=== PATIENT | male | born 1945 | race Caucasian/White ===

== ENCOUNTER 2023-07-16 10:47 | Outpatient (OUT) | payer MEDICARE, SELFPAY ==
[2023-07-16 11:51] LABS: Basophils Percent Auto 0.3 % (0.2-2.0); Eosinophils Absolute Auto 0.1 10^3/uL (0.0-0.7); Hematocrit 29.4 % (42.0-54.0); Immature Granulocytes Abs Auto 0.02 10^3/uL (0.00-0.03); Immature Granulocytes Pct Auto 0.6 % (0.0-0.5); Lymphocytes Absolute Auto 0.4 10^3/uL (1.2-3.8); Lymphocytes Percent Auto 11.5 % (20.5-60.0); Mean Corpuscular Hemoglobin 33.9 pg (25.9-34.0); Mean Corpuscular Volume 99.7 fL (80.0-94.0); Mean Platelet Volume 9.8 fL (9.5-13.5); Monocytes Absolute Auto 0.2 10^3/uL (0.3-0.8); Monocytes Percent Auto 6.4 % (1.7-12.0); Neutrophils Absolute Auto 2.8 10^3/uL (1.4-6.5); Neutrophils Percent Auto 79.2 % (43.0-75.0); Platelet Count 72 10^3/uL (150-450); Red Blood Count 2.95 10^6/uL (4.70-6.10); Red Cell Distribution Width 14.8 % (11.0-15.0); White Blood Count 3.6 10^3/uL (4.0-11.0)
[2023-07-16 12:03] LABS: Estimated Average Glucose 91 mg/dL; Glycohemoglobin A1C 4.8 % (4.5-6.2)
[2023-07-16 12:06] LABS: Alanine Aminotransferase 38 U/L (16-63); Anion Gap 11.7; BUN Creatinine Ratio 28.7; Calcium 9.3 mg/dL (8.5-10.1); Carbon Dioxide 28.3 mmol/L (21.0-32.0); Chloride 107 mmol/L (98-107); Cholesterol 128 mg/dL (<=200); Estimated GFR (African America >60 (>=60); Estimated GFR (Non-African Ame >60 (>=60); Glucose 193 mg/dL (74-106); HDL Cholesterol 63 mg/dL (40-60); Sodium 143 mmol/L (136-145); Triglycerides 104 mg/dL (<=150); VLDL CHOLESTEROL 20.8 mg/dL
[2023-07-16 13:49] LABS: Prostate Specific Antigen Scrn <0.13 ng/mL (<=4.00)
== END 2023-07-16 10:48 | disposition home or self-care (01) ==
PROVIDERS: PCP Internal Medicine; Visit Provider Internal Medicine
DX: E78.00 Pure hypercholesterolemia, unspecified (principal); D61.818 Other pancytopenia; Z12.5 Encounter for screening for malignant neoplasm of prostate; I10 Essential (primary) hypertension; E11.65 Type 2 diabetes mellitus with hyperglycemia
CPT/HCPCS: 36415; 80048; 80061; 83036; 84460; 85025; G0103

== ENCOUNTER 2024-02-14 17:34 | Observation (INO) | payer MEDICARE, SELFPAY ==
[2024-02-14] VITALS (22 sets, daily range): BP systolic 176–205; BP diastolic 60–86; PULSE 72–88; TEMP 37.1–38; O2SAT 96–99; BMI 28.7
--- NOTE | 2024-02-14 17:43 | XR_ITS ---
The [address] [address] Patient Name: NA GOULD MRN: [id number] date: 1945 Sex: M Assigned Patient Location: ER Current Patient Location: ED.MAIN Accession/Order Number: [id number] Exam Date: 02/14/2024 18:02 Report Date: 02/14/2024 18:55 At the request of: JUAN JOSÉ PA Procedure: XR chest 1V EXAM: XR chest 1V HISTORY: weak COMPARISON: 10/04/2022 TECHNIQUE: Chest X-ray AP, 1 view FINDINGS: Support devices: None. Lungs/pleura: No consolidation, effusion, or pneumothorax. Heart and mediastinum: Normal contours. Bones: No acute abnormality identified. XR/XR chest 1V Impression: No radiographic evidence of acute cardiopulmonary process. Electronically authenticated by: MELA MENDOZA Date: 02/14/2024 18:55
--- NOTE | 2024-02-14 17:43 | ECG_ITS ---
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
[2024-02-14 18:07] LABS: Hematocrit 28.2 % (42.0-54.0); Hemoglobin 9.6 g/dL (14.0-18.0); Mean Corpuscular Hemoglobin 34.2 pg (25.9-34.0); Mean Corpuscular Volume 100.4 fL (80.0-94.0); Mean Platelet Volume 10.4 fL (9.5-13.5); Platelet Count 65 10^3/uL (150-450); Red Blood Count 2.81 10^6/uL (4.70-6.10); White Blood Count 4.5 10^3/uL (4.0-11.0)
[2024-02-14 18:16] LABS: Anion Gap 10.1; BUN Creatinine Ratio 25.9; Calcium 8.7 mg/dL (8.5-10.1); Chloride 106 mmol/L (98-107); Estimated GFR (African America >60 (>=60); Estimated GFR (Non-African Ame >60 (>=60); Glucose 251 mg/dL (74-106); Potassium 4.1 mmol/L (3.5-5.1); Sodium 142 mmol/L (136-145)
[2024-02-14 18:23] LABS: Band Neutrophils Absolute 0.1 10^3/uL (0.0-0.3); Basophils Abs Manual 0.04 10^3/uL (0.00-0.10); Lymphocytes Absolute Manual 0.04 10^3/uL (1.20-3.80); Monocytes Absolute Manual 0.18 10^3/uL (0.30-0.80); Segmented Neut Absolute Manual 4.14 10^3/uL (1.4-6.5)
--- NOTE | 2024-02-14 18:52 | ED.WEAKNESS1 ---
HPI - Weakness General Chief complaint: Weakness Stated complaint: WEAKNESS Time Seen by Provider: 02/14/24 17:41 Source: patient Mode of arrival: ambulance History of Present Illness HPI Narrative: 78-year-old male presents to the emergency department for weakness. He was apparently sitting on the toilet for about an hour trying to have a bowel movement. His family thought he was weak and short of breath. He does not seem to have any current complaints. He is a poor historian. He cannot give specifics as to the timeline. Related Data Home Medications ?Medication ?Instructions ?Recorded ?Confirmed allopurinol 300 mg tablet 300 mg PO QDAY 02/14/24 02/14/24 amlodipine 5 mg tablet 5 mg PO QDAY 02/14/24 02/14/24 citalopram 20 mg tablet 20 mg PO QDAY 02/14/24 02/14/24 donepezil 10 mg tablet 10 mg PO .qhs 02/14/24 02/14/24 insulin aspar prot-insulin aspart See Rx Instructions subcut .COMPLEX 02/14/24 02/14/24 100 unit/mL (70-30) subcutaneous pen (Novolog Mix 70-30FlexPen U-100) isosorbide mononitrate 30 mg 30 mg PO QDAY 02/14/24 02/14/24 tablet,extended release 24 hr losartan 50 mg tablet 50 mg PO BID 02/14/24 02/14/24 memantine 28 mg capsule 28 mg PO Q24H 02/14/24 02/14/24 sprinkle,extended release 24hr multivitamin (Daily Multi-Vitamin 1 tab PO DAILY 02/14/24 02/14/24 tablet) oxcarbazepine 300 mg tablet 900 mg PO BID 02/14/24 02/14/24 simvastatin 20 mg tablet 20 mg PO QDAY 02/14/24 02/14/24 Allergies Allergy/AdvReac Type Severity Reaction Status Date / Time Unable to Assess Allergy Verified 02/14/24 17:39 Review of Systems ROS Narrative Unobtainable, age Exam Narrative Exam Narrative: Nurses note and vital signs reviewed and patient is not hypoxic. General: The patient appears well and in no apparent distress. Patient is resting comfortably on cart. Skin: Warm, dry, no pallor noted. There is no rash noted. Head: Normocephalic, atraumatic Eye: Normal conjunctiva, no drainage Ears, Nose, Mouth, and Throat: oral mucosa is moist. Nares patent. Cardiovascular: Regular Rate and Rhythm Respiratory: Patient is in no distress, no accessory muscle use, lungs are clear to auscultation, no wheezing, rales or rhonchi Back: non-tender GI: Soft and nontender Musculoskeletal: The patient has no evidence of calf tenderness, no pitting edema, symmetrical pulses noted bilaterally Neurological: Awake and alert. He can tell me his name he knows he is at the hospital. Psychiatric: Cooperative Constitutional Vital Signs, click to edit/add: Last Vital Signs Temp 98.8 F 02/14/24 17:36 Pulse 74 02/14/24 18:02 Resp 17 02/14/24 18:02 BP 182/81 H 02/14/24 17:41 Pulse Ox 97 02/14/24 18:02 O2 Del Method Room Air 02/14/24 17:36 Course Vital Signs Vital signs: Vital Signs Temperature 98.8 F 02/14/24 17:36 Pulse Rate 74 02/14/24 17:36 Respiratory Rate 24 H 02/14/24 17:36 Blood Pressure 197/60 H 02/14/24 17:36 Pulse Oximetry 98 02/14/24 17:36 Oxygen Delivery Method Room Air 02/14/24 17:36 Temperature 98.8 F 02/14/24 17:36 Pulse Rate 74 02/14/24 18:02 Respiratory Rate 17 02/14/24 18:02 Blood Pressure 182/81 H 02/14/24 17:41 Pulse Oximetry 97 02/14/24 18:02 Oxygen Delivery Method Room Air 02/14/24 17:36 MDM - Weakness MDM Narrative Medical decision making narrative: Tests are ordered and the patient is signed out to Dr. Agustin at change of shift Differential Diagnosis Differential diagnosis: Likely anemia, hypoglycemia and dehydration Lab Data Attestation: I reviewed the patient's lab results. Labs: Lab Results 02/14/24 Range/Units 18:00 WBC 4.5 (4.0-11.0) 10^3/uL RBC 2.81 L (4.70-6.10) 10^6/uL Hgb 9.6 L (14.0-18.0) g/dL Hct 28.2 L (42.0-54.0) % MCV 100.4 H (80.0-94.0) fL MCH 34.2 H (25.9-34.0) pg MCHC 34.0 (29.9-35.2) g/dL RDW 15.0 (11.0-15.0) % Plt Count 65 L (150-450) 10^3/uL MPV 10.4 (9.5-13.5) fL Seg Neuts % (Manual) 92.0 Band Neutrophils % 2.0 (0-5) % Lymphocytes % (Manual) 1.0 L (20.5-60.0) % Monocytes % (Manual) 4.0 (1.7-12.0) % Eosinophils % (Manual) 0.0 L (0.9-7.0) % Basophils % (Manual) 1.0 (0.2-2.0) % Neutrophils # (Manual) 4.14 (1.4-6.5) 10^3/uL Band Neutrophils # 0.1 (0.0-0.3) 10^3/uL Lymphocytes # (Manual) 0.04 L (1.20-3.80) 10^3/uL Monocytes # (Manual) 0.18 L (0.30-0.80) 10^3/uL Eosinophils # (Manual) 0.00 (0.00-0.70) 10^3/uL Basophils # (Manual) 0.04 (0.00-0.10) 10^3/uL Sodium 142 (136-145) mmol/L Potassium 4.1 (3.5-5.1) mmol/L Chloride 106 (98-107) mmol/L Carbon Dioxide 30.0 (21.0-32.0) mmol/L Anion Gap 10.1 BUN 29.0 H (7.0-18.0) mg/dL Creatinine 1.12 (0.70-1.30) mg/dL Est GFR ( Amer) >60 (>=60) Est GFR (Non-Af Amer) >60 (>=60) BUN/Creatinine Ratio 25.9 Glucose 251 H (74-106) mg/dL Calcium 8.7 (8.5-10.1) mg/dL ECG Data Attestation: I personally reviewed and interpreted this ECG as follows: (EKG on my interpretation shows sinus rhythm with first-degree block and no acute change) Discharge Plan Discharge Patient Disposition: Still a Patient
[2024-02-14 20:42] LABS: Bilirubin Urine NEGATIVE (NEGATIVE); Blood Urine LARGE (NEGATIVE); Clarity Urine CLEAR (CLEAR); Color Urine YELLOW (YELLOW); Glucose Urine UA 250 mg/dL (NEGATIVE); Ketones Urine NEGATIVE (NEGATIVE); Leukocyte Esterase Urine NEGATIVE (NEGATIVE); Nitrite Urine POSITIVE (NEGATIVE); Protein Urine >=300 mg/dL (NEG/TRACE); Specific Gravity Urine 1.025 (1.005-1.025); Urobilinogen Urine 0.2 EU/dL (0.2-1.0); pH Urine 5.5 (5.0-9.0)
[2024-02-14 20:50] LABS: Amorphous Sediment Urine FEW; Bacteria Urine LARGE #/HPF (NONE SEEN); Cast Seen? NONE SEEN #/LPF (NONE SEEN); Crystals Seen? Seen #/HPF (None Seen); Mucus Urine NONE SEEN (NONE SEEN); RBC Urine 0-2 #/HPF (0-2); Squamous Epithelial Cell Urine RARE #/LPF (NONE/RARE); Urine Culture Indicated YES
--- NOTE | 2024-02-14 21:03 | CT_ITS ---
The [address] [address] Patient Name: NA GOULD MRN: [id number] date: 1945 Sex: M Assigned Patient Location: ER Current Patient Location: ER Accession/Order Number: [id number] Exam Date: 02/14/2024 21:15 Report Date: 02/14/2024 21:51 At the request of: ANSELMO LOONEY Procedure: CT head/brain wo con EXAM: CT head/brain wo con CLINICAL INDICATION: altered mental state TECHNIQUE: Unenhanced computerized tomography of the head was performed. Automated dose reduction technique was employed. COMPARISON: None. FINDINGS: The ventricles are normal in size, configuration, and position for age. There is no intra- or extra-axial mass, hemorrhage, or fluid collection. No areas of abnormal mass effect or attenuation are noted. There is mild subcortical, deep, and periventricular white matter low-attenuation, compatible with changes of chronic small vessel ischemic disease. Visualized paranasal sinuses are free of mucosal disease. No depressed calvarial fracture. CT/CT head/brain wo con IMPRESSION: No acute intracranial abnormality noted. Electronically authenticated by: CORTEZ MCCARTHY Date: 02/14/2024 21:51
[2024-02-14] MEDS: CEFTRIAXONE 1,000 MG in 0.9 % SODIUM CHLORIDE 50 ML 100 MG IV (21:52)
[2024-02-15 00:23] VITALS: BMI 24.6
[2024-02-15 01:16] VITALS: BP 187/74
[2024-02-15] MEDS: HYDRALAZINE HCL 20 MG/ML VIAL 10 MG IVP ×2 (01:16→06:07)
[2024-02-15] MEDS: DONEPEZIL HCL 10 MG TABLET PO (01:16)
[2024-02-15] MEDS: 0.9 % SODIUM CHLORIDE 1,000 ML 100 ML IV ×2 (01:17→11:17)
[2024-02-15 04:59] VITALS: PULSE 75; TEMP 36.6; O2SAT 98
[2024-02-15 05:39] LABS: Basophils Percent Auto 0.2 % (0.2-2.0); Hematocrit 29.3 % (42.0-54.0); Hemoglobin 9.7 g/dL (14.0-18.0); Immature Granulocytes Abs Auto 0.03 10^3/uL (0.00-0.03); Immature Granulocytes Pct Auto 0.6 % (0.0-0.5); Lymphocytes Absolute Auto 0.2 10^3/uL (1.2-3.8); Lymphocytes Percent Auto 5.1 % (20.5-60.0); Mean Corpuscular HGB Conc 33.1 g/dL (29.9-35.2); Mean Corpuscular Hemoglobin 33.3 pg (25.9-34.0); Mean Corpuscular Volume 100.7 fL (80.0-94.0); Mean Platelet Volume 10.6 fL (9.5-13.5); Monocytes Absolute Auto 0.3 10^3/uL (0.3-0.8); Monocytes Percent Auto 7.2 % (1.7-12.0); Neutrophils Absolute Auto 4.1 10^3/uL (1.4-6.5); Neutrophils Percent Auto 86.9 % (43.0-75.0); Platelet Count 60 10^3/uL (150-450); Red Blood Count 2.91 10^6/uL (4.70-6.10); Red Cell Distribution Width 15.2 % (11.0-15.0); White Blood Count 4.7 10^3/uL (4.0-11.0)
[2024-02-15 06:02] LABS: Alanine Aminotransferase 31 U/L (16-63); Albumin Globulin Ratio 1.1; Albumin Level 3.4 g/dL (3.4-5.0); Alkaline Phosphatase 90 U/L (46-116); Anion Gap 12.4; Aspartate Amino Transferase 28 U/L (15-37); BUN Creatinine Ratio 24.5; Bilirubin Total 0.5 mg/dL (0.2-1.0); Calcium 9.1 mg/dL (8.5-10.1); Carbon Dioxide 28.2 mmol/L (21.0-32.0); Chloride 107 mmol/L (98-107); Estimated GFR (African America >60 (>=60); Estimated GFR (Non-African Ame >60 (>=60); Globulin 3.1 g/dL; Glucose 184 mg/dL (74-106); Potassium 3.6 mmol/L (3.5-5.1); Sodium 144 mmol/L (136-145); Total Protein 6.5 g/dL (6.4-8.2)
[2024-02-15 06:06] VITALS: BP 170/55
[2024-02-15 08:10] VITALS: BP 158/62; PULSE 83; TEMP 36.4; O2SAT 98
[2024-02-15] MEDS: AMLODIPINE BESYLATE 5 MG TABLET PO (08:23)
[2024-02-15] MEDS: MULTIVITAMIN TABLET 1 TAB PO (08:23)
[2024-02-15] MEDS: ALLOPURINOL 300 MG TABLET PO (08:23)
[2024-02-15] MEDS: ATORVASTATIN CALCIUM 10 MG TABLET PO (08:23)
[2024-02-15] MEDS: MEMANTINE HCL 28 MG CAP XR PO (08:23)
[2024-02-15] MEDS: OXcarbazepine 300 MG TABLET 900 MG PO (08:23)
[2024-02-15] MEDS: LOSARTAN POTASSIUM 50 MG TABLET PO (08:23)
[2024-02-15] MEDS: CITALOPRAM HYDROBROMIDE 20 MG TABLET PO (08:23)
[2024-02-15] MEDS: ISOSORBIDE MONONITRATE 30 MG TAB.ER.24H PO (08:23)
[2024-02-15] MEDS: INSULIN ASPART PROT/INSULN ASP 70/30 300 UNIT/3 ML INSULN.PEN 26 UNIT SUBQ (08:24)
[2024-02-15 08:45] LABS: Glucometer 197 mg/dL (74-106)
--- NOTE | 2024-02-15 10:13 | CM.NOTE ---
Rounds made with Dr. Carroll, pt will discharge to home today on oral antibiotics. PT to evaluate prior to discharge for recommendations. Pt will f/u with laboratory tech.
[2024-02-15 11:22] VITALS: BP 157/63; PULSE 65; O2SAT 97
--- NOTE | 2024-02-15 12:05 | SWNOTE1 ---
SW received call from therapy and they are recommending skilled facility for rehab. Case management spoke with pt and as pt is in observation and does not have a medical diagnosis for inpatient. Pt/family would have to pay out of pocket for rehab. They are not able to do this, would like [facility] as he has had them in the past. Referral sent to [facility]. Referral included face sheet, ED note, H&P, provider notes, case management report, PT/OT notes.
[2024-02-15 12:13] LABS: Glucometer 160 mg/dL (74-106)
--- NOTE | 2024-02-15 12:13 | CM.NOTE ---
Discussed with pt and recommendations from PT for skilled therapy. verbalizes understanding and asks if insurance will cover. Explained to about Medicare and 3 day inpatient hospital stay required for pt to meet for inpatient skilled. Explained that pt could go to skilled at discharge but it would be an out of pocket expense. states [facility] and liked the services they offered. tearful regarding stress on her related to pt's dementia. Comfort and support provided to and . Pt and in agreement to discharge home with HH services instead of inpatient skilled therapy.
--- NOTE | 2024-02-15 12:41 | PM.HP ---
HPI H&P: HPI History of Present Illness Chief complaint: WEAKNESS ALTERED MENTAL STATUS Narrative: History of presenting illness and hospital course: 78-year-old male with history of dementia, who lives with his at home was brought in by his for generalized weakness/lightheadedness/dizziness and inability to get up from his bed because of overall weakness. Workup in ED was consistent with possible UTI and patient was started on IV fluids, IV antibiotics and admitted for overnight observation for monitoring. He was seen earlier today and was more or less close to his baseline according to the who was at his bedside. Patient is stable for discharge medically on oral antibiotic. He will benefit from outpatient physical therapy/Occupational Therapy. Opioid HPI Opioid Management Most Recent Opioid Data: Last Pain Assessment 02/15/24 11:19 Last ORT Total Score 0 02/15/24 00:23 Last ORT Risk Category Low Risk 02/15/24 00:23 Review of Systems ROS Status of ROS 10 or more systems reviewed and unremarkable except as noted in history and below [facility] Medical History (Updated 02/15/24 @ 12:48 by Shaikh Glen MD) PE (pulmonary thromboembolism) ?I26.99 - Other pulmonary embolism without acute cor pulmonale (ICD-10) Syncope ?R55 - Syncope and collapse (ICD-10) Dementia ?F03.90 - Unspecified dementia, unspecified severity, without behavioral disturbance, psychotic disturbance, mood disturbance, and anxiety (ICD-10) History of stent insertion of renal artery ?Z98.890 - Other specified postprocedural states (ICD-10) Kidney stone ?N20.0 - Calculus of kidney (ICD-10) Anemia ?D64.9 - Anemia, unspecified (ICD-10) Acute hemorrhoid ?K64.9 - Unspecified hemorrhoids (ICD-10) Colon cancer ?C18.9 - Malignant neoplasm of colon, unspecified (ICD-10) Hypertension ?I10 - Essential (primary) hypertension (ICD-10) Diabetes ?E11.9 - Type 2 diabetes mellitus without complications (ICD-10) Surgical History (Updated 02/15/24 @ 01:52 by Elda Traylor RN) S/P CABG x 4 ?Z95.1 - Presence of aortocoronary bypass graft (ICD-10) History of colon surgery ?Z98.890 - Other specified postprocedural states (ICD-10) Family History (Updated 02/15/24 @ 00:22 by Elda Traylor RN) Uncle Family history of CHF (congestive heart failure) Family history of myocardial infarction Other Family history of COPD (chronic obstructive pulmonary disease) Family history of cancer Social History (Updated 02/15/24 @ 00:23 by Elda Traylor RN) Within the past year, how often did you have a drink containing alcohol: never Within the past year, how many standard drinks containing alcohol did you have on a typical day: 1 or 2 Within the past year, how often did you have six or more drinks on one occasion: never Total score: 0 Score interpretation: A score less than 4 is consistent with normal alcohol consumption. Smoking status: Former smoker Non-prescribed substance use: denies use Highest level of school completed/degree received: high school graduate Are you now , , , , never or living with a partner: In a typical week, how many times do you talk on the telephone with family, friends, or neighbors: twice per week How often do you get together with friends or relatives: twice per week Do you think of yourself as: straight/heterosexual Gender Identity: male Meds Home Medications and Allergies Home Medications ?Medication ?Instructions ?Recorded ?Confirmed ?Type allopurinol 300 mg tablet 300 mg PO QDAY 02/14/24 02/14/24 History amlodipine 5 mg tablet 5 mg PO QDAY 02/14/24 02/14/24 History citalopram 20 mg tablet 20 mg PO QDAY 02/14/24 02/14/24 History donepezil 10 mg tablet 10 mg PO BEDTIME 02/14/24 02/15/24 History insulin aspar prot-insulin aspart See Rx Instructions subcut .COMPLEX 02/14/24 02/14/24 History 100 unit/mL (70-30) subcutaneous pen (Novolog Mix 70-30FlexPen U-100) isosorbide mononitrate 30 mg 30 mg PO QDAY 02/14/24 02/14/24 History tablet,extended release 24 hr losartan 50 mg tablet 50 mg PO BID 02/14/24 02/14/24 History memantine 28 mg capsule 28 mg PO Q24H 02/14/24 02/14/24 History sprinkle,extended release 24hr multivitamin (Daily Multi-Vitamin 1 tab PO DAILY 02/14/24 02/14/24 History tablet) oxcarbazepine 300 mg tablet 900 mg PO BID 02/14/24 02/14/24 History simvastatin 20 mg tablet 20 mg PO QDAY 02/14/24 02/14/24 History cefdinir 300 mg capsule 300 mg PO BID 5 days #10 caps 02/15/24 Rx Allergies Allergy/AdvReac Type Severity Reaction Status Date / Time Unable to Assess Allergy Verified 02/14/24 17:39 Exam Constitutional Vital Signs, click to edit/add: Last Vital Signs Temp 97.5 F L 02/15/24 08:10 Pulse 65 02/15/24 11:22 Resp 16 02/15/24 11:22 BP 157/63 H 02/15/24 11:22 Pulse Ox 97 02/15/24 11:22 O2 Del Method Room Air 02/15/24 11:22 Documenting provider has reviewed patient's vital signs: yes Common normals: no apparent distress and oriented x3 General appearance: cooperative HENMT Common normals: normocephalic and head/scalp atraumatic Head and scalp: normocephalic and atraumatic Eye Common normals: conjunctivae normal and no scleral icterus Conjunctiva: conjunctiva(e) normal Respiratory Common normals: normal respiratory effort and clear to auscultation bilaterally Effort & inspection: able to speak in complete sentences Auscultation: clear to auscultation bilaterally Cardio Common normals: regular rate, S1 normal heart sound and S2 normal heart sound Rate: regular rate Heart sounds: S1 normal and S2 normal GI Common normals: Normal to inspection, nondistended, normoactive bowel sounds present, soft to palpation, non-tender and no hepatosplenomegaly Palpation: soft and no hepatosplenomegaly Extremity Common normals: no clubbing, cyanosis or edema Neuro Common normals: oriented x3, moves all extremities and no focal motor deficits Psych Common normals: mental status grossly normal, denies hallucinations, denies homicidal ideation and denies suicidal ideation Results Labs Labs: Short CBC 02/14/24 02/15/24 Range/Units 18:00 05:10 WBC 4.5 4.7 (4.0-11.0) 10^3/uL Hgb 9.6 L 9.7 L (14.0-18.0) g/dL Hct 28.2 L 29.3 L (42.0-54.0) % Plt Count 65 L 60 L (150-450) 10^3/uL BMP 02/14/24 02/15/24 18:00 05:10 Sodium 142 144 Potassium 4.1 3.6 Chloride 106 107 Carbon Dioxide 30.0 28.2 BUN 29.0 H 24.0 H Creatinine 1.12 0.98 Glucose 251 H 184 H Calcium 8.7 9.1 Liver Function 02/15/24 Range/Units 05:10 Total Bilirubin 0.5 (0.2-1.0) mg/dL AST 28 (15-37) U/L ALT 31 (16-63) U/L Alkaline Phosphatase 90 (46-116) U/L Albumin 3.4 (3.4-5.0) g/dL Urine 02/14/24 Range/Units 20:30 Urine Color Yellow (YELLOW) Urine Clarity Clear (CLEAR) Urine pH 5.5 (5.0-9.0) Ur Specific [place] 1.025 (1.005-1.025) Urine Protein >=300 A (NEG/TRACE) mg/dL Urine Glucose (UA) 250 A (NEGATIVE) mg/dL Assessment and Plan Assessment and Plan (1) Altered mental state: Assessment and Plan: Likely secondary to UTI and dehydration. He was treated with IV fluids and IV Rocephin. Stable for discharge on oral antibiotics. Qualifiers: Altered mental status type: disorientation Qualified Code(s): R41.0 - Disorientation, unspecified (2) Generalized weakness: Assessment and Plan: Dehydration and UTI. I suspect some of it is because of progressive decline in his functional status because of dementia and frailty/old age. He is better than admission. He will benefit from outpatient physical therapy and Occupational Therapy. He is stable for discharge medically on oral antibiotics (3) UTI (urinary tract infection): Assessment and Plan: Initially treated with IV Rocephin. Will discharge on oral cefdinir. Follow-up urine cultures Qualifiers: Urinary tract infection type: acute cystitis Hematuria presence: without hematuria Qualified Code(s): N30.00 - Acute cystitis without hematuria (4) Dementia: Assessment and Plan: Severe dementia with confusion at baseline. On appropriate medications for it. Follow-up with neurology as outpatient Qualifiers: Dementia type: Alzheimer's Alzheimer's disease onset: late onset Dementia severity: severe Dementia behavioral or psychological symptom: without behavioral, psychotic, or mood disturbance or anxiety Qualified Code(s): G30.1 - Alzheimer's disease with late onset; F02.C0 - Dementia in other diseases classified elsewhere, severe, without behavioral disturbance, psychotic disturbance, mood disturbance, and anxiety (5) Anemia: Assessment and Plan: Chronic/stable. Monitor as outpatient. Qualifiers: Anemia type: unspecified type Qualified Code(s): D64.9 - Anemia, unspecified (6) Malnutrition: Assessment and Plan: Poor nutritional status with evidence of muscle wasting/low muscle mass and bitemporal wasting. This is likely because of his age /frailty and dementia. Will benefit from outpatient nutritional evaluation by dietitian. Loss over the past 6 months to 12 months Qualifiers: Malnutrition type: protein-calorie malnutrition Protein-calorie malnutrition severity: moderate Qualified Code(s): E44.0 - Moderate protein-calorie malnutrition (7) Hypertension: Assessment and Plan: Continue with home medications. Monitor as outpatient. Qualifiers: Hypertension type: primary hypertension Qualified Code(s): I10 - Essential (primary) hypertension (8) Diabetes: Assessment and Plan: Continue with home medications. 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
--- NOTE | 2024-02-15 14:39 | CM.NOTE ---
Medicare Outpatient Observation Notice discussed with , verbalizes understanding and signs paper. Original given to pt and copy placed on pt's chart.
--- NOTE | 2024-02-19 13:45 | CM.DCFOLLOWU ---
Person spoke with: patient's How are you feeling? alright How is your pain? no pain Did you understand your discharge instructions? yes Do you have any questions about your discharge instructions? no Were you given any prescriptions at discharge? yes Were you able to get your prescriptions filled? yes Do you understand how to take your medications as ordered? yes Do you have any questions about your follow up appointment and do you plan to keep your follow up appointment? no questions, had to switch follow up to 02/26/24. Has not receive call from [facility], [facility] pt's we will call and check on that Is there anything else that you would like to discuss? no Questions/Comments/Concerns/Other: N/A
== END 2024-02-15 15:14 | disposition home health service (06) ==
LOC: ER 21:01 → MS 23:59
PROVIDERS: Emergency Medicine; Nurse Practitioner Acute Care; Admitting Provider Internal Medicine; Emergency Provider Internal Medicine; PCP Internal Medicine; Visit Provider Internal Medicine
DX: N30.00 Acute cystitis without hematuria (principal); R41.82 Altered mental status, unspecified; R06.02 Shortness of breath; R53.1 Weakness; Z79.4 Long term (current) use of insulin; Z79.899 Other long term (current) drug therapy; Z86.711 Personal history of pulmonary embolism; F03.90 Unspecified dementia, unspecified severity, without behavioral disturbance, psychotic disturbance, mood disturbance, and anxiety; Z87.442 Personal history of urinary calculi; I10 Essential (primary) hypertension; E11.9 Type 2 diabetes mellitus without complications; Z85.038 Personal history of other malignant neoplasm of large intestine; Z95.1 Presence of aortocoronary bypass graft; Z87.891 Personal history of nicotine dependence; E86.0 Dehydration; D64.9 Anemia, unspecified; E44.0 Moderate protein-calorie malnutrition; Z68.24 Body mass index [BMI] 24.0-24.9, adult; B96.20 Unspecified Escherichia coli [E. coli] as the cause of diseases classified elsewhere
CPT/HCPCS: 36415; 51702; 51798; 70450; 71045; 80048; 80053; 81001; 82948; 85007; 85025; 85027; 87086; 87150; 87186; 93005; 96361; 96365; 96375; 96376; 97161; 97165; 97530; 99285; G0378

== ENCOUNTER 2024-02-28 09:45 | Outpatient (REF) | payer MEDICARE, SELFPAY ==
--- OUTSIDE RECORDS SUMMARY | 2024-02-28 10:08 | XMS_ITS | CCD ---
Author Organization [facility] CliniSyoh Care Team Providers Care Director Process Improvement Name Role Phone PHYSICIAN, DEFAULT Unavailable Unavailable PHYSICIAN, DEFAULT Unavailable Unavailable KENNY, JUAN A Unavailable Unavailable PHYSICIAN, DEFAULT Unavailable Unavailable PHYSICIAN, DEFAULT Unavailable Unavailable KENNY, JUAN A Unavailable Unavailable Juan A Cox DO Primary Care Provider REY CRESPO Referring Unavailable JUAN A COX Primary Care Unavailable REY CRESPO Attending Unavailable JUAN A COX Referring Unavailable JUAN A COX Primary Care Unavailable Juan A Cox Unavailable JUAN A COX Primary Care Physician [phone] ELLIS HO Admitting Unavailable ELLIS HO Attending Unavailable KENNY, DR DORADO Primary Care Unavailable BELLA, DR SHAKA Richter Consulting Unavailable GEORGIA, ELLIS Consulting Unavailable GEORGIA, ELLIS Consulting Unavailable BALL, DR DORADO Primary Care Unavailable GEORGIA, ELLIS Attending Unavailable GEORGIA, ELLIS Admitting Unavailable YEFRI, DR DOMINIC Handley Consulting Unavailable KENNY, DR DORADO Primary Care Unavailable YEFRI, DR DOMINIC Handley Attending Unavailable RICE, DR DOMINIC Handley Admitting Unavailable BELLA, DR SHAKA Richter Consulting Unavailable KENNY, DR DORADO Primary Care Unavailable MARCELLO ., ONELIA Admitting Unavailable MARCELLO Curry, ONELIA Attending Unavailable Micheal Olson Consulting Unavailable MARKELL THORNE Consulting Unavailable MARCELLO Curry, ONELIA Consulting Unavailable KENNY, DR DORADO Primary Care Unavailable MICHELE, DR BARRON Ernst Consulting Unavailable FAWWAD, BLACKMON H Admitting Unavailable FAWWAD, BLACKMON H Attending Unavailable KIA JENNINGS Consulting Unavailable FAWWAD, BLACKMON H Consulting Unavailable SISTER, RENE Consulting Unavailable KENNY, DR DORADO Primary Care Unavailable FAWWAD, BLACKMON H Admitting Unavailable FAWWAD, BLACKMON H Attending Unavailable STEFANIE, DR HUTTON Consulting Unavailable FAWWAD, BLACKMON H Consulting Unavailable SYLVESTER BARBOUR Consulting Unavailable SISTER, RENE Consulting Unavailable KENNY, DR DORADO Admitting Unavailable BALL, DR DORADO Attending Unavailable BALL, DR DORADO Primary Care Unavailable KENNY, DR DORADO Consulting Unavailable KENNY, DR DORADO Admitting Unavailable KENNY, DR DORADO Attending Unavailable KENNY, DR DORADO Primary Care Unavailable KENYN, DR DORADO Consulting Unavailable Micheal Olson Consulting Unavailable KENNY, DR DORADO Admitting Unavailable BALL, DR DORADO Attending Unavailable BALL, DR DORADO Primary Care Unavailable BALL, DR DORADO Consulting Unavailable YEFRI, Dominic Handley Attending Unavailable KAROL, CHA Desai Attending Unavailable Allergies Allergy Classification Reported Allergen(s) Allergy Type Date of Onset Reaction(s) Facility (4 sources) neomycin; 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: [NEOMYCIN] Drug Allergy 08-18-2009 [facility] Repository (6 sources) Neomycin; 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: [neomycin] Drug Allergy 08-18-2009 [facility] (3 sources) Simvastatin Drug Allergy Unknown [employer] Other Medications Current Medications Medication Drug Class(es) Dates Sig (Normalized) Sig (Original) allopurinol 300 mg oral tablet (15 sources) Xanthine Oxidase Inhibitor Start: 06-25-2017 take 1 tablet by mouth once daily allopurinol 300 mg Tab 300 mg = 1 tab(s), Oral, Daily, # 90 tab(s), Refills(s) 3, Pharmacy: [facility] ([facility]), 174, cm, 12/05/21 11:35:00 EST, Height/Length Dosing, 70, kg, 12/05/21 11:35:00 EST, Weight Dosing Start Date: 11/20/22 Status: Ordered Comment on above: Take 300 mg by mouth once daily. Amlodipine (13 sources) Dihydropyridine Calcium Channel Emma Start: 12-11-2022 amlodipine Oral, Daily Start Date: 12/11/22 Status: Ordered amLODIPine Besyl ate 5 MG TAKE 1 TABLET ONE TIME DAILY Active aspirin 81 mg oral tablet (3 sources) Platelet Aggregation Inhibitor, Nonsteroidal Anti-inflammatory Drug Start: 01-08-2019 take 1 tablet by mouth once daily aspirin 81 mg oral tablet 81 mg = 1 tab(s), Oral, Daily, Blood Thinner Start Date: 01/08/19 Status: Ordered take 1 tablet by mouth once goldie y aspirin, enteric coated 81 mg EC tablet Take 81 mg by mouth once daily. 0 Active Comment on above: Take 81 mg by mouth once daily. citalopram 20 mg oral tablet (15 sources) Serotonin Reuptake Inhibitor Start: 8 take 1 tablet by mouth once daily citalopram 20 mg Tab 20 mg = 1 tab(s), Oral, Daily Start Date: 03/03/21 Status: Ordered Comment on above: Take 20 mg by mouth once daily. donepezil hydrochloride 10 mg oral tablet (15 sources) Start: 6 take 10 mg by mouth once daily donepezil 10 mg, Oral, Daily, Other (see comment) Start Date: 01/08/19 Status: Ordered Comment on above: Take 10 mg by mouth daily at bedtime. Eye Health Formula (1 source) Start: 9 take 1 capsule by mouth once daily Eye Health Formula 1 cap(s), Oral, Daily, Prophylaxis Start Date: 01/08/19 Status: Ordered 3 ml insulin aspart protamine, human 70 unt/ml / insulin aspart, human 30 unt/ml pen injector (14 sources) Insulin Analog NovoLOG Mix 70/3 0 FlexPen (70-30) 100 UNIT/ML INJECT 28 UNITS UNDER THE SKIN BEFORE BREAKFAST AND 12 UNITS BEFORE EVENING MEAL Active inject 45 [IU] by soares bcutaneous injection twice daily before mealtime, then inject 30 [IU] by subcutaneous injection in the morning insulin 70-30 aspart protamine-aspart (NOVOLOG MIX 70/30) 100 units/mL injection Inject subcutaneously twice daily before meals. Takes 45 units in the morning and 30 unit at supper time. 0 Active Comment on above: Inject subcutaneousl y twice daily before meals. Takes 45 units in the morning and 30 unit at supper time. insulin aspart, human (1 source) Insulin Analog Start: 01-09-20 19 NovoLog Mix 70/30 20 unit(s), SubCutaneous, qAM, Blood glucose Start Date: 01/08/19 Status: Ordered 24 hr isosorbide mononitrate 30 mg extended release oral tablet (15 sources) Nitrate Vasodilator Start: 12-28-19 18 take 1 tablet by mouth once daily in the morning isosorbide mononitrate 30 mg ER Tab 30 mg = 1 tab(s), Oral, qAM Start Date: 03/03/21 Status: Ordered Comment on above: Take 30 mg by mouth once daily. Losartan (15 sources) Angiotensin 2 Receptor Emma Start: 12-12-19 23 losartan Oral, Daily Start Date: 12/11/22 Status: Ordered Start: 08-22-2022 take 1 tablet by alexandre th once daily losartan (COZAAR) 50 mg tablet Take 50 mg by mouth once daily. 0 08/22/2022 Active Losartan Lucas um 50 MG TAKE 1 TABLET TWICE DAILY Active Comment on above: Take 50 mg by mouth once daily. 24 hr memantine hydrochloride 28 mg extended release oral capsule (15 sources) K-fjosfq-H-aspartat e Receptor Antagonist Start: 01-19-20 16 take 28 mg by mouth once daily memantine 28 mg, Oral, Daily, Other (see comment) Start Date: 01/08/19 Status: Ordered Comment on above: 28 mg once daily. Multivitamin, Therapeutic w/ Minerals (1 source) Start: 01-09-20 19 take 1 tablet by mouth once daily Multivitamin, Therapeutic w/ Minerals 1 tab(s), Oral, Daily, Prophylaxis Start Date: 01/08/19 Status: Ordered NovoLog Mix 70/30 FlexPen (1 source) Start: 01-09-20 19 NovoLog Mix 70/30 FlexPen 8 unit(s), SubCutaneous, Supper, Blood glucose Start Date: 01/08/19 Status: Ordered OXcarbazepine 300 mg oral tablet (15 sources) Anti-epileptic Agent Start: 03-10-20 14 take 2 tablets by mouth twice daily oxcarbazepine 300 mg Tab 600 mg = 2 tab(s), Oral, BID Start Date: 03/03/21 Status: Ordered take 1 tablet by alexandre th every twelve hours OXcarbazepine 300 MG 1 tablet Orally Twi ce a day Active Comment on above: Take 300 mg by mouth . Take 2 1/2 tablets in the morning and 2 1/2 tablet at night time. simvastatin 20 mg oral tablet (15 sources) HMG-CoA Reductase Inhibitor Start: 9 take 20 mg by mouth once daily at bedtime simvastatin 20 mg, Oral, Once a day (at bedtime), High cholesterol Start Date: 01/08/19 Status: Ordered Comment on above: Take 20 mg by mouth daily at bedtime. Vitamin E (3 sources) Start: 9 vitamin E 1,000 International_Unit, Oral, Daily, Prophylaxis Start Date: 01/08/19 Status: Ordered VITAMIN E, DL,TO COPHERYL ACET, (VITAMIN E, DL, ACETATE,) 1,000 unit cap Take by mouth. 0 Active Comment on above: Take by mouth. Completed/Discontinued Medications Medication Drug Class(es) Dates Sig (Normalized) Sig (Original) acetaminophen 325 mg / HYDROcodone bitartrate 5 mg oral tablet (2 sources) Opioid Agonist Start: 04-06-2021 HYDROcodone-acetamino phen (NORCO) 5-325 mg per tablet iv contrast (will be provided with radiology test) (2 sources) Start: 07-26-2020 End: 08-30-2022 iv contrast (will be provided with radiology test) CT ABD/PEL -Inject, intravenously, once for 1 dose.No IV access, insert saline lock prior to the beginning of sedation, infusion, injection of imaging exam. Discontinue saline lock post exam. If Pt. has a central line or IVAD, may access for administration according to line specific nursing protocol. Once exam is complete flush line and de-access according to line specific nursing protocol in the CT contrast administration guidelines link. 1 Each 0 07/26/2020 08/30/2022 Discontinued (Discontinued by Patient) Start: 07-26-2020 End: 08-30-2022 iv contrast (will be provide d with radiology test) CT Chest W -Inject, intravenously, once for 1 dose.No IV access, insert saline lock prior to the beginning of sedation, infusion, injection of imaging exam. Discontinue saline lock post exam. If Pt. has a central line or IVAD, may access for administration according to line specific nursing protocol. Once exam is complete flush line and de-access according to line specific nursing protocol in the CT contrast administration guidelines link. 1 Each 0 07/26/2020 08/30/2022 Discontinued (Discontinued by Patient) Comment on above: CT ABD/PEL -Inject, intravenously, once for 1 dose.No IV access, insert saline lock prior to the beginning of sedation, infusion, injection of imaging exam. Discontinue saline lock post exam. If Pt. has a central line or IVAD, may access for administration according to line specific nursing protocol. Once exam is complete flush line and de-access according to line specific nursing protocol in the CT contrast administration guidelines link. CT Chest W -Inject, intravenously, once for 1 dose.No IV access, insert saline lock prior to the beginning of sedation, infusion, injection of imaging exam. Discontinue saline lock post exam. If Pt. has a central line or IVAD, may access for administration according to line specific nursing protocol. Once exam is complete flush line and de-access according to line specific nursing protocol in the CT contrast administration guidelines link. metoprolol tartrate 25 mg oral tablet (13 sources) beta-Adrenergic Emma Start: 4 End: 2 take 1 tablet by mouth twice daily METOPROLOL TARTRATE, SHORT ACTING, 25 mg tablet Take 25 mg by mouth twice daily. 0 05/18/2014 08/30/2022 Discontinued (Discontinued by Patient) Comment on above: Take 25 mg by mouth twice daily. Problems Active Problems Problem Classification Problem Date Documented Da te Episodic/Chronic Anxiety disorders (14 sources) Generalized anxiety disorder; 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: [Generalized anxiety disorder] Chronic Bacterial infection; unspecified site (1 source) Personal history of Methicillin resistant Staphylococcus aureus infection; 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: [PERS HX METHICILLIN RSIST STAPH INF] Onset: 3 Episodic Calculus of urinary tract (6 sources) Kidney stone; 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: [Calculus of kidney] Onset: 3 Episodic Cancer of colon (1 source) Malignant tumor of colon 01-08-2019 Chronic Cancer of colon (10 sources) Personal history of other malignant neoplasm of large intestine; 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: [History of malignant neoplasm of colon] Onset: 3 Episodic Cancer of rectum and anus (3 sources) Malignant tumor of rectum; 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: [Malignant neoplasm of rectum] Onset: 3 10-30-2012 Chronic Coagulation and hemorrhagic disorders (3 sources) Thrombocytopenic disorder; 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: [Thrombocytopenia, unspecified] Onset: 3 11-11-2012 Chronic Conduction disorders (1 source) Atrioventricular block, first degree; 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: [ATRIOVENTRICULAR BLOCK FIRST DEGREE] Onset: 3 Chronic Coronary atherosclerosis and other heart disease (20 sources) Coronary arteriosclerosis; 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: [Atherosclerotic heart disease of [place] coronary artery without angina pectoris] Onset: 4 05-20-2014 Chronic Deficiency and other anemia (7 sources) Other pancytopenia; 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: [Other pancytopenia (HCC)] Onset: 2 Chronic Deficiency and other anemia (12 sources) Pancytopenia; 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: [Other pancytopenia] Chronic Delirium, dementia, and amnestic and other cognitive disorders (20 sources) Dementia associated with another disease; 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: [Dementia in other diseases classified elsewhere without behavioral disturbance] Onset: 2 Chronic Diabetes mellitus with complications (18 sources) Type 2 diabetes mellitus; 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: [Type 2 diabetes mellitus with hyperglycemia] Chronic Diabetes mellitus without complication (1 source) Type 2 diabetes mellitus without complications; 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: [TYPE 2 DM WITHOUT COMPLICATIONS] Onset: 3 Chronic Disorders of lipid metabolism (20 sources) Hypercholesterolemia; 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: [Pure hypercholesterolemia, unspecified] Onset: 3 Chronic Epilepsy; convulsions (8 sources) Epilepsy; 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: [Epilepsy, unspecified, not intractable, without status epilepticus] Onset: 2 12-21-2011 Chronic Epilepsy; convulsions (1 source) Seizure disorder 01-08-2019 Episodic Esophageal disorders (1 source) Gastro-esophageal reflux disease without esophagitis; 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: [GERD WITHOUT ESOPHAGITIS] Onset: 2 Chronic Essential hypertension (20 sources) Essential hypertension; 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: [Essential (primary) hypertension] Onset: 3 Chronic Fluid and electrolyte disorders (1 source) Dehydration; 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: [DEHYDRATION] Onset: 3 Episodic Genitourinary symptoms and ill-defined conditions (3 sources) Urine color abnormal; 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: [Other symptoms and signs involving the genitourinary system] Onset: 4 05-21-2014 Episodic Headache; including migraine (1 source) Headache; including migraine; 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: [HEADACHE UNSPECIFIED] Onset: 3 Heart valve disorders (1 source) Nonrheumatic mitral (valve) insufficiency; 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: [NONRHEUMATIC MITRAL INSUFFICIENCY] Onset: 2 Chronic Hyperplasia of prostate (19 sources) Nocturia due to benign prostatic hypertrophy; 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: [Benign prostatic hyperplasia with lower urinary tract symptoms] Onset: 3 Chronic Other aftercare (12 sources) Long-term current use of insulin; 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: [senior care (current) use of insulin] Episodic Other aftercare (6 sources) senior care (current) use of insulin; 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: [SKILLED NURSING CURRENT USE OF INSULIN] Onset: 3 Episodic Other aftercare (1 source) Other penitentiary (current) drug therapy; 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: [OTH SKILLED NURSING CURRENT DRUG THERAPY] Onset: 3 Episodic Other circulatory disease (1 source) Orthostatic hypotension Episodic Other diseases of kidney and ureters (1 source) Urinary tract obstruction; 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: [Other obstructive and reflux uropathy] Onset: 3 Episodic Other diseases of kidney and ureters (1 source) Hydronephrosis due to ureteral obstruction 01-08-2019 Episodic Other gastrointestinal disorders (1 source) Splenomegaly; 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: [Splenomegaly, not elsewhere classified] Episodic Other nervous system disorders (1 source) Metabolic encephalopathy; 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: [METABOLIC ENCEPHALOPATHY] Onset: 2 Chronic Other screening for suspected conditions (not mental disorders or infectious disease) (2 sources) Blood chemistry abnormal; 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: [Abnormal finding of blood chemistry, unspecified] Episodic Phlebitis; thrombophlebitis and thromboembolism (1 source) Personal history of other venous thrombosis and embolism; 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: [PERS HX OTH VENOUS THROMBOSIS AND EMBO] Onset: 3 Episodic Pulmonary heart disease (3 sources) Pulmonary embolism; 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: [Other pulmonary embolism without acute cor pulmonale] Onset: 4 05-20-2014 Episodic Residual codes; unclassified (12 sources) Obstructive sleep apnea syndrome; 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: [Obstructive sleep apnea (adult) (pediatric)] Chronic Residual codes; unclassified (3 sources) Obstructive sleep apnea (adult) (pediatric) Chronic Residual codes; unclassified (1 source) Sleep apnea 01-08-2019 Chronic Residual codes; unclassified (1 source) Memory impairment 01-08-2019 Episodic Residual codes; unclassified (1 source) Acquired absence of other specified parts of digestive tract; 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: [ACQ ABSENCE OT PART DIGESTV TRACT] Onset: 3 Episodic Screening and history of mental health and substance abuse codes (1 source) Personal history of nicotine dependence; 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: [PERSONAL HISTORY OF NICOTINE DEPEND] Onset: 3 Episodic Syncope (4 sources) Syncope and collapse; 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: [SYNCOPE AND COLLAPSE] Onset: 2 Episodic Unclassified (1 source) CONTACT W/AND (SUSP) EXPOS COVID-19; 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: [CONTACT W/AND (SUSP) EXPOS COVID-19] Onset: 3 Viral infection (5 sources) COVID-19; 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: [COVID-19] Onset: 2 Past or Other Problems Problem Classification Problem Date Documented Da te Episodic/Chronic Coronary atherosclerosis and other heart disease (1 source) Presence of aortocoronary bypass graft; 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: [PRESENCE AORTOCORONARY BYPASS GRAFT] Onset: 05-09-2022 Episodic Immunizations and screening for infectious disease (1 source) Encounter for immunization; 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: [ENCOUNTER FOR IMMUNIZATION] Onset: 05-09-2022 Episodic Nonspecific chest pain (5 sources) Precordial pain; 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: [Chest pain, unspecified] Onset: 03-27-2022 Episodic Other aftercare (1 source) oil heaterman (current) use of aspirin; 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: [SKILLED NURSING CURRENT USE OF ASPIRIN] Onset: 05-09-2022 Episodic Other lower respiratory disease (1 source) Dyspnea, unspecified; 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: [DYSPNEA UNSPECIFIED] Onset: 03-30-2022 Episodic Other lower respiratory disease (1 source) Shortness of breath; 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: [SHORTNESS OF BREATH] Onset: 02-20-2022 Episodic Other nervous system disorders (5 sources) Tremor, unspecified; 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: [TREMOR UNSPECIFIED] Onset: 02-15-2022 Episodic Residual codes; unclassified (3 sources) Disorientation, unspecified; 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: [DISORIENTATION UNSPECIFIED] Onset: 05-03-2022 Episodic Unclassified (1 source) Home continuous positive airway pressure unit (physical object) 01-08-2019 Unclassified (1 source) Long-term current use of insulin 01-08-2019 Urinary tract infections (1 source) Urinary tract infection, site not specified; 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: [UTI SITE NOT SPECIFIED] Onset: 05-09-2022 Episodic Results Test Name Value Interpretation Reference Range Facility Screenson 12-12-2022 Screens [id number]# 1.00CD:127 Normal [facility] Ambulatory Visit Summaryon 0 12-11-2022 Ambulatory Visit Summary BRIAN GOULD :1945 Visit Date:12/11/2022 Ambulatory Visit Instructions Your Diagnosis BPH with obstruction/lower urinary tract symptoms Kidney stones Other obstructive and reflux uropathy Your Care Team Attending Physician - Dominic CASTELLANOS MD Primary Care Physician - JUAN A COX DO This Is Your Medications List allopurinol (allopurinol 300 mg Tab) Contact prescribing physician if questions or concerns amlodipine aspirin (aspirin 81 mg oral tablet) citalopram (citalopram 20 mg Tab) donepezil insulin aspart-insulin aspart protamine (NovoLog Mix 70/30 FlexPen) insulin aspart-insulin aspart protamine (NovoLog Mix 70/30) isosorbide mononitrate (isosorbide mononitrate 30 mg ER Tab) losartan memantine multivitamin with minerals (Eye Health Formula) multivitamin with minerals (Multivitamin, Therapeutic w/ Minerals) oxcarbazepine (oxcarbazepine 300 mg Tab) simvastatin vitamin E Procedures Performed ESWL of kidney (04/06/2021), Cystoscopy, Rightt retrograde, J stent, ESWL (01/31/2019), CABG x 4 - Coronary artery bypass grafts x 4, Cataract extraction, Colonoscopy, Repair of inguinal hernia. Discharge Vitals Height 174 cm Height 69 in Weight 70.0 kg Weight 154 lb BMI 23.12 What to do next You Need to Schedule the Following Appointments Follow Up with YEFRI HUIZAR, Dominic Handley, ROSALINDA When: Only if needed Comments: PRN Where: [address] [place] [address]- Medications What How Much When Instructions Unchanged allopurinol (allopurinol 300 mg Tab) 1 Tablets By Mouth Every day Unchanged amlodipine By Mouth Every day Contact prescribing physician if questions or concerns Unchanged aspirin (aspirin 81 mg oral tablet) 1 Tablets By Mouth Every day Contact prescribing physician if questions or concerns Unchanged citalopram (citalopram 20 mg Tab) 1 Tablets By Mouth Every day Contact prescribing physician if questions or concerns Unchanged donepezil 10 Milligram By Mouth Every day Contact prescribing physician if questions or concerns Unchanged insulin aspart-insulin aspart protamine (NovoLog Mix 70/ 30 FlexPen) 8 Units Subcutaneous Once daily with supper Contact prescribing physician if questions or concerns Unchanged insulin aspart-insulin aspart protamine (NovoLog Mix 70/ 30) 20 Units Subcutaneous Once a day (in the morning) Contact prescribing physician if questions or concerns Unchanged isosorbide mononitrate (isosorbide mononitrate 30 mg ER Tab) 1 Tablets By Mouth Once a day (in the morning) Contact prescribing physician if questions or concerns Unchanged losartan By Mouth Every day Contact prescribing physician if questions or concerns Unchanged memantine 28 Milligram By Mouth Every day Contact prescribing physician if questions or concerns Unchanged multivitamin with minerals (Eye Health Formula) 1 Capsules By Mouth Every day Contact prescribing physician if questions or concerns Unchanged multivitamin with minerals (Multivitamin, Therapeutic w/ Minerals) 1 Tablets By Mouth Every day Contact prescribing physician if questions or concerns Unchanged oxcarbazepine (oxcarbazepine 300 mg Tab) 2 Tablets By Mouth 2 times a day Contact prescribing physician if questions or concerns Unchanged simvastatin 20 Milligram By Mouth Once a day (at bedtime) Contact prescribing physician if questions or concerns Unchanged vitamin E 1,000 International unit By Mouth Every day Contact prescribing physician if questions or concerns Allergies neomycin (rash) Problems Ongoing - Any problem that you are currently receiving treatment for. BPH with obstruction/lower urinary tract symptoms CAD - Coronary artery disease HTN - Hypertension Hyperlipidemia Kidney stones Historical - Any problem that you are no longer receiving treatment for. CA - Cancer of colon Diabetes mellitus type II Epilepsy Home CPAP unit Long-term current use of insulin Seizure disorder Sleep apnea Education Materials Dietary Guidelines to Help Prevent Kidney Stones Kidney stones are deposits of minerals and salts that form inside your kidneys. Your risk of developing kidney stones may be greater depending on your diet, your lifestyle, the medicines you take, and whether you have certain medical conditions. Most people can reduce their chances of developing kidney stones by following the instructions below. Depending on your overall health and the type of kidney stones you tend to develop, your dietitian may give you more specific instructions. What are tips for following this plan? Reading food labels ? Choose foods with no salt added or low-salt labels. Limit your sodium intake to less than 1500 mg per day. ? Choose foods with calcium for each meal and snack. Try to eat about 300 mg of calcium at each meal. Foods that contain 200?500 mg of calcium per serving include: ? 8 oz (237 ml) of milk, fortified nondairy milk, and fortified (more content not included)... Normal [facility] Lab Reportson 12-11-2022 Lab Reports [id number] #1.00CD:127 Normal [facility] Patient Educationon 12-12-19 Patient Education Urology Dietary Guidelines to Help Prevent Kidney Stones Kidney stones are deposits of minerals and salts that form inside your kidneys. Your risk of developing kidney stones may be greater depending on your diet, your lifestyle, the medicines you take, and whether you have certain medical conditions. Most people can reduce their chances of developing kidney stones by following the instructions below. Depending on your overall health and the type of kidney stones you tend to develop, your dietitian may give you more specific instructions. What are tips for following this plan? Reading food labels ? Choose foods with no salt added or low-salt labels. Limit your sodium intake to less than 1500 mg per day. ? Choose foods with calcium for each meal and snack. Try to eat about 300 mg of calcium at each meal. Foods that contain 200?500 mg of calcium per serving include: ? 8 oz (237 ml) of milk, fortified nondairy milk, and fortified fruit juice. ? 8 oz (237 ml) of kefir, yogurt, and soy yogurt. ? 4 oz (118 ml) of tofu. ? 1 oz of cheese. ? 1 cup (300 g) of dried figs. ? 1 cup (91 g) of cooked broccoli. ? 1?3 oz can of sardines or mackerel. ? Most people need 1000 to 1500 mg of calcium each day. Talk to your dietitian about how much calcium is recommended for you. Shopping ? Buy plenty of fresh fruits and vegetables. Most people do not need to avoid fruits and vegetables, even if they contain nutrients that may contribute to kidney stones. ? When shopping for convenience foods, choose: ? Whole pieces of fruit. ? Premade salads with dressing on the side. ? Low-fat fruit and yogurt smoothies. ? Avoid buying frozen meals or prepared deli foods. ? Look for foods with live cultures, such as yogurt and kefir. Cooking ? Do not add salt to food when cooking. Place a salt shaker on the table and allow each person to add his or her own salt to taste. ? Use vegetable protein, such as beans, textured vegetable protein (TVP), or tofu instead of meat in pasta, casseroles, and soups. Meal planning ? Eat less salt, if told by your dietitian. To do this: ? Avoid eating processed or premade food. ? Avoid eating fast food. ? Eat less animal protein, including cheese, meat, poultry, or fish, if told by your dietitian. To do this: ? Limit the number of times you have meat, poultry, fish, or cheese each week. Eat a diet free of meat at least 2 days a week. ? Eat only one serving each day of meat, poultry, fish, or seafood. ? When you prepare animal protein, cut pieces into small portion sizes. For most meat and fish, one serving is about the size of one deck of cards. ? Eat at least 5 servings of fresh fruits and vegetables each day. To do this: ? Keep fruits and vegetables on hand for snacks. ? Eat 1 piece of fruit or a handful of berries with breakfast. ? Have a salad and fruit at lunch. ? Have two kinds of vegetables at dinner. ? Limit foods that are high in a substance called oxalate. These include: ? Spinach. ? Rhubarb. ? Beets. ? Potato chips and argentine fries. ? Nuts. ? If you regularly take a diuretic medicine, make sure to eat at least 1?2 fruits or vegetables high in potassium each day. These include: ? Avocado. ? Banana. ? Wink, prune, carrot, or tomato juice. ? Baked potato. ? Cabbage. ? Beans and split peas. General instructions ? Drink enough fluid to keep your urine clear or pale yellow. This is the most important thing you can do. ? Talk to your health care provider and dietitian about taking daily supplements. Depending on your health and the cause of your kidney stones, you may be advised: ? Not to take supplements with vitamin C. ? To take a calcium supplement. ? To take a daily probiotic supplement. ? To take other supplements such as magnesium, fish oil, or vitamin B6. ? Take all medicines and supplements as told by your health care provider. ? Limit alcohol intake to no more than 1 drink a day for non women and 2 drinks a day for men. One drink equals 12 oz of beer, 5 oz of wine, or 1? oz of hard liquor. ? Lose weight if told by your health care provider. Work with your dietitian to find strategies and an eating plan that works best for you. What foods are not recommended? Limit your intake of the following foods, or as told by your dietitian. Talk to your dietitian about specific foods you should avoid based on the type of kidney stones and your overall health. Grains Breads. Bagels. Rolls. Baked goods. Salted crackers. Cereal. Pasta. Vegetables Spinach. Rhubarb. Beets. Canned vegetables. Pickles. Olives. Meats and other protein foods Nuts. Nut butters. Large portions of meat, poultry, or fish. Salted or cured meats. Deli meats. Hot dogs. Sausages. Dairy Cheese. Beverages Regular soft drinks. Regular vegetable juice. Seasonings and other foods Seasoning blends with salt. Salad dr (more content not included)... Normal [facility] RAD - MISCon 12-11-2022 [facility] [id number] Normal [facility] Urology Office/Clinic Noteon 12-11-2022 Urology Office/Clinic Note Chief Complaint pt here today for a 1 yr f/u to a PSA HPI Staff Pt is a 77 yr old Male here today for a 1yr f/u to a PSA. Pts previous PSA 0.05 done 02/10/21. Current PSA 0.05 done 12/08/22. KUB done 12/08/22 Pts previous DX: BPH with obstruction/lower urinary tract symptoms, kidney stones. S/P ESWL 04/06/21. Dysuria: denies Incomplete bladder emptying: denies Hematuria: denies Frequency: denies Urgency: denies Nocturia: 1 time per night Stream: moderate stream, no stop start Leaking: denies Post void dripping: denies Wearing pads/ Depends: denies Urge incontinence: denies Stress incontinence: denies Incontinence without Sensory Awareness: denies Abdominal pain: denies Flank pain: denies Sexual complaints: denies History of Present Illness I have reviewed and verified the staff HPI to be accurate for this encounter. I have reviewed the previous health record information and history for this patient from Dr. Castellanos There have been no associated fever, chills, flank pain, or blood in the urine. Denies any urinary infections since last encounter. Review of Systems PHQ Score Initial Depression Screen Score: 0 ROS - Provider Constitutional: denies weight loss, denies hot flashes. Eyes: denies eye problems. Gastrointestinal: denies nausea, denies vomiting. Cardiovascular: denies chest pain or angina. Integumentary: no dryness Musculoskeletal: denies musculoskeletal symptoms. ENMT: denies otolaryngeal symptoms. Respiratory: no shortness of breath. Heme/Lymph: denies easy bleeding tendency, denies easy bruising tendency. Psychiatric: no confusion, no anxiety. Genitourinary: denies dysuria, denies hematuria, denies discharge, denies urinary frequency, denies urinary hesitancy, denies nocturia, denies incontinence, denies genital sores, denies decreased libido, and denies erectile dysfunction. Physical Exam Vitals & Measurements HT: 69 in HT: 174 cm WT: 70.0 kg WT: 154 lb BMI: 23.12 General Appearance: alert, no distress, well nourished, well developed male. Genitourinary: normal scrotum, normal testes, normal urethra, normal epididymis, normal vas deferens/spermatic cord. Flank Pain: none. Bladder: nonpalpable. Assessment/Plan 1. BPH with obstruction/lower urinary tract symptoms (N40.1: Benign prostatic hyperplasia with lower urinary tract symptoms) IPSS(8) Pt was unable to leave a urine sample today He is currently not on any BPH medications at this time. He stated he is urinating fine and have no bothersome urinary complaints at this time. PSA 12/08/22- 0.05 02/10/21- 0.05 PSA has remained stable within normal range. Discussed with pt that he can have his PCP check his PSA from here on out annually, and if his PSA increases to a concerning level, he can contact our office. Pt agrees with this plan. All questions and concerns were discussed. Pt acknowledge and understands. Pt will call our office with any changes in urinary symptoms. 2. Kidney stones (N20.0: Calculus of kidney) S/P ESWL 04/06/21. KUB done 12/08/22- showed bilateral nephrolithiasis PT denies any stone complications since last office encounter. Will continue Allopurinol 300mg QD therapy. He is aware that he does have stones in both kidneys that he can past at any given time, that may or may not cause any pain. Encouraged pt to increase his fluid intake by drinking plenty of water to help prevent forming any new kidney stones. PT will f/u with our office PRN. He is aware that if he develops any stone complications he can contact our office. Pt agrees with this plan. Other obstructive and reflux uropathy (N13.8: Other obstructive and reflux uropathy) Interesting patient has been on long-term intermittent allopurinol and his KUB shows stasis that the stones they are stable there is no change in his had no issues no pains no problems no colic. His PSA remains unremarkable 0.05 his IPSS score is 8 so he is voiding well without difficulty. He has no particular issues I think he should stay on his allopurinol and he could follow-up with his family doctor in the future. They were most concerned with his PSA and I said it is 0.05 chance of having prostate cancer is virtually 0C as needed Follow-up With When Contact Information YEFRI HUIZAR, Dominic Handley, URL Only if needed [address] [place] [address]- Additional Instructions: PRN Patient Education Dietary Guidelines to Help Prevent Kidney Stones I, Annemarie Braun, personally scribed for Dr. Castellanos on 12/11/2022 13:48:15. . Documentation recorded by the scribe, Amberly Bermudez, accurately reflects the services(s) I performed and decisions made by me. Authenticated by Dr. Castellanos on 12/11/2022 13:59:21. Problem List/Past Medical History Ongoing BPH with obstruction/lower urinary tract symptoms CAD - Coronary artery disease HTN - Hypertension Hyperlipidemia Kidney stones Historical CA - Cancer o (more content not included)... Normal [facility] Comment on above: Result Comment: Elec tronically Signed By: Dominic CASTELLANOS MD\.br\Date and Time Signed: 12/11/22 13:59 EST\.br\Electronically Co-Signed By: Annemarie Braun\.br\Date and Time Co-Signed: 12/11/22 13:48 EST XR KUB 1 VIEWon 12-09-2022 XR KUB 1 VIEW EXAMINATION: XR KUB 1 VIEW HISTORY: Kidney stone COMPARISON: No relevant comparison available. FINDINGS: KIDNEY/URETER - RIGHT: Multiple nephroliths KIDNEY/URETER - LEFT: Multiple nephroliths PELVIS: No visible ureteral calcifications. Any visible calcifications favor phleboliths. BOWEL: No abnormal dilation or deviation. BONES: Moderate degenerative changes. Bilateral hip osteoarthropathy OTHER: Splenic calcifications. Vascular calcifications IMPRESSION: Bilateral nephrolithiasis Electronically authenticated by: SHAKA BLANCO Date: 2022-12-09 12:10 Normal [facility] OXCARBAZEPINE / TRILEPTALon 11-10-2022 Oxcarbazepine 40 ug/mL Critically high 10-35 [facility] Comment on above: Result Comment: This test was developed and its performance characteristics determined by [facility]. It has not been cleared or approved by the Food and Drug Administration. Detection Limit = 1 Performed By: #### B MP #### [facility] [address] [place] [address] Dr. Kelly Mukherjee CBC AUTO DIFFon 10-05-2022 BASO # 0.0 103/ul Normal 0.0-0.1 [facility] Comment on above: Performed By: #### B MP #### [facility] [address] [place] [address] Dr. Kelly Mukherjee Basophils/100 WBC (Bld) 0.3 % Normal 0.2-2.0 [facility] Comment on above: Performed By: #### B MP #### [facility] [address] [place] [address] Dr. Kelly Mukherjee EO # 0.1 103/ul Normal 0.0-0.7 [facility] Comment on above: Performed By: #### B MP #### [facility] [address] [place] [address] Dr. Kelly Mukherjee Eosinophils/100 WBC (Bld) 2.2 % Normal 0.9-7.0 [facility] Comment on above: Performed By: #### B MP #### [facility] [address] [place] [address] Dr. Kelly Mukherjee Erythrocyte distribution width (RBC) [Ratio] 14.8 % Normal 11.0-15.0 [facility] Comment on above: Performed By: #### B MP #### [facility] [address] [address] [address] Kelly Mukherjee Hematocrit (Bld) [Volume fraction] 29.5 % Critically low 42.0-54.0 [facility] Comment on above: Performed By: #### B MP #### [facility] [address] [place] [address] Dr. Kelly Mukherjee Hemoglobin (Bld) [Mass/Vol] 10.3 g/dL Critically low 14.0-18.0 [facility] Comment on above: Performed By: #### B MP #### [facility] [address] [address] [address] Kelly Mukherjee IG # 0.01 10e3/ul Normal 0.00-0.03 [facility] Comment on above: Performed By: #### B MP #### [facility] [address] [place] [address] Dr. Kelly Mukherjee IG % 0.3 % Normal 0.0-0.5 [facility] Comment on above: Performed By: #### B MP #### [facility] [address] [place] [address] Dr. Kelly Mukherjee LYMPH # 0.5 103/ul Critically low 1.2-3.8 [facility] Comment on above: Performed By: #### B MP #### [facility] [address] [place] [address] Dr. Kelly Mukherjee Lymphocytes/100 WBC (Bld) 16.0 % Critically low 20.5-60.0 [facility] Comment on above: Performed By: #### B MP #### [facility] [address] [place] [address] Dr. Kelly Mukherjee MANUAL DIFF REQ NO Normal [facility] Comment on above: Performed By: #### B MP #### [facility] [address] [place] [address] Dr. Kelly Mukherjee MCH (RBC) [Entitic mass] 34.1 pg Critically high 25.9-34.0 [facility] Comment on above: Performed By: #### B MP #### [facility] [address] [place] [address] Dr. Kelly Mukherjee MCHC (RBC) [Mass/Vol] 34.9 g/dL Normal 29.9-35.2 [facility] Comment on above: Performed By: #### B MP #### [facility] [address] [address] [address] Kelly Mukherjee MCV (RBC) [Entitic vol] 97.7 fL Critically high 80.0-94.0 [facility] Comment on above: Performed By: #### B MP #### [facility] [address] [place] [address] Dr. Kelly Mukherjee MONO # 0.2 103/ul Critically low 0.3-0.8 [facility] Comment on above: Performed By: #### B MP #### [facility] [address] [place] [address] Dr. Kelly Mukherjee Monocytes/100 WBC (Bld) 5.8 % Normal 1.7-12.0 [facility] Comment on above: Performed By: #### B MP #### [facility] [address] [place] [address] Dr. Kelly Mukherjee NEUT # 2.4 103/ul Normal 1.4-6.5 [facility] Comment on above: Performed By: #### B MP #### [facility] [address] [place] [address] Dr. Kelly Mukherjee Neutrophils/100 WBC (Bld) 75.4 % Critically high 43.0-75.0 [facility] Comment on above: Performed By: #### B MP #### [facility] [address] [place] [address] Dr. Kelly Mukherjee Platelet mean volume (Bld) [Entitic vol] 10.1 fL Normal 9.5-13.5 [facility] Comment on above: Performed By: #### B MP #### [facility] [address] [place] [address] Dr. Kelly Mukherjee PLT 63 103/ul Critically low 150-450 [facility] Comment on above: Performed By: #### B MP #### [facility] [address] [place] [address] Dr. Kelly Mukherjee RBC 3.02 106/ul Critically low 4.70-6.10 [facility] Comment on above: Performed By: #### B MP #### [facility] [address] [place] [address] Dr. Kelly Mukherjee WBC 3.1 103/ul Critically low 4.0-11.0 [facility] Comment on above: Performed By: #### B MP #### [facility] [address] [place] [address] Dr. Kelly Mukherjee ER URINE PROFILEon 2 Bilirubin Ql (U) Negative Normal NEGATIVE [facility] Comment on above: Performed By: #### B MP #### [facility] [address] [place] [address] Dr. Kelly Mukherjee Clarity (U) CLEAR Normal CLEAR [facility] Comment on above: Performed By: #### B MP #### [facility] [address] [place] [address] Dr. Kelly Mukherjee Color (U) LT. YELLOW Normal YELLOW [facility] Comment on above: Performed By: #### B MP #### [facility] [address] [place] [address] Dr. Kelly CARTER A micrscopic examination will be performed if indicated. Normal [facility] Comment on above: Performed By: #### B MP #### [facility] [address] [place] [address] Dr. Kelly Mukherjee Glucose Ql (U) 250 mg/dl Abnormal NEGATIVE [facility] Comment on above: Performed By: #### B MP #### [facility] [address] [place] [address] Dr. Kelly Mukherjee Hemoglobin Ql (U) Negative Normal NEGATIVE [facility] Comment on above: Performed By: #### B MP #### [facility] [address] [place] [address] Dr. Kelly Mukherjee Ketones Ql (U) Negative Normal NEGATIVE [facility] Comment on above: Performed By: #### B MP #### [facility] [address] [place] [address] Dr. Kelly Mukherjee LEUKOCYTES Negative Normal NEGATIVE [facility] Comment on above: Performed By: #### B MP #### [facility] [address] [address] [address] Kelly Mukherjee Nitrite Ql (U) Negative Normal NEGATIVE [facility] Comment on above: Performed By: #### B MP #### [facility] [address] [address] [address] Kelly Mukherjee pH (U) 7.0 [pH] Normal 5-9 [facility] Comment on above: Performed By: #### B MP #### [facility] [address] [address] [address] Kelly Mukherjee Protein (U) [Mass/Vol] 100 mg/dL Abnormal NEGAT NADER/ TRACE [facility] Comment on above: Performed By: #### B MP #### [facility] [address] [place] [address] Dr. Kelly Mukherjee SPEC GRAVITY 1.020 Normal 1.005-<=1.025 [facility] Comment on above: Performed By: #### B MP #### [facility] [address] [address] [address] Kelly Mukherjee UR MICRO IND NOT INDICATED Normal [facility] Comment on above: Performed By: #### B MP #### [facility] [address] [place] [address] Dr. Kelly Mukherjee Urobilinogen Qn (U) 0.2 {Jun'U}/dL Normal 0.2 - 1. 0 [facility] Comment on above: Performed By: #### B MP #### [facility] [address] [place] [address] Dr. Kelly Mukherjee POINT OF CARE GLUCOSEon 09-08 Glucose [Mass/Vol] 253 mg/dL Critically high 74-106 T [facility] Comment on above: Performed By: #### P OCGLUC #### [facility] [address] [place] [address] Dr. Kelly Mukherjee PROF CHEM 8 (BAS METB)on Anion gap [Moles/Vol] 8.5 mmol/L Normal [facility] Comment on above: Performed By: #### B MP #### [facility] [address] [address] [address] Kelly Mukherjee Calcium [Mass/Vol] 8.7 mg/dL Normal 8.5-10.1 [facility] Comment on above: Performed By: #### B MP #### [facility] [address] [address] [address] Kelly Mukherjee Chloride [Moles/Vol] 106 mmol/L Normal 98-107 [facility] Comment on above: Performed By: #### B MP #### [facility] [address] [address] [address] Kelly Mukherjee CO2 [Moles/Vol] 29.0 mmol/L Normal 21.0-32.0 [facility] Comment on above: Performed By: #### B MP #### [facility] [address] [place] [address] Dr. Kelly Mukherjee Creatinine [Mass/Vol] 0.84 mg/dL Normal 0.70-1.30 [facility] Comment on above: Performed By: #### B MP #### [facility] [address] [place] [address] Dr. Kelly Mukherjee EGFR-AF [place]ER >60 Normal >=60 [facility] Comment on above: Performed By: #### B MP #### [facility] [address] [place] [address] Dr. Kelly Mukherjee EGFR-NON AF [place]ER >60 Normal >=60 [facility] Comment on above: Performed By: #### B MP #### [facility] [address] [address] [address] Kelly Mukherjee Glucose [Mass/Vol] 119 mg/dL Critically high 74-106 [facility] Comment on above: Performed By: #### B MP #### [facility] [address] [place] [address] Dr. Kelly Mukherjee Potassium [Moles/Vol] 3.5 mmol/L Normal 3.5-5.1 [facility] Comment on above: Performed By: #### B MP #### [facility] [address] [address] [address] Kelly Mukherjee Sodium [Moles/Vol] 140 mmol/L Normal 136-145 [facility] Comment on above: Performed By: #### B MP #### [facility] [address] [place] [address] Dr. Kelly Mukherjee Urea nitrogen [Mass/Vol] 21.0 mg/dL Critically high 7.0-18.0 [facility] Comment on above: Performed By: #### B MP #### [facility] [address] [place] [address] Dr. Kelly Mukherjee Urea nitrogen/Creatinine [Mass ratio] 25.0 mg/mg Normal [facility] Comment on above: Performed By: #### B MP #### [facility] [address] [place] [address] Dr. Kelly Mukherjee CBC AUTO DIFFon 10-04-2022 BASO # 0.0 103/ul Normal 0.0-0.1 [facility] Comment on above: Performed By: #### P OCGLUC #### [facility] [address] [place] [address] Dr. Kelly Mukherjee Basophils/100 WBC (Bld) 0.2 % Normal 0.2-2.0 [facility] Comment on above: Performed By: #### P OCGLUC #### [facility] [address] [place] [address] Dr. Kelly Mukherjee EO # 0.0 103/ul Normal 0.0-0.7 [facility] Comment on above: Performed By: #### P OCGLUC #### [facility] [address] [place] [address] Dr. Kelly Mukherjee Eosinophils/100 WBC (Bld) 1.0 % Normal 0.9-7.0 [facility] Comment on above: Performed By: #### P OCGLUC #### [facility] [address] [place] [address] Dr. Kelly Mukherjee Erythrocyte distribution width (RBC) [Ratio] 15.1 % Critically high 11.0-15.0 [facility] Comment on above: Performed By: #### P OCGLUC #### [facility] [address] [address] [address] Kelly Mukherjee Hematocrit (Bld) [Volume fraction] 30.3 % Critically low 42.0-54.0 [facility] Comment on above: Performed By: #### P OCGLUC #### [facility] [address] [address] [address] Kelly Mukherjee Hemoglobin (Bld) [Mass/Vol] 10.7 g/dL Critically low 14.0-18.0 [facility] Comment on above: Performed By: #### P OCGLUC #### [facility] [address] [address] [address] Kelly Mukherjee IG # 0.01 10e3/ul Normal 0.00-0.03 [facility] Comment on above: Performed By: #### P OCGLUC #### [facility] [address] [address] [address] Kelly Mukherjee IG % 0.2 % Normal 0.0-0.5 [facility] Comment on above: Performed By: #### P OCGLUC #### [facility] [address] [address] [address] Kelly Mukherjee LYMPH # 0.4 103/ul Critically low 1.2-3.8 [facility] Comment on above: Performed By: #### P OCGLUC #### [facility] [address] [address] [address] Kelly Mukherjee Lymphocytes/100 WBC (Bld) 8.9 % Critically low 20.5-60.0 [facility] Comment on above: Performed By: #### P OCGLUC #### [facility] [address] [address] [address] Kelly Mukherjee MANUAL DIFF REQ NO Normal [facility] Comment on above: Performed By: #### P OCGLUC #### [facility] [address] [address] [address] Kelly Mukherjee MCH (RBC) [Entitic mass] 34.1 pg Critically high 25.9-34.0 [facility] Comment on above: Performed By: #### P OCGLUC #### [facility] [address] [address] [address] Kelly Mukherjee MCHC (RBC) [Mass/Vol] 35.3 g/dL Critically high 29.9-35.2 [facility] Comment on above: Performed By: #### P OCGLUC #### [facility] [address] [address] [address] Kelly Mukherjee MCV (RBC) [Entitic vol] 96.5 fL Critically high 80.0-94.0 [facility] Comment on above: Performed By: #### P OCGLUC #### [facility] [address] [place] [address] Dr. Kelly Mukherjee MONO # 0.2 103/ul Critically low 0.3-0.8 [facility] Comment on above: Performed By: #### P OCGLUC #### [facility] [address] [address] [address] Kelly Mukherjee Monocytes/100 WBC (Bld) 6.0 % Normal 1.7-12.0 [facility] Comment on above: Performed By: #### P OCGLUC #### [facility] [address] [address] [address] Kelly Mukherjee NEUT # 3.4 103/ul Normal 1.4-6.5 [facility] Comment on above: Performed By: #### P OCGLUC #### [facility] [address] [address] [address] Kelly Mukherjee Neutrophils/100 WBC (Bld) 83.7 % Critically high 43.0-75.0 [facility] Comment on above: Performed By: #### P OCGLUC #### [facility] [address] [address] [address] Kelly Mukherjee Platelet mean volume (Bld) [Entitic vol] 10.2 fL Normal 9.5-13.5 [facility] Comment on above: Performed By: #### P OCGLUC #### [facility] [address] [address] [address] Kelly Mukherjee PLT 76 103/ul Critically low 150-450 [facility] Comment on above: Performed By: #### P OCGLUC #### [facility] [address], [place] [address] Dr. Kelly Mukherjee RBC 3.14 106/ul Critically low 4.70-6.10 [facility] Comment on above: Performed By: #### P OCGLUC #### [facility] [address], [place] [address] Dr. Kelly Mukherjee WBC 4.0 103/ul Normal 4.0-11.0 [facility] Comment on above: Performed By: #### P OCGLUC #### [facility] [address], [place] [address] HEAD WO CONon 10-04-2022 CT HEAD WO CON EXAMINATION: CT HEAD WO CON HISTORY: HEADACHE after syncopal episode. COMPARISON: 05/02/2022 TECHNIQUE: CT examination of the head without IV contrast. Sagittal and coronal reconstructions were obtained. Dose reduction techniques were achieved by using automated exposure control and/or adjustment of mA and/or kV according to patient size and/or use of iterative reconstruction technique. FINDINGS: The ventricles are significantly enlarged, the lateral ventricles are symmetric and the third ventricles in the midline. Sylvian fissures and cortical sulci are prominent in size. There is no evidence of an intracranial hemorrhage, mass lesion or apparent acute infarct. Patchy diminished attenuation is seen in the deep white matter. The cerebellum and visualized brainstem are intact. The visualized paranasal sinuses are clear. Vascular calcifications are seen in the distal internal carotid arteries. The middle ears are aerated. The mastoid sinuses are clear. There is no apparent acute skull fracture. IMPRESSION: There is no evidence of an intracranial hemorrhage, mass lesion or apparent acute infarct. Diffuse atrophy is present. Diffusely diminished attenuation in the deep white matter indicates chronic small vessel ischemic changes. The paranasal sinuses are clear. There is no apparent skull fracture. The overall appearance has not changed significantly since 05/02/2022. Electronically authenticated by: SYLVESTER BARBOUR Date: 2022-10-04 15:34 Normal [facility] Covid-19 PCR (CVDTB)on 09-08 SARS-CoV-2 (COVID-19) RNA ABIMBOLA+probe Ql (Unsp spec) Not detected Normal NOT DETECTED [facility] Comment on above: Result Comment: When diagnostic testing is negative, the possibility of a false negative should be considered in the context of a patient's recent exposures and the presence of clinical signs and symptoms consistent with SARS-CoV-2. This test is not yet approved or cleared by the [place] FDA. When there are no FDA-approved or cleared tests available, and other criteria are met, FDA can make tests available under an emergency access mechanism called an Emergency Use Authorization (EUA). The EUA for this test is supported by the [place] Director of Health and Human Service's declaration that circumstances exist to justify the emergency use of in vitro diagnostics for the detection and/or diagnosis of the virus that causes COVID-19. This EUA will remain in effect for the duration of the COVID-19 declaration justifying emergency of IVDs, unless it is terminated or revoked by the FDA (after which the test may no longer be used). Performed By: #### C VDTBH #### [facility] [address] [place] [address] Dr. Klely Mukherjee POINT OF CARE GLUCOSEon 09-08 Glucose [Mass/Vol] 134 mg/dL Critically high 74-106 [facility] Comment on above: Performed By: #### P OCGLUC #### [facility] [address] [place] [address] Dr. Kelly Mukherjee PROF CHEM 8 (BAS METB)on Anion gap [Moles/Vol] 12.9 mmol/L Normal [facility] Comment on above: Performed By: #### B MP #### [facility] [address] [place] [address] Dr. Kelly Mukherjee Calcium [Mass/Vol] 9.0 mg/dL Normal 8.5-10.1 [facility] Comment on above: Performed By: #### B MP #### [facility] [address] [place] [address] Dr. Kelly Mukherjee Chloride [Moles/Vol] 106 mmol/L Normal 98-107 [facility] Comment on above: Performed By: #### B MP #### [facility] [address] [place] [address] Dr. Kelly Mukherjee CO2 [Moles/Vol] 27.2 mmol/L Normal 21.0-32.0 [facility] Comment on above: Performed By: #### B MP #### [facility] [address] [place] [address] Dr. Kelly Mukherjee Creatinine [Mass/Vol] 0.98 mg/dL Normal 0.70-1.30 [facility] Comment on above: Performed By: #### B MP #### [facility] [address] [address] [address] Kelly Mukherjee EGFR-AF [place] >60 Normal >=60 [facility] Comment on above: Performed By: #### B MP #### [facility] [address] [place] [address] Dr. Kelly Mukherjee EGFR-NON AF [place] >60 Normal >=60 [facility] Comment on above: Performed By: #### B MP #### [facility] [address] [place] [address] Dr. Kelly Mukherjee Glucose [Mass/Vol] 146 mg/dL Critically high 74-106 [facility] Comment on above: Performed By: #### B MP #### [facility] [address] [place] [address] Dr. Kelly Mukherjee Potassium [Moles/Vol] 4.1 mmol/L Normal 3.5-5.1 [facility] Comment on above: Performed By: #### B MP #### [facility] [address] [place] [address] Dr. Kelly Mukherjee Sodium [Moles/Vol] 142 mmol/L Normal 136-145 [facility] Comment on above: Performed By: #### B MP #### [facility] [address] [address] [address] Kelly Mukherjee Urea nitrogen [Mass/Vol] 24.0 mg/dL Critically high 7.0-18.0 [facility] Comment on above: Performed By: #### B MP #### [facility] [address] [place] [address] Dr. Kelly Mukherjee Urea nitrogen/Creatinine [Mass ratio] 24.5 mg/mg Normal [facility] Comment on above: Performed By: #### B MP #### [facility] [address] [place] [address] Dr. Kelly Mukherjee PROTIMEon 10-04-2022 INR Coag (PPP) [Relative time] 1.06 {INR} Normal [facility] Comment on above: Performed By: #### C VDTBH #### [facility] [address] [place] [address] Dr. Kelly Mukherjee INR GUIDELINES SEE BELOW Normal [facility] Comment on above: Result Comment: JULIANA RED INR: 2.0 - 3.0 CONDITIONS NOT LISTED BELOW 2.5 - 3.5 FOR PROSTHETIC HEART VALVE REPLACEMENT 2.5 - 3.5 RECURRENT THROMBOSIS Performed By: #### C VDTBH #### [facility] [address] [place] [address] Dr. Kelly Mukherjee PT Coag (PPP) [Time] 11.4 s Normal 9.0-11.6 [facility] Comment on above: Performed By: #### C VDTBH #### [facility] [address] [place] [address] Dr. Kelly Mukherjee PTTon 10-04-2022 aPTT Coag (Bld) [Time] 24.5 s Normal 22.3-36.2 [facility] Comment on above: Performed By: #### C VDTBH #### [facility] [address] [place] [address] Dr. Kelly Mukherjee TROPONIN, HIGH SENSITIVITYon 10-04-2022 HSTROP 7.1 pg/mL Normal 4.0-76.1 [facility] Comment on above: Result Comment: CUT- OFF POINTS HAVE BEEN ESTABLISHED BASED ON THE FOURTH UNIVERSAL DEFINITIONS OF MYOCARDIAL INFARCTION. THE UPPER REFERENCE LIMIT (URL) OF TROPONIN, DEFINED THE 99TH PERCENTILE OF cTnI DISTRIBUTION IN A REFERENCE POPULATION, HAS BEEN CONFIRMED THE DECISION THRESHOLD FOR AR DIAGNOSIS. Performed By: #### C VDTBH #### [facility] [address] [place] [address] Dr. Kelly Mukherjee XR CHEST 1 Von 10-04-2022 XR CHEST 1 V EXAM: XR CHEST 1 V at 1450 hours HISTORY: SHORTNESS OF BREATH COMPARISON: 05/02/2022 TECHNIQUE: AP upright portable chest x-ray FINDINGS: The heart is not enlarged and the vasculature is not distended. Multiple sternal wire sutures and mediastinal clips are present. No acute infiltrate, effusion or pneumothorax is identified. A calcified granuloma seen at the right lung base laterally. The osseous structures are grossly intact. IMPRESSION: No acute infiltrate or evidence of cardiac decompensation. The overall appearance of the chest is unchanged. Electronically authenticated by: SYLVESTER BARBOUR Date: 2022-10-04 15:31 Normal [facility] 09[facility]01[facility]2022 [facility] BRIAN GOULD ([id number]) 1945 M Date Time Provider Department 09/01/22 ROLANDO BOWEN During your visit today, we recorded the following information about you: Rolando Bowen RN 09/01/2022 1:18 PM Signed ----- Message from Rey Crespo MD sent at 08/30/2022 4:41 PM EST ----- Please call with stable labs and make sure that he is adequaly hydrated every day Rolando Bowen RN 09/01/2022 1:20 PM Signed Pt's spouse notified and verbalizes understanding. Reports the pt is drinking at least 48 oz per day. Advised they try for at least 64 oz if possible. Spouse verbalizes understanding. Rolando Bowen RN Allergies As of Date: 09/01/2022 Noted Allergy Reaction NEOMYCIN 08/18/2009 2 - Rash Comments: Other reaction(s): AOF Other reaction(s): AOF Date Reviewed: 08/30/2022 Reviewed by: Rey Crespo MD - Fully Assessed Reason for Visit: Care Coordination [7292] Cmt: Lab Results Prescriptions as of 09/01/2022 - losartan (COZAAR) 50 mg tablet Take 50 mg by mouth once daily. - HYDROcodone-acetamin ophen (NORCO) 5-325 mg per tablet - citalopram (CELEXA) 20 mg tablet Take 20 mg by mouth once daily. - isosorbide mononitrate ER (IMDUR) 30 mg 24 hr tablet Take 30 mg by mouth once daily. - allopurinol (ZYLOPRIM) 300 mg tablet Take 300 mg by mouth once daily. - VITAMIN E, DL,TOCOPHERYL ACET, (VITAMIN E, DL, ACETATE,) 1,000 unit cap Take by mouth. - NAMENDA XR 28 mg CSpX 28 mg once daily. - donepezil (ARICEPT) 10 mg tablet Take 10 mg by mouth daily at bedtime. - simvastatin (ZOCOR) 20 mg tablet Take 20 mg by mouth daily at bedtime. - OXCARBAZEPINE 300 mg tablet Take 300 mg by mouth. Take 2 1/2 tablets in the morning and 2 1/2 tablet at night time. - aspirin, enteric coated 81 mg EC tablet Take 81 mg by mouth once daily. - insulin 70-30 aspart protamine-aspart (NOVOLOG MIX 70/30) 100 units/mL injection Inject subcutaneously twice daily before meals. Takes 45 units in the morning and 30 unit at supper time. 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] 05/20/2014 Pulmonary embolism (HCC) [I26.99] 05/20/2014 Abnormal urine color [R39.89] 05/21/2014 Encounter Status:Closed by ROLANDO BOWEN on 09/01/22 Normal [facility] CBC W Auto Differential pane l (Bld)on 08-30-2022 Basophils (Bld) [#/Vol] 10*3/uL Normal <0.11 [facility] Comment on above: Order Comment: Speci men Type: BLOOD SPECIMEN Ordering Facility: [facility] Address: [address] [place] [id number] Performed By: #### 5 7021-8 #### [facility] CLIA [id number] [address] [place] [address] Basophils/100 WBC (Bld) 0.5 % Normal [facility] Comment on above: Order Comment: Speci men Type: BLOOD SPECIMEN Ordering Facility: [facility] Address: [address] [address] Performed By: #### 5 7021-8 #### [facility] CLIA [id number] [address] [place] [address] Differential cell count method Nom (Bld) Auto Normal [facility] Comment on above: Order Comment: Speci men Type: BLOOD SPECIMEN Ordering Facility: [facility] Address: [address] [place] [address] Performed By: #### 5 7021-8 #### [facility] CLIA [id number] [address] [place] [address] Eosinophils (Bld) [#/Vol] 0.08 10*3/uL Normal <0.46 [facility] Comment on above: Order Comment: Speci men Type: BLOOD SPECIMEN Ordering Facility: [facility] Address: [address] [place] [address] Performed By: #### 5 7021-8 #### [facility] CLIA [id number] [address] [place] [address] Eosinophils/100 WBC (Bld) 2.1 % Normal [facility] Comment on above: Order Comment: Speci men Type: BLOOD SPECIMEN Ordering Facility: [facility] Address: [address] [address] Performed By: #### 5 7021-8 #### [facility] CLIA [id number] [address] [place] [address] Erythrocyte distribution width (RBC) [Ratio] 15.9 % High 11.5-15.0 [facility] Comment on above: Order Comment: Speci men Type: BLOOD SPECIMEN Ordering Facility: [facility] Address: [address] [place] [address] Performed By: #### 5 7021-8 #### [facility] CLIA [id number] [address] [place] [address] Hematocrit (Bld) [Volume fraction] 33.5 % Low 39.0-51.0 [facility] Comment on above: Order Comment: Speci men Type: BLOOD SPECIMEN Ordering Facility: [facility] Address: [address] [address] Performed By: #### 5 7021-8 #### [facility] CLIA [id number] [address] [place] [address] Hemoglobin (Bld) [Mass/Vol] 11.4 g/dL Low 13.0-17.0 [facility] Comment on above: Order Comment: Speci men Type: BLOOD SPECIMEN Ordering Facility: [facility] Address: [address] [place] [address] Performed By: #### 5 7021-8 #### [facility] CLIA [id number] [address] [place] [address] Immature granulocytes (Bld) [#/Vol] 10*3/uL Normal <0.10 [facility] Comment on above: Order Comment: Speci men Type: BLOOD SPECIMEN Ordering Facility: [facility] Address: [address] [place] [address] Performed By: #### 5 7021-8 #### [facility] CLIA [id number] [address] [place] [address] Immature granulocytes/100 WBC (Bld) 0.3 % Normal [facility] Comment on above: Order Comment: Speci men Type: BLOOD SPECIMEN Ordering Facility: [facility] Address: [address] [place] [address] Performed By: #### 5 7021-8 #### [facility] CLIA [id number] [address] [place] [address] Lymphocytes (Bld) [#/Vol] 0.60 10*3/uL Low 1.00-4.00 [facility] Comment on above: Order Comment: Speci men Type: BLOOD SPECIMEN Ordering Facility: [facility] Address: [address] [address] Performed By: #### 5 7021-8 #### [facility] CLIA [id number] [address] [place] [address] Lymphocytes/100 WBC (Bld) 16.1 % Normal [facility] Comment on above: Order Comment: Speci men Type: BLOOD SPECIMEN Ordering Facility: [facility] Address: [address] [address] Performed By: #### 5 7021-8 #### [facility] CLIA [id number] [address] [place] [address] MCH (RBC) [Entitic mass] 33.3 pg Normal 26.0-34.0 [facility] Comment on above: Order Comment: Speci men Type: BLOOD SPECIMEN Ordering Facility: [facility] Address: [address] [address] Performed By: #### 5 7021-8 #### [facility] CLIA [id number] [address] [place] [address] MCHC (RBC) [Mass/Vol] 34.0 g/dL Normal 30.5-36.0 [facility] Comment on above: Order Comment: Speci men Type: BLOOD SPECIMEN Ordering Facility: [facility] Address: [address] [address] Performed By: #### 5 7021-8 #### [facility] CLIA [id number] [address] [place] [address] MCV (RBC) [Entitic vol] 98.0 fL Normal 80.0-100.0 [facility] Comment on above: Order Comment: Speci men Type: BLOOD SPECIMEN Ordering Facility: [facility] Address: [address] [address] Performed By: #### 5 7021-8 #### [facility] CLIA [id number] [address] [place] [address] Monocytes (Bld) [#/Vol] 0.26 10*3/uL Normal <0.87 [facility] Comment on above: Order Comment: Speci men Type: BLOOD SPECIMEN Ordering Facility: [facility] Address: [address] [place] [address] Performed By: #### 5 7021-8 #### [facility] CLIA [id number] [address] [place] [address] Monocytes/100 WBC (Bld) 7.0 % Normal [facility] Comment on above: Order Comment: Speci men Type: BLOOD SPECIMEN Ordering Facility: [facility] Address: [address] [place] [address] Performed By: #### 5 7021-8 #### [facility] CLIA [id number] [address] [place] [address] Neutrophils (Bld) [#/Vol] 2.76 10*3/uL Normal 1.45-7.50 [facility] Comment on above: Order Comment: Speci men Type: BLOOD SPECIMEN Ordering Facility: [facility] Address: [address] [place] [address] Performed By: #### 5 7021-8 #### [facility] CLIA [id number] [address] [place] [address]261 Neutrophils/100 WBC (Bld) 74.0 % Normal [facility] Comment on above: Order Comment: Speci men Type: BLOOD SPECIMEN Ordering Facility: [facility] Address: [address] [place] [address] Performed By: #### 5 7021-8 #### [facility] CLIA [id number] [address] [place] [address]677 Nucleated RBC (Bld) [#/Vol] 10*3/uL Normal <0.01 [facility] Comment on above: Order Comment: Speci men Type: BLOOD SPECIMEN Ordering Facility: [facility] Address: [address] [address] Performed By: #### 5 7021-8 #### [facility] CLIA [id number] [address] [place] [address] Nucleated RBC/100 WBC (Bld) [Ratio] 0.0 /100 WBC Normal [facility] Comment on above: Order Comment: Speci men Type: BLOOD SPECIMEN Ordering Facility: [facility] Address: [address] [place] [address] Performed By: #### 5 7021-8 #### [facility] CLIA [id number] [address] [place] [address] Platelet mean volume (Bld) [Entitic vol] 9.7 fL Normal 9.0-12.7 [facility] Comment on above: Order Comment: Speci men Type: BLOOD SPECIMEN Ordering Facility: [facility] Address: [address] [place] [address] Performed By: #### 5 7021-8 #### [facility] CLIA [id number] [address] [place] [address]68 Platelets (Bld) [#/Vol] 81 10*3/uL Low 150-400 [facility] Comment on above: Order Comment: Speci men Type: BLOOD SPECIMEN Ordering Facility: [facility] Address: [address] [place] [address] Result Comment: Samp le checked for clot Performed By: #### 5 7021-8 #### [facility] CLIA [id number] [address] [place] [address]62 RBC (Bld) [#/Vol] 3.42 10*6/uL Low 4.20-6.00 [facility] Comment on above: Order Comment: Speci men Type: BLOOD SPECIMEN Ordering Facility: [facility] Address: [address] [place] [address] Performed By: #### 5 7021-8 #### [facility] CLIA [id number] [address] [place] [address] WBC (Bld) [#/Vol] 3.73 10*3/uL Normal 3.70-11.00 [facility] Comment on above: Order Comment: Speci men Type: BLOOD SPECIMEN Ordering Facility: [facility] Address: [address] [place], [place] [address] [address] Performed By: #### 5 7021-8 #### [facility] CLIA [id number] [address] [place] [address] Basophils (Bld) [#/Vol] <0.11 k/uL [facility] Basophils/100 WBC (Bld) 0.5 % [facility] Differential cell count method Nom (Bld) Auto [facility] Eosinophils (Bld) [#/Vol] 0.08 10*3/uL <0.46 k/uL [facility] Eosinophils/100 WBC (Bld) 2.1 % [facility] Erythrocyte distribution width (RBC) [Ratio] 15.9 % High 11.5 - 15.0 % [facility] Hematocrit (Bld) [Volume fraction] 33.5 % Low 39.0 - 51.0 % [facility] Hemoglobin (Bld) [Mass/Vol] 11.4 g/dL Low 13.0 - 17.0 g/dL [facility] Immature granulocytes (Bld) [#/Vol] <0.10 k/uL [facility] Immature granulocytes/100 WBC (Bld) 0.3 % [facility] Lymphocytes (Bld) [#/Vol] 0.60 10*3/uL Low 1.00 - 4.00 k/uL [facility] Lymphocytes/100 WBC (Bld) 16.1 % [facility] MCH (RBC) [Entitic mass] 33.3 pg 26.0 - 34.0 pg [facility] MCHC (RBC) [Mass/Vol] 34.0 g/dL 30.5 - 36.0 g/dL [facility] MCV (RBC) [Entitic vol] 98.0 fL 80.0 - 100.0 fL [facility] Monocytes (Bld) [#/Vol] 0.26 10*3/uL <0.87 k/uL [facility] Monocytes/100 WBC (Bld) 7.0 % [facility] Neutrophils (Bld) [#/Vol] 2.76 10*3/uL 1.45 - 7.50 k/uL [facility] Neutrophils/100 WBC (Bld) 74.0 % [facility] Nucleated RBC (Bld) [#/Vol] <0.01 k/uL [facility] Nucleated RBC/100 WBC (Bld) [Ratio] 0.0 /100 WBC [facility] Platelet mean volume (Bld) [Entitic vol] 9.7 fL 9.0 - 12.7 fL [facility] Platelets (Bld) [#/Vol] 81 10*3/uL Low 150 - 400 k/uL [facility] RBC (Bld) [#/Vol] 3.42 10*6/uL Low 4.20 - 6.0 0 m/uL [facility] WBC (Bld) [#/Vol] 3.73 10*3/uL 3.70 - 11. 00 k/uL [facility] CNOVSPon 08-30-2022 CNOVSP Visit (SP) Office ([place]) BRIAN GOULD ([id number]) 1945 M Date Time Provider Department 08/30/22 3:00 PM REY CRESPO During your visit today, we recorded the following information about you: Temperature Pulse Respiration Blood pressure 97.7 degrees 59/minute 18/minute 158/59 Weight Height 73.6 kg 1.703 m Rey Crespo MD 08/30/2022 3:09 PM Signed Patient: Brian Gould Location: [facility] : 1945 Attending Physician: Dr. Vazquez Quinonez Date:August 30, 2022 Progress Note Chief Complaint: History of rectal cancer. Thrombocytopenia, leukopenia Splenomegaly HPI: This is a 77 year old man with a history of rectal cancer, history as noted below 06/2007 : Stage I (T2 N0) rectal cancer treated with surgery and no adjuvant therapy 08/2008 : Local recurrence treated with resection, this was T3 N0 disease : adjuvant chemoradiation was given followed by 4 months of chemotherapy completed April 200903/2013 : Undergoes bone marrow evaluation due to prolonged and persistent neutropenia and thrombocytopenia, bone marrow was unremarkable : imaging as noted since then and probably prior to that stable splenomegaly with the spleen measuring about 20 cm 03/2014 : Underwent coronary bypass postoperatively was identified to have pulmonary embolism Patient returns in follow-up today. Overall doing well. Hospitalized in April for dehydration and UTI His work-up included iron studies which were normal, beta-2 microglobulin which is normal, LDH, vitamin B12, folic acid which were normal. No evidence of monoclonal gammopathy. He also had a CT scan of the chest on pelvis August 05, 2020 which demonstrated ongoing and stable splenomegaly and no evidence of lymphadenopathy. Past Medical History: Colon cancer, diabetes mellitus, hypertension, hernia repair (February 2011), and hyperlipidemia. CAD Current Outpatient Medications Medication Sig Dispense Refill losartan (COZAAR) 50 mg tablet Take 50 mg by mouth once daily. HYDROcodone-acetamin ophen (NORCO) 5-325 mg per tablet citalopram (CELEXA) 20 mg tablet Take 20 mg by mouth once daily. isosorbide mononitrate ER (IMDUR) 30 mg 24 hr tablet Take 30 mg by mouth once daily. allopurinol (ZYLOPRIM) 300 mg tablet Take 300 mg by mouth once daily. VITAMIN E, DL,TOCOPHERYL ACET, (VITAMIN E, DL, ACETATE,) 1,000 unit cap Take by mouth. NAMENDA XR 28 mg CSpX 28 mg once daily. donepezil (ARICEPT) 10 mg tablet Take 10 mg by mouth daily at bedtime. simvastatin (ZOCOR) 20 mg tablet Take 20 mg by mouth daily at bedtime. OXCARBAZEPINE 300 mg tablet Take 300 mg by mouth. Take 2 1/2 tablets in the morning and 2 1/2 tablet at night time. aspirin, enteric coated 81 mg EC tablet Take 81 mg by mouth once daily. insulin 70-30 aspart protamine-aspart (NOVOLOG MIX 70/30) 100 units/mL injection Inject subcutaneously twice daily before meals. Takes 45 units in the morning and 30 unit at supper time. iv contrast (will be provided with radiology test) CT ABD/PEL -Inject, intravenously, once for 1 dose.No IV access, insert saline lock prior to the beginning of sedation, infusion, injection of imaging exam. Discontinue saline lock post exam. If Pt. has a central line or IVAD, may access for administration according to line specific nursing protocol. Once exam is complete flush line and de-access according to line specific nursing protocol in the CT contrast administration guidelines link. (Patient not taking: Reported on 08/30/2022) 1 Each 0 iv contrast (will be provided with radiology test) CT Chest W -Inject, intravenously, once for 1 dose.No IV access, insert saline lock prior to the beginning of sedation, infusion, injection of imaging exam. Discontinue saline lock post exam. If Pt. has a central line or IVAD, may access for administration according to line specific nursing protocol. Once exam is complete flush line and de-access according to line specific nursing protocol in the CT contrast administration guidelines link. (Patient not taking: Reported on 08/30/2022) 1 Each 0 METOPROLOL TARTRATE, SHORT ACTING, 25 mg tablet Take 25 mg by mouth twice daily. (Patient not taking: Reported on 08/30/2022) No current facility-administere d medications for this visit. Allergies: NEOMYCIN REVIEW OF SYSTEMS: CONSTITUTIONAL: No recent fevers chills or sweats. Low energy but no worse recently HEENT: No epistaxis or sinus issues, no mouth sores CARDIOVASCULAR: no chest pain, no leg swelling PULM: Denies current cough, hemoptysis or dyspnea GI:Bowel habits are unchanged from previous, Denies early satiety, denies bloating : No new urinary complaints, including dysuria, gross hematuria or pyuria. MUSC-SKEL: No new bone pain or back pain INTEGUMENTARY: No bruising or rash PHYSICAL EXAMINATION General: Alert and oriented, no distress, pl (more content not included)... Normal [facility] Comprehensive metabolic 2000 panelon 08-30-2022 Albumin [Mass/Vol] 4.5 g/dL Normal 3.9-4.9 [facility] Comment on above: Order Comment: Speci men Type: BLOOD SPECIMEN Ordering Facility: [facility] Address: [address] [place] [phone] Performed By: #### 2 532-0, 27200-7 #### [facility] CLIA [id number] [address] [place] [address] ALP [Catalytic activity/Vol] 86 U/L Normal 38-113 [facility] Comment on above: Order Comment: Speci men Type: BLOOD SPECIMEN Ordering Facility: [facility] Address: [address] [address] Performed By: #### 2 532-0, 77644-6 #### [facility] CLIA [id number] [address] [place] [address] ALT [Catalytic activity/Vol] 15 U/L Normal 10-54 [facility] Comment on above: Order Comment: Speci men Type: BLOOD SPECIMEN Ordering Facility: [facility] Address: [address] [place] [address] Performed By: #### 2 532-0, 51857-8 #### [facility] CLIA [id number] [address] [place] [address] Anion gap [Moles/Vol] 8 mmol/L Low 9-18 [facility] Comment on above: Order Comment: Speci men Type: BLOOD SPECIMEN Ordering Facility: [facility] Address: [address] [address] Performed By: #### 2 532-0, 31358-0 #### [facility] CLIA [id number] [address] [place] [address] AST [Catalytic activity/Vol] 16 U/L Normal 14-40 [facility] Comment on above: Order Comment: Speci men Type: BLOOD SPECIMEN Ordering Facility: [facility] Address: [address] [address] Performed By: #### 2 532-0, 11597-0 #### [facility] CLIA [id number] [address] [place] [address] Bilirubin [Mass/Vol] 0.5 mg/dL Normal 0.2-1.3 [facility] Comment on above: Order Comment: Speci men Type: BLOOD SPECIMEN Ordering Facility: [facility] Address: [address] [address] Performed By: #### 2 532-0, #### [facility] CLIA [id number] [address] [place] [address] Calcium [Mass/Vol] 9.5 mg/dL Normal 8.5-10.2 [facility] Comment on above: Order Comment: Speci men Type: BLOOD SPECIMEN Ordering Facility: [facility] Address: [address] [place] [address] Performed By: #### 2 532-0, #### [facility] CLIA [id number] [address] [place] [address] Chloride [Moles/Vol] 110 mmol/L High 97-105 [facility] Comment on above: Order Comment: Speci men Type: BLOOD SPECIMEN Ordering Facility: [facility] Address: [address] [place] [address] Performed By: #### 2 532-0, #### [facility] CLIA [id number] [address] [place] [address] CO2 [Moles/Vol] 30 mmol/L Normal 22-30 [facility] Comment on above: Order Comment: Speci men Type: BLOOD SPECIMEN Ordering Facility: [facility] Address: [address] [place] [address] Performed By: #### 2 532-0, #### [facility] CLIA [id number] [address] [place] [address] Creatinine [Mass/Vol] 0.93 mg/dL Normal 0.73-1.22 [facility] Comment on above: Order Comment: Speci men Type: BLOOD SPECIMEN Ordering Facility: [facility] Address: [address] [place] [address] Performed By: #### 2 532-0, #### [facility] CLIA [id number] [address] [place] [address] ESTIMATED GLOMERULAR FILTRATION RATE 85 mL/min/1.73m??? Normal >=60 [facility] Comment on above: Order Comment: Helio helton Type: BLOOD SPECIMEN Ordering Facility: [facility] Address: [address] [phone] Result Comment: Arelis mated Glomerular Filtration Rate (eGFR) is calculated using the 2020 CKD-EPI creatinine equation. This equation utilizes serum creatinine, sex, and age as parameters. The creatinine assay has traceable calibration to isotope dilution-mass spectrometry. Refer to KDIGO guidelines for clinical interpretation. In patients with unstable renal function, e.g. those with acute kidney injury, the eGFR may not accurately reflect actual GFR. Performed By: #### 2 532-0, 71484-2 #### [facility] CLIA [id number] [address] [place] [address] Glucose [Mass/Vol] 86 mg/dL Normal 74-99 [facility] Comment on above: Order Comment: Helio helton Type: BLOOD SPECIMEN Ordering Facility: [facility] Address: [address] [phone] Result Comment: The [place] Diabetes Association (ADA) provides guidance for cutoff values for fasting glucose and random glucose. The ADA defines fasting as no caloric intake for at least 8 hours. Fasting plasma glucose results between 100 to 125 mg/dL indicate increased risk for diabetes (prediabetes). Fasting plasma glucose results greater than or equal to 126 mg/dL meet the criteria for diagnosis of diabetes. In the absence of unequivocal hyperglycemia, results should be confirmed by repeat testing. In a patient with classic symptoms of hyperglycemia or hyperglycemic crisis, random plasma glucose results greater than or equal to 200 mg/dL meet the criteria for diagnosis of diabetes. Reference: Standards of Medical Care in Diabetes 2016, [place] Diabetes Association. Diabetes Care. 2016.39(Suppl 1). Performed By: #### 2 532-0, 71619-2 #### [facility] CLIA [id number] [address] [place] [address] Potassium [Moles/Vol] 4.3 mmol/L Normal 3.7-5.1 [facility] Comment on above: Order Comment: Helio helton Type: BLOOD SPECIMEN Ordering Facility: [facility] Address: [address] [address] Performed By: #### 2 532-0, #### [facility] CLIA [id number] [address] [place] [address] Protein [Mass/Vol] 6.4 g/dL Normal 6.3-8.0 [facility] Comment on above: Order Comment: Speci men Type: BLOOD SPECIMEN Ordering Facility: [facility] Address: [address] [address] Performed By: #### 2 532-0, #### [facility] CLIA [id number] [address] [place] [address] Sodium [Moles/Vol] 148 mmol/L High 136-144 [facility] Comment on above: Order Comment: Speci men Type: BLOOD SPECIMEN Ordering Facility: [facility] Address: [address] [address] Performed By: #### 2 532-0, 86095-6 #### [facility] CLIA [id number] [address] [place] [address]951 Urea nitrogen [Mass/Vol] 24 mg/dL Normal 9-24 [facility] Comment on above: Order Comment: Speci men Type: BLOOD SPECIMEN Ordering Facility: [facility] Address: [address] [address] Performed By: #### 2 532-0, #### [facility] CLIA [id number] [address] [place] [address] Albumin [Mass/Vol] 4.5 g/dL 3.9 - 4.9 g/dL [facility] ALP [Catalytic activity/Vol] 86 U/L 38 - 113 U/L [facility] ALT [Catalytic activity/Vol] 15 U/L 10 - 54 U/L [facility] Anion gap [Moles/Vol] 8 mmol/L Low 9 - 18 mmol/L [facility] AST [Catalytic activity/Vol] 16 U/L 14 - 40 U/L [facility] Bilirubin [Mass/Vol] 0.5 mg/dL 0.2 - 1 .3 mg/dL [facility] Calcium [Mass/Vol] 9.5 mg/dL 8.5 - 10. 2 mg/dL [facility] Chloride [Moles/Vol] 110 mmol/L High 97 - 10 5 mmol/L [facility] CO2 [Moles/Vol] 30 mmol/L 22 - 30 mmol/L [facility] Creatinine [Mass/Vol] 0.93 mg/dL 0.73 - 1.22 mg/dL [facility] Estimated Glomerular Filtration Rate 85 mL/min/1.73m >=60 mL/min/1.73m [facility] Glucose [Mass/Vol] 86 mg/dL 74 - 99 mg/dL [facility] Potassium [Moles/Vol] 4.3 mmol/L 3.7 - 5.1 mmol/L [facility] Protein [Mass/Vol] 6.4 g/dL 6.3 - 8.0 g/dL [facility] Sodium [Moles/Vol] 148 mmol/L High 136 - 144 mmol/L [facility] Urea nitrogen [Mass/Vol] 24 mg/dL 9 - 24 mg/dL [facility] Ferritin SerPl-mCncon 2021 Ferritin [Mass/Vol] 121.0 ng/mL Normal 30.3-565.7 [facility] Comment on above: Order Comment: Speci men Type: BLOOD SPECIMEN Ordering Facility: [facility] Address: [address] [place] [address] Performed By: #### 5 0190-8, 2132-06, 2276-01 #### [facility] CLIA [id number] [address] [place] [address] [place] Iron and Iron binding capaci ty panelon 08-30-2022 Iron [Mass/Vol] 100 ug/dL Normal 41-186 [facility] Comment on above: Order Comment: Speci men Type: BLOOD SPECIMEN Ordering Facility: [facility] Address: [address] [place] [address] Performed By: #### 5 0190-8, 2132-06, 2276-01 #### [facility] CLIA [id number] [address] [place] [address] [place] Iron binding capacity [Mass/Vol] 287 ug/dL Normal 232-386 [facility] Comment on above: Order Comment: Speci men Type: BLOOD SPECIMEN Ordering Facility: [facility] Address: [address] [place] [address] Performed By: #### 5 0190-8, 2132-06, 2276-01 #### [facility] CLIA [id number] [address] [place] [address] [place] Iron/TIBC [Molar ratio] 34.8 % Normal 15.0-57.0 [facility] Comment on above: Order Comment: Speci men Type: BLOOD SPECIMEN Ordering Facility: [facility] Address: [address] [place] [address] Performed By: #### 5 0190-8, 2132-06, 2276-01 #### [facility] CLIA [id number] [address] [place] [address] [place] LD LACTATE DEHYDROon LDH [Catalytic activity/Vol] 180 U/L 135 - 225 U/L [facility] LDH SerPl-cCncon 08-30-2022 LDH [Catalytic activity/Vol] 180 U/L Normal 135-225 [facility] Comment on above: Order Comment: Speci men Type: BLOOD SPECIMEN Ordering Facility: [facility] Address: [address] [place], [place] [address] Performed By: #### 2 532-0, 87669-9 #### [facility] CLIA [id number] [address] [place] [address]68 Vit B12 SerPl-mCncon 022 Cobalamin (Vitamin B12) [Mass/Vol] 468 pg/mL Normal 232-1245 [facility] Comment on above: Order Comment: Speci men Type: BLOOD SPECIMEN Ordering Facility: [facility] Address: [address] [place], [place] [address] Performed By: #### 5 0190-8, 2132-06, 4 #### [facility] CLIA [id number] [address] [place], [place] [address] STATES OF [facility] CULTURE BLOODon 05-08-2022 Microscopic examination of blood, culture Culture Observations: NO GROWTH IN ANAEROBIC BOTTLE AT 5 DAYS. Culture Observations: AEROBIC BOTTLE POSITIVE, BCID=STAPH SPP. Culture Observations: CALLED BCID TO DR. ARMENDARIZ ON 05/04 @ 1054 Isolate 1 Staphylococcus capitis Growth of ORGANISM 1 Staphylococcus capitis ANTIBIOTIC M.I.C RX STATUS Beta-Lactamase Neg NEG F Benzylpenicillin <=0.03 S F Gentamicin <=0.5 S F Ciprofloxacin <=0.5 S F Levofloxacin 0.25 S F Moxifloxacin <=0.25 S F Inducible Clindamycin Resistance Neg NEG F Erythromycin <=0.25 S F Clindamycin <=0.25 S F Quinupristin/Dalfopr istin <=0.25 S F Linezolid 2 S F Vancomycin <=0.5 S F Tetracycline <=1 S F Rifampicin <=0.5 S F Trimethoprim/Sulfame thoxazole <=10 S F Oxacillin <=0.25 S F Normal [facility] Comment on above: Performed By: #### P OCGLUC #### [facility] [address] [place] [address] Dr. Kelly Mukherjee BLOOD CULTURE ID PANELon A. baumannii Not detected Normal NOT DETECTED [facility] Comment on above: Performed By: #### B CID2 #### [facility] [address] [place] [address] Dr. Kelly Mukherjee Bacteriodes fragilis Not detected Normal NOT DETECTED [facility] Comment on above: Performed By: #### B CID2 #### [facility] [address] [place] [address] Dr. Kelly Mukherjee BCID CONTROLS PASSED Normal [facility] Comment on above: Performed By: #### B CID2 #### [facility] [address] [place] [address] Dr. Kelly Mukherjee BCIDBTHD BLOOD CULTURE BOTTLE INFORMATION Normal [facility] Comment on above: Performed By: #### B CID2 #### [facility] [address] [place] [address] Dr. Kelly Mukherjee BCIDHD1 ANTIMICROBIAL RESISTANCE GENES Normal [facility] Comment on above: Performed By: #### B CID2 #### [facility] [address] [place] [address] Dr. Kelly Mukherjee BCIDHD2 SEE BELOW [facility] Comment on above: Result Comment: Note : Antimicrobial resitance can occur via multiple mechanisms. A Not Detected result for the [employer] antomicrobial resistance gene assays does not indicate antimicrobial susceptibility. Subculturing is required for species identification and susceptibility testing of isolates. Performed By: #### B CID2 #### [facility] [address] [place] [address] Dr. Kelly Mukherjee BCIDHD3 Positive [facility] Comment on above: Performed By: #### B CID2 #### [facility] [address] [place] [address] Dr. Kelly Mukherjee BCIDHD4 Negative Normal [facility] Comment on above: Performed By: #### B CID2 #### [facility] [address] [place] [address] Dr. Kelly Mukherjee BCIDHD5 YEAST Normal [facility] Comment on above: Performed By: #### B CID2 #### [facility] [address] [place] [address] Dr. Kelly Espinoza Set: Set 2 Normal [facility] Comment on above: Performed By: #### B CID2 #### [facility] [address] [place] [address] Dr. Kelly Mukherjee Bottle: Aerobic Normal [facility] Comment on above: Performed By: #### B CID2 #### [facility] [address] [place] [address] Dr. Kelly Mukherjee C. neoformans/gattii Not detected Normal NOT DETECTED [facility] Comment on above: Performed By: #### B CID2 #### [facility] [address] [place] [address] Dr. Kelly Mukherjee Morenita albicans Not detected Normal NOT DETECTED [facility] Comment on above: Performed By: #### B CID2 #### [facility] [address] [place] [address] Dr. Kelly Mukherjee Morenita auris Not detected Normal NOT DETECTED [facility] Comment on above: Performed By: #### B CID2 #### [facility] [address] [place] [address] Dr. Kelly Mukherjee Morenita glabrata Not detected Normal NOT DETECTED [facility] Comment on above: Performed By: #### B CID2 #### [facility] [address] [place] [address] Dr. Kelly Mukherjee Morenita Krusei Not detected Normal NOT DETECTED [facility] Comment on above: Performed By: #### B CID2 #### [facility] [address] [place] [address] Dr. Kelly Mukherjee Morenita Parapsilosis Not detected Normal NOT DETECTED [facility] Comment on above: Performed By: #### B CID2 #### [facility] [address] [place] [address] Dr. Kelly Mukherjee Morenita Tropicalis Not detected Normal NOT DETECTED [facility] Comment on above: Performed By: #### B CID2 #### [facility] [address] [place] [address] Dr. Kelly Mukherjee CTX-M Resistant Gene Not Applicable Normal NOT DETECTE D [facility] Comment on above: Performed By: #### B CID2 #### [facility] [address] [place] [address] Dr. Kelly Mukherjee E. Cloacae complex Not detected Normal NOT DETECTED [facility] Comment on above: Performed By: #### B CID2 #### [facility] [address] [place] [address] Dr. Kelly Mukherjee E. faecalis Not detected Normal NOT DETECTED [facility] Comment on above: Performed By: #### B CID2 #### [facility] [address] [place] [address] Dr. Kelly Mukherjee E. faecium Not detected Normal NOT DETECTED [facility] Comment on above: Performed By: #### B CID2 #### [facility] [address] [place] [address] Dr. Kelly Mukherjee Enterobacteriaceae Not detected Normal NOT DETECTED [facility] Comment on above: Performed By: #### B CID2 #### [facility] [address] [place] [address] Dr. Kelly Mukherjee Escherichia coli Not detected Normal NOT DETECTED [facility] Comment on above: Performed By: #### B CID2 #### [facility] [address] [place] [address] Dr. Kelly Mukherjee H. influenzae Not detected Normal NOT DETECTED [facility] Comment on above: Performed By: #### B CID2 #### [facility] [address] [place] [address] Dr. Kelly Mukherjee IMP Resistant Gene Not Applicable Normal NOT DETECTED [facility] Comment on above: Performed By: #### B CID2 #### [facility] [address] [place] [address] Dr. Kelly Mukherjee K. oxytoca Not detected Normal NOT DETECTED [facility] Comment on above: Performed By: #### B CID2 #### [facility] [address] [place] [address] Dr. Kelly Mukherjee K. pneumoniae Not detected Normal NOT DETECTED [facility] Comment on above: Performed By: #### B CID2 #### [facility] [address] [place] [address] Dr. Kelly Mukherjee Klebsiella aerogenes Not detected Normal NOT DETECTED [facility] Comment on above: Performed By: #### B CID2 #### [facility] [address] [place] [address] Dr. Kelly Mukherjee KPC Resistant Gene Not Applicable Normal NOT DETECTED [facility] Comment on above: Performed By: #### B CID2 #### [facility] [address] [place] [address] Dr. Kelly Mukherjee List. monocytogenes Not detected Normal NOT DETECTED [facility] Comment on above: Performed By: #### B CID2 #### [facility] [address] [place] [address] Dr. Kelly Mukherjee Mcr-1 Resistant Gene Not Applicable Normal NOT DETECTE D [facility] Comment on above: Performed By: #### B CID2 #### [facility] [address] [place] [address] Dr. Kelly Mukherjee mecA/C Not Applicable Normal NOT DETECTED [facility] Comment on above: Performed By: #### B CID2 #### [facility] [address] [place] [address] Dr. Kelly Mukherjee mecA/C MREJ Not Applicable Normal NOT DETECTED [facility] Comment on above: Performed By: #### B CID2 #### [facility] [address] [place] [address] Dr. Kelly Mukherjee N. meningitidis Not detected Normal NOT DETECTED [facility] Comment on above: Performed By: #### B CID2 #### [facility] [address] [place] [address] Dr. Kelly Mukherjee NDM Resistant Gene Not Applicable Normal NOT DETECTED [facility] Comment on above: Performed By: #### B CID2 #### [facility] [address] [place] [address] Dr. Kelly Mukherjee Oxa-48-like Not Applicable Normal NOT DETECTED [facility] Comment on above: Performed By: #### B CID2 #### [facility] [address] [place] [address] Dr. Kelly Mukherjee Proteus Not detected Normal NOT DETECTED [facility] Comment on above: Performed By: #### B CID2 #### [facility] [address] [place] [address] Dr. Kelly Mukherjee Pseud. aeruginosa Not detected Normal NOT DETECTED [facility] Comment on above: Performed By: #### B CID2 #### [facility] [address] [place] [address] Dr. Kelly Mukherjee S. maltophilia Not detected Normal NOT DETECTED [facility] Comment on above: Performed By: #### B CID2 #### [facility] [address] [place] [address] Dr. Kelly Mukherjee Salmonella Not detected Normal NOT DETECTED [facility] Comment on above: Performed By: #### B CID2 #### [facility] [address] [place] [address] Dr. Kelly Mukherjee Seratia marcescens Not detected Normal NOT DETECTED [facility] Comment on above: Performed By: #### B CID2 #### [facility] [address] [place] [address] Dr. Kelly Mukherjee Site: Lt Hand Normal [facility] Comment on above: Performed By: #### B CID2 #### [facility] [address] [place] [address] Dr. Kelly Mukherjee Staph. aureus Not detected Normal NOT DETECTED [facility] Comment on above: Performed By: #### B CID2 #### [facility] [address] [place] [address] Dr. Kelly Mukherjee Staph. epidermidis Not detected Normal NOT DETECTED [facility] Comment on above: Performed By: #### B CID2 #### [facility] [address] [place] [address] Dr. Kelly Mukherjee Staph. lugdunensis Not detected Normal NOT DETECTED [facility] Comment on above: Performed By: #### B CID2 #### [facility] [address] [place] [address] Dr. Kelly Mukherjee Staphylococcus Detected Abnormal NOT DETECTED [facility] Comment on above: Performed By: #### B CID2 #### [facility] [address] [place] [address] Dr. Kelly Mukherjee Strep. agalactiae Not detected Normal NOT DETECTED [facility] Comment on above: Performed By: #### B CID2 #### [facility] [address] [place] [address] Dr. Kelly Mukherjee Strep. pneumoniae Not detected Normal NOT DETECTED [facility] Comment on above: Performed By: #### B CID2 #### [facility] [address] [place] [address] Dr. Kelly Mukherjee Strep. pyogenes Not detected Normal NOT DETECTED [facility] Comment on above: Performed By: #### B CID2 #### [facility] [address] [place] [address] Dr. Kelly Mukherjee Streptococcus Not detected Normal NOT DETECTED [facility] Comment on above: Performed By: #### B CID2 #### [facility] [address] [place] [address] Dr. Kelly lukeA/Suraj Resist. Gene Not Applicable Normal NOT DETECTED [facility] Comment on above: Performed By: #### B CID2 #### [facility] [address] [place] [address] Dr. Kelly Mukherjee VIM Resistant Gene Not Applicable Normal NOT DETECTED [facility] Comment on above: Performed By: #### B CID2 #### [facility] [address] [place] [address] Dr. Kelly Mukherjee CBC AUTO DIFFon 05-03-2022 BASO # 0.0 103/ul Normal 0.0-0.1 [facility] Comment on above: Performed By: #### C BC #### [facility] [address] [place] [address] Dr. Kelly Mukherjee Basophils/100 WBC (Bld) 0.0 % Critically low 0.2-2.0 [facility] Comment on above: Performed By: #### C BC #### [facility] [address] [place] [address] Dr. Kelly Mukherjee EO # 0.0 103/ul Normal 0.0-0.7 [facility] Comment on above: Performed By: #### C BC #### [facility] [address] [place] [address] Dr. Kelly Mukherjee Eosinophils/100 WBC (Bld) 0.0 % Critically low 0.9-7.0 [facility] Comment on above: Performed By: #### C BC #### [facility] [address] [place] [address] Dr. Kelly Mukherjee Erythrocyte distribution width (RBC) [Ratio] 15.5 % Critically high 11.0-15.0 [facility] Comment on above: Performed By: #### C BC #### [facility] [address] [place] [address] Dr. Kelly Mukherjee Hematocrit (Bld) [Volume fraction] 25.3 % Critically low 42.0-54.0 [facility] Comment on above: Performed By: #### C BC #### [facility] [address] [address] [address] Kelly Mukherjee Hemoglobin (Bld) [Mass/Vol] 8.8 g/dL Critically low 14.0-18.0 [facility] Comment on above: Performed By: #### C BC #### [facility] [address] [address] [address] Kelly Mukherjee IG # 0.00 10e3/ul Normal 0.00-0.03 [facility] Comment on above: Performed By: #### C BC #### [facility] [address] [address] [address] Kelly Mukherjee IG % 0.0 % Normal 0.0-0.5 [facility] Comment on above: Performed By: #### C BC #### [facility] [address] [address] [address] Kelly Mukherjee LYMPH # 0.2 103/ul Critically low 1.2-3.8 [facility] Comment on above: Performed By: #### C BC #### [facility] [address] [address] [address] Kelly Mukherjee Lymphocytes/100 WBC (Bld) 11.5 % Critically low 20.5-60.0 [facility] Comment on above: Performed By: #### C BC #### [facility] [address] [address] [address] Kelly Mukherjee MANUAL DIFF REQ NO Normal [facility] Comment on above: Performed By: #### C BC #### [facility] [address] [address] [address] Kelly Mukherjee MCH (RBC) [Entitic mass] 34.1 pg Critically high 25.9-34.0 [facility] Comment on above: Performed By: #### C BC #### [facility] [address] [address] [address] Kelly Mukherjee MCHC (RBC) [Mass/Vol] 34.8 g/dL Normal 29.9-35.2 [facility] Comment on above: Performed By: #### C BC #### [facility] [address] [address] [address] Kelly Mukherjee MCV (RBC) [Entitic vol] 98.1 fL Critically high 80.0-94.0 [facility] Comment on above: Performed By: #### C BC #### [facility] [address] [address] [address] Kelly Mukherjee MONO # 0.2 103/ul Critically low 0.3-0.8 [facility] Comment on above: Performed By: #### C BC #### [facility] [address] [address] [address] Kelly Mukherjee Monocytes/100 WBC (Bld) 14.5 % Critically high 1.7-12.0 [facility] Comment on above: Performed By: #### C BC #### [facility] [address] [place] [address] Dr. Kelly Mukherjee NEUT # 1.2 103/ul Critically low 1.4-6.5 [facility] Comment on above: Performed By: #### C BC #### [facility] [address] [place] [address] Dr. Kelly Mukherjee Neutrophils/100 WBC (Bld) 74.0 % Normal 43.0-75.0 [facility] Comment on above: Performed By: #### C BC #### [facility] [address] [place] [address] Dr. Kelly Mukherjee Platelet mean volume (Bld) [Entitic vol] 10.3 fL Normal 9.5-13.5 [facility] Comment on above: Performed By: #### C BC #### [facility] [address] [place] [address] Dr. Kelly Mukherjee PLT 59 103/ul Critically low 150-450 [facility] Comment on above: Performed By: #### C BC #### [facility] [address] [place] [address] Dr. Kelly Mukherjee RBC 2.58 106/ul Critically low 4.70-6.10 [facility] Comment on above: Performed By: #### C BC #### [facility] [address] [place] [address] Dr. Kelly Mukherjee WBC 1.7 103/ul Critically low 4.0-11.0 [facility] Comment on above: Performed By: #### C BC #### [facility] [address] [place] [address] Dr. Kelly Mukherjee CBC W MANUAL DIFFon 05-03-20 22 ATYPICAL LYMPH # Normal [facility] Comment on above: Performed By: #### C VDTBH #### [facility] [address] [place] [address] Dr. Kelly Mukherjee ATYPICAL LYMPH % Normal [facility] Comment on above: Performed By: #### C VDTBH #### [facility] [address] [place] [address] Dr. Kelly Mukherjee BAND # 0.0 103/ul Normal 0.0-0.3 [facility] Comment on above: Performed By: #### C VDTBH #### [facility] [address] [place] [address] Dr. Kelly Mukherjee BAND % 1 % Normal 0-5 [facility] Comment on above: Performed By: #### C VDTBH #### [facility] [address] [place] [address] Dr. Kelly Mukherjee BASOM # 0.00 103/ul Normal 0.00-0.10 [facility] Comment on above: Performed By: #### C VDTBH #### [facility] [address] [place] [address] Dr. Kelly Mukherjee BASOM % 0.0 % Critically low 0.2-2.0 [facility] Comment on above: Performed By: #### C VDTBH #### [facility] [address] [place] [address] Dr. Kelly Mukherjee BLAST # Normal [facility] Comment on above: Performed By: #### C VDTBH #### [facility] [address] [place] [address] Dr. Kelly Mukherjee BLAST % Normal [facility] Comment on above: Performed By: #### C VDTBH #### [facility] [address] [address] [address] Kelly Mukherjee CORRECTED WBC Normal 4.0-11.0 [facility] Comment on above: Performed By: #### C VDTBH #### [facility] [address] [address] [address] Kelly Mukherjee EOS # 0.00 103/ul Normal 0.00-0.70 [facility] Comment on above: Performed By: #### C VDTBH #### [facility] [address] [address] [address] Kelly Mukherjee EOS% 0.0 % Critically low 0.9-7.0 [facility] Comment on above: Performed By: #### C VDTBH #### [facility] [address] [place] [address] Dr. Kelly Mukherjee HCT 26.7 % Critically low 42.0-54.0 [facility] Comment on above: Performed By: #### C VDTBH #### [facility] [address] [place] [address] Dr. Kelly Mukherjee HGB 9.3 g/dl Critically low 14.0-18.0 [facility] Comment on above: Performed By: #### C VDTBH #### [facility] [address] [place] [address] Dr. Kelly Mukherjee LYMPHM # 0.21 103/ul Critically low 1.20-3.80 [facility] Comment on above: Performed By: #### C VDTBH #### [facility] [address] [place] [address] Dr. Kelly Mukherjee LYMPHM% 13.0 % Critically low 20.5-60.0 [facility] Comment on above: Performed By: #### C VDTBH #### [facility] [address] [place] [address] Dr. Kelly Mukherjee MCH 33.9 pg Normal 25.9-34.0 [facility] Comment on above: Performed By: #### C VDTBH #### [facility] [address] [place] [address] Dr. Kelly Mukherjee MCHC 34.8 g/dl Normal 29.9-35.2 [facility] Comment on above: Performed By: #### C VDTBH #### [facility] [address] [place] [address] Dr. Kelly Mukherjee MCV 97.4 fL Critically high 80.0-94.0 [facility] Comment on above: Performed By: #### C VDTBH #### [facility] [address] [place] [address] Dr. Kelly Mukherjee METAMYELOCYTE # Normal [facility] Comment on above: Performed By: #### C VDTBH #### [facility] [address] [place] [address] Dr. Kelly Mukherjee METAMYELOCYTE % Normal [facility] Comment on above: Performed By: #### C VDTBH #### [facility] [address] [place] [address] Dr. Kelly Mukherjee MONOM# 0.16 103/ul Critically low 0.30-0.80 [facility] Comment on above: Performed By: #### C VDTBH #### [facility] [address] [place] [address] Dr. Kelly Mukherjee MONOM% 10.0 % Normal 1.7-12.0 [facility] Comment on above: Performed By: #### C VDTBH #### [facility] [address] [place] [address] Dr. Kelly Mukherjee MPV 9.9 fL Normal 9.5-13.5 [facility] Comment on above: Performed By: #### C VDTBH #### [facility] [address] [place] [address] Dr. Kelly Mukherjee MYELOCYTE # Normal [facility] Comment on above: Performed By: #### C VDTBH #### [facility] [address] [place] [address] Dr. Kelly Mukherjee MYELOCYTE % Normal [facility] Comment on above: Performed By: #### C VDTBH #### [facility] [address] [address] [address] Kelly Mukherjee NRBC Normal [facility] Comment on above: Performed By: #### C VDTBH #### [facility] [address] [place] [address] Dr. Kelly Mukherjee PLT 61 103/ul Critically low 150-450 [facility] Comment on above: Performed By: #### C VDTBH #### [facility] [address] [place], [place] [id number] Dr. Kelly Mukherjee RBC 2.74 106/ul Critically low 4.70-6.10 [facility] Comment on above: Performed By: #### C VDTBH #### [facility] [address] [place] [address] Dr. Kelly Mukherjee RDW 15.6 % Critically high 11.0-15.0 [facility] Comment on above: Performed By: #### C VDTBH #### [facility] [address] [place] [address] Dr. Kelly Mukherjee SEG # 1.22 103/ul Critically low 1.40-6.50 [facility] Comment on above: Performed By: #### C VDTBH #### [facility] [address] [place] [address] Dr. Kelly Mukherjee SEG % 76.0 % Critically high 43.0-75.0 [facility] Comment on above: Performed By: #### C VDTBH #### [facility] [address] [place] [address] Dr. Kelly Mukherjee WBC 1.6 103/ul Critically low 4.0-11.0 [facility] Comment on above: Performed By: #### C VDTBH #### [facility] [address] [place] [address] HEAD WO CONon 05-03-2022 CT HEAD WO CON EXAMINATION: CT HEAD WO CON HISTORY: DISORIENTATION, UNSPECIFIED COMPARISON: None. TECHNIQUE: CT examination of the head without IV contrast. Dose reduction techniques were achieved by using automated exposure control and/or adjustment of mA and/or kV according to patient size and/or use of iterative reconstruction technique. FINDINGS: There is diffuse ventricular and sulcal prominence consistent with involutional change. Diffuse hypodensity in the white matter suggests chronic microvascular ischemic changes. No evident acute/subacute focus of ischemia. Henry/white matter differentiation is otherwise preserved throughout. No hemorrhage or skull fracture. No midline shift or mass. Normal orbits. Pneumatized portions of the skull are clear. IMPRESSION: Chronic microvascular ischemic changes without acute intracranial abnormality. Electronically authenticated by: KIA JENNINGS Date: 2022-05-03 00:00 Normal [facility] CULTURE BLOODon 05-03-2022 Microscopic examination of blood, culture Culture Observations: NO GROWTH AT 5 DAYS. Normal [facility] Comment on above: Performed By: #### P OCGLUC #### [facility] [address] [address] [address] Kelly Mukherjee CULTURE URINEon 05-03-2022 CULTURE URINE Culture Observations: HEAVY GROWTH OF MIXED SKIN TERE. NO POTENTIAL PATHOGENS SEEN. Normal [facility] Comment on above: Performed By: #### P OCGLUC #### [facility] [address] [place] [address] Dr. Kelly Mukherjee Covid-19 PCR (CVDTB)on 04-08 SARS-CoV-2 (COVID-19) RNA ABIMBOLA+probe Ql (Unsp spec) Detected Critically abnormal NOT DETECTED [facility] Comment on above: Result Comment: This test is not yet approved or cleared by the [place] FDA. When there are no FDA-approved or cleared tests available, and other criteria are met, FDA can make tests available under an emergency access mechanism called an Emergency Use Authorization (EUA). The EUA for this test is supported by the [place] of Health and Human Service's declaration that circumstances exist to justify the emergency use of in vitro diagnostics for the detection and/or diagnosis of the virus that causes COVID-19. This EUA will remain in effect for the duration of the COVID-19 declaration justifying emergency of IVDs, unless it is terminated or revoked by the FDA (after which the test may no longer be used). Performed By: #### C VDTBH #### [facility] [address] [place] [address] Dr. Kelly ALLEN URINE PROFILEon 2 Bilirubin Ql (U) Negative Normal NEGATIVE [facility] Comment on above: Performed By: #### Javy VAZQUEZ UMICRO #### [facility] [address] [place] [address] Dr. Kelly Mukherjee Clarity (U) CLEAR Normal CLEAR [facility] Comment on above: Performed By: #### E RUR UMICRO #### [facility] [address] [place] [address] Dr. Kelly Mukherjee Color (U) YELLOW Normal YELLOW [facility] Comment on above: Performed By: #### E TAYLOR UMICRO #### [facility] [address] [place] [address] Dr. Kelly CARTER A micrscopic examination will be performed if indicated. Normal [facility] Comment on above: Performed By: #### E RUSujata UMICRO #### [facility] [address] [place] [address] Dr. Kelly Mukherjee Glucose Ql (U) 100 mg/dl Abnormal NEGATIVE [facility] Comment on above: Performed By: #### E RUSujata UMICRO #### [facility] [address] [place] [address] Dr. Kelly Mukherjee Hemoglobin Ql (U) TRACE-INTACT Abnormal NEGATIVE [facility] Comment on above: Performed By: #### Javy RUSujata UMICRO #### [facility] [address] [place] [address] Dr. Kelly Mukherjee Ketones Ql (U) Negative Normal NEGATIVE [facility] Comment on above: Performed By: #### E RUR UMICRO #### [facility] [address] [place] [address] Dr. Kelly Mukherjee LEUKOCYTES Negative Normal NEGATIVE [facility] Comment on above: Performed By: #### E RUR, UMICRO #### [facility] [address] [place] [address] Dr. Kelly Mukherjee Nitrite Ql (U) Positive Abnormal NEGATIVE [facility] Comment on above: Performed By: #### E RUR, UMICRO #### [facility] [address] [place] [address] Dr. Kelly Mukherjee pH (U) 5.5 [pH] Normal 5-9 [facility] Comment on above: Performed By: #### Javy VAZQUEZ, UMICRO #### [facility] [address] [place] [address] Dr. Kelly Mukherjee Protein (U) [Mass/Vol] 100 mg/dL Abnormal NEGAT NADER/ TRACE [facility] Comment on above: Performed By: #### Javy VAZQUEZ, UMICRO #### [facility] [address] [place] [address] Dr. Kelly Mukherjee SPEC GRAVITY 1.025 Normal 1.005-<=1.025 [facility] Comment on above: Performed By: #### Javy VAZQUEZ ICRO #### [facility] [address] [place] [address] Dr. Kelly Mukherjee UR MICRO IND INDICATED Normal [facility] Comment on above: Performed By: #### Javy VAZQUEZ, ICRO #### [facility] [address] [place] [address] Dr. Kelly Mukherjee Urobilinogen Qn (U) 0.2 {Jun'U}/dL Normal 0.2 - 1. 0 [facility] Comment on above: Performed By: #### Javy VAZQUEZ ICRO #### [facility] [address] [place] [address] Dr. Kelly Mukherjee LACTATE/LACTIC ACIDon 2021 Lactate [Moles/Vol] 1.0 mmol/L Normal 0.4-1.9 [facility] Comment on above: Performed By: #### B MP #### [facility] [address] [place] [address] Dr. Kelly Mukherjee PROF 14(COMP METB)on 022 Albumin [Mass/Vol] 3.6 g/dL Normal 3.4-5.0 [facility] Comment on above: Performed By: #### B MP #### [facility] [address] [place] [address] Dr. Kelly Mukherjee Albumin/Globulin [Mass ratio] 1.3 {ratio} Normal [facility] Comment on above: Performed By: #### B MP #### [facility] [address] [place] [address] Dr. Kelly Mukherjee ALP [Catalytic activity/Vol] 95 U/L Normal 46-116 [facility] Comment on above: Performed By: #### B MP #### [facility] [address] [place] [address] Dr. Kelly Mukherjee ALT [Catalytic activity/Vol] 53 U/L Normal 16-63 [facility] Comment on above: Performed By: #### B MP #### [facility] [address] [place] [address] Dr. Kelly Mukherjee Anion gap [Moles/Vol] 8.7 mmol/L Normal [facility] Comment on above: Performed By: #### B MP #### [facility] [address] [place] [address] Dr. Kelly Mukherjee AST [Catalytic activity/Vol] 31 U/L Normal 15-37 [facility] Comment on above: Performed By: #### B MP #### [facility] [address] [place] [address] Dr. Kelly Mukherjee Bilirubin [Mass/Vol] 0.4 mg/dL Normal 0.2-1.0 [facility] Comment on above: Performed By: #### B MP #### [facility] [address] [place] [address] Dr. Kelly Mukherjee Calcium [Mass/Vol] 8.5 mg/dL Normal 8.5-10.1 [facility] Comment on above: Performed By: #### B MP #### [facility] [address] [place] [address] Dr. Kelly Mukherjee Chloride [Moles/Vol] 106 mmol/L Normal 98-107 [facility] Comment on above: Performed By: #### B MP #### [facility] [address] [place] [address] Dr. Kelly Mukherjee CO2 [Moles/Vol] 29.1 mmol/L Normal 21.0-32.0 [facility] Comment on above: Performed By: #### B MP #### [facility] [address] [address] [address] Kelly Mukherjee Creatinine [Mass/Vol] 1.07 mg/dL Normal 0.70-1.30 [facility] Comment on above: Performed By: #### B MP #### [facility] [address] [address] [address] Kelly Mukherjee EGFR-AF [place]ER >60 Normal >=60 [facility] Comment on above: Performed By: #### B MP #### [facility] [address] [address] [address] Kelly Mukherjee EGFR-NON AF [place]ER >60 Normal >=60 [facility] Comment on above: Performed By: #### B MP #### [facility] [address] [address] [address] Kelly Mukherjee Globulin (S) [Mass/Vol] 2.8 g/dL Normal [facility] Comment on above: Performed By: #### B MP #### [facility] [address] [address] [address] Kelly Mukherjee Glucose [Mass/Vol] 208 mg/dL Critically high 74-106 [facility] Comment on above: Performed By: #### B MP #### [facility] [address] [place] [address] Dr. Kelly Mukherjee Potassium [Moles/Vol] 3.8 mmol/L Normal 3.5-5.1 [facility] Comment on above: Performed By: #### B MP #### [facility] [address] [address] [address] Kelly Mukherjee Protein [Mass/Vol] 6.4 g/dL Normal 6.4-8.2 [facility] Comment on above: Performed By: #### B MP #### [facility] [address] [address] [address] Kelly Mukherjee Sodium [Moles/Vol] 140 mmol/L Normal 136-145 [facility] Comment on above: Performed By: #### B MP #### [facility] [address] [address] [address] Kelly Mukherjee Urea nitrogen [Mass/Vol] 23.0 mg/dL Critically high 7.0-18.0 [facility] Comment on above: Performed By: #### B MP #### [facility] [address] [place] [address] Dr. Kelly Mukherjee Urea nitrogen/Creatinine [Mass ratio] 21.5 mg/mg Normal [facility] Comment on above: Performed By: #### B MP #### [facility] [address] [place] [address] Dr. Kelly Mukherjee PROF CHEM 8 (BAS METB)on Anion gap [Moles/Vol] 10.1 mmol/L Normal [facility] Comment on above: Performed By: #### B MP #### [facility] [address] [place] [address] Dr. Kelly Mukherjee Calcium [Mass/Vol] 8.2 mg/dL Critically low 8.5-10.1 [facility] Comment on above: Performed By: #### B MP #### [facility] [address] [place] [address] Dr. Kelly Mukherjee Chloride [Moles/Vol] 107 mmol/L Normal 98-107 [facility] Comment on above: Performed By: #### B MP #### [facility] [address] [place] [address] Dr. Kelly Mukherjee CO2 [Moles/Vol] 27.6 mmol/L Normal 21.0-32.0 [facility] Comment on above: Performed By: #### B MP #### [facility] [address] [place] [address] Dr. Kelly Mukherjee Creatinine [Mass/Vol] 0.93 mg/dL Normal 0.70-1.30 [facility] Comment on above: Performed By: #### B MP #### [facility] [address] [place] [address] Dr. Kelly Mukherjee EGFR-AF [place] ISLANDER >60 Normal >=60 [facility] Comment on above: Performed By: #### B MP #### [facility] [address] [place] [address] Dr. Kelly Mukherjee EGFR-NON AF [place] ISLANDER >60 Normal >=60 [facility] Comment on above: Performed By: #### B MP #### [facility] [address] [address] [address] Kelly Mukherjee Glucose [Mass/Vol] 153 mg/dL Critically high 74-106 [facility] Comment on above: Performed By: #### B MP #### [facility] [address] [place] [address] Dr. Kelly Mukherjee Potassium [Moles/Vol] 3.7 mmol/L Normal 3.5-5.1 [facility] Comment on above: Performed By: #### B MP #### [facility] [address] [place] [address] Dr. Kelly Mukherjee Sodium [Moles/Vol] 141 mmol/L Normal 136-145 [facility] Comment on above: Performed By: #### B MP #### [facility] [address] [place] [address] Dr. Kelly Mukherjee Urea nitrogen [Mass/Vol] 17.0 mg/dL Normal 7.0-18.0 [facility] Comment on above: Performed By: #### B MP #### [facility] [address] [place] [address] Dr. Kelly Mukherjee Urea nitrogen/Creatinine [Mass ratio] 18.3 mg/mg Normal [facility] Comment on above: Performed By: #### B MP #### [facility] [address] [place] [address] Dr. Kelly Mukhereje URINE MICROSCOPIC ONLYon BACTERIA MODERATE Abnormal NONE SEEN [facility] Comment on above: Performed By: #### MARIKA CABRAL #### [facility] [address] [place] [address] Dr. Kelly Mukherjee Bacteria identified Cx Nom (U) INDICATED Normal [facility] Comment on above: Performed By: #### CAITY CABRALRO #### [facility] [address] [place] [address] Dr. Kelly Mukherjee CAST NONE SEEN Normal NONE SEEN [facility] Comment on above: Performed By: #### E RUR, UMICRO #### [facility] [address] [address] [address] Kelly Mukherjee Crystals LM Nom (Urine sed) NONE SEEN Normal NONE SEEN [facility] Comment on above: Performed By: #### E RUR, UMICRO #### [facility] [address] [address] [address] Kelly Mukherjee Epithelial cells LM Ql (Urine sed) NONE SEEN Normal NONE SEEN /RARE [facility] Comment on above: Performed By: #### E RUR, UMICRO #### [facility] [address] [place] [address] Dr. Kelly Mukherjee MUCOUS NONE SEEN Normal NONE SEEN [facility] Comment on above: Performed By: #### E RUR, UMICRO #### [facility] [address] [place] [address] Dr. Kelly Mukherjee RBC NONE SEEN Abnormal 0-2 [facility] Comment on above: Performed By: #### E RUR, UMICRO #### [facility] [address] [place] [address] Dr. Kelly Mukherjee WBC 2-5 Abnormal NONE SEEN [facility] Comment on above: Performed By: #### E RUR, UMICRO #### [facility] [address] [place] [address] Dr. Kelly Mukherjee XR CHEST 1 Von 05-03-2022 XR CHEST 1 V XR CHEST 1 V 05/02/2022 10:30 PM EDT Indication: DISORIENTATION, UNSPECIFIED Technique: Portable AP radiograph of the chest was obtained. Comparison: February 15, 2022 Findings: The lungs are adequately inflated. Small calcified granuloma in the right lung base. No acute rib fractures, pneumothorax or mediastinal shift. No consolidation, edema, or effusion. Heart is normal in size and contour. Sternotomy wires intact. Impression: No acute findings. Electronically authenticated by: KIA JENNINGS Date: 2022-05-03 00:05 Normal [facility] MRI BRAIN WO CONon 2 MRI BRAIN WO CON EXAMINATION: MRI BRAIN WO CON, 04/19/2022 12:28 PM EDT HISTORY: Dementia COMPARISON: None. TECHNIQUE: MRI of the brain was performed without IV contrast. FINDINGS: CEREBRUM: 6.5 x 3.1 mm area of signal abnormality in the left inferior frontal white matter best seen on axial image 15. Peripheral decreased T1 and T2 signal with central hyperintense T2 and elevated T2 *.Scattered white matter signal abnormality likely representing chronic small vessel ischemic changes. Moderate diffuse supratentorial atrophy. CEREBELLUM: No edema, hemorrhage, mass, acute infarction, or inappropriate atrophy. BRAINSTEM: No edema, hemorrhage, mass, acute infarction, or inappropriate atrophy. CSF SPACES: Ventricles, cisterns, and sulci are appropriate for age. No hydrocephalus, subarachnoid hemorrhage, or mass. SKULL: No mass or other significant visible lesion. SINUSES: Fluid level in the sphenoid sinus ORBITS: Limited views are unremarkable. OTHER: Negative. IMPRESSION: Area of signal abnormality in the inferior posterior left frontal white matter. Consider hemorrhage greater than 14 days old. Atrophy and white matter disease. Chronic changes favored Electronically authenticated by: SHAKA BLANCO Date: 2022-04-19 20:[address] [facility] ECHOCARDIO M/2D COMPLETEon 0 03-27-2022 ECHOCARDIO M/2D COMPLETE Patient: BRIAN GOULD Exam Date: 03/27/2022 : 1945 Gender:M Ordering : DR JUAN A COX D.O. Admission #: [id number] Family : Order #: [id number] CLICK HERE TO VIEW EXAM ECHOCARDIOGRAM REPORT PROCEDURE: CARDIO PULMONARY ECHOCARDIO M/2D COMP INDICATIONS: Chest pain and dyspnea on exertion COMPARISON: None. DESCRIPTION: COMPLETE ECHOCARDIOGRAM Real-time transthoracic echocardiography with 2D, M-mode, spectral and color flow Doppler performed. QUALITY: Technical quality was good. LEFT VENTRICLE: Normal chamber size. Borderline left ventricular hypertrophy. Global left ventricular systolic function is normal. LV EF: Calculated left ventricular ejection fraction is 68% DIASTOLIC: Normal diastolic function. ATRIAL SEPTUM: LEFT ATRIUM: Mild dilatation. RIGHT ATRIUM: Normal chamber size. RIGHT VENTRICLE: Normal chamber size. Normal right ventricular systolic function. TRICUSPID VALVE: Normal mobility and thickness. No stenosis with trivial regurgitation. No evidence of pulmonary hypertension. RVSP 15mmHg MITRAL VALVE: Normal mobility and thickness. No mitral valve prolapse. No evidence of mitral valve stenosis. There is no mitral annular calcification. Mild mitral regurgitation. AORTIC VALVE: Normal trileaflet appearance. Mildly calcified aortic valve. Normal leaflet mobility. No evidence of aortic valve stenosis. No aortic regurgitation. AORTIC ROOT: Normal diameter and appearance. Mild dilatation of the ascending aorta measuring 3.7cm. PULMONIC VALVE: Normal thickness and mobility. No stenosis. Trivial regurgitation. PERICARDIUM: No evidence of pericardial effusion. IVC: Collapses with inspirations. Normal size. PLEURA: CONCLUSION: 1. Normal ventricular systolic function. LVEF is 65 to 70%. 2. Normal diastolic function. 3. Mild mitral regurgitation. 4. No pericardial effusion. 5. Mildly dilated ascending aorta measuring 3.7 cm. Adult Echocardiography Procedure Report Left Ventricle LVEDD (3.7 - 5.6 cm): 4.30 cm LVESD (2.2 - 4.0 cm): 2.62 cm LVIVS thickness (0.6 - 1.2 cm): 1.15 cm LVPW thickness (0.5 - 1.0 cm): 9.03 mm e': 8.33 cm/s E - e': 10.10 LVOT Area (cm2): 3.46 cm2 LVOT Diameter 2.10 cm Left Ventricular Ejection Fraction: 65-70 % Left Atrium LA Volume Index (2D A2C): 42.90 ml/m2 Left Atrium Systolic Dimension: 4.00 cm Left Atrium Systolic Area(A2C): 24.00 cm2 Left Atrium Systolic Area(A4C): 20.80 cm2 Left Atrium Systolic Volume(A2C): 95590 mm3 Left Atrium Systolic Volume(A4C): 89859 mm3 Mitral Valve MV E to A Ratio: 1.30 Deceleration Weakley: 3680 mm/s2 Mitral Valve A-Wave Peak Velocity: 65.60 cm/s Mitral Valve E-Wave Peak Velocity: 84.40 cm/s Right Ventricle RV Internal Diastolic Dimension: 3.10 cm Aorta AO Root Diam: 3.30 cm Aortic Valve AoV Area (Peak Alban): 2.40 cm2 Deceleration Weakley: 541 mm/s2 Pressure Half-Time: 1.59 s Peak Velocity: 294.00 cm/s Peak Gradient: 35 mm[Hg] Aortic Valve Cusp Separation: 1.60 cm Peak Velocity(Antegrade Flow): 147.00 cm/s Peak Gradient(Antegrade Flow): 9 mm[Hg] Tricuspid Valve Peak Velocity (Regurgitant Flow): 175.00 cm/s Pulmonic Valve Peak Velocity: 113.00 cm/s Peak Gradient: 5 mm[Hg] Right Atrium Dictated by: Mt Walden M.D. on 03/29/2022 at 19:04 Approved by: Mt Walden M.D. on 03/29/2022 at 19:[address] [facility] NM STRESS/REST MULTIon 03-09 NM STRESS/REST MULTI Patient: BRIAN GOULD Exam Date: 03/09/2022 : 1945 Gender:M Ordering : DR JUAN A COX D.O. Admission #: [id number] Family : Order #: [id number] CLICK HERE TO VIEW EXAM RADIOLOGY REPORT PROCEDURE: RADIONUCLIDE IMAGING STRESS/REST MULTI COMPARISON: None. INDICATIONS: Chest pain TECHNIQUE: Exam Description: Stress/Rest one day protocol gated SPECT Rest Imagin.5 mCi Tc-99m Cardiolite IV on 03/09/2022 Stress Imaging 30.7 mCi Tc-99m Cardiolite IV on 03/09/2022 Exercise Protocol: 0.4 mg Lexiscan given IV Heart Rate (bpm): Rest: 59 Max: 80 PMHR: 55 Blood Pressure: Rest: 174/88 Max: 188/98 Symptoms: Rest and peak stress ECG findings were normal and the exercise portion of the study was normal per attending physician Dr. Dennis Cox . For more details please see separate cardiac stress test report. FINDINGS: QUALITY OF STUDY: Excellent. PERFUSION DEFECT: None. LOCATION: N/A SIZE: N/A. SEVERITY: N/A. TYPE: N/A. WALL MOTION: Normal. LV SIZE: Normal. 77 mL. TID / TCD: None; 0.8 LVEF: Normal. Calculated EF 64%. SUMMARY: Myocardial perfusion imaging study is NORMAL. CONCLUSION: 1. Normal nuclear medicine myocardial perfusion scan. Dictated by: Micheal Olson M.D. on 03/10/2022 at 09:34 Approved by: Micheal Olson M.D. on 03/10/2022 at 09:[address] [facility] BNPon 02-15-2022 Natriuretic peptide B (Bld) [Mass/Vol] 400.0 pg/mL Normal <=1,800.0 [facility] Comment on above: Performed By: #### B MP #### [facility] [address] [address] [address] Kelly Mukherjee CARDIAC BARRON ADMITon 022 CK [Catalytic activity/Vol] 22 U/L Critically low 39-308 [facility] Comment on above: Performed By: #### B MP #### [facility] [address] [address] [address] Kelly Mukherjee CK.MB [Mass/Vol] ng/mL Normal <=3.60 [facility] Comment on above: Performed By: #### B MP #### [facility] [address] [place] [address] Dr. Kelly Mukherjee HSTROP 6.8 pg/mL Normal 4.0-76.1 [facility] Comment on above: Result Comment: CUT- OFF POINTS HAVE BEEN ESTABLISHED BASED ON THE FOURTH UNIVERSAL DEFINITIONS OF MYOCARDIAL INFARCTION. THE UPPER REFERENCE LIMIT (URL) OF TROPONIN, DEFINED THE 99TH PERCENTILE OF cTnI DISTRIBUTION IN A REFERENCE POPULATION, HAS BEEN CONFIRMED THE DECISION THRESHOLD FOR AR DIAGNOSIS. Performed By: #### B MP #### [facility] [address] [address] [address] Kelly Mukherjee DEBBIE 39 ng/mL Normal 16-96 [facility] Comment on above: Performed By: #### B MP #### [facility] [address] [place] [address] Dr. Kelly Mukherjee CBC AUTO DIFFon 02-15-2022 BASO # 0.0 103/ul Normal 0.0-0.1 [facility] Comment on above: Performed By: #### B MP #### [facility] [address] [place] [address] Dr. Kelly Mukherjee Basophils/100 WBC (Bld) 0.3 % Normal 0.2-2.0 [facility] Comment on above: Performed By: #### B MP #### [facility] [address] [place] [address] Dr. Kelly Mukherjee EO # 0.1 103/ul Normal 0.0-0.7 [facility] Comment on above: Performed By: #### B MP #### [facility] [address] [place] [address] Dr. Kelly Mukherjee Eosinophils/100 WBC (Bld) 2.0 % Normal 0.9-7.0 [facility] Comment on above: Performed By: #### B MP #### [facility] [address] [place] [address] Dr. Kelly Mukherjee Erythrocyte distribution width (RBC) [Ratio] 15.4 % Critically high 11.0-15.0 [facility] Comment on above: Performed By: #### B MP #### [facility] [address] [place] [address] Dr. Kelly Mukherjee Hematocrit (Bld) [Volume fraction] 31.9 % Critically low 42.0-54.0 [facility] Comment on above: Performed By: #### B MP #### [facility] [address] [place] [address] Dr. Kelly Mukherjee Hemoglobin (Bld) [Mass/Vol] 10.7 g/dL Critically low 14.0-18.0 [facility] Comment on above: Performed By: #### B MP #### [facility] [address] [place] [address] Dr. Kelly Mukherjee IG # 0.01 10e3/ul Normal 0.00-0.03 [facility] Comment on above: Performed By: #### B MP #### [facility] [address] [place] [address] Dr. Kelly Mukherjee IG % 0.3 % Normal 0.0-0.5 [facility] Comment on above: Performed By: #### B MP #### [facility] [address] [place] [address] Dr. Kelly Mukherjee LYMPH # 0.6 103/ul Critically low 1.2-3.8 [facility] Comment on above: Performed By: #### B MP #### [facility] [address] [place] [address] Dr. Kelly Mukherjee Lymphocytes/100 WBC (Bld) 15.9 % Critically low 20.5-60.0 [facility] Comment on above: Performed By: #### B MP #### [facility] [address] [place] [address] Dr. Kelly Mukherjee MANUAL DIFF REQ NO Normal [facility] Comment on above: Performed By: #### B MP #### [facility] [address] [place] [address] Dr. Kelly Mukherjee MCH (RBC) [Entitic mass] 33.8 pg Normal 25.9-34.0 [facility] Comment on above: Performed By: #### B MP #### [facility] [address] [place] [address] Dr. Kelly Mukherjee MCHC (RBC) [Mass/Vol] 33.5 g/dL Normal 29.9-35.2 [facility] Comment on above: Performed By: #### B MP #### [facility] [address] [place] [address] Dr. Kelly Mukherjee MCV (RBC) [Entitic vol] 100.6 fL Critically high 80.0-94.0 [facility] Comment on above: Performed By: #### B MP #### [facility] [address] [place] [address] Dr. Kelly Mukherjee MONO # 0.2 103/ul Critically low 0.3-0.8 [facility] Comment on above: Performed By: #### B MP #### [facility] [address] [place] [address] Dr. Kelly Mukherjee Monocytes/100 WBC (Bld) 4.9 % Normal 1.7-12.0 [facility] Comment on above: Performed By: #### B MP #### [facility] [address] [place] [address] Dr. Kelly Mukherjee NEUT # 2.7 103/ul Normal 1.4-6.5 [facility] Comment on above: Performed By: #### B MP #### [facility] [address] [place] [address] Dr. Kelly Mukherjee Neutrophils/100 WBC (Bld) 76.6 % Critically high 43.0-75.0 [facility] Comment on above: Performed By: #### B MP #### [facility] [address] [address] [address] Kelly Mukherjee Platelet mean volume (Bld) [Entitic vol] 10.4 fL Normal 9.5-13.5 [facility] Comment on above: Performed By: #### B MP #### [facility] [address] [address] [address] Kelly Mukherjee PLT 72 103/ul Critically low 150-450 [facility] Comment on above: Performed By: #### B MP #### [facility] [address] [address] [address] Kelly Mukherjee RBC 3.17 106/ul Critically low 4.70-6.10 [facility] Comment on above: Performed By: #### B MP #### [facility] [address] [address] [address] Kelly Mukherjee WBC 3.5 103/ul Critically low 4.0-11.0 [facility] Comment on above: Performed By: #### B MP #### [facility] [address] [address] [address] HEAD WO CONon 02-15-2022 CT HEAD WO CON EXAMINATION: CT HEAD WO CON HISTORY: SHORTNESS OF BREATH acute headache, tremor COMPARISON: None. TECHNIQUE: CT examination of the head without IV contrast. Dose reduction techniques were achieved by using automated exposure control and/or adjustment of mA and/or kV according to patient size and/or use of iterative reconstruction technique. FINDINGS: Diffuse ventricular and sulcal prominence consistent with age-related involutional change. No herniation. The henry matter/white matter differentiation is maintained throughout. No CT evidence of contemporary infarction. No acute intracranial hemorrhage or parenchymal mass. The calvarium and skull base are intact. Atherosclerotic vascular calcifications. Leftward nasal septal spur contours the left inferior turbinate. The pneumatized portions of the skull are clear. Postsurgical changes of the lenses. IMPRESSION: 1. No acute intracranial abnormality. Electronically authenticated by: CELINE COLVIN Date: 2022-02-15 15:45 Normal [facility] PROF 14(COMP METB)on 022 Albumin [Mass/Vol] 3.7 g/dL Normal 3.4-5.0 [facility] Comment on above: Performed By: #### B MP #### [facility] [address] [address] [address] Kelly Mukherjee Albumin/Globulin [Mass ratio] 1.3 {ratio} Normal [facility] Comment on above: Performed By: #### B MP #### [facility] [address] [address] [address] Kelly Mukherjee ALP [Catalytic activity/Vol] 84 U/L Normal 46-116 [facility] Comment on above: Performed By: #### B MP #### [facility] [address] [place] [address] Dr. Kelly Mukherjee ALT [Catalytic activity/Vol] 29 U/L Normal 16-63 [facility] Comment on above: Performed By: #### B MP #### [facility] [address] [place] [address] Dr. Kelly Mukherjee Anion gap [Moles/Vol] 14.3 mmol/L Normal [facility] Comment on above: Performed By: #### B MP #### [facility] [address] [place] [address] Dr. Kelly Mukherjee AST [Catalytic activity/Vol] 15 U/L Normal 15-37 [facility] Comment on above: Performed By: #### B MP #### [facility] [address] [place] [address] Dr. Kelly Mukherjee Bilirubin [Mass/Vol] 0.5 mg/dL Normal 0.2-1.0 [facility] Comment on above: Performed By: #### B MP #### [facility] [address] [place] [address] Dr. Kelly Mukherjee Calcium [Mass/Vol] 9.0 mg/dL Normal 8.5-10.1 [facility] Comment on above: Performed By: #### B MP #### [facility] [address] [place] [address] Dr. Kelly Mukherjee Chloride [Moles/Vol] 105 mmol/L Normal 98-107 [facility] Comment on above: Performed By: #### B MP #### [facility] [address] [address] [address] Kelly Mukherjee CO2 [Moles/Vol] 27.0 mmol/L Normal 21.0-32.0 [facility] Comment on above: Performed By: #### B MP #### [facility] [address] [address] [address] Kelly Mukherjee Creatinine [Mass/Vol] 0.90 mg/dL Normal 0.70-1.30 [facility] Comment on above: Performed By: #### B MP #### [facility] [address] [address] [address] Kelly Mukherjee EGFR-AF [place] ISLANDER >60 Normal >=60 [facility] Comment on above: Performed By: #### B MP #### [facility] [address] [place] [address] Dr. Kelly Mukherjee EGFR-NON AF [place] ISLANDER >60 Normal >=60 [facility] Comment on above: Performed By: #### B MP #### [facility] [address] [address] [address] Kelly Mukherjee Globulin (S) [Mass/Vol] 2.9 g/dL Normal [facility] Comment on above: Performed By: #### B MP #### [facility] [address] [place] [address] Dr. Kelly Mukherjee Glucose [Mass/Vol] 234 mg/dL Critically high 74-106 T [facility] Comment on above: Performed By: #### B MP #### [facility] [address] [address] [address] Kelly Mukherjee Potassium [Moles/Vol] 4.3 mmol/L Normal 3.5-5.1 [facility] Comment on above: Performed By: #### B MP #### [facility] [address] [address] [address] Kelly Mukherjee Protein [Mass/Vol] 6.6 g/dL Normal 6.4-8.2 [facility] Comment on above: Performed By: #### B MP #### [facility] [address] [address] [address] Kelly Mukherjee Sodium [Moles/Vol] 142 mmol/L Normal 136-145 [facility] Comment on above: Performed By: #### B MP #### [facility] [address] [place] [address] Dr. Kelly Mukherjee Urea nitrogen [Mass/Vol] 27.0 mg/dL Critically high 7.0-18.0 [facility] Comment on above: Performed By: #### B MP #### [facility] [address] [place] [address] Dr. Kelly Mukherjee Urea nitrogen/Creatinine [Mass ratio] 30.0 mg/mg Normal [facility] Comment on above: Performed By: #### B MP #### [facility] [address] [place] [address] Dr. Kelly Mukherjee PROTIMEon 02-15-2022 INR Coag (PPP) [Relative time] 1.03 {INR} Normal [facility] Comment on above: Performed By: #### C VDTBH #### [facility] [address] [place] [address] Dr. Kelly Mukherjee INR GUIDELINES SEE BELOW Normal [facility] Comment on above: Result Comment: JULIANA RED INR: 2.0 - 3.0 CONDITIONS NOT LISTED BELOW 2.5 - 3.5 FOR PROSTHETIC HEART VALVE REPLACEMENT 2.5 - 3.5 RECURRENT THROMBOSIS Performed By: #### C VDTBH #### [facility] [address] [place] [address] Dr. Kelly Mukherjee PT Coag (PPP) [Time] 11.1 s Normal 9.0-11.6 [facility] Comment on above: Performed By: #### C VDTBH #### [facility] [address] [place] [address] Dr. Kelly Mukherjee PTTon 02-15-2022 aPTT Coag (Bld) [Time] 26.9 s Normal 22.3-36.2 [facility] Comment on above: Performed By: #### C VDTBH #### [facility] [address] [place] [address] Dr. Kelly Mukherjee XR CHEST 1 Von 02-15-2022 XR CHEST 1 V EXAMINATION: XR CHEST 1 V HISTORY: SHORTNESS OF BREATH , headache, tremors COMPARISON: XR chest 03/17/2021 FINDINGS: LUNGS: Stable small granulomas within right lung base. No acute infiltrates. VASCULATURE: No increased pulmonary vasculature. PLEURA: No pneumothorax, effusion, or pleural thickening. CARDIAC: No cardiomegaly or cardiac silhouette abnormality. MEDIASTINUM: No visible mass or adenopathy. BONES: No fracture or visible bone lesion. OTHER: Prior sternotomy. IMPRESSION: 1. No acute cardiac pulmonary process. Stable chest. Electronically authenticated by: MICHEAL OLSON Date: 2022-02-15 15:[address] [facility] Vital Signs Date Time Vital Sign Value Performing Clinician Facility 11-06-2023 13:30-0500 Body height 172.72 cm [facility] Other [facility] Other 11-06-2023 13:30-0500 Body mass index (BMI) [Ratio] 24.45 kg/m2 [facility] Other [facility] Other 11-06-2023 13:30-0500 Body weight 72.94 kg Juan A Xook[facility] Other [facility] Other 11-06-2023 13:30-0500 Diastolic blood pressure 88 mm[Hg] Juan A [facility] Other [facility] Other 11-06-2023 13:30-0500 Respiratory rate 12 /min Juan A [facility] Other [facility] Other 11-06-2023 13:30-0500 Systolic blood pressure 138 mm[Hg] Juan A [facility] Other [facility] Other 07-05-2023 11:30-0400 Body height 172.72 cm Juan A [facility] Other [facility] Other 07-05-2023 11:30-0400 Body mass index (BMI) [Ratio] 24.87 kg/m2 Juan A Ball Other [facility] Other 07-05-2023 11:30-0400 Body weight 74.21 kg Juan A Ball Other [facility] Other 07-05-2023 11:30-0400 Diastolic blood pressure 64 mm[Hg] Juan A Ball Other [facility] Other 07-05-2023 11:30-0400 Respiratory rate 16 /min Juan A Ball Other [facility] Other 07-05-2023 11:30-0400 Systolic blood pressure 136 mm[Hg] Juan A Ball Other [facility] Other 04-04-2023 15:00-0400 Body height 172.72 cm Juan A Ball Other [facility] Other 04-04-2023 15:00-0400 Body mass index (BMI) [Ratio] 25.12 kg/m2 Juan A Ball Other [facility] Other 04-04-2023 15:00-0400 Body weight 74.93 kg Juan A Ball Other [facility] Other 04-04-2023 15:00-0400 Diastolic blood pressure 63 mm[Hg] Juan A Ball Other [facility] Other 04-04-2023 15:00-0400 Respiratory rate 12 /min Juan A Ball Other [employer] Other 04-04-2023 15:00-0400 Systolic blood pressure 173 mm[Hg] Juan A Ball Other [employer] Other 01-01-2023 14:30-0400 Body height 172.72 cm Juan A Ball Other [employer] Other 01-01-2023 14:30-0400 Body mass index (BMI) [Ratio] 24.93 kg/m2 Juan A Ball Other [employer] Other 01-01-2023 14:30-0400 Body weight 74.39 kg Juan A Ball Other [employer] Other 01-01-2023 14:30-0400 Diastolic blood pressure 62 mm[Hg] Juan A Ball Other [employer] Other 01-01-2023 14:30-0400 Respiratory rate 12 /min Juan A Ball Other [employer] Other 01-01-2023 14:30-0400 Systolic blood pressure 143 mm[Hg] Juan A Ball Other [employer] Other 10-13-2022 16:30-0500 Body height 172.72 cm Juan A Ball Other [employer] Other 10-13-2022 16:30-0500 Body mass index (BMI) [Ratio] 24.63 kg/m2 Juan A Ball Other [employer] Other 10-13-2022 16:30-0500 Body weight 73.48 kg Juan A Ball Other [employer] Other 10-13-2022 16:30-0500 Diastolic blood pressure 62 mm[Hg] Juan A Ball Other [employer] Other 10-13-2022 16:30-0500 Respiratory rate 12 /min Juan A Ball Other [employer] Other 10-13-2022 16:30-0500 Systolic blood pressure 122 mm[Hg] Juan A Cox Other [employer] Other 08-30-2022 14:43-0500 Body height 170.3 cm Rey Crespo MD Work Phone: [facility] 08-30-2022 14:43-0500 Body temperature 97.7 [degF] Rey Crespo MD Work Phone: [facility] 08-30-2022 14:43-0500 Body weight 73.57 kg Rey Crespo MD Work Phone: [facility] 08-30-2022 14:43-0500 Diastolic blood pressure 59 mm[Hg] Rey Crespo MD Work Phone: [facility] 08-30-2022 14:43-0500 Heart rate 59 /min Rey Crespo MD Work Phone: [facility] 08-30-2022 14:43-0500 Respiratory rate 18 /min Rey Crespo MD Work Phone: [facility] 08-30-2022 14:43-0500 SaO2% (BldA) [Mass fraction] 96 % Rey Crespo MD Work Phone: [facility] 08-30-2022 14:43-0500 Systolic blood pressure 158 mm[Hg] Rey Crespo MD Work Phone: [facility] Encounters Encounter Date Encounter Type Care Provider Facility Start: 02-07-2024 End: 02-07-2024 ambulatory CHA ROBERSON Not Available Start: 11-06-2023 End: 11-06-2023 ambulatory Juan A Cox Other [employer] Other Start: 11-06-2023 Office outpatient vi sit 25 minutes Juan A Cox [facility] Start: 07-17-2023 End: 07-17-2023 ambulatory Juan A Cox Other [employer] Other Start: 07-17-2023 Telephone encounter Juan A Cox [facility] Start: 07-05-2023 End: 07-05-2023 ambulatory Juan A Cxo Other [employer] Other Start: 07-05-2023 Patient encounter procedure Juan A Cox [facility] Start: 04-04-2023 End: 04-04-2023 ambulatory Juan A Cox Other [employer] Other Start: 04-04-2023 Office outpatient vi sit 25 minutes Juan A Ball [facility] Start: 01-01-2023 End: 01-01-2023 ambulatory Juan A Cox Other [employer] Other Start: 01-01-2023 Office outpatient vi sit 25 minutes Juan A Ball [facility] Start: 12-14-2022 End: 12-14-2022 ambulatory Juan A Cox Other [employer] Other Start: 12-14-2022 Telephone encounter Juan A Cox [facility] Start: 12-11-2022 End: 12-12-2022 ambulatory Dominic CASTELLANOS Facility:[facility] Start: 12-11-2022 End: 12-11-2022 Patient encounter procedure Dominic CASTELLANOS [facility] Start: 12-08-2022 End: 12-09-[address] DOMINIC CASTELLANOS Facility: Start: 11-27-2022 End: 11-27-2022 ambulatory Juan A Cox Other [employer] Other Start: 11-27-2022 Telephone encounter Juan A Cox [facility] Start: 11-07-2022 End: 11-08-2022 ambulatory ELLIS HO Facility:[facility] Start: 10-29-2022 End: 10-29-2022 ambulatory Juan A Cox Other [employer] Other Start: 10-29-2022 Telephone encounter Juan A Cox [facility] Start: 10-20-2022 End: 10-20-2022 ambulatory Juan A Cox Other [employer] Other Start: 10-20-2022 Telephone encounter Juan A Cox [facility] Start: 10-13-2022 End: 10-13-2022 ambulatory Juan A Cox Other [employer] Other Start: 10-13-2022 Office outpatient vi sit 25 minutes Juan A Kenny [facility] Start: 10-04-2022 End: 10-05-[address] JUAN A COX Facility:[facility] Start: 09-01-2022 Telephone encounter Rolando santos RN Work Phone: Hematology/Oncology Comment on above: Care Coordination (L ab Results) Start: 08-30-2022 End: 08-30-2022 ambulatory Rey Crespo MD Work Phone: Hematology/Oncology Comment on above: Splenomegaly (Primar y Dx); Abnormal finding of blood chemistry, unspecified Start: 08-30-2022 End: 08-30-2022 Patient encounter procedure eRy Crespo MD Work Phone: [facility] Start: 05-08-2022 End: 05-08-[address] JUAN A COX Facility:[facility] Start: 05-03-2022 End: 05-03-[address] JUAN A COX Facility:[facility] Start: 04-19-2022 End: 04-20-2022 ambulatory ELLIS HO Facility:[facility] Start: 03-27-2022 End: 03-28-[address] JUAN A COX Facility:[facility] Start: 03-09-2022 End: 03-10-[address] JUAN A COX Facility:[facility] Start: 02-15-2022 End: 02-15-[address] JUAN A COX Facility:[facility] Start: 07-17-2018 End: 07-18-2018 Patient encounter DEFAULT PHYSICIAN Facility:[facility] Start: 09-18-2017 End: 09-19-2017 Patient encounter DEFAULT PHYSICIAN Facility:[facility] Procedures Date Procedure Procedure Detail Performing Clinician Start: 12-08-2022 PSA screening ELLIS GARCIA Comment on above: Performed By: #### C [facility] #### [facility] [address] [place] [address] Dr. Kelly Mukherjee Start: 04-06-2021 Extracorporeal shock wave lithotripsy of calculus of kidney Dominic CASTELLANOS Start: 01-31-2019 Cystoscopy, Rightt retrograde, J stent, ESWL Dominic CASTELLANOS Start: 05-20-2014 History of coronary artery bypass grafting S/P CABG x 4 Rey Crespo MD Work Phone: Colonoscopy Dominic CASTELLANOS Coronary artery bypa ss grafts x 4 Dominic CASTELLANOS Extraction of cataract Oni reddy CASTELLANOS Comment on above: Bilateral Repair of inguinal hernia Ro hayley CASTELLANOS Plan of Treatment Date Care Activity Detail Author Start: 08-30-2025 DIABETES SCREEN DIABETES SCREEN [facility] Start: 02-27-2023 End: 04-29-2023 CBC W Auto Differential panel - Blood CBC + DIFF Lab Routine Splenomegaly Expected: 02/27/2023 (Approximate), Expires: 04/29/2023 [facility] Work Phone: Comment on above: Expected: 02/27/2023 (Approximate), Expires: 04/29/2023 Start: 02-27-2023 End: 04-29-2023 Comprehensive metabolic 2000 panel - Serum or Plasma COMP METABOLIC PANEL Lab Routine Splenomegaly Expected: 02/27/2023 (Approximate), Expires: 04/29/2023 [facility] Work Phone: Comment on above: Expected: 02/27/2023 (Approximate), Expires: 04/29/2023 Start: 08-30-2022 End: 10-30-2022 Cobalamin (Vitamin B12) [Mass/volume] in Serum or Plasma [facility] Work Phone: Comment on above: Expected: 08/30/2022 , Expires: 10/30/2022 Start: 08-30-2022 End: 08-30-2023 Ferritin [Mass/volume] in Serum or Plasma [facility] Work Phone: Comment on above: Expected: 08/30/2022 , Expires: 08/30/2023 Start: 08-30-2022 End: 08-30-2023 Iron and Iron binding capacity panel - Serum or Plasma [facility] Work Phone: Comment on above: Expected: 08/30/2022 , Expires: 08/30/2023 Start: 10-08-2021 ADVANCE DIRECTIVE DISCUSSION ADVANCE DIRECTIVE DISCUSSION [facility] Start: 10-08-2021 DEPRESSION ASSESSMENT DEPRESSION ASS ESSMENT [facility] Start: 02-01-2021 COVID-19 VACCINE (3 - Booster for Moderna series) COVID-19 VACCINE (3 - Booster for Moderna series) [facility] Start: 2011 PNEUMOCOCCAL: 65+ (1 - PCV) PNEUMOCOCCAL: 65+ (1 - PCV) [facility] Start: 1996 SHINGRIX VACCINE (1 of 2) SHINGRIX VACCINE (1 of 2) [facility] Start: 1965 Urine microalbumin profile DTAP,TDAP,TD (1 - Tdap) [facility] Start: 1964 ANNUAL 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 purified surface antigen) Juan A Cox Other [employer] Other 07-11-2022 influenza virus vaccine, unspecified formulation Dominic RICE [facility] 07-11-2022 influenza, high dose seasonal, preservative-free Juan A Cox Other [employer] Other 07-19-2021 influenza virus vaccine, split virus (incl. purified surface antigen) Juan A Cox Other [employer] Other 07-08-2021 influenza virus vaccine, unspecified formulation Dominic [employer] [facility] 12-07-2020 COVID-19 original vaccine, full dose, monovalent (MODERNA) Rey Crespo MD Work Phone: [facility] 12-06-2020 SARS-CoV-2 (COVID-19 ) mRNA-1273 vaccine [employer] [facility] 11-09-2020 COVID-19 original vaccine, full dose, monovalent (MODERNA) Rey Crespo MD Work Phone: [facility] 11-08-2020 SARS-CoV-2 (COVID-19 ) mRNA-1273 vaccine [employer] [facility] 07-30-2020 influenza virus vaccine, split virus (incl. purified surface antigen) Juan A Cox Other [employer] Other 07-30-2020 influenza virus vaccine, unspecified formulation Dominic RICE [facility] 07-30-2020 influenza, injectabl e, quadrivalent, preservative free Rey Crespo MD Work Phone: [facility] 07-21-2019 influenza virus vaccine, split virus (incl. purified surface antigen) Juan A Cox Other [employer] Other 07-18-2018 influenza virus vaccine, split virus (incl. purified surface antigen) Juan A Cox Other [employer] Other 07-18-2018 influenza virus vaccine, unspecified formulation Dominic RICE [facility] 07-18-2018 Seasonal trivalent influenza vaccine, adjuvanted, preservative free Rey Crespo MD Work Phone: [facility] 08-22-2017 influenza virus vaccine, split virus (incl. purified surface antigen) Juan A Cox Other [employer] Other 08-20-2017 influenza virus vaccine, unspecified formulation Dominic [employer] [facility] 08-20-2017 Seasonal trivalent influenza vaccine, adjuvanted, preservative free Rey Crespo MD Work Phone: [facility] 06-20-2016 influenza virus vaccine, split virus (incl. purified surface antigen) Juan A Cox Other [employer] Other 09-03-2015 influenza virus vaccine, unspecified formulation Dominic [employer] [facility] 09-03-2015 influenza, injectabl e, quadrivalent, preservative free Rey Crespo MD Work Phone: [facility] 09-03-2015 pneumococcal conjuga te vaccine, 13 valent Juan A Cox Other [employer] Other 08-19-2014 influenza virus vaccine, unspecified formulation Dominic RICE [facility] 08-19-2014 influenza, injectabl e, quadrivalent, contains preservative Rey Crespo MD Work Phone: [facility] 08-20-2013 influenza virus vaccine, unspecified formulation Dominic CASTELLANOS [facility] 08-20-2013 influenza, seasonal, injectable Rey Crespo MD Work Phone: [facility] 08-20-2013 pneumococcal polysaccharide vaccine, 23 valent Juan A Cox Other [employer] Other 06-12-2013 tetanus and diphther ia toxoids, adsorbed, preservative free, for adult use (5 Lf of tetanus toxoid and 2 Lf of diphtheria toxoid) Juan A Cox Other [employer] Other 06-19-2012 tetanus and diphther ia toxoids, adsorbed, preservative free, for adult use (5 Lf of tetanus toxoid and 2 Lf of diphtheria toxoid) Juan A Cox Other [employer] Other 04-09-2002 diphtheria, tetanus toxoids and acellular pertussis vaccine, unspecified formulation Juan A Cox Other [employer] Other Payers Date Payer Category Payer Private Health Insurance [facility] AAR SUPPLEMENT [id number] 2015-Present [phone] [address] [place] [address] Indemnity [id number] 2011 Medicare MEDICARE MEDICAR E A AND B [id number] 2011-Present [phone] [address] [address] [place] [address] Medicare [id number] 1959 Medicare [id number] 1959 Unknown [id number] 1946 Unknown [id number] .647 1946 Unknown [id number] .647 1946 Unknown [id number] .593 1946 Unknown [id number] [id number] .593 1946 Unknown [id number] [id number] .593 1946 Unknown [id number] [id number] .593 1946 Unknown [id number] [id number] .593 1946 Unknown [id number] [id number] .593 1946 Unknown [id number] [id number] .593 1946 Unknown [id number] [id number] .593 1946 Unknown [id number] [id number] .593 1946 Unknown [id number] [id number] .727 1946 Unknown [id number] .1259 Unknown Social History Date Type Detail Facility Start: 08-30-2022 End: 12-11-2022 Tobacco smoking status NHIS Ex-smoker [facility] History of tobacco use Current smoker [facility] History of tobacco use Passive smoker [facility] Start: 08-30-2022 Tobacco use and exposure Smokeless tobacco non-user [facility] Start: 08-30-2022 Alcohol intake 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) [facility] Start: 1945 Sex Assigned At Not on file [facility] Start: 08-20-2022 End: 08-30-2022 Exposure to SARS-CoV-2 (event) Not sure [facility] Sex Assigned At [facility] Medical Equipment Procedure Code Equipment Code Equipment Original Text Equi pment Identifier Dates Functional Status Date Assessment Result Facility 12-11-2022 Functional Status N/A [facility] Vivi Clinical Notes 08-30-2022 to 11-06-2023 Note Date & Type Note Facility 11-06-2023 Evaluation note Encounter Date Diagnosis Assessment Notes Oct, ASHD (arteriosclerotic heart disease) (ICD-10 - I25.10) This patient is stable without activity related CP, dyspnea or lightheadedness. They are instructed to continue exercise and AHA diet plan. Continue secondary prevention measures. Oct, Type 2 diabetes mellitus with hyperglycemia (ICD-10 - E11.65) This patient is following a comprehensive diabetic treatment plan. They are checking their feet daily for calluses and nonhealing ulcers. They are being seen for yearly dilated eye examinations. Goals: SBP less than 130, LDL less than 100, FBS less than 140, A1C less than 7%. They are checking their BS daily, will which are reviewed at the office visit. Continue regular routine monitoring of A1C, Microalbumin, Dilated eye exam and Foot exam Oct, Primary hypertension (ICD-10 - I10) This patient is instructed to consume a healthy, low-fat, low-salt diet. They are also encouraged to continue exercise to achieve/maintain a normal BMI. Oct, Elevated cholesterol (ICD-10 - E78.00) Instructed on diet and exercise with continued statin therapy.Discussed the beneficial effects of lowering cholesterol in reducing the risk for cerebrovascular and cardiovascular disease. Oct, Pancytopenia (ICD-10 - D61.818) Chronic condition No significant change f/u Hematology as scheduled Oct, Alzheimer's disease, unspecified (ICD-10 - G30.9) Requires 24 hours care. Family assisting in ADL and IADL He sleeps most of the day and has no interests Oct, Dementia in other diseases classified elsewhere, unspecified severity, without behavioral disturbance, psychotic disturbance, mood disturbance, and anxiety (ICD-10 - F02.80) 30 Lemuel, 2024 Hx of malignant neoplasm of colon (ICD-10 - Z85.038) UTD w/ CRC surceillance Oct, senior care (current) use of insulin (ICD-10 - Z79.4) Oct, Nephrolithiasis (ICD-10 - N20.0) Push fluids and continue Allopurinol [employer] Other 09-28-2023 Evaluation note* Encounter Date Diagnosis Assessment Notes Treatment Notes Treatment Clinical Notes Jun, Medicare annual wellness visit, subsequent (ICD-10 - Z00.00) Personalized health advice was given to the beneficiary including a written plan for screenings discussed and provided. Advanced care planning reviewed and/or information given as requested. Additional counseling was provided here today in regards to, [ ]. The above visit was performed by [ ], under direct supervision of [ ]. Document reviewed and amended by provider signed below. Jun, ASHD (arteriosclerotic heart disease) (ICD-10 - I25.10) This patient is stable without activity related CP, dyspnea or lightheadedness. They are instructed to continue exercise and AHA diet plan. Continue secondary prevention measures. Jun, Type 2 diabetes mellitus with hyperglycemia (ICD-10 - E11.65) This patient is following a comprehensive diabetic treatment plan. They are checking their feet daily for calluses and nonhealing ulcers. They are being seen for yearly dilated eye examinations. Goals: SBP less than 130, LDL less than 100, FBS less than 140, A1C less than 7%. They are checking their BS daily, will which are reviewed at the office visit. Continue regular routine monitoring of A1C,] Microalbumin, Dilated eye exam and Foot exam Jun, Primary hypertension (ICD-10 - I10) This patient is instructed to consume a healthy, low-fat, low-salt diet. They are also encouraged to continue exercise to achieve/maintain a normal BMI. Jun, Elevated cholesterol (ICD-10 - E78.00) Instructed on diet and exercise with continued statin therapy.Discussed the beneficial effects of lowering cholesterol in reducing the risk for cerebrovascular and cardiovascular disease. Jun, Pancytopenia (ICD-10 - D61.818) No s/s bleeding. No s/s intercurrent infection Denies night sweats Continue f/u w/ Hematology Jun, Alzheimer's disease, unspecified (ICD-10 - G30.9) Continue healthy diet and keep active assisting w/ ADL. Jun, Dementia in other diseases classified elsewhere, unspecified severity, without behavioral disturbance, psychotic disturbance, mood disturbance, and anxiety (ICD-10 - F02.80) Jun, Hx of malignant neoplasm of colon (ICD-10 - Z85.038) Last scope in 2019 w/ no f/u scopes scheduled. Denies change in bowel habits, continues w/ fecal incontinence. Denies melena or hematochezia Jun, senior care (current) use of insulin (ICD-10 - Z79.4) Jun, Screening PSA (prostate specific antigen) (ICD-10 - Z12.5) Yearly PSA [employer] Other 06-28-2023 Evaluation note* Encounter Date Diagnosis Assessment Notes Treatment Notes Treatment Clinical Notes Mar, ASHD (arteriosclerotic heart disease) (ICD-10 - I25.10) This patient is stable without activity related CP, dyspnea or lightheadedness. They are instructed to continue exercise and AHA diet plan. Mar, Type 2 diabetes mellitus with hyperglycemia (ICD-10 - E11.65) This patient is following a comprehensive diabetic treatment plan. They are checking their feet daily for calluses and nonhealing ulcers. They are being seen for yearly dilated eye examinations. Goals: SBP less than 130, LDL less than 100, FBS less than 140, AC and A1C less than 7%. They are checking their BS daily, will which are reviewed at the office visit. Continue regular routine monitoring of A1C,] Microalbumin, Dilated eye exam and Foot exam Mar, Primary hypertension (ICD-10 - I10) This patient is instructed to consume a healthy, low-fat, low-salt diet. They are also encouraged to continue exercise to achieve/maintain a normal BMI. Mar, Elevated cholesterol (ICD-10 - E78.00) Instructed on diet and exercise with continued statin therapy.Discussed the beneficial effects of lowering cholesterol in reducing the risk for cerebrovascular and cardiovascular disease. Mar, Pancytopenia (ICD-10 - D61.818) Mar, Alzheimer's disease, unspecified (ICD-10 - G30.9) Mild-moderate cognitive impairment. Encouraged to perform brain exercises daily Continue Aricept and Namenda assisting w/ ADL Mar, Dementia in other diseases classified elsewhere, unspecified severity, without behavioral disturbance, psychotic disturbance, mood disturbance, and anxiety (ICD-10 - F02.80) Mar, PINA (obstructive sleep apnea) (ICD-10 - G47.33) This patient is aware of the benefits associated with PINA: With continued use, the patient reduces the risk for AR, CVA, HTN, cardiac dysrhythmias and sudden cardiac deaths.The patient is also aware of the association between PINA and morning headaches, daytime somnolence, fatigue and obesiity Noncompliant Mar, Hx of malignant neoplasm of colon (ICD-10 - Z85.038) No s/s recurrence. UTD w/ surveillance scopes Mar, senior care (current) use of insulin (ICD-10 - Z79.4) [employer] Other 03-27-2023 Evaluation note* Encounter Date Diagnosis Assessment Notes Treatment Notes Treatment Clinical Notes Dec, ASHD (arteriosclerotic heart disease) (ICD-10 - I25.10) This patient is stable without activity related CP, dyspnea or lightheadedness. They are instructed to continue exercise and AHA diet plan. Dec, Type 2 diabetes mellitus with hyperglycemia (ICD-10 - E11.65) This patient is following a comprehensive diabetic treatment plan. They are checking their feet daily for calluses and nonhealing ulcers. They are being seen for yearly dilated eye examinations. Goals: SBP less than 130, LDL less than 100, FBS less than 140, AC and A1C less than 7%. They are checking their BS daily, will which are reviewed at the office visit. Dec, Primary hypertension (ICD-10 - I10) This patient is instructed to consume a healthy, low-fat, low-salt diet. They are also encouraged to continue exercise to achieve/maintain a normal BMI. Dec, Elevated cholesterol (ICD-10 - E78.00) Diet and exercise with continued statin therapy. Dec, Pancytopenia (ICD-10 - D61.818) Stable, f/u hematology - splenomegaly Dec, PINA (obstructive sleep apnea) (ICD-10 - G47.33) This patient is aware of the benefits associated with PINA: With continued use, the patient reduces the risk for AR, CVA, HTN, cardiac dysrhythmias and sudden cardiac deaths.The patient is also aware of the association between PINA and morning headaches, daytime somnolence, fatigue and obesity Dec, Alzheimer's disease, unspecified (ICD-10 - G30.9) Chronic condition, assisting w/ all activities of daily living. 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 Your risk of developing kidney stones may be greater depending on your diet, your lifestyle, the medicines you take, and whether you have certain medical conditions. Most people can reduce their chances of developing kidney stones by following the instructions below. Depending on your overall health and the type of kidney stones you tend to develop, your dietitian may give you more specific instructions. What are tips for following this plan? Reading food labels Choose foods with no salt added or low-salt labels. Limit your sodium intake to less than 1500 mg per day. Choose foods with calcium for each meal and snack. Try to eat about 300 mg of calcium at each meal.Foods that contain 200 500 mg of calcium per serving include: ?8 oz (237 ml) of milk, fortified nondairy milk, and fortified fruit juice. ?8 oz (237 ml) of kefir, yogurt, and soy yogurt. ?4 oz (118 ml) of tofu. ?1 oz of cheese. ?1 cup (300 g) of dried figs. ?1 cup (91 g) of cooked broccoli. ?1 3 oz can of sardines or mackerel. Most people need 1000 to 1500 mg of calcium each day. Talk to your dietitian about how much calciumis recommended for you. Shopping Buy plenty of fresh fruits and vegetables. Most people do not need to avoid fruits and vegetables, even if they contain nutrients that may contribute to kidney stones. When shopping for convenience foods, choose: ?Whole pieces of fruit. ?Premade salads with dressing on the side. ?Low-fat fruit and yogurt smoothies. Avoid buying frozen meals or prepared deli foods. Look for foods with live cultures, such as yogurt and kefir. Cooking Do not add salt to food when cooking. Place a salt shaker on the table and allow each person to addhis or her own salt to taste. Use vegetable protein, such as beans, textured vegetable protein (TVP), or tofu instead of meat in pasta, casseroles, and soups. Meal planning Eat less salt, if told by your dietitian. To do this: ?Avoid eating processed or premade food. ?Avoid eating fast food. Eat less animal protein, including cheese, meat, poultry, or fish, if told by your dietitian. To dothis: ?Limit the number of times you have meat, poultry, fish, or cheese each week. Eat a diet free of meat at least 2 days a week. ?Eat only one serving each day of meat, poultry, fish, or seafood. ?When you prepare animal protein, cut pieces into small portion sizes. For most meat and fish, one serving is about the size of one deck of cards. Eat at least 5 servings of fresh fruits and vegetables each day. To do this: ?Keep fruits and vegetables on hand for snacks. ?Eat 1 piece of fruit or a handful of berries with breakfast. ?Have a salad and fruit at lunch. ?Have two kinds of vegetables at dinner. Limit foods that are high in a substance called oxalate. These include: ?Spinach. ?Rhubarb. ?Beets. ?Potato chips and argent[place] fries. ?Nuts. If you regularly take a diuretic medicine, make sure to eat at least 1 2 fruits or vegetables high in potassium each day. These include: ?Avocado. ?Banana. ?Wink, prune, carrot, or tomato juice. ?Baked potato. ?Cabbage. ?Beans and split peas. General instructions Drink enough fluid to keep your urine clear or pale yellow. This is the most important thing you can do. Talk to your health care provider and dietitian about taking daily supplements. Depending on your health and the cause of your kidney stones, you may be advised: ?Not to take supplements with vitamin C. ?To take a calcium supplement. ?To take a daily probiotic supplement. ?To take other supplements such as magnesium, fish oil, or vitamin B6. Take all medicines and supplements as told by your health care provider. Limit alcohol intake to no more than 1 drink a day for non women and 2 drinks a day for men. One drink equals 12 oz of beer, 5 oz of wine, or 1 oz of hard liquor. Lose weight if told by your health care provider. Work with your dietitian to find strategies and an eating plan that works best for you. What foods are not recommended? Limit your intake of the following foods, or as told by your dietitian. Talk to your dietitian about specific foods you should avoid based on the type of kidney stones and your overall health. Grains Breads. Bagels. Rolls. Baked goods. Salted crackers. Cereal. Pasta. Vegetables Spinach. Rhubarb. Beets. Canned vegetables. Pickles. Olives. Meats and other protein foods Nuts. Nut butters. Large portions of meat, poultry, or fish. Salted or cured meats. Deli meats. Hotdogs. Sausages. Dairy Cheese. Beverages Regular soft drinks. Regular vegetable juice. Seasonings and other foods Seasoning blends with salt. Salad dressings. Canned soups. Soy sauce. Ketchup. Barbecue sauce. Canned pasta sauce. Casseroles. Pizza. Lasagna. Frozen meals. Potato chips. Yemeni fries. Summary You can reduce your risk of kidney stones by making changes to your diet. The most important thing you can do is drink enough fluid. You should drink enough fluid to keep your urine clear or pale yellow. Ask your health care provider or dietitian how much protein from animal sources you should eat eachday, and also how much salt and calcium you should have each day. This information is not intended to replace advice given to you by your health care provider. Make sure you discuss any questions you have with your health care provider. Document Released: 01/19/2012 Document Revised: 01/14/2020 Document Reviewed: 09/04/2017 [employer] Patient Education 2020 [place]. Follow Up Care 12/05/2021 11:51:44 With:YEFRI HUIZAR, Dominic Handley, JOSEL Address: [address] [place] [address]- When: only if needed Comments:PRN [facility] 02-20-2023 Evaluation note* Encounter Date Diagnosis Assessment Notes Treatment Notes Treatment Clinical Notes Nov, Primary hypertension (ICD-10 - I10) [employer] Other 01-13-2023 Evaluation note* Encounter Date Diagnosis Assessment Notes Treatment Notes Treatment Clinical Notes Oct, EKTA (generalized anxiety disorder) (ICD-10 - F41.1) Oct, Elevated cholesterol (ICD-10 - E78.00) Oct, ASHD (arteriosclerotic heart disease) (ICD-10 - I25.10) [employer] Other 01-06-2023 Evaluation note* Encounter Date Diagnosis Assessment Notes Treatment Notes Treatment Clinical Notes Oct, ASHD (arteriosclerotic heart disease) (ICD-10 - I25.10) This patient is stable without activity related CP, dyspnea or lightheadedness. They are instructed to continue exercise and AHA diet plan. Oct, Orthostatic hypotension (ICD-10 - I95.1) Hydrate and avoid long hot showers. Monitor BP twice daily and report results to office Oct, Primary hypertension (ICD-10 - I10) This patient is instructed to consume a healthy, low-fat, low-salt diet. They are also encouraged to continue exercise to achieve/maintain a normal BMI. Oct, EKTA (generalized anxiety disorder) (ICD-10 - F41.1) Healthy diet and keep active. Oct, Elevated cholesterol (ICD-10 - E78.00) Diet and exercise with continued statin therapy. Oct, Alzheimer's disease, unspecified (ICD-10 - G30.9) Continue present medications. Aricept may cause bradycardia, monitor for now. Oct, Dementia in other diseases classified elsewhere, unspecified severity, without behavioral disturbance, psychotic disturbance, mood disturbance, and anxiety (ICD-10 - F02.80) Oct, Benign prostatic hyperplasia with lower urinary tract symptoms (ICD-10 - N40.1) Banegas placed during hospital stay w/ some hesitancy upon d/c, has corrected itself. Oct, Nocturia (ICD-10 - R35.1) Oct, PINA (obstructive sleep apnea) (ICD-10 - G47.33) This patient is aware of the benefits associated with PINA: With continued use, the patient reduces the risk for AR, CVA, HTN, cardiac dysrhythmias and sudden cardiac deaths. The patient is also aware of the association between PINA and morning headaches, daytime somnolence, fatigue and obesity, which also has been improved with continued use. The patient is compliant with treatment, wearing the equipment every night for greater than 4 hours. The patient is instructed to continue use of the CPAP for PINA treatment. Noncompliant Oct, Pancytopenia (ICD-10 - D61.818) Monitor CBC, f/u with Hematology Oct, Precordial pain (ICD-10 - R07.2) Not associated w/ activity, more often occurring at rest, in evening after eating. Oct, Type 2 diabetes mellitus with hyperglycemia (ICD-10 - E11.65) This patient is following a comprehensive diabetic treatment plan. They are checking their feet daily for calluses and nonhealing ulcers. They are being seen for yearly dilated eye examinations. Goals: SBP less than 130, LDL less than 100, FBS less than 140, AC and A1C less than 7%. They are checking their BS daily, will which are reviewed at the office visit. 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 Reports the pt is drinking at least 48 oz per day. Advised they try for at least 64 oz if possible. Spouse verbalizes understanding. Rolando Bowen RN * Telephone Encounter - Rolando Bowen RN - 09/01/2022 1:18 PM EST ----- Message from Rey Crespo MD sent at 08/30/2022 4:41 PM EST ----- Please call with stable labs and make sure that he is adequaly hydrated every day documented [facility] NoteHNO ID: [id number] Author: Rey Crespo MD Service: ? Author Type: Physician Type: Progress Notes Filed: 08/30/2022 3:09 PM Note Text: Patient: Brian Gould Location: [facility] : 1945 Attending Physician: Dr. Vazquez Quinonez Date:August 30, 2022 Progress Note Chief Complaint: History of rectal cancer. Thrombocytopenia, leukopenia Splenomegaly HPI: This is a 77 year old man with a history of rectal cancer, history as noted below 06/2007 : Stage I (T2 N0) rectal cancer treated with surgery and no adjuvant therapy 08/2008 : Local recurrence treated with resection, this was T3 N0 disease : adjuvant chemoradiation was given followed by 4 months of chemotherapy completed April 200903/2013 : Undergoes bone marrow evaluation due to prolonged and persistent neutropenia and thrombocytopenia, bone marrow was unremarkable : imaging as noted since then and probably prior to that stable splenomegaly with the spleen measuring about 20 cm 03/2014 : Underwent coronary bypass postoperatively was identified to have pulmonary embolism Patient returns in follow-up today. Overall doing well. Hospitalized in April for dehydration and UTI His work-up included iron studies which were normal, beta-2 microglobulin which is normal, LDH, vitamin B12, folic acid which were normal. No evidence of monoclonal gammopathy. He also had a CT scan of the chest on pelvis August 05, 2020 which demonstrated ongoing and stable splenomegaly and no evidence of lymphadenopathy. Past Medical History: Colon cancer, diabetes mellitus, hypertension, hernia repair (February 2011), and hyperlipidemia. CAD Current Outpatient Medications Medication Sig Dispense Refill losartan (COZAAR) 50 mg tablet Take 50 mg by mouth once daily. HYDROcodone-acetaminophen (NORCO) 5-325 mg per tablet citalopram (CELEXA) 20 mg tablet Take 20 mg by mouth once daily. isosorbide mononitrate ER (IMDUR) 30 mg 24 hr tablet Take 30 mg by mouth once daily. allopurinol (ZYLOPRIM) 300 mg tablet Take 300 mg by mouth once daily. VITAMIN E, DL,TOCOPHERYL ACET, (VITAMIN E, DL, ACETATE,) 1,000 unit cap Take by mouth. NAMENDA XR 28 mg CSpX 28 mg once daily. donepezil (ARICEPT) 10 mg tablet Take 10 mg by mouth daily at bedtime. simvastatin (ZOCOR) 20 mg tablet Take 20 mg by mouth daily at bedtime. OXCARBAZEPINE 300 mg tablet Take 300 mg by mouth. Take 2 1/2 tablets in the morning and 2 1/2 tablet at night time. aspirin, enteric coated 81 mg EC tablet Take 81 mg by mouth once daily. insulin 70-30 aspart protamine-aspart (NOVOLOG MIX 70/30) 100 units/mL injection Inject subcutaneously twice daily before meals. Takes 45 units in the morning and 30 unit at supper time. iv contrast (will be provided with radiology test) CT ABD/PEL -Inject, intravenously, once for 1 dose.No IV access, insert saline lock prior to the beginning of sedation, infusion, injection of imaging exam. Discontinue saline lock post exam. If Pt. has a central line or IVAD, may access for administration according to line specific nursing protocol. Once exam is complete flush line and de-access according to line specific nursing protocol in the CT contrast administration guidelines link. (Patient not taking: Reported on 08/30/2022) 1 Each 0 iv contrast (will be provided with radiology test) CT Chest W -Inject, intravenously, once for 1 dose.No IV access, insert saline lock prior to the beginning of sedation, infusion, injection of imaging exam. Discontinue saline lock post exam. If Pt. has a central line or IVAD, may access for administration according to line specific nursing protocol. Once exam is complete flush line and de-access according to line specific nursing protocol in the CT contrast administration guidelines link. (Patient not taking: Reported on 08/30/2022) 1 Each 0 METOPROLOL TARTRATE, SHORT ACTING, 25 mg tablet Take 25 mg by mouth twice daily. (Patient not taking: Reported on 08/30/2022) No current facility-administered medications for this visit. Allergies: NEOMYCIN REVIEW OF SYSTEMS: CONSTITUTIONAL: No recent fevers chills or sweats. Low energy but no worse recently HEENT: No epistaxis or sinus issues, no mouth sores CARDIOVASCULAR: no chest pain, no leg swelling PULM: Denies current cough, hemoptysis or dyspnea GI:Bowel habits are unchanged from previous, Denies early satiety, denies bloating : No new urinary complaints, including dysuria, gross hematuria or pyuria. MUSC-SKEL: No new bone pain or back pain INTEGUMENTARY: No bruising or rash PHYSICAL EXAMINATION General: Alert and oriented, no distress, pleasant and cooperative. Cardiovascular: Regular rate rhythm normal S1-S2 Pulmonary: Clear to auscultation bilaterally, no crackles or wheezes Abdomen nontender nondistended, spleen 5 cm below left costal margin Neuro: Cranial 2 through 12 grossly intact Extremities: No edema or erythema BP 147/53[second a (more content not included)...[facility] 08-30-2022 History of Present illness Narrative* Rey Crespo MD - 08/30/2022 2:59 PM EST Patient: Brian Gould Location: [facility] : 1945 Attending Physician: Dr. Vazquez Quinonez Date:August 30, 2022 Progress Note Chief Complaint: History of rectal cancer. Thrombocytopenia, leukopenia Splenomegaly HPI: This is a 77 year old man with a history of rectal cancer, history as noted below 06/2007 : Stage I (T2 N0) rectal cancer treated with surgery and no adjuvant therapy 08/2008 : Local recurrence treated with resection, this was T3 N0 disease : adjuvant chemoradiation was given followed by 4 months of chemotherapy completed April 200903/2013 : Undergoes bone marrow evaluation due to prolonged and persistent neutropenia and thrombocytopenia, bone marrow was unremarkable : imaging as noted since then and probably prior to that stable splenomegaly with the spleen measuring about 20 cm 03/2014 : Underwent coronary bypass postoperatively was identified to have pulmonary embolism Patient returns in follow-up today. Overall doing well. Hospitalized in April for dehydration and UTI His work-up included iron studies which were normal, beta-2 microglobulin which is normal, LDH, vitamin B12, folic acid which were normal. No evidence of monoclonal gammopathy. He also had a CT scan of the chest on pelvis August 05, 2020 which demonstrated ongoing and stablesplenomegaly and no evidence of lymphadenopathy. Past Medical History: Colon cancer, diabetes mellitus, hypertension, hernia repair (February 2011), and hyperlipidemia. CAD Current Outpatient Medications Medication Sig Dispense Refill losartan (COZAAR) 50 mg tablet Take 50 mg by mouth once daily. HYDROcodone-acetaminophen (NORCO) 5-325 mg per tablet citalopram (CELEXA) 20 mg tablet Take 20 mg by mouth once daily. isosorbide mononitrate ER (IMDUR) 30 mg 24 hr tablet Take 30 mg by mouth once daily. allopurinol (ZYLOPRIM) 300 mg tablet Take 300 mg by mouth once daily. VITAMIN E, DL,TOCOPHERYL ACET, (VITAMIN E, DL, ACETATE,) 1,000 unit cap Take by mouth. NAMENDA XR 28 mg CSpX 28 mg once daily. donepezil (ARICEPT) 10 mg tablet Take 10 mg by mouth daily at bedtime. simvastatin (ZOCOR) 20 mg tablet Take 20 mg by mouth daily at bedtime. OXCARBAZEPINE 300 mg tablet Take 300 mg by mouth. Take 2 1/2 tablets in the morning and 2 1/2 tablet at night time. aspirin, enteric coated 81 mg EC tablet Take 81 mg by mouth once daily. insulin 70-30 aspart protamine-aspart (NOVOLOG MIX 70/30) 100 units/mL injection Inject subcutaneously twice daily before meals. Takes 45 units in the morning and 30 unit at supper time. iv contrast (will be provided with radiology test) CT ABD/PEL -Inject, intravenously, once for 1 dose.No IV access, insert saline lock prior to the beginning of sedation, infusion, injection of imaging exam. Discontinue saline lock post exam. If Pt. has a central line or IVAD, may access for administration according to line specific nursing protocol. Once exam is complete flush line and de-accessaccording to line specific nursing protocol in the CT contrast administration guidelines link. (Patient not taking: Reported on 08/30/2022) 1 Each 0 iv contrast (will be provided with radiology test) CT Chest W -Inject, intravenously, once for 1 dose.No IV access, insert saline lock prior to the beginning of sedation, infusion, injection of imaging exam. Discontinue saline lock post exam. If Pt. has a central line or IVAD, may access for administration according to line specific nursing protocol. Once exam is complete flush line and de-accessaccording to line specific nursing protocol in the CT contrast administration guidelines link. (Patient not taking: Reported on 08/30/2022) 1 Each 0 METOPROLOL TARTRATE, SHORT ACTING, 25 mg tablet Take 25 mg by mouth twice daily. (Patient not taking: Reported on 08/30/2022) No current facility-administered medications for this visit. Allergies: NEOMYCIN REVIEW OF SYSTEMS: CONSTITUTIONAL: No recent fevers chills or sweats. Low energy but no worse recently HEENT: No epistaxis or sinus issues, no mouth sores CARDIOVASCULAR: no chest pain, no leg swelling PULM: Denies current cough, hemoptysis or dyspnea GI:Bowel habits are unchanged from previous, Denies early satiety, denies bloating : No new urinary complaints, including dysuria, gross hematuria or pyuria. MUSC-SKEL: No new bone pain or back pain INTEGUMENTARY: No bruising or rash PHYSICAL EXAMINATION General: Alert and oriented, no distress, pleasant and cooperative. Cardiovascular: Regular rate rhythm normal S1-S2 Pulmonary: Clear to auscultation bilaterally, no crackles or wheezes Abdomen nontender nondistended, spleen 5 cm below left costal margin Neuro: Cranial 2 through 12 grossly intact Extremities: No edema or erythema BP 147/53[second attempt[ Pulse 52 Temp (Src) 97.7 (Oral) Resp 18 Ht 5' 7.047 (1.70m) Wt184 lb 6.4 oz (83.6kg) SpO2 100% BMI 28.84 kg/(m^2). IMAGING 07/18/2017 9:18 AM - Interface, Results In Impression IMPRESSION: 1. Post surgical changes in keeping with history of rectal cancer. No definite findings to suggest metastatic disease in the abdomen or pelvis. 2. Bilateral nephrolithiasis, right worse than left. Mild peripelvic and periureteral fat stranding which may be on the basis of irritation from passing stones. However, malignancy cannot be completely excluded. Urologic consultation is recommended. 3. Splenomegaly. Findings of prior granulomatous disease. PATHOLOGY 03/20 BONE MARROW BIOPSY FINAL DIAGNOSIS BONE MARROW, BIOPSY CORE, ASPIRATE CLOT, TOUCH IMPRINT, ASPIRATE AND PERIPHERAL BLOOD SMEARS: - CELLULAR (20-0%) BONE MARROW WITH TRILINEAGE HEMATOPOIESIS. - ADEQUATE STAINABLE IRON. - THROMBOCYTOPENIA AND LYMPHOPENIA. - SEE COMMENT. LABS: WBC (k/uL) Date Value 01/13/2019 4.18 RBC (m/uL) Date Value 01/13/2019 3.30 (L) Hemoglobin (g/dL) Date Value 01/13/2019 11.4 (L) Hematocrit (%) Date Value 01/13/2019 31.9 (L) MCV (fL) Date Value 01/13/2019 96.7 MCH (pG) Date Value 01/13/2019 34.5 (H) MCHC (g/dL) Date Value 01/13/2019 35.7 RDW-CV (%) Date Value 01/13/2019 16.3 (H) Platelet Count (k/uL) Date Value 01/13/2019 83 (L) MPV (fL) Date Value 01/13/2019 10.0 Glucose (mg/dL) Date Value 07/31/2018 178 (H) BUN (mg/dL) Date Value 07/31/2018 21 Creatinine (mg/dL) Date Value 07/31/2018 0.89 Sodium (mmol/L) Date Value 07/31/2018 140 Potassium (mmol/L) Date Value 07/31/2018 4.5 Chloride (mmol/L) Date Value 07/31/2018 105 CO2 (mmol/L) Date Value 07/31/2018 28 Protein, Total (g/dL) Date Value 07/31/2018 6.3 Albumin (g/dL) Date Value 07/31/2018 4.3 Calcium (mg/dL) Date Value 07/31/2018 9.5 Alkaline Phosphatase (U/L) Date Value 07/31/2018 87 Bilirubin, Total (mg/dL) Date Value 07/31/2018 0.8 AST (U/L) Date Value 07/31/2018 14 ALT (U/L) Date Value 07/31/2018 13 Hep C Antibody IA (no units) Date Value 10/23/2013 Negative URINALYSIS Specific [place], Ur Date Value Ref Range Status 06/26/2017 1.024 1.005 - 1.030 Final Glucose, Urine Date Value Ref Range Status 06/26/2017 50 (A) Negative mg/dL Final Bilirubin, Urine Date Value Ref Range Status 06/26/2017 Negative Negative Final Ketones, Urine Date Value Ref Range Status 06/26/2017 Negative Negative Final Hemoglobin/Blood,Ur Date Value Ref Range Status 06/26/2017 3+ (A) Negative Final Protein, Urine Date Value Ref Range Status 06/26/2017 100 (A) Negative mg/dL Final Urobilinogen, Urine Date Value Ref Range Status 05/20/2014 0.2 E.U./dL Normal (<1.1) EU Final WBC, Urine Date Value Ref Range Status 06/26/2017 11-25 (A) 0 - 5 /HPF Final Imaging: CT scan of the chest on pelvis August 05, 2020: 1. Postoperative changes, compatible with the patient's history of rectal carcinoma. Mild wall thickening involving the rectum, mild soft tissue prominence within the presacral region of the pelvis appears stable. 2. Bilateral nephrolithiasis, right greater than left is again noted. On the right, numerous calculi reside within the renal pelvis, without substantial obstruction, progressed in number. The previously identified dilatation of the right renal pelvis has improved. 3. Splenomegaly, stable. Stable appearance to the chest. No suspicious enlarging nodule or intrathoracic adenopathy. Evidence for prior granulomatous disease. Impression: This is a 77-year-old man with a history of colorectal cancer, currently under observation. Also being followed for mild pancytopenia. Previous evaluation with bone marrow negative for underlying hematopathologic condition. Does have enlarged spleen and we have been observing his counts thus far. His work-up at this time is negative and he continues to have stable spleen. Plan: 1. Colorectal cancer - patient completed therapy in April 2009. No further surveillance recommended at this time in regards to this. Follow standard protocols. He does have stenosis at the anastomosis and has declined further work up, Last colonoscopy 2018 2. Leukopenia, thrombocytopenia-likely related to splenomegaly. Check labs and if stable see back in 6 months Rey Crespo MD CC: Juan A Cox MD documented in this encounterA[facility] CenterEvaluation + Plan note No data available for this section [facility] [place] Evaluation note* Diagnosis Splenomegaly- Primary Abnormal finding of blood chemistry, unspecified documented in this encounter [facility]No [facility]No[facility] [employer] Other History general Narrative - Reported* Type Description Date Medical History hypertension Medical History drug induced bradycardia Medical History dyspnea on exertion Medical History obstructive sleep apnea Medical History hyperlipidemia type 2 Medical History benign prostatic hyperplasia Medical History generalized anxiety disorder Medical History pancytopenia 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 arteriosclerotic heart disease Medical History type 2 diabetes 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 Medical History generalized seizure disorder Medical History incontinence of fece s with fecal urgency Medical History thrombocytopenia Medical History mild cognitive impairment Surgical History lithotripsy ESWL wit h stent insertion Surgical History cholecystectomy 2009 Surgical History colon resection 2006 Surgical History hemorrhoidectomy 05/2019 Surgical History LHC 1995 Surgical History umbilical hernia repair 2009 Surgical History left inguinal hernia repair 200 8 low anterior resection Surgical History cystoscopy, urethral dilation, right stent 04/2017 Surgical History cystoscopy with righ t stent removal 07/2017 Hospitalization History see surgical history [employer] Other Progress note No data available for this section [facility] [place] [facility] Summary Purpose Family History No Family History Records FoundNo Family History Records FoundNo Family History Records FoundNo Family History Records FoundNo Family History Records Found Advance Directives No Advanced Directives Records FoundNo Advanced Directives Records FoundNo Advanced Directives Records FoundNo Advanced Directives Records FoundNo Advanced Directives Records Found Additional Source Comments (unrecognized sect ion and content) No Status Records FoundNo Status Records FoundNo Status Records FoundNo Status Records FoundNo Status Records Found INFORMATION SOURCE (unrecogn ized section and content) DATE CREATED AUTHOR 08/14/2018 [facility] DATE CREATED AUTHOR AUTHOR'S ORGANIZ ATION 09/01/2022 [facility] DATE CREATED AUTHOR AUTHOR'S ORGANIZ ATION 12/12/2022 [facility] DATE CREATED AUTHOR AUTHOR'S ORGANIZ ATION 12/13/[address] [facility] DATE CREATED AUTHOR AUTHOR'S ORGANIZ ATION 02/09/2024 [facility] EPIC Source Comments (unrecognize d section and content) In the event this informatio n is protected by the Federal Confidentiality of Alcohol and Drug Abuse Patient Records regulations: The Federal rules restrict any use of the information to criminally investigate or prosecute any alcohol or drug abuse patient.[facility] the event this information is protected by the Federal Confidentiality of Alcohol and Drug Abuse Patient Records regulations: The Federal rules restrict any use of the information to criminally investigate or prosecute any alcohol or drug abuse patient.[facility] Reason for Visit (unrecogniz ed section and content) Reason Comments Pancytopenia Follow up Reason Comments Care Coordination Lab Results Care Teams (unrecognized sec tion and content) Director Process Improvement Relationship Specialty Start Date End Date Juan A Cox DO PCP - General Internal Medicine 11/14/11 Director Process Improvement Relationship Specialty Start Date End Date Juan A Cox DO PCP - General Internal Medicine 11/14/11 FOR RECORDS PERTAINING TO PATIENTS WHO ARE OR HAVE BEEN ENROLLED IN A CHEMICAL DEPENDENCY/SUBSTANCEABUSE PROGRAM, SOME INFORMATION MAY BE OMITTED. This clinical summary was aggregated from multiple sources. Caution should be exercised in using it in the provision of clinical care. This summary normalizes information from multiple sources, and as a consequence, information in this document may materially change the coding, format and clinical context of patient data. In addition, data may be omitted in some cases. CLINICAL DECISIONS SHOULD BE BASED ON THE PRIMARY CLINICAL RECORDS. [facility] provides no warranty or guarantee of the accuracy or completeness of information in this document.
[2024-02-28 10:36] LABS: Bilirubin Urine NEGATIVE (NEGATIVE); Blood Urine SMALL (NEGATIVE); Clarity Urine CLEAR (CLEAR); Color Urine LT. YELLOW (YELLOW); Glucose Urine UA NEGATIVE (NEGATIVE); Ketones Urine NEGATIVE (NEGATIVE); Leukocyte Esterase Urine SMALL (NEGATIVE); Nitrite Urine POSITIVE (NEGATIVE); Protein Urine 100 mg/dL (NEG/TRACE); Specific Gravity Urine >=1.030 (1.005-1.025); Urobilinogen Urine 0.2 EU/dL (0.2-1.0); pH Urine 5.5 (5.0-9.0)
[2024-02-28 10:43] LABS: Bacteria Urine MODERATE #/HPF (NONE SEEN); Cast Seen? NONE SEEN #/LPF (NONE SEEN); Crystals Seen? None Seen #/HPF (None Seen); Mucus Urine NONE SEEN (NONE SEEN); Squamous Epithelial Cell Urine RARE #/LPF (NONE/RARE)
== END 2024-02-28 09:46 | disposition home or self-care (01) ==
LOC: LAB 09:45
PROVIDERS: PCP Internal Medicine; Visit Provider Internal Medicine
DX: N41.0 Acute prostatitis (principal)
CPT/HCPCS: 81001; 87086; 87150; 87186

== ENCOUNTER 2024-06-27 16:32 | Outpatient (OUT) | payer MEDICARE, SELFPAY ==
--- OUTSIDE RECORDS SUMMARY | 2024-06-27 16:50 | XMS_ITS | CCD ---
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 [address] Dr. Kelly Mukherjee CBC AUTO DIFFon 10-05-2022 BASO # 0.0 103/ul Normal 0.0-0.1 [facility] Comment on above: Performed By: #### B MP #### [facility] [address] [place] [address] Dr. Kelly Mukherjee Basophils/100 WBC (Bld) 0.3 % Normal 0.2-2.0 [facility] Comment on above: Performed By: #### B MP #### [facility] [address] [place] [address] Dr. Kelly Mukherjee EO # 0.1 103/ul Normal 0.0-0.7 [facility] Comment on above: Performed By: #### B MP #### [facility] [address] [place] [address] Dr. Kelly Mukherjee Eosinophils/100 WBC (Bld) 2.2 % Normal 0.9-7.0 [facility] Comment on above: Performed By: #### B MP #### [facility] [address] [place] [address] Dr. Kelly Mukherjee Erythrocyte distribution width (RBC) [Ratio] 14.8 % Normal 11.0-15.0 [facility] Comment on above: Performed By: #### B MP #### [facility] [address] [place] [address] Dr. Kelly Mukherjee Hematocrit (Bld) [Volume fraction] 29.5 % Critically low 42.0-54.0 [facility] Comment on above: Performed By: #### B MP #### [facility] [address] [place] [address] Dr. Kelly Mukherjee Hemoglobin (Bld) [Mass/Vol] 10.3 g/dL Critically low 14.0-18.0 [facility] Comment on above: Performed By: #### B MP #### [facility] [address] [place] [address] Dr. Kelly Mukherjee IG # 0.01 10e3/ul Normal 0.00-0.03 [facility] Comment on above: Performed By: #### B MP #### [facility] [address] [place] [address] Dr. Kelly Mukherjee IG % 0.3 % Normal 0.0-0.5 [facility] Comment on above: Performed By: #### B MP #### [facility] [address] [place] [address] Dr. Kelly Mukherjee LYMPH # 0.5 103/ul Critically low 1.2-3.8 [facility] Comment on above: Performed By: #### B MP #### [facility] [address] [place] [address] Dr. Kelly Mukherjee Lymphocytes/100 WBC (Bld) 16.0 % Critically low 20.5-6 0.0 [facility] Comment on above: Performed By: #### B MP #### [facility] [address] [place] [address] Dr. Kelly Mukherjee MANUAL DIFF REQ NO Normal [facility] Comment on above: Performed By: #### B MP #### [facility] [address] [place] [address] Dr. Kelly Mukherjee MCH (RBC) [Entitic mass] 34.1 pg Critically high 25.9-3 4.0 [facility] Comment on above: Performed By: #### B MP #### [facility] [address] [place] [address] Dr. Kelly Mukherjee MCHC (RBC) [Mass/Vol] 34.9 g/dL Normal 29.9-35.2 [facility] Comment on above: Performed By: #### B MP #### [facility] [address] [place] [address] Dr. Kelly Mukherjee MCV (RBC) [Entitic vol] 97.7 fL Critically high 80.0-94 .0 [facility] Comment on above: Performed By: #### B MP #### [facility] [address] [place] [address] Dr. Kelly Mukherjee MONO # 0.2 103/ul Critically low 0.3-0.8 [facility] Comment on above: Performed By: #### B MP #### [facility] [address] [place] [address] Dr. Kelly Mukherjee Monocytes/100 WBC (Bld) 5.8 % Normal 1.7-12.0 [facility] Comment on above: Performed By: #### B MP #### [facility] [address] [place] [address] Dr. Kelly Mukherjee NEUT # 2.4 103/ul Normal 1.4-6.5 [facility] Comment on above: Performed By: #### B MP #### [facility] [address] [place] [address] Dr. Kelly Mukherjee Neutrophils/100 WBC (Bld) 75.4 % Critically high 43.0- 75.0 [facility] Comment on above: Performed By: #### B MP #### [facility] [address] [place] [address] Dr. Kelly Mukherjee Platelet mean volume (Bld) [Entitic vol] 10.1 fL Normal 9.5-13.5 [facility] Comment on above: Performed By: #### B MP #### [facility] [address] [place] [address] Dr. Kelly Mukherjee PLT 63 103/ul Critically low 150-450 [facility] Comment on above: Performed By: #### B MP #### [facility] [address] [place] [address] Dr. Kelly Mukherjee RBC 3.02 106/ul Critically low 4.70-6.10 [facility] Comment on above: Performed By: #### B MP #### [facility] [address] [place] [address] Dr. Kelly Mukherjee WBC 3.1 103/ul Critically low 4.0-11.0 [facility] Comment on above: Performed By: #### B MP #### [facility] [address] [place] [address] Dr. Kelly Mukherjee ER URINE PROFILEon 2 Bilirubin Ql (U) Negative Normal NEGATIVE [facility] Comment on above: Performed By: #### B MP #### [facility] [address] [place] [address] Dr. Kelly Mukherjee Clarity (U) CLEAR Normal CLEAR [facility] Comment on above: Performed By: #### B MP #### [facility] [address] [place] [address] Dr. Kelly Mukherjee Color (U) LT. YELLOW Normal YELLOW [facility] Comment on above: Performed By: #### B MP #### [facility] [address] [place] [address] Dr. Kelly MCELROYVirginia A micrscopic examination will be performed if indicated. Normal [facility] Comment on above: Performed By: #### B MP #### [facility] [address] [place] [address] Dr. Kelly Mukherjee Glucose Ql (U) 250 mg/dl Abnormal NEGATIVE [facility] Comment on above: Performed By: #### B MP #### [facility] [address] [place] [address] Dr. Kelly Mukherjee Hemoglobin Ql (U) Negative Normal NEGATIVE [facility] Comment on above: Performed By: #### B MP #### [facility] [address] [place] [address] Dr. Kelly Mukherjee Ketones Ql (U) Negative Normal NEGATIVE [facility] Comment on above: Performed By: #### B MP #### [facility] [address] [place] [address] Dr. Kelly Mukherjee LEUKOCYTES Negative Normal NEGATIVE [facility] Comment on above: Performed By: #### B MP #### [facility] [address] [address] [address] Kelly Mukherjee Nitrite Ql (U) Negative Normal NEGATIVE [facility] Comment on above: Performed By: #### B MP #### [facility] [address] [address] [address] Kelly Mukherjee pH (U) 7.0 [pH] Normal 5-9 [facility] Comment on above: Performed By: #### B MP #### [facility] [address] [address] [address] Kelly Mukherjee Protein (U) [Mass/Vol] 100 mg/dL Abnormal NEGAT NADER/ TRACE [facility] Comment on above: Performed By: #### B MP #### [facility] [address] [place] [address] Dr. Kelly Mukherjee SPEC GRAVITY 1.020 Normal 1.005-<=1.02 5 [facility] Comment on above: Performed By: #### B MP #### [facility] [address] [address] [address] Kelly Mukherjee UR MICRO IND NOT INDICATED Normal [facility] Comment on above: Performed By: #### B MP #### [facility] [address] [address] [address] Kelly Mukherjee Urobilinogen Qn (U) 0.2 {Jun'U}/dL Normal 0.2 - 1. 0 [facility] Comment on above: Performed By: #### B MP #### [facility] [address] [place] [address] Dr. Kelly Mukherjee POINT OF CARE GLUCOSEon 09-08 Glucose [Mass/Vol] 253 mg/dL Critically high 74-106 [facility] Comment on above: Performed By: #### P OCGLUC #### [facility] [address] [place] [address] Dr. Kelly Mukherjee PROF CHEM 8 (BAS METB)on Anion gap [Moles/Vol] 8.5 mmol/L Normal [facility] Comment on above: Performed By: #### B MP #### [facility] [address] [address] [address] Kelly Mukherjee Calcium [Mass/Vol] 8.7 mg/dL Normal 8.5-10.1 [facility] Comment on above: Performed By: #### B MP #### [facility] [address] [address] [address] Kelly Mukherjee Chloride [Moles/Vol] 106 mmol/L Normal 98-107 [facility] Comment on above: Performed By: #### B MP #### [facility] [address] [address] [address] Kelly Mukherjee CO2 [Moles/Vol] 29.0 mmol/L Normal 21.0-32.0 [facility] Comment on above: Performed By: #### B MP #### [facility] [address] [address] [address] Kelly Mukherjee Creatinine [Mass/Vol] 0.84 mg/dL Normal 0.70-1.30 [facility] Comment on above: Performed By: #### B MP #### [facility] [address] [address] [address] Kelly Mukherjee EGFR-AF BURUNDIAN >60 Normal >=60 [facility] Comment on above: Performed By: #### B MP #### [facility] [address] [address] [address] Kelly Mukherjee EGFR-NON AF BURUNDIAN >60 Normal >=60 [facility] Comment on above: Performed By: #### B MP #### [facility] [address] [address] [address] Kelly Mukherjee Glucose [Mass/Vol] 119 mg/dL Critically high 74-106 [facility] Comment on above: Performed By: #### B MP #### [facility] [address] [address] [address] Kelly Mukherjee Potassium [Moles/Vol] 3.5 mmol/L Normal 3.5-5.1 [facility] Comment on above: Performed By: #### B MP #### [facility] [address] [address] [address] Kelly Mukherjee Sodium [Moles/Vol] 140 mmol/L Normal 136-145 [facility] Comment on above: Performed By: #### B MP #### [facility] [address] [place] [address] Dr. Kelly Mukherjee Urea nitrogen [Mass/Vol] 21.0 mg/dL Critically high 7.0-18 .0 [facility] Comment on above: Performed By: #### B MP #### [facility] [address] [place] [address] Dr. Kelly Mukherjee Urea nitrogen/Creatinine [Mass ratio] 25.0 mg/mg Normal [facility] Comment on above: Performed By: #### B MP #### [facility] [address] [place] [address] Dr. Kelly Mukherjee CBC AUTO DIFFon 10-04-2022 BASO # 0.0 103/ul Normal 0.0-0.1 [facility] Comment on above: Performed By: #### P OCGLUC #### [facility] [address] [place] [address] Dr. Kelly Mukherjee Basophils/100 WBC (Bld) 0.2 % Normal 0.2-2.0 [facility] Comment on above: Performed By: #### P OCGLUC #### [facility] [address] [place] [address] Dr. Kelly Mukherjee EO # 0.0 103/ul Normal 0.0-0.7 [facility] Comment on above: Performed By: #### P OCGLUC #### [facility] [address] [place] [address] Dr. Kelly Mukherjee Eosinophils/100 WBC (Bld) 1.0 % Normal 0.9-7.0 [facility] Comment on above: Performed By: #### P OCGLUC #### [facility] [address] [place] [address] Dr. Kelly Mukherjee Erythrocyte distribution width (RBC) [Ratio] 15.1 % Critically high 11.0-15.0 [facility] Comment on above: Performed By: #### P OCGLUC #### [facility] [address] [address] [address] Kelly Mukherjee Hematocrit (Bld) [Volume fraction] 30.3 % Critically low 42.0-54.0 [facility] Comment on above: Performed By: #### P OCGLUC #### [facility] [address] [address] [address] Kelly Mukherjee Hemoglobin (Bld) [Mass/Vol] 10.7 g/dL Critically low 14.0-18.0 [facility] Comment on above: Performed By: #### P OCGLUC #### [facility] [address] [address] [address] Kelly Mukherjee IG # 0.01 10e3/ul Normal 0.00-0.03 [facility] Comment on above: Performed By: #### P OCGLUC #### [facility] [address] [address] [address] Kelly Mukherjee IG % 0.2 % Normal 0.0-0.5 [facility] Comment on above: Performed By: #### P OCGLUC #### [facility] [address] [address] [address] Kelly Mukherjee LYMPH # 0.4 103/ul Critically low 1.2-3.8 [facility] Comment on above: Performed By: #### P OCGLUC #### [facility] [address] [address] [address] Kelly Mukherjee Lymphocytes/100 WBC (Bld) 8.9 % Critically low 20.5-6 0.0 [facility] Comment on above: Performed By: #### P OCGLUC #### [facility] [address] [address] [address] Kelly Mukherjee MANUAL DIFF REQ NO Normal [facility] Comment on above: Performed By: #### P OCGLUC #### [facility] [address] [address] [address] Kelly Mukherjee MCH (RBC) [Entitic mass] 34.1 pg Critically high 25.9-3 4.0 [facility] Comment on above: Performed By: #### P OCGLUC #### [facility] [address] [address] [address] Kelly Mukherjee MCHC (RBC) [Mass/Vol] 35.3 g/dL Critically high 29.9-35.2 [facility] Comment on above: Performed By: #### P OCGLUC #### [facility] [address] [address] [address] Kelly Mukherjee MCV (RBC) [Entitic vol] 96.5 fL Critically high 80.0-94 .0 [facility] Comment on above: Performed By: #### P OCGLUC #### [facility] [address] [address] [address] Kelly Mukherjee MONO # 0.2 103/ul Critically low 0.3-0.8 [facility] Comment on above: Performed By: #### P OCGLUC #### [facility] [address] [address] [address] Kelly Mukherjee Monocytes/100 WBC (Bld) 6.0 % Normal 1.7-12.0 [facility] Comment on above: Performed By: #### P OCGLUC #### [facility] [address] [address] [address] Kelly Mukherjee NEUT # 3.4 103/ul Normal 1.4-6.5 [facility] Comment on above: Performed By: #### P OCGLUC #### [facility] [address] [address] [address] Kelly Mukherjee Neutrophils/100 WBC (Bld) 83.7 % Critically high 43.0- 75.0 [facility] Comment on above: Performed By: #### P OCGLUC #### [facility] [address] [address] [address] Kelly Mukherjee Platelet mean volume (Bld) [Entitic vol] 10.2 fL Normal 9.5-13.5 [facility] Comment on above: Performed By: #### P OCGLUC #### [facility] [address] [address] [address] Kelly Mukherjee PLT 76 103/ul Critically low 150-450 [facility] Comment on above: Performed By: #### P OCGLUC #### [facility] [address] [place], [place] [address] Dr. Kelly Mukherjee RBC 3.14 106/ul Critically low 4.70-6.10 [facility] Comment on above: Performed By: #### P OCGLUC #### [facility] [address] [place], [place] [address] Dr. Kelly Mukherjee WBC 4.0 103/ul Normal 4.0-11.0 [facility] Comment on above: Performed By: #### P OCGLUC #### [facility] [address] [place], [place] [address] HEAD WO CONon [...] SYLVESTER BARBOUR Date: 2022-10-04 15:34 Normal [facility]08 SARS-CoV-2 (COVID-19) RNA ABIMBOLA+probe Ql (Unsp spec) Not detected Normal NOT DETECTED [facility] Comment on above: Result Comment: When diagnostic [...] for this test is supported by the [place] of [employer] and Human Service's declaration that [...] used). Performed By: #### C VDTBH #### [facility] [address] [place] [address] Dr. Kelly Mukherjee POINT OF CARE GLUCOSEon 09-08 Glucose [Mass/Vol] 134 mg/dL Critically high 74-106 [facility] Comment on above: Performed By: #### P OCGLUC #### [facility] [address] [place] [address] Dr. Kelly Mukherjee PROF CHEM 8 (BAS METB)on Anion gap [Moles/Vol] 12.9 mmol/L Normal [facility] Comment on above: Performed By: #### B MP #### [facility] [address] [place] [address] Dr. Kelly Mukherjee Calcium [Mass/Vol] 9.0 mg/dL Normal 8.5-10.1 [facility] Comment on above: Performed By: #### B MP #### [facility] [address] [place] [address] Dr. Kelly Mukherjee Chloride [Moles/Vol] 106 mmol/L Normal 98-107 [facility] Comment on above: Performed By: #### B MP #### [facility] [address] [place] [address] Dr. Kelly Mukherjee CO2 [Moles/Vol] 27.2 mmol/L Normal 21.0-32.0 [facility] Comment on above: Performed By: #### B MP #### [facility] [address] [address] [address] Kelly Mukherjee Creatinine [Mass/Vol] 0.98 mg/dL Normal 0.70-1.30 [facility] Comment on above: Performed By: #### B MP #### [facility] [address] [address] [address] Kelly Mukherjee EGFR-AF BURUNDIAN >60 Normal >=60 [facility] Comment on above: Performed By: #### B MP #### [facility] [address] [place] [address] Dr. Kelly Mukherjee EGFR-NON AF BURUNDIAN >60 Normal >=60 [facility] Comment on above: Performed By: #### B MP #### [facility] [address] [place] [address] Dr. Kelly Mukherjee Glucose [Mass/Vol] 146 mg/dL Critically high 74-106 [facility] Comment on above: Performed By: #### B MP #### [facility] [address] [place] [address] Dr. Kelly Mukherjee Potassium [Moles/Vol] 4.1 mmol/L Normal 3.5-5.1 [facility] Comment on above: Performed By: #### B MP #### [facility] [address] [place] [address] Dr. Kelly Mukherjee Sodium [Moles/Vol] 142 mmol/L Normal 136-145 [facility] Comment on above: Performed By: #### B MP #### [facility] [address] [address] [address] Kelly Mukherjee Urea nitrogen [Mass/Vol] 24.0 mg/dL Critically high 7.0-18 .0 [facility] Comment on above: Performed By: #### B MP #### [facility] [address] [place] [address] Dr. Kelly Mukherjee Urea nitrogen/Creatinine [Mass ratio] 24.5 mg/mg Normal [facility] Comment on above: Performed By: #### B MP #### [facility] [address] [place] [address] Dr. Kelly Mukherjee PROTIMEon 10-04-2022 INR Coag (PPP) [Relative time] 1.06 {INR} Normal [facility] Comment on above: Performed By: #### C VDTBH #### [facility] [address] [place] [address] Dr. Kelly Mukherjee INR GUIDELINES SEE BELOW Normal [facility] Comment on above: Result Comment: JULIANA RED INR: 2.0 - 3.0 CONDITIONS NOT LISTED BELOW 2.5 - 3.5 FOR PROSTHETIC HEART VALVE REPLACEMENT 2.5 - 3.5 RECURRENT THROMBOSIS Performed By: #### C VDTBH #### [facility] [address] [place] [address] Dr. Kelly Mukherjee PT Coag (PPP) [Time] 11.4 s Normal 9.0-11.6 [facility] Comment on above: Performed By: #### C VDTBH #### [facility] [address] [place] [address] Dr. Kelly Mukherjee PTTon 10-04-2022 aPTT Coag (Bld) [Time] 24.5 s Normal 22.3-36.2 Th [facility] Comment on above: Performed By: #### C VDTBH #### [facility] [address] [place] [address] Dr. Kelly Mukherjee TROPONIN, HIGH SENSITIVITYon 10-04-2022 HSTROP 7.1 pg/mL Normal 4.0-76.1 [facility] Comment on above: Result Comment: CUT- OFF POINTS HAVE BEEN ESTABLISHED BASED ON THE FOURTH UNIVERSAL DEFINITIONS OF MYOCARDIAL INFARCTION. THE UPPER REFERENCE LIMIT (URL) OF TROPONIN, DEFINED THE 99TH PERCENTILE OF cTnI DISTRIBUTION IN A REFERENCE POPULATION, HAS BEEN CONFIRMED THE DECISION THRESHOLD FOR MO DIAGNOSIS. Performed By: #### C VDTBH #### [facility] [address] [place] [address] Dr. Kelly Mukherjee XR CHEST 1 Von [...] by: SYLVESTER BARBOUR Date: 2022-10-04 15:31 Normal [facility] BRIAN GOULD ([id number]) 1945 M Date Time Provider Department 09/01/22 ROLANDO BOWEN During your visit today, we recorded the following information about you: Rolando Bowen RN 09/01/2022 1:18 PM Signed ----- Message from Tricia Crespo MD sent at 08/30/2022 4:41 PM [...] reaction(s): AOF Date Reviewed: 08/30/2022 Reviewed by: Tricia Crespo MD - Fully Assessed Reason for Visit: Care Coordination [6567] Cmt: Lab Results Prescriptions as of 09/01/2022 - losartan (COZAAR) 50 mg tablet Take 50 mg by mouth once daily. - HYDROcodone-acetami nophen (NORCO) 5-325 mg per tablet - citalopram [...] Status:Closed by ROLANDO BOWEN on 09/01/22 Normal [facility] CBC W Auto Differential pane l (Bld)on 08-30-2022 Basophils (Bld) [#/Vol] 10*3/uL Normal <0.11 C [facility] Comment on above: Order Comment: Speci men Type: BLOOD SPECIMEN Ordering Facility: [facility] Address: [address] [place] [phone] Performed By: #### 5 7021-8 #### [facility] CLIA [id number] [address] [place] [address]96 Basophils/100 WBC (Bld) 0.5 % Normal C [facility] Comment on above: Order Comment: Speci men Type: BLOOD SPECIMEN Ordering Facility: [facility] Address: [address] [place] [address] Performed By: #### 5 7021-8 #### [facility] CLIA [id number] [address] [place] [address] 13935 Differential cell count method Nom (Bld) Auto Normal [facility] Comment on above: Order Comment: Speci men Type: BLOOD SPECIMEN Ordering Facility: [facility] Address: [address] [place] [address] Performed By: #### 5 7021-8 #### [facility] CLIA [id number] [address] [place] [address]75[address] Eosinophils (Bld) [#/Vol] 0.08 10*3/uL Normal <0.46 [facility] Comment on above: Order Comment: Speci men Type: BLOOD SPECIMEN Ordering Facility: [facility] Address: [address] [place] [address] Performed By: #### 5 7021-8 #### [facility] CLIA [id number] [address] [place] [address] 83595 Eosinophils/100 WBC (Bld) 2.1 % Normal [facility] Comment on above: Order Comment: Speci men Type: BLOOD SPECIMEN Ordering Facility: [facility] Address: [address] [place] [address] Performed By: #### 5 7021-8 #### [facility] CLIA [id number] [address] [place] [address] Erythrocyte distribution width (RBC) [Ratio] 15.9 % High 11.5-15.0 [facility] Comment on above: Order Comment: Speci men Type: BLOOD SPECIMEN Ordering Facility: [facility] Address: [address] [address] Performed By: #### 5 7021-8 #### [facility] CLIA [id number] [address] [place] [address] Hematocrit (Bld) [Volume fraction] 33.5 % Low 39.0-51.0 [facility] Comment on above: Order Comment: Speci men Type: BLOOD SPECIMEN Ordering Facility: [facility] Address: [address] [address] Performed By: #### 5 7021-8 #### [facility] CLIA [id number] [address] [place] [address] 46974 Hemoglobin (Bld) [Mass/Vol] 11.4 g/dL Low 13.0-17.0 [facility] Comment on above: Order Comment: Speci men Type: BLOOD SPECIMEN Ordering Facility: [facility] Address: [address] [place] [address] Performed By: #### 5 7021-8 #### [facility] CLIA [id number] [address] [place] [address] 12456 Immature granulocytes (Bld) [#/Vol] 10*3/uL Normal <0.10 [facility] Comment on above: Order Comment: Speci men Type: BLOOD SPECIMEN Ordering Facility: [facility] Address: [address] [address] Performed By: #### 5 7021-8 #### [facility] CLIA [id number] [address] [place] [address]2690 Immature granulocytes/100 WBC (Bld) 0.3 % Normal [facility] Comment on above: Order Comment: Speci men Type: BLOOD SPECIMEN Ordering Facility: [facility] Address: [address] [address] Performed By: #### 5 7021-8 #### [facility] CLIA [id number] [address] [place] [address] 16652 Lymphocytes (Bld) [#/Vol] 0.60 10*3/uL Low 1.00-4.0 0 [facility] Comment on above: Order Comment: Speci men Type: BLOOD SPECIMEN Ordering Facility: [facility] Address: [address] [address] Performed By: #### 5 7021-8 #### [facility] CLIA [id number] [address] [place] [address] 16241 Lymphocytes/100 WBC (Bld) 16.1 % Normal [facility] Comment on above: Order Comment: Speci men Type: BLOOD SPECIMEN Ordering Facility: [facility] Address: [address] [address] Performed By: #### 5 7021-8 #### [facility] CLIA [id number] [address] [place] [address] 59128 MCH (RBC) [Entitic mass] 33.3 pg Normal 26.0-34.0 [facility] Comment on above: Order Comment: Speci men Type: BLOOD SPECIMEN Ordering Facility: [facility] Address: [address] [address] Performed By: #### 5 7021-8 #### [facility] CLIA [id number] [address] [place] [address] 34390 MCHC (RBC) [Mass/Vol] 34.0 g/dL Normal 30.5-36.[address] [facility] Comment on above: Order Comment: Speci men Type: BLOOD SPECIMEN Ordering Facility: [facility] Address: [address] [address] Performed By: #### 5 7021-8 #### [facility] CLIA [id number] [address] [place] [address] 52811 MCV (RBC) [Entitic vol] 98.0 fL Normal 80.0-100.0 C [facility] Comment on above: Order Comment: Speci men Type: BLOOD SPECIMEN Ordering Facility: [facility] Address: [address] [address] Performed By: #### 5 7021-8 #### [facility] CLIA [id number] [address] [place] [address] 18181 Monocytes (Bld) [#/Vol] 0.26 10*3/uL Normal <0.87 [facility] Comment on above: Order Comment: Speci men Type: BLOOD SPECIMEN Ordering Facility: [facility] Address: [address] [place] [address] Performed By: #### 5 7021-8 #### [facility] CLIA [id number] [address] [place] [address] 02727 Monocytes/100 WBC (Bld) 7.0 % Normal [facility] Comment on above: Order Comment: Speci men Type: BLOOD SPECIMEN Ordering Facility: [facility] Address: [address] [place] [address] Performed By: #### 5 7021-8 #### [facility] CLIA [id number] [address] [place] [address] 40029 Neutrophils (Bld) [#/Vol] 2.76 10*3/uL Normal 1.45-7.5 0 [facility] Comment on above: Order Comment: Speci men Type: BLOOD SPECIMEN Ordering Facility: [facility] Address: [address] [place] [address] Performed By: #### 5 7021-8 #### [facility] CLIA [id number] [address] [place] [address] 44191 Neutrophils/100 WBC (Bld) 74.0 % Normal [facility] Comment on above: Order Comment: Speci men Type: BLOOD SPECIMEN Ordering Facility: [facility] Address: [address] [place] [address] Performed By: #### 5 7021-8 #### [facility] CLIA [id number] [address] [place] [address] 95131 Nucleated RBC (Bld) [#/Vol] 10*3/uL Normal <0.01 [facility] Comment on above: Order Comment: Speci men Type: BLOOD SPECIMEN Ordering Facility: [facility] Address: [address] [address] Performed By: #### 5 7021-8 #### [facility] CLIA [id number] [address] [place] [address] 14819 Nucleated RBC/100 WBC (Bld) [Ratio] 0.0 /100 WBC Normal [facility] Comment on above: Order Comment: Speci men Type: BLOOD SPECIMEN Ordering Facility: [facility] Address: [address] [place] [address] Performed By: #### 5 7021-8 #### [facility] CLIA [id number] [address] [place] [address] 27018 Platelet mean volume (Bld) [Entitic vol] 9.7 fL Normal 9.0-12.7 [facility] Comment on above: Order Comment: Speci men Type: BLOOD SPECIMEN Ordering Facility: [facility] Address: [address] [place] [address] Performed By: #### 5 7021-8 #### [facility] CLIA [id number] [address] [place] [address] 43630 Platelets (Bld) [#/Vol] 81 10*3/uL Low 150-400 C [facility] Comment on above: Order Comment: Speci men Type: BLOOD SPECIMEN Ordering Facility: [facility] Address: [address] [place] [address] [facility] Performed By: #### 5 7021-8 #### [facility] CLIA [id number] [address] [place] [address] 42992 RBC (Bld) [#/Vol] 3.42 10*6/uL Low 4.20-6.00 [facility] Comment on above: Order Comment: Speci men Type: BLOOD SPECIMEN Ordering Facility: [facility] Address: [address] [place] [address] Performed By: #### 5 7021-8 #### [facility] CLIA [id number] [address] [place] [address] WBC (Bld) [#/Vol] 3.73 10*3/uL Normal 3.70-11.00 [facility] Comment on above: Order Comment: Speci men Type: BLOOD SPECIMEN Ordering Facility: [facility] Address: [address] [place] [phone] Performed By: #### 5 7021-8 #### [facility] CLIA [id number] [address] [place] [address] Basophils (Bld) [#/Vol] <0.11 k/uL [facility] Basophils/100 WBC (Bld) 0.5 % C [facility] Differential cell count method Nom (Bld) Auto [facility] Eosinophils (Bld) [#/Vol] 0.08 10*3/uL <0.46 k/ uL [facility] Eosinophils/100 WBC (Bld) 2.1 % [facility] Erythrocyte distribution width (RBC) [Ratio] 15.9 % High 11.5 - 15.0 % [facility] Hematocrit (Bld) [Volume fraction] 33.5 % Low 39.0 - 51.0 % [facility] Hemoglobin (Bld) [Mass/Vol] 11.4 g/dL Low 13.0 - 17.0 g/dL [facility] Immature granulocytes (Bld) [#/Vol] <0.10 k/uL [facility] Immature granulocytes/100 WBC (Bld) 0.3 % [facility] Lymphocytes (Bld) [#/Vol] 0.60 10*3/uL Low 1. 00 - 4.00 k/uL [facility] Lymphocytes/100 WBC (Bld) 16.1 % [facility] MCH (RBC) [Entitic mass] 33.3 pg 26. 0 - 34.0 pg [facility] MCHC (RBC) [Mass/Vol] 34.0 g/dL 30.5 - 36.0 g/dL [facility] MCV (RBC) [Entitic vol] 98.0 fL 80.0 - 100.0 fL [facility] Monocytes (Bld) [#/Vol] 0.26 10*3/uL <0.87 k/uL [facility] Monocytes/100 WBC (Bld) 7.0 % [facility] Neutrophils (Bld) [#/Vol] 2.76 10*3/uL 1. 45 - 7.50 k/uL [facility] Neutrophils/100 WBC (Bld) 74.0 % [facility] Nucleated RBC (Bld) [#/Vol] <0.01 k/uL [facility] Nucleated RBC/100 WBC (Bld) [Ratio] 0.0 /100 WBC [facility] Platelet mean volume (Bld) [Entitic vol] 9.7 fL 9.0 - 12.7 fL [facility] Platelets (Bld) [#/Vol] 81 10*3/uL Low 150 - 400 k/uL [facility] RBC (Bld) [#/Vol] 3.42 10*6/uL Low 4.20 - 6.0 0 m/uL [facility] WBC (Bld) [#/Vol] 3.73 10*3/uL 3.70 - 11. 00 k/uL [facility] CNOVSPon 08-30-2022 CNOVSP Visit (SP) Office ([place]) ---- BRIAN GOULD ([id number]) 1945 M Date Time Provider Department 08/30/22 3:00 PM TRICIA CREPSO During your visit today, we recorded the following information about you: Temperature Pulse Respiration Blood pressure 97.7 degrees 59/minute 18/minute 158/59 Weight Height 73.6 kg 1.703 m Tricia Crespo MD 08/30/2022 3:09 PM Signed Patient: Brian Gould [facility]: [facility] : 1945 Attending Physician: Dr. Vazquez Quinonez [...] Take 50 mg by mouth once daily. HYDROcodone-acetami nophen (NORCO) 5-325 mg per tablet citalopram (CELEXA) [...] not taking: Reported on 08/30/2022) No current facility-administer ed medications for this visit. Allergies: NEOMYCIN REVIEW [...] distress, pl (more content not included)... Normal [facility] Comprehensive metabolic 2000 panelon 08-30-2022 Albumin [Mass/Vol] 4.5 g/dL Normal 3.9-4.9 [facility] Comment on above: Order Comment: Speci men Type: BLOOD SPECIMEN Ordering Facility: [facility] Address: [address] [place] [phone] Performed By: #### 2 532-0, 75004-2 #### [facility] CLIA [id number] [address] [place] [address] 77450 ALP [Catalytic activity/Vol] 86 U/L Normal 38-113 [facility] Comment on above: Order Comment: Speci men Type: BLOOD SPECIMEN Ordering Facility: [facility] Address: [address] [address] Performed By: #### 2 532-0, 71253-2 #### [facility] CLIA [id number] [address] [place] [address] 37771 ALT [Catalytic activity/Vol] 15 U/L Normal 10-54 [facility] Comment on above: Order Comment: Speci men Type: BLOOD SPECIMEN Ordering Facility: [facility] Address: [address] [place] [address] Performed By: #### 2 532-0, #### [facility] CLIA [id number] [address] [place] [address] 37961 Anion gap [Moles/Vol] 8 mmol/L Low 9-[address] [facility] Comment on above: Order Comment: Speci men Type: BLOOD SPECIMEN Ordering Facility: [facility] Address: [address] [place] [address] Performed By: #### 2 532-0, 05444-2 #### [facility] CLIA [id number] [address] [place] [address] 75401 AST [Catalytic activity/Vol] 16 U/L Normal 14-40 [facility] Comment on above: Order Comment: Speci men Type: BLOOD SPECIMEN Ordering Facility: [facility] Address: [address] [address] Performed By: #### 2 532-0, 56925-8 #### [facility] CLIA [id number] [address] [place] [address] 17324 Bilirubin [Mass/Vol] 0.5 mg/dL Normal 0.2-1.3 [facility] Comment on above: Order Comment: Speci men Type: BLOOD SPECIMEN Ordering Facility: [facility] Address: [address] [place] [address], [place] [address] Performed By: #### 2 532-0, #### [facility] CLIA [id number] [address] [place] [address] 00061 Calcium [Mass/Vol] 9.5 mg/dL Normal 8.5-10.2 [facility] Comment on above: Order Comment: Speci men Type: BLOOD SPECIMEN Ordering Facility: [facility] Address: [address] [address] Performed By: #### 2 532-0, #### [facility] CLIA [id number] [address] [place] [address] 31936 Chloride [Moles/Vol] 110 mmol/L High 97-105 [facility] Comment on above: Order Comment: Speci men Type: BLOOD SPECIMEN Ordering Facility: [facility] Address: [address] [address] Performed By: #### 2 532-0, #### [facility] CLIA [id number] [address] [place] [address] 62044 CO2 [Moles/Vol] 30 mmol/L Normal 22-30 [facility] Comment on above: Order Comment: Speci men Type: BLOOD SPECIMEN Ordering Facility: [facility] Address: [address] [address] Performed By: #### 2 532-0, #### [facility] CLIA [id number] [address] [place] [address] 79804 Creatinine [Mass/Vol] 0.93 mg/dL Normal 0.73-1.[address] [facility] Comment on above: Order Comment: Speci men Type: BLOOD SPECIMEN Ordering Facility: [facility] Address: [address] [address] Performed By: #### 2 532-0, #### [facility] CLIA [id number] [address] [place] [address] 98501 ESTIMATED GLOMERULAR FILTRATION RATE 85 mL/min/1.73m??? Normal >=60 [facility] Comment on above: Order Comment: Helio helton Type: BLOOD SPECIMEN Ordering Facility: [facility] Address: [place] [address] Result Comment: Arelis mated Glomerular Filtration Rate [...] actual GFR. Performed By: #### 2 532-0, 29088-2 #### [facility] CLIA [id number] [address] [place] [address] 32096 Glucose [Mass/Vol] 86 mg/dL Normal 74-99 [facility] Comment on above: Order Comment: Helio helton Type: BLOOD SPECIMEN Ordering Facility: [facility] Address: [place] [address] Result Comment: The [place] [employer] (ADA) provides guidance for cutoff [...] Standards of Medical Care in Diabetes 2016, [place] [employer]. Diabetes Care. 2016.39(Suppl 1). Performed By: #### 2 532-0, 57269-0 #### [facility] CLIA [id number] [address] [place] [address] 05276 Potassium [Moles/Vol] 4.3 mmol/L Normal 3.7-5.[address] [facility] Comment on above: Order Comment: Helio helton Type: BLOOD SPECIMEN Ordering Facility: [facility] Address: [address] [address] Performed By: #### 2 532-0, 35790-7 #### [facility] CLIA [id number] [address] [place] [address] 12648 Protein [Mass/Vol] 6.4 g/dL Normal 6.3-8.0 [facility] Comment on above: Order Comment: Speci men Type: BLOOD SPECIMEN Ordering Facility: [facility] Address: [address] [address] Performed By: #### 2 532-0, #### [facility] CLIA [id number] [address] [place] [address] 28724 Sodium [Moles/Vol] 148 mmol/L High 136-144 [facility] Comment on above: Order Comment: Speci men Type: BLOOD SPECIMEN Ordering Facility: [facility] Address: [address] [address] Performed By: #### 2 532-0, #### [facility] CLIA [id number] [address] [place] [address] 43714 Urea nitrogen [Mass/Vol] 24 mg/dL Normal 9-24 [facility] Comment on above: Order Comment: Speci men Type: BLOOD SPECIMEN Ordering Facility: [facility] Address: [address] [address] Performed By: #### 2 532-0, #### [facility] CLIA [id number] [address] [place] [address] 70578 Albumin [Mass/Vol] 4.5 g/dL 3.9 - 4.9 g/dL [facility] ALP [Catalytic activity/Vol] 86 U/L 38 - 113 U/L [facility] ALT [Catalytic activity/Vol] 15 U/L 10 - 54 U/L [facility] Anion gap [Moles/Vol] 8 mmol/L Low 9 - 18 mmol/L [facility] AST [Catalytic activity/Vol] 16 U/L 14 - 40 U/L [facility] Bilirubin [Mass/Vol] 0.5 mg/dL 0.2 - 1 .3 mg/dL [facility] Calcium [Mass/Vol] 9.5 mg/dL 8.5 - 10. 2 mg/dL [facility] Chloride [Moles/Vol] 110 mmol/L High 97 - 10 5 mmol/L [facility] CO2 [Moles/Vol] 30 mmol/L 22 - 30 mmol/L [facility] Creatinine [Mass/Vol] 0.93 mg/dL 0.73 - 1.22 mg/dL [facility] Estimated Glomerular Filtration Rate 85 mL/min/1.73m >=60 mL/min/1.73m [facility] Glucose [Mass/Vol] 86 mg/dL 74 - 99 mg/dL [facility] Potassium [Moles/Vol] 4.3 mmol/L 3.7 - 5.1 mmol/L [facility] Protein [Mass/Vol] 6.4 g/dL 6.3 - 8.0 g/dL [facility] Sodium [Moles/Vol] 148 mmol/L High 136 - 144 mmol/L [facility] Urea nitrogen [Mass/Vol] 24 mg/dL 9 - 24 mg/d L [facility] Ferritin SerPl-mCncon 2021 Ferritin [Mass/Vol] 121.0 ng/mL Normal 30.3-565.7 [facility] Comment on above: Order Comment: Speci men Type: BLOOD SPECIMEN Ordering Facility: [facility] Address: [address] [place] [address] Performed By: #### 5 0190-8, 2132-06, 2276-01 #### [facility] CLIA [id number] [address] [place] [address] STATES OF [facility] Iron and Iron binding capaci ty panelon 08-30-2022 Iron [Mass/Vol] 100 ug/dL Normal 41-186 [facility] Comment on above: Order Comment: Speci men Type: BLOOD SPECIMEN Ordering Facility: [facility] Address: [address] [place] [address] Performed By: #### 5 0190-8, 2132-06, 2276-01 #### [facility] CLIA [id number] [address] [place] [address] [place] Iron binding capacity [Mass/Vol] 287 ug/dL Normal 232-386 [facility] Comment on above: Order Comment: Speci men Type: BLOOD SPECIMEN Ordering Facility: [facility] Address: [address] [place] [address] Performed By: #### 5 0190-8, 2132-06, 2276-01 #### [facility] CLIA [id number] [address] [place] [address] [place] Iron/TIBC [Molar ratio] 34.8 % Normal 15.0-57.0 [facility] Comment on above: Order Comment: Speci men Type: BLOOD SPECIMEN Ordering Facility: [facility] Address: [address] [place] [address] Performed By: #### 5 0190-8, 2132-06, 2276-01 #### [facility] CLIA [id number] [address] [place] [address] [place] LD LACTATE DEHYDROon 022 LDH [Catalytic activity/Vol] 180 U/L 135 - 225 U/L [facility] LDH SerPl-cCncon 08-30-2022 LDH [Catalytic activity/Vol] 180 U/L Normal 135-225 [facility] Comment on above: Order Comment: Speci men Type: BLOOD SPECIMEN Ordering Facility: [facility] Address: [address] [place], [place] [address] Performed By: #### 2 532-0, 65395-1 #### [facility] CLIA [id number] [address] [place] [address] Vit B12 SerPl-mCncon 022 Cobalamin (Vitamin B12) [Mass/Vol] 468 pg/mL Normal 232-1245 [facility] Comment on above: Order Comment: Speci men Type: BLOOD SPECIMEN Ordering Facility: [facility] Address: [address] [place], [place] [address] Performed By: #### 5 0190-8, 2132-9, 2276-4 #### [facility] CLIA [id number] [address] [place] [address] [place] CULTURE BLOODon 05-08-2022 Microscopic examination of blood, [...] <=0.25 S F Clindamycin <=0.25 S F Quinupristin/Dalfop ristin <=0.25 S F Linezolid 2 S F Vancomycin <=0.5 S F Tetracycline <=1 S F Rifampicin <=0.5 S F Trimethoprim/Sulfam ethoxazole <=10 S F Oxacillin <=0.25 S F Normal [facility] Comment on above: Performed By: #### P OCGLUC #### [facility] [address] [place] [address] Dr. Kelly Mukherjee BLOOD CULTURE ID PANELon A. baumannii Not detected Normal NOT DETECTED [facility] Comment on above: Performed By: #### B CID2 #### [facility] [address] [place] [address] Dr. Kelly Mukherjee Bacteriodes fragilis Not detected Normal NOT DETECTED [facility] Comment on above: Performed By: #### B CID2 #### [facility] [address] [place] [address] Dr. Kelly Mukherjee BCID CONTROLS PASSED Normal [facility] Comment on above: Performed By: #### B CID2 #### [facility] [address] [place] [address] Dr. Kelly Mukherjee BCIDBTHD BLOOD CULTURE BOTTLE INFORMATION Normal [facility] Comment on above: Performed By: #### B CID2 #### [facility] [address] [place] [address] Dr. Kelly Mukherjee BCIDHD1 ANTIMICROBIAL RESISTANCE GENES Normal [facility] Comment on above: Performed By: #### B CID2 #### [facility] [address] [place] [address] Dr. Kelly Mukherjee BCIDHD2 SEE BELOW Normal [facility] Comment on above: Result Comment: Note : Antimicrobial resitance can occur via multiple mechanisms. A Not Detected result for the [employer] antomicrobial resistance gene assays does not indicate antimicrobial susceptibility. Subculturing is required for species identification and susceptibility testing of isolates. Performed By: #### B CID2 #### [facility] [address] [place] [address] Dr. Kelly Mukherjee BCIDHD3 Positive [facility] Comment on above: Performed By: #### B CID2 #### [facility] [address] [place] [address] Dr. Kelly Mukherjee BCIDHD4 Negative Normal [facility] Comment on above: Performed By: #### B CID2 #### [facility] [address] [place] [address] Dr. Kelly Mukherjee BCIDHD5 YEAST Normal [facility] Comment on above: Performed By: #### B CID2 #### [facility] [address] [place] [address] Dr. Kelly Mukherjee Bottle Set: Set 2 [facility] Comment on above: Performed By: #### B CID2 #### [facility] [address] [place] [address] Dr. Kelly Mukherjee Bottle: Aerobic Normal [facility] Comment on above: Performed By: #### B CID2 #### [facility] Laboratory [address] [place] [address] Dr. Kelly Mukherjee C. neoformans/gattii Not detected Normal NOT DETECTED [facility] Comment on above: Performed By: #### B CID2 #### [facility] Laboratory [address] [place] [address] Dr. Kelly Mukherjee Morenita albicans Not detected Normal NOT DETECTED [facility] Comment on above: Performed By: #### B CID2 #### [facility] Laboratory [address] [address] [address] Kelly Mukherjee Morenita auris Not detected Normal NOT DETECTED [facility] Comment on above: Performed By: #### B CID2 #### [facility] [address] [address] [address] Kelly Mukherjee Morenita glabrata Not detected Normal NOT DETECTED The [facility] Comment on above: Performed By: #### B CID2 #### [facility] Laboratory [address] [place] [address] Dr. Kelly Mukherjee Morenita Krusei Not detected Normal NOT DETECTED The [facility] Comment on above: Performed By: #### B CID2 #### [facility] [address] [place] [address] Dr. Kelly Mukherjee Morenita Parapsilosis Not detected Normal NOT DETECTED The [facility] Comment on above: Performed By: #### B CID2 #### [facility] [address] [place] [address] Dr. Kelly Mukherjee Morenita Tropicalis Not detected Normal NOT DETECTED [facility] Comment on above: Performed By: #### B CID2 #### [facility] [address] [place] [address] Dr. Kelly Mukherjee CTX-M Resistant Gene Not Applicable Normal NOT DETECTE D [facility] Comment on above: Performed By: #### B CID2 #### [facility] [address] [place] [address] Dr. Kelly Mukherjee E. Cloacae complex Not detected Normal NOT DETECTED [facility] Comment on above: Performed By: #### B CID2 #### [facility] [address] [place] [address] Dr. Kelly Mukherjee E. faecalis Not detected Normal NOT DETECTED The [facility] Comment on above: Performed By: #### B CID2 #### [facility] [address] [place] [address] Dr. Kelly Mukherjee E. faecium Not detected Normal NOT DETECTED The [facility] Comment on above: Performed By: #### B CID2 #### [facility] [address] [place] [address] Dr. Kelly Mukherjee Enterobacteriaceae Not detected Normal NOT DETECTED [facility] Comment on above: Performed By: #### B CID2 #### [facility] [address] [place] [address] Dr. Kelly Mukherjee Escherichia coli Not detected Normal NOT DETECTED The [facility] Comment on above: Performed By: #### B CID2 #### [facility] [address] [place] [address] Dr. Kelly Mukherjee H. influenzae Not detected Normal NOT DETECTED [facility] Comment on above: Performed By: #### B CID2 #### [facility] [address] [place] [address] Dr. Kelly Mukherjee IMP Resistant Gene Not Applicable Normal NOT DETECTED [facility] Comment on above: Performed By: #### B CID2 #### [facility] [address] [place] [address] Dr. Kelly Mukherjee K. oxytoca Not detected Normal NOT DETECTED [facility] Comment on above: Performed By: #### B CID2 #### [facility] [address] [place] [address] Dr. Kelly Mukherjee K. pneumoniae Not detected Normal NOT DETECTED [facility] Comment on above: Performed By: #### B CID2 #### [facility] [address] [place] [address] Dr. Kelly Mukherjee Klebsiella aerogenes Not detected Normal NOT DETECTED [facility] Comment on above: Performed By: #### B CID2 #### [facility] [address] [place] [address] Dr. Kelly Mukherjee KPC Resistant Gene Not Applicable Normal NOT DETECTED The [facility] Comment on above: Performed By: #### B CID2 #### [facility] [address] [place] [address] Dr. Kelly Mukherjee List. monocytogenes Not detected Normal NOT DETECTED [facility] Comment on above: Performed By: #### B CID2 #### [facility] [address] [place] [address] Dr. Kelly Mukherjee Mcr-1 Resistant Gene Not Applicable Normal NOT DETECTE D [facility] Comment on above: Performed By: #### B CID2 #### [facility] [address] [place] [address] Dr. Kelly Mukherjee mecA/C Not Applicable Normal NOT DETECTED The [facility] Comment on above: Performed By: #### B CID2 #### [facility] [address] [place] [address] Dr. Kelly Mukherjee mecA/C MREJ Not Applicable Normal NOT DETECTED [facility] Comment on above: Performed By: #### B CID2 #### [facility] [address] [place] [address] Dr. Kelly uMkherjee N. meningitidis Not detected Normal NOT DETECTED The [facility] Comment on above: Performed By: #### B CID2 #### [facility] [address] [place] [address] Dr. Kelly Mukherjee NDM Resistant Gene Not Applicable Normal NOT DETECTED The [facility] Comment on above: Performed By: #### B CID2 #### [facility] [address] [place] [address] Dr. Kelly Mukherjee Oxa-48-like Not Applicable Normal NOT DETECTED [facility] Comment on above: Performed By: #### B CID2 #### [facility] [address] [place] [address] Dr. Kelly Mukherjee Proteus Not detected Normal NOT DETECTED [facility] Comment on above: Performed By: #### B CID2 #### [facility] [address] [place] [address] Dr. Kelly Mukherjee Pseud. aeruginosa Not detected Normal NOT DETECTED The [facility] Comment on above: Performed By: #### B CID2 #### [facility] [address] [place] [address] Dr. Kelly Mukherjee S. maltophilia Not detected Normal NOT DETECTED [facility] Comment on above: Performed By: #### B CID2 #### [facility] [address] [place] [address] Dr. Kelly Mukherjee Salmonella Not detected Normal NOT DETECTED [facility] Comment on above: Performed By: #### B CID2 #### [facility] [address] [place] [address] Dr. Kelly Mukherjee Seratia marcescens Not detected Normal NOT DETECTED [facility] Comment on above: Performed By: #### B CID2 #### [facility] [address] [place] [address] Dr. Kelly Mukherjee Site: Lt Hand Normal The [facility] Comment on above: Performed By: #### B CID2 #### [facility] [address] [address] [address] Kelly Mukherjee Staph. aureus Not detected Normal NOT DETECTED [facility] Comment on above: Performed By: #### B CID2 #### [facility] [address] [place] [address] Dr. Kelly Mukherjee Staph. epidermidis Not detected Normal NOT DETECTED [facility] Comment on above: Performed By: #### B CID2 #### [facility] [address] [place] [address] Dr. Kelly Mukherjee Staph. lugdunensis Not detected Normal NOT DETECTED [facility] Comment on above: Performed By: #### B CID2 #### [facility] [address] [place] [address] Dr. Kelly Mukherjee Staphylococcus Detected Abnormal NOT DETECTED [facility] Comment on above: Performed By: #### B CID2 #### [facility] [address] [place] [address] Dr. Kelly Mukherjee Strep. agalactiae Not detected Normal NOT DETECTED The [facility] Comment on above: Performed By: #### B CID2 #### [facility] [address] [place] [address] Dr. Kelly Mukherjee Strep. pneumoniae Not detected Normal NOT DETECTED The [facility] Comment on above: Performed By: #### B CID2 #### [facility] [address] [place] [address] Dr. Kelly Mukherjee Strep. pyogenes Not detected Normal NOT DETECTED The [facility] Comment on above: Performed By: #### B CID2 #### [facility] [address] [place] [address] Dr. Kelly Mukherjee Streptococcus Not detected Normal NOT DETECTED [facility] Comment on above: Performed By: #### B CID2 #### [facility] [address] [place] [address] Dr. Kelly Schneider/Suraj Resist. Gene Not Applicable Normal NOT DETECTED [facility] Comment on above: Performed By: #### B CID2 #### [facility] [address] [place] [address] Dr. Kelly Mukherjee VIM Resistant Gene Not Applicable Normal NOT DETECTED The [facility] Comment on above: Performed By: #### B CID2 #### [facility] [address] [place] [address] Dr. Kelly Mukherjee CBC AUTO DIFFon 05-03-2022 BASO # 0.0 103/ul Normal 0.0-0.1 [facility] Comment on above: Performed By: #### C BC #### [facility] [address] [place] [address] Dr. Kelly Mukherjee Basophils/100 WBC (Bld) 0.0 % Critically low 0.2-2.0 [facility] Comment on above: Performed By: #### C BC #### [facility] [address] [place] [address] Dr. Kelly Mukherjee EO # 0.0 103/ul Normal 0.0-0.7 [facility] Comment on above: Performed By: #### C BC #### [facility] [address] [place] [address] Dr. Kelly Mukherjee Eosinophils/100 WBC (Bld) 0.0 % Critically low 0.9-7. 0 [facility] Comment on above: Performed By: #### C BC #### [facility] [address] [place] [address] Dr. Kelly Mukherjee Erythrocyte distribution width (RBC) [Ratio] 15.5 % Critically high 11.0-15.0 [facility] Comment on above: Performed By: #### C BC #### [facility] [address] [place] [address] Dr. Kelly Mukherjee Hematocrit (Bld) [Volume fraction] 25.3 % Critically low 42.0-54.0 [facility] Comment on above: Performed By: #### C BC #### [facility] [address] [address] [address] Kelly Mukherjee Hemoglobin (Bld) [Mass/Vol] 8.8 g/dL Critically low 14.0-18.0 [facility] Comment on above: Performed By: #### C BC #### [facility] [address] [address] [address] Kelly Mukherjee IG # 0.00 10e3/ul Normal 0.00-0.03 [facility] Comment on above: Performed By: #### C BC #### [facility] [address] [place] [address] Dr. Kelly Mukherjee IG % 0.0 % Normal 0.0-0.5 [facility] Comment on above: Performed By: #### C BC #### [facility] [address] [place] [address] Dr. Kelly Mukherjee LYMPH # 0.2 103/ul Critically low 1.2-3.8 [facility] Comment on above: Performed By: #### C BC #### [facility] [address] [place] [address] Dr. Kelly Mukherjee Lymphocytes/100 WBC (Bld) 11.5 % Critically low 20.5-6 0.0 [facility] Comment on above: Performed By: #### C BC #### [facility] [address] [place] [address] Dr. Kelly Mukherjee MANUAL DIFF REQ NO Normal [facility] Comment on above: Performed By: #### C BC #### [facility] [address] [place] [address] Dr. Kelly Mukherjee MCH (RBC) [Entitic mass] 34.1 pg Critically high 25.9-3 4.0 [facility] Comment on above: Performed By: #### C BC #### [facility] [address] [place] [address] Dr. Kelly Mukherjee MCHC (RBC) [Mass/Vol] 34.8 g/dL Normal 29.9-35.2 [facility] Comment on above: Performed By: #### C BC #### [facility] [address] [address] [address] Kelly Mukherjee MCV (RBC) [Entitic vol] 98.1 fL Critically high 80.0-94 .0 [facility] Comment on above: Performed By: #### C BC #### [facility] [address] [address] [address] Kelly Mukherjee MONO # 0.2 103/ul Critically low 0.3-0.8 [facility] Comment on above: Performed By: #### C BC #### [facility] [address] [address] [address] Kelly Mukherjee Monocytes/100 WBC (Bld) 14.5 % Critically high 1.7-12. 0 [facility] Comment on above: Performed By: #### C BC #### [facility] [address] [address] [address] Kelly Mukherjee NEUT # 1.2 103/ul Critically low 1.4-6.5 [facility] Comment on above: Performed By: #### C BC #### [facility] [address] [address] [address] Kelly Mukherjee Neutrophils/100 WBC (Bld) 74.0 % Normal 43.0-75.0 [facility] Comment on above: Performed By: #### C BC #### [facility] [address] [address] [address] Kelly Mukherjee Platelet mean volume (Bld) [Entitic vol] 10.3 fL Normal 9.5-13.5 [facility] Comment on above: Performed By: #### C BC #### [facility] [address] [address] [address] Kelly Mukherjee PLT 59 103/ul Critically low 150-450 [facility] Comment on above: Performed By: #### C BC #### [facility] [address] [address] [address] Kelly Mukherjee RBC 2.58 106/ul Critically low 4.70-6.10 [facility] Comment on above: Performed By: #### C BC #### [facility] [address] [place] [address] Dr. Kelly Mukherjee WBC 1.7 103/ul Critically low 4.0-11.0 [facility] Comment on above: Performed By: #### C BC #### [facility] [address] [place] [address] Dr. Kelly Mukherjee CBC W MANUAL DIFFon 05-03-20 22 ATYPICAL LYMPH # Normal [facility] Comment on above: Performed By: #### C VDTBH #### [facility] [address] [place] [address] Dr. Kelly Mukherjee ATYPICAL LYMPH % Normal [facility] Comment on above: Performed By: #### C VDTBH #### [facility] [address] [place] [address] Dr. Kelly Mukherjee BAND # 0.0 103/ul Normal 0.0-0.3 [facility] Comment on above: Performed By: #### C VDTBH #### [facility] [address] [place] [address] Dr. Kelly Mukherjee BAND % 1 % Normal 0-5 [facility] Comment on above: Performed By: #### C VDTBH #### [facility] [address] [place] [address] Dr. Kelly Mukherjee BASOM # 0.00 103/ul Normal 0.00-0.10 [facility] Comment on above: Performed By: #### C VDTBH #### [facility] [address] [place] [address] Dr. Kelly Mukherjee BASOM % 0.0 % Critically low 0.2-2.0 [facility] Comment on above: Performed By: #### C VDTBH #### [facility] [address] [place] [address] Dr. Kelly Mukherjee BLAST # Normal [facility] Comment on above: Performed By: #### C VDTBH #### [facility] [address] [place] [address] Dr. Klely Mukherjee BLAST % Normal [facility] Comment on above: Performed By: #### C VDTBH #### [facility] [address] [address] [address] Kelly Mukherjee CORRECTED WBC Normal 4.0-11.0 [facility] Comment on above: Performed By: #### C VDTBH #### [facility] [address] [address] [address] Kelly Mukherjee EOS # 0.00 103/ul Normal 0.00-0.70 [facility] Comment on above: Performed By: #### C VDTBH #### [facility] [address] [address] [address] Kelly Mukherjee EOS% 0.0 % Critically low 0.9-7.0 [facility] Comment on above: Performed By: #### C VDTBH #### [facility] [address] [place] [address] Dr. Kelly Mukherjee HCT 26.7 % Critically low 42.0-54.0 [facility] Comment on above: Performed By: #### C VDTBH #### [facility] [address] [address] [address] Kelly Mukherjee HGB 9.3 g/dl Critically low 14.0-18.0 [facility] Comment on above: Performed By: #### C VDTBH #### [facility] [address] [address] [address] Kelly Mukherjee LYMPHM # 0.21 103/ul Critically low 1.20-3.80 [facility] Comment on above: Performed By: #### C VDTBH #### [facility] [address] [address] [address] Kelly Mukherjee LYMPHM% 13.0 % Critically low 20.5-60.0 [facility] Comment on above: Performed By: #### C VDTBH #### [facility] [address] [address] [address] Kelly Mukherjee MCH 33.9 pg Normal 25.9-34.0 [facility] Comment on above: Performed By: #### C VDTBH #### [facility] [address] [place] [address] Dr. Kelly Mukherjee MCHC 34.8 g/dl Normal 29.9-35.2 [facility] Comment on above: Performed By: #### C VDTBH #### [facility] [address] [place] [address] Dr. Kelly Mukherjee MCV 97.4 fL Critically high 80.0-94.0 [facility] Comment on above: Performed By: #### C VDTBH #### [facility] [address] [place] [address] Dr. Kelly Mukherjee METAMYELOCYTE # Normal [facility] Comment on above: Performed By: #### C VDTBH #### [facility] [address] [place] [address] Dr. Kelly Mukherjee METAMYELOCYTE % Normal [facility] Comment on above: Performed By: #### C VDTBH #### [facility] [address] [place] [address] Dr. Kelly Mukherjee MONOM# 0.16 103/ul Critically low 0.30-0.80 [facility] Comment on above: Performed By: #### C VDTBH #### [facility] [address] [place] [address] Dr. Kelly Mukherjee MONOM% 10.0 % Normal 1.7-12.0 [facility] Comment on above: Performed By: #### C VDTBH #### [facility] [address] [place] [address] Dr. Kelly Mukherjee MPV 9.9 fL Normal 9.5-13.5 [facility] Comment on above: Performed By: #### C VDTBH #### [facility] [address] [place] [address] Dr. Kelly Mukherjee MYELOCYTE # Normal [facility] Comment on above: Performed By: #### C VDTBH #### [facility] [address] [place] [address] Dr. Kelly Mukherjee MYELOCYTE % Normal [facility] Comment on above: Performed By: #### C VDTBH #### [facility] [address] [address] [address] Kelly Mukherjee NRBC Normal [facility] Comment on above: Performed By: #### C VDTBH #### [facility] [address] [place] [address] Dr. Kelly Mukherjee PLT 61 103/ul Critically low 150-450 [facility] Comment on above: Performed By: #### C VDTBH #### [facility] [address] [address] [address] Kelly Mukherjee RBC 2.74 106/ul Critically low 4.70-6.10 [facility] Comment on above: Performed By: #### C VDTBH #### [facility] [address] [place] [address] Dr. Kelly Mukherjee RDW 15.6 % Critically high 11.0-15.0 [facility] Comment on above: Performed By: #### C VDTBH #### [facility] [address] [place] [address] Dr. Kelly Mukherjee SEG # 1.22 103/ul Critically low 1.40-6.50 [facility] Comment on above: Performed By: #### C VDTBH #### [facility] [address] [place] [address] Dr. Kelly Mukherjee SEG % 76.0 % Critically high 43.0-75.0 [facility] Comment on above: Performed By: #### C VDTBH #### [facility] [address] [place] [address] Dr. Kelly Mukherjee WBC 1.6 103/ul Critically low 4.0-11.0 [facility] Comment on above: Performed By: #### C VDTBH #### [facility] [address] [place] [address] HEAD WO CONon [...] by: KIA JENNINGS Date: 2022-05-03 00:00 Normal [facility] CULTURE BLOODon 05-03-2022 Microscopic examination of blood, culture Culture Observations: NO GROWTH AT 5 DAYS. Normal [facility] Comment on above: Performed By: #### P OCGLUC #### [facility] [address] [place] [address] Dr. Kelly Mukherjee CULTURE URINEon 05-03-2022 CULTURE URINE Culture Observations: HEAVY GROWTH OF MIXED SKIN TERE. NO POTENTIAL PATHOGENS SEEN. Normal [facility] Comment on above: Performed By: #### P OCGLUC #### [facility] [address] [address] [address] Kelly Mukherjee Covid-19 PCR (CVDTB)on 04-08 SARS-CoV-2 (COVID-19) RNA ABIMBOLA+probe Ql (Unsp spec) Detected Critically abnormal NOT DETECTED [facility] Comment on above: Result Comment: This test is not yet approved or cleared by the [place] FDA. When there are no FDA-approved or cleared tests available, and other criteria are met, FDA can make tests available under an emergency access mechanism called an Emergency Use Authorization (EUA). The EUA for this test is supported by the [place] of Health and Human Service's declaration that [...] used). Performed By: #### C VDTBH #### [facility] [address] [place] [address] Dr. Kelly ALLEN URINE PROFILEon 2 Bilirubin Ql (U) Negative Normal NEGATIVE [facility] Comment on above: Performed By: #### CAITY CABRALRO #### [facility] [address] [place] [address] Dr. Kelly Mukherjee Clarity (U) CLEAR Normal CLEAR [facility] Comment on above: Performed By: #### RACHELL CABRALICRO #### [facility] [address] [place] [address] Dr. Kelly Mukherjee Color (U) YELLOW Normal YELLOW [facility] Comment on above: Performed By: #### CAITY CABRALRO #### [facility] [address] [place] [address] Dr. Kelly CARTER A micrscopic examination will be performed if indicated. Normal [facility] Comment on above: Performed By: #### RACHELL CABRALICRO #### [facility] [address] [place] [address] Dr. Kelly Mukherjee Glucose Ql (U) 100 mg/dl Abnormal NEGATIVE [facility] [facility] Comment on above: Performed By: #### CAITY CABRALRO #### [facility] [address] [place] [address] Dr. Kelly Mukherjee Hemoglobin Ql (U) TRACE-INTACT Abnormal NEGATIVE [facility] Comment on above: Performed By: #### RACHELL CABRALICRO #### [facility] [address] [place] [address] Dr. Kelly Mukherjee Ketones Ql (U) Negative Normal NEGATIVE [facility] Comment on above: Performed By: #### RACHELL CABRALICRO #### [facility] [address] [place] [address] Dr. Kelly Mukherjee LEUKOCYTES Negative Normal NEGATIVE [facility] Comment on above: Performed By: #### Javy VAZQUEZ UMICRO #### [facility] [address] [place] [address] Dr. Kelly Mukherjee Nitrite Ql (U) Positive Abnormal NEGATIVE [facility] Comment on above: Performed By: #### RACHELL CABRALICRO #### [facility] [address] [place] [address] Dr. Kelly Mukherjee pH (U) 5.5 [pH] Normal 5-9 [facility] Comment on above: Performed By: #### Javy VAZQUEZ UMICRO #### [facility] [address] [place] [address] Dr. Kelly Mukherjee Protein (U) [Mass/Vol] 100 mg/dL Abnormal NEGAT NADER/ TRACE [facility] Comment on above: Performed By: #### Javy VAZQUEZ UMICRO #### [facility] [address] [place] [address] Dr. Kelly Mukherjee SPEC GRAVITY 1.025 Normal 1.005-<=1.[address] [place] [address] Comment on above: Performed By: #### Javy VAZQUEZ UMICRO #### [facility] [address] [place] [address] Dr. Kelly Mukherjee UR MICRO IND INDICATED Normal [facility] Comment on above: Performed By: #### Javy VAZQUEZ UMICRO #### [facility] [address] [place] [address] Dr. Kelly Mukherjee Urobilinogen Qn (U) 0.2 {Jun'U}/dL Normal 0.2 - 1. 0 [facility] Comment on above: Performed By: #### Javy VAZQUEZ UMICRO #### [facility] [address] [place] [address] Dr. Kelly Mukherjee LACTATE/LACTIC ACIDon 2021 Lactate [Moles/Vol] 1.0 mmol/L Normal 0.4-1.9 [facility] Comment on above: Performed By: #### B MP #### [facility] [address] [place] [address] Dr. Kelly Mukherjee PROF 14(COMP METB)on 022 Albumin [Mass/Vol] 3.6 g/dL Normal 3.4-5.0 [facility] Comment on above: Performed By: #### B MP #### [facility] [address] [place] [address] Dr. Kelly Mukherjee Albumin/Globulin [Mass ratio] 1.3 {ratio} Normal [facility] Comment on above: Performed By: #### B MP #### [facility] [address] [place] [address] Dr. Kelly Mukherjee ALP [Catalytic activity/Vol] 95 U/L Normal 46-116 [facility] Comment on above: Performed By: #### B MP #### [facility] [address] [place] [address] Dr. Kelly Mukherjee ALT [Catalytic activity/Vol] 53 U/L Normal 16-63 [facility] Comment on above: Performed By: #### B MP #### [facility] [address] [place] [address] Dr. Kelly Mukherjee Anion gap [Moles/Vol] 8.7 mmol/L Normal [facility] Comment on above: Performed By: #### B MP #### [facility] [address] [place] [address] Dr. Kelly Mukherjee AST [Catalytic activity/Vol] 31 U/L Normal 15-37 [facility] Comment on above: Performed By: #### B MP #### [facility] [address] [place] [address] Dr. Kelly Mukherjee Bilirubin [Mass/Vol] 0.4 mg/dL Normal 0.2-1.0 [facility] Comment on above: Performed By: #### B MP #### [facility] [address] [place] [address] Dr. Kelly Mukherjee Calcium [Mass/Vol] 8.5 mg/dL Normal 8.5-10.1 [facility] Comment on above: Performed By: #### B MP #### [facility] [address] [place] [address] Dr. Kelly Mukherjee Chloride [Moles/Vol] 106 mmol/L Normal 98-107 [facility] Comment on above: Performed By: #### B MP #### [facility] [address] [place] [address] Dr. Kelly Mukherjee CO2 [Moles/Vol] 29.1 mmol/L Normal 21.0-32.0 [facility] Comment on above: Performed By: #### B MP #### [facility] [address] [address] [address] Kelly Mukherjee Creatinine [Mass/Vol] 1.07 mg/dL Normal 0.70-1.30 [facility] Comment on above: Performed By: #### B MP #### [facility] [address] [address] [address] Kelly Mukherjee EGFR-AF BURUNDIAN >60 Normal >=60 [facility] Comment on above: Performed By: #### B MP #### [facility] [address] [address] [address] Kelly Mukherjee EGFR-NON AF BURUNDIAN >60 Normal >=60 [facility] Comment on above: Performed By: #### B MP #### [facility] [address] [place] [address] Dr. Kelly Mukherjee Globulin (S) [Mass/Vol] 2.8 g/dL Normal [facility] Comment on above: Performed By: #### B MP #### [facility] [address] [address] [address] Kelly Mukherjee Glucose [Mass/Vol] 208 mg/dL Critically high 74-106 [facility] Comment on above: Performed By: #### B MP #### [facility] [address] [place] [address] Dr. Kelly Mukherjee Potassium [Moles/Vol] 3.8 mmol/L Normal 3.5-5.1 [facility] Comment on above: Performed By: #### B MP #### [facility] [address] [place] [address] Dr. Kelly Mukherjee Protein [Mass/Vol] 6.4 g/dL Normal 6.4-8.2 [facility] Comment on above: Performed By: #### B MP #### [facility] [address] [address] [address] Kelly Mukherjee Sodium [Moles/Vol] 140 mmol/L Normal 136-145 [facility] Comment on above: Performed By: #### B MP #### [facility] [address] [address] [address] Kelly Mukherjee Urea nitrogen [Mass/Vol] 23.0 mg/dL Critically high 7.0-18 .0 [facility] Comment on above: Performed By: #### B MP #### [facility] [address] [address] [address] Kelly Mukherjee Urea nitrogen/Creatinine [Mass ratio] 21.5 mg/mg Normal [facility] Comment on above: Performed By: #### B MP #### [facility] [address] [address] [address] Kelly Mukherjee PROF CHEM 8 (BAS METB)on Anion gap [Moles/Vol] 10.1 mmol/L Normal [facility] Comment on above: Performed By: #### B MP #### [facility] [address] [place] [address] Dr. Kelly Mukherjee Calcium [Mass/Vol] 8.2 mg/dL Critically low 8.5-10.1 [facility] Comment on above: Performed By: #### B MP #### [facility] [address] [place] [address] Dr. Kelly Mukherjee Chloride [Moles/Vol] 107 mmol/L Normal 98-107 [facility] Comment on above: Performed By: #### B MP #### [facility] [address] [place] [address] Dr. Kelly Mukherjee CO2 [Moles/Vol] 27.6 mmol/L Normal 21.0-32.0 [facility] Comment on above: Performed By: #### B MP #### [facility] [address] [address] [address] Kelly Mukherjee Creatinine [Mass/Vol] 0.93 mg/dL Normal 0.70-1.30 [facility] Comment on above: Performed By: #### B MP #### [facility] [address] [place] [address] Dr. Kelly Mukherjee EGFR-AF [place]URUNDIAN >60 Normal >=60 [facility] Comment on above: Performed By: #### B MP #### [facility] [address] [place] [address] Dr. Kelly Mukherjee EGFR-NON AF [place]URUNDIAN >60 Normal >=60 [facility] Comment on above: Performed By: #### B MP #### [facility] [address] [address] [address] Kelly Mukherjee Glucose [Mass/Vol] 153 mg/dL Critically high 74-106 [facility] Comment on above: Performed By: #### B MP #### [facility] [address] [place] [address] Dr. Kelly Mukherjee Potassium [Moles/Vol] 3.7 mmol/L Normal 3.5-5.1 [facility] Comment on above: Performed By: #### B MP #### [facility] [address] [place] [address] Dr. Kelly Mukherjee Sodium [Moles/Vol] 141 mmol/L Normal 136-145 [facility] Comment on above: Performed By: #### B MP #### [facility] [address] [place] [address] Dr. Kelly Mukherjee Urea nitrogen [Mass/Vol] 17.0 mg/dL Normal 7.0-18.0 [facility] Comment on above: Performed By: #### B MP #### [facility] [address] [place] [address] Dr. Kelly Mukherjee Urea nitrogen/Creatinine [Mass ratio] 18.3 mg/mg Normal [facility] Comment on above: Performed By: #### B MP #### [facility] [address] [place] [address] Dr. Kelly Mukherjee URINE MICROSCOPIC ONLYon BACTERIA MODERATE Abnormal NONE SEEN [facility] Comment on above: Performed By: #### MARIKA CABRAL #### [facility] [address] [place] [address] Dr. Kelly Mukherjee Bacteria identified Cx Nom (U) INDICATED Normal [facility] Comment on above: Performed By: #### MARIKA CABRAL #### [facility] [address] [place] [address] Dr. Kelly Mukherjee CAST NONE SEEN Normal NONE SEEN [facility] Comment on above: Performed By: #### E RUR, UMICRO #### [facility] [address] [place] [address] Dr. Kelly Mukherjee Crystals LM Nom (Urine sed) NONE SEEN Normal NONE SEEN [facility] Comment on above: Performed By: #### E RUR, UMICRO #### [facility] [address] [place] [address] Dr. Kelly Mukherjee Epithelial cells LM Ql (Urine sed) NONE SEEN Normal NONE SEEN /RARE [facility] Comment on above: Performed By: #### E RUR, UMICRO #### [facility] [address] [place] [address] Dr. Kelly Mukherjee MUCOUS NONE SEEN Normal NONE SEEN [facility] Comment on above: Performed By: #### E RUR, UMICRO #### [facility] [address] [place] [address] Dr. Kelly Mukherjee RBC NONE SEEN Abnormal 0-2 [facility] Comment on above: Performed By: #### E RUR, UMICRO #### [facility] [address] [place] [address] Dr. Kelly Mukherjee WBC 2-5 Abnormal NONE SEEN [facility] Comment on above: Performed By: #### E RUR, UMICRO #### [facility] [address] [place] [address] Dr. Kelly Mukherjee XR CHEST 1 Von [...] KIA JENNINGS Date: 2022-05-03 00:05 Normal [facility] MRI BRAIN WO CONon 2 MRI [...] by: SHAKA BLANCO Date: 2022-04-19 20:11 Normal [facility] ECHOCARDIO M/2D COMPLETEon 0 03-27-2022 ECHOCARDIO M/2D COMPLETE Patient: BRIAN GOULD Exam Date: 03/27/2022 : 1945 Gender:M Ordering : DR JUAN A COX D.O. Admission #: [id number] Family : Order #: [id number] CLICK HERE TO VIEW EXAM ECHOCARDIOGRAM REPORT [...] Area(A4C): 20.80 cm2 Left Atrium Systolic Volume(A2C): 06259 mm3 Left Atrium Systolic Volume(A4C): 09318 mm3 Mitral Valve MV E to A Ratio: 1.30 Deceleration [place]: 3680 mm/s2 Mitral Valve A-Wave Peak Velocity: 65.60 cm/s Mitral Valve E-Wave Peak Velocity: 84.40 cm/s Right Ventricle RV Internal Diastolic Dimension: 3.10 cm Aorta AO Root Diam: 3.30 cm Aortic Valve AoV Area (Peak Alban): 2.40 cm2 Deceleration [place]: 541 mm/s2 Pressure Half-Time: 1.59 s Peak [...] Walden M.D. on 03/29/2022 at 19:07 Normal [facility] NM STRESS/REST MULTIon 03-09 NM STRESS/REST MULTI Patient: BRIAN GOULD Exam Date: 03/09/2022 : 1945 Gender:M Ordering : DR JUAN A COX D.O. Admission #: [id number] Family : Order #: [id number] CLICK HERE TO VIEW EXAM RADIOLOGY REPORT [...] nuclear medicine myocardial perfusion scan. Dictated by: Sonam Olson M.D. on 03/10/2022 at 09:34 Approved by: Sonam Olson M.D. on 03/10/2022 at 09:38 Normal [facility] BNPon 02-15-2022 Natriuretic peptide B (Bld) [Mass/Vol] 400.0 pg/mL Normal <=1,800.0 [facility] Comment on above: Performed By: #### B MP #### [facility] [address] [place] [address] Dr. Kelly Mukherjee CARDIAC BARRON ADMITon 022 CK [Catalytic activity/Vol] 22 U/L Critically low 39-308 [facility] Comment on above: Performed By: #### B MP #### [facility] [address] [place] [address] Dr. Kelly Mukherjee CK.MB [Mass/Vol] ng/mL Normal <=3.60 [facility] Comment on above: Performed By: #### B MP #### [facility] [address] [place] [address] Dr. Kelly Mukherjee HSTROP 6.8 pg/mL Normal 4.0-76.1 [facility] Comment on above: Result Comment: CUT- OFF POINTS HAVE BEEN ESTABLISHED BASED ON THE FOURTH UNIVERSAL DEFINITIONS OF MYOCARDIAL INFARCTION. THE UPPER REFERENCE LIMIT (URL) OF TROPONIN, DEFINED THE 99TH PERCENTILE OF cTnI DISTRIBUTION IN A REFERENCE POPULATION, HAS BEEN CONFIRMED THE DECISION THRESHOLD FOR MO DIAGNOSIS. Performed By: #### B MP #### [facility] [address] [place] [address] Dr. Kelly Mukherjee DEBBIE 39 ng/mL Normal 16-96 [facility] Comment on above: Performed By: #### B MP #### [facility] [address] [place] [address] Dr. Kelly Mukherjee CBC AUTO DIFFon 02-15-2022 BASO # 0.0 103/ul Normal 0.0-0.1 [facility] Comment on above: Performed By: #### B MP #### [facility] [address] [place] [address] Dr. Kelly Mukherjee Basophils/100 WBC (Bld) 0.3 % Normal 0.2-2.0 [facility] Comment on above: Performed By: #### B MP #### [facility] [address] [place] [address] Dr. Kelly Mukherjee EO # 0.1 103/ul Normal 0.0-0.7 [facility] Comment on above: Performed By: #### B MP #### [facility] [address] [place] [address] Dr. Kelly Mukherjee Eosinophils/100 WBC (Bld) 2.0 % Normal 0.9-7.0 [facility] Comment on above: Performed By: #### B MP #### [facility] [address] [place] [address] Dr. Kelly Mukherjee Erythrocyte distribution width (RBC) [Ratio] 15.4 % Critically high 11.0-15.0 [facility] Comment on above: Performed By: #### B MP #### [facility] [address] [place] [address] Dr. Kelly Mukherjee Hematocrit (Bld) [Volume fraction] 31.9 % Critically low 42.0-54.0 [facility] Comment on above: Performed By: #### B MP #### [facility] [address] [place] [address] Dr. Kelly Mukherjee Hemoglobin (Bld) [Mass/Vol] 10.7 g/dL Critically low 14.0-18.0 [facility] Comment on above: Performed By: #### B MP #### [facility] [address] [place] [address] Dr. Kelly Mukherjee IG # 0.01 10e3/ul Normal 0.00-0.03 [facility] Comment on above: Performed By: #### B MP #### [facility] [address] [place] [address] Dr. Kelly Mukherjee IG % 0.3 % Normal 0.0-0.5 [facility] Comment on above: Performed By: #### B MP #### [facility] [address] [place] [address] Dr. Kelly Mukherjee LYMPH # 0.6 103/ul Critically low 1.2-3.8 [facility] Comment on above: Performed By: #### B MP #### [facility] [address] [place] [address] Dr. Kelly Mukherjee Lymphocytes/100 WBC (Bld) 15.9 % Critically low 20.5-6 0.0 [facility] Comment on above: Performed By: #### B MP #### [facility] [address] [address] [address] Kelly Mukherjee MANUAL DIFF REQ NO Normal [facility] Comment on above: Performed By: #### B MP #### [facility] [address] [address] [address] Kelly Mukherjee MCH (RBC) [Entitic mass] 33.8 pg Normal 25.9-34.0 [facility] Comment on above: Performed By: #### B MP #### [facility] [address] [place] [address] Dr. Kelly Mukherjee MCHC (RBC) [Mass/Vol] 33.5 g/dL Normal 29.9-35.2 [facility] Comment on above: Performed By: #### B MP #### [facility] [address] [place] [address] Dr. Kelly Mukherjee MCV (RBC) [Entitic vol] 100.6 fL Critically high 80.0-94 .0 [facility] Comment on above: Performed By: #### B MP #### [facility] [address] [place] [address] Dr. Kelly Mukherjee MONO # 0.2 103/ul Critically low 0.3-0.8 [facility] Comment on above: Performed By: #### B MP #### [facility] [address] [place] [address] Dr. Kelly Mukherjee Monocytes/100 WBC (Bld) 4.9 % Normal 1.7-12.0 [facility] Comment on above: Performed By: #### B MP #### [facility] [address] [place] [address] Dr. Kelly Mukherjee NEUT # 2.7 103/ul Normal 1.4-6.5 [facility] Comment on above: Performed By: #### B MP #### [facility] [address] [place] [address] Dr. Kelly Mukherjee Neutrophils/100 WBC (Bld) 76.6 % Critically high 43.0- 75.0 [facility] Comment on above: Performed By: #### B MP #### [facility] [address] [address] [address] Kelly Mukherjee Platelet mean volume (Bld) [Entitic vol] 10.4 fL Normal 9.5-13.5 [facility] Comment on above: Performed By: #### B MP #### [facility] [address] [address] [address] Kelly Mukherjee PLT 72 103/ul Critically low 150-450 [facility] Comment on above: Performed By: #### B MP #### [facility] [address] [address] [address] Kelly Mukherjee RBC 3.17 106/ul Critically low 4.70-6.10 [facility] Comment on above: Performed By: #### B MP #### [facility] [address] [address] [address] Kelly Mukherjee WBC 3.5 103/ul Critically low 4.0-11.0 [facility] Comment on above: Performed By: #### B MP #### [facility] [address] [address] HEAD WO CONon [...] CELINE COLVIN Date: 2022-02-15 15:45 Normal [facility] PROF 14(COMP METB)on 022 Albumin [Mass/Vol] 3.7 g/dL Normal 3.4-5.0 [facility] Comment on above: Performed By: #### B MP #### [facility] [address] [place] [address] Dr. Kelly Mukherjee Albumin/Globulin [Mass ratio] 1.3 {ratio} Normal [facility] Comment on above: Performed By: #### B MP #### [facility] [address] [place] [address] Dr. Kelly Mukherjee ALP [Catalytic activity/Vol] 84 U/L Normal 46-116 [facility] Comment on above: Performed By: #### B MP #### [facility] [address] [place] [address] Dr. Kelly Mukherjee ALT [Catalytic activity/Vol] 29 U/L Normal 16-63 [facility] Comment on above: Performed By: #### B MP #### [facility] [address] [place] [address] Dr. Kelly Mukherjee Anion gap [Moles/Vol] 14.3 mmol/L Normal [facility] Comment on above: Performed By: #### B MP #### [facility] [address] [place] [address] Dr. Kelly Mukherjee AST [Catalytic activity/Vol] 15 U/L Normal 15-37 [facility] Comment on above: Performed By: #### B MP #### [facility] [address] [place] [address] Dr. Kelly Mukherjee Bilirubin [Mass/Vol] 0.5 mg/dL Normal 0.2-1.0 [facility] Comment on above: Performed By: #### B MP #### [facility] [address] [place] [address] Dr. Kelly Mukherjee Calcium [Mass/Vol] 9.0 mg/dL Normal 8.5-10.1 [facility] Comment on above: Performed By: #### B MP #### [facility] [address] [place] [address] Dr. Kelly Mukherjee Chloride [Moles/Vol] 105 mmol/L Normal 98-107 [facility] Comment on above: Performed By: #### B MP #### [facility] [address] [address] [address] Kelly Mukherjee CO2 [Moles/Vol] 27.0 mmol/L Normal 21.0-32.0 [facility] Comment on above: Performed By: #### B MP #### [facility] [address] [address] [address] Kelly Mukherjee Creatinine [Mass/Vol] 0.90 mg/dL Normal 0.70-1.30 [facility] Comment on above: Performed By: #### B MP #### [facility] [address] [address] [address] Kelly Mukherjee EGFR-AF BURUNDIAN >60 Normal >=60 [facility] Comment on above: Performed By: #### B MP #### [facility] [address] [address] [address] Kelly Mukherjee EGFR-NON AF [place]UR[place]DIAN >60 Normal >=60 [facility] Comment on above: Performed By: #### B MP #### [facility] [address] [address] [address] Kelly Mukherjee Globulin (S) [Mass/Vol] 2.9 g/dL Normal [facility] Comment on above: Performed By: #### B MP #### [facility] [address] [address] [address] Kelly Mukherjee Glucose [Mass/Vol] 234 mg/dL Critically high 74-106 [facility] Comment on above: Performed By: #### B MP #### [facility] [address] [address] [address] Kelly Mukherjee Potassium [Moles/Vol] 4.3 mmol/L Normal 3.5-5.1 [facility] Comment on above: Performed By: #### B MP #### [facility] [address] [address] [address] Kelly Mukherjee Protein [Mass/Vol] 6.6 g/dL Normal 6.4-8.2 [facility] Comment on above: Performed By: #### B MP #### [facility] [address] [place] [address] Dr. Kelly Mukherjee Sodium [Moles/Vol] 142 mmol/L Normal 136-145 [facility] Comment on above: Performed By: #### B MP #### [facility] [address] [place] [address] Dr. Kelly Mukherjee Urea nitrogen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
[2024-06-27 17:06] LABS: Hematocrit 28.8 % (42.0-54.0); Mean Corpuscular HGB Conc 34.7 g/dL (29.9-35.2); Mean Corpuscular Hemoglobin 34.4 pg (25.9-34.0); Mean Platelet Volume 10.3 fL (9.5-13.5); Platelet Count 86 10^3/uL (150-450); Red Blood Count 2.91 10^6/uL (4.70-6.10); Red Cell Distribution Width 15.2 % (11.0-15.0); White Blood Count 3.1 10^3/uL (4.0-11.0)
[2024-06-27 17:15] LABS: Estimated Average Glucose 85 mg/dL; Glycohemoglobin A1C 4.6 % (4.5-6.2)
[2024-06-27 17:18] LABS: Alanine Aminotransferase 48 U/L (16-63); Albumin Globulin Ratio 1.3; Albumin Level 3.7 g/dL (3.4-5.0); Alkaline Phosphatase 92 U/L (46-116); Aspartate Amino Transferase 24 U/L (15-37); BUN Creatinine Ratio 25.5; Bilirubin Total 0.7 mg/dL (0.2-1.0); Calcium 8.8 mg/dL (8.5-10.1); Carbon Dioxide 33.1 mmol/L (21.0-32.0); Chloride 103 mmol/L (98-107); Chol HDL Ratio 1.8; Cholesterol 133 mg/dL (<=200); Estimated GFR (African America >60 (>=60); Estimated GFR (Non-African Ame >60 (>=60); Globulin 2.8 g/dL; Glucose 175 mg/dL (74-106); HDL Cholesterol 72 mg/dL (40-60); Potassium 4.1 mmol/L (3.5-5.1); Sodium 140 mmol/L (136-145); Total Protein 6.5 g/dL (6.4-8.2); Triglycerides 90 mg/dL (<=150)
[2024-06-27 18:26] LABS: Lymphocytes Absolute Manual 0.55 10^3/uL (1.20-3.80); Monocytes Absolute Manual 0.31 10^3/uL (0.30-0.80); Segmented Neut Absolute Manual 2.23 10^3/uL (1.4-6.5)
== END 2024-06-27 16:33 | disposition home or self-care (01) ==
LOC: LAB 16:39
PROVIDERS: PCP Internal Medicine; Visit Provider Internal Medicine
DX: N41.0 Acute prostatitis (principal); E11.65 Type 2 diabetes mellitus with hyperglycemia; I25.10 Atherosclerotic heart disease of native coronary artery without angina pectoris; I10 Essential (primary) hypertension; E78.00 Pure hypercholesterolemia, unspecified
CPT/HCPCS: 36415; 80053; 80061; 83036; 85007; 85027

== ENCOUNTER 2024-06-28 10:39 | Outpatient (REF) | payer MEDICARE, SELFPAY ==
--- OUTSIDE RECORDS SUMMARY | 2024-06-28 10:43 | XMS_ITS | CCD ---
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 Name Role Phone PHYSICIAN, DEFAULT Unavailable Unavailable [...] Unavailable JUAN A COX Primary Care Physician [phone] ELLIS HO Admitting Unavailable GEOR[place]IA, ELLIS Attending Unavailable BLAISE, DR DORADO Primary Care Unavailable BELLA, DR SHAKA Richter Consulting Unavailable [place], ELLIS Consulting Unavailable [place], ELLIS Consulting Unavailable BALL, DR DORADO Primary Care Unavailable [place], ELLIS Attending Unavailable ELLIS HO Admitting Unavailable YEFRI, DR DOMINIC Handley Consulting Unavailable BALL, DR DORADO Primary [...] H Consulting Unavailable SISTER, RENE Consulting Unavailable BLAISE, DR DORADO Primary Care [...] Drug Allergy 9 AOF, Unknown Reaction [facility] Repository (6 sources) Neomycin; 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: [neomycin] Drug Allergy 9 Rash [facility] (5 sources) Simvastatin Drug Allergy 4 Unknown, Unknown Reaction [facility] Medications Current Medications Medication Drug Class(es) Dates [...] Daily, # 90 tab(s), Refills(s) 3, Pharmacy: [facility] (Now [facility]), 174, cm, 12/05/21 11:35:00 EST, [...] mg extended release oral capsule (17 sources) [id number] Receptor Antagonist Start: 12-14-2023 take 28 mg [...] Start: 03-10-2014 take 2 tablets by mo [facility] twice daily oxcarbazepine 300 mg Tab 600 mg = 2 tab(s), Oral, BID Start Date: 03/03/21 Status: [facility] OXcarbazepine 300 MG [...] Coronary arteriosclerosis; 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: [Atherosclerotic heart disease of [place] coronary artery without angina pectoris] Onset: 4 [...] Long-term current use of insulin; 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: [senior living (current) use of insulin] 12-14-2023 Episodic Other aftercare (6 sources) senior living (current) use of insulin; 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: [SALES EXPERT HOME THEATER CURRENT USE OF INSULIN] Onset: 3 Episodic Other aftercare (1 source) Other [facility] (current) drug therapy; 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: [OTH SALES EXPERT HOME THEATER CURRENT DRUG THERAPY] Onset: 3 Episodic Other [...] Onset: 03-27-2022 Episodic Other aftercare (1 source) senior living (current) use of aspirin; 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: [SALES EXPERT HOME THEATER CURRENT USE OF ASPIRIN] Onset: 05-09-2022 Episodic [...] Basophils (Bld) [#/Vol] 0.0 10 3/uL 0.0-0.1 [facility] Basophils/100 WBC Auto (Bld) on 02-15-2024 Basophils/100 WBC (Bld) 0.2 % 0.2-2.0 [facility] Eosinophils/100 WBC Auto (Bl d)on 02-15-2024 Eosinophils/100 WBC (Bld) 0.0 % 0.9-7.0 [facility] Erythrocyte distribution wid th Auto (RBC) [Ratio]on 02-15-2024 Erythrocyte distribution width (RBC) [Ratio] 15.2 % 11.0-15.0 [facility] Estimated glomerular filtrat ion rate (GFR) non- Americanon 02-15-2024 GFR/1.73 sq M.predicted among non-blacks MDRD (S/P/Bld) [Vol rate/Area] mL/min/{1.73_m2} >=60 [facility] Globulin Calc (S) [Mass/Vol] on 02-15-2024 Globulin (S) [Mass/Vol] 3.1 g/dL [facility] Hematocrit Auto (Bld) [Volum e fraction]on 02-15-2024 Hematocrit (Bld) [Volume fraction] 29.3 % 42.0-54.0 [facility] Hemoglobin [Mass/volume] in Bloodon 02-15-2024 Hemoglobin (Bld) [Mass/Vol] 9.7 g/dL 14.0-18.0 [facility] Laboratory - Chemistry and C hemistry - challengeon 02-15-2024 Albumin [Mass/Vol] 3.4 g/dL 3.4-5.0 [facility] ALP [Catalytic activity/Vol] 90 U/L 46-116 [facility] ALT [Catalytic activity/Vol] 31 U/L 16-63 [facility] AST [Catalytic activity/Vol] 28 U/L 15-37 [facility] Bilirubin [Mass/Vol] 0.5 mg/dL 0.2-1.0 [facility] Calcium [Mass/Vol] 9.1 mg/dL 8.5-10.1 [facility] Chloride [Moles/Vol] 107 mmol/L 98-107 [facility] CO2 [Moles/Vol] 28.2 mmol/L 21.0-32.0 [facility] Creatinine [Mass/Vol] 0.98 mg/dL 0.70-1.30 [facility] GFR/1.73 sq M.predicted MDRD (S/P/Bld) [Vol rate/Area] mL/min/{1.73_m2} >=60 [facility] Glucose [Mass/Vol] 184 mg/dL 74-106 [facility] Potassium [Moles/Vol] 3.6 mmol/L 3.5-5.1 [facility] Protein [Mass/Vol] 6.5 g/dL 6.4-8.2 [facility] Sodium [Moles/Vol] 144 mmol/L 136-145 [facility] Urea nitrogen [Mass/Vol] 24.0 mg/dL 7.0-18.0 [facility] Urea nitrogen/Creatinine [Mass ratio] 24.5 mg/mg [facility] Laboratory - Hematology and Cell countson 02-15-2024 Immature granulocytes/100 WBC (Bld) 0.6 % 0.0-0.5 [facility] Leukocytes [#/volume] correc karina for nucleated erythrocytes in Blood by Automated counon 02-15-2024 WBC corrected for nucl RBC Auto (Bld) [#/Vol] 4.7 10 3/uL 4.0-11.0 [facility] Lymphocytes Auto (Bld) [#/Vo l]on 02-15-2024 Lymphocytes (Bld) [#/Vol] 0.2 10 3/uL 1.2-3.8 [facility] Lymphocytes/100 WBC Auto (Bl d)on 02-15-2024 Lymphocytes/100 WBC (Bld) 5.1 % 20.5-60.0 [facility] MCH Auto (RBC) [Entitic mass ]on 02-15-2024 MCH (RBC) [Entitic mass] 33.3 pg 25.9-34.0 [facility] MCHC Auto (RBC) [Mass/Vol]on 02-15-2024 MCHC (RBC) [Mass/Vol] 33.1 g/dL 29.9-35.2 [facility] MCV Auto (RBC) [Entitic vol] on 02-15-2024 MCV (RBC) [Entitic vol] 100.7 fL 80.0-94.0 [facility] Monocytes Auto (Bld) [#/Vol] on 02-15-2024 Monocytes (Bld) [#/Vol] 0.3 10 3/uL 0.3-0.8 [facility] Monocytes/100 WBC Auto (Bld) on 02-15-2024 Monocytes/100 WBC (Bld) 7.2 % 1.7-12.0 [facility] Neutrophils Auto (Bld) [#/Vo l]on 02-15-2024 Neutrophils (Bld) [#/Vol] 4.1 10 3/uL 1.4-6.5 [facility] Neutrophils/100 WBC Auto (Bl d)on 02-15-2024 Neutrophils/100 WBC (Bld) 86.9 % 43.0-75.0 [facility] No Panel Informationon 02-14 Eosinophils # (Auto) 0.0 10 3/uL 0.0-0.7 [facility] Immature Granulocyte # (Auto) 0.03 10 3/uL 0.00-0.03 [facility] Platelet mean volume Auto (B ld) [Entitic vol]on 02-15-2024 Platelet mean volume (Bld) [Entitic vol] 10.6 fL 9.5-13.5 [facility] Platelets Auto (Bld) [#/Vol] on 02-15-2024 Platelets (Bld) [#/Vol] 60 10 3/uL 150-450 [facility] RBC Auto (Bld) [#/Vol]on RBC (Bld) [#/Vol] 2.91 10 6/uL 4.70-6.10 [facility] Serum or plasma albumin/glob ulin mass ratioon 02-15-2024 Albumin/Globulin [Mass ratio] 1.1 {ratio} [facility] Serum or plasma anion gap de terminationon 02-15-2024 Anion gap [Moles/Vol] 12.4 mmol/L Fi [facility] Basophils/100 WBC Manual cnt (Bld)on 02-14-2024 Basophils/100 WBC (Bld) 1.0 % 0.2-2.0 [facility] Casts typing in urine sedime nt by light microscopyon 02-14-2024 Casts LM Nom (Urine sed) NONE SEEN #/LPF NONE S EEN [facility] Eosinophils/100 WBC Manual c nt (Bld)on 02-14-2024 Eosinophils/100 WBC (Bld) 0.0 % 0.9-7.0 [facility] Erythrocyte distribution wid th Auto (RBC) [Ratio]on 02-14-2024 Erythrocyte distribution width (RBC) [Ratio] 15.0 % 11.0-15.0 [facility] Estimated glomerular filtrat ion rate (GFR) non- Americanon 02-14-2024 GFR/1.73 sq M.predicted among non-blacks MDRD (S/P/Bld) [Vol rate/Area] mL/min/{1.73_m2} >=60 [facility] Hematocrit Auto (Bld) [Volum e fraction]on 02-14-2024 Hematocrit (Bld) [Volume fraction] 28.2 % 42.0-54.0 [facility] Hemoglobin [Mass/volume] in Bloodon 02-14-2024 Hemoglobin (Bld) [Mass/Vol] 9.6 g/dL 14.0-18.0 [facility] Laboratory - Chemistry and C hemistry - challengeon 02-14-2024 Bilirubin Ql (U) Negative NEGATIVE [facility] Glucose (U) [Mass/Vol] 250 mg/dL NEGATIVE [facility] Ketones Ql (U) Negative NEGATIVE [facility] pH (U) 5.5 [pH] 5.0-9.0 [facility] Specific gravity (U) [Rel density] 1.025 1.005-1.025 [facility] Urobilinogen Qn (U) 0.2 {Jun'U}/dL 0.2-1.0 [facility] Calcium [Mass/Vol] 8.7 mg/dL 8.5-10.1 [facility] Chloride [Moles/Vol] 106 mmol/L 98-107 [facility] CO2 [Moles/Vol] 30.0 mmol/L 21.0-32.0 [facility] Creatinine [Mass/Vol] 1.12 mg/dL 0.70-1.30 [facility] GFR/1.73 sq M.predicted MDRD (S/P/Bld) [Vol rate/Area] mL/min/{1.73_m2} >=60 [facility] Glucose [Mass/Vol] 251 mg/dL 74-106 [facility] Potassium [Moles/Vol] 4.1 mmol/L 3.5-5.1 [facility] Sodium [Moles/Vol] 142 mmol/L 136-145 [facility] Urea nitrogen [Mass/Vol] 29.0 mg/dL 7.0-18.0 [facility] Urea nitrogen/Creatinine [Mass ratio] 25.9 mg/mg [facility] Laboratory - Hematology and Cell countson 02-14-2024 Band form neutrophils/100 WBC (Bld) 2.0 % 0-5 [facility] Lymphocytes/100 WBC (Bld) 1.0 % 20.5-60.0 [facility] Monocytes/100 WBC (Bld) 4.0 % 1.7-12.0 [facility] - Microbiology an d Antimicrobial susceptibilityOrdered By: Bj Ortega on 02-14-2024 Bacteria identified Cx Nom (U) [facility] Laboratory - Specimen inform ationon 02-14-2024 Appearance (U) CLEAR CLEAR [facility] Color (U) YELLOW YELLOW [facility] Laboratory - Urinalysison Amorphous sediment LM Ql (Urine sed) FEW [facility] Leukocyte esterase Test strip Ql (U) Negative NEGATIVE [facility] Nitrite Ql (U) Positive NEGATIVE [facility] Protein Ql (U) >=300 mg/dL NEG/TRACE [facility] Leukocytes [#/volume] correc karina for nucleated erythrocytes in Blood by Automated counon 02-14-2024 WBC corrected for nucl RBC Auto (Bld) [#/Vol] 4.5 10 3/uL 4.0-11.0 [facility] MCH Auto (RBC) [Entitic mass ]on 02-14-2024 MCH (RBC) [Entitic mass] 34.2 pg 25.9-34.0 [facility] MCHC Auto (RBC) [Mass/Vol]on 02-14-2024 MCHC (RBC) [Mass/Vol] 34.0 g/dL 29.9-35.2 [facility] MCV Auto (RBC) [Entitic vol] on 02-14-2024 MCV (RBC) [Entitic vol] 100.4 fL 80.0-94.0 [facility] Mucus LM Ql (Urine sed)on Mucus Ql (Urine sed) NONE SEEN NONE SEEN [facility] No Panel Informationon 02-13 Urine Bacteria LARGE #/HPF NONE SEEN [facility] Urine Culture Reflexed YES [facility] Urine Occult Blood LARGE NEGATIVE [facility] Urine Other Crystals Seen #/HPF None Seen [facility] Urine RBC 0-2 #/HPF 0-2 [facility] Urine Squamous Epithelial Cells RARE #/LPF NONE/RARE [facility] Urine WBC 2-5 #/HPF NONE SEEN [facility] Absolute Basophils (Manual) 0.04 10 3/uL 0.00-0.10 [facility] Band Neutrophils # (Manual) 0.1 10 3/uL 0.0-0.3 [facility] Eosinophils # (Manual) 0.00 10 3/uL 0.00-0.70 [facility] Lymphocytes # (Manual) 0.04 10 3/uL 1.20-3.80 [facility] Monocytes # (Manual) 0.18 10 3/uL 0.30-0.80 [facility] Segmented Neutrophils # (Manual) 4.14 10 3/uL 1.4-6.5 [facility] Platelet mean volume Auto (B ld) [Entitic vol]on 02-14-2024 Platelet mean volume (Bld) [Entitic vol] 10.4 fL 9.5-13.5 [facility] Platelets Auto (Bld) [#/Vol] on 02-14-2024 Platelets (Bld) [#/Vol] 65 10 3/uL 150-450 [facility] RBC Auto (Bld) [#/Vol]on RBC (Bld) [#/Vol] 2.81 10 6/uL 4.70-6.10 [facility] Segmented neutrophils/100 WB C Manual cnt (Bld)on 02-14-2024 Segmented neutrophils/100 WBC (Bld) 92.0 % [facility] Serum or plasma anion gap de terminationon 02-14-2024 Anion gap [Moles/Vol] 10.1 mmol/L [facility] Screenson 12-12-2022 Screens [id number] 4#[id number]:127 Normal [facility] Ambulatory Visit Summaryon 0 12-11-2022 Ambulatory Visit [...] When: Only if needed Comments: PRN Where: [address] [place] [address]- Medications What How Much When Instructions Unchanged [...] and fortified (more content not included)... Normal [facility] Lab Reportson 12-11-2022 Lab Reports [id number] 7C#[id number]:127 Normal [facility] Patient Educationon 12-12-19 Patient Education Urology Dietary [...] Rhubarb. ? Beets. ? Potato chips and bahamian fries. ? Nuts. ? If you regularly take a diuretic medicine, make sure to eat at least 1?2 fruits or vegetables high in potassium each day. These include: ? Avocado. ? Banana. ? Platina, prune, carrot, or tomato juice. ? Baked [...] salt. Salad (more content not included)... Normal [facility] RAD - MISCon 12-11-2022 [facility] MIS [id number] CE#[id number]:127 Normal [facility] Urology Office/Clinic Noteon 12-11-2022 Urology Office/Clinic Note [...] HUIZAR, Dominic Handley, URL Only if needed [address] [place] [address]- Additional Instructions: PRN Patient Education Dietary Guidelines [...] Cancer o (more content not included)... Normal [facility] Comment on above: Result Comment: Elec tronically [...] by: SHAKA BLANCO Date: 2022-12-09 12:10 Normal [facility] OXCARBAZEPINE / TRILEPTALon 11-10-2022 Oxcarbazepine 40 ug/mL Critically high 10-35 [facility] Comment on above: Result Comment: This test was developed and its performance characteristics determined by [employer]. It has not been cleared or approved by the Food and Drug Administration. Detection Limit = 1 Performed By: #### B MP #### [facility] [address] [place] [address] Dr. Kelly Mukherjee CBC AUTO DIFFon 10-05-2022 BASO # 0.0 103/ul Normal 0.0-0.1 [facility] Comment on above: Performed By: #### B MP #### [facility] [address] [place] [address] Dr. Kelly Mukherjee Basophils/100 WBC (Bld) 0.3 % Normal 0.2-2.0 [facility] Comment on above: Performed By: #### B MP #### [facility] [address] [place] [address] Dr. Kelly Mukherjee EO # 0.1 103/ul Normal 0.0-0.7 [facility] Comment on above: Performed By: #### B MP #### [facility] [address] [place] [address] Dr. Kelly Mukherjee Eosinophils/100 WBC (Bld) 2.2 % Normal 0.9-7.0 [facility] Comment on above: Performed By: #### B MP #### [facility] [address] [place] [address] Dr. Kelly Mukherjee Erythrocyte distribution width (RBC) [Ratio] 14.8 % Normal 11.0-15.0 [facility] Comment on above: Performed By: #### B MP #### [facility] [address] [place] [address] Dr. Kelly Mukherjee Hematocrit (Bld) [Volume fraction] 29.5 % Critically low 42.0-54.0 [facility] Comment on above: Performed By: #### B MP #### [facility] [address] [place] [address] Dr. Kelly Mukherjee Hemoglobin (Bld) [Mass/Vol] 10.3 g/dL Critically low 14.0-18.0 [facility] Comment on above: Performed By: #### B MP #### [facility] [address] [place] [address] Dr. Kelly Mukherjee IG # 0.01 10e3/ul Normal 0.00-0.03 [facility] Comment on above: Performed By: #### B MP #### [facility] [address] [place] [address] Dr. Kelly Mukherjee IG % 0.3 % Normal 0.0-0.5 [facility] Comment on above: Performed By: #### B MP #### [facility] [address] [place] [address] Dr. Kelly Mukherjee LYMPH # 0.5 103/ul Critically low 1.2-3.8 [facility] Comment on above: Performed By: #### B MP #### [facility] [address] [place] [address] Dr. Kelly Mukherjee Lymphocytes/100 WBC (Bld) 16.0 % Critically low 20.5-6 0.0 [facility] Comment on above: Performed By: #### B MP #### [facility] [address] [place] [address] Dr. Kelly Mukherjee MANUAL DIFF REQ NO Normal [facility] Comment on above: Performed By: #### B MP #### [facility] [address] [place] [address] Dr. Kelly Mukherjee MCH (RBC) [Entitic mass] 34.1 pg Critically high 25.9-3 4.0 [facility] Comment on above: Performed By: #### B MP #### [facility] [address] [place] [address] Dr. Kelly Mukherjee MCHC (RBC) [Mass/Vol] 34.9 g/dL Normal 29.9-35.2 [facility] Comment on above: Performed By: #### B MP #### [facility] [address] [place] [address] Dr. Kelly Mukherjee MCV (RBC) [Entitic vol] 97.7 fL Critically high 80.0-94 .0 [facility] Comment on above: Performed By: #### B MP #### [facility] [address] [place] [address] Dr. Kelly Mukherjee MONO # 0.2 103/ul Critically low 0.3-0.8 [facility] Comment on above: Performed By: #### B MP #### [facility] [address] [place] [address] Dr. Kelly Mukherjee Monocytes/100 WBC (Bld) 5.8 % Normal 1.7-12.0 [facility] Comment on above: Performed By: #### B MP #### [facility] [address] [place] [address] Dr. Kelly Mukherjee NEUT # 2.4 103/ul Normal 1.4-6.5 [facility] Comment on above: Performed By: #### B MP #### [facility] [address] [place] [address] Dr. Kelly Mukherjee Neutrophils/100 WBC (Bld) 75.4 % Critically high 43.0- 75.0 [facility] Comment on above: Performed By: #### B MP #### [facility] [address] [place] [address] Dr. Kelly Mukherjee Platelet mean volume (Bld) [Entitic vol] 10.1 fL Normal 9.5-13.5 [facility] Comment on above: Performed By: #### B MP #### [facility] [address] [place] [address] Dr. Kelly Mukherjee PLT 63 103/ul Critically low 150-[address] [facility] Comment on above: Performed By: #### B MP #### [facility] [address] [place] [address] Dr. Kelly Mukherjee RBC 3.02 106/ul Critically low 4.70-6.10 [facility] Comment on above: Performed By: #### B MP #### [facility] [address] [place] [address] Dr. Kelly Mukherjee WBC 3.1 103/ul Critically low 4.0-11.0 [facility] Comment on above: Performed By: #### B MP #### [facility] [address] [place] [address] Dr. Kelly Mukherjee ER URINE PROFILEon 2 Bilirubin Ql (U) Negative Normal NEGATIVE [facility] Comment on above: Performed By: #### B MP #### [facility] [address] [place] [address] Dr. Kelly Mukherjee Clarity (U) CLEAR Normal CLEAR [facility] Comment on above: Performed By: #### B MP #### [facility] [address] [place] [address] Dr. Kelly Mukherjee Color (U) LT. YELLOW Normal YELLOW [facility] Comment on above: Performed By: #### B MP #### [facility] [address] [place] [address] Dr. Kelly MCELROYVirginia A micrscopic examination will be performed if indicated. Normal [facility] Comment on above: Performed By: #### B MP #### [facility] [address] [place] [address] Dr. Kelly Mukherjee Glucose Ql (U) 250 mg/dl Abnormal NEGATIVE [facility] Comment on above: Performed By: #### B MP #### [facility] [address] [place] [address] Dr. Kelly Mukherjee Hemoglobin Ql (U) Negative Normal NEGATIVE [facility] Comment on above: Performed By: #### B MP #### [facility] [address] [place] [address] Dr. Kelly Mukherjee Ketones Ql (U) Negative Normal NEGATIVE [facility] Comment on above: Performed By: #### B MP #### [facility] [address] [place] [address] Dr. Kelly Mukherjee LEUKOCYTES Negative Normal NEGATIVE [facility] Comment on above: Performed By: #### B MP #### [facility] [address] [address] [address] Kelly Mukherjee Nitrite Ql (U) Negative Normal NEGATIVE [facility] Comment on above: Performed By: #### B MP #### [facility] [address] [address] [address] Kelly Mukherjee pH (U) 7.0 [pH] Normal 5-9 [facility] Comment on above: Performed By: #### B MP #### [facility] [address] [address] [address] Kelly Mukherjee Protein (U) [Mass/Vol] 100 mg/dL Abnormal NEGAT NADER/ TRACE [facility] Comment on above: Performed By: #### B MP #### [facility] [address] [place] [address] Dr. Kelly Mukherjee SPEC GRAVITY 1.020 Normal 1.005-<=1.02 5 [facility] Comment on above: Performed By: #### B MP #### [facility] [address] [address] [address] Kelly Mukherjee UR MICRO IND NOT INDICATED Normal [facility] Comment on above: Performed By: #### B MP #### [facility] [address] [address] [address] Kelly Mukherjee Urobilinogen Qn (U) 0.2 {Jun'U}/dL Normal 0.2 - 1. 0 [facility] Comment on above: Performed By: #### B MP #### [facility] [address] [place] [address] Dr. Kelly Mukherjee POINT OF CARE GLUCOSEon 09-08 Glucose [Mass/Vol] 253 mg/dL Critically high 74-106 [facility] Comment on above: Performed By: #### P OCGLUC #### [facility] [address] [place] [address] Dr. Kelly Mukherjee PROF CHEM 8 (BAS METB)on Anion gap [Moles/Vol] 8.5 mmol/L Normal [facility] Comment on above: Performed By: #### B MP #### [facility] [address] [address] [address] Kelly Mukherjee Calcium [Mass/Vol] 8.7 mg/dL Normal 8.5-10.1 [facility] Comment on above: Performed By: #### B MP #### [facility] [address] [address] [address] Kelly Mukherjee Chloride [Moles/Vol] 106 mmol/L Normal 98-107 [facility] Comment on above: Performed By: #### B MP #### [facility] [address] [address] [address] Kelly Mukherjee CO2 [Moles/Vol] 29.0 mmol/L Normal 21.0-32.0 [facility] Comment on above: Performed By: #### B MP #### [facility] [address] [address] [address] Kelly Mukherjee Creatinine [Mass/Vol] 0.84 mg/dL Normal 0.70-1.30 [facility] Comment on above: Performed By: #### B MP #### [facility] [address] [address] [address] Kelly Mukherjee EGFR-AF BAHRAINI >60 Normal >=60 [facility] Comment on above: Performed By: #### B MP #### [facility] [address] [address] [address] Kelly Mukherjee EGFR-NON AF BAHRAINI >60 Normal >=60 [facility] Comment on above: Performed By: #### B MP #### [facility] [address] [address] [address] Kelly Mukherjee Glucose [Mass/Vol] 119 mg/dL Critically high 74-106 [facility] Comment on above: Performed By: #### B MP #### [facility] [address] [address] [address] Kelly Mukherjee Potassium [Moles/Vol] 3.5 mmol/L Normal 3.5-5.1 [facility] Comment on above: Performed By: #### B MP #### [facility] [address] [address] [address] Kelly Mukherjee Sodium [Moles/Vol] 140 mmol/L Normal 136-145 [facility] Comment on above: Performed By: #### B MP #### [facility] [address] [place] [address] Dr. Kelly Mukherjee Urea nitrogen [Mass/Vol] 21.0 mg/dL Critically high 7.0-18 .0 [facility] Comment on above: Performed By: #### B MP #### [facility] [address] [place] [address] Dr. Kelly Mukherjee Urea nitrogen/Creatinine [Mass ratio] 25.0 mg/mg Normal [facility] Comment on above: Performed By: #### B MP #### [facility] [address] [place] [address] Dr. Kelly Mukherjee CBC AUTO DIFFon 10-04-2022 BASO # 0.0 103/ul Normal 0.0-0.1 [facility] Comment on above: Performed By: #### P OCGLUC #### [facility] [address] [place] [address] Dr. Kelly Mukherjee Basophils/100 WBC (Bld) 0.2 % Normal 0.2-2.0 [facility] Comment on above: Performed By: #### P OCGLUC #### [facility] [address] [place] [address] Dr. Kelly Mukherjee EO # 0.0 103/ul Normal 0.0-0.7 [facility] Comment on above: Performed By: #### P OCGLUC #### [facility] [address] [place] [address] Dr. Kelly Mukherjee Eosinophils/100 WBC (Bld) 1.0 % Normal 0.9-7.0 [facility] Comment on above: Performed By: #### P OCGLUC #### [facility] [address] [place] [address] Dr. Kelly Mukherjee Erythrocyte distribution width (RBC) [Ratio] 15.1 % Critically high 11.0-15.0 [facility] Comment on above: Performed By: #### P OCGLUC #### [facility] [address] [address] [address] Kelly Mukherjee Hematocrit (Bld) [Volume fraction] 30.3 % Critically low 42.0-54.0 [facility] Comment on above: Performed By: #### P OCGLUC #### [facility] [address] [address] [address] Kelly Mukherjee Hemoglobin (Bld) [Mass/Vol] 10.7 g/dL Critically low 14.0-18.0 [facility] Comment on above: Performed By: #### P OCGLUC #### [facility] [address] [address] [address] Kelly Mukherjee IG # 0.01 10e3/ul Normal 0.00-0.03 [facility] Comment on above: Performed By: #### P OCGLUC #### [facility] [address] [address] [address] Kelly Mukherjee IG % 0.2 % Normal 0.0-0.5 [facility] Comment on above: Performed By: #### P OCGLUC #### [facility] [address] [address] [address] Kelly Mukherjee LYMPH # 0.4 103/ul Critically low 1.2-3.8 [facility] Comment on above: Performed By: #### P OCGLUC #### [facility] [address] [address] [address] Kelly Mukherjee Lymphocytes/100 WBC (Bld) 8.9 % Critically low 20.5-6 0.0 [facility] Comment on above: Performed By: #### P OCGLUC #### [facility] [address] [address] [address] Kelly Mukherjee MANUAL DIFF REQ NO Normal [facility] Comment on above: Performed By: #### P OCGLUC #### [facility] [address] [address] [address] Kelly Mukherjee MCH (RBC) [Entitic mass] 34.1 pg Critically high 25.9-3 4.0 [facility] Comment on above: Performed By: #### P OCGLUC #### [facility] [address] [address] [address] Kelly Mukherjee MCHC (RBC) [Mass/Vol] 35.3 g/dL Critically high 29.9-35.2 [facility] Comment on above: Performed By: #### P OCGLUC #### [facility] [address] [address] [address] Kelly Mukherjee MCV (RBC) [Entitic vol] 96.5 fL Critically high 80.0-94 .0 [facility] Comment on above: Performed By: #### P OCGLUC #### [facility] [address] [address] [address] Kelly Mukherjee MONO # 0.2 103/ul Critically low 0.3-0.8 [facility] Comment on above: Performed By: #### P OCGLUC #### [facility] [address] [address] [address] Kelly Mukherjee Monocytes/100 WBC (Bld) 6.0 % Normal 1.7-12.0 [facility] Comment on above: Performed By: #### P OCGLUC #### [facility] [address] [address] [address] Kelly Mukherjee NEUT # 3.4 103/ul Normal 1.4-6.5 [facility] Comment on above: Performed By: #### P OCGLUC #### [facility] [address] [address] [address] Kelly Mukherjee Neutrophils/100 WBC (Bld) 83.7 % Critically high 43.0- 75.0 [facility] Comment on above: Performed By: #### P OCGLUC #### [facility] [address] [address] [address] Kelly Mukherjee Platelet mean volume (Bld) [Entitic vol] 10.2 fL Normal 9.5-13.5 [facility] Comment on above: Performed By: #### P OCGLUC #### [facility] [address] [address] [address] Kelly Mukherjee PLT 76 103/ul Critically low 150-450 [facility] Comment on above: Performed By: #### P OCGLUC #### [facility] [address] [place], [place] [address] Dr. Kelly Mukherjee RBC 3.14 106/ul Critically low 4.70-6.10 [facility] Comment on above: Performed By: #### P OCGLUC #### [facility] [address] [place], [place] [address] Dr. Kelly Mukherjee WBC 4.0 103/ul Normal 4.0-11.0 [facility] Comment on above: Performed By: #### P OCGLUC #### [facility] [address] [place], [place] [address] HEAD WO CONon [...] SYLVESTER BARBOUR Date: 2022-10-04 15:[address] [facility]08 SARS-CoV-2 (COVID-19) RNA ABIMBOLA+probe Ql (Unsp spec) Not detected Normal NOT DETECTED [facility] Comment on above: Result Comment: When [...] for this test is supported by the [place] of [employer] and Human Service's declaration that [...] used). Performed By: #### C VDTBH #### [facility] [address] [place] [address] Dr. Kelly Mukherjee POINT OF CARE GLUCOSEon 09-08 Glucose [Mass/Vol] 134 mg/dL Critically high 74-106 [facility] Comment on above: Performed By: #### P OCGLUC #### [facility] [address] [place] [address] Dr. Kelly Mukherjee PROF CHEM 8 (BAS METB)on Anion gap [Moles/Vol] 12.9 mmol/L Normal [facility] Comment on above: Performed By: #### B MP #### [facility] [address] [place] [address] Dr. Kelly Mukherjee Calcium [Mass/Vol] 9.0 mg/dL Normal 8.5-10.1 [facility] Comment on above: Performed By: #### B MP #### [facility] [address] [place] [address] Dr. Kelly Mukherjee Chloride [Moles/Vol] 106 mmol/L Normal 98-107 [facility] Comment on above: Performed By: #### B MP #### [facility] [address] [place] [address] Dr. Kelly Mukherjee CO2 [Moles/Vol] 27.2 mmol/L Normal 21.0-32.0 [facility] Comment on above: Performed By: #### B MP #### [facility] [address] [address] [address] Kelly Mukherjee Creatinine [Mass/Vol] 0.98 mg/dL Normal 0.70-1.30 [facility] Comment on above: Performed By: #### B MP #### [facility] [address] [address] [address] Kelly Mukherjee EGFR-AF BAHRAINI >60 Normal >=60 [facility] Comment on above: Performed By: #### B MP #### [facility] [address] [place] [address] Dr. Kelly Mukherjee EGFR-NON AF BAHRAINI >60 Normal >=60 [facility] Comment on above: Performed By: #### B MP #### [facility] [address] [place] [address] Dr. Kelly Mukherjee Glucose [Mass/Vol] 146 mg/dL Critically high 74-106 [facility] Comment on above: Performed By: #### B MP #### [facility] [address] [place] [address] Dr. Kelly Mukherjee Potassium [Moles/Vol] 4.1 mmol/L Normal 3.5-5.1 [facility] Comment on above: Performed By: #### B MP #### [facility] [address] [place] [address] Dr. Kelly Mukherjee Sodium [Moles/Vol] 142 mmol/L Normal 136-145 [facility] Comment on above: Performed By: #### B MP #### [facility] [address] [address] [address] Kelly Mukherjee Urea nitrogen [Mass/Vol] 24.0 mg/dL Critically high 7.0-18 .0 [facility] Comment on above: Performed By: #### B MP #### [facility] [address] [place] [address] Dr. Kelly Mukherjee Urea nitrogen/Creatinine [Mass ratio] 24.5 mg/mg Normal [facility] Comment on above: Performed By: #### B MP #### [facility] [address] [place] [address] Dr. Kelly Mukherjee PROTIMEon 10-04-2022 INR Coag (PPP) [Relative time] 1.06 {INR} Normal [facility] Comment on above: Performed By: #### C VDTBH #### [facility] [address] [place] [address] Dr. Kelly Mukherjee INR GUIDELINES SEE BELOW Normal [facility] Comment on above: Result Comment: JULIANA RED INR: 2.0 - 3.0 CONDITIONS NOT LISTED BELOW 2.5 - 3.5 FOR PROSTHETIC HEART VALVE REPLACEMENT 2.5 - 3.5 RECURRENT THROMBOSIS Performed By: #### C VDTBH #### [facility] [address] [place] [address] Dr. Kelly Mukherjee PT Coag (PPP) [Time] 11.4 s Normal 9.0-11.6 [facility] Comment on above: Performed By: #### C VDTBH #### [facility] [address] [place] [address] Dr. Kelly Mukherjee PTTon 10-04-2022 aPTT Coag (Bld) [Time] 24.5 s Normal 22.3-36.[address] [facility] Comment on above: Performed By: #### C VDTBH #### [facility] [address] [place] [address] Dr. Kelly Mukherjee TROPONIN, HIGH SENSITIVITYon 10-04-2022 HSTROP 7.1 pg/mL Normal 4.0-76.1 [facility] Comment on above: Result Comment: CUT- OFF POINTS HAVE BEEN ESTABLISHED BASED ON THE FOURTH UNIVERSAL DEFINITIONS OF MYOCARDIAL INFARCTION. THE UPPER REFERENCE LIMIT (URL) OF TROPONIN, DEFINED THE 99TH PERCENTILE OF cTnI DISTRIBUTION IN A REFERENCE POPULATION, HAS BEEN CONFIRMED THE DECISION THRESHOLD FOR [place] DIAGNOSIS. Performed By: #### C VDTBH #### [facility] [address] [place] [address] Dr. Kelly Mukherjee XR CHEST 1 Von [...] by: SYLVESTER BARBOUR Date: 2022-10-04 15:31 Normal [facility] BRIAN GOULD ([id number]) 1945 M Date Time Provider Department 09/01/22 [...] Fully Assessed Reason for Visit: Care Coordination [2196] Cmt: Lab Results Prescriptions as of 09/01/2022 [...] Status:Closed by ROLANDO BOWEN on 09/01/22 Normal [facility] CBC W Auto Differential pane l (Bld)on 08-30-2022 Basophils (Bld) [#/Vol] 10*3/uL Normal <0.11 C [facility] Comment on above: Order Comment: Speci men Type: BLOOD SPECIMEN Ordering Facility: [facility] Address: [address] [place] [phone] Performed By: #### 5 7021-8 #### [facility] CLIA [id number] [address] [place] [address] Basophils/100 WBC (Bld) 0.5 % Normal C [facility] Comment on above: Order Comment: Speci men Type: BLOOD SPECIMEN Ordering Facility: [facility] Address: [address] [place] [address] Performed By: #### 5 7021-8 #### [facility] CLIA [id number] [address] [place] [address] Differential cell count method Nom (Bld) Auto Normal [facility] Comment on above: Order Comment: Speci men Type: BLOOD SPECIMEN Ordering Facility: [facility] Address: [address] [place] [address] Performed By: #### 5 7021-8 #### [facility] CLIA [id number] [address] [place] [address] Eosinophils (Bld) [#/Vol] 0.08 10*3/uL Normal <0.46 [facility] Comment on above: Order Comment: Speci men Type: BLOOD SPECIMEN Ordering Facility: [facility] Address: [address] [place] [address] Performed By: #### 5 7021-8 #### [facility] CLIA [id number] [address] [place] [address] Eosinophils/100 WBC (Bld) 2.1 % Normal [facility] Comment on above: Order Comment: Speci men Type: BLOOD SPECIMEN Ordering Facility: [facility] Address: [address] [place] [address] Performed By: #### 5 7021-8 #### [facility] CLIA [id number] [address] [place] [address] Erythrocyte distribution width (RBC) [Ratio] 15.9 % High 11.5-15.0 [facility] Comment on above: Order Comment: Speci men Type: BLOOD SPECIMEN Ordering Facility: [facility] Address: [address] [address] Performed By: #### 5 7021-8 #### [facility] CLIA [id number] [address] [place] [address] Hematocrit (Bld) [Volume fraction] 33.5 % Low 39.0-51.0 [facility] Comment on above: Order Comment: Speci men Type: BLOOD SPECIMEN Ordering Facility: [facility] Address: [address] [address] Performed By: #### 5 7021-8 #### [facility] CLIA [id number] [address] [place] [address] Hemoglobin (Bld) [Mass/Vol] 11.4 g/dL Low 13.0-17.0 [facility] Comment on above: Order Comment: Speci men Type: BLOOD SPECIMEN Ordering Facility: [facility] Address: [address] [place] [address] Performed By: #### 5 7021-8 #### [facility] CLIA [id number] [address] [place] [address] Immature granulocytes (Bld) [#/Vol] 10*3/uL Normal <0.10 [facility] Comment on above: Order Comment: Speci men Type: BLOOD SPECIMEN Ordering Facility: [facility] Address: [address] [address] Performed By: #### 5 7021-8 #### [facility] CLIA [id number] [address] [place] [address] Immature granulocytes/100 WBC (Bld) 0.3 % Normal [facility] Comment on above: Order Comment: Speci men Type: BLOOD SPECIMEN Ordering Facility: [facility] Address: [address] [address] Performed By: #### 5 7021-8 #### [facility] CLIA [id number] [address] [place] [address] Lymphocytes (Bld) [#/Vol] 0.60 10*3/uL Low 1.00-4.0 0 [facility] Comment on above: Order Comment: Speci men Type: BLOOD SPECIMEN Ordering Facility: [facility] Address: [address] [address] Performed By: #### 5 7021-8 #### [facility] CLIA [id number] [address] [place] [address] Lymphocytes/100 WBC (Bld) 16.1 % Normal [facility] Comment on above: Order Comment: Speci men Type: BLOOD SPECIMEN Ordering Facility: [facility] Address: [address] [address] Performed By: #### 5 7021-8 #### [facility] CLIA [id number] [address] [place] [address] MCH (RBC) [Entitic mass] 33.3 pg Normal 26.0-34.0 [facility] Comment on above: Order Comment: Speci men Type: BLOOD SPECIMEN Ordering Facility: [facility] Address: [address] [address] Performed By: #### 5 7021-8 #### [facility] CLIA [id number] [address] [place] [address] MCHC (RBC) [Mass/Vol] 34.0 g/dL Normal 30.5-36.0 [facility] Comment on above: Order Comment: Speci men Type: BLOOD SPECIMEN Ordering Facility: [facility] Address: [address] [address] Performed By: #### 5 7021-8 #### [facility] CLIA [id number] [address] [place] [address]80 MCV (RBC) [Entitic vol] 98.0 fL Normal 80.0-100.0 C [facility] Comment on above: Order Comment: Speci men Type: BLOOD SPECIMEN Ordering Facility: [facility] Address: [address] [address] Performed By: #### 5 7021-8 #### [facility] CLIA [id number] [address] [place] [address] Monocytes (Bld) [#/Vol] 0.26 10*3/uL Normal <0.87 [facility] Comment on above: Order Comment: Speci men Type: BLOOD SPECIMEN Ordering Facility: [facility] Address: [address] [place] [address] Performed By: #### 5 7021-8 #### [facility] CLIA [id number] [address] [place] [address] Monocytes/100 WBC (Bld) 7.0 % Normal [facility] Comment on above: Order Comment: Speci men Type: BLOOD SPECIMEN Ordering Facility: [facility] Address: [address] [place] [address] Performed By: #### 5 7021-8 #### [facility] CLIA [id number] [address] [place] [address] Neutrophils (Bld) [#/Vol] 2.76 10*3/uL Normal 1.45-7.5 0 [facility] Comment on above: Order Comment: Speci men Type: BLOOD SPECIMEN Ordering Facility: [facility] Address: [address] [place] [address] Performed By: #### 5 7021-8 #### [facility] CLIA [id number] [address] [place] [address]207 Neutrophils/100 WBC (Bld) 74.0 % Normal [facility] Comment on above: Order Comment: Speci men Type: BLOOD SPECIMEN Ordering Facility: [facility] Address: [address] [place] [address] Performed By: #### 5 7021-8 #### [facility] CLIA [id number] [address] [place] [address] Nucleated RBC (Bld) [#/Vol] 10*3/uL Normal <0.01 [facility] Comment on above: Order Comment: Speci men Type: BLOOD SPECIMEN Ordering Facility: [facility] Address: [address] [address] Performed By: #### 5 7021-8 #### [facility] CLIA [id number] [address] [place] [address] Nucleated RBC/100 WBC (Bld) [Ratio] 0.0 /100 WBC Normal [facility] Comment on above: Order Comment: Speci men Type: BLOOD SPECIMEN Ordering Facility: [facility] Address: [address] [place] [address] Performed By: #### 5 7021-8 #### [facility] CLIA [id number] [address] [place] [address] Platelet mean volume (Bld) [Entitic vol] 9.7 fL Normal 9.0-12.7 [facility] Comment on above: Order Comment: Speci men Type: BLOOD SPECIMEN Ordering Facility: [facility] Address: [address] [place] [address] Performed By: #### 5 7021-8 #### [facility] CLIA [id number] [address] [place] [address] Platelets (Bld) [#/Vol] 81 10*3/uL Low 150-400 C [facility] Comment on above: Order Comment: Speci men Type: BLOOD SPECIMEN Ordering Facility: [facility] Address: [address] [place] [address] Result [facility] Performed By: #### 5 7021-8 #### [facility] CLIA [id number] [address] [place] [address] RBC (Bld) [#/Vol] 3.42 10*6/uL Low 4.20-6.[address] [facility] Comment on above: Order Comment: Speci men Type: BLOOD SPECIMEN Ordering Facility: [facility] Address: [address] [place] [address] Performed By: #### 5 7021-8 #### [facility] CLIA [id number] [address] [place] [address] WBC (Bld) [#/Vol] 3.73 10*3/uL Normal 3.70-11.[address] [facility] Comment on above: Order Comment: Speci men Type: BLOOD SPECIMEN Ordering Facility: [facility] Address: [address] [place] [phone] Performed By: #### 5 7021-8 #### [facility] CLIA [id number] [address] [place] [address] Basophils (Bld) [#/Vol] <0.11 k/uL [facility] Basophils/100 WBC (Bld) 0.5 % C [facility] Differential cell count method Nom (Bld) Auto [facility] Eosinophils (Bld) [#/Vol] 0.08 10*3/uL <0.46 k/ uL [facility] Eosinophils/100 WBC (Bld) 2.1 % [facility] Erythrocyte distribution width (RBC) [Ratio] 15.9 % High 11.5 - 15.0 % [facility] Hematocrit (Bld) [Volume fraction] 33.5 % Low 39.0 - 51.0 % [facility] Hemoglobin (Bld) [Mass/Vol] 11.4 g/dL Low 13.0 - 17.0 g/dL [facility] Immature granulocytes (Bld) [#/Vol] <0.10 k/uL [facility] Immature granulocytes/100 WBC (Bld) 0.3 % [facility] Lymphocytes (Bld) [#/Vol] 0.60 10*3/uL Low 1. 00 - 4.00 k/uL [facility] Lymphocytes/100 WBC (Bld) 16.1 % [facility] MCH (RBC) [Entitic mass] 33.3 pg 26. 0 - 34.0 pg [facility] MCHC (RBC) [Mass/Vol] 34.0 g/dL 30.5 - 36.0 g/dL [facility] MCV (RBC) [Entitic vol] 98.0 fL 80.0 - 100.0 fL [facility] Monocytes (Bld) [#/Vol] 0.26 10*3/uL <0.87 k/uL [facility] Monocytes/100 WBC (Bld) 7.0 % [facility] Neutrophils (Bld) [#/Vol] 2.76 10*3/uL 1. 45 - 7.50 k/uL [facility] [place] [facility] Neutrophils/100 WBC (Bld) 74.0 % [facility] Nucleated RBC (Bld) [#/Vol] <0.01 k/uL [facility] Nucleated RBC/100 WBC (Bld) [Ratio] 0.0 /100 WBC [facility] Platelet mean volume (Bld) [Entitic vol] 9.7 fL 9.0 - 12.7 fL [facility] Platelets (Bld) [#/Vol] 81 10*3/uL Low 150 - 400 k/uL [facility] RBC (Bld) [#/Vol] 3.42 10*6/uL Low 4.20 - 6.0 0 m/uL [facility] WBC (Bld) [#/Vol] 3.73 10*3/uL 3.70 - 11. 00 k/uL [facility] CNOVSPon 08-30-2022 CNOVSP Visit (SP) Office ([place]) ---- BRIAN GOULD ([id number]) 1945 M Date Time Provider Department 08/30/22 3:00 PM TRICIA CRESPO During your visit today, we recorded the following information about you: Temperature Pulse Respiration Blood pressure 97.7 degrees 59/minute 18/minute 158/59 Weight Height 73.6 kg 1.703 m Tricia Crespo MD 08/30/2022 3:09 PM Signed Patient: Brian Gould Location: [facility] : 1945 Attending Physician: Dr. Vazquez Quinonez [...] distress, pl (more content not included)... Normal [facility] Comprehensive metabolic 2000 panelon 08-30-2022 Albumin [Mass/Vol] 4.5 g/dL Normal 3.9-4.9 [facility] Comment on above: Order Comment: Speci men Type: BLOOD SPECIMEN Ordering Facility: [facility] Address: [address] [place] [phone] Performed By: #### 2 532-0, 23437-0 #### [facility] CLIA [id number] [address] [place] [address] ALP [Catalytic activity/Vol] 86 U/L Normal 38-113 [facility] Comment on above: Order Comment: Speci men Type: BLOOD SPECIMEN Ordering Facility: [facility] Address: [address] [address] Performed By: #### 2 532-0, 99251-5 #### [facility] CLIA [id number] [address] [place] [address] ALT [Catalytic activity/Vol] 15 U/L Normal 10-54 [facility] Comment on above: Order Comment: Speci men Type: BLOOD SPECIMEN Ordering Facility: [facility] Address: [address] [place] [address] Performed By: #### 2 532-0, #### [facility] CLIA [id number] [address] [place] [address] Anion gap [Moles/Vol] 8 mmol/L Low 9-18 [facility] Comment on above: Order Comment: Speci men Type: BLOOD SPECIMEN Ordering Facility: [facility] Address: [address] [place] [address] Performed By: #### 2 532-0, 67997-6 #### [facility] LAB CLIA [id number] [address] [place] [address]14 AST [Catalytic activity/Vol] 16 U/L Normal 14-40 [facility] Comment on above: Order Comment: Speci men Type: BLOOD SPECIMEN Ordering Facility: [facility] Address: [address] [address] Performed By: #### 2 532-0, 18399-9 #### [facility] CLIA [id number] [address] [place] [address]1977 Bilirubin [Mass/Vol] 0.5 mg/dL Normal 0.2-1.3 [facility] Comment on above: Order Comment: Speci men Type: BLOOD SPECIMEN Ordering Facility: [facility] Address: [address] [place] [address], [place] [address] Performed By: #### 2 532-0, #### [facility] CLIA [id number] [address] [place] [address] 39771 Calcium [Mass/Vol] 9.5 mg/dL Normal 8.5-10.2 [facility] Comment on above: Order Comment: Speci men Type: BLOOD SPECIMEN Ordering Facility: [facility] Address: [address] [address] Performed By: #### 2 532-0, #### [facility] CLIA [id number] [address] [place] [address] 12886 Chloride [Moles/Vol] 110 mmol/L High 97-105 [facility] Comment on above: Order Comment: Speci men Type: BLOOD SPECIMEN Ordering Facility: [facility] Address: [address] [address] Performed By: #### 2 532-0, #### [facility] CLIA [id number] [address] [place] [address] 18508 CO2 [Moles/Vol] 30 mmol/L Normal 22-30 [facility] Comment on above: Order Comment: Speci men Type: BLOOD SPECIMEN Ordering Facility: [facility] Address: [address] [address] Performed By: #### 2 532-0, #### [facility] CLIA [id number] [address] [place] [address] 70652 Creatinine [Mass/Vol] 0.93 mg/dL Normal 0.73-1.22 [facility] Comment on above: Order Comment: Speci men Type: BLOOD SPECIMEN Ordering Facility: [facility] Address: [address] [address] Performed By: #### 2 532-0, #### [facility] CLIA [id number] [address] [place] [address] 77179 ESTIMATED GLOMERULAR FILTRATION RATE 85 mL/min/1.73m??? Normal >=60 [facility] Comment on above: Order Comment: Helio helton Type: BLOOD SPECIMEN Ordering Facility: [facility] Address: [place] [address] Result Comment: Arelis mated Glomerular Filtration Rate [...] actual GFR. Performed By: #### 2 532-0, 30688-4 #### [facility] CLIA [id number] [address] [place] [address] 34006 Glucose [Mass/Vol] 86 mg/dL Normal 74-99 [facility] Comment on above: Order Comment: Helio helton Type: BLOOD SPECIMEN Ordering Facility: [facility] Address: [place] [address] Result Comment: The [place] [employer] (ADA) provides guidance for cutoff [...] Standards of Medical Care in Diabetes 2016, [place] [employer]. Diabetes Care. 2016.39(Suppl 1). Performed By: #### 2 532-0, 24215-6 #### [facility] CLIA [id number] [address] [place] [address] 20853 Potassium [Moles/Vol] 4.3 mmol/L Normal 3.7-5.1 [facility] Comment on above: Order Comment: Helio helton Type: BLOOD SPECIMEN Ordering Facility: [facility] Address: [address] [address] Performed By: #### 2 532-0, 46703-6 #### [facility] CLIA [id number] [address] [place] [address] 42839 Protein [Mass/Vol] 6.4 g/dL Normal 6.3-8.0 [facility] Comment on above: Order Comment: Speci men Type: BLOOD SPECIMEN Ordering Facility: [facility] Address: [address] [address] Performed By: #### 2 532-0, #### [facility] CLIA [id number] [address] [place] [address]6714 Sodium [Moles/Vol] 148 mmol/L High 136-144 [facility] Comment on above: Order Comment: Speci men Type: BLOOD SPECIMEN Ordering Facility: [facility] Address: [address] [address] Performed By: #### 2 532-0, #### [facility] CLIA [id number] [address] [place] [address] 6[address]40 Urea nitrogen [Mass/Vol] 24 mg/dL Normal 9-24 [facility] Comment on above: Order Comment: Speci men Type: BLOOD SPECIMEN Ordering Facility: [facility] Address: [address] [address] Performed By: #### 2 532-0, #### [facility] CLIA [id number] [address] [place] [address] 67868 Albumin [Mass/Vol] 4.5 g/dL 3.9 - 4.9 g/dL [facility] ALP [Catalytic activity/Vol] 86 U/L 38 - 113 U/L [facility] ALT [Catalytic activity/Vol] 15 U/L 10 - 54 U/L [facility] Anion gap [Moles/Vol] 8 mmol/L Low 9 - 18 mmol/L [facility] AST [Catalytic activity/Vol] 16 U/L 14 - 40 U/L [facility] Bilirubin [Mass/Vol] 0.5 mg/dL 0.2 - 1 .3 mg/dL [facility] Calcium [Mass/Vol] 9.5 mg/dL 8.5 - 10. 2 mg/dL [facility] Chloride [Moles/Vol] 110 mmol/L High 97 - 10 5 mmol/L [facility] CO2 [Moles/Vol] 30 mmol/L 22 - 30 mmol/L [facility] Creatinine [Mass/Vol] 0.93 mg/dL 0.73 - 1.22 mg/dL [facility] Estimated Glomerular Filtration Rate 85 mL/min/1.73m >=60 mL/min/1.73m [facility] Glucose [Mass/Vol] 86 mg/dL 74 - 99 mg/dL [facility] Potassium [Moles/Vol] 4.3 mmol/L 3.7 - 5.1 mmol/L [facility] Protein [Mass/Vol] 6.4 g/dL 6.3 - 8.0 g/dL [facility] Sodium [Moles/Vol] 148 mmol/L High 136 - 144 mmol/L [facility] Urea nitrogen [Mass/Vol] 24 mg/dL 9 - 24 mg/d L [facility] Ferritin SerPl-mCncon 2021 Ferritin [Mass/Vol] 121.0 ng/mL Normal 30.3-565.7 [facility] Comment on above: Order Comment: Speci men Type: BLOOD SPECIMEN Ordering Facility: [facility] Address: [address] [place] [address] Performed By: #### 5 0190-8, 2132-06, 2276-01 #### [facility] CLIA [id number] [address] [place] [address] [place] [facility] Iron and Iron binding capaci ty panelon 08-30-2022 Iron [Mass/Vol] 100 ug/dL Normal 41-186 [facility] Comment on above: Order Comment: Speci men Type: BLOOD SPECIMEN Ordering Facility: [facility] Address: [address] [place] [address] Performed By: #### 5 0190-8, 2132-06, 2276-01 #### [facility] CLIA [id number] [address] [place] [address] [place] Iron binding capacity [Mass/Vol] 287 ug/dL Normal 232-386 [facility] Comment on above: Order Comment: Speci men Type: BLOOD SPECIMEN Ordering Facility: [facility] Address: [address] [place] [address] Performed By: #### 5 0190-8, 2132-06, 2276-01 #### [facility] CLIA [id number] [address] [place] [address] [place] Iron/TIBC [Molar ratio] 34.8 % Normal 15.0-57.0 [facility] Comment on above: Order Comment: Speci men Type: BLOOD SPECIMEN Ordering Facility: [facility] Address: [address] [place] [address] Performed By: #### 5 0190-8, 2132-06, 2276-01 #### [facility] CLIA [id number] [address] [place] [address] [place] LD LACTATE DEHYDROon 022 LDH [Catalytic activity/Vol] 180 U/L 135 - 225 U/L [facility] LDH SerPl-cCncon 08-30-2022 LDH [Catalytic activity/Vol] 180 U/L Normal 135-225 [facility] Comment on above: Order Comment: Speci men Type: BLOOD SPECIMEN Ordering Facility: [facility] Address: [address] [place], [place] [address] Performed By: #### 2 532-0, 38984-0 #### [facility] CLIA [id number] [address] [place] [address] Vit B12 SerPl-mCncon 022 Cobalamin (Vitamin B12) [Mass/Vol] 468 pg/mL Normal 232-1245 [facility] Comment on above: Order Comment: Speci men Type: BLOOD SPECIMEN Ordering Facility: [facility] Address: [address] [place], [place] [address] Performed By: #### 5 0190-8, 2132-9, 2276-4 #### [facility] CLIA [id number] [address] [place] [address] [place] CULTURE BLOODon 05-08-2022 Microscopic [...] F Oxacillin <=0.25 S F Normal [facility] Comment on above: Performed By: #### P OCGLUC #### [facility] [address] [place] [address] Dr. Kelly Mukherjee BLOOD CULTURE ID PANELon A. baumannii Not detected Normal NOT DETECTED [facility] Comment on above: Performed By: #### B CID2 #### [facility] [address] [place] [address] Dr. Kelly Mukherjee Bacteriodes fragilis Not detected Normal NOT DETECTED [facility] Comment on above: Performed By: #### B CID2 #### [facility] [address] [place] [address] Dr. Kelly Mukherjee BCID CONTROLS PASSED Normal [facility] Comment on above: Performed By: #### B CID2 #### [facility] [address] [place] [address] Dr. Kelly Mukherjee BCIDBTHD BLOOD CULTURE BOTTLE INFORMATION Normal [facility] Comment on above: Performed By: #### B CID2 #### [facility] [address] [place] [address] Dr. Kelly Mukherjee BCIDHD1 ANTIMICROBIAL RESISTANCE GENES Normal [facility] Comment on above: Performed By: #### B CID2 #### [facility] [address] [place] [address] Dr. Kelly Mukherjee BCIDHD2 SEE BELOW Normal [facility] Comment on above: Result Comment: Note : Antimicrobial resitance can occur via multiple mechanisms. A Not Detected result for the [employer] antomicrobial resistance gene assays does not indicate antimicrobial susceptibility. Subculturing is required for species identification and susceptibility testing of isolates. Performed By: #### B CID2 #### [facility] [address] [place] [address] Dr. Kelly Mukherjee BCIDHD3 Positive [facility] Comment on above: Performed By: #### B CID2 #### [facility] [address] [place] [address] Dr. Kelly Mukherjee BCIDHD4 Negative Normal [facility] Comment on above: Performed By: #### B CID2 #### [facility] [address] [place] [address] Dr. Kelly Mukherjee BCIDHD5 YEAST Normal [facility] Comment on above: Performed By: #### B CID2 #### [facility] [address] [place] [address] Dr. Kelly Mukherjee Bottle Set: Set 2 [facility] Comment on above: Performed By: #### B CID2 #### [facility] [address] [place] [address] Dr. Kelly Mukherjee Bottle: Aerobic Normal [facility] Comment on above: Performed By: #### B CID2 #### [facility] [address] [place] [address] Dr. Kelly Mukherjee C. neoformans/gattii Not detected Normal NOT DETECTED [facility] Comment on above: Performed By: #### B CID2 #### [facility] [address] [place] [address] Dr. Kelly Mukherjee Morenita albicans Not detected Normal NOT DETECTED [facility] Comment on above: Performed By: #### B CID2 #### [facility] [address] [address] [address] Kelly Mukherjee Morenita auris Not detected Normal NOT DETECTED [facility] Comment on above: Performed By: #### B CID2 #### [facility] [address] [address] [address] Kelly Mukherjee Morenita glabrata Not detected Normal NOT DETECTED [facility] Comment on above: Performed By: #### B CID2 #### [facility] [address] [place] [address] Dr. Kelly Mukherjee Morenita Krusei Not detected Normal NOT DETECTED [facility] Comment on above: Performed By: #### B CID2 #### [facility] [address] [place] [address] Dr. Kelly Mukherjee Morenita Parapsilosis Not detected Normal NOT DETECTED [facility] Comment on above: Performed By: #### B CID2 #### [facility] [address] [place] [address] Dr. Kelly Mukherjee Morenita Tropicalis Not detected Normal NOT DETECTED [facility] Comment on above: Performed By: #### B CID2 #### [facility] [address] [place] [address] Dr. Kelly Mukherjee CTX-M Resistant Gene Not Applicable Normal NOT DETECTE D [facility] Comment on above: Performed By: #### B CID2 #### [facility] [address] [place] [address] Dr. Kelly Mukherjee E. Cloacae complex Not detected Normal NOT DETECTED [facility] Comment on above: Performed By: #### B CID2 #### [facility] [address] [place] [address] Dr. Kelly Mukherjee E. faecalis Not detected Normal NOT DETECTED [facility] Comment on above: Performed By: #### B CID2 #### [facility] [address] [place] [address] Dr. Kelly Mukherjee E. faecium Not detected Normal NOT DETECTED [facility] Comment on above: Performed By: #### B CID2 #### [facility] [address] [place] [address] Dr. Kelly Mukherjee Enterobacteriaceae Not detected Normal NOT DETECTED [facility] Comment on above: Performed By: #### B CID2 #### [facility] [address] [place] [address] Dr. Kelly Mukherjee Escherichia coli Not detected Normal NOT DETECTED [facility] Comment on above: Performed By: #### B CID2 #### [facility] [address] [place] [address] Dr. Kelly Mukherjee H. influenzae Not detected Normal NOT DETECTED [facility] Comment on above: Performed By: #### B CID2 #### [facility] [address] [place] [address] Dr. Kelly Mukherjee IMP Resistant Gene Not Applicable Normal NOT DETECTED [facility] Comment on above: Performed By: #### B CID2 #### [facility] [address] [place] [address] Dr. Kelly Mukherjee K. oxytoca Not detected Normal NOT DETECTED [facility] Comment on above: Performed By: #### B CID2 #### [facility] [address] [place] [address] Dr. Kelly Mukherjee K. pneumoniae Not detected Normal NOT DETECTED [facility] Comment on above: Performed By: #### B CID2 #### [facility] [address] [place] [address] Dr. Kelly Mukherjee Klebsiella aerogenes Not detected Normal NOT DETECTED [facility] Comment on above: Performed By: #### B CID2 #### [facility] [address] [place] [address] Dr. Kelly Mukherjee KPC Resistant Gene Not Applicable Normal NOT DETECTED [facility] Comment on above: Performed By: #### B CID2 #### [facility] [address] [place] [address] Dr. Kelly Mukherjee List. monocytogenes Not detected Normal NOT DETECTED [facility] Comment on above: Performed By: #### B CID2 #### [facility] [address] [place] [address] Dr. Kelly Mukherjee Mcr-1 Resistant Gene Not Applicable Normal NOT DETECTE D [facility] Comment on above: Performed By: #### B CID2 #### [facility] [address] [place] [address] Dr. Kelly Mukherjee mecA/C Not Applicable Normal NOT DETECTED [facility] Comment on above: Performed By: #### B CID2 #### [facility] [address] [place] [address] Dr. Kelly Mukherjee mecA/C MREJ Not Applicable Normal NOT DETECTED [facility] Comment on above: Performed By: #### B CID2 #### [facility] [address] [place] [address] Dr. Kelly Mukherjee N. meningitidis Not detected Normal NOT DETECTED [facility] Comment on above: Performed By: #### B CID2 #### [facility] [address] [place] [address] Dr. Kelly Mukherjee NDM Resistant Gene Not Applicable Normal NOT DETECTED [facility] Comment on above: Performed By: #### B CID2 #### [facility] [address] [place] [address] Dr. Kelly Mukherjee Oxa-48-like Not Applicable Normal NOT DETECTED [facility] Comment on above: Performed By: #### B CID2 #### [facility] [address] [place] [address] Dr. Kelly Mukherjee Proteus Not detected Normal NOT DETECTED [facility] Comment on above: Performed By: #### B CID2 #### [facility] [address] [place] [address] Dr. Kelly Mukherjee Pseud. aeruginosa Not detected Normal NOT DETECTED [facility] Comment on above: Performed By: #### B CID2 #### [facility] [address] [place] [address] Dr. Kelly Mukherjee S. maltophilia Not detected Normal NOT DETECTED [facility] Comment on above: Performed By: #### B CID2 #### [facility] [address] [place] [address] Dr. Kelly Mukherjee Salmonella Not detected Normal NOT DETECTED [facility] Comment on above: Performed By: #### B CID2 #### [facility] [address] [place] [address] Dr. Kelly Mukherjee Seratia marcescens Not detected Normal NOT DETECTED [facility] Comment on above: Performed By: #### B CID2 #### [facility] [address] [place] [address] Dr. Kelly Mukherjee Site: Lt Hand Normal [facility] Comment on above: Performed By: #### B CID2 #### [facility] [address] [address] [address] Kelly Mukherjee Staph. aureus Not detected Normal NOT DETECTED [facility] Comment on above: Performed By: #### B CID2 #### [facility] [address] [place] [address] Dr. Kelly Mukherjee Staph. epidermidis Not detected Normal NOT DETECTED [facility] Comment on above: Performed By: #### B CID2 #### [facility] [address] [place] [address] Dr. Kelly Mukherjee Staph. lugdunensis Not detected Normal NOT DETECTED [facility] Comment on above: Performed By: #### B CID2 #### [facility] [address] [place] [address] Dr. Kelly Mukherjee Staphylococcus Detected Abnormal NOT DETECTED [facility] Comment on above: Performed By: #### B CID2 #### [facility] [address] [place] [address] Dr. Kelly Mukherjee Strep. agalactiae Not detected Normal NOT DETECTED [facility] Comment on above: Performed By: #### B CID2 #### [facility] [address] [place] [address] Dr. Kelly Mukherjee Strep. pneumoniae Not detected Normal NOT DETECTED [facility] Comment on above: Performed By: #### B CID2 #### [facility] [address] [place] [address] Dr. Kelly Mukherjee Strep. pyogenes Not detected Normal NOT DETECTED [facility] Comment on above: Performed By: #### B CID2 #### [facility] [address] [place] [address] Dr. Kelly Mukherjee Streptococcus Not detected Normal NOT DETECTED [facility] Comment on above: Performed By: #### B CID2 #### [facility] [address] [place] [address] Dr. Kelly Schneider/Suraj Resist. Gene Not Applicable Normal NOT DETECTED [facility] Comment on above: Performed By: #### B CID2 #### [facility] [address] [place] [address] Dr. Kelly Mukherjee VIM Resistant Gene Not Applicable Normal NOT DETECTED [facility] Comment on above: Performed By: #### B CID2 #### [facility] [address] [place] [address] Dr. Kelly Mukherjee CBC AUTO DIFFon 05-03-2022 BASO # 0.0 103/ul Normal 0.0-0.1 [facility] Comment on above: Performed By: #### C BC #### [facility] [address] [place] [address] Dr. Kelly Mukherjee Basophils/100 WBC (Bld) 0.0 % Critically low 0.2-2.0 [facility] Comment on above: Performed By: #### C BC #### [facility] [address] [place] [address] Dr. Kelly Mukherjee EO # 0.0 103/ul Normal 0.0-0.7 [facility] Comment on above: Performed By: #### C BC #### [facility] [address] [place] [address] Dr. Kelly Mukherjee Eosinophils/100 WBC (Bld) 0.0 % Critically low 0.9-7. 0 [facility] Comment on above: Performed By: #### C BC #### [facility] [address] [place] [address] Dr. Kelly Mukherjee Erythrocyte distribution width (RBC) [Ratio] 15.5 % Critically high 11.0-15.0 [facility] Comment on above: Performed By: #### C BC #### [facility] [address] [place] [address] Dr. Kelly Mukherjee Hematocrit (Bld) [Volume fraction] 25.3 % Critically low 42.0-54.0 [facility] Comment on above: Performed By: #### C BC #### [facility] [address] [address] [address] Kelly Mukherjee Hemoglobin (Bld) [Mass/Vol] 8.8 g/dL Critically low 14.0-18.0 [facility] Comment on above: Performed By: #### C BC #### [facility] [address] [address] [address] Kelly Mukherjee IG # 0.00 10e3/ul Normal 0.00-0.03 [facility] Comment on above: Performed By: #### C BC #### [facility] [address] [place] [address] Dr. Kelly Mukherjee IG % 0.0 % Normal 0.0-0.5 [facility] Comment on above: Performed By: #### C BC #### [facility] [address] [place] [address] Dr. Kelly Mukherjee LYMPH # 0.2 103/ul Critically low 1.2-3.8 [facility] Comment on above: Performed By: #### C BC #### [facility] [address] [place] [address] Dr. Kelly Mukherjee Lymphocytes/100 WBC (Bld) 11.5 % Critically low 20.5-6 0.0 [facility] Comment on above: Performed By: #### C BC #### [facility] [address] [place] [address] Dr. Kelly Mukherjee MANUAL DIFF REQ NO Normal [facility] Comment on above: Performed By: #### C BC #### [facility] [address] [place] [address] Dr. Kelly Mukherjee MCH (RBC) [Entitic mass] 34.1 pg Critically high 25.9-3 4.0 [facility] Comment on above: Performed By: #### C BC #### [facility] [address] [place] [address] Dr. Kelly Mukherjee MCHC (RBC) [Mass/Vol] 34.8 g/dL Normal 29.9-35.2 [facility] Comment on above: Performed By: #### C BC #### [facility] [address] [address] [address] Kelly Mukherjee MCV (RBC) [Entitic vol] 98.1 fL Critically high 80.0-94 .0 [facility] Comment on above: Performed By: #### C BC #### [facility] [address] [address] [address] Kelly Mukherjee MONO # 0.2 103/ul Critically low 0.3-0.8 [facility] Comment on above: Performed By: #### C BC #### [facility] [address] [address] [address] Kelly Mukherjee Monocytes/100 WBC (Bld) 14.5 % Critically high 1.7-12. 0 [facility] Comment on above: Performed By: #### C BC #### [facility] [address] [address] [address] Kelly Mukherjee NEUT # 1.2 103/ul Critically low 1.4-6.5 [facility] Comment on above: Performed By: #### C BC #### [facility] [address] [address] [address] Kelly Mukherjee Neutrophils/100 WBC (Bld) 74.0 % Normal 43.0-75.0 [facility] Comment on above: Performed By: #### C BC #### [facility] [address] [address] [address] Kelly Mukherjee Platelet mean volume (Bld) [Entitic vol] 10.3 fL Normal 9.5-13.5 [facility] Comment on above: Performed By: #### C BC #### [facility] [address] [address] [address] Kelly Mukherjee PLT 59 103/ul Critically low 150-450 [facility] Comment on above: Performed By: #### C BC #### [facility] [address] [address] [address] Kelly Mukherjee RBC 2.58 106/ul Critically low 4.70-6.10 [facility] Comment on above: Performed By: #### C BC #### [facility] [address] [place] [address] Dr. Kelly Mukherjee WBC 1.7 103/ul Critically low 4.0-11.0 [facility] Comment on above: Performed By: #### C BC #### [facility] [address] [place] [address] Dr. Kelly Mukherjee CBC W MANUAL DIFFon 05-03-20 22 ATYPICAL LYMPH # Normal [facility] Comment on above: Performed By: #### C VDTBH #### [facility] [address] [place] [address] Dr. Kelly Mukherjee ATYPICAL LYMPH % Normal [facility] Comment on above: Performed By: #### C VDTBH #### [facility] [address] [place] [address] Dr. Kelly Mukherjee BAND # 0.0 103/ul Normal 0.0-0.3 [facility] Comment on above: Performed By: #### C VDTBH #### [facility] [address] [place] [address] Dr. Kelly Mukherjee BAND % 1 % Normal 0-5 [facility] Comment on above: Performed By: #### C VDTBH #### [facility] [address] [place] [address] Dr. Kelly Mukherjee BASOM # 0.00 103/ul Normal 0.00-0.10 [facility] Comment on above: Performed By: #### C VDTBH #### [facility] [address] [place] [address] Dr. Kelly Mukherjee BASOM % 0.0 % Critically low 0.2-2.[address] [facility] Comment on above: Performed By: #### C VDTBH #### [facility] [address] [place] [address] Dr. Kelly Mukherjee BLAST # Normal [facility] Comment on above: Performed By: #### C VDTBH #### [facility] [address] [place] [address] Dr. Kelly Mukherjee BLAST % Normal [facility] Comment on above: Performed By: #### C VDTBH #### [facility] [address] [address] [address] Kelly Mukherjee CORRECTED WBC Normal 4.0-11.0 [facility] Comment on above: Performed By: #### C VDTBH #### [facility] [address] [address] [address] Kelly Mukherjee EOS # 0.00 103/ul Normal 0.00-0.70 [facility] Comment on above: Performed By: #### C VDTBH #### [facility] [address] [address] [address] Kelly Mukherjee EOS% 0.0 % Critically low 0.9-7.0 [facility] Comment on above: Performed By: #### C VDTBH #### [facility] [address] [place] [address] Dr. Kelly Mukherjee HCT 26.7 % Critically low 42.0-54.0 [facility] Comment on above: Performed By: #### C VDTBH #### [facility] [address] [address] [address] Kelly Mukherjee HGB 9.3 g/dl Critically low 14.0-18.0 [facility] Comment on above: Performed By: #### C VDTBH #### [facility] [address] [address] [address] Kelly Mukherjee LYMPHM # 0.21 103/ul Critically low 1.20-3.80 [facility] Comment on above: Performed By: #### C VDTBH #### [facility] [address] [address] [address] Kelly Mukherjee LYMPHM% 13.0 % Critically low 20.5-60.[address] [facility] Comment on above: Performed By: #### C VDTBH #### [facility] [address] [address] [address] Kelly Mukherjee MCH 33.9 pg Normal 25.9-34.0 [facility] Comment on above: Performed By: #### C VDTBH #### [facility] [address] [place] [address] Dr. Kelly Mukherjee MCHC 34.8 g/dl Normal 29.9-35.2 [facility] Comment on above: Performed By: #### C VDTBH #### [facility] [address] [place] [address] Dr. Kelly Mukherjee MCV 97.4 fL Critically high 80.0-94.0 [facility] Comment on above: Performed By: #### C VDTBH #### [facility] [address] [place] [address] Dr. Kelly Mukherjee METAMYELOCYTE # Normal [facility] Comment on above: Performed By: #### C VDTBH #### [facility] [address] [place] [address] Dr. Kelly Mukherjee METAMYELOCYTE % Normal [facility] Comment on above: Performed By: #### C VDTBH #### [facility] [address] [place] [address] Dr. Kelly Mukherjee MONOM# 0.16 103/ul Critically low 0.30-0.80 [facility] Comment on above: Performed By: #### C VDTBH #### [facility] [address] [place] [address] Dr. Kelly Mukherjee MONOM% 10.0 % Normal 1.7-12.0 [facility] Comment on above: Performed By: #### C VDTBH #### [facility] [address] [place] [address] Dr. Kelly Mukherjee MPV 9.9 fL Normal 9.5-13.5 [facility] Comment on above: Performed By: #### C VDTBH #### [facility] [address] [place] [address] Dr. Kelly Mukherjee MYELOCYTE # Normal [facility] Comment on above: Performed By: #### C VDTBH #### [facility] [address] [place] [address] Dr. Kelly Mukherjee MYELOCYTE % Normal [facility] Comment on above: Performed By: #### C VDTBH #### [facility] [address] [address] [address] Kelly Mukherjee NRBC Normal [facility] Comment on above: Performed By: #### C VDTBH #### [facility] [address] [place] [address] Dr. Kelly Mukherjee PLT 61 103/ul Critically low 150-450 [facility] Comment on above: Performed By: #### C VDTBH #### [facility] [address] [address] [address] Kelly Mukherjee RBC 2.74 106/ul Critically low 4.70-6.10 [facility] Comment on above: Performed By: #### C VDTBH #### [facility] [address] [place] [address] Dr. Kelly Mukherjee RDW 15.6 % Critically high 11.0-15.0 [facility] Comment on above: Performed By: #### C VDTBH #### [facility] [address] [place] [address] Dr. Kelly Mukherjee SEG # 1.22 103/ul Critically low 1.40-6.50 [facility] Comment on above: Performed By: #### C VDTBH #### [facility] [address] [place] [address] Dr. Kelly Mukherjee SEG % 76.0 % Critically high 43.0-75.0 [facility] Comment on above: Performed By: #### C VDTBH #### [facility] [address] [place] [address] Dr. Kelly Mukherjee WBC 1.6 103/ul Critically low 4.0-11.0 [facility] Comment on above: Performed By: #### C VDTBH #### [facility] [address] [place] [address] HEAD WO CONon [...] by: KIA JENNINGS Date: 2022-05-03 00:00 Normal [facility] CULTURE BLOODon 05-03-2022 Microscopic examination of blood, culture Culture Observations: NO GROWTH AT [address] [facility] Comment on above: Performed By: #### P OCGLUC #### [facility] [address] [place] [address] Dr. Kelly Mukherjee CULTURE URINEon 05-03-2022 CULTURE URINE Culture Observations: HEAVY GROWTH OF MIXED SKIN TERE. NO POTENTIAL PATHOGENS SEEN. Normal [facility] Comment on above: Performed By: #### P OCGLUC #### [facility] [address] [address] [address] Kelly Mukherjee Covid-19 PCR (CVDTB)on 04-08 SARS-CoV-2 (COVID-19) RNA ABIMBOLA+probe Ql (Unsp spec) Detected Critically abnormal NOT DETECTED [facility] Comment on above: Result Comment: This test is not yet approved or cleared by the [place] FDA. When there are no FDA-approved or cleared tests available, and other criteria are met, FDA can make tests available under an emergency access mechanism called an Emergency Use Authorization (EUA). The EUA for this test is supported by the [place] of [employer] and Human Service's declaration that [...] used). Performed By: #### C VDTBH #### [facility] [address] [place] [address] Dr. Kelly ALLEN URINE PROFILEon 2 Bilirubin Ql (U) Negative Normal NEGATIVE [facility] Comment on above: Performed By: #### CAITY CABRALRO #### [facility] [address] [place] [address] Dr. Kelly Mukherjee Clarity (U) CLEAR Normal CLEAR [facility] Comment on above: Performed By: #### RACHELL CABRALICRO #### [facility] [address] [place] [address] Dr. Kelly Mukherjee Color (U) YELLOW Normal YELLOW [facility] Comment on above: Performed By: #### CAITY CABRALRO #### [facility] [address] [place] [address] Dr. Kelly CARTER A micrscopic examination will be performed if indicated. Normal [facility] Comment on above: Performed By: #### RACHELL CABRALICRO #### [facility] [address] [place] [address] Dr. Kelly Mukherjee Glucose Ql (U) 100 mg/dl Abnormal NEGATIVE [facility] Comment on above: Performed By: #### CAITY CABRALRO #### [facility] [address] [place] [address] Dr. Kelly Mukherjee Hemoglobin Ql (U) TRACE-INTACT Abnormal NEGATIVE [facility] Comment on above: Performed By: #### RACHELL CABRALICRO #### [facility] [address] [place] [address] Dr. Kelly Mukherjee Ketones Ql (U) Negative Normal NEGATIVE [facility] Comment on above: Performed By: #### RACHELL CABRALICRO #### [facility] [address] [place] [address] Dr. Kelly Mukherjee LEUKOCYTES Negative Normal NEGATIVE [facility] Comment on above: Performed By: #### Javy VAZQUEZ UMICRO #### [facility] [address] [place] [address] Dr. Kelly Mukherjee Nitrite Ql (U) Positive Abnormal NEGATIVE [facility] Comment on above: Performed By: #### RACHELL CABRALICRO #### [facility] [address] [place] [address] Dr. Kelly Mukherjee pH (U) 5.5 [pH] Normal 5-9 [facility] Comment on above: Performed By: #### Javy VAZQUEZ UMICRO #### [facility] [address] [place] [address] Dr. Kelly Mukherjee Protein (U) [Mass/Vol] 100 mg/dL Abnormal NEGAT NADER/ TRACE [facility] Comment on above: Performed By: #### Javy VAZQUEZ UMICRO #### [facility] [address] [place] [address] Dr. Kelly Mukherjee SPEC GRAVITY 1.025 Normal 1.005-<=1.[address] [place] [address] Comment on above: Performed By: #### Javy VAZQUEZ UMICRO #### [facility] [address] [place] [address] Dr. Kelly Mukherjee UR MICRO IND INDICATED Normal [facility] Comment on above: Performed By: #### Javy VAZQUEZ UMICRO #### [facility] [address] [place] [address] Dr. Kelly Mukherjee Urobilinogen Qn (U) 0.2 {Jun'U}/dL Normal 0.2 - 1. 0 [facility] Comment on above: Performed By: #### Javy VAZQUEZ UMICRO #### [facility] [address] [place] [address] Dr. Kelly Mukherjee LACTATE/LACTIC ACIDon 2021 Lactate [Moles/Vol] 1.0 mmol/L Normal 0.4-1.9 [facility] Comment on above: Performed By: #### B MP #### [facility] [address] [place] [address] Dr. Kelly Mukherjee PROF 14(COMP METB)on 022 Albumin [Mass/Vol] 3.6 g/dL Normal 3.4-5.0 [facility] Comment on above: Performed By: #### B MP #### [facility] [address] [place] [address] Dr. Kelly Mukherjee Albumin/Globulin [Mass ratio] 1.3 {ratio} Normal [facility] Comment on above: Performed By: #### B MP #### [facility] [address] [place] [address] Dr. Kelly Mukherjee ALP [Catalytic activity/Vol] 95 U/L Normal 46-116 [facility] Comment on above: Performed By: #### B MP #### [facility] [address] [place] [address] Dr. Kelly Mukherjee ALT [Catalytic activity/Vol] 53 U/L Normal 16-63 [facility] Comment on above: Performed By: #### B MP #### [facility] [address] [place] [address] Dr. Kelly Mukherjee Anion gap [Moles/Vol] 8.7 mmol/L Normal [facility] Comment on above: Performed By: #### B MP #### [facility] [address] [place] [address] Dr. Kelly Mukherjee AST [Catalytic activity/Vol] 31 U/L Normal 15-37 [facility] Comment on above: Performed By: #### B MP #### [facility] [address] [place] [address] Dr. Kelly Mukherjee Bilirubin [Mass/Vol] 0.4 mg/dL Normal 0.2-1.0 [facility] Comment on above: Performed By: #### B MP #### [facility] [address] [place] [address] Dr. Kelly Mukherjee Calcium [Mass/Vol] 8.5 mg/dL Normal 8.5-10.1 [facility] Comment on above: Performed By: #### B MP #### [facility] [address] [place] [address] Dr. Kelly Mukherjee Chloride [Moles/Vol] 106 mmol/L Normal 98-107 [facility] Comment on above: Performed By: #### B MP #### [facility] [address] [place] [address] Dr. Kelly Mukherjee CO2 [Moles/Vol] 29.1 mmol/L Normal 21.0-32.0 [facility] Comment on above: Performed By: #### B MP #### [facility] [address] [address] [address] Kelly Mukherjee Creatinine [Mass/Vol] 1.07 mg/dL Normal 0.70-1.30 [facility] Comment on above: Performed By: #### B MP #### [facility] [address] [address] [address] Kelly Mukherjee EGFR-AF BAHRAINI >60 Normal >=60 [facility] Comment on above: Performed By: #### B MP #### [facility] [address] [address] [address] Kelly Mukherjee EGFR-NON AF BAHRAINI >60 Normal >=60 [facility] Comment on above: Performed By: #### B MP #### [facility] [address] [place] [address] Dr. Kelly Mukherjee Globulin (S) [Mass/Vol] 2.8 g/dL Normal [facility] Comment on above: Performed By: #### B MP #### [facility] [address] [address] [address] Kelly Mukherjee Glucose [Mass/Vol] 208 mg/dL Critically high 74-106 [facility] Comment on above: Performed By: #### B MP #### [facility] [address] [place] [address] Dr. Kelly Mukherjee Potassium [Moles/Vol] 3.8 mmol/L Normal 3.5-5.[address] [facility] Comment on above: Performed By: #### B MP #### [facility] [address] [place] [address] Dr. Kelly Mukherjee Protein [Mass/Vol] 6.4 g/dL Normal 6.4-8.2 [facility] Comment on above: Performed By: #### B MP #### [facility] [address] [address] [address] Kelly Mukherjee Sodium [Moles/Vol] 140 mmol/L Normal 136-145 [facility] Comment on above: Performed By: #### B MP #### [facility] [address] [address] [address] Kelly Mukherjee Urea nitrogen [Mass/Vol] 23.0 mg/dL Critically high 7.0-18 .0 [facility] Comment on above: Performed By: #### B MP #### [facility] [address] [address] [address] Kelly Mukherjee Urea nitrogen/Creatinine [Mass ratio] 21.5 mg/mg Normal [facility] Comment on above: Performed By: #### B MP #### [facility] [address] [address] [address] Kelly Mukherjee PROF CHEM 8 (BAS METB)on Anion gap [Moles/Vol] 10.1 mmol/L Normal [facility] Comment on above: Performed By: #### B MP #### [facility] [address] [place] [address] Dr. Kelly Mukherjee Calcium [Mass/Vol] 8.2 mg/dL Critically low 8.5-10.1 [facility] Comment on above: Performed By: #### B MP #### [facility] [address] [place] [address] Dr. Kelly Mukherjee Chloride [Moles/Vol] 107 mmol/L Normal 98-107 [facility] Comment on above: Performed By: #### B MP #### [facility] [address] [place] [address] Dr. Kelly Mukherjee CO2 [Moles/Vol] 27.6 mmol/L Normal 21.0-32.0 [facility] Comment on above: Performed By: #### B MP #### [facility] [address] [address] [address] Kelly Mukherjee Creatinine [Mass/Vol] 0.93 mg/dL Normal 0.70-1.30 [facility] Comment on above: Performed By: #### B MP #### [facility] [address] [place] [address] Dr. Kelly Mukherjee EGFR-AF BAHRAINI >60 Normal >=60 [facility] Comment on above: Performed By: #### B MP #### [facility] [address] [place] [address] Dr. Kelly Mukherjee EGFR-NON AF BAHRAINI >60 Normal >=60 [facility] Comment on above: Performed By: #### B MP #### [facility] [address] [address] [address] Kelly Mukherjee Glucose [Mass/Vol] 153 mg/dL Critically high 74-106 [facility] Comment on above: Performed By: #### B MP #### [facility] [address] [place] [address] Dr. Kelly Mukherjee Potassium [Moles/Vol] 3.7 mmol/L Normal 3.5-5.1 [facility] Comment on above: Performed By: #### B MP #### [facility] [address] [place] [address] Dr. Kelly Mukherjee Sodium [Moles/Vol] 141 mmol/L Normal 136-145 [facility] Comment on above: Performed By: #### B MP #### [facility] [address] [place] [address] Dr. Kelly Mukherjee Urea nitrogen [Mass/Vol] 17.0 mg/dL Normal 7.0-18.0 [facility] Comment on above: Performed By: #### B MP #### [facility] [address] [place] [address] Dr. Kelly Mukherjee Urea nitrogen/Creatinine [Mass ratio] 18.3 mg/mg Normal [facility] Comment on above: Performed By: #### B MP #### [facility] [address] [place] [address] Dr. Kelly Mukherjee URINE MICROSCOPIC ONLYon BACTERIA MODERATE Abnormal NONE SEEN [facility] Comment on above: Performed By: #### MARIKA CABRAL #### [facility] [address] [place] [address] Dr. Kelly Mukherjee Bacteria identified Cx Nom (U) INDICATED Normal [facility] Comment on above: Performed By: #### MARIKA CABRAL #### [facility] [address] [place] [address] Dr. Kelly Mukherjee CAST NONE SEEN Normal NONE SEEN [facility] Comment on above: Performed By: #### E RUR, UMICRO #### [facility] [address] [place] [address] Dr. Kelly Mukherjee Crystals LM Nom (Urine sed) NONE SEEN Normal NONE SEEN [facility] Comment on above: Performed By: #### E RUR, UMICRO #### [facility] [address] [place] [address] Dr. Kelly Mukherjee Epithelial cells LM Ql (Urine sed) NONE SEEN Normal NONE SEEN /RARE [facility] Comment on above: Performed By: #### E RUR, UMICRO #### [facility] [address] [place] [address] Dr. Kelly Mukherjee MUCOUS NONE SEEN Normal NONE SEEN [facility] Comment on above: Performed By: #### E RUR, UMICRO #### [facility] [address] [place] [address] Dr. Kelly Mukherjee RBC NONE SEEN Abnormal 0-[address] [facility] Comment on above: Performed By: #### E RUR, UMICRO #### [facility] [address] [place] [address] Dr. Kelly Mukherjee WBC 2-5 Abnormal NONE SEEN [facility] Comment on above: Performed By: #### E RUR, UMICRO #### [facility] [address] [place] [address] Dr. Kelly Mukherjee XR CHEST 1 Von [...] KIA JENNINGS Date: 2022-05-03 00:[address] [facility] MRI BRAIN WO CONon 2 MRI [...] by: SHAKA BLANCO Date: 2022-04-19 20:11 Normal [facility] ECHOCARDIO M/2D COMPLETEon 0 03-27-2022 ECHOCARDIO M/2D COMPLETE Patient: BRIAN GOULD Exam Date: 03/27/2022 : 1945 Gender:M Ordering : DR JUAN A COX D.O. Admission #: [id number] Family : Order #: [id number] CLICK HERE TO VIEW EXAM ECHOCARDIOGRAM REPORT [...] Area(A4C): 20.80 cm2 Left Atrium Systolic Volume(A2C): 22456 mm3 Left Atrium Systolic Volume(A4C): 63863 mm3 Mitral Valve MV E to A Ratio: 1.30 Deceleration Coal: 3680 mm/s2 Mitral Valve A-Wave Peak Velocity: 65.60 cm/s Mitral Valve E-Wave Peak Velocity: 84.40 cm/s Right Ventricle RV Internal Diastolic Dimension: 3.10 cm Aorta AO Root Diam: 3.30 cm Aortic Valve AoV Area (Peak Alban): 2.40 cm2 Deceleration Coal: 541 mm/s2 Pressure Half-Time: 1.59 s Peak [...] Walden M.D. on 03/29/2022 at 19:07 Normal [facility] NM STRESS/REST MULTIon 03-09 NM STRESS/REST MULTI Patient: BRIAN GOULD Exam Date: 03/09/2022 : 1945 Gender:M Ordering : DR JUAN A COX D.O. Admission #: [id number] Family : Order #: [id number] CLICK HERE TO VIEW EXAM RADIOLOGY REPORT [...] Olson M.D. on 03/10/2022 at 09:38 Normal [facility] BNPon 02-15-2022 Natriuretic peptide B (Bld) [Mass/Vol] 400.0 pg/mL Normal <=1,800.0 [facility] Comment on above: Performed By: #### B MP #### [facility] [address] [place] [address] Dr. Kelly Mukherjee CARDIAC BARRON ADMITon 022 CK [Catalytic activity/Vol] 22 U/L Critically low 39-308 [facility] Comment on above: Performed By: #### B MP #### [facility] [address] [place] [address] Dr. Kelly Mukherjee CK.MB [Mass/Vol] ng/mL Normal <=3.60 [facility] Comment on above: Performed By: #### B MP #### [facility] [address] [place] [address] Dr. Kelly Mukherjee HSTROP 6.8 pg/mL Normal 4.0-76.1 [facility] Comment on above: Result Comment: CUT- OFF POINTS HAVE BEEN ESTABLISHED BASED ON THE FOURTH UNIVERSAL DEFINITIONS OF MYOCARDIAL INFARCTION. THE UPPER REFERENCE LIMIT (URL) OF TROPONIN, DEFINED THE 99TH PERCENTILE OF cTnI DISTRIBUTION IN A REFERENCE POPULATION, HAS BEEN CONFIRMED THE DECISION THRESHOLD FOR [place] DIAGNOSIS. Performed By: #### B MP #### [facility] [address] [place] [address] Dr. Kelly Mukherjee DEBBIE 39 ng/mL Normal 16-96 [facility] Comment on above: Performed By: #### B MP #### [facility] [address] [place] [address] Dr. Kelly Mukherjee CBC AUTO DIFFon 02-15-2022 BASO # 0.0 103/ul Normal 0.0-0.1 [facility] Comment on above: Performed By: #### B MP #### [facility] [address] [place] [address] Dr. Kelly Mukherjee Basophils/100 WBC (Bld) 0.3 % Normal 0.2-2.0 [facility] Comment on above: Performed By: #### B MP #### [facility] [address] [place] [address] Dr. Kelly Mukherjee EO # 0.1 103/ul Normal 0.0-0.7 [facility] Comment on above: Performed By: #### B MP #### [facility] [address] [place] [address] Dr. Kelly Mukherjee Eosinophils/100 WBC (Bld) 2.0 % Normal 0.9-7.0 [facility] Comment on above: Performed By: #### B MP #### [facility] [address] [place] [address] Dr. Kelly Mukherjee Erythrocyte distribution width (RBC) [Ratio] 15.4 % Critically high 11.0-15.0 [facility] Comment on above: Performed By: #### B MP #### [facility] [address] [place] [address] Dr. Kelly Mukherjee Hematocrit (Bld) [Volume fraction] 31.9 % Critically low 42.0-54.0 [facility] Comment on above: Performed By: #### B MP #### [facility] [address] [place] [address] Dr. Kelly Mukherjee Hemoglobin (Bld) [Mass/Vol] 10.7 g/dL Critically low 14.0-18.0 [facility] Comment on above: Performed By: #### B MP #### [facility] [address] [place] [address] Dr. Kelly Mukherjee IG # 0.01 10e3/ul Normal 0.00-0.03 [facility] Comment on above: Performed By: #### B MP #### [facility] [address] [place] [address] Dr. Kelly Mukherjee IG % 0.3 % Normal 0.0-0.5 [facility] Comment on above: Performed By: #### B MP #### [facility] [address] [place] [address] Dr. Kelly Mukherjee LYMPH # 0.6 103/ul Critically low 1.2-3.8 [facility] Comment on above: Performed By: #### B MP #### [facility] [address] [place] [address] Dr. Kelly Mukherjee Lymphocytes/100 WBC (Bld) 15.9 % Critically low 20.5-6 0.0 [facility] Comment on above: Performed By: #### B MP #### [facility] [address] [address] [address] Kelly Mukherjee MANUAL DIFF REQ NO Normal [facility] Comment on above: Performed By: #### B MP #### [facility] [address] [address] [address] Kelly Mukherjee MCH (RBC) [Entitic mass] 33.8 pg Normal 25.9-34.0 [facility] Comment on above: Performed By: #### B MP #### [facility] [address] [place] [address] Dr. Kelly Mukherjee MCHC (RBC) [Mass/Vol] 33.5 g/dL Normal 29.9-35.2 [facility] Comment on above: Performed By: #### B MP #### [facility] [address] [place] [address] Dr. Kelly Mukherjee MCV (RBC) [Entitic vol] 100.6 fL Critically high 80.0-94 .0 [facility] Comment on above: Performed By: #### B MP #### [facility] [address] [place] [address] Dr. Kelly Mukherjee MONO # 0.2 103/ul Critically low 0.3-0.8 [facility] Comment on above: Performed By: #### B MP #### [facility] [address] [place] [address] Dr. Kelly Mukherjee Monocytes/100 WBC (Bld) 4.9 % Normal 1.7-12.0 [facility] Comment on above: Performed By: #### B MP #### [facility] [address] [place] [address] Dr. Kelly Mukherjee NEUT # 2.7 103/ul Normal 1.4-6.5 [facility] Comment on above: Performed By: #### B MP #### [facility] [address] [place] [address] Dr. Kelly Mukherjee Neutrophils/100 WBC (Bld) 76.6 % Critically high 43.0- 75.0 [facility] Comment on above: Performed By: #### B MP #### [facility] [address] [address] [address] Kelly Mukherjee Platelet mean volume (Bld) [Entitic vol] 10.4 fL Normal 9.5-13.5 [facility] Comment on above: Performed By: #### B MP #### [facility] [address] [address] [address] Kelly Mukherjee PLT 72 103/ul Critically low 150-450 [facility] Comment on above: Performed By: #### B MP #### [facility] [address] [address] [address] Kelly Mukherjee RBC 3.17 106/ul Critically low 4.70-6.10 [facility] Comment on above: Performed By: #### B MP #### [facility] [address] [address] [address] Kelly Mukherjee WBC 3.5 103/ul Critically low 4.0-11.0 [facility] Comment on above: Performed By: #### B MP #### [facility] [address] HEAD WO CONon [...] CELINE COLVIN Date: 2022-02-15 15:[address] [facility] PROF 14(COMP METB)on 022 Albumin [Mass/Vol] 3.7 g/dL Normal 3.4-5.0 [facility] Comment on above: Performed By: #### B MP #### [facility] [address] [place] [address] Dr. Kelly Mukherjee Albumin/Globulin [Mass ratio] 1.3 {ratio} Normal [facility] Comment on above: Performed By: #### B MP #### [facility] [address] [place] [address] Dr. Kelly Mukherjee ALP [Catalytic activity/Vol] 84 U/L Normal 46-116 [facility] Comment on above: Performed By: #### B MP #### [facility] [address] [place] [address] Dr. Kelly Mukherjee ALT [Catalytic activity/Vol] 29 U/L Normal 16-63 [facility] Comment on above: Performed By: #### B MP #### [facility] [address] [place] [address] Dr. Kelly Mukherjee Anion gap [Moles/Vol] 14.3 mmol/L Normal [facility] Comment on above: Performed By: #### B MP #### [facility] [address] [place] [address] Dr. Kelly Mukherjee AST [Catalytic activity/Vol] 15 U/L Normal 15-37 [facility] Comment on above: Performed By: #### B MP #### [facility] [address] [place] [address] Dr. Kelly Mukherjee Bilirubin [Mass/Vol] 0.5 mg/dL Normal 0.2-1.0 [facility] Comment on above: Performed By: #### B MP #### [facility] [address] [place] [address] Dr. Kelly Mukherjee Calcium [Mass/Vol] 9.0 mg/dL Normal 8.5-10.1 [facility] Comment on above: Performed By: #### B MP #### [facility] [address] [place] [address] Dr. Kelly Mukherjee Chloride [Moles/Vol] 105 mmol/L Normal 98-107 [facility] Comment on above: Performed By: #### B MP #### [facility] [address] [address] [address] Kelly Mukherjee CO2 [Moles/Vol] 27.0 mmol/L Normal 21.0-32.0 [facility] Comment on above: Performed By: #### B MP #### [facility] [address] [address] [address] Kelly Mukherjee Creatinine [Mass/Vol] 0.90 mg/dL Normal 0.70-1.30 [facility] Comment on above: Performed By: #### B MP #### [facility] [address] [address] [address] Kelly Mukherjee EGFR-AF BAHRAINI >60 Normal >=60 [facility] Comment on above: Performed By: #### B MP #### [facility] [address] [address] [address] Kelly Mukherjee EGFR-NON AF BAHRAINI >60 Normal >=60 [facility] Comment on above: Performed By: #### B MP #### [facility] [address] [address] [address] Kelly Mukherjee Globulin (S) [Mass/Vol] 2.9 g/dL Normal [facility] Comment on above: Performed By: #### B MP #### [facility] [address] [address] [address] Kelly Mukherjee Glucose [Mass/Vol] 234 mg/dL Critically high 74-106 [facility] Comment on above: Performed By: #### B MP #### [facility] [address] [address] [address] Kelly Mukherjee Potassium [Moles/Vol] 4.3 mmol/L Normal 3.5-5.1 [facility] Comment on above: Performed By: #### B MP #### [facility] [address] [address] [address] Kelly Mukherjee Protein [Mass/Vol] 6.6 g/dL Normal 6.4-8.2 [facility] Comment on above: Performed By: #### B MP #### [facility] [address] [place] [address] Dr. Kelly Mukherjee Sodium [Moles/Vol] 142 mmol/L Normal 136-145 [facility] Comment on above: Performed By: #### B MP #### [facility] [address] [place] [address] Dr. Kelly Mkuherjee Urea nitrogen [Mass/Vol] 27.0 mg/dL Critically high 7.0-18 .0 [facility] Comment on above: Performed By: #### B MP #### [facility] [address] [place] [address] Dr. Kelly Mukherjee Urea nitrogen/Creatinine [Mass ratio] 30.0 mg/mg Normal [facility] Comment on above: Performed By: #### B MP #### [facility] [address] [place] [address] Dr. Kelly Mukherjee PROTIMEon 02-15-2022 INR Coag (PPP) [Relative time] 1.03 {INR} Normal [facility] Comment on above: Performed By: #### C VDTBH #### [facility] [address] [place] [address] Dr. Kelly Mukherjee INR GUIDELINES SEE BELOW Normal [facility] Comment on above: Result Comment: JULIANA RED INR: 2.0 - 3.0 CONDITIONS NOT LISTED BELOW 2.5 - 3.5 FOR PROSTHETIC HEART VALVE REPLACEMENT 2.5 - 3.5 RECURRENT THROMBOSIS Performed By: #### C VDTBH #### [facility] [address] [place] [address] Dr. Kelly Mukherjee PT Coag (PPP) [Time] 11.1 s Normal 9.0-11.6 [facility] Comment on above: Performed By: #### C VDTBH #### [facility] [address] [place] [address] Dr. Kelly Mukherjee PTTon 02-15-2022 aPTT Coag (Bld) [Time] 26.9 s Normal 22.3-36.2 [facility] Comment on above: Performed By: #### C VDTBH #### [facility] [address] [place] [address] Dr. Kelly Mukherjee XR CHEST 1 Von [...] by: SONAM OLSON Date: 2022-02-15 15:49 Normal [facility] Vital Signs Date Time Vital Sign Value Performing Clinician Facility 06-10-2024 13:45-0400 Body height 172.72 cm [facility] 06-10-2024 13:45-0400 Body mass index (BMI) [Ratio] 23.1 kg/m2 [facility] 06-10-2024 13:45-0400 Body weight 69.05 kg [facility] 06-10-2024 13:45-0400 Diastolic blood pressure 89 mm[Hg] [facility] 06-10-2024 13:45-0400 Heart rate 61 /min [facility] 06-10-2024 13:45-0400 Respiratory rate 20 /min [facility] 06-10-2024 13:45-0400 Systolic blood pressure 139 mm[Hg] [facility] 02-26-2024 14:23-0400 Body height 172.72 cm [facility] 02-26-2024 14:23-0400 Body mass index (BMI) [Ratio] 25 kg/m2 [facility] 02-26-2024 14:23-0400 Body weight 74.84 kg [facility] 02-26-2024 14:23-0400 Diastolic blood pressure 64 mm[Hg] [facility] 02-26-2024 14:23-0400 Heart rate 67 /min [facility] 02-26-2024 14:23-0400 Respiratory rate 20 /min [facility] 02-26-2024 14:23-0400 Systolic blood pressure 169 mm[Hg] [facility] 12-14-2023 11:18-0500 Body height 172.72 cm [facility] 12-14-2023 11:18-0500 Body mass index (BMI) [Ratio] 24 kg/m2 [facility] 12-14-2023 11:18-0500 Body weight 71.89 kg [facility] 12-14-2023 11:18-0500 Diastolic blood pressure 53 mm[Hg] [facility] 12-14-2023 11:18-0500 Heart rate 65 /min [facility] 12-14-2023 11:18-0500 Respiratory rate 20 /min [facility] 12-14-2023 11:18-0500 Systolic blood pressure 170 mm[Hg] [facility] 11-06-2023 13:30-0500 Body height 172.72 cm Juan A Ball Other [facility] [employer] Other 11-06-2023 13:30-0500 Body mass index (BMI) [Ratio] 24.45 kg/m2 Juan A Ball Other [facility] [employer] Other 11-06-2023 13:30-0500 Body weight 72.94 kg Juan A Ball Other [facility] Other 11-06-2023 13:30-0500 Diastolic blood pressure 88 mm[Hg] Juan A Ball Other [facility] [employer] Other 11-06-2023 13:30-0500 Respiratory rate 12 /min Juan A Ball Other [facility] Other 11-06-2023 13:30-0500 Systolic blood pressure 138 mm[Hg] Juan A Ball Other [facility] [employer] Other 07-05-2023 11:30-0400 Body height 172.72 cm Juan A Ball Other [employer] Other 07-05-2023 11:30-0400 Body mass index (BMI) [Ratio] 24.87 kg/m2 Juan A Ball Other [employer] Other 07-05-2023 11:30-0400 Body weight 74.21 kg Juan A Ball Other [employer] Other 07-05-2023 11:30-0400 Diastolic blood pressure 64 mm[Hg] Juan A Ball Other [employer] Other 07-05-2023 11:30-0400 Respiratory rate 16 /min Juan A Ball Other [employer] Other 07-05-2023 11:30-0400 Systolic blood pressure 136 mm[Hg] Juan A Ball Other [employer] Other 04-04-2023 15:00-0400 Body height 172.72 cm Juan A Ball Other [employer] Other 04-04-2023 15:00-0400 Body mass index (BMI) [Ratio] 25.12 kg/m2 Juan A Ball Other [employer] Other 04-04-2023 15:00-0400 Body weight 74.93 kg Juan A Ball Other [employer] Other 04-04-2023 15:00-0400 Diastolic blood pressure 63 mm[Hg] Juan A Ball Other [employer] Other 04-04-2023 15:00-0400 Respiratory rate 12 /min Juan A Ball Other [employer] Other 04-04-2023 15:00-0400 Systolic blood pressure 173 mm[Hg] Juan A Ball Other [employer] Other 01-01-2023 14:30-0400 Body height 172.72 cm Juan A Ball Other [employer] Other 01-01-2023 14:30-0400 Body mass index (BMI) [Ratio] 24.93 kg/m2 Juan A Ball Other [employer] Other 01-01-2023 14:30-0400 Body weight 74.39 kg Juan A Ball Other [employer] Other 01-01-2023 14:30-0400 Diastolic blood pressure 62 mm[Hg] Juan A Ball Other [employer] Other 01-01-2023 14:30-0400 Respiratory rate 12 /min Juan A Ball Other [employer] Other 01-01-2023 14:30-0400 Systolic blood pressure 143 mm[Hg] Juan A Ball Other [employer] Other 10-13-2022 16:30-0500 Body height 172.72 cm Juan A Ball Other [employer] Other 10-13-2022 16:30-0500 Body mass index (BMI) [Ratio] 24.63 kg/m2 Juan A Ball Other [employer] Other 10-13-2022 16:30-0500 Body weight 73.48 kg Juan A Ball Other [employer] Other 10-13-2022 16:30-0500 Diastolic blood pressure 62 mm[Hg] Juan A Ball Other [employer] Other 10-13-2022 16:30-0500 Respiratory rate 12 /min Juan A Ball Other [employer] Other 10-13-2022 16:30-0500 Systolic blood pressure 122 mm[Hg] Juan A Ball Other [employer] Other 08-30-2022 14:43-0500 Body height 170.3 cm Tricia Crespo MD Work Phone: [facility] 08-30-2022 14:43-0500 Body temperature 97.7 [degF] Tricia Crespo MD Work Phone: [facility] 08-30-2022 14:43-0500 Body weight 73.57 kg Tricia Crespo MD Work Phone: [facility] 08-30-2022 14:43-0500 Diastolic blood pressure 59 mm[Hg] Tricia Crespo MD Work Phone: [facility] 08-30-2022 14:43-0500 Heart rate 59 /min Tricia Crespo MD Work Phone: [facility] 08-30-2022 14:43-0500 Respiratory rate 18 /min Tricia Crespo MD Work Phone: [facility] 08-30-2022 14:43-0500 SaO2% (BldA) [Mass fraction] 96 % Tricia Crespo MD Work Phone: [facility] 08-30-2022 14:43-0500 Systolic blood pressure 158 mm[Hg] Tricia Crespo MD Work Phone: [facility] Encounters Encounter Date Encounter Type Care Provider Facility Start: 06-19-2024 End: 06-19-2024 ambulatory [facility] Start: 06-10-2024 End: 06-10-2024 ambulatory [facility] Work Phone: Start: 06-10-2024 End: 06-10-2024 Patient encounter procedure [facility] Work Phone: Start: 06-07-2024 Patient encounter procedure [facility] Start: 02-26-2024 End: 02-26-2024 ambulatory [facility] Work Phone: Start: 02-26-2024 End: 02-26-2024 Patient encounter procedure [facility] Work Phone: Start: 02-18-2024 Non-patient / Non-visit [facility] Work Phone: Start: 02-15-2024 Non-patient / Non-visit [facility] Work Phone: Start: 02-14-2024 Non-patient / Non-visit [facility] Work Phone: Start: 02-07-2024 End: 02-07-2024 ambulatory CH[facility] ROBERSON Not Available Start: 12-14-2023 End: 12-14-2023 Patient encounter procedure [facility] Work Phone: Start: 11-06-2023 End: 11-06-2023 ambulatory Juan A Cox Other [employer] Other Start: 11-06-2023 Office outpatient vi sit 25 minutes Juan A Cox [facility] Start: 07-17-2023 End: 07-17-2023 ambulatory Juan A Blaise Other [employer] Other Start: 07-17-2023 Telephone encounter Juan A Cox [facility] Start: 07-05-2023 End: 07-05-2023 ambulatory Juan A Ball Other [employer] Other Start: 07-05-2023 Patient encounter procedure Juan A Cox [facility] Start: 04-04-2023 End: 04-04-2023 ambulatory Juan A Ball Other [employer] Other Start: 04-04-2023 Office outpatient vi sit 25 minutes Juan A Ball [facility] Start: 01-01-2023 End: 01-01-2023 ambulatory Juan A Ball Other [employer] Other Start: 01-01-2023 Office outpatient vi sit 25 minutes Juan A Ball [facility] Start: 12-14-2022 End: 12-14-2022 ambulatory Juan A Ball Other [employer] Other Start: 12-14-2022 Telephone encounter Juan A Ball [facility] Start: 12-11-2022 End: 12-12-2022 ambulatory Dominic CASTELLANOS Facility:[facility] Start: 12-11-2022 End: 12-11-2022 Patient encounter procedure Dominic CASTELLANOS [facility] Start: 12-08-2022 End: 12-09-[address] DOMINIC CASTELLANOS Facility: Start: 11-27-2022 End: 11-27-2022 ambulatory Juan A Ball Other [employer] Other Start: 11-27-2022 Telephone encounter Juan A Ball [facility] Start: 11-07-2022 End: 11-08-2022 ambulatory ELLIS HO Facility: Start: 10-29-2022 End: 10-29-2022 ambulatory Juan A Ball Other [employer] Other Start: 10-29-2022 Telephone encounter Juan A Ball [facility] Start: 10-20-2022 End: 10-20-2022 ambulatory Juan A Ball Other [employer] Other Start: 10-20-2022 Telephone encounter Juan A Ball [facility] Start: 10-13-2022 End: 10-13-2022 ambulatory Juan A Ball Other [employer] Other Start: 10-13-2022 Office outpatient vi sit 25 minutes Juan A [facility] Start: 10-04-2022 End: 10-05-[address] JAUN A COX Facility:[facility] Start: 09-01-2022 Telephone encounter Rolando santos RN Work Phone: Hematology/Oncology Comment on above: Care Coordination (L ab Results) Start: 08-30-2022 End: 08-30-2022 ambulatory Tricia Crespo MD Work Phone: Hematology/Oncology Comment on above: Splenomegaly (Primar y Dx); Abnormal finding of blood chemistry, unspecified Start: 08-30-2022 End: 08-30-2022 Patient encounter procedure Tricia Crespo MD Work Phone: [place] Start: 05-08-2022 End: 05-08-[address] JUAN [...] 07-17-2018 End: 07-18-2018 Patient encounter DEFAULT PHYSICIAN Facility:[facility] Start: 09-18-2017 End: 09-19-2017 Patient encounter DEFAULT PHYSICIAN Facility:[facility] Procedures Date Procedure Procedure Detail Performing Clinician Start: 02-14-2024 Bacteria identified in Urine by Culture Start: 12-08-2022 PSA screening ELLIS GARCIA Comment on above: Performed By: #### C VDTB #### [facility] [address] [place] [address] Dr. Kelly Mukherjee Start: 04-06-2021 Extracorporeal shock [...] Author Start: 08-30-2025 [address] SCREEN [facility] Start: 02-27-2023 End: 04-29-2023 CBC W Auto Differential panel - Blood CBC + DIFF Lab Routine Splenomegaly Expected: 02/27/2023 (Approximate), Expires: 04/29/2023 [facility] Work Phone: Comment on above: Expected: 02/27/2023 (Approximate), Expires: 04/29/2023 Start: 02-27-2023 End: 04-29-2023 Comprehensive metabolic 2000 panel - Serum or Plasma COMP METABOLIC PANEL Lab Routine Splenomegaly Expected: 02/27/2023 (Approximate), Expires: 04/29/2023 [facility] Work Phone: Comment on above: Expected: 02/27/2023 (Approximate), Expires: 04/29/2023 Start: 08-30-2022 End: 10-30-2022 Cobalamin (Vitamin B12) [Mass/volume] in Serum or Plasma [facility] Work Phone: Comment on above: Expected: 08/30/2022 , Expires: 10/30/2022 Start: 08-30-2022 End: 08-30-2023 Ferritin [Mass/volume] in Serum or Plasma [facility] Work Phone: Comment on above: Expected: 08/30/2022 , Expires: 08/30/2023 Start: 08-30-2022 End: 08-30-2023 Iron and Iron binding capacity panel - Serum or Plasma [facility] Work Phone: Comment on above: Expected: 08/30/2022 , Expires: 08/30/2023 Start: 10-08-2021 ADVANCE DIRECTIVE DISCUSSION ADVANCE DIRECTIVE DISCUSSION [facility] Start: 10-08-2021 DEPRESSION ASSESSMENT DEPRESSION ASS ESSMENT [facility] Start: 02-01-2021 COVID-19 VACCINE (3 - Booster for Moderna series) COVID-19 VACCINE (3 - Booster for Moderna series) [facility] Start: 2011 PNEUMOCOCCAL: 65+ (1 - PCV) PNEUMOCOCCAL: 65+ (1 - PCV) [facility] Start: 1996 SHINGRIX VACCINE (1 of 2) SHINGRIX VACCINE (1 of 2) [facility] Start: 1965 Urine microalbumin profile DTAP,TDAP,TD (1 - Tdap) [facility] Start: 1964 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 VISIT ANNUAL PCP TEAM CHRONIC DISEASE VISIT [facility] Start: 1964 Hepatitis B surface antibody level LDL CHOLESTEROL [facility] Bacteria identified in Urine by Culture [facility] Comprehensive metabo lic 2000 panel - Serum or Plasma [facility] Immunizations Immunization Date Immunization Notes Care Provider Milka puga 07-05-2023 influenza virus vaccine, unspecified formulation [facility] 07-05-2023 influenza, high dose seasonal, preservative-free Juan A Cox Other [employer] [facility] [employer] Other 07-11-2022 influenza (aIIV4) vaccine, age 65+ yr, quadrivalent, PF (FLUAD QUADRIVALENT) Tricia Crespo MD Work Phone: [facility] 07-11-2022 influenza virus vaccine, split virus (incl. purified surface antigen) Juan A Cox Other [employer] Other 07-11-2022 influenza virus vaccine, unspecified formulation Dominic CASTELLANOS [facility] 07-11-2022 influenza, high dose seasonal, preservative-free Juan A Cox Other [facility] [employer] Other 07-19-2021 influenza virus vaccine, split virus (incl. purified surface antigen) Juan A Cox Other [employer] Other 07-19-2021 influenza virus vaccine, unspecified formulation [facility] 07-08-2021 influenza virus vaccine, unspecified formulation Dominic CASTELLANOS [facility] 12-07-2020 COVID-19 original vaccine, full dose, monovalent (MODERNA) Tricia Crespo MD Work Phone: [facility] 12-06-2020 SARS-CoV-2 (COVID-19 ) [id number] vaccine [employer] [facility] 11-09-2020 COVID-19 original vaccine, full dose, monovalent (MODERNA) Tricia Crespo MD Work Phone: [facility] 11-08-2020 SARS-CoV-2 (COVID-19 ) [id number] vaccine [employer] [facility] 07-30-2020 influenza virus vaccine, split virus (incl. purified surface antigen) Juan A Cox Other [facility] Other 07-30-2020 influenza virus vaccine, unspecified formulation Dominic YEFRI [facility] 07-30-2020 influenza, injectabl e, quadrivalent, preservative free Tricia Crespo MD Work Phone: [facility] 07-21-2019 influenza virus vaccine, split virus (incl. purified surface antigen) Juan A Cox Other [facility] Other 07-21-2019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
[2024-06-28 11:22] LABS: Bilirubin Urine NEGATIVE (NEGATIVE); Blood Urine NEGATIVE (NEGATIVE); Clarity Urine CLEAR (CLEAR); Color Urine LT. YELLOW (YELLOW); Glucose Urine UA NEGATIVE (NEGATIVE); Ketones Urine NEGATIVE (NEGATIVE); Leukocyte Esterase Urine SMALL (NEGATIVE); Nitrite Urine POSITIVE (NEGATIVE); Protein Urine 100 mg/dL (NEG/TRACE); Specific Gravity Urine 1.025 (1.005-1.025); Urobilinogen Urine 0.2 EU/dL (0.2-1.0); pH Urine 5.5 (5.0-9.0)
[2024-06-28 11:46] LABS: Bacteria Urine MODERATE #/HPF (NONE SEEN); RBC Urine 0-2 #/HPF (0-2)
[2024-06-28 11:47] LABS: Cast Seen? NONE SEEN #/LPF (NONE SEEN); Crystals Seen? None Seen #/HPF (None Seen); Mucus Urine NONE SEEN (NONE SEEN); Squamous Epithelial Cell Urine RARE #/LPF (NONE/RARE)
== END 2024-06-28 10:40 | disposition home or self-care (01) ==
LOC: LAB 10:39
PROVIDERS: PCP Internal Medicine; Visit Provider Internal Medicine
DX: N41.0 Acute prostatitis (principal); E11.65 Type 2 diabetes mellitus with hyperglycemia; I25.10 Atherosclerotic heart disease of native coronary artery without angina pectoris; I10 Essential (primary) hypertension; E78.00 Pure hypercholesterolemia, unspecified
CPT/HCPCS: 81001

== ENCOUNTER 2024-07-02 14:36 | Outpatient (OUT) | payer MEDICARE, SELFPAY ==
--- OUTSIDE RECORDS SUMMARY | 2024-07-02 14:45 | XMS_ITS | CCD ---
Author Organization [facility] CliniSynm Care Team Providers Care Wallpaper Installer Name Role Phone PHYSICIAN, DEFAULT Unavailable Unavailable [...] Drug Allergy 9 AOF, Unknown Reaction [facility] (6 sources) Neomycin; 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: [neomycin] Drug Allergy 9 Rash [facility] (5 sources) Simvastatin Drug Allergy 4 Unknown, Unknown Reaction [facility] Medications Current Medications Medication Drug Class(es) [...] Daily, # 90 tab(s), Refills(s) 3, Pharmacy: [facility] ([facility]), 174, cm, 12/05/21 11:35:00 [...] mg extended release oral capsule (17 sources) F-duntwy-L-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 Receptor Antagonist Start: 12-14-2023 take 28 mg [...] Start: 03-10-2014 take 2 tablets by mo [facility] twice daily oxcarbazepine 300 mg Tab 600 mg = 2 tab(s), Oral, BID Start Date: 03/03/21 Status: [facility] OXcarbazepine 300 MG [...] Coronary arteriosclerosis; 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: [Atherosclerotic heart disease of [place] coronary artery without angina pectoris] Onset: 4 [...] sources) Long-term current use of insulin; 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: [penitentiary (current) use of insulin] 12-14-2023 Episodic Other aftercare (6 sources) penitentiary (current) use of insulin; 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: [3D ARTIST CURRENT USE OF INSULIN] Onset: 3 Episodic Other aftercare (1 source) Other snf (current) drug therapy; 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: [OTH 3D ARTIST CURRENT DRUG THERAPY] Onset: 3 Episodic Other [...] Onset: 03-27-2022 Episodic Other aftercare (1 source) penitentiary (current) use of aspirin; 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: [3D ARTIST CURRENT USE OF ASPIRIN] Onset: 05-09-2022 Episodic [...] Basophils (Bld) [#/Vol] 0.0 10 3/uL 0.0-0.1 [facility] Basophils/100 WBC Auto (Bld) on 02-15-2024 Basophils/100 WBC (Bld) 0.2 % 0.2-2.0 F [facility] Eosinophils/100 WBC Auto (Bl d)on 02-15-2024 Eosinophils/100 WBC (Bld) 0.0 % 0.9-7.0 [facility] Erythrocyte distribution wid th Auto (RBC) [Ratio]on 02-15-2024 Erythrocyte distribution width (RBC) [Ratio] 15.2 % 11.0-15.0 [facility] Estimated glomerular filtrat ion rate (GFR) non- Americanon 02-15-2024 GFR/1.73 sq M.predicted among non-blacks MDRD (S/P/Bld) [Vol rate/Area] mL/min/{1.73_m2} >=60 [facility] Globulin Calc (S) [Mass/Vol] on 02-15-2024 Globulin (S) [Mass/Vol] 3.1 g/dL F [facility] Hematocrit Auto (Bld) [Volum e fraction]on 02-15-2024 Hematocrit (Bld) [Volume fraction] 29.3 % 42.0-54.0 [facility] Hemoglobin [Mass/volume] in Bloodon 02-15-2024 Hemoglobin (Bld) [Mass/Vol] 9.7 g/dL 14.0-18.0 [facility] Laboratory - Chemistry and C hemistry - challengeon 02-15-2024 Albumin [Mass/Vol] 3.4 g/dL 3.4-5.0 [facility] ALP [Catalytic activity/Vol] 90 U/L 46-116 [facility] ALT [Catalytic activity/Vol] 31 U/L 16-63 [facility] AST [Catalytic activity/Vol] 28 U/L 15-37 [facility] Bilirubin [Mass/Vol] 0.5 mg/dL 0.2-1.[address] [facility] Calcium [Mass/Vol] 9.1 mg/dL 8.5-10.1 [facility] Chloride [Moles/Vol] 107 mmol/L 98-[address] [facility] CO2 [Moles/Vol] 28.2 mmol/L 21.0-32.[address] [facility] Creatinine [Mass/Vol] 0.98 mg/dL 0.70-1.30 [facility] GFR/1.73 sq M.predicted MDRD (S/P/Bld) [Vol rate/Area] mL/min/{1.73_m2} >=60 [facility] Glucose [Mass/Vol] 184 mg/dL 74-106 [facility] Potassium [Moles/Vol] 3.6 mmol/L 3.5-5.1 [facility] Protein [Mass/Vol] 6.5 g/dL 6.4-8.2 [facility] Sodium [Moles/Vol] 144 mmol/L 136-145 [facility] Urea nitrogen [Mass/Vol] 24.0 mg/dL 7.0-18.0 [facility] Urea nitrogen/Creatinine [Mass ratio] 24.5 mg/mg [facility] Laboratory - Hematology and Cell countson 02-15-2024 Immature granulocytes/100 WBC (Bld) 0.6 % 0.0-0.5 [facility] Leukocytes [#/volume] correc karina for nucleated erythrocytes in Blood by Automated counon 02-15-2024 WBC corrected for nucl RBC Auto (Bld) [#/Vol] 4.7 10 3/uL 4.0-11.0 [facility] Lymphocytes Auto (Bld) [#/Vo l]on 02-15-2024 Lymphocytes (Bld) [#/Vol] 0.2 10 3/uL 1.2-3.8 [facility] Lymphocytes/100 WBC Auto (Bl d)on 02-15-2024 Lymphocytes/100 WBC (Bld) 5.1 % 20.5-60.0 [facility] MCH Auto (RBC) [Entitic mass ]on 02-15-2024 MCH (RBC) [Entitic mass] 33.3 pg 25.9-34.0 [facility] MCHC Auto (RBC) [Mass/Vol]on 02-15-2024 MCHC (RBC) [Mass/Vol] 33.1 g/dL 29.9-35.2 [facility] MCV Auto (RBC) [Entitic vol] on 02-15-2024 MCV (RBC) [Entitic vol] 100.7 fL 80.0-94.0 F [facility] Monocytes Auto (Bld) [#/Vol] on 02-15-2024 Monocytes (Bld) [#/Vol] 0.3 10 3/uL 0.3-0.8 [facility] Monocytes/100 WBC Auto (Bld) on 02-15-2024 Monocytes/100 WBC (Bld) 7.2 % 1.7-12.0 F [facility] Neutrophils Auto (Bld) [#/Vo l]on 02-15-2024 Neutrophils (Bld) [#/Vol] 4.1 10 3/uL 1.4-6.5 [facility] Neutrophils/100 WBC Auto (Bl d)on 02-15-2024 Neutrophils/100 WBC (Bld) 86.9 % 43.0-75.0 [facility] No Panel Informationon 02-14 Eosinophils # (Auto) 0.0 10 3/uL 0.0-0.7 [facility] Immature Granulocyte # (Auto) 0.03 10 3/uL 0.00-0.03 [facility] Platelet mean volume Auto (B ld) [Entitic vol]on 02-15-2024 Platelet mean volume (Bld) [Entitic vol] 10.6 fL 9.5-13.5 [facility] Platelets Auto (Bld) [#/Vol] on 02-15-2024 Platelets (Bld) [#/Vol] 60 10 3/uL 150-450 F [facility] RBC Auto (Bld) [#/Vol]on RBC (Bld) [#/Vol] 2.91 10 6/uL 4.70-6.10 [facility] Serum or plasma albumin/glob ulin mass ratioon 02-15-2024 Albumin/Globulin [Mass ratio] 1.1 {ratio} [facility] Serum or plasma anion gap de terminationon 02-15-2024 Anion gap [Moles/Vol] 12.4 mmol/L Fi [facility] Basophils/100 WBC Manual cnt (Bld)on 02-14-2024 Basophils/100 WBC (Bld) 1.0 % 0.2-2.0 F [facility] Casts typing in urine sedime nt by light microscopyon 02-14-2024 Casts LM Nom (Urine sed) NONE SEEN #/LPF NONE S EEN [facility] Eosinophils/100 WBC Manual c nt (Bld)on 02-14-2024 Eosinophils/100 WBC (Bld) 0.0 % 0.9-7.0 [facility] Erythrocyte distribution wid th Auto (RBC) [Ratio]on 02-14-2024 Erythrocyte distribution width (RBC) [Ratio] 15.0 % 11.0-15.0 [facility] Estimated glomerular filtrat ion rate (GFR) non- Americanon 02-14-2024 GFR/1.73 sq M.predicted among non-blacks MDRD (S/P/Bld) [Vol rate/Area] mL/min/{1.73_m2} >=60 [facility] Hematocrit Auto (Bld) [Volum e fraction]on 02-14-2024 Hematocrit (Bld) [Volume fraction] 28.2 % 42.0-54.0 [facility] Hemoglobin [Mass/volume] in Bloodon 02-14-2024 Hemoglobin (Bld) [Mass/Vol] 9.6 g/dL 14.0-18.0 [facility] Laboratory - Chemistry and C hemistry - challengeon 02-14-2024 Bilirubin Ql (U) Negative NEGATIVE [facility] Glucose (U) [Mass/Vol] 250 mg/dL [facility]IVE [facility] Ketones Ql (U) Negative NEGATIVE [facility] pH (U) 5.5 [pH] 5.0-9.0 [facility] Specific gravity (U) [Rel density] 1.025 1.005-1.025 [facility] Urobilinogen Qn (U) 0.2 {Jun'U}/dL 0.2-1.0 [facility] Calcium [Mass/Vol] 8.7 mg/dL 8.5-10.1 [facility] Chloride [Moles/Vol] 106 mmol/L 98-[address] [facility] CO2 [Moles/Vol] 30.0 mmol/L 21.0-32.[address] [facility] Creatinine [Mass/Vol] 1.12 mg/dL 0.70-1.30 [facility] GFR/1.73 sq M.predicted MDRD (S/P/Bld) [Vol rate/Area] mL/min/{1.73_m2} >=60 [facility] Glucose [Mass/Vol] 251 mg/dL 74-106 [facility] Potassium [Moles/Vol] 4.1 mmol/L 3.5-5.1 [facility] Sodium [Moles/Vol] 142 mmol/L 136-145 [facility] Urea nitrogen [Mass/Vol] 29.0 mg/dL 7.0-18.0 [facility] Urea nitrogen/Creatinine [Mass ratio] 25.9 mg/mg [facility] Laboratory - Hematology and Cell countson 02-14-2024 Band form neutrophils/100 WBC (Bld) 2.0 % 0-5 [facility] Lymphocytes/100 WBC (Bld) 1.0 % 20.5-60.0 [facility] Monocytes/100 WBC (Bld) 4.0 % 1.7-12.0 F [facility] Laboratory - Microbiology an d Antimicrobial susceptibilityOrdered By: Bj Ortega on 02-14-2024 Bacteria identified Cx Nom (U) [facility] Laboratory - Specimen inform ationon 02-14-2024 Appearance (U) CLEAR CLEAR [facility] Color (U) YELLOW YELLOW [facility] Laboratory - Urinalysison Amorphous sediment LM Ql (Urine sed) FEW [facility] Leukocyte esterase Test strip Ql (U) Negative NEGATIVE [facility] Nitrite Ql (U) Positive NEGATIVE [facility] Protein Ql (U) >=300 mg/dL NEG/TRACE [facility] Leukocytes [#/volume] correc karina for nucleated erythrocytes in Blood by Automated counon 02-14-2024 WBC corrected for nucl RBC Auto (Bld) [#/Vol] 4.5 10 3/uL 4.0-11.0 [facility] MCH Auto (RBC) [Entitic mass ]on 02-14-2024 MCH (RBC) [Entitic mass] 34.2 pg 25.9-34.0 [facility] MCHC Auto (RBC) [Mass/Vol]on 02-14-2024 MCHC (RBC) [Mass/Vol] 34.0 g/dL 29.9-35.2 [facility] MCV Auto (RBC) [Entitic vol] on 02-14-2024 MCV (RBC) [Entitic vol] 100.4 fL 80.0-94.0 F [facility] Mucus LM Ql (Urine sed)on Mucus Ql (Urine sed) NONE SEEN NONE SEEN [facility] No Panel Informationon 02-13 Urine Bacteria LARGE #/HPF NONE SEEN [facility] Urine Culture Reflexed YES [facility] Urine Occult Blood LARGE NEGATIVE [facility] Urine Other Crystals Seen #/HPF None Seen [facility] Urine RBC 0-2 #/HPF 0-2 [facility] Urine Squamous Epithelial Cells RARE #/LPF NONE/RARE [facility] Urine WBC 2-5 #/HPF NONE SEEN [facility] Absolute Basophils (Manual) 0.04 10 3/uL 0.00-0.10 [facility] Band Neutrophils # (Manual) 0.1 10 3/uL 0.0-0.3 [facility] Eosinophils # (Manual) 0.00 10 3/uL 0.00-0.70 [facility] Lymphocytes # (Manual) 0.04 10 3/uL 1.20-3.80 [facility] Monocytes # (Manual) 0.18 10 3/uL 0.30-0.80 [facility] Segmented Neutrophils # (Manual) 4.14 10 3/uL 1.4-6.5 [facility] Platelet mean volume Auto (B ld) [Entitic vol]on 02-14-2024 Platelet mean volume (Bld) [Entitic vol] 10.4 fL 9.5-13.5 [facility] Platelets Auto (Bld) [#/Vol] on 02-14-2024 Platelets (Bld) [#/Vol] 65 10 3/uL 150-450 F [facility] RBC Auto (Bld) [#/Vol]on RBC (Bld) [#/Vol] 2.81 10 6/uL 4.70-6.10 [facility] Segmented neutrophils/100 WB C Manual cnt (Bld)on 02-14-2024 Segmented neutrophils/100 WBC (Bld) 92.0 % [facility] Serum or plasma anion gap de terminationon 02-14-2024 Anion gap [Moles/Vol] 10.1 mmol/L [facility] [place] 12-12-2022 Screens [id number] 4#[id number]:127 Normal [facility] Ambulatory Visit Summaryon 0 12-11-2022 Ambulatory Visit [...] When: Only if needed Comments: PRN Where: [address] [place] [address]- Medications What How Much When Instructions Unchanged [...] and fortified (more content not included)... Normal [facility] Lab Reportson 12-11-2022 Lab Reports [id number] 7C#[id number]:127 Normal [facility] Patient Educationon 12-12-19 Patient Education Urology Dietary [...] Rhubarb. ? Beets. ? Potato chips and palauan fries. ? Nuts. ? If you regularly take a diuretic medicine, make sure to eat at least 1?2 fruits or vegetables high in potassium each day. These include: ? Avocado. ? Banana. ? [place], prune, carrot, or tomato juice. ? Baked [...] salt. Salad (more content not included)... Normal [facility] RAD - MISCon 12-11-2022 [facility] MIS [id number] CE#[id number]:127 Normal [facility] Urology Office/Clinic Noteon 12-11-2022 Urology Office/Clinic Note [...] HUIZAR, Dominic Handley, URL Only if needed [address] [place] [address]- Additional Instructions: PRN Patient Education Dietary Guidelines [...] Cancer o (more content not included)... Normal [facility] Comment on above: Result Comment: Elec tronically [...] by: SHAKA BLANCO Date: 2022-12-09 12:10 Normal [facility] OXCARBAZEPINE / TRILEPTALon 11-10-2022 Oxcarbazepine 40 ug/mL Critically high 10-35 [facility] Comment on above: Result Comment: This test was developed and its performance characteristics determined by [employer]. It has not been cleared or approved by the Food and Drug Administration. Detection Limit = 1 Performed By: #### B MP #### [facility] [address] [place] [address] Dr. Kelly Mukherjee CBC AUTO DIFFon 10-05-2022 BASO # 0.0 103/ul Normal 0.0-0.1 [facility] Comment on above: Performed By: #### B MP #### [facility] [address] [place] [address] Dr. Kelly Mukherjee Basophils/100 WBC (Bld) 0.3 % Normal 0.2-2.0 [facility] Comment on above: Performed By: #### B MP #### [facility] [address] [place] [address] Dr. Kelly Mukherjee EO # 0.1 103/ul Normal 0.0-0.7 [facility] Comment on above: Performed By: #### B MP #### [facility] [address] [place] [address] Dr. Kelly Mukherjee Eosinophils/100 WBC (Bld) 2.2 % Normal 0.9-7.0 [facility] Comment on above: Performed By: #### B MP #### [facility] [address] [place] [address] Dr. Kelly Mukherjee Erythrocyte distribution width (RBC) [Ratio] 14.8 % Normal 11.0-15.0 [facility] Comment on above: Performed By: #### B MP #### [facility] [address] [place] [address] Dr. Kelly Mukherjee Hematocrit (Bld) [Volume fraction] 29.5 % Critically low 42.0-54.0 [facility] Comment on above: Performed By: #### B MP #### [facility] [address] [place] [address] Dr. Kelly Mukherjee Hemoglobin (Bld) [Mass/Vol] 10.3 g/dL Critically low 14.0-18.0 [facility] Comment on above: Performed By: #### B MP #### [facility] [address] [place] [address] Dr. Kelly Mukherjee IG # 0.01 10e3/ul Normal 0.00-0.03 [facility] Comment on above: Performed By: #### B MP #### [facility] [address] [place] [address] Dr. Kelly Mukherjee IG % 0.3 % Normal 0.0-0.5 [facility] Comment on above: Performed By: #### B MP #### [facility] [address] [place] [address] Dr. Kelly Mukherjee LYMPH # 0.5 103/ul Critically low 1.2-3.8 [facility] Comment on above: Performed By: #### B MP #### [facility] [address] [place] [address] Dr. Kelly Mukherjee Lymphocytes/100 WBC (Bld) 16.0 % Critically low 20.5-6 0.0 [facility] Comment on above: Performed By: #### B MP #### [facility] [address] [place] [address] Dr. Kelly Mukherjee MANUAL DIFF REQ NO Normal [facility] Comment on above: Performed By: #### B MP #### [facility] [address] [place] [address] Dr. Kelly Mukherjee MCH (RBC) [Entitic mass] 34.1 pg Critically high 25.9-3 4.0 [facility] Comment on above: Performed By: #### B MP #### [facility] [address] [place] [address] Dr. Kelly Mukherjee MCHC (RBC) [Mass/Vol] 34.9 g/dL Normal 29.9-35.2 [facility] Comment on above: Performed By: #### B MP #### [facility] [address] [place] [address] Dr. Kelly Mukherjee MCV (RBC) [Entitic vol] 97.7 fL Critically high 80.0-94 .0 [facility] Comment on above: Performed By: #### B MP #### [facility] [address] [place] [address] Dr. Kelly Mukherjee MONO # 0.2 103/ul Critically low 0.3-0.8 [facility] Comment on above: Performed By: #### B MP #### [facility] [address] [place] [address] Dr. Kelly Mukherjee Monocytes/100 WBC (Bld) 5.8 % Normal 1.7-12.0 [facility] Comment on above: Performed By: #### B MP #### [facility] [address] [place] [address] Dr. Kelly Mukherjee NEUT # 2.4 103/ul Normal 1.4-6.5 [facility] Comment on above: Performed By: #### B MP #### [facility] [address] [place] [address] Dr. Kelly Mukherjee Neutrophils/100 WBC (Bld) 75.4 % Critically high 43.0- 75.0 [facility] Comment on above: Performed By: #### B MP #### [facility] [address] [place] [address] Dr. Kelly Mukherjee Platelet mean volume (Bld) [Entitic vol] 10.1 fL Normal 9.5-13.5 [facility] Comment on above: Performed By: #### B MP #### [facility] [address] [place] [address] Dr. Kelly Mukherjee PLT 63 103/ul Critically low 150-450 [facility] Comment on above: Performed By: #### B MP #### [facility] [address] [place] [address] Dr. Kelly Mukherjee RBC 3.02 106/ul Critically low 4.70-6.10 [facility] Comment on above: Performed By: #### B MP #### [facility] [address] [place] [address] Dr. Kelly Mukherjee WBC 3.1 103/ul Critically low 4.0-11.0 [facility] Comment on above: Performed By: #### B MP #### [facility] [address] [place] [address] Dr. Kelly Mukherjee ER URINE PROFILEon 2 Bilirubin Ql (U) Negative Normal NEGATIVE [facility] Comment on above: Performed By: #### B MP #### [facility] [address] [place] [address] Dr. Kelly Mukherjee Clarity (U) CLEAR Normal CLEAR [facility] Comment on above: Performed By: #### B MP #### [facility] [address] [place] [address] Dr. Kelly Mukherjee Color (U) LT. YELLOW Normal YELLOW [facility] Comment on above: Performed By: #### B MP #### [facility] [address] [place] [address] Dr. Kelly [place] A micrscopic examination will be performed if indicated. Normal [facility] Comment on above: Performed By: #### B MP #### [facility] [address] [place] [address] Dr. Kelly Mukherjee Glucose Ql (U) 250 mg/dl Abnormal NEGATIVE [facility] Comment on above: Performed By: #### B MP #### [facility] [address] [place] [address] Dr. Kelly Mukherjee Hemoglobin Ql (U) Negative Normal NEGATIVE [facility] Comment on above: Performed By: #### B MP #### [facility] [address] [place] [address] Dr. Kelly Mukherjee Ketones Ql (U) Negative Normal NEGATIVE [facility] Comment on above: Performed By: #### B MP #### [facility] [address] [place] [address] Dr. Kelly Mukherjee LEUKOCYTES Negative Normal NEGATIVE [facility] Comment on above: Performed By: #### B MP #### [facility] [address] [address] [address] Kelly Mukherjee Nitrite Ql (U) Negative Normal NEGATIVE [facility] Comment on above: Performed By: #### B MP #### [facility] [address] [address] [address] Kelly Mukherjee pH (U) 7.0 [pH] Normal 5-9 [facility] Comment on above: Performed By: #### B MP #### [facility] [address] [address] [address] Kelly Mukherjee Protein (U) [Mass/Vol] 100 mg/dL Abnormal NEGAT NADER/ TRACE [facility] Comment on above: Performed By: #### B MP #### [facility] [address] [place] [address] Dr. Kelly Mukherjee SPEC GRAVITY 1.020 Normal 1.005-<=1.02 5 [facility] Comment on above: Performed By: #### B MP #### [facility] [address] [address] [address] Kelly Mukherjee UR MICRO IND NOT INDICATED Normal [facility] Comment on above: Performed By: #### B MP #### [facility] [address] [address] [address] Kelly Mukherjee Urobilinogen Qn (U) 0.2 {Jun'U}/dL Normal 0.2 - 1. 0 [facility] Comment on above: Performed By: #### B MP #### [facility] [address] [place] [address] Dr. Kelly Mukherjee POINT OF CARE GLUCOSEon 09-08 Glucose [Mass/Vol] 253 mg/dL Critically high 74-106 [facility] Comment on above: Performed By: #### P OCGLUC #### [facility] [address] [place] [address] Dr. Kelly Mukherjee PROF CHEM 8 (BAS METB)on Anion gap [Moles/Vol] 8.5 mmol/L Normal [facility] Comment on above: Performed By: #### B MP #### [facility] [address] [address] [address] Kelly Mukherjee Calcium [Mass/Vol] 8.7 mg/dL Normal 8.5-10.1 [facility] Comment on above: Performed By: #### B MP #### [facility] [address] [address] [address] Kelly Mukherjee Chloride [Moles/Vol] 106 mmol/L Normal 98-107 [facility] Comment on above: Performed By: #### B MP #### [facility] [address] [address] [address] Kelly Mukherjee CO2 [Moles/Vol] 29.0 mmol/L Normal 21.0-32.0 [facility] Comment on above: Performed By: #### B MP #### [facility] [address] [address] [address] Kelly Mukherjee Creatinine [Mass/Vol] 0.84 mg/dL Normal 0.70-1.30 [facility] Comment on above: Performed By: #### B MP #### [facility] [address] [address] [address] Kelly Mukherjee EGFR-AF AZERBAIJANI >60 Normal >=60 [facility] Comment on above: Performed By: #### B MP #### [facility] [address] [address] [address] Kelly Mukherjee EGFR-NON AF AZERBAIJANI >60 Normal >=60 [facility] Comment on above: Performed By: #### B MP #### [facility] [address] [address] [address] Kelly Mukherjee Glucose [Mass/Vol] 119 mg/dL Critically high 74-106 [facility] Comment on above: Performed By: #### B MP #### [facility] [address] [address] [address] Kelly Mukherjee Potassium [Moles/Vol] 3.5 mmol/L Normal 3.5-5.1 [facility] Comment on above: Performed By: #### B MP #### [facility] [address] [address] [address] Kelly Mukherjee Sodium [Moles/Vol] 140 mmol/L Normal 136-145 [facility] Comment on above: Performed By: #### B MP #### [facility] [address] [place] [address] Dr. Kelly Mukherjee Urea nitrogen [Mass/Vol] 21.0 mg/dL Critically high 7.0-18 .0 [facility] Comment on above: Performed By: #### B MP #### [facility] [address] [place] [address] Dr. Kelly Mukherjee Urea nitrogen/Creatinine [Mass ratio] 25.0 mg/mg Normal [facility] Comment on above: Performed By: #### B MP #### [facility] [address] [place] [address] Dr. Kelly Mukherjee CBC AUTO DIFFon 10-04-2022 BASO # 0.0 103/ul Normal 0.0-0.1 [facility] Comment on above: Performed By: #### P OCGLUC #### [facility] [address] [place] [address] Dr. Kelly Mukherjee Basophils/100 WBC (Bld) 0.2 % Normal 0.2-2.0 [facility] Comment on above: Performed By: #### P OCGLUC #### [facility] [address] [place] [address] Dr. Kelly Mukherjee EO # 0.0 103/ul Normal 0.0-0.7 [facility] Comment on above: Performed By: #### P OCGLUC #### [facility] [address] [place] [address] Dr. Kelly Mukherjee Eosinophils/100 WBC (Bld) 1.0 % Normal 0.9-7.0 [facility] Comment on above: Performed By: #### P OCGLUC #### [facility] [address] [place] [address] Dr. Kelly Mukherjee Erythrocyte distribution width (RBC) [Ratio] 15.1 % Critically high 11.0-15.0 [facility] Comment on above: Performed By: #### P OCGLUC #### [facility] [address] [address] [address] Kelly Mukherjee Hematocrit (Bld) [Volume fraction] 30.3 % Critically low 42.0-54.0 [facility] Comment on above: Performed By: #### P OCGLUC #### [facility] [address] [address] [address] Kelly Mukherjee Hemoglobin (Bld) [Mass/Vol] 10.7 g/dL Critically low 14.0-18.0 [facility] Comment on above: Performed By: #### P OCGLUC #### [facility] [address] [address] [address] Kelly Mukherjee IG # 0.01 10e3/ul Normal 0.00-0.03 [facility] Comment on above: Performed By: #### P OCGLUC #### [facility] [address] [address] [address] Kelly Mukherjee IG % 0.2 % Normal 0.0-0.5 [facility] Comment on above: Performed By: #### P OCGLUC #### [facility] [address] [address] [address] Kelly Mukherjee LYMPH # 0.4 103/ul Critically low 1.2-3.8 [facility] Comment on above: Performed By: #### P OCGLUC #### [facility] [address] [address] [address] Kelly Mukherjee Lymphocytes/100 WBC (Bld) 8.9 % Critically low 20.5-6 0.0 [facility] Comment on above: Performed By: #### P OCGLUC #### [facility] [address] [address] [address] Kelly Mukherjee MANUAL DIFF REQ NO Normal [facility] Comment on above: Performed By: #### P OCGLUC #### [facility] [address] [address] [address] Kelly Mukherjee MCH (RBC) [Entitic mass] 34.1 pg Critically high 25.9-3 4.0 [facility] Comment on above: Performed By: #### P OCGLUC #### [facility] [address] [address] [address] Kelly Mukherjee MCHC (RBC) [Mass/Vol] 35.3 g/dL Critically high 29.9-35.2 [facility] Comment on above: Performed By: #### P OCGLUC #### [facility] [address] [address] [address] Kelly Mukherjee MCV (RBC) [Entitic vol] 96.5 fL Critically high 80.0-94 .0 [facility] Comment on above: Performed By: #### P OCGLUC #### [facility] [address] [address] [address] Kelly Mukherjee MONO # 0.2 103/ul Critically low 0.3-0.8 [facility] Comment on above: Performed By: #### P OCGLUC #### [facility] [address] [address] [address] Kelly Mukherjee Monocytes/100 WBC (Bld) 6.0 % Normal 1.7-12.0 [facility] Comment on above: Performed By: #### P OCGLUC #### [facility] [address] [address] [address] Kelly Mukherjee NEUT # 3.4 103/ul Normal 1.4-6.5 [facility] Comment on above: Performed By: #### P OCGLUC #### [facility] [address] [address] [address] Kelly Mukherjee Neutrophils/100 WBC (Bld) 83.7 % Critically high 43.0- 75.0 [facility] Comment on above: Performed By: #### P OCGLUC #### [facility] [address] [address] [address] Kelly Mukherjee Platelet mean volume (Bld) [Entitic vol] 10.2 fL Normal 9.5-13.5 [facility] Comment on above: Performed By: #### P OCGLUC #### [facility] [address] [address] [address] Kelly Mukherjee PLT 76 103/ul Critically low 150-450 [facility] Comment on above: Performed By: #### P OCGLUC #### [facility] [address], [place] [address] [address] Kelly Mukherjee RBC 3.14 106/ul Critically low 4.70-6.10 [facility] Comment on above: Performed By: #### P OCGLUC #### [facility] [address], [place] [address] [address]. Kelly Mukherjee WBC 4.0 103/ul Normal 4.0-11.0 [facility] Comment on above: Performed By: #### P OCGLUC #### [facility] [address], [place] [address] HEAD WO CONon [...] SYLVESTER BARBOUR Date: 2022-10-04 15:34 Normal [facility] Cov[facility]-19 [facility]on 09-08 SARS-CoV-2 (COVID-19) RNA ABIMBOLA+probe Ql (Unsp spec) Not detected Normal NOT DETECTED [facility] Comment on above: Result Comment: When [...] for this test is supported by the [place] of Health and Human Service's declaration that [...] used). Performed By: #### C VDTBH #### [facility] [address] [place] [address] Dr. Kelly Mukherjee POINT OF CARE GLUCOSEon 09-08 Glucose [Mass/Vol] 134 mg/dL Critically high 74-106 [facility] Comment on above: Performed By: #### P OCGLUC #### [facility] [address] [place] [address] Dr. Kelly Mukherjee PROF CHEM 8 (BAS METB)on Anion gap [Moles/Vol] 12.9 mmol/L Normal [facility] Comment on above: Performed By: #### B MP #### [facility] [address] [place] [address] Dr. Kelly Mukherjee Calcium [Mass/Vol] 9.0 mg/dL Normal 8.5-10.1 [facility] Comment on above: Performed By: #### B MP #### [facility] [address] [place] [address] Dr. Kelly Mukherjee Chloride [Moles/Vol] 106 mmol/L Normal 98-107 [facility] Comment on above: Performed By: #### B MP #### [facility] [address] [place] [address] Dr. Kelly Mukherjee CO2 [Moles/Vol] 27.2 mmol/L Normal 21.0-32.0 [facility] Comment on above: Performed By: #### B MP #### [facility] [address] [address] [address] Kelly Mukherjee Creatinine [Mass/Vol] 0.98 mg/dL Normal 0.70-1.30 [facility] Comment on above: Performed By: #### B MP #### [facility] [address] [address] [address] Kelly Mukherjee EGFR-AF AZERBAIJANI >60 Normal >=60 [facility] Comment on above: Performed By: #### B MP #### [facility] [address] [place] [address] Dr. Kelly Mukherjee EGFR-NON AF AZERBAIJANI >60 Normal >=60 [facility] Comment on above: Performed By: #### B MP #### [facility] [address] [place] [address] Dr. Kelly Mukherjee Glucose [Mass/Vol] 146 mg/dL Critically high 74-106 [facility] Comment on above: Performed By: #### B MP #### [facility] [address] [place] [address] Dr. Kelly Mukherjee Potassium [Moles/Vol] 4.1 mmol/L Normal 3.5-5.1 [facility] Comment on above: Performed By: #### B MP #### [facility] [address] [place] [address] Dr. Kelly Mukherjee Sodium [Moles/Vol] 142 mmol/L Normal 136-145 [facility] Comment on above: Performed By: #### B MP #### [facility] [address] [address] [address] Kelly Mukherjee Urea nitrogen [Mass/Vol] 24.0 mg/dL Critically high 7.0-18 .0 [facility] Comment on above: Performed By: #### B MP #### [facility] [address] [place] [address] Dr. Kelly Mukherjee Urea nitrogen/Creatinine [Mass ratio] 24.5 mg/mg Normal [facility] Comment on above: Performed By: #### B MP #### [facility] [address] [place] [address] Dr. Kelly Mukherjee PROTIMEon 10-04-2022 INR Coag (PPP) [Relative time] 1.06 {INR} Normal [facility] Comment on above: Performed By: #### C VDTBH #### [facility] [address] [place] [address] Dr. Kelly Mukherjee INR GUIDELINES SEE BELOW Normal [facility] Comment on above: Result Comment: JULIANA RED INR: 2.0 - 3.0 CONDITIONS NOT LISTED BELOW 2.5 - 3.5 FOR PROSTHETIC HEART VALVE REPLACEMENT 2.5 - 3.5 RECURRENT THROMBOSIS Performed By: #### C VDTBH #### [facility] [address] [place] [address] Dr. Kelly Mukherjee PT Coag (PPP) [Time] 11.4 s Normal 9.0-11.6 [facility] Comment on above: Performed By: #### C VDTBH #### [facility] [address] [place] [address] Dr. Kelly Mukherjee PTTon 10-04-2022 aPTT Coag (Bld) [Time] 24.5 s Normal 22.3-36.2 [facility] Comment on above: Performed By: #### C VDTBH #### [facility] [address] [place] [address] Dr. Kelly Mukherjee TROPONIN, HIGH SENSITIVITYon 10-04-2022 HSTROP 7.1 pg/mL Normal 4.0-76.1 [facility] Comment on above: Result Comment: CUT- OFF POINTS HAVE BEEN ESTABLISHED BASED ON THE FOURTH UNIVERSAL DEFINITIONS OF MYOCARDIAL INFARCTION. THE UPPER REFERENCE LIMIT (URL) OF TROPONIN, DEFINED THE 99TH PERCENTILE OF cTnI DISTRIBUTION IN A REFERENCE POPULATION, HAS BEEN CONFIRMED THE DECISION THRESHOLD FOR AR DIAGNOSIS. Performed By: #### C VDTBH #### [facility] [address] [place] [address] Dr. Kelly Mukherjee XR CHEST 1 Von [...] by: SYLVESTER BARBOUR Date: 2022-10-04 15:31 Normal [facility] 09-01[facility]2022 [facility] ([facility] ---- BRIAN GOULD ([id number]) 1945 M Date Time Provider Department 09/01/22 [...] Fully Assessed Reason for Visit: Care Coordination [2722] Cmt: Lab Results Prescriptions as of 09/01/2022 [...] Status:Closed by ROLANDO BOWEN on 09/01/22 Normal [facility] CBC W Auto Differential pane l (Bld)on 08-30-2022 Basophils (Bld) [#/Vol] 10*3/uL Normal <0.11 [facility] Comment on above: Order Comment: Speci men Type: BLOOD SPECIMEN Ordering Facility: [facility] Address: [address] [place] [phone] Performed By: #### 5 7021-8 #### [facility] CLIA [id number] [address] [place] [address] Basophils/100 WBC (Bld) 0.5 % Normal [facility] Comment on above: Order Comment: Speci men Type: BLOOD SPECIMEN Ordering Facility: [facility] Address: [address] [place] [address] Performed By: #### 5 7021-8 #### [facility] CLIA [id number] [address] [place] [address] Differential cell count method Nom (Bld) Auto Normal [facility] Comment on above: Order Comment: Speci men Type: BLOOD SPECIMEN Ordering Facility: [facility] Address: [address] [place] [address] Performed By: #### 5 7021-8 #### [facility] CLIA [id number] [address] [place] [address] Eosinophils (Bld) [#/Vol] 0.08 10*3/uL Normal <0.46 [facility] Comment on above: Order Comment: Speci men Type: BLOOD SPECIMEN Ordering Facility: [facility] Address: [address] [place] [address] Performed By: #### 5 7021-8 #### [facility] CLIA [id number] [address] [place] [address] Eosinophils/100 WBC (Bld) 2.1 % Normal [facility] Comment on above: Order Comment: Speci men Type: BLOOD SPECIMEN Ordering Facility: [facility] Address: [address] [place] [address] Performed By: #### 5 7021-8 #### [facility] CLIA [id number] [address] [place] [address] Erythrocyte distribution width (RBC) [Ratio] 15.9 % High 11.5-15.0 [facility] Comment on above: Order Comment: Speci men Type: BLOOD SPECIMEN Ordering Facility: [facility] Address: [address] [address] Performed By: #### 5 7021-8 #### [facility] CLIA [id number] [address] [place] [address] Hematocrit (Bld) [Volume fraction] 33.5 % Low 39.0-51.0 [facility] Comment on above: Order Comment: Speci men Type: BLOOD SPECIMEN Ordering Facility: [facility] Address: [address] [address] Performed By: #### 5 7021-8 #### [facility] CLIA [id number] [address] [place] [address] Hemoglobin (Bld) [Mass/Vol] 11.4 g/dL Low 13.0-17.0 [facility] Comment on above: Order Comment: Speci men Type: BLOOD SPECIMEN Ordering Facility: [facility] Address: [address] [place] [address] Performed By: #### 5 7021-8 #### [facility] CLIA [id number] [address] [place] [address] Immature granulocytes (Bld) [#/Vol] 10*3/uL Normal <0.10 [facility] Comment on above: Order Comment: Speci men Type: BLOOD SPECIMEN Ordering Facility: [facility] Address: [address] [address] Performed By: #### 5 7021-8 #### [facility] CLIA [id number] [address] [place] [address] Immature granulocytes/100 WBC (Bld) 0.3 % Normal [facility] Comment on above: Order Comment: Speci men Type: BLOOD SPECIMEN Ordering Facility: [facility] Address: [address] [address] Performed By: #### 5 7021-8 #### [facility] CLIA [id number] [address] [place] [address] Lymphocytes (Bld) [#/Vol] 0.60 10*3/uL Low 1.00-4.0 0 [facility] Comment on above: Order Comment: Speci men Type: BLOOD SPECIMEN Ordering Facility: [facility] Address: [address] [address] Performed By: #### 5 7021-8 #### [facility] CLIA [id number] [address] [place] [address] Lymphocytes/100 WBC (Bld) 16.1 % Normal [facility] Comment on above: Order Comment: Speci men Type: BLOOD SPECIMEN Ordering Facility: [facility] Address: [address] [address] Performed By: #### 5 7021-8 #### [facility] CLIA [id number] [address] [place] [address] MCH (RBC) [Entitic mass] 33.3 pg Normal 26.0-34.0 [facility] Comment on above: Order Comment: Speci men Type: BLOOD SPECIMEN Ordering Facility: [facility] Address: [address] [address] Performed By: #### 5 7021-8 #### [facility] CLIA [id number] [address] [place] [address] MCHC (RBC) [Mass/Vol] 34.0 g/dL Normal 30.5-36.0 [facility] Comment on above: Order Comment: Speci men Type: BLOOD SPECIMEN Ordering Facility: [facility] Address: [address] [address] Performed By: #### 5 7021-8 #### [facility] CLIA [id number] [address] [place] [address] MCV (RBC) [Entitic vol] 98.0 fL Normal 80.0-100.0 [facility] Comment on above: Order Comment: Speci men Type: BLOOD SPECIMEN Ordering Facility: [facility] Address: [address] [address] Performed By: #### 5 7021-8 #### [facility] CLIA [id number] [address] [place] [address] Monocytes (Bld) [#/Vol] 0.26 10*3/uL Normal <0.87 [facility] Comment on above: Order Comment: Speci men Type: BLOOD SPECIMEN Ordering Facility: [facility] Address: [address] [place] [address] Performed By: #### 5 7021-8 #### [facility] CLIA [id number] [address] [place] [address] Monocytes/100 WBC (Bld) 7.0 % Normal [facility] [place] [facility] Comment on above: Order Comment: Speci men Type: BLOOD SPECIMEN Ordering Facility: [facility] Address: [address] [place] [address] Performed By: #### 5 7021-8 #### [facility] CLIA [id number] [address] [place] [address] Neutrophils (Bld) [#/Vol] 2.76 10*3/uL Normal 1.45-7.5 0 [facility] Comment on above: Order Comment: Speci men Type: BLOOD SPECIMEN Ordering Facility: [facility] Address: [address] [place] [address] Performed By: #### 5 7021-8 #### [facility] CLIA [id number] [address] [place] [address] Neutrophils/100 WBC (Bld) 74.0 % Normal [facility] Comment on above: Order Comment: Speci men Type: BLOOD SPECIMEN Ordering Facility: [facility] Address: [address] [place] [address] Performed By: #### 5 7021-8 #### [facility] CLIA [id number] [address] [place] [address] Nucleated RBC (Bld) [#/Vol] 10*3/uL Normal <0.01 [facility] Comment on above: Order Comment: Speci men Type: BLOOD SPECIMEN Ordering Facility: [facility] Address: [address] [address] Performed By: #### 5 7021-8 #### [facility] CLIA [id number] [address] [place] [address] Nucleated RBC/100 WBC (Bld) [Ratio] 0.0 /100 WBC Normal [facility] Comment on above: Order Comment: Speci men Type: BLOOD SPECIMEN Ordering Facility: [facility] Address: [address] [place] [address] Performed By: #### 5 7021-8 #### [facility] CLIA [id number] [address] [place] [address] Platelet mean volume (Bld) [Entitic vol] 9.7 fL Normal 9.0-12.7 [facility] Comment on above: Order Comment: Speci men Type: BLOOD SPECIMEN Ordering Facility: [facility] Address: [address] [place] [address] Performed By: #### 5 7021-8 #### [facility] CLIA [id number] [address] [place] [address] Platelets (Bld) [#/Vol] 81 10*3/uL Low 150-400 C [facility] Comment on above: Order Comment: Speci men Type: BLOOD SPECIMEN Ordering Facility: [facility] Address: [address] [place] [address] [facility] Performed By: #### 5 7021-8 #### [facility] CLIA [id number] [address] [place] [address] RBC (Bld) [#/Vol] 3.42 10*6/uL Low 4.20-6.00 [facility] Comment on above: Order Comment: Speci men Type: BLOOD SPECIMEN Ordering Facility: [facility] Address: [address] [place] [address] Performed By: #### 5 7021-8 #### [facility] CLIA [id number] [address] [place] [address] WBC (Bld) [#/Vol] 3.73 10*3/uL Normal 3.70-11.00 [facility] Comment on above: Order Comment: Speci men Type: BLOOD SPECIMEN Ordering Facility: [facility] Address: [address] [place] [phone] Performed By: #### 5 7021-8 #### [facility] CLIA [id number] [address] [place] [address] Basophils (Bld) [#/Vol] <0.11 k/uL [facility] Basophils/100 WBC (Bld) 0.5 % C [facility] Differential cell count method Nom (Bld) Auto [facility] Eosinophils (Bld) [#/Vol] 0.08 10*3/uL <0.46 k/ uL [facility] Eosinophils/100 WBC (Bld) 2.1 % [facility] Erythrocyte distribution width (RBC) [Ratio] 15.9 % High 11.5 - 15.0 % [facility] Hematocrit (Bld) [Volume fraction] 33.5 % Low 39.0 - 51.0 % [facility] Hemoglobin (Bld) [Mass/Vol] 11.4 g/dL Low 13.0 - 17.0 g/dL [facility] Immature granulocytes (Bld) [#/Vol] <0.10 k/uL [facility] Immature granulocytes/100 WBC (Bld) 0.3 % [facility] Lymphocytes (Bld) [#/Vol] 0.60 10*3/uL Low 1. 00 - 4.00 k/uL [facility] Lymphocytes/100 WBC (Bld) 16.1 % [facility] MCH (RBC) [Entitic mass] 33.3 pg 26. 0 - 34.0 pg [facility] MCHC (RBC) [Mass/Vol] 34.0 g/dL 30.5 - 36.0 g/dL [facility] MCV (RBC) [Entitic vol] 98.0 fL 80.0 - 100.0 fL [facility] Monocytes (Bld) [#/Vol] 0.26 10*3/uL <0.87 k/uL [facility] Monocytes/100 WBC (Bld) 7.0 % [facility] Neutrophils (Bld) [#/Vol] 2.76 10*3/uL 1. 45 - 7.50 k/uL [facility] Neutrophils/100 WBC (Bld) 74.0 % [facility] Nucleated RBC (Bld) [#/Vol] <0.01 k/uL [facility] Nucleated RBC/100 WBC (Bld) [Ratio] 0.0 /100 WBC [facility] Platelet mean volume (Bld) [Entitic vol] 9.7 fL 9.0 - 12.7 fL [facility] Platelets (Bld) [#/Vol] 81 10*3/uL Low 150 - 400 k/uL [facility] RBC (Bld) [#/Vol] 3.42 10*6/uL Low 4.20 - 6.0 0 m/uL [facility] WBC (Bld) [#/Vol] 3.73 10*3/uL 3.70 - 11. 00 k/uL [facility] CNOVSPon 08-30-2022 CNOVSP Visit (SP) Office ([place]) ---- BRIAN GOULD ([id number]) 1945 M Date Time Provider Department 08/30/22 3:00 PM TRICIA CRESPO During your visit today, we recorded the following information about you: Temperature Pulse Respiration Blood pressure 97.7 degrees 59/minute 18/minute 158/59 Weight Height 73.6 kg 1.703 m Tricia Crespo MD 08/30/2022 3:09 PM Signed Patient: Brian Gould Location: [facility] : 1945 Attending Physician: Dr. Vazquez Quinonez [...] distress, pl (more content not included)... Normal [facility] Comprehensive metabolic 2000 panelon 08-30-2022 Albumin [Mass/Vol] 4.5 g/dL Normal 3.9-4.9 [facility] Comment on above: Order Comment: Speci men Type: BLOOD SPECIMEN Ordering Facility: [facility] Address: [address] [place] [phone] Performed By: #### 2 532-0, 82079-3 #### [facility] CLIA [id number] [address] [place] [address] ALP [Catalytic activity/Vol] 86 U/L Normal 38-113 [facility] Comment on above: Order Comment: Speci men Type: BLOOD SPECIMEN Ordering Facility: [facility] Address: [address] [address] Performed By: #### 2 532-0, 44408-7 #### [facility] CLIA [id number] [address] [place] [address] ALT [Catalytic activity/Vol] 15 U/L Normal 10-54 [facility] Comment on above: Order Comment: Speci men Type: BLOOD SPECIMEN Ordering Facility: [facility] Address: [address] [place] [address] Performed By: #### 2 532-0, #### [facility] CLIA [id number] [address] [place] [address] Anion gap [Moles/Vol] 8 mmol/L Low 9-18 [facility] Comment on above: Order Comment: Speci men Type: BLOOD SPECIMEN Ordering Facility: [facility] Address: [address] [place] [address] Performed By: #### 2 532-0, 61601-2 #### [facility] CLIA [id number] [address] [place] [address] AST [Catalytic activity/Vol] 16 U/L Normal 14-40 [facility] Comment on above: Order Comment: Speci men Type: BLOOD SPECIMEN Ordering Facility: [facility] Address: [address] [address] Performed By: #### 2 532-0, 35892-9 #### [facility] CLIA [id number] [address] [place] [address] Bilirubin [Mass/Vol] 0.5 mg/dL Normal 0.2-1.3 [facility] Comment on above: Order Comment: Speci men Type: BLOOD SPECIMEN Ordering Facility: [facility] Address: [address] [place] [address], [place] [address] Performed By: #### 2 532-0, #### [facility] CLIA [id number] [address] [place] [address] Calcium [Mass/Vol] 9.5 mg/dL Normal 8.5-10.2 [facility] Comment on above: Order Comment: Speci men Type: BLOOD SPECIMEN Ordering Facility: [facility] Address: [address] [address] Performed By: #### 2 532-0, #### [facility] CLIA [id number] [address] [place] [address] Chloride [Moles/Vol] 110 mmol/L High 97-105 [facility] Comment on above: Order Comment: Speci men Type: BLOOD SPECIMEN Ordering Facility: [facility] Address: [address] [address] Performed By: #### 2 532-0, #### [facility] CLIA [id number] [address] [place] [address] CO2 [Moles/Vol] 30 mmol/L Normal 22-30 [facility] Comment on above: Order Comment: Speci men Type: BLOOD SPECIMEN Ordering Facility: [facility] Address: [address] [address] Performed By: #### 2 532-0, #### [facility] CLIA [id number] [address] [place] [address] Creatinine [Mass/Vol] 0.93 mg/dL Normal 0.73-1.22 [facility] Comment on above: Order Comment: Speci men Type: BLOOD SPECIMEN Ordering Facility: [facility] Address: [address] [address] Performed By: #### 2 532-0, #### [facility] CLIA [id number] [address] [place] [address] ESTIMATED GLOMERULAR FILTRATION RATE 85 mL/min/1.73m??? Normal >=60 [facility] Comment on above: Order Comment: Helio helton Type: BLOOD SPECIMEN Ordering Facility: [facility] Address: [place] [address] Result Comment: Arelis mated Glomerular Filtration Rate [...] actual GFR. Performed By: #### 2 532-0, 61179-4 #### [facility] CLIA [id number] [address] [place] [address] Glucose [Mass/Vol] 86 mg/dL Normal 74-99 [facility] Comment on above: Order Comment: Helio helton Type: BLOOD SPECIMEN Ordering Facility: [facility] Address: [place] [address] Result Comment: The [place] [employer] (ADA) provides guidance for cutoff [...] Standards of Medical Care in Diabetes 2016, [place] [employer]. Diabetes Care. 2016.39(Suppl 1). Performed By: #### 2 532-0, 88753-7 #### [facility] CLIA [id number] [address] [place] [address] Potassium [Moles/Vol] 4.3 mmol/L Normal 3.7-5.1 [facility] Comment on above: Order Comment: Helio helton Type: BLOOD SPECIMEN Ordering Facility: [facility] Address: [address] [address] Performed By: #### 2 532-0, 74069-7 #### [facility] CLIA [id number] [address] [place] [address] Protein [Mass/Vol] 6.4 g/dL Normal 6.3-8.0 [facility] Comment on above: Order Comment: Speci men Type: BLOOD SPECIMEN Ordering Facility: [facility] Address: [address] [address] Performed By: #### 2 532-0, #### [facility] CLIA [id number] [address] [place] [address] Sodium [Moles/Vol] 148 mmol/L High 136-144 [facility] Comment on above: Order Comment: Speci men Type: BLOOD SPECIMEN Ordering Facility: [facility] Address: [address] [address] Performed By: #### 2 532-0, #### [facility] CLIA [id number] [address] [place] [address] Urea nitrogen [Mass/Vol] 24 mg/dL Normal 9-24 [facility] Comment on above: Order Comment: Speci men Type: BLOOD SPECIMEN Ordering Facility: [facility] Address: [address] [address] Performed By: #### 2 532-0, #### [facility] CLIA [id number] [address] [place] [address] Albumin [Mass/Vol] 4.5 g/dL 3.9 - 4.9 g/dL [facility] ALP [Catalytic activity/Vol] 86 U/L 38 - 113 U/L [facility] ALT [Catalytic activity/Vol] 15 U/L 10 - 54 U/L [facility] Anion gap [Moles/Vol] 8 mmol/L Low 9 - 18 mmol/L [facility] AST [Catalytic activity/Vol] 16 U/L 14 - 40 U/L [facility] Bilirubin [Mass/Vol] 0.5 mg/dL 0.2 - 1 .3 mg/dL [facility] Calcium [Mass/Vol] 9.5 mg/dL 8.5 - 10. 2 mg/dL [facility] Chloride [Moles/Vol] 110 mmol/L High 97 - 10 5 mmol/L [facility] CO2 [Moles/Vol] 30 mmol/L 22 - 30 mmol/L [facility] Creatinine [Mass/Vol] 0.93 mg/dL 0.73 - 1.22 mg/dL [facility] Estimated Glomerular Filtration Rate 85 mL/min/1.73m >=60 mL/min/1.73m [facility] Glucose [Mass/Vol] 86 mg/dL 74 - 99 mg/dL [facility] Potassium [Moles/Vol] 4.3 mmol/L 3.7 - 5.1 mmol/L [facility] Protein [Mass/Vol] 6.4 g/dL 6.3 - 8.0 g/dL [facility] Sodium [Moles/Vol] 148 mmol/L High 136 - 144 mmol/L [facility] Urea nitrogen [Mass/Vol] 24 mg/dL 9 - 24 mg/d L [facility] Ferritin SerPl-mCncon 2021 Ferritin [Mass/Vol] 121.0 ng/mL Normal 30.3-565.7 [facility] Comment on above: Order Comment: Speci men Type: BLOOD SPECIMEN Ordering Facility: [facility] Address: [address] [place] [address] Performed By: #### 5 0190-8, 2132-06, 2276-01 #### [facility] CLIA [id number] [address] [place] [address] STATES OF [facility] Iron and Iron binding capaci ty panelon 08-30-2022 Iron [Mass/Vol] 100 ug/dL Normal 41-186 [facility] Comment on above: Order Comment: Speci men Type: BLOOD SPECIMEN Ordering Facility: [facility] Address: [address] [place] [address] Performed By: #### 5 0190-8, 2132-06, 2276-01 #### [facility] CLIA [id number] [address] [place] [address] [place] Iron binding capacity [Mass/Vol] 287 ug/dL Normal 232-386 [facility] Comment on above: Order Comment: Speci men Type: BLOOD SPECIMEN Ordering Facility: [facility] Address: [address] [place] [address] Performed By: #### 5 0190-8, 2132-06, 2276-01 #### [facility] CLIA [id number] [address] [place] [address] [place] Iron/TIBC [Molar ratio] 34.8 % Normal 15.0-57.0 [facility] Comment on above: Order Comment: Speci men Type: BLOOD SPECIMEN Ordering Facility: [facility] Address: [address] [place] [address] Performed By: #### 5 0190-8, 2132-06, 2276-01 #### [facility] CLIA [id number] [address] [place] [address] [place] LD LACTATE DEHYDROon 022 LDH [Catalytic activity/Vol] 180 U/L 135 - 225 U/L [facility] LDH SerPl-cCncon 08-30-2022 LDH [Catalytic activity/Vol] 180 U/L Normal 135-225 [facility] Comment on above: Order Comment: Speci men Type: BLOOD SPECIMEN Ordering Facility: [facility] Address: [address] [place], [place] [address] Performed By: #### 2 532-0, 82999-7 #### [facility] CLIA [id number] [address] [place] [address] Vit B12 SerPl-mCncon 022 Cobalamin (Vitamin B12) [Mass/Vol] 468 pg/mL Normal 232-1245 [facility] Comment on above: Order Comment: Speci men Type: BLOOD SPECIMEN Ordering Facility: [facility] Address: [address] [place], [place] [address] Performed By: #### 5 0190-8, 2132-9, 2276-4 #### [facility] CLIA [id number] [address] [place] [address] [place] CULTURE BLOODon 05-08-2022 Microscopic [...] F Oxacillin <=0.25 S F Normal [facility] Comment on above: Performed By: #### P OCGLUC #### [facility] [address] [place] [address] Dr. Kelly Mukherjee BLOOD CULTURE ID PANELon A. baumannii Not detected Normal NOT DETECTED [facility] Comment on above: Performed By: #### B CID2 #### [facility] [address] [place] [address] Dr. Kelly Mukherjee Bacteriodes fragilis Not detected Normal NOT DETECTED [facility] Comment on above: Performed By: #### B CID2 #### [facility] [address] [place] [address] Dr. Kelly Mukherjee BCID CONTROLS PASSED Normal [facility] Comment on above: Performed By: #### B CID2 #### [facility] [address] [place] [address] Dr. Kelly Mukherjee BCIDBTHD BLOOD CULTURE BOTTLE INFORMATION Normal [facility] Comment on above: Performed By: #### B CID2 #### [facility] [address] [place] [address] Dr. Kelly Mukherjee BCIDHD1 ANTIMICROBIAL RESISTANCE GENES Normal [facility] Comment on above: Performed By: #### B CID2 #### [facility] [address] [place] [address] Dr. Kelly Mukherjee BCIDHD2 SEE BELOW Normal [facility] Comment on above: Result Comment: Note : Antimicrobial resitance can occur via multiple mechanisms. A Not Detected result for the [employer] antomicrobial resistance gene assays does not indicate antimicrobial susceptibility. Subculturing is required for species identification and susceptibility testing of isolates. Performed By: #### B CID2 #### [facility] [address] [place] [address] Dr. Kelly Mukherjee BCIDHD3 Positive [facility] Comment on above: Performed By: #### B CID2 #### [facility] [address] [place] [address] Dr. Kelly Mukherjee BCIDHD4 Negative Normal [facility] Comment on above: Performed By: #### B CID2 #### [facility] [address] [place] [address] Dr. Kelly Mukherjee BCIDHD5 YEAST Normal [facility] Comment on above: Performed By: #### B CID2 #### [facility] [address] [place] [address] Dr. Kelly Mukherjee Bottle Set: Set 2 [facility] Comment on above: Performed By: #### B CID2 #### [facility] [address] [place] [address] Dr. Kelly Mukherjee Bottle: Aerobic Normal [facility] Comment on above: Performed By: #### B CID2 #### [facility] [address] [place] [address] Dr. Kelly Mukherjee C. neoformans/gattii Not detected Normal NOT DETECTED [facility] Comment on above: Performed By: #### B CID2 #### [facility] [address] [place] [address] Dr. Kelly Mukherjee Morenita albicans Not detected Normal NOT DETECTED [facility] Comment on above: Performed By: #### B CID2 #### [facility] [address] [address] [address] Kelly Mukherjee Morenita auris Not detected Normal NOT DETECTED [facility] Comment on above: Performed By: #### B CID2 #### [facility] [address] [address] [address] Kelly Mukherjee Morenita glabrata Not detected Normal NOT DETECTED [facility] Comment on above: Performed By: #### B CID2 #### [facility] [address] [place] [address] Dr. Kelly Mukherjee Morenita Krusei Not detected Normal NOT DETECTED [facility] Comment on above: Performed By: #### B CID2 #### [facility] [address] [place] [address] Dr. Kelly Mukherjee Morenita Parapsilosis Not detected Normal NOT DETECTED [facility] Comment on above: Performed By: #### B CID2 #### [facility] [address] [place] [address] Dr. Kelly Mukherjee Mroenita Tropicalis Not detected Normal NOT DETECTED [facility] Comment on above: Performed By: #### B CID2 #### [facility] [address] [place] [address] Dr. Kelly Mukherjee CTX-M Resistant Gene Not Applicable Normal NOT DETECTE D [facility] Comment on above: Performed By: #### B CID2 #### [facility] [address] [place] [address] Dr. Kelly Mukherjee E. Cloacae complex Not detected Normal NOT DETECTED [facility] Comment on above: Performed By: #### B CID2 #### [facility] [address] [place] [address] Dr. Kelly Mukherjee E. faecalis Not detected Normal NOT DETECTED [facility] Comment on above: Performed By: #### B CID2 #### [facility] [address] [place] [address] Dr. Kelly Mukherjee E. faecium Not detected Normal NOT DETECTED [facility] Comment on above: Performed By: #### B CID2 #### [facility] [address] [place] [address] Dr. Kelly Mukherjee Enterobacteriaceae Not detected Normal NOT DETECTED [facility] Comment on above: Performed By: #### B CID2 #### [facility] [address] [place] [address] Dr. Kelly Mukherjee Escherichia coli Not detected Normal NOT DETECTED [facility] Comment on above: Performed By: #### B CID2 #### [facility] [address] [place] [address] Dr. Kelly Mukherjee H. influenzae Not detected Normal NOT DETECTED [facility] Comment on above: Performed By: #### B CID2 #### [facility] [address] [place] [address] Dr. Kelly Mukherjee IMP Resistant Gene Not Applicable Normal NOT DETECTED [facility] Comment on above: Performed By: #### B CID2 #### [facility] [address] [place] [address] Dr. Kelly Mukherjee K. oxytoca Not detected Normal NOT DETECTED [facility] Comment on above: Performed By: #### B CID2 #### [facility] [address] [place] [address] Dr. Kelly Mukherjee K. pneumoniae Not detected Normal NOT DETECTED [facility] Comment on above: Performed By: #### B CID2 #### [facility] [address] [place] [address] Dr. Kelly Mukherjee Klebsiella aerogenes Not detected Normal NOT DETECTED [facility] Comment on above: Performed By: #### B CID2 #### [facility] [address] [place] [address] Dr. Kelly Mukherjee KPC Resistant Gene Not Applicable Normal NOT DETECTED [facility] Comment on above: Performed By: #### B CID2 #### [facility] [address] [place] [address] Dr. Kelly Mukherjee List. monocytogenes Not detected Normal NOT DETECTED [facility] Comment on above: Performed By: #### B CID2 #### [facility] [address] [place] [address] Dr. Kelly Mukherjee Mcr-1 Resistant Gene Not Applicable Normal NOT DETECTE D [facility] Comment on above: Performed By: #### B CID2 #### [facility] [address] [place] [address] Dr. Kelly Mukherjee mecA/C Not Applicable Normal NOT DETECTED [facility] Comment on above: Performed By: #### B CID2 #### [facility] [address] [place] [address] Dr. Kelly Mukherjee mecA/C MREJ Not Applicable Normal NOT DETECTED [facility] Comment on above: Performed By: #### B CID2 #### [facility] [address] [place] [address] Dr. Kelly Mukherjee N. meningitidis Not detected Normal NOT DETECTED [facility] Comment on above: Performed By: #### B CID2 #### [facility] [address] [place] [address] Dr. Kelly Mukherjee NDM Resistant Gene Not Applicable Normal NOT DETECTED [facility] Comment on above: Performed By: #### B CID2 #### [facility] [address] [place] [address] Dr. Kelly Mukherjee Oxa-48-like Not Applicable Normal NOT DETECTED [facility] Comment on above: Performed By: #### B CID2 #### [facility] [address] [place] [address] Dr. Kelly Mukherjee Proteus Not detected Normal NOT DETECTED [facility] Comment on above: Performed By: #### B CID2 #### [facility] [address] [place] [address] Dr. Kelly Mukherjee Pseud. aeruginosa Not detected Normal NOT DETECTED [facility] Comment on above: Performed By: #### B CID2 #### [facility] [address] [place] [address] Dr. Kelly Mukherjee S. maltophilia Not detected Normal NOT DETECTED [facility] Comment on above: Performed By: #### B CID2 #### [facility] [address] [place] [address] Dr. Kelly Mukherjee Salmonella Not detected Normal NOT DETECTED [facility] Comment on above: Performed By: #### B CID2 #### [facility] [address] [place] [address] Dr. Kelly Mukherjee Seratia marcescens Not detected Normal NOT DETECTED [facility] Comment on above: Performed By: #### B CID2 #### [facility] [address] [place] [address] Dr. Kelly Mukherjee Site: Lt Hand Normal [facility] Comment on above: Performed By: #### B CID2 #### [facility] [address] [address] [address] Kelly Mukherjee Staph. aureus Not detected Normal NOT DETECTED [facility] Comment on above: Performed By: #### B CID2 #### [facility] [address] [place] [address] Dr. Kelly Mukherjee Staph. epidermidis Not detected Normal NOT DETECTED [facility] Comment on above: Performed By: #### B CID2 #### [facility] [address] [place] [address] Dr. Kelly Mukherjee Staph. lugdunensis Not detected Normal NOT DETECTED [facility] Comment on above: Performed By: #### B CID2 #### [facility] [address] [place] [address] Dr. Kelly Mukherjee Staphylococcus Detected Abnormal NOT DETECTED [facility] Comment on above: Performed By: #### B CID2 #### [facility] [address] [place] [address] Dr. Kelly Mukherjee Strep. agalactiae Not detected Normal NOT DETECTED [facility] Comment on above: Performed By: #### B CID2 #### [facility] [address] [place] [address] Dr. Kelly Mukherjee Strep. pneumoniae Not detected Normal NOT DETECTED [facility] Comment on above: Performed By: #### B CID2 #### [facility] [address] [place] [address] Dr. Kelly Mukherjee Strep. pyogenes Not detected Normal NOT DETECTED [facility] Comment on above: Performed By: #### B CID2 #### [facility] [address] [place] [address] Dr. Kelly Mukherjee Streptococcus Not detected Normal NOT DETECTED [facility] Comment on above: Performed By: #### B CID2 #### [facility] [address] [place] [address] Dr. Kelly Schneider/Suraj Resist. Gene Not Applicable Normal NOT DETECTED [facility] Comment on above: Performed By: #### B CID2 #### [facility] [address] [place] [address] Dr. Kelly Mukherjee VIM Resistant Gene Not Applicable Normal NOT DETECTED [facility] Comment on above: Performed By: #### B CID2 #### [facility] [address] [place] [address] Dr. Kelly Mukherjee CBC AUTO DIFFon 05-03-2022 BASO # 0.0 103/ul Normal 0.0-0.1 [facility] Comment on above: Performed By: #### C BC #### [facility] [address] [place] [address] Dr. Kelly Mukherjee Basophils/100 WBC (Bld) 0.0 % Critically low 0.2-2.0 [facility] Comment on above: Performed By: #### C BC #### [facility] [address] [place] [address] Dr. Kelly Mukherjee EO # 0.0 103/ul Normal 0.0-0.7 [facility] Comment on above: Performed By: #### C BC #### [facility] [address] [place] [address] Dr. Kelly Mukherjee Eosinophils/100 WBC (Bld) 0.0 % Critically low 0.9-7. 0 [facility] Comment on above: Performed By: #### C BC #### [facility] [address] [place] [address] Dr. Kelly Mukherjee Erythrocyte distribution width (RBC) [Ratio] 15.5 % Critically high 11.0-15.0 [facility] Comment on above: Performed By: #### C BC #### [facility] [address] [place] [address] Dr. Kelly Mukherjee Hematocrit (Bld) [Volume fraction] 25.3 % Critically low 42.0-54.0 [facility] Comment on above: Performed By: #### C BC #### [facility] [address] [address] [address] Kelly Mukherjee Hemoglobin (Bld) [Mass/Vol] 8.8 g/dL Critically low 14.0-18.0 [facility] Comment on above: Performed By: #### C BC #### [facility] [address] [address] [address] Kelly Mukherjee IG # 0.00 10e3/ul Normal 0.00-0.03 [facility] Comment on above: Performed By: #### C BC #### [facility] [address] [place] [address] Dr. Kelly Mukherjee IG % 0.0 % Normal 0.0-0.5 [facility] Comment on above: Performed By: #### C BC #### [facility] [address] [place] [address] Dr. Kelly Mukherjee LYMPH # 0.2 103/ul Critically low 1.2-3.8 [facility] Comment on above: Performed By: #### C BC #### [facility] [address] [place] [address] Dr. Kelly Mukherjee Lymphocytes/100 WBC (Bld) 11.5 % Critically low 20.5-6 0.0 [facility] Comment on above: Performed By: #### C BC #### [facility] [address] [place] [address] Dr. Kelly Mukherjee MANUAL DIFF REQ NO Normal [facility] Comment on above: Performed By: #### C BC #### [facility] [address] [place] [address] Dr. Kelly Mukherjee MCH (RBC) [Entitic mass] 34.1 pg Critically high 25.9-3 4.0 [facility] Comment on above: Performed By: #### C BC #### [facility] [address] [place] [address] Dr. Kelly Mukherjee MCHC (RBC) [Mass/Vol] 34.8 g/dL Normal 29.9-35.2 [facility] Comment on above: Performed By: #### C BC #### [facility] [address] [address] [address] Kelly Mukherjee MCV (RBC) [Entitic vol] 98.1 fL Critically high 80.0-94 .0 [facility] Comment on above: Performed By: #### C BC #### [facility] [address] [address] [address] Kelly Mukherjee MONO # 0.2 103/ul Critically low 0.3-0.8 [facility] Comment on above: Performed By: #### C BC #### [facility] [address] [address] [address] Kelly Mukherjee Monocytes/100 WBC (Bld) 14.5 % Critically high 1.7-12. 0 [facility] Comment on above: Performed By: #### C BC #### [facility] [address] [address] [address] Kelly Mukherjee NEUT # 1.2 103/ul Critically low 1.4-6.5 [facility] Comment on above: Performed By: #### C BC #### [facility] [address] [address] [address] Kelly Mukherjee Neutrophils/100 WBC (Bld) 74.0 % Normal 43.0-75.0 [facility] Comment on above: Performed By: #### C BC #### [facility] [address] [address] [address] Kelly Mukherjee Platelet mean volume (Bld) [Entitic vol] 10.3 fL Normal 9.5-13.5 [facility] Comment on above: Performed By: #### C BC #### [facility] [address] [address] [address] Kelly Mukherjee PLT 59 103/ul Critically low 150-450 [facility] Comment on above: Performed By: #### C BC #### [facility] [address] [address] [address] Kelly Mukherjee RBC 2.58 106/ul Critically low 4.70-6.10 [facility] Comment on above: Performed By: #### C BC #### [facility] [address] [place] [address] Dr. Kelly Mukherjee WBC 1.7 103/ul Critically low 4.0-11.0 [facility] Comment on above: Performed By: #### C BC #### [facility] [address] [place] [address] Dr. Kelly Mukherjee CBC W MANUAL DIFFon 05-03-20 22 ATYPICAL LYMPH # Normal [facility] Comment on above: Performed By: #### C VDTBH #### [facility] [address] [place] [address] Dr. Kelly Mukherjee ATYPICAL LYMPH % Normal [facility] Comment on above: Performed By: #### C VDTBH #### [facility] [address] [place] [address] Dr. Kelly Mukherjee BAND # 0.0 103/ul Normal 0.0-0.3 [facility] Comment on above: Performed By: #### C VDTBH #### [facility] [address] [place] [address] Dr. Kelly Mukherjee BAND % 1 % Normal 0-5 [facility] Comment on above: Performed By: #### C VDTBH #### [facility] [address] [place] [address] Dr. Kelly Mukherjee BASOM # 0.00 103/ul Normal 0.00-0.10 [facility] Comment on above: Performed By: #### C VDTBH #### [facility] [address] [place] [address] Dr. Kelly Mukherjee BASOM % 0.0 % Critically low 0.2-2.0 [facility] Comment on above: Performed By: #### C VDTBH #### [facility] [address] [place] [address] Dr. Kelly Mukherjee BLAST # Normal [facility] Comment on above: Performed By: #### C VDTBH #### [facility] [address] [place] [address] Dr. Kelly Mukherjee BLAST % Normal [facility] Comment on above: Performed By: #### C VDTBH #### [facility] [address] [address] [address] Kelly Mukherjee CORRECTED WBC Normal 4.0-11.0 [facility] Comment on above: Performed By: #### C VDTBH #### [facility] [address] [address] [address] Kelly Mukherjee EOS # 0.00 103/ul Normal 0.00-0.70 [facility] Comment on above: Performed By: #### C VDTBH #### [facility] [address] [address] [address] Kelly Mukherjee EOS% 0.0 % Critically low 0.9-7.0 [facility] Comment on above: Performed By: #### C VDTBH #### [facility] [address] [place] [address] Dr. Kelly Mukherjee HCT 26.7 % Critically low 42.0-54.0 [facility] Comment on above: Performed By: #### C VDTBH #### [facility] [address] [address] [address] Kelly Mukherjee HGB 9.3 g/dl Critically low 14.0-18.0 [facility] Comment on above: Performed By: #### C VDTBH #### [facility] [address] [address] [address] Kelly Mukherjee LYMPHM # 0.21 103/ul Critically low 1.20-3.80 [facility] Comment on above: Performed By: #### C VDTBH #### [facility] [address] [address] [address] Kelly Mukherjee LYMPHM% 13.0 % Critically low 20.5-60.0 [facility] Comment on above: Performed By: #### C VDTBH #### [facility] [address] [address] [address] Kelly Mukherjee MCH 33.9 pg Normal 25.9-34.0 [facility] Comment on above: Performed By: #### C VDTBH #### [facility] [address] [place] [address] Dr. Kelly Mukherjee MCHC 34.8 g/dl Normal 29.9-35.2 [facility] Comment on above: Performed By: #### C VDTBH #### [facility] [address] [place] [address] Dr. Kelly Mukherjee MCV 97.4 fL Critically high 80.0-94.0 [facility] Comment on above: Performed By: #### C VDTBH #### [facility] [address] [place] [address] Dr. Kelly Mukherjee METAMYELOCYTE # Normal [facility] Comment on above: Performed By: #### C VDTBH #### [facility] [address] [place] [address] Dr. Kelly Mukherjee METAMYELOCYTE % Normal [facility] Comment on above: Performed By: #### C VDTBH #### [facility] [address] [place] [address] Dr. Kelly Mukherjee MONOM# 0.16 103/ul Critically low 0.30-0.80 [facility] Comment on above: Performed By: #### C VDTBH #### [facility] [address] [place] [address] Dr. Kelly Mukherjee MONOM% 10.0 % Normal 1.7-12.0 [facility] Comment on above: Performed By: #### C VDTBH #### [facility] [address] [place] [address] Dr. Kelly Mukherjee MPV 9.9 fL Normal 9.5-13.5 [facility] Comment on above: Performed By: #### C VDTBH #### [facility] [address] [place] [address] Dr. Kelly Mukherjee MYELOCYTE # Normal [facility] Comment on above: Performed By: #### C VDTBH #### [facility] [address] [place] [address] Dr. Kelly Mukherjee MYELOCYTE % Normal [facility] Comment on above: Performed By: #### C VDTBH #### [facility] [address] [address] [address] Kelly Mukherjee NRBC Normal [facility] Comment on above: Performed By: #### C VDTBH #### [facility] [address] [place] [address] Dr. Kelly Mukherjee PLT 61 103/ul Critically low 150-450 [facility] Comment on above: Performed By: #### C VDTBH #### [facility] [address] [address] [address] Kelly Mukherjee RBC 2.74 106/ul Critically low 4.70-6.10 [facility] Comment on above: Performed By: #### C VDTBH #### [facility] [address] [place] [address] Dr. Kelly Mukherjee RDW 15.6 % Critically high 11.0-15.0 [facility] Comment on above: Performed By: #### C VDTBH #### [facility] [address] [place] [address] Dr. Kelly Mukherjee SEG # 1.22 103/ul Critically low 1.40-6.50 [facility] Comment on above: Performed By: #### C VDTBH #### [facility] [address] [place] [address] Dr. Kelly Mukherjee SEG % 76.0 % Critically high 43.0-75.0 [facility] Comment on above: Performed By: #### C VDTBH #### [facility] [address] [place] [address] Dr. Kelly Mukherjee WBC 1.6 103/ul Critically low 4.0-11.0 [facility] Comment on above: Performed By: #### C VDTBH #### [facility] [address] [place] [address] HEAD WO CONon [...] by: KIA JENNINGS Date: 2022-05-03 00:00 Normal [facility] CULTURE BLOODon 05-03-2022 Microscopic examination of blood, culture Culture Observations: NO GROWTH AT 5 DAYS. Normal [facility] Comment on above: Performed By: #### P OCGLUC #### [facility] [address] [place] [address] Dr. Kelly Mukherjee CULTURE URINEon 05-03-2022 CULTURE URINE Culture Observations: HEAVY GROWTH OF MIXED SKIN TERE. NO POTENTIAL PATHOGENS SEEN. Normal [facility] Comment on above: Performed By: #### P OCGLUC #### [facility] [address] [address] [address] Kelly Mukherjee Covid-19 PCR (CVDTB)on 04-08 SARS-CoV-2 (COVID-19) RNA ABIBMOLA+probe Ql (Unsp spec) Detected Critically abnormal NOT DETECTED [facility] Comment on above: Result Comment: This test is not yet approved or cleared by the [place] FDA. When there are no FDA-approved or cleared tests available, and other criteria are met, FDA can make tests available under an emergency access mechanism called an Emergency Use Authorization (EUA). The EUA for this test is supported by the [place] of Health and Human Service's declaration that [...] used). Performed By: #### C VDTBH #### [facility] [address] [place] [address] Dr. Kelly ALLEN URINE PROFILEon 2 Bilirubin Ql (U) Negative Normal NEGATIVE [facility] Comment on above: Performed By: #### CAITY CABRALRO #### [facility] [address] [place] [address] Dr. Kelly Mukherjee Clarity (U) CLEAR Normal CLEAR [facility] Comment on above: Performed By: #### RACHELL CABRALICRO #### [facility] [address] [place] [address] Dr. Kelly Mukherjee Color (U) YELLOW Normal YELLOW [facility] Comment on above: Performed By: #### CAITY CABRALRO #### [facility] [address] [place] [address] Dr. Kelly CARTER A micrscopic examination will be performed if indicated. Normal [facility] Comment on above: Performed By: #### RACHELL CABRALICRO #### [facility] [address] [place] [address] Dr. Kelly Mukherjee Glucose Ql (U) 100 mg/dl Abnormal NEGATIVE [facility] Comment on above: Performed By: #### CAITY CABRALRO #### [facility] [address] [place] [address] Dr. Kelly Mukherjee Hemoglobin Ql (U) TRACE-INTACT Abnormal NEGATIVE [facility] Comment on above: Performed By: #### RACHELL ACBRALICRO #### [facility] [address] [place] [address] Dr. Kelly Mukherjee Ketones Ql (U) Negative Normal NEGATIVE [facility] Comment on above: Performed By: #### RACHELL CABRALICRO #### [facility] [address] [place] [address] Dr. Kelly Mukherjee LEUKOCYTES Negative Normal NEGATIVE [facility] Comment on above: Performed By: #### Javy VAZQUEZ UMICRO #### [facility] [address] [place] [address] Dr. Kelly Mukherjee Nitrite Ql (U) Positive Abnormal NEGATIVE [facility] Comment on above: Performed By: #### RACHELL CABRALICRO #### [facility] [address] [place] [address] Dr. Kelly Mukherjee pH (U) 5.5 [pH] Normal 5-9 [facility] Comment on above: Performed By: #### Javy VAZQUEZ UMICRO #### [facility] [address] [place] [address] Dr. Kelly Mukherjee Protein (U) [Mass/Vol] 100 mg/dL Abnormal NEGAT NADER/ TRACE [facility] Comment on above: Performed By: #### Javy VAZQUEZ UMICRO #### [facility] [address] [place] [address] Dr. Kelly Mukherjee SPEC GRAVITY 1.025 Normal 1.005-<=1.[address] [place] [address] Comment on above: Performed By: #### Javy VAZQUEZ UMICRO #### [facility] [address] [place] [address] Dr. Kelly Mukherjee UR MICRO IND INDICATED Normal [facility] Comment on above: Performed By: #### Javy VAZQUEZ UMICRO #### [facility] [address] [place] [address] Dr. Kelly Mukherjee Urobilinogen Qn (U) 0.2 {Jun'U}/dL Normal 0.2 - 1. 0 [facility] Comment on above: Performed By: #### Javy VAZQUEZ UMICRO #### [facility] [address] [place] [address] Dr. Kelly Mukherjee LACTATE/LACTIC ACIDon 2021 Lactate [Moles/Vol] 1.0 mmol/L Normal 0.4-1.9 [facility] Comment on above: Performed By: #### B MP #### [facility] [address] [place] [address] Dr. Kelly Mukherjee PROF 14(COMP METB)on 022 Albumin [Mass/Vol] 3.6 g/dL Normal 3.4-5.0 [facility] Comment on above: Performed By: #### B MP #### [facility] [address] [place] [address] Dr. Kelly Mukherjee Albumin/Globulin [Mass ratio] 1.3 {ratio} Normal [facility] Comment on above: Performed By: #### B MP #### [facility] [address] [place] [address] Dr. Kelly Mukherjee ALP [Catalytic activity/Vol] 95 U/L Normal 46-116 [facility] Comment on above: Performed By: #### B MP #### [facility] [address] [place] [address] Dr. Kelly Mukherjee ALT [Catalytic activity/Vol] 53 U/L Normal 16-63 [facility] Comment on above: Performed By: #### B MP #### [facility] [address] [place] [address] Dr. Kelly Mukherjee Anion gap [Moles/Vol] 8.7 mmol/L Normal [facility] Comment on above: Performed By: #### B MP #### [facility] [address] [place] [address] Dr. Kelly Mukherjee AST [Catalytic activity/Vol] 31 U/L Normal 15-37 [facility] Comment on above: Performed By: #### B MP #### [facility] [address] [place] [address] Dr. Kelly Mukherjee Bilirubin [Mass/Vol] 0.4 mg/dL Normal 0.2-1.0 [facility] Comment on above: Performed By: #### B MP #### [facility] [address] [place] [address] Dr. Kelly Mukherjee Calcium [Mass/Vol] 8.5 mg/dL Normal 8.5-10.1 [facility] Comment on above: Performed By: #### B MP #### [facility] [address] [place] [address] Dr. Klely Mukherjee Chloride [Moles/Vol] 106 mmol/L Normal 98-107 [facility] Comment on above: Performed By: #### B MP #### [facility] [address] [place] [address] Dr. Kelly Mukherjee CO2 [Moles/Vol] 29.1 mmol/L Normal 21.0-32.0 [facility] Comment on above: Performed By: #### B MP #### [facility] [address] [address] [address] Kelly Mukherjee Creatinine [Mass/Vol] 1.07 mg/dL Normal 0.70-1.30 [facility] Comment on above: Performed By: #### B MP #### [facility] [address] [address] [address] Kelly Mukherjee EGFR-AF AZERBAIJANI >60 Normal >=60 [facility] Comment on above: Performed By: #### B MP #### [facility] [address] [address] [address] Kelly Mukherjee EGFR-NON AF AZERBAIJANI >60 Normal >=60 [facility] Comment on above: Performed By: #### B MP #### [facility] [address] [place] [address] Dr. Kelly Mukherjee Globulin (S) [Mass/Vol] 2.8 g/dL Normal [facility] Comment on above: Performed By: #### B MP #### [facility] [address] [address] [address] Kelly Mukherjee Glucose [Mass/Vol] 208 mg/dL Critically high 74-106 [facility] Comment on above: Performed By: #### B MP #### [facility] [address] [place] [address] Dr. Kelly Mukherjee Potassium [Moles/Vol] 3.8 mmol/L Normal 3.5-5.1 [facility] Comment on above: Performed By: #### B MP #### [facility] [address] [place] [address] Dr. Kelly Mukherjee Protein [Mass/Vol] 6.4 g/dL Normal 6.4-8.2 [facility] Comment on above: Performed By: #### B MP #### [facility] [address] [address] [address] Kelly Mukherjee Sodium [Moles/Vol] 140 mmol/L Normal 136-145 [facility] Comment on above: Performed By: #### B MP #### [facility] [address] [address] [address] Kelly Mukherjee Urea nitrogen [Mass/Vol] 23.0 mg/dL Critically high 7.0-18 .0 [facility] Comment on above: Performed By: #### B MP #### [facility] [address] [address] [address] Kelly Mukherjee Urea nitrogen/Creatinine [Mass ratio] 21.5 mg/mg Normal [facility] Comment on above: Performed By: #### B MP #### [facility] [address] [address] [address] Kelly Mukherjee PROF CHEM 8 (BAS METB)on Anion gap [Moles/Vol] 10.1 mmol/L Normal [facility] Comment on above: Performed By: #### B MP #### [facility] [address] [place] [address] Dr. Kelly Mukherjee Calcium [Mass/Vol] 8.2 mg/dL Critically low 8.5-10.1 [facility] Comment on above: Performed By: #### B MP #### [facility] [address] [place] [address] Dr. Kelly Mukherjee Chloride [Moles/Vol] 107 mmol/L Normal 98-107 [facility] Comment on above: Performed By: #### B MP #### [facility] [address] [place] [address] Dr. Kelly Mukherjee CO2 [Moles/Vol] 27.6 mmol/L Normal 21.0-32.0 [facility] Comment on above: Performed By: #### B MP #### [facility] [address] [address] [address] Kelly Mukherjee Creatinine [Mass/Vol] 0.93 mg/dL Normal 0.70-1.30 [facility] Comment on above: Performed By: #### B MP #### [facility] [address] [place] [address] Dr. Kelly Mukherjee EGFR-AF AZERBAIJANI >60 Normal >=60 [facility] Comment on above: Performed By: #### B MP #### [facility] [address] [place] [address] Dr. Kelly Mukherjee EGFR-NON AF AZERBAIJANI >60 Normal >=60 [facility] Comment on above: Performed By: #### B MP #### [facility] [address] [address] [address] Kelly Mukherjee Glucose [Mass/Vol] 153 mg/dL Critically high 74-106 [facility] Comment on above: Performed By: #### B MP #### [facility] [address] [place] [address] Dr. Kelly Mukherjee Potassium [Moles/Vol] 3.7 mmol/L Normal 3.5-5.1 [facility] Comment on above: Performed By: #### B MP #### [facility] [address] [place] [address] Dr. Kelly Mukherjee Sodium [Moles/Vol] 141 mmol/L Normal 136-145 [facility] Comment on above: Performed By: #### B MP #### [facility] [address] [place] [address] Dr. Kelly Mukherjee Urea nitrogen [Mass/Vol] 17.0 mg/dL Normal 7.0-18.0 [facility] Comment on above: Performed By: #### B MP #### [facility] [address] [place] [address] Dr. Kelly Mukherjee Urea nitrogen/Creatinine [Mass ratio] 18.3 mg/mg Normal [facility] Comment on above: Performed By: #### B MP #### [facility] [address] [place] [address] Dr. Kelly Mukherjee URINE MICROSCOPIC ONLYon BACTERIA MODERATE Abnormal NONE SEEN [facility] Comment on above: Performed By: #### MARIKA CABRAL #### [facility] [address] [place] [address] Dr. Kelly Mukherjee Bacteria identified Cx Nom (U) INDICATED Normal [facility] Comment on above: Performed By: #### MARIKA CABRAL #### [facility] [address] [place] [address] Dr. Kelly Mukherjee CAST NONE SEEN Normal NONE SEEN [facility] Comment on above: Performed By: #### E RUR, UMICRO #### [facility] [address] [place] [address] Dr. Kelly Mukherjee Crystals LM Nom (Urine sed) NONE SEEN Normal NONE SEEN [facility] Comment on above: Performed By: #### E RUR, UMICRO #### [facility] [address] [place] [address] Dr. Kelly Mukherjee Epithelial cells LM Ql (Urine sed) NONE SEEN Normal NONE SEEN /RARE [facility] Comment on above: Performed By: #### E RUR, UMICRO #### [facility] [address] [place] [address] Dr. Kelly Mukherjee MUCOUS NONE SEEN Normal NONE SEEN [facility] Comment on above: Performed By: #### E RUR, UMICRO #### [facility] [address] [place] [address] Dr. Kelly Mukherjee RBC NONE SEEN Abnormal 0-2 [facility] Comment on above: Performed By: #### E RUR, UMICRO #### [facility] [address] [place] [address] Dr. Kelly Mukherjee WBC 2-5 Abnormal NONE SEEN [facility] Comment on above: Performed By: #### E RUR, UMICRO #### [facility] [address] [place] [address] Dr. Kelly Mukherjee XR CHEST 1 Von [...] KIA JENNINGS Date: 2022-05-03 00:05 Normal [facility] MRI BRAIN WO CONon 2 MRI [...] by: SHAKA BLANCO Date: 2022-04-19 20:11 Normal [facility] ECHOCARDIO M/2D COMPLETEon 0 03-27-2022 ECHOCARDIO M/2D COMPLETE Patient: BRIAN GOULD Exam Date: 03/27/2022 : 1945 Gender:M Ordering : DR JUAN A COX D.O. Admission #: [id number] Family : Order #: [id number] CLICK HERE TO VIEW EXAM ECHOCARDIOGRAM REPORT [...] Area(A4C): 20.80 cm2 Left Atrium Systolic Volume(A2C): 22022 mm3 Left Atrium Systolic Volume(A4C): 08372 mm3 Mitral Valve MV E to A Ratio: 1.30 Deceleration [place]: 3680 mm/s2 Mitral Valve A-Wave Peak Velocity: 65.60 cm/s Mitral Valve E-Wave Peak Velocity: 84.40 cm/s Right Ventricle RV Internal Diastolic Dimension: 3.10 cm Aorta AO Root Diam: 3.30 cm Aortic Valve AoV Area (Peak [place]): 2.40 cm2 Deceleration [place]: 541 mm/s2 Pressure Half-Time: 1.59 s Peak [...] Walden M.D. on 03/29/2022 at 19:07 Normal [facility] NM STRESS/REST MULTIon 03-09 NM STRESS/REST MULTI Patient: BRIAN GOULD Exam Date: 03/09/2022 : 1945 Gender:M Ordering : DR JUAN A COX D.O. Admission #: [id number] Family : Order #: [id number] CLICK HERE TO VIEW EXAM RADIOLOGY REPORT [...] was normal per attending physician Dr. Dennis Cxo . For more details please see separate [...] Olson M.D. on 03/10/2022 at 09:38 Normal [facility] BNPon 02-15-2022 Natriuretic peptide B (Bld) [Mass/Vol] 400.0 pg/mL Normal <=1,800.0 [facility] Comment on above: Performed By: #### B MP #### [facility] [address] [place] [address] Dr. Kelly Mukherjee CARDIAC BARRON ADMITon 022 CK [Catalytic activity/Vol] 22 U/L Critically low 39-308 [facility] Comment on above: Performed By: #### B MP #### [facility] [address] [place] [address] Dr. Kelly Mukherjee CK.MB [Mass/Vol] ng/mL Normal <=3.60 [facility] Comment on above: Performed By: #### B MP #### [facility] [address] [place] [address] Dr. Kelly Mukherjee HSTROP 6.8 pg/mL Normal 4.0-76.1 [facility] Comment on above: Result Comment: CUT- OFF POINTS HAVE BEEN ESTABLISHED BASED ON THE FOURTH UNIVERSAL DEFINITIONS OF MYOCARDIAL INFARCTION. THE UPPER REFERENCE LIMIT (URL) OF TROPONIN, DEFINED THE 99TH PERCENTILE OF cTnI DISTRIBUTION IN A REFERENCE POPULATION, HAS BEEN CONFIRMED THE DECISION THRESHOLD FOR AR DIAGNOSIS. Performed By: #### B MP #### [facility] [address] [place] [address] Dr. Kelly Mukherjee DEBBIE 39 ng/mL Normal 16-96 [facility] Comment on above: Performed By: #### B MP #### [facility] [address] [place] [address] Dr. Kelly Mukherjee CBC AUTO DIFFon 02-15-2022 BASO # 0.0 103/ul Normal 0.0-0.1 [facility] Comment on above: Performed By: #### B MP #### [facility] [address] [place] [address] Dr. Kelly Mukherjee Basophils/100 WBC (Bld) 0.3 % Normal 0.2-2.0 [facility] Comment on above: Performed By: #### B MP #### [facility] [address] [place] [address] Dr. Kelly Mukherjee EO # 0.1 103/ul Normal 0.0-0.7 [facility] Comment on above: Performed By: #### B MP #### [facility] [address] [place] [address] Dr. Kelly Mukherjee Eosinophils/100 WBC (Bld) 2.0 % Normal 0.9-7.0 [facility] Comment on above: Performed By: #### B MP #### [facility] [address] [place] [address] Dr. Kelly Mukherjee Erythrocyte distribution width (RBC) [Ratio] 15.4 % Critically high 11.0-15.0 [facility] Comment on above: Performed By: #### B MP #### [facility] [address] [place] [address] Dr. Kelly Mukherjee Hematocrit (Bld) [Volume fraction] 31.9 % Critically low 42.0-54.0 [facility] Comment on above: Performed By: #### B MP #### [facility] [address] [place] [address] Dr. Kelly Mukherjee Hemoglobin (Bld) [Mass/Vol] 10.7 g/dL Critically low 14.0-18.0 [facility] Comment on above: Performed By: #### B MP #### [facility] [address] [place] [address] Dr. Kelly Mukherjee IG # 0.01 10e3/ul Normal 0.00-0.03 [facility] Comment on above: Performed By: #### B MP #### [facility] [address] [place] [address] Dr. Kelly Mukherjee IG % 0.3 % Normal 0.0-0.5 [facility] Comment on above: Performed By: #### B MP #### [facility] [address] [place] [address] Dr. Kelly Mukherjee LYMPH # 0.6 103/ul Critically low 1.2-3.8 [facility] Comment on above: Performed By: #### B MP #### [facility] [address] [place] [address] Dr. Kelly Mukherjee Lymphocytes/100 WBC (Bld) 15.9 % Critically low 20.5-6 0.0 [facility] Comment on above: Performed By: #### B MP #### [facility] [address] [address] [address] Kelly Mukherjee MANUAL DIFF REQ NO Normal [facility] Comment on above: Performed By: #### B MP #### [facility] [address] [address] [address] Kelly Mukherjee MCH (RBC) [Entitic mass] 33.8 pg Normal 25.9-34.0 [facility] Comment on above: Performed By: #### B MP #### [facility] [address] [place] [address] Dr. Kelly Mukherjee MCHC (RBC) [Mass/Vol] 33.5 g/dL Normal 29.9-35.2 [facility] Comment on above: Performed By: #### B MP #### [facility] [address] [place] [address] Dr. Kelly Mukherjee MCV (RBC) [Entitic vol] 100.6 fL Critically high 80.0-94 .0 [facility] Comment on above: Performed By: #### B MP #### [facility] [address] [place] [address] Dr. Kelly Mukherjee MONO # 0.2 103/ul Critically low 0.3-0.8 [facility] Comment on above: Performed By: #### B MP #### [facility] [address] [place] [address] Dr. Kelly Mukhejree Monocytes/100 WBC (Bld) 4.9 % Normal 1.7-12.0 [facility] Comment on above: Performed By: #### B MP #### [facility] [address] [place] [address] Dr. Kelly Mukherjee NEUT # 2.7 103/ul Normal 1.4-6.5 [facility] Comment on above: Performed By: #### B MP #### [facility] [address] [place] [address] Dr. Kelly Mukherjee Neutrophils/100 WBC (Bld) 76.6 % Critically high 43.0- 75.0 [facility] Comment on above: Performed By: #### B MP #### [facility] [address] [address] [address] Kelly Mukherjee Platelet mean volume (Bld) [Entitic vol] 10.4 fL Normal 9.5-13.5 [facility] Comment on above: Performed By: #### B MP #### [facility] [address] [address] [address] Kelly Mukherjee PLT 72 103/ul Critically low 150-450 [facility] Comment on above: Performed By: #### B MP #### [facility] [address] [address] [address] Kelly Mukherjee RBC 3.17 106/ul Critically low 4.70-6.10 [facility] Comment on above: Performed By: #### B MP #### [facility] [address] [address] [address] Kelly Mukherjee WBC 3.5 103/ul Critically low 4.0-11.0 [facility] Comment on above: Performed By: #### B MP #### [facility] [address] HEAD WO CONon [...] CELINE COLVIN Date: 2022-02-15 15:45 Normal [facility] PROF 14(COMP METB)on 022 Albumin [Mass/Vol] 3.7 g/dL Normal 3.4-5.0 [facility] Comment on above: Performed By: #### B MP #### [facility] [address] [place] [address] Dr. Kelly Mukherjee Albumin/Globulin [Mass ratio] 1.3 {ratio} Normal [facility] Comment on above: Performed By: #### B MP #### [facility] [address] [place] [address] Dr. Kelly Mukherjee ALP [Catalytic activity/Vol] 84 U/L Normal 46-116 [facility] Comment on above: Performed By: #### B MP #### [facility] [address] [place] [address] Dr. Kelly Mukherjee ALT [Catalytic activity/Vol] 29 U/L Normal 16-63 [facility] Comment on above: Performed By: #### B MP #### [facility] [address] [place] [address] Dr. Kelly Mukherjee Anion gap [Moles/Vol] 14.3 mmol/L Normal [facility] Comment on above: Performed By: #### B MP #### [facility] [address] [place] [address] Dr. Kelly Mukherjee AST [Catalytic activity/Vol] 15 U/L Normal 15-37 [facility] Comment on above: Performed By: #### B MP #### [facility] [address] [place] [address] Dr. Kelly Mukherjee Bilirubin [Mass/Vol] 0.5 mg/dL Normal 0.2-1.0 [facility] Comment on above: Performed By: #### B MP #### [facility] [address] [place] [address] Dr. Kelly Mukherjee Calcium [Mass/Vol] 9.0 mg/dL Normal 8.5-10.1 [facility] Comment on above: Performed By: #### B MP #### [facility] [address] [place] [address] Dr. Kelly Mukherjee Chloride [Moles/Vol] 105 mmol/L Normal 98-107 [facility] Comment on above: Performed By: #### B MP #### [facility] [address] [address] [address] Kelly Mukherjee CO2 [Moles/Vol] 27.0 mmol/L Normal 21.0-32.0 [facility] Comment on above: Performed By: #### B MP #### [facility] [address] [address] [address] Kelly Mukherjee Creatinine [Mass/Vol] 0.90 mg/dL Normal 0.70-1.30 [facility] Comment on above: Performed By: #### B MP #### [facility] [address] [address] [address] Kelly Mukherjee EGFR-AF AZERBAIJANI >60 Normal >=60 [facility] Comment on above: Performed By: #### B MP #### [facility] [address] [address] [address] Kelly Mukherjee EGFR-NON AF AZERBAIJANI >60 Normal >=60 [facility] Comment on above: Performed By: #### B MP #### [facility] [address] [address] [address] Kelly Mukherjee Globulin (S) [Mass/Vol] 2.9 g/dL Normal [facility] Comment on above: Performed By: #### B MP #### [facility] [address] [address] [address] Kelly Mukherjee Glucose [Mass/Vol] 234 mg/dL Critically high 74-106 [facility] Comment on above: Performed By: #### B MP #### [facility] [address] [address] [address] Kelly Mukherjee Potassium [Moles/Vol] 4.3 mmol/L Normal 3.5-5.1 [facility] Comment on above: Performed By: #### B MP #### [facility] [address] [address] [address] Kelly Mukherjee Protein [Mass/Vol] 6.6 g/dL Normal 6.4-8.2 [facility] Comment on above: Performed By: #### B MP #### [facility] [address] [place] [address] Dr. Kelly Mukherjee Sodium [Moles/Vol] 142 mmol/L Normal 136-145 [facility] Comment on above: Performed By: #### B MP #### [facility] [address] [place] [address] Dr. Kelly Mukherjee Urea nitrogen [Mass/Vol] 27.0 mg/dL Critically high 7.0-18 .0 [facility] Comment on above: Performed By: #### B MP #### [facility] [address] [place] [address] Dr. Kelly Mukherjee Urea nitrogen/Creatinine [Mass ratio] 30.0 mg/mg Normal [facility] Comment on above: Performed By: #### B MP #### [facility] [address] [place] [address] Dr. Kelly Mukherjee PROTIMEon 02-15-2022 INR Coag (PPP) [Relative time] 1.03 {INR} Normal [facility] Comment on above: Performed By: #### C VDTBH #### [facility] [address] [place] [address] Dr. Kelly Mukherjee INR GUIDELINES SEE BELOW Normal [facility] Comment on above: Result Comment: JULIANA RED INR: 2.0 - 3.0 CONDITIONS NOT LISTED BELOW 2.5 - 3.5 FOR PROSTHETIC HEART VALVE REPLACEMENT 2.5 - 3.5 RECURRENT THROMBOSIS Performed By: #### C VDTBH #### [facility] [address] [place] [address] Dr. Kelly Mukherjee PT Coag (PPP) [Time] 11.1 s Normal 9.0-11.6 [facility] Comment on above: Performed By: #### C VDTBH #### [facility] [address] [place] [address] Dr. Kelly Mukherjee PTTon 02-15-2022 aPTT Coag (Bld) [Time] 26.9 s Normal 22.3-36.2 [facility] Comment on above: Performed By: #### C VDTBH #### [facility] [address] [place] [address] Dr. Kelly Mukherjee XR CHEST 1 Von [...] by: SONAM OLSON Date: 2022-02-15 15:49 Normal [facility] Vital Signs Date Time Vital Sign Value Performing Clinician Facility 06-10-2024 13:45-0400 Body height 172.72 cm [facility] 06-10-2024 13:45-0400 Body mass index (BMI) [Ratio] 23.1 kg/m2 [facility] 06-10-2024 13:45-0400 Body weight 69.05 kg [facility] 06-10-2024 13:45-0400 Diastolic blood pressure 89 mm[Hg] [facility] 06-10-2024 13:45-0400 Heart rate 61 /min [facility] 06-10-2024 13:45-0400 Respiratory rate 20 /min [facility] 06-10-2024 13:45-0400 Systolic blood pressure 139 mm[Hg] [facility] 02-26-2024 14:23-0400 Body height 172.72 cm [facility] 02-26-2024 14:23-0400 Body mass index (BMI) [Ratio] 25 kg/m2 [facility] 02-26-2024 14:23-0400 Body weight 74.84 kg [facility] 02-26-2024 14:23-0400 Diastolic blood pressure 64 mm[Hg] [facility] 02-26-2024 14:23-0400 Heart rate 67 /min [facility] 02-26-2024 14:23-0400 Respiratory rate 20 /min [facility] 02-26-2024 14:23-0400 Systolic blood pressure 169 mm[Hg] [facility] 12-14-2023 11:18-0500 Body height 172.72 cm [facility] 12-14-2023 11:18-0500 Body mass index (BMI) [Ratio] 24 kg/m2 [facility] 12-14-2023 11:18-0500 Body weight 71.89 kg [facility] 12-14-2023 11:18-0500 Diastolic blood pressure 53 mm[Hg] [facility] 12-14-2023 11:18-0500 Heart rate 65 /min [facility] 12-14-2023 11:18-0500 Respiratory rate 20 /min [facility] 12-14-2023 11:18-0500 Systolic blood pressure 170 mm[Hg] [facility] 11-06-2023 13:30-0500 Body height 172.72 cm Juan A Ball Other [facility] [employer] Other 11-06-2023 13:30-0500 Body mass index (BMI) [Ratio] 24.45 kg/m2 Juan A Ball Other [facility] [employer] Other 11-06-2023 13:30-0500 Body weight 72.94 kg Juan A Ball Other [facility] [employer] Other 11-06-2023 13:30-0500 Diastolic blood pressure 88 mm[Hg] Juan A Ball Other [facility] [employer] Other 11-06-2023 13:30-0500 Respiratory rate 12 /min Juan A Ball Other [facility] [employer] Other 11-06-2023 13:30-0500 Systolic blood pressure 138 mm[Hg] Juan A Ball Other [facility] [employer] Other 07-05-2023 11:30-0400 Body height 172.72 cm Juan A Ball Other [employer] Other 07-05-2023 11:30-0400 Body mass index (BMI) [Ratio] 24.87 kg/m2 Juan A Ball Other [employer] Other 07-05-2023 11:30-0400 Body weight 74.21 kg Juan A Ball Other [employer] Other 07-05-2023 11:30-0400 Diastolic blood pressure 64 mm[Hg] Juan A Ball Other [employer] Other 07-05-2023 11:30-0400 Respiratory rate 16 /min Juan A Ball Other [employer] Other 07-05-2023 11:30-0400 Systolic blood pressure 136 mm[Hg] Juan A Ball Other [employer] Other 04-04-2023 15:00-0400 Body height 172.72 cm Juan A Ball Other [employer] Other 04-04-2023 15:00-0400 Body mass index (BMI) [Ratio] 25.12 kg/m2 Juan A Ball Other [employer] Other 04-04-2023 15:00-0400 Body weight 74.93 kg Juan A Ball Other [employer] Other 04-04-2023 15:00-0400 Diastolic blood pressure 63 mm[Hg] Juan A Ball Other [employer] Other 04-04-2023 15:00-0400 Respiratory rate 12 /min Juan A Ball Other [employer] Other 04-04-2023 15:00-0400 Systolic blood pressure 173 mm[Hg] Juan A Ball Other [employer] Other 01-01-2023 14:30-0400 Body height 172.72 cm Juan A Ball Other [employer] Other 01-01-2023 14:30-0400 Body mass index (BMI) [Ratio] 24.93 kg/m2 Juan A Ball Other [employer] Other 01-01-2023 14:30-0400 Body weight 74.39 kg Juan A Ball Other [employer] Other 01-01-2023 14:30-0400 Diastolic blood pressure 62 mm[Hg] Juan A Ball Other [employer] Other 01-01-2023 14:30-0400 Respiratory rate 12 /min Juan A Ball Other [employer] Other 01-01-2023 14:30-0400 Systolic blood pressure 143 mm[Hg] Juan A Ball Other [employer] Other 10-13-2022 16:30-0500 Body height 172.72 cm Juan A Ball Other [employer] Other 10-13-2022 16:30-0500 Body mass index (BMI) [Ratio] 24.63 kg/m2 Juan A Ball Other [employer] Other 10-13-2022 16:30-0500 Body weight 73.48 kg Juan A Ball Other [employer] Other 10-13-2022 16:30-0500 Diastolic blood pressure 62 mm[Hg] Juan A Ball Other [employer] Other 10-13-2022 16:30-0500 Respiratory rate 12 /min Juan A Ball Other [employer] Other 10-13-2022 16:30-0500 Systolic blood pressure 122 mm[Hg] Juan A Ball Other [employer] Other 08-30-2022 14:43-0500 Body height 170.3 cm Tricia Crespo MD Work Phone: [facility] 08-30-2022 14:43-0500 Body temperature 97.7 [degF] Tricia Crespo MD Work Phone: [facility] 08-30-2022 14:43-0500 Body weight 73.57 kg Tricia Crespo MD Work Phone: [facility] 08-30-2022 14:43-0500 Diastolic blood pressure 59 mm[Hg] Tricia Crespo MD Work Phone: [facility] 08-30-2022 14:43-0500 Heart rate 59 /min Tricia Crespo MD Work Phone: [facility] 08-30-2022 14:43-0500 Respiratory rate 18 /min Tricia Crespo MD Work Phone: [facility] 08-30-2022 14:43-0500 SaO2% (BldA) [Mass fraction] 96 % Tricia Crespo MD Work Phone: [facility] 08-30-2022 14:43-0500 Systolic blood pressure 158 mm[Hg] Tricia Crespo MD Work Phone: [facility] Encounters Encounter Date Encounter Type Care Provider Facility Start: 06-19-2024 End: 06-19-2024 ambulatory [facility] Start: 06-10-2024 End: 06-10-2024 ambulatory [facility] Work Phone: Start: 06-10-2024 End: 06-10-2024 Patient encounter procedure [facility] Work Phone: Start: 06-07-2024 Patient encounter procedure [facility] Start: 02-26-2024 End: 02-26-2024 ambulatory [facility] Work Phone: Start: 02-26-2024 End: 02-26-2024 Patient encounter procedure [facility] Work Phone: Start: 02-18-2024 Non-patient / Non-visit [facility] Work Phone: Start: 02-15-2024 Non-patient / Non-visit [facility] Work Phone: Start: 02-14-2024 Non-patient / Non-visit [facility] Work Phone: Start: 02-07-2024 End: 02-07-2024 ambulatory [facility] ROBERSON Not Available Start: 12-14-2023 End: 12-14-2023 Patient encounter procedure [facility] Work Phone: Start: 11-06-2023 End: 11-06-2023 ambulatory Juan A Cox Other [employer] Other Start: 11-06-2023 Office outpatient vi sit 25 minutes Juan A Cox [facility] Start: 07-17-2023 End: 07-17-2023 ambulatory Juan A Blaise Other [employer] Other Start: 07-17-2023 Telephone encounter Juan A Cox [facility] Start: 07-05-2023 End: 07-05-2023 ambulatory Juan A Ball Other [employer] Other Start: 07-05-2023 Patient encounter procedure Juan A Cox [facility] Start: 04-04-2023 End: 04-04-2023 ambulatory Juan A Ball Other [employer] Other Start: 04-04-2023 Office outpatient vi sit 25 minutes Juan A Ball [facility] Start: 01-01-2023 End: 01-01-2023 ambulatory Juan A Ball Other [employer] Other Start: 01-01-2023 Office outpatient vi sit 25 minutes Juan A Ball [facility] Start: 12-14-2022 End: 12-14-2022 ambulatory Juan A Ball Other [employer] Other Start: 12-14-2022 Telephone encounter Juan A Ball [facility] Start: 12-11-2022 End: 12-12-2022 ambulatory Dominic CASTELLANOS Facility:[facility] Start: 12-11-2022 End: 12-11-2022 Patient encounter procedure Dominic CASTELLANOS [facility] Start: 12-08-2022 End: 12-09-[address] DOMINIC CASTELLANOS Facility: Start: 11-27-2022 End: 11-27-2022 ambulatory Juan A Ball Other [employer] Other Start: 11-27-2022 Telephone encounter Juan A Ball [facility] Start: 11-07-2022 End: 11-08-2022 ambulatory ELLIS HO Facility: Start: 10-29-2022 End: 10-29-2022 ambulatory Juan A Ball Other [employer] Other Start: 10-29-2022 Telephone encounter Juan A Ball [facility] Start: 10-20-2022 End: 10-20-2022 ambulatory Juan A Ball Other [employer] Other Start: 10-20-2022 Telephone encounter Juan A Ball [facility] Start: 10-13-2022 End: 10-13-2022 ambulatory Juan A Ball Other [employer] Other Start: 10-13-2022 Office outpatient vi sit [...] encounter procedure Tricia Crespo MD Work Phone: [facility] Start: 05-08-2022 End: 05-08-[address] JUAN [...] 07-17-2018 End: 07-18-2018 Patient encounter DEFAULT PHYSICIAN Facility:[facility] Start: 09-18-2017 End: 09-19-2017 Patient encounter DEFAULT PHYSICIAN Facility:[facility] Procedures Date Procedure Procedure Detail Performing Clinician Start: 02-14-2024 Bacteria identified in Urine by Culture Start: 12-08-2022 PSA screening ELLIS GARCIA Comment on above: Performed By: #### C VDTB #### [facility] [address] [place] [address] Dr. Kelly Mukherjee Start: 04-06-2021 Extracorporeal shock [...] Author Start: 08-30-2025 DIABETES SCREEN DIABETES SCREEN [facility] Start: 02-27-2023 End: 04-29-2023 CBC W Auto Differential panel - Blood CBC + DIFF Lab Routine Splenomegaly Expected: 02/27/2023 (Approximate), Expires: 04/29/2023 [facility] Work Phone: Comment on above: Expected: 02/27/2023 (Approximate), Expires: 04/29/2023 Start: 02-27-2023 End: 04-29-2023 Comprehensive metabolic 2000 panel - Serum or Plasma COMP METABOLIC PANEL Lab Routine Splenomegaly Expected: 02/27/2023 (Approximate), Expires: 04/29/2023 [facility] Work Phone: Comment on above: Expected: 02/27/2023 (Approximate), Expires: 04/29/2023 Start: 08-30-2022 End: 10-30-2022 Cobalamin (Vitamin B12) [Mass/volume] in Serum or Plasma [facility] Work Phone: Comment on above: Expected: 08/30/2022 , Expires: 10/30/2022 Start: 08-30-2022 End: 08-30-2023 Ferritin [Mass/volume] in Serum or Plasma [facility] Work Phone: Comment on above: Expected: 08/30/2022 , Expires: 08/30/2023 Start: 08-30-2022 End: 08-30-2023 Iron and Iron binding capacity panel - Serum or Plasma [facility] Work Phone: Comment on above: Expected: 08/30/2022 , Expires: 08/30/2023 Start: 10-08-2021 ADVANCE DIRECTIVE DISCUSSION ADVANCE DIRECTIVE DISCUSSION [facility] Start: 10-08-2021 DEPRESSION ASSESSMENT DEPRESSION ASS ESSMENT [facility] Start: 02-01-2021 COVID-19 VACCINE (3 - Booster for Moderna series) COVID-19 VACCINE (3 - Booster for Moderna series) [facility] Start: 2011 PNEUMOCOCCAL: 65+ (1 - PCV) PNEUMOCOCCAL: 65+ (1 - PCV) [facility] Start: 1996 SHINGRIX VACCINE (1 of 2) SHINGRIX VACCINE (1 of 2) [facility] Start: 1965 Urine microalbumin profile DTAP,TDAP,TD (1 - Tdap) [facility] Start: 1964 ANNUAL PCP TEAM [employer] GAYLA DISEASE VISIT ANNUAL PCP TEAM CHRONIC DISEASE VISIT [facility] Start: 1964 Hepatitis B surface antibody level LDL CHOLESTEROL [facility] Bacteria identified in Urine by Culture [facility] Comprehensive metabo lic 2000 panel - Serum or Plasma [facility] Immunizations Immunization Date Immunization Notes Care Provider Milka puga 07-05-2023 influenza virus vaccine, unspecified formulation [facility] 07-05-2023 influenza, high dose seasonal, preservative-free Juan A Cox Other [employer] [facility] [employer] Other 07-11-2022 influenza (aIIV4) vaccine, age 65+ yr, quadrivalent, PF (FLUAD QUADRIVALENT) Tricia Crespo MD Work Phone: [facility] 07-11-2022 influenza virus vaccine, split virus (incl. purified surface antigen) Juan A Cox Other [employer] Other 07-11-2022 influenza virus vaccine, unspecified formulation Dominic CASTELLANOS [facility] 07-11-2022 influenza, high dose seasonal, preservative-free Juan A Cox Other [facility] [employer] Other 07-19-2021 influenza virus vaccine, split virus (incl. purified surface antigen) Juan A Cox Other [employer] Other 07-19-2021 influenza virus vaccine, unspecified formulation [facility] 07-08-2021 influenza virus vaccine, unspecified formulation Dominic CASTELLANOS [facility] 12-07-2020 COVID-19 original vaccine, full dose, monovalent (MODERNA) Tricia Crespo MD Work Phone: [facility] 12-06-2020 SARS-CoV-2 (COVID-19 ) mRNA-[id number] vaccine [employer] [facility] 11-09-2020 COVID-19 original vaccine, full dose, monovalent (MODERNA) Tricia Crespo MD Work Phone: [facility] 11-08-2020 SARS-CoV-2 (COVID-19 ) mRNA-[id number] vaccine [employer] [facility] 07-30-2020 influenza virus vaccine, split virus (incl. purified surface antigen) Juan A Cox Other [facility] [employer] Other 07-30-2020 influenza virus vaccine, unspecified formulation Dominic YEFRI [facility] 07-30-2020 influenza, injectabl e, quadrivalent, preservative free Tricia Crespo MD Work Phone: [facility] 07-21-2019 influenza virus vaccine, split virus (incl. purified surface antigen) Juan A Cox Other [facility] [employer] Other 07-21-2019 influenza virus vaccine, unspecified formulation [facility] 07-18-2018 influenza virus vaccine, split virus (incl. purified surface antigen) Juan A Cox Other [employer] Other 07-18-2018 influenza virus vaccine, unspecified formulation Dominic [employer] [facility] 07-18-2018 Seasonal trivalent influenza vaccine, adjuvanted, preservative free Tricia Crespo MD Work Phone: [facility] 08-22-2017 influenza virus vaccine, split virus (incl. purified surface antigen) Juan A Cox Other [employer] Other 08-22-2017 influenza virus vaccine, unspecified formulation [facility] 08-20-2017 influenza virus vaccine, unspecified formulation Dominic [employer] [facility] 08-20-2017 Seasonal trivalent influenza vaccine, adjuvanted, preservative free Tricia Crespo MD Work Phone: [facility] 06-20-2016 influenza virus vaccine, split virus (incl. purified surface antigen) Juan A Cox Other [employer] [employer] Other 06-20-2016 influenza virus vaccine, unspecified formulation [facility] 09-03-2015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
== END 2024-07-02 14:37 | disposition home or self-care (01) ==
LOC: PST 14:37
PROVIDERS: PCP Internal Medicine; Visit Provider Surgery
DX: Z01.818 Encounter for other preprocedural examination (principal); Z85.048 Personal history of other malignant neoplasm of rectum, rectosigmoid junction, and anus

== ENCOUNTER 2024-07-09 07:52 | Day surgery (SDC) | payer MEDICARE, SELFPAY ==
--- NOTE | 2024-07-09 07:16 | PM.GSPRC ---
Date of procedure: 07/09/24 Indications for Procedure: Screening for cancer History of rectal cancer 2008 Anal seepage Pre-op diagnosis: Screening for cancer; history of rectal cancer; anal seepage Post-op diagnosis: other (Anal stricture; colon polyp ascending colon distal less than 7 mm) Procedure: colonoscopy with cold snare ascending colon Anal dilatation Findings: Anal stricture Ascending colon polyp Anesthesia: MAC Surgeon: Jurgen Lozano Procedure Summary: PROCEDURE: The patient was taken to the Endoscopy Suite, placed in the left lateral recumbent position, given IV sedation as above. A rectal digital exam was performed. Patient had an anal stricture from prior radiation for rectal cancer in 2007. The sphincter was very stenotic and I gently dilated it with the pinky finger which caused mild bleeding. No rectal masses were appreciated. The Olympus video colonoscope was advanced under direct visualization to the rectum, sigmoid colon, descending colon, transverse colon and ascending colon to the ileocecal valve. The underside of the valve was seen. Appendiceal lumen was visualized. Prep was not the best but allowed to see polyps greater than 5 mm in size. The polyp was encountered in the ascending colon it was cold snared and hemostasis maintained. The scope was slowly withdrawn with air being desufflated as it was withdrawn. No gross tumors or diverticula were seen. The patient tolerated the procedure well and went to the Recovery Area in satisfactory condition. I recommend the patient use a stool softener daily and return to office as needed if stricture recurs and would need repeat anal dilatation under anesthesia. I do not believe he needs another colonoscopy unless there are other problems. Due to age. Estimated blood loss (mL): 2 Specimens: Ascending colon polyp Complications: No Condition: stable Disposition: PACU
--- OUTSIDE RECORDS SUMMARY | 2024-07-09 07:58 | XMS_ITS | CCD ---
Author Organization [facility] CliniSyla Care Team Providers Care Trouble Dispatcher Name Role Phone PHYSICIAN, DEFAULT Unavailable Unavailable [...] Unavailable JUAN A COX Primary Care Physician [phone] ELLIS HO Admitting Unavailable [place], ELLIS Attending [...] Drug Allergy 9 AOF, Unknown Reaction [facility] (6 sources) Neomycin; 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: [neomycin] Drug Allergy 9 Rash [facility] (5 sources) Simvastatin Drug Allergy 4 Unknown, Unknown Reaction [facility] Medications Current Medications Medication Drug Class(es) [...] Daily, # 90 tab(s), Refills(s) 3, Pharmacy: [facility] (Now [facility]), 174, cm, 12/05/21 11:35:00 [...] mg extended release oral capsule (17 sources) U-xcyrgn-T-aspartate Receptor Antagonist Start: 12-14-2023 take 28 mg [...] Start: 03-10-2014 take 2 tablets by mo [facility] twice daily oxcarbazepine 300 mg Tab 600 mg = 2 tab(s), Oral, BID Start Date: 03/03/21 Status: Ordered take 1 tablet [facility] twelve hours OXcarbazepine 300 MG 1 [...] Coronary arteriosclerosis; 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: [Atherosclerotic heart disease of [place] coronary artery without angina pectoris] Onset: 4 [...] sources) Long-term current use of insulin; 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: [correction (current) use of insulin] 12-14-2023 Episodic Other aftercare (6 sources) salvage determiner (current) use of insulin; 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: [SHELTER CURRENT USE OF INSULIN] Onset: 3 Episodic Other aftercare (1 source) Other mcfp (current) drug therapy; 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: [OTH SHELTER CURRENT DRUG THERAPY] Onset: 3 Episodic Other [...] Onset: 03-27-2022 Episodic Other aftercare (1 source) salvage determiner (current) use of aspirin; 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: [SHELTER CURRENT USE OF ASPIRIN] Onset: 05-09-2022 Episodic [...] Basophils (Bld) [#/Vol] 0.0 10 3/uL 0.0-0.1 [facility] Basophils/100 WBC Auto (Bld) on 02-15-2024 Basophils/100 WBC (Bld) 0.2 % 0.2-2.0 [facility] Eosinophils/100 WBC Auto (Bl d)on 02-15-2024 Eosinophils/100 WBC (Bld) 0.0 % 0.9-7.0 [facility] Erythrocyte distribution wid th Auto (RBC) [Ratio]on 02-15-2024 Erythrocyte distribution width (RBC) [Ratio] 15.2 % 11.0-15.0 [facility] Estimated glomerular filtrat ion rate (GFR) non- Americanon 02-15-2024 GFR/1.73 sq M.predicted among non-blacks MDRD (S/P/Bld) [Vol rate/Area] mL/min/{1.73_m2} >=60 [facility] Globulin Calc (S) [Mass/Vol] on 02-15-2024 Globulin (S) [Mass/Vol] 3.1 g/dL [facility] Hematocrit Auto (Bld) [Volum e fraction]on 02-15-2024 Hematocrit (Bld) [Volume fraction] 29.3 % 42.0-54.0 [facility] Hemoglobin [Mass/volume] in Bloodon 02-15-2024 Hemoglobin (Bld) [Mass/Vol] 9.7 g/dL 14.0-18.0 [facility] Laboratory - Chemistry and C hemistry - challengeon 02-15-2024 Albumin [Mass/Vol] 3.4 g/dL 3.4-5.0 [facility] ALP [Catalytic activity/Vol] 90 U/L 46-116 [facility] ALT [Catalytic activity/Vol] 31 U/L 16-63 [facility] AST [Catalytic activity/Vol] 28 U/L 15-37 [facility] Bilirubin [Mass/Vol] 0.5 mg/dL 0.2-1.0 [facility] Calcium [Mass/Vol] 9.1 mg/dL 8.5-10.1 [facility] Chloride [Moles/Vol] 107 mmol/L 98-107 [facility] CO2 [Moles/Vol] 28.2 mmol/L 21.0-32.0 [facility] Creatinine [Mass/Vol] 0.98 mg/dL 0.70-1.30 [facility] GFR/1.73 sq M.predicted MDRD (S/P/Bld) [Vol rate/Area] mL/min/{1.73_m2} >=60 [facility] Glucose [Mass/Vol] 184 mg/dL 74-106 [facility] Potassium [Moles/Vol] 3.6 mmol/L 3.5-5.1 [facility] Protein [Mass/Vol] 6.5 g/dL 6.4-8.2 [facility] Sodium [Moles/Vol] 144 mmol/L 136-145 [facility] Urea nitrogen [Mass/Vol] 24.0 mg/dL 7.0-18.0 [facility] Urea nitrogen/Creatinine [Mass ratio] 24.5 mg/mg [facility] Laboratory - Hematology and Cell countson 02-15-2024 Immature granulocytes/100 WBC (Bld) 0.6 % 0.0-0.5 [facility] Leukocytes [#/volume] correc karina for nucleated erythrocytes in Blood by Automated counon 02-15-2024 WBC corrected for nucl RBC Auto (Bld) [#/Vol] 4.7 10 3/uL 4.0-11.0 [facility] Lymphocytes Auto (Bld) [#/Vo l]on 02-15-2024 Lymphocytes (Bld) [#/Vol] 0.2 10 3/uL 1.2-3.8 [facility] Lymphocytes/100 WBC Auto (Bl d)on 02-15-2024 Lymphocytes/100 WBC (Bld) 5.1 % 20.5-60.0 [facility] MCH Auto (RBC) [Entitic mass ]on 02-15-2024 MCH (RBC) [Entitic mass] 33.3 pg 25.9-34.0 [facility] MCHC Auto (RBC) [Mass/Vol]on 02-15-2024 MCHC (RBC) [Mass/Vol] 33.1 g/dL 29.9-35.2 [facility] [place] MCV Auto (RBC) [Entitic vol] on 02-15-2024 MCV (RBC) [Entitic vol] 100.7 fL 80.0-94.0 [facility] Monocytes Auto (Bld) [#/Vol] on 02-15-2024 Monocytes (Bld) [#/Vol] 0.3 10 3/uL 0.3-0.8 [facility] Monocytes/100 WBC Auto (Bld) on 02-15-2024 Monocytes/100 WBC (Bld) 7.2 % 1.7-12.0 [facility] Neutrophils Auto (Bld) [#/Vo l]on 02-15-2024 Neutrophils (Bld) [#/Vol] 4.1 10 3/uL 1.4-6.5 [facility] Neutrophils/100 WBC Auto (Bl d)on 02-15-2024 Neutrophils/100 WBC (Bld) 86.9 % 43.0-75.0 [facility] No Panel Informationon 02-14 Eosinophils # (Auto) 0.0 10 3/uL 0.0-0.7 [facility] Immature Granulocyte # (Auto) 0.03 10 3/uL 0.00-0.03 [facility] Platelet mean volume Auto (B ld) [Entitic vol]on 02-15-2024 Platelet mean volume (Bld) [Entitic vol] 10.6 fL 9.5-13.5 [facility] Platelets Auto (Bld) [#/Vol] on 02-15-2024 Platelets (Bld) [#/Vol] 60 10 3/uL 150-450 [facility] RBC Auto (Bld) [#/Vol]on RBC (Bld) [#/Vol] 2.91 10 6/uL 4.70-6.10 [facility] Serum or plasma albumin/glob ulin mass ratioon 02-15-2024 Albumin/Globulin [Mass ratio] 1.1 {ratio} [facility] Serum or plasma anion gap de terminationon 02-15-2024 Anion gap [Moles/Vol] 12.4 mmol/L [facility] Basophils/100 WBC Manual cnt (Bld)on 02-14-2024 Basophils/100 WBC (Bld) 1.0 % 0.2-2.0 [facility] Casts typing in urine sedime nt by light microscopyon 02-14-2024 Casts LM Nom (Urine sed) NONE SEEN #/LPF NONE S EEN [facility] Eosinophils/100 WBC Manual c nt (Bld)on 02-14-2024 Eosinophils/100 WBC (Bld) 0.0 % 0.9-7.0 [facility] Erythrocyte distribution wid th Auto (RBC) [Ratio]on 02-14-2024 Erythrocyte distribution width (RBC) [Ratio] 15.0 % 11.0-15.0 [facility] Estimated glomerular filtrat ion rate (GFR) non- Americanon 02-14-2024 GFR/1.73 sq M.predicted among non-blacks MDRD (S/P/Bld) [Vol rate/Area] mL/min/{1.73_m2} >=60 [facility] Hematocrit Auto (Bld) [Volum e fraction]on 02-14-2024 Hematocrit (Bld) [Volume fraction] 28.2 % 42.0-54.0 [facility] Hemoglobin [Mass/volume] in Bloodon 02-14-2024 Hemoglobin (Bld) [Mass/Vol] 9.6 g/dL 14.0-18.0 [facility] Laboratory - Chemistry and C hemistry - challengeon 02-14-2024 Bilirubin Ql (U) Negative NEGATIVE [facility] Glucose (U) [Mass/Vol] 250 mg/dL NEGATIVE [facility] Ketones Ql (U) Negative NEGATIVE [facility] pH (U) 5.5 [pH] 5.0-9.0 [facility] Specific gravity (U) [Rel density] 1.025 1.005-1.025 [facility] Urobilinogen Qn (U) 0.2 {Jun'U}/dL 0.2-1.0 [facility] Calcium [Mass/Vol] 8.7 mg/dL 8.5-10.1 [facility] Chloride [Moles/Vol] 106 mmol/L 98-107 [facility] CO2 [Moles/Vol] 30.0 mmol/L 21.0-32.0 [facility] Creatinine [Mass/Vol] 1.12 mg/dL 0.70-1.30 [facility] GFR/1.73 sq M.predicted MDRD (S/P/Bld) [Vol rate/Area] mL/min/{1.73_m2} >=60 [facility] Glucose [Mass/Vol] 251 mg/dL 74-106 [facility] Potassium [Moles/Vol] 4.1 mmol/L 3.5-5.1 [facility] Sodium [Moles/Vol] 142 mmol/L 136-145 [facility] Urea nitrogen [Mass/Vol] 29.0 mg/dL 7.0-18.0 [facility] Urea nitrogen/Creatinine [Mass ratio] 25.9 mg/mg [facility] Laboratory - Hematology and Cell countson 02-14-2024 Band form neutrophils/100 WBC (Bld) 2.0 % 0-5 [facility] Lymphocytes/100 WBC (Bld) 1.0 % 20.5-60.0 [facility] Monocytes/100 WBC (Bld) 4.0 % 1.7-12.0 [facility] Laboratory - Microbiology an d Antimicrobial susceptibilityOrdered By: Bj Ortega on 02-14-2024 Bacteria identified Cx Nom (U) [facility] - Specimen inform ationon 02-14-2024 Appearance (U) CLEAR CLEAR [facility] Color (U) YELLOW YELLOW [facility] Laboratory - Urinalysison Amorphous sediment LM Ql (Urine sed) FEW [facility] Leukocyte esterase Test strip Ql (U) Negative NEGATIVE [facility] Nitrite Ql (U) Positive NEGATIVE [facility] Protein Ql (U) >=300 mg/dL NEG/TRACE [facility] Leukocytes [#/volume] correc karina for nucleated erythrocytes in Blood by Automated counon 02-14-2024 WBC corrected for nucl RBC Auto (Bld) [#/Vol] 4.5 10 3/uL 4.0-11.0 [facility] MCH Auto (RBC) [Entitic mass ]on 02-14-2024 MCH (RBC) [Entitic mass] 34.2 pg 25.9-34.0 [facility] MCHC Auto (RBC) [Mass/Vol]on 02-14-2024 MCHC (RBC) [Mass/Vol] 34.0 g/dL 29.9-35.2 [facility] [place] MCV Auto (RBC) [Entitic vol] on 02-14-2024 MCV (RBC) [Entitic vol] 100.4 fL 80.0-94.0 [facility] Mucus LM Ql (Urine sed)on Mucus Ql (Urine sed) NONE SEEN NONE SEEN [facility] No Panel Informationon 02-13 Urine Bacteria LARGE #/HPF NONE SEEN [facility] Urine Culture Reflexed YES [facility] Urine Occult Blood LARGE NEGATIVE [facility] Urine Other Crystals Seen #/HPF None Seen [facility] Urine RBC 0-2 #/HPF 0-2 [facility] Urine Squamous Epithelial Cells RARE #/LPF NONE/RARE [facility] Urine WBC 2-5 #/HPF NONE SEEN [facility] Absolute Basophils (Manual) 0.04 10 3/uL 0.00-0.10 [facility] Band Neutrophils # (Manual) 0.1 10 3/uL 0.0-0.3 [facility] Eosinophils # (Manual) 0.00 10 3/uL 0.00-0.70 [facility] Lymphocytes # (Manual) 0.04 10 3/uL 1.20-3.80 [facility] Monocytes # (Manual) 0.18 10 3/uL 0.30-0.80 [facility] Neutrophils # (Manual) 4.14 10 3/uL 1.4-6.5 [facility] Platelet mean volume Auto (B ld) [Entitic vol]on 02-14-2024 Platelet mean volume (Bld) [Entitic vol] 10.4 fL 9.5-13.5 [facility] Platelets Auto (Bld) [#/Vol] on 02-14-2024 Platelets (Bld) [#/Vol] 65 10 3/uL 150-450 [facility] RBC Auto (Bld) [#/Vol]on RBC (Bld) [#/Vol] 2.81 10 6/uL 4.70-6.10 [facility] Segmented neutrophils/100 WB C Manual cnt (Bld)on 02-14-2024 Segmented neutrophils/100 WBC (Bld) 92.0 % [facility] Serum or plasma anion gap de terminationon 02-14-2024 Anion gap [Moles/Vol] 10.1 mmol/L [facility] 12-12-2022 Screens [id number] 4#[id number]:127 Normal [facility] Ambulatory Visit Summaryon 0 12-11-2022 Ambulatory [...] When: Only if needed Comments: PRN Where: [address] [place] [address]- Medications What How Much When Instructions Unchanged [...] and fortified (more content not included)... Normal [facility] Lab Reportson 12-11-2022 Lab Reports [id number] 7C#[id number]:127 Normal [facility] Patient Educationon 12-12-19 Patient Education Urology [...] Rhubarb. ? Beets. ? Potato chips and irish fries. ? Nuts. ? If you regularly take a diuretic medicine, make sure to eat at least 1?2 fruits or vegetables high in potassium each day. These include: ? Avocado. ? Banana. ? [place], prune, carrot, or tomato juice. ? Baked [...] salt. Salad (more content not included)... Normal [facility] RAD - MISCon 12-11-2022 [facility] MIS [id number] CE#[id number]:127 Normal [facility] Urology Office/Clinic Noteon 12-11-2022 Urology Office/Clinic [...] HUIZAR, Dominic Handley, URL Only if needed [address] [place] [address]- Additional Instructions: PRN Patient Education Dietary Guidelines [...] Cancer o (more content not included)... Normal [facility] Comment on above: Result Comment: Elec [...] by: SHAKA BLANCO Date: 2022-12-09 12:10 Normal [facility] OXCARBAZEPINE / TRILEPTALon 11-10-2022 Oxcarbazepine 40 ug/mL Critically high 10-35 [facility] Comment on above: Result Comment: This test was developed and its performance characteristics determined by [employer]. It has not been cleared or approved by the Food and Drug Administration. Detection Limit = 1 Performed By: #### B MP #### [facility] [address] [place] [address] Dr. Kelly Mukherjee CBC AUTO DIFFon 10-05-2022 BASO # 0.0 103/ul Normal 0.0-0.1 [facility] Comment on above: Performed By: #### B MP #### [facility] [address] [place] [address] Dr. Kelly Mukherjee Basophils/100 WBC (Bld) 0.3 % Normal 0.2-2.0 [facility] Comment on above: Performed By: #### B MP #### [facility] [address] [place] [address] Dr. Kelly Mukherjee EO # 0.1 103/ul Normal 0.0-0.7 [facility] Comment on above: Performed By: #### B MP #### [facility] [address] [place] [address] Dr. Kelly Mukherjee Eosinophils/100 WBC (Bld) 2.2 % Normal 0.9-7.0 [facility] Comment on above: Performed By: #### B MP #### [facility] [address] [place] [address] Dr. Kelly Mukherjee Erythrocyte distribution width (RBC) [Ratio] 14.8 % Normal 11.0-15.0 [facility] Comment on above: Performed By: #### B MP #### [facility] [address] [place] [address] Dr. Kelly Mukherjee Hematocrit (Bld) [Volume fraction] 29.5 % Critically low 42.0-54.0 [facility] Comment on above: Performed By: #### B MP #### [facility] [address] [place] [address] Dr. Kelly Mukherjee Hemoglobin (Bld) [Mass/Vol] 10.3 g/dL Critically low 14.0-18.0 [facility] Comment on above: Performed By: #### B MP #### [facility] [address] [place] [address] Dr. Kelly Mukherjee IG # 0.01 10e3/ul Normal 0.00-0.03 [facility] Comment on above: Performed By: #### B MP #### [facility] [address] [place] [address] Dr. Kelly Mukherjee IG % 0.3 % Normal 0.0-0.5 [facility] Comment on above: Performed By: #### B MP #### [facility] [address] [place] [address] Dr. Kelly Mukherjee LYMPH # 0.5 103/ul Critically low 1.2-3.8 [facility] Comment on above: Performed By: #### B MP #### [facility] [address] [place] [address] Dr. Kelly Mukherjee Lymphocytes/100 WBC (Bld) 16.0 % Critically low 20.5-6 0.0 [facility] Comment on above: Performed By: #### B MP #### [facility] [address] [place] [address] Dr. Kelly Mukherjee MANUAL DIFF REQ NO Normal [facility] Comment on above: Performed By: #### B MP #### [facility] [address] [place] [address] Dr. Kelly Mukherjee MCH (RBC) [Entitic mass] 34.1 pg Critically high 25.9-3 4.0 [facility] Comment on above: Performed By: #### B MP #### [facility] [address] [place] [address] Dr. Kelly Mukherjee MCHC (RBC) [Mass/Vol] 34.9 g/dL Normal 29.9-35.2 [facility] Comment on above: Performed By: #### B MP #### [facility] [address] [place] [address] Dr. Kelly Mukherjee MCV (RBC) [Entitic vol] 97.7 fL Critically high 80.0-94 .0 [facility] Comment on above: Performed By: #### B MP #### [facility] [address] [place] [address] Dr. Kelly Mukherjee MONO # 0.2 103/ul Critically low 0.3-0.8 [facility] Comment on above: Performed By: #### B MP #### [facility] [address] [place] [address] Dr. Kelly Mukherjee Monocytes/100 WBC (Bld) 5.8 % Normal 1.7-12.0 [facility] Comment on above: Performed By: #### B MP #### [facility] [address] [place] [address] Dr. Kelly Mukherjee NEUT # 2.4 103/ul Normal 1.4-6.5 [facility] Comment on above: Performed By: #### B MP #### [facility] [address] [place] [address] Dr. Kelly Mukherjee Neutrophils/100 WBC (Bld) 75.4 % Critically high 43.0- 75.0 [facility] Comment on above: Performed By: #### B MP #### [facility] [address] [place] [address] Dr. Kelly Mukherjee Platelet mean volume (Bld) [Entitic vol] 10.1 fL Normal 9.5-13.5 [facility] Comment on above: Performed By: #### B MP #### [facility] [address] [place] [address] Dr. Kelly Mukherjee PLT 63 103/ul Critically low 150-450 [facility] Comment on above: Performed By: #### B MP #### [facility] [address] [place] [address] Dr. Kelly Mukherjee RBC 3.02 106/ul Critically low 4.70-6.10 [facility] Comment on above: Performed By: #### B MP #### [facility] [address] [place] [address] Dr. Kelly Mukherjee WBC 3.1 103/ul Critically low 4.0-11.0 [facility] Comment on above: Performed By: #### B MP #### [facility] [address] [place] [address] Dr. Kelly Mukherjee ER URINE PROFILEon 2 Bilirubin Ql (U) Negative Normal NEGATIVE [facility] Comment on above: Performed By: #### B MP #### [facility] [address] [place] [address] Dr. Kelly Mukherjee Clarity (U) CLEAR Normal CLEAR [facility] Comment on above: Performed By: #### B MP #### [facility] [address] [place] [address] Dr. Kelly Mukherjee Color (U) LT. YELLOW Normal YELLOW [facility] Comment on above: Performed By: #### B MP #### [facility] [address] [place] [address] Dr. Kelly [place] A micrscopic examination will be performed if indicated. Normal [facility] Comment on above: Performed By: #### B MP #### [facility] [address] [place] [address] Dr. Kelly Mukherjee Glucose Ql (U) 250 mg/dl Abnormal NEGATIVE [facility] Comment on above: Performed By: #### B MP #### [facility] [address] [place] [address] Dr. Kelly Mukherjee Hemoglobin Ql (U) Negative Normal NEGATIVE [facility] Comment on above: Performed By: #### B MP #### [facility] [address] [place] [address] Dr. Kelly Mukherjee Ketones Ql (U) Negative Normal NEGATIVE [facility] Comment on above: Performed By: #### B MP #### [facility] [address] [place] [address] Dr. Kelly Mukherjee LEUKOCYTES Negative Normal NEGATIVE [facility] Comment on above: Performed By: #### B MP #### [facility] [address] [address] [address] Kelly Mukherjee Nitrite Ql (U) Negative Normal NEGATIVE [facility] Comment on above: Performed By: #### B MP #### [facility] [address] [address] [address] Kelly Mukherjee pH (U) 7.0 [pH] Normal 5-9 [facility] Comment on above: Performed By: #### B MP #### [facility] [address] [address] [address] Kelly Mukherjee Protein (U) [Mass/Vol] 100 mg/dL Abnormal NEGAT NADER/ TRACE [facility] Comment on above: Performed By: #### B MP #### [facility] [address] [place] [address] Dr. Kelly Mukherjee SPEC GRAVITY 1.020 Normal 1.005-<=1.02 5 [facility] Comment on above: Performed By: #### B MP #### [facility] [address] [address] [address] Kelly Mukherjee UR MICRO IND NOT INDICATED Normal [facility] Comment on above: Performed By: #### B MP #### [facility] [address] [address] [address] Kelly Mukherjee Urobilinogen Qn (U) 0.2 {Jun'U}/dL Normal 0.2 - 1. 0 [facility] Comment on above: Performed By: #### B MP #### [facility] [address] [place] [address] Dr. Kelly Mukherjee POINT OF CARE GLUCOSEon 09-08 Glucose [Mass/Vol] 253 mg/dL Critically high 74-106 [facility] Comment on above: Performed By: #### P OCGLUC #### [facility] [address] [place] [address] Dr. Kelly Mukherjee PROF CHEM 8 (BAS METB)on Anion gap [Moles/Vol] 8.5 mmol/L Normal [facility] Comment on above: Performed By: #### B MP #### [facility] [address] [address] [address] Kelly Mukherjee Calcium [Mass/Vol] 8.7 mg/dL Normal 8.5-10.1 [facility] Comment on above: Performed By: #### B MP #### [facility] [address] [address] [address] Kelly Mukherjee Chloride [Moles/Vol] 106 mmol/L Normal 98-107 [facility] Comment on above: Performed By: #### B MP #### [facility] [address] [address] [address] Kelly Mukherjee CO2 [Moles/Vol] 29.0 mmol/L Normal 21.0-32.0 [facility] Comment on above: Performed By: #### B MP #### [facility] [address] [address] [address] Kelly Mukherjee Creatinine [Mass/Vol] 0.84 mg/dL Normal 0.70-1.30 [facility] Comment on above: Performed By: #### B MP #### [facility] [address] [address] [address] Kelly Mukherjee EGFR-AF SAMOAN >60 Normal >=60 [facility] Comment on above: Performed By: #### B MP #### [facility] [address] [address] [address] Kelly Mukherjee EGFR-NON AF SAMOAN >60 Normal >=60 [facility] Comment on above: Performed By: #### B MP #### [facility] [address] [address] [address] Kelly Mukherjee Glucose [Mass/Vol] 119 mg/dL Critically high 74-106 [facility] Comment on above: Performed By: #### B MP #### [facility] [address] [address] [address] Kelly Mukherjee Potassium [Moles/Vol] 3.5 mmol/L Normal 3.5-5.1 [facility] Comment on above: Performed By: #### B MP #### [facility] [address] [address] [address] Kelly Mukherjee Sodium [Moles/Vol] 140 mmol/L Normal 136-145 [facility] Comment on above: Performed By: #### B MP #### [facility] [address] [place] [address] Dr. Kelly Mukherjee Urea nitrogen [Mass/Vol] 21.0 mg/dL Critically high 7.0-18 .0 [facility] Comment on above: Performed By: #### B MP #### [facility] [address] [place] [address] Dr. Kelly Mukherjee Urea nitrogen/Creatinine [Mass ratio] 25.0 mg/mg Normal [facility] Comment on above: Performed By: #### B MP #### [facility] [address] [place] [address] Dr. Kelly Mukherjee CBC AUTO DIFFon 10-04-2022 BASO # 0.0 103/ul Normal 0.0-0.1 [facility] Comment on above: Performed By: #### P OCGLUC #### [facility] [address] [place] [address] Dr. Kelly Mukherjee Basophils/100 WBC (Bld) 0.2 % Normal 0.2-2.0 [facility] Comment on above: Performed By: #### P OCGLUC #### [facility] [facility] [address] [place] [address] Dr. Kelly Mukherjee EO # 0.0 103/ul Normal 0.0-0.7 [facility] Comment on above: Performed By: #### P OCGLUC #### [facility] [address] [place] [address] Dr. Kelly Mukherjee Eosinophils/100 WBC (Bld) 1.0 % Normal 0.9-7.0 [facility] Comment on above: Performed By: #### P OCGLUC #### [facility] [address] [place] [address] Dr. Kelly Mukherjee Erythrocyte distribution width (RBC) [Ratio] 15.1 % Critically high 11.0-15.0 [facility] Comment on above: Performed By: #### P OCGLUC #### [facility] [address] [address] [address] Kelly Mukherjee Hematocrit (Bld) [Volume fraction] 30.3 % Critically low 42.0-54.0 [facility] Comment on above: Performed By: #### P OCGLUC #### [facility] [address] [address] [address] Kelly Mukherjee Hemoglobin (Bld) [Mass/Vol] 10.7 g/dL Critically low 14.0-18.0 [facility] Comment on above: Performed By: #### P OCGLUC #### [facility] [address] [address] [address] Kelly Mukherjee IG # 0.01 10e3/ul Normal 0.00-0.03 [facility] Comment on above: Performed By: #### P OCGLUC #### [facility] [address] [address] [address] Kelly Mukherjee IG % 0.2 % Normal 0.0-0.5 [facility] Comment on above: Performed By: #### P OCGLUC #### [facility] [address] [address] [address] Kelly Mukherjee LYMPH # 0.4 103/ul Critically low 1.2-3.8 [facility] Comment on above: Performed By: #### P OCGLUC #### [facility] [address] [address] [address] Kelly Mukherjee Lymphocytes/100 WBC (Bld) 8.9 % Critically low 20.5-6 0.0 [facility] Comment on above: Performed By: #### P OCGLUC #### [facility] [address] [address] [address] Kelly Mukherjee MANUAL DIFF REQ NO Normal [facility] Comment on above: Performed By: #### P OCGLUC #### [facility] [address] [address] [address] Kelly Mukherjee MCH (RBC) [Entitic mass] 34.1 pg Critically high 25.9-3 4.0 [facility] Comment on above: Performed By: #### P OCGLUC #### [facility] [address] [address] [address] Kelly Mukhejree MCHC (RBC) [Mass/Vol] 35.3 g/dL Critically high 29.9-35.2 [facility] Comment on above: Performed By: #### P OCGLUC #### [facility] [address] [address] [address] Kelly Mukherjee MCV (RBC) [Entitic vol] 96.5 fL Critically high 80.0-94 .0 [facility] Comment on above: Performed By: #### P OCGLUC #### [facility] [address] [address] [address] Kelly Mukherjee MONO # 0.2 103/ul Critically low 0.3-0.8 [facility] Comment on above: Performed By: #### P OCGLUC #### [facility] [address] [address] [address] Kelly Mukherjee Monocytes/100 WBC (Bld) 6.0 % Normal 1.7-12.0 [facility] Comment on above: Performed By: #### P OCGLUC #### [facility] [address] [address] [address] Kelly Mukherjee NEUT # 3.4 103/ul Normal 1.4-6.5 [facility] Comment on above: Performed By: #### P OCGLUC #### [facility] [address] [address] [address] Kelly Mukherjee Neutrophils/100 WBC (Bld) 83.7 % Critically high 43.0- 75.0 [facility] Comment on above: Performed By: #### P OCGLUC #### [facility] [address] [address] [address] Kelly Mukherjee Platelet mean volume (Bld) [Entitic vol] 10.2 fL Normal 9.5-13.5 [facility] Comment on above: Performed By: #### P OCGLUC #### [facility] [address] [address] [address] Kelly Mukherjee PLT 76 103/ul Critically low 150-450 [facility] Comment on above: Performed By: #### P OCGLUC #### [facility] [address] [place], [place] [address] Dr. Kelly Mukherjee RBC 3.14 106/ul Critically low 4.70-6.10 [facility] Comment on above: Performed By: #### P OCGLUC #### [facility] [address] [place], [place] [address] Dr. Kelly Mukherjee WBC 4.0 103/ul Normal 4.0-11.0 [facility] Comment on above: Performed By: #### P OCGLUC #### [facility] [address] [place], [place] [address] HEAD WO CONon [...] SYLVESTER BARBOUR Date: 2022-10-04 15:34 Normal [facility]08 SARS-CoV-2 (COVID-19) RNA ABIMBOLA+probe Ql (Unsp spec) Not detected Normal NOT DETECTED [facility] Comment on above: Result Comment: When [...] for this test is supported by the [place] of Health and Human Service's declaration that [...] used). Performed By: #### C VDTBH #### [facility] [address] [place] [address] Dr. Kelly Mukherjee POINT OF CARE GLUCOSEon 09-08 Glucose [Mass/Vol] 134 mg/dL Critically high 74-106 [facility] Comment on above: Performed By: #### P OCGLUC #### [facility] [address] [place] [address] Dr. Kelly Mukherjee PROF CHEM 8 (BAS METB)on Anion gap [Moles/Vol] 12.9 mmol/L Normal [facility] Comment on above: Performed By: #### B MP #### [facility] [address] [place] [address] Dr. Kelly Mukherjee Calcium [Mass/Vol] 9.0 mg/dL Normal 8.5-10.1 [facility] Comment on above: Performed By: #### B MP #### [facility] [address] [place] [address] Dr. Kelly Mukherjee Chloride [Moles/Vol] 106 mmol/L Normal 98-107 [facility] Comment on above: Performed By: #### B MP #### [facility] [address] [place] [address] Dr. Kelly Mukherjee CO2 [Moles/Vol] 27.2 mmol/L Normal 21.0-32.0 [facility] Comment on above: Performed By: #### B MP #### [facility] [address] [address] [address] Kelly Mukherjee Creatinine [Mass/Vol] 0.98 mg/dL Normal 0.70-1.30 [facility] Comment on above: Performed By: #### B MP #### [facility] [address] [address] [address] Kelly Mukherjee EGFR-AF SAMOAN >60 Normal >=60 [facility] Comment on above: Performed By: #### B MP #### [facility] [address] [place] [address] Dr. Kelly Mukherjee EGFR-NON AF SAMOAN >60 Normal >=60 [facility] Comment on above: Performed By: #### B MP #### [facility] [address] [place] [address] Dr. Kelly Mukherjee Glucose [Mass/Vol] 146 mg/dL Critically high 74-106 [facility] Comment on above: Performed By: #### B MP #### [facility] [address] [place] [address] Dr. Kelly Mukherjee Potassium [Moles/Vol] 4.1 mmol/L Normal 3.5-5.1 [facility] Comment on above: Performed By: #### B MP #### [facility] [address] [place] [address] Dr. Kelly Mukherjee Sodium [Moles/Vol] 142 mmol/L Normal 136-145 [facility] Comment on above: Performed By: #### B MP #### [facility] [address] [address] [address] Kelly Mukherjee Urea nitrogen [Mass/Vol] 24.0 mg/dL Critically high 7.0-18 .0 [facility] Comment on above: Performed By: #### B MP #### [facility] [address] [place] [address] Dr. Kelly Mukherjee Urea nitrogen/Creatinine [Mass ratio] 24.5 mg/mg Normal [facility] Comment on above: Performed By: #### B MP #### [facility] [address] [place] [address] Dr. Kelly Mukherjee PROTIMEon 10-04-2022 INR Coag (PPP) [Relative time] 1.06 {INR} Normal [facility] Comment on above: Performed By: #### C VDTBH #### [facility] [address] [place] [address] Dr. Kelly Mukherjee INR GUIDELINES SEE BELOW Normal [facility] Comment on above: Result Comment: JULIANA RED INR: 2.0 - 3.0 CONDITIONS NOT LISTED BELOW 2.5 - 3.5 FOR PROSTHETIC HEART VALVE REPLACEMENT 2.5 - 3.5 RECURRENT THROMBOSIS Performed By: #### C VDTBH #### [facility] [address] [place] [address] Dr. Kelly Mukherjee PT Coag (PPP) [Time] 11.4 s Normal 9.0-11.6 [facility] Comment on above: Performed By: #### C VDTBH #### [facility] [address] [place] [address] Dr. Kelly Mukherjee PTTon 10-04-2022 aPTT Coag (Bld) [Time] 24.5 s Normal 22.3-36.2 [facility] Comment on above: Performed By: #### C VDTBH #### [facility] [address] [place] [address] Dr. Kelly Mukherjee TROPONIN, HIGH SENSITIVITYon 10-04-2022 HSTROP 7.1 pg/mL Normal 4.0-76.1 [facility] Comment on above: Result Comment: CUT- OFF POINTS HAVE BEEN ESTABLISHED BASED ON THE FOURTH UNIVERSAL DEFINITIONS OF MYOCARDIAL INFARCTION. THE UPPER REFERENCE LIMIT (URL) OF TROPONIN, DEFINED THE 99TH PERCENTILE OF cTnI DISTRIBUTION IN A REFERENCE POPULATION, HAS BEEN CONFIRMED THE DECISION THRESHOLD FOR ME DIAGNOSIS. Performed By: #### C VDTBH #### [facility] [address] [place] [address] Dr. Kelly Mukherjee XR CHEST 1 Von [...] by: SYLVESTER BARBOUR Date: 2022-10-04 15:[address] [facility] BRIAN GOULD ([id number]) 1945 M Date Time Provider Department 09/01/22 [...] Fully Assessed Reason for Visit: Care Coordination [2755] Cmt: Lab Results Prescriptions as of 09/01/2022 [...] Status:Closed by ROLANDO BOWEN on 09/01/22 Normal [facility] CBC W Auto Differential pane l (Bld)on 08-30-2022 Basophils (Bld) [#/Vol] 10*3/uL Normal <0.11 [facility] Comment on above: Order Comment: Speci men Type: BLOOD SPECIMEN [facility]ing Facility[facility] Address: [address] [place] [phone] Performed By: #### 5 7021-8 #### [facility] CLIA [id number] [address] [place] [address] Basophils/100 WBC (Bld) 0.5 % Normal [facility] Comment on above: Order Comment: Speci men Type: BLOOD SPECIMEN Ordering Facility: [facility] Address: [address] [place] [address] Performed By: #### 5 7021-8 #### [facility] CLIA [id number] [address] [place] [address] Differential cell count method Nom (Bld) Auto Normal [facility] Comment on above: Order Comment: Speci men Type: BLOOD SPECIMEN Ordering Facility: [facility] Address: [address] [place] [address] Performed By: #### 5 7021-8 #### [facility] CLIA [id number] [address] [place] [address] Eosinophils (Bld) [#/Vol] 0.08 10*3/uL Normal <0.46 [facility] Comment on above: Order Comment: Speci men Type: BLOOD SPECIMEN Ordering Facility: [facility] Address: [address] [place] [address] Performed By: #### 5 7021-8 #### [facility] CLIA [id number] [address] [place] [address] Eosinophils/100 WBC (Bld) 2.1 % Normal [facility] Comment on above: Order Comment: Speci men Type: BLOOD SPECIMEN Ordering Facility: [facility] Address: [address] [place] [address] Performed By: #### 5 7021-8 #### [facility] CLIA [id number] [address] [place] [address] Erythrocyte distribution width (RBC) [Ratio] 15.9 % High 11.5-15.0 [facility] Comment on above: Order Comment: Speci men Type: BLOOD SPECIMEN Ordering Facility: [facility] Address: [address] [address] Performed By: #### 5 7021-8 #### [facility] CLIA [id number] [address] [place] [address] Hematocrit (Bld) [Volume fraction] 33.5 % Low 39.0-51.0 [facility] Comment on above: Order Comment: Speci men Type: BLOOD SPECIMEN Ordering Facility: [facility] Address: [address] [address] Performed By: #### 5 7021-8 #### [facility] CLIA [id number] [address] [place] [address] Hemoglobin (Bld) [Mass/Vol] 11.4 g/dL Low 13.0-17.0 [facility] Comment on above: Order Comment: Speci men Type: BLOOD SPECIMEN Ordering Facility: [facility] Address: [address] [place] [address] Performed By: #### 5 7021-8 #### [facility] CLIA [id number] [address] [place] [address] Immature granulocytes (Bld) [#/Vol] 10*3/uL Normal <0.10 [facility] Comment on above: Order Comment: Speci men Type: BLOOD SPECIMEN Ordering Facility: [facility] Address: [address] [address] Performed By: #### 5 7021-8 #### [facility] CLIA [id number] [address] [place] [address] Immature granulocytes/100 WBC (Bld) 0.3 % Normal [facility] Comment on above: Order Comment: Speci men Type: BLOOD SPECIMEN Ordering [facility] Address: [address] [address] Performed By: #### 5 7021-8 #### [facility] CLIA [id number] [address] [place] [address] Lymphocytes (Bld) [#/Vol] 0.60 10*3/uL Low 1.00-4.0 0 [facility] Comment on above: Order Comment: Speci men Type: BLOOD SPECIMEN Ordering Facility: [facility] Address: [address] [address] Performed By: #### 5 7021-8 #### [facility] CLIA [id number] [address] [place] [address] Lymphocytes/100 WBC (Bld) 16.1 % Normal [facility] Comment on above: Order Comment: Speci men Type: BLOOD SPECIMEN Ordering [facility] Address: [address] [address] Performed By: #### 5 7021-8 #### [facility] CLIA [id number] [address] [place] [address]32 MCH (RBC) [Entitic mass] 33.3 pg Normal 26.0-34.0 [facility] Comment on above: Order Comment: Speci men Type: BLOOD SPECIMEN Ordering [facility] Address: [address] [address] Performed By: #### 5 7021-8 #### [facility] CLIA [id number] [address] [place] [address]46 MCHC (RBC) [Mass/Vol] 34.0 g/dL Normal 30.5-36.0 [facility] Comment on above: Order Comment: Speci men Type: BLOOD SPECIMEN Ordering [facility] Address: [address] [address] Performed By: #### 5 7021-8 #### [facility] CLIA [id number] [address] [place] [address]509 MCV (RBC) [Entitic vol] 98.0 fL Normal 80.0-100.0 [facility] Comment on above: Order Comment: Speci men Type: BLOOD SPECIMEN Ordering [facility] Address: [address] [address] Performed By: #### 5 7021-8 #### [facility] CLIA [id number] [address] [place] [address]18 Monocytes (Bld) [#/Vol] 0.26 10*3/uL Normal <0.87 [facility] Comment on above: Order Comment: Speci men Type: BLOOD SPECIMEN Ordering [facility] Address: [address] [place] [address] Performed By: #### 5 7021-8 #### [facility] CLIA [id number] [address] [place] [address]23 Monocytes/100 WBC (Bld) 7.0 % Normal [facility] Comment on above: Order Comment: Speci men Type: BLOOD SPECIMEN Ordering [facility] Address: [address] [place] [address] Performed By: #### 5 7021-8 #### [facility] CLIA [id number] [address] [place] [address] Neutrophils (Bld) [#/Vol] 2.76 10*3/uL Normal 1.45-7.5 0 [facility] Comment on above: Order Comment: Speci men Type: BLOOD SPECIMEN Ordering [facility] Address: [address] [place] [address] Performed By: #### 5 7021-8 #### [facility] CLIA [id number] [address] [place] [address] 12691 Neutrophils/100 WBC (Bld) 74.0 % Normal [facility] Comment on above: Order Comment: Speci men Type: BLOOD SPECIMEN Order[facility] Address: [address] [place] [address] Performed By: #### 5 7021-8 #### [facility] CLIA [id number] [address] [place] [address]7924 Nucleated RBC (Bld) [#/Vol] 10*3/uL Normal <0.01 [facility] Comment on above: Order Comment: Speci men Type: BLOOD SPECIMEN Order[facility] Address: [address] [address] Performed By: #### 5 7021-8 #### [facility] CLIA [id number] [address] [place] [address] 20985 Nucleated RBC/100 WBC (Bld) [Ratio] 0.0 /100 WBC Normal [facility] Comment on above: Order Comment: Speci men Type: BLOOD SPECIMEN Order[facility] Address: [address] [place] [address] Performed By: #### 5 7021-8 #### [facility] CLIA [id number] [address] [place] [address]506 Platelet mean volume (Bld) [Entitic vol] 9.7 fL Normal 9.0-12.7 [facility] Comment on above: Order Comment: Speci men Type: BLOOD SPECIMEN Ordering [facility] Address: [address] [place] [address] Performed By: #### 5 7021-8 #### [facility] CLIA [id number] [address] [place] [address] 25098 Platelets (Bld) [#/Vol] 81 10*3/uL Low 150-400 [facility] Comment on above: Order Comment: Speci men Type: BLOOD SPECIMEN Order[facility] Address: [address] [place] [address] [facility] Performed By: #### 5 7021-8 #### [facility] CLIA [id number] [address] [place] [address] 33531 RBC (Bld) [#/Vol] 3.42 10*6/uL Low 4.20-6.00 [facility] Comment on above: Order Comment: Speci men Type: BLOOD SPECIMEN Ordering [facility] Address: [address] [place] [address] Performed By: #### 5 7021-8 #### [facility] CLIA [id number] [address] [place] [address] WBC (Bld) [#/Vol] 3.73 10*3/uL Normal 3.70-11.00 [facility] Comment on above: Order Comment: Speci men Type: BLOOD SPECIMEN Ordering [facility] Address: [address] [place] [phone] Performed By: #### 5 7021-8 #### [facility] CLIA [id number] [address] [place] [address] Basophils (Bld) [#/Vol] <0.11 k/uL [facility] Basophils/100 WBC (Bld) 0.5 % C [facility] Differential cell count method Nom (Bld) Auto [facility] Eosinophils (Bld) [#/Vol] 0.08 10*3/uL <0.46 k/ uL [facility] Eosinophils/100 WBC (Bld) 2.1 % [facility] Erythrocyte distribution width (RBC) [Ratio] 15.9 % High 11.5 - 15.0 % [facility] Hematocrit (Bld) [Volume fraction] 33.5 % Low 39.0 - 51.0 % [facility] Hemoglobin (Bld) [Mass/Vol] 11.4 g/dL Low 13.0 - 17.0 g/dL [facility] Immature granulocytes (Bld) [#/Vol] <0.10 k/uL [facility] Immature granulocytes/100 WBC (Bld) 0.3 % [facility] Lymphocytes (Bld) [#/Vol] 0.60 10*3/uL Low 1. 00 - 4.00 k/uL [facility] Lymphocytes/100 WBC (Bld) 16.1 % [facility] MCH (RBC) [Entitic mass] 33.3 pg 26. 0 - 34.0 pg [facility] MCHC (RBC) [Mass/Vol] 34.0 g/dL 30.5 - 36.0 g/dL [facility] MCV (RBC) [Entitic vol] 98.0 fL 80.0 - 100.0 fL [facility] Monocytes (Bld) [#/Vol] 0.26 10*3/uL <0.87 k/uL [facility] Monocytes/100 WBC (Bld) 7.0 % [facility] Neutrophils (Bld) [#/Vol] 2.76 10*3/uL 1. 45 - 7.50 k/uL [facility] Neutrophils/100 WBC (Bld) 74.0 % [facility] Nucleated RBC (Bld) [#/Vol] <0.01 k/uL [facility] Nucleated RBC/100 WBC (Bld) [Ratio] 0.0 /100 WBC [facility] Platelet mean volume (Bld) [Entitic vol] 9.7 fL 9.0 - 12.7 fL [facility] Platelets (Bld) [#/Vol] 81 10*3/uL Low 150 - 400 k/uL [facility] RBC (Bld) [#/Vol] 3.42 10*6/uL Low 4.20 - 6.0 0 m/uL [facility] WBC (Bld) [#/Vol] 3.73 10*3/uL 3.70 - 11. 00 k/uL [facility] CNOVSPon 08-30-2022 CNOVSP Visit (SP) Office ([place]) ---- BRIAN GOULD ([id number]) 1945 M Date Time Provider Department 08/30/22 3:00 PM TRICIA CRESPO During your visit today, we recorded the following information about you: Temperature Pulse Respiration Blood pressure 97.7 degrees 59/minute 18/minute 158/59 Weight Height 73.6 kg 1.703 m Tricia Crespo MD 08/30/2022 3:09 PM Signed Patient: Brian Gould Location: [facility] : 1945 Attending Physician: Dr. Vazquez Quinonez [...] distress, pl (more content not included)... Normal [facility] Comprehensive metabolic 2000 panelon 08-30-2022 Albumin [Mass/Vol] 4.5 g/dL Normal 3.9-4.9 [facility] Comment on above: Order Comment: Speci men Type: BLOOD SPECIMEN [facility] Address: [address] [place] [phone] Performed By: #### 2 532-0, 26512-6 #### [facility] CLIA [id number] [address] [place] [address]20 ALP [Catalytic activity/Vol] 86 U/L Normal 38-113 [facility] Comment on above: Order Comment: Speci men Type: BLOOD SPECIMEN Order[facility] Address: [address] [address] Performed By: #### 2 532-0, 15365-6 #### [facility] CLIA [id number] [address] [place] [address] 86852 ALT [Catalytic activity/Vol] 15 U/L Normal 10-54 [facility] Comment on above: Order Comment: Speci men Type: BLOOD SPECIMEN Order[facility] Address: [address] [place] [address] Performed By: #### 2 532-0, #### [facility] CLIA [id number] [address] [place] [address]6584 Anion gap [Moles/Vol] 8 mmol/L Low 9-18 [facility] Comment on above: Order Comment: Speci men Type: BLOOD SPECIMEN Order[facility] Address: [address] [place] [address] Performed By: #### 2 532-0, 44187-4 #### [facility] CLIA [id number] [address] [place] [address] 14443 AST [Catalytic activity/Vol] 16 U/L Normal 14-40 [facility] Comment on above: Order Comment: Speci men Type: BLOOD SPECIMEN Order[facility] Address: [address] [address] Performed By: #### 2 532-0, 77947-3 #### [facility] CLIA [id number] [address] [place] [address] Bilirubin [Mass/Vol] 0.5 mg/dL Normal 0.2-1.3 [facility] Comment on above: Order Comment: Speci men Type: BLOOD SPECIMEN Order[facility] Address: [address] [place] [address], [place] [address] Performed By: #### 2 532-0, #### [facility] CLIA [id number] [address] [place] [address] Calcium [Mass/Vol] 9.5 mg/dL Normal 8.5-10.2 [facility] Comment on above: Order Comment: Speci men Type: BLOOD SPECIMEN Order[facility] Address: [address] [address] Performed By: #### 2 532-0, #### [facility] CLIA [id number] [address] [place] [address]32 Chloride [Moles/Vol] 110 mmol/L High 97-105 [facility] Comment on above: Order Comment: Speci men Type: BLOOD SPECIMEN [facility] Address: [address] [address] Performed By: #### 2 532-0, #### [facility] CLIA [id number] [address] [place] [address]006 CO2 [Moles/Vol] 30 mmol/L Normal 22-30 [facility] Comment on above: Order Comment: Speci men Type: BLOOD SPECIMEN [facility] Address: [address] [address] Performed By: #### 2 532-0, #### [facility] CLIA [id number] [address] [place] [address]19 Creatinine [Mass/Vol] 0.93 mg/dL Normal 0.73-1.22 [facility] Comment on above: Order Comment: Speci men Type: BLOOD SPECIMEN [facility] Address: [address] [address] Performed By: #### 2 532-0, #### [facility] CLIA [id number] [address] [place] [address]004 ESTIMATED GLOMERULAR FILTRATION RATE 85 mL/min/1.73m??? Normal >=60 [facility] Comment on above: Order Comment: Helio helton Type: BLOOD SPECIMEN Ordering Facility: [facility] Address: [place] [address] Result Comment: Arelis mated Glomerular Filtration Rate [...] actual GFR. Performed By: #### 2 532-0, 06537-5 #### [facility] CLIA [id number] [address] [place] [address]05 Glucose [Mass/Vol] 86 mg/dL Normal 74-99 [facility] Comment on above: Order Comment: Helio helton Type: BLOOD SPECIMEN Ordering Facility: [facility] Address: [place] [address] Result Comment: The [place] Diabetes [employer] (ADA) provides guidance for cutoff [...] Standards of Medical Care in Diabetes 2016, [place] [employer]. Diabetes Care. 2016.39(Suppl 1). Performed By: #### 2 532-0, 05289-1 #### [facility] CLIA [id number] [address] [place] [address]4623 Potassium [Moles/Vol] 4.3 mmol/L Normal 3.7-5.1 [facility] Comment on above: Order Comment: Helio helton Type: BLOOD SPECIMEN Ordering Facility: [facility] Address: [address] [place] [address] Performed By: #### 2 532-0, 79506-3 #### [facility] CLIA [id number] [address] [place] [address]3081 Protein [Mass/Vol] 6.4 g/dL Normal 6.3-8.0 [facility] Comment on above: Order Comment: Speci men Type: BLOOD SPECIMEN Ordering Facility[facility] Address: [address] [place] [address] Performed By: #### 2 532-0, #### [facility] CLIA [id number] [address] [place] [address] Sodium [Moles/Vol] 148 mmol/L High 136-144 [facility] Comment on above: Order Comment: Speci men Type: BLOOD SPECIMEN [facility]ing [facility] Address: [address] [place] [address] Performed By: #### 2 532-0, #### [facility] CLIA [id number] [address] [place] [address] 89375 Urea nitrogen [Mass/Vol] 24 mg/dL Normal 9-24 [facility] Comment on above: Order Comment: Speci men Type: BLOOD SPECIMEN Ordering Facility[facility] Address: [address] [place] [address] Performed By: #### 2 532-0, #### [facility] CLIA [id number] [address] [place] [address] 30342 Albumin [Mass/Vol] 4.5 g/dL 3.9 - 4.9 g/dL [facility] ALP [Catalytic activity/Vol] 86 U/L 38 - 113 U/L [facility] ALT [Catalytic activity/Vol] 15 U/L 10 - 54 U/L [facility] Anion gap [Moles/Vol] 8 mmol/L Low 9 - 18 mmol/L [facility] AST [Catalytic activity/Vol] 16 U/L 14 - 40 U/L [facility] Bilirubin [Mass/Vol] 0.5 mg/dL 0.2 - 1 .3 mg/dL [facility] Calcium [Mass/Vol] 9.5 mg/dL 8.5 - 10. 2 mg/dL [facility] Chloride [Moles/Vol] 110 mmol/L High 97 - 10 5 mmol/L [facility] CO2 [Moles/Vol] 30 mmol/L 22 - 30 mmol/L [facility] Creatinine [Mass/Vol] 0.93 mg/dL 0.73 - 1.22 mg/dL [facility] Estimated Glomerular Filtration Rate 85 mL/min/1.73m >=60 mL/min/1.73m [facility] Glucose [Mass/Vol] 86 mg/dL 74 - 99 mg/dL [facility] Potassium [Moles/Vol] 4.3 mmol/L 3.7 - 5.1 mmol/L [facility] Protein [Mass/Vol] 6.4 g/dL 6.3 - 8.0 g/dL [facility] Sodium [Moles/Vol] 148 mmol/L High 136 - 144 mmol/L [facility] Urea nitrogen [Mass/Vol] 24 mg/dL 9 - 24 mg/d L [facility] Ferritin SerPl-mCncon 2021 Ferritin [Mass/Vol] 121.0 ng/mL Normal 30.3-565.7 [facility] Comment on above: Order Comment: Speci men Type: BLOOD SPECIMEN Ordering Facility[facility] Address: [address] [place] [address] Performed By: #### 5 0190-8, 2132-06, 2276-01 #### [facility] CLIA [id number] [address] [place] [address] STATES OF [facility] Iron and Iron binding capaci ty panelon 08-30-2022 Iron [Mass/Vol] 100 ug/dL Normal 41-186 [facility] Comment on above: Order Comment: Speci men Type: BLOOD SPECIMEN Ordering Facility: [facility] Address: [address] [place] [address] Performed By: #### 5 0190-8, 2132-06, 2276-01 #### [facility] CLIA [id number] [address] [place] [address] [place] Iron binding capacity [Mass/Vol] 287 ug/dL Normal 232-386 [facility] Comment on above: Order Comment: Speci men Type: BLOOD SPECIMEN Ordering Facility[facility] Address: [address] [place] [address] Performed By: #### 5 0190-8, 2132-06, 2276-01 #### [facility] CLIA [id number] [address] [place] [address] [place] Iron/TIBC [Molar ratio] 34.8 % Normal 15.0-57.0 [facility] Comment on above: Order Comment: Speci men Type: BLOOD SPECIMEN Ordering [facility] Address: [address] [place] [address] Performed By: #### 5 0190-8, 2132-06, 2276-01 #### [facility] CLIA [id number] [address] [place] [address] [place] LD LACTATE DEHYDROon 022 LDH [Catalytic activity/Vol] 180 U/L 135 - 225 U/L [facility] LDH SerPl-cCncon 08-30-2022 LDH [Catalytic activity/Vol] 180 U/L Normal 135-225 [facility] Comment on above: Order Comment: Speci men Type: BLOOD SPECIMEN Ordering [facility] Address: [address] [place], [place] [address] Performed By: #### 2 532-0, 47292-6 #### [facility] CLIA [id number] [address] [place] [address] Vit B12 SerPl-mCncon 022 Cobalamin (Vitamin B12) [Mass/Vol] 468 pg/mL Normal 232-1245 [facility] Comment on above: Order Comment: Speci men Type: BLOOD SPECIMEN Ordering [facility] Address: [address] [place], [place] [id number] Performed By: #### 5 0190-8, 2132-9, 2276-4 #### [facility] CLIA [id number] [address] [place] [address] [place] CULTURE BLOODon 05-08-2022 Microscopic [...] F Oxacillin <=0.25 S F Normal [facility] Comment on above: Performed By: #### P OCGLUC #### [facility] [address] [place] [address] Dr. Kelly Mukherjee BLOOD CULTURE ID PANELon A. baumannii Not detected Normal NOT DETECTED [facility] Comment on above: Performed By: #### B CID2 #### [facility] [address] [place] [address] Dr. Kelly Mukherjee Bacteriodes fragilis Not detected Normal NOT DETECTED [facility] Comment on above: Performed By: #### B CID2 #### [facility] [address] [place] [address] Dr. Kelly Mukherjee BCID CONTROLS PASSED Normal [facility] Comment on above: Performed By: #### B CID2 #### [facility] [address] [place] [address] Dr. Kelly Mukherjee BCIDBTHD BLOOD CULTURE BOTTLE INFORMATION Normal [facility] Comment on above: Performed By: #### B CID2 #### [facility] [address] [place] [address] Dr. Kelly Mukherjee BCIDHD1 ANTIMICROBIAL RESISTANCE GENES Normal [facility] Comment on above: Performed By: #### B CID2 #### [facility] [address] [place] [address] Dr. Kelly Mukherjee BCIDHD2 SEE BELOW Normal [facility] Comment on above: Result Comment: Note : Antimicrobial resitance can occur via multiple mechanisms. A Not Detected result for the [employer] antomicrobial resistance gene assays does not indicate antimicrobial susceptibility. Subculturing is required for species identification and susceptibility testing of isolates. Performed By: #### B CID2 #### [facility] [address] [place] [address] Dr. Kelly Mukherjee BCIDHD3 Positive [facility] Comment on above: Performed By: #### B CID2 #### [facility] [address] [place] [address] Dr. Kelly Mukherjee BCIDHD4 Negative Normal [facility] Comment on above: Performed By: #### B CID2 #### [facility] [address] [place] [address] Dr. Kelly Mukherjee BCIDHD5 YEAST Normal [facility] Comment on above: Performed By: #### B CID2 #### [facility] [address] [place] [address] Dr. Kelly Mukherjee Bottle Set: Set 2 [facility] Comment on above: Performed By: #### B CID2 #### [facility] [address] [place] [address] Dr. Kelly Mukherjee Bottle: Aerobic Normal [facility] Comment on above: Performed By: #### B CID2 #### [facility] [address] [place] [address] Dr. Kelly Mukherjee C. neoformans/gattii Not detected Normal NOT DETECTED [facility] Comment on above: Performed By: #### B CID2 #### [facility] [address] [place] [address] Dr. Kelly Mukherjee Morenita albicans Not detected Normal NOT DETECTED [facility] Comment on above: Performed By: #### B CID2 #### [facility] [address] [address] [address] Kelly Mukherjee Morenita auris Not detected Normal NOT DETECTED [facility] Comment on above: Performed By: #### B CID2 #### [facility] [address] [address] [address] Kelly Mukherjee Morenita glabrata Not detected Normal NOT DETECTED [facility] Comment on above: Performed By: #### B CID2 #### [facility] [address] [place] [address] Dr. Kelly Mukherjee Morenita Krusei Not detected Normal NOT DETECTED [facility] Comment on above: Performed By: #### B CID2 #### [facility] [address] [place] [address] Dr. Kelly Mukherjee [place] Parapsilosis Not detected Normal NOT DETECTED [facility] Comment on above: Performed By: #### B CID2 #### [facility] [address] [place] [address] Dr. Kelly Mukherjee Morenita Tropicalis Not detected Normal NOT DETECTED [facility] Comment on above: Performed By: #### B CID2 #### [facility] [address] [place] [address] Dr. Kelly Mukherjee CTX-M Resistant Gene Not Applicable Normal NOT DETECTE D [facility] Comment on above: Performed By: #### B CID2 #### [facility] [address] [place] [address] Dr. Kelly Mukherjee E. Cloacae complex Not detected Normal NOT DETECTED [facility] Comment on above: Performed By: #### B CID2 #### [facility] [address] [place] [address] Dr. Kelly Mukherjee E. faecalis Not detected Normal NOT DETECTED [facility] Comment on above: Performed By: #### B CID2 #### [facility] [address] [place] [address] Dr. Kelly Mukherjee E. faecium Not detected Normal NOT DETECTED [facility] Comment on above: Performed By: #### B CID2 #### [facility] [address] [place] [address] Dr. Kelly Mukherjee Enterobacteriaceae Not detected Normal NOT DETECTED [facility] Comment on above: Performed By: #### B CID2 #### [facility] [address] [place] [address] Dr. Kelly Mukherjee Escherichia coli Not detected Normal NOT DETECTED [facility] Comment on above: Performed By: #### B CID2 #### [facility] [address] [place] [address] Dr. Kelly Mukherjee H. influenzae Not detected Normal NOT DETECTED [facility] Comment on above: Performed By: #### B CID2 #### [facility] [address] [place] [address] Dr. Kelly Muhkerjee IMP Resistant Gene Not Applicable Normal NOT DETECTED [facility] Comment on above: Performed By: #### B CID2 #### [facility] [address] [place] [address] Dr. Kelly Mukherjee K. oxytoca Not detected Normal NOT DETECTED [facility] Comment on above: Performed By: #### B CID2 #### [facility] [address] [place] [address] Dr. Kelly Mukherjee K. pneumoniae Not detected Normal NOT DETECTED [facility] Comment on above: Performed By: #### B CID2 #### [facility] [address] [place] [address] Dr. Kelly Mukherjee Klebsiella aerogenes Not detected Normal NOT DETECTED [facility] Comment on above: Performed By: #### B CID2 #### [facility] [address] [place] [address] Dr. Kelly Mukherjee KPC Resistant Gene Not Applicable Normal NOT DETECTED [facility] Comment on above: Performed By: #### B CID2 #### [facility] [address] [place] [address] Dr. Kelly Mukherjee List. monocytogenes Not detected Normal NOT DETECTED [facility] Comment on above: Performed By: #### B CID2 #### [facility] [address] [place] [address] Dr. Kelly Mukherjee Mcr-1 Resistant Gene Not Applicable Normal NOT DETECTE D [facility] Comment on above: Performed By: #### B CID2 #### [facility] [address] [place] [address] Dr. Kelly Mukherjee mecA/C Not Applicable Normal NOT DETECTED [facility] Comment on above: Performed By: #### B CID2 #### [facility] [address] [place] [address] Dr. Kelly Mukherjee mecA/C MREJ Not Applicable Normal NOT DETECTED [facility] Comment on above: Performed By: #### B CID2 #### [facility] [address] [place] [address] Dr. Kelly Mukherjee N. meningitidis Not detected Normal NOT DETECTED [facility] Comment on above: Performed By: #### B CID2 #### [facility] [address] [place] [address] Dr. Kelly Mukherjee NDM Resistant Gene Not Applicable Normal NOT DETECTED [facility] Comment on above: Performed By: #### B CID2 #### [facility] [address] [place] [address] Dr. Kelly Mukherjee Oxa-48-like Not Applicable Normal NOT DETECTED [facility] Comment on above: Performed By: #### B CID2 #### [facility] [address] [place] [address] Dr. Kelly Mukherjee Proteus Not detected Normal NOT DETECTED [facility] Comment on above: Performed By: #### B CID2 #### [facility] [address] [place] [address] Dr. Kelly Mukherjee Pseud. aeruginosa Not detected Normal NOT DETECTED [facility] Comment on above: Performed By: #### B CID2 #### [facility] [address] [place] [address] Dr. Kelly Mukherjee S. maltophilia Not detected Normal NOT DETECTED [facility] Comment on above: Performed By: #### B CID2 #### [facility] [address] [place] [address] Dr. Kelly Mukherjee Salmonella Not detected Normal NOT DETECTED [facility] Comment on above: Performed By: #### B CID2 #### [facility] [address] [place] [address] Dr. Kelly Mukherjee Seratia marcescens Not detected Normal NOT DETECTED [facility] Comment on above: Performed By: #### B CID2 #### [facility] [address] [place] [address] Dr. Kelly Mukherjee Site: Lt Hand Normal [facility] Comment on above: Performed By: #### B CID2 #### [facility] [address] [address] [address] Kelly Mukherjee Staph. aureus Not detected Normal NOT DETECTED [facility] Comment on above: Performed By: #### B CID2 #### [facility] [address] [place] [address] Dr. Kelly Mukherjee Staph. epidermidis Not detected Normal NOT DETECTED [facility] Comment on above: Performed By: #### B CID2 #### [facility] [address] [place] [address] Dr. Kelly Mukherjee Staph. lugdunensis Not detected Normal NOT DETECTED [facility] Comment on above: Performed By: #### B CID2 #### [facility] [address] [place] [address] Dr. Kelly Mukherjee Staphylococcus Detected Abnormal NOT DETECTED [facility] Comment on above: Performed By: #### B CID2 #### [facility] [address] [place] [address] Dr. Kelly Mukherjee Strep. agalactiae Not detected Normal NOT DETECTED [facility] Comment on above: Performed By: #### B CID2 #### [facility] [address] [place] [address] Dr. Kelly Mukherjee Strep. pneumoniae Not detected Normal NOT DETECTED [facility] Comment on above: Performed By: #### B CID2 #### [facility] [address] [place] [address] Dr. Kelly Mukherjee Strep. pyogenes Not detected Normal NOT DETECTED [facility] Comment on above: Performed By: #### B CID2 #### [facility] [address] [place] [address] Dr. Kelly Mukherjee Streptococcus Not detected Normal NOT DETECTED [facility] Comment on above: Performed By: #### B CID2 #### [facility] [address] [place] [address] Dr. Kelly Schneider/Suraj Resist. Gene Not Applicable Normal NOT DETECTED [facility] Comment on above: Performed By: #### B CID2 #### [facility] [address] [place] [address] Dr. Kelly Mukherjee VIM Resistant Gene Not Applicable Normal NOT DETECTED [facility] Comment on above: Performed By: #### B CID2 #### [facility] [address] [place] [address] Dr. Kelly Mukherjee CBC AUTO DIFFon 05-03-2022 BASO # 0.0 103/ul Normal 0.0-0.1 [facility] Comment on above: Performed By: #### C BC #### [facility] [address] [place] [address] Dr. Kelly Mukherjee Basophils/100 WBC (Bld) 0.0 % Critically low 0.2-2.0 [facility] Comment on above: Performed By: #### C BC #### [facility] [address] [place] [address] Dr. Kelly Mukherjee EO # 0.0 103/ul Normal 0.0-0.7 [facility] Comment on above: Performed By: #### C BC #### [facility] [address] [place] [address] Dr. Kelly Mukherjee Eosinophils/100 WBC (Bld) 0.0 % Critically low 0.9-7. 0 [facility] Comment on above: Performed By: #### C BC #### [facility] [address] [place] [address] Dr. Kelly Mukherjee Erythrocyte distribution width (RBC) [Ratio] 15.5 % Critically high 11.0-15.0 [facility] Comment on above: Performed By: #### C BC #### [facility] [address] [place] [address] Dr. Kelly Mukherjee Hematocrit (Bld) [Volume fraction] 25.3 % Critically low 42.0-54.0 [facility] Comment on above: Performed By: #### C BC #### [facility] [address] [address] [address] Kelly Mukherjee Hemoglobin (Bld) [Mass/Vol] 8.8 g/dL Critically low 14.0-18.0 [facility] Comment on above: Performed By: #### C BC #### [facility] [address] [address] [address] Kelly Mukherjee IG # 0.00 10e3/ul Normal 0.00-0.03 [facility] Comment on above: Performed By: #### C BC #### [facility] [address] [place] [address] Dr. Kelly Mukherjee IG % 0.0 % Normal 0.0-0.5 [facility] Comment on above: Performed By: #### C BC #### [facility] [address] [place] [address] Dr. Kelly Mukherjee LYMPH # 0.2 103/ul Critically low 1.2-3.8 [facility] Comment on above: Performed By: #### C BC #### [facility] [address] [place] [address] Dr. Kelly Mukherjee Lymphocytes/100 WBC (Bld) 11.5 % Critically low 20.5-6 0.0 [facility] Comment on above: Performed By: #### C BC #### [facility] [address] [place] [address] Dr. Kelly Mukherjee MANUAL DIFF REQ NO Normal [facility] Comment on above: Performed By: #### C BC #### [facility] [address] [place] [address] Dr. Kelly Mukherjee MCH (RBC) [Entitic mass] 34.1 pg Critically high 25.9-3 4.0 [facility] Comment on above: Performed By: #### C BC #### [facility] [address] [place] [address] Dr. Kelly Mukherjee MCHC (RBC) [Mass/Vol] 34.8 g/dL Normal 29.9-35.2 [facility] Comment on above: Performed By: #### C BC #### [facility] [address] [address] [address] Kelly Mukherjee MCV (RBC) [Entitic vol] 98.1 fL Critically high 80.0-94 .0 [facility] Comment on above: Performed By: #### C BC #### [facility] [address] [address] [address] Kelly Mukherjee MONO # 0.2 103/ul Critically low 0.3-0.8 [facility] Comment on above: Performed By: #### C BC #### [facility] [address] [address] [address] Kelly Mukherjee Monocytes/100 WBC (Bld) 14.5 % Critically high 1.7-12. 0 [facility] Comment on above: Performed By: #### C BC #### [facility] [address] [address] [address] Kelly Mukherjee NEUT # 1.2 103/ul Critically low 1.4-6.5 [facility] Comment on above: Performed By: #### C BC #### [facility] [address] [address] [address] Kelly Mukherjee Neutrophils/100 WBC (Bld) 74.0 % Normal 43.0-75.0 [facility] Comment on above: Performed By: #### C BC #### [facility] [address] [address] [address] Kelly Mukherjee Platelet mean volume (Bld) [Entitic vol] 10.3 fL Normal 9.5-13.5 [facility] Comment on above: Performed By: #### C BC #### [facility] [address] [address] [address] Kelly Mukherjee PLT 59 103/ul Critically low 150-450 [facility] Comment on above: Performed By: #### C BC #### [facility] [address] [address] [address] Kelly Mukherjee RBC 2.58 106/ul Critically low 4.70-6.10 [facility] Comment on above: Performed By: #### C BC #### [facility] [address] [place] [address] Dr. Kelly Mukherjee WBC 1.7 103/ul Critically low 4.0-11.0 [facility] Comment on above: Performed By: #### C BC #### [facility] [address] [place] [address] Dr. Kelly Mukherjee CBC W MANUAL DIFFon 05-03-20 22 ATYPICAL LYMPH # Normal [facility] Comment on above: Performed By: #### C VDTBH #### [facility] [address] [place] [address] Dr. Kelly Mukherjee ATYPICAL LYMPH % Normal [facility] Comment on above: Performed By: #### C VDTBH #### [facility] [address] [place] [address] Dr. Kelly Mukherjee BAND # 0.0 103/ul Normal 0.0-0.3 [facility] Comment on above: Performed By: #### C VDTBH #### [facility] [address] [place] [address] Dr. Kelly Mukherjee BAND % 1 % Normal 0-5 [facility] Comment on above: Performed By: #### C VDTBH #### [facility] [address] [place] [address] Dr. Kelly Mukherjee BASOM # 0.00 103/ul Normal 0.00-0.10 [facility] Comment on above: Performed By: #### C VDTBH #### [facility] [address] [place] [address] Dr. Kelly Mukherjee BASOM % 0.0 % Critically low 0.2-2.0 [facility] Comment on above: Performed By: #### C VDTBH #### [facility] [address] [place] [address] Dr. Kelly Mukherjee BLAST # Normal [facility] Comment on above: Performed By: #### C VDTBH #### [facility] [address] [place] [address] Dr. Kelly Mukherjee BLAST % Normal [facility] Comment on above: Performed By: #### C VDTBH #### [facility] [address] [address] [address] Kelly Mukherjee CORRECTED WBC Normal 4.0-11.0 [facility] Comment on above: Performed By: #### C VDTBH #### [facility] [address] [address] [address] Kelly Mukherjee EOS # 0.00 103/ul Normal 0.00-0.70 [facility] Comment on above: Performed By: #### C VDTBH #### [facility] [address] [address] [address] Kelly Mukherjee EOS% 0.0 % Critically low 0.9-7.0 [facility] Comment on above: Performed By: #### C VDTBH #### [facility] [address] [place] [address] Dr. Kelly Mukherjee HCT 26.7 % Critically low 42.0-54.0 [facility] Comment on above: Performed By: #### C VDTBH #### [facility] [address] [address] [address] Kelly Mukherjee HGB 9.3 g/dl Critically low 14.0-18.0 [facility] Comment on above: Performed By: #### C VDTBH #### [facility] [address] [address] [address] Kelly Mukherjee LYMPHM # 0.21 103/ul Critically low 1.20-3.80 [facility] Comment on above: Performed By: #### C VDTBH #### [facility] [address] [address] [address] Kelly Mukherjee LYMPHM% 13.0 % Critically low 20.5-60.0 [facility] Comment on above: Performed By: #### C VDTBH #### [facility] [address] [address] [address] Kelly Mukherjee MCH 33.9 pg Normal 25.9-34.0 [facility] Comment on above: Performed By: #### C VDTBH #### [facility] [address] [place] [address] Dr. Kelly Mukherjee MCHC 34.8 g/dl Normal 29.9-35.2 [facility] Comment on above: Performed By: #### C VDTBH #### [facility] [address] [place] [address] Dr. Kelly Mukherjee MCV 97.4 fL Critically high 80.0-94.0 [facility] Comment on above: Performed By: #### C VDTBH #### [facility] [address] [place] [address] Dr. Kelly Mukherjee METAMYELOCYTE # Normal [facility] Comment on above: Performed By: #### C VDTBH #### [facility] [address] [place] [address] Dr. Kelly Mukherjee METAMYELOCYTE % Normal [facility] Comment on above: Performed By: #### C VDTBH #### [facility] [address] [place] [address] Dr. Kelly Mukherjee MONOM# 0.16 103/ul Critically low 0.30-0.80 [facility] Comment on above: Performed By: #### C VDTBH #### [facility] [address] [place] [address] Dr. Kelly Mukherjee MONOM% 10.0 % Normal 1.7-12.0 [facility] Comment on above: Performed By: #### C VDTBH #### [facility] [address] [place] [address] Dr. Kelly Mukherjee MPV 9.9 fL Normal 9.5-13.5 [facility] Comment on above: Performed By: #### C VDTBH #### [facility] [address] [place] [address] Dr. Kelly Mukherjee MYELOCYTE # Normal [facility] Comment on above: Performed By: #### C VDTBH #### [facility] [address] [place] [address] Dr. Kelly Mukherjee MYELOCYTE % Normal [facility] Comment on above: Performed By: #### C VDTBH #### [facility] [address] [address] [address] Kelly Mukherjee NRBC Normal [facility] Comment on above: Performed By: #### C VDTBH #### [facility] [address] [place] [address] Dr. Kelly Mukherjee PLT 61 103/ul Critically low 150-450 [facility] Comment on above: Performed By: #### C VDTBH #### [facility] [address] [address] [address] Kelly Mukherjee RBC 2.74 106/ul Critically low 4.70-6.10 [facility] Comment on above: Performed By: #### C VDTBH #### [facility] [address] [place] [address] Dr. Kelly Mukherjee RDW 15.6 % Critically high 11.0-15.0 [facility] Comment on above: Performed By: #### C VDTBH #### [facility] [address] [place] [address] Dr. Kelly Mukherjee SEG # 1.22 103/ul Critically low 1.40-6.50 [facility] Comment on above: Performed By: #### C VDTBH #### [facility] [address] [place] [address] Dr. Kelly Mukherjee SEG % 76.0 % Critically high 43.0-75.0 [facility] Comment on above: Performed By: #### C VDTBH #### [facility] [address] [place] [address] Dr. Kelly Mukherjee WBC 1.6 103/ul Critically low 4.0-11.0 [facility] Comment on above: Performed By: #### C VDTBH #### [facility] [address] [place] [address] HEAD WO CONon [...] by: KIA JENNINGS Date: 2022-05-03 00:00 Normal [facility] CULTURE BLOODon 05-03-2022 Microscopic examination of blood, culture Culture Observations: NO GROWTH AT 5 DAYS. Normal [facility] Comment on above: Performed By: #### P OCGLUC #### [facility] [address] [place] [address] Dr. Kelly Mukherjee CULTURE URINEon 05-03-2022 CULTURE URINE Culture Observations: HEAVY GROWTH OF MIXED SKIN TERE. NO POTENTIAL PATHOGENS SEEN. Normal [facility] Comment on above: Performed By: #### P OCGLUC #### [facility] [address] [address] [address] Kelly Mukherjee Covid-19 PCR (CVDTB)on 04-08 SARS-CoV-2 (COVID-19) RNA ABIMBOLA+probe Ql (Unsp spec) Detected Critically abnormal NOT DETECTED [facility] Comment on above: Result Comment: This test is not yet approved or cleared by the [place] FDA. When there are no FDA-approved or cleared tests available, and other criteria are met, FDA can make tests available under an emergency access mechanism called an Emergency Use Authorization (EUA). The EUA for this test is supported by the [place] of Health and Human Service's declaration that [...] used). Performed By: #### C VDTBH #### [facility] [address] [place] [address] Dr. Kelly ALLEN URINE PROFILEon 2 Bilirubin Ql (U) Negative Normal NEGATIVE [facility] Comment on above: Performed By: #### CAITY CABRALRO #### [facility] [address] [place] [address] Dr. Kelly Mukherjee Clarity (U) CLEAR Normal CLEAR [facility] Comment on above: Performed By: #### RACHELL CABRALICRO #### [facility] [address] [place] [address] Dr. Kelly Mukherjee Color (U) YELLOW Normal YELLOW [facility] Comment on above: Performed By: #### CAITY CABRALRO #### [facility] [address] [place] [address] Dr. Kelly CARTER A micrscopic examination will be performed if indicated. Normal [facility] Comment on above: Performed By: #### RACHELL CABRALICRO #### [facility] [address] [place] [address] Dr. Kelly Mukherjee Glucose Ql (U) 100 mg/dl Abnormal NEGATIVE [facility] Comment on above: Performed By: #### CAITY CABRALRO #### [facility] [address] [place] [address] Dr. Kelly Mukherjee Hemoglobin Ql (U) TRACE-INTACT Abnormal NEGATIVE [facility] Comment on above: Performed By: #### RACHELL CABRALICRO #### [facility] [address] [place] [address] Dr. Kelly Mukherjee Ketones Ql (U) Negative Normal NEGATIVE [facility] Comment on above: Performed By: #### RACHELL CABRALICRO #### [facility] [address] [place] [address] Dr. Kelly Mukherjee LEUKOCYTES Negative Normal NEGATIVE [facility] Comment on above: Performed By: #### Javy VAZQUEZ UMICRO #### [facility] [address] [place] [address] Dr. Kelly Mukherjee Nitrite Ql (U) Positive Abnormal NEGATIVE [facility] Comment on above: Performed By: #### RACHELL CABRALICRO #### [facility] [address] [place] [address] Dr. Kelly Mukherjee pH (U) 5.5 [pH] Normal 5-9 [facility] Comment on above: Performed By: #### Javy VAZQUEZ UMICRO #### [facility] [address] [place] [address] Dr. Kelly Mukherjee Protein (U) [Mass/Vol] 100 mg/dL Abnormal NEGAT NADER/ TRACE [facility] Comment on above: Performed By: #### Javy VAZQUEZ UMICRO #### [facility] [address] [place] [address] Dr. Kelly Mukherjee SPEC GRAVITY 1.025 Normal 1.005-<=1.[address] [place] [address] Comment on above: Performed By: #### Javy VAZQUEZ UMICRO #### [facility] [address] [place] [address] Dr. Kelly Mukherjee UR MICRO IND INDICATED Normal [facility] Comment on above: Performed By: #### Javy VAZQUEZ UMICRO #### [facility] [address] [place] [address] Dr. Kelly Mukherjee Urobilinogen Qn (U) 0.2 {Jun'U}/dL Normal 0.2 - 1. 0 [facility] Comment on above: Performed By: #### Javy VAZQUEZ UMICRO #### [facility] [address] [place] [address] Dr. Kelly Mukherjee LACTATE/LACTIC ACIDon 2021 Lactate [Moles/Vol] 1.0 mmol/L Normal 0.4-1.9 [facility] Comment on above: Performed By: #### B MP #### [facility] [address] [place] [address] Dr. Kelly Mukherjee PROF 14(COMP METB)on 022 Albumin [Mass/Vol] 3.6 g/dL Normal 3.4-5.0 [facility] Comment on above: Performed By: #### B MP #### [facility] [address] [place] [address] Dr. Kelly Mukherjee Albumin/Globulin [Mass ratio] 1.3 {ratio} Normal [facility] Comment on above: Performed By: #### B MP #### [facility] [address] [place] [address] Dr. Kelly Mukherjee ALP [Catalytic activity/Vol] 95 U/L Normal 46-116 [facility] Comment on above: Performed By: #### B MP #### [facility] [address] [place] [address] Dr. Kelly Mukherjee ALT [Catalytic activity/Vol] 53 U/L Normal 16-63 [facility] Comment on above: Performed By: #### B MP #### [facility] [address] [place] [address] Dr. Kelly Mukherjee Anion gap [Moles/Vol] 8.7 mmol/L Normal [facility] Comment on above: Performed By: #### B MP #### [facility] [address] [place] [address] Dr. Kelly Mukherjee AST [Catalytic activity/Vol] 31 U/L Normal 15-37 [facility] Comment on above: Performed By: #### B MP #### [facility] [address] [place] [address] Dr. Kelly Mukherjee Bilirubin [Mass/Vol] 0.4 mg/dL Normal 0.2-1.0 [facility] Comment on above: Performed By: #### B MP #### [facility] [address] [place] [address] Dr. Kelly Mukherjee Calcium [Mass/Vol] 8.5 mg/dL Normal 8.5-10.1 [facility] Comment on above: Performed By: #### B MP #### [facility] [address] [place] [address] Dr. Kelly Mukherjee Chloride [Moles/Vol] 106 mmol/L Normal 98-107 [facility] Comment on above: Performed By: #### B MP #### [facility] [address] [place] [address] Dr. Kelly Mukherjee CO2 [Moles/Vol] 29.1 mmol/L Normal 21.0-32.0 [facility] Comment on above: Performed By: #### B MP #### [facility] [address] [address] [address] Kelly Mukherjee Creatinine [Mass/Vol] 1.07 mg/dL Normal 0.70-1.30 [facility] Comment on above: Performed By: #### B MP #### [facility] [address] [address] [address] Kelly Mukherjee EGFR-AF SAMOAN >60 Normal >=60 [facility] Comment on above: Performed By: #### B MP #### [facility] [address] [address] [address] Kelly Mukherjee EGFR-NON AF SAMOAN >60 Normal >=60 [facility] Comment on above: Performed By: #### B MP #### [facility] [address] [place] [address] Dr. Kelly Mukherjee Globulin (S) [Mass/Vol] 2.8 g/dL Normal [facility] Comment on above: Performed By: #### B MP #### [facility] [address] [address] [address] Kelly Mukherjee Glucose [Mass/Vol] 208 mg/dL Critically high 74-106 [facility] Comment on above: Performed By: #### B MP #### [facility] [address] [place] [address] Dr. Kelly Mukherjee Potassium [Moles/Vol] 3.8 mmol/L Normal 3.5-5.1 [facility] Comment on above: Performed By: #### B MP #### [facility] [address] [place] [address] Dr. Kelly Mukherjee Protein [Mass/Vol] 6.4 g/dL Normal 6.4-8.2 [facility] Comment on above: Performed By: #### B MP #### [facility] [address] [address] [address] Kelly Mukherjee Sodium [Moles/Vol] 140 mmol/L Normal 136-145 [facility] Comment on above: Performed By: #### B MP #### [facility] [address] [address] [address] Kelly Mukherjee Urea nitrogen [Mass/Vol] 23.0 mg/dL Critically high 7.0-18 .0 [facility] Comment on above: Performed By: #### B MP #### [facility] [address] [address] [address] Kelly Mukherjee Urea nitrogen/Creatinine [Mass ratio] 21.5 mg/mg Normal [facility] Comment on above: Performed By: #### B MP #### [facility] [address] [address] [address] Kelly Mukherjee PROF CHEM 8 (BAS METB)on Anion gap [Moles/Vol] 10.1 mmol/L Normal [facility] Comment on above: Performed By: #### B MP #### [facility] [address] [place] [address] Dr. Kelly Mukherjee Calcium [Mass/Vol] 8.2 mg/dL Critically low 8.5-10.1 [facility] Comment on above: Performed By: #### B MP #### [facility] [address] [place] [address] Dr. Kelly Mukherjee Chloride [Moles/Vol] 107 mmol/L Normal 98-107 [facility] Comment on above: Performed By: #### B MP #### [facility] [address] [place] [address] Dr. Kelly Mukherjee CO2 [Moles/Vol] 27.6 mmol/L Normal 21.0-32.0 [facility] Comment on above: Performed By: #### B MP #### [facility] [address] [address] [address] Kelly Mukherjee Creatinine [Mass/Vol] 0.93 mg/dL Normal 0.70-1.30 [facility] Comment on above: Performed By: #### B MP #### [facility] [address] [place] [address] Dr. Kelly Mukherjee EGFR-AF SAMOAN >60 Normal >=60 [facility] Comment on above: Performed By: #### B MP #### [facility] [address] [place] [address] Dr. Kelly Mukherjee EGFR-NON AF SAMOAN >60 Normal >=60 [facility] Comment on above: Performed By: #### B MP #### [facility] [address] [address] [address] Kelly Mukherjee Glucose [Mass/Vol] 153 mg/dL Critically high 74-106 [facility] Comment on above: Performed By: #### B MP #### [facility] [address] [place] [address] Dr. Kelly Mukherjee Potassium [Moles/Vol] 3.7 mmol/L Normal 3.5-5.1 [facility] Comment on above: Performed By: #### B MP #### [facility] [address] [place] [address] Dr. Kelly Mukherjee Sodium [Moles/Vol] 141 mmol/L Normal 136-145 [facility] Comment on above: Performed By: #### B MP #### [facility] [address] [place] [address] Dr. Kelly Mukherjee Urea nitrogen [Mass/Vol] 17.0 mg/dL Normal 7.0-18.0 [facility] Comment on above: Performed By: #### B MP #### [facility] [address] [place] [address] Dr. Kelly Mukherjee Urea nitrogen/Creatinine [Mass ratio] 18.3 mg/mg Normal [facility] Comment on above: Performed By: #### B MP #### [facility] [address] [place] [address] Dr. Kelly Mukherjee URINE MICROSCOPIC ONLYon BACTERIA MODERATE Abnormal NONE SEEN [facility] Comment on above: Performed By: #### MARIKA CABRAL #### [facility] [address] [place] [address] Dr. Kelly Mukherjee Bacteria identified Cx Nom (U) INDICATED Normal [facility] Comment on above: Performed By: #### MARIKA CABRAL #### [facility] [address] [place] [address] Dr. Kelly Mukherjee CAST NONE SEEN Normal NONE SEEN [facility] Comment on above: Performed By: #### E RUR, UMICRO #### [facility] [address] [place] [address] Dr. Kelly Mukherjee Crystals LM Nom (Urine sed) NONE SEEN Normal NONE SEEN [facility] Comment on above: Performed By: #### E RUR, UMICRO #### [facility] [address] [place] [address] Dr. Kelly Mukherjee Epithelial cells LM Ql (Urine sed) NONE SEEN Normal NONE SEEN /RARE [facility] Comment on above: Performed By: #### E RUR, UMICRO #### [facility] [address] [place] [address] Dr. Kelly Mukherjee MUCOUS NONE SEEN Normal NONE SEEN [facility] Comment on above: Performed By: #### E RUR, UMICRO #### [facility] [address] [place] [address] Dr. Kelly Mukherjee RBC NONE SEEN Abnormal 0-2 [facility] Comment on above: Performed By: #### E RUR, UMICRO #### [facility] [address] [place] [address] Dr. Kelly Mukherjee WBC 2-5 Abnormal NONE SEEN [facility] Comment on above: Performed By: #### E RUR, UMICRO #### [facility] [address] [place] [address] Dr. Kelly Mukherjee XR CHEST 1 Von [...] KIA JENNINGS Date: 2022-05-03 00:05 Normal [facility] MRI BRAIN WO CONon 2 MRI [...] by: SHAKA BLANCO Date: 2022-04-19 20:11 Normal [facility] ECHOCARDIO M/2D COMPLETEon 0 03-27-2022 ECHOCARDIO M/2D COMPLETE Patient: BRIAN GOULD Exam Date: 03/27/2022 : 1945 Gender:M Ordering : DR JUAN A COX D.O. Admission #: [id number] Family : Order #: [id number] CLICK HERE TO VIEW EXAM ECHOCARDIOGRAM REPORT [...] Area(A4C): 20.80 cm2 Left Atrium Systolic Volume(A2C): 18760 mm3 Left Atrium Systolic Volume(A4C): 69313 mm3 Mitral Valve MV E to A Ratio: 1.30 Deceleration [place]: 3680 mm/s2 Mitral Valve A-Wave Peak Velocity: 65.60 cm/s Mitral Valve E-Wave Peak Velocity: 84.40 cm/s Right Ventricle RV Internal Diastolic Dimension: 3.10 cm Aorta AO Root Diam: 3.30 cm Aortic Valve AoV Area (Peak Alban): 2.40 cm2 Deceleration [place]: 541 mm/s2 Pressure Half-Time: 1.59 s Peak [...] Walden M.D. on 03/29/2022 at 19:07 Normal [facility] NM STRESS/REST MULTIon 03-09 NM STRESS/REST MULTI Patient: BRIAN GOULD Exam Date: 03/09/2022 : 1945 Gender:M Ordering : DR JUAN A COX D.O. Admission #: [id number] Family : Order #: [id number] CLICK HERE TO VIEW EXAM RADIOLOGY REPORT [...] Olson M.D. on 03/10/2022 at 09:38 Normal [facility] BNPon 02-15-2022 Natriuretic peptide B (Bld) [Mass/Vol] 400.0 pg/mL Normal <=1,800.0 [facility] Comment on above: Performed By: #### B MP #### [facility] [address] [place] [address] Dr. Kelly Mukherjee CARDIAC BARRON ADMITon 022 CK [Catalytic activity/Vol] 22 U/L Critically low 39-308 [facility] Comment on above: Performed By: #### B MP #### [facility] [address] [place] [address] Dr. Kelly Mukherjee CK.MB [Mass/Vol] ng/mL Normal <=3.60 [facility] Comment on above: Performed By: #### B MP #### [facility] [address] [place] [address] Dr. Kelly Mukherjee HSTROP 6.8 pg/mL Normal 4.0-76.1 [facility] Comment on above: Result Comment: CUT- OFF POINTS HAVE BEEN ESTABLISHED BASED ON THE FOURTH UNIVERSAL DEFINITIONS OF MYOCARDIAL INFARCTION. THE UPPER REFERENCE LIMIT (URL) OF TROPONIN, DEFINED THE 99TH PERCENTILE OF cTnI DISTRIBUTION IN A REFERENCE POPULATION, HAS BEEN CONFIRMED THE DECISION THRESHOLD FOR ME DIAGNOSIS. Performed By: #### B MP #### [facility] [address] [place] [address] Dr. Kelly Mukherjee DEBBIE 39 ng/mL Normal 16-96 [facility] Comment on above: Performed By: #### B MP #### [facility] [address] [place] [address] Dr. Kelly Mukherjee CBC AUTO DIFFon 02-15-2022 BASO # 0.0 103/ul Normal 0.0-0.1 [facility] Comment on above: Performed By: #### B MP #### [facility] [address] [place] [address] Dr. Kelly Mukherjee Basophils/100 WBC (Bld) 0.3 % Normal 0.2-2.0 [facility] Comment on above: Performed By: #### B MP #### [facility] [address] [place] [address] Dr. Kelly Mukherjee EO # 0.1 103/ul Normal 0.0-0.7 [facility] Comment on above: Performed By: #### B MP #### [facility] [address] [place] [address] Dr. Kelly Mukherjee Eosinophils/100 WBC (Bld) 2.0 % Normal 0.9-7.0 [facility] Comment on above: Performed By: #### B MP #### [facility] [address] [place] [address] Dr. Kelly Mukherjee Erythrocyte distribution width (RBC) [Ratio] 15.4 % Critically high 11.0-15.0 [facility] Comment on above: Performed By: #### B MP #### [facility] [address] [place] [address] Dr. Kelly Mukherjee Hematocrit (Bld) [Volume fraction] 31.9 % Critically low 42.0-54.0 [facility] Comment on above: Performed By: #### B MP #### [facility] [address] [place] [address] Dr. Kelly Mukherjee Hemoglobin (Bld) [Mass/Vol] 10.7 g/dL Critically low 14.0-18.0 [facility] Comment on above: Performed By: #### B MP #### [facility] [address] [place] [address] Dr. Kelly Mukherjee IG # 0.01 10e3/ul Normal 0.00-0.03 [facility] Comment on above: Performed By: #### B MP #### [facility] [address] [place] [address] Dr. Kelly Mukherjee IG % 0.3 % Normal 0.0-0.5 [facility] Comment on above: Performed By: #### B MP #### [facility] [address] [place] [address] Dr. Kelly Mukherjee LYMPH # 0.6 103/ul Critically low 1.2-3.8 [facility] Comment on above: Performed By: #### B MP #### [facility] [address] [place] [address] Dr. Kelly Mukherjee Lymphocytes/100 WBC (Bld) 15.9 % Critically low 20.5-6 0.0 [facility] Comment on above: Performed By: #### B MP #### [facility] [address] [address] [address] Kelly Mukherjee MANUAL DIFF REQ NO Normal [facility] Comment on above: Performed By: #### B MP #### [facility] [address] [address] [address] Kelly Mukherjee MCH (RBC) [Entitic mass] 33.8 pg Normal 25.9-34.0 [facility] Comment on above: Performed By: #### B MP #### [facility] [address] [place] [address] Dr. Kelly Mukherjee MCHC (RBC) [Mass/Vol] 33.5 g/dL Normal 29.9-35.2 [facility] Comment on above: Performed By: #### B MP #### [facility] [address] [place] [address] Dr. Kelly Mukherjee MCV (RBC) [Entitic vol] 100.6 fL Critically high 80.0-94 .0 [facility] Comment on above: Performed By: #### B MP #### [facility] [address] [place] [address] Dr. Kelly Mukherjee MONO # 0.2 103/ul Critically low 0.3-0.8 [facility] Comment on above: Performed By: #### B MP #### [facility] [address] [place] [address] Dr. Kelly Mukherjee Monocytes/100 WBC (Bld) 4.9 % Normal 1.7-12.0 [facility] Comment on above: Performed By: #### B MP #### [facility] [address] [place] [address] Dr. Kelly Mukherjee NEUT # 2.7 103/ul Normal 1.4-6.5 [facility] Comment on above: Performed By: #### B MP #### [facility] [address] [place] [address] Dr. Kelly Mukherjee Neutrophils/100 WBC (Bld) 76.6 % Critically high 43.0- 75.0 [facility] Comment on above: Performed By: #### B MP #### [facility] [address] [address] [address] Kelly Mukherjee Platelet mean volume (Bld) [Entitic vol] 10.4 fL Normal 9.5-13.5 [facility] Comment on above: Performed By: #### B MP #### [facility] [address] [address] [address] Kelly Mukherjee PLT 72 103/ul Critically low 150-450 [facility] Comment on above: Performed By: #### B MP #### [facility] [address] [address] [address] Kelly Mukherjee RBC 3.17 106/ul Critically low 4.70-6.10 [facility] Comment on above: Performed By: #### B MP #### [facility] [address] [address] [address] Kelly Mukherjee WBC 3.5 103/ul Critically low 4.0-11.0 [facility] Comment on above: Performed By: #### B MP #### [facility] [address] [address] HEAD WO CONon [...] CELINE COLVIN Date: 2022-02-15 15:45 Normal [facility] PROF 14(COMP METB)on 022 Albumin [Mass/Vol] 3.7 g/dL Normal 3.4-5.0 [facility] Comment on above: Performed By: #### B MP #### [facility] [address] [place] [address] Dr. Kelly Mukherjee Albumin/Globulin [Mass ratio] 1.3 {ratio} Normal [facility] Comment on above: Performed By: #### B MP #### [facility] [address] [place] [address] Dr. Kelly Mukherjee ALP [Catalytic activity/Vol] 84 U/L Normal 46-116 [facility] Comment on above: Performed By: #### B MP #### [facility] [address] [place] [address] Dr. Kelly Mukherjee ALT [Catalytic activity/Vol] 29 U/L Normal 16-63 [facility] Comment on above: Performed By: #### B MP #### [facility] [address] [place] [address] Dr. Kelly Mukherjee Anion gap [Moles/Vol] 14.3 mmol/L Normal [facility] Comment on above: Performed By: #### B MP #### [facility] [address] [place] [address] Dr. Kelly Mukherjee AST [Catalytic activity/Vol] 15 U/L Normal 15-37 [facility] Comment on above: Performed By: #### B MP #### [facility] [address] [place] [address] Dr. Kelly Mukherjee Bilirubin [Mass/Vol] 0.5 mg/dL Normal 0.2-1.0 [facility] Comment on above: Performed By: #### B MP #### [facility] [address] [place] [address] Dr. Kelly Mukherjee Calcium [Mass/Vol] 9.0 mg/dL Normal 8.5-10.1 [facility] Comment on above: Performed By: #### B MP #### [facility] [address] [place] [address] Dr. Kelly Mukherjee Chloride [Moles/Vol] 105 mmol/L Normal 98-107 [facility] Comment on above: Performed By: #### B MP #### [facility] [address] [address] [address] Kelly Mukherjee CO2 [Moles/Vol] 27.0 mmol/L Normal 21.0-32.0 [facility] Comment on above: Performed By: #### B MP #### [facility] [address] [address] [address] Kelly Mukherjee Creatinine [Mass/Vol] 0.90 mg/dL Normal 0.70-1.30 [facility] Comment on above: Performed By: #### B MP #### [facility] [address] [address] [address] Kelly Mukherjee EGFR-AF SAMOAN >60 Normal >=60 [facility] Comment on above: Performed By: #### B MP #### [facility] [address] [address] [address] Klely Mukherjee EGFR-NON AF SAMOAN >60 Normal >=60 [facility] Comment on above: Performed By: #### B MP #### [facility] [address] [address] [address] Kelly Mukherjee Globulin (S) [Mass/Vol] 2.9 g/dL Normal [facility] Comment on above: Performed By: #### B MP #### [facility] [address] [address] [address] Kelly Mukherjee Glucose [Mass/Vol] 234 mg/dL Critically high 74-106 [facility] Comment on above: Performed By: #### B MP #### [facility] [address] [address] [address] Kelly Mukherjee Potassium [Moles/Vol] 4.3 mmol/L Normal 3.5-5.1 [facility] Comment on above: Performed By: #### B MP #### [facility] [address] [address] [address] Kelly Mukherjee Protein [Mass/Vol] 6.6 g/dL Normal 6.4-8.2 [facility] Comment on above: Performed By: #### B MP #### [facility] [address] [place] [address] Dr. Kelly Mukherjee Sodium [Moles/Vol] 142 mmol/L Normal 136-145 [facility] Comment on above: Performed By: #### B MP #### [facility] [address] [place] [address] Dr. Kelly Mukherjee Urea nitrogen [Mass/Vol] 27.0 mg/dL Critically high 7.0-18 .0 [facility] Comment on above: Performed By: #### B MP #### [facility] [address] [place] [address] Dr. Kelly Mukherjee Urea nitrogen/Creatinine [Mass ratio] 30.0 mg/mg Normal [facility] Comment on above: Performed By: #### B MP #### [facility] [address] [place] [address] Dr. Kelly Mukherjee PROTIMEon 02-15-2022 INR Coag (PPP) [Relative time] 1.03 {INR} Normal [facility] Comment on above: Performed By: #### C VDTBH #### [facility] [address] [place] [address] Dr. Kelly Mukherjee INR GUIDELINES SEE BELOW Normal [facility] Comment on above: Result Comment: JULIANA RED INR: 2.0 - 3.0 CONDITIONS NOT LISTED BELOW 2.5 - 3.5 FOR PROSTHETIC HEART VALVE REPLACEMENT 2.5 - 3.5 RECURRENT THROMBOSIS Performed By: #### C VDTBH #### [facility] [address] [place] [address] Dr. Kelly Mukherjee PT Coag (PPP) [Time] 11.1 s Normal 9.0-11.6 [facility] Comment on above: Performed By: #### C VDTBH #### [facility] [address] [place] [address] Dr. Kelly Mukherjee PTTon 02-15-2022 aPTT Coag (Bld) [Time] 26.9 s Normal 22.3-36.2 [facility] Comment on above: Performed By: #### C VDTBH #### [facility] [address] [place] [address] Dr. Kelly Mukherjee XR CHEST 1 Von [...] by: SONAM OLSON Date: 2022-02-15 15:49 Normal [facility] Vital Signs Date Time Vital Sign Value Performing Clinician Facility 06-10-2024 13:45-0400 Body height 172.72 cm [facility] 06-10-2024 13:45-0400 Body mass index (BMI) [Ratio] 23.1 kg/m2 [facility] 06-10-2024 13:45-0400 Body weight 69.05 kg [facility] 06-10-2024 13:45-0400 Diastolic blood pressure 89 mm[Hg] [facility] 06-10-2024 13:45-0400 Heart rate 61 /min [facility] 06-10-2024 13:45-0400 Respiratory rate 20 /min [facility] 06-10-2024 13:45-0400 Systolic blood pressure 139 mm[Hg] [facility] 02-26-2024 14:23-0400 Body height 172.72 cm [facility] 02-26-2024 14:23-0400 Body mass index (BMI) [Ratio] 25 kg/m2 [facility] 02-26-2024 14:23-0400 Body weight 74.84 kg [facility] 02-26-2024 14:23-0400 Diastolic blood pressure 64 mm[Hg] [facility] 02-26-2024 14:23-0400 Heart rate 67 /min [facility] 02-26-2024 14:23-0400 Respiratory rate 20 /min [facility] 02-26-2024 14:23-0400 Systolic blood pressure 169 mm[Hg] [facility] 12-14-2023 11:18-0500 Body height 172.72 cm [facility] 12-14-2023 11:18-0500 Body mass index (BMI) [Ratio] 24 kg/m2 [facility] 12-14-2023 11:18-0500 Body weight 71.89 kg [facility] 12-14-2023 11:18-0500 Diastolic blood pressure 53 mm[Hg] [facility] 12-14-2023 11:18-0500 Heart rate 65 /min [facility] 12-14-2023 11:18-0500 Respiratory rate 20 /min [facility] 12-14-2023 11:18-0500 Systolic blood pressure 170 mm[Hg] [facility] 11-06-2023 13:30-0500 Body height 172.72 cm Juan A Ball Other [facility] Other 11-06-2023 13:30-0500 Body mass index (BMI) [Ratio] 24.45 kg/m2 Juan A Ball Other [facility] [employer] Other 11-06-2023 13:30-0500 Body weight 72.94 kg Juan A Ball Other [facility] [employer] Other 11-06-2023 13:30-0500 Diastolic blood pressure 88 mm[Hg] Juan A Ball Other [facility] [employer] Other 11-06-2023 13:30-0500 Respiratory rate 12 /min Juan A Ball Other [facility] [employer] Other 11-06-2023 13:30-0500 Systolic blood pressure 138 mm[Hg] Juan A Ball Other [facility] [employer] Other 07-05-2023 11:30-0400 Body height 172.72 cm Juan A Ball Other [facility] Other 07-05-2023 11:30-0400 Body mass index (BMI) [Ratio] 24.87 kg/m2 Juan A Ball Other [facility] Other 07-05-2023 11:30-0400 Body weight 74.21 kg Juan A Ball Other [facility] Other 07-05-2023 11:30-0400 Diastolic blood pressure 64 mm[Hg] Juan A Ball Other [facility] Other 07-05-2023 11:30-0400 Respiratory rate 16 /min Juan A Ball Other [facility] Other 07-05-2023 11:30-0400 Systolic blood pressure 136 mm[Hg] Juan A Ball Other [facility] Other 04-04-2023 15:00-0400 Body height 172.72 cm Juan A Ball Other [facility] Other 04-04-2023 15:00-0400 Body mass index (BMI) [Ratio] 25.12 kg/m2 Juan A Ball Other [facility] Other 04-04-2023 15:00-0400 Body weight 74.93 kg Juan A Ball Other [facility] Other 04-04-2023 15:00-0400 Diastolic blood pressure 63 mm[Hg] Juan A Ball Other [facility] Other 04-04-2023 15:00-0400 Respiratory rate 12 /min Juan A Ball Other [facility] Other 04-04-2023 15:00-0400 Systolic blood pressure 173 mm[Hg] Juan A Ball Other [facility] Other 01-01-2023 14:30-0400 Body height 172.72 cm Juan A Ball Other [facility] Other 01-01-2023 14:30-0400 Body mass index (BMI) [Ratio] 24.93 kg/m2 Juan A Ball Other [facility] Other 01-01-2023 14:30-0400 Body weight 74.39 kg Juan A Ball Other [facility] Other 01-01-2023 14:30-0400 Diastolic blood pressure 62 mm[Hg] Juan A Ball Other [facility] Other 01-01-2023 14:30-0400 Respiratory rate 12 /min Juan A Ball Other [facility] Other 01-01-2023 14:30-0400 Systolic blood pressure 143 mm[Hg] Juan A Ball Other [facility] Other 10-13-2022 16:30-0500 Body height 172.72 cm Juan A Ball Other [facility] Other 10-13-2022 16:30-0500 Body mass index (BMI) [Ratio] 24.63 kg/m2 Juan A Ball Other [facility] Other 10-13-2022 16:30-0500 Body weight 73.48 kg Juan A Ball Other [facility] Other 10-13-2022 16:30-0500 Diastolic blood pressure 62 mm[Hg] Juan A Ball Other [facility] Other 10-13-2022 16:30-0500 Respiratory rate 12 /min Juan A Ball Other [facility] Other 10-13-2022 16:30-0500 Systolic blood pressure 122 mm[Hg] Juan A Ball Other [facility] Other 08-30-2022 14:43-0500 Body height 170.3 cm Tricia Crespo MD Work Phone: [facility] 08-30-2022 14:43-0500 Body temperature 97.7 [degF] Tricia Crespo MD Work Phone: [facility] 08-30-2022 14:43-0500 Body weight 73.57 kg Tricia Crespo MD Work Phone: [facility] 08-30-2022 14:43-0500 Diastolic blood pressure 59 mm[Hg] Tricia Crespo MD Work Phone: [facility] 08-30-2022 14:43-0500 Heart rate 59 /min Tricia Crespo MD Work Phone: [facility] 08-30-2022 14:43-0500 Respiratory rate 18 /min Tricia Crespo MD Work Phone: [facility] 08-30-2022 14:43-0500 SaO2% (BldA) [Mass fraction] 96 % Tricia Crespo MD Work Phone: [facility] 08-30-2022 14:43-0500 Systolic blood pressure 158 mm[Hg] Tricia Crespo MD Work Phone: [facility] Encounters Encounter Date Encounter Type Care Provider Facility Start: 06-19-2024 End: 06-19-2024 ambulatory [facility] Start: 06-10-2024 End: 06-10-2024 ambulatory [facility] Work Phone: Start: 06-10-2024 End: 06-10-2024 Patient encounter procedure [facility] Work Phone: Start: 06-07-2024 Patient encounter procedure [facility] Start: 02-26-2024 End: 02-26-2024 ambulatory [facility] Work Phone: Start: 02-26-2024 End: 02-26-2024 Patient encounter procedure [facility] Work Phone: Start: 02-18-2024 Non-patient / Non-visit [facility] Work Phone: Start: 02-15-2024 Non-patient / Non-visit [facility] Work Phone: Start: 02-14-2024 Non-patient / Non-visit [facility] Work Phone: Start: 02-07-2024 End: 02-07-2024 ambulatory [facility] ROBERSON Not Available Start: 12-14-2023 End: 12-14-2023 Patient encounter procedure [facility] Work Phone: Start: 11-06-2023 End: 11-06-2023 ambulatory Juan A Cox Other [facility] Other Start: 11-06-2023 Office outpatient vi sit 25 minutes Juan A Cox [facility] Start: 07-17-2023 End: 07-17-2023 ambulatory Juan A Blaise Other [facility] Other Start: 07-17-2023 Telephone encounter Juan A Cox [facility] Start: 07-05-2023 End: 07-05-2023 ambulatory Juan A Ball Other [facility] Other Start: 07-05-2023 Patient encounter procedure Juan A Cox [facility] Start: 04-04-2023 End: 04-04-2023 ambulatory Juan A Ball Other [facility] Other Start: 04-04-2023 Office outpatient vi sit 25 minutes Juan A Ball [facility] Start: 01-01-2023 End: 01-01-2023 ambulatory Juan A Ball Other [facility] Other Start: 01-01-2023 Office outpatient vi sit 25 minutes Juan A Ball [facility] Start: 12-14-2022 End: 12-14-2022 ambulatory Juan A Ball Other [facility] Other Start: 12-14-2022 Telephone encounter Juan A Ball [facility] Start: 12-11-2022 End: 12-12-2022 ambulatory Dominic CASTELLANOS Facility:[facility] Start: 12-11-2022 End: 12-11-2022 Patient encounter procedure Dominic CASTELLANOS [facility] Start: 12-08-2022 End: 12-09-[address] ODMINIC CASTELLANOS Facility: Start: 11-27-2022 End: 11-27-2022 ambulatory Juan A Ball Other [facility] Other Start: 11-27-2022 Telephone encounter Juan A Ball [facility] Start: 11-07-2022 End: 11-08-2022 ambulatory ELLIS HO Facility: Start: 10-29-2022 End: 10-29-2022 ambulatory Juan A Ball Other [facility] Other Start: 10-29-2022 Telephone encounter Juan A Ball [facility] Start: 10-20-2022 End: 10-20-2022 ambulatory Juan A Ball Other [facility] Other Start: 10-20-2022 Telephone encounter Juan A Ball [facility] Start: 10-13-2022 End: 10-13-2022 ambulatory Juan A Ball Other [facility] Other Start: 10-13-2022 Office outpatient vi sit [...] encounter procedure Tricia Crespo MD Work Phone: [place] Start: 05-08-2022 End: 05-08-[address] JUAN [...] 07-17-2018 End: 07-18-2018 Patient encounter DEFAULT PHYSICIAN Facility:[facility] Start: 09-18-2017 End: 09-19-2017 Patient encounter DEFAULT PHYSICIAN Facility:[facility] Procedures Date Procedure Procedure Detail Performing Clinician Start: 02-14-2024 Bacteria identified in Urine by Culture Start: 12-08-2022 PSA screening ELLIS GARCIA Comment on above: Performed By: #### C VDTB #### [facility] [address] [place] [address] Dr. Kelly Mukherjee Start: 04-06-2021 Extracorporeal shock [...] Author Start: 08-30-2025 DIABETES SCREEN DIABETES SCREEN [facility] Start: 02-27-2023 End: 04-29-2023 CBC W Auto Differential panel - Blood CBC + DIFF Lab Routine Splenomegaly Expected: 02/27/2023 (Approximate), Expires: 04/29/2023 [facility] Work Phone: Comment on above: Expected: 02/27/2023 (Approximate), Expires: 04/29/2023 Start: 02-27-2023 End: 04-29-2023 Comprehensive metabolic 2000 panel - Serum or Plasma COMP METABOLIC PANEL Lab Routine Splenomegaly Expected: 02/27/2023 (Approximate), Expires: 04/29/2023 [facility] Work Phone: Comment on above: Expected: 02/27/2023 (Approximate), Expires: 04/29/2023 Start: 08-30-2022 End: 10-30-2022 Cobalamin (Vitamin B12) [Mass/volume] in Serum or Plasma [facility] Work Phone: Comment on above: Expected: 08/30/2022 , Expires: 10/30/2022 Start: 08-30-2022 End: 08-30-2023 Ferritin [Mass/volume] in Serum or Plasma [facility] Work Phone: Comment on above: Expected: 08/30/2022 , Expires: 08/30/2023 Start: 08-30-2022 End: 08-30-2023 Iron and Iron binding capacity panel - Serum or Plasma [facility] Work Phone: Comment on above: Expected: 08/30/2022 , Expires: 08/30/2023 Start: 10-08-2021 ADVANCE DIRECTIVE DISCUSSION ADVANCE DIRECTIVE DISCUSSION [facility] Start: 10-08-2021 DEPRESSION ASSESSMENT DEPRESSION ASS ESSMENT [facility] Start: 02-01-2021 COVID-19 VACCINE (3 - Booster for Moderna series) COVID-19 VACCINE (3 - Booster for Moderna series) [facility] Start: 2011 PNEUMOCOCCAL: 65+ (1 - PCV) PNEUMOCOCCAL: 65+ (1 - PCV) [facility] Start: 1996 SHINGRIX VACCINE (1 of 2) SHINGRIX VACCINE (1 of 2) [facility] Start: 1965 Urine microalbumin profile DTAP,TDAP,TD (1 - Tdap) [facility] Start: 1964 ANNUAL PCP TEAM OCCUPATIONAL THERAPIST AIDE GAYLA DISEASE VISIT ANNUAL PCP TEAM CHRONIC DISEASE VISIT [facility] Start: 1964 Hepatitis B surface antibody level LDL CHOLESTEROL [facility] Bacteria identified in Urine by Culture [facility] Comprehensive metabo lic 2000 panel - Serum or Plasma [facility] Immunizations Immunization Date Immunization Notes Care Provider Milka puga 07-05-2023 influenza virus vaccine, unspecified formulation [facility] 07-05-2023 influenza, high dose seasonal, preservative-free Juan A Cox Other [employer] [facility] [employer] Other 07-11-2022 influenza (aIIV4) vaccine, age 65+ yr, quadrivalent, PF (FLUAD QUADRIVALENT) Tricia Crespo MD Work Phone: [facility] 07-11-2022 influenza virus vaccine, split virus (incl. purified surface antigen) Juan A Cox Other [facility] Other 07-11-2022 influenza virus vaccine, unspecified formulation Dominic CASTELLANOS [facility] 07-11-2022 influenza, high dose seasonal, preservative-free Juan A Cox Other [facility] [employer] Other 07-19-2021 influenza virus vaccine, split virus (incl. purified surface antigen) Juan A Cox Other [employer] Other 07-19-2021 influenza virus vaccine, unspecified formulation [facility] 07-08-2021 influenza virus vaccine, unspecified formulation Dominic CASTELLANOS [facility] 12-07-2020 COVID-19 original vaccine, full dose, monovalent (MODERNA) Tricia Crespo MD Work Phone: [facility] 12-06-2020 SARS-CoV-2 (COVID-19 ) mRNA-1273 vaccine [employer] [facility] 11-09-2020 COVID-19 original vaccine, full dose, monovalent (MODERNA) Tricia Crespo MD Work Phone: [facility] 11-08-2020 SARS-CoV-2 (COVID-19 ) mRNA-1273 vaccine [employer] [facility] 07-30-2020 influenza virus vaccine, split virus (incl. purified surface antigen) Juan A Cox Other [facility] [employer] Other 07-30-2020 influenza virus vaccine, unspecified formulation Dominic YEFRI [facility] 07-30-2020 influenza, injectabl e, quadrivalent, preservative free Tricia Crespo MD Work Phone: [facility] 07-21-2019 influenza virus vaccine, split virus (incl. purified surface antigen) Juan A Cox Other [facility] [employer] Other 07-21-2019 influenza virus vaccine, unspecified formulation [facility] 07-18-2018 influenza virus vaccine, split virus (incl. purified surface antigen) Juan A Cox Other [employer] Other 07-18-2018 influenza virus vaccine, unspecified formulation Dominic Macrotek [facility] 07-18-2018 Seasonal trivalent influenza vaccine, adjuvanted, preservative free Tricia Crespo MD Work Phone: [facility] 08-22-2017 influenza virus vaccine, split virus (incl. purified surface antigen) Juan A Cox Other [employer] Other 08-22-2017 influenza virus vaccine, unspecified formulation [facility] 08-20-2017 influenza virus vaccine, unspecified formulation Dominic [facility] 08-20-2017 Seasonal trivalent influenza vaccine, adjuvanted, preservative free Tricia Crespo MD Work Phone: [facility] 06-20-2016 influenza virus vaccine, split virus (incl. purified surface antigen) Juan A Cox Other [employer] [facility] [employer] Other 06-20-2016 influenza virus vaccine, unspecified formulation [facility] 09-03-2015 influenza virus vaccine, unspecified formulation Dominic Macrotek [facility] 09-03-2015 influenza, injectabl e, quadrivalent, preservative free Tricia Crespo MD Work Phone: [facility] 09-03-2015 pneumococcal conjuga te vaccine, 13 valent Juan A Cox Other [facility] 08-19-2014 influenza virus vaccine, unspecified formulation Dominic RICE [facility] 08-19-2014 influenza, injectabl e, quadrivalent, contains preservative Tricia Crespo MD Work Phone: [facility] 08-20-2013 influenza virus vaccine, unspecified formulation Dominic CASTELLANOS [facility] 08-20-2013 influenza, seasonal, injectable Tricia Crespo MD Work Phone: [facility] 08-20-2013 pneumococcal polysaccharide vaccine, 23 valent Juan A Cox Other [facility] 06-12-2013 tetanus and diphther ia toxoids, adsorbed, preservative free, for adult use (5 Lf of tetanus toxoid and 2 Lf of diphtheria toxoid) Juan A Cox Other [facility] 06-19-2012 tetanus and diphther ia toxoids, adsorbed, preservative free, for adult use (5 Lf of tetanus toxoid and 2 Lf of diphtheria toxoid) Juan A Cox Other [facility] 04-09-2002 diphtheria, tetanus toxoids and acellular pertussis vaccine, unspecified formulation Juan A Cox Other [facility] Payers Date Payer Category Payer Private Health Insurance [facility] AARP SUPPLEMENT [id number] 2015-Present [phone] [address] [place] [address] Indemnity [id number] 2011 Medicare MEDICARE MEDICAR E A AND B [id number] 2011-Present [phone] [address] [address] [place] [address] Medicare [id number] 1959 Medicare [id number] 1959 Unknown [id number] 1946 Unknown [id number] .647 1946 Unknown [id number] [id number] .647 1946 Unknown [id number] [id number] .593 1946 Unknown [id number] 2.16.840.1.658496.3.579.2 .593 1946 Unknown [id number] 2.16.840.1.893297.3.579.2 .593 1946 Unknown [id number] 2.16.840.1.500062.3.579.2 .593 1946 Unknown [id number] 2.16.840.1.374704.3.579.2 .593 1946 Unknown [id number] 2.16.840.1.316134.3.579.2 .593 1946 Unknown [id number] 2.16.840.1.997282.3.579.2 .593 1946 Unknown [id number] 2.16.840.1.953534.3.579.2 .593 1946 Unknown [id number] 2.16.840.1.649507.3.579.2 .593 1946 Unknown [id number] 2.16.840.1.767650.3.579.2 .727 1946 Unknown [id number] 2.16.840.1.729748.3.579.2 .1259 1946 Unknown [id number] [id number] .1286 Self-pay Self Pay [id number] Unknown Social History Date Type Detail Facility Start: 08-30-2022 End: 12-11-2022 Tobacco smoking status NHIS Ex-smoker [facility] History of tobacco use Current smoker [facility] History of tobacco use Passive smoker [facility] Start: 08-30-2022 Tobacco use and exposure Smokeless tobacco non-user [facility] Start: 08-30-2022 Alcohol intake Current non-dr arboriculturist of alcohol (finding) [facility] Start: 1945 Sex Assigned At Not on file [facility] Start: 08-20-2022 End: 08-30-2022 Exposure to SARS-CoV-2 (event) Not sure [facility] Hospital Sex Assigned At [facility] Start: 1945 Sex Assigned At Male F [facility] Medical Equipment Procedure Code Equipment Code Equipment Original Text Equi pment Identifier Dates Functional Status Date Assessment Result Facility 12-11-2022 Functional Status N/A [facility] Vivi Clinical Notes 08-30-2022 to 11-06-2023 [...] - Z85.038) UTD w/ CRC surceillance Oct, salvage determiner (current) use of insulin (ICD-10 - Z79.4) Oct, Nephrolithiasis (ICD-10 - N20.0) Push fluids and continue Allopurinol [facility] Other 09-28-2023 Evaluation note* Encounter Date Diagnosis [...] fecal incontinence. Denies melena or hematochezia Jun, salvage determiner (current) use of insulin (ICD-10 - Z79.4) Jun, Screening PSA (prostate specific antigen) (ICD-10 - Z12.5) Yearly PSA [facility] Other 06-28-2023 Evaluation note* Encounter Date Diagnosis [...] use, the patient reduces the risk for ME, CVA, HTN, cardiac dysrhythmias and sudden cardiac deaths.The patient is also aware of the association between PINA and morning headaches, daytime somnolence, fatigue and obesiity Noncompliant Mar, Hx of malignant neoplasm of colon (ICD-10 - Z85.038) No s/s recurrence. UTD w/ surveillance scopes Mar, correction (current) use of insulin (ICD-10 - Z79.4) [facility] Other 03-27-2023 Evaluation note* Encounter Date Diagnosis [...] use, the patient reduces the risk for ME, CVA, HTN, cardiac dysrhythmias and sudden cardiac deaths.The patient is also aware of the association between PINA and morning headaches, daytime somnolence, fatigue and obesity Dec, Alzheimer's disease, unspecified (ICD-10 - G30.9) Chronic condition, assisting w/ all activities of daily living. Continue present RX - aware of bradycardia as possible side effect Dec, correction (current) use of insulin (ICD-10 - Z79.4) Dec, Dementia in other diseases classified elsewhere, unspecified severity, without behavioral disturbance, psychotic disturbance, mood disturbance, and anxiety (ICD-10 - F02.80) Dec, Hx of malignant neoplasm of colon (ICD-10 - Z85.038) UTD w/ CRC screening [facility] Other 03-06-2023 Hospital Discharge instructions Patient Education [...] include: ?Spinach. ?Rhubarb. ?Beets. ?Potato chips and irish fries. ?Nuts. If you regularly take a diuretic medicine, make sure to eat at least 1 2 fruits or vegetables high in potassium each day. These include: ?Avocado. ?Banana. ?[place]ano, prune, carrot, or tomato juice. ?Baked potato. [...] Casseroles. Pizza. Lasagna. Frozen meals. Potato chips. Burundian fries. Summary You can reduce your risk [...] 01/19/2012 Document Revised: 01/14/2020 Document Reviewed: 09/04/2017 [employer] Patient Education 2020 [employer]. Follow Up Care 12/05/2021 11:51:44 With:YEFRI HUIZAR, Dominic Handley, URL Address: [address] [place] [address]- When: only if needed Comments:YAQUELIN [facility] 02-20-2023 Evaluation note* Encounter Date Diagnosis Assessment Notes Treatment Notes Treatment Clinical Notes Nov, Primary hypertension (ICD-10 - I10) [facility] Other 01-13-2023 Evaluation note* Encounter Date Diagnosis Assessment Notes Treatment Notes Treatment Clinical Notes Oct, EKTA (generalized anxiety disorder) (ICD-10 - F41.1) Oct, Elevated cholesterol (ICD-10 - E78.00) Oct, ASHD (arteriosclerotic heart disease) (ICD-10 - I25.10) [facility]om Other 01-06-2023 Evaluation note* Encounter Date Diagnosis [...] use, the patient reduces the risk for ME, CVA, HTN, cardiac dysrhythmias and sudden cardiac [...] are reviewed at the office visit. Oct, correction (current) use of insulin (ICD-10 - Z79.4) [facility] Other 11-25-2022 Miscellaneous Notes* Telephone Encounter - [...] adequaly hydrated every day [facility] NoteHNO ID: [id number] Author: Tricia Crespo MD Service: ? Author Type: Physician Type: Progress Notes Filed: 08/30/2022 3:09 PM Note Text: Patient: Brian Gould Location: [facility] : 1945 Attending Physician: Dr. Vazquez Quinonez [...] erythema BP 147/53[second a (more content not included)...[facility] 08-30-2022 History of Present illness Narrative* Tricia Crespo MD - 08/30/2022 2:59 PM EST Patient: Brian Gould Location: [facility] : 1945 Attending Physician: Dr. Vazquez Quinonez [...] units) Date Value 10/23/2013 Negative URINALYSIS Specific [place], [facility] Date Value Ref Range Status 06/26/2017 [...] Juan A Cox MD [facility] note No data available for this section [facility] Evaluation note* Diagnosis Splenomegaly- Primary Abnormal finding of blood chemistry, unspecified documented in this encounter [facility]No [facility] status[facility]om Other Evaluation note* Diagnosis Onset Date Resolution Status Second degree burn of back n oneactive Alzheimer's dementia acute ASHD (arteriosclerotic heart disease) acute Elevated cholesterol acute Pancytopenia acute Primary hypertension acute Type 2 diabetes mellitus with hyperglycemia acute [facility] Work Phone: Evaluation note* Diagnosis Onset Date Resolution Status Alzheimer's dementia acute ASHD (arteriosclerotic heart disease) acute Elevated cholesterol acute Encounter for subsequent [facility] wellness visit in Medicare patient acute Pancytopenia acute Primary hypertension acute Type 2 diabetes mellitus with hyperglycemia acute [facility] Work Phone: History general Narrative - [...] removal 07/2017 Hospitalization History see surgical history [facility] Other Progress note No data available for this section [facility] Summary Purpose Family History No Family History [...] section and content) DATE CREATED AUTHOR 08/14/2018 [facility] DATE CREATED AUTHOR AUTHOR'S ORGANIZ ATION 09/01/2022 [facility] DATE CREATED AUTHOR AUTHOR'S ORGANIZ ATION 12/12/2022 [facility] DATE CREATED AUTHOR AUTHOR'S ORGANIZ ATION 12/13/2022 [facility] DATE CREATED AUTHOR AUTHOR'S ORGANIZ ATION 02/09/2024 [facility] dical [facility] DATE CREATED AUTHOR AUTHOR'S ORGANIZ ATION 06/21/2024 [facility] Comments (unrecognize d section and content) In the event this informatio n is protected by the Federal Confidentiality of Alcohol and Drug Abuse Patient Records regulations: The Federal rules restrict any use of the information to criminally investigate or prosecute any alcohol or drug abuse patient.[facility] HospitalIn the event this information is protected by the Federal Confidentiality of Alcohol and Drug Abuse Patient Records regulations: The Federal rules restrict any use of the information to criminally investigate or prosecute any alcohol or drug abuse patient[facility] Reason for Visit (unrecogniz ed section and content) Reason Comments Pancytopenia Follow up Reason Comments Care Coordination Lab Results Care Teams (unrecognized sec tion and content) Trouble Dispatcher Relationship Specialty Start Date End Date Juan A Cox DO PCP - General Internal Medicine 11/14/11 Trouble Dispatcher Relationship Specialty Start Date End Date Juan [...] Care Provider Active Start: February 18, 2024 DAVDIE Arthur Attending Provider Active St art: February [...] BE BASED ON THE PRIMARY CLINICAL RECORDS. [employer] [facility]. provides no warranty or guarantee of the accuracy or completeness of information in this document.
[2024-07-09 08:10] VITALS: BP 168/69; PULSE 63; TEMP 36.2; O2SAT 99; BMI 22.8
[2024-07-09] MEDS: LACTATED RINGER'S SOLUTION 1,000 ML 50 ML IV (08:33)
[2024-07-09 08:42] LABS: Glucometer 125 mg/dL (74-106)
[2024-07-09 10:10] VITALS: BP 126/54; PULSE 52; TEMP 36.6; O2SAT 98
[2024-07-09 10:25] VITALS: BP 159/61; PULSE 56; O2SAT 100
[2024-07-09 10:40] VITALS: BP 176/74; PULSE 75; O2SAT 99
[2024-07-09 10:55] VITALS: BP 168/68; PULSE 70; O2SAT 98
== END 2024-07-09 11:15 | disposition home or self-care (01) ==
PROVIDERS: PCP Internal Medicine; Visit Provider Surgery
PROC: (CPT 45385; principal; 2024-07-09 08:55)
DX: Z12.11 Encounter for screening for malignant neoplasm of colon (principal); D12.2 Benign neoplasm of ascending colon; Z85.048 Personal history of other malignant neoplasm of rectum, rectosigmoid junction, and anus; K62.4 Stenosis of anus and rectum; R19.7 Diarrhea, unspecified; Z95.1 Presence of aortocoronary bypass graft; R15.2 Fecal urgency; R63.4 Abnormal weight loss; E11.9 Type 2 diabetes mellitus without complications; E78.5 Hyperlipidemia, unspecified; I10 Essential (primary) hypertension; I25.10 Atherosclerotic heart disease of native coronary artery without angina pectoris; Z86.0100 Personal history of colon polyps, unspecified; Z68.22 Body mass index [BMI] 22.0-22.9, adult
CPT/HCPCS: 45385; 36415; 82948; J2704

== ENCOUNTER 2024-08-04 14:21 | Outpatient (OUT) | payer MEDICARE, SELFPAY | END 2024-08-04 14:22 | disposition home or self-care (01) | LOC: LAB 14:24 | PROVIDERS: PCP Internal Medicine; Visit Provider Physician Assistant | DX: G40.909 Epilepsy, unspecified, not intractable, without status epilepticus (principal) | CPT/HCPCS: 36415; 80183 ==

== ENCOUNTER 2025-05-20 11:23 | Emergency (ER) | payer MEDICARE, SELFPAY ==
--- OUTSIDE RECORDS SUMMARY | 2025-05-20 11:30 | XMS_ITS | Clinical Summary ---
Author Organization [facility] Address [address] [place] [id number] Care Team Providers Care Shop Estimator Name Role Phone Juan A Cox DO Primary Care Provider [phone] Allergies Active Allergy Reactions Criticality Noted Date Comments Neomycin Rash Low 08/18/2009 Other reaction(s): AOF Other reaction(s): AOF Medications insulin 70-30 aspart protamine-aspar t (NOVOLOG MIX 70/30) 100 units/mL injection Inject subcutaneously twice daily before meals. Takes 45 units in the morning and 30 unit at supper time. Active OXCARBAZEPINE 300 mg tablet Take 300 mg by mouth. Take 2 1/2 tablets in the morning and 2 1/2 tablet at night time. 03/10/20 14 Active aspirin, enteric coated 81 mg EC tablet Take 81 mg by mouth once daily. Active simvastatin (ZOCOR) 20 mg tablet Take 20 mg by mouth daily at bedtime. Active VITAMIN E, DL,TOCOPHERYL ACET, (VITAMIN E, DL, ACETATE,) 1,000 unit cap Take by mouth. Activ e NAMENDA XR 28 mg CSpX 28 mg once daily. 01/19/20 16 Active donepezil (ARICEPT) 10 mg tablet Take 10 mg by mouth daily at bedtime. 12/08/19 16 Active allopurinol (ZYLOPRIM) 300 mg tablet Take 300 mg by mouth once daily. 06/25/20 17 Active citalopram (CELEXA) 20 mg tablet Take 20 mg by mouth once daily. 12/29/19 18 Active isosorbide mononitrate ER (IMDUR) 30 mg 24 hr tablet Take 30 mg by mouth once daily. 12/28/19 18 Active HYDROcodone-kayla taminophen (NORCO) 5-325 mg per tablet 04/06/20 21 Active losartan (COZAAR) 50 mg tablet Take 50 mg by mouth once daily. 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 Pulmonary embolism 05/20/2014 Thrombocytopenia 11/11/2012 Rectal cancer 10/30/2012 Unspecified epilepsy without mention of intractable epilepsy 12/21/2011 Immunizations Immunization Administration Dates Next Due COVID-19 original vaccine, f ull dose, monovalent (MODERNA) 12/07/2020,11/09/2020 influenza (IIV3) vaccine, tr ivalent (AFLURIA, FLULAVAL, FLUVIRIN, FLUZONE) 08/20/2013 influenza (IIV4) vaccine, ag e 6 mo - 64 yr, quadrivalent, PF (AFLURIA, FLUARIX, FLULAVAL, FLUZONE) 07/30/2020,09/03/2015 influenza (IIV4) vaccine, qu adrivalent (AFLURIA, FLULAVAL, FLUZONE) 08/19/2014 influenza (aIIV3) vaccine, a ge 65+ yr, trivalent, PF (FLUAD) 07/18/2018,08/20/2017 influenza (aIIV4) vaccine, a ge 65+ yr, quadrivalent, PF (FLUAD QUAD) 07/11/2022 Social History Tobacco Use Types Packs/Day Years Used Date Smoking Tobacco: Former Passive Smoke Exposure: Past Smokeless Tobacco: Never Tobacco Cessation:Counseling Given: Not Answered Alcohol Use Standard Drinks/Week Comments No 0 (1 standard drink = 0.6 oz pur e alcohol) PHQ-2 Answer Date Recorded PHQ-2 score 0 02/28/2023 Area Deprivation Index Answer Date Chinedu rded National Score (1-100), lower number is lower ri sk 87 02/28/2023 State Score (1-10), lower number is lower risk 8 02/28/2023 Data from: https://www.neighborhoodatlas.medicine.[facility].edu/. Last address used for calculation [address] 02/28/2023 Sex and Gender Information Value Date Recorded Sex Assigned at Not on file Legal Sex Male 10:12 AM EST Gender Identity Not on file Sexual Orientation Not on file Last Filed Vital Signs Vital Sign Reading Time Taken Comments Blood Pressure 124/71 02/28/2023 2:09 PM EDT Pulse 59 02/28/2023 2:09 PM EDT Temperature 36.6 C (97.8 F) 02/28/2023 2:09 PM EDT Respiratory Rate 16 02/28/2023 2:09 PM EDT Oxygen Saturation 96% 02/28/2023 2:09 PM EDT Inhaled Oxygen Concentration - - Weight 74.9 kg (165 lb 3.2 oz) 02/28/2023 2:09 P M EDT Height 170.3 cm (5' 7.05 ) 02/28/2023 2:09 PM ED T Body Mass Index 25.84 02/28/2023 2:09 PM EDT Plan of Treatment Health Maintenance Due Date Last Done Comments Annual PCP Team Chronic Dise ase Visit 1963 Anxiety Screening 1963 Depression Screening 1964 LDL Cholesterol 1964 DTaP,Tdap,Td Vaccine (1 - Tdap) 1965 Pneumococcal Vaccine: 50+ (1 of 1 - PCV) 1996 Shingrix Vaccine (1 of 2) 1996 Medicare Annual Wellness Visit 04/07/2011 RSV Vaccine (1 - 1-dose 75+ series) 2021 Advance Directive Discussion 10/08/2024 Influenza Vaccine (#1) 2025 2, 07/30/2020, 07/18/2018, Additional history exists Diabetes Screening 02/28/2026 02/28/2023, 1 10/30/2021, 04/22/2021, Additional history exists Procedures Procedure Name Priority Date/Time Associated Diagnosis Comments COMPREHENSIVE METABOLIC PANEL Routine 02/28/2023 2:02 PM EDT Splenomegaly from Last 3 Months or Most Recently Relevant to Health Maintenance Results * (ABNORMAL) COMP METABOLIC PANEL (02/28/2023 2:02 PM EDT) Protein, Total 6.6 6.3 - 8.0 g/dL 02/28/2023 2:43 PM EDT [facility] Albumin 4.2 3.9 - 4.9 g/dL 02/28/2023 2:43 PM EDT [facility] Calcium, Total 9.6 8.5 - 10.2 mg/dL 02/28/2023 2:43 PM EDT [facility] Bilirubin, Total 0.4 0.2 - 1.3 mg/dL 02/28/2023 2:43 PM EDT [facility] Alkaline Phosphatase 97 38 - 113 U/L 02/28/2023 2:43 PM EDT [facility] AST 18 14 - 40 U/L 02/28/2023 2:43 PM T [facility] ALT 20 10 - 54 U/L 02/28/2023 2:43 PM EDT [facility] Glucose 149(H) 74 - 99 mg/dL 02/28/2023 2:43 PM T [facility] Comment: The [place] Diabetes Association (ADA) provides guidance for cutoff [...] Standards of Medical Care in Diabetes 2016, [place] Diabetes Association. Diabetes Care. 2016.39(Suppl 1). BUN 27(H) 9 - 24 mg/dL 02/28/2023 2:43 PM T [facility] Creatinine 1.02 0.73 - 1.22 mg/dL 02/28/2023 2:43 PM T [facility] Sodium 142 136 - 144 mmol/L 02/28/2023 2:43 PM EDT [facility] Potassium 4.1 3.7 - 5.1 mmol/L 02/28/2023 2:43 PM EDT [facility] Chloride 104 97 - 105 mmol/L 02/28/2023 2:43 PM EDT [facility] CO2 31(H) 22 - 30 mmol/L 02/28/2023 2:43 PM EDT [facility] Anion Gap 7(L) 9 - 18 mmol/L 02/28/2023 2:43 PM EDT [facility] Estimated Glomerular Filtration Rate 76 >=60 mL/min/1. 73m 02/28/2023 2:43 PM EDT [facility] Comment:Estimated Glomerular Filtration Rate (eGFR) is calculated using the 2020 CKD-EPI creatinine equation. This equation utilizes serum creatinine, sex, and age as parameters. The creatinine assay has traceable calibration to isotope dilution- mass spectrometry. Refer to KDIGO guidelines for clinical interpretation. In patients with unstable renal function, e.g. those with acute kidney injury, the eGFR may not accurately reflect actual GFR. Blood BLOOD SPECIMEN / Unknown Venipuncture / Unknown 02/28/2023 2:02 PM EDT 02/28/2023 2:02 PM EDT Rey Crespo MD LABORATORY Final Result [facility] [address] [place] [address] from Last 3 Months or Most Recently Relevant to Health Maintenance Insurance [facility] MEDICARE Care Teams Shop Estimator Relationship Specialty Start Date End Date Juan A Cox DO PCP - General Internal Medicine 11/14/11
--- OUTSIDE RECORDS SUMMARY | 2025-05-20 11:30 | XMS_ITS | Clinical Summary ---
Author Organization [facility] Healthcare Address [address] [place] [address] Care Team Providers Care Road Freight Brake Coupler Name Role Phone Juan A Cox DO Primary Care Provider [phone] Allergies Active Allergy Reactions Criticality Noted Date Comments Neomycin Rash Low 08/18/2009 Other reaction(s): AOF Other reaction(s): AOF Other reaction(s): AOF Medications allopurinol (Zyloprim) 300 MG tablet 11/06/2023 Active amLODIPine (Norvasc) 5 MG tablet 12/18/2023 Active citalopram (CeleXA) 20 MG tablet 11/05/2023 Active NovoLOG MIX 70/30 FLEXPEN (70-30) 100 UNIT/ML injection 11/05/2023 Active isosorbide mononitrate ER (Imdur) 30 MG 24 hr tablet 12/19/2023 Active losartan (Cozaar) 50 MG tablet 12/18/2023 Active simvastatin (Zocor) 20 MG tablet Take 20 mg by mouth at bedtime Active doxycycline (Vibramycin) 100 MG capsule TAKE ONE CAPSULE BY MOUTH ONCE DAILY FOR 7 DAYS 12/14/2023 Active OXcarbazepine (Trileptal) 300 MG tabletIndication s:Seizure disorder (HCC) TAKE 3 TABLETS TWICE DAILY 540 tablet 3 05/30/2024 Active donepezil (Aricept) 10 MG tabletIndication s:Dementia (HCC) TAKE 1 TABLET AT BEDTIME 90 tablet 3 03/05/2025 Active Memantine HCl ER 28 MG capsule sustained-releas e 24 hrIndications:De mentia (HCC) TAKE 1 CAPSULE EVERY DAY 90 capsule 3 03/05/2025 Active Active Problems Problem Noted Date Diagnosed Date PLMD (periodic limb movement disorder) 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 He was recently seen at [facility] 02/15/2022 for an episode of tremors and headache associated with gasping for breath. Head CT revealed chronic age related changes and no acute process. His glucose was noted to be 234. Chest Xray was nonacute. 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 He denies back pain. He may have a peripheral nerve process such as lumbar radiculopathy or polyneuropathy contributing to his symptoms. He is a diabetic. He previously declined EMG. Hypertension Insomnia Hypersomnia Dementia Overview (03/17/2024): He continues with memory troubles. MOCA 11/26/2023 is 13/30 (MOCA 12/28/2022: , MOCA 11/29/21: , MOCA 12/02/20: , MOCA 2018: ). Treated with Namenda and Aricept. I advised patient to refrain from driving. His states he does not drive. Diabetes mellitus, type II Seizure Overview (03/17/2024): history of seizure disorder with focal events and treated with Trileptal. Routine EEG (12/09/2021) was normal. 2 hour EEG (01/04/2022) was normal. He is unable to tolerate ambulatory EEG. Trileptal level was 40 on 10/20/2022. Stable Encounters Date Type Department Care Team Description 03/03/2025 Refill JESSICA HERRING [address] [place] [address] Kristen Barrera PA Dementia (HCC) (Primary Dx) from Last 3 Months Immunizations Immunization Administration Dates Next Due Pneumococcal Conjugate PCV 13 09/01/2020 Family History Relation Name Status Comments Father Mother Social History Tobacco Use Types Packs/Day Years Used Date Smoking Tobacco: Former Cigarettes Passive Smoke Exposure: Never Comments:Age stop: 26 Alcohol Use Standard Drinks/Week Comments Never 0 (1 standard drink = 0.6 oz pur e alcohol) Sex and Gender Information Value Date Recorded Sex Assigned at Not on file Legal Sex Male 8:35 PM EDT Gender Identity Not on file Sexual Orientation Not on file Last Filed Vital Signs Vital Sign Reading Time Taken Comments Blood Pressure 140/82 08/04/2024 11:26 AM EDT Pulse 60 08/04/2024 11:26 AM EDT Temperature - - Respiratory Rate 16 08/04/2024 11:26 AM EDT Oxygen Saturation 100% 08/04/2024 11:26 AM EDT Inhaled Oxygen Concentration - - Weight 70.3 kg (155 lb) 08/04/2024 11:26 AM EDT Height 172.7 cm (5' 8 ) 08/04/2024 11:26 AM EDT Body Mass Index 23.57 08/04/2024 11:26 AM EDT Plan of Treatment Health Maintenance Due Date Last Done Comments Pneumococcal Vaccine: 65+ Ye ars (2 of 2 - PPSV23) 09/01/2021 09/01/2020 Influenza Vaccine (#1) 2025 2, 07/30/2020, 07/18/2018, Additional history exists Insurance MEDICARE [facility] Care Teams Road Freight Brake Coupler Relationship Specialty Start Date End Date Juan A Cox DO PCP - General Internal Medicine 02/07/24
--- OUTSIDE RECORDS SUMMARY | 2025-05-20 11:35 | XMS_ITS | CCD ---
Author Organization [facility] Care Team Providers Care Mine Exploration Engineer Name Role Phone PHYSICIAN, DEFAULT Unavailable Unavailable PHYSICIAN, DEFAULT Unavailable Unavailable BLAISE, JUAN A Unavailable Unavailable PHYSICIAN, DEFAULT Unavailable Unavailable PHYSICIAN, DEFAULT Unavailable Unavailable BLAISE, JUAN A Unavailable Unavailable Blaise CHARLTON, Juan A Palafox Primary Care Provider TRICIA CRESPO Referring Unavailable BLAISE, JUAN A Palafox Primary Care Unavailable TRICIA CRESPO Attending Unavailable JUAN A COX Referring Unavailable BLAISE, JUAN A Palafox Primary Care Unavailable Juan A Cox Unavailable JUAN A COX Primary Care Physician KRISTEN HO Admitting Unavailable GEORGIA, KRISTEN Attending Unavailable BLAISE, DR DORADO Primary Care Unavailable WEST, DR SHAKA Richter Consulting Unavailable GEORGIA, KRISTEN Consulting Unavailable GEORGIAKRISTEN Consulting Unavailable BALL, DR DORADO Primary Care Unavailable KRISTEN HO Attending Unavailable GEORGIA, KRISTEN Admitting Unavailable RICE, DR DOMINIC Handley Consulting Unavailable BALL, DR DORADO Primary Care Unavailable RICE, DR DOMINIC Handley Attending Unavailable RICE, DR DOMINIC Handley Admitting Unavailable WEST, DR SHAKA Richter Consulting Unavailable BLAISE, DR DORADO Primary Care Unavailable ONELIA WATKINS Admitting Unavailable ONELIA WATKINS Attending Unavailable Sonam Olson Consulting Unavailable MARKELL THORNE Consulting Unavailable MARCELLO Curry, ONELIA Consulting Unavailable BLAISE, DR DORADO Primary [...] BARBOUR Consulting Unavailable SISTER, RENE Consulting Unavailable BALL, DR DORADO Admitting Unavailable BALL, DR DORADO Attending Unavailable BALL, DR DORADO Primary Care Unavailable BALL, DR DORADO Consulting Unavailable BALL, DR DORADO Admitting Unavailable BALL, DR DORADO Attending Unavailable BALL, DR DORADO Primary Care Unavailable BALL, DR DORADO Consulting Unavailable Zieber, Sonam Consulting Unavailable BALL, DR DORADO Admitting Unavailable BALL, DR DORADO Attending Unavailable BALL, DR DORADO Primary Care Unavailable BALL, DR DORADO Consulting Unavailable Dominic CASTELLANOS Attending Unavailable RADHA, ALEXANDRA Desai Attending Unavailable JUAN A COX Referring Unavailable BLAISE, JUAN A Palafox Primary Care Unavailable DO Juan A Cox Primary Care Provider DO Jurgen Lozano Attending Provider Jurgen Lozano Attending Unavailable Jurgen Lozano Admitting Unavailable Blaise, Juan A Primary Care Unavailable Juan A Cox MD Primary Care Provider AAMIR WATKINS Attending Unavailable CUBA, KRISTEN Attending Unavailable CUBA, KRISTEN Attending Unavailable Juan A oCx DO Primary Care Provider Allergies Allergy Classification Reported Allergen(s) Allergy Type Date of Onset Reaction(s) Facility (9 sources) neomycin; 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: [NEOMYCIN] Drug Allergy 9 AOF, Unknown Reaction [facility] Repository (13 sources) Neomycin; 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: [neomycin] Drug Allergy 9 Rash [facility] (7 sources) Simvastatin Drug Allergy 4 Unknown, Unknown Reaction [facility] (1 source) Neomycin Drug Allergy 4 [facility] Repository (1 source) Simvastatin Drug Allergy 4 [facility] Repository Medications Current Medications Medication Drug Class(es) Dates Sig (Normalized) Sig (Original) allopurinol 300 mg oral tablet (20 sources) Xanthine Oxidase Inhibitor Start: 06-25-2017 take 1 tablet by mouth once daily Allopurinol 300 mg tablet Active 300 MG PO Daily December 14, 2023 12:00am Comment on above: Take 300 mg by mouth once daily. amLODIPine (20 sources) Dihydropyridine Calcium Channel Emma Start: 09-22-2024 Amlodipine 5 mg tablet Active 0 .ROUTE .COMPLEX 90 September 22, 2024 7:37am TAKE 1 TABLET ONE TIME DAILY Start: 12-14-2023 End: 09-22-2024 take 1 tablet by mouth once daily Amlodipine 5 mg tablet Discontinued 5 MG PO Daily 90 90 September 10, 2024 10:16am September 22, 2024 7:37am Start: 12-11-2022 amlodipine Ora l, Daily Start Date: 12/11/22 Status: Ordered aspirin 81 mg oral tablet (7 sources) Platelet Aggregation Inhibitor, Nonsteroidal Anti-inflammatory Drug Start: 01-08-2019 take 1 tablet by mouth once daily aspirin 81 mg oral tablet 81 mg = 1 tab(s), Oral, Daily, Blood Thinner Start Date: 01/08/19 Status: Ordered aspirin 81 mg da yan. Active Comment on above: Take 81 mg by mouth once daily. citalopram 20 mg oral tablet (20 sources) Serotonin Reuptake Inhibitor Start: 8 citalopram (CeleXA) 20 mg tablet 05/05/2019 Active Comment on above: Take 20 mg by mouth once daily. donepezil hydrochloride 10 mg oral tablet (20 sources) Start: 6 take 1 tablet by mouth once daily at bedtime Donepezil 10 mg tablet Active 10 MG PO Daily at bedtime December 14, 2023 12:00am Comment on above: Take 10 mg by mouth daily at bedtime. Eye Health Formula (1 source) Start: 9 take 1 capsule by mouth once daily Eye Health Formula 1 cap(s), Oral, Daily, Prophylaxis Start Date: 01/08/19 Status: Ordered 3 ml insulin aspart protamine, human 70 unt/ml / insulin aspart, human 30 unt/ml pen injector (20 sources) Insulin Analog Start: 4 Insulin Asp Prt-Insulin Aspart (Novolog Mix 70-30flexpen U-100) 100 unit/mL (70-30) insulin pen Active 28 UNIT SUBCUT Every morning December 14, 2023 12:00am INJECT 28 UNITS UNDER THE SKIN BEFORE BREAKFAST AND 12 UNITS BEFORE EVENING MEAL Start: 02-23-2019 NOVOLOG MIX 70 -30FLEXPEN U-100 100 unit/mL (70-30) insulin pen 20 units with breakfast 10 units with dinner 02/23/2019 Active End: 06-19-2024 insulin asp prt-insulin aspa rt (NovoLOG 70/30) 100 unit/mL (70-30) injection Inject under the skin. 06/19/2024 Discontinued (Duplicate Listing) NovoLOG Mix 70/3 0 FlexPen (70-30) 100 [...] mononitrate 30 mg extended release oral tablet (20 sources) Nitrate Vasodilator Start: End: take 1 tablet by mouth once daily, then take 1 tablet by mouth every twenty-four hours Isosorbide Mononitrate 30 mg tablet extended release 24 hr Active 30 MG PO Daily 90 90 September 10, 2024 10:17am Start: 12-27-2017 isosorbide mon onitrate ER (Imdur) 30 MG 24 hr tablet 12/19/2023 Active Start: 12-27-2017 take 1 tablet by alexandre th once daily in the morning isosorbide mononitrate 30 mg ER Tab 30 mg = 1 tab(s), Oral, qAM Start Date: 03/03/21 Status: Ordered Comment on above: Take 30 mg by mouth once daily. losartan potassium 50 mg oral tablet (20 sources) Angiotensin 2 Receptor Emma Start: 09-14-2024 Losartan 50 mg tablet Active 0 .ROUTE .COMPLEX 180 September 14, 2024 4:58pm TAKE 1 TABLET TWICE DAILY Start: 12-14-2023 End: 09-14-2024 take 1 tablet by mouth twice daily Losartan 50 mg tablet Discontinued 50 MG PO Twice daily December 14, 2023 12:00am September 14, 2024 4:58pm Start: 12-11-2022 losartan Oral, Daily Start Date: 12/11/22 Status: Ordered Start: 08-22-2022 take 1 tablet by alexandre once daily losartan (COZAAR) 50 mg tablet Take 50 mg by mouth once daily. 0 08/22/2022 Active Comment on above: Take 50 mg by mouth once daily. 24 hr memantine hydrochloride 28 mg extended release oral capsule (20 sources) C-apmxro-O-aspartat e Receptor Antagonist Start: 4 take 1 capsule by mouth once daily Memantine 28 mg capsule,sprinkle,E R 24hr Active 28 MG PO Daily December 14, 2023 12:00am Start: 01-19-2016 memantine (NAM ENDA XR) 28 mg capsule,sprinkle,ER 24hr memantine 28 mg capsule sprinkle,extended release 24hr 01/19/2016 Active Start: 01-19-2016 take 28 mg by mouth once daily memantine 28 mg, Oral, Daily, Other (see comment) Start Date: 01/08/19 Status: Ordered Comment on above: 28 mg once daily. metoprolol tartrate 25 mg oral tablet (18 sources) beta-Adrenergic Emma Start: 4 End: 4 take 1 tablet by mouth twice daily Metoprolol Tartrate 25 mg tablet Active 25 MG PO Twice daily December 14, 2023 12:00am Comment on above: Take 25 mg by mouth twice daily. MULTIVITAMIN ORAL (4 sources) MULTIVITAMIN ORA L Take by mouth. Active Multivitamin, Therapeutic w/ Minerals (1 source) Start: 9 take 1 tablet by mouth once daily Multivitamin, Therapeutic w/ Minerals 1 tab(s), Oral, Daily, Prophylaxis Start Date: 01/08/19 Status: Ordered NovoLog Mix 70/30 FlexPen (1 source) Start: 9 NovoLog Mix 70/30 FlexPen 8 unit(s), SubCutaneous, Supper, Blood glucose Start Date: 01/08/19 Status: Ordered OXcarbazepine 300 mg oral tablet (20 sources) Anti-epileptic Agent Start: 4 take 1 tablet by mouth twice daily Oxcarbazepine 300 mg tablet Active 300 MG PO Twice daily December 14, 2023 12:00am Start: 03-10-2014 End: 08-28-2024 OXcarbazepine (Trileptal) 30 0 MG tablet Indications: Seizure disorder (CMS/HCC) TAKE 3 TABLETS TWICE DAILY 540 tablet 3 05/30/2024 08/28/2024 Active Start: 03-10-2014 [facility] 2 [facility] oxcarbazepine 300 mg Tab 600 mg = 2 tab(s), Oral, BID Start Date: 03/03/21 Status: [facility] OXcarbazepine 300 MG 1 tablet Orally Twice a day Active Comment on above: Take 300 mg by mouth . Take 2 1/2 tablets in the morning and 2 1/2 tablet at night time. silver sulfADIAZINE 10 mg/ml topical cream (4 sources) Sulfonamide Antibacterial Start: 12-14-2023 Silver Sulfadiazine (Silvadene) 1 % cream Active 1 APPLIC TOPICAL Twice daily 20 December 14, 2023 12:00am apply a 1.5 mm thickness simvastatin 20 mg oral tablet (20 sources) HMG-CoA Reductase Inhibitor Start: 09-22-2024 Simvastatin 20 mg tablet Active 0 .ROUTE .COMPLEX 90 September 22, 2024 7:37am TAKE 1 TABLET ONE TIME DAILY IN EVENING Start: 01-08-2019 End: 09-22-2024 take 1 tablet by mouth once daily in the evening Simvastatin 20 mg tablet Discontinued 20 MG PO Every evening December 14, 2023 12:00am September 22, 2024 7:37am Comment on above: Take 20 mg by mouth daily at bedtime. sod sulf-pot chloride-mag sulf 1.479-0.188- 0.225 gram tablet (4 sources) Start: 06-19-2024 sod sulf-pot chloride-mag sulf 1.479-0.188- 0.225 gram tablet Indications: History of rectal cancer Please see instructional sheet given by physicians office. 24 tablet 06/19/2024 Active Vitamin E (4 sources) Start: 01-08-2019 vitamin E 1,000 International_Unit, Oral, Daily, Prophylaxis Start Date: 01/08/19 Status: Ordered End: 06-19-2024 take 1 capsule by mouth twice daily vitamin E, dl,tocopheryl acet, (VITAMIN E, DL, ACETATE,) 1,000 unit capsule vitamin E (dl, acetate) 1,000 unit capsule Take 1 capsule twice a day by oral route. 06/19/2024 Discontinued (Therapy completed) VITAMIN E, DL,TO COPHERYL ACET, (VITAMIN E, DL, ACETATE,) 1,000 unit cap Take by mouth. 0 Active Comment on above: Take by mouth. Completed/Discontinued Medications Medication Drug Class(es) Dates Sig (Normalized) Sig (Original) acetaminophen 325 mg / HYDROcodone bitartrate 5 mg oral tablet (2 sources) Opioid Agonist Start: 04-06-2021 HYDROcodone-acetami nophen (NORCO) 5-325 mg per tablet cefuroxime 500 mg oral tablet (9 sources) Cephalosporin Antibacterial Start: 02-29-2024 End: 03-06-2024 take 1 tablet by mouth twice daily Cefuroxime Axetil 500 mg tablet Discontinued 500 MG PO Twice daily March 02, 2024 2:37pm March 06, 2024 12:18pm doxycycline hyclate 100 mg oral capsule (7 sources) Tetracycline-class Drug Start: 12-14-2023 End: 02-26-2024 take 1 capsule by mouth once daily Doxycycline Hyclate 100 mg capsule Discontinued 100 MG PO Daily 04 13December 14, 2023 12:00am February 26, 2024 1:45pm iv contrast (will be provided with radiology [...] in the CT contrast administration guidelines link. magnesium sulfate 0.0277 meq/ml / potassium sulfate 0.0374 meq/ml / sodium sulfate 0.257 meq/ml oral solution (1 source) Start: 06-02-2019 End: 06-19-2024 sodium,potassium,mag sulfates (SUPREP BOWEL PREP KIT) 17.5-3.13-1.6 gram recon soln 177 ml,actual weight, 2 times daily, Oral 1 kit 06/02/2019 06/19/2024 Discontinued (Therapy completed) Problems Active Problems Problem Classification Problem Date [...] of colon 01-08-2019 Chronic Cancer of colon (14 sources) Personal history of other malignant neoplasm of large intestine; 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: [History of malignant neoplasm of colon] Onset: 3 Episodic Cancer of rectum and anus (3 sources) Malignant tumor of rectum; 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: [Malignant neoplasm of rectum] Onset: 3 10-30-2012 Chronic Cardiac and circulatory congenital anomalies (3 sources) Congenital anomaly of cerebrovascular system; 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: [Other malformations of cerebral vessels] Onset: 4 03-17-2024 Chronic Coagulation and hemorrhagic disorders (3 sources) Thrombocytopenic disorder; 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: [Thrombocytopenia, unspecified] Onset: 3 11-11-2012 Chronic Conduction disorders (1 source) Atrioventricular block, first degree; 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: [ATRIOVENTRICULAR BLOCK FIRST DEGREE] Onset: 3 Chronic Coronary atherosclerosis and other heart disease (20 sources) Coronary arteriosclerosis; 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: [Atherosclerotic heart disease of [place] coronary artery without angina pectoris] Onset: 4 05-20-2014 Chronic Deficiency and other anemia (11 sources) Other pancytopenia; 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: [Other pancytopenia] Onset: 2 Chronic Deficiency and other anemia (16 sources) Pancytopenia; 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: [Other pancytopenia] 12-14-2023 Chronic [...] hypercholesterolemia, unspecified] Onset: 3 Chronic Epilepsy; convulsions (10 sources) Epilepsy; 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: [Epilepsy, unspecified, not intractable, without status epilepticus] Onset: 2 12-21-2011 Chronic Epilepsy; convulsions (4 sources) Seizure disorder; 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: [Seizure] 01-08-2019 Episodic Esophageal disorders (1 source) Gastro-esophageal [...] Chronic Inflammatory conditions of male genital organs (4 sources) Acute prostatitis; 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: [Acute prostatitis] 02-26-2024 Episodic Miscellaneous mental health disorders (3 sources) Mental disorder; 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: [Mental disorder, not otherwise specified] Onset: 4 03-17-2024 Chronic Nonspecific chest pain (6 sources) Precordial pain; 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: [Chest pain, unspecified] Onset: 2 Episodic Other aftercare (16 sources) Long-term current use of insulin; 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: [halfway (current) use of insulin] 12-14-2023 Episodic Other aftercare (6 sources) halfway (current) use of insulin; 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: [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 CURRENT 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 OF INSULIN] Onset: 3 Episodic Other aftercare (1 source) Other director long term care (current) drug therapy; 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: [[facility] CURRENT DRUG THERAPY] Onset: 3 Episodic Other [...] (1 source) Hydronephrosis due to ureteral obstruction 04-03-2019 Episodic Other gastrointestinal disorders (1 source) Splenomegaly; 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: [Splenomegaly, not elsewhere classified] Episodic Other nervous system disorders (1 source) Metabolic encephalopathy; 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: [METABOLIC ENCEPHALOPATHY] Onset: 2 Chronic Other screening for suspected conditions (not mental disorders or infectious disease) (4 sources) Blood chemistry abnormal; 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: [Abnormal finding of blood chemistry, unspecified] Onset: 4 Episodic Phlebitis; thrombophlebitis and thromboembolism (1 source) Personal history of other venous thrombosis and embolism; 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: [PERS HX OTH VENOUS THROMBOSIS AND EMBO] Onset: 3 Episodic Pulmonary heart disease (3 sources) Pulmonary embolism; 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: [Other pulmonary embolism without acute cor pulmonale] Onset: 4 05-20-2014 Episodic Residual codes; unclassified (17 sources) Obstructive sleep apnea syndrome; 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: [Obstructive sleep apnea (adult) (pediatric)] Onset: 4 03-17-2024 Chronic Residual codes; unclassified (3 sources) Obstructive sleep apnea (adult) (pediatric) Chronic Residual codes; unclassified (1 source) Sleep apnea 01-08-2019 Chronic Residual codes; unclassified (3 sources) Hypersomnia; 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: [Hypersomnia, unspecified] 03-17-2024 Chronic Residual codes; unclassified (3 sources) Periodic limb movement disorder; 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: [Periodic limb movement disorder] Onset: 4 03-17-2024 Chronic Residual codes; unclassified (1 source) Memory impairment 01-08-2019 Episodic Residual codes; unclassified (1 source) Acquired absence of other specified parts of digestive tract; 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: [ACQ ABSENCE OTH PART DIGESTV TRACT] Onset: 3 Episodic Residual codes; unclassified (3 sources) Insomnia; 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: [Insomnia, unspecified] 03-17-2024 Episodic Screening and history of mental health and substance abuse codes (1 source) Personal history of nicotine dependence; 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: [PERSONAL HISTORY OF NICOTINE DEPEND] Onset: 3 Episodic Superficial injury; contusion (2 sources) Contusion of chest; 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: [Contusion of unspecified front wall of thorax, initial encounter] 09-10-2024 Episodic Syncope (4 sources) Syncope and collapse; 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: [SYNCOPE AND COLLAPSE] Onset: 2 Episodic Unclassified (1 source) CONTACT W/AND (SUSP) EXPOS COVID-19; 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: [CONTACT W/AND (SUSP) EXPOS COVID-19] Onset: 3 Unclassified (1 source) Colon Cancer Screening Onset: 4 Viral infection (5 sources) COVID-19; 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: [COVID-19] Onset: 2 Past or Other Problems Problem Classification Problem Date Documented Da te Episodic/Chronic Cancer of rectum and anus (3 sources) Personal history of other malignant neoplasm of rectum, rectosigmoid junction, and anus; 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: [History of malignant neoplasm of rectum] Onset: 06-19-2024 07-09-2024 Episodic Coronary atherosclerosis and other heart disease (1 source) Presence of aortocoronary bypass graft; 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: [PRESENCE AORTOCORONARY BYPASS GRAFT] Onset: 05-09-2022 Episodic Immunizations and screening for infectious disease (1 source) Encounter for immunization; 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: [ENCOUNTER FOR IMMUNIZATION] Onset: 05-09-2022 Episodic Other aftercare (1 source) halfway (current) use of aspirin; 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: [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 CURRENT USE OF ASPIRIN] Onset: 05-09-2022 Episodic Other and unspecified benign neoplasm (3 sources) Hemangioma; 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: [Hemangioma unspecified site] Onset: 03-17-2024 03-17-2024 Episodic Other gastrointestinal disorders (1 source) Urgent desire for stool; 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: [Fecal urgency] 06-19-2024 Episodic Other lower respiratory disease (1 source) Dyspnea, unspecified; 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: [DYSPNEA UNSPECIFIED] Onset: 03-30-2022 Episodic Other lower respiratory disease (1 source) Shortness of breath; 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: [SHORTNESS OF BREATH] Onset: 02-20-2022 Episodic Other nervous system disorders (5 sources) Tremor, unspecified; 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: [TREMOR UNSPECIFIED] Onset: 02-15-2022 Episodic Other nervous system disorders (3 sources) Tremor; 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: [Tremor, unspecified] Onset: 03-17-2024 03-17-2024 Episodic Other nervous system disorders (3 sources) Skin sensation disturbance; 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: [Unspecified disturbances of skin sensation] Onset: 03-17-2024 03-17-2024 Episodic Other nervous system disorders (3 sources) Paresthesia; 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: [Paresthesia of skin] Onset: 03-17-2024 03-17-2024 Episodic Residual codes; unclassified (3 sources) Disorientation, unspecified; 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: [DISORIENTATION UNSPECIFIED] Onset: 05-03-2022 Episodic Residual codes; unclassified (3 sources) Amnesia; 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: [Other amnesia] Onset: 03-17-2024 03-17-2024 Episodic Unclassified (1 source) Home continuous positive airway pressure unit (physical object) 01-08-2019 Unclassified (1 source) Long-term current use of insulin 01-08-2019 Urinary tract infections (1 source) Urinary tract infection, site not specified; 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: [UTI SITE NOT SPECIFIED] Onset: 05-09-2022 Episodic Results Test Name Value Interpretation Reference Range Facility No Panel Informationon 08-04 Oxcarbazepine Level 39 ug/mL Abnormal [facility] Comment on above: This test was develo ped and its performance characteristicsdetermined by [facility]. It has not been cleared orapproved by the Food and Drug Administration. Detection Limit = 1Performed at: [facility] [id number] Director: Natacha Burdick MD, Phone: [phone] Glucose 1 houron 07-29-2024 [facility] Pathology Request for Lab Co rpon 07-09-2024 Pathology Request for Lab Titi Normal [facility] Comment on above: Order Comment: PATHO LOGY GI SPECIMEN Result Comment: See report. Scanned copy available in EMR. PERFORMED BY: [place] [id number] PATHOLOGIST [employer] DIVER RONA GAMEZ M.D. Performed By: #### P ATH TO [facility] #### [address] Surgical PathologyOrdered By : Nay Thacker on 07-09-2024 [facility] Laboratory - Chemistry and C hemistry - challengeon 06-28-2024 Bilirubin Ql (U) Negative NEGATIVE [facility] Glucose (U) [Mass/Vol] Negative NEGATIVE [facility] Ketones Ql (U) Negative NEGATIVE [facility] pH (U) 5.5 [pH] 5.0-9.0 [facility] Specific gravity (U) [Rel density] 1.025 1.005-1.02 5 [facility] Urobilinogen Qn (U) 0.2 {Jun'U}/dL 0.2-1.0 [facility] Laboratory - Specimen inform ationon 06-28-2024 Appearance (U) CLEAR CLEAR [facility] Color (U) LT. YELLOW YELLOW [facility] Laboratory - Urinalysison Leukocyte esterase Test strip Ql (U) SMALL Abnormal NEGATIVE [facility] Mucus Ql (Urine sed) NONE SEEN NONE SEEN [facility] Nitrite Ql (U) Positive Abnormal NEGATIVE [facility] Protein Ql (U) 100 mg/dL Abnormal NEG/TRACE [facility] No Panel Informationon 06-28 Urine Bacteria MODERATE #/HPF Abnormal NONE SEEN [facility] Urine Occult Blood Negative NEGATIVE [facility] Urine Other Casts NONE SEEN #/LPF NONE SEEN [facility] Urine Other Crystals None Seen #/HPF None Seen [facility] Urine RBC 0-2 #/HPF 0-2 [facility] Urine Squamous Epithelial Cells RARE #/LPF NONE/RARE [facility] Urine WBC 10-20 #/HPF Abnormal NONE SEEN [facility] Basophils/100 WBC Manual cnt (Bld)on 06-27-2024 Basophils/100 WBC (Bld) 0.0 % Low 0.2-2.0 F [facility] Cholesterol in LDL Calc [Mas s/Vol]on 06-27-2024 Cholesterol in LDL [Mass/Vol] 43.0 mg/dL [facility] Comment on above: <100 mg/dl [id number] 0-129 mg/dl NEAR OR ABOVE [id number] mg/dl BORDERLINE [id number] mg/dl HIGH>190 mg/dl VERY HIGH Cholesterol in VLDL Calc [Ma ss/Vol]on 06-27-2024 Cholesterol in VLDL [Mass/Vol] 18.0 mg/dL [facility] Eosinophils/100 WBC Manual c nt (Bld)on 06-27-2024 Eosinophils/100 WBC (Bld) 0.0 % Low 0.9-7.0 [facility] Erythrocyte distribution wid th Auto (RBC) [Ratio]on 06-27-2024 Erythrocyte distribution width (RBC) [Ratio] 15.2 % High 11.0-15.0 [facility] Estimated glomerular filtrat ion rate (GFR) non- Americanon 06-27-2024 GFR/1.73 sq M.predicted among non-blacks MDRD (S/P/Bld) [Vol rate/Area] mL/min/{1.73_m2} >=60 [facility] Globulin Calc (S) [Mass/Vol] on 06-27-2024 Globulin (S) [Mass/Vol] 2.8 g/dL F [facility] Glucose mean value [Mass/vol ume] in Blood Estimated from glycated hemoglobinon 06-27-2024 Average glucose Estimated from glycated hemoglobin (Bld) [Mass/Vol] 85 mg/dL [facility] Hematocrit Auto (Bld) [Volum e fraction]on 06-27-2024 Hematocrit (Bld) [Volume fraction] 28.8 % Low 42.0-54.0 [facility] Hemoglobin [Mass/volume] in Bloodon 06-27-2024 Hemoglobin (Bld) [Mass/Vol] 10.0 g/dL Low 14.0-18.0 [facility] Laboratory - Chemistry and C hemistry - challengeon 06-27-2024 Albumin [Mass/Vol] 3.7 g/dL 3.4-5.0 [facility] ALP [Catalytic activity/Vol] 92 U/L 46-116 [facility] ALT [Catalytic activity/Vol] 48 U/L 16-63 [facility] AST [Catalytic activity/Vol] 24 U/L 15-37 [facility] Bilirubin [Mass/Vol] 0.7 mg/dL 0.2-1.0 [facility] Calcium [Mass/Vol] 8.8 mg/dL 8.5-10.1 [facility] Chloride [Moles/Vol] 103 mmol/L 98-107 [facility] Cholesterol [Mass/Vol] 133 mg/dL <=200 [facility] Cholesterol in HDL [Mass/Vol] 72 mg/dL High 40-60 [facility] Comment on above: > or =60 mg/dl - LOW CARDIOVASCULAR RISK<40 mg/dl - HIGH CARDIOVASCULAR RISK CO2 [Moles/Vol] 33.1 mmol/L High 21.0-32.0 [facility] Creatinine [Mass/Vol] 1.10 mg/dL 0.70-1.30 [facility] GFR/1.73 sq M.predicted MDRD (S/P/Bld) [Vol rate/Area] mL/min/{1.73_m2} >=60 [facility] Glucose [Mass/Vol] 175 mg/dL High 74-106 [facility] Potassium [Moles/Vol] 4.1 mmol/L 3.5-5.1 [facility] Protein [Mass/Vol] 6.5 g/dL 6.4-8.2 [facility] Sodium [Moles/Vol] 140 mmol/L 136-145 [facility] Triglyceride [Mass/Vol] 90 mg/dL <=150 F [facility] Urea nitrogen [Mass/Vol] 28.0 mg/dL High 7.0-18.0 [facility] Urea nitrogen/Creatinine [Mass ratio] 25.5 mg/mg [facility] Laboratory - Hematology and Cell countson 06-27-2024 HbA1c (Bld) [Mass fraction] 4.6 % 4.5-6.2 [facility] Comment on above: ADA RECOMMENDED LIMI T 4.0 - 6.0ADA THERAPEUTIC TARGET < 7.0ACTION SUGGESTED> 7.0 Lymphocytes/100 WBC (Bld) 18.0 % Low 20.5-60.0 [facility] Monocytes/100 WBC (Bld) 10.0 % 1.7-12.0 F [facility] Leukocytes [#/volume] correc karina for nucleated erythrocytes in Blood by Automated counon 06-27-2024 WBC corrected for nucl RBC Auto (Bld) [#/Vol] 3.1 10 3/uL Low 4.0-11.0 [facility] MCH Auto (RBC) [Entitic mass ]on 06-27-2024 MCH (RBC) [Entitic mass] 34.4 pg High 25.9-34.0 [facility] MCHC Auto (RBC) [Mass/Vol]on 06-27-2024 MCHC (RBC) [Mass/Vol] 34.7 g/dL 29.9-35.2 [facility] MCV Auto (RBC) [Entitic vol] on 06-27-2024 MCV (RBC) [Entitic vol] 99.0 fL High 80.0-94.0 F [facility] No Panel Informationon 06-27 Absolute Basophils (Manual) 0.00 10 3/uL 0.00-0.10 [facility] Eosinophils # (Manual) 0.00 10 3/uL 0.00-0.70 [facility] Lymphocytes # (Manual) 0.55 10 3/uL Low 1.20-3.80 [facility] Monocytes # (Manual) 0.31 10 3/uL 0.30-0.80 [facility] Segmented Neutrophils # (Manual) 2.23 10 3/uL 1.4-6.5 [facility] Platelet mean volume Auto (B ld) [Entitic vol]on 06-27-2024 Platelet mean volume (Bld) [Entitic vol] 10.3 fL 9.5-13.5 [facility] Platelets Auto (Bld) [#/Vol] on 06-27-2024 Platelets (Bld) [#/Vol] 86 10 3/uL Low 150-450 F [facility] RBC Auto (Bld) [#/Vol]on RBC (Bld) [#/Vol] 2.91 10 6/uL Low 4.70-6.10 [facility] Segmented neutrophils/100 WB C Manual cnt (Bld)on 06-27-2024 Segmented neutrophils/100 WBC (Bld) 72.0 % 43.0-75.0 [facility] Serum or plasma albumin/glob ulin mass ratioon 06-27-2024 Albumin/Globulin [Mass ratio] 1.3 {ratio} [facility] Serum or plasma anion gap de terminationon 06-27-2024 Anion gap [Moles/Vol] 8.0 mmol/L [facility] Serum or plasma total choles terol/high density lipoprotein (HDL) cholesterol mass neva 06-27-2024 Cholesterol.total/Ruthann sterol in HDL [Mass ratio] 1.8 {ratio} [facility] Comment on above: 3.3 - 4.4 LOW RISK4. 4 - 7.1 AVERAGE RISK7.1 - 11.0 MODERATE RISK>11.0 HIGH RISK Basophils Auto (Bld) [#/Vol] on 02-15-2024 Basophils (Bld) [#/Vol] 0.0 10 3/uL 0.0-0.1 [facility] Basophils/100 WBC Auto (Bld) on 02-15-2024 Basophils/100 WBC (Bld) 0.2 % 0.2-2.0 F [facility] Eosinophils/100 WBC Auto (Bl d)on 02-15-2024 Eosinophils/100 WBC (Bld) 0.0 % 0.9-7.0 [facility] Erythrocyte distribution wid th Auto (RBC) [Ratio]on 02-15-2024 Erythrocyte distribution width (RBC) [Ratio] 15.2 % 11.0-15.0 [facility] Estimated glomerular filtrat ion rate (GFR) non- Americanon 02-15-2024 GFR/1.73 sq M.predicted among non-blacks MDRD (S/P/Bld) [Vol rate/Area] mL/min/{1.73_m2} >=60 [facility] Globulin Calc (S) [Mass/Vol] on 02-15-2024 Globulin (S) [Mass/Vol] 3.1 g/dL F [facility] Hematocrit Auto (Bld) [Volum e fraction]on 02-15-2024 Hematocrit (Bld) [Volume fraction] 29.3 % 42.0-54.0 [facility] Hemoglobin [Mass/volume] in Bloodon 02-15-2024 Hemoglobin (Bld) [Mass/Vol] 9.7 g/dL 14.0-18.0 [facility] Laboratory - Chemistry and C hemistry - challengeon 02-15-2024 Albumin [Mass/Vol] 3.4 g/dL 3.4-5.0 [facility] ALP [Catalytic activity/Vol] 90 U/L 46-116 [facility] ALT [Catalytic activity/Vol] 31 U/L 16-63 [facility] AST [Catalytic activity/Vol] 28 U/L 15-37 [facility] Bilirubin [Mass/Vol] 0.5 mg/dL 0.2-1.0 [facility] Calcium [Mass/Vol] 9.1 mg/dL 8.5-10.1 [facility] Chloride [Moles/Vol] 107 mmol/L 98-107 [facility] CO2 [Moles/Vol] 28.2 mmol/L 21.0-32.0 [facility] Creatinine [Mass/Vol] 0.98 mg/dL 0.70-1.30 [facility] GFR/1.73 sq M.predicted MDRD (S/P/Bld) [Vol rate/Area] mL/min/{1.73_m2} >=60 [facility] Glucose [Mass/Vol] 184 mg/dL 74-106 [facility] Potassium [Moles/Vol] 3.6 mmol/L 3.5-5.1 [facility] Protein [Mass/Vol] 6.5 g/dL 6.4-8.2 [facility] Sodium [Moles/Vol] 144 mmol/L 136-145 [facility] Urea nitrogen [Mass/Vol] 24.0 mg/dL 7.0-18.0 [facility] Urea nitrogen/Creatinine [Mass ratio] 24.5 mg/mg [facility] Laboratory - Hematology and Cell countson 02-15-2024 Immature granulocytes/100 WBC (Bld) 0.6 % 0.0-0.5 [facility] Leukocytes [#/volume] correc karina for nucleated erythrocytes in Blood by Automated counon 02-15-2024 WBC corrected for nucl RBC Auto (Bld) [#/Vol] 4.7 10 3/uL 4.0-11.0 [facility] Lymphocytes Auto (Bld) [#/Vo l]on 02-15-2024 Lymphocytes (Bld) [#/Vol] 0.2 10 3/uL 1.2-3.8 [facility] Lymphocytes/100 WBC Auto (Bl d)on 02-15-2024 Lymphocytes/100 WBC (Bld) 5.1 % 20.5-60.0 [facility] MCH Auto (RBC) [Entitic mass ]on 02-15-2024 MCH (RBC) [Entitic mass] 33.3 pg 25.9-34.0 [facility] MCHC Auto (RBC) [Mass/Vol]on 02-15-2024 MCHC (RBC) [Mass/Vol] 33.1 g/dL 29.9-35.2 [facility] MCV Auto (RBC) [Entitic vol] on 02-15-2024 MCV (RBC) [Entitic vol] 100.7 fL 80.0-94.0 [facility] Monocytes Auto (Bld) [#/Vol] on 02-15-2024 Monocytes (Bld) [#/Vol] 0.3 10 3/uL 0.3-0.8 [facility] Monocytes/100 WBC Auto (Bld) on 02-15-2024 Monocytes/100 WBC (Bld) 7.2 % 1.7-12.0 [facility] Neutrophils Auto (Bld) [#/Vo l]on 02-15-2024 Neutrophils (Bld) [#/Vol] 4.1 10 3/uL 1.4-6.5 [facility] Neutrophils/100 WBC Auto (Bl d)on 02-15-2024 Neutrophils/100 WBC (Bld) 86.9 % 43.0-75.0 [facility] No Panel Informationon 02-14 Eosinophils # (Auto) 0.0 10 3/uL 0.0-0.7 [facility] Immature Granulocyte # (Auto) 0.03 10 3/uL 0.00-0.03 [facility] Platelet mean volume Auto (B ld) [Entitic vol]on 02-15-2024 Platelet mean volume (Bld) [Entitic vol] 10.6 fL 9.5-13.5 [facility] Platelets Auto (Bld) [#/Vol] on 02-15-2024 Platelets (Bld) [#/Vol] 60 10 3/uL 150-450 [facility] RBC Auto (Bld) [#/Vol]on RBC (Bld) [#/Vol] 2.91 10 6/uL 4.70-6.10 [facility] Serum or plasma albumin/glob ulin mass ratioon 02-15-2024 Albumin/Globulin [Mass ratio] 1.1 {ratio} [facility] Serum or plasma anion gap de terminationon 02-15-2024 Anion gap [Moles/Vol] 12.4 mmol/L [facility] Basophils/100 WBC Manual cnt (Bld)on 02-14-2024 Basophils/100 WBC (Bld) 1.0 % 0.2-2.0 F [facility] Casts typing in urine sedime nt by light microscopyon 02-14-2024 Casts LM Nom (Urine sed) NONE SEEN #/LPF NONE SEEN [facility] Eosinophils/100 WBC Manual c nt (Bld)on 02-14-2024 Eosinophils/100 WBC (Bld) 0.0 % 0.9-7.0 [facility] Erythrocyte distribution wid th Auto (RBC) [Ratio]on 02-14-2024 Erythrocyte distribution width (RBC) [Ratio] 15.0 % 11.0-15.0 [facility] Estimated glomerular filtrat ion rate (GFR) non- Americanon 02-14-2024 GFR/1.73 sq M.predicted among non-blacks MDRD (S/P/Bld) [Vol rate/Area] mL/min/{1.73_m2} >=60 [facility] Hematocrit Auto (Bld) [Volum e fraction]on 02-14-2024 Hematocrit (Bld) [Volume fraction] 28.2 % 42.0-54.0 [facility] Hemoglobin [Mass/volume] in Bloodon 02-14-2024 Hemoglobin (Bld) [Mass/Vol] 9.6 g/dL 14.0-18.0 [facility] Laboratory - Chemistry and C hemistry - challengeon 02-14-2024 Bilirubin Ql (U) Negative NEGATIVE [facility] Glucose (U) [Mass/Vol] 250 mg/dL NEGATIVE [facility] Ketones Ql (U) Negative NEGATIVE [facility] pH (U) 5.5 [pH] 5.0-9.0 [facility] Specific gravity (U) [Rel density] 1.025 1.005-1.02 5 [facility] Urobilinogen Qn (U) 0.2 {Jun'U}/dL 0.2-1.0 [facility] Calcium [Mass/Vol] 8.7 mg/dL 8.5-10.1 [facility] Chloride [Moles/Vol] 106 mmol/L 98-107 [facility] CO2 [Moles/Vol] 30.0 mmol/L 21.0-32.0 [facility] Creatinine [Mass/Vol] 1.12 mg/dL 0.70-1.30 [facility] GFR/1.73 sq M.predicted MDRD (S/P/Bld) [Vol rate/Area] mL/min/{1.73_m2} >=60 [facility] Glucose [Mass/Vol] 251 mg/dL 74-106 [facility] Potassium [Moles/Vol] 4.1 mmol/L 3.5-5.1 [facility] Sodium [Moles/Vol] 142 mmol/L 136-145 [facility] Urea nitrogen [Mass/Vol] 29.0 mg/dL 7.0-18.0 [facility] Urea nitrogen/Creatinine [Mass ratio] 25.9 mg/mg [facility] Laboratory - Hematology and Cell countson 02-14-2024 Band form neutrophils/100 WBC (Bld) 2.0 % 0-5 [facility] Lymphocytes/100 WBC (Bld) 1.0 % 20.5-60.0 [facility] Monocytes/100 WBC (Bld) 4.0 % 1.7-12.0 [facility] Laboratory - Microbiology an d Antimicrobial susceptibilityOrdered By: Bj Ortega on 02-14-2024 Bacteria identified Cx Nom (U) [facility] Laboratory - Specimen inform ationon 02-14-2024 Appearance (U) CLEAR CLEAR [facility] Color (U) YELLOW YELLOW [facility] Laboratory - Urinalysison Amorphous sediment LM Ql (Urine sed) FEW [facility] Leukocyte esterase Test strip Ql (U) Negative NEGATIVE [facility] Nitrite Ql (U) Positive NEGATIVE [facility] Protein Ql (U) >=300 mg/dL NEG/TRACE [facility] Leukocytes [#/volume] correc karina for nucleated erythrocytes in Blood by Automated counon 02-14-2024 WBC corrected for nucl RBC Auto (Bld) [#/Vol] 4.5 10 3/uL 4.0-11.0 [facility] MCH Auto (RBC) [Entitic mass ]on 02-14-2024 MCH (RBC) [Entitic mass] 34.2 pg 25.9-34.0 [facility] MCHC Auto (RBC) [Mass/Vol]on 02-14-2024 MCHC (RBC) [Mass/Vol] 34.0 g/dL 29.9-35.2 [facility] MCV Auto (RBC) [Entitic vol] on 02-14-2024 MCV (RBC) [Entitic vol] 100.4 fL 80.0-94.0 [facility] Mucus LM Ql (Urine sed)on Mucus Ql (Urine sed) NONE SEEN NONE SEEN [facility] No Panel Informationon 02-13 Urine Bacteria LARGE #/HPF NONE SEEN [facility] Urine Culture Reflexed YES [facility] Urine Occult Blood LARGE NEGATIVE [facility] Urine Other Crystals Seen #/HPF None Seen [facility] Urine RBC 0-2 #/HPF 0-2 [facility] Urine Squamous Epithelial Cells RARE #/LPF NONE/RARE [facility] Urine WBC 2-5 #/HPF NONE SEEN [facility] Absolute Basophils (Manual) 0.04 10 3/uL 0.00-0.10 [facility] Band Neutrophils # (Manual) 0.1 10 3/uL 0.0-0.3 [facility] Eosinophils # (Manual) 0.00 10 3/uL 0.00-0.70 [facility] Lymphocytes # (Manual) 0.04 10 3/uL 1.20-3.80 [facility] Monocytes # (Manual) 0.18 10 3/uL 0.30-0.80 [facility] Segmented Neutrophils # (Manual) 4.14 10 3/uL 1.4-6.5 [facility] Platelet mean volume Auto (B ld) [Entitic vol]on 02-14-2024 Platelet mean volume (Bld) [Entitic vol] 10.4 fL 9.5-13.5 [facility] Platelets Auto (Bld) [#/Vol] on 02-14-2024 Platelets (Bld) [#/Vol] 65 10 3/uL 150-450 [facility] RBC Auto (Bld) [#/Vol]on RBC (Bld) [#/Vol] 2.81 10 6/uL 4.70-6.10 [facility] Segmented neutrophils/100 WB C Manual cnt (Bld)on 02-14-2024 Segmented neutrophils/100 WBC (Bld) 92.0 % [facility] Serum or plasma anion gap de terminationon 02-14-2024 Anion gap [Moles/Vol] 10.1 mmol/L [facility] Screenson 12-12-2022 Screens [id number]:127 Normal [facility] Ambulatory Visit Summaryon 0 12-11-2022 Ambulatory [...] Following Appointments Follow Up with YEFRI HUIZAR, ROSALINDA Mckeon When: Only if needed Comments: PRN Where: [facility] [place] [address]- Medications What How Much When Instructions Unchanged [...] and fortified (more content not included)... Normal [facility] Lab Reportson 12-11-2022 Lab Reports [id number]:127 [facility] Patient Educationon 12-12-19 Patient Education Urology Dietary [...] Rhubarb. ? Beets. ? Potato chips and kyrgyz fries. ? Nuts. ? If you regularly take a diuretic medicine, make sure to eat at least 1?2 fruits or vegetables high in potassium each day. These include: ? Avocado. ? Banana. ? [place], prune, carrot, or tomato juice. ? Baked [...] and other foods Seasoning blends with salt. Salevita bernardo (more content not included)... Normal [facility] RAD - MISCon 12-11-2022 [facility] [id number]:127 Normal [facility] Urology Office/Clinic Noteon 12-11-2022 Urology Office/Clinic [...] HUIZAR, Dominic Handley, URL Only if needed [address] [place] [address]- Additional Instructions: PRN Patient Education Dietary Guidelines [...] Cancer o (more content not included)... Normal [facility] Comment on above: Result Comment: Elec [...] BLANCO Date: 2022-12-09 12:10 Normal [facility] OXCARBAZEPINE / TRILEPTALon 11-10-2022 Oxcarbazepine 40 ug/mL Critically high 10-35 [facility] Comment on above: Result Comment: This test was developed and its performance characteristics determined by [facility]. It has not been cleared or approved by the Food and Drug Administration. Detection Limit = 1 Performed By: #### B MP #### [facility] [address] [place] [address] Dr. Kelly Mukherjee CBC AUTO DIFFon 10-05-2022 BASO # 0.0 103/ul Normal 0.0-0.1 [facility] Comment on above: Performed By: #### B MP #### [facility] [address] [place] [address] Dr. Kelly Mukherjee Basophils/100 WBC (Bld) 0.3 % Normal 0.2-2.0 [facility] Comment on above: Performed By: #### B MP #### [facility] [address] [place] [address] Dr. Kelly Mukherjee EO # 0.1 103/ul Normal 0.0-0.7 [facility] Comment on above: Performed By: #### B MP #### [facility] [address] [place] [address] Dr. Kelly Mukherjee Eosinophils/100 WBC (Bld) 2.2 % Normal 0.9-7.0 [facility] Comment on above: Performed By: #### B MP #### [facility] [address] [place] [address] Dr. Kelly Mukherjee Erythrocyte distribution width (RBC) [Ratio] 14.8 % Normal 11.0-15.0 [facility] Comment on above: Performed By: #### B MP #### [facility] [address] [place] [address] Dr. Kelly Mukherjee Hematocrit (Bld) [Volume fraction] 29.5 % Critically low 42.0-54.0 [facility] Comment on above: Performed By: #### B MP #### [facility] [address] [place] [address] Dr. Kelly Mukherjee Hemoglobin (Bld) [Mass/Vol] 10.3 g/dL Critically low 14.0-18.0 [facility] Comment on above: Performed By: #### B MP #### [facility] [address] [place] [address] Dr. Kelly Mukherjee IG # 0.01 10e3/ul Normal 0.00-0.03 [facility] Comment on above: Performed By: #### B MP #### [facility] [address] [place] [address] Dr. Kelly Mukherjee IG % 0.3 % Normal 0.0-0.5 [facility] Comment on above: Performed By: #### B MP #### [facility] [address] [place] [address] Dr. Kelly Mukherjee LYMPH # 0.5 103/ul Critically low 1.2-3.8 [facility] Comment on above: Performed By: #### B MP #### [facility] [address] [place] [address] Dr. Kelly Mukherjee Lymphocytes/100 WBC (Bld) 16.0 % Critically low 20.5-60.0 [facility] Comment on above: Performed By: #### B MP #### [facility] [address] [place] [address] Dr. Kelly Mukherjee MANUAL DIFF REQ NO Normal [facility] Comment on above: Performed By: #### B MP #### [facility] [address] [place] [address] Dr. Kelly Mukherjee MCH (RBC) [Entitic mass] 34.1 pg Critically high 25.9-34.0 [facility] Comment on above: Performed By: #### B MP #### [facility] [address] [place] [address] Dr. Kelly Mukherjee MCHC (RBC) [Mass/Vol] 34.9 g/dL Normal 29.9-35.2 [facility] Comment on above: Performed By: #### B MP #### [facility] [address] [place] [address] Dr. Kelly Mukherjee MCV (RBC) [Entitic vol] 97.7 fL Critically high 80.0-94 .0 [facility] Comment on above: Performed By: #### B MP #### [facility] [address] [place] [address] Dr. Kelly Mukherjee MONO # 0.2 103/ul Critically low 0.3-0.8 [facility] Comment on above: Performed By: #### B MP #### [facility] [address] [place] [address] Dr. Kelly Mukherjee Monocytes/100 WBC (Bld) 5.8 % Normal 1.7-12.0 [facility] Comment on above: Performed By: #### B MP #### [facility] [address] [place] [address] Dr. Kelly Mukherjee NEUT # 2.4 103/ul Normal 1.4-6.5 [facility] Comment on above: Performed By: #### B MP #### [facility] [address] [place] [address] Dr. Kelly Mukherjee Neutrophils/100 WBC (Bld) 75.4 % Critically high 43.0-75.0 [facility] Comment on above: Performed By: #### B MP #### [facility] [address] [place] [address] Dr. Kelly Mukherjee Platelet mean volume (Bld) [Entitic vol] 10.1 fL Normal 9.5-13.5 [facility] Comment on above: Performed By: #### B MP #### [facility] [address] [place] [address] Dr. Kelly Mukherjee PLT 63 103/ul Critically low 150-450 [facility] Comment on above: Performed By: #### B MP #### [facility] [address] [place] [address] Dr. Kelly Mukherjee RBC 3.02 106/ul Critically low 4.70-6.10 [facility] Comment on above: Performed By: #### B MP #### [facility] [address] [place] [address] Dr. Kelly Mukherjee WBC 3.1 103/ul Critically low 4.0-11.0 [facility] Comment on above: Performed By: #### B MP #### [facility] [address] [place] [address] Dr. Kelly Mukherjee ER URINE PROFILEon 2 Bilirubin Ql (U) Negative Normal NEGATIVE [facility] Comment on above: Performed By: #### B MP #### [facility] [address] [address] [address] Kelly Mukherjee Clarity (U) CLEAR Normal CLEAR [facility] Comment on above: Performed By: #### B MP #### [facility] [address] [place] [address] Dr. Kelly Mukherjee Color (U) LT. YELLOW Normal YELLOW [facility] Comment on above: Performed By: #### B MP #### [facility] [address] [place] [address] Dr. Kelly Mukherjee ERUAHD A micrscopic examina tion will be performed if indicated. Normal [facility] Comment on above: Performed By: #### B MP #### [facility] [address] [place] [address] Dr. Kelly Mukherjee Glucose Ql (U) 250 mg/dl Abnormal NEGATIVE [facility] Comment on above: Performed By: #### B MP #### [facility] [address] [place] [address] Dr. Kelly Mukherjee Hemoglobin Ql (U) Negative Normal NEGATIVE [facility] Comment on above: Performed By: #### B MP #### [facility] [address] [place] [address] Dr. Kelly Mukherjee Ketones Ql (U) Negative Normal NEGATIVE [facility] Comment on above: Performed By: #### B MP #### [facility] [address] [place] [address] Dr. Kelly Mukherjee LEUKOCYTES Negative Normal NEGATIVE [facility] Comment on above: Performed By: #### B MP #### [facility] [address] [place] [address] Dr. Kelly Mukherjee Nitrite Ql (U) Negative Normal NEGATIVE [facility] Comment on above: Performed By: #### B MP #### [facility] [address] [place] [address] Dr. Kelly Mukherjee pH (U) 7.0 [pH] Normal 5-9 [facility] Comment on above: Performed By: #### B MP #### [facility] [address] [place] [address] Dr. Kelyl Mukherjee Protein (U) [Mass/Vol] 100 mg/dL Abnormal NEGAT NADER/ TRACE [facility] Comment on above: Performed By: #### B MP #### [facility] [address] [place] [address] Dr. Kelly Mukherjee SPEC GRAVITY 1.020 Normal 1.005-<=1. 025 [facility] Comment on above: Performed By: #### B MP #### [facility] [address] [place] [address] Dr. Kelly Mukherjee UR MICRO IND NOT INDICATED Normal [facility] Comment on above: Performed By: #### B MP #### [facility] [address] [place] [address] Dr. Kelly Mukherjee Urobilinogen Qn (U) 0.2 {Jun'U}/dL Normal 0.2 - 1. 0 [facility] Comment on above: Performed By: #### B MP #### [facility] [address] [place] [address] Dr. Kelly Mukherjee POINT OF CARE GLUCOSEon 09-08 Glucose [Mass/Vol] 253 mg/dL Critically high 74-106 [facility] Comment on above: Performed By: #### P OCGLUC #### [facility] [address] [place] [address] Dr. Kelly Mukherjee PROF CHEM 8 (BAS METB)on Anion gap [Moles/Vol] 8.5 mmol/L Normal [facility] Comment on above: Performed By: #### B MP #### [facility] [address] [place] [address] Dr. Kelly Mukherjee Calcium [Mass/Vol] 8.7 mg/dL Normal 8.5-10.1 [facility] Comment on above: Performed By: #### B MP #### [facility] [address] [place] [address] Dr. Kelly Mukherjee Chloride [Moles/Vol] 106 mmol/L Normal 98-107 [facility] Comment on above: Performed By: #### B MP #### [facility] [address] [address] [address] Kelly Mukherjee CO2 [Moles/Vol] 29.0 mmol/L Normal 21.0-32.0 [facility] Comment on above: Performed By: #### B MP #### [facility] [address] [address] [address] Kelly Mukherjee Creatinine [Mass/Vol] 0.84 mg/dL Normal 0.70-1.30 [facility] Comment on above: Performed By: #### B MP #### [facility] [address] [address] [address] Kelly Mukherjee EGFR-AF MOSOTHO >60 Normal >=60 [facility] Comment on above: Performed By: #### B MP #### [facility] [address] [place] [address] Dr. Kelly Mukherjee EGFR-NON AF MOSOTHO >60 Normal >=60 [facility] Comment on above: Performed By: #### B MP #### [facility] [address] [place] [address] Dr. Kelly Mukherjee Glucose [Mass/Vol] 119 mg/dL Critically high 74-106 [facility] Comment on above: Performed By: #### B MP #### [facility] [address] [place] [address] Dr. Kelly Mukherjee Potassium [Moles/Vol] 3.5 mmol/L Normal 3.5-5.1 [facility] Comment on above: Performed By: #### B MP #### [facility] [address] [place] [address] Dr. Kelly Mukherjee Sodium [Moles/Vol] 140 mmol/L Normal 136-145 [facility] Comment on above: Performed By: #### B MP #### [facility] [address] [place] [address] Dr. Kelly Mukherjee Urea nitrogen [Mass/Vol] 21.0 mg/dL Critically high 7.0-18.0 [facility] Comment on above: Performed By: #### B MP #### [facility] [address] [place] [address] Dr. Kelly Mukherjee Urea nitrogen/Creatinine [Mass ratio] 25.0 mg/mg Normal [facility] Comment on above: Performed By: #### B MP #### [facility] [address] [place] [address] Dr. Kelly Mukherjee CBC AUTO DIFFon 10-04-2022 BASO # 0.0 103/ul Normal 0.0-0.1 [facility] Comment on above: Performed By: #### P OCGLUC #### [facility] [address] [place] [address] Dr. Kelly Mukherjee Basophils/100 WBC (Bld) 0.2 % Normal 0.2-2.0 [facility] Comment on above: Performed By: #### P OCGLUC #### [facility] [address] [place] [address] Dr. Kelly Mukherjee EO # 0.0 103/ul Normal 0.0-0.7 [facility] Comment on above: Performed By: #### P OCGLUC #### [facility] [address] [place] [address] Dr. Kelly Mukherjee Eosinophils/100 WBC (Bld) 1.0 % Normal 0.9-7.0 [facility] Comment on above: Performed By: #### P OCGLUC #### [facility] [address] [place] [address] Dr. Kelly Mukherjee Erythrocyte distribution width (RBC) [Ratio] 15.1 % Critically high 11.0-15.0 [facility] Comment on above: Performed By: #### P OCGLUC #### [facility] [address] [place] [address] Dr. Kelly Mukherjee Hematocrit (Bld) [Volume fraction] 30.3 % Critically low 42.0-54.0 [facility] Comment on above: Performed By: #### P OCGLUC #### [facility] [address] [place] [address] Dr. Kelly Mukherjee Hemoglobin (Bld) [Mass/Vol] 10.7 g/dL Critically low 14.0-18.0 [facility] Comment on above: Performed By: #### P OCGLUC #### [facility] [address] [address] [address] Kelly Mukherjee IG # 0.01 10e3/ul Normal 0.00-0.03 [facility] Comment on above: Performed By: #### P OCGLUC #### [facility] [address] [address] [address] Kelly Mukherjee IG % 0.2 % Normal 0.0-0.5 [facility] Comment on above: Performed By: #### P OCGLUC #### [facility] [address] [address] [address] Klely Mukherjee LYMPH # 0.4 103/ul Critically low 1.2-3.8 [facility] Comment on above: Performed By: #### P OCGLUC #### [facility] [address] [place] [address] Dr. Kelly Mukherjee Lymphocytes/100 WBC (Bld) 8.9 % Critically low 20.5-60.0 [facility] Comment on above: Performed By: #### P OCGLUC #### [facility] [address] [place] [address] Dr. Kelly Mukherjee MANUAL DIFF REQ NO Normal [facility] Comment on above: Performed By: #### P OCGLUC #### [facility] [address] [place] [address] Dr. Kelly Mukherjee MCH (RBC) [Entitic mass] 34.1 pg Critically high 25.9-34.0 [facility] Comment on above: Performed By: #### P OCGLUC #### [facility] [address] [address] [address] Kelly Mukherjee MCHC (RBC) [Mass/Vol] 35.3 g/dL Critically high 29.9-35.2 [facility] Comment on above: Performed By: #### P OCGLUC #### [facility] [address] [place] [address] Dr. Kelly Mukherjee MCV (RBC) [Entitic vol] 96.5 fL Critically high 80.0-94 .0 [facility] Comment on above: Performed By: #### P OCGLUC #### [facility] [address] [address] [address] Kelly Mukherjee MONO # 0.2 103/ul Critically low 0.3-0.8 [facility] Comment on above: Performed By: #### P OCGLUC #### [facility] [address] [address] [address] Kelly Mukherjee Monocytes/100 WBC (Bld) 6.0 % Normal 1.7-12.0 [facility] Comment on above: Performed By: #### P OCGLUC #### [facility] [address] [address] [address] Kelly Mukherjee NEUT # 3.4 103/ul Normal 1.4-6.5 [facility] Comment on above: Performed By: #### P OCGLUC #### [facility] [address] [place] [address] Dr. Kelly Mukherjee Neutrophils/100 WBC (Bld) 83.7 % Critically high 43.0-75.0 [facility] Comment on above: Performed By: #### P OCGLUC #### [facility] [address] [place] [address] Dr. Kelly Mukherjee Platelet mean volume (Bld) [Entitic vol] 10.2 fL Normal 9.5-13.5 [facility] Comment on above: Performed By: #### P OCGLUC #### [facility] [address] [place] [address] Dr. Kelly Mukherjee PLT 76 103/ul Critically low 150-450 [facility] Comment on above: Performed By: #### P OCGLUC #### [facility] [address] [place] [address] Dr. Kelly Mukherjee RBC 3.14 106/ul Critically low 4.70-6.10 [facility] Comment on above: Performed By: #### P OCGLUC #### [facility] [address] [place] [address] Dr. Kelly Mukherjee WBC 4.0 103/ul Normal 4.0-11.0 [facility] Comment on above: Performed By: #### P OCGLUC #### [facility] [id number] Kelly Mukherjee CT HEAD WO CONon [...] SYLVESTER BARBOUR Date: 2022-10-04 15:34 Normal [facility]08 SARS-CoV-2 (COVID-19) RNA ABIMBOLA+probe Ql (Unsp spec) Not detected Normal NOT DETECTED [facility] Comment on above: Result Comment: When [...] for this test is supported by the [place] of [employer] and Human Service's declaration that [...] used). Performed By: #### C VDTBH #### [facility] [address] [place] [address] Dr. Kelly Mukherjee POINT OF CARE GLUCOSEon 12-2 Glucose [Mass/Vol] 134 mg/dL Critically high 74-106 [facility] Comment on above: Performed By: #### P OCGLUC #### [facility] [address] [place] [address] Dr. Kelly Mukherjee PROF CHEM 8 (BAS METB)on Anion gap [Moles/Vol] 12.9 mmol/L Normal [facility] Comment on above: Performed By: #### B MP #### [facility] [address] [place] [address] Dr. Kelly Mukherjee Calcium [Mass/Vol] 9.0 mg/dL Normal 8.5-10.1 [facility] Comment on above: Performed By: #### B MP #### [facility] [address] [place] [address] Dr. Kelly Mukherjee Chloride [Moles/Vol] 106 mmol/L Normal 98-107 [facility] Comment on above: Performed By: #### B MP #### [facility] [address] [place] [address] Dr. Kelly Mukherjee CO2 [Moles/Vol] 27.2 mmol/L Normal 21.0-32.0 [facility] Comment on above: Performed By: #### B MP #### [facility] [address] [place] [address] Dr. Kelly Mukherjee Creatinine [Mass/Vol] 0.98 mg/dL Normal 0.70-1.30 [facility] Comment on above: Performed By: #### B MP #### [facility] [address] [place] [address] Dr. Kelly Mukherjee EGFR-AF MOSOTHO >60 Normal >=60 [facility] Comment on above: Performed By: #### B MP #### [facility] [address] [address] [address] Kelly Mukherjee EGFR-NON AF MOSOTHO >60 Normal >=60 [facility] Comment on above: Performed By: #### B MP #### [facility] [address] [address] [address] Kelly Mukherjee Glucose [Mass/Vol] 146 mg/dL Critically high 74-106 [facility] Comment on above: Performed By: #### B MP #### [facility] [address] [address] [address] Kelly Mukherjee Potassium [Moles/Vol] 4.1 mmol/L Normal 3.5-5.1 [facility] Comment on above: Performed By: #### B MP #### [facility] [address] [address] [address] Kelly Mukherjee Sodium [Moles/Vol] 142 mmol/L Normal 136-145 [facility] Comment on above: Performed By: #### B MP #### [facility] [address] [address] [address] Kelly Mukherjee Urea nitrogen [Mass/Vol] 24.0 mg/dL Critically high 7.0-18.0 [facility] Comment on above: Performed By: #### B MP #### [facility] [address] [address] [address] Kelly Mukherjee Urea nitrogen/Creatinine [Mass ratio] 24.5 mg/mg Normal [facility] Comment on above: Performed By: #### B MP #### [facility] [address] [address] [address] Kelly Mukherjee PROTIMEon 10-04-2022 INR Coag (PPP) [Relative time] 1.06 {INR} Normal [facility] Comment on above: Performed By: #### C VDTB #### [facility] [address] [address] [address] Kelly Mukherjee INR GUIDELINES SEE BELOW Normal [facility] Comment on above: Result Comment: JULIANA RED INR: 2.0 - 3.0 CONDITIONS NOT LISTED BELOW 2.5 - 3.5 FOR PROSTHETIC HEART VALVE REPLACEMENT 2.5 - 3.5 RECURRENT THROMBOSIS Performed By: #### C VDTBH #### [facility] [address] [place] [address] Dr. Kelly Mukherjee PT Coag (PPP) [Time] 11.4 s Normal 9.0-11.6 [facility] Comment on above: Performed By: #### C VDTBH #### [facility] [address] [place] [address] Dr. Kelly Mukherjee PTTon 10-04-2022 aPTT Coag (Bld) [Time] 24.5 s Normal 22.3-36.2 [facility] Comment on above: Performed By: #### C VDTBH #### [facility] [address] [place] [address] Dr. Kelly Mukherjee TROPONIN, HIGH SENSITIVITYon 10-04-2022 HSTROP 7.1 pg/mL Normal 4.0-76.1 [facility] Comment on above: Result Comment: CUT- OFF POINTS HAVE BEEN ESTABLISHED BASED ON THE FOURTH UNIVERSAL DEFINITIONS OF MYOCARDIAL INFARCTION. THE UPPER REFERENCE LIMIT (URL) OF TROPONIN, DEFINED THE 99TH PERCENTILE OF cTnI DISTRIBUTION IN A REFERENCE POPULATION, HAS BEEN CONFIRMED THE DECISION THRESHOLD FOR [place] DIAGNOSIS. Performed By: #### C VDTBH #### [facility] [address] [place] [address] Dr. Kelly Mukherjee XR CHEST 1 Von 10-04-2022 XR CHEST 1 V EXAM: XR CHEST 1 V a t 1450 hours HISTORY: SHORTNESS OF BREATH COMPARISON: [...] SYLVESTER BARBOUR Date: 2022-10-04 15:31 Normal [facility] (Clean PET) BRIAN GOULD ([id number]) 1945 M Date Time Provider Department 09/01/22 [...] Fully Assessed Reason for Visit: Care Coordination [3491] Cmt: Lab Results Prescriptions as of 09/01/2022 - losartan (COZAAR) 50 mg tablet Take 50 mg by mouth once daily. - HYDROcodone-acetaminophen (NORCO) 5-325 mg per tablet - citalopram [...] Status:Closed by ROLANDO BOWEN on 09/01/22 Normal [facility] CBC W Auto Differential pane l (Bld)on 08-30-2022 Basophils (Bld) [#/Vol] 10*3/uL Normal <0.11 [facility] Comment on above: Order Comment: Speci men Type: BLOOD SPECIMEN Ordering Facility: [facility] Address: [address] [address] Performed By: #### 5 7021-8 #### [facility] CLIA [id number] [address] [place] [address] Basophils/100 WBC (Bld) 0.5 % Normal [facility] Comment on above: Order Comment: Speci men Type: BLOOD SPECIMEN Ordering Facility: [facility] Address: [address] [address] Performed By: #### 5 7021-8 #### [facility] CLIA [id number] [address] [place] [address] Differential cell count method Nom (Bld) Auto Normal [facility] Comment on above: Order Comment: Speci men Type: BLOOD SPECIMEN Ordering Facility: [facility] Address: [address] [address] Performed By: #### 5 7021-8 #### [facility] CLIA [id number] [address] [place] [address] Eosinophils (Bld) [#/Vol] 0.08 10*3/uL Normal <0.46 [facility] Comment on above: Order Comment: Speci men Type: BLOOD SPECIMEN Ordering Facility: [facility] Address: [address] [address] Performed By: #### 5 7021-8 #### [facility] CLIA [id number] [address] [place] [address] Eosinophils/100 WBC (Bld) 2.1 % Normal [facility] Comment on above: Order Comment: Speci men Type: BLOOD SPECIMEN Ordering Facility: [facility] Address: [address] [address] Performed By: #### 5 7021-8 #### [facility] CLIA [id number] [address] [place] [address] Erythrocyte distribution width (RBC) [Ratio] 15.9 % High 11.5-15.0 [facility] Comment on above: Order Comment: Speci men Type: BLOOD SPECIMEN Ordering Facility: [facility] Address: [address] [address] Performed By: #### 5 7021-8 #### [facility] CLIA [id number] [address] [place] [address] Hematocrit (Bld) [Volume fraction] 33.5 % Low 39.0-51.0 [facility] Comment on above: Order Comment: Speci men Type: BLOOD SPECIMEN Ordering Facility: [facility] Address: [address] [address] Performed By: #### 5 7021-8 #### [facility] CLIA [id number] [address] [place] [address] Hemoglobin (Bld) [Mass/Vol] 11.4 g/dL Low 13.0-17.0 [facility] Comment on above: Order Comment: Speci men Type: BLOOD SPECIMEN Ordering Facility: [facility] Address: [address] [address] Performed By: #### 5 7021-8 #### [facility] CLIA [id number] [address] [place] [address] Immature granulocytes (Bld) [#/Vol] 10*3/uL Normal <0.10 [facility] Comment on above: Order Comment: Speci men Type: BLOOD SPECIMEN Ordering Facility: [facility] Address: [address] [address] Performed By: #### 5 7021-8 #### [facility] CLIA [id number] [address] [place] [address]26[address] Immature granulocytes/100 WBC (Bld) 0.3 % Normal [facility] Comment on above: Order Comment: Speci men Type: BLOOD SPECIMEN Ordering Facility: [facility] Address: [address] [address] Performed By: #### 5 7021-8 #### [facility] CLIA [id number] [address] [place] [address] Lymphocytes (Bld) [#/Vol] 0.60 10*3/uL Low 1.00-4.00 [facility] Comment on above: Order Comment: Speci men Type: BLOOD SPECIMEN Ordering Facility: [facility] Address: [address] [address] Performed By: #### 5 7021-8 #### [facility] CLIA [id number] [address] [place] [address] Lymphocytes/100 WBC (Bld) 16.1 % Normal [facility] Comment on above: Order Comment: Speci men Type: BLOOD SPECIMEN Ordering Facility: [facility] Address: [address] [address] Performed By: #### 5 7021-8 #### [facility] CLIA [id number] [address] [place] [address] MCH (RBC) [Entitic mass] 33.3 pg Normal 26.0-34.0 [facility] Comment on above: Order Comment: Speci men Type: BLOOD SPECIMEN Ordering Facility: [facility] Address: [address] [place] [address] Performed By: #### 5 7021-8 #### [facility] CLIA [id number] [address] [place] [address] MCHC (RBC) [Mass/Vol] 34.0 g/dL Normal 30.5-36.0 [facility] Comment on above: Order Comment: Speci men Type: BLOOD SPECIMEN Ordering Facility: [facility] Address: [address] [place] [address] Performed By: #### 5 7021-8 #### [facility] CLIA [id number] [address] [place] [address] MCV (RBC) [Entitic vol] 98.0 fL Normal 80.0-100.0 [facility] Comment on above: Order Comment: Speci men Type: BLOOD SPECIMEN Ordering Facility: [facility] Address: [address] [place] [address] Performed By: #### 5 7021-8 #### [facility] CLIA [id number] [address] [place] [address] Monocytes (Bld) [#/Vol] 0.26 10*3/uL Normal <0.87 [facility] Comment on above: Order Comment: Speci men Type: BLOOD SPECIMEN Ordering Facility: [facility] Address: [address] [place] [address] Performed By: #### 5 7021-8 #### [facility] CLIA [id number] [address] [place] [address] Monocytes/100 WBC (Bld) 7.0 % Normal [facility] Comment on above: Order Comment: Speci men Type: BLOOD SPECIMEN Ordering Facility: [facility] Address: [address] [address] Performed By: #### 5 7021-8 #### [facility] CLIA [id number] [address] [place] [address] Neutrophils (Bld) [#/Vol] 2.76 10*3/uL Normal 1.45-7.50 [facility] Comment on above: Order Comment: Speci men Type: BLOOD SPECIMEN Ordering Facility: [facility] Address: [address] [address] Performed By: #### 5 7021-8 #### [facility] CLIA [id number] [address] [place] [address] Neutrophils/100 WBC (Bld) 74.0 % Normal [facility] Comment on above: Order Comment: Speci men Type: BLOOD SPECIMEN Ordering Facility: [facility] Address: [address] Performed By: #### 5 7021-8 #### [facility] CLIA [id number] [address] [place] [address] Nucleated RBC (Bld) [#/Vol] 10*3/uL Normal <0.01 [facility] Comment on above: Order Comment: Speci men Type: BLOOD SPECIMEN Ordering Facility: [facility] Address: [address] Performed By: #### 5 7021-8 #### [facility] CLIA [id number] [address] [place] [address] Nucleated RBC/100 WBC (Bld) [Ratio] 0.0 /100 WBC Normal [facility] Comment on above: Order Comment: Speci men Type: BLOOD SPECIMEN Ordering Facility: [facility] Address: [address] [address] Performed By: #### 5 7021-8 #### [facility] CLIA [id number] [address] [place] [address] Platelet mean volume (Bld) [Entitic vol] 9.7 fL Normal 9.0-12.7 [facility] Comment on above: Order Comment: Speci men Type: BLOOD SPECIMEN Ordering Facility: [facility] Address: [address] [place] [address] Performed By: #### 5 7021-8 #### [facility] CLIA [id number] [address] [place] [address] Platelets (Bld) [#/Vol] 81 10*3/uL Low 150-400 C [facility] Comment on above: Order Comment: Speci men Type: BLOOD SPECIMEN Ordering Facility: [facility] Address: [address] [place] [address] [facility] Performed By: #### 5 7021-8 #### [facility] CLIA [id number] [address] [place] [address]75 RBC (Bld) [#/Vol] 3.42 10*6/uL Low 4.20-6.00 [facility] Comment on above: Order Comment: Speci men Type: BLOOD SPECIMEN Ordering Facility: [facility] Address: [address] [place] [address] Performed By: #### 5 7021-8 #### [facility] CLIA [id number] [address] [place] [address] 0[address]70 WBC (Bld) [#/Vol] 3.73 10*3/uL Normal 3.70-11.00 [facility] Comment on above: Order Comment: Speci men Type: BLOOD SPECIMEN Ordering Facility: [facility] Address: [address] [place] [address] Performed By: #### 5 7021-8 #### [facility] CLIA [id number] [address] [place] [address]677 Basophils (Bld) [#/Vol] <0.11 k/uL C [facility] Basophils/100 WBC (Bld) 0.5 % C [facility] Differential cell count method Nom (Bld) Auto [facility] Eosinophils (Bld) [#/Vol] 0.08 10*3/uL <0.46 k/uL [facility] Eosinophils/100 WBC (Bld) 2.1 % [facility] Erythrocyte distribution width (RBC) [Ratio] 15.9 % High 11.5 - 15.0 % [facility] Hematocrit (Bld) [Volume fraction] 33.5 % Low 39.0 - 51.0 % [facility] Hemoglobin (Bld) [Mass/Vol] 11.4 g/dL Low 13.0 - 17.0 g/dL [facility] Immature granulocytes (Bld) [#/Vol] <0.10 k/uL [facility] Immature granulocytes/100 WBC (Bld) 0.3 % [facility] Lymphocytes (Bld) [#/Vol] 0.60 10*3/uL Low 1.00 - 4.00 k/uL [facility] Lymphocytes/100 WBC (Bld) 16.1 % [facility] MCH (RBC) [Entitic mass] 33.3 pg 26.0 - 34.0 pg [facility] MCHC (RBC) [Mass/Vol] 34.0 g/dL 30.5 - 36.0 g/dL [facility] MCV (RBC) [Entitic vol] 98.0 fL 80.0 - 100.0 fL [facility] Monocytes (Bld) [#/Vol] 0.26 10*3/uL <0.87 k/uL [facility] Monocytes/100 WBC (Bld) 7.0 % C [facility] Neutrophils (Bld) [#/Vol] 2.76 10*3/uL 1.45 - 7.50 k/uL [facility] Neutrophils/100 WBC (Bld) 74.0 % [facility] Nucleated RBC (Bld) [#/Vol] <0.01 k/uL [facility] Nucleated RBC/100 WBC (Bld) [Ratio] 0.0 /100 WBC [facility] Platelet mean volume (Bld) [Entitic vol] 9.7 fL 9.0 - 12.7 fL [facility] Platelets (Bld) [#/Vol] 81 10*3/uL Low 150 - 400 k/uL [facility] RBC (Bld) [#/Vol] 3.42 10*6/uL Low 4.20 - 6.00 m/uL [facility] WBC (Bld) [#/Vol] 3.73 10*3/uL 3.70 - 11.00 k/uL [facility] CNOVSPon 08-30-2022 CNOVSP Visit (SP) Office (H EMASA) ZORANBRIAN Katz ([id number]) 1945 M Date Time Provider Department 08/30/22 3:00 PM TRICIA CRESPO During your visit today, we recorded the following information about you: Temperature Pulse Respiration Blood pressure 97.7 degrees 59/minute 18/minute 158/59 Weight Height 73.6 kg 1.703 m Tricia Crespo MD 08/30/2022 3:09 PM Signed Patient: Brian Kilgorez Location: [facility] [place] : 1945 [address]: [address] Vazquez Quinonez [...] distress, pl (more content not included)... Normal [facility] Comprehensive metabolic 2000 panelon 08-30-2022 Albumin [Mass/Vol] 4.5 g/dL Normal 3.9-4.9 [facility] Comment on above: Order Comment: Speci men Type: BLOOD SPECIMEN Ordering Facility: [facility] Address: [address] [id number] Performed By: #### 2 532-0, 48097-8 #### [facility] CLIA [id number] [address] [place] [address]96 ALP [Catalytic activity/Vol] 86 U/L Normal 38-113 [facility] Comment on above: Order Comment: Speci men Type: BLOOD SPECIMEN Ordering Facility: [facility] Address: [address] [id number] Performed By: #### 2 532-0, #### [facility] CLIA [id number] [address] [place] [address]01 ALT [Catalytic activity/Vol] 15 U/L Normal 10-54 [facility] Comment on above: Order Comment: Speci men Type: BLOOD SPECIMEN Ordering Facility: [facility] Address: [address] [address] Performed By: #### 2 532-0, #### [facility] CLIA [id number] [address] [place] [address]10 Anion gap [Moles/Vol] 8 mmol/L Low 9-18 [facility] Comment on above: Order Comment: Speci men Type: BLOOD SPECIMEN Ordering Facility: [facility] Address: [address] [address] Performed By: #### 2 532-0, #### [facility] CLIA [id number] [address] [place] [address]329 AST [Catalytic activity/Vol] 16 U/L Normal 14-40 [facility] Comment on above: Order Comment: Speci men Type: BLOOD SPECIMEN Ordering Facility: [facility] Address: [address] [address] Performed By: #### 2 532-0, #### [facility] CLIA [id number] [address] [place] [address] Bilirubin [Mass/Vol] 0.5 mg/dL Normal 0.2-1.3 [facility] Comment on above: Order Comment: Speci men Type: BLOOD SPECIMEN Ordering Facility: [facility] Address: [address] [address] Performed By: #### 2 532-0, #### [facility] CLIA [id number] [address] [place] [address] Calcium [Mass/Vol] 9.5 mg/dL Normal 8.5-10.2 [facility] Comment on above: Order Comment: Speci men Type: BLOOD SPECIMEN Ordering Facility: [facility] Address: [address] [address] Performed By: #### 2 532-0, 15582-6 #### [facility] CLIA [id number] [address] [place] [address]651 Chloride [Moles/Vol] 110 mmol/L High 97-105 [facility] Comment on above: Order Comment: Speci men Type: BLOOD SPECIMEN Ordering Facility: [facility] Address: [address] [place] [address] Performed By: #### 2 532-0, 63865-4 #### [facility] CLIA [id number] [address] [place] [address]40 CO2 [Moles/Vol] 30 mmol/L Normal 22-30 [facility] Comment on above: Order Comment: Speci men Type: BLOOD SPECIMEN Ordering Facility: [facility] Address: [address] [place] [address] Performed By: #### 2 532-0, 57154-1 #### [facility] CLIA [id number] [address] [place] [address]43 Creatinine [Mass/Vol] 0.93 mg/dL Normal 0.73-1.22 [facility] Comment on above: Order Comment: Speci men Type: BLOOD SPECIMEN Ordering Facility: [facility] Address: [address] [place] [address] Performed By: #### 2 532-0, 54727-6 #### [facility] CLIA [id number] [address] [place] [address]197 ESTIMATED GLOMERULAR FILTRATION RATE 85 mL/min/1.73m??? Normal >=60 [facility] Comment on above: Order Comment: Speci men Type: BLOOD SPECIMEN Ordering Facility: [facility] Address: [address] [place] [address] Result Comment: Arelis mated Glomerular Filtration Rate [...] actual GFR. Performed By: #### 2 532-0, 14592-0 #### [facility] CLIA [id number] [address] [place] [address] Glucose [Mass/Vol] 86 mg/dL Normal 74-99 [facility] Comment on above: Order Comment: Speci men Type: BLOOD SPECIMEN Ordering Facility: [facility] Address: [address] [place] [address] Result Comment: The [place] [employer] (ADA) provides guidance for cutoff [...] Standards of Medical Care in Diabetes 2016, [place] [employer]. Diabetes Care. 2016.39(Suppl 1). Performed By: #### 2 532-0, 95972-4 #### [facility] CLIA [id number] [address] [place] [address]91 Potassium [Moles/Vol] 4.3 mmol/L Normal 3.7-5.1 [facility] Comment on above: Order Comment: Speci men Type: BLOOD SPECIMEN Ordering Facility: [facility] Address: [address] [place] [address] Performed By: #### 2 532-0, #### [facility] CLIA [id number] [address] [place] [address]5836 Protein [Mass/Vol] 6.4 g/dL Normal 6.3-8.0 [facility] Comment on above: Order Comment: Speci men Type: BLOOD SPECIMEN Ordering Facility: [facility] Address: [address] [place] [address] Performed By: #### 2 532-0, 29372-0 #### [facility] CLIA [id number] [address] [place] [address]1572 Sodium [Moles/Vol] 148 mmol/L High 136-144 [facility] Comment on above: Order Comment: Speci men Type: BLOOD SPECIMEN Ordering Facility: [facility] Address: [address] [phone] Performed By: #### 2 532-0, 48704-8 #### [facility] CLIA [id number] [address] [place], [place] [address] Urea nitrogen [Mass/Vol] 24 mg/dL Normal 9-24 [facility] Comment on above: Order Comment: Speci men Type: BLOOD SPECIMEN Ordering Facility: [facility] Address: [address] [address] Performed By: #### 2 532-0, 09936-9 #### [facility] CLIA [id number] [address] [place], [place] [address] Albumin [Mass/Vol] 4.5 g/dL 3.9 - 4.9 g/dL [facility] ALP [Catalytic activity/Vol] 86 U/L 38 - 113 U/L [facility] ALT [Catalytic activity/Vol] 15 U/L 10 - 54 U/L [facility] Anion gap [Moles/Vol] 8 mmol/L Low 9 - 18 mmol/L [facility] AST [Catalytic activity/Vol] 16 U/L 14 - 40 U/L [facility] Bilirubin [Mass/Vol] 0.5 mg/dL 0.2 - 1 .3 mg/dL [facility] Calcium [Mass/Vol] 9.5 mg/dL 8.5 - 10. 2 mg/dL [facility] Chloride [Moles/Vol] 110 mmol/L High 97 - 10 5 mmol/L [facility] CO2 [Moles/Vol] 30 mmol/L 22 - 30 mmol/L [facility] Creatinine [Mass/Vol] 0.93 mg/dL 0.73 - 1.22 mg/dL [facility] Estimated Glomerular Filtration Rate 85 mL/min/1.73m >=60 mL/min/1.7 3m [facility] Glucose [Mass/Vol] 86 mg/dL 74 - 99 mg/dL [facility] Potassium [Moles/Vol] 4.3 mmol/L 3.7 - 5.1 mmol/L [facility] Protein [Mass/Vol] 6.4 g/dL 6.3 - 8.0 g/dL [facility] Sodium [Moles/Vol] 148 mmol/L High 136 - 144 mmol/L [facility] Urea nitrogen [Mass/Vol] 24 mg/dL 9 - 24 mg/dL [facility] Ferritin SerPl-mCncon 2021 Ferritin [Mass/Vol] 121.0 ng/mL Normal 30.3-565.7 [facility] Comment on above: Order Comment: Speci men Type: BLOOD SPECIMEN Ordering Facility: [facility] Address: [address] [place] [address] Performed By: #### 5 0190-8, 2132-06, 2276-01 #### [facility] CLIA [id number] [address] [place] [address] [place] Iron and Iron binding capaci ty panelon 08-30-2022 Iron [Mass/Vol] 100 ug/dL Normal 41-186 [facility] Comment on above: Order Comment: Speci men Type: BLOOD SPECIMEN Ordering Facility: [facility] Address: [address] [place], [place] [address] Performed By: #### 5 0190-8, 2132-06, 2276-01 #### [facility] CLIA [id number] [address] [place] [address] [place] Iron binding capacity [Mass/Vol] 287 ug/dL Normal 232-386 [facility] Comment on above: Order Comment: Speci men Type: BLOOD SPECIMEN Ordering Facility: [facility] Address: [address] [place], [place] [address] Performed By: #### 5 0190-8, 2132-06, 2276-01 #### [facility] CLIA [id number] [address] [place] [address] [place] Iron/TIBC [Molar ratio] 34.8 % Normal 15.0-57.0 [facility] Comment on above: Order Comment: Speci men Type: BLOOD SPECIMEN Ordering Facility: [facility] Address: [address] [place] [address] Performed By: #### 5 0190-8, 2132-06, 2276-01 #### [facility] CLIA [id number] [address] [place] [address] [place] LD LACTATE DEHYDROon 022 LDH [Catalytic activity/Vol] 180 U/L 135 - 225 U/L [facility] LDH SerPl-cCncon 08-30-2022 LDH [Catalytic activity/Vol] 180 U/L Normal 135-225 [facility] Comment on above: Order Comment: Speci men Type: BLOOD SPECIMEN Ordering Facility: [facility] Address: [address] [place] [address] Performed By: #### 2 532-0, 07495-5 #### [facility] CLIA [id number] [address] [place] [address] Vit B12 SerPl-mCncon 022 Cobalamin (Vitamin B12) [Mass/Vol] 468 pg/mL Normal 232-1245 [facility] Comment on above: Order Comment: Speci men Type: BLOOD SPECIMEN Ordering Facility: [facility] Address: [address] [place] [address] Performed By: #### 5 0190-8, 2132-06, 2276-01 #### [facility] CLIA [id number] [address] [place] [address] [place] CULTURE BLOODon 05-08-2022 Microscopic [...] <=0.25 S F Clindamycin <=0.25 S F Quinupristin/Dalfopristin <=0.25 S F Linezolid 2 S F Vancomycin <=0.5 S F Tetracycline <=1 S F Rifampicin <=0.5 S F Trimethoprim/Sulfamethoxazo le <=10 S F Oxacillin <=0.25 S F Normal [facility] Comment on above: Performed By: #### P OCGLUC #### [facility] [address] [place] [address] Dr. Kelly Mukherjee BLOOD CULTURE ID PANELon A. baumannii Not detected Normal NOT DETECTED [facility] Comment on above: Performed By: #### B CID2 #### [facility] [address] [place] [address] Dr. Kelly Mukherjee Bacteriodes fragilis Not detected Normal NOT DETECTED [facility] Comment on above: Performed By: #### B CID2 #### [facility] [address] [place] [address] Dr. Kelly COCHRAND CONTROLS PASSED Normal [facility] Comment on above: Performed By: #### B CID2 #### [facility] [address] [place] [address] Dr. Kelly Mukherjee BCIDBTHD BLOOD CULTURE BOTTLE INFORMATION Normal [facility] Comment on above: Performed By: #### B CID2 #### [facility] [address] [place] [address] Dr. Kelly Mukherjee BCIDHD1 ANTIMICROBIAL RESIST ANCE GENES Normal [facility] Comment on above: Performed By: #### B CID2 #### [facility] [address] [place] [address] Dr. Kelly Mukherjee BCIDHD2 SEE BELOW [facility] Comment on above: Result Comment: Note : Antimicrobial resitance can occur via multiple mechanisms. A Not Detected result for the [employer] antomicrobial resistance gene assays does not indicate antimicrobial susceptibility. Subculturing is required for species identification and susceptibility testing of isolates. Performed By: #### B CID2 #### [facility] [address] [place] [address] Dr. Kelly Mukherjee BCIDHD3 Positive Normal [facility] Comment on above: Performed By: #### B CID2 #### [facility] [address] [place] [address] Dr. Kelly Mukherjee BCIDHD4 Negative Normal [facility] Comment on above: Performed By: #### B CID2 #### [facility] [address] [place] [address] Dr. Kelly Mukherjee BCIDHD5 YEAST Normal [facility] Comment on above: Performed By: #### B CID2 #### [facility] [address] [place] [address] Dr. Kelly Mukherjee Bottle Set: Set 2 Normal [facility] Comment on above: Performed By: #### B CID2 #### [facility] [address] [place] [address] Dr. Kelly Mukherjee Bottle: Aerobic Normal [facility] Comment on above: Performed By: #### B CID2 #### [facility] [address] [place] [address] Dr. Kelly Mukherjee C. neoformans/gattii Not detected Normal NOT DETECTED [facility] Comment on above: Performed By: #### B CID2 #### [facility] [address] [place] [address] Dr. Kelly Mukherjee Morenita albicans Not detected Normal NOT DETECTED [facility] Comment on above: Performed By: #### B CID2 #### [facility] [address] [place] [address] Dr. Kelly Mukherjee Morenita auris Not detected Normal NOT DETECTED [facility] Comment on above: Performed By: #### B CID2 #### [facility] [address] [place] [address] Dr. Kelly Mukherjee Morenita glabrata Not detected Normal NOT DETECTED [facility] Comment on above: Performed By: #### B CID2 #### [facility] [address] [place] [address] Dr. Kelly Mukherjee Morenita Krusei Not detected Normal NOT DETECTED [facility] Comment on above: Performed By: #### B CID2 #### [facility] [address] [place] [address] Dr. Kelly Mukherjee [place] Parapsilosis Not detected Normal NOT DETECTED [facility] Comment on above: Performed By: #### B CID2 #### [facility] [address] [place] [address] Dr. Kelyl Mukherjee [place] Tropicalis Not detected Normal NOT DETECTED [facility] Comment on above: Performed By: #### B CID2 #### [facility] [address] [place] [address] Dr. Kelly Mukherjee CTX-M Resistant Gene Not Applicable Normal NOT DETECTED [facility] Comment on above: Performed By: #### B CID2 #### [facility] [address] [place] [address] Dr. Kelly Mukherjee E. Cloacae complex Not detected Normal NOT DETECTED [facility] Comment on above: Performed By: #### B CID2 #### [facility] [address] [place] [address] Dr. Kelly Mukherjee E. faecalis Not detected Normal NOT DETECTED [facility] Comment on above: Performed By: #### B CID2 #### [facility] [address] [place] [address] Dr. Kelly Mukherjee E. faecium Not detected Normal NOT DETECTED [facility] Comment on above: Performed By: #### B CID2 #### [facility] [address] [place] [address] Dr. Kelly Mukherjee Enterobacteriaceae Not detected Normal NOT DETECTED [facility] Comment on above: Performed By: #### B CID2 #### [facility] [address] [place] [address] Dr. Kelly Mukherjee Escherichia coli Not detected Normal NOT DETECTED [facility] Comment on above: Performed By: #### B CID2 #### [facility] [address] [place] [address] Dr. Kelly Mukherjee H. influenzae Not detected Normal NOT DETECTED [facility] Comment on above: Performed By: #### B CID2 #### [facility] [address] [place] [address] Dr. Kelly Mukherjee IMP Resistant Gene Not Applicable Normal NOT DETECTED [facility] Comment on above: Performed By: #### B CID2 #### [facility] [address] [place] [address] Dr. Kelly Mukherjee K. oxytoca Not detected Normal NOT DETECTED [facility] Comment on above: Performed By: #### B CID2 #### [facility] [address] [place] [address] Dr. Kelly Mukherjee K. pneumoniae Not detected Normal NOT DETECTED [facility] Comment on above: Performed By: #### B CID2 #### [facility] [address] [place] [address] Dr. Kelly Mukherjee Klebsiella aerogenes Not detected Normal NOT DETECTED [facility] Comment on above: Performed By: #### B CID2 #### [facility] [address] [place] [address] Dr. Kelly Mukherjee KPC Resistant Gene Not Applicable Normal NOT DETECTED [facility] Comment on above: Performed By: #### B CID2 #### [facility] [address] [place] [address] Dr. Kelly Mukherjee List. monocytogenes Not detected Normal NOT DETECTED [facility] Comment on above: Performed By: #### B CID2 #### [facility] [address] [place] [address] Dr. Kelly Mukherjee Mcr-1 Resistant Gene Not Applicable Normal NOT DETECTED [facility] Comment on above: Performed By: #### B CID2 #### [facility] [address] [place] [address] Dr. Kelly Mukherjee mecA/C Not Applicable Normal NOT DETECTED [facility] Comment on above: Performed By: #### B CID2 #### [facility] [address] [place] [address] Dr. Kelly Mukherjee mecA/C MREJ Not Applicable Normal NOT DETECTED [facility] Comment on above: Performed By: #### B CID2 #### [facility] [address] [place] [address] Dr. Kelly Mukherjee N. meningitidis Not detected Normal NOT DETECTED [facility] Comment on above: Performed By: #### B CID2 #### [facility] [address] [place] [address] Dr. Kelly Mukherjee NDM Resistant Gene Not Applicable Normal NOT DETECTED [facility] Comment on above: Performed By: #### B CID2 #### [facility] [address] [place] [address] Dr. Kelly Mukherjee Oxa-48-like Not Applicable Normal NOT DETECTED [facility] Comment on above: Performed By: #### B CID2 #### [facility] [address] [place] [address] Dr. Kelly Mukherjee Proteus Not detected Normal NOT DETECTED [facility] Comment on above: Performed By: #### B CID2 #### [facility] [address] [place] [address] Dr. Kelly Mukherjee Pseud. aeruginosa Not detected Normal NOT DETECTED [facility] Comment on above: Performed By: #### B CID2 #### [facility] [address] [place] [address] Dr. Kelly Mukherjee S. maltophilia Not detected Normal NOT DETECTED [facility] Comment on above: Performed By: #### B CID2 #### [facility] [address] [place] [address] Dr. Kelly Mukherjee Salmonella Not detected Normal NOT DETECTED [facility] Comment on above: Performed By: #### B CID2 #### [facility] [address] [place] [address] Dr. Kelly Mukherjee Seratia marcescens Not detected Normal NOT DETECTED [facility] Comment on above: Performed By: #### B CID2 #### [facility] [address] [place] [address] Dr. Kelly Mukherjee Site: Lt Hand Normal [facility] Comment on above: Performed By: #### B CID2 #### [facility] [address] [place] [address] Dr. Kelly Mukherjee Staph. aureus Not detected Normal NOT DETECTED [facility] Comment on above: Performed By: #### B CID2 #### [facility] [address] [place] [address] Dr. Kelly Huston. epidermidis Not detected Normal NOT DETECTED [facility] Comment on above: Performed By: #### B CID2 #### [facility] [address] [place] [address] Dr. Kelly Mukherjee Staph. lugdunensis Not detected Normal NOT DETECTED [facility] Comment on above: Performed By: #### B CID2 #### [facility] [address] [place] [address] Dr. Kelly Mukherjee Staphylococcus Detected Abnormal NOT DETECTED [facility] Comment on above: Performed By: #### B CID2 #### [facility] [address] [place] [address] Dr. Kelly Mukherjee Strep. agalactiae Not detected Normal NOT DETECTED [facility] Comment on above: Performed By: #### B CID2 #### [facility] [address] [place] [address] Dr. Kelly Mukherjee Strep. pneumoniae Not detected Normal NOT DETECTED [facility] Comment on above: Performed By: #### B CID2 #### [facility] [address] [place] [address] Dr. Kelly Mukherjee Strep. pyogenes Not detected Normal NOT DETECTED [facility] Comment on above: Performed By: #### B CID2 #### [facility] [address] [place] [address] Dr. Kelly Mukherjee Streptococcus Not detected Normal NOT DETECTED [facility] Comment on above: Performed By: #### B CID2 #### [facility] [address] [place] [address] Dr. Kelly Mukherjee Jennie/Suraj Resist. Gene Not Applicable Normal NOT DETECTED [facility] Comment on above: Performed By: #### B CID2 #### [facility] [address] [place] [address] Dr. Kelly Mukherjee VIM Resistant Gene Not Applicable Normal NOT DETECTED [facility] Comment on above: Performed By: #### B CID2 #### [facility] [address] [place] [address] Dr. Kelly Mukherjee CBC AUTO DIFFon 05-03-2022 BASO # 0.0 103/ul Normal 0.0-0.1 [facility] Comment on above: Performed By: #### C BC #### [facility] [address] [place] [address] Dr. Kelly Mukherjee Basophils/100 WBC (Bld) 0.0 % Critically low 0.2-2.0 [facility] Comment on above: Performed By: #### C BC #### [facility] [address] [place] [address] Dr. Kelly Mukherjee EO # 0.0 103/ul Normal 0.0-0.7 [facility] Comment on above: Performed By: #### C BC #### [facility] [address] [place] [address] Dr. Kelly Mukherjee Eosinophils/100 WBC (Bld) 0.0 % Critically low 0.9-7.0 [facility] Comment on above: Performed By: #### C BC #### [facility] [address] [place] [address] Dr. Kelly Mukherjee Erythrocyte distribution width (RBC) [Ratio] 15.5 % Critically high 11.0-15.0 [facility] Comment on above: Performed By: #### C BC #### [facility] [address] [place] [address] Dr. Kelly Mukherjee Hematocrit (Bld) [Volume fraction] 25.3 % Critically low 42.0-54.0 [facility] Comment on above: Performed By: #### C BC #### [facility] [address] [place] [address] Dr. Kelly Mukherjee Hemoglobin (Bld) [Mass/Vol] 8.8 g/dL Critically low 14.0-18.0 [facility] Comment on above: Performed By: #### C BC #### [facility] [address] [place] [address] Dr. Kelly Mukherjee IG # 0.00 10e3/ul Normal 0.00-0.03 [facility] Comment on above: Performed By: #### C BC #### [facility] [address] [place] [address] Dr. Kelly Mukherjee IG % 0.0 % Normal 0.0-0.5 [facility] Comment on above: Performed By: #### C BC #### [facility] [address] [place] [address] Dr. Kelly Mukherjee LYMPH # 0.2 103/ul Critically low 1.2-3.8 [facility] Comment on above: Performed By: #### C BC #### [facility] [address] [place] [address] Dr. Kelly Mukherjee Lymphocytes/100 WBC (Bld) 11.5 % Critically low 20.5-60.0 [facility] Comment on above: Performed By: #### C BC #### [facility] [address] [place] [address] Dr. Kelly Mukherjee MANUAL DIFF REQ NO Normal [facility] Comment on above: Performed By: #### C BC #### [facility] [address] [place] [address] Dr. Kelly Mukherjee MCH (RBC) [Entitic mass] 34.1 pg Critically high 25.9-34.0 [facility] Comment on above: Performed By: #### C BC #### [facility] [address] [place] [address] Dr. Kelly Mukherjee MCHC (RBC) [Mass/Vol] 34.8 g/dL Normal 29.9-35.2 [facility] Comment on above: Performed By: #### C BC #### [facility] [address] [place] [address] Dr. Kelly Mukherjee MCV (RBC) [Entitic vol] 98.1 fL Critically high 80.0-94 .0 [facility] Comment on above: Performed By: #### C BC #### [facility] [address] [place] [address] Dr. Kelly Mukherjee MONO # 0.2 103/ul Critically low 0.3-0.8 [facility] Comment on above: Performed By: #### C BC #### [facility] [address] [place] [address] Dr. Kelly Mukherjee Monocytes/100 WBC (Bld) 14.5 % Critically high 1.7-12. 0 [facility] Comment on above: Performed By: #### C BC #### [facility] [address] [place] [address] Dr. Kelly Mukherjee NEUT # 1.2 103/ul Critically low 1.4-6.5 [facility] Comment on above: Performed By: #### C BC #### [facility] [address] [place] [address] Dr. Kelly Mukherjee Neutrophils/100 WBC (Bld) 74.0 % Normal 43.0-75.0 [facility] Comment on above: Performed By: #### C BC #### [facility] [address] [place] [address] Dr. Kelly Mukherjee Platelet mean volume (Bld) [Entitic vol] 10.3 fL Normal 9.5-13.5 [facility] Comment on above: Performed By: #### C BC #### [facility] [address] [place] [address] Dr. Kelly Mukherjee PLT 59 103/ul Critically low 150-450 [facility] Comment on above: Performed By: #### C BC #### [facility] [address] [place] [address] Dr. Kelly Mukherjee RBC 2.58 106/ul Critically low 4.70-6.10 [facility] Comment on above: Performed By: #### C BC #### [facility] [address] [place] [address] Dr. Kelly Mukherjee WBC 1.7 103/ul Critically low 4.0-11.0 [facility] Comment on above: Performed By: #### C BC #### [facility] [address] [place] [address] Dr. Kelly Mukherjee CBC W MANUAL DIFFon 05-03-20 22 ATYPICAL LYMPH # Normal [facility] Comment on above: Performed By: #### C VDTBH #### [facility] [address] [place] [address] Dr. Kelly Mukherjee ATYPICAL LYMPH % Normal [facility] Comment on above: Performed By: #### C VDTBH #### [facility] [address] [place] [address] Dr. Kelly Mukherjee BAND # 0.0 103/ul Normal 0.0-0.3 [facility] Comment on above: Performed By: #### C VDTBH #### [facility] [address] [place] [address] Dr. Kelly Mukherjee BAND % 1 % Normal 0-5 [facility] Comment on above: Performed By: #### C VDTBH #### [facility] [address] [place] [address] Dr. Kelly Mukherjee BASOM # 0.00 103/ul Normal 0.00-0.10 [facility] Comment on above: Performed By: #### C VDTB #### [facility] [address] [place] [address] Dr. Kelly Mukherjee BASOM % 0.0 % Critically low 0.2-2.0 [facility] Comment on above: Performed By: #### C VDTB #### [facility] [address] [place] [address] Dr. Kelly Mukherjee BLAST # Normal [facility] Comment on above: Performed By: #### C VDTB #### [facility] [address] [place] [address] Dr. Kelly Mukherjee BLAST % Normal [facility] Comment on above: Performed By: #### C VDTBH #### [facility] [address] [place] [address] Dr. Kelly Mukherjee CORRECTED WBC Normal 4.0-11.0 [facility] Comment on above: Performed By: #### C VDTBH #### [facility] [address] [place] [address] Dr. Kelly Mukherjee EOS # 0.00 103/ul Normal 0.00-0.70 [facility] Comment on above: Performed By: #### C VDTBH #### [facility] [address] [place] [address] Dr. Kelly Mukherjee EOS% 0.0 % Critically low 0.9-7.0 [facility] Comment on above: Performed By: #### C VDTBH #### [facility] [address] [address] [address] Kelly Mukherjee HCT 26.7 % Critically low 42.0-54.0 [facility] Comment on above: Performed By: #### C VDTBH #### [facility] [address] [address] [address] Kelly Mukherjee HGB 9.3 g/dl Critically low 14.0-18.0 [facility] Comment on above: Performed By: #### C VDTBH #### [facility] [address] [address] [address] Kelly Mukherjee LYMPHM # 0.21 103/ul Critically low 1.20-3.80 [facility] Comment on above: Performed By: #### C VDTBH #### [facility] [address] [place] [address] Dr. Kelly Mukherjee LYMPHM% 13.0 % Critically low 20.5-60.0 [facility] Comment on above: Performed By: #### C VDTBH #### [facility] [address] [place] [address] Dr. Kelly Mukherjee MCH 33.9 pg Normal 25.9-34.0 [facility] Comment on above: Performed By: #### C VDTBH #### [facility] [address] [place] [address] Dr. Kelly Mukherjee MCHC 34.8 g/dl Normal 29.9-35.2 [facility] Comment on above: Performed By: #### C VDTBH #### [facility] [address] [place] [address] Dr. Kelly Mukherjee MCV 97.4 fL Critically high 80.0-94.0 [facility] Comment on above: Performed By: #### C VDTBH #### [facility] [address] [place] [address] Dr. Kelly Mukherjee METAMYELOCYTE # Normal [facility] Comment on above: Performed By: #### C VDTBH #### [facility] [address] [place] [address] Dr. Kelly Mukherjee METAMYELOCYTE % Normal [facility] Comment on above: Performed By: #### C VDTBH #### [facility] [address] [place] [address] Dr. Kelly Mukherjee MONOM# 0.16 103/ul Critically low 0.30-0.80 [facility] Comment on above: Performed By: #### C VDTBH #### [facility] [address] [place] [address] Dr. Kelly Mukherjee MONOM% 10.0 % Normal 1.7-12.0 [facility] Comment on above: Performed By: #### C VDTBH #### [facility] [address] [place] [address] Dr. Kelly Mukherjee MPV 9.9 fL Normal 9.5-13.5 [facility] Comment on above: Performed By: #### C VDTBH #### [facility] [address] [place] [address] Dr. Kelly Mukherjee MYELOCYTE # Normal [facility] Comment on above: Performed By: #### C VDTBH #### [facility] [address] [place] [address] Dr. Kelly Mukherjee MYELOCYTE % Normal [facility] Comment on above: Performed By: #### C VDTBH #### [facility] [address] [place] [address] Dr. Kelly Mukherjee NRBC Normal [facility] Comment on above: Performed By: #### C VDTBH #### [facility] [address] [place] [address] Dr. Kelly Mukherjee PLT 61 103/ul Critically low 150-450 [facility] Comment on above: Performed By: #### C VDTBH #### [facility] [address] [place] [address] Dr. Kelly Mukherjee RBC 2.74 106/ul Critically low 4.70-6.10 [facility] Comment on above: Performed By: #### C VDTBH #### [facility] [address] [place] [address] Dr. Kelly Mukherjee RDW 15.6 % Critically high 11.0-15.0 [facility] Comment on above: Performed By: #### C VDTBH #### [facility] [address] [place] [address] Dr. Kelly Mukherjee SEG # 1.22 103/ul Critically low 1.40-6.50 [facility] Comment on above: Performed By: #### C VDTBH #### [facility] [address] [place] [address] Dr. Kelly Mukherjee SEG % 76.0 % Critically high 43.0-75.0 [facility] Comment on above: Performed By: #### C VDTBH #### [facility] [address] [place] [address] Dr. Kelly Mukherjee WBC 1.6 103/ul Critically low 4.0-11.0 [facility] Comment on above: Performed By: #### C VDTBH #### [facility] [address] [place] [address] HEAD WO CONon [...] KIA JENNINGS Date: 2022-05-03 00:00 Normal [facility] CULTURE BLOODon 05-03-2022 Microscopic examination of blood, culture Culture Observations: NO GROWTH AT 5 DAYS. Normal [facility] Comment on above: Performed By: #### P OCGLUC #### [facility] [address] [place] [address] Dr. Kelly Mukherjee CULTURE URINEon 05-03-2022 CULTURE URINE Culture Observations : HEAVY GROWTH OF MIXED SKIN TERE. NO POTENTIAL PATHOGENS SEEN. Normal [facility] Comment on above: Performed By: #### P OCGLUC #### [facility] [address] [place] [address] Dr. Kelly Mukherjee [facility] SARS-CoV-2 (COVID-19) RNA ABIMBOLA+probe Ql (Unsp spec) Detected Critically abnormal NOT DETECTED [facility] Comment on above: Result Comment: This test is not yet approved or cleared by the [place] FDA. When there are no FDA-approved or cleared tests available, and other criteria are met, FDA can make tests available under an emergency access mechanism called an Emergency Use Authorization (EUA). The EUA for this test is supported by the [place] Coordinator of Health and Human Service's declaration that [...] used). Performed By: #### C VDTBH #### [facility] [address] [place] [address] Dr. Kelly Mukherjee ER URINE PROFILEon Bilirubin Ql (U) Negative Normal NEGATIVE [facility] Comment on above: Performed By: #### CAITY CABRALRO #### [facility] [address] [place] [address] Dr. Kelly Mukherjee Clarity (U) CLEAR Normal CLEAR [facility] Comment on above: Performed By: #### E TAYLOR UMTOIRERO #### [facility] [address] [place] [address] Dr. Kelly Mukherjee Color (U) YELLOW Normal YELLOW [facility] Comment on above: Performed By: #### E TAYLOR UMICRO #### [facility] [address] [place] [address] Dr. Kelly Mukherjee ERUAHD A micrscopic examina tion will be performed if indicated. Normal [facility] Comment on above: Performed By: #### Javy VAZQUEZ UMICRO #### [facility] [address] [place] [address] Dr. Kelly Mukherjee Glucose Ql (U) 100 mg/dl Abnormal NEGATIVE [facility] Comment on above: Performed By: #### Javy VAZQUEZ UMICRO #### [facility] [address] [place] [address] Dr. Kelly Mukherjee Hemoglobin Ql (U) TRACE-INTACT Abnormal NEGATIVE [facility] Comment on above: Performed By: #### Javy VAZQUEZ UMICRO #### [facility] [address] [place] [address] Dr. Kelly Mukherjee Ketones Ql (U) Negative Normal NEGATIVE [facility] Comment on above: Performed By: #### Javy VAZQUEZ UMICRO #### [facility] [address] [place] [address] Dr. Kelly Mukherjee LEUKOCYTES Negative Normal NEGATIVE [facility] Comment on above: Performed By: #### Javy VAZQUEZ UMICRO #### [facility] [address] [place] [address] Dr. Kelly Mukherjee Nitrite Ql (U) Positive Abnormal NEGATIVE [facility] Comment on above: Performed By: #### Javy VAZQUEZ UMICRO #### [facility] [address] [place] [address] Dr. Kelly Mukherjee pH (U) 5.5 [pH] Normal 5-9 [facility] Comment on above: Performed By: #### Javy VAZQUEZ UMICRO #### [facility] [address] [place] [address] Dr. Kelly Mukherjee Protein (U) [Mass/Vol] 100 mg/dL Abnormal NEGAT NADER/ TRACE [facility] Comment on above: Performed By: #### Javy VAZQUEZ UMICRO #### [facility] [address] [place] [address] Dr. Kelly Mukherjee SPEC GRAVITY 1.025 Normal 1.005-<=1. 025 [facility] Comment on above: Performed By: #### MARIKA CABRAL #### [facility] [address] [place] [address] Dr. Kelly Mukherjee UR MICRO IND INDICATED Normal [facility] Comment on above: Performed By: #### MARIKA CABRAL #### [facility] [address] [place] [address] Dr. Kelly Mukherjee Urobilinogen Qn (U) 0.2 {Jun'U}/dL Normal 0.2 - 1. 0 [facility] Comment on above: Performed By: #### MARIKA CABRAL #### [facility] [address] [place] [address] Dr. Kelly Mukherjee LACTATE/LACTIC ACIDon 2021 Lactate [Moles/Vol] 1.0 mmol/L Normal 0.4-1.9 [facility] Comment on above: Performed By: #### B MP #### [facility] [address] [place] [address] Dr. Kelly Mukherjee PROF 14(COMP METB)on 022 Albumin [Mass/Vol] 3.6 g/dL Normal 3.4-5.0 [facility] Comment on above: Performed By: #### B MP #### [facility] [address] [place] [address] Dr. Kelly Mukherjee Albumin/Globulin [Mass ratio] 1.3 {ratio} Normal [facility] Comment on above: Performed By: #### B MP #### [facility] [address] [place] [address] Dr. Kelly Mukherjee ALP [Catalytic activity/Vol] 95 U/L Normal 46-116 [facility] Comment on above: Performed By: #### B MP #### [facility] [address] [place] [address] Dr. Kelly Mukherjee ALT [Catalytic activity/Vol] 53 U/L Normal 16-63 [facility] Comment on above: Performed By: #### B MP #### [facility] [address] [place] [address] Dr. Kelly Mukherjee Anion gap [Moles/Vol] 8.7 mmol/L Normal [facility] Comment on above: Performed By: #### B MP #### [facility] [address] [address] [address] Kelly Mukherjee AST [Catalytic activity/Vol] 31 U/L Normal 15-37 [facility] Comment on above: Performed By: #### B MP #### [facility] [address] [address] [address] Kelly Mukherjee Bilirubin [Mass/Vol] 0.4 mg/dL Normal 0.2-1.0 [facility] Comment on above: Performed By: #### B MP #### [facility] [address] [address] [address] Kelly Mukherjee Calcium [Mass/Vol] 8.5 mg/dL Normal 8.5-10.1 [facility] Comment on above: Performed By: #### B MP #### [facility] [address] [address] [address] Kelly Mukherjee Chloride [Moles/Vol] 106 mmol/L Normal 98-107 [facility] Comment on above: Performed By: #### B MP #### [facility] [address] [address] [address] Kelly Mukherjee CO2 [Moles/Vol] 29.1 mmol/L Normal 21.0-32.0 [facility] Comment on above: Performed By: #### B MP #### [facility] [address] [address] [address] Kelly Mukherjee Creatinine [Mass/Vol] 1.07 mg/dL Normal 0.70-1.30 [facility] Comment on above: Performed By: #### B MP #### [facility] [address] [address] [address] Kelly Mukherjee EGFR-AF MOSOTHO >60 Normal >=60 [facility] Comment on above: Performed By: #### B MP #### [facility] [address] [address] [address] Kelly Mukherjee EGFR-NON AF [place]HO >60 Normal >=60 [facility] Comment on above: Performed By: #### B MP #### [facility] [address] [address] [address] Kelly Mukherjee Globulin (S) [Mass/Vol] 2.8 g/dL Normal [facility] Comment on above: Performed By: #### B MP #### [facility] [address] [place] [address] Dr. Kelly Mukherjee Glucose [Mass/Vol] 208 mg/dL Critically high 74-106 [facility] Comment on above: Performed By: #### B MP #### [facility] [address] [place] [address] Dr. Kelly Mukherjee Potassium [Moles/Vol] 3.8 mmol/L Normal 3.5-5.1 [facility] Comment on above: Performed By: #### B MP #### [facility] [address] [place] [address] Dr. Kelly Mukherjee Protein [Mass/Vol] 6.4 g/dL Normal 6.4-8.2 [facility] Comment on above: Performed By: #### B MP #### [facility] [address] [place] [address] Dr. Kelly Mukherjee Sodium [Moles/Vol] 140 mmol/L Normal 136-145 [facility] Comment on above: Performed By: #### B MP #### [facility] [address] [place] [address] Dr. Kelly Mukherjee Urea nitrogen [Mass/Vol] 23.0 mg/dL Critically high 7.0-18.0 [facility] Comment on above: Performed By: #### B MP #### [facility] [address] [place] [address] Dr. Kelly Mukherjee Urea nitrogen/Creatinine [Mass ratio] 21.5 mg/mg Normal [facility] Comment on above: Performed By: #### B MP #### [facility] [address] [place] [address] Dr. Kelly Mukherjee PROF CHEM 8 (BAS METB)on Anion gap [Moles/Vol] 10.1 mmol/L Normal [facility] Comment on above: Performed By: #### B MP #### [facility] [address] [address] [address] Kelly Mukherjee Calcium [Mass/Vol] 8.2 mg/dL Critically low 8.5-10.1 [facility] Comment on above: Performed By: #### B MP #### [facility] [address] [place] [address] Dr. Kelly Mukherjee Chloride [Moles/Vol] 107 mmol/L Normal 98-107 [facility] Comment on above: Performed By: #### B MP #### [facility] [address] [place] [address] Dr. Kelly Mukherjee CO2 [Moles/Vol] 27.6 mmol/L Normal 21.0-32.0 [facility] Comment on above: Performed By: #### B MP #### [facility] [address] [place] [address] Dr. Kelly Mukherjee Creatinine [Mass/Vol] 0.93 mg/dL Normal 0.70-1.30 [facility] Comment on above: Performed By: #### B MP #### [facility] [address] [place] [address] Dr. Kelly Mukherjee EGFR-AF MOSOTHO >60 Normal >=60 [facility] Comment on above: Performed By: #### B MP #### [facility] [address] [place] [address] Dr. Kelly Mukherjee EGFR-NON AF [place]HO >60 Normal >=60 [facility] Comment on above: Performed By: #### B MP #### [facility] [address] [place] [address] Dr. Kelly Mukherjee Glucose [Mass/Vol] 153 mg/dL Critically high 74-106 [facility] Comment on above: Performed By: #### B MP #### [facility] [address] [place] [address] Dr. Kelly Mukherjee Potassium [Moles/Vol] 3.7 mmol/L Normal 3.5-5.1 [facility] Comment on above: Performed By: #### B MP #### [facility] [address] [place] [address] Dr. Kelly Mukherjee Sodium [Moles/Vol] 141 mmol/L Normal 136-145 [facility] Comment on above: Performed By: #### B MP #### [facility] [address] [place] [address] Dr. Kelly Mukherjee Urea nitrogen [Mass/Vol] 17.0 mg/dL Normal 7.0-18.0 [facility] Comment on above: Performed By: #### B MP #### [facility] [address] [place] [address] Dr. Kelly Mukherjee Urea nitrogen/Creatinine [Mass ratio] 18.3 mg/mg Normal [facility] Comment on above: Performed By: #### B MP #### [facility] [address] [place] [address] Dr. Kelly Mukherjee URINE MICROSCOPIC ONLYon BACTERIA MODERATE Abnormal NONE SEEN [facility] Comment on above: Performed By: #### Javy RUR UMICRO #### [facility] [address] [place] [address] Dr. Kelly Mukherjee Bacteria identified Cx Nom (U) INDICATED Normal [facility] Comment on above: Performed By: #### Javy RUR UMICRO #### [facility] [address] [place] [address] Dr. Kelly Mukherjee CAST NONE SEEN Normal NONE SEEN [facility] Comment on above: Performed By: #### E RUR, UMICRO #### [facility] [address] [place] [address] Dr. Kelly Mukherjee Crystals LM Nom (Urine sed) NONE SEEN Normal NONE SEEN [facility] Comment on above: Performed By: #### E RUR, UMICRO #### [facility] [address] [place] [address] Dr. Kelly Mukherjee Epithelial cells LM Ql (Urine sed) NONE SEEN Normal NONE SEEN /RARE [facility] Comment on above: Performed By: #### E RUR, UMICRO #### [facility] [address] [place] [address] Dr. Kelly Mukherjee MUCOUS NONE SEEN Normal NONE SEEN [facility] Comment on above: Performed By: #### E RUR, UMICRO #### [facility] [address] [place], [place] [address] Dr. Kelly Mukherjee RBC NONE SEEN Abnormal 0-2 [facility] Comment on above: Performed By: #### E CAITY VAZQUEZRO #### [facility] [address] [place], [place] [address] Dr. Kelly Mukherjee WBC 2-5 Abnormal NONE SEEN [facility] Comment on above: Performed By: #### E MARIKA VAZQUEZ #### [facility] [address] [address] [address] Kelly Mukherjee XR CHEST 1 Von [...] KIA JENNINGS Date: 2022-05-03 00:05 Normal [facility] MRI BRAIN WO CONon MRI BRAIN WO CON EXAMINATION: MRI BRA IN WO CON, 04/19/2022 12:28 PM EDT HISTORY: [...] BLANCO Date: 2022-04-19 20:11 Normal [facility] ECHOCARDIO M/2D COMPLETEon 0 03-27-2022 ECHOCARDIO M/2D COMPLETE Patient: BRIAN GOULD Exam Date: 03/27/2022 : 1945 Gender:M Ordering : DR JUAN A COX D.O. Admission #: [id number] Family : Order #: [id number] CLICK HERE TO VIEW EXAM ECHOCARDIOGRAM REPORT [...] Area(A4C): 20.80 cm2 Left Atrium Systolic Volume(A2C): 96965 mm3 Left Atrium Systolic Volume(A4C): 70392 mm3 Mitral Valve MV E to A Ratio: 1.30 Deceleration [place]: 3680 mm/s2 Mitral Valve A-Wave Peak Velocity: 65.60 cm/s Mitral Valve E-Wave Peak Velocity: 84.40 cm/s Right Ventricle RV Internal Diastolic Dimension: 3.10 cm Aorta AO Root Diam: 3.30 cm Aortic Valve AoV Area (Peak [place]): 2.40 cm2 Deceleration [place]: 541 mm/s2 Pressure Half-Time: 1.59 s Peak [...] on 03/29/2022 at 19:07 Normal [facility] NM STRESS/REST MULTIon 03-09 NM STRESS/REST MULTI Patient: ANH GOULD Exam Date: 03/09/2022 : 1945 Gender:M Ordering : DR JUAN A COX D.O. Admission #: [id number] Family : Order #: [id number] CLICK HERE TO VIEW EXAM RADIOLOGY REPORT [...] Olson M.D. on 03/10/2022 at 09:38 Normal [facility] BNPon 02-15-2022 Natriuretic peptide B (Bld) [Mass/Vol] 400.0 pg/mL Normal <=1,800.0 [facility] Comment on above: Performed By: #### B MP #### [facility] [address] [place] [address] Dr. Kelly Mukherjee CARDIAC BARRON ADMITon 022 CK [Catalytic activity/Vol] 22 U/L Critically low 39-308 [facility] Comment on above: Performed By: #### B MP #### [facility] [address] [address] [address] Kelly Mukherjee CK.MB [Mass/Vol] ng/mL Normal <=3.60 [facility] Comment on above: Performed By: #### B MP #### [facility] [address] [address] [address] Kelly Mukherjee HSTROP 6.8 pg/mL Normal 4.0-76.1 [facility] Comment on above: Result Comment: CUT- OFF POINTS HAVE BEEN ESTABLISHED BASED ON THE FOURTH UNIVERSAL DEFINITIONS OF MYOCARDIAL INFARCTION. THE UPPER REFERENCE LIMIT (URL) OF TROPONIN, DEFINED THE 99TH PERCENTILE OF cTnI DISTRIBUTION IN A REFERENCE POPULATION, HAS BEEN CONFIRMED THE DECISION THRESHOLD FOR [place] DIAGNOSIS. Performed By: #### B MP #### [facility] [address] [place] [address] Dr. Kelly Mukherjee DEBBIE 39 ng/mL Normal 16-96 [facility] Comment on above: Performed By: #### B MP #### [facility] [address] [place] [address] Dr. Kelly Mukherjee CBC AUTO DIFFon 02-15-2022 BASO # 0.0 103/ul Normal 0.0-0.1 [facility] Comment on above: Performed By: #### B MP #### [facility] [address] [place] [address] Dr. Kelly Mukherjee Basophils/100 WBC (Bld) 0.3 % Normal 0.2-2.0 [facility] Comment on above: Performed By: #### B MP #### [facility] [address] [place] [address] Dr. Kelly Mukherjee EO # 0.1 103/ul Normal 0.0-0.7 [facility] Comment on above: Performed By: #### B MP #### [facility] [address] [place] [address] Dr. Kelly Mukherjee Eosinophils/100 WBC (Bld) 2.0 % Normal 0.9-7.0 [facility] Comment on above: Performed By: #### B MP #### [facility] [address] [place] [address] Dr. Kelly Mukherjee Erythrocyte distribution width (RBC) [Ratio] 15.4 % Critically high 11.0-15.0 [facility] Comment on above: Performed By: #### B MP #### [facility] [address] [place] [address] Dr. Kelly Mukherjee Hematocrit (Bld) [Volume fraction] 31.9 % Critically low 42.0-54.0 [facility] Comment on above: Performed By: #### B MP #### [facility] [address] [place] [address] Dr. Kelly Mukherjee Hemoglobin (Bld) [Mass/Vol] 10.7 g/dL Critically low 14.0-18.0 [facility] Comment on above: Performed By: #### B MP #### [facility] [address] [place] [address] Dr. Kelly Mukherjee IG # 0.01 10e3/ul Normal 0.00-0.03 [facility] Comment on above: Performed By: #### B MP #### [facility] [address] [place] [address] Dr. Kelly Mukherjee IG % 0.3 % Normal 0.0-0.5 [facility] Comment on above: Performed By: #### B MP #### [facility] [address] [place] [address] Dr. Kelly Mukherjee LYMPH # 0.6 103/ul Critically low 1.2-3.8 [facility] Comment on above: Performed By: #### B MP #### [facility] [address] [place] [address] Dr. Kelly Mukherjee Lymphocytes/100 WBC (Bld) 15.9 % Critically low 20.5-60.0 [facility] Comment on above: Performed By: #### B MP #### [facility] [address] [place] [address] Dr. Kelly Mukherjee MANUAL DIFF REQ NO Normal [facility] Comment on above: Performed By: #### B MP #### [facility] [address] [place] [address] Dr. Kelly Mukherjee MCH (RBC) [Entitic mass] 33.8 pg Normal 25.9-34.0 [facility] Comment on above: Performed By: #### B MP #### [facility] [address] [place] [address] Dr. Kelly Mukherjee MCHC (RBC) [Mass/Vol] 33.5 g/dL Normal 29.9-35.2 [facility] Comment on above: Performed By: #### B MP #### [facility] [address] [address] [address] Kelly Mukherjee MCV (RBC) [Entitic vol] 100.6 fL Critically high 80.0-94 .0 [facility] Comment on above: Performed By: #### B MP #### [facility] [address] [address] [address] Kelly Mukherjee MONO # 0.2 103/ul Critically low 0.3-0.8 [facility] Comment on above: Performed By: #### B MP #### [facility] [address] [address] [address] Kelly Mukherjee Monocytes/100 WBC (Bld) 4.9 % Normal 1.7-12.0 [facility] Comment on above: Performed By: #### B MP #### [facility] [address] [place] [address] Dr. Kelly Mukherjee NEUT # 2.7 103/ul Normal 1.4-6.5 [facility] Comment on above: Performed By: #### B MP #### [facility] [address] [place] [address] Dr. Kelly Mukherjee Neutrophils/100 WBC (Bld) 76.6 % Critically high 43.0-75.0 [facility] Comment on above: Performed By: #### B MP #### [facility] [address] [place] [address] Dr. Kelly Mukherjee Platelet mean volume (Bld) [Entitic vol] 10.4 fL Normal 9.5-13.5 [facility] Comment on above: Performed By: #### B MP #### [facility] [address] [place] [address] Dr. Kelly Mukherjee PLT 72 103/ul Critically low 150-450 [facility] Comment on above: Performed By: #### B MP #### [facility] [address] [place] [address] Dr. Kelly Mukherjee RBC 3.17 106/ul Critically low 4.70-6.10 [facility] Comment on above: Performed By: #### B MP #### [facility] [address] [place] [address] Dr. Kelly Mukherjee WBC 3.5 103/ul Critically low 4.0-11.0 [facility] Comment on above: Performed By: #### B MP #### [facility] [address] [address] [address] HEAD WO CONon [...] CELINE COLVIN Date: 2022-02-15 15:45 Normal [facility] PROF 14(COMP METB)on 022 Albumin [Mass/Vol] 3.7 g/dL Normal 3.4-5.0 [facility] Comment on above: Performed By: #### B MP #### [facility] [address] [address] [address] Kelly Mukherjee Albumin/Globulin [Mass ratio] 1.3 {ratio} Normal [facility] Comment on above: Performed By: #### B MP #### [facility] [address] [address] [address] Kelly Mukherjee ALP [Catalytic activity/Vol] 84 U/L Normal 46-116 [facility] Comment on above: Performed By: #### B MP #### [facility] [address] [address] [address] Kelly Mukherjee ALT [Catalytic activity/Vol] 29 U/L Normal 16-63 [facility] Comment on above: Performed By: #### B MP #### [facility] [address] [address] [address] Kelly Mukherjee Anion gap [Moles/Vol] 14.3 mmol/L Normal Th [facility] Comment on above: Performed By: #### B MP #### [facility] [address] [address] [address] Kelly Mukherjee AST [Catalytic activity/Vol] 15 U/L Normal 15-37 [facility] Comment on above: Performed By: #### B MP #### [facility] [address] [address] [address] Kelly Mukherjee Bilirubin [Mass/Vol] 0.5 mg/dL Normal 0.2-1.0 [facility] Comment on above: Performed By: #### B MP #### [facility] [address] [place] [address] Dr. Kelly Mukherjee Calcium [Mass/Vol] 9.0 mg/dL Normal 8.5-10.1 [facility] Comment on above: Performed By: #### B MP #### [facility] [address] [place] [address] Dr. Kelly Mukherjee Chloride [Moles/Vol] 105 mmol/L Normal 98-107 [facility] Comment on above: Performed By: #### B MP #### [facility] [address] [place] [address] Dr. Kelly Mukherjee CO2 [Moles/Vol] 27.0 mmol/L Normal 21.0-32.0 [facility] Comment on above: Performed By: #### B MP #### [facility] [address] [place] [address] Dr. Kelly Mukherjee Creatinine [Mass/Vol] 0.90 mg/dL Normal 0.70-1.30 [facility] Comment on above: Performed By: #### B MP #### [facility] [address] [place] [address] Dr. Kelly Mukherjee EGFR-AF MOSOTHO >60 Normal >=60 [facility] Comment on above: Performed By: #### B MP #### [facility] [address] [place] [address] Dr. Kelly Mukherjee EGFR-NON AF MOSOTHO >60 Normal >=60 [facility] Comment on above: Performed By: #### B MP #### [facility] [address] [place] [address] Dr. Kelly Mukherjee Globulin (S) [Mass/Vol] 2.9 g/dL Normal [facility] Comment on above: Performed By: #### B MP #### [facility] [address] [place] [address] Dr. Kelly Mukherjee Glucose [Mass/Vol] 234 mg/dL Critically high 74-106 [facility] Comment on above: Performed By: #### B MP #### [facility] [address] [place] [address] Dr. Kelly Mukherjee Potassium [Moles/Vol] 4.3 mmol/L Normal 3.5-5.1 [facility] Comment on above: Performed By: #### B MP #### [facility] [address] [place] [address] Dr. Kelly Mukherjee Protein [Mass/Vol] 6.6 g/dL Normal 6.4-8.2 [facility] Comment on above: Performed By: #### B MP #### [facility] [address] [place] [address] Dr. Kelly Mukherjee Sodium [Moles/Vol] 142 mmol/L Normal 136-145 [facility] Comment on above: Performed By: #### B MP #### [facility] [address] [place] [address] Dr. Kelly Mukherjee Urea nitrogen [Mass/Vol] 27.0 mg/dL Critically high 7.0-18.0 [facility] Comment on above: Performed By: #### B MP #### [facility] [address] [place] [address] Dr. Kelly Mukherjee Urea nitrogen/Creatinine [Mass ratio] 30.0 mg/mg Normal [facility] Comment on above: Performed By: #### B MP #### [facility] [address] [place] [address] Dr. Kelly Mukherjee PROTIMEon 02-15-2022 INR Coag (PPP) [Relative time] 1.03 {INR} Normal [facility] Comment on above: Performed By: #### C VDTBH #### [facility] [address] [place] [address] Dr. Kelly Mukherjee INR GUIDELINES SEE BELOW Normal [facility] Comment on above: Result Comment: JULIANA RED INR: 2.0 - 3.0 CONDITIONS NOT LISTED BELOW 2.5 - 3.5 FOR PROSTHETIC HEART VALVE REPLACEMENT 2.5 - 3.5 RECURRENT THROMBOSIS Performed By: #### C VDTBH #### [facility] [address] [place] [address] Dr. Kelly Mukherjee PT Coag (PPP) [Time] 11.1 s Normal 9.0-11.6 [facility] Comment on above: Performed By: #### C VDTBH #### [facility] [address] [place] [address] Dr. Kelly Mukherjee PTTon 02-15-2022 aPTT Coag (Bld) [Time] 26.9 s Normal 22.3-36.[address] [facility] Comment on above: Performed By: #### C VDTBH #### [facility] [address] [place] [address] Dr. Kelly Mukherjee XR CHEST 1 Von 02-15-2022 XR CHEST 1 V EXAMINATION: XR CHES T 1 V HISTORY: SHORTNESS OF BREATH , [...] OLSON Date: 2022-02-15 15:49 Normal [facility] Vital Signs Date Time Vital Sign Value Performing Clinician Facility 10-10-2024 13:37-0500 Body height 172.72 cm [facility] 10-10-2024 13:37-0500 Body mass index (BMI) [Ratio] 23.8 kg/m2 [facility] 10-10-2024 13:37-0500 Body weight 71.21 kg [facility] 10-10-2024 13:37-0500 Diastolic blood pressure 89 mm[Hg] [facility] 10-10-2024 13:37-0500 Heart rate 67 /min [facility] 10-10-2024 13:37-0500 Respiratory rate 12 /min [facility] 10-10-2024 13:37-0500 Systolic blood pressure 139 mm[Hg] [facility] 09-10-2024 09:54-0500 Body height 172.72 cm [facility] 09-10-2024 09:54-0500 Body mass index (BMI) [Ratio] 24 kg/m2 [facility] 09-10-2024 09:54-0500 Body weight 71.72 kg [facility] 09-10-2024 09:54-0500 Diastolic blood pressure 89 mm[Hg] [facility] 09-10-2024 09:54-0500 Heart rate 61 /min [facility] 09-10-2024 09:54-0500 Respiratory rate 12 /min [facility] 09-10-2024 09:54-0500 Systolic blood pressure 139 mm[Hg] [facility] 08-04-2024 11:26-0400 Body height 172.7 cm Kristen FLORES Work Phone: [facility] 08-04-2024 11:26-0400 Body mass index (BMI) [Ratio] 23.57 kg/m2 Kristen FLORES Work Phone: [facility] 08-04-2024 11:26-0400 Body weight 70.31 kg Kristen FLORES Work Phone: [facility] 08-04-2024 11:26-0400 Diastolic blood pressure 82 mm[Hg] Kristen FLORES Work Phone: [facility] 08-04-2024 11:26-0400 Heart rate 60 /min Kristen FLORES Work Phone: [facility] 08-04-2024 11:26-0400 Respiratory rate 16 /min Kristen FLORES Work Phone: [facility] 08-04-2024 11:26-0400 SaO2% (BldA) [Mass fraction] 100 % Kristen FLORES Work Phone: [facility] 08-04-2024 11:26-0400 Systolic blood pressure 140 mm[Hg] Kristen FLORES Work Phone: [facility] 06-19-2024 11:52-0400 Body mass index (BMI) [Ratio] 22.87 kg/m2 Alexandra Garcia [employer] Work Phone: [facility] 06-19-2024 11:52-0400 Body weight 68.22 kg Alexandra Garcia [employer] Work Phone: [facility] 06-19-2024 11:52-0400 Diastolic blood pressure 53 mm[Hg] Alexandra Garcia [employer] Work Phone: [facility] 06-19-2024 11:52-0400 Heart rate 67 /min Alexandra Garcia [employer] Work Phone: [facility] 06-19-2024 11:52-0400 Systolic blood pressure 163 mm[Hg] Alexandra Garcia [employer] Work Phone: [facility] 06-10-2024 13:45-0400 Body height 172.72 cm [facility] 06-10-2024 13:45-0400 Body mass index (BMI) [Ratio] 23.1 kg/m2 [facility] 06-10-2024 13:45-0400 Body weight 69.05 kg [facility] 06-10-2024 13:45-0400 Diastolic blood pressure 89 mm[Hg] [facility] 06-10-2024 13:45-0400 Heart rate 61 /min [facility] 06-10-2024 13:45-0400 Respiratory rate 20 /min [facility] 06-10-2024 13:45-0400 Systolic blood pressure 139 mm[Hg] [facility] 02-26-2024 14:23-0400 Body height 172.72 cm [facility] 02-26-2024 14:23-0400 Body mass index (BMI) [Ratio] 25 kg/m2 [facility] 02-26-2024 14:23-0400 Body weight 74.84 kg [facility] 02-26-2024 14:23-0400 Diastolic blood pressure 64 mm[Hg] [facility] 02-26-2024 14:23-0400 Heart rate 67 /min [facility] 02-26-2024 14:23-0400 Respiratory rate 20 /min [facility] 02-26-2024 14:23-0400 Systolic blood pressure 169 mm[Hg] [facility] 12-14-2023 11:18-0500 Body height 172.72 cm [facility] 12-14-2023 11:18-0500 Body mass index (BMI) [Ratio] 24 kg/m2 [facility] 12-14-2023 11:18-0500 Body weight 71.89 kg [facility] 12-14-2023 11:18-0500 Diastolic blood pressure 53 mm[Hg] [facility] 12-14-2023 11:18-0500 Heart rate 65 /min [facility] 12-14-2023 11:18-0500 Respiratory rate 20 /min [facility] 12-14-2023 11:18-0500 Systolic blood pressure 170 mm[Hg] [facility] 11-06-2023 13:30-0500 Body height 172.72 cm Juan A Ball Other [facility] [employer] Other 11-06-2023 13:30-0500 Body mass index (BMI) [Ratio] 24.45 kg/m2 Juan A Ball Other [facility] [employer] Other 11-06-2023 13:30-0500 Body weight 72.94 kg Juan A Ball Other [employer] Other 11-06-2023 13:30-0500 Diastolic blood pressure 88 mm[Hg] Juan A Ball Other [employer] Other 11-06-2023 13:30-0500 Respiratory rate 12 /min Juan A Ball Other [employer] Other 11-06-2023 13:30-0500 Systolic blood pressure 138 mm[Hg] Juan A Ball Other [employer] Other 07-05-2023 11:30-0400 Body height 172.72 cm Juan A Ball Other [employer] Other 07-05-2023 11:30-0400 Body mass index (BMI) [Ratio] 24.87 kg/m2 Juan A Ball Other [employer] Other 07-05-2023 11:30-0400 Body weight 74.21 kg Juan A Ball Other [employer] Other 07-05-2023 11:30-0400 Diastolic blood pressure 64 mm[Hg] Juan A Ball Other [employer] Other 07-05-2023 11:30-0400 Respiratory rate 16 /min Juan A Ball Other [employer] Other 07-05-2023 11:30-0400 Systolic blood pressure 136 mm[Hg] Juan A Ball Other [employer] Other 04-04-2023 15:00-0400 Body height 172.72 cm Juan A Ball Other [employer] Other 04-04-2023 15:00-0400 Body mass index (BMI) [Ratio] 25.12 kg/m2 Juan A Ball Other [employer] Other 04-04-2023 15:00-0400 Body weight 74.93 kg Juan A Ball Other [employer] Other 04-04-2023 15:00-0400 Diastolic blood pressure 63 mm[Hg] Juan A Ball Other [employer] Other 04-04-2023 15:00-0400 Respiratory rate 12 /min Juan A Ball Other [employer] Other 04-04-2023 15:00-0400 Systolic blood pressure 173 mm[Hg] Juan A Ball Other [employer] Other 01-01-2023 14:30-0400 Body height 172.72 cm Juan A Ball Other [employer] Other 01-01-2023 14:30-0400 Body mass index (BMI) [Ratio] 24.93 kg/m2 Juan A Ball Other [employer] Other 01-01-2023 14:30-0400 Body weight 74.39 kg Juan A Ball Other [employer] Other 01-01-2023 14:30-0400 Diastolic blood pressure 62 mm[Hg] Juan A Ball Other [employer] Other 01-01-2023 14:30-0400 Respiratory rate 12 /min Juan A Ball Other [employer] Other 01-01-2023 14:30-0400 Systolic blood pressure 143 mm[Hg] Juan A Ball Other [employer] Other 10-13-2022 16:30-0500 Body height 172.72 cm Juan A Ball Other [employer] Other 10-13-2022 16:30-0500 Body mass index (BMI) [Ratio] 24.63 kg/m2 Juan A Ball Other [employer] Other 10-13-2022 16:30-0500 Body weight 73.48 kg Juan A Ball Other [employer] Other 10-13-2022 16:30-0500 Diastolic blood pressure 62 mm[Hg] Juan A Ball Other [employer] Other 10-13-2022 16:30-0500 Respiratory rate 12 /min Juan A Ball Other [employer] Other 10-13-2022 16:30-0500 Systolic blood pressure 122 mm[Hg] Juan A Ball Other [employer] Other 08-30-2022 14:43-0500 Body height 170.3 cm Tricia Crespo MD Work Phone: [facility] 08-30-2022 14:43-0500 Body temperature 97.7 [degF] Tricia Crespo MD Work Phone: [facility] 08-30-2022 14:43-0500 Body weight 73.57 kg Tricia Crespo MD Work Phone: [facility] 08-30-2022 14:43-0500 Diastolic blood pressure 59 mm[Hg] Tricia Crespo MD Work Phone: [facility] 08-30-2022 14:43-0500 Heart rate 59 /min Tricia Crespo MD Work Phone: [facility] 08-30-2022 14:43-0500 Respiratory rate 18 /min Tricia Crespo MD Work Phone: [facility] 08-30-2022 14:43-0500 SaO2% (BldA) [Mass fraction] 96 % Tricia Crespo MD Work Phone: [facility] 08-30-2022 14:43-0500 Systolic blood pressure 158 mm[Hg] Tricia Crespo MD Work Phone: [facility] Encounters Encounter Date Encounter Type Care Provider Facility Start: 10-10-2024 End: 10-10-2024 ambulatory [facility] Work Phone: Start: 10-10-2024 End: 10-10-2024 Patient encounter procedure [facility] Work Phone: Start: 09-10-2024 End: 09-10-2024 Patient encounter procedure [facility] Work Phone: Start: 08-04-2024 Non-patient / Non-visit [facility] Work Phone: Start: 08-04-2024 End: 08-04-2024 Bamboo flowsheet Kristen FLORES Work Phone: [employer] [facility] Start: 08-04-2024 End: 08-04-2024 Bamboo flowsheet Kristen FLORES Work Phone: [facility] Start: 08-04-2024 End: 08-04-2024 ambulatory KRISTEN BARRERA Not Available Start: 08-04-2024 End: 08-04-2024 Office outpatient visit 15 minutes Kristen FLORES Work Phone: [facility] Comment on above: Seizure disorder (CM S/HCC) (Primary Dx); 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, psychotic disturbance, mood disturbance, or anxiety, unspecified timing of dementia onset (CMS/HCC); PINA (obstructive sleep apnea) Start: 07-30-2024 End: 07-30-2024 Telephone encounter Olivia Olivares [facility] Start: 07-29-2024 End: 07-29-2024 Orders Only Not In System Ref Prov [facility] Start: 07-09-2024 End: 07-09-2024 ambulatory DO Juan A Cox Work Phone: [facility] Comment on above: History of rectal ca ncer Start: 07-09-2024 End: 07-09-2024 Departed Referred DO Juan A Cox Work Phone: [facility] Start: 06-28-2024 Non-patient / Non-visit DO Dennis Cox Work Phone: [facility] Work Phone: Start: 06-27-2024 Non-patient / Non-visit DO Dennis Cox Work Phone: [facility] Work Phone: Start: 06-19-2024 End: 06-19-2024 ambulatory [facility] Start: 06-19-2024 End: 06-19-2024 Office outpatient new 30 minutes [facility] [employer] Work Phone: [facility] Comment on above: History of rectal ca ncer (Primary Dx); Encounter for colonoscopy due to history of colonic polyp; Fecal urgency Start: 06-10-2024 End: 06-10-2024 ambulatory [facility] Work Phone: Start: 06-10-2024 End: 06-10-2024 Patient encounter procedure [facility] Work Phone: Start: 06-07-2024 Patient encounter procedure [facility] Start: 03-17-2024 End: 03-17-2024 ambulatory KRISTEN BARRERA Not Available Start: 02-26-2024 End: 02-26-2024 ambulatory [facility] Work Phone: Start: 02-26-2024 End: 02-26-2024 Patient encounter procedure [facility] Work Phone: Start: 02-18-2024 Non-patient / Non-visit [facility] Work Phone: Start: 02-15-2024 Non-patient / Non-visit [facility] Work Phone: Start: 02-14-2024 Non-patient / Non-visit [facility] Work Phone: Start: 02-07-2024 End: 02-07-2024 ambulatory AAMIR Lloyd KAROL Not Available Start: 12-14-2023 End: 12-14-2023 Patient encounter procedure [facility] Work Phone: Start: 11-06-2023 End: 11-06-2023 ambulatory Juan A Ball Other [employer] Other Start: 11-06-2023 Office outpatient vi sit 25 minutes Juan A Ball [facility] Start: 07-17-2023 End: 07-17-2023 ambulatory Juan A Ball Other [employer] Other Start: 07-17-2023 Telephone encounter Juan A Ball [facility] Start: 07-05-2023 End: 07-05-2023 ambulatory Juan A Ball Other [employer] Other Start: 07-05-2023 Patient encounter procedure Juan A Ball [facility] Start: 04-04-2023 End: 04-04-2023 ambulatory Juan A Ball Other [employer] Other Start: 04-04-2023 Office outpatient vi sit 25 minutes Juan A Ball [facility] Start: 01-01-2023 End: 01-01-2023 ambulatory Juan A Ball Other [employer] Other Start: 01-01-2023 Office outpatient vi sit 25 minutes Juan A Ball [facility] Start: 12-14-2022 End: 12-14-2022 ambulatory Juan A Ball Other [employer] Other Start: 12-14-2022 Telephone encounter Juan A CHATMAN [facility] [facility] Start: 12-11-2022 End: 12-12-2022 ambulatory Dominic CASTELLANOS Facility: [place] Start: 12-11-2022 End: 12-11-2022 Patient encounter procedure Dominic CASTELLANOS [facility] Start: 12-08-2022 End: 12-09-[address] DOMINIC CASTELLANOS Facility:[facility] Start: 11-27-2022 End: 11-27-2022 ambulatory Juan A Cox Other [employer] Other Start: 11-27-2022 Telephone encounter Juan A CHATMAN [facility] Start: 11-07-2022 End: 11-08-2022 ambulatory KRISTEN HO Facility: Start: 10-29-2022 End: 10-29-2022 ambulatory Juan A Cox Other [employer] Other Start: 10-29-2022 Telephone encounter Juan A CHATMAN G [facility] Start: 10-20-2022 End: 10-20-2022 ambulatory Juan A Cox Other [employer] Other Start: 10-20-2022 Telephone encounter Juan A CHATMAN G [facility] Start: 10-13-2022 End: 10-13-2022 ambulatory Juan A Cox Other [employer] Other Start: 10-13-2022 Office outpatient vi sit 25 minutes Juan A Cox [facility] Start: 10-04-2022 End: 10-05-2022 ambulatory [...] encounter procedure Tricia Crespo MD Work Phone: [facility] Start: 05-08-2022 End: 05-08-[address] JUAN A COX Facility:[facility] Start: 05-03-2022 End: 05-03-[address] JUAN A COX Facility:[facility] Start: 04-19-2022 End: 04-20-2022 ambulatory KRISTEN [place] Facility:[facility] Start: 03-27-2022 End: 03-28-[address] JUAN A COX Facility:[facility] Start: 03-09-2022 End: 03-10-[address] JUAN A COX Facility:[facility] Start: 02-15-2022 End: 02-15-[address] JUAN A COX Facility:[facility] Start: 07-17-2018 End: 07-18-2018 Patient encounter DEFAULT PHYSICIAN Facility:[facility] Start: 09-18-2017 End: 09-19-2017 Patient encounter DEFAULT PHYSICIAN Facility:[facility] Procedures Date Procedure Procedure Detail Performing Clinician Start: 07-29-2024 GLUCOSE 1 HOUR Not In S ystem Ref Prov Start: 07-09-2024 Level i surg patholo gy gross examination only Not In System Ref Prov Start: 02-14-2024 Bacteria identified in Urine by Culture Start: 12-08-2022 PSA screening KRISTEN GARCIA Comment on above: Performed By: #### [facility] #### [facility] [address] [place] [address] Dr. 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 Start: 06-19-2025 [facility]ening [facility] Start: 12-22-2024 End: 12-22-2024 Patient encounter procedure 12/22/2024 1:20 PM EDT Office Visit [facility] [employer] [address] [place] [id number] Kristen Barrera PA [address] [place] [address] [facility] [employer] [address] Start: 08-04-2024 End: 08-04-2025 Oxcarbazepine level Oxcarbazepine level Lab Routine Seizure disorder (CMS/HCC) Expected: 08/04/2024 (Approximate), Expires: 08/04/2025 [facility]: Comment on above: Expected: 08/04/2024 (Approximate), Expires: 08/04/2025 Start: 07-09-2024 [facility] Start: 06-11-2024 Screening for malign ant neoplasm of colon [facility] Start: 06-08-2024 COVID-19 Vaccine ( season) COVID-19 Vaccine ( season) [facility] Start: 06-08-2024 Influenza vaccination [facility] Start: 06-12-2023 DTaP,Tdap and Td Vaccines (4 - Td or Tdap) DTaP,Tdap and Td Vaccines (4 - Td or Tdap) [facility] Start: 02-27-2023 End: 04-29-2023 CBC W Auto Differential panel - Blood CBC + DIFF Lab Routine Splenomegaly Expected: 02/27/2023 (Approximate), Expires: 04/29/2023 [facility] Work Phone: Comment on above: Expected: 02/27/2023 (Approximate), Expires: 04/29/2023 Start: 02-27-2023 End: 04-29-2023 Comprehensive metabolic 2000 panel - Serum or Plasma COMP METABOLIC PANEL Lab Routine Splenomegaly Expected: 02/27/2023 (Approximate), Expires: 04/29/2023 [facility] Work Phone: Comment on above: Expected: 02/27/2023 (Approximate), Expires: 04/29/2023 Start: 08-30-2022 End: 10-30-2022 Cobalamin (Vitamin B12) [Mass/volume] in Serum or Plasma [facility] Work Phone: Comment on above: Expected: 08/30/2022 , Expires: 10/30/2022 Start: 08-30-2022 End: 08-30-2023 Ferritin [Mass/volume] in Serum or Plasma [facility] Work Phone: Comment on above: Expected: 08/30/2022 , Expires: 08/30/2023 Start: 08-30-2022 End: 08-30-2023 Iron and Iron binding capacity panel - Serum or Plasma [facility] Work Phone: Comment on above: Expected: 08/30/2022 , Expires: 08/30/2023 Start: 10-08-2021 ADVANCE DIRECTIVE DISCUSSION ADVANCE DIRECTIVE DISCUSSION [facility] Start: 10-08-2021 DEPRESSION ASSESSMENT DEPRESSION ASS ESSMENT [facility] Start: 02-01-2021 COVID-19 VACCINE (3 - Booster for Moderna series) COVID-19 VACCINE (3 - Booster for Moderna series) [facility] Start: 2011 Abdominal aortic aneurysm screening Abdominal Aortic Aneurysm (AAA) Screen [facility] Start: 2011 Fall Risk Screening Fall Risk Screen ing [facility] Start: 2011 PNEUMOCOCCAL: 65+ (1 - PCV) PNEUMOCOCCAL: 65+ (1 - PCV) [facility] Start: 1996 Administration of varicella zoster vaccine Zoster (Shingles) Vaccine (1 of 2) [facility] [employer] [facility] Start: 1996 SHINGRIX VACCINE (1 of 2) SHINGRIX VACCINE (1 of 2) [facility] Start: 1965 Urine microalbumin profile DTAP,TDAP,TD (1 - Tdap) [facility] Start: 1964 ANNUAL PCP TEAM STAKE SETTER GAYLA DISEASE VISIT ANNUAL PCP TEAM CHRONIC DISEASE VISIT [facility] Start: 1964 Hepatitis B surface antibody level LDL CHOLESTEROL [facility] Start: 1958 Depression Screening Depression Scre ening [facility] Start: 1946 Medicare Annual Well ness Visit Medicare Annual Wellness Visit [facility] Bacteria identified in Urine by Culture [facility] End: 06-19-2025 Colonoscopy Colonoscopy GI Routine History of rectal cancer 1 Occurrences starting 06/19/2024 until 06/19/2025 [employer] Work Phone: Comment on above: 1 Occurrences starti ng 06/19/2024 until 06/19/2025 Comprehensive metabo lic 2000 panel - Serum or Plasma [facility] Immunizations Immunization Date Immunization Notes Care Provider Milka puga 09-10-2024 influenza, high dose seasonal, preservative-free [facility] 07-05-2023 influenza virus vaccine, unspecified formulation [facility] 07-05-2023 influenza, high dose seasonal, preservative-free Juan A Cox Other [employer] Other 07-11-2022 influenza (aIIV4) vaccine, age 65+ yr, quadrivalent, PF (FLUAD QUADRIVALENT) Tricia Crespo MD Work Phone: [facility] 07-11-2022 influenza virus vaccine, split virus (incl. purified surface antigen) Juan A Cox Other [employer] Other 07-11-2022 influenza virus vaccine, unspecified formulation Dominic CASTELLANOS [facility] 07-11-2022 influenza, high dose seasonal, preservative-free Juan A Cox Other [facility] [employer] Other 07-19-2021 influenza virus vaccine, split virus (incl. purified surface antigen) Juan A Cox Other [employer] Other 07-19-2021 influenza virus vaccine, unspecified formulation [facility] 07-08-2021 influenza virus vaccine, unspecified formulation [facility] 12-07-2020 COVID-19 original vaccine, full dose, monovalent (MODERNA) Tricia Crespo MD Work Phone: [facility] 12-06-2020 SARS-CoV-2 (COVID-19 ) mRNA-1273 vaccine [employer] [facility] 11-09-2020 COVID-19 original vaccine, full dose, monovalent (MODERNA) Tricia Crespo MD Work Phone: [facility] 11-08-2020 SARS-CoV-2 (COVID-19 ) mRNA-[id number] vaccine [employer] [facility] 09-01-2020 pneumococcal conjuga te vaccine, 13 valent Kristen FLORES Work Phone: [facility] 07-30-2020 influenza virus vaccine, split virus (incl. purified surface antigen) Juan A Cox Other [facility] [employer] Other 07-30-2020 influenza virus vaccine, unspecified formulation Dominic Sosei [facility] 07-30-2020 influenza, injectabl e, quadrivalent, preservative free Tricia Crespo MD Work Phone: [facility] 07-21-2019 influenza virus vaccine, split virus (incl. purified surface antigen) Juan A Cox Other [facility] [employer] Other 07-21-2019 influenza virus vaccine, unspecified formulation [facility] 07-18-2018 influenza virus vaccine, split virus (incl. purified surface antigen) Juan A Blaise Other [employer] Other 07-18-2018 influenza virus vaccine, unspecified formulation Dominic RICE [facility] 07-18-2018 Seasonal trivalent influenza vaccine, adjuvanted, preservative free Tricia Crespo MD Work Phone: [facility] 08-22-2017 influenza virus vaccine, split virus (incl. purified surface antigen) Juan A Cox Other [facility] [employer] Other 08-22-2017 influenza virus vaccine, unspecified formulation [facility] 08-20-2017 influenza virus vaccine, unspecified formulation Dominic Sosei [facility] 08-20-2017 Seasonal trivalent influenza vaccine, adjuvanted, preservative free Tricia Crespo MD Work Phone: [facility] 06-20-2016 influenza virus vaccine, split virus (incl. purified surface antigen) Juan A Blaise Other [facility] [employer] Other 06-20-2016 influenza virus vaccine, unspecified formulation [facility] 09-03-2015 influenza virus vaccine, unspecified formulation Dominic RICE [facility] 09-03-2015 influenza, injectabl e, quadrivalent, preservative free Tricia Crespo MD Work Phone: [facility] 09-03-2015 pneumococcal conjuga te vaccine, 13 valent Juan A Cox Other [facility] 08-19-2014 influenza virus vaccine, unspecified formulation Dominic RICE [facility] 08-19-2014 influenza, injectabl e, quadrivalent, contains preservative Tricia Crespo MD Work Phone: [facility] 08-20-2013 influenza virus vaccine, unspecified formulation Dominic CASTELLANOS [facility] 08-20-2013 influenza, seasonal, injectable Tricia Crespo MD Work Phone: [facility] 08-20-2013 pneumococcal polysaccharide vaccine, 23 valent Juan A Cox Other [facility] 06-12-2013 tetanus and diphther ia toxoids, adsorbed, preservative free, for adult use (5 Lf of tetanus toxoid and 2 Lf of diphtheria toxoid) Juan A Cox Other [facility] 06-19-2012 tetanus and diphther ia toxoids, adsorbed, preservative free, for adult use (5 Lf of tetanus toxoid and 2 Lf of diphtheria toxoid) Juan A Cox Other [facility] 04-09-2002 diphtheria, tetanus toxoids and acellular pertussis vaccine, unspecified formulation Juan A Cox Other [facility] Payers Date Payer Category Payer Self-pay [id number] 2018 Managed Care Other (unspecified) [facility] [id number] 2015 Private Health Insurance [id number] 2011 Medicare [id number] 1959 Medicare [id number] 1959 Unknown [id number] 1946 Unknown [id number] [id number] .647 1946 Unknown [id number] 2.16.840.1.924148.3.579.2 .647 1946 Unknown [id number] 2.16.840.1.265674.3.579.2 .593 1946 Unknown [id number] 2.16.840.1.225300.3.579.2 .593 1946 Unknown [id number] 2.16.840.1.270118.3.579.2 .593 1946 Unknown [id number] 2.16.840.1.918832.3.579.2 .593 1946 Unknown [id number] 2.16.840.1.078022.3.579.2 .593 1946 Unknown [id number] 2.16.840.1.075957.3.579.2 .593 1946 Unknown [id number] 2.16.840.1.433514.3.579.2 .593 1946 Unknown [id number] 2.16.840.1.228047.3.579.2 .593 1946 Unknown [id number] 2.16.840.1.027789.3.579.2 .593 1946 Unknown [id number] 2.16.840.1.998676.3.579.2 .727 1946 Unknown [id number] 2.16.840.1.116057.3.579.2 .1286 1946 Unknown [id number] 2.16.840.1.757363.3.579.2 .1259 1946 Unknown [id number] 2.16.840.1.308453.3.579.2 .1259 1946 Unknown [id number] 2.16.840.1.171681.3.579.2 .1259 Unknown Unknown [id number] 2.16.840.1.679698.3.579.2 .531 Social History Date Type Detail Facility Start: 06-02-2019 End: 08-30-2022 Tobacco smoking status NHIS Ex-smoker [facility] History of tobacco use Current smoker [facility] History of tobacco use Passive smoker [facility] Start: 06-02-2019 End: 08-30-2022 Tobacco use and exposure Smokeless tobacco non-user [facility] Start: 08-30-2022 Alcohol intake Current non-dr vendor management specialist of alcohol (finding) [facility] Start: 1945 Sex Assigned At Not on file C [facility] Start: 08-20-2022 End: 08-30-2022 Exposure to SARS-CoV-2 (event) Not sure [facility] Start: 11-18-2020 End: 03-17-2024 Sex Assigned At [facility] Start: 1945 Sex Assigned At Male F [facility] History of tobacco use Cigarette Smoker [facility] Start: 03-17-2024 End: 08-04-2024 Alcoholic beverage intake Lifetime non-drinker (finding) [facility] Start: 11-18-2020 End: 03-17-2024 History of Social function [facility] Start: 03-17-2024 Tobacco Comment Age stop: 26 [facility] smoking status [facility] Unknown if ever smoked [facility] Work Phone: Start: 05-23-2019 End: 10-10-2024 Sex Male (finding) [facility] Start: 06-19-2024 Alcoholic beverage intake Ex-drinker (finding) [facility] NEGATED: Highlighted rowStart: NINF History of tobacco use Passive smoker [facility] Medical Equipment Procedure Code Equipment Code Equipment Origin al Text Equipment Identifier Dates Start: 05-21-2019 Functional Status Date Assessment Result Facility 12-11-2022 Functional Status N/A [facility] Clinical Notes 08-30-2022 to 09-10-2024 Note Date & Type Note Facility 09-10-2024 Evaluation note Diagnosis Onset Date Resolution Contusion, chest wall acute Dec 2023 9:48am Primary hypertension acute Dece mb2023 9:48am Alzheimer's dementia acute 2024 1:31pm ASHD (arteriosclerotic heart disease) acute October 10 1:31pm Elevated cholesterol acute 2024 1:31pm Pancytopenia acute October 10, 2024 1:31pm Primary hypertension acute 2024 1:31pm Type 2 diabetes mellitus with hyperglycemia acute October 10, 2024 1:31pm [facility] Work Phone: [phone] 600-456210-28-2024 History of Present illness Narrative* SANDRA Fisher - 08/04/2024 11:20 AM EDT Subjective Brian Gould is a 79 y.o. year old male Chief Complaint Patient presents with Alzheimer's Disease Past Medical History: Diagnosis Date Colon cancer (CMS/HCC) Dementia (CMS/HCC) Diabetes mellitus, type II (CMS/HCC) Heart abnormality Hypersomnia Hypertension (CMS/HCC) Insomnia Obstructive sleep apnea Seizure (CMS/HCC) Past Surgical History: Procedure Laterality Date CHOLECYSTECTOMY COLON SURGERY CORONARY ARTERY BYPASS GRAFT x 4 FINGER AMPUTATION HEMORRHOID SURGERY HERNIA REPAIR KIDNEY STONE SURGERY No family history on file. Social History Tobacco Use Smoking status: Former Types: Cigarettes Passive exposure: Never Smokeless tobacco: Not on file Tobacco comments: Age stop: 26 Substance Use Topics Alcohol use: Never Medication Documentation Review Audit Reviewed by Concha Milligan MA (Supervisor Waterworks) on 03/17/24 at 1135 Medication Order Taking? Sig Documenting Provider Last Dose Status allopurinol (Zyloprim) 300 MG tablet [id number] No Aamir Watkins DPM Taking Active amLODIPine (Norvasc) 5 MG tablet [id number] No Aamir Watkins, DPM Taking Active citalopram (CeleXA) 20 MG tablet [id number] No Aamir Watkins, DPM Taking Active donepezil (Aricept) 10 MG tablet [id number] No TAKE 1 TABLET AT BEDTIME SANDRA Fisher Taking Active doxycycline (Vibramycin) 100 MG capsule [id number] No TAKE ONE CAPSULE BY MOUTH ONCE DAILY FOR 7 DAYSAamir Watkins, DPM Taking Active isosorbide mononitrate ER (Imdur) 30 MG 24 hr tablet [id number] No Aamir Watkins, DPM Taking Active losartan (Cozaar) 50 MG tablet [id number] No Aamir Watkins, DPM Taking Active Memantine HCl ER 28 MG capsule sustained-release 24 hr [id number] No TAKE 1 CAPSULE ONE TIME DAILY SANDRA Fisher Taking Active NovoLOG MIX 70/30 FLEXPEN (70-30) 100 UNIT/ML injection [id number] No Aamir Watkins, DPM Taking Active OXcarbazepine (Trileptal) 300 MG tablet [id number] No Aamir Watkins, DPM Taking Active simvastatin (Zocor) 20 MG tablet [id number] No Take 20 mg by mouth at bedtime Aamir Watkins, DPM Taking Active HPI Seizure -on Trileptal -denies any missed doses - states he had a small shaking episode involving both arms and then sudden onset of headache -episode lasted a couple minutes -denies any loss of consciousness Memory Loss -on Aricept and Namenda -memory is about the same -more short term memory -forgets recent conversations and events - states he asks the same question multiple times -sleeps ok at night - reports he sleeps quite often -states some days he sleeps all day and other days he does not -denies depression, anxiety, mood swings, or agitation -does not drive anymore -denies any trouble with ADLs Tremor - states his tremors have been very good -only trigger is when he gets a chill PINA -sleeping well at night - states he has been sleeping a lot here lately -averages 8-10 hours a night -naps often during the day -he does not use his CPAP anymore Paresthesia -follows with podiatry -numbness sensation in MICHELLE feet that comes and goes -admits to some imbalance -admits to a recent fall - states he is very unsteady on his feet ROS Review of Systems Constitutional: Positive for chills and fatigue. Respiratory: Negative. Cardiovascular: Negative. Gastrointestinal: Negative. Musculoskeletal: Positive for gait problem. Neurological: Positive for tremors, seizures, weakness and numbness. Objective Visit Vitals BP 140/82 Pulse 60 Resp 16 Ht 5' 8 Wt 155 lb SpO2 100% BMI 23.57 kg/m Smoking Status Former BSA 1.84 m Neurological Exam Mental Status Awake, alert and oriented to person, place and time. Memory: Impaired . Speech is normal. Language is fluent with no aphasia. Attention and concentration are normal. Fund of knowledge is appropriate for level of education. Cranial Nerves CN II: Visual acuity is normal. Visual franco full to confrontation. CN III, IV, : Extraocular movements intact bilaterally. Normal lids and orbits bilaterally. Pupils equal round and reactive to light bilaterally. CN V: Facial sensation is normal. CN VII: Full and symmetric facial movement. CN VIII: Hearing is normal. CN XI: Shoulder shrug strength is normal. Motor Normal muscle bulk throughout. Normal muscle tone. No abnormal involuntary movements. Gait Unsteady. Motor Examination RUE Strength deltoid, biceps, triceps, wrist extensors, wrist extensors, wrist flexor, lab aide strength 5/5. LUE Strength deltoid, biceps, triceps, wrist extensors, wrist extensors, wrist flexor, lab aide strength 5/5. RLE Strength illopsoas, quadriceps, tibialis anterior, and gastrocnemius strength 5/5. LLE Strength illopsoas, quadriceps, tibialis anterior, and gastrocnemius strength 5/5. Tone Normal tone x4 extremities. Reflexes: RUE biceps reflex 2, brachioradialis reflex 2 LUE biceps reflex 2, brachioradialis reflex 2 RLE knee reflex 1, ankle reflex 1 LLE knee reflex 1, ankle reflex 1 Heart: Regular rate and rhythm very mild and intermittent tremor with antigravity no cogwheel rigidity slight bradykinesia. Assessment and Plan Diagnoses and all orders for this visit: 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, psychotic disturbance, mood disturbance, or anxiety, unspecified timing of dementia onset ([facility]) He continues with memory troubles due to Alzheimer's dementia. MOCA 11/26/2023 was 13/30. Treated with Namenda and Aricept. I advised patient to refrain from driving. His states he does not drive PINA (obstructive sleep apnea) The patient is not compliant with his CPAP as he reports that he cannot tolerate this. This likely influences his memory and is also contributing to his persistent fatigue. Seizure disorder (CMS/HCC) history of seizure disorder with focal events and treated with Trileptal. He is unable to tolerate ambulatory EEG. Trileptal level was 40 on 10/20/2022. I will update a trileptal level and consider updating EEG pending course. Tremor He has history of tremor to his bilateral hands manifested as shaking in his hands and arms bilaterally when he yawns or uses the restroom, which may be related to vasovagal response. Tremor has improved. History of syncope Patient's reports he had a syncopal episode following a hot shower and PCP has been adjusting BP medications. He has not experienced any recurrent episodes. Paresthesia Patient has been experiencing paresthesia manifested as numbness and tingling primarily in the leftfoot that occurs intermittently and often brought on after sitting for long periods of time. He denies back pain. He may have a peripheral nerve process such as lumbar radiculopathy or polyneuropathycontributing to his symptoms. He is a diabetic. He previously declined EMG. MOCA 11/26/2023: 12/28/2022: 11/29/21: 12/02/20: 2018: PET scan 2010: consistent with Alzheimer's dementia Carotid ultrasound 02/08/2023: revealed no hemodynamically significant stenosis. There was focal calcific plaque in proximal left ICA and increased resistant waveforms in all the vessels, thought to possibly be cardiac related. TCD: revealed MFVs decreased and PIs increased compared to 08/30/2010, though to be related to small vessel disease or cardiac related. Routine EEG 12/09/2021: normal. 2 hour EEG 01/04/2022: normal. PLAN I will update a trileptal level. Patient recently had blood work with his PCP and these were reviewed. Continue Aricept 10mg PO daily for memory loss Continue Namenda 28 XR PO daily for memory loss Continue trileptal 300mg 3 tabs PO BID for seizure prevention Continue with fall precautions Patient can follow up with this clinic in 3 months or sooner for new or worsening symptoms Consider updating EEG pending course [id number] Miscellaneous Notes* Telephone Encounter - Olivia Olivares CMA - 07/30/2024 10:44 AM EDT ----- Message from Dr. Jurgen Lozano, sent at 07/30/2024 7:35 AM EDT ----- Please let patient know that he had a tubular adenoma and I recommend repeat colonoscopy in 5 yearsif he so wishes even though he would be 84 years of age. Thanks, Dr. Joseph * Telephone Encounter - Olivia Olivares CMA - 07/30/2024 10:44 AM EDT While in the process of leaving patient a voicemail, patient's spouse Iman answered the phone. Spoke with Iman regarding patient's pathology results as she is an approved contact for [employer]. Iman verbally understood with no further questions. Recall to be put in chart. [facility] Tele[facility] encounter Note* Telephone Encounter - Olivia Olivares CMA - 07/30/2024 10:44 AM EDT ----- Message from Dr. Jurgen Lozano, sent at 07/30/2024 7:35 AM EDT ----- Please let patient know that he had a tubular adenoma and I recommend repeat colonoscopy in 5 yearsif he so wishes even though he would be 84 years of age. Thanks, Dr. Joseph Service Seeking [id number] Telephone encounter Note* Telephone Encounter - Olivia Olivares CMA - 07/30/2024 10:44 AM EDT While in the process of leaving patient a voicemail, patient's spouse Iman answered the phone. Spoke with Iman regarding patient's pathology results as she is an approved contact for PHI. Iman verbally understood with no further questions. Recall to be put in chart. [facility] History of Present illness Narrative* Alexandra Garcia, MARINE WATER TENDER-SHERIFF OFFICER - 06/19/2024 11:30 AM EDT Images from the original note were not included. Chief Complaint: Colonoscopy History of Present Illness Brian Gould is a 79 y.o. male who presents to the office for surveillance colonoscopy. His is present with him today. His last colonoscopy was in [address] Lozano with polypectomy x1. He has a history of rectal cancer diagnosed in 2009 status post resection and radiation therapy. He also has a history of anal stricture for which she has undergone dilation multiple times. He reports loose stools and bowel urgency. He also reports seepage of stool. states he will goto the bathroom and have to keep wiping. Sometimes he will spend an hour in the bathroom. They havecut out dairy as it bothers him. He does not drink an increased amount of caffeine or carbonated beverages. He was previously taking Metamucil, but is not currently. He denies any rectal bleeding. Hedenies any abdominal pain. He has lost 10 lb over the past 1-2 months without trying. He recently started drinking Boost. Review of Systems Constitutional: Positive for unexpected weight change. Negative for fever. 10 lb weight loss over 1-2 months HENT: Negative for trouble swallowing. Respiratory: Negative for shortness of breath. Cardiovascular: Negative for chest pain. Gastrointestinal: Positive for diarrhea. Negative for nausea, vomiting, abdominal pain, constipation, blood in stool and black tarry stool. Bowel urgency Genitourinary: Negative for dysuria and difficulty urinating. Musculoskeletal: Negative for gait problem. Skin: Negative for rash and wound. Neurological: Negative for dizziness, weakness and light-headedness. Hematological: Does not bruise/bleed easily. Psychiatric/Behavioral: Negative for confusion. Past Medical History: Diagnosis Date Colon cancer ([facility]) Diabetes mellitus ([facility]) Kidney stone Past Surgical History: Procedure Laterality Date COLON SURGERY CORONARY ARTERY BYPASS GRAFT 2013 Allergies Allergen Reactions Neomycin Rash Other reaction(s): AOF Current Outpatient Medications: allopurinoL (ZYLOPRIM) 300 mg tablet, Take 1 tablet (300 mg total) by mouth in the morning., Disp: , Rfl: amLODIPine (NORVASC) 5 mg tablet, Take 1 tablet (5 mg total) by mouth in the morning., Disp: , Rfl: aspirin 81 mg, daily., Disp: , Rfl: BD ULTRA-FINE SHORT PEN NEEDLE 31 gauge x 5/16 needle, , Disp: , Rfl: citalopram (CeleXA) 20 mg tablet, , Disp: , Rfl: donepezil (ARICEPT) 10 mg tablet, donepezil 10 mg tablet, Disp: , Rfl: isosorbide mononitrate (IMDUR) 30 mg 24 hr tablet, isosorbide mononitrate ER 30 mg tablet,extended release 24 hr, Disp: , Rfl: losartan (COZAAR) 50 mg tablet, Take 1 tablet (50 mg total) by mouth in the morning and 1 tablet (50 mg total) before bedtime., Disp: , Rfl: memantine (NAMENDA XR) 28 mg capsule,sprinkle,ER 24hr, memantine 28 mg capsule sprinkle,extended release 24hr, Disp: , Rfl: MULTIVITAMIN ORAL, Take by mouth., Disp: , Rfl: NOVOLOG MIX 70-30FLEXPEN U-100 100 unit/mL (70-30) insulin pen, 20 units with breakfast 10 units with dinner, Disp: , Rfl: OXcarbazepine (TRILEPTAL) 300 mg tablet, oxcarbazepine 300 mg tablet Take 3 tablets twice a day by oral route for 90 days., Disp: , Rfl: simvastatin (ZOCOR) 20 mg tablet, simvastatin 20 mg tablet TAKE ONE TABLET BY MOUTH ONCE DAILY, Disp: , Rfl: sod sulf-pot chloride-mag sulf 1.479-0.188- 0.225 gram tablet, Please see instructional sheet givenby physicians office., Disp: 24 tablet, Rfl: 0 Social History Socioeconomic History Marital status: Spouse name: Not on file Number of children: Not on file Years of education: Not on file Highest education level: Not on file Occupational History Not on file Tobacco Use Smoking status: Former Smokeless tobacco: Never Vaping Use Vaping status: Never Used Substance and Sexual Activity Alcohol use: Not Currently Drug use: Never Sexual activity: Defer Other Topics Concern Not on file Social History Narrative Not on file Social Determinants of Health Financial Resource Strain: Not on file Food Insecurity: Not on file Transportation Needs: Not on file Physical Activity: Not on file Stress: Not on file Social Connections: Not on file Interpersonal Safety: Not on file Housing Instability: Not on file Family History Problem Relation Age of Onset Dementia Mother Lung cancer Father Objective Physical Exam Constitutional: General: He is not in acute distress. Appearance: Normal appearance. HENT: Head: Normocephalic and atraumatic. Mouth/Throat: Mouth: Mucous membranes are moist. Eyes: Pupils: Pupils are equal, round, and reactive to light. Cardiovascular: Rate and Rhythm: Normal rate and regular rhythm. Pulmonary: Effort: Pulmonary effort is normal. No respiratory distress. Abdominal: General: Bowel sounds are normal. There is no distension. Palpations: Abdomen is soft. Tenderness: There is no abdominal tenderness. There is no guarding. Musculoskeletal: General: Normal range of motion. Skin: General: Skin is warm and dry. Neurological: Mental Status: He is alert and oriented to person, place, and time. Mental status is at baseline. Vital Signs: Blood pressure 163/53, pulse 67, weight 68.2 kg (150 lb 6.4 oz). Respiratory Source: No data recorded Admission Weight: Weight: 68.2 kg (150 lb 6.4 oz) Labs No results found for: WBC , HGB , HCT , MCV , PLT No results found for: GLU , CALCIUM , NA , K , CO2 , CL , BUN , CREATININE No results found for: AMYLASE No results found for: LIPASE No results found for: ALT , AST , GGT , ALKPHOS , LABBILI No results found for: INR , PROTIME Assessment Personal history of rectal cancer 2009 Bowel urgency and loose stools Unintentional weight loss Plan Colonoscopy with possible biopsy and/or polypectomy. Risks, benefits, and alternatives discussed with patient. Educated on bowel evacuation preparation. Patient verbalizes understanding and wishes toproceed. Recommend EGD for weight loss, patient and declined at this time. Recommend Kegel exercises and that patient start taking a fiber supplement again to help with bowelurgency and stool seepage. Consider colorectal referral. Evaluation included: Preparing to see the patient (e.g., review of tests) Obtaining and/or reviewing separately obtained history Performing a medically appropriate examination and/or evaluation Counseling and educating the patient/family/caregiver Referring and communicating with other health career development coordinator/teacher History of rectal cancer [Z85.048] DORENE SHAH [facility] [place] This note was created with the assistance of a speech recognition program. While intending to generate a timely document that accurately reflects the content of the visit, no guarantee can be provided that every grammatical or spelling mistake has been or will be identified or corrected. Thank you for your understanding. 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 ?Rhubarb. ?Beets. ?Potato chips and kyrgyz fries. ?Nuts. If you regularly take a diuretic medicine, make sure to eat at least 1 2 fruits or vegetables high in potassium each day. These include: ?Avocado. ?Banana. ?[place], prune, carrot, or tomato juice. ?Baked potato. [...] Casseroles. Pizza. Lasagna. Frozen meals. Potato chips. Macedonian fries. Summary You can reduce your risk [...] 01/19/2012 Document Revised: 01/14/2020 Document Reviewed: 09/04/2017 [employer] Patient Education 2020 [employer]. Follow Up Care 12/05/2021 11:51:44 With:YEFRI HUIZAR, Dominic Handley, URL Address: [address] [place] [id number]- When: only if needed Comments:PRN [facility] 02-20-2023 Evaluation note* Encounter Date Diagnosis Assessment Notes Treatment Notes Treatment Clinical Notes Nov, Primary hypertension (ICD-10 - I10) [facility] Other 01-13-2023 Evaluation note* Encounter Date Diagnosis Assessment Notes Treatment Notes Treatment Clinical Notes Oct, EKTA (generalized anxiety disorder) (ICD-10 - F41.1) Oct, Elevated cholesterol (ICD-10 - E78.00) Oct, ASHD (arteriosclerotic heart disease) (ICD-10 - I25.10) [place] [email or web address] Other 01-06-2023 Evaluation note* Encounter Date Diagnosis [...] use, the patient reduces the risk for MN, CVA, HTN, cardiac dysrhythmias and sudden cardiac [...] are reviewed at the office visit. Oct, halfway (current) use of insulin (ICD-10 - Z79.4) [facility] Other 11-25-2022 Miscellaneous Notes* Telephone Encounter - [...] adequaly hydrated every day [facility] NoteHNO ID: [id number] Author: Tricia Crespo MD Service: ? Author Type: Physician Type: Progress Notes Filed: 08/30/2022 3:09 PM Note Text: Patient: Brian Gould Location: [facility] : 1945 Attending Physician: Dr. Vazquez Quinonez [...] erythema BP 147/53[second a (more content not included)...[facility] 08-30-2022 History of Present illness Narrative* Tricia Crespo MD - 08/30/2022 2:59 PM EST Patient: Brian Gould Location: [facility] : 1945 Attending Physician: Dr. Vazquez Quinonez [...] units) Date Value 10/23/2013 Negative URINALYSIS Specific Mcgregor, Ur Date Value Ref Range Status 06/26/2017 [...] Juan A Cox MD documented in this encounterMer[facility] note No data available for this section [facility] [place] Evaluation note* Diagnosis Splenomegaly- Primary Abnormal finding of blood chemistry, unspecified documented in this encounter [facility] noteNo [email or web address] Other Evaluation note* Diagnosis Onset Date Resolution Status Second degree burn of back n oneactive Alzheimer's dementia acute ASHD (arteriosclerotic heart disease) acute Elevated cholesterol acute Pancytopenia acute Primary hypertension acute Type 2 diabetes mellitus with hyperglycemia acute [facility] Work Phone: Evaluation note* Diagnosis Onset Date Resolution Status Alzheimer's dementia acute ASHD (arteriosclerotic heart disease) acute Elevated cholesterol acute Encounter for subsequent tarny ua wellness visit in Medicare patient acute Pancytopenia acute Primary hypertension acute Type 2 diabetes mellitus with hyperglycemia acute [facility] Work Phone: Evaluation note* Diagnosis Seizure disorder (CMS/HCC)- Primary Unspecified epilepsy without mention of intractable epilepsy 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, psychotic disturbance, mood disturbance, or anxiety, unspecified timing of dementia onset (CMS/HCC) PINA (obstructive sleep apnea) Obstructive sleep apnea (adult) (pediatric) documented in this encounter [facility] HealthcareEvaluation note* Diagnosis History of rectal cancer [facility] Diagnosis History of rectal cancer- Primary Encounter for colonoscopy due to history of colonic polyp Fecal urgency [facility] System[facility] general Narrative - Reported* Type Description Date [...] 2006 Surgical History hemorrhoidectomy 05/2019 Surgical History C 1995 Surgical History umbilical hernia repair 2009 Surgical History left inguinal hernia repair 200 8 low anterior resection Surgical History cystoscopy, urethral dilation, right stent 04/2017 Surgical History cystoscopy with righ t stent removal 07/2017 Hospitalization History see surgical history [facility] Other InstructionsNot on filedocumented in this encounter [facility] SystemInstructionsNot on filedocumented in this encounter [facility] filedocumented in this encounter [facility] SystemInstructionsNot on filedocumented in this encounter [facility] SystemProgress note No data available for this section [facility] Summary Purpose Family History No Family History Records FoundNo Family History Records FoundNo Family History Records FoundNo Family History Records FoundNo Family History Records FoundNo Family History Records FoundNo Family History Records Found Advance Directives Advance Directive Response Recorded Date/ Time Advance Directives No February 11, 2018 10:28am Advance Directive Response Recorded Date/ Time Advance Directives No February 11, 2018 9:28am Chief Complaint and Reason for Visit Chief [...] diabetes mellitus with hyperglycemia Chief Complaint wellness Unknown Reason for Visit Alzheimer's dementia ASHD (arteriosclerotic heart disease) Elevated cholesterol Encounter for subsequent annual wellness visit in Medicare patient Pancytopenia Primary hypertension Type 2 diabetes mellitus with hyperglycemia Chief Complaint Admit Date fall into counter, back and side pain De cember 2023 9:48am 4 month f/u October 10, 2024 1: 31pm Reason for Visit Admit Date Contusion, chest wall September 10, 2024 9:48am Primary hypertension September 10, 2024 9:48am Alzheimer's dementia October 10, 2024 1 :31pm ASHD (arteriosclerotic heart disease) [facility] 2024 1:31pm Elevated cholesterol October 10, 2024 1 :31pm Pancytopenia October 10, 2024 1: 31pm Primary hypertension October 10, 2024 1 :31pm Type 2 diabetes mellitus with hyperglyce [place] October 10, 2024 1:31pm Reason for Referral Specialty Diagnoses / Procedures Referred By Thania blakely Referred To Contact Diagnoses History of rectal cancer Alexandra Garcia, MARINE WATER TENDER-SHERIFF OFFICER [address] [place] [address] Referral ID Status Reason Start Date Expiration Date Visits Re quested Visits Authorized [id number] Closed 1 1 Additional Source Comments (unrecognized sect ion and content) No Status Records FoundNo Status Records FoundNo Status Records FoundNo Status Records FoundNo Status Records FoundNo Status Records FoundNo Status Records Found INFORMATION SOURCE (unrecogn ized section and content) DATE CREATED AUTHOR 08/14/2018 [facility] DATE CREATED AUTHOR AUTHOR'S ORGANIZ ATION 09/01/2022 [facility] DATE CREATED AUTHOR AUTHOR'S ORGANIZ ATION 12/12/2022 [facility] DATE CREATED AUTHOR AUTHOR'S ORGANIZ ATION 12/13/2022 [facility] DATE CREATED AUTHOR AUTHOR'S ORGANIZ ATION 06/21/2024 [facility] DATE CREATED AUTHOR AUTHOR'S ORGANIZ ATION 07/16/2024 [facility] DATE CREATED AUTHOR AUTHOR'S ORGANIZ ATION 08/05/2024 [facility] EPIC Source Comments (unrecognize d section and content) In the event this informatio n is protected by the Federal Confidentiality of Alcohol and Drug Abuse Patient Records regulations: The Federal rules restrict any use of the information to criminally investigate or prosecute any alcohol or drug abuse patient.[facility] CenterIn the event this information is protected by the Federal Confidentiality of Alcohol and Drug Abuse Patient Records regulations: The Federal rules restrict any use of the information to criminally investigate or prosecute any alcohol or drug abuse patient.[facility] Reason for Visit (unrecogniz ed section and content) Reason Comments Pancytopenia Follow up Reason Comments Care Coordination Lab Results Reason Comments Alzheimer's Disease Reason Comments Colon Cancer Screening 5 year recall Care Teams (unrecognized sec tion and content) Team Status: Active Member Role Status Dates Juan A Cox DO Primary Care Provider Active Team Status: Active Member Role Status Dates Juan A Cox DO Primary Care Provider Active Start: August 04, 2024 Kristen Barrera PA-C Attending Provider Active Sta rt: August 04, 2024 Team Status: Inactive Member Role Status Dates Juan A Cox DO Primary Care Provide r, Attending Provider Active Start: September 10, 2024 End: September 10, 2024 Team Status: Inactive Member Role Status Dates Juan A Cox DO Primary Care Provide r, Attending Provider Active Start: October 10, 2024 End: October 10, 2024 Mine Exploration Engineer Relationship Specialty Start Date End Date Juan A Cox DO PCP - General Internal Medicine 11/14/11 Mine Exploration Engineer Relationship Specialty Start Date End Date Juan A Cox DO PCP - General Internal Medicine 11/14/11 Team Status: Inactive Member Role Status Fred Cox DO Primary Care Provide r, Attending Provider Active Start: December 14, 2023 End: December 14, 2023 Team Status: Active Member Role Status Fred Cox DO Primary Care Provider Active Start: February 14, 2024 Bj Ortega , Attending Provider Active S tart: February 14, 2024 Team Status: Active Member Role Status Fred Cox DO Primary Care Provide r, Attending Provider Active Start: February 15, 2024 Team Status: Active Member Role Status Dates Juan A Cox DO Primary Care Provider Active Start: [...] June 10, 2024 End: June 10, 2024 Team Status: Active Member Role Status Fred Cox DO Primary Care Provide r, Attending Provider Active Start: June 27, 2024 Team Status: Active Member Role Status Fred Cox DO Primary Care Provide r, Attending Provider Active Start: June 28, 2024 Team Status: Inactive Member Role Status Dates Juan A Cox DO Primary Care Provider Active Start: July 09, 2024 End: July 09, 2024 Jurgen Lozano DO Attending Provider Active Start: July 09, 2024 End: July 09, 2024 Mine Exploration Engineer Relationship Specialty Start Date End Date Juan A Cox MD [address] [place] [facility] [place] [facility] [id number] PCP - General Internal Medicine 02/07/24 Mine Exploration Engineer Relationship Specialty Start Date End Date Juan A Cox MD [address] [place] [id number] PCP - General Internal Medicine 02/07/24 Mine Exploration Engineer Relationship Specialty Start Date End Date Juan A Cox DO [address] [place], [place] [id number] PCP - General Internal Medicine 05/23/19 Mine Exploration Engineer Relationship Specialty Start Date End Date Juan A Cox DO [address] [place] [address] PCP - General Internal Medicine 05/23/19 Mine Exploration Engineer Relationship Specialty Start [place] [address] [place] [id number] PCP - General Internal Medicine 05/23/19 Mine Exploration Engineer Relationship Specialty Start Date End Date Juan A Cox DO [address] [place] [address] PCP - General Internal Medicine 05/23/19 Goals (unrecognized section and content) Goals may [...] BE BASED ON THE PRIMARY CLINICAL RECORDS. [facility]. provides no warranty or guarantee of the accuracy or completeness of information in this document.
[2025-05-20 11:39] VITALS: BP 171/53; PULSE 56; TEMP 36.5; O2SAT 99; BMI 22.2
--- NOTE | 2025-05-20 11:54 | CT_ITS ---
The [address] [address] Patient Name: NA GOULD MRN: [id number] date: 1945 Sex: M Assigned Patient Location: ER Current Patient Location: ER Accession/Order Number: [id number] Exam Date: 05/20/2025 12:57 Report Date: 05/20/2025 13:05 At the request of: JUAN JOSÉ PA MD Procedure: CT abdomen pelvis w con CT ABDOMEN AND PELVIS WITH INTRAVENOUS CONTRAST: CLINICAL HISTORY: Rectal bleeding, history of colon cancer COMPARISON: No recent comparisons TECHNIQUE: Spiral images were obtained through the abdomen and pelvis following the administration of intravenous contrast. This CT exam was performed using one or more following dose reduction techniques: Automated exposure control, adjustment of the mA and/or kV according to patient size, or use of iterative reconstruction technique. FINDINGS: Lung Bases: [Bibasilar hypoventilatory changes.] Small hiatal hernia. Organs:Splenomegaly. No focal liver lesions. Cholecystectomy. Adrenals unremarkable. Right renal pelvis thickening and thickening of the right proximal ureter. Multiple stones identified right renal collecting system. Left renal hilar calcifications likely vascular. No left-sided hydronephrosis. Left lower pole renal cyst.[ GI: No evidence of bowel obstruction. Postsurgical changes identified level of the rectosigmoid junction. Mural thickening rectosigmoid junction possibly post treatment or radiation change. Proctitis could have Similar appearance.[No bowel obstruction Pelvis:[Bladder wall thickening possibly to under distention versus cystitis versus postradiation changes. Correlate with urinalysis findings recommended. Prostate is grossly unremarkable. Peritoneum/Retroperitoneum:Moderate severe plaque involving the abdominal aorta and mesenteric vessels.[ No free air or fluid. No adenopathy. Abd wall/Bones:Multilevel degenerative change. Negative for suspicious osseous lesion.[ CT/CT abdomen pelvis w con IMPRESSION: Thickening at level rectosigmoid junction likely postsurgical or posttreatment related changes. Proctitis could've a similar appearance in the appropriate clinical setting. Bladder wall thickening could be related to under distention versus cystitis or muscular hypertrophy.. Please correlate with urinalysis and urine cytology findings. Splenomegaly. Right-sided nephrolithiasis with likely reactive changes involving the right pelvis and proximal ureter. Correlate with urinalysis and urine cytology findings given the urothelial thickening. Impression dictated by: Christian Leyva M.D. 05/20/2025 1:05 PM Dictation Location: [place] [address] Electronically authenticated by: [id number] Y Date: 05/20/2025 13:05
--- NOTE | 2025-05-20 11:58 | ED.GENADUL1 ---
HPI HPI - General Adult General Chief complaint: GI Bleed Stated complaint: RECTAL BLEDDING Time Seen by Provider: 05/20/25 11:42 Source: patient and family Mode of arrival: Wheelchair Limitations: no limitations History of Present Illness HPI narrative: 80-year-old male presents for rectal bleeding. He is gives most of the history. About 15 years ago he had colon cancer and had resection and chemo and radiation therapy. It was felt to be cured. Recently he has had a small amount of bleeding coming from his rectum. He is not on any blood thinners. His states that there is a sore down there. Related Data Home Medications ?Medication ?Instructions ?Recorded ?Confirmed allopurinol 300 mg tablet 300 mg PO QDAY 02/14/24 05/20/25 amlodipine 5 mg tablet 5 mg PO QDAY 02/14/24 05/20/25 citalopram 20 mg tablet 20 mg PO QDAY 02/14/24 05/20/25 donepezil 10 mg tablet 10 mg PO BEDTIME 02/14/24 05/20/25 insulin aspar prot-insulin aspart See Rx Instructions subcut .COMPLEX 02/14/24 05/20/25 100 unit/mL (70-30) subcutaneous pen (Novolog Mix 70-30FlexPen U-100) isosorbide mononitrate 30 mg 30 mg PO QDAY 02/14/24 05/20/25 tablet,extended release 24 hr losartan 50 mg tablet 50 mg PO BID 02/14/24 05/20/25 memantine 28 mg capsule 28 mg PO Q24H 02/14/24 05/20/25 sprinkle,extended release 24hr multivitamin (Daily Multi-Vitamin 1 tab PO DAILY 02/14/24 05/20/25 tablet) oxcarbazepine 300 mg tablet 900 mg PO BID 02/14/24 05/20/25 simvastatin 20 mg tablet 20 mg PO QDAY 02/14/24 05/20/25 aspirin 81 mg capsule 81 mg PO DAILY 05/20/25 05/20/25 Allergies Allergy/AdvReac Type Severity Reaction Status Date / Time neomycin Allergy Rash Verified 05/20/25 11:43 Opioid HPI Opioid Management Most Recent Opioid Data: Last Pain Scale 3 07/09/24, 10:55 Last ORT Total Score 0 02/15/24, 00:23 Last ORT Risk Category Low Risk 02/15/24, 00:23 Review of Systems ROS Narrative A ten point review of systems is negative except as noted above. PFSH PFSH Medical History (Updated 05/20/25 @ 14:11 by Suhail Ortega MD) History of blood transfusion (2008) ?Z92.89 - Personal history of other medical treatment (ICD-10) Sleep apnea ?G47.30 - Sleep apnea, unspecified (ICD-10) Tremor ?R25.1 - Tremor, unspecified (ICD-10) CAD (coronary artery disease) ?I25.10 - Atherosclerotic heart disease of ewiia[place]ayp coronary artery without angina pectoris (ICD-10) PE (pulmonary thromboembolism) ?I26.99 - Other pulmonary embolism without acute cor pulmonale (ICD-10) Syncope ?R55 - Syncope and collapse (ICD-10) Dementia ?F03.90 - Unspecified dementia, unspecified severity, without behavioral disturbance, psychotic disturbance, mood disturbance, and anxiety (ICD-10) Kidney stone ?N20.0 - Calculus of kidney (ICD-10) Anemia ?D64.9 - Anemia, unspecified (ICD-10) Acute hemorrhoid ?K64.9 - Unspecified hemorrhoids (ICD-10) Colon cancer ?C18.9 - Malignant neoplasm of colon, unspecified (ICD-10) Hypertension ?I10 - Essential (primary) hypertension (ICD-10) Diabetes ?E11.9 - Type 2 diabetes mellitus without complications (ICD-10) Surgical History (Updated 07/02/24 @ 14:52 by Faby Astudillo NP) H/O hemorrhoidectomy (2008) ?Z98.890 - Other specified postprocedural states (ICD-10) S/P cataract extraction and insertion of intraocular lens ?Z98.49 - Cataract extraction status, unspecified eye (ICD-10) ?Z96.1 - Presence of intraocular lens (ICD-10) S/P ureteral stent placement ?Z96.0 - Presence of urogenital implants (ICD-10) H/O colectomy (2006) ?Z90.49 - Acquired absence of other specified parts of digestive tract (ICD-10) H/O colonoscopy ?Z98.890 - Other specified postprocedural states (ICD-10) S/P CABG x 4 (2013) ?Z95.1 - Presence of aortocoronary bypass graft (ICD-10) History of colon surgery (2008) ?Z98.890 - Other specified postprocedural states (ICD-10) Family History (Updated 02/15/24 @ 00:22 by Elda Traylor RN) Uncle Family history of CHF (congestive heart failure) Family history of myocardial infarction Other Family history of COPD (chronic obstructive pulmonary disease) Family history of cancer Social History (Updated 07/09/24 @ 08:21 by Viviana Mckoy RN) Within the past year, how often did you have a drink containing alcohol: never Score interpretation: A score less than 4 is consistent with normal alcohol consumption. Smoking status: Former smoker Non-prescribed substance use: denies use Previous occupational history: retired Highest level of school completed/degree received: high school graduate Are you now , , , , never or living with a partner: In a typical week, how many times do you talk on the telephone with family, friends, or neighbors: twice per week How often do you get together with friends or relatives: twice per week Little interest or pleasure in doing things: not at all Feeling down, depressed, or hopeless: not at all Do you think of yourself as: straight/heterosexual Gender Identity: male Exam Narrative Exam Narrative: Nurses note and vital signs reviewed and patient is not hypoxic. General: The patient appears well and in no apparent distress. Patient is resting comfortably on cart. Skin: Warm, dry, no pallor noted. There is no rash noted. Head: Normocephalic, atraumatic Eye: Normal conjunctiva, no drainage Ears, Nose, Mouth, and Throat: oral mucosa is moist. Nares patent. Mouth without vesicles. Ear canals patent. Tm's without Erythema Cardiovascular: Regular Rate and Rhythm Respiratory: Patient is in no distress, no accessory muscle use, lungs are clear to auscultation, no wheezing, rales or rhonchi Back: non-tender GI: Soft and nontender. External perianal examination shows no external hemorrhoids. There is a great deal of white-cream that is present but I do not see any active bleeding. There is some excoriation. Musculoskeletal: The patient has no evidence of calf tenderness, no pitting edema, symmetrical pulses noted bilaterally Neurological: Awake and alert Psychiatric: Cooperative Constitutional Vital Signs, click to edit/add: Last Vital Signs Temp 97.7 F 05/20/25 11:39 Pulse 52 L 05/20/25 12:59 Resp 16 05/20/25 12:59 BP 176/57 H 05/20/25 12:59 Pulse Ox 99 05/20/25 12:59 O2 Del Method Room Air 05/20/25 11:39 Course Vital Signs Vital signs: Vital Signs Temperature 97.7 F 05/20/25 11:39 Pulse Rate 56 L 05/20/25 11:39 Respiratory Rate 18 05/20/25 11:39 Blood Pressure 171/53 H 05/20/25 11:39 Pulse Oximetry 99 05/20/25 11:39 Oxygen Delivery Method Room Air 05/20/25 11:39 Temperature 97.7 F 05/20/25 11:39 Pulse Rate 52 L 05/20/25 12:59 Respiratory Rate 16 05/20/25 12:59 Blood Pressure 176/57 H 05/20/25 12:59 Pulse Oximetry 99 05/20/25 12:59 Oxygen Delivery Method Room Air 05/20/25 11:39 Medical Decision Making MDM Narrative Medical decision making narrative: Hemoglobin is 15. He has no abdominal or rectal pain and I do not suspect proctitis. CT scan is reviewed and discussed with Dr. Lozano, the patient's surgeon. The patient is due for a colonoscopy and is discharged home. Follow-up in the office to arrange colonoscopy. Findings are discussed with the patient and his . Differential Diagnosis Differential Diagnosis: Hemorrhoid, excoriation, rectal bleeding Lab Data Lab results reviewed: Yes I reviewed the patient's lab results Labs: Lab Results 05/20/25 Range/Units 12:03 WBC 3.0 L (4.0-11.0) 10^3/uL RBC 3.01 L (4.70-6.10) 10^6/uL Hgb 10.3 L (14.0-18.0) g/dL Hct 30.1 L (42.0-54.0) % MCV 100.0 H (80.0-94.0) fL MCH 34.2 H (25.9-34.0) pg MCHC 34.2 (29.9-35.2) g/dL RDW 14.6 (11.0-15.0) % Plt Count 76 L (150-450) 10^3/uL MPV 9.9 (9.5-13.5) fL Seg Neuts % (Manual) 79.0 H (43.0-75.0) Lymphocytes % (Manual) 18.0 L (20.5-60.0) % Monocytes % (Manual) 3.0 (1.7-12.0) % Eosinophils % (Manual) 0.0 L (0.9-7.0) % Basophils % (Manual) 0.0 L (0.2-2.0) % Neutrophils # (Manual) 2.37 (1.4-6.5) 10^3/uL Lymphocytes # (Manual) 0.54 L (1.20-3.80) 10^3/uL Monocytes # (Manual) 0.09 L (0.30-0.80) 10^3/uL Eosinophils # (Manual) 0.00 (0.00-0.70) 10^3/uL Basophils # (Manual) 0.00 (0.00-0.10) 10^3/uL Anisocytosis 1+ Macrocytosis 1+ Sodium 138 (136-145) mmol/L Potassium 3.5 (3.5-5.1) mmol/L Chloride 106 (98-107) mmol/L Carbon Dioxide 32.2 H (21.0-32.0) mmol/L Anion Gap 3.3 BUN 25.0 H (7.0-18.0) mg/dL Creatinine 1.07 (0.70-1.30) mg/dL Est GFR ( Amer) >60 (>=60 mL/min/1.73m^2) Est GFR (Non-Af Amer) >60 (>=60 mL/min/1.73m^2) BUN/Creatinine Ratio 23.4 Glucose 131 H (74-106) mg/dL Calcium 9.0 (8.5-10.1) mg/dL Imaging Data CT scan - abdomen: Radiologist's impression: ITS Impressions Abdomen/Pelvis CT 05/20/25 11:54 IMPRESSION: Thickening at level rectosigmoid junction likely postsurgical or posttreatment related changes. Proctitis could've a similar appearance in the appropriate clinical setting. Bladder wall thickening could be related to under distention versus cystitis or muscular hypertrophy.. Please correlate with urinalysis and urine cytology findings. Splenomegaly. Right-sided nephrolithiasis with likely reactive changes involving the right pelvis and proximal ureter. Correlate with urinalysis and urine cytology findings given the urothelial thickening. Impression dictated by: Christian Leyva M.D. 05/20/2025 1:05 PM Dictation Location: [place] [address] Electronically authenticated by: [id number] Y Date: 05/20/2025 13:05 Discharge Plan Discharge Chief Complaint: GI Bleed Clinical Impression: Rectal bleeding Patient Disposition: Home, Self-Care Time of Disposition Decision: 14:10 Condition: Good Mode of Transportation: Private Vehicle Prescriptions / Home Meds: No Action allopurinol 300 mg tablet 300 mg PO QDAY amlodipine 5 mg tablet 5 mg PO QDAY citalopram 20 mg tablet 20 mg PO QDAY donepezil 10 mg tablet 10 mg PO BEDTIME insulin asp prt-insulin aspart [Novolog Mix 70-30FlexPen U-100] 100 unit/mL (70-30) insulin pen See Rx Instructions SUBCUT .COMPLEX Rx Instructions: 26 u qam, 10 u with supper subcutaneously; isosorbide mononitrate 30 mg tablet extended release 24 hr 30 mg PO QDAY losartan 50 mg tablet 50 mg PO BID memantine 28 mg capsule,sprinkle,ER 24hr 28 mg PO Q24H simvastatin 20 mg tablet 20 mg PO QDAY oxcarbazepine 300 mg tablet 900 mg PO BID multivitamin [Daily Multi-Vitamin] Tablet 1 tab PO DAILY aspirin 81 mg capsule 81 mg PO DAILY Print Language: Hong Konger Instructions: Gastrointestinal Bleeding (ED) Additional Instructions: Call Dr. Lozano's office to arrange an appointment with his nurse practitioner. You will likely be scheduled for a colonoscopy. Referrals: Juan A Cox DO [Primary Care Provider, Internal Medicine] - 1 week
[2025-05-20 12:10] LABS: Hematocrit 30.1 % (42.0-54.0); Hemoglobin 10.3 g/dL (14.0-18.0); Mean Corpuscular HGB Conc 34.2 g/dL (29.9-35.2); Mean Corpuscular Hemoglobin 34.2 pg (25.9-34.0); Mean Corpuscular Volume 100.0 fL (80.0-94.0); Platelet Count 76 10^3/uL (150-450); Red Blood Count 3.01 10^6/uL (4.70-6.10); White Blood Count 3.0 10^3/uL (4.0-11.0)
[2025-05-20 12:25] LABS: Anion Gap 3.3; Blood Urea Nitrogen 25.0 mg/dL (7.0-18.0); Calcium 9.0 mg/dL (8.5-10.1); Carbon Dioxide 32.2 mmol/L (21.0-32.0); Chloride 106 mmol/L (98-107); Estimated GFR (African America >60 (>=60 mL/min/1.73m^2); Estimated GFR (Non-African Ame >60 (>=60 mL/min/1.73m^2); Glucose 131 mg/dL (74-106); Potassium 3.5 mmol/L (3.5-5.1); Sodium 138 mmol/L (136-145)
[2025-05-20 12:45] LABS: Basophils Abs Manual 0.00 10^3/uL (0.00-0.10); Basophils Percent Manual 0.0 % (0.2-2.0); Eosinophils Absolute Manual 0.00 10^3/uL (0.00-0.70); Eosinophils Percent Manual 0.0 % (0.9-7.0); Lymphocytes Absolute Manual 0.54 10^3/uL (1.20-3.80); Lymphocytes Percent Manual 18.0 % (20.5-60.0); Monocytes Absolute Manual 0.09 10^3/uL (0.30-0.80); Monocytes Percent Manual 3.0 % (1.7-12.0); Segmented Neut Absolute Manual 2.37 10^3/uL (1.4-6.5); Segmented Neutrophils % Manual 79.0 (43.0-75.0)
[2025-05-20 12:46] LABS: Anisocytosis 1+; Macrocytosis 1+
[2025-05-20 12:59] VITALS: BP 176/57; PULSE 52; O2SAT 99
[2025-05-20 14:29] VITALS: BP 176/60; PULSE 74; O2SAT 98
== END 2025-05-20 14:38 | disposition home or self-care (01) ==
PROVIDERS: Emergency Provider Emergency Medicine; PCP Internal Medicine
DX: K62.5 Hemorrhage of anus and rectum (principal); C18.9 Malignant neoplasm of colon, unspecified; R16.1 Splenomegaly, not elsewhere classified; N20.0 Calculus of kidney
CPT/HCPCS: 36415; 74177; 80048; 85007; 85027; 99284; Q9967

== ENCOUNTER 2025-08-11 10:35 | Emergency (ER) | payer MEDICARE, SELFPAY ==
[2025-08-11] VITALS (17 sets, daily range): BP systolic 131–207; BP diastolic 62–106; PULSE 62; TEMP 36.4; O2SAT 98–100; BMI 22.2
--- OUTSIDE RECORDS SUMMARY | 2025-08-11 10:40 | XMS_ITS | Clinical Summary ---
Author Organization [facility] Address [address] [place] [address] Care Team Providers Care Computer Systems Analyst Name Role Phone Juan A Cox DO Primary Care Provider [phone] Allergies Active AllergyReactionsCriticalityNoted CachUgxpcjjhJjxpwbodPgbxPog83/11/2009 Other reaction(s): AOF Other reaction(s): AOF Other reaction(s): AOF Medications MedicationSigDispense QuantityRefillsLast FilledStart DateEnd DateStatus allopurinol (Zyloprim) 300 MG tablet 11/06/2023ctive amLODIPine (Norvasc) 5 MG tablet 12/18/2023ctive citalopram (CeleXA) 20 MG tablet 11/05/2023ctive NovoLOG MIX 70/30 FLEXPEN (70-30) 100 UNIT/ML injection 11/05/2023ctive isosorbide mononitrate ER (Imdur) 30 MG 24 hr tablet 12/19/2023ctive losartan (Cozaar) 50 MG tablet 12/18/2023ctive simvastatin (Zocor) 20 MG tablet Take 20 mg by mouth at bedtimeActive doxycycline (Vibramycin) 100 MG capsule TAKE ONE CAPSULE BY MOUTH ONCE DAILY FOR 7 DAYS12/14/2023ctive OXcarbazepine (Trileptal) 300 MG tablet Indications:Seizure disorder (HCC)TAKE 3 TABLETS TWICE DAILY 540 tablet ctive donepezil (Aricept) 10 MG tablet Indications:Dementia (HCC)TAKE 1 TABLET AT BEDTIME 90 tablet 5Active Memantine HCl ER 28 MG capsule sustained-release 24 hr Indications:Dementia (HCC)TAKE 1 CAPSULE EVERY DAY 90 capsule 5Active Active Problems ProblemNoted DateDiagnosed DatePLMD (periodic limb movement disorder)03/17/2024 Persistent mental ktctyibo00/10/8873Wqnjhw88/10/2024 Overview (03/17/2024): He has history of tremor to his bilateral hands manifested as shaking in his hands and arms bilaterally when he yawns or uses the restroom, which may be related to vasovagal response. [facility] for an episode of tremors and headache associated with gasping for breath. Head CT revealed chronic age related changes and no acute process. His glucose was noted to be 234. Chest Xray was nonacute. 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 He denies back pain. He may have a peripheral nerve process such as lumbar radiculopathy or polyneuropathycontributing to his symptoms. He is a diabetic. He previously declined EMG. HypertensionInsomniaHypersomniaDementia Overview (03/17/2024): He continues with memory troubles. MOCA 11/26/2023 is (MOCA 12/28/2022: , MOCA 11/29/21: , MOCA 12/02/20: , MOCA 2018: ). Treated with Namenda and Aricept. I advised patient to refrain from driving. His states he does not drive. Diabetes mellitus, type IISeizure Overview (03/17/2024): history of seizure disorder with focal events and treated with Trileptal. Routine EEG (12/09/2021) was normal. 2 hour EEG (01/04/2022) was normal. He is unable to tolerate ambulatory EEG. Trileptal level was 40 on 10/20/2022. Stable Immunizations ImmunizationAdministration DatesNext DuePneumococcal Conjugate PCV 13111/01/2019 Family History RelationNameStatusCommentsFatherDeceasedMotherDeceased Social History Tobacco UseTypesPacks/DayYears UsedDateSmoking Tobacco: FormerCigarettesPassive Smoke Exposure: Never Comments:Age stop: 26 Alcohol UseStandard Drinks/WeekCommentsNever0 (1 standard drink = 0.6 oz pure alcohol)Sex and Gender InformationValueDate RecordedSex Assigned at BirthNot on fileLegal AepMtlb6702/05/2023 8:35 PM EDTGender IdentityNot on fileSexual OrientationNot on file Last Filed Vital Signs Vital SignReadingTime TakenCommentsBlood Wtngljum282/8210 11:26 AM EDT Npaox3842 11:26 AM EDTTemperature--Respiratory Vmmi4989 11:26 AM EDTOxygen Vpmyocclvn500%08/04/2024 11:26 AM EDTInhaled Oxygen Concentration-- Oobodb27.3 kg (155 lb)08/04/2024 11:26 AM UWTLnuahd481.7 cm (5' 8 )08/04/2024 11:26 AM EDTBody Mass Index23.5710 11:26 AM EDT Plan of Treatment Not on file Insurance Care Teams Team MemberRelationshipSpecialtyStart DateEnd Date Juan A Cox DO PCP - GeneralInternal Medicine02/07/24
--- OUTSIDE RECORDS SUMMARY | 2025-08-11 10:40 | XMS_ITS | Clinical Summary ---
Author Organization [email or web address] [facility] tem Address [id number] [address] [place] [address] Care Team Providers Care Track Grinder Operator Name Role Phone Juan A Cox Primary Care Provider [phone] Allergies Active AllergyReactionsCriticalityNoted PtlsXwgrxqtfNkvyscemCkqcRso66/11/2009 Other reaction(s): AOF Medications MedicationSigDispense QuantityRefillsLast FilledStart DateEnd DateStatus simvastatin (ZOCOR) 20 mg tablet simvastatin 20 mg tablet TAKE ONE TABLET BY MOUTH ONCE DAILYActive BD ULTRA-FINE SHORT PEN NEEDLE 31 gauge x /16 needle 05/21/2019Active OXcarbazepine (TRILEPTAL) 300 mg tablet oxcarbazepine 300 mg tablet Take 3 tablets twice a day by oral route for 90 days.03/10/2014ctive memantine (NAMENDA XR) 28 mg capsule,sprinkle,ER 24hr memantine 28 mg capsule sprinkle,extended release 24hr01/19/2016Active isosorbide mononitrate (IMDUR) 30 mg 24 hr tablet isosorbide mononitrate ER 30 mg tablet,extended release 24 hr12/27/2017Active citalopram (CeleXA) 20 mg tablet 05/05/2019Active aspirin 81 mg daily.Active donepezil (ARICEPT) 10 mg tablet donepezil 10 mg hvbton9812/08/2015Active NOVOLOG MIX 70-30FLEXPEN U-100 100 unit/mL (70-30) insulin pen 20 units with breakfast 10 units with qzcblo0902/23/2019Active sod sulf-pot chloride-mag sulf 1.479-0.188- 0.225 gram tablet Indications:History of rectal cancerPlease see instructional sheet given by physicians office. 24 tablet 4Active losartan (COZAAR) 50 mg tablet Take 1 tablet (50 mg total) by mouth in the morning and 1 tablet (50 mg total) before bedtime.Active allopurinoL (ZYLOPRIM) 300 mg tablet Take 1 tablet (300 mg total) by mouth in the morning.Active amLODIPine (NORVASC) 5 mg tablet Take 1 tablet (5 mg total) by mouth in the morning.Active MULTIVITAMIN ORAL Take by mouth.Active Active Problems No known active problems Family History Medical HistoryRelationNameCommentsLung cancerFatherDementiaMotherRelationName StatusCommentsFatherMother Social History Tobacco UseTypesPacks/DayYears UsedDateSmoking Tobacco: FormerSmokeless Tobacco: NeverAlcohol UseStandard Drinks/WeekCommentsNot Currently0 (1 standard drink = 0.6 oz pure alcohol)ChildcareAnswerDate BsziljyeEtksdzoizCwlyqqx31/16/2019 EmploymentAnswerDate YbwuosmlZgjeptbnyxTetbeyr66/16/2019Purpose - LifeAnswerDate RecordedPurpose and direction in ntltKohhxih89/11/2021ex and Gender Information ValueDate RecordedSex Assigned at BirthNot on fileLegal VtfRxwz0105/23/2019 12:28 PM EDTGender IdentityNot on fileSexual OrientationNot on file Last Filed Vital Signs Vital SignReadingTime TakenCommentsBlood Unbdauez236/5309 11:52 AM EDT Blnvw145706/19/2024 11:52 AM EDTTemperature--Respiratory Rate--Oxygen Saturation-- Inhaled Oxygen Concentration--Yebjdl35.2 kg (150 lb 6.4 oz)06/19/2024 11:52 AM CMQCvicis468.7 cm (5' 8 )06/27/2019 8:57 AM EDTBody Mass Index22.8706/27/2019 8:57 AM EDT Plan of Treatment Health MaintenanceDue DateLast DoneCommentsDepression Hnvpyulne61/19/1958Zoster (Shingles) Vaccine (1 of 2)1996Abdominal Aortic Aneurysm (AAA) Screen 2011Fall Risk Elpztrobt49/19/2011RSV ( or age 60+ yrs) (1 - 1-dose 75+ series)1DTaP,Tdap and Td Vaccines (4 - Td or Tdap)06/12/2023 06/12/2013, 06/19/2012, 04/09/2002COVID-19 Vaccine ( season) 503/10/2020, 11/08/2020Influenza Hjawepq30/, 07/11/2022, 07/19/2021, Additional history existsTobacco Ajenhggxn72/12/2025 8119Svtorhefxyi24/02/202910/11/2023, 06/11/2019 Medical Devices Not on file Procedures Procedure NamePriorityDate/TimeAssociated DiagnosisComments COLONOSCOPYRoutine 06/11/2019 8:57 AM EDTfrom Last 3 Months or Most Recently Relevant to Health Maintenance Insurance MemberSubscriberPlan / Payer (Effective 2018-Present)Name:Brian Meehan Relation to Subscriber:SelfName:Brian Meehan Payer ID:[id number] (NAIC) Group ID:[id number] Type:Not on file Address: [address] [place] [id number] Care Teams Team MemberRelationshipSpecialtyStart DateEnd Date Juan A Cox DO [address] [place] [address] PCP - GeneralInternal Medicine05/23/19
--- OUTSIDE RECORDS SUMMARY | 2025-08-11 10:52 | XMS_ITS | CCD ---
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 immunization; 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: [ENCOUNTER FOR IMMUNIZATION] Onset: 79-12-3771YstwljzrXmfoo aftercare (1 source)[facility] (current) use of aspirin; 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: [RN CLINICAL REVIEW CURRENT USE OF ASPIRIN]Onset: 19-56-3517WfyqpgwvIhciy and unspecified benign neoplasm (3 sources)Hemangioma; 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: [Hemangioma unspecified site]Onset: 012691-96-2738TvbhednmIthpr gastrointestinal disorders (1 source)Urgent desire for stool; 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: [Fecal urgency]06-19-2024 EpisodicOther lower respiratory disease (1 source)Dyspnea, unspecified; 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: [DYSPNEA UNSPECIFIED]Onset: 48-45-7238IlwnandjLkujm lower respiratory disease (1 source)Shortness of breath; 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: [SHORTNESS OF BREATH]Onset: 50-33-7472KalafekzDapqm nervous system disorders (5 sources)Tremor, unspecified; Translations: [TREMOR UNSPECIFIED]Onset: 83-76-8146ZdplgwlnIdtad nervous system disorders (3 sources)Tremor; Translations: [Tremor, unspecified]Onset: 03-17-2024 69-58-8227DmjvjlzwGpqiq nervous system disorders (3 sources)Skin sensation disturbance; Translations: [Unspecified disturbances of skin sensation]Onset: 284533-61-6323CqrxgqyxOlsmf nervous system disorders (3 sources)Paresthesia; Translations: [Paresthesia of skin]Onset: 03-17-2024 52-91-1540HwyuxeikSsfbjtez codes; unclassified (3 sources)Disorientation, unspecified; Translations: [DISORIENTATION UNSPECIFIED]Onset: 50-91-7756YjhjcwgoBygyvxpm codes; unclassified (3 sources)Amnesia; Translations: [Other amnesia]Onset: EpisodicUnclassified (1 source)Home continuous positive airway pressure unit (physical object) 95-03-9293Nfgvcsrolnqg (1 source)Long-term current use of qeeuoux21-35-6941Recalji tract infections (1 source)Urinary tract infection, site not specified; Translations: [UTI SITE NOT SPECIFIED]Onset: 85-43-5881Orybdznz Results Test NameValueInterpretationReference RangeFacilityAnisocytosis LM Ql (Bld) Ordered By: Bj Ortega on 15-62-7447Wxiygdplarhi Ql (Bld)1+White HospitalBasophils/100 WBC Manual cnt (Bld)Ordered By: Bj Ortega on 04-98-3872Ahhkautzg/100 WBC (Bld)0.0 %Low0.2-2.0White HospitalEosinophils/100 WBC Manual cnt (Bld)Ordered By: Bj Ortega on 96-23-2521Bxsyzvsqfjg/100 WBC (Bld)0.0 %Low0.9-7.0White HospitalErythrocyte distribution width Auto (RBC) [Ratio]Ordered By: Bj Ortega on 20-72-4811Lclurpoqkjx distribution width (RBC) [Ratio]14.6 %11.0-15.0 White HospitalGlomerular filtration rate (GFR) estimation in non- AmericanOrdered By: Bj Ortega on 03-78-6048ESE/1.73 sq M.predicted among non-blacks MDRD (S/P/Bld) [Vol rate/Area]mL/min/{1.73_m2}>=60 mL/min/1.73m 2FUniversity Hospitals Cleveland Medical CenterHematocrit Auto (Bld) [Volume fraction]Ordered By: Bj Ortega on 91-25-3279Rgnfscsxft (Bld) [Volume fraction]30.1 %Low42.0-54.0White HospitalHemoglobin [Mass/volume] in BloodOrdered By: Bj Ortega on 96-15-1367Mqycjksraj (Bld) [Mass/Vol]10.3 g/dLLow14.0-18.0White HospitalLaboratory - Chemistry and Chemistry - challengeOrdered By: Bj Ortega on 05-20-2025 Calcium [Mass/Vol]9.0 mg/dL8.5-10.1FUniversity Hospitals Cleveland Medical CenterChloride [Moles/Vol]106 mmol/B41-348UbmyfscdbWhite HospitalCO2 [Moles/Vol]32.2 mmol/LHigh21.0-32.0White HospitalCreatinine [Mass/Vol]1.07 mg/dL0.70-1.30White HospitalGFR/1.73 sq M.predicted MDRD (S/P/Bld) [Vol rate/Area]mL/min/{1.73_m2}>=60 mL/min/1.73m 2FUniversity Hospitals Cleveland Medical CenterGlucose [Mass/Vol]131 mg/hLSzwp54-903SdguvxkjqWhite HospitalPotassium [Moles/Vol]3.5 mmol/L3.5-5.1FUniversity Hospitals Cleveland Medical Center Sodium [Moles/Vol]138 mmol/Q301-551MyzbvgxvtWhite HospitalUrea nitrogen [Mass/Vol]25.0 mg/dLHigh7.0-18.0White HospitalUrea nitrogen/Creatinine [Mass ratio]23.4 mg/mgWhite Hospital Laboratory - Hematology and Cell countsOrdered By: Bj Ortega on 05-20-2025 Lymphocytes/100 WBC (Bld)18.0 %Low20.5-60.0[facility] Monocytes/100 WBC (Bld)3.0 %1.7-12.0White HospitalLeukocytes [#/volume] corrected for nucleated erythrocytes in Blood by Automated coun Ordered By: Bj Ortega on 45-52-5949CAC corrected for nucl RBC Auto (Bld) [#/Vol]3.0 10 3/uLLow4.0-11.0[facility] Auto (RBC) [Entitic mass]Ordered By: Bj Ortega on 78-62-1206VKC (RBC) [Entitic mass] 34.2 zkHhtr65.9-34.0White HospitalMCHC Auto (RBC) [Mass/Vol] Ordered By: Bj Ortega on 07-25-0708SSSK (RBC) [Mass/Vol]34.2 g/dL29.9-35.2 White HospitalMCV Auto (RBC) [Entitic vol]Ordered By: Bj Ortega on 48-90-9424FKF (RBC) [Entitic vol]100.0 cWNoaq36.0-94.0White HospitalMacrocytes LM Ql (Bld)Ordered By: Bj Ortega on 91-10-4074Mjcjlxxryg Ql (Bld)1+White HospitalNo Panel InformationOrdered By: Bj Ortega on 46-15-6208Kcviomfc Basophils (Manual) 0.00 10 3/uL0.00-0.10White HospitalEosinophils # (Manual)0.00 10 3/uL0.00-0.70White HospitalLymphocytes # (Manual)0.54 10 3/uLLow1.20-3.80White HospitalMonocytes # (Manual)0.09 10 3/uLLow0.30-0.80OhioHealthegmented Neutrophils # (Manual)2.37 10 3/uL1.4-6.5FUniversity Hospitals Cleveland Medical CenterPlatelet mean volume Auto (Bld) [Entitic vol]Ordered By: Bj Ortega on 54-02-6332Nhhocgun mean volume (Bld) [Entitic vol]9.9 fL9.5-13.5FUniversity Hospitals Cleveland Medical Center Platelets Auto (Bld) [#/Vol]Ordered By: Bj Ortega on 82-08-5907Auegyncqb (Bld) [#/Vol]76 10 3/pCVkv857-965OzvlsvobwWhite HospitalRBC Auto (Bld) [#/Vol]Ordered By: Bj Ortega on 90-41-9030UHE (Bld) [#/Vol]3.01 10 6/uLLow 4.70-6.10OhioHealthegmented neutrophils/100 WBC Manual cnt (Bld)Ordered By: Bj Ortega on 36-33-9750Lhfflpcea neutrophils/100 WBC (Bld)79.0 %High43.0-75.0OhioHealtherum or plasma anion gap determinationOrdered By: Bj Ortega on 97-24-8178Sfenr gap [Moles/Vol]3.3 mmol/LFUniversity Hospitals Cleveland Medical CenterNo Panel Informationon 08-04-2024 Oxcarbazepine Level39 ug/kYQafynduz80-37OdtvphgbwWhite HospitalComment on above:This test was developed and its performance characteristicsdetermined by [employer]. It has not been cleared orapproved by the Food and Drug Administration. Detection Limit = 1Performed at: [facility] HospitalLmryekdUfqmbopvkx[address], [place] [id number] Director: Natacha Burdick MD, Phone: [phone] 1 houron 43-13-5497UvvDrrvbe Health SystemPathology Request for Lab Corpon 28-13-5252Kiqosgpnl Request for Lab CorpNormMiami Children's Hospital Physician GroupComment on above:Order Comment: PATHOLOGY GI SPECIMENResult Comment: See report. Scanned copy available in EMR. PERFORMED BY: [facility] [address] [place] [address] PATHOLOGIST RCP RONA GAMEZ M.D.Performed By: #### PATH TO [facility] #### [place] [address] USASurgical PathologyOrdered By: Nay Thacker on 50-00-5779HlzRkqtxoVan Wert County HospitalLaboratory - Chemistry and Chemistry - challengeon 15-32-3016Dtkzfgdyp Ql (U)NegativeNEGOhioHealth Shelby HospitalGlucose (U) [Mass/Vol]NegativeNEGATIVEWhite Hospital Ketones Ql (U)NegativeNEGOhioHealth Shelby HospitalpH (U)5.5 [pH] 5.0-9.0OhioHealthpecific gravity (U) [Rel density]1.025 1.005-1.025White HospitalUrobilinogen Qn (U)0.2 {Jun'U}/dL0.2-1.0White HospitalLaboratory - Specimen informationon 29-17-4228Aljqizmazw (U)CLEARCLEARFUniversity Hospitals Cleveland Medical CenterColor (U)LT. YELLOWYELLOWWhite HospitalLaboratory - Urinalysison 65-61-6991Imzvqrwee esterase Test strip Ql (U)SMALLAbnormalNEGATIVE White HospitalMucus Ql (Urine sed)NONE SEENNONE [facility] CenterNitrite Ql (U)PositiveAbnormalNEGOhioHealth Shelby HospitalProtein Ql (U)100 mg/dLAbnormalNEG/TRACEWhite HospitalNo Panel Informationon 08-56-0909Qeylr BacteriaMODERATE #/HPFAbnormalNONE SEENWhite HospitalUrine Occult BloodNegativeNEGATIVEWhite HospitalUrine Other CastsNONE SEEN #/LPFNONE SEENWhite HospitalUrine Other CrystalsNone Seen #/HPFNone SeenWhite HospitalUrine RBC0-2 #/HPF0-2FUniversity Hospitals Cleveland Medical Center Urine Squamous Epithelial CellsRARE #/LPFNONE/RAREWhite HospitalUrine VXZ26-19 #/HPFAbnormalNONE SEENWhite Hospital Basophils/100 WBC Manual cnt (Bld)on 40-49-3948Hssiibhfa/100 WBC (Bld)0.0 %Low 0.2-2.0White HospitalCholesterol in LDL Calc [Mass/Vol]on 94-04-0114Bsywknjsyoq in LDL [Mass/Vol]43.0 mg/dLWhite HospitalComment on above:<100 mg/dl UMFQUKF408-509 mg/dl NEAR OR ABOVE ZETHHPL537- 159 mg/dl BORDERLINE NWSN961-628 mg/dl HIGH>190 mg/dl VERY HIGHCholesterol in VLDL Calc [Mass/Vol]on 82-67-9803Fficglbzvaa in VLDL [Mass/Vol]18.0 mg/dL White HospitalEosinophils/100 WBC Manual cnt (Bld)on 82-99-8476Yicfnkxwiyz/100 WBC (Bld)0.0 %Low0.9-7.0White HospitalErythrocyte distribution width Auto (RBC) [Ratio]on 26-75-8774Soseeqeiynx distribution width (RBC) [Ratio]15.2 %High11.0-15.0White HospitalEstimated glomerular filtration rate (GFR) non- Americanon 29-42-1669RLZ/1.73 sq M.predicted among non-blacks MDRD (S/P/Bld) [Vol rate/Area]mL/min/{1.73_m2}>=60White HospitalGlobulin Calc (S) [Mass/Vol]on 21-16-9881Ubjoclrm (S) [Mass/Vol]2.8 g/dLWhite HospitalGlucose mean value [Mass/volume] in Blood Estimated from glycated hemoglobinon 20-25-2921Kesnefn glucose Estimated from glycated hemoglobin (Bld) [Mass/Vol]85 mg/dLWhite HospitalHematocrit Auto (Bld) [Volume fraction]on 82-69-8356Rxhptqwgvn (Bld) [Volume fraction]28.8 %Low42.0-54.0 White HospitalHemoglobin [Mass/volume] in Bloodon 06-27-2024 Hemoglobin (Bld) [Mass/Vol]10.0 g/dLLow14.0-18.0White HospitalLaboratory - Chemistry and Chemistry - challengeon 02-35-6056Xukcyui [Mass/Vol]3.7 g/dL3.4-5.0White HospitalALP [Catalytic activity/Vol]92 U/U31-400WvltnonnnWhite HospitalALT [Catalytic activity/Vol]48 U/M63-35DdgwwbumxWhite HospitalAST [Catalytic activity/Vol]24 U/K62-72EnqdgndchWhite HospitalBilirubin [Mass/Vol]0.7 mg/dL0.2-1.0White HospitalCalcium [Mass/Vol]8.8 mg/dL 8.5-10.1FUniversity Hospitals Cleveland Medical CenterChloride [Moles/Vol]103 mmol/L98-107 White HospitalCholesterol [Mass/Vol]133 mg/dL<=200White HospitalCholesterol in HDL [Mass/Vol]72 mg/qSYzjg28-73BcktdmvcuWhite HospitalComment on above:> or =60 mg/dl - LOW CARDIOVASCULAR RISK<40 mg/dl - HIGH CARDIOVASCULAR RISKCO2 [Moles/Vol]33.1 mmol/LHigh21.0-32.0 White HospitalCreatinine [Mass/Vol]1.10 mg/dL0.70-1.30 White HospitalGFR/1.73 sq M.predicted MDRD (S/P/Bld) [Vol rate/Area]mL/min/{1.73_m2}>=60White HospitalGlucose [Mass/Vol]175 mg/bJTukx40-953RfdjwhjgcWhite HospitalPotassium [Moles/Vol]4.1 mmol/L3.5-5.1FUniversity Hospitals Cleveland Medical CenterProtein [Mass/Vol] 6.5 g/dL6.4-8.2FParkview Healthodium [Moles/Vol]140 mmol/L 136-145White HospitalTriglyceride [Mass/Vol]90 mg/dL<=150 White HospitalUrea nitrogen [Mass/Vol]28.0 mg/dLHigh7.0-18.0 White HospitalUrea nitrogen/Creatinine [Mass ratio]25.5 mg/mg White HospitalLaboratory - Hematology and Cell countson 02-40-4841KdZ2h (Bld) [Mass fraction]4.6 %4.5-6.2FUniversity Hospitals Cleveland Medical CenterComment on above:ADA RECOMMENDED LIMIT 4.0 - 6.0ADA THERAPEUTIC TARGET < 7.0ACTION SUGGESTED> 7.0Lymphocytes/100 WBC (Bld)18.0 %Low20.5-60.0White HospitalMonocytes/100 WBC (Bld)10.0 %1.7-12.0White HospitalLeukocytes [#/volume] corrected for nucleated erythrocytes in Blood by Automated counon 79-70-8475XXO corrected for nucl RBC Auto (Bld) [#/Vol]3.1 10 3/uLLow4.0-11.0[facility] Auto (RBC) [Entitic mass]on 92-92-4478JIY (RBC) [Entitic mass]34.4 scRfjg52.9-34.0White HospitalMCHC Auto (RBC) [Mass/Vol]on 31-43-4853DYSP (RBC) [Mass/Vol]34.7 g/dL29.9-35.2FUniversity Hospitals Cleveland Medical CenterMCV Auto (RBC) [Entitic vol]on 80-58-4089DIF (RBC) [Entitic vol]99.0 eQWorg32.0-94.0White HospitalNo Panel Informationon 70-63-6195Fhttadkh Basophils (Manual)0.00 10 3/uL0.00-0.10White HospitalEosinophils # (Manual)0.00 10 3/uL0.00-0.70White HospitalLymphocytes # (Manual)0.55 10 3/uLLow1.20-3.80White HospitalMonocytes # (Manual)0.31 10 3/uL0.30-0.80OhioHealthegmented Neutrophils # (Manual)2.23 10 3/uL1.4-6.5FUniversity Hospitals Cleveland Medical Center Platelet mean volume Auto (Bld) [Entitic vol]on 12-14-7115Uczounmj mean volume (Bld) [Entitic vol]10.3 fL9.5-13.5FUniversity Hospitals Cleveland Medical CenterPlatelets Auto (Bld) [#/Vol]on 69-19-7727Xizcsbpgk (Bld) [#/Vol]86 10 3/pIDjl990-077 White HospitalRBC Auto (Bld) [#/Vol]on 63-00-0006XOF (Bld) [#/Vol]2.91 10 6/uLLow4.70-6.10OhioHealthegmented neutrophils/100 WBC Manual cnt (Bld)on 86-83-8722Vnhwjownh neutrophils/100 WBC (Bld)72.0 %43.0-75.0OhioHealtherum or plasma albumin/globulin mass ratioon 01-95-0007Tjuzhjp/Globulin [Mass ratio]1.3 {ratio} OhioHealtherum or plasma anion gap determinationon 03-45-7352Fbhow gap [Moles/Vol]8.0 mmol/LFParkview Healtherum or plasma total cholesterol/high density lipoprotein (HDL) cholesterol mass rat on 52-43-7466Stomdnqxlbk.total/Cholesterol in HDL [Mass ratio]1.8 {ratio} White HospitalComment on above:3.3 - 4.4 LOW RISK4.4 - 7.1 AVERAGE RISK7.1 - 11.0 MODERATE RISK>11.0 HIGH RISKBasophils Auto (Bld) [#/Vol] on 26-20-8324Pmdonyqnf (Bld) [#/Vol]0.0 10 3/uL0.0-0.1FUniversity Hospitals Cleveland Medical CenterBasophils/100 WBC Auto (Bld)on 30-66-1331Avitqnbdk/100 WBC (Bld)0.2 % 0.2-2.0White HospitalEosinophils/100 WBC Auto (Bld)on 73-74-7045Rmobdzybvdu/100 WBC (Bld)0.0 %0.9-7.0[facility] Erythrocyte distribution width Auto (RBC) [Ratio]on 96-80-1173Ewtiklmkgyw distribution width (RBC) [Ratio]15.2 %11.0-15.0[facility] Estimated glomerular filtration rate (GFR) non- Americanon 02-15-2024 GFR/1.73 sq M.predicted among non-blacks MDRD (S/P/Bld) [Vol rate/Area] mL/min/{1.73_m2}>=60White HospitalGlobulin Calc (S) [Mass/Vol]on 51-52-8784Wcyshygh (S) [Mass/Vol]3.1 g/dLWhite HospitalHematocrit Auto (Bld) [Volume fraction]on 69-09-6748Xvucdfmcck (Bld) [Volume fraction]29.3 %42.0-54.0White HospitalHemoglobin [Mass/volume] in Bloodon 01-73-1743Tllnneggnb (Bld) [Mass/Vol]9.7 g/dL14.0-18.0 [facility] HospitalLaboratory - Chemistry and Chemistry - challengeon 43-24-9909Lbilbol [Mass/Vol]3.4 g/dL3.4-5.0White HospitalALP [Catalytic activity/Vol]90 U/Y24-008WmrzdymszWhite HospitalALT [Catalytic activity/Vol]31 U/U11-98GauebnjkgWhite Hospital AST [Catalytic activity/Vol]28 U/N09-96WdcbwdpviWhite Hospital Bilirubin [Mass/Vol]0.5 mg/dL0.2-1.0White HospitalCalcium [Mass/Vol]9.1 mg/dL8.5-10.1FUniversity Hospitals Cleveland Medical CenterChloride [Moles/Vol] 107 mmol/J84-971BajwpnhfaWhite HospitalCO2 [Moles/Vol]28.2 mmol/L 21.0-32.0White HospitalCreatinine [Mass/Vol]0.98 mg/dL 0.70-1.30White HospitalGFR/1.73 sq M.predicted MDRD (S/P/Bld) [Vol rate/Area]mL/min/{1.73_m2}>=60White HospitalGlucose [Mass/Vol]184 mg/dT01-685HbsuxidhsWhite HospitalPotassium [Moles/Vol] 3.6 mmol/L3.5-5.1FUniversity Hospitals Cleveland Medical CenterProtein [Mass/Vol]6.5 g/dL 6.4-8.2FParkview Healthodium [Moles/Vol]144 mmol/K370-954 White HospitalUrea nitrogen [Mass/Vol]24.0 mg/dL7.0-18.0 White HospitalUrea nitrogen/Creatinine [Mass ratio]24.5 mg/mg White HospitalLaboratory - Hematology and Cell countson 17-77-4878Mqmfrpcr granulocytes/100 WBC (Bld)0.6 %0.0-0.5FUniversity Hospitals Cleveland Medical CenterLeukocytes [#/volume] corrected for nucleated erythrocytes in Blood by Automated counon 01-26-8890BEV corrected for nucl RBC Auto (Bld) [#/Vol]4.7 10 3/uL4.0-11.0White HospitalLymphocytes Auto (Bld) [#/Vol]on 46-68-9580Lirskemcziy (Bld) [#/Vol]0.2 10 3/uL1.2-3.8White HospitalLymphocytes/100 WBC Auto (Bld)on 02-15-2024 Lymphocytes/100 WBC (Bld)5.1 %20.5-60.0White HospitalMCH Auto (RBC) [Entitic mass]on 61-76-5641YPG (RBC) [Entitic mass]33.3 pg25.9-34.0 White HospitalMCHC Auto (RBC) [Mass/Vol]on 53-62-8907MOZN (RBC) [Mass/Vol]33.1 g/dL29.9-35.2FUniversity Hospitals Cleveland Medical CenterMCV Auto (RBC) [Entitic vol]on 60-30-9832PXP (RBC) [Entitic vol]100.7 fL80.0-94.0 White HospitalMonocytes Auto (Bld) [#/Vol]on 02-15-2024 Monocytes (Bld) [#/Vol]0.3 10 3/uL0.3-0.8[facility] Monocytes/100 WBC Auto (Bld)on 95-32-0443Qidftyvmf/100 WBC (Bld)7.2 %1.7-12.0 White HospitalNeutrophils Auto (Bld) [#/Vol]on 02-15-2024 Neutrophils (Bld) [#/Vol]4.1 10 3/uL1.4-6.5FUniversity Hospitals Cleveland Medical Center Neutrophils/100 WBC Auto (Bld)on 28-04-0672Uiqmfymagjz/100 WBC (Bld)86.9 % 43.0-75.0White HospitalNo Panel Informationon 02-15-2024 Eosinophils # (Auto)0.0 10 3/uL0.0-0.7FUniversity Hospitals Cleveland Medical CenterImmature Granulocyte # (Auto)0.03 10 3/uL0.00-0.03[facility] Platelet mean volume Auto (Bld) [Entitic vol]on 51-08-1158Piwnrkli mean volume (Bld) [Entitic vol]10.6 fL9.5-13.5FUniversity Hospitals Cleveland Medical CenterPlatelets Auto (Bld) [#/Vol]on 15-41-9748Kdnngvnmc (Bld) [#/Vol]60 10 3/mJ742-974EhcwbspyzWhite HospitalRBC Auto (Bld) [#/Vol]on 35-74-8608GGE (Bld) [#/Vol]2.91 10 6/uL4.70-6.10OhioHealtherum or plasma albumin/globulin mass ratioon 64-77-8841Yjirpym/Globulin [Mass ratio]1.1 {ratio} OhioHealtherum or plasma anion gap determinationon 37-42-8189Ljfyu gap [Moles/Vol]12.4 mmol/LFUniversity Hospitals Cleveland Medical Center Basophils/100 WBC Manual cnt (Bld)on 92-10-0435Nvvmqvjab/100 WBC (Bld)1.0 % 0.2-2.0White HospitalCast typing in urine sediment by light microscopyon 59-57-8673Sinbi LM Nom (Urine sed)NONE SEEN #/LPFNONE SEENWhite HospitalEosinophils/100 WBC Manual cnt (Bld)on 02-14-2024 Eosinophils/100 WBC (Bld)0.0 %0.9-7.0[facility] Erythrocyte distribution width Auto (RBC) [Ratio]on 16-03-0354Nfdmpfrvyws distribution width (RBC) [Ratio]15.0 %11.0-15.0[facility] Estimated glomerular filtration rate (GFR) non- Americanon 02-14-2024 GFR/1.73 sq M.predicted among non-blacks MDRD (S/P/Bld) [Vol rate/Area] mL/min/{1.73_m2}>=60White HospitalHematocrit Auto (Bld) [Volume fraction]on 03-42-9635Tigivjasjx (Bld) [Volume fraction]28.2 %42.0-54.0 White HospitalHemoglobin [Mass/volume] in Bloodon 02-14-2024 Hemoglobin (Bld) [Mass/Vol]9.6 g/dL14.0-18.0[facility] Laboratory - Chemistry and Chemistry - challengeon 45-71-1669Qvzunlkxh Ql (U) NegativeNEGATIVEWhite HospitalGlucose (U) [Mass/Vol]250 mg/dL NEGATIVEWhite HospitalKetones Ql (U)NegativeNEGATIVEWhite HospitalpH (U)5.5 [pH]5.0-9.0[facility] Specific gravity (U) [Rel density]1.0251.005-1.025White HospitalUrobilinogen Qn (U)0.2 {Jun'U}/dL0.2-1.0White HospitalCalcium [Mass/Vol]8.7 mg/dL8.5-10.1FUniversity Hospitals Cleveland Medical Center Chloride [Moles/Vol]106 mmol/L19-737LfffzczjlWhite HospitalCO2 [Moles/Vol]30.0 mmol/L21.0-32.0White HospitalCreatinine [Mass/Vol]1.12 mg/dL0.70-1.30White HospitalGFR/1.73 sq M.predicted MDRD (S/P/Bld) [Vol rate/Area]mL/min/{1.73_m2}>=60White HospitalGlucose [Mass/Vol]251 mg/oD85-032XbgswgkrbWhite Hospital Potassium [Moles/Vol]4.1 mmol/L3.5-5.1FParkview Healthodium [Moles/Vol]142 mmol/D108-681YrkybyiiwWhite HospitalUrea nitrogen [Mass/Vol]29.0 mg/dL7.0-18.0White HospitalUrea nitrogen/Creatinine [Mass ratio]25.9 mg/mgWhite Hospital Laboratory - Hematology and Cell countson 50-63-3284Xvvj form neutrophils/100 WBC (Bld)2.0 %0-5FUniversity Hospitals Cleveland Medical CenterLymphocytes/100 WBC (Bld)1.0 % 20.5-60.0White HospitalMonocytes/100 WBC (Bld)4.0 %1.7-12.0 [facility] HospitalLaboratory - Microbiology and Antimicrobial susceptibilityOrdered By: Bj Ortega on 04-62-8277Jepdtppe identified Cx Nom (U)White HospitalLaboratory - Specimen informationon 11-47-1020Ctfjtyxyrb (U)CLEARCLEARFUniversity Hospitals Cleveland Medical CenterColor (U) YELLOWYELLOWWhite HospitalLaboratory - Urinalysison 18-70-5957Ibrwhifja sediment LM Ql (Urine sed)FEWWhite HospitalLeukocyte esterase Test strip Ql (U)NegativeNEGATIVEWhite HospitalNitrite Ql (U)PositiveNEGATIVEWhite Hospital Protein Ql (U)>=300 mg/dLNEG/TRACEWhite HospitalLeukocytes [#/volume] corrected for nucleated erythrocytes in Blood by Automated counon 95-51-8710CWK corrected for nucl RBC Auto (Bld) [#/Vol]4.5 10 3/uL4.0-11.0 [facility]H Auto (RBC) [Entitic mass]on 80-83-0747NOK (RBC) [Entitic mass]34.2 pg25.9-34.0White HospitalMCHC Auto (RBC) [Mass/Vol]on 49-16-4255TCHA (RBC) [Mass/Vol]34.0 g/dL29.9-35.2FCommunity Regional Medical CenterV Auto (RBC) [Entitic vol]on 08-97-4106GDD (RBC) [Entitic vol]100.4 fL80.0-94.0White HospitalMucus LM Ql (Urine sed)on 63-56-3360Qiznr Ql (Urine sed)NONE SEENNONE [facility] CenterNo Panel Informationon 19-53-8680Uqxru BacteriaLARGE #/HPFNONE [facility] CenterUrine Culture ReflexedYEMemorial Health System Selby General HospitalUrine Occult BloodLARGENEGATIVEWhite Hospital Urine Other CrystalsSeen #/HPFNone [facility] HospitalUrine RBC0-2 #/HPF0-2FUniversity Hospitals Cleveland Medical CenterUrine Squamous Epithelial Cells RARE #/LPFNONE/RAREWhite HospitalUrine WBC2-5 #/HPFNONE SEEN White HospitalAbsolute Basophils (Manual)0.04 10 3/uL 0.00-0.10White HospitalBand Neutrophils # (Manual)0.1 10 3/uL 0.0-0.3FUniversity Hospitals Cleveland Medical CenterEosinophils # (Manual)0.00 10 3/uL 0.00-0.70White HospitalLymphocytes # (Manual)0.04 10 3/uL 1.20-3.80White HospitalMonocytes # (Manual)0.18 10 3/uL 0.30-0.80OhioHealthegmented Neutrophils # (Manual)4.14 10 3/uL1.4-6.5FUniversity Hospitals Cleveland Medical CenterPlatelet mean volume Auto (Bld) [Entitic vol]on 80-42-4306Adwvqqlu mean volume (Bld) [Entitic vol]10.4 fL 9.5-13.5FUniversity Hospitals Cleveland Medical CenterPlatelets Auto (Bld) [#/Vol]on 83-64-3136Ynqcnwelq (Bld) [#/Vol]65 10 3/hT364-143VufifkrsgWhite HospitalRBC Auto (Bld) [#/Vol]on 23-22-7753PPY (Bld) [#/Vol]2.81 10 6/uL4.70-6.10 OhioHealthegmented neutrophils/100 WBC Manual cnt (Bld) on 26-13-3383Tiphehctw neutrophils/100 WBC (Bld)92.0 %OhioHealtherum or plasma anion gap determinationon 95-52-9165Zsoqo gap [Moles/Vol] 10.1 mmol/LFParkview Healthcreenson 56-71-2786Rtvcghj [id number]#1.00CD:127NormSelect Medical Specialty Hospital - YoungstownAmbulatory Visit Summaryon [id number] Visit Summary BRIAN MEEHAN Gianna :1945 Visit Date:12/11/2022 Ambulatory Visit Instructions Your Diagnosis BPH with obstruction/lower urinary tract symptoms Kidney stones Other obstructive and reflux uropathy Your Care Team Attending Physician - YEFRI HUIZAR, Dominic Handley Primary Care Physician - JUAN A WELSH DO This Is Your Medications List allopurinol [...] When: Only if needed Comments: PRN Where: [facility] [place] [address]- Medications What How Much When Instructions Unchanged [...] (NovoLog Mix 70/ 30 FlexPen) 8 Units SubcutaneousOnce daily with supper Contact prescribing physician if questions or concerns Unchanged insulin aspart-insulin aspart protamine (NovoLog Mix 70/ 30) 20 Units Subcutaneous Once aday (in the morning) Contact prescribing physician if [...] of calcium at each meal.Foods that contain 200?500 mg of calcium per serving include: ? 8 oz (237 ml) of milk, fortified nondairy milk, and fortified (more content not included)...[facility] HospitalLab Reportson 29-39-3653Khf Reports [id number]:127NormalMer[facility] Health [facility] Educationon 41-37-7546Tnnvmds EducationUrology Dietary Guidelines to Help Prevent Kidney Stones [...] portion sizes. For most meat and fish, oneserving is about the size of one deck [...] These include: ? Avocado. ? Banana. ? [place], prune, carrot, or tomato juice. ? Baked potato. ? Cabbage. ? Beans and split peas. General instructions ? Drink enough fluid to keep your urine clear or pale yellow. This is the most important thing you can do. ? Talk to your health care provider and dietitian about taking daily supplements. Depending on yourhealth and the cause of your kidney stones, [...] Work with your dietitian to find strategies andan eating plan that works best for you. [...] and other foods Seasoning blends with salt. Huseyin bernardo (more content not included)...NormalUc West Chester HospitalRAD - MISCon [id number] [facility] [place] [id number]:127NormMelanie Grace Medical CenterUrology Office/Clinic Noteon [id number] Office/Clinic NoteChief Complaint pt here today for a 1 [...] and history for this patient from Dr. Asif There have been no associated fever, chills, [...] denies hematuria, denies discharge, denies urinary frequency, deniesurinary hesitancy, denies nocturia, denies incontinence, denies genital [...] stated he is urinating fine and have nobothersome urinary complaints at this time. PSA 12/08/22- [...] Dominic Handley, URL Only if needed [address] [place] [address]- Additional Instructions: PRN Patient Education Dietary Guidelines to Help Prevent Kidney Stones I, Annemarie Braun, personally scribed for Dr. Asif on 12/11/2022 13:48:15. . Documentation recorded by the scribe, Amberly Bermudez, accurately reflects the services(s) I performed and decisions made by me. Authenticated by Dr. Asif on 12/11/2022 13:59:21. 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 Comment on above:Result Comment: Electronically Signed By: Dominic ASIF MD\.br\Date and Time Signed: 12/11/22 13:59 EST\.br\Electronically Co-Signed By: Annemarie Braun\.br\Date and Time Co-Signed: 12/11/22 13:48ESTXR KUB 1 VIEWon [id number] KUB 1 VIEWEXAMINATION: XR KUB 1 VIEW HISTORY: Kidney stone COMPARISON: No relevant comparison available. FINDINGS: KIDNEY/URETER - RIGHT: Multiple nephroliths KIDNEY/URETER - LEFT: Multiple nephroliths PELVIS: No visible ureteral calcifications. Any visible calcifications favor phleboliths. BOWEL: No abnormal dilation or deviation. BONES: Moderate degenerative changes. Bilateral hip osteoarthropathy OTHER: Splenic calcifications. Vascular calcifications IMPRESSION: Bilateral nephrolithiasis Electronically authenticated by: SHAKA BLANCO Date: 2022-12-09 12:10NormMercy Health Tiffin HospitalOXCARBAZEPINE / TRILEPTALon 15-62-6043Opfrklsvjfojm81 ug/mL Critically cpem64-22VrdUpper Valley Medical CenterComment on above:Result Comment: This test was developed and its performance characteristics determined by [facility]. It has not been cleared or approved by the Food and Drug Administration. Detection Limit = 1Performed By: #### BMP #### [facility] [address] [place] [address] Dr. Kelly Marquez AUTO DIFFon [id number] #0.0 103/ulNormal0.0-0.1The [facility] HospitalComment on above:Performed By: #### BMP #### [facility] [address] [place] [address] Dr. Kelly MukherjeeBasophils/100 WBC (Bld)0.3 %Normal0.2-2.0[facility] Comment on above:Performed By: #### BMP #### [facility] [address] [place] [address] Dr. Kelly Bernard #0.1 103/ulNormal0.0-0.7The [facility] HospitalComment on above: Performed By: #### BMP #### [facility] [address] [place] [address] Dr. Kelly Liangosinophils/100 WBC (Bld)2.2 %Normal0.9-7.0[facility] Comment on above:Performed By: #### BMP #### [facility] [address] [place] [address] Dr. Kelly Liangrythrocyte distribution width (RBC) [Ratio]14.8 %Sbkxju87.0-15.0 [facility] CenterComment on above:Performed By: #### BMP #### [facility] [address] [place] [address] Dr. Kelly MukherjeeHematocrit (Bld) [Volume fraction]29.5 %Critically low42.0-54.0 [facility] CenterComment on above:Performed By: #### BMP #### [facility] [address] [place] [address] Dr. Kelly MukherjeeHemoglobin (Bld) [Mass/Vol]10.3 g/dLCritically low14.0-18.0[facility] CenterComment on above:Performed By: #### BMP #### [facility] [address] [address] [address] Kelly Craig #0.01 10e3/ulNormal0.00-0.03The [facility] HospitalComment on above:Performed By: #### BMP #### [facility] [address] [address] [address] Kelly Craig %0.3 %Normal0.0-0.5The [facility] HospitalComment on above: Performed By: #### BMP #### [facility] [address] [address] [address] Kelly Hay #0.5 103/ulCritically low1.2-3.8The [facility] Comment on above:Performed By: #### BMP #### [facility] [address] [place] [address] Dr. Kelly Boydhocytes/100 WBC (Bld)16.0 %Critically low20.5-60.0The [facility] HospitalComment on above:Performed By: #### BMP #### [facility] [address] [place] [address] Dr. Kelly GarciaUAL DIFF REQNONormalThe [facility] HospitalComment on above: Performed By: #### BMP #### [facility] [address] [place] [address] Dr. Kelly Rahman (RBC) [Entitic mass]34.1 pgCritically high25.9-34.0The [facility] HospitalComment on above:Performed By: #### BMP #### [facility] [address] [place] [address] Dr. Kelly MukherjeeNORTHWELL HEALTH (RBC) [Mass/Vol]34.9 g/vMCsfkff12.9-35.2The [facility] HospitalComment on above:Performed By: #### BMP #### [facility] [address] [place] [address] Dr. Kelly Rahman (RBC) [Entitic vol]97.7 fLCritically high80.0-94.0The [facility] HospitalComment on above:Performed By: #### BMP #### [facility] [address] [address] [address] Kelly Rodriguez #0.2 103/ulCritically low0.3-0.8The [facility] HospitalComment on above:Performed By: #### BMP #### [facility] [address] [address] [address] Kelly Spiveyocytes/100 WBC (Bld)5.8 %Normal1.7-12.0The [facility] Comment on above:Performed By: #### BMP #### [facility] [address] [place] [address] Dr. Kelly Alexis #2.4 103/ulNormal1.4-6.5The [facility] HospitalComment on above:Performed By: #### BMP #### [facility] [address] [place] [address] Dr. Kelly Delucautrophils/100 WBC (Bld)75.4 %Critically high43.0-75.0The [facility] HospitalComment on above:Performed By: #### BMP #### [facility] [address] [address] [address] Kelly Stinsonlet mean volume (Bld) [Entitic vol]10.1 fLNormal9.5-13.5The [facility] HospitalComment on above:Performed By: #### BMP #### [facility] [address] [place] [address] Dr. Kelly MukherjeePLT63 103/ulCritically nrp689-705Zgg [facility] HospitalComment on above:Performed By: #### BMP #### [facility] [address] [place] [address] Dr. Kelly MukherjeeRBC3.02 106/ulCritically low4.70-6.10The [facility] HospitalComment on above:Performed By: #### BMP #### [facility] [address] [place] [address] Dr. Kelly MukherjeeWBC3.1 103/ulCritically low4.0-11.0The [facility] HospitalComment on above:Performed By: #### BMP #### [facility] [address] [address] [address] Kelly Betancourt URINE PROFILEon 30-20-7274Kwsqssbhi Ql (U)NegativeNormal NEGATIVEUpper Valley Medical CenterComment on above:Performed By: #### BMP #### [facility] [address] [address] [address] Kelly MukherjeeClarity (U)CLEARNormalCLEARUpper Valley Medical CenterComment on above: Performed By: #### BMP #### [facility] [address] [address] [address] Kelly Staleylor (U)LT. YELLOWNormalYELLOWUpper Valley Medical CenterComment on above:Performed By: #### BMP #### [facility] [address] [place] [address] Dr. Kelly Jett micrscopic examination will be performed if indicated. NormalUpper Valley Medical CenterComment on above:Performed By: #### BMP #### [facility] [address] [address] [address] Kelly MukherjeeGlucose Ql (U)250 mg/dlAbnormalGenesis Hospital Comment on above:Performed By: #### BMP #### [facility] [address] [place] [address] Dr. Kelly MukherjeeHemoglobin Ql (U)NegativeBoone Hospital CenteralGenesis Hospital Comment on above:Performed By: #### BMP #### [facility] [address] [address] [address] Kelly MukherjeeKetones Ql (U)NegativeNormalNEGATIVEUpper Valley Medical CenterComment on above:Performed By: #### BMP #### [facility] [address] [address] [address] Kelly MukherjeeLEUKOCYTESNegativeNormalNEGATIVEUpper Valley Medical CenterCompromedica [facility] on above:Performed By: #### BMP #### [facility] [address] [address] [address] Kelly MukherjeeNitrite Ql (U)NegativeNormalNEGATIVEUpper Valley Medical CenterComment on above:Performed By: #### BMP #### [facility] [address] [address] [address] Kelly MukherjeepH (U)7.0 [pH]Normal5-9The [facility] HospitalComment on above: Performed By: #### BMP #### [facility] [address] [address] [address] Kelly MukherjeeProtein (U) [Mass/Vol]100 mg/dLAbnormalNEGATIVE/ TRACEThe [facility] HospitalComment on above:Performed By: #### BMP #### [facility] [address] [place] [address] Dr. Kelly MukherjeeSPEC GRAVITY1.129Pqibfa1.005-<=1.025The [facility] HospitalComment on above:Performed By: #### BMP #### [facility] [address] [place] [address] Dr. Kelly MukherjeeUR MICRO INDNOT INDICATEDNormalThe [facility] HospitalComment on above:Performed By: #### BMP #### [facility] [address] [address] [address] Kelly Changbilinogen Qn (U)0.2 {Jun'U}/dLNormal0.2 - 1.0The [facility] HospitalComment on above:Performed By: #### BMP #### [facility] [address] [place] [address] Dr. Kelly MukherjeePOINT OF CARE GLUCOSEon 38-50-8098Kzisboy [Mass/Vol]253 mg/dL Critically xyiy02-427Qlu [facility] HospitalComment on above:Performed By: #### POCGLUC #### [facility] [address] [place] [address] Dr. Kelly MukherjeePROF CHEM 8 (BAS METB)on 56-28-7762Tvvvj gap [Moles/Vol]8.5 mmol/LNormalUpper Valley Medical CenterComment on above:Performed By: #### BMP #### [facility] [address] [place] [address] Dr. Kelly MukherjeeCalcium [Mass/Vol]8.7 mg/dLNormal8.5-10.1[facility] Comment on above:Performed By: #### BMP #### [facility] [address] [place] [address] Dr. Kelly MukherjeeChloride [Moles/Vol]106 mmol/DCdimay60-003HvrUpper Valley Medical Center Comment on above:Performed By: #### BMP #### [facility] [address] [address] [address] Kelly MukherjeeCO2 [Moles/Vol]29.0 mmol/DWwqtnr71.0-32.0[facility] Comment on above:Performed By: #### BMP #### [facility] [address] [place] [address] Dr. Kelly MukherjeeCreatinine [Mass/Vol]0.84 mg/dLNormal0.70-1.30The [facility] HospitalComment on above:Performed By: #### BMP #### [facility] [address] [place] [address] Dr. Kelly LiangGFR-AF KOSOVAN>60Normal>=60The [facility] HospitalComment on above:Performed By: #### BMP #### [facility] [address] [place] [address] Dr. Kelly LiangGFR-NON AF KOSOVAN>60Normal>=60[facility] CenterComment on above:Performed By: #### BMP #### [facility] [address] [address] [address] Kelly MukherjeeGlucose [Mass/Vol]119 mg/dLCritically njxm33-146Ghz [facility] HospitalComment on above:Performed By: #### BMP #### [facility] [address] [place] [address] Dr. Kelly MukherjeePotassium [Moles/Vol]3.5 mmol/LNormal3.5-5.1[facility] Comment on above:Performed By: #### BMP #### [facility] [address] [place] [address] Dr. Kelly MukherjeeSodium [Moles/Vol]140 mmol/YRtdqkw404-878CcbUpper Valley Medical Center Comment on above:Performed By: #### BMP #### [facility] [address] [address] [address] Kelly Bain nitrogen [Mass/Vol]21.0 mg/dLCritically high7.0-18.0The [facility] HospitalComment on above:Performed By: #### BMP #### [facility] [address] [place] [address] Dr. Kelly MukherjeeUrea nitrogen/Creatinine [Mass ratio]25.0 mg/mgNormalThe [facility] HospitalComment on above:Performed By: #### BMP #### [facility] [address] [place] [address] Dr. Kelly Marquez AUTO DIFFon 93-49-1767AYSC #0.0 103/ulNormal0.0-0.1The [facility] HospitalComment on above:Performed By: #### POCGLUC #### [facility] [address] [place] [address] Dr. Kelly MukherjeeBasophils/100 WBC (Bld)0.2 %Normal0.2-2.0The [facility] Comment on above:Performed By: #### POCGLUC #### [facility] [address] [place] [address] Dr. Kelly Bernard #0.0 103/ulNormal0.0-0.7The [facility] HospitalComment on above: Performed By: #### POCGLUC #### [facility] [address] [place] [address] Dr. Kelly Liangosinophils/100 WBC (Bld)1.0 %Normal0.9-7.0The [facility] Comment on above:Performed By: #### POCGLUC #### [facility] [address] [place] [address] Dr. Kelly Liangrythrocyte distribution width (RBC) [Ratio]15.1 %Critically high 11.0-15.0The [facility] HospitalComment on above:Performed By: #### POCGLUC #### [facility] [address] [place] [address] Dr. Kelly MukherjeeHematocrit (Bld) [Volume fraction]30.3 %Critically low42.0-54.[address] [facility] HospitalComment on above:Performed By: #### POCGLUC #### [facility] [address] [place] [address] Dr. Kelly MukherjeeHemoglobin (Bld) [Mass/Vol]10.7 g/dLCritically low14.0-18.0The [facility] HospitalComment on above:Performed By: #### POCGLUC #### [facility] [address] [place] [address] Dr. Kelly Craig #0.01 10e3/ulNormal0.00-0.03The [facility] HospitalComment on above:Performed By: #### POCGLUC #### [facility] [address] [place] [address] Dr. Kelly Craig %0.2 %Normal0.0-0.5The [facility] HospitalComment on above: Performed By: #### POCGLUC #### [facility] [address] [place] [address] Dr. Kelly Hay #0.4 103/ulCritically low1.2-3.8The [facility] Comment on above:Performed By: #### POCGLUC #### [facility] [address] [place] [address] Dr. Kelly Cheneymphocytes/100 WBC (Bld)8.9 %Critically low20.5-60.0The [facility] HospitalComment on above:Performed By: #### POCGLUC #### [facility] [address] [place] [address] Dr. Kelly GarciaUAL DIFF REQNONormalThe [facility] HospitalComment on above: Performed By: #### POCGLUC #### [facility] [address] [place] [address] Dr. Kelly Gregg (RBC) [Entitic mass]34.1 pgCritically high25.9-34.0The [facility] HospitalComment on above:Performed By: #### POCGLUC #### [facility] [address] [place] [address] Dr. Kelly RahmanHC (RBC) [Mass/Vol]35.3 g/dLCritically high29.9-35.2The [facility] HospitalComment on above:Performed By: #### POCGLUC #### [facility] [address] [place] [address] Dr. Kelly RahmanV (RBC) [Entitic vol]96.5 fLCritically high80.0-94.0The [facility] HospitalComment on above:Performed By: #### POCGLUC #### [facility] [address] [place] [address] Dr. Kelly Rodriguez #0.2 103/ulCritically low0.3-0.8The [facility] HospitalComment on above:Performed By: #### POCGLUC #### [facility] [address] [place] [address] Dr. Kelly Spiveyocytes/100 WBC (Bld)6.0 %Normal1.7-12.0The [facility] Comment on above:Performed By: #### POCGLUC #### [facility] [address] [place] [address] Dr. Kelly Alexis #3.4 103/ulNormal1.4-6.5The [facility] HospitalComment on above:Performed By: #### POCGLUC #### [facility] [address] [place] [address] Dr. Kelly Delucautrophils/100 WBC (Bld)83.7 %Critically high43.0-75.0The [facility] HospitalComment on above:Performed By: #### POCGLUC #### [facility] [address] [place] [address] Dr. Kelly Stinsonlet mean volume (Bld) [Entitic vol]10.2 fLNormal9.5-13.5The [facility] HospitalComment on above:Performed By: #### POCGLUC #### [facility] [address] [place] [address] Dr. Kelly LawrenceT76 103/ulCritically ljk986-491Sgn [facility] HospitalComment on above:Performed By: #### POCGLUC #### [facility] [address] [place], [place] [address] Dr. Kelly MukherjeeRBC3.14 106/ulCritically low4.70-6.10The [facility] HospitalComment on above:Performed By: #### POCGLUC #### [facility] [address] [place], [place] [address] Dr. Kelly MukherjeeWBC4.0 103/ulNormal4.0-11.0The [facility] HospitalComment on above: Performed By: #### POCGLUC #### [facility] [address] [place], [place] [address] Dr. Kelly MukherjeeCT HEAD WO CONon [id number] HEAD WO CONEXAMINATION: CT HEAD WO CON HISTORY: HEADACHE after [...] Electronically authenticated by: SYLVESTER BARBOUR Date: 2022-10-04 15:34NormalThe [facility] HospitalCovid-19 PCR (CVDTBH)on 37-19-2135MVPL-CoV-2 (COVID-19) RNA ABIMBOLA+probe Ql (Unsp spec)Not detectedNormalNOT DETECTEDThe [facility] Comment on above:Result Comment: When diagnostic testing is negative, the [...] for this test is supported by the Electrical Logger of Health and Human Service's declaration that circumstances exist to justify the emergency use of in vitro diagnostics for the detection and/or diagnosis of the virus that causes COVID-19. This EUA will remain in effect for the duration of the COVID-19 declaration justifying emergency of IVDs, unless it is terminated or revoked by the FDA (after which the test may no longer be used).Performed By: #### CVDTBH #### [facility] [address] [place] [address] Dr. Kelly MukherjeePOINT OF CARE GLUCOSEon 67-51-2283Bawizmt [Mass/Vol]134 mg/dL Critically efxt07-506GcoUpper Valley Medical CenterComment on above:Performed By: #### POCGLUC #### [facility] [address] [place] [address] Dr. Kelly MukherjeePROF CHEM 8 (BAS METB)on 23-13-2951Enskd gap [Moles/Vol]12.9 mmol/LNormalUpper Valley Medical CenterComment on above:Performed By: #### BMP #### [facility] [address] [place] [address] Dr. Kelly MukherjeeCalcium [Mass/Vol]9.0 mg/dLNormal8.5-10.1[facility] Comment on above:Performed By: #### BMP #### [facility] [address] [place] [address] Dr. Kelly MukherjeeChloride [Moles/Vol]106 mmol/FBiokef95-783XzhUpper Valley Medical Center Comment on above:Performed By: #### BMP #### [facility] [address] [place] [address] Dr. Kelly MukherjeeCO2 [Moles/Vol]27.2 mmol/CFtnzwp28.0-32.0[facility] Comment on above:Performed By: #### BMP #### [facility] [address] [place] [address] Dr. Kelly MukherjeeCreatinine [Mass/Vol]0.98 mg/dLNormal0.70-1.30The [facility] HospitalComment on above:Performed By: #### BMP #### [facility] [address] [address] [address] Kelly LiangGFR-AF KOSOVAN>60Normal>=60The [facility] HospitalComment on above:Performed By: #### BMP #### [facility] [address] [place] [address] Dr. Kelly LiangGFR-NON AF KOSOVAN>60Normal>=60The [facility] HospitalComment on above:Performed By: #### BMP #### [facility] [address] [place] [address] Dr. Kelly MukherjeeGlucose [Mass/Vol]146 mg/dLCritically imix21-678Glf [facility] HospitalComment on above:Performed By: #### BMP #### [facility] [address] [place] [address] Dr. Kelly MukherjeePotassium [Moles/Vol]4.1 mmol/LNormal3.5-5.1The [facility] Comment on above:Performed By: #### BMP #### [facility] [address] [place] [address] Dr. Kelly MukherjeeSodium [Moles/Vol]142 mmol/CJxrlgw710-928Qmw [facility] Comment on above:Performed By: #### BMP #### [facility] [address] [place] [address] Dr. Kelly MukherjeeUrea nitrogen [Mass/Vol]24.0 mg/dLCritically high7.0-18.0The [facility] HospitalComment on above:Performed By: #### BMP #### [facility] [address] [place] [address] Dr. Kelly MukherjeeUrea nitrogen/Creatinine [Mass ratio]24.5 mg/mgNoUK HealthcareComment on above:Performed By: #### BMP #### [facility] [address] [place] [address] Dr. Kelly MukherjeePROTIMEon [id number] Coag (PPP) [Relative time]1.06 {INR} NormalThe [facility] HospitalComment on above:Performed By: #### CVDTBH #### [facility] [address] [place] [address] Dr. Kelly Godoy GUIDELINESSEE BELOWSycamore Medical CenterComment on above:Result Comment: DESIRED INR: 2.0 - 3.0 CONDITIONS NOT LISTED BELOW 2.5 - 3.5 FOR PROSTHETIC HEART VALVE REPLACEMENT 2.5 - 3.5 RECURRENT THROMBOSIS Performed By: #### CVDTBH #### [facility] [address] [place] [address] Dr. Kelly MukherjeePT Coag (PPP) [Time]11.4 sNormal9.0-11.6The [facility] Comment on above:Performed By: #### CVDTBH #### [facility] [address] [place] [address] Dr. Kelly Mayer 70-98-8142uOHQ Coag (Bld) [Time]24.5 xGsczof58.3-36.2[facility] CenterComment on above:Performed By: #### CVDTBH #### [facility] [address] [place] [address] Dr. Kelly Rajput, HIGH SENSITIVITYon 09-18-9420WDLXCZ3.1 pg/mLNormal 4.0-76.1[facility] Medical CenterComment on above:Result Comment: CUT-OFF POINTS HAVE BEEN ESTABLISHED BASED ON THE FOURTH UNIVERSAL DEFINITIONS OF MYOCARDIAL INFARCTION. THE UPPER REFERENCE LIMIT (URL) OF TROPONIN, DEFINED THE 99TH PERCENTILE OF cTnI DISTRIBUTION IN A REFERENCE POPULATION, HAS BEEN CONFIRMED THE DECISION THRESHOLD FOR MD DIAGNOSIS.Performed By: #### CVDTBH #### [facility] [address] [place] [address] Dr. Kelly MukherjeeXR CHEST 1 Von 31-63-5175OK CHEST 1 VEXAM: XR CHEST 1 V at 1450 hours [...] Electronically authenticated by: SYLVESTER BARBOUR Date: 2022-10-04 15:31[facility] [id number] ([place]MASA) BRIAN MEEHAN ([id number]) 1945 M Date Time Provider Department 09/01/22 ROLANDO KAY During your visit today, we recorded the following information about you: Rolando Kay RN 09/01/2022 1:18 PM Signed ----- Message from Tricia Crespo MD sent at 08/30/2022 4:41 PM EST ----- Please call with stable labs and make sure that he is adequaly hydrated every day Rolando Kay RN 09/01/2022 1:20 PM Signed Pt's spouse notified and verbalizes understanding. Reports the pt is drinking at least 48 oz per day. Advised they try for at least 64 oz if possible. Spouse verbalizes understanding. Rolando Kay RN Allergies As of Date: 09/01/2022 Noted Allergy Reaction NEOMYCIN 08/18/2009 2 - Rash Comments: Other reaction(s): AOF Other reaction(s): AOF Date Reviewed: 08/30/2022 Reviewed by: Tricia Crespo MD - Fully Assessed Reason for Visit: Care Coordination [1659] Cmt: Lab Results Prescriptions as of 09/01/2022 [...] color [R39.89] 05/21/2014 Encounter Status:Closed by ROLANDO KAY on 09/01/22NormalCSelect Medical [facility] W Auto Differential panel (Bld)on 22-85-9014Hngfnrnpz (Bld) [#/Vol] 10*3/uLNormal<0.11COur Lady of Mercy Hospital - AndersonComment on above:Order Comment: Specimen Type: BLOOD SPECIMEN Ordering Facility: [facility] Address: [address] [address]Performed By: #### 85536-0 #### [facility] CLIA [id number] [address] [place] [address] 00300Pjfwsjcnu/100 WBC (Bld)0.5 %NormalSelect Medical [facility] Clinic [facility] [place] Comment on above:Order Comment: Specimen Type: BLOOD SPECIMEN Ordering Facility: [facility] Address: [address] [place], [place] [address]Performed By: #### 33774-0 #### [facility] CLIA [id number] [address] [place] [address] 61834Orczstpfgrlg cell count method Nom (Bld)AutoNormalCOur Lady of Mercy Hospital - AndersonComment on above:Order Comment: Specimen Type: BLOOD SPECIMEN Ordering Facility: [facility] Address: [address] [place], [place] [address]Performed By: #### 53684-0 #### [facility] CLIA [id number] [address] [place] [address] 91175Zkobtohgszy (Bld) [#/Vol]0.08 10*3/uLNormal<0.46[facility], BeachwoodCompromedica [facility] on above:Order Comment: Specimen Type: BLOOD SPECIMEN Ordering Facility: [facility] Address: [address] [place], [place] [address]Performed By: #### 14661-6 #### [facility] CLIA [id number] [address] [place] [address] 39450Jzwwvlzixww/100 WBC (Bld)2.1 %NormalSelect Medical [facility] [place] Comment on above:Order Comment: Specimen Type: BLOOD SPECIMEN Ordering Facility: [facility] Address: [address] [place], [place] [address]Performed By: #### 47932-5 #### [facility] CLIA [id number] [address] [place] [address] 13991Nvagkzqlwcn distribution width (RBC) [Ratio]15.9 %High 11.5-15.0[facility] on above:Order Comment: Specimen Type: BLOOD SPECIMEN Ordering Facility: [facility] Address: [address] [address]Performed By: #### 21264-2 #### [facility] CLIA [id number] [address] [place] [address] 01764Frefhvnbry (Bld) [Volume fraction]33.5 %Low39.0-51.0[facility] on above:Order Comment: Specimen Type: BLOOD SPECIMEN Ordering Facility: [facility] Address: [address] [place], [place] [address]Performed By: #### 73042-1 #### [facility] CLIA [id number] [address] [place] [address] 67177Wtbzctpabd (Bld) [Mass/Vol]11.4 g/dLLow13.0-17.0[facility] on above:Order Comment: Specimen Type: BLOOD SPECIMEN Ordering Facility: [facility] Address: [address] [place], [place] [address]Performed By: #### 80323-0 #### [facility] CLIA [id number] [address] [place] [address] 75782Brajnuia granulocytes (Bld) [#/Vol]10*3/uLNormal<0.10[facility] on above:Order Comment: Specimen Type: BLOOD SPECIMEN Ordering Facility: [facility] Address: [address] [place], [place] [address]Performed By: #### 22009-9 #### [facility] CLIA [id number] [address] [place] [address] 32817Sxvspjot granulocytes/100 WBC (Bld)0.3 %NormalGerman Hospital on above:Order Comment: Specimen Type: BLOOD SPECIMEN Ordering Facility: [facility] Address: [address] [place], [place] [address]Performed By: #### 58945-9 #### [facility] CLIA [id number] [address] [place] [address] 15880Rtwvsbzdfdj (Bld) [#/Vol]0.60 10*3/uLLow1.00-4.00[facility] on above:Order Comment: Specimen Type: BLOOD SPECIMEN Ordering Facility: [facility] Address: [address] [place], [place] [address]Performed By: #### 54775-5 #### [facility] CLIA [id number] [address] [place] [address] 02106Goinbvwllfa/100 WBC (Bld)16.1 %NormalGerman Hospital on above:Order Comment: Specimen Type: BLOOD SPECIMEN Ordering Facility: [facility] Address: [address] [place], [place] [address]Performed By: #### 74233-8 #### [facility] CLIA [id number] [address] [place] [address] 03972JOC (RBC) [Entitic mass]33.3 kzRczkof73.0-34.0[facility] on above:Order Comment: Specimen Type: BLOOD SPECIMEN Ordering Facility: [facility] Address: [address] [place], [place] [address]Performed By: #### 45390-4 #### [facility] CLIA [id number] [address] [place] [address] 06714WXWZ (RBC) [Mass/Vol]34.0 g/zAUsampk65.5-36.0[facility] on above:Order Comment: Specimen Type: BLOOD SPECIMEN Ordering Facility: [facility] Address: [address] [place], [place] [address]Performed By: #### 11231-7 #### [facility] CLIA [id number] [address] [place] [address] 82924ZCQ (RBC) [Entitic vol]98.0 yCBjvfks99.0-100.0[facility] on above:Order Comment: Specimen Type: BLOOD SPECIMEN Ordering Facility: [facility] Address: [address] [address]Performed By: #### 42564-2 #### [facility] CLIA [id number] [address] [place] [address] 07282Hhbfcdnot (Bld) [#/Vol]0.26 10*3/uLNormal<0.87[facility] on above:Order Comment: Specimen Type: BLOOD SPECIMEN Ordering Facility: [facility] Address: [address] [place], [place] [address]Performed By: #### 68087-4 #### [facility] CLIA [id number] [address] [place] [address] 70333Ddagjjzna/100 WBC (Bld)7.0 %NormalSelect Medical [facility] [place] Comment on above:Order Comment: Specimen Type: BLOOD SPECIMEN Ordering Facility[facility] Address: [address] [place], [place] [address]Performed By: #### 39261-0 #### [facility] CLIA [id number] [address] [place] [address] 57354Ehwrtcnrpms (Bld) [#/Vol]2.76 10*3/uLNormal1.45-7.50[facility] on above:Order Comment: Specimen Type: BLOOD SPECIMEN Ordering Facility: [facility] Address: [address] [place], [place] [address]Performed By: #### 60704-1 #### [facility] CLIA [id number] [address] [place] [address] 72138Benvsseejhz/100 WBC (Bld)74.0 %NormalGerman Hospital on above:Order Comment: Specimen Type: BLOOD SPECIMEN Ordering Facility[facility] Address: [address] [place], [place] [address]Performed By: #### 41441-0 #### [facility] CLIA [id number] [address] [place] [address] 89198Rzkdlqorw RBC (Bld) [#/Vol]10*3/uLNormal<0.01[facility] on above:Order Comment: Specimen Type: BLOOD SPECIMEN Ordering Facility[facility] Address: [address] [place], [place] [address]Performed By: #### 49636-8 #### [facility] CLIA [id number] [address] [place] [address] 53535Slpfkhvld RBC/100 WBC (Bld) [Ratio]0.0 /[address] [facility] on above:Order Comment: Specimen Type: BLOOD SPECIMEN Ordering Facility[facility] Address: [address] [place], [place] [address]Performed By: #### 41792-4 #### [facility]ITALRE[facility] CLIA [id number] [address] [place] [address] 72441Hranixyz mean volume (Bld) [Entitic vol]9.7 fLNormal9.0-12.7 [facility] on above:Order Comment: Specimen Type: BLOOD SPECIMEN Ordering Facility[facility] Address: [address] [place], [place] [address]Performed By: #### 49812-0 #### [facility] CLIA [id number] [address] [place] [address] 33475Ijmroruyi (Bld) [#/Vol]81 10*3/lSDvs588-108BjsgrwtjmGerman Hospital on above:Order Comment: Specimen Type: BLOOD SPECIMEN Ordering Facility[facility] Address: [address] [place], [place] [address]Result Comment: Sample checked for clotPerformed By: #### 90416-5 #### [facility] CLIA [id number] [address] [place] [address] 49221ULJ (Bld) [#/Vol]3.42 10*6/uLLow4.20-6.00[facility] on above:Order Comment: Specimen Type: BLOOD SPECIMEN Ordering Facility: [facility] Address: [address] [place] [address], [place] [address]Wqvvappks By: #### 95982-9 #### [facility]ITALRE[facility] CLIA [id number] [address] [place] [address] 30450WXN (Bld) [#/Vol]3.73 10*3/uLNormal3.70-11.00[facility], BeachwoodComment on above:Order Comment: Specimen Type: BLOOD SPECIMEN Order[facility] Facility[facility] Address: [address] [address]Performed By: #### 82861-8 #### [facility]ITALRE[facility] CLIA [id number] [address] [place], [place] [address]Ubdlgdmis (Bld) [#/Vol]<0.11 k/uLSelect Medical Cleveland Clinic Rehabilitation Hospital, AvonBasophils/100 WBC (Bld)0.5 %[facility], AvonDifferential cell count method Nom (Bld)Auto [facility], AvonEosinophils (Bld) [#/Vol]0.08 10*3/uL<0.46 k/uLSelect Medical [facility] Clinic [facility], [place] Eosinophils/100 WBC (Bld)2.1 %[facility], AvonErythrocyte distribution width (RBC) [Ratio]15.9 %High11.5 - 15.0 %[facility], AvonHematocrit (Bld) [Volume fraction]33.5 %Low39.0 - 51.0 %[facility], AvonHemoglobin (Bld) [Mass/Vol]11.4 g/dLLow13.0 - 17.0 g/dLSelect Medical [facility] Clinic Rehabilitation Hospital, AvonImmature granulocytes (Bld) [#/Vol]<0.10 k/uLSelect Medical [facility] Clinic Rehabilitation Hospital, AvonImmature granulocytes/100 WBC (Bld)0.3 %[facility] [place] Lymphocytes (Bld) [#/Vol]0.60 10*3/uLLow1.00 - 4.00 k/uLSelect Medical [facility], [place] Lymphocytes/100 WBC (Bld)16.1 %[facility] HospitalH (RBC) [Entitic mass]33.3 pg 26.0 - 34.0 pgCGrand Lake Joint Township District Memorial HospitalHC (RBC) [Mass/Vol]34.0 g/dL30.5 - 36.0 g/dL [facility] ClinicMCV (RBC) [Entitic vol]98.0 fL80.0 - 100.0 fLClevelcaromont regional medical center [facility] Clinic Monocytes (Bld) [#/Vol]0.26 10*3/uL<0.87 k/uLSelect Medical Cleveland Clinic Rehabilitation Hospital, AvonMonocytes/100 WBC (Bld)7.0 %[facility], AvonNeutrophils (Bld) [#/Vol]2.76 10*3/uL1.45 - 7.50 k/uL [facility], AvonNeutrophils/100 WBC (Bld)74.0 %[facility], AvonNucleated RBC (Bld) [#/Vol]<0.01 k/uLSelect Medical Cleveland Clinic Rehabilitation Hospital, AvonNucleated RBC/100 WBC (Bld) [Ratio]0.0 /100 WBCSelect Medical Cleveland Clinic Rehabilitation Hospital, AvonPlatelet mean volume (Bld) [Entitic vol]9.7 fL9.0 - 12.7 fLClevelcaromont regional medical center - mount holly ClinicPlatelets (Bld) [#/Vol]81 10*3/gZTpw826 - 400 k/[facility] HospitalRBC (Bld) [#/Vol]3.42 10*6/uLLow4.20 - 6.00 m/[facility] HospitalWBC (Bld) [#/Vol]3.73 10*3/uL3.70 - 11.00 k/[facility] HospitalCNOVSPon 82-61-9910AAXDDL Visit (SP) Office ([place]) BRIAN MEEHAN ([id number]) 1945 M Date Time Provider Department 08/30/22 3:00 PM TRICIA CRESPO During your visit today, we recorded the following information about you: Temperature Pulse Respiration Blood pressure 97.7 degrees 59/minute 18/minute 158/59 Weight Height 73.6 kg 1.703 m Tricia Crespo MD 08/30/2022 3:09 PM Signed Patient: Brian Meehan Location: [facility] : 1945 Attending Physician: Dr. Vazquez Quinonez [...] no distress, pl (more content not included)... NormalParkwood Hospitalprehenve metabolic 2000 panelon 08-30-2022 Albumin [Mass/Vol]4.5 g/dLNormal3.9-4.9CMer[facility] Health [facility] on above:Order Comment: Specimen Type: BLOOD SPECIMEN Order[facility] Address: [address] [place], [place] [address]Performed By: #### 2532-0, 09408-7 #### [facility] CLIA [id number] [address] [place] [address] 32725YTF [Catalytic activity/Vol]86 U/DCfxflr73-873TckvoulnuGerman Hospital on above:Order Comment: Specimen Type: BLOOD SPECIMEN Order[facility] Facility[facility] Address: [address] [place], [place] [address]Performed By: #### 2-0, #### [facility] CLIA [id number] [address] [place] [address] 77696OHR [Catalytic activity/Vol]15 U/ZSoqqvd68-87GbytqmxfpGerman Hospital on above:Order Comment: Specimen Type: BLOOD SPECIMEN Order[facility] Facility[facility] Address: [address] [place], [place] [address]Performed By: #### 2532-0, 69268-4 #### [facility] CLIA [id number] [address] [place] [address] 42489Nywtm gap [Moles/Vol]8 mmol/LLow9-18[facility] [place] Comment on above:Order Comment: Specimen Type: BLOOD SPECIMEN Order[facility] Facility[facility] Address: [address] [place], [place] [address]Performed By: #### 2532-0, 91289-2 #### [facility] CLIA [id number] [address] [place] [address] 55660TBO [Catalytic activity/Vol]16 U/BFweatg74-32DecvphvocGerman Hospital on above:Order Comment: Specimen Type: BLOOD SPECIMEN Order[facility] Facility[facility] Address: [address] [place], [place] [address]Performed By: #### 2532-0, 18528-6 #### [facility] CLIA [id number] [address] [place] [address] 48401Usipycyev [Mass/Vol]0.5 mg/dLNormal0.2-1.3CMercy Health St[facility] on above:Order Comment: Specimen Type: BLOOD SPECIMEN [facility] Address: [address] [place], [place] [address]Performed By: #### 2532-0, 56443-0 #### [facility] CLIA [id number] [address] [place] [address] 87798Ggnojdp [Mass/Vol]9.5 mg/dLNormal8.5-10.2CMercy Health St[facility] on above:Order Comment: Specimen Type: BLOOD SPECIMEN [facility] Address: [address] [place], [place] [address]Performed By: #### 2532-0, 22437-3 #### [facility] CLIA [id number] [address] [place] [address] 76307Vieykvoq [Moles/Vol]110 mmol/FLyem68-788KmtxszqusGerman Hospital on above:Order Comment: Specimen Type: BLOOD SPECIMEN Order[facility] Address: [address] [place], [place] [address]Performed By: #### 2532-0, 58954-5 #### [facility] CLIA [id number] [address] [place] [address] 52207VJ8 [Moles/Vol]30 mmol/PTsfyrl39-56WcaayphzwSelect Medical [facility] [place] Comment on above:Order Comment: Specimen Type: BLOOD SPECIMEN [facility] Address: [address] [place], [place] [address]Performed By: #### 2532-0, 87362-8 #### [facility] CLIA [id number] [address] [place] [address] 08646Agovagcquo [Mass/Vol]0.93 mg/dLNormal0.73-1.22[facility] on above:Order Comment: Specimen Type: BLOOD SPECIMEN Order[facility] Facility[facility] Address: [address] [place], [place] [address]Performed By: #### 2532-0, 88394-1 #### [facility] CLIA [id number] [address] [place] [address] 24437WXKBPNTFV GLOMERULAR FILTRATION RATE85 mL/min/1.73m???Normal >=60[facility] on above:Order Comment: Specimen Type: BLOOD SPECIMEN Order[facility] Facility[facility] Address: [address] [place], [place] [address]Result Comment: Estimated Glomerular Filtration Rate (eGFR) is calculated using the 2020 CKD-EPI cre atinine equation. This equation utilizes serum creatinine, sex, and age as parameters. The creatinine assay has traceable calibration to isotope dilution- mass spectrometry. Refer to KDIGO guidelines for clinical interpretation. In patients with unstable renal function, e.g. those with acute kidney injury, the eGFR may not accurately reflect actual GFR.Performed By: #### 2532-0, 97834-6 #### [facility] CLIA [id number] [address] [place] [address] 86151Jyfevfk [Mass/Vol]86 mg/cYDykvyj47-98PultiqwamGerman Hospital on above:Order Comment: Specimen Type: BLOOD SPECIMEN Ordering Facility[facility] Address: [address] [place] [address]Fqaani Comment: The [place] [employer] (ADA) provides guidance for cutoff [...] of Medical Care in Diabetes 2016, [place] [employer]. Diabetes Care. 2016.39(Suppl 1).Performed By: #### 2-0, 77759-0 #### [facility] CLIA [id number] [address] [place], [place] [address]Tqbkohyte [Moles/Vol]4.3 mmol/LNormal3.7-5.1CMercy Health St[facility] on above:Order Comment: Specimen Type: BLOOD SPECIMEN [facility] Address: [address] [place], [place] [address]Performed By: #### 2532-0, 84215-0 #### [facility] CLIA [id number] [address] [place], [place] [address]Wivovpe [Mass/Vol]6.4 g/dLNormal6.3-8.0[facility] on above:Order Comment: Specimen Type: BLOOD SPECIMEN [facility] Address: [address] [place], [place] [address]Performed By: #### 2-0, 50995-7 #### [facility] CLIA [id number] [address] [place] [address] 52240Fmvyxi [Moles/Vol]148 mmol/XPicq000-337FfszxxbygGerman Hospital on above:Order Comment: Specimen Type: BLOOD SPECIMEN [facility] Address: [address] [place], [place] [address]Performed By: #### 2532-0, 51072-0 #### [facility] CLIA [id number] [address] [place], [place] [address]Isjc nitrogen [Mass/Vol]24 mg/dLNormal9-24[facility] on above:Order Comment: Specimen Type: BLOOD SPECIMEN [facility] Address: [address] [place], [place] [address]Performed By: #### 2532-0, 05948-9 #### [facility] CLIA [id number] [address] [place], [place] [address]Wwzycrt [Mass/Vol]4.5 g/dL3.9 - 4.9 g/dLMountain Lake ClinicALP [Catalytic activity/Vol]86 U/L38 - 113 U/LCleveland ClinicALT [Catalytic activity/Vol]15 U/L10 - 54 U/LCleveland ClinicAnion gap [Moles/Vol]8 mmol/LLow9 - 18 mmol/LCleveland ClinicAST [Catalytic activity/Vol]16 U/L14 - 40 U/L [facility], AvonBilirubin [Mass/Vol]0.5 mg/dL0.2 - 1.3 mg/dLSelect Medical [facility] [place] Calcium [Mass/Vol]9.5 mg/dL8.5 - 10.2 mg/dLSelect Medical [facility] Clinic [facility] Hospital, AvonChloride [Moles/Vol] 110 mmol/LHigh97 - 105 mmol/LCleveland ClinicCO2 [Moles/Vol]30 mmol/L22 - 30 mmol/LCleveland ClinicCreatinine [Mass/Vol]0.93 mg/dL0.73 - 1.22 mg/dLSelect Medical [facility] Rehabilitation Hospital, AvonEstimated Glomerular Filtration Rate85 mL/min/1.73m>=60 mL/min/1.73m [facility], AvonGlucose [Mass/Vol]86 mg/dL74 - 99 mg/dLSelect Medical [facility] Clinic Rehabilitation Hospital, AvonPotassium [Moles/Vol]4.3 mmol/L3.7 - 5.1 mmol/LCleveland ClinicProtein [Mass/Vol]6.4 g/dL 6.3 - 8.0 g/dLGood Samaritan Hospitalodium [Moles/Vol]148 mmol/TBiid012 - 144 mmol/L [facility], AvonUrea nitrogen [Mass/Vol]24 mg/dL9 - 24 mg/dLSelect Medical [facility] [place] Ferritin SerPl-mCncon 67-76-4011Cuxbqfnl [Mass/Vol]121.0 ng/cRBjymhp53.3-565.7 [facility], BeachwoodComment on above:Order Comment: Specimen Type: BLOOD SPECIMEN [facility] Address: [address] [place], [place] [address]Performed By: #### 37521-9, 2132-9, 2276-4 #### [facility] CLIA [id number] [address] [place] [address] OF AMERICAIron and Iron binding capacity panelon 28-22-5390Ggje [Mass/Vol]100 ug/uBGmlika63-228IpxqomdnaGerman Hospital on above:Order Comment: Specimen Type: BLOOD SPECIMEN [facility] Address: [address] [place], [place] [address]Performed By: #### 00136-8, 9, 4 #### [facility] CLIA [id number] [facility] [place] [address] [place] OF AMERICAIron binding capacity [Mass/Vol]287 ug/kEWkifqs948-626VjlabxuytGerman Hospital on above:Order Comment: Specimen Type: BLOOD SPECIMEN [facility] Address: [address] [place], [place] [address]Performed By: #### 79976-0, 9, 2276-01 #### [facility] CLIA [id number] [address] [place] [address] [place] OF AMERICAIron/TIBC [Molar ratio]34.8 %Klydsl52.0-57.0[facility] on above:Order Comment: Specimen Type: BLOOD SPECIMEN Order[facility] Address: [address] [place], [place] [address]Performed By: #### 43464-4, 2132-06, 2276-01 #### [facility] CLIA [id number] [address] [place] [address] [place] OF AMERICALD LACTATE DEHYDROon 77-76-4974KLH [Catalytic activity/Vol]180 U/L135 - 225 U/LCleveland ClinicLDH SerPl-cCncon 58-27-3205RBR [Catalytic activity/Vol]180 U/GVxnlrm531-180DdjbodpyaGerman Hospital on above:Order Comment: Specimen Type: BLOOD SPECIMEN Ordering Facility: [facility] Address: [address] [place], [place] [id number] By: #### 2532-0, 69586-4 #### [facility] CLIA [id number] [address] [place] [address] [id number] B12 SerPl-mCncon 85-81-6274Rbgxnkcjh (Vitamin B12) [Mass/Vol]468 pg/gMIoonht211-1854BygefbaygMer[facility] Health [facility] on above: Order Comment: Specimen Type: BLOOD SPECIMEN Ordering Facility: [facility] Address: [address] [place], [place] [address]Performed By: #### 70427-4, 2132-9, 2276-4 #### [facility] CLIA [id number] [facility] DESK [address] AMERICACULTURE BLOODon 05-08-2022 Microscopic examination of blood, cultureCulture Observations: NO GROWTH IN ANAEROBIC BOTTLE AT [...] <=1 S F Rifampicin <=0.5 S F Trimethoprim/Sulfamethoxazole <=10 S F Oxacillin <=0.[address] [facility] [address] [facility] HospitalComment on above:Performed By: #### POCGLUC #### [facility] [address] [place] [address] Dr. Kelly Gale CULTURE ID PANELon 2A. baumanniiNot detectedNormal NOT DETECTEDThe [facility] HospitalComment on above:Performed By: #### BCID2 #### [facility] [address] [place] [address] Dr. Kelly Christine fragilisNot detectedNormalNOT DETECTEDThe [facility] HospitalComment on above:Performed By: #### BCID2 #### [facility] [address] [place] [address] Dr. Kelly Ornelas CONTROLSPASSEDSycamore Medical CenterCompromedica [facility] on above: Performed By: #### BCID2 #### [facility] [address] [place] [address] Dr. Kelly OrnelasBTHDBLOOD CULTURE BOTTLE INFORMATIONSycamore Medical CenterComment on above:Performed By: #### BCID2 #### [facility] [address] [address] [address] Kelly [id number] RESISTANCE GENESSycamore Medical Center Comment on above:Performed By: #### BCID2 #### [facility] [address] [place] [address] Dr. Kelly OrnelasHD2SEE BELOWSycamore Medical CenterComment on above: Result Comment: Note: Antimicrobial resitance can occur via multiple mechanisms. A Not Detected result for the [employer] antomicrobial resistance gene assays does not indicate antimicrobial susceptibility. Subculturing is required for species identification and susceptibility testing of isolates.Performed By: #### BCID2 #### [facility] [address] [place] [address] Dr. Kelly OrnelasMnyrfZEYSXX9QoqryknjTsshagFpd [facility] HospitalComp[facility] on above: Performed By: #### BCID2 #### [facility] [address] [place] [address] Dr. Kelly OrnelasKdeaxADNWKN9WlmimiukEhohxzFzw [facility] HospitalComment on above: Performed By: #### BCID2 #### [facility] [address] [place] [address] Dr. Kelly [id number] Reserve HospitalCompromedica [facility] on above:Performed By: #### BCID2 #### [facility] [address] [place] [address] Dr. Kelly Arzola Set:Set 2NormalUpper Valley Medical CenterComment on above: Performed By: #### BCID2 #### [facility] [address] [address] [address] Kelly Arzola:AerobicNormalThe [facility] HospitalComment on above: Performed By: #### BCID2 #### [facility] [address] [address] [address] Kelly Churchill. neoformans/gattiiNot detectedNormalNOT DETECTEDThe [facility] HospitalComment on above:Performed By: #### BCID2 #### [facility] [address] [address] [address] Kelly Li albicansNot detectedNormalNOT DETECTEDThe [facility] HospitalComment on above:Performed By: #### BCID2 #### [facility] [address] [address] [address] Kelly Li aurisNot detectedNormalNOT DETECTEDThe [facility] Comment on above:Performed By: #### BCID2 #### [facility] [address] [address] [address] Kelly Li glabrataNot detectedNormalNOT DETECTEDThe [facility] HospitalComment on above:Performed By: #### BCID2 #### [facility] [address] [address] [address] Kelly Li KruseiNot detectedNormalNOT DETECTEDThe [facility] Comment on above:Performed By: #### BCID2 #### [facility] [address] [address] [address] Kelly Li ParapsilosisNot detectedNormalNOT DETECTEDThe [facility] HospitalComment on above:Performed By: #### BCID2 #### [facility] [address] [address] [address] Kelly Li TropicalisNot detectedNormalNOT DETECTEDThe [facility] HospitalComment on above:Performed By: #### BCID2 #### [facility] [address] [address] [address] Kelly MukherjeeCTX-M Resistant GeneNot ApplicableNormalNOT DETECTEDThe [facility] HospitalCompromedica [facility] on above:Performed By: #### BCID2 #### [facility] [address] [address] [address] Kelly Liang. Cloacae complexNot detectedNormalNOT DETECTEDThe [facility] HospitalComment on above:Performed By: #### BCID2 #### [facility] [address] [address] [address] Kelly Liang. faecalisNot detectedNormalNOT DETECTEDThe [facility] Comment on above:Performed By: #### BCID2 #### [facility] [address] [address] [address] Kelly Liang. faeciumNot detectedNormalNOT DETECTEDThe [facility] Comment on above:Performed By: #### BCID2 #### [facility] [address] [place] [address] Dr. Kelly LiangnterobacteriaceaeNot detectedNormalNOT DETECTEDThe [facility] HospitalComment on above:Performed By: #### BCID2 #### [facility] [address] [place] [address] Dr. Kelly Scottichia coliNot detectedNormalNOT DETECTEDThe [facility] HospitalComment on above:Performed By: #### BCID2 #### [facility] [address] [place] [address] Dr. Kelly Song. influenzaeNot detectedNormalNOT DETECTEDThe [facility] Comment on above:Performed By: #### BCID2 #### [facility] [address] [place] [address] Dr. Kelly Maurice Resistant GeneNot ApplicableNormalNOT DETECTEDThe [facility] HospitalComment on above:Performed By: #### BCID2 #### [facility] [address] [place] [address] Dr. Kelly Blanc. oxytocaNot detectedNormalNOT DETECTEDThe [facility] Comment on above:Performed By: #### BCID2 #### [facility] [address] [place] [address] Dr. Kelly Blanc. pneumoniaeNot detectedNormalNOT DETECTEDThe [facility] Comment on above:Performed By: #### BCID2 #### [facility] [address] [place] [address] Dr. Kelly Mejia aerogenesNot detectedNormalNOT DETECTEDThe [facility] HospitalComment on above:Performed By: #### BCID2 #### [facility] [address] [place] [address] Dr. Kelly Suazo Resistant GeneNot ApplicableNormalNOT DETECTEDThe [facility] HospitalComment on above:Performed By: #### BCID2 #### [facility] [address] [place] [address] Dr. Kelly Quinteros. monocytogenesNot detectedNormalNOT DETECTEDThe [facility] HospitalComment on above:Performed By: #### BCID2 #### [facility] [address] [place] [address] Dr. Kelly Rahmanr-1 Resistant GeneNot ApplicableNormalNOT DETECTEDThe [facility] HospitalCompromedica [facility] on above:Performed By: #### BCID2 #### [facility] [address] [place] [address] Dr. Kelly King/CNot ApplicableNormalNOT DETECTEDUpper [facility] Comment on above:Performed By: #### BCID2 #### [facility] [address] [place] [address] Dr. Kelly King/C MREJNot ApplicableNormalNOT DETECTEDUpper [facility] Medical Center Comment on above:Performed By: #### BCID2 #### [facility] [address] [place] [address] Dr. Kelly Ronquillo. meningitidisNot detectedNormalNOT DETECTEDThe [facility] HospitalCompromed[facility] on above:Performed By: #### BCID2 #### [facility] [address] [place] [address] Dr. Kelly Yu Resistant GeneNot ApplicableNormalNOT DETECTEDThe [facility] HospitalCompromedica [facility] on above:Performed By: #### BCID2 #### [facility] [address] [place] [address] Dr. Kelly FlorenceNrqibXou-46-uuuwWri ApplicableNormalNOT DETECTEDUpper [facility] Comment on above:Performed By: #### BCID2 #### [facility] [address] [place] [address] Dr. Yilan ChangProteusNot detectedNormalNOT DETECTEDThe [facility] HospitalComment on above:Performed By: #### BCID2 #### [facility] [address] [address] [address] Kelly Downs. aeruginosaNot detectedNormalNOT DETECTEDThe [facility] HospitalComment on above:Performed By: #### BCID2 #### [facility] [address] [address] [address] Kelly Perkins. maltophiliaNot detectedNormalNOT DETECTEDThe [facility] Comment on above:Performed By: #### BCID2 #### [facility] [address] [address] [address] Kelly MukherjeeSalmonellaNot detectedNormalNOT DETECTEDThe [facility] Comment on above:Performed By: #### BCID2 #### [facility] [address] [address] [address] Kelly Ahumada marcescensNot detectedNormalNOT DETECTEDThe [facility] HospitalComment on above:Performed By: #### BCID2 #### [facility] [address] [address] [address] Kelly Hauser:Lt HandNormalThe [facility] HospitalComment on above:Performed By: #### BCID2 #### [facility] [address] [address] [address] Kelly Flynn. aureusNot detectedNormalNOT DETECTEDThe [facility] Comment on above:Performed By: #### BCID2 #### [facility] [address] [address] [address] Kelly Flynn. epidermidisNot detectedNormalNOT DETECTEDThe [facility] HospitalComment on above:Performed By: #### BCID2 #### [facility] [address] [address] [address] Kelly Flynn. lugdunensisNot detectedNormalNOT DETECTEDThe [facility] HospitalCompromedica [facility] on above:Performed By: #### BCID2 #### [facility] [address] [address] [address] Yilan ChangStaphylococcusDetectedAbnormalNOT DETECTEDThe [facility] Comment on above:Performed By: #### BCID2 #### [facility] [address] [place] [address] Dr. Kelly Gonzales agalactiaeNot detectedNormalNOT DETECTEDThe [facility] HospitalComment on above:Performed By: #### BCID2 #### [facility] [address] [place] [address] Dr. Kelly Collier. pneumoniaeNot detectedNormalNOT DETECTEDThe [facility] HospitalComment on above:Performed By: #### BCID2 #### [facility] [address] [place] [address] Dr. Kelly Collier. pyogenesNot detectedNormalNOT DETECTEDThe [facility] HospitalComment on above:Performed By: #### BCID2 #### [facility] [address] [place] [address] Dr. Kelly ColliertococcusNot detectedNormalNOT DETECTEDThe [facility] Comment on above:Performed By: #### BCID2 #### [facility] [address] [place] [address] Dr. Kelly Bedolla/Suraj Resist. GeneNot ApplicableNormalNOT DETECTEDThe [facility] HospitalComp[facility]ed[facility] on above:Performed By: #### BCID2 #### [facility] [address] [place] [address] Dr. Kelly Paez Resistant GeneNot ApplicableNormalNOT DETECTEDThe [facility] HospitalComp[facility] on above:Performed By: #### BCID2 #### [facility] [address] [place] [address] Dr. Kelly Marquez AUTO DIFFon [id number] #0.0 103/ulNormal0.0-0.1The [facility] HospitalComp[facility] on above:Performed By: #### CBC #### [facility] [address] [place] [address] Dr. Kelly Vaughnsophils/100 WBC (Bld)0.0 %Critically low0.2-2.0The [facility] HospitalComment on above:Performed By: #### CBC #### [facility] [address] [place] [address] Dr. Kelly Bernard #0.0 103/ulNormal0.0-0.7The [facility] HospitalComment on above: Performed By: #### CBC #### [facility] [address] [place] [address] Dr. Kelly Liangosinophils/100 WBC (Bld)0.0 %Critically low0.9-7.0The [facility] HospitalComment on above:Performed By: #### CBC #### [facility] [address] [place] [address] Dr. Kelly Liangrythrocyte distribution width (RBC) [Ratio]15.5 %Critically high 11.0-15.0The [facility] on above:Performed By: #### CBC #### [facility] [address] [place] [address] Dr. Kelly MukherjeeHematocrit (Bld) [Volume fraction]25.3 %Critically low42.0-54.[address] [facility] HospitalComment on above:Performed By: #### CBC #### [facility] [address] [place] [address] Dr. Kelly MukherjeeHemoglobin (Bld) [Mass/Vol]8.8 g/dLCritically low14.0-18.0The [facility] HospitalComment on above:Performed By: #### CBC #### [facility] [address] [place] [address] Dr. Kelly Craig #0.00 10e3/ulNormal0.00-0.03The [facility] HospitalComment on above:Performed By: #### CBC #### [facility] [address] [place] [address] Dr. Kelly Craig %0.0 %Normal0.0-0.5The [facility] HospitalCompromed[facility] on above: Performed By: #### CBC #### [facility] [address] [place] [address] Dr. Kelly Hay #0.2 103/ulCritically low1.2-3.8The [facility] Comment on above:Performed By: #### CBC #### [facility] [address] [address] [address] Kelly Cheneymphocytes/100 WBC (Bld)11.5 %Critically low20.5-60.0[facility] CenterComment on above:Performed By: #### CBC #### [facility] [address] [place] [address] Dr. Kelyl Dumas DIFF REQNONormalThe [place] HospitalComment on above: Performed By: #### CBC #### [facility] [address] [place] [address] Dr. Kelly Rahman (RBC) [Entitic mass]34.1 pgCritically high25.9-34.0The [facility] HospitalComment on above:Performed By: #### CBC #### [facility] [address] [place] [address] Dr. Kelyl Rahman (RBC) [Mass/Vol]34.8 g/tMUjdzlu79.9-35.2The [facility] HospitalComment on above:Performed By: #### CBC #### [facility] [address] [place] [address] Dr. Kelly Ruiz (RBC) [Entitic vol]98.1 fLCritically high80.0-94.0The [place] HospitalComment on above:Performed By: #### CBC #### [facility] [address] [place] [address] Dr. Kelly Rodriguez #0.2 103/ulCritically low0.3-0.8The [facility] HospitalComment on above:Performed By: #### CBC #### [facility] [address] [place] [address] Dr. Kelly Spiveyocytes/100 WBC (Bld)14.5 %Critically high1.7-12.0The [facility] HospitalComment on above:Performed By: #### CBC #### [facility] [address] [place] [address] Dr. Kelly Alexis #1.2 103/ulCritically low1.4-6.5The [place] HospitalComment on above:Performed By: #### CBC #### [facility] [address] [place] [address] Dr. Kelly Delucautrophils/100 WBC (Bld)74.0 %Nvtimd26.0-75.0The [facility] HospitalComment on above:Performed By: #### CBC #### [facility] [address] [place] [address] Dr. Kelly Stinsonlet mean volume (Bld) [Entitic vol]10.3 fLNormal9.5-13.5The [place] HospitalComment on above:Performed By: #### CBC #### [facility] [address] [place] [address] Dr. Kelly LawrenceT59 103/ulCritically [id number] [facility] HospitalComment on above:Performed By: #### CBC #### [facility] [address] [place] [address] Dr. Kelly HernandezC2.58 106/ulCritically low4.70-6.10The [facility] HospitalComment on above:Performed By: #### CBC #### [facility] [address] [place] [address] Dr. Kelly MukherjeeWBC1.7 103/ulCritically low4.0-11.0The [facility] HospitalComment on above:Performed By: #### CBC #### [facility] [address] [place] [address] Dr. Kelly Marquez W MANUAL DIFFon [id number] LYMPH #NormalThe [facility] HospitalComment on above:Performed By: #### CVDTBH #### [facility] [address] [place] [address] Dr. Kelly MukherjeeATYPICAL LYMPH %NormalThe [facility] HospitalComment on above: Performed By: #### CVDTBH #### [facility] [address] [place] [address] Dr. Kelly Packer #0.0 103/ulNormal0.0-0.3The [facility] HospitalComment on above:Performed By: #### CVDTBH #### [facility] [address] [address] [address] Kelly Packer %1 %Normal0-5The [place] HospitalComment on above:Performed By: #### CVDTBH #### [facility] [address] [address] [address] Kelly Anthony #0.00 103/ulNormal0.00-0.10The [facility] HospitalComment on above:Performed By: #### CVDTBH #### [facility] [address] [address] [address] Kelly Anthony %0.0 %Critically low0.2-2.0The [facility] HospitalComment on above:Performed By: #### CVDTBH #### [facility] [address] [place] [address] Dr. Kelly Robertson #NormalThe [facility] HospitalComment on above:Performed By: #### CVDTBH #### [facility] [address] [place] [address] Dr. Kelly Robertson %NormalThe [facility] HospitalComment on above:Performed By: #### CVDTBH #### [facility] [address] [place] [address] Dr. Kelly MukherjeeCORRECTED WBCNormal4.0-11.0The [facility] HospitalComment on above: Performed By: #### CVDTBH #### [facility] [address] [place] [address] Dr. Kelly Barrientos #0.00 103/ulNormal0.00-0.70The [facility] HospitalComment on above:Performed By: #### CVDTBH #### [facility] [address] [place] [address] Dr. Kelly Barrientos%0.0 %Critically low0.9-7.0The [facility] HospitalComment on above:Performed By: #### CVDTBH #### [facility] [address] [place] [address] Dr. Kelly MukherjeeHCT26.7 %Critically low42.0-54.0The [facility] HospitalComment on above:Performed By: #### CVDTBH #### [facility] [address] [place] [address] Dr. Kelly TejedaB9.3 g/dlCritically low14.0-18.0The [facility] HospitalComment on above:Performed By: #### CVDTBH #### [facility] [address] [place] [address] Dr. Kelly Tejada #0.21 103/ulCritically low1.20-3.80The [facility] Comment on above:Performed By: #### CVDTBH #### [facility] [address] [place] [address] Dr. Kelly Tejada%13.0 %Critically low20.5-60.0The [facility] HospitalComment on above:Performed By: #### CVDTBH #### [facility] [address] [place] [address] Dr. Kelly RahmanH33.9 vwFhuwwt54.9-34.0The [facility] HospitalComment on above: Performed By: #### CVDTBH #### [facility] [address] [place] [address] Dr. Kelly RahmanHC34.8 g/wjJqrdoc03.9-35.2The [facility] HospitalComment on above:Performed By: #### CVDTBH #### [facility] [address] [place] [address] Dr. Kelly RahmanV97.4 fLCritically high80.0-94.0The [facility] HospitalComment on above:Performed By: #### CVDTBH #### [facility] [address] [place] [address] Dr. Kelly MontielOCYTE #NormalThe [facility] HospitalComment on above: Performed By: #### CVDTBH #### [facility] [address] [place] [address] Dr. Kelly MontielOCYTE %NormalThe [facility] HospitalComment on above: Performed By: #### CVDTBH #### [facility] [address] [address] [address] Kelly Courtney#0.16 103/ulCritically low0.30-0.80The [facility] on above:Performed By: #### CVDTBH #### [facility] [address] [address] [address] Kelly Courtney%10.0 %Normal1.7-12.0The [place] HospitalComment on above: Performed By: #### CVDTBH #### [facility] [address] [place] [address] Dr. Kelly MukherjeeMPV9.9 fLNormal9.5-13.5The [facility] HospitalComment on above: Performed By: #### CVDTBH #### [facility] [address] [place] [address] Dr. Kelly KitchenOCYTE #NormalThe [facility] HospitalComment on above:Performed By: #### CVDTBH #### [facility] [address] [place] [address] Dr. Kelly KitchenOCYTE %NormalThe [facility] HospitalComment on above:Performed By: #### CVDTBH #### [facility] [address] [place] [address] Dr. Kelly MukherjeeNRBCNormalThe [facility] HospitalComment on above:Performed By: #### CVDTBH #### [facility] [address] [place] [address] Dr. Kelly LawrenceT61 103/ulCritically yag928-842Owx [facility] HospitalComment on above:Performed By: #### CVDTBH #### [facility] [address] [place] [address] Dr. Kelly MukherjeeRBC2.74 106/ulCritically low4.70-6.10The [facility] HospitalComment on above:Performed By: #### CVDTBH #### [facility] [address] [place] [address] Dr. Kelly MukherjeeRDW15.6 %Critically high11.0-15.0The [facility] HospitalComment on above:Performed By: #### CVDTBH #### [facility] [address] [address] [address] Kelly Olguin #1.22 103/ulCritically low1.40-6.50The [facility] Comment on above:Performed By: #### CVDTBH #### [facility] [address] [address] [address] Kelly Olguin %76.0 %Critically high43.0-75.0The [facility] HospitalComment on above:Performed By: #### CVDTBH #### [facility] [address] [place] [address] Dr. Kelly MukherjeeWBC1.6 103/ulCritically low4.0-11.0The [facility] HospitalComment on above:Performed By: #### CVDTBH #### [facility] [address] [place] [address] Dr. Kelly MukherjeeCT HEAD WO CONon [id number] HEAD WO CONEXAMINATION: CT HEAD WO CON HISTORY: DISORIENTATION, UNSPECIFIED [...] Electronically authenticated by: KIA JENNINGS Date: 2022-05-03 00:00NoUK HealthcareCULTURE BLOODon [id number] examination of blood, cultureCulture Observations: NO GROWTH AT [address] [facility] HospitalComment on above:Performed By: #### POCGLUC #### [facility] [address] [place] [address] Dr. Kelly Drake URINEon 04-03-4904GTAMJYV URINECulture Observations: HEAVY GROWTH OF MIXED SKIN TERE. NO POTENTIAL PATHOGENS SEEN.NormalThe [facility] HospitalComment on above:Performed By: #### POCGLUC #### [facility] [address] [place] [address] Dr. Kelly Staleyvid-19 PCR (CVDTB)on 26-08-4194ZHQN-CoV-2 (COVID-19) RNA ABIMBOLA+probe Ql (Unsp spec)DetectedCritically abnormalNOT DETECTEDThe [facility] HospitalComment on above:Result Comment: This test is not yet approved or cleared by the [place] FDA. When there are no FDA-approved or cleared tests available, and other criteria are met, FDA can make tests available under an emergency access mechanism called an Emergency Use Authorization (EUA). The EUA for this test is supported by the Electrical Logger of Health and Human Service's declaration that circumstances exist to justify the emergency use of in vitro diagnostics for the detection and/or diagnosis of the virusthat causes COVID-19. This EUA will remain in effect for the duration of the COVID-19 declaration ju stifying emergency of IVDs, unless it is terminated or revoked by the FDA (after which the test mayno longer be used).Performed By: #### CVDTBH #### [facility] [address] [place] [address] Dr. Kelly Betancourt URINE PROFILEon 16-31-7159Qohryuruc Ql (U)NegativeNormal NEGATIVEUpper Valley Medical CenterComment on above:Performed By: #### CAITY MARIERO #### [facility] [address] [address] [address] Kelly Blakely (U)CLEARNormalCLEARUpper Valley Medical CenterComment on above: Performed By: #### RACHELL MARIEICRO #### [facility] [address] [place] [address] Dr. Kelly Steward (U)YELLOWNormalYELLOWUpper Valley Medical CenterComment on above: Performed By: #### CYNTHIA UMICRO #### [facility] [address] [address] [address] Kelly Jett micrscopic examination will be performed if indicated. NormalUpper Valley Medical CenterComment on above:Performed By: #### CAITY MARIERO #### [facility] [address] [place] [address] Dr. Kelly MukherjeeGlucose Ql (U)100 mg/dlAbnormalNEGATIVEUpper Valley Medical Center Comment on above:Performed By: #### CYNTHIA UMICRO #### [facility] [address] [place] [address] Dr. Kelly MukherjeeHemoglobin Ql (U)TRACE-INTACTAbnormalNEGATIVEUpper Valley Medical CenterComment on above:Performed By: #### CAITY MARIERO #### [facility] [address] [place] [address] Dr. Kelly MukherjeeKetones Ql (U)NegativeNormalNEGATIVEUpper Valley Medical CenterComment on above:Performed By: #### CAITY MARIERO #### [facility] [address] [place] [address] Dr. Kelly MukherjeeLEUKOCYTESNegativeNormalNEGATIVEUpper Valley Medical CenterComment on above:Performed By: #### CAITY MARIERO #### [facility] [address] [place] [address] Dr. Kelly MukherjeeNitrite Ql (U)PositiveAbnormalNEGChillicothe VA Medical Center Comment on above:Performed By: #### CYNTHIA UMICRO #### [facility] [address] [place] [address] Dr. Kelly MukherjeepH (U)5.5 [pH]Normal5-9The [facility] HospitalComment on above: Performed By: #### CYNTHIA UMTORIERO #### [facility] [address] [place] [address] Dr. Kelly MukherjeeProtein (U) [Mass/Vol]100 mg/dLAbnormalNEGATIVE/ TRACEThe [facility] HospitalComment on above:Performed By: #### CYNTHIA UMTORIERO #### [facility] [address] [place] [address] Dr. Kelly MukherjeeSPEC GRAVITY1.412Xhwghp9.005-<=1.025The [facility] HospitalComment on above:Performed By: #### MARIKA MARIE #### [facility] [address] [place] [address] Dr. Kelly Covarrubias MICRO INDINDICATEDNormalThe [facility] HospitalComment on above: Performed By: #### MARIKA MARIE #### [facility] [address] [place] [address] Dr. Kelly Zapata Qn (U)0.2 {Jun'U}/dLNormal0.2 - 1.0The [facility] HospitalComment on above:Performed By: #### MARIKA MARIE #### [facility] [address] [place] [address] Dr. Kelly MukherjeeLACTATE/LACTIC ACIDon 47-52-5657Qlfhfxf [Moles/Vol]1.0 mmol/L Normal0.4-1.9The [facility] HospitalComment on above:Performed By: #### BMP #### [facility] [address] [place] [address] Dr. Kelly Dominguez 14(COMP METB)on 86-43-8167Fwoolcj [Mass/Vol]3.6 g/dLNormal 3.4-5.0The [facility] HospitalComment on above:Performed By: #### BMP #### [facility] [address] [place] [address] Dr. Kelly MukherjeeAlbumin/Globulin [Mass ratio]1.3 {ratio}NormalThe [facility] HospitalComment on above:Performed By: #### BMP #### [facility] [address] [place] [address] Dr. Kelly Spencer [Catalytic activity/Vol]95 U/JJkjgbk63-890Vpo [facility] HospitalComment on above:Performed By: #### BMP #### [facility] [address] [place] [address] Dr. Kelly Colon [Catalytic activity/Vol]53 U/ODfbmmv77-16Rxn [facility] HospitalComment on above:Performed By: #### BMP #### [facility] [address] [address] [address] Kelly Cameron gap [Moles/Vol]8.7 mmol/LNormalThe [facility] HospitalComment on above:Performed By: #### BMP #### [facility] [address] [address] [address] Kelly MukherjeeAST [Catalytic activity/Vol]31 U/RYhdhwa59-26Gpr [facility] HospitalComment on above:Performed By: #### BMP #### [facility] [address] [address] [address] Kelly MukherjeeBilirubin [Mass/Vol]0.4 mg/dLNormal0.2-1.0The [facility] Comment on above:Performed By: #### BMP #### [facility] [address] [address] [address] Kelly MukherjeeCalcium [Mass/Vol]8.5 mg/dLNormal8.5-10.1The [facility] Comment on above:Performed By: #### BMP #### [facility] [address] [address] [address] Kelly MukherjeeChloride [Moles/Vol]106 mmol/QQjyoxq66-911Xnb [facility] Comment on above:Performed By: #### BMP #### [facility] [address] [address] [address] Kelly MukherjeeCO2 [Moles/Vol]29.1 mmol/BExcwhy50.0-32.0The [facility] Comment on above:Performed By: #### BMP #### [facility] [address] [address] [address] Kelly MukherjeeCreatinine [Mass/Vol]1.07 mg/dLNormal0.70-1.30The [facility] HospitalComment on above:Performed By: #### BMP #### [facility] [address] [address] [address] Mendoza ChangEGFR-AF KOSOVAN>60Normal>=60The [facility] HospitalComment on above:Performed By: #### BMP #### [facility] [address] [address] [address] Kelly LiangGFR-NON AF KOSOVAN>60Normal>=60The [facility] HospitalComment on above:Performed By: #### BMP #### [facility] [address] [address] [address] Kelly MukherjeeGlobulin (S) [Mass/Vol]2.8 g/dLNoUK HealthcareComment on above:Performed By: #### BMP #### [facility] [address] [address] [address] Kelly MukherjeeGlucose [Mass/Vol]208 mg/dLCritically kbjs62-581Wbi [facility] HospitalComment on above:Performed By: #### BMP #### [facility] [address] [address] [address] Kelly MukherjeePotassium [Moles/Vol]3.8 mmol/LNormal3.5-5.1The [facility] Comment on above:Performed By: #### BMP #### [facility] [address] [address] [address] Kelly MukherjeeProtein [Mass/Vol]6.4 g/dLNormal6.4-8.2The [facility] Comment on above:Performed By: #### BMP #### [facility] [address] [address] [address] Kelly MukherjeeSodium [Moles/Vol]140 mmol/SEfamju500-075Qfp [facility] Comment on above:Performed By: #### BMP #### [facility] [address] [address] [address] Kelly MukherjeeUrea nitrogen [Mass/Vol]23.0 mg/dLCritically high7.0-18.0The [facility] HospitalComment on above:Performed By: #### BMP #### [facility] [address] [address] [address] Kelly MukherjeeUrea nitrogen/Creatinine [Mass ratio]21.5 mg/mgNoUK HealthcareComment on above:Performed By: #### BMP #### [facility] [address] [address] [address] Kelly MukherjeePROF CHEM 8 (BAS METB)on 20-24-0430Hgkpl gap [Moles/Vol]10.1 mmol/LNormalThe [facility] HospitalComment on above:Performed By: #### BMP #### [facility] [address] [address] [address] Kelly MukherjeeCalcium [Mass/Vol]8.2 mg/dLCritically low8.5-10.1The [facility] HospitalComment on above:Performed By: #### BMP #### [facility] [address] [address] [address] Kelly MukherjeeChloride [Moles/Vol]107 mmol/CWfmnqe64-224Nvw [facility] Comment on above:Performed By: #### BMP #### [facility] [address] [place] [address] Dr. Kelly MukherjeeCO2 [Moles/Vol]27.6 mmol/WHdkabg36.0-32.0The [facility] Comment on above:Performed By: #### BMP #### [facility] [address] [address] [address] Kelly MukherjeeCreatinine [Mass/Vol]0.93 mg/dLNormal0.70-1.30The [facility] HospitalComment on above:Performed By: #### BMP #### [facility] [address] [address] [address] Kelly LiangGFR-AF KOSOVAN>60Normal>=60The [facility] HospitalComment on above:Performed By: #### BMP #### [facility] [address] [address] [address] Kelly LiangGFR-NON AF KOSOVAN>60Normal>=60The [facility] HospitalComment on above:Performed By: #### BMP #### [facility] [address] [address] [address] Kelly MukherjeeGlucose [Mass/Vol]153 mg/dLCritically zvhd24-025Vzx [facility] HospitalComment on above:Performed By: #### BMP #### [facility] [address] [address] [address] Kelly MukherjeePotassium [Moles/Vol]3.7 mmol/LNormal3.5-5.1The [facility] Comment on above:Performed By: #### BMP #### [facility] [address] [address] [address] Kelly Pryordium [Moles/Vol]141 mmol/YKroivu050-586Trx [facility] Comment on above:Performed By: #### BMP #### [facility] [address] [address] [address] Kelly Bain nitrogen [Mass/Vol]17.0 mg/dLNormal7.0-18.0The [facility] HospitalComment on above:Performed By: #### BMP #### [facility] [address] [place] [address] Dr. Kelly Bain nitrogen/Creatinine [Mass ratio]18.3 mg/mgNoalThe [facility] HospitalComment on above:Performed By: #### BMP #### [facility] [address] [place] [address] Dr. Kelly Craig MICROSCOPIC ONLYon [id number]GFMO SEENUpper Valley Medical CenterComment on above:Performed By: #### CYNTHIA UMICRO #### [facility] [address] [place] [address] Dr. Kelly Pacheco identified Cx Nom (U)INDICATEDNoOhioHealth Arthur G.H. Bing, MD, Cancer Centere [facility] HospitalComment on above:Performed By: #### CYNTHIA UMICRO #### [facility] [address] [place] [address] Dr. Kelly Britton SEENNormalNONE SEENUpper Valley Medical CenterComment on above:Performed By: #### CYNTHIA UMICRO #### [facility] [address] [place] [address] Dr. Kelly Esquivelystals LM Nom (Urine sed)NONE SEENNormalNONE SEENUpper Valley Medical CenterComment on above:Performed By: #### CYNTHIA UMICRO #### [facility] [address] [address] [address] Mendoza ChangEpithelial cells LM Ql (Urine sed)NONE SEENNormalNONE SEEN /RARE The [facility] HospitalCompromedica [facility] on above:Performed By: #### ERUR, UMICRO #### [facility] [address] [address] [address] Kelly WheatleyCOUSMARLON SEENNormalNONE SEENThe [facility] HospitalCompromedica [facility] on above:Performed By: #### ERUR, UMICRO #### [facility] [address] [address] [address] Kelly HernandezCNVERNON SEENAbnormal0-2The [facility] HospitalCompromed[facility] on above: Performed By: #### ERUR, UMICRO #### [facility] [address] [address] [address] Kelly MukherjeeWBC2-5AbnormalNONE SEENThe [facility] HospitalCompromed[facility] on above: Performed By: #### ERUR, UMICRO #### [facility] [address] [address] [address] Kelly MukherjeeXR CHEST 1 Von [id number] CHEST 1 VXR CHEST 1 V 05/02/2022 10:30 PM EDT [...] Electronically authenticated by: KIA JENNINGS Date: 2022-05-03 00:05[facility] CenterMRI BRAIN WO CONon [id number] BRAIN WO CONEXAMINATION: MRI BRAIN WO CON, 04/19/2022 12:28 PM [...] Electronically authenticated by: SHAKA BLANCO Date: 2022-04-19 20:[address] [place], [place] [address]ECHOCARDIO M/2D COMPLETEon [id number] M/2D COMPLETE Patient: BRIAN MEEHAN Exam Date: 03/27/2022 : 1945 Gender:M Ordering : DR JUAN A WELSH D.O. Admission #: [id number] Family : Order #: [id number] CLICK HERE TO VIEW EXAM ECHOCARDIOGRAM REPORT [...] Area(A4C): 20.80 cm2 Left Atrium Systolic Volume(A2C): 26567 mm3 Left Atrium Systolic Volume(A4C): 55185 mm3 Mitral Valve MV E to A Ratio: 1.30 Deceleration Isabella: 3680 mm/s2 Mitral Valve A-Wave Peak Velocity: 65.60 cm/s Mitral Valve E-Wave Peak Velocity: 84.40 cm/s Right Ventricle RV Internal Diastolic Dimension: 3.10 cm Aorta AO Root Diam: 3.30 cm Aortic Valve AoV Area (Peak Ablan): 2.40 cm2 Deceleration Isabella: 541 mm/s2 Pressure Half-Time: 1.59 s Peak [...] by: [place] M.D. on 03/29/2022 at 19:07[facility] CenterNM STRESS/REST MULTIon [id number] STRESS/REST MULTIPatient: BRIAN MEEHAN Exam Date: 03/09/2022 : 1945 Gender:M Ordering : DR JUAN A WESLH D.O. Admission #: [id number] Family : Order #: [id number] CLICK HERE TO VIEW EXAM RADIOLOGY REPORT [...] was normal per attending physician Dr. Dennis Welsh . For more details please see separate cardiac stress test report. FINDINGS: QUALITY OF STUDY: Excellent. PERFUSION DEFECT: None. LOCATION: N/A SIZE: N/A. SEVERITY: N/A. TYPE: N/A. WALL MOTION: Normal. LV SIZE: Normal. 77 mL. TID / TCD: None; 0.8 LVEF: Normal. Calculated EF 64%. SUMMARY: Myocardial perfusion imaging study is NORMAL. CONCLUSION: 1. Normal nuclear medicine myocardial perfusion scan. Dictated by: Sonam Duff M.D. on 03/10/2022 at 09:34 Approved by: Sonam Duff M.D. on 03/10/2022 at 09:38[facility] Medical CenterBNPon 99-70-5910Knxbxugtrle peptide B (Bld) [Mass/Vol]400.0 pg/mLNormal <=1,800.0[facility] CenterComment on above:Performed By: #### BMP #### [facility] [address] [place] [address] Dr. Kelly MART ADMITon 07-22-5077EJ [Catalytic activity/Vol]22 U/L Critically nzg42-083Ova [facility] HospitalComment on above:Performed By: #### BMP #### [facility] [address] [place] [address] Dr. Kelly Clarke.MB [Mass/Vol]ng/mLNormal<=3.60The [facility] HospitalComment on above:Performed By: #### BMP #### [facility] [address] [place] [address] Dr. Kelly EppersonTROP6.8 pg/mLNormal4.0-76.1The [facility] HospitalComment on above:Result Comment: CUT-OFF POINTS HAVE BEEN ESTABLISHED BASED ON THE FOURTH UNIVERSAL DEFINITIONS OF MYOCARDIAL INFARCTION. THE UPPER REFERENCE LIMIT (URL) OF TROPONIN, DEFINED THE 99TH PERCENTILE OF cTnI DISTRIBUTION IN A REFERENCE POPULATION, HAS BEEN CONFIRMED THE DECISION THRESHOLD FOR MD DIAGNOSIS.Performed By: #### BMP #### [facility] [address] [place] [address] Dr. Kelly MoodyO39 ng/qKBnhccg19-57Zfm [facility] HospitalComment on above: Performed By: #### BMP #### [facility] [address] [place] [address] Dr. Kelly Marquez AUTO DIFFon [id number] #0.0 103/ulNormal0.0-0.1The [facility] HospitalComment on above:Performed By: #### BMP #### [facility] [address] [place] [address] Dr. Kelly MukherjeeBasophils/100 WBC (Bld)0.3 %Normal0.2-2.0The [facility] Comment on above:Performed By: #### BMP #### [facility] [address] [place] [address] Dr. Kelly Bernard #0.1 103/ulNormal0.0-0.7The [facility] HospitalComment on above: Performed By: #### BMP #### [facility] [address] [place] [address] Dr. Kelly Liangosinophils/100 WBC (Bld)2.0 %Normal0.9-7.0[facility] Comment on above:Performed By: #### BMP #### [facility] [address] [place] [address] Dr. Kelly Liangrythrocyte distribution width (RBC) [Ratio]15.4 %Critically high 11.0-15.0The [facility] HospitalComment on above:Performed By: #### BMP #### [facility] [address] [place] [address] Dr. Kelly MukherjeeHematocrit (Bld) [Volume fraction]31.9 %Critically low42.0-54.0 The [facility] HospitalComment on above:Performed By: #### BMP #### [facility] [address] [place] [address] Dr. Kelly MukherjeeHemoglobin (Bld) [Mass/Vol]10.7 g/dLCritically low14.0-18.0The [facility] HospitalComment on above:Performed By: #### BMP #### [facility] [address] [place] [address] Dr. Kelly Craig #0.01 10e3/ulNormal0.00-0.03The [facility] HospitalComment on above:Performed By: #### BMP #### [facility] [address] [place] [address] Dr. Kelly Craig %0.3 %Normal0.0-0.5The [facility] HospitalComment on above: Performed By: #### BMP #### [facility] [address] [place] [address] Dr. Kelly BoydH #0.6 103/ulCritically low1.2-3.8The [facility] Comment on above:Performed By: #### BMP #### [facility] [address] [place] [address] Dr. Kelly Cheneymphocytes/100 WBC (Bld)15.9 %Critically low20.5-60.0The [facility] HospitalComment on above:Performed By: #### BMP #### [facility] [address] [place] [address] Dr. Kelly Dumas DIFF REQNONormalThe [facility] HospitalComment on above: Performed By: #### BMP #### [facility] [address] [place] [address] Dr. Kelly Rahman (RBC) [Entitic mass]33.8 pqYgkzxk68.9-34.0The [place] HospitalComment on above:Performed By: #### BMP #### [facility] [address] [place] [address] Dr. Kelly Rahman (RBC) [Mass/Vol]33.5 g/wXPkamjs35.9-35.2The [place] HospitalComment on above:Performed By: #### BMP #### [facility] [address] [place] [address] Dr. Kelly Ruiz (RBC) [Entitic vol]100.6 fLCritically high80.0-94.0The [facility] HospitalComment on above:Performed By: #### BMP #### [facility] [address] [place] [address] Dr. Kelly Rodriguez #0.2 103/ulCritically low0.3-0.8The [facility] HospitalComment on above:Performed By: #### BMP #### [facility] [address] [place] [address] Dr. Kelly Spiveyocytes/100 WBC (Bld)4.9 %Normal1.7-12.0The [facility] Comment on above:Performed By: #### BMP #### [facility] [address] [place] [address] Dr. Kelly Alexis #2.7 103/ulNormal1.4-6.5The [facility] HospitalComment on above:Performed By: #### BMP #### [facility] [address] [place] [address] Dr. Kelly Delucautrophils/100 WBC (Bld)76.6 %Critically high43.0-75.0The [facility] HospitalComment on above:Performed By: #### BMP #### [facility] [address] [place], [place] [id number] Dr. Kelly MukherjeePlatelet mean volume (Bld) [Entitic vol]10.4 fLNormal9.5-13.5The [facility] HospitalComment on above:Performed By: #### BMP #### [facility] [address] [place] [address] Dr. Kelly MukherjeePLT72 103/ulCritically res055-140Yvt [facility] HospitalComment on above:Performed By: #### BMP #### [facility] [address] [place] [address] Dr. Kelly MukherjeeRBC3.17 106/ulCritically low4.70-6.10The [facility] HospitalComment on above:Performed By: #### BMP #### [facility] [address] [place] [address] Dr. Kelly MukherjeeWBC3.5 103/ulCritically low4.0-11.0The [facility] HospitalComment on above:Performed By: #### BMP #### [facility] [address] [place] [address] Dr. Kelly MukherjeeCT HEAD WO CONon [id number] HEAD WO CONEXAMINATION: CT HEAD WO CON HISTORY: SHORTNESS OF [...] Electronically authenticated by: CELINE COLVIN Date: 2022-02-15 15:45NormalThe [facility] HospitalPROF 14(COMP METB)on 68-59-8166Hxvrkdf [Mass/Vol]3.7 g/dLNormal 3.4-5.0The [facility] HospitalComment on above:Performed By: #### BMP #### [facility] [address] [place] [address] Dr. Kelly MukherjeeAlbumin/Globulin [Mass ratio]1.3 {ratio}NormalThe [facility] HospitalComment on above:Performed By: #### BMP #### [facility] [address] [place] [address] Dr. Kelly HallP [Catalytic activity/Vol]84 U/TUicmcj97-056Pbv [facility] HospitalComment on above:Performed By: #### BMP #### [facility] [address] [place] [address] Dr. Kelly HallT [Catalytic activity/Vol]29 U/OYlhnmf92-85Mmp [facility] HospitalComment on above:Performed By: #### BMP #### [facility] [address] [place] [address] Dr. Kelly Chavezon gap [Moles/Vol]14.3 mmol/LNormalThe [facility] Comment on above:Performed By: #### BMP #### [facility] [address] [place] [address] Dr. Kelly MukherjeeAST [Catalytic activity/Vol]15 U/RUwnvvn47-78Nax [facility] Hospitalment on above:Performed By: #### BMP #### [facility] [address] [place] [address] Dr. Kelly MukherjeeBilirubin [Mass/Vol]0.5 mg/dLNormal0.2-1.0The [facility] Comment on above:Performed By: #### BMP #### [facility] [address] [place] [address] Dr. Kelly MukherjeeCalcium [Mass/Vol]9.0 mg/dLNormal8.5-10.1The [facility] Comment on above:Performed By: #### BMP #### [facility] [address] [place] [address] Dr. Kelly MukherjeeChloride [Moles/Vol]105 mmol/GBwxfva77-173Mla [facility] Comment on above:Performed By: #### BMP #### [facility] [address] [address] [address] Kelly MukherjeeCO2 [Moles/Vol]27.0 mmol/YInundw48.0-32.0The [facility] Comment on above:Performed By: #### BMP #### [facility] [address] [address] [address] Kelly MukherjeeCreatinine [Mass/Vol]0.90 mg/dLNormal0.70-1.30The [facility] HospitalComment on above:Performed By: #### BMP #### [facility] [address] [address] [address] Mendoza ChangEGFR-AF KOSOVAN>60Normal>=60The [facility] HospitalComment on above:Performed By: #### BMP #### [facility] [address] [place] [address] Dr. Kelly LiangGFR-NON AF KOSOVAN>60Normal>=60The [facility] HospitalComment on above:Performed By: #### BMP #### [facility] [address] [place] [address] Dr. Kelly MukherjeeGlobulin (S) [Mass/Vol]2.9 g/dLNormalThe [facility] HospitalComment on above:Performed By: #### BMP #### [facility] [address] [place] [address] Dr. Kelly MukherjeeGlucose [Mass/Vol]234 mg/dLCritically pnso42-590Mxc [facility] HospitalComment on above:Performed By: #### BMP #### [facility] [address] [place] [address] Dr. Kelly MukherjeePotassium [Moles/Vol]4.3 mmol/LNormal3.5-5.1The [facility] Comment on above:Performed By: #### BMP #### [facility] [address] [address] [address] Kelly MukherjeeProtein [Mass/Vol]6.6 g/dLNormal6.4-8.2The [facility] Comment on above:Performed By: #### BMP #### [facility] [address] [place] [address] Dr. Kelly Pryordium [Moles/Vol]142 mmol/TLmtbrk499-720VexUpper Valley Medical Center Comment on above:Performed By: #### BMP #### [facility] [address] [place] [address] Dr. Kelly Bain nitrogen [Mass/Vol]27.0 mg/dLCritically high7.0-18.0[facility] Medical CenterComment on above:Performed By: #### BMP #### [facility] [address] [place] [address] Dr. Kelly Bain nitrogen/Creatinine [Mass ratio]30.0 mg/mgNoUK HealthcareComment on above:Performed By: #### BMP #### [facility] [address] [place] [address] Dr. Kelly Gallagher 77-26-2207WBF Coag (PPP) [Relative time]1.03 {INR} NormalThe [facility] HospitalComment on above:Performed By: #### CVDTBH #### [facility] [address] [place] [address] Dr. Kelly Godoy GUIDELINESSEE BELOWSycamore Medical CenterComment on above:Result Comment: DESIRED INR: 2.0 - 3.0 CONDITIONS NOT LISTED BELOW 2.5 - 3.5 FOR PROSTHETIC HEART VALVE REPLACEMENT 2.5 - 3.5 RECURRENT THROMBOSIS Performed By: #### CVDTBH #### [facility] [address] [place] [address] Dr. Kelly Lui Coag (PPP) [Time]11.1 sNormal9.0-11.6The [facility] Comment on above:Performed By: #### CVDTBH #### [facility] [address] [place] [address] Dr. Kelly Mayer 10-10-1125wCJM Coag (Bld) [Time]26.9 tOyhyaq15.3-36.2[facility] Medical CenterComment on above:Performed By: #### CVDTBH #### [facility] [address] [place] [address] Dr. Kelly MukherjeeXR CHEST 1 Von 07-49-4278GV CHEST 1 VEXAMINATION: XR CHEST 1 V HISTORY: SHORTNESS OF [...] process. Stable chest. Electronically authenticated by: SONAM DUFF Date: 2022-02-15 15:49[facility] Vital Signs Date TimeVital SignValuePerforming VepzreagnDfpiszzv43-77-8330 16:01-0400Body ihtykk288.72 cmBenjamin Ball DO Work Phone: [phone]08-18-2025 16:01-0400 Body mass index (BMI) [Ratio]22.1 kg/f4Eiqatnqr Ball DO Work Phone: [phone]08-18-2025 16:01-0400 Body aodkbl56.22 kgBenjamin Ball DO Work Phone: [phone]08-18-2025 16:01-0400 Diastolic blood ckwixbpl26 mm[Hg]Juan A Ball DO Work Phone: [phone] [place], [place] 8834108-18-2025 16:01-0400 Heart rate66 /minBenjamin Ball DO Work Phone: 1([phone] [place], [place] 8834108-18-2025 16:01-0400 Respiratory rate12 /minBenjamin Ball DO Work Phone: [phone] [place], [place] 0601808-18-2025 16:01-0400 Systolic blood lcyadnmv981 mm[Hg]Juan A Ball DO Work Phone: [phone] [place], [place] 0601801-03-2025 13:37-0500 [facility] .[facility] 13:37-0500Body mass index (BMI) [Ratio]23.8 kg/i6ZxltgjoxgWhite Hospital01-03-2025 13:37-0500Body yjmkil17.21 kgWhite [facility]01-03-2025 13:37-0500Diastolic blood xkayrdic75 mm[Hg][facility] 10-10-2024 13:37-0500Heart rate67 /[facility] 10-10-2024 13:37-0500Respiratory rate12 /[facility] 10-10-2024 13:37-0500Systolic blood blkdazug646 mm[Hg][facility]12-04-2024 09:54-0500Body axmwrc730.72 cmWhite [facility]12-04-2024 09:54-0500Body mass index (BMI) [Ratio]24 kg/v8VyosnxbutWhite Hospital12-04-2024 09:54-0500Body .72 kgWhite [facility]12-04-2024 09:54-0500Diastolic blood nsdjkseq17 mm[Hg] [facility]12-04-2024 09:54-0500Heart rate61 [facility]12-04-2024 09:54-0500Respiratory rate12 [facility]12-04-2024 09:54-0500Systolic blood jjoiaonn266 mm[Hg] [facility]10-28-2024 11:26-0400Body rusrqg036.7 Lilia FLORES Work Phone: [employer] TechnologySaint Luke's East HospitalNtwnfvlgmj26-26-6760 11:26-0400Body mass index (BMI) [Ratio]23.57 kg/m2Kristen FLORES Work Phone: [employer] TechnologySaint Luke's East HospitalAzqkpurwqq28-87-1177 11:26-0400Body uscmqw95.31 Lillian FLORES Work Phone: noSaint Luke's East HospitalYaojxdejcq31-62-7618 11:26-0400Diastolic blood raijgyvp63 mm[Hg]Kristen FLORES Work Phone: [facility] HospitalDfbksmfuil45-99-2680 11:26-0400Heart rate60 /min Kristen Brink PA Work Phone: [facility] HospitalIibxuhlsew55-46-0746 11:26-0400Respiratory rate16 /minKristen Brink PA Work Phone: [facility] HospitalNpjgvygini46-14-0954 11:26-6010IvN9% (BldA) [Mass fraction]100 %Kristen Brink PA Work Phone: [facility] HospitalMufgtxhpwr08-02-0358 11:26-0400Systolic blood tffwidiz700 mm[Hg]Kristen Brink PA Work Phone: [facility] HospitalSjjxvstfoy05-12-4405 11:52-0400Body mass index (BMI) [Ratio]22.87 kg/g3Aijxipbmoira Schmitt LIGHT INDUSTRIAL SUPERVISOR-POULTRY INSEMINATOR Work Phone: [facility]09-12-2024 11:52-0400Body rueafv63.22 kgAlexandra Benitooll LIGHT INDUSTRIAL SUPERVISOR-POULTRY INSEMINATOR Work Phone: [facility]09-12-2024 11:52-0400Diastolic blood biybgagz64 mm[Hg]Alexandra Benitooll LIGHT INDUSTRIAL SUPERVISOR-POULTRY INSEMINATOR Work Phone: [facility]09-12-2024 11:52-0400Heart rate 67 /minAlexandra Benitooll LIGHT INDUSTRIAL SUPERVISOR-POULTRY INSEMINATOR Work Phone: [facility]09-12-2024 11:52-0400Systolic blood rchxiyne937 mm[Hg]Alexandra Benitooll LIGHT INDUSTRIAL SUPERVISOR-POULTRY INSEMINATOR Work Phone: [facility]09-03-2024 13:45-0400Body gzhaps495.72 cmWhite [facility]09-03-2024 13:45-0400Body mass index (BMI) [Ratio]23.1 kg/t0RyknxzxpnWhite Hospital09-03-2024 13:45-0400Body zvgaes41.05 kgWhite Hospital09-03-2024 13:45-0400Diastolic blood eiwrfffl26 mm[Hg][facility] 06-10-2024 13:45-0400Heart rate61 /[facility] 06-10-2024 13:45-0400Respiratory rate20 /[facility] 06-10-2024 13:45-0400Systolic blood bejuetkt382 mm[Hg][facility]05-21-2024 14:23-0400Body pisauy209.72 cmWhite [facility]05-21-2024 14:23-0400Body mass index (BMI) [Ratio]25 kg/e3PalinrecjWhite Hospital05-21-2024 14:23-0400Body hfwdol12.84 kgWhite Hospital05-21-2024 14:23-0400Diastolic blood grnejjod27 mm[Hg] [facility]05-21-2024 14:23-0400Heart rate67 /[facility]05-21-2024 14:23-0400Respiratory rate20 /[facility]05-21-2024 14:23-0400Systolic blood mbcwmdew158 mm[Hg] [facility]03-08-2024 11:18-0500Body wudnfh502.72 cm [facility]03-08-2024 11:18-0500Body mass index (BMI) [Ratio]24 kg/r0HvdogfawrWhite Hospital03-08-2024 11:18-0500Body weight 71.89 kgWhite Hospital03-08-2024 11:18-0500Diastolic blood gmgnuthk87 mm[Hg][facility]03-08-2024 11:18-0500Heart rate65 /[facility]03-08-2024 11:18-0500Respiratory rate20 /[facility]03-08-2024 11:18-0500Systolic blood rhluhqyq895 mm[Hg][facility]01-30-2024 13:30-0500Body .72 cmBenjaProtecode Ball Other [facility] [employer] Other 01-30-2024 13:30-0500Body mass index (BMI) [Ratio] 24.45 kg/m4Qiekvuai Ball Other [employer] Other 01-30-2024 13:30-0500Body uzkold81.94 kgBenjamin Ball Other [employer] Other 01-30-2024 13:30-0500Diastolic blood vojbipzc88 mm[Hg] Juan A Ball Other [employer] Other 01-30-2024 13:30-0500Respiratory rate12 /minBenjamin Ball Other [employer] Other 01-30-2024 13:30-0500Systolic blood lvrndjke409 mm[Hg] Juan A Ball Other [employer] Other 09-28-2023 11:30-0400Body iqzisz020.72 cmBenjamin Ball Other [employer] Other 09-28-2023 11:30-0400Body mass index (BMI) [Ratio] 24.87 kg/f0Pypfkclg Ball Other [employer] Other 09-28-2023 11:30-0400Body kxeclp23.21 kgBenjamin Ball Other [employer] Other 09-28-2023 11:30-0400Diastolic blood aydmwagn44 mm[Hg] Juan A Ball Other [employer] Other 09-28-2023 11:30-0400Respiratory rate16 /minBenjamin Ball Other [employer] Other 09-28-2023 11:30-0400Systolic blood gjfakhod167 mm[Hg] Juan A Ball Other [employer] Other 06-28-2023 15:00-0400Body intiah676.72 cmBenjamin Ball Other [employer] Other 06-28-2023 15:00-0400Body mass index (BMI) [Ratio] 25.12 kg/t0Mshujfqa Ball Other [employer] Other 06-28-2023 15:00-0400Body kaqaik56.93 kgBenjamin Ball Other [employer] Other 06-28-2023 15:00-0400Diastolic blood icvkbeln77 mm[Hg] Juan A Ball Other [employer] Other 06-28-2023 15:00-0400Respiratory rate12 /minBenjamin Ball Other [employer] Other 06-28-2023 15:00-0400Systolic blood fscwserq895 mm[Hg] Juan A Ball Other [employer] Other 03-27-2023 14:30-0400Body .72 cmBenjamin Ball Other [employer] Other 03-27-2023 14:30-0400Body mass index (BMI) [Ratio] 24.93 kg/m7Yzyvaxpf Ball Other [employer] Other 03-27-2023 14:30-0400Body moibvf97.39 kgBenjamin Ball Other [employer] Other 03-27-2023 14:30-0400Diastolic blood uricxhkw91 mm[Hg] Juan A Ball Other [employer] Other 03-27-2023 14:30-0400Respiratory rate12 /minBenjamin Ball Other [employer] Other 03-27-2023 14:30-0400Systolic blood mm[Hg] Juan A Ball Other [employer] Other 01-06-2023 16:30-0500Body wlfonf298.72 cmBenjamin Ball Other [employer] Other 01-06-2023 16:30-0500Body mass index (BMI) [Ratio] 24.63 kg/t7Nbmvzvfv Ball Other [employer] Other 01-06-2023 16:30-0500Body zqhzet86.48 kgBenjamin Ball Other [employer] Other 01-06-2023 16:30-0500Diastolic blood lwwgvocd67 mm[Hg] Juan A Ball Other [employer] Other 01-06-2023 16:30-0500Respiratory rate12 /minBenjamin Ball Other [employer] Other 01-06-2023 16:30-0500Systolic blood twpgikcz818 mm[Hg] Juan A Ball Other [employer] Other [id number] 14:43-0500Body yztrwo508.3 cmTricia Crespo MD Work Phone: [facility]11-23-2022 14:43-0500Body temperature 97.7 [degF]Tricia Crespo MD Work Phone: [facility]11-23-2022 14:43-0500Body fhmcua71.57 kgTricia Crespo MD Work Phone: [facility]11-23-2022 14:43-0500Diastolic blood mm[Hg]Tricia Crespo MD Work Phone: [facility]11-23-2022 14:43-0500Heart rate59 /min Tricia Crespo MD Work Phone: [facility]11-23-2022 14:43-0500Respiratory rate 18 /minTricia Crespo MD Work Phone: [facility]11-23-2022 14:43-8347XjJ9% (BldA) [Mass fraction]96 %Tricia Crespo MD Work Phone: [facility]11-23-2022 14:43-0500Systolic blood mm[Hg]Tricia Crespo MD Work Phone: [facility] Encounters Encounter DateEncounter TypeCare ProviderFacilityStart: 05-25-2025 End: 38-74-8071tqcwxrwpinDdyjbssf Ball DO Work Phone: [facility] Work Phone: Start: 05-25-2025 End: 53-66-1885Psfzfot encounter procedureBekadeem Welsh DO-[facility] Work Phone: Start: 56-73-2978Tnu-patient / Non-visitCatlenora Sharpe CMA-[facility] Work Phone: Start: 33-93-8857Iol-patient / Non-visitBj Coleman DO-[facility] Work Phone: Start: 10-10-2024 End: 94-62-7591hklegwygomUfkwoiclqReg[facility] Work Phone: Start: 10-10-2024 End: 08-86-3203Tisfkao encounter [facility] Work Phone: Start: 09-10-2024 End: 22-40-7630Vblhigy encounter procedureC[facility] Work Phone: Start: 60-51-6641Fgc-patient / Non-visitC[facility] Work Phone: Start: 08-04-2024 End: 63-58-0355Teakdn Paolo FLORES Work Phone: [facility] STATE R[facility]TEStart: 08-04-2024 End: 84-69-4290Kygvhr Paolo FLORES Work Phone: [facility] STATE R[facility]TEStart: 08-04-2024 End: 12-94-8531xnlmaszrgtSJXN HILLNot AvailableStart: 08-04-2024 End: 52-70-6958Rjbooc outpatient visit 15 minutesKristen Bruce FLORES Work Phone: [facility] STATE ROUTEComment on above:Seizure disorder (CMS/HCC) (Primary Dx); 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, psychotic disturbance, mood disturbance, or anxiety, unspecified timing of dementia onset (CMS/HCC); PINA (obstructive sleep apnea)Start: 07-30-2024 End: 69-62-6906Flqpctbcl encounterLauren Venia CMAProMedica Physicians General SurgeryStart: 07-29-2024 End: 23-78-5994Aturpz OnlyNot In System Ref ProvProMedica Physicians General SurgeryStart: 07-09-2024 End: 42-27-7168nsmtxrnoabJA Juan A Welsh Work Phone: [facility] SystemComment on above:History of rectal cancerStart: 07-09-2024 End: 78-29-9683Ljzxduoy ReferredDO Juan A Blaise Work Phone: [facility]-LAB Path Spec Nima HospStart: 72-86-7898Slo-patient / Non-visitDO Juan A Welsh Work Phone: [facility] Work Phone: Start: 29-57-5092Sta-patient / Non-visitDO Juan A Welsh Work Phone: [facility] Work Phone: Start: 06-19-2024 End: 14-16-3276hugzedlpdrXYNUANWFairfax Hospital [facility] Start: 06-19-2024 End: 26-76-2329Kbeivj outpatient new 30 minutesNort[facility] Medical [facility] LIGHT INDUSTRIAL SUPERVISOR-POULTRY INSEMINATOR Work Phone: [facility] Physicians General SurgeryComment on above: History of rectal cancer (Primary Dx); Encounter for colonoscopy due to history of colonic polyp; Fecal urgencyStart: 06-10-2024 End: 27-77-4739fsznlmfajhSobfhxcckSt. [facility] Work Phone: Start: 06-10-2024 End: 26-17-0797Pltmwug encounter procedureC[facility] Work Phone: Start: 35-23-2043Dnbrxbs encounter procedureOhioHealthtart: 03-17-2024 End: 30-53-9333pbzjyrnbpmZEHU HILLNot AvailableStart: 02-26-2024 End: 16-60-0141xkhtfioxldNgbsdvkbnSt. [facility] of [facility] Hospital Work Phone: Start: 02-26-2024 End: 18-34-6706Ivkfefh encounter procedureC[facility] Work Phone: Start: 85-95-8341Ttp-patient / Non-visitFireland [facility] Work Phone: Start: 01-72-3513Slj-patient / Non-visitFirelands [facility] Work Phone: Start: 88-42-6530Mej-patient / Non-visitFirelands [facility]ician [facility] Work Phone: Start: 02-07-2024 End: 95-93-5180qrjzofcipuHPDCXAOE A BROWNNot AvailableStart: 12-14-2023 End: 44-19-0961Jhzzgvz encounter procedureC[facility] Work Phone: Start: 11-06-2023 End: 64-72-8554injmvdbvjoUgrpbrjv Ball Other [employer] Other Start: 32-59-0286Rzrzpj outpatient visit 25 minutes Juan A BallFPG [facility] ClinicStart: 07-17-2023 End: 31-47-7504kpwnsakxkmTvvkhgbx Ball Other [employer] Other Start: 63-26-6660Jmuhdwjcl encounterBenjamin BallFPG [facility] ClinicStart: 07-05-2023 End: 11-09-3150ebsqgygeghZiwgiyyu Ball Other [employer] Other Start: 22-41-7229Pohchks encounter procedureBenjamin BallFPG [facility] ClinicStart: 04-04-2023 End: 06-35-9696emyipprwvyCwgqbgdk Ball Other [employer] Other Start: 49-32-1148Yaauhv outpatient visit 25 minutes Juan A BallFPG [facility] ClinicStart: 01-01-2023 End: 62-74-0930etopgndhpoIhnegtnd Ball Other [employer] Other Start: 21-30-1392Ticzfd outpatient visit 25 minutes Juan A BallFPG [facility] ClinicStart: 12-14-2022 End: 45-40-4235xoxadfvagtHfbzcdiw Ball Other [employer] Other start: 98-19-5701Sbkzwgomj encounterBenjamin BallFPG [facility] ClinicStart: 12-11-2022 End: 91-71-1040zoipbfwbolCgrnmx W RICEFacility:EU SanduskyStart: 12-11-2022 End: 01-10-1766Iiqvldq encounter procedureRobert W YEFRI [facility] Vivi Start: 12-08-2022 End: 21-03-9454agodnhmyijLX DOMINIC ASIFFacility:Z4Qagpn: 11-27-2022 End: 72-18-8626txghodmhahCavswnln Ball Other no[employer] Other Start: 26-97-0056Kydgofldv encounterBenjamin BallFPG [facility] ClinicStart: 11-07-2022 End: 43-42-2392wrevgcuzatKQCA LACOURFacility:J7Fuwfc: 10-29-2022 End: 07-27-6264vlpasmfubkEnwspwkj Ball Other [employer] Other Start: 05-28-2465Ielfvxrqf encounterBenjamin BallFPG [facility] ClinicStart: 10-20-2022 End: 63-64-9963rkkhbfcjetFdrhuquk Ball Other [employer] Other Start: 95-23-4139Peeyerilk encounterBenjamin BallFPG [facility] ClinicStart: 10-13-2022 End: 05-10-7510chobaqdhrxRxqhsohe Ball Other [employer] Other Start: 93-00-9958Cuhkje outpatient visit 25 minutes Jua Na BallFPG [facility] ClinicStart: 10-04-2022 End: 03-09-1453ipftezlhdvNY JUAN A BALLFacility:X2Bqsgn: 02-84-8278Xuppywndf encounterRejet Kay RN Work Phone: Hematology/OncologyComment on above:Care Coordination (Lab Results)Start: 08-30-2022 End: 64-43-1871wnzvizpuquMvclcStormy Crespo MD Work Phone: Hematology/OncologyComment on above:Splenomegaly (Primary Dx); Abnormal finding of blood chemistry, unspecifiedStart: 08-30-2022 End: 83-57-1755Dgafjtp encounter procedureTricia Crespo MD Work Phone: SANDUSKYStart: 05-08-2022 End: 08-37-9740bfmqcaimphTT BENJAMIN BALLFacility:N6Xurdi: 05-03-2022 End: 76-75-2169qhhbuffdyzIQ BENJAMIN BALLFacility:V7Mjwtc: 04-19-2022 End: 60-58-0509hrvbrgvktgPKRZ LACOURFacility:Z6Ykphp: 03-27-2022 End: 34-86-5188bpzyerxdzrJD BENJAMIN BALLFacility:Y1Dwdco: 03-09-2022 End: 26-95-6348cnxnfitdmcPV BENJAMIN BALLFacility:R5Gwnzw: 02-15-2022 End: 63-06-2486abfgjgskviWO BENJAMIN BALLFacility:J8Teias: 07-17-2018 End: 32-22-5797Ozoidjl encounterDEFAULT PHYSICIANFacility:[facility] CENTERtart: 09-18-2017 End: 74-01-6582Xrylnnp encounterDEFAULT PHYSICIANFacility:[facility] Procedures DateProcedureProcedure DetailPerforming ClinicianStart: 22-54-5227MQDUCHH 1 HOUR Not In System Ref ProvStart: 60-61-9665Ruxzs i surg pathology gross examination onlyNot In System Ref ProvStart: 61-96-9831Uihhvmsp identified in Urine by CultureStart: 25-96-5466NRC screeningANNE LACOURComment on above:Performed By: #### CVDTBH #### [facility] [address] [place] [address] Dr. Kelly MukherjeeStart: 32-63-0409Twibjubwovhidu shockwave lithotripsy of calculus of kidneyRobert RICE Start: 96-25-0223UfqzoprrplvUvvbslc Carroll APRN-POULTRY INSEMINATOR Work Phone: Start: 45-42-6277Zrrhcdpinr, Rightt retrograde, J stent, ESWLRobert RICE Start: 23-57-9046Ladxlqd of coronary artery bypass graftingS/P CABG x 4Tricia Crespo MD Work Phone: ColonoscopyRobert RICE Coronary artery bypass grafts x 4Robert RICE Extraction of cataractRobert RICE Comment on above:BilateralRepair of inguinal hernia Dominic RICE Plan of Treatment DateCare ActivityDetailAuthorStart: 57-91-7266QZXXGMPT SCREENDIABETES SCREEN [facility]tart: 01-94-6028Hthxk BMI ScreeningAdult BMI ScreeningCity Hospital SystemStart: 47-77-6624Pvyoivm ScreeningTobacco ScreeningProLancaster Municipal Hospital SystemStart: 12-22-2024 End: 97-70-9444Uwiiasl encounter zuiydbfez26/17/2025 1:20 PM EDT Office Visit [facility] [address] [facility] [address] [place] [phone] Kristen Brink PA [address] [place], [place] [id number] [facility] ROUTEStart: 08-04-2024 End: 37-52-5789Yvgakaqmiiudz levelOxcarbazepine level Lab Routine Seizure disorder (CMS/HCC) Expected: 08/04/2024 (Approximate), Expires: 08/04/2025[facility] Work Phone: comment on above:Expected: 08/04/2024 (Approximate), Expires: 08/04/2025Start: 12-04-5292AclzovfclOhioHealthtart: 03-90-7939Auplbidyp for malignant neoplasm of colonColonoscopyCity Hospital SystemStart: 94-79-9916KWUHN-19 Vaccine ( season)COVID-19 Vaccine ( season)[facility] Hospital SystemStart: 52-88-2826Arayduyqp vaccination [facility] HospitalStart: 53-39-0721ZYaV,Tdap and Td Vaccines (4 - Td or Tdap) DTaP,Tdap and Td Vaccines (4 - Td or Tdap)[facility] SystemStart: 02-27-2023 End: 44-79-1153HPS W Auto Differential panel - BloodCBC + DIFF Lab Routine Splenomegaly Expected: 02/27/2023 (Approximate), Expires: 04/29/2023[facility] Work Phone: Comment on above:Expected: 02/27/2023 (Approximate), Expires: 04/29/2023Start: 02-27-2023 End: 37-15-4831Uimflavzkdqgv metabolic 2000 panel - Serum or PlasmaCOMP METABOLIC PANEL Lab Routine Splenomegaly Expected: 02/27/2023 (Approximate), Expires: 04/29/2023[facility] Work Phone: Comment on above:Expected: 02/27/2023 (Approximate), Expires: 04/29/2023Start: 08-30-2022 End: 81-28-5691Yeikefvbz (Vitamin B12) [Mass/volume] in Serum or PlasmaMarietta Memorial Hospital Work Phone: Comment on above:Expected: 08/30/2022, Expires: 10/30/2022Start: 08-30-2022 End: 63-60-7027Xjelxaek [Mass/volume] in Serum or PlasmaMarietta Memorial Hospital Work Phone: Comment on above:Expected: 08/30/2022, Expires: 08/30/2023Start: 08-30-2022 End: 70-11-3380Adwg and Iron binding capacity panel - Serum or PlasmaMarietta Memorial Hospital Work Phone: Comment on above:Expected: 08/30/2022, Expires: 08/30/2023Start: 18-48-3557DNRJUTI DIRECTIVE DISCUSSIONADVANCE DIRECTIVE DISCUSSIONGood Samaritan Hospitaltart: 31-57-3820LIDMDJCDKE ASSESSMENTDEPRESSION ASSESSMENTGood Samaritan Hospitaltart: 41-74-7159FTOUC-19 VACCINE (3 - Booster for Moderna series)COVID-19 VACCINE (3 - Booster for Moderna series)[facility] Start: 85-16-3785Kuizxnpdk aortic aneurysm screeningAbdominal Aortic Aneurysm (AAA) ScreenProThe Christ Hospitaltart: 25-84-1290Lcbq Risk ScreeningFall Risk ScreeningFormerly Park Ridge Healthtart: 97-18-4448EPWBGRGDTZUK: 65+ (1 - PCV) PNEUMOCOCCAL: 65+ (1 - PCV)[facility] Hospitaltart: 59-80-5563Priejbwrchjfcr of varicella zoster vaccineZoster (Shingles) Vaccine (1 of 2)ProMMedicine Lodge Memorial Hospitaltart: 91-51-5032TFBFZUUJ VACCINE (1 of 2)SHINGRIX VACCINE (1 of 2) [facility] Hospitaltart: 38-90-2866Ykexl microalbumin profileDTAP,TDAP,TD (1 - Tdap)[facility] Hospitaltart: 56-36-5628QILHNL PCP TEAM CHRONIC DISEASE VISIT ANNUAL PCP TEAM CHRONIC DISEASE VISITGood Samaritan Hospitaltart: 89-73-5059Xtmeqiiem B surface antibody levelLDL CHOLESTEROLGood Samaritan Hospitaltart: 1957 Depression ScreeningDepression ScreeningFormerly Park Ridge Healthtart: 1945 Medicare Annual Wellness VisitMedicare Annual Wellness VisitDunlap Memorial HospitalBacteria identified in Urine by CultureWhite Hospital End: 54-88-1535UvuwfagluwjHhnoumjgfzs GI Routine History of rectal cancer 1 Occurrences starting 06/19/2024 until 06/19/2025[facility] Work Phone: Comment on above:1 Occurrences starting 06/19/2024 until 06/19/2025omprehensive metabolic 2000 panel - Serum or PlasmaWestern Medical Center Immunizations Immunization DateImmunizationNotesCare AwchaohxRbetbpyh29-63-3677mlbcrngcz, high dose seasonal, preservative-freeWhite Hospital09-28-2023 influenza virus vaccine, unspecified formulationWhite Hospital09-28-2023influenza, high dose seasonal, preservative-freeBenjamin Ball Other [employer] Other 10891768-37-0591nyqytpztb (aIIV4) vaccine, age 65+ yr, quadrivalent, PF (FLUAD QUADRIVALENT)Tricia Crespo MD Work Phone: [facility], AvonAyyxed19-98-5762msizkkzjh virus vaccine, split virus (incl. purified surface antigen)Juan A Welsh Other [facility] [employer] Other 10260333-46-0209hbslegrsv virus vaccine, unspecified formulationRobGetJar [facility] Hospitaly10-04-2022influenza, high dose seasonal, preservative-freeBenjamin Ball Other [place] [employer] Other 10971341-25-8237qgrmchncg virus vaccine, split virus (incl. purified surface antigen)Juan A Welsh Other [employer] Other 10765820-19-0066sriyotqyf virus vaccine, unspecified formulationWhite Hospital10-01-2021influenza virus vaccine, unspecified formulationRobert MyPermissions [facility]03-02-2021COVID-19 original vaccine, full dose, monovalent (MODERNA) Tricia Crespo MD Work Phone: [facility], AvonWraalv79-83-8124QWSQ-BrD-7 (COVID-19) mRNA- 1273 vaccineRobert MyPermissions [facility]02-02-2021COVID-19 original vaccine, full dose, monovalent (MODERNA) Tricia Crespo MD Work Phone: [facility]onCpzcsk62-93-0073LOSS-GzF-8 (COVID-19) mRNA 1273 vaccineRobert RICE [facility] [place] 545111-25-2020pneumococcal conjugate vaccine, 13 Gila FLORES Work Phone: [facility] HospitalIcsescguxp97-95-4565gfvpkkmap virus vaccine, split virus (incl. purified surface antigen)Juan A Welsh Other [facility] [employer] Other 621715-03-8519zwseuilqj virus vaccine, unspecified formulationRobert MyPermissions [facility] [place] 100820-23-2020influenza, injectable, quadrivalent, preservative Clifford Crespo MD Work Phone: [facility], AvonTopiqb11-60-5247iruoicjcd virus vaccine, split virus (incl. purified surface antigen)Juan A Welsh Other [place] [employer] Other 10-544736-29-6398lsttqjqtb virus vaccine, unspecified formulationWhite Hospital10-11-2018influenza virus vaccine, split virus (incl. purified surface antigen)Juan A Welsh Other [place] [employer] Other 10279177-26-6165qjvvvqtgv virus vaccine, unspecified formulationRobert MyPermissions [facility] [place] 545110-11-2018Seasonal trivalent influenza vaccine, adjuvanted, preservative Clifford Crespo MD Work Phone: [facility] AvonNydzer37-00-8990xmbejsopg virus vaccine, split virus (incl. purified surface antigen)Juan A Welsh Other [employer] Other 11117738-46-5634foteymner virus vaccine, unspecified formulationWhite Hospital11-13-2017influenza virus vaccine, unspecified formulationRobert MyPermissions [facility] [place] 545111-13-2017Seasonal trivalent influenza vaccine, adjuvanted, preservative Clifford Crespo MD Work Phone: [facility] AvonChpcrh57-91-3133tnydmalfh virus vaccine, split virus (incl. purified surface antigen)Juan A Welsh Other [employer] Other 09-827616-94-8027xasjxeoln virus vaccine, unspecified formulationWhite Hospital11-27-2015influenza virus vaccine, unspecified formulationRobert MyPermissions [facility] [place] 545111-27-2015influenza, injectable, quadrivalent, preservative Clifford Crespo MD Work Phone: [facility] AvonPgqsvr29-49-3550xemdcxtbgtdw conjugate vaccine, 13 valentBenarielstacie Welsh Other [facility]11-12-2014influenza virus vaccine, unspecified formulationRobert MyPermissions [facility] [place] 545111-12-2014influenza, injectable, quadrivalent, contains preservative Tricia Crespo MD Work Phone: [facility] AvonPfhnom51-42-5402wguoqkxja virus vaccine, unspecified formulationRobert RICE [facility] [place] 545111-13-2013influenza, seasonal, injectableTricia Crespo MD Work Phone: [facility], AvonQbfttd62-70-3708otcdywhvhqjp polysaccharide vaccine, 23 valentBenisreenaicha Welsh Other [facility]09-05-2013tetanus and diphtheria toxoids, adsorbed, preservative free, for adult use (5 Lf of tetanus toxoid and 2 Lf of diphtheria toxoid)Juan A Blaise Other [facility]09-12-2012tetanus and diphtheria toxoids, adsorbed, preservative free, for adult use (5 Lf of tetanus toxoid and 2 Lf of diphtheria toxoid)Juan A Welsh Other [facility]07-03-2002diphtheria, tetanus toxoids and acellular pertussis vaccine, unspecified formulation Juan A Welsh Other [facility] Payers DatePayer CategoryPayerPolicy [id number]-[id number] Care Other (unspecified) [facility] Member Subscriber Plan / Payer (Effective 2018-Present) Name: ZoranBrian hodge Relation to Subscriber: Self Name: Brian Meehan Payer ID: [id number] (NAIC) Group ID: [id number] Type: Not on file Address: [address] [id number] Health [id number] 2011Medicare [id number] [id number] 1960 [id number] 2.16.840.1.571476.3.579.2.647 [id number] 2.16840.1.639943.3.57[id number] 2.16.840.1.948507.3.57[id number] 2.16840.1.391545.3.57[id number] 2.16840.1.236932.3.57[id number] 2.16840.1.785370.3.57[id number] 2.840.1.780473.3.57[id number] 2.16840.1.291412.3.57[id number] 2.840.1.289095.3.57[id number] 2.840.1.598854.3.57[id number] 2.840.1.307244.3.57[id number] 2.16840.1.309930.3.57[id number] 2.16840.1.137138.3.57[id number] 2.16840.1.889870.3.57[id number] 2.16840.1.092558.3.57[id number] 2.16.840.1.031153.3.[id number] 2.16.840.1.955121.3.579.2.531 Social History DateTypeDetailFacilityStart: 06-02-2019 End: 29-22-4365Kjebjiz smoking status NHISEx-smokerSelect [facility], [facility]onHistory of tobacco useCurrent smokerSelect Medical [facility], AvonHistory of tobacco usePassive smoker [facility]tart: 06-02-2019 End: 64-19-8925Bsmmbhv use and exposureSmokeless tobacco non-userGood Samaritan Hospitaltart: 17-63-4202Yvlfjks intakeCurrent non-drinker of alcohol (finding) [facility]tart: 50-70-5806Ojt Assigned At BirthNot on fileGood Samaritan Hospitaltart: 08-20-2022 End: 85-07-8826Fnvlfyxw to SARS-CoV-2 (event)Not sureGood Samaritan Hospitaltart: 11-18-2020 End: 33-71-4021Gnt Assigned At [facility]: 60-66-8364Vmb Assigned At [facility] HospitalHistory of tobacco useCigarette SmokerMOUNTAIN POINT [facility] HealthcareStart: 03-17-2024 End: 76-60-1362Ncvfunpfc beverage intakeLifetime non-drinker (finding)[facility] HealthcareStart: 11-18-2020 End: 62-72-1122Ygexlzq of Social functionProSelect Medical Specialty Hospital - Youngstownca Health SystemStart: 06-80-5528Mhksmsx CommentAge stop: 25N[facility] HealthcareTobacco smoking status NHIS Unknown if ever smokedMemorial Hospital Work Phone: Start: 05-23-2019 End: 06-00-1929SkeKefr (finding)OhioHealthtart: 49-63-4080Rfdanprbv beverage intakeEx-drinker (finding)[facility] ChildcareUnknoEssentia Health SystemNEGATED: Highlighted rowStart: NINF History of tobacco usePassive smokerPike County Memorial Hospital Medical Equipment Procedure CodeEquipment CodeEquipment Original TextEquipment IdentifierDates Start: 95-46-2657Xah Needle, Diabetic (Droplet Pen Needle) 31 gauge x 5/16 needleStart: 07-71-3287Svv Needle, Diabetic (Comfort Ez Pen [place]) 31 gauge x 5/16 needleStart: 03-03-2025 End: 03-03-2025 Functional Status ScxvBaixcahgtiJjksimUkfycozt75-28-9276Ubowfxzxwf StatusN/AExecutive [facility]rology of [facility] Clinical Notes 08-30-2022 to 09-10-2024 Note Date & UisqDuxaSkjdlcqq13-00-3214 Evaluation note* Diagnosis Onset Date Resolution Status Admit Date Contusion, chest wall acuteDecember 2023 9:48amPrimary hypertensionacuteDecember 2023 9:48am Alzheimer's dementiaacuteJanuary 2024 1:31pmASHD (arteriosclerotic heart disease)acuteJanuary 2024 1:31pmElevated cholesterolacuteJanuary 2024 1:31pmPancytopeniaacuteJanuary 2024 1:31pmPrimary hypertensionacuteJanuary 2024 1:31pmType 2 diabetes mellitus with hyperglycemiaacuteJanuary 2024 1:31pm [facility] Work Phone: 1(859) 414-723010-28-2024 History of Present illness Narrative* SANDRA Fisher - 08/04/2024 11:20 AM EDT Subjective Brian Meehan is a 79 y.o. year old male [...] Review Audit Reviewed by Concha Milligan MA (Gas Mask Assembler) on 03/17/24 at 1135 Medication Order Taking? Sig Documenting Provider Last Dose Status allopurinol (Zyloprim) 300 MG tablet [id number] No Aamir Roberson, DPM Taking Active amLODIPine (Norvasc) 5 MG tablet [id number] No Aamir Roberson, DPM Taking Active citalopram (CeleXA) 20 MG tablet [id number] No Aamir Roberson, DPM Taking Active donepezil (Aricept) 10 MG tablet [id number] No TAKE 1 TABLET AT BEDTIME SANDRA Fisher Taking Active doxycycline (Vibramycin) 100 MG capsule [id number] No TAKE ONE CAPSULE BY MOUTH ONCE DAILY FOR 7 DAYSAamir Roberson, DPM Taking Active isosorbide mononitrate ER (Imdur) 30 MG 24 hr tablet [id number] No Aamir Roberson, DPM Taking Active losartan (Cozaar) 50 MG tablet [id number] No Aamir Roberson, DPM Taking Active Memantine HCl ER 28 MG capsule sustained-release 24 hr [id number] No TAKE 1 CAPSULE ONE TIME DAILY SANDRA Fisher Taking Active NovoLOG MIX 70/30 FLEXPEN (70-30) 100 UNIT/ML injection [id number] No Aamir Roberson, DPM Taking Active OXcarbazepine (Trileptal) 300 MG tablet [id number] No Aamir Roberson, DPM Taking Active simvastatin (Zocor) 20 MG tablet [id number] No Take 20 mg by mouth at bedtime Aamir Roberson, DPM Taking Active HPI Seizure -on Trileptal [...] triceps, wrist extensors, wrist extensors, wrist flexor, cane feeder strength 5/5. LUE Strength deltoid, biceps, triceps, wrist extensors, wrist extensors, wrist flexor, cane feeder strength 5/5. RLE Strength illopsoas, quadriceps, tibialis [...] or anxiety, unspecified timing of dementia onset ([facility]) He continues with memory troubles due to Alzheimer's dementia. MOCA 11/26/2023 was . Treated with Namenda and Aricept. I advised patient to refrain from driving. His states he does not drive PINA (obstructive sleep apnea) The patient is not compliant with his CPAP as he reports that he cannot tolerate this. This likely influences his memory and is also contributing to his persistent fatigue. Seizure disorder ([facility]) history of seizure disorder with focal events [...] updating EEG pending course documented in this encounterPike County Memorial HospitalUiceifodoe90-08-1867 Miscellaneous Notes* Telephone Encounter - Olivia Olivares CMA - 07/30/2024 10:44 AM EDT ----- Message from Dr. Jurgen Lozano DO sent at 07/30/2024 7:35 AM EDT ----- [...] be put in chart. documented in this encounterDunlap Memorial Hospital10-23-2024 Telephone encounter Note* Telephone Encounter - Olivia Olivares CMA - 07/30/2024 10:44 AM EDT ----- Message from Dr. Jurgen Lozano DO sent at 07/30/2024 7:35 AM EDT ----- Please let patient know that he had a tubular adenoma and I recommend repeat colonoscopy in 5 yearsif he so wishes even though he would be 84 years of age. Thanks, Dr. Joseph [facility]10-23-2024 Telephone encounter Note* Telephone Encounter - Olivia Olivares CMA - 07/30/2024 10:44 AM EDT While in the process of leaving patient a voicemail, patient's spouse Iman answered the phone. Spoke with Iman regarding patient's pathology results as she is an approved contact for PHI. Iman verbally understood with no further questions. Recall to be put in chart. [facility]09-12-2024 History of Present illness Narrative* Alexandra Schmitt, LIGHT INDUSTRIAL SUPERVISOR-POULTRY INSEMINATOR - 06/19/2024 11:30 AM EDT Images from the original note were not included. Chief Complaint: Colonoscopy History of Present Illness Brian Meehan is a 79 y.o. male who presents [...] Past Medical History: Diagnosis Date Colon cancer ([facility]) Diabetes mellitus ([facility]) Kidney stone Past Surgical History: Procedure Laterality [...] PROTIME Assessment Personal history of rectal cancer 2008 Bowel urgency and loose stools Unintentional weight [...] patient/family/caregiver Referring and communicating with other health inpatient care manager rn History of rectal cancer [Z85.048] DORENE SHAH [facility] [place] This note was created with the assistance of a speech recognition program. While intending to generate a timely document that accurately reflects the content of the visit, no guarantee can be provided that every grammatical or spelling mistake has been or will be identified or corrected. Thank you for your understanding. DORENE Shah 06/19/24 1309 documented in this encounterDunlap Memorial Hospital09-12-2024 Miscellaneous Notes* Addendum Note - DORENE Shah - 06/19/2024 11:30 AM EDT Addended by: ALEXANDRA SCHMITT on: 06/19/2024 01:09 PM Modules accepted: Orders documented in this [facility]09-12-2024 Note* Addendum Note - DORENE Shah - 06/19/2024 11:30 AM EDTAddended by: ALEXANDRA SCHMITT on: 06/19/2024 01:09 PM Modules accepted: Orders [facility]01-30-2024 Evaluation note* Encounter Date Diagnosis Assessment Notes Treatment Notes Treatment Clinical Notes Oct, ASHD (arteriosclerotic heart dis ease) (ICD-10 - I25.10) This patient is stable without activity related CP, dyspnea or lightheadedness. They are instructedto continue exercise and AHA diet plan. Continue secondary prevention measures. Oct,Type 2 diabetes mellitus with hyperglycemia (ICD-10 - E11.65)This patient is following a comprehensive diabetic treatment [...] office visit. Continue regular routine monitoring of A1C,Microalbumin, Dilated eye exam and Foot exam Oct,rimary hypertension (ICD-10 - I10)This patient is instructed to consume a healthy, low-fat, low-salt diet. They are also encouraged to continue exercise to achieve/maintain a normal BMI. Oct,Elevated cholesterol (ICD-10 - E78.00)Instructed on diet and exercise with continued statin therapy.Discussed the beneficial effects of lo wering cholesterol in reducing the risk for cerebrovascular and cardiovascular disease. Oct,ancytopenia (ICD-10 - D61.818)Chronic condition No significant change f/u Hematology as scheduled Oct,lzheimer's disease, unspecified (ICD-10 - G30.9)Requires 24 hours care. Family assisting in ADL and IADL He sleeps most of the day and has no interests Oct,ementia in other diseases classified elsewhere, unspecified severity, without behavioral disturbance, psychotic disturbance, mood disturbance, and anxiety (ICD-10 - F02.80) Oct,Hx of malignant neoplasm of colon (ICD-10 - Z85.038)UTD w/ CRC surceillance Oct,Long term (current) use of insulin (ICD-10 - Z79.4) Oct,Nephrolithiasis (ICD-10 - N20.0)Push fluids and continue Allopurinol [employer] Other 09-28-2023 Evaluation note* Encounter Date Diagnosis [...] reviewed and amended by provider signed below. Jun,SHD (arteriosclerotic heart disease) (ICD-10 - I25.10)This patient is stable without activity related CP, dyspnea or lightheadedness. They are instructedto continue exercise and AHA diet plan. Continue secondary prevention measures. Jun,Type 2 diabetes mellitus with hyperglycemia (ICD-10 - E11.65)This patient is following a comprehensive diabetic treatment [...] Microalbumin, Dilated eye exam and Foot exam Jun,rimary hypertension (ICD-10 - I10)This patient is instructed to consume a healthy, low-fat, low-salt diet. They are also encouraged to continue exercise to achieve/maintain a normal BMI. Jun,Elevated cholesterol (ICD-10 - E78.00)Instructed on diet and exercise with continued statin therapy.Discussed the beneficial effects of lo wering cholesterol in reducing the risk for cerebrovascular and cardiovascular disease. Jun,ancytopenia (ICD-10 - D61.818)No s/s bleeding. No s/s intercurrent infection Denies night sweats Continue f/u w/ Hematology Jun,lzheimer's disease, unspecified (ICD-10 - G30.9)Continue healthy diet and keep active assisting w/ ADL. Jun,ementia in other diseases classified elsewhere, unspecified severity, without behavioral disturbance, psychotic disturbance, mood disturbance, and anxiety (ICD-10 - F02.80) Jun,Hx of malignant neoplasm of colon (ICD-10 - Z85.038)Last scope in 2019 w/ no f/u scopes scheduled. Denies change in bowel habits, continues w/ fecal incontinence. Denies melena or hematochezia Jun,Long term (current) use of insulin (ICD-10 - Z79.4) Jun,Screening PSA (prostate specific antigen) (ICD-10 - Z12.5)Yearly PSA [employer] Other 06-28-2023 Evaluation note* Encounter Date Diagnosis Assessment Notes Treatment Notes Treatment Clinical Notes Mar, ASHD (arteriosclerotic heart dis ease) (ICD-10 - I25.10) This patient is stable without activity related CP, dyspnea or lightheadedness. They are instructedto continue exercise and AHA diet plan. Mar,Type 2 diabetes mellitus with hyperglycemia (ICD-10 - E11.65)This patient is following a comprehensive diabetic treatment [...] Microalbumin, Dilated eye exam and Foot exam Mar,rimary hypertension (ICD-10 - I10)This patient is instructed to consume a healthy, low-fat, low-salt diet. They are also encouraged to continue exercise to achieve/maintain a normal BMI. Mar,Elevated cholesterol (ICD-10 - E78.00)Instructed on diet and exercise with continued statin therapy.Discussed the beneficial effects of lo wering cholesterol in reducing the risk for cerebrovascular and cardiovascular disease. Mar,ancytopenia (ICD-10 - D61.818) Mar,lzheimer's disease, unspecified (ICD-10 - G30.9)Mild-moderate cognitive impairment. Encouraged to perform brain exercises daily Continue Aricept and Namenda assisting w/ ADL Mar,ementia in other diseases classified elsewhere, unspecified severity, without behavioral disturbance, psychotic disturbance, mood disturbance, and anxiety (ICD-10 - F02.80) Mar,OSA (obstructive sleep apnea) (ICD-10 - G47.33)This patient is aware of the benefits associated with PINA: With continued use, the patient reduces the risk for MD, CVA, HTN, cardiac dysrhythmias and sudden cardiac deaths.The patient is also aware of the association between PINA and morning headaches, daytime somnolence, fatigue and obesiity Noncompliant Mar,Hx of malignant neoplasm of colon (ICD-10 - Z85.038)No s/s recurrence. UTD w/ surveillance scopes Mar,Long term (current) use of insulin (ICD-10 - Z79.4) [employer] Other 03-27-2023 Evaluation note* Encounter Date Diagnosis Assessment Notes Treatment Notes Treatment Clinical Notes Dec, ASHD (arteriosclerotic heart dis ease) (ICD-10 - I25.10) This patient is stable without activity related CP, dyspnea or lightheadedness. They are instructedto continue exercise and AHA diet plan. Dec,Type 2 diabetes mellitus with hyperglycemia (ICD-10 - E11.65)This patient is following a comprehensive diabetic treatment plan. They are checking their feet daily for calluses and nonhealing ulcers. They are being seen for yearly dilated eye examinations. Goals: SBP less than 130, LDL less than 100, FBS less than 140, AC and A1C less than 7%. They are checking their BS daily, will which are reviewed at the office visit. Dec,rimary hypertension (ICD-10 - I10)This patient is instructed to consume a healthy, low-fat, low-salt diet. They are also encouraged to continue exercise to achieve/maintain a normal BMI. Dec,Elevated cholesterol (ICD-10 - E78.00)Diet and exercise with continued statin therapy. Dec,ancytopenia (ICD-10 - D61.818)Stable, f/u hematology - splenomegaly Dec,OSA (obstructive sleep apnea) (ICD-10 - G47.33)This patient is aware of the benefits associated with PINA: With continued use, the patient reduces the risk for MD, CVA, HTN, cardiac dysrhythmias and sudden cardiac deaths.The patient is also aware of the association between PINA and morning headaches, daytime somnolence, fatigue and obesity Dec,lzheimer's disease, unspecified (ICD-10 - G30.9)Chronic condition, assisting w/ all activities of daily living. Continue present RX - aware of bradycardia as possible side effect Dec,Long term (current) use of insulin (ICD-10 - Z79.4) Dec,ementia in other diseases classified elsewhere, unspecified severity, without behavioral disturbance, psychotic disturbance, mood disturbance, and anxiety (ICD-10 - F02.80) Dec,Hx of malignant neoplasm of colon (ICD-10 - Z85.038)UTD w/ CRC screening [employer] Other 03-06-2023 Hospital Discharge instructions Patient Education [...] potassium each day. These include: ?Avocado. ?Banana. ?[place], prune, carrot, or tomato juice. ?Baked potato. [...] Casseroles. Pizza. Lasagna. Frozen meals. Potato chips. Maori fries. Summary You can reduce your risk [...] 01/19/2012 Document Revised: 01/14/2020 Document Reviewed: 09/04/2017 [employer] [place] Patient Education 2020 [employer]. Follow Up Care 12/05/2021 11:51:44 With:YEFRI HUIZAR, Dominic Handley, URL Address: [address] [place], [place] [id number]- When: only if needed Comments:LORNAN [facility] 02-20-2023 Evaluation note* Encounter Date Diagnosis Assessment Notes Treatment Notes Treatment Clinical Notes Nov, Primary hypertension (ICD-10 - I 10) [facility] [employer] Other 01-13-2023 Evaluation note* Encounter Date Diagnosis Assessment Notes Treatment Notes Treatment Clinical Notes Oct, EKTA (generalized anxiety disorde r) (ICD-10 - F41.1) Oct,Elevated cholesterol (ICD-10 - E78.00) Oct,SHD (arteriosclerotic heart disease) (ICD-10 - I25.10) [facility] [employer] Other 01-06-2023 Evaluation note* Encounter Date Diagnosis Assessment Notes Treatment Notes Treatment Clinical Notes Oct, ASHD (arteriosclerotic heart dis ease) (ICD-10 - I25.10) This patient is stable without activity related CP, dyspnea or lightheadedness. They are instructedto continue exercise and AHA diet plan. Oct,Orthostatic hypotension (ICD-10 - I95.1)Hydrate and avoid long hot showers. Monitor BP twice daily and report results to office Oct,rimary hypertension (ICD-10 - I10)This patient is instructed to consume a healthy, low-fat, low-salt diet. They are also encouraged to continue exercise to achieve/maintain a normal BMI. Oct,AD (generalized anxiety disorder) (ICD-10 - F41.1)Healthy diet and keep active. Oct,Elevated cholesterol (ICD-10 - E78.00)Diet and exercise with continued statin therapy. Oct,lzheimer's disease, unspecified (ICD-10 - G30.9)Continue present medications. Aricept may cause bradycardia, monitor for now. Oct,ementia in other diseases classified elsewhere, unspecified severity, without behavioral disturbance, psychotic disturbance, mood disturbance, and anxiety (ICD-10 - F02.80) Oct,enign prostatic hyperplasia with lower urinary tract symptoms (ICD- 10 - N40.1)Banegas placed during hospital stay w/ some hesitancy upon d/c, has corrected itself. Oct,Nocturia (ICD-10 - R35.1) Oct,OSA (obstructive sleep apnea) (ICD-10 - G47.33)This patient is aware of the benefits associated with PINA: With continued use, the patient reduces the risk for MD, CVA, HTN, cardiac dysrhythmias and sudden cardiac deaths. The patient is also awareof the association between PINA and morning headaches, daytime somnolence, fatigue and obesity, which also has been improved with continued use. The patient is compliant with treatment, wearing the equipment every night for greater than 4 hours. The patient is instructed to continue use of the CPAP for PINA treatment. Noncompliant Oct,ancytopenia (ICD-10 - D61.818)Monitor CBC, f/u with Hematology Oct,recordial pain (ICD-10 - R07.2)Not associated w/ activity, more often occurring at rest, in evening after eating. Oct,Type 2 diabetes mellitus with hyperglycemia (ICD-10 - E11.65)This patient is following a comprehensive diabetic treatment plan. They are checking their feet daily for calluses and nonhealing ulcers. They are being seen for yearly dilated eye examinations. Goals: SBP less than 130, LDL less than 100, FBS less than 140, AC and A1C less than 7%. They are checking their BS daily, will which are reviewed at the office visit. Oct,Long term (current) use of insulin (ICD-10 - Z79.4) [employer] Other 11-25-2022 Miscellaneous Notes* Telephone Encounter - Rolando Kay RN - 09/01/2022 1:19 PM EST Pt's spouse notified and verbalizes understanding. Reports the pt is drinking at least 48 oz per day. Advised they try for at least 64 oz if possible. Spouse verbalizes understanding. Rolando Kay RN * Telephone Encounter - Rolando Kay RN - 09/01/2022 1:18 PM EST ----- Message from Tricia Crespo MD sent at 08/30/2022 4:41 PM EST ----- Please call with stable labs and make sure that he is adequaly hydrated every day [facility] [place] NoteHNO ID: [id number] Author: Tricia Crespo MD Service: ? Author Type: Physician Type: Progress Notes Filed: 08/30/2022 3:09 PM Note Text: Patient: Brian Meehan Location: [facility] : 1945 Attending Physician: Dr. Vazquez Quinonez [...] erythema BP 147/53[second a (more content not included)...[facility] [place] 08-30-2022 History of Present illness Narrative* Tricia Crespo MD - 08/30/2022 2:59 PM EST Patient: Brian Meehan Location: [facility] : 1945 Attending Physician: Dr. Vazquez Quinonez [...] units) Date Value 10/23/2013 Negative URINALYSIS Specific [place], [place] Date Value Ref Range Status 06/26/2017 [...] months Tricia Crespo MD CC: Juan A Welsh MD documented in [facility] encounterC[facility] + Plan note No data available for this section [facility] Evaluation note* Diagnosis Splenomegaly- Primary Abnormal finding of blood chemistry, unspecified documented in [facility] encounter [facility] noteNo [facility] [employer] [employer] Other Evaluation note* Diagnosis Onset Date Resolution Status Second degree burn of back noneactiveAlzheimer's dementiaacuteASHD (arteriosclerotic heart disease)acute Elevated cholesterolacutePancytopeniaacutePrimary hypertensionacuteType 2 diabetes mellitus with hyperglycemiaacute [facility] Work Phone: Evaluation note* Diagnosis Onset Date Resolution Status Alzheimer's dementia acuteASHD (arteriosclerotic heart disease)acuteElevated cholesterolacute Encounter for subsequent annual wellness visit in Medicare patientacute PancytopeniaacutePrimary hypertensionacuteType 2 diabetes mellitus with hyperglycemiaacute [facility] Work Phone: Evaluation note* Diagnosis Seizure disorder (CMS/HCC)- Primary Unspecified epilepsy without mention of intractable epilepsy 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, psychotic disturbance, mood disturbance, or anxiety, unspecified timing of dementia onset (CMS/HCC) PINA (obstructive sleep apnea) Obstructive sleep apnea (adult) (pediatric) [facility] History of rectal cancer [facility] History of rectal cancer- Primary Encounter for colonoscopy due to history of colonic polyp Fecal urgency [facility] Diagnosis Onset Date Resolution Status Admit Date Alzheimer's dementia acuteAugust 2024 3:51pmASHD (arteriosclerotic heart disease)acuteAugust 2024 3:51pmElevated cholesterolacuteAugust 2024 3:51pmHx of malignant neoplasm of colonacuteAugust 2024 3:51pmPancytopeniaacuteAugust 2024 3:51pmPrimary hypertensionacuteAugust 2024 3:51pmType 2 diabetes mellitus with hyperglycemiaacuteAugust 2024 3:51pm [facility] Work Phone: History general Narrative - Reported* Type Description Date Medical History hypertension Medical Historydrug induced bradycardiaMedical Historydyspnea on exertionMedical Historyobstructive sleep apneaMedical Historyhyperlipidemia type 2Medical Historybenign prostatic hyperplasiaMedical Historygeneralized anxiety disorder Medical HistorypancytopeniaMedical Historylate onset of alzheimers dementia Medical Historyarteriosclerotic heart diseaseMedical Historytype 2 diabetes Medical Historyadenocarcinoma in situ villous adenomaMedical Historygeneralized seizure disorderMedical Historyincontinence of feces with fecal urgencyMedical HistorythrombocytopeniaMedical Historymild cognitive impairmentSurgical History lithotripsy ESWL with stent insertionSurgical [id number] Historycolon [id number] Historyhemorrhoidectomy05/2019Surgical [id number] Historyumbilical hernia [id number] Historyleft inguinal hernia [id number] low anterior resectionSurgical Historycystoscopy, urethral dilation, right stent04/2017Surgical Historycystoscopy with right stent xcvszuv63/2017Hospitalization Historysee surgical history [employer] Other InstructionsNot on filedocumented in this encounter [facility]Not on filedocumented in this encounter [facility] SystemInstructionsNot on filedocumented in this encounter [facility] SystemInstructionsNot on filedocumented in this encounter [facility] No data available for this section [facility] Reason for referral (narrative)No reason for referral information availableMemorial Hospital Work Phone: Summary Purpose Family History No Family History [...] Amb Documentation tbh follow up - general weaknessReason for VisitSecond degree burn of back Alzheimer's dementia ASHD (arteriosclerotic heart disease) Elevated cholesterol Pancytopenia Primary hypertension Type 2 diabetes mellitus with hyperglycemia Chief Complaint wellness Reason for Visit Alzheimer's dementia ASHD (arteriosclerotic heart disease) Elevated cholesterol Encounter for subsequent annual wellness visit in Medicare patient Pancytopenia Primary hypertension Type 2 diabetes mellitus with hyperglycemia Chief Complaint wellness UnknownReason for VisitAlzheimer's dementia ASHD (arteriosclerotic heart disease) Elevated cholesterol [...] 2024 1 :31pm ASHD (arteriosclerotic heart disease) [facility] 2024 1:31pm Elevated cholesterol October 10, 2024 1 :31pm Pancytopenia October 10, 2024 1: 31pm Primary hypertension October 10, 2024 1 :31pm Type 2 diabetes mellitus with hyperglyce charm[place] October 10, 2024 1:31pm Chief Complaint Admit Date Amb Documentation May 25, 2025 8: 36am ER follow up May 25, 2025 3: 51pm Reason for Visit Admit Date Alzheimer's dementia May 25, 2025 3 :51pm ASHD (arteriosclerotic heart disease) Lauren alexsander 2024 3:51pm Elevated cholesterol May 25, 2025 3 :51pm Hx of malignant neoplasm of colon May 25, 2025 3:51pm Pancytopenia May 25, 2025 3: 51pm Primary hypertension May 25, 2025 3 :51pm Type 2 diabetes mellitus with hyperglyce [place] May 25, 2025 3:51pm Reason for Referral SpecialtyDiagnoses / ProceduresReferred By ContactReferred To Contact Diagnoses History of rectal cancer Alexandra Schmitt, LIGHT INDUSTRIAL SUPERVISOR-POULTRY INSEMINATOR [address] [place] [address] Referral IDStatusReasonStart DateExpiration DateVisits RequestedVisits [id number] Additional Source Comments (unrecognized sect ion and content) No Status Records FoundNo Status Records FoundNo Status Records FoundNo Status Records FoundNo Status Records FoundNo Status Records FoundNo Status Records Found INFORMATION SOURCE (unrecogn ized section and content) DATE CREATED AUTHOR 08/14/2018 [facility] DATE CREATED AUTHOR AUTHOR'S ORGANIZ ATION 09/01/2022 [facility] DATE CREATED AUTHOR AUTHOR'S ORGANIZ ATION 12/12/2022 [facility] DATE CREATED AUTHOR AUTHOR'S ORGANIZ ATION 12/13/2022 [facility] DATE CREATED AUTHOR AUTHOR'S ORGANIZ ATION 06/21/2024 [facility] DATE CREATED AUTHOR AUTHOR'S ORGANIZ ATION 07/16/2024 [facility] DATE CREATED AUTHOR AUTHOR'S ORGANIZ ATION 08/05/2024 [facility] EPIC Source Comments (unrecognize d section and content) In the event this informatio n is protected by the Federal Confidentiality of Alcohol and Drug Abuse Patient Records regulations: The Federal rules restrict any use of the information to criminally investigate or prosecute any alcohol or drug abuse patient.[facility], [facility]onIn the event this information is protected by the Federal Confidentiality of Alcohol and Drug Abuse Patient Records regulations: The Federal rules restrict any use of the information to criminally investigate or prosecute any alcohol or drug abuse patient.[facility] Reason for Visit (unrecogniz ed section and content) ReasonCommentsPancytopeniaFollow upReasonCommentsCare CoordinationLab Results ReasonCommentsAlzheimer's DiseaseReasonCommentsColon Cancer Screening5 year recall Care Teams (unrecognized sec tion and content) Team Status: Active Member Role Status Dates Juan A Welsh DO Primary Care Provider Active Team Status: Active Member Role Status Dates Juan A Welsh DO Primary Care Provider Active Start: August 04, 2024 SANDRA Beverly-Juan David ProviderActiveStart: August 04, 2024 Team Status: Inactive Member Role Status Dates Juan A Welsh DO Primary Care Provide r, Attending Provider Active Start: September 10, 2024 End: September 10, 2024 Team Status: Inactive Member Role Status Dates Juan A Welsh DO Primary Care Provide r, Attending Provider Active Start: October 10, 2024 End: October 10, 2024Team MemberRelationshipSpecialtyStart DateEnd Date Juan A Welsh DO PCP - GeneralInternal Medicine11/14/11Team MemberRelationshipSpecialtyStart Date End Date Juan A Welsh DO PCP - GeneralInternal Medicine11/14/11 Team Status: Inactive Member Role Status Dates Juan A Welsh DO Primary Care Provide r, Attending Provider Active Start: December 14, 2023 End: December 14, 2023 Team Status: Active Member Role Status Dates Juan A Welsh DO Primary Care Provider Active Start: February 14, 2024 German Carver ProviderActiveStart: February 14, 2024 Team Status: Active Member Role Status Dates Juan A Welsh DO Primary Care Provide r, Attending Provider Active Start: February 15, 2024 Team Status: Active Member Role Status Dates Juan A Welsh DO Primary Care Provider Active Start: February 18, 2024 Martha Arthur ProviderActiveStart: February 18, 2024 Team Status: Inactive Member Role Status Fred Welsh DO Primary Care Provide r, Attending Provider Active Start: February 26, 2024 End: February 26, 2024 Team Status: Inactive Member Role Status Dates Juan A Welsh DO Primary Care Provide r, Attending Provider Active Start: June 10, 2024 End: June 10, 2024 Team Status: Active Member Role Status Dates Juan A Welsh DO Primary Care Provide r, Attending Provider Active Start: June 27, 2024 Team Status: Active Member Role Status Dates Juan A Welsh DO Primary Care Provide r, Attending Provider Active Start: June 28, 2024 Team Status: Inactive Member Role Status Dates Juan A Welsh DO Primary Care Provider Active Start: July 09, 2024 End: July 09, 2024Micnilay Lozano , Attending ProviderActiveStart: July 09, 2024 End: July 09, 2024Team MemberRelationshipSpecialtyStart DateEnd Date Juan A Welsh MD [address] [place] [id number] PCP - GeneralInternal Medicine02/07/24Team MemberRelationshipSpecialtyStart Date End Date Juan A Welsh MD [address] [place] [id number] PCP - GeneralInternal Medicine02/07/24Team MemberRelationshipSpecialtyStart Date End Date Juan A Welsh DO [address] [place] [address] PCP - GeneralInternal Medicine05/23/19Team MemberRelationshipSpecialtyStart Date End Date Juan A Welsh DO [address] [place] [address] PCP - GeneralInternal Medicine05/23/19Team MemberRelationshipSpecialtyStart Date End Date Juan A Welsh DO [address] [place] [address] PCP - GeneralInternal Medicine05/23/19Team MemberRelationshipSpecialtyStart Date End Date Juan A Welsh DO [address] [place] [address] PCP - GeneralInternal Medicine05/23/19 Team Status: Active Member Role Status Dates Juan A Welsh DO Primary Care Provider Active Start: May 20, 2025 Bj Ortega DOAttending ProviderActiveStart: May 20, 2025 Team Status: Active Member Role Status Dates Juan A Welsh DO Primary Care Provider Active Start: May 25, 2025 Inez Lewis , CMAAttending ProviderActiveStart: May 25, 2025 Team Status: Inactive Member Role Status Dates Juan A Welsh , Primary Care Provider Active Start: May 25, 2025 End: May 25jamil Welsh , DOAttending ProviderActiveStart: May 25, 2025 End: May 25, 2025 Goals (unrecognized section and content) Goals may [...] BE BASED ON THE PRIMARY CLINICAL RECORDS. [employer] provides no warranty or guarantee of the accuracy or completeness of information in this document.
[2025-08-11 11:21] LABS: INR 1.03; Prothrombin Time 10.9 sec (9.0-11.6)
[2025-08-11 11:24] LABS: Hematocrit 29.8 % (42.0-54.0); Hemoglobin 10.2 g/dL (14.0-18.0); Mean Corpuscular HGB Conc 34.2 g/dL (29.9-35.2); Mean Corpuscular Hemoglobin 34.3 pg (25.9-34.0); Mean Corpuscular Volume 100.3 fL (80.0-94.0); Platelet Count 77 10^3/uL (150-450); Red Blood Count 2.97 10^6/uL (4.70-6.10); White Blood Count 3.9 10^3/uL (4.0-11.0)
[2025-08-11 11:32] LABS: Alanine Aminotransferase 43 U/L (16-63); Albumin Globulin Ratio 1.4; Albumin Level 4.0 g/dL (3.4-5.0); Alkaline Phosphatase 109 U/L (46-116); Anion Gap 12.0; Aspartate Amino Transferase 27 U/L (15-37); Blood Urea Nitrogen 30.0 mg/dL (7.0-18.0); Calcium 9.1 mg/dL (8.5-10.1); Carbon Dioxide 27.8 mmol/L (21.0-32.0); Chloride 107 mmol/L (98-107); Estimated GFR (African America >60 (>=60 mL/min/1.73m^2); Estimated GFR (Non-African Ame 55 (>=60 mL/min/1.73m^2); Globulin 2.9 g/dL; Glucose 146 mg/dL (74-106); Potassium 3.8 mmol/L (3.5-5.1); Sodium 143 mmol/L (136-145); Total Protein 6.9 g/dL (6.4-8.2)
--- NOTE | 2025-08-11 11:50 | CT_ITS ---
[address] [address] Patient Name: NA GOULD MRN: [id number] date: 1945 Sex: M Assigned Patient Location: ER Current Patient Location: ER Accession/Order Number: [id number] Exam Date: 08/11/2025 12:24 Report Date: 08/11/2025 13:25 At the request of: WALKER IQBAL DO Procedure: CT abdomen pelvis w con CT abdomen pelvis w con 08/11/2025 12:28 PM SIGNS AND SYMPTOMS: GI bleeding, blood clots in bowel movement, rectal pain, history of colon cancer TECHNIQUE: Multidetector ct axial images of the abdomen and pelvis were obtained with IV contrast. Multiplanar reformats were performed and reviewed to further define anatomy and possible pathology. CT was performed with one or more of the following dose reduction techniques: Automated exposure control, adjustment of the mA and/or kV according to patient size, or use of iterative reconstruction technique. COMPARISON: 05/20/2025 FINDINGS: Lower Chest: Atherosclerotic changes are noted in the coronary arteries and thoracic aorta. There is linear scarring in the right lower lobe. There is a 4 mm calcified granuloma in the right middle lobe. ABDOMEN: Liver: Within normal limits. Bile Ducts: Normal caliber. Gallbladder: Previously removed. Pancreas: Within normal limits. Spleen: Calcified granulomas are noted in the spleen. There is splenomegaly with the spleen measuring 18 cm in craniocaudal dimension. This is unchanged. Adrenals: Within normal limits. Kidneys: Multiple nonobstructing renal stones are noted measuring up to 1.7 cm in greatest dimension on the right and 3 mm in greatest dimension on the left. There is a 6 mm stone in the right renal pelvis with fat stranding along the right renal pelvis. Pelvis: Reproductive Organs: Calcifications are noted in the prostate gland. Ureters: Within normal limits. Bladder: Nonspecific bladder wall thickening is noted. Bowel: Similar wall thickening is noted in the rectum with fat stranding along the presacral fat. Surgical clips are noted in the presacral fat and perirectal region. Wall thickening is noted along the descending colon which is nonspecific but may represent colitis of infectious or inflammatory etiology. Additional uncomplicated colonic diverticula are present. There is evidence of prior appendectomy. Mesenteric Lymph Nodes: No enlarged mesenteric lymph nodes. Peritoneum: No ascites or free air, no fluid collection. Vessels: Atherosclerotic changes are noted in the abdominal aorta and its branches. Retroperitoneum: Within normal limits. Abdominal Wall: Within normal limits. Bones: Degenerative changes are noted in the thoracolumbar spine. Degenerative changes are noted in the hips and sacroiliac joints. CT/CT abdomen pelvis w con IMPRESSION: Wall thickening is noted along the descending colon which is nonspecific but may represent colitis of infectious or inflammatory etiology. Similar wall thickening is noted in the rectum with fat stranding along the presacral fat. Surgical clips are noted in the presacral fat and perirectal region. No bowel obstruction or obstructive uropathy. Multiple nonobstructing renal stones are noted measuring up to 1.7 cm in greatest dimension on the right and 3 mm in greatest dimension on the left. There is a 6 mm stone in the right renal pelvis with fat stranding along the right renal pelvis. Impression dictated by: Maulik Jeffries M.D. 08/11/2025 1:25 PM Dictation Location: [place] [address] Electronically authenticated by: [id number] Y Date: 08/11/2025 13:25
[2025-08-11 11:54] LABS: Basophils Abs Manual 0.00 10^3/uL (0.00-0.10); Basophils Percent Manual 0.0 % (0.2-2.0); Eosinophils Absolute Manual 0.03 10^3/uL (0.00-0.70); Eosinophils Percent Manual 1.0 % (0.9-7.0); Lymphocytes Absolute Manual 0.58 10^3/uL (1.20-3.80); Lymphocytes Percent Manual 15.0 % (20.5-60.0); Monocytes Absolute Manual 0.15 10^3/uL (0.30-0.80); Monocytes Percent Manual 4.0 % (1.7-12.0); Segmented Neut Absolute Manual 3.12 10^3/uL (1.4-6.5); Segmented Neutrophils % Manual 80.0 (43.0-75.0)
[2025-08-11] MEDS: AMLODIPINE BESYLATE 5 MG TABLET PO (12:53)
[2025-08-11] MEDS: LOSARTAN POTASSIUM 50 MG TABLET PO (12:54)
--- NOTE | 2025-08-11 13:51 | ED.GENADUL1 ---
HPI HPI - General Adult General Chief complaint: GI Bleed Stated complaint: RECTAL BLEEDING Time Seen by Provider: 08/11/25 10:52 Source: patient Mode of arrival: Wheelchair Limitations: no limitations History of Present Illness HPI narrative: The patient is a 80-year-old gentleman who presents to the emergency department for lower GI bleeding. While the patient is a very pleasant, cooperative, and informative he does have dementia and his of 57 years does help provide adequate history. The patient presents to the emergency department from home via personal car. This morning, the patient went to the restroom and had evidence of GI bleeding. stated that it was a dark-colored blood. She stated it was very difficult to clean him up and by the time she had tried to get him to the bed and dressed again he had soiled the linens. The patient does not feel dizzy or lightheaded. He does not feel like he is going to pass out. Patient is not on any blood thinners at this time. Patient's symptoms were not preceded by straining or having any diarrhea. Patient has not had any new medication or dosage changes. tells me that he does have a history of colon cancer. He was treated here at [facility] around 2005 and then in [place] around 2007. He has had surgery, chemotherapy, and radiation. He has not had anything since treatment had been completed. Patient is denying any pain at this time. stated that the patient is preoccupied with feeling like he has to go to the bathroom. She stated yesterday that he sat on the toilet for nearly 2 hours feeling like he had to go to the bathroom but did not have any Related Data Home Medications ?Medication ?Instructions ?Recorded ?Confirmed allopurinol 300 mg tablet 300 mg PO QDAY 02/14/24 08/11/25 amlodipine 5 mg tablet 5 mg PO QDAY 02/14/24 08/11/25 citalopram 20 mg tablet 20 mg PO QDAY 02/14/24 08/11/25 donepezil 10 mg tablet 10 mg PO BEDTIME 02/14/24 08/11/25 insulin aspar prot-insulin aspart See Rx Instructions subcut .COMPLEX 02/14/24 08/11/25 100 unit/mL (70-30) subcutaneous pen (Novolog Mix 70-30FlexPen U-100) isosorbide mononitrate 30 mg 30 mg PO QDAY 02/14/24 08/11/25 tablet,extended release 24 hr losartan 50 mg tablet 50 mg PO BID 02/14/24 08/11/25 memantine 28 mg capsule 28 mg PO Q24H 02/14/24 08/11/25 sprinkle,extended release 24hr oxcarbazepine 300 mg tablet 900 mg PO BID 02/14/24 08/11/25 simvastatin 20 mg tablet 20 mg PO QDAY 02/14/24 08/11/25 aspirin 81 mg capsule 81 mg PO DAILY 05/20/25 08/11/25 Allergies Allergy/AdvReac Type Severity Reaction Status Date / Time neomycin Allergy Rash Verified 08/11/25 10:46 Opioid HPI Opioid Management Most Recent Opioid Data: Last Pain Scale 6 Today, 11:01 Last ORT Total Score 0 02/15/24, 00:23 Last ORT Risk Category Low Risk 02/15/24, 00:23 Review of Systems ROS Narrative 10 Systems were reviewed, and unless noted in the HPI, all other systems are reviewed, unremarkable, or noncontributory. [facility] Medical History History of blood transfusion (2008) ?Z92.89 - Personal history of other medical treatment (ICD-10) Sleep apnea ?G47.30 - Sleep apnea, unspecified (ICD-10) Tremor ?R25.1 - Tremor, unspecified (ICD-10) CAD (coronary artery disease) ?I25.10 - Atherosclerotic heart disease of [place] coronary artery without angina pectoris (ICD-10) PE (pulmonary thromboembolism) ?I26.99 - Other pulmonary embolism without acute cor pulmonale (ICD-10) Syncope ?R55 - Syncope and collapse (ICD-10) Dementia ?F03.90 - Unspecified dementia, unspecified severity, without behavioral disturbance, psychotic disturbance, mood disturbance, and anxiety (ICD-10) Kidney stone ?N20.0 - Calculus of kidney (ICD-10) Anemia ?D64.9 - Anemia, unspecified (ICD-10) Acute hemorrhoid ?K64.9 - Unspecified hemorrhoids (ICD-10) Colon cancer ?C18.9 - Malignant neoplasm of colon, unspecified (ICD-10) Hypertension ?I10 - Essential (primary) hypertension (ICD-10) Diabetes ?E11.9 - Type 2 diabetes mellitus without complications (ICD-10) Surgical History H/O hemorrhoidectomy (2008) ?Z98.890 - Other specified postprocedural states (ICD-10) S/P cataract extraction and insertion of intraocular lens ?Z98.49 - Cataract extraction status, unspecified eye (ICD-10) ?Z96.1 - Presence of intraocular lens (ICD-10) S/P ureteral stent placement ?Z96.0 - Presence of urogenital implants (ICD-10) H/O colectomy (2006) ?Z90.49 - Acquired absence of other specified parts of digestive tract (ICD-10) H/O colonoscopy ?Z98.890 - Other specified postprocedural states (ICD-10) S/P CABG x 4 (2013) ?Z95.1 - Presence of aortocoronary bypass graft (ICD-10) History of colon surgery (2007) ?Z98.890 - Other specified postprocedural states (ICD-10) Family History Uncle Family history of CHF (congestive heart failure) Family history of myocardial infarction Other Family history of COPD (chronic obstructive pulmonary disease) Family history of cancer Social History Within the past year, how often did you have a drink containing alcohol: never Score interpretation: A score less than 4 is consistent with normal alcohol consumption. Smoking status: Former smoker Non-prescribed substance use: denies use Previous occupational history: retired Highest level of school completed/degree received: high school graduate Are you now , , , , never or living with a partner: In a typical week, how many times do you talk on the telephone with family, friends, or neighbors: twice per week How often do you get together with friends or relatives: twice per week Little interest or pleasure in doing things: not at all Feeling down, depressed, or hopeless: not at all Do you think of yourself as: straight/heterosexual Gender Identity: male Exam Narrative Exam Narrative: Prior to examining the patient, I have washed with hospital approved and provided Antiseptic Hand Mac Artist and have also applied gloves.? Prior to touching the patient, I asked for consent to examine the patient.? General: Alert and oriented, well nourished, mild distress. Eye: PERRL, EOMI, normal conjunctiva. HENT: Normocephalic, normal hearing, moist oral mucosa, no scleral icterus Lungs: Clear to auscultation and percussion, non-labored respiration. Heart: Normal rate, regular rhythm, no murmur, gallop or edema. Abdomen: Soft, non-tender, non-distended, normal bowel sounds, no masses. Derm was examined. He has a normal external rectum. No evidence of hemorrhoids. There is evidence of maroon blood at the orifice on tissue Musculoskeletal: Normal range of motion and strength, no tenderness or swelling. Skin: Skin is warm, dry and pink, no rashes or lesions. Neurologic: Awake, alert, and oriented X3, CN II-XII intact. Psychiatric: Cooperative, appropriate mood and affect.? Following the conclusion of the examination, I have washed my hands thoroughly after removing examination gloves. Constitutional Vital Signs, click to edit/add: Last Vital Signs Temp 97.6 F 08/11/25 10:46 Pulse 62 08/11/25 10:46 Resp 16 08/11/25 10:46 BP 203/68 H 08/11/25 18:00 Pulse Ox 100 08/11/25 12:13 O2 Del Method Room Air 08/11/25 10:46 Course Course Hospital Course: In summary the patient is a very pleasant 80-year-old mildly demented male who presents to the emergency department with his secondary to GI bleeding. The patient has not had any constipation or diarrhea. Patient has not had any bleeding. His last colonoscopy was about a year ago and it was found to be unremarkable. Reevaluation(s) Reevaluation #1: Dr. Cabral and I had a discussion. He wanted me to redraw the hemoglobin and to get a lactic acid. He stated if his hemoglobin is stable he be more apt to keep him in the hospital here as opposed to transferring him. Time: 13:51 Reevaluation #2: I went in the patient's room and talk to them and updated them about the laboratory results and the next steps. Currently the patient is waiting on a repeat hemoglobin, lactic acid, and Unasyn administration. All questions were answered to their satisfaction. Time: 13:53 Reevaluation #3: I had an opportunity to speak with Dr. Patricia. She is a layout artist. She and I reviewed the case. She does believe that the patient is safe to come over to [facility]. We did have an opportunity to talk about the patient's pancytopenia. His pancytopenia, specifically, the stated that they do not follow with a quality assurance/r&d lab technician that they were told that this was secondary to his chemotherapy and radiation that he had for his colon cancer. He has not had to have transfusions of any blood products. He does not take any supplements. In addition I questioned the patient about the kidney stone that was seen on the CAT scan. states he does have a history of kidney stones but they had been taking care of. I did inform her that a new one had developed. The patient however has not had any flank pain, nausea, vomiting, hematuria, or testicular pain. While important to note because there is some fat stranding appreciated the predominant concern at this time appears to be the GI bleeding, although urology consult may be necessary or urgent urology follow-up outpatient. Time: 16:10 Additional Reevaluation(s): 16:28 had an opportunity to speak with Dr. Rich Oconnor he is a hospitalist at [facility]. He did agree to accept the patient in transfer. Consultations Consultation #1: EMS arrived and the patient systolic blood pressure was 202. I gave the patient hydralazine 10 mg IV push. He is due for his evening dose of losartan 50 mg p.o. Time: 18:10 Vital Signs Vital signs: Vital Signs Temperature 97.6 F 08/11/25 10:46 Pulse Rate 62 08/11/25 10:46 Respiratory Rate 16 08/11/25 10:46 Blood Pressure 200/70 H 08/11/25 10:46 Pulse Oximetry 100 08/11/25 10:46 Oxygen Delivery Method Room Air 08/11/25 10:46 Temperature 97.6 F 08/11/25 10:46 Pulse Rate 62 08/11/25 10:46 Respiratory Rate 16 08/11/25 10:46 Blood Pressure 203/68 H 08/11/25 18:00 Pulse Oximetry 100 08/11/25 12:13 Oxygen Delivery Method Room Air 08/11/25 10:46 Medical Decision Making MDM Narrative Medical decision making narrative: In summary, the patient is an extremely pleasant 80-year-old gentleman presents the emergency with his secondary to lower GI bleeding. He was having maroon-colored bleeding in the absence of any constipation or diarrhea. states that he has markedly irregular bowel movements but there has not been anything unusual lately. No recent fever or chills. No sick contacts or recent travel. No recent antibiotic use. I do not believe that the patient has C. difficile colitis it does not smell the same and there is no gelatinous component. The patient does not have any evidence of external hemorrhoids. The patient has a profound amount of proctitis and therefore I did not do a digital rectal exam knowing that it would not change the outcome especially since if it was internal hemorrhoids the bleeding would be much more bright than appreciated. CT scan revealed colitis which may be infectious versus inflammatory process. To make certain that the patient is protected however we did give the patient Unasyn 1.5 g IV piggyback. He did tolerate it well. Patient never had any pain and did not necessitate any pain meds. The patient Does have a history of kidney stones and they were unaware that the patient has a very large kidney stone present. There are some inflammatory changes. With the patient's not having any flank pain. No suprapubic pain. No blood in his urine. The patient does have an elevated BUN and creatinine but I am more think this is attributed to the GI bleed as opposed to urinary symptoms. Patient has a history of pancytopenia per the . Patient is going to go to [facility] in the untoward event the patient would have decompensation. He is already dropped a gram of hemoglobin and hospitalist feel it is safe for her to have the patient had a comprehensive care facility. Differential Diagnosis Differential Diagnosis: Infectious colitis, radiation colitis, internal hemorrhoids, external hemor Medical Records Medical records reviewed: Yes I reviewed the patient's medical records Lab Data Lab results reviewed: Yes I reviewed the patient's lab results Lab results narrative: Patient does have evidence of pancytopenia and when the labs were repeated the patient did drop 1 g of hemoglobin in 3 hours. No change in the gentleman's vital signs. Labs: Lab Results 08/11/25 08/11/25 Range/Units 10:58 13:59 WBC 3.9 L (4.0-11.0) 10^3/uL RBC 2.97 L (4.70-6.10) 10^6/uL Hgb 10.2 L 9.2 L (14.0-18.0) g/dL Hct 29.8 L 26.7 L (42.0-54.0) % MCV 100.3 H (80.0-94.0) fL MCH 34.3 H (25.9-34.0) pg MCHC 34.2 (29.9-35.2) g/dL RDW 14.7 (11.0-15.0) % Plt Count 77 L (150-450) 10^3/uL MPV 10.6 (9.5-13.5) fL Seg Neuts % (Manual) 80.0 H (43.0-75.0) Lymphocytes % (Manual) 15.0 L (20.5-60.0) % Monocytes % (Manual) 4.0 (1.7-12.0) % Eosinophils % (Manual) 1.0 (0.9-7.0) % Basophils % (Manual) 0.0 L (0.2-2.0) % Neutrophils # (Manual) 3.12 (1.4-6.5) 10^3/uL Lymphocytes # (Manual) 0.58 L (1.20-3.80) 10^3/uL Monocytes # (Manual) 0.15 L (0.30-0.80) 10^3/uL Eosinophils # (Manual) 0.03 (0.00-0.70) 10^3/uL Basophils # (Manual) 0.00 (0.00-0.10) 10^3/uL PT 10.9 (9.0-11.6) sec INR 1.03 Sodium 143 (136-145) mmol/L Potassium 3.8 (3.5-5.1) mmol/L Chloride 107 (98-107) mmol/L Carbon Dioxide 27.8 (21.0-32.0) mmol/L Anion Gap 12.0 BUN 30.0 H (7.0-18.0) mg/dL Creatinine 1.26 (0.70-1.30) mg/dL Est GFR ( Amer) >60 (>=60 mL/min/1.73m^2) Est GFR (Non-Af Amer) 55 L (>=60 mL/min/1.73m^2) BUN/Creatinine Ratio 23.8 Glucose 146 H (74-106) mg/dL Lactate 1.0 (0.4-2.0) mmol/L Calcium 9.1 (8.5-10.1) mg/dL Total Bilirubin 0.6 (0.2-1.0) mg/dL AST 27 (15-37) U/L ALT 43 (16-63) U/L Alkaline Phosphatase 109 (46-116) U/L Total Protein 6.9 (6.4-8.2) g/dL Albumin 4.0 (3.4-5.0) g/dL Globulin 2.9 g/dL Albumin/Globulin Ratio 1.[address] scan - abdomen: Attestation: I have reviewed the pertinent imaging results. Radiologist's impression: ITS Impressions Abdomen/Pelvis CT 08/11/25 11:50 IMPRESSION: Wall thickening is noted along the descending colon which is nonspecific but may represent colitis of infectious or inflammatory etiology. Similar wall thickening is noted in the rectum with fat stranding along the presacral fat. Surgical clips are noted in the presacral fat and perirectal region. No bowel obstruction or obstructive uropathy. Multiple nonobstructing renal stones are noted measuring up to 1.7 cm in greatest dimension on the right and 3 mm in greatest dimension on the left. There is a 6 mm stone in the right renal pelvis with fat stranding along the right renal pelvis. Impression dictated by: Maulik Jeffries M.D. 08/11/2025 1:25 PM Dictation Location: [place] [address] Electronically authenticated by: [id number] Y Date: 08/11/2025 13:25 Critical Care Time Critical Care Time Critical Care Time: Yes Total Critical Care Time: 35 Attestation: This is needed further treatment and prevention of clinically significant life-threatening or disability. It required emergent evaluation because the patient was having an excessive amount of bleeding at home. The gentleman needed numerous repeat physical examinations. We had a conversation with other caregivers and secluding GI and to hospitalist. It required document in patient's medical record where they were in the emergency department. Discharge Plan Discharge Chief Complaint: GI Bleed Clinical Impression: Acute lower gastrointestinal bleeding, Acute blood loss anemia, Hypertension, Dementia Patient Disposition: [facility] Time of Disposition Decision: 18:15 Discharge Location: [facility] Condition: Fair Mode of Transportation: EMS
[2025-08-11 14:09] LABS: Hematocrit 26.7 % (42.0-54.0); Hemoglobin 9.2 g/dL (14.0-18.0)
[2025-08-11 14:12] LABS: Lactate/Lactic Acid 1.0 mmol/L (0.4-2.0)
[2025-08-11] MEDS: HYDRALAZINE HCL 20 MG/ML VIAL 10 MG IVP (18:00)
--- NOTE | 2025-08-11 18:16 | ED.GENADUL1 ---
HPI HPI - General Adult General Chief complaint: GI Bleed Stated complaint: RECTAL BLEEDING Time Seen by Provider: 08/11/25 10:52 Source: patient Mode of arrival: Wheelchair Limitations: no limitations History of Present Illness HPI narrative: The patient is a 80-year-old gentleman who presents to the emergency department for lower GI bleeding. While the patient is a very pleasant, cooperative, and informative he does have dementia and his of 57 years does help provide adequate history. The patient presents to the emergency department from home via personal car. This morning, the patient went to the restroom and had evidence of GI bleeding. stated that it was a dark-colored blood. She stated it was very difficult to clean him up and by the time she had tried to get him to the bed and dressed again he had soiled the linens. The patient does not feel dizzy or lightheaded. He does not feel like he is going to pass out. Patient is not on any blood thinners at this time. Patient's symptoms were not preceded by straining or having any diarrhea. Patient has not had any new medication or dosage changes. tells me that he does have a history of colon cancer. He was treated here at [facility] around 2005 and then in [place] around 2007. He has had surgery, chemotherapy, and radiation. He has not had anything since treatment had been completed. Patient is denying any pain at this time. stated that the patient is preoccupied with feeling like he has to go to the bathroom. She stated yesterday that he sat on the toilet for nearly 2 hours feeling like he had to go to the bathroom but did not have any Related Data Home Medications ?Medication ?Instructions ?Recorded ?Confirmed allopurinol 300 mg tablet 300 mg PO QDAY 02/14/24 08/11/25 amlodipine 5 mg tablet 5 mg PO QDAY 02/14/24 08/11/25 citalopram 20 mg tablet 20 mg PO QDAY 02/14/24 08/11/25 donepezil 10 mg tablet 10 mg PO BEDTIME 02/14/24 08/11/25 insulin aspar prot-insulin aspart See Rx Instructions subcut .COMPLEX 02/14/24 08/11/25 100 unit/mL (70-30) subcutaneous pen (Novolog Mix 70-30FlexPen U-100) isosorbide mononitrate 30 mg 30 mg PO QDAY 02/14/24 08/11/25 tablet,extended release 24 hr losartan 50 mg tablet 50 mg PO BID 02/14/24 08/11/25 memantine 28 mg capsule 28 mg PO Q24H 02/14/24 08/11/25 sprinkle,extended release 24hr oxcarbazepine 300 mg tablet 900 mg PO BID 02/14/24 08/11/25 simvastatin 20 mg tablet 20 mg PO QDAY 02/14/24 08/11/25 aspirin 81 mg capsule 81 mg PO DAILY 05/20/25 08/11/25 Allergies Allergy/AdvReac Type Severity Reaction Status Date / Time neomycin Allergy Rash Verified 08/11/25 10:46 Opioid HPI Opioid Management Most Recent Opioid Data: Last Pain Scale 6 Today, 11:01 Last ORT Total Score 0 02/15/24, 00:23 Last ORT Risk Category Low Risk 02/15/24, 00:23 [facility] Medical History History of blood transfusion (2008) ?Z92.89 - Personal history of other medical treatment (ICD-10) Sleep apnea ?G47.30 - Sleep apnea, unspecified (ICD-10) Tremor ?R25.1 - Tremor, unspecified (ICD-10) CAD (coronary artery disease) ?I25.10 - Atherosclerotic heart disease of [place] coronary artery without angina pectoris (ICD-10) PE (pulmonary thromboembolism) ?I26.99 - Other pulmonary embolism without acute cor pulmonale (ICD-10) Syncope ?R55 - Syncope and collapse (ICD-10) Dementia ?F03.90 - Unspecified dementia, unspecified severity, without behavioral disturbance, psychotic disturbance, mood disturbance, and anxiety (ICD-10) Kidney stone ?N20.0 - Calculus of kidney (ICD-10) Anemia ?D64.9 - Anemia, unspecified (ICD-10) Acute hemorrhoid ?K64.9 - Unspecified hemorrhoids (ICD-10) Colon cancer ?C18.9 - Malignant neoplasm of colon, unspecified (ICD-10) Hypertension ?I10 - Essential (primary) hypertension (ICD-10) Diabetes ?E11.9 - Type 2 diabetes mellitus without complications (ICD-10) Surgical History H/O hemorrhoidectomy (2008) ?Z98.890 - Other specified postprocedural states (ICD-10) S/P cataract extraction and insertion of intraocular lens ?Z98.49 - Cataract extraction status, unspecified eye (ICD-10) ?Z96.1 - Presence of intraocular lens (ICD-10) S/P ureteral stent placement ?Z96.0 - Presence of urogenital implants (ICD-10) H/O colectomy (2006) ?Z90.49 - Acquired absence of other specified parts of digestive tract (ICD-10) H/O colonoscopy ?Z98.890 - Other specified postprocedural states (ICD-10) S/P CABG x 4 (2013) ?Z95.1 - Presence of aortocoronary bypass graft (ICD-10) History of colon surgery (2007) ?Z98.890 - Other specified postprocedural states (ICD-10) Family History Uncle Family history of CHF (congestive heart failure) Family history of myocardial infarction Other Family history of COPD (chronic obstructive pulmonary disease) Family history of cancer Social History Within the past year, how often did you have a drink containing alcohol: never Score interpretation: A score less than 4 is consistent with normal alcohol consumption. Smoking status: Former smoker Non-prescribed substance use: denies use Previous occupational history: retired Highest level of school completed/degree received: high school graduate Are you now , , , , never or living with a partner: In a typical week, how many times do you talk on the telephone with family, friends, or neighbors: twice per week How often do you get together with friends or relatives: twice per week Little interest or pleasure in doing things: not at all Feeling down, depressed, or hopeless: not at all Do you think of yourself as: straight/heterosexual Gender Identity: male Exam Constitutional Vital Signs, click to edit/add: Last Vital Signs Temp 97.6 F 08/11/25 10:46 Pulse 62 08/11/25 10:46 Resp 16 11/04/25 10:46 BP 207/70 H 08/11/25 18:02 Pulse Ox 100 08/11/25 12:13 O2 Del Method Room Air 08/11/25 10:46 Course Course Hospital Course: In summary the patient is a very pleasant 80-year-old mildly demented male who presents to the emergency department with his secondary to GI bleeding. The patient has not had any constipation or diarrhea. Patient has not had any bleeding. His last colonoscopy was about a year ago and it was found to be unremarkable. Vital Signs Vital signs: Vital Signs Temperature 97.6 F 08/11/25 10:46 Pulse Rate 62 08/11/25 10:46 Respiratory Rate 16 08/11/25 10:46 Blood Pressure 200/70 H 08/11/25 10:46 Pulse Oximetry 100 08/11/25 10:46 Oxygen Delivery Method Room Air 08/11/25 10:46 Temperature 97.6 F 08/11/25 10:46 Pulse Rate 62 08/11/25 10:46 Respiratory Rate 16 08/11/25 10:46 Blood Pressure 207/70 H 08/11/25 18:02 Pulse Oximetry 100 08/11/25 12:13 Oxygen Delivery Method Room Air 08/11/25 10:46 Medical Decision Making Lab Data Labs: Lab Results 08/11/25 08/11/25 Range/Units 10:58 13:59 WBC 3.9 L (4.0-11.0) 10^3/uL RBC 2.97 L (4.70-6.10) 10^6/uL Hgb 10.2 L 9.2 L (14.0-18.0) g/dL Hct 29.8 L 26.7 L (42.0-54.0) % MCV 100.3 H (80.0-94.0) fL MCH 34.3 H (25.9-34.0) pg MCHC 34.2 (29.9-35.2) g/dL RDW 14.7 (11.0-15.0) % Plt Count 77 L (150-450) 10^3/uL MPV 10.6 (9.5-13.5) fL Seg Neuts % (Manual) 80.0 H (43.0-75.0) Lymphocytes % (Manual) 15.0 L (20.5-60.0) % Monocytes % (Manual) 4.0 (1.7-12.0) % Eosinophils % (Manual) 1.0 (0.9-7.0) % Basophils % (Manual) 0.0 L (0.2-2.0) % Neutrophils # (Manual) 3.12 (1.4-6.5) 10^3/uL Lymphocytes # (Manual) 0.58 L (1.20-3.80) 10^3/uL Monocytes # (Manual) 0.15 L (0.30-0.80) 10^3/uL Eosinophils # (Manual) 0.03 (0.00-0.70) 10^3/uL Basophils # (Manual) 0.00 (0.00-0.10) 10^3/uL PT 10.9 (9.0-11.6) sec INR 1.03 Sodium 143 (136-145) mmol/L Potassium 3.8 (3.5-5.1) mmol/L Chloride 107 (98-107) mmol/L Carbon Dioxide 27.8 (21.0-32.0) mmol/L Anion Gap 12.0 BUN 30.0 H (7.0-18.0) mg/dL Creatinine 1.26 (0.70-1.30) mg/dL Est GFR ( Amer) >60 (>=60 mL/min/1.73m^2) Est GFR (Non-Af Amer) 55 L (>=60 mL/min/1.73m^2) BUN/Creatinine Ratio 23.8 Glucose 146 H (74-106) mg/dL Lactate 1.0 (0.4-2.0) mmol/L Calcium 9.1 (8.5-10.1) mg/dL Total Bilirubin 0.6 (0.2-1.0) mg/dL AST 27 (15-37) U/L ALT 43 (16-63) U/L Alkaline Phosphatase 109 (46-116) U/L Total Protein 6.9 (6.4-8.2) g/dL Albumin 4.0 (3.4-5.0) g/dL Globulin 2.9 g/dL Albumin/Globulin Ratio 1.4 Discharge Plan Discharge Chief Complaint: GI Bleed Clinical Impression: Acute lower gastrointestinal bleeding, Acute blood loss anemia, Hypertension, Dementia Patient Disposition: [facility] Time of Disposition Decision: 18:15 Discharge Location: [facility] Condition: Fair Mode of Transportation: EMS
== END 2025-08-11 18:15 | disposition short-term general hospital (02) ==
PROVIDERS: Emergency Provider Emergency Medicine; PCP Internal Medicine
DX: K92.2 Gastrointestinal hemorrhage, unspecified (principal); D62 Acute posthemorrhagic anemia; I10 Essential (primary) hypertension; F03.90 Unspecified dementia, unspecified severity, without behavioral disturbance, psychotic disturbance, mood disturbance, and anxiety; Z85.038 Personal history of other malignant neoplasm of large intestine; Z92.21 Personal history of antineoplastic chemotherapy; Z92.3 Personal history of irradiation; Z87.891 Personal history of nicotine dependence
CPT/HCPCS: 36415; 74177; 80053; 83605; 85007; 85014; 85018; 85027; 85610; 96365; 96375; 99285; J0295; J0360; Q9967

== ENCOUNTER 2025-08-22 14:17 | Observation (INO) | payer MEDICARE, SELFPAY ==
--- OUTSIDE RECORDS SUMMARY | 2025-08-13 10:10 | XMS_ITS | Continuity of Care Document ---
Author Organization [facility] Address [address] [place] [address] Phone Care Team Providers Care Rechecker Name Role Phone Juan A Cox DO Primary Care Provider Bj Ortega DO Attending Provider Inez Sharpe CMA Attending Provider Unavaila ble Juan A Cox DO Attending Provider [phone] Zeynep Turner DO Attending Provide r Serg Ferris MD Admit Provider John Oconnor DO Other Provider [phone] Prudencio Qureshi MD Other Provider [phone] Michael Metcalf BASS FISHER Other Provider Liset Hassan MD Other Provider Inez Patricia DO Attending Provider Inez Patricia DO Other Provider [phone] Dany Lin BASS FISHER Other Provider [phone] [facility] Bharat LYON DO Attending Provider Care Teams Patient Care Team Team Status: Active Member Role/Relationship Status Dates Juan A Cox DO Primary Care Provider Active Visit Care Team Team Status: Active Member Role/Relationship Status Dates Juan A Cox DO Primary Care Provider Active Start: May 20, 2025 Bj Ortega , DOAttending ProviderActiveStart: May 20, 2025 Visit Care Team Team Status: Active Member Role/Relationship Status Dates Juan A Cox DO Primary Care Provider Active Start: May 25, 2025 Inez Sharpe CMAAttending ProviderActiveStart: May 25, 2025 Visit Care Team Team Status: Inactive Member Role/Relationship Status Dates Juan A Cox DO Primary Care Provider Active Start: May 25, 2025 End: May 25jamil Cox , DOAttending ProviderActiveStart: May 25, 2025 End: May 25, 2025 Visit Care Team Team Status: Active Member Role/Relationship Status Dates Juan A Cox DO Primary Care Provider Active Start: August 11, 2025 Zeynep Lozano , DOAttending ProviderActiveStart: August 11, 2025 Visit Care Team Team Status: Active Member Role/Relationship Status Dates Juan A Cox DO Primary Care Provider Active Start: August 11, 2025 Serg Ferris MDAdmit ProviderActiveStart: August 11, 2025 John Oconnor , DOOther ProviderActiveStart: August 11, 2025 Prudencio Qureshi MDOther ProviderActiveStart: August 11, 2025 Michael Metcalf , APRNOther ProviderActiveStart: August 11, 2025 Liset Hassan MDOther ProviderActiveStart: August 11, 2025 Inez L Ly , DOAttending ProviderActiveStart: August 11, 2025 Inez L Ly , DOOther ProviderActiveStart: August 11, 2025 Dany Lin , APRNOther ProviderActiveStart: August 11, 2025 Visit Care Team Team Status: Inactive Member Role/Relationship Status Dates Juan A Cox DO Primary Care Provider Active Start: August 11, 2025 End: August 11michael LYON , CHCAttending ProviderActiveStart: August 11, 2025 End: August 11, 2025 Patient Care Team Team Status: Active Member Role/Relationship Status Dates Juan A Cox DO Primary Care Provider Active Start: August 13, 2025 Inez Sharpe CMAAttending ProviderActiveStart: August 13, 2025 Chief Complaint and Reason for Visit Chief Complaint Admit Date Amb Documentation May 25, 2025 8: 36am ER follow up May 25, 2025 3: 51pm GI Bleed August 11, 2025 7 :11pm [facility] August 11, 2025 8 :11pm Amb Documentation August 13, 2025 1 :47pm Reason for Visit Admit Date Alzheimer's dementia May 25, 2025 3 :51pm ASHD (arteriosclerotic heart disease) Au [place] 2024 3:51pm Elevated cholesterol May 25, 2025 3 :51pm Hx of malignant neoplasm of colon May 25, 2025 3:51pm Intertriginous skin ulcer, limited to br eakdown of skin May 25, 2025 3:51pm Pancytopenia May 25, 2025 3: 51pm Perianal dermatitis May 25, 2025 3: 51pm Primary hypertension May 25, 2025 3 :51pm Type 2 diabetes mellitus with hyperglyce charmaine May 25, 2025 3:51pm Abnormal CT of the abdomen August 11, 2025 7:11pm Alzheimer's dementia August 11, 2025 7:11pm Bilateral kidney stones August 11 7:11pm Colitis August 11, 2025 7 :11pm GI bleed August 11, 2025 7 :11pm Hx of malignant neoplasm of colon Novemb er 2024 7:11pm Pancytopenia August 11, 2025 7 :11pm Primary hypertension August 11, 2025 7:11pm Rectal bleed August 11, 2025 7 :11pm Type 2 diabetes mellitus with hyperglyce charmaine August 11, 2025 7:11pm Reason for Referral Type Reason(s) Provider Provider Contact Information Maria Esther spicer Address Start Date [place] Phone: [phone] [facility] [address] office will call with your pathology results. Please call the office if you have any questions.[place] Phone: [phone] [facility], [address] [facility] [address] Allergies, Adverse Reactions, Alerts Allergen Type Severity Reaction Last Updated Verified Status neomycin Allergy Unknown Unknown Reaction May 082024 2:56pm Yes Active simvastatin Allergy Unknown Unknown Reaction May 25, 2025 2:56pm Yes Active Social History Smoking Status Status Start Date End Date Date of Observa tion Ex-smoker (finding) August 12, 2025 2:31pm Observation Status Observation Response Date of Response Legal Sex Male (finding) Sex Assigned At BirthMalely 1944 Social History Assessments Assessment Value Date Recorded SDOH Follow up August 13, 2025 12:06pmQuestionAnswerDate RecordedHas the SDOH screening changed since admission?NNovember 2024 12:06pm Problems Active Problems Problem Diagnosis/Recorded Date Onset Date Stat us Alzheimer's dementia February 24, 2024 11:32am Unknown Active Perianal dermatitis May 25, 2025 4:07pm Unknown Active Acute prostatitis February 26, 2024 1:50pm Unknown A ctive Encounter for subsequent [facility] visit in Medicare patient June 07, 2024 1:52pm Unknown Active penitentiary (current) use of insulin December 14, 2023 11: 15am Unknown Active Type 2 diabetes mellitus wit h hyperglycemia December 14, 2023 11:15am Unknown Active Hx of malignant neoplasm of colon December 14, 2023 11:1 5am Unknown Active GI bleed August 11, 2025 8:36pm Unknown Ac tive Elevated cholesterol December 14, 2023 11:15am Unknown Active Chest wall pain September 10, 2024 10:20am Unknown Active Colitis August 11, 2025 8:39pm Unknown Ac tive Pancytopenia December 14, 2023 11:15am Unknown Acti ve Primary hypertension December 14, 2023 11:15am Unknown Active Abnormal CT of the abdomen August 12, 2025 2:41pm U nknown Active Contusion, chest wall September 10, 2024 10:19am Unkno wn Active Rectal bleed August 12, 2025 2:41pm Unknown Ac tive Intertriginous skin ulcer, l imited to breakdown of skin May 25, 2025 4:08pm Unknown Active Bilateral kidney stones August 12, 2025 1:46am Unkn own Active ASHD (arteriosclerotic heart disease) December 14, 2023 11:15am Unknown Active Medications Medication Status Dose Units Route Directions Qty Days Refills S tart Date Stop Date End Date Reason(s) Instructions Adherence Cefuroxime Axetil 500 mg tablet Discontinued 500 MG PO Twice daily 10 5 0 February 28, 2024 11:00pm March 02, 2024 2:38pmCefuroxime Axetil 500 mg qowphfEsgttoxfqwuc570BVSNBnhah rwqri03057KovMarch 02, 2024 2:37pmMay 2023 12:18pmCefuroxime Axetil 500 mg ykfbpbMwhdshfzigbr956RICFNtcun nvgvr85284WmsMarch 06, 2024 12:18pmMay 2024 9:20amLosartan 50 mg tabletActive0.ROUTE.CTYCSBP6805Tqtvxuqp 8th, 2024 4:58pm TAKE 1 TABLET TWICE DAILYUnknownSimvastatin 20 mg tabletDiscontinued0.ROUTE .JFSOZBK492Caofkurg2023 7:37amNovember 2024 7:36pmTAKE 1 TABLET ONE TIME DAILY IN EVENINGAmlodipine 5 mg tabletDiscontinued0.ROUTE.JBXQQMT011 September 22, 2024 7:37amJuly 2024 12:26pmTAKE 1 TABLET ONE TIME DAILY Citalopram 20 mg tabletActive0.ROUTE.LOCOOMS333Zsn2024 8:29amTAKE 1 TABLET EVERY DAYUnknownAllopurinol 300 mg tabletActive0.ROUTE.CLKNPXH655Lon2024 8:29amTAKE 1 TABLET EVERY DAYUnknownInsulin Asp Prt-Insulin Aspart (Novolog Mix 70-30flexpen U-100) 100 unit/mL (70-30) insulin penDiscontinued0 .ROUTE.2024 8:29amNovember 2024 7:36pmINJECT 28 UNITS UNDER THE SKIN BEFORE BREAKFAST AND 12 UNITS BEFORE EVENING MEALPen Needle, Diabetic (Comfort Ez Pen [place]) 31 gauge x 5/16 needleDiscontinued0.Otnvy001 March 02, 2025 11:00pmMa2024 8:33amType 2 diabetes mellitus with hyperglycemia Type 2 diabetes mellitus with hyperglycemia penitentiary (current) use of insulinAs directedPen Needle, Diabetic (Droplet Pen Needle) 31 gauge x 5/16 needleActive0.ROUTE.VHQSNPF8739Rdu2024 8:33am Type 2 diabetes mellitus with hyperglycemia Type 2 diabetes mellitus with hyperglycemia long term care phlebotomist (current) use of insulinUSE TO INJECT INSULIN UNDER THE SKIN TWO TIMES DAILYMerochestertine 28 mg capsule,sprinkle,ER 12nyXaadvrdklmsx21YGPWZhhli99699Wenk 2024 6:43amJuly 2024 3:31pmAmlodipine 5 mg nlslpaTvxaqc3AUDSAjcyt oxxjr864202Zvid 2024 12:26pmUnknownMemantine 28 mg capsule,sprinkle,ER 24hr Sikacf82PVIDKcnwg64675Nwcb 2024 3:30pmUnknownSimvastatin 20 mg tablet Gpextk50XEPWHfovjQhecckuu 4th, 2025 12:00amTAKE 1 TABLET ONE TIME DAILY IN EVENINGUnknownInsulin Asp Prt-Insulin Aspart (Novolog Mix 70-30flexpen U-100) 100 unit/mL (70-30) insulin wvbIeijys78LVVRJKXSCA9h/Day before meals as needed for BG < 100 mg/dLNov2024 12:00amUnknownInsulin Asp Prt-Insulin Aspart (Novolog Mix 70-30flexpen U-100) 100 unit/mL (70-30) insulin bwhAjhezr72 EOCPPIUPDB4l/Day before meals as needed for BG >/= 100 mg/dLNov2024 12:00amUnknownInsulin Asp Prt-Insulin Aspart (Novolog Mix 70-30flexpen U-100) 100 unit/mL (70-30) insulin ybeTbedlr1KNPGZMDFXNTbfuv at bedtime as needed for BG < 100 mg/dLNov2024 12:00amUnknownInsulin Asp Prt-Insulin Aspart (Novolog Mix 70-30flexpen U-100) 100 unit/mL (70-30) insulin fhoUxyxyh50AAHJ SUBCUTDaily at bedtime as needed for BG 100 - 200 mg/dLNov2024 12:00amUnknownInsulin Asp Prt-Insulin Aspart (Novolog Mix 70-30flexpen U-100) 100 unit/mL (70-30) insulin ojyEdcdal46CYOGZJTJYJIwfwr at bedtime as needed for BG > 200 mg/dLNov2024 12:00amUnknownAmlodipine 5 mg tablet Mwzvezxanhcf2OKOVSogrv33619Fcvwbpob 2023 10:16amDeceer 2023 7:37am Isosorbide Mononitrate 30 mg tablet extended release 24 qoUbbkjw88TGOHIwcyz22270 September 10, 2024 10:17amUnknownAllopurinol 300 mg jdifnwSsuotjuswuyx903TQYA DailyUniversity Hospitals [facility] 2023 12:00amMay 2024 8:30amAmlodipine 5 mg tablet Yzyjggvfkvyd7GUYNHyxgtYkgvx 2023 12:00am[facility] 2023 10:17am Citalopram 20 mg fudllqWroysjztyfkd75CEJKRiltiNeeyc 2023 12:00amMay 2024 8:30amDonepezil 10 mg fbbjbeOhyufl21WCPCVjqtd at bedtimeUniversity Hospitals [facility] 2023 12:00amUnknownIsosorbide Mononitrate 30 mg tablet extended release 24 hr Ojastsadzgnn52VWWNRjtgkCckkf 2023 12:00amCo[facility] 2023 10:17amLosartan 50 mg rsgnjtBinoayjxwcsd79HMGBCutbf dailyUniversity Hospitals [facility] 2023 12:00amCo[facility] 2023 4:58pmMemantine 28 mg capsule,sprinkle,ER 48chFxtxcomwtzkm95HFWTIxsabShyun 2023 12:00amJune 2024 6:44amMetoprolol Tartrate 25 mg tablet Jzbwmpeujuti51UTBOKjiuk dailyUniversity Hospitals [facility] Center 2023 12:00amJuly 2024 1:18pm Insulin Asp Prt-Insulin Aspart (Novolog Mix 70-30flexpen U-100) 100 unit/mL (70- 30) insulin hnuZmaznxfheklt30OUOKWDIPGNRyxop morningUniversity Hospitals [facility] Center 2023 12:00amMay 2024 8:30amINJECT 28 UNITS UNDER THE SKIN BEFORE BREAKFAST AND 12 UNITS BEFORE EVENING MEALOxcarbazepine 300 mg ngjuaxGysvah120INDPFczdc dailyUniversity Hospitals [facility] 2023 12:00amUnknownSimvastatin 20 mg cxmjigJzlsaejicsaq61RREMIfptw eveningUniversity Hospitals [facility] 2023 12:00amDecemay[facility] 20[facility] 7:37amSilver Sulfadiazine (Silvadene) 1 % zlanmNshtumeidaao7ORWWRPPHSGBGAWrois kfafb16403Gugja 2023 12:00amMay 2024 9:20amapply a 1.5 mm thicknessDoxycycline Hyclate 100 mg capsule Xipptgiiyxir841DMYCGbdkl982Rwiro 2023 12:00amMay 2023 1:45pmMupirocin 2 % zhynmpwsVkkrhz5JYNGKESVNFZCHRgqae vdexj94586Vxgxsj 2024 11:00pmUnknown Immunizations Immunization Event Date Not Given Reason Dose Number Mandrel Cleaner Lot Number Reason(s) Given Vaccine Information Statement (VIS) Detail Administration Location COVID-19 mRNA-1273 (Moderna) November 09, 2020 COVID-19 mRNA-1273 (Moderna)December 07Tap, unspecifiedJuly 2001 Fluzone TIV High-Dose 65YR+September 10, 2024U8499DAFPG [facility] influenza, unspecified formulationSeptember 2015influenza, unspecified formulationNovember 2016influenza, unspecified formulationOctober , 2017influenza, unspecified formulationOctober , 2018influenza, unspecified formulationOctober , 2019influenza, unspecified formulationOctober 2020influenza, unspecified formulationOctober 2021influenza, unspecified formulationSeptember , neumococcal Conjugate Vaccine, 13 valentNovember 2014Pneumococcal Polysacc. Vaccine, 23 valentNovember 2012Tetanus, Diphtheria adult, 5 Lf pres free absSeptember 2011Tetanus, Diphtheria adult, 5 Lf pres free absSeptember 2012 Relevant Diagnostic Tests and/or Laboratory Data Laboratory Results Test Collection Date/Time Result Date/Time Result Interpretation Reference Range Result Comment Performing Site Anisocytosis May 20, 2025 11:03am May 20, 2025 1 1:03am 1+ HematocritAugust 2024 11:03am30.1 %Below low .0-54.0Anion Gap May 20, 2025 11:03amAugu2024 11:03am3.3Lactic Acid LevelAugust 11, 2025 10:58amNovember 2024 10:58am1.0 mmol/L0.4-2.0Absolute Basophils (Manual)August 11, 2025 10:58amNovember 2024 10:58am0.00 10 3/uL 0.00-0.10Anion GapAugust 11, 2025 10:58amNovember 2024 10:58am12.0 Prothromb Time International RatioNove2024 10:58amNovemb2024 10:58am1.03DESIRED INR:2.0-3.0 CONDITIONS NOT LISTED BELOW2.5-3.5 FOR PROSTHETIC HEART VALVE REPLACEMENT2.5-3.5 RECURRENT THROMBOSISHematocritAugust 11, 2025 1:59pmAugust 11, 2025 1:59pm26.7 %Below low .0-54.0Absolute Basophils (Manual)May 20, 2025 11:032024 11:03am0.00 10 3/uL0.00-0.10 HemoglobinAuunm [facility]2024 11:03am10.3 g/dLBelow low wgqgxi50.0-18.0 BUN/Creatinine RatioAuunm [facility]2024 11:032024 11:03am23.4 Basophils %August 11, 2025 10:58amNove2024 10:58am0.0 %Below low normal0.2-2.0Albumin/Globulin RatioNove2024 10:58amNovemb2024 10:58am1.4Prothrombin TimeAugust 11, 2025 10:58amNove2024 10:58am 10.9 sec9.0-11.6HemoglobinAugust 11, 2025 1:59pmAugust 11, 2025 1:59pm9.2 g/dLBelow low ohljev42.0-18.0Basophils %May 20, 2025 11:032024 11:03am0.0 %Below low normal0.2-2.0Mean Corpuscular HemoglobinAugust 2024 11:03am34.2 pgAbove high lzufcq95.9-34.0Blood Urea NitrogenAugust 2024 11:03amAugu2024 11:03am25.0 mg/dLAbove high normal7.0-18.0 Eosinophils # (Manual)August 11, 2025 10:58amNovember 2024 10:58am0.03 10 3/uL0.00-0.70Mean Corpuscular HemoglobinNovember 2024 10:58am34.3 pg Above high lkwswy25.9-34.0AlbuminNovember 2024 10:58amNovember 2024 10:58am4.0 g/dL3.4-5.0Eosinophils # (Manual)May 20, 2025 11:03amA2024 11:03am0.00 10 3/uL0.00-0.70Mean Corpuscular Hemoglobin ConcentAugust 2024 11:03am34.2 g/dL29.9-35.2Calcium LevelAugust 2024 11:03amA2024 11:03am9.0 mg/dL8.5-10.1Eosinophils %August 11, 2025 10:58am August 11, 2025 10:58am1.0 %0.9-7.0Mean Corpuscular Hemoglobin Concent August 11, 2025 10:58am34.2 g/dL29.9-35.2Alkaline PhosphataseNov2024 10:58amNovemb2024 10:01ti230 U/J19-390Unnmuovcufd %May 20, 2025 11:03amA2024 11:03am0.0 %Below low normal0.9-7.0Mean Corpuscular VolumeAugust 2024 11:66qa170.0 fLAbove high jjoolu75.0-94.0 Chloride LevelAugust 2024 11:03amA2024 11:18dw112 mmol/L98-107 Lymphocytes # (Manual)August 11, 2025 10:58amNovember 2024 10:58am0.58 10 3/uLBelow low normal1.20-3.80Mean Corpuscular VolumeNovember 2024 10:51bb355.3 fLAbove high msdrjo55.0-94.0Alanine Aminotransferase (ALT/SGPT) August 11, 2025 10:58amNovember 2024 10:58am43 U/Q03-73Ouzouqkftdq # (Manual)May 20, 2025 11:03amAugust 2024 11:03am0.54 10 3/uLBelow low normal1.20-3.80Mean Platelet VolumeAugust 2024 11:03am9.9 fL9.5-13.5Carbon Dioxide LevelAugust 2024 11:032024 11:03am32.2 mmol/LAbove high .0-32.0Lymphocytes %August 11, 2025 10:58amNovember 2024 10:58am15.0 %Below low cqupdp70.5-60.0Mean Platelet VolumeNov2024 10:58am10.6 fL9.5-13.5Aspartate Amino Transf (AST/SGOT)August 11, 2025 10:58amNovember 2024 10:58am27 U/N79-81Delkjzfuntq %May 20, 2025 11:032024 11:03am18.0 %Below low wsufek04.5-60.0Platelet Count May 20, 2025 11:03am76 10 3/uLBelow low hbptan026-518YbdcgrfmpcFrjkzh 13th, 2025 11:032024 11:03am1.07 mg/dL0.70-1.30Monocytes # (Manual) August 11, 2025 10:58amNovember 2024 10:58am0.15 10 3/uLBelow low normal 0.30-0.80Platelet CountNov2024 10:58am77 10 3/uLBelow low normal 150-450BUN/Creatinine RatioNovember 2024 10:58amNovember 2024 10:58am 23.8MacrocytosisAugust 2024 11:03amA2024 11:03am1+Red Blood CountAugust 2024 11:03am3.01 10 6/uLBelow low normal4.70-6.10Estimated GFR ()May 20, 2025 11:03amA2024 11:03am>60>=60 mL/min/1.73m 2Monocytes %August 11, 2025 10:58amNovember 2024 10:58am4.0 %1.7-12.0Red Blood CountNovember 2024 10:58am2.97 10 6/uLBelow low normal 4.70-6.10Blood Urea NitrogenNovember 2024 10:58amNovemb2024 10:58am 30.0 mg/dLAbove high normal7.0-18.0Monocytes # (Manual)May 20, 2025 11:03am May 20, 2025 11:03am0.09 10 3/uLBelow low normal0.30-0.80Red Cell Distribution WidthAugust 2024 11:03am14.6 %11.0-15.0Estimated GFR (Non- AmericanAugust 2024 11:032024 11:03am>60>=60 mL/min/1.73m 2Segmented Neutrophils # (Manual)August 11, 2025 10:58amNovember 2024 10:58am3.12 10 3/uL1.4-6.5Red Cell Distribution WidthNovember 2024 10:58am14.7 %11.0-15.0Calcium LevelNovember 2024 10:58amNovember 2024 10:58am9.1 mg/dL8.5-10.1Monocytes %May 20, 2025 11:032024 11:03am3.0 %1.7-12.0Corrected White Blood CountAugust 2024 11:03am3.0 10 3/uLBelow low normal4.0-11.0Glucose LevelAugust 2024 11:03amAugust 2024 11:49ry961 mg/dLAbove high oewldn23-265Evlvdjixt NeutrophilsNovember 2024 10:58amNovember 2024 10:58am80.0Above high qtdadr09.0-75.0 Corrected White Blood CountNovember 2024 10:58am3.9 10 3/uLBelow low normal 4.0-11.0Chloride LevelNovember 2024 10:58amNovember 2024 10:15ko046 mmol/M07-082Xdxvtvqco Neutrophils # (Manual)May 20, 2025 11:03amAugust 2024 11:03am2.37 10 3/uL1.4-6.5Potassium LevelAugust 2024 11:03am May 20, 2025 11:03am3.5 mmol/L3.5-5.1Carbon Dioxide LevelNovember 2024 10:58amNovember 2024 10:58am27.8 mmol/L21.0-32.0Segmented NeutrophilsAugust 2024 11:03amAugust 2024 11:03am79.0Above high fqebeq56.0-75.0Sodium LevelAugust 2024 11:03amAugust 2024 11:01rz226 mmol/L446-347 CreatinineNovember 2024 10:58amNovember 2024 10:58am1.26 mg/dL 0.70-1.30Estimated GFR ()August 11, 2025 10:58amNovember 2024 10:58am>60>=60 mL/min/1.73m 2Estimated GFR (Non- AmericanNovember 2024 10:58amNovember 2024 10:17lo98Vkhbl low normal>=60 mL/min/1.73m 2 GlobulinNovember 2024 10:58amNovember 2024 10:58am2.9 g/dLGlucose LevelNov2024 10:58amNovember 2024 10:50jx157 mg/dLAbove high -695Cvkybfljm LevelNov2024 10:58amNovember 2024 10:58am 3.8 mmol/L3.5-5.1Sodium LevelNov2024 10:58amNovember 2024 10:73wr270 mmol/D368-881Alsha BilirubinNov2024 10:58amNovember 2024 10:58am0.6 mg/dL0.2-1.0Total ProteinNov2024 10:58amNovember 2024 10:58am6.9 g/dL6.4-8.2HIV (1&2) Antibody RapidAugust 11, 2025 9:09pm August 11, 2025 10:24pmNonreactiveNonreOur Lady of [facility] [id number] [address] [place] [id number] B Surface AntibodyNov2024 9:09pmNov2024 3:08amNon reactive.Non Reactive: Not immune to HBV infection. Anti-HBs undetectable or less than 10 mIU/mL. Reactive: Evidence of HBV immunity. Anti- HBs levels greater than 10 mIU/mL.LabNortheast [facility] Network B Surface AntigenAugust 11, 2025 9:09pmAugust 13, 2025 3:08amNegativeNegative Performed at: [address] [id number] Director: Mateusz Bardales PhD, Phone: [phone] C Antibody (EIA)August 11, 2025 9:09pmNov2024 3:08amNon reactive Non ReactiveLabNortheast [facility] Health Network C InterpretationAugust 11, 2025 9:09pmAugust 13, 2025 3:08amComment.Not infected with HCV unless early or acute infection issuspected (which may be delayed in an immuno compromisedindividual), or other evidence exists to indicate HCVinfection. [facility] Vital Signs Vital Reading Result Reference Range Collection Date/Time Height 68 [in_i] May 25, 2025 3:99lkJzhsxn06.22 kgAugust 2024 3:01pmHeart Rate66 /min 60-100August 2024 3:01pmRespiratory rate12 /tdr51-42Tuqdcn 2024 3:01pmBP Snwzwrou867 mm[Hg]100-140August 2024 3:01pmBP Edcmcuoke82 mm[Hg] 60-100August 2024 3:01pmBMI (Body Mass Index)22.1 kg/d7Aspzdv 2024 3:51mmJutwdc45 [in_i]August 11, 2025 7:40voAgnwdb88.30 kgNovember 2024 4:36amBody Pqfdnvaigva90.8 [degF]97.6-99.0Nov2024 8:00pmHeart Rate61 /cfn20-356Unudgxmz 2024 11:27amRespiratory rate20 /lpj71-67Tqookvan 6th, 2025 11:27amOxygen saturation by Pulse hpitidas49 %95-100Nov2024 11:27amBP Rqkwzgho581 mm[Hg]100-140Nov2024 11:27amBP Iaxwnnbmx72 mm[Hg]60-100November 2024 11:27am Advance Directives Advance Directive Response Recorded Date/ Time Advance Directives No February 11, 2018 9:28am Insurance Providers Guarantor Brian Gould Address [address] [address]Lmzxjno Info.Home Phone: Coverage Status Update:2025 Payer Group Member ID Coverage Type Subscriber Relationship to Subscriber Effective Date Expiration Date Medicare [id number] L Weisz Id: [id number] [address] [address] Home Phone: Email: DECLINED 2017[facility] GoSpotCheck Claims Id: PLAN [id number] L Weisz Id: [id number] [address] [facility] [address] Home Phone: Email: [facility]ED [facility] [id number] L Weisz Id: [id number] [address] [place] [address] Home Phone: Email: DECLINED 2017Self Encounters Encounter Location(s) Arrival/Admit Date Discharge/Departure Date Discharge/Departure Disposition Provider(s) Non-patient / Non-visit -[facility] Professional [facility] A ugust 2024 12:03pm Virginia Sykes-patient / [facility] 2024 8:36amCatlenora Sharpe CMADeparted Physician/Provider Office Visit-[facility] 2024 3:51pmAupres[facility] 2024 4:50pmDischarged to home care or self care (routine discharge)Kalin Donahue-patient / Ouc-lilmd-[place] [facility] CoNoveer 2024 10:58amChristine Marco Turner-patient / Wvo-ebeho-[facility]dthmmj[facility] 2024 7:11pmCatherine Gianna Patricia , HANShelen [facility] ClinicalCorporate Health 250August 11, 2025 8:11pmNovbullhead community hospital 2024 8:12pmDischarged to home care or self care (routine discharge)Maria Esther Mcconnell-patient / Fcv-xgfqx[facility]Pro[facility] 2024 1:47pmCatlenora Sharpe CMA Recent Diagnosis Onset Date Admit Date Alzheimer's dementia Unknown May 3:51pm ASHD (arteriosclerotic heart disease) Unknown May 25, 2025 3:51pm Elevated cholesterol Unknown May 3:51pm Hx of malignant neoplasm of colon Unknown May 25, 2025 3:51pm Intertriginous skin ulcer, l imited to breakdown of skin Unknown May 25, 2025 3:51pm Pancytopenia Unknown May 25 3:51pm Perianal dermatitis Unknown May 25, 2025 3:51pm Primary hypertension Unknown May 3:51pm Type 2 diabetes mellitus with hyperglycemia Unkn May 25, 2025 3:51pm Abnormal CT of the abdomen Unknown 2024 7:11pm Alzheimer's dementia Unknown August 7:11pm Bilateral kidney stones Unknown August 11, 2025 7:11pm Colitis Unknown August 11, 7:11pm GI bleed Unknown August 11 7:11pm Hx of malignant neoplasm of colon Unknown August 11, 2025 7:11pm Pancytopenia Unknown August 11 7:11pm Primary hypertension Unknown August 7:11pm Rectal bleed Unknown August 11 7:11pm Type 2 diabetes mellitus with hyperglycemia Unkn August 11, 2025 7:11pm Assessments Diagnosis Onset Date Resolution Status Admit Date Alzheimer's dementia acuteAugust 2024 3:51pmASHD (arteriosclerotic heart disease)acuteAugust 2024 3:51pmElevated cholesterolacuteAugust 2024 3:51pmHx of malignant neoplasm of colonacuteAugust 2024 3:51pmIntertriginous skin ulcer, limited to breakdown of skinacuteAugust 2024 3:51pmPancytopenia acuteAugust 2024 3:51pmPerianal dermatitisacuteAugust 2024 3:51pm Primary hypertensionacuteAugust 2024 3:51pmType 2 diabetes mellitus with hyperglycemiaacuteAugust 2024 3:51pmAbnormal CT of the abdomenacute August 11, 2025 7:11pmAlzheimer's dementiaacuteNov2024 7:11pm Bilateral kidney stonesacuteNov2024 7:11pmColitisacuteNovember 2024 7:11pmGI bleedacuteNovember 2024 7:11pmHx of malignant neoplasm of colonacuteNov2024 7:11pmPancytopeniaacuteNov2024 7:11pm Primary hypertensionacuteNov2024 7:11pmRectal bleedacuteNovember 2024 7:11pmType 2 diabetes mellitus with hyperglycemiaacuteNovember 2024 7:11pm Plan of Treatment Author Juan A Cox [facility] 4:09pmRequires assistance w/ all ADL/IADL. He sleeps most the day and is unsteady on his feet, leading to frequent falls. He has poor judgement and is unsafe to be home alone. Referral to - assist in home safety - review resources to assist w/ in home tasks and care This patient is stable without activity related chest pain, dyspnea or lightheadedness. I instructed them to continue exercise at least 3x weekly and consume a low salt, low fat, high fiber diet. I instructed them to continue secondary prevention measures in reducing risks for recurrent events. Continue Imdur without interruption I have instructed this patient to follow a comprehensive diabetic treatment plan. I have also instructed them to check their feet daily for calluses and nonhealing ulcers. I have instructed them to have a yearly dilated eye examination. I have reviewed their treatment goals: SBP less than 130, LDL less than 100, FBS less than 140, A1C less than 7%. I have instructed them to maintain a home BS log and bring the results to each of their office visits for review. I have explained the importance of routine monitoring of their A1C, Microalbumin and Lipids. I have explained the benefits of well controlled diabetes in preventing micro and macrovascular complications. Instructed to have him drink boost or ensure between bkfst and supper instead of skipping Instructed on BS / Insulin dose FBS - < 100 give 14u - > 100 give 26u Evening BS - < 100 give 6u - 100-200 give 10 - > 200 give 12 I have instructed this patient to consume a healthy, low-fat, low-salt diet. I have also encouraged them to continue exercise with weight loss to achieve/maintain a BMI < 30. I have instructed this patient on the correct procedure for obtaining home BP measurements:? - rest for 5 minutes w/o talking. - positioned w/ feet on floor and arms supported. - average best 2/3 readings w/ goal < 135/85. - update office w/ home readings in 2 weeks. Continue Losartan, Amlodipine and Metoprolol without interruption Chronic condition, w/o recurrent infections or episodes of bleeding. Continue to monitor CBC closely Due to difficulty getting him to office visits, he hasn't been seen by Hematology lately I have instructed this patient on a low fat, high fiber diet and exercise. I have discussed the primary and secondary prevention benefits attributed to lowering LDL cholesterol. I have also discussed the medical treatment of elevated cholesterol, which is based on the 10 year ASCVD risk. Continue Simvastatin without interruption s/p hemicolectomy followed by radiation treatment. Results in fecal urgency w/ constipation. Spends hours on toilet straining. Instructed to use Miralax and titrate to avoid straining but avoiding diarrhea Wiping has resulted in skin irritation - instructed to wipe w/ medicated pads and use barrier cream - recommended setting up routine to sit on toilet every 4 hours, limited to 15 minutes after which spouse would wipe w/ medicated pads and apply barrier crm Keep clean and dry. Continue to use TUCKs medicated pads Begin Sitz baths as needed to keep clean and apply barrier crm Keep clean and dry. Apply Mupirocin after cleansing. Future Tests Future scheduled test information is unavailable Pending Tests Test Name Ordered Date Scheduled Date Stool Lactoferrin August 12, 2025 12:27am Miscellaneous Pathology TestAugust 13, 2025 8:40am Future Visits Future appointment information is unavailable Future Procedures Procedure Name Ordered Date Scheduled Date Initiate Home Health August 13, 2025 11:33am Pathology Request for Lab CorpAugust 13, 2025 11:20amNovember 2024 8:40amLeukoReduced RBCAugust 11, 2025 10:16pmAugust 12, 2025 3:49amAdmit Status OrderAugust 11, 2025 7:18pmAugust 11, 2025 7:18pmDischarge Order August 13, 2025 1:23pmAugust 13, 2025 1:23pmConsult to Gastroenterology August 11, 2025 7:23pmAugust 11, 2025 7:23pm Future Medications Future medication information is unavailable Patient Instructions Instruction Admit Date Know your Meds August 11, 2025 7 :11pm
[2025-08-22] VITALS (36 sets, daily range): BP systolic 165–194; BP diastolic 55–82; PULSE 55–75; TEMP 36–36.4; O2SAT 97–100; BMI 27.8; BMI 23.3
--- NOTE | 2025-08-22 14:20 | ECG_ITS ---
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 Measurements Intervals [place] Rate: 56 P: 60 LA: 228 QRS: 26 QRSD: 82 T: 58 QT: 440 QTc: 431 Interpretive Statements 1100 Sinus rhythm 2231 First degree AV block 9150 abnormal ECG Compared to ECG 02/14/2024 17:37:23 No significant changes Electronically Signed On 08-22-2025 18:17:57 EST by CHADD NOLASCO M.D.
--- NOTE | 2025-08-22 14:33 | ED.GENADUL1 ---
HPI HPI - General Adult General Chief complaint: Chest Pain Stated complaint: CHEST PAINS Time Seen by Provider: 08/22/25 14:33 Source: patient Mode of arrival: ambulance Limitations: no limitations Related Data Home Medications ?Medication ?Instructions ?Recorded ?Confirmed allopurinol 300 mg tablet 300 mg PO QDAY 02/14/24 08/11/25 amlodipine 5 mg tablet 5 mg PO QDAY 02/14/24 08/11/25 citalopram 20 mg tablet 20 mg PO QDAY 02/14/24 08/11/25 donepezil 10 mg tablet 10 mg PO BEDTIME 02/14/24 08/11/25 insulin aspar prot-insulin aspart See Rx Instructions subcut .COMPLEX 02/14/24 08/11/25 100 unit/mL (70-30) subcutaneous pen (Novolog Mix 70-30FlexPen U-100) isosorbide mononitrate 30 mg 30 mg PO QDAY 02/14/24 08/11/25 tablet,extended release 24 hr losartan 50 mg tablet 50 mg PO BID 02/14/24 08/11/25 memantine 28 mg capsule 28 mg PO Q24H 02/14/24 08/11/25 sprinkle,extended release 24hr oxcarbazepine 300 mg tablet 900 mg PO BID 02/14/24 08/11/25 simvastatin 20 mg tablet 20 mg PO QDAY 02/14/24 08/11/25 aspirin 81 mg capsule 81 mg PO DAILY 05/20/25 08/11/25 Allergies Allergy/AdvReac Type Severity Reaction Status Date / Time neomycin Allergy Rash Verified 08/11/25 10:46 Opioid HPI Opioid Management Most Recent Opioid Data: Last Pain Scale 5 Today, 14:18 Last ORT Total Score 0 02/15/24, 00:23 Last ORT Risk Category Low Risk 02/15/24, 00:23 [facility] Medical History History of blood transfusion (2008) ?Z92.89 - Personal history of other medical treatment (ICD-10) Sleep apnea ?G47.30 - Sleep apnea, unspecified (ICD-10) Tremor ?R25.1 - Tremor, unspecified (ICD-10) CAD (coronary artery disease) ?I25.10 - Atherosclerotic heart disease of [place] coronary artery without angina pectoris (ICD-10) PE (pulmonary thromboembolism) ?I26.99 - Other pulmonary embolism without acute cor pulmonale (ICD-10) Syncope ?R55 - Syncope and collapse (ICD-10) Dementia ?F03.90 - Unspecified dementia, unspecified severity, without behavioral disturbance, psychotic disturbance, mood disturbance, and anxiety (ICD-10) Kidney stone ?N20.0 - Calculus of kidney (ICD-10) Anemia ?D64.9 - Anemia, unspecified (ICD-10) Acute hemorrhoid ?K64.9 - Unspecified hemorrhoids (ICD-10) Colon cancer ?C18.9 - Malignant neoplasm of colon, unspecified (ICD-10) Hypertension ?I10 - Essential (primary) hypertension (ICD-10) Diabetes ?E11.9 - Type 2 diabetes mellitus without complications (ICD-10) Surgical History H/O hemorrhoidectomy (2008) ?Z98.890 - Other specified postprocedural states (ICD-10) S/P cataract extraction and insertion of intraocular lens ?Z98.49 - Cataract extraction status, unspecified eye (ICD-10) ?Z96.1 - Presence of intraocular lens (ICD-10) S/P ureteral stent placement ?Z96.0 - Presence of urogenital implants (ICD-10) H/O colectomy (2006) ?Z90.49 - Acquired absence of other specified parts of digestive tract (ICD-10) H/O colonoscopy ?Z98.890 - Other specified postprocedural states (ICD-10) S/P CABG x 4 (2013) ?Z95.1 - Presence of aortocoronary bypass graft (ICD-10) History of colon surgery (2007) ?Z98.890 - Other specified postprocedural states (ICD-10) Family History Uncle Family history of CHF (congestive heart failure) Family history of myocardial infarction Other Family history of COPD (chronic obstructive pulmonary disease) Family history of cancer Social History Within the past year, how often did you have a drink containing alcohol: never Score interpretation: A score less than 4 is consistent with normal alcohol consumption. Smoking status: Former smoker Non-prescribed substance use: denies use Previous occupational history: retired Highest level of school completed/degree received: high school graduate Are you now , , , , never or living with a partner: In a typical week, how many times do you talk on the telephone with family, friends, or neighbors: twice per week How often do you get together with friends or relatives: twice per week Little interest or pleasure in doing things: not at all Feeling down, depressed, or hopeless: not at all Do you think of yourself as: straight/heterosexual Gender Identity: male Exam Constitutional Vital Signs, click to edit/add: Last Vital Signs Pulse 56 L 08/22/25 14:18 Resp 18 08/22/25 14:18 BP 194/72 H 08/22/25 14:18 Pulse Ox 100 08/22/25 14:18 O2 Del Method Room Air 08/22/25 14:18 Course Vital Signs Vital signs: Vital Signs Pulse Rate 56 L 08/22/25 14:18 Respiratory Rate 18 08/22/25 14:18 Blood Pressure 194/72 H 08/22/25 14:18 Pulse Oximetry 100 08/22/25 14:18 Oxygen Delivery Method Room Air 08/22/25 14:18 Pulse Rate 56 L 08/22/25 14:18 Respiratory Rate 18 08/22/25 14:18 Blood Pressure 194/72 H 08/22/25 14:18 Pulse Oximetry 100 08/22/25 14:18 Oxygen Delivery Method Room Air 08/22/25 14:18 Medical Decision Making [facility] Narrative Medical decision making narrative: Patient seen and examined: Differential diagnosis includes but is not limited to: Relevant laboratory interpretation: Radiological studies: Reevaluation: Social barriers to healthcare: There are no food insecurities, there is no issue with transportation, there are no insurance barriers. Disposition: EKG interpretation. Normal sinus rhythm at 56 beats a minute. Normal axis deviation. No acute ST elevation, no acute ectopy. QTc of 431. MN interval of 228, first-degree AV block Diagnosis: Discharge Plan Discharge Chief Complaint: Chest Pain Prescriptions / Home Meds: No Action allopurinol 300 mg tablet 300 mg PO QDAY amlodipine 5 mg tablet 5 mg PO QDAY citalopram 20 mg tablet 20 mg PO QDAY donepezil 10 mg tablet 10 mg PO BEDTIME insulin asp prt-insulin aspart [Novolog Mix 70-30FlexPen U-100] 100 unit/mL (70-30) insulin pen See Rx Instructions SUBCUT .COMPLEX Rx Instructions: 26 u qam, 10 u with supper subcutaneously; isosorbide mononitrate 30 mg tablet extended release 24 hr 30 mg PO QDAY losartan 50 mg tablet 50 mg PO BID memantine 28 mg capsule,sprinkle,ER 24hr 28 mg PO Q24H simvastatin 20 mg tablet 20 mg PO QDAY oxcarbazepine 300 mg tablet 900 mg PO BID aspirin 81 mg capsule 81 mg PO DAILY Print Language: Qatari Referrals: Juan A Cox DO [Primary Care Provider, Internal Medicine] - 1 week
--- NOTE | 2025-08-22 14:36 | XR_ITS ---
[address] [address] Patient Name: NA GOULD MRN: [id number] date: 1945 Sex: M Assigned Patient Location: ER Current Patient Location: ED.MAIN Accession/Order Number: [id number] Exam Date: 08/22/2025 15:00 Report Date: 08/22/2025 16:00 At the request of: ANSLEY SOLORIO MD Procedure: XR chest 1V Plain film chest Single view HISTORY: Chest pain. Shortness of breath. COMPARISON: 02/14/2024 FINDINGS: SUPPORT DEVICES: None POSTSURGICAL CHANGES: CABG HEART: Within normal limits PULMONARY HAYLIE: Within normal limits MEDIASTINUM: Unremarkable LUNGS AND PLEURA: No acute lung process, pleural effusion or pneumothorax identified. BONY STRUCTURES: Intact ADDITIONAL FINDINGS None XR/XR chest 1V IMPRESSION: No acute process. Impression dictated by: Ansley Wills M.D. 08/22/2025 4:00 PM Dictation Location: [facility] Electronically authenticated by: [id number] Date: 08/22/2025 16:00
[2025-08-22 15:11] LABS: Hematocrit 27.1 % (42.0-54.0); Hemoglobin 9.7 g/dL (14.0-18.0); Mean Corpuscular HGB Conc 35.8 g/dL (29.9-35.2); Mean Corpuscular Hemoglobin 35.0 pg (25.9-34.0); Mean Corpuscular Volume 97.8 fL (80.0-94.0); Platelet Count 91 10^3/uL (150-450); Red Blood Count 2.77 10^6/uL (4.70-6.10); White Blood Count 3.5 10^3/uL (4.0-11.0)
--- OUTSIDE RECORDS SUMMARY | 2025-08-22 15:11 | XMS_ITS | CCD ---
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 object) 12-80-2460Hgzupboxgxtl (1 source)Long-term current use of -24-4407Zdtomhn tract infections (1 source)Urinary tract infection, site not specified; Translations: [UTI SITE NOT SPECIFIED]Onset: 69-70-6840Fezgkehr Results Test NameValueInterpretationReference RangeFacilityBasic Metabolic Panelon 85-15-6538Hpted gap [Moles/Vol]13.1 mmol/LNormal6.0-15.0The [facility] Physician GroupComment on above:Performed By: #### CRP #### [facility] [address] [place] [address] USACalcium [Mass/Vol]8.7 mg/dLNormal8.6-10.3The [facility] Physician GroupComment on above:Performed By: #### CRP #### [facility] [address] [place] [address] USAChloride [Moles/Vol]110 mmol/LXvxj99-936Ryb [facility] Physician GroupComment on above:Performed By: #### CRP #### [facility] [address] [place] [address] USACO2 [Moles/Vol]22.4 mmol/GHlwpkr31.0-31.0The [facility] Physician GroupComment on above:Performed By: #### CRP #### [place] [address] USACreatinine [Mass/Vol]1.28 mg/dLNormal0.70-1.30The [facility] Physician GroupComment on above:Performed By: #### CRP #### [facility] [address] [place] [address] USACreatinine Clr Calc Xbiyekko09.21NormalThe [facility] Physician GroupComment on above:Performed By: #### CRP #### [facility] [address] [place] [address] USAGFR/1.73 sq M.predicted MDRD (S/P/Bld) [Vol rate/Area] 56.931 mL/min/{1.73_m2}NormalThe [facility] Physician GroupComment on above: Performed By: #### CRP #### [place] [address] USAGlucose [Mass/Vol]116 mg/dFVsmu78-954Xzo [facility] Physician GroupComment on above:Result Comment: Random Glucose Reference Range is dependent on time and content of last meal. Glucose of more than 200 mg/dL in a nonstressed, ambulatory subject supports the diagnosis of Diabetes Mellitus. ADA recommended reference rangePerformed By: #### CRP #### [facility] [address] [place] [address] USAPotassium [Moles/Vol]3.5 mmol/LNormal3.5-5.1The [facility] Physician GroupComment on above:Performed By: #### CRP #### [facility] [address] [place] [address] USASodium [Moles/Vol]142 mmol/YDnbbgg996-752Old [facility] Physician GroupComment on above:Performed By: #### CRP #### [place] [address] USAUrea nitrogen [Mass/Vol]23 mg/dLNormal7-e [facility] Physician GroupComment on above:Performed By: #### CRP #### [place] [address] USAGlucose Poct Glucometerson 87-62-5800Cxtxajs [Mass/Vol]141 mg/dLNoSentara Albem[facility] Physician [facility] CenterComment on above:Result Comment: Random Glucose Reference Range is dependent on time and content of last meal. Glucose of more than 200 mg/dL in a nonstressed, ambulatory subject supports the diagnosis of Diabetes Mellitus. PERFORMED BY: [place] [address] PATHOLOGIST AUDIO/VISUAL MANAGER GALINA PINEDA M.D.Performed By: #### GLULS #### Point of Care testing ,Glucose [Mass/Vol]131 mg/dLNoSentara Albemarle Medical Center Physician [facility] CenterComment on above: Result Comment: Random Glucose Reference Range is dependent on time and content of last meal. Glucose of more than 200 mg/dL in a nonstressed, ambulatory subject supports the diagnosis of Diabetes Mellitus. PERFORMED BY: [place] [address] PATHOLOGIST AUDIO/VISUAL MANAGER GALINA PINEDA M.D.Performed By: #### GLULS #### Point of Care testing ,Hemogram CBC Without Diffon 23-09-6942Cargjcrtepr distribution width (RBC) [Ratio]15.2 %High12.0-14.8The [facility] Physician GroupComment on above: Performed By: #### GLULS #### Point of Care testing ,Hematocrit (Bld) [Volume fraction]25.7 %Low38.8-50.0The [facility] Physician GroupComment on above:Performed By: #### GLULS #### Point of Care testing ,Hemoglobin (Bld) [Mass/Vol]9.2 g/dLLow13.0-17.0The [facility] Physician Group Comment on above:Performed By: #### GLULS #### Point of Care testing ,MCH (RBC) [Entitic mass]34.7 lhFmszlb05.5-35.2The [facility] Physician Group Comment on above:Performed By: #### GLULS #### Point of Care testing ,MCV (RBC) [Entitic vol]97.4 iSXlgacw67.5-101The [facility] Physician Group Comment on above:Performed By: #### GLULS #### Point of Care testing ,Mean Corpuscular HGB Conc35.6 g/kDBrqkzh82.5-35.6The [facility] Physician Group Comment on above:Performed By: #### GLULS #### Point of Care testing ,Platelet mean volume (Bld) [Entitic vol]8.4 fLNormal6.6-10.1The [facility] Physician GroupComment on above:Result Comment: PERFORMED BY: [place] [address] [place] [address] PATHOLOGIST AUDIO/VISUAL MANAGER GALINA PINEDA M.D.Performed By: #### GLULS #### Point of Care testing ,Platelets (Bld) [#/Vol]75 10*3/oFUud925-162Hrp [facility] Physician GroupComment on above:Performed By: #### GLULS #### Point of Care testing ,RBC (Bld) [#/Vol]2.64 10*6/uLLow3.90-5.60The [facility] Physician GroupComment on above:Performed By: #### GLULS #### Point of Care testing ,White Blood Count3.0 [CFU]/mLLow4.1-10.5The [facility] Physician GroupComment on above:Performed By: #### GLULS #### Point of Care testing ,Magnesiumon 76-94-8392Jxlqnarzh [Mass/Vol]1.7 mg/dLLow1.9-2.7The [facility] Physician GroupComment on above:Result Comment: PERFORMED BY: [place] [address] PATHOLOGIST AUDIO/VISUAL MANAGER GALINA PINEDA M.D.Performed By: #### CRP #### [place] [address] USAPathology Request for Lab Corpon 36-41-4952Mtmaieafy Request for Lab CorpNoSentara [facility]em[facility] Physician GroupComment on above:Result Comment: See report. Scanned copy available in EMR. PERFORMED BY: [place] [address] PATHOLOGIST AUDIO/VISUAL MANAGER GALINA PINEDA M.D.Performed By: #### GLULS #### Point of Care testing ,ABO/Rh Retypeon 04-47-4085WDV/RH Recheck ResultPositiveNoUniversity Hospitals St. John Medical CenterComment on above:Result Comment: PERFORMED BY: [place] [address] PATHOLOGIST AUDIO/VISUAL MANAGER GALINA PINEDA M.D.Basic Metabolic Panelon 76-73-8582Qxqzm gap [Moles/Vol]9.6 mmol/LNormal6.0-15.0The [facility] Physician GroupComment on above:Performed By: #### CBC, MG, BMP #### [facility] [address] [place] [address] USACalcium [Mass/Vol]8.6 mg/dLNormal8.6-10.3The [facility] Physician GroupComment on above:Performed By: #### CBC, MG, BMP #### [facility] [address] [place] [address] USAChloride [Moles/Vol]108 mmol/NLvjk62-688Bwr [facility] Physician GroupComment on above:Performed By: #### CBC, MG, BMP #### [place] [address] USACO2 [Moles/Vol]26.9 mmol/SYkczqd27.0-31.0The [facility] Physician GroupComment on above:Performed By: #### CBC, MG, BMP #### [place] [address] USACreatinine [Mass/Vol]1.14 mg/dLNormal0.70-1.30The [facility] Physician GroupComment on above:Performed By: #### CBC, MG, BMP #### [place] [address] USACreatinine Clr Calc Okxlwnyw10.24NormalThe [facility] Physician GroupComment on above:Performed By: #### CBC, MG, BMP #### [place] [address] USAGFR/1.73 sq M.predicted MDRD (S/P/Bld) [Vol rate/Area] mL/min/{1.73_m2}NormalThe [facility] Physician GroupComment on above:Performed By: #### CBC, MG, BMP #### [place] [address] USAGlucose [Mass/Vol]138 mg/nKJdnb15-099Plc [facility] Physician GroupComment on above:Result Comment: Random Glucose Reference Range is dependent on time and content of last meal. Glucose of more than 200 mg/dL in a nonstressed, ambulatory subject supports the diagnosis of Diabetes Mellitus. ADA recommended reference rangePerformed By: #### CBC, MG, BMP #### [place] [address] USAPotassium [Moles/Vol]3.5 mmol/LNormal3.5-5.1The [facility] Physician GroupComment on above:Performed By: #### CBC, MG, BMP #### [place] [address] USASodium [Moles/Vol]141 mmol/MBaesac170-213Gnz [facility] Physician GroupComment on above:Performed By: #### CBC, MG, BMP #### [place] [address] USAUrea nitrogen [Mass/Vol]23 mg/dLNormal7-25The [facility] Physician GroupComment on above:Performed By: #### CBC, MG, BMP #### [place] [address] USAComplete Blood Count Auto Diffon 52-22-9648Xnijnunog (Bld) [#/Vol]0.0 10*3/uLNormal0.0-0.2The [facility] Physician GroupComment on above: Result Comment: PERFORMED BY: [place] [address] PATHOLOGIST AUDIO/VISUAL MANAGER GALINA PINEDA M.D.Performed By: #### CBC, MG, BMP #### [place] [address] USABasophils/100 WBC (Bld)0.2 %Normal.The [facility] Physician GroupComment on above:Performed By: #### CBC, MG, BMP #### [place] [address] USAEosinophils (Bld) [#/Vol]0.1 10*3/uLNormal0.0-0.45The [facility] Physician GroupComment on above:Performed By: #### CBC, MG, BMP #### [place] [address] USAEosinophils/100 WBC (Bld)1.8 %Normal.The [facility] Physician GroupComment on above:Performed By: #### CBC, MG, BMP #### [place] [address] USAErythrocyte distribution width (RBC) [Ratio]14.6 %Normal 12.0-14.8The [facility] Physician GroupComment on above:Performed By: #### CBC, MG, BMP #### [place] [id number] USAHematocrit (Bld) [Volume fraction]24.9 %Low38.8-50.0The [facility] Physician GroupComment on above:Performed By: #### CBC, MG, BMP #### [place] [address] USAHemoglobin (Bld) [Mass/Vol]9.0 g/dLLow13.0-17.0The [facility] Physician GroupComment on above:Performed By: #### CBC, MG, BMP #### [place] [address] USALymphocytes (Bld) [#/Vol]0.4 10*3/uLLow1.00-4.8The [facility] Physician GroupComment on above:Performed By: #### CBC, MG, BMP #### [place] [address] USALymphocytes/100 WBC (Bld)13.2 %Normal.The [facility] Physician GroupComment on above:Performed By: #### CBC, MG, BMP #### [place] [address] USAMCH (RBC) [Entitic mass]34.6 baFqrbrk31.5-35.2The [facility] Physician GroupComment on above:Performed By: #### CBC, MG, BMP #### [place] [address] USAMCV (RBC) [Entitic vol]95.6 oMYmpydc38.5-101The [facility] Physician GroupComment on above:Performed By: #### CBC, MG, BMP #### [place] [address] USAMean Corpuscular HGB Conc36.2 g/eKPpav83.5-35.6The [facility] Physician GroupComment on above:Performed By: #### CBC, MG, BMP #### [place] [address] USAMonocytes (Bld) [#/Vol]0.2 10*3/uLNormal0.0-0.8The [facility] Physician GroupComment on above:Performed By: #### CBC, MG, BMP #### [facility] [address] [place] [address] USAMonocytes/100 WBC (Bld)7.0 %Normal.The [facility] Physician GroupComment on above:Performed By: #### CBC, MG, BMP #### [facility] [address] [place] [address] USANeutrophils (Bld) [#/Vol]2.4 10*3/uLNormal1.8-7.7The [facility] Physician GroupComment on above:Performed By: #### CBC, MG, BMP #### [facility] [address] [place] [address] USANeutrophils/100 WBC (Bld)77.8 %Normal.The [facility] Physician GroupComment on above:Performed By: #### CBC, MG, BMP #### [facility] [address] [place] [address] USANRBC%0.1 /100{WBC}Normal0-0.5The [facility] Physician Group Comment on above:Performed By: #### CBC, MG, BMP #### [facility] [address] [place] [address] USAPlatelet mean volume (Bld) [Entitic vol]8.0 fLNormal 6.6-10.1The [facility] Physician GroupComment on above:Performed By: #### CBC, MG, BMP #### [facility] [address] [place] [address] USAPlatelets (Bld) [#/Vol]79 10*3/hWGcp009-710Boh [facility] Physician GroupComment on above:Performed By: #### CBC, MG, BMP #### [facility] [address] [place] [address] USARBC (Bld) [#/Vol]2.60 10*6/uLLow3.90-5.60The [facility] Physician GroupComment on above:Performed By: #### CBC, MG, BMP #### [facility] [address] [place] [address] USAWBC (Bld) [#/Vol]3.1 10*3/uLLow4.1-10.5The [facility] Physician GroupComment on above:Performed By: #### CBC, MG, BMP #### [facility] [address] [place] [address] USAWhite Blood Count3.1 [CFU]/mLLow4.1-10.5The [facility] Physician GroupComment on above:Performed By: #### CBC, MG, BMP #### [facility] [address] [place] [address] USAGlucose Poct Glucometerson 30-81-9785Quvvkzj8Meh3: Cleaned MeterNoUniversity Hospitals St. John Medical CenterComment on above:Result Comment: PERFORMED BY: [place] [address] PATHOLOGIST AUDIO/VISUAL MANAGER GALINA PINEDA M.D.Performed By: #### GLULS #### Point of Care testing ,Glucose [Mass/Vol]137 mg/dLNoSentara [facility] Physician GroupComment on above: Result Comment: Random Glucose Reference Range is dependent on time and content of last meal. Glucose of more than 200 mg/dL in a nonstressed, ambulatory subject supports the diagnosis of Diabetes Mellitus.Performed By: #### GLULS #### Point of Care testing ,Glucose [Mass/Vol]119 mg/dLNoSentara [facility]em[facility]le Medical Center Physician GroupComment on above: Result Comment: Random Glucose Reference Range is dependent on time and content of last meal. Glucose of more than 200 mg/dL in a nonstressed, ambulatory subject supports the diagnosis of Diabetes Mellitus. PERFORMED BY: [place] [address] PATHOLOGIST AUDIO/VISUAL MANAGER GALINA PINEDA M.D.Performed By: #### GLULS #### Point of Care testing ,Glucose [Mass/Vol]155 mg/dLHCA Florida South Shore Hospital Physician GroupComment on above: Result Comment: Random Glucose Reference Range is dependent on time and content of last meal. Glucose of more than 200 mg/dL in a nonstressed, ambulatory subject supports the diagnosis of Diabetes Mellitus. PERFORMED BY: [address] [place] [address] PATHOLOGIST AUDIO/VISUAL MANAGER GALINA PINEDA M.D.Performed By: #### GLULS #### Point of Care testing ,Glucose [Mass/Vol]134 mg/dLNoSentara Albemarle Medical Center Physician GroupComment on above: Result Comment: Random Glucose Reference Range is dependent on time and content of last meal. Glucose of more than 200 mg/dL in a nonstressed, ambulatory subject supports the diagnosis of Diabetes Mellitus. PERFORMED BY: [place] [address] PATHOLOGIST AUDIO/VISUAL MANAGER GALINA PINEDA M.D.Performed By: #### GLULS #### Point of Care testing ,Lactoferrin, Stool WBCon 28-44-8486Hnegcblaqzq, Stool WBCLACTOFERRIN Negative for Fecal Lactoferrin Immune suppression may cause reduced WBC counts, leading to a false negative result. Reference range = Negative PERFORMED BY: [place] [address] PATHOLOGIST AUDIO/VISUAL MANAGER GALINA PINEDA M.D.NormalThe [facility] GroupComment on above: Performed By: #### GLULS #### Point of Care testing ,LeukoReduced RBCon 94-93-6677EfllsSecyqmz RBCREADYNormMemorial Hospital Pembroke Physician [facility] CenterMagnesiumon 90-03-2794Iwykkanog [Mass/Vol]1.7 mg/dLLow1.9-2.7The [facility] Physician [facility] CenterComment on above:Result Comment: PERFORMED BY: [place] [id number] PATHOLOGIST AUDIO/VISUAL MANAGER GALINA PINEDA M.D.Performed By: #### CBC, MG, BMP #### [facility] [address] [place] [address] USAStool Bacterial Panelon 58-53-7927PlatkvreqlwwfOfbmxwna NormalNegativeAdventhealth Orlando Physician GroupComment on above:Result Comment: Campylobacter test includes C. jejuni and C. coli.Performed By: #### ENT BACT PANEL #### [place] [address] USASalmonella SpeciesNegativeNormalNegativeAdventhealth Orlando Physician GroupComment on above:Result Comment: Testing performed by RT-PCR PERFORMED BY: [place] [address] PATHOLOGIST AUDIO/VISUAL MANAGER GALINA PINEDA M.D.Performed By: #### ENT BACT PANEL #### [place] [address] USAShiga Toxin (E coli O157+oth)NegativeNormalNegativeAdventhealth Orlando Physician GroupComment on above:Performed By: #### ENT BACT PANEL #### [place] [address] USAShigella SpeciesNegativeNormalNegativeThe [facility] Physician GroupComment on above:Result Comment: Shigella sp. test includes Shigella species and Enteroinvasive E. coli (EIEC).Performed By: #### ENT BACT PANEL #### [place] [address] USAType and Screenon 77-36-0710KFO and Rh group Nom (Bld) Blood group O Rh(D) positiveNormCincinnati VA Medical Centere [facility] Physician GroupComment on above: Order Comment: Transfuse now? NResult Comment: PERFORMED BY: [place] [address] PATHOLOGIST AUDIO/VISUAL MANAGER GALINA PINEDA M.D.Basophils [#/volume] in Blood by Automated countOrdered By: Robyn Matamoros on 86-12-5080Zrtbovelo (Bld) [#/Vol]0.0 10*3/uLNormal0.0-0.2 [facility] HospitalComment on above:Result Comment: PERFORMED BY: [place] [address] PATHOLOGIST AUDIO/VISUAL MANAGER GALINA PINEDA M.D.Performed By: #### GLULS #### Point of Care testing ,Basophils/100 WBC Manual cnt (Bld)Ordered By: Zeynep Lozano on 08-11-2025 Basophils/100 WBC (Bld)0.0 %Low0.2-2.0[facility] Basophils/100 leukocytes in Blood by Automated countOrdered By: Robyn Matamoros on 51-53-3861Lkpmvnzpv/100 WBC (Bld)0.3 %Normal.[facility] Comment on above:Performed By: #### GLULS #### Point of Care testing ,C reactive protein [Mass/volume] in Serum or PlasmaOrdered By: Robyn Matamoros on 49-62-5425ESY [Mass/Vol]< 0.5 mg/dL0.0-0.5FChildren's Hospital for RehabilitationC- Reactive Proteinon 19-90-5930WGV [Mass/Vol]mg/LNormal0.0-0.5The [facility] Physician GroupComment on above:Result Comment: PERFORMED BY: [place] [address] PATHOLOGIST AUDIO/VISUAL MANAGER GALINA PINEDA M.D.Performed By: #### CRP #### [place] [address] USACapillary blood glucose measurement by glucometer (mass/volume)Ordered By: John Oconnor on 02-54-1975Vzvwudu [Mass/Vol]155 mg/dL [facility] CampusComment on above:Random Glucose Reference Range is dependent on time and content of last meal. Glucose of more than 200 mg/dL in a nonstressed, ambulatory subject supports the diagnosis of Diabetes Mellitus.Result Comment: Random Glucose Reference Range is dependent on time and content of last meal. Glucose of more than 200 mg/dL in a nonstressed, ambulatory subject supports the diagnosis of Diabetes Mellitus. PERFORMED BY: [place] [address] PATHOLOGIST AUDIO/VISUAL MANAGER GALINA PINEDA M.D.Performed By: #### CRP #### [facility] [address] [place] [address] USAComplete Blood Count Auto Diffon 97-56-2747Cluk Corpuscular HGB Conc35.7 g/qGMimv70.5-35.6The [facility] Physician GroupComment on above:Performed By: #### GLULS #### Point of Care testing ,NRBC%0.1 /100{WBC}Normal0-0.5The [facility] Physician GroupComment on above: Performed By: #### GLULS #### Point of Care testing ,White Blood Count2.9 [CFU]/mLLow4.1-10.5The [facility] Physician GroupComment on above:Performed By: #### GLULS #### Point of Care testing ,ECG 12 lead ECGon 98-16-1782PWP 12 lead ECGUNIVERSITY HOSP[facility]ALS [facility] Main [place] [address] [place] [id number] Electrocardiograph Report Signed Patient: Brian Meehan MR#: [id number] 789 : 1945 Acct:[id number] Age/Sex: 80 / M ADM Date: 08/11/25 Loc: Room: [address] [place] [address] Type: ADM IN Attending Dr: John Oconnor DO Ordering Provider: Robyn Matamoros APRN Date of Service: 08/11/2501/30/2101 ECG/ECG 12 lead ECG: monitor qtc Copies to: Test Reason : Blood Pressure : */* mmHG Vent. Rate : 64 BPM Atrial Rate : 64 BPM P-R Int : 152 ms QRS Dur : 80 ms QT Int : 448 ms P-R-T Axes : 81 61 77 degrees QTcB Int : 462 ms Normal sinus rhythm Normal ECG No previous ECGs available Confirmed by JUSTICE HUIZAR, WENDIE ([id number]) on 08/12/2025 8:47:23 AM Referred By: Electronically Signed By: WENDIE RENDON MD Transcribed By: MUS Signed By Wendie Rendon MD 1 10/12/24 0847NoSentara [facility]emarle [facility] Center Physician GroupEosinophils [#/volume] in Blood by Automated countOrdered By: Robyn Matamoros on 50-86-6751Dovmoitcaiw (Bld) [#/Vol] 0.1 10*3/uLNormal0.0-0.45[facility] HospitalComment on above: Performed By: #### GLULS #### Point of Care testing ,Eosinophils/100 WBC Manual cnt (Bld)Ordered By: Zeynep Lozano on 24-53-6134Swwtfclddvq/100 WBC (Bld)1.0 %0.9-7.0[facility] Eosinophils/100 leukocytes in Blood by Automated countOrdered By: Robyn Matamoros on 71-02-5123Cfjjdpjhrbx/100 WBC (Bld)1.8 %Normal.[facility] HospitalComment on above:Performed By: #### GLULS #### Point of Care testing ,Erythrocyte Sedimentation Rateon 54-18-1806XYX (Bld) [Velocity]15 mm/hNormal 0-19The [facility] Physician GroupComment on above:Result Comment: PERFORMED BY: [address] [place] [address] PATHOLOGIST AUDIO/VISUAL MANAGER GALINA PINEDA M.D.Performed By: #### GLULS #### Point of Care testing ,Erythrocyte distribution width Auto (RBC) [Ratio]Ordered By: Zeynep Lozano on 33-40-4362Ftydqwtnzca distribution width (RBC) [Ratio]14.7 %11.0-15.0 [facility] HospitalErythrocyte distribution width [Ratio] by Automated countOrdered By: Robyn Matamoros on 44-16-2482Omxbqvzylvr distribution width (RBC) [Ratio]15.0 %High12.0-14.8[facility] HospitalComment on above:Performed By: #### GLULS #### Point of Care testing ,Erythrocyte sedimentation rate by Photometric methodOrdered By: Robyn Matamoros on 80-90-5829ZUG Photometric method (Bld) [Velocity]15 mm/hr0-19[facility] HospitalErythrocytes [#/volume] in Blood by Automated countOrdered By: Robyn Matamoros on 39-94-9649ASN (Bld) [#/Vol]2.89 10*6/uLLow3.90-5.60[facility] HospitalComment on above:Performed By: #### GLULS #### Point of Care testing ,Globulin Calc (S) [Mass/Vol]Ordered By: Juan A Welsh on 11-98-3421Vnfmcdgx (S) [Mass/Vol]2.9 g/dLAvita Health System Galion HospitalGlomerular filtration rate (GFR) estimation in non- AmericanOrdered By: Juan A Welsh on 08-11-2025 GFR/1.73 sq M.predicted among non-blacks MDRD (S/P/Bld) [Vol rate/Area]55 mL/min/{1.73_m2}Low>=60 mL/min/1.73m 2FChildren's Hospital for RehabilitationHIV 1+2 IgG Ab [Presence] in Blood by Rapid immunoassayOrdered By: Bharat Lord on 76-73-8251HHD 1+2 IgG IA.rapid Ql (Bld)Non-ReactiveNonreactiveAvita Health System Galion HospitalHIV Screen ([facility])on 70-14-0266MPF Screen ([facility]) Non-ReactiveNormalNonreactiveThe [facility] Physician GroupComment on above:Order Comment: Which is this, the Source or the Person with the Exposure?: SOURCE Source Medical Record: [id number] Exposed Medical Record Number: UNKResult Comment: PERFORMED BY: [place] [address] PATHOLOGIST AUDIO/VISUAL MANAGER GALINA PINEDA M.D.Performed By: #### CRP #### [place] [address] USAHematocrit Auto (Bld) [Volume fraction]Ordered By: Zeynep Lozano on 85-79-0038Vlitugctlq (Bld) [Volume fraction]26.7 %Low 42.0-54.0[facility] HospitalHematocrit [Volume Fraction] of Blood by Automated countOrdered By: Robyn Matamoros on 38-60-4690Ugeeskkjjy (Bld) [Volume fraction]28.0 %Low38.8-50.0[facility] HospitalComment on above: Performed By: #### GLULS #### Point of Care testing ,Hemoglobin [Mass/volume] in BloodOrdered By: Robyn Matamoros on 08-11-2025 Hemoglobin (Bld) [Mass/Vol]10.0 g/dLLow13.0-17.0[facility] HospitalComment on above:Performed By: #### GLULS #### Point of Care testing ,Hemoglobin [Mass/volume] in BloodOrdered By: Zeynep Lozano on 08-11-2025 Hemoglobin (Bld) [Mass/Vol]9.2 g/dLLow14.0-18.0[facility] Hep C Ab wRfx to Qnt PCRon 91-22-8449Ppglupnhj C Virus AntibodyNon-Reactive NormalNon ReactiveThe [facility] Physician GroupComment on above:Order Comment: Which is this, the Source or the Person with the Exposure?: SOURCE Source Medical Record: [id number] Exposed Medical Record Number: UNKPerformed By: #### CRP #### [place] [address] USAInterpretation Hepatitis CCommentNormal.The [facility] Physician GroupComment on above:Order Comment: Which is this, the Source or the Person with the Exposure?: SOURCE Source Medical Record: [id number] Exposed Medical Record Number: UNKResult Comment: Not infected with HCV unless early or acute infection is suspected (which may be delayed in an immunocompromised individual), or other evidence exists to indicate HCV infection.Performed By: #### CRP #### [place] [id number] USAHepatitis B Surface Antibodyon 41-22-1308Aovjagaju B Surface AntibodyNon-ReactiveNormal.The [facility] Physician GroupComment on above:Order Comment: Which is this, the Source or the Person with the Exposure?: SOURCE Source Medical Record: [id number] Exposed Medical Record Number: UNK Result Comment: Non Reactive: Not immune to HBV infection. Anti-HBs undetectable or less than 10 mIU/mL. Reactive: Evidence of HBV immunity. Anti-HBs levels greater than 10 mIU/mL.Performed By: #### CRP #### [place] [id number] USAHepatitis B Surface Antigenon 83-49-4827DUjDq Screen NegativeNormalNegativeThe [facility] Physician GroupComment on above:Order Comment: Which is this, the Source or the Person with the Exposure?: SOURCE Source Medical Record: [id number] Exposed Medical Record Number: UNKResult Comment: Performed at: - [facility] [id number] Injection Moulding Machine Operator: Mateusz Bardales PhD, Phone: [phone] PERFORMED BY: [place] [address] PATHOLOGIST AUDIO/VISUAL MANAGER GALINA PINEDA M.D.Performed By: #### CRP #### [place] [address] USAHepatitis C virus IgG Ab [Presence] in Serum or Plasma by ImmunoassayOrdered By: Bharat Lord on 15-11-7541SAG IgG IA QlNon-ReactiveNon ReactiveAvita Health System Galion HospitalINR in Platelet poor plasma by Coagulation assayOrdered By: Zeynep Lozano on 25-58-3467JGO Coag (PPP) [Relative time]1.03 {INR}[facility] HospitalComment on above: DESIRED INR:2.0-3.0 CONDITIONS NOT LISTED BELOW2.5-3.5 FOR PROSTHETIC HEART VALVE REPLACEMENT2.5-3.5 RECURRENT THROMBOSISLaboratory - Chemistry and Chemistry - challengeOrdered By: Juan A Welsh on 30-39-5485Rzagmrg [Mass/Vol] 4.0 g/dL3.4-5.0[facility] HospitalALP [Catalytic activity/Vol]109 U/I47-541NmvccycqzAvita Health System Galion HospitalALT [Catalytic activity/Vol]43 U/L 16-63[facility] HospitalAST [Catalytic activity/Vol]27 U/L15-37 [facility] HospitalBilirubin [Mass/Vol]0.6 mg/dL0.2-1.0[facility] HospitalCalcium [Mass/Vol]9.1 mg/dL8.5-10.1FChildren's Hospital for RehabilitationChloride [Moles/Vol]107 mmol/K58-138SknzmrazhAvita Health System Galion HospitalCO2 [Moles/Vol]27.8 mmol/L21.0-32.0[facility] Creatinine [Mass/Vol]1.26 mg/dL0.70-1.30[facility] GFR/1.73 sq M.predicted MDRD (S/P/Bld) [Vol rate/Area]mL/min/{1.73_m2}>=60 mL/min/1.73m 2FChildren's Hospital for RehabilitationGlucose [Mass/Vol]146 mg/dLHigh 74-106[facility] HospitalPotassium [Moles/Vol]3.8 mmol/L3.5-5.1 [facility] HospitalProtein [Mass/Vol]6.9 g/dL6.4-8.2FAdena Fayette Medical Centerodium [Moles/Vol]143 mmol/U955-829QzsvfhdwqAvita Health System Galion HospitalUrea nitrogen [Mass/Vol]30.0 mg/dLHigh7.0-18.0[facility] HospitalUrea nitrogen/Creatinine [Mass ratio]23.8 mg/mgAvita Health System Galion HospitalLaboratory - Chemistry and Chemistry - challengeOrdered By: Zeynep Lozano on 33-89-8742Nyrzwvk [Moles/Vol]1.0 mmol/L0.4-2.0[facility] HospitalLaboratory - Hematology and Cell countsOrdered By: Zeynep Lozano on 52-00-2468Nqtvebwppfa/100 WBC (Bld)15.0 %Low20.5-60.0 [facility] HospitalMonocytes/100 WBC (Bld)4.0 %1.7-12.0[facility] HospitalLeukocytes [#/volume] corrected for nucleated erythrocytes in Blood by Automated counOrdered By: Robyn Matamoros on 66-28-6564VIB corrected for nucl RBC Auto (Bld) [#/Vol]2.9 10*3/uLLow4.1-10.5FChildren's Hospital for RehabilitationLeukocytes [#/volume] corrected for nucleated erythrocytes in Blood by Automated counOrdered By: Zeynep Lozano on 17-60-0430MRN corrected for nucl RBC Auto (Bld) [#/Vol]3.9 10 3/uLLow4.0-11.0 [facility] HospitalLeukocytes [#/volume] in Blood by Automated countOrdered By: Robyn Matamoros on 26-90-3452LEH (Bld) [#/Vol]2.9 10*3/uLLow 4.1-10.5FChildren's Hospital for RehabilitationComment on above:Performed By: #### GLULS #### Point of Care testing ,Lymphocytes [#/volume] in Blood by Automated countOrdered By: Robyn Matamoros on 93-32-0092Rbgyharuoqm (Bld) [#/Vol]0.4 10*3/uLLow1.00-4.8[facility] HospitalComment on above:Performed By: #### GLULS #### Point of Care testing ,Lymphocytes/100 leukocytes in Blood by Automated countOrdered By: Robyn Matamoros on 70-09-5339Njayrwdncmv/100 WBC (Bld)12.3 %Normal.[facility] HospitalComment on above:Performed By: #### GLULS #### Point of Care testing ,MCH Auto (RBC) [Entitic mass]Ordered By: Zeynep Lozano on 53-50-1401UXQ (RBC) [Entitic mass]34.3 qdGzzd96.9-34.0[facility] [Entitic mass] by Automated countOrdered By: Robyn Matamoros on 39-81-6074TXN (RBC) [Entitic mass]34.6 xzJgneqf78.5-35.2FChildren's Hospital for RehabilitationComment on above:Performed By: #### GLULS #### Point of Care testing ,MCHC Auto (RBC) [Mass/Vol]Ordered By: Robyn Matamoros on 30-96-5732ZPFE (RBC) [Mass/Vol]35.7 g/cFXqfz37.5-35.6FChildren's Hospital for RehabilitationMCHC Auto (RBC) [Mass/Vol]Ordered By: Zeynep Lozano on 97-75-2805ISYO (RBC) [Mass/Vol]34.2 g/dL29.9-35.2FChildren's Hospital for RehabilitationMCV Auto (RBC) [Entitic vol] Ordered By: Zeynep Lozano on 68-34-1668OQH (RBC) [Entitic vol]100.3 fLHigh 80.0-94.0[facility] HospitalMCV [Entitic volume] by Automated countOrdered By: Robyn Matamoros on 61-35-9662JSY (RBC) [Entitic vol]96.8 fLNormal 83.5-101[facility] HospitalComment on above:Performed By: #### GLULS #### Point of Care testing ,Monocytes [#/volume] in Blood by Automated countOrdered By: Robyn Matamoros on 09-76-5918Yljaqzkis (Bld) [#/Vol]0.1 10*3/uLNormal0.0-0.8[facility] HospitalComment on above:Performed By: #### GLULS #### Point of Care testing ,Monocytes/100 leukocytes in Blood by Automated countOrdered By: Robyn Matamoros on 99-58-1934Ppkvszxgg/100 WBC (Bld)4.4 %Normal.[facility] Comment on above:Performed By: #### GLULS #### Point of Care testing ,Neutrophils [#/volume] in Blood by Automated countOrdered By: Robyn Matamoros on 15-53-4189Mbesxnhckvn (Bld) [#/Vol]2.4 10*3/uLNormal1.8-7.7FChildren's Hospital for RehabilitationComment on above:Performed By: #### GLULS #### Point of Care testing ,Neutrophils/100 leukocytes in Blood by Automated countOrdered By: Robyn Matamoros on 59-61-0087Dslmydafnsp/100 WBC (Bld)81.2 %Normal.[facility] HospitalComment on above:Performed By: #### GLULS #### Point of Care testing ,No Panel InformationOrdered By: Bharat Lord on 25-23-8135Zlwcckfra C InterpretationComment.[facility] HospitalComment on above:Not infected with HCV unless early or acute infection issuspected (which may be delayed in an immunocompromisedindividual), or other evidence exists to indicate HCVinfection.No Panel InformationOrdered By: Zeynep Lozano on 08-11-2025 Absolute Basophils (Manual)0.00 10 3/uL0.00-0.10[facility] HospitalEosinophils # (Manual)0.03 10 3/uL0.00-0.70[facility] HospitalLymphocytes # (Manual)0.58 10 3/uLLow1.20-3.80[facility] HospitalMonocytes # (Manual)0.15 10 3/uLLow0.30-0.80[facility] Centeregmented Neutrophils # (Manual)3.12 10 3/uL1.4-6.5FChildren's Hospital for RehabilitationNucleated erythrocytes [Presence] in Blood by Automated count Ordered By: Robyn Matamoros on 00-75-8318Nfnmamxqv RBC Auto Ql (Bld)0.1 /100{WBC} 0-0.5FChildren's Hospital for RehabilitationPlatelet mean volume Auto (Bld) [Entitic vol]Ordered By: Zeynep Lozano on 57-45-4679Plsxpvqb mean volume (Bld) [Entitic vol]10.6 fL9.5-13.5FChildren's Hospital for RehabilitationPlatelet mean volume [Entitic volume] in Blood by Automated countOrdered By: Robyn Matamoros on 56-49-8214Zxhyxhyx mean volume (Bld) [Entitic vol]8.1 fLNormal6.6-10.1FChildren's Hospital for RehabilitationComment on above:Performed By: #### GLULS #### Point of Care testing ,Platelets Auto (Bld) [#/Vol]Ordered By: Zeynep Lozano on 08-11-2025 Platelets (Bld) [#/Vol]77 10 3/hZMzg537-441YfhirdnunAvita Health System Galion Hospital Platelets [#/volume] in Blood by Automated countOrdered By: Robyn Matamoros on 47-60-7715Mbbhdsjwv (Bld) [#/Vol]80 10*3/vFXyo356-003NxogrqojtAvita Health System Galion HospitalComment on above:Performed By: #### GLULS #### Point of Care testing ,Prothrombin time (PT)Ordered By: Zeynep Lozano on 87-25-9605IC Coag (PPP) [Time]10.9 s9.0-11.6Fire[facility] Medical CenterRBC Auto (Bld) [#/Vol] Ordered By: Zeynep Lozano on 43-01-7535CBF (Bld) [#/Vol]2.97 10 6/uLLow 4.70-6.10[facility] Centeregmented neutrophils/100 WBC Manual cnt (Bld)Ordered By: Zeynep Lozano on 37-32-3441Vxgggtkql neutrophils/100 WBC (Bld)80.0 %High43.0-75.0[facility] Centererum hepatitis B virus surface antibody detectionOrdered By: Bharat Lord on 83-08-3879YVQ surface Ab Ql (S)Non-Reactive.[facility] HospitalComment on above:Non Reactive: Not immune to HBV infection. Anti-HBs undetectable or less than 10 mIU/mL. Reactive: Evidence of HBV immunity. Anti-HBs levels greater than 10 mIU/mL.Serum or plasma albumin/globulin mass ratioOrdered By: Juan A Welsh on 15-90-8196Qmlzizz/Globulin [Mass ratio]1.4 {ratio}[facility] Centererum or plasma anion gap determinationOrdered By: Juan A Welsh on 38-91-6802Ydswh gap [Moles/Vol]12.0 mmol/LFAdena Fayette Medical Centererum or plasma hepatitis B virus surface antigen detection by immunoassayOrdered By: Bharat Lord on 45-29-4208XLT surface Ag IA QlNegativeNegativeAvita Health System Galion HospitalComment on above:Performed at: - [address] [id number] Director: Mateusz Bardales PhD, Phone: [phone] Anisocytosis LM Ql (Bld)Ordered By: Bj Ortega on 72-23-3832Vzrmxkxjzxqa Ql (Bld)1+[facility] HospitalBasophils/100 WBC Manual cnt (Bld) Ordered By: Bj Ortega on 86-95-0896Dgkulgonf/100 WBC (Bld)0.0 %Low0.2-2.0 [facility] HospitalEosinophils/100 WBC Manual cnt (Bld)Ordered By: Bj Ortega on 26-52-2623Rrwproimlvs/100 WBC (Bld)0.0 %Low0.9-7.0[facility] HospitalErythrocyte distribution width Auto (RBC) [Ratio]Ordered By: Bj Ortega on 37-20-0258Kfxrhsassad distribution width (RBC) [Ratio]14.6 %11.0-15.0[facility] HospitalGlomerular filtration rate (GFR) estimation in non- AmericanOrdered By: Bj Ortega on 05-20-2025 GFR/1.73 sq M.predicted among non-blacks MDRD (S/P/Bld) [Vol rate/Area] mL/min/{1.73_m2}>=60 mL/min/1.73m 2FChildren's Hospital for RehabilitationHematocrit Auto (Bld) [Volume fraction]Ordered By: Bj Ortega on 65-00-6572Xxciyaglsp (Bld) [Volume fraction]30.1 %Low42.0-54.0[facility] Hemoglobin [Mass/volume] in BloodOrdered By: Bj Ortega on 05-20-2025 Hemoglobin (Bld) [Mass/Vol]10.3 g/dLLow14.0-18.0[facility] HospitalLaboratory - Chemistry and Chemistry - challengeOrdered By: Bj Ortega on 28-77-3809Ymdfdkp [Mass/Vol]9.0 mg/dL8.5-10.1FChildren's Hospital for RehabilitationChloride [Moles/Vol]106 mmol/J29-589TtwcxkthsAvita Health System Galion HospitalCO2 [Moles/Vol]32.2 mmol/LHigh21.0-32.0[facility] HospitalCreatinine [Mass/Vol]1.07 mg/dL0.70-1.30[facility] HospitalGFR/1.73 sq M.predicted MDRD (S/P/Bld) [Vol rate/Area]mL/min/{1.73_m2}>=60 mL/min/1.73m 2 [facility] HospitalGlucose [Mass/Vol]131 mg/jCTizu08-936CcrlvjewjAvita Health System Galion HospitalPotassium [Moles/Vol]3.5 mmol/L3.5-5.1FAdena Fayette Medical Centerodium [Moles/Vol]138 mmol/T123-015JlssqkmagAvita Health System Galion HospitalUrea nitrogen [Mass/Vol]25.0 mg/dLHigh7.0-18.0[facility] HospitalUrea nitrogen/Creatinine [Mass ratio]23.4 mg/mgAvita Health System Galion HospitalLaboratory - Hematology and Cell countsOrdered By: Bj Ortega on 56-16-7175Ximdsfgvifz/100 WBC (Bld)18.0 %Low20.5-60.0[facility] HospitalMonocytes/100 WBC (Bld)3.0 %1.7-12.0[facility] Leukocytes [#/volume] corrected for nucleated erythrocytes in Blood by Automated counOrdered By: Bj Ortega on 54-57-1240PON corrected for nucl RBC Auto (Bld) [#/Vol]3.0 10 3/uLLow4.0-11.0[facility] CenterH Auto (RBC) [Entitic mass]Ordered By: Bj Ortega on 76-53-4223WEK (RBC) [Entitic mass]34.2 nyFhyx98.9-34.0[facility] CenterHC Auto (RBC) [Mass/Vol]Ordered By: Bj Ortega on 15-48-6491BYNW (RBC) [Mass/Vol]34.2 g/dL 29.9-35.2FChildren's Hospital for RehabilitationMCV Auto (RBC) [Entitic vol]Ordered By: Bj Ortega on 14-02-7493MWU (RBC) [Entitic vol]100.0 pIAing32.0-94.0 [facility] HospitalMacrocytes LM Ql (Bld)Ordered By: Bj Ortega on 43-66-2142Omonqlcybe Ql (Bld)1+[facility] HospitalNo Panel InformationOrdered By: Bj Ortega on 56-45-0142Agvqgrfp Basophils (Manual) 0.00 10 3/uL0.00-0.10[facility] HospitalEosinophils # (Manual)0.00 10 3/uL0.00-0.70[facility] HospitalLymphocytes # (Manual)0.54 10 3/uLLow1.20-3.80[facility] HospitalMonocytes # (Manual)0.09 10 3/uLLow0.30-0.80[facility] Centeregmented Neutrophils # (Manual)2.37 10 3/uL1.4-6.5FChildren's Hospital for RehabilitationPlatelet mean volume Auto (Bld) [Entitic vol]Ordered By: Bj Ortega on 91-56-6841Geruvfyu mean volume (Bld) [Entitic vol]9.9 fL9.5-13.5FChildren's Hospital for Rehabilitation Platelets Auto (Bld) [#/Vol]Ordered By: Bj Ortega on 24-03-9968Aslmmtmje (Bld) [#/Vol]76 10 3/dMFnf936-237KeaazoimcAvita Health System Galion HospitalRBC Auto (Bld) [#/Vol]Ordered By: Bj Ortega on 48-72-8639ETW (Bld) [#/Vol]3.01 10 6/uLLow 4.70-6.10[facility] Centeregmented neutrophils/100 WBC Manual cnt (Bld)Ordered By: Bj Ortega on 40-94-0213Vawhcyici neutrophils/100 WBC (Bld)79.0 %High43.0-75.0[facility] Centererum or plasma anion gap determinationOrdered By: Bj Ortega on 19-82-8195Dcudt gap [Moles/Vol]3.3 mmol/LFChildren's Hospital for RehabilitationNo Panel Informationon 08-04-2024 Oxcarbazepine Level39 ug/mETgbvxpae82-09YcsrokksvAvita Health System Galion HospitalComment on above:This test was developed and its performance characteristicsdetermined by [employer]. It has not been cleared orapproved by the Food and Drug Administration. Detection Limit = 1Performed at: [facility] - [address] [place], [place] [id number] Director: Natacha Burdick MD, Phone: [phone] 1 houron 30-01-6070MfjIkrjmsWakeMed North Hospitalurgical Pathology Ordered By: Nay Thacker on 06-99-3412FqqDsktoeSouthview Medical CenterLaboratory - Chemistry and Chemistry - challengeon 20-53-1341Pmfiepfuy Ql (U)NegativeNEGATIVE [facility] HospitalGlucose (U) [Mass/Vol]NegativeNEGATIVEAvita Health System Galion HospitalKetones Ql (U)NegativeNEGATIVEAvita Health System Galion HospitalpH (U)5.5 [pH]5.0-9.0[facility] Medical Centerpecific gravity (U) [Rel density]1.0251.005-1.025[facility] HospitalUrobilinogen Qn (U)0.2 {Jun'U}/dL0.2-1.0[facility] HospitalLaboratory - Specimen informationon 45-77-7193Sfxlvpizwy (U)CLEARCLEARFChildren's Hospital for RehabilitationColor (U)LT. YELLOWYELLOWAvita Health System Galion Hospital Laboratory - Urinalysison 01-85-1899Isshhwfor esterase Test strip Ql (U)SMALL AbnormalNEGMartin Memorial HospitalMucus Ql (Urine sed)NONE SEEN NONE [facility] CenterNitrite Ql (U)PositiveAbnormalNEGATIVE [facility] HospitalProtein Ql (U)100 mg/dLAbnormalNEG/TRACE [facility] HospitalNo Panel Informationon 00-88-6355Umfry Bacteria MODERATE #/HPFAbnormalNONE [facility] CenterUrine Occult BloodNegativeNEGMartin Memorial HospitalUrine Other CastsNONE SEEN #/LPFNONE [facility] CenterUrine Other CrystalsNone Seen #/HPFNone White HospitalUrine RBC0-2 #/HPF0-2FChildren's Hospital for RehabilitationUrine Squamous Epithelial CellsRARE #/LPFNONE/RARE [facility] HospitalUrine IFN69-90 #/HPFAbnormalNONE [facility] CenterBasophils/100 WBC Manual cnt (Bld)on 06-27-2024 Basophils/100 WBC (Bld)0.0 %Low0.2-2.0[facility] Cholesterol in LDL Calc [Mass/Vol]on 31-91-3639Mzdwbbuwvul in LDL [Mass/Vol]43.0 mg/dLAvita Health System Galion HospitalComment on above:<100 mg/dl MJHMHYL362- 129 mg/dl NEAR OR ABOVE FHQZJDH300-839 mg/dl BORDERLINE QZHM172-874 mg/dl H IGH>190 mg/dl VERY HIGHCholesterol in VLDL Calc [Mass/Vol]on 06-27-2024 Cholesterol in VLDL [Mass/Vol]18.0 mg/dLAvita Health System Galion Hospital Eosinophils/100 WBC Manual cnt (Bld)on 44-72-2625Dfqowjyabip/100 WBC (Bld)0.0 % Low0.9-7.0[facility] HospitalErythrocyte distribution width Auto (RBC) [Ratio]on 87-19-0550Qmxffqpunjk distribution width (RBC) [Ratio]15.2 %High 11.0-15.0[facility] HospitalEstimated glomerular filtration rate (GFR) non- Americanon 40-95-2456ULD/1.73 sq M.predicted among non-blacks MDRD (S/P/Bld) [Vol rate/Area]mL/min/{1.73_m2}>=60[facility] HospitalGlobulin Calc (S) [Mass/Vol]on 34-75-5704Czbgaxrc (S) [Mass/Vol]2.8 g/dL [facility] HospitalGlucose mean value [Mass/volume] in Blood Estimated from glycated hemoglobinon 28-88-4593Tkdbtsu glucose Estimated from glycated hemoglobin (Bld) [Mass/Vol]85 mg/dLAvita Health System Galion Hospital Hematocrit Auto (Bld) [Volume fraction]on 81-80-4164Hmesumylpe (Bld) [Volume fraction]28.8 %Low42.0-54.0[facility] HospitalHemoglobin [Mass/volume] in Bloodon 77-89-3439Xhzetqytgm (Bld) [Mass/Vol]10.0 g/dLLow 14.0-18.0[facility] HospitalLaboratory - Chemistry and Chemistry - challengeon 40-43-7213Gsxoevd [Mass/Vol]3.7 g/dL3.4-5.0[facility] HospitalALP [Catalytic activity/Vol]92 U/A08-309HmlqdtlhwAvita Health System Galion HospitalALT [Catalytic activity/Vol]48 U/R71-27EidzvrhvoAvita Health System [facility] Hospital AST [Catalytic activity/Vol]24 U/S46-99TumamconzAvita Health System [facility] Hospital Bilirubin [Mass/Vol]0.7 mg/dL0.2-1.0[facility] HospitalCalcium [Mass/Vol]8.8 mg/dL8.5-10.1FChildren's Hospital for RehabilitationChloride [Moles/Vol] 103 mmol/Q86-365MlsxprlbwAvita Health System Galion HospitalCholesterol [Mass/Vol]133 mg/dL <=200[facility] HospitalCholesterol in HDL [Mass/Vol]72 mg/dLHigh 40-60[facility] HospitalComment on above:> or =60 mg/dl - LOW CARDIOVASCULAR RISK<40 mg/dl - HIGH CARDIOVASCULAR RISKCO2 [Moles/Vol]33.1 mmol/LHigh21.0-32.0[facility] HospitalCreatinine [Mass/Vol]1.10 mg/dL0.70-1.30[facility] HospitalGFR/1.73 sq M.predicted MDRD (S/P/Bld) [Vol rate/Area]mL/min/{1.73_m2}>=60[facility] Glucose [Mass/Vol]175 mg/hOUxwg73-559IbusbrvaqAvita Health System Galion HospitalPotassium [Moles/Vol]4.1 mmol/L3.5-5.1FChildren's Hospital for RehabilitationProtein [Mass/Vol] 6.5 g/dL6.4-8.2FAdena Fayette Medical Centerodium [Moles/Vol]140 mmol/L 136-145[facility] HospitalTriglyceride [Mass/Vol]90 mg/dL<=150 [facility] HospitalUrea nitrogen [Mass/Vol]28.0 mg/dLHigh7.0-18.0 [facility] HospitalUrea nitrogen/Creatinine [Mass ratio]25.5 mg/mg [facility] HospitalLaboratory - Hematology and Cell countson 44-71-7841OfD8h (Bld) [Mass fraction]4.6 %4.5-6.2FChildren's Hospital for RehabilitationComment on above:ADA RECOMMENDED LIMIT 4.0 - 6.0ADA THERAPEUTIC TARGET < 7.0ACTION SUGGESTED> 7.0Lymphocytes/100 WBC (Bld)18.0 %Low20.5-60.0[facility] HospitalMonocytes/100 WBC (Bld)10.0 %1.7-12.0[facility] HospitalLeukocytes [#/volume] corrected for nucleated erythrocytes in Blood by Automated counon 61-04-7484GSH corrected for nucl RBC Auto (Bld) [#/Vol]3.1 10 3/uLLow4.0-11.0[facility] CenterH Auto (RBC) [Entitic mass]on 45-86-1268IKL (RBC) [Entitic mass]34.4 zlVwzc76.9-34.0[facility] HospitalMCHC Auto (RBC) [Mass/Vol]on 48-66-2962ZWUW (RBC) [Mass/Vol]34.7 g/dL29.9-35.2FChildren's Hospital for RehabilitationMCV Auto (RBC) [Entitic vol]on 18-15-3549HFY (RBC) [Entitic vol]99.0 iZVpub63.0-94.0[facility] HospitalNo Panel Informationon 39-11-5411Bfupcyub Basophils (Manual)0.00 10 3/uL0.00-0.10[facility] HospitalEosinophils # (Manual)0.00 10 3/uL0.00-0.70[facility] HospitalLymphocytes # (Manual)0.55 10 3/uLLow1.20-3.80[facility] HospitalMonocytes # (Manual)0.31 10 3/uL0.30-0.80[facility] Centeregmented Neutrophils # (Manual)2.23 10 3/uL1.4-6.5FChildren's Hospital for Rehabilitation Platelet mean volume Auto (Bld) [Entitic vol]on 06-99-9095Phwydpey mean volume (Bld) [Entitic vol]10.3 fL9.5-13.5FChildren's Hospital for RehabilitationPlatelets Auto (Bld) [#/Vol]on 72-94-0258Tqmawtkvm (Bld) [#/Vol]86 10 3/aHNng305-485 [facility] HospitalRBC Auto (Bld) [#/Vol]on 59-21-5952MFW (Bld) [#/Vol]2.91 10 6/uLLow4.70-6.10[facility] Centeregmented neutrophils/100 WBC Manual cnt (Bld)on 40-24-2355Qyoltttsd neutrophils/100 WBC (Bld)72.0 %43.0-75.0[facility] Centererum or plasma albumin/globulin mass ratioon 41-22-4946Zexpntt/Globulin [Mass ratio]1.3 {ratio} [facility] Centererum or plasma anion gap determinationon 23-72-7379Xxdne gap [Moles/Vol]8.0 mmol/LFAdena Fayette Medical Centererum or plasma total cholesterol/high density lipoprotein (HDL) cholesterol mass rat on 98-72-8529Wteqbsftiul.total/Cholesterol in HDL [Mass ratio]1.8 {ratio} [facility] HospitalComment on above:3.3 - 4.4 LOW RISK4.4 - 7.1 AVERAGE RISK7.1 - 11.0 MODERATE RISK>11.0 HIGH RISKBasophils Auto (Bld) [#/Vol] on 36-99-9585Lwjrkjiky (Bld) [#/Vol]0.0 10 3/uL0.0-0.1FChildren's Hospital for RehabilitationBasophils/100 WBC Auto (Bld)on 53-80-7630Gbioavszs/100 WBC (Bld)0.2 % 0.2-2.0[facility] HospitalEosinophils/100 WBC Auto (Bld)on 50-72-0128Nkfyeskaclf/100 WBC (Bld)0.0 %0.9-7.0[facility] Erythrocyte distribution width Auto (RBC) [Ratio]on 69-26-8867Pqifulapkjc distribution width (RBC) [Ratio]15.2 %11.0-15.0[facility] Estimated glomerular filtration rate (GFR) non- Americanon 02-15-2024 GFR/1.73 sq M.predicted among non-blacks MDRD (S/P/Bld) [Vol rate/Area] mL/min/{1.73_m2}>=60[facility] HospitalGlobulin Calc (S) [Mass/Vol]on 22-97-7373Mvdhuyje (S) [Mass/Vol]3.1 g/dLAvita Health System Galion HospitalHematocrit Auto (Bld) [Volume fraction]on 88-68-5000Cvnshqhzdc (Bld) [Volume fraction]29.3 %42.0-54.0[facility] HospitalHemoglobin [Mass/volume] in Bloodon 59-28-0099Iicgzxpmpz (Bld) [Mass/Vol]9.7 g/dL14.0-18.0 [facility] HospitalLaboratory - Chemistry and Chemistry - challengeon 66-38-6050Mahvbzz [Mass/Vol]3.4 g/dL3.4-5.0[facility] HospitalALP [Catalytic activity/Vol]90 U/R21-925RhmiomcpsAvita Health System Galion HospitalALT [Catalytic activity/Vol]31 U/T56-18NfbwkwnflAvita Health System [facility] Hospital AST [Catalytic activity/Vol]28 U/M78-69BcokbhvymAv[facility] Hospital Bilirubin [Mass/Vol]0.5 mg/dL0.2-1.0[facility] HospitalCalcium [Mass/Vol]9.1 mg/dL8.5-10.1FChildren's Hospital for RehabilitationChloride [Moles/Vol] 107 mmol/J25-234WtvrdpxflAvita Health System Galion HospitalCO2 [Moles/Vol]28.2 mmol/L 21.0-32.0[facility] HospitalCreatinine [Mass/Vol]0.98 mg/dL 0.70-1.30[facility] HospitalGFR/1.73 sq M.predicted MDRD (S/P/Bld) [Vol rate/Area]mL/min/{1.73_m2}>=60[facility] HospitalGlucose [Mass/Vol]184 mg/rN34-780RblacemduAvita Health System Galion HospitalPotassium [Moles/Vol] 3.6 mmol/L3.5-5.1FChildren's Hospital for RehabilitationProtein [Mass/Vol]6.5 g/dL 6.4-8.2FAdena Fayette Medical Centerodium [Moles/Vol]144 mmol/S739-026 [facility] HospitalUrea nitrogen [Mass/Vol]24.0 mg/dL7.0-18.0 [facility] HospitalUrea nitrogen/Creatinine [Mass ratio]24.5 mg/mg [facility] HospitalLaboratory - Hematology and Cell countson 30-09-6711Mwbdlyoq granulocytes/100 WBC (Bld)0.6 %0.0-0.5FChildren's Hospital for RehabilitationLeukocytes [#/volume] corrected for nucleated erythrocytes in Blood by Automated counon 50-67-3344EFW corrected for nucl RBC Auto (Bld) [#/Vol]4.7 10 3/uL4.0-11.0[facility] HospitalLymphocytes Auto (Bld) [#/Vol]on 88-64-4404Efhqwwxrvva (Bld) [#/Vol]0.2 10 3/uL1.2-3.8[facility] HospitalLymphocytes/100 WBC Auto (Bld)on 02-15-2024 Lymphocytes/100 WBC (Bld)5.1 %20.5-60.0[facility] CenterH Auto (RBC) [Entitic mass]on 64-07-3119TUF (RBC) [Entitic mass]33.3 pg25.9-34.0 [facility] HospitalMCHC Auto (RBC) [Mass/Vol]on 93-64-4599RBGV (RBC) [Mass/Vol]33.1 g/dL29.9-35.2FChildren's Hospital for RehabilitationMCV Auto (RBC) [Entitic vol]on 89-87-3279GBM (RBC) [Entitic vol]100.7 fL80.0-94.0 [facility] HospitalMonocytes Auto (Bld) [#/Vol]on 02-15-2024 Monocytes (Bld) [#/Vol]0.3 10 3/uL0.3-0.8[facility] Monocytes/100 WBC Auto (Bld)on 55-02-9493Kzudammrq/100 WBC (Bld)7.2 %1.7-12.0 [facility] HospitalNeutrophils Auto (Bld) [#/Vol]on 02-15-2024 Neutrophils (Bld) [#/Vol]4.1 10 3/uL1.4-6.5FChildren's Hospital for Rehabilitation Neutrophils/100 WBC Auto (Bld)on 75-86-2574Omdheloqopv/100 WBC (Bld)86.9 % 43.0-75.0[facility] HospitalNo Panel Informationon 02-15-2024 Eosinophils # (Auto)0.0 10 3/uL0.0-0.7FChildren's Hospital for RehabilitationImmature Granulocyte # (Auto)0.03 10 3/uL0.00-0.03[facility] Platelet mean volume Auto (Bld) [Entitic vol]on 52-67-1873Ispbtobd mean volume (Bld) [Entitic vol]10.6 fL9.5-13.5FChildren's Hospital for RehabilitationPlatelets Auto (Bld) [#/Vol]on 33-36-6391Bbyvgjskg (Bld) [#/Vol]60 10 3/tR775-528DtpvspngaAvita Health System Galion HospitalRBC Auto (Bld) [#/Vol]on 42-39-6073CNB (Bld) [#/Vol]2.91 10 6/uL4.70-6.10[facility] Centererum or plasma albumin/globulin mass ratioon 54-39-8184Zvzpbhc/Globulin [Mass ratio]1.1 {ratio} [facility] Centererum or plasma anion gap determinationon 11-00-4004Srybz gap [Moles/Vol]12.4 mmol/LFChildren's Hospital for Rehabilitation Basophils/100 WBC Manual cnt (Bld)on 83-43-1790Fgbyxffzm/100 WBC (Bld)1.0 % 0.2-2.0[facility] HospitalCasts typing in urine sediment by light microscopyon 80-97-2938Ilbjm LM Nom (Urine sed)NONE SEEN #/LPFNONE SEENAvita Health System Galion HospitalEosinophils/100 WBC Manual cnt (Bld)on 02-14-2024 Eosinophils/100 WBC (Bld)0.0 %0.9-7.0[facility] Erythrocyte distribution width Auto (RBC) [Ratio]on 73-42-2335Zhmonkzaezg distribution width (RBC) [Ratio]15.0 %11.0-15.0[facility] Estimated glomerular filtration rate (GFR) non- Americanon 02-14-2024 GFR/1.73 sq M.predicted among non-blacks MDRD (S/P/Bld) [Vol rate/Area] mL/min/{1.73_m2}>=60[facility] HospitalHematocrit Auto (Bld) [Volume fraction]on 22-80-4673Tpllkgxaet (Bld) [Volume fraction]28.2 %42.0-54.0 [facility] HospitalHemoglobin [Mass/volume] in Bloodon 02-14-2024 Hemoglobin (Bld) [Mass/Vol]9.6 g/dL14.0-18.0[facility] Laboratory - Chemistry and Chemistry - challengeon 49-39-1136Gokbtpdev Ql (U) NegativeNEGATIVEAvita Health System Galion HospitalGlucose (U) [Mass/Vol]250 mg/dL NEGATIVEAvita Health System Galion HospitalKetones Ql (U)NegativeNEGATIVEAvita Health System Galion HospitalpH (U)5.5 [pH]5.0-9.0[facility] Specific gravity (U) [Rel density]1.0251.005-1.025[facility] HospitalUrobilinogen Qn (U)0.2 {Jun'U}/dL0.2-1.0[facility] HospitalCalcium [Mass/Vol]8.7 mg/dL8.5-10.1FChildren's Hospital for Rehabilitation Chloride [Moles/Vol]106 mmol/B19-181WnjuogspcAvita Health System Galion HospitalCO2 [Moles/Vol]30.0 mmol/L21.0-32.0[facility] HospitalCreatinine [Mass/Vol]1.12 mg/dL0.70-1.30[facility] HospitalGFR/1.73 sq M.predicted MDRD (S/P/Bld) [Vol rate/Area]mL/min/{1.73_m2}>=60[facility] HospitalGlucose [Mass/Vol]251 mg/qJ20-566CppgkwqbrAvita [facility] Hospital Potassium [Moles/Vol]4.1 mmol/L3.5-5.1FAdena Fayette Medical Centerodium [Moles/Vol]142 mmol/K398-296YulvkgvyeAvita Health System Galion HospitalUrea nitrogen [Mass/Vol]29.0 mg/dL7.0-18.0[facility] HospitalUrea nitrogen/Creatinine [Mass ratio]25.9 mg/mgAvita Health System [facility] Hospital Laboratory - Hematology and Cell countson 24-69-3044Bwxs form neutrophils/100 WBC (Bld)2.0 %0-5FChildren's Hospital for RehabilitationLymphocytes/100 WBC (Bld)1.0 % 20.5-60.0[facility] HospitalMonocytes/100 WBC (Bld)4.0 %1.7-12.0 [facility] HospitalLaboratory - Microbiology and Antimicrobial susceptibilityOrdered By: Bj Ortega on 07-36-9035Rzbsxlwb identified Cx Nom (U)[facility] HospitalLaboratory - Specimen informationon 94-80-9552Fuqhiipzgb (U)CLEARCLEARFChildren's Hospital for RehabilitationColor (U) YELLOWYELLOWAvita Health System Galion HospitalLaboratory - Urinalysison 22-74-5009Ptjcfeull sediment LM Ql (Urine sed)[facility] HospitalLeukocyte esterase Test strip Ql (U)NegativeNEGATIVEAvita Health System Galion HospitalNitrite Ql (U)PositiveNEGATIVEAvita Health [facility] Protein Ql (U)>=300 mg/dLNEG/TRACEAvita Health System Galion HospitalLeukocytes [#/volume] corrected for nucleated erythrocytes in Blood by Automated counon 47-26-5828CXA corrected for nucl RBC Auto (Bld) [#/Vol]4.5 10 3/uL4.0-11.0 [facility] CenterH Auto (RBC) [Entitic mass]on 49-57-4481UVE (RBC) [Entitic mass]34.2 pg25.9-34.0[facility] HospitalMCHC Auto (RBC) [Mass/Vol]on 53-02-2589PEKM (RBC) [Mass/Vol]34.0 g/dL29.9-35.2FChildren's Hospital for RehabilitationMCV Auto (RBC) [Entitic vol]on 51-10-0966EIV (RBC) [Entitic vol]100.4 fL80.0-94.0[facility] HospitalMucus LM Ql (Urine sed)on 60-51-5452Hbxzy Ql (Urine sed)NONE SEENNONE SEENAvita Health System Galion HospitalNo Panel Informationon 89-79-0448Elezg BacteriaLARGE #/HPFNONE [facility] CenterUrine Culture ReflexedYEGerman HospitalUrine Occult BloodLARGENEGATIVEAvita [facility] Urine Other CrystalsSeen #/HPFNone White HospitalUrine RBC0-2 #/HPF0-2FChildren's Hospital for RehabilitationUrine Squamous Epithelial Cells RARE #/LPFNONE/RAREAvita Health System Galion HospitalUrine WBC2-5 #/HPFNONE SEEN [facility] HospitalAbsolute Basophils (Manual)0.04 10 3/uL 0.00-0.10[facility] HospitalBand Neutrophils # (Manual)0.1 10 3/uL 0.0-0.3FChildren's Hospital for RehabilitationEosinophils # (Manual)0.00 10 3/uL 0.00-0.70[facility] HospitalLymphocytes # (Manual)0.04 10 3/uL 1.20-3.80[facility] HospitalMonocytes # (Manual)0.18 10 3/uL 0.30-0.80St. [facility] Medical Centeregmented Neutrophils # (Manual)4.14 10 3/uL1.4-6.5FChildren's Hospital for RehabilitationPlatelet mean volume Auto (Bld) [Entitic vol]on 92-46-0654Uuitcpew mean volume (Bld) [Entitic vol]10.4 fL 9.5-13.5FChildren's Hospital for RehabilitationPlatelets Auto (Bld) [#/Vol]on 53-07-5187Ikqxnktvw (Bld) [#/Vol]65 10 3/uR814-886WmxyfkjxyAvita Health System Galion HospitalRBC Auto (Bld) [#/Vol]on 11-94-5421AYJ (Bld) [#/Vol]2.81 10 6/uL4.70-6.10 [facility] Centeregmented neutrophils/100 WBC Manual cnt (Bld) on 09-58-5304Ihxaqpvgj neutrophils/100 WBC (Bld)92.0 %[facility] Centererum or plasma anion gap determinationon 99-43-2519Kylxq gap [Moles/Vol] 10.1 mmol/LFAdena Fayette Medical Centercreenson 84-30-2984Drfkhhq [id number]#1.00CD:127NormalMarion HospitalAmbulatory Visit Summaryon 78-12-2052Udstxlpugh Visit Summary BRIAN MEEHAN :1945 Visit Date:12/11/2022 Ambulatory Visit Instructions Your Diagnosis BPH with obstruction/lower urinary tract symptoms Kidney stones Other obstructive and reflux uropathy Your Care Team Attending Physician - Dominic ASIF MD Primary Care Physician - JUAN A WELSH [...] When: Only if needed Comments: PRN Where: [address] [place] [address]- Medications What How Much When Instructions Unchanged [...] nondairy milk, and fortified (more content not included)...[facility] InstituteLab Reportson 48-57-6552Jlx Reports [id number]#1.00CD:127NormalJd [facility] Orthopaedic InstitutePatient Educationon 94-86-9899Bsiflxv EducationUrology Dietary Guidelines to Help Prevent Kidney [...] Rhubarb. ? Beets. ? Potato chips and mohawk fries. ? Nuts. ? If you regularly take a diuretic medicine, make sure to eat at least 1?2 fruits or vegetables high in potassium each day. These include: ? Avocado. ? Banana. ? Pettis, prune, carrot, or tomato juice. ? Baked [...] with salt. Salad dr (more content not included)...NormalMarion HospitalRAD - MISNovant Health Kernersville Medical Center 57-29-0373SFS - MISC [id number]#1.00CD:127NormalMarion HospitalUrology Office/Clinic Noteon 58-78-5914Nwxxgfq Office/Clinic NoteChief Complaint pt here today for [...] HUIZAR, Dominic Handley, URL Only if needed [address] [place] [address]- Additional Instructions: PRN Patient Education Dietary Guidelines [...] CA - Cancer o (more content not included)...[facility] Comment on above:Result Comment: Electronically Signed By: YEFRI HUIZAR, Dominic Handley\.br\Date and Time Signed: 12/11/22 13:59 EST\.br\Electronically Co-Signed By: Annemarie Braun\.br\Date and Time Co-Signed: 12/11/22 13:48ESTXR KUB 1 VIEWon 43-55-0081IX KUB 1 VIEWEXAMINATION: XR KUB 1 VIEW [...] Electronically authenticated by: SHAKA BLANCO Date: 2022-12-09 12:10NormalThe [facility] CenterOXCARBAZEPINE / TRILEPTALon 64-63-3281Gebkvcwrsthzq39 ug/mL Critically ijgj22-78Mie [facility] CenterComment on above:Result Comment: This test was developed and its performance characteristics determined by [facility]. It has not been cleared or approved by the Food and Drug Administration. Detection Limit = 1Performed By: #### BMP #### [facility] [address] [place] [address] Dr. Kelly Marquez AUTO DIFFon 55-22-2903AQWY #0.0 103/ulNormal0.0-0.1[facility] Va Medical CenterComment on above:Performed By: #### BMP #### [facility] [address] [place] [address] Dr. Kelly Castanedaphils/100 WBC (Bld)0.3 %Normal0.2-2.0[facility] Comment on above:Performed By: #### BMP #### [facility] [address] [place] [address] Dr. Kelly Bernard #0.1 103/ulNormal0.0-0.7The [facility] CenterComment on above: Performed By: #### BMP #### [facility] [address] [place] [address] Dr. Kelly Linagosinophils/100 WBC (Bld)2.2 %Normal0.9-7.0[facility] Comment on above:Performed By: #### BMP #### [facility] [address] [place] [address] Dr. Kelly Liangrythrocyte distribution width (RBC) [Ratio]14.8 %Lkedxd54.0-15.0 [facility] CenterComment on above:Performed By: #### BMP #### [facility] [address] [place] [address] Dr. Kelly MukherjeeHematocrit (Bld) [Volume fraction]29.5 %Critically low42.0-54.0 The [facility] CenterComment on above:Performed By: #### BMP #### [facility] [address] [place] [address] Dr. Kelly MukherjeeHemoglobin (Bld) [Mass/Vol]10.3 g/dLCritically low14.0-18.0The [facility] CenterComment on above:Performed By: #### BMP #### [facility] [address] [place] [address] Dr. Kelly MukherjeeIG #0.01 10e3/ulNormal0.00-0.03[facility] CenterComment on above:Performed By: #### BMP #### [facility] [address] [place] [address] Dr. Kelly MukherjeeIG %0.3 %Normal0.0-0.5The [facility] Medical CenterComment on above: Performed By: #### BMP #### [facility] [address] [place] [address] Dr. Kelly CheneyMPH #0.5 103/ulCritically low1.2-3.8The [facility] Comment on above:Performed By: #### BMP #### [facility] [address] [place] [address] Dr. Kelly Cheneymphocytes/100 WBC (Bld)16.0 %Critically low20.5-60.0The [facility] Medical CenterComment on above:Performed By: #### BMP #### [facility] [address] [address] [address] Kelly Dumas DIFF REQNONormalThe [facility] CenterComment on above: Performed By: #### BMP #### [facility] [address] [place] [address] Dr. Kelly Rahman (RBC) [Entitic mass]34.1 pgCritically high25.9-34.0The [facility]ie HospitalComment on above:Performed By: #### BMP #### [facility] [address] [place] [address] Dr. Kelly Rahman (RBC) [Mass/Vol]34.9 g/dNVzjzuv06.9-35.2The [facility] CenterComment on above:Performed By: #### BMP #### [facility] [address] [place] [address] Dr. Kelly Rahman (RBC) [Entitic vol]97.7 fLCritically high80.0-94.0The [facility] CenterComment on above:Performed By: #### BMP #### [facility] [address] [place] [address] Dr. Kelly Rodriguez #0.2 103/ulCritically low0.3-0.8The [facility] CenterComment on above:Performed By: #### BMP #### [facility] [address] [place] [address] Dr. Kelly Spiveyocytes/100 WBC (Bld)5.8 %Normal1.7-12.0The [facility] Comment on above:Performed By: #### BMP #### [facility] [address] [place] [address] Dr. Kelly Alexis #2.4 103/ulNormal1.4-6.5The [facility] CenterComment on above:Performed By: #### BMP #### [facility] [address] [place] [address] Dr. Kelly Moralesutrophils/100 WBC (Bld)75.4 %Critically high43.0-75.0The [facility] CenterComment on above:Performed By: #### BMP #### [facility] [address] [address] [address] Kelly Badillo mean volume (Bld) [Entitic vol]10.1 fLNormal9.5-13.5The [facility] on above:Performed By: #### BMP #### [facility] [address] [address] [address] Kelly MukherjeePLT63 103/ulCritically wgm880-030Xyy [facility] CenterComselect [facility] on above:Performed By: #### BMP #### [facility] [address] [place] [address] Dr. Kelly MukherjeeRBC3.02 106/ulCritically low4.70-6.10The [facility] on above:Performed By: #### BMP #### [facility] [address] [place] [address] Dr. Kelly MukherjeeWBC3.1 103/ulCritically low4.0-11.0The [facility] CenterComselect specialty hospital[facility] on above:Performed By: #### BMP #### [facility] [address] [place] [address] Dr. Kelly Betancourt URINE PROFILEon 26-24-1370Naplnfmqn Ql (U)NegativeNormal NEGATIVETogus Va Medical CenterComselect specialty hospital[facility] on above:Performed By: #### BMP #### [facility] [address] [place] [address] Dr. Kelly Blakely (U)CLEARNormalCLEARThe [facility] CenterComselect [facility] on above: Performed By: #### BMP #### [facility] [address] [place] [address] Dr. Kelly Steward (U)LT. YELLOWNormalYELLOWTogus Va Medical CenterComselect specialty hospital[facility] on above:Performed By: #### BMP #### [facility] [address] [place] [address] Dr. Kelly Jett micrscopic examination will be performed if indicated. NormalThe [facility] Medical CenterComselect specialty hospital[facility] on above:Performed By: #### BMP #### [facility] [address] [address] [address] Kelly MukherjeeGlucose Ql (U)250 mg/dlAbnormalNEGATIVETogus Va Medical Center Comment on above:Performed By: #### BMP #### [facility] [address] [address] [address] Kelly MukherjeeHemoglobin Ql (U)NegativeNormalNEGCleveland Clinic Mercy Hospital Comment on above:Performed By: #### BMP #### [facility] [address] [address] [address] Kelly MukherjeeKetones Ql (U)NegativeNormalNEGATIVETogus Va Medical CenterComment on above:Performed By: #### BMP #### [facility] [address] [place] [address] Dr. Kelly MukherjeeLEUKOCYTESNegativeNormalNEGATIVETogus Va Medical CenterComment on above:Performed By: #### BMP #### [facility] [address] [place] [address] Dr. Kelly MukherjeeNitrite Ql (U)NegativeNormalNEGATIVETogus Va Medical CenterComment on above:Performed By: #### BMP #### [facility] [address] [place] [address] Dr. Kelly MukherjeepH (U)7.0 [pH]Normal5-9T[facility] Va Medical CenterComment on above: Performed By: #### BMP #### [facility] [address] [place] [address] Dr. Kelly MukherjeeProtein (U) [Mass/Vol]100 mg/dLAbnormalNEGATIVE/ TRACEThe Bowie HospitalComment on above:Performed By: #### BMP #### [facility] [address] [place] [address] Dr. Kelly MukherjeeSPEC GRAVITY1.918Kgfjzm2.005-<=1.025The [facility] CenterComment on above:Performed By: #### BMP #### [facility] [address] [address] [address] Kelly Covarrubias MICRO INDNOT INDICATEDNoKnox Community HospitalComment on above:Performed By: #### BMP #### [facility] [address] [address] [address] Kelly Changbilinogen Qn (U)0.2 {Jun'U}/dLNormal0.2 - 1.0The [facility] CenterComment on above:Performed By: #### BMP #### [facility] [address] [address] [address] Kelly MukherjeePOINT OF CARE GLUCOSEon 54-50-9203Sorjpzo [Mass/Vol]253 mg/dL Critically lolm50-228Nms [facility] CenterComment on above:Performed By: #### POCGLUC #### [facility] [address] [address] [address] Kelly MukherjeePROF CHEM 8 (BAS METB)on 06-47-6348Oosrt gap [Moles/Vol]8.5 mmol/LNormalThe [facility] CenterComment on above:Performed By: #### BMP #### [facility] [address] [address] [address] Kelly MukherjeeCalcium [Mass/Vol]8.7 mg/dLNormal8.5-10.1The [facility] Comment on above:Performed By: #### BMP #### [facility] [address] [place] [address] Dr. Kelly MukherjeeChloride [Moles/Vol]106 mmol/GVsdasu07-696Plg [facility] Comment on above:Performed By: #### BMP #### [facility] [address] [address] [address] Kelly MukherjeeCO2 [Moles/Vol]29.0 mmol/STlsink03.0-32.0The [facility] Comment on above:Performed By: #### BMP #### [facility] [address] [address] [address] Kelly MukherjeeCreatinine [Mass/Vol]0.84 mg/dLNormal0.70-1.30The [facility] CenterComment on above:Performed By: #### BMP #### [facility] [address] [place] [address] Dr. Mendoza ChangEGFR-AF JAPANESE>60Normal>=60The [facility] CenterComment on above:Performed By: #### BMP #### [facility] [address] [address] [address] Kelly LiangGFR-NON AF JAPANESE>60Normal>=60The [facility] CenterComment on above:Performed By: #### BMP #### [facility] [address] [address] [address] Kelly MukherjeeGlucose [Mass/Vol]119 mg/dLCritically qpwl82-978Uhx [facility] CenterComment on above:Performed By: #### BMP #### [facility] [address] [address] [address] Kelly MukherjeePotassium [Moles/Vol]3.5 mmol/LNormal3.5-5.1The [facility] Comment on above:Performed By: #### BMP #### [facility] [address] [address] [address] Kelly MukherjeeSodium [Moles/Vol]140 mmol/FUzibaw296-380Myc [facility] Comment on above:Performed By: #### BMP #### University [facility] [address] [address] [address] Kelly MukherjeeUrea nitrogen [Mass/Vol]21.0 mg/dLCritically high7.0-18.0The [facility] CenterComselect [facility] on above:Performed By: #### BMP #### [facility] [address] [address] [address] Kelly MukherjeeUrea nitrogen/Creatinine [Mass ratio]25.0 mg/mgNormalThe [facility] CenterComment on above:Performed By: #### BMP #### [facility] [address] [address] [address] Kelly Marquez AUTO DIFFon [id number] #0.0 103/ulNormal0.0-0.1The [facility] CenterComment on above:Performed By: #### POCGLUC #### [facility] [address] [address] [address] Kelly MukherjeeBasophils/100 WBC (Bld)0.2 %Normal0.2-2.0The [facility] Comment on above:Performed By: #### POCGLUC #### [facility] [address] [place] [address] Dr. Kelly Bernard #0.0 103/ulNormal0.0-0.7The [facility] CenterComment on above: Performed By: #### POCGLUC #### [facility] [address] [place] [address] Dr. Kelly Liangosinophils/100 WBC (Bld)1.0 %Normal0.9-7.0The [facility] Comment on above:Performed By: #### POCGLUC #### [facility] [address] [place] [address] Dr. Kelly Liangrythrocyte distribution width (RBC) [Ratio]15.1 %Critically high 11.0-15.0The [facility] CenterComment on above:Performed By: #### POCGLUC #### [facility] [address] [place] [address] Dr. Kelly MukherjeeHematocrit (Bld) [Volume fraction]30.3 %Critically low42.0-54.0 The [facility] CenterComment on above:Performed By: #### POCGLUC #### [facility] [address] [place] [address] Dr. Kelly MukherjeeHemoglobin (Bld) [Mass/Vol]10.7 g/dLCritically low14.0-18.0The [facility] CenterComment on above:Performed By: #### POCGLUC #### [facility] [address] [place] [address] Dr. Kelly Craig #0.01 10e3/ulNormal0.00-0.03The [facility] CenterComment on above:Performed By: #### POCGLUC #### [facility] [address] [place] [address] Dr. Kelly Craig %0.2 %Normal0.0-0.5The [facility] CenterComment on above: Performed By: #### POCGLUC #### [facility] [address] [place] [address] Dr. Kelly Hay #0.4 103/ulCritically low1.2-3.8The [facility] Comment on above:Performed By: #### POCGLUC #### [facility] [address] [place] [address] Dr. Kelly Cheneymphocytes/100 WBC (Bld)8.9 %Critically low20.5-60.0The [facility] CenterComment on above:Performed By: #### POCGLUC #### [facility] [address] [place] [address] Dr. Kelly Dumas DIFF REQNONormalThe [facility] CenterComment on above: Performed By: #### POCGLUC #### [facility] [address] [place] [address] Dr. Kelly Rahman (RBC) [Entitic mass]34.1 pgCritically high25.9-34.0The [facility] CenterComment on above:Performed By: #### POCGLUC #### [facility] [address] [place] [address] Dr. Kelly Rahman (RBC) [Mass/Vol]35.3 g/dLCritically high29.9-35.2The [facility] CenterComment on above:Performed By: #### POCGLUC #### [facility] [address] [place] [address] Dr. Kelly Rahman (RBC) [Entitic vol]96.5 fLCritically high80.0-94.0The [facility] CenterComment on above:Performed By: #### POCGLUC #### [facility] [address] [place] [address] Dr. Kelly Rodriguez #0.2 103/ulCritically low0.3-0.8ThAdams County HospitalComment on above:Performed By: #### POCGLUC #### [facility] [address] [place] [address] Dr. Kelly Spiveyocytes/100 WBC (Bld)6.0 %Normal1.7-12.0[facility] Comment on above:Performed By: #### POCGLUC #### [facility] [address] [place] [address] Dr. Kelly MoralesUT #3.4 103/ulNormal1.4-6.5The [facility] CenterComment on above:Performed By: #### POCGLUC #### [facility] [address] [place] [address] Dr. Kelly Moralesutrophils/100 WBC (Bld)83.7 %Critically high43.0-75.0The [facility] CenterComment on above:Performed By: #### POCGLUC #### [facility] [address] [place] [address] Dr. Kelly MukherjeePlatelet mean volume (Bld) [Entitic vol]10.2 fLNormal9.5-13.5The [facility] CenterComment on above:Performed By: #### POCGLUC #### [facility] [address] [place] [address] Dr. Kelly MukherjeePLT76 103/ulCritically hei710-158Kes [facility] CenterComment on above:Performed By: #### POCGLUC #### [facility] [address] [place] [address] Dr. Kelly MukherjeeRBC3.14 106/ulCritically low4.70-6.10The [facility] CenterComment on above:Performed By: #### POCGLUC #### [facility] [address] [place] [address] Dr. Kelly MukherjeeWBC4.0 103/ulNormal4.0-11.0The [facility] CenterComment on above: Performed By: #### POCGLUC #### [facility] [address] [place] [address] Dr. Kelly MukherjeeCT HEAD WO CONon [id number] HEAD WO CONEXAMINATION: CT HEAD WO CON [...] Electronically authenticated by: SYLVESTER BARBOUR Date: 2022-10-04 15:34NoKnox Community HospitalCovid-19 PCR (CVDTBH)on 28-98-8134NWWJ-CoV-2 (COVID-19) RNA ABIMBOLA+probe Ql (Unsp spec)Not detectedNormalNOT DETECTEDThe [facility] Comment on above:Result Comment: When diagnostic testing [...] for this test is supported by the Set Off Blocker of Health and Human Service's declaration that [...] longer be used).Performed By: #### CVDTBH #### [facility] [address] [address] [address] Kelly MukherjeeEFFINGHAM [facility] GLUCOSEon 37-17-0025Aevjeww [Mass/Vol]134 mg/dL Critically hrjq75-793Ppd [facility] CenterComment on above:Performed By: #### POCGLUC #### [facility] [address] [place] [address] Dr. Kelly MukherjeePROF CHEM 8 (BAS METB)on 16-30-8655Eyval gap [Moles/Vol]12.9 mmol/LNormalThe [facility] CenterComment on above:Performed By: #### BMP #### [facility] [address] [address] [address] Kelly MukherjeeCalcium [Mass/Vol]9.0 mg/dLNormal8.5-10.1The [facility] Comment on above:Performed By: #### BMP #### [facility] [address] [place] [address] Dr. Kelly MukherjeeChloride [Moles/Vol]106 mmol/OMfziyb45-504Wpd [facility] Comment on above:Performed By: #### BMP #### [facility] [address] [place] [address] Dr. Kelly MukherjeeCO2 [Moles/Vol]27.2 mmol/XJvxdyu49.0-32.0The [facility] Comment on above:Performed By: #### BMP #### [facility] [address] [place] [address] Dr. Kelly MukherjeeCreatinine [Mass/Vol]0.98 mg/dLNormal0.70-1.30The [facility] CenterComment on above:Performed By: #### BMP #### [facility] [address] [place] [address] Dr. Kelly LiangGFR-AF JAPANESE>60Normal>=60The [facility] CenterComment on above:Performed By: #### BMP #### [facility] [address] [place] [address] Dr. Kelly LiangGFR-NON AF JAPANESE>60Normal>=60The [facility] CenterComment on above:Performed By: #### BMP #### [facility] [address] [place] [address] Dr. Kelly MukherjeeGlucose [Mass/Vol]146 mg/dLCritically qeoa49-679QvtTogus Va Medical CenterComment on above:Performed By: #### BMP #### [facility] [address] [place] [address] Dr. Kelly MukherjeePotassium [Moles/Vol]4.1 mmol/LNormal3.5-5.1[facility] Comment on above:Performed By: #### BMP #### [facility] [address] [place] [address] Dr. Kelly MukherjeeSodium [Moles/Vol]142 mmol/NMdolgn028-128CesTogus Va Medical Center Comment on above:Performed By: #### BMP #### [facility] [address] [place] [address] Dr. Kelly Bain nitrogen [Mass/Vol]24.0 mg/dLCritically high7.0-18.0[facility] Medical CenterComment on above:Performed By: #### BMP #### [facility] [address] [place] [address] Dr. Kelly Bain nitrogen/Creatinine [Mass ratio]24.5 mg/mgNoKnox Community HospitalComment on above:Performed By: #### BMP #### [facility] [address] [place] [address] Dr. Kelly Gallagher [id number] Coag (PPP) [Relative time]1.06 {INR} NormalTogus Va Medical CenterComment on above:Performed By: #### CVDTBH #### [facility] [address] [place] [address] Dr. Kelly Godoy GUIDELINESSEE BELOWSumma HealthComment on above:Result Comment: DESIRED INR: 2.0 - 3.0 CONDITIONS NOT LISTED BELOW 2.5 - 3.5 FOR PROSTHETIC HEART VALVE REPLACEMENT 2.5 - 3.5 RECURRENT THROMBOSIS Performed By: #### CVDTBH #### [facility] [address] [place] [address] Dr. Kelly Lui Coag (PPP) [Time]11.4 sNormal9.0-11.6ThAdams County Hospital Comment on above:Performed By: #### CVDTBH #### [facility] [address] [place] [address] Dr. Kelly Mayer 82-73-1754lBDZ Coag (Bld) [Time]24.5 uPtrwpl12.3-36.2The [facility] CenterComment on above:Performed By: #### CVDTBH #### [facility] [address] [place] [address] Dr. Kelly Rajput, HIGH SENSITIVITYon 40-08-4089CAWRGO7.1 pg/mLNormal 4.0-76.1The [facility] CenterComment on above:Result Comment: CUT-OFF POINTS HAVE BEEN ESTABLISHED BASED ON THE FOURTH UNIVERSAL DEFINITIONS OF MYOCARDIAL INFARCTION. THE UPPER REFERENCE LIMIT (URL) OF TROPONIN, DEFINED THE 99TH PERCENTILE OF cTnI DISTRIBUTION IN A REFERENCE POPULATION, HAS BEEN CONFIRMED THE DECISION THRESHOLD FOR MS DIAGNOSIS.Performed By: #### CVDTBH #### [facility] [address] [place] [address] Dr. Kelly MukherjeeXR CHEST 1 Von [id number] CHEST 1 VEXAM: XR CHEST 1 V [...] Electronically authenticated by: SYLVESTER BARBOUR Date: 2022-10-04 15:31Summa HealthCNPNon [id number] (HEMASA) BRIAN MEEHAN ([id number]) 1945 M Date Time Provider Department 09/01/22 [...] 05/21/2014 Encounter Status:Closed by ROLANDO KAY on 09/01/22NormalCUniversity [facility] W Auto Differential panel (Bld)on 65-05-2538Yqoalyade (Bld) [#/Vol] 10*3/uLNormal<0.11CDelaware County HospitalComselect specialty hospital-[facility] on above:Order Comment: Specimen Type: BLOOD SPECIMEN Ordering Facility: [facility] Address: [address] [address]Performed By: #### 89816-5 #### [facility] CLIA [id number] [address] [place] [address]Uhmvikysx/100 WBC (Bld)0.5 %NormalGreen Cross Hospital Comment on above:Order Comment: Specimen Type: BLOOD SPECIMEN Ordering Facility: [facility] Address: [address] [place], [place] [address]Performed By: #### 93075-8 #### [facility] CLIA [id number] [address] [place] [address]Fbdsashlanae cell count method Nom (Bld)AutoNormalCWexner Medical Center on above:Order Comment: Specimen Type: BLOOD SPECIMEN Ordering Facility: [facility] Address: [address] [address]Performed By: #### 19829-2 #### [facility] CLIA [id number] [address] [place] [address] [place] [address]Feblnprzfjn (Bld) [#/Vol]0.08 10*3/uLNormal<0.46[facility] on above:Order Comment: Specimen Type: BLOOD SPECIMEN Ordering Facility: [facility] Address: [address] [place], [place] [address]Performed By: #### 88453-7 #### [facility] CLIA [id number] [address], [place] [address]Qapazjncyix/100 WBC (Bld)2.1 %NormalGreen Cross Hospital Comment on above:Order Comment: Specimen Type: BLOOD SPECIMEN Ordering Facility: [facility] Address: [address] [place], [place] [address]Performed By: #### 87206-1 #### [facility] CLIA [id number] [address], [place] [address]Tangeqmpmpc distribution width (RBC) [Ratio]15.9 %High 11.5-15.0[facility] on above:Order Comment: Specimen Type: BLOOD SPECIMEN Ordering Facility: [facility] Address: [address] [place], [place] [address]Performed By: #### 59040-8 #### [facility] CLIA [id number] [address], [place] [address]Xrmwvkgckw (Bld) [Volume fraction]33.5 %Low39.0-51.0[facility] on above:Order Comment: Specimen Type: BLOOD SPECIMEN Ordering Facility: [facility] Address: [address] [place], [place] [address]Performed By: #### 03446-1 #### [facility] CLIA [id number] [address] [place] [address]Zlksbytnmx (Bld) [Mass/Vol]11.4 g/dLLow13.0-17.0[facility] on above:Order Comment: Specimen Type: BLOOD SPECIMEN Ordering Facility: [facility] Address: [address] [place], [place] [id number] By: #### 51536-7 #### [facility] CLIA [id number] [address] [place] [address]Tdciwvut granulocytes (Bld) [#/Vol]10*3/uLNormal<0.10[facility] on above:Order Comment: Specimen Type: BLOOD SPECIMEN Ordering Facility: [facility] Address: [address] [address]Performed By: #### 97574-9 #### [facility] CLIA [id number] [address] [place] [address]Lomqhdtl granulocytes/100 WBC (Bld)0.3 %NormalBluffton Hospital on above:Order Comment: Specimen Type: BLOOD SPECIMEN Ordering Facility: [facility] Address: [address] [address]Performed By: #### 59937-6 #### [facility] CLIA [id number] [address] [place] [address]Wpsbtcojghb (Bld) [#/Vol]0.60 10*3/uLLow1.00-4.00[facility] on above:Order Comment: Specimen Type: BLOOD SPECIMEN Ordering Facility: [facility] Address: [address] [place], [place] [address]Performed By: #### 26254-8 #### [facility] CLIA [id number] [address] [place] [address]Brguqwcvtct/100 WBC (Bld)16.1 %NormalBluffton Hospital on above:Order Comment: Specimen Type: BLOOD SPECIMEN Ordering Facility: [facility] Address: [address] [place], [place] [address]Performed By: #### 86789-4 #### [facility] CLIA [id number] [address] [place] [address]SZI (RBC) [Entitic mass]33.3 gdHznsxy80.0-34.0[facility] on above:Order Comment: Specimen Type: BLOOD SPECIMEN Ordering Facility: [facility] Address: [address] [place], [place] [address]Performed By: #### 56793-5 #### [facility] CLIA [id number] [address] [place] [address]HPYI (RBC) [Mass/Vol]34.0 g/dIIhezlc49.5-36.0[facility] on above:Order Comment: Specimen Type: BLOOD SPECIMEN Ordering Facility: [facility] Address: [address] [place], [place] [address]Performed By: #### 25644-0 #### [facility] CLIA [id number] [address] [place] [address]WRI (RBC) [Entitic vol]98.0 nKOetsql00.0-100.0[facility] on above:Order Comment: Specimen Type: BLOOD SPECIMEN Ordering Facility: [facility] Address: [address] [place], [place] [address]Performed By: #### 52249-4 #### [facility] CLIA [id number] [address] [place] [address]Trybhcwwa (Bld) [#/Vol]0.26 10*3/uLNormal<0.87[facility] on above:Order Comment: Specimen Type: BLOOD SPECIMEN Ordering Facility: [facility] Address: [address] [place], [place] [address]Performed By: #### 21823-8 #### [facility] CLIA [id number] [address] [place] [address]Tibgaubmd/100 WBC (Bld)7.0 %NormalCleUniversity [facility]als [facility] Comment on above:Order Comment: Specimen Type: BLOOD SPECIMEN Ordering Facility: [facility] Address: [address] [place], [place] [address]Performed By: #### 47014-1 #### [facility] CLIA [id number] [address], [place] [address]Gdkmljugsmc (Bld) [#/Vol]2.76 10*3/uLNormal1.45-7.50[facility] on above:Order Comment: Specimen Type: BLOOD SPECIMEN Ordering Facility: [facility] Address: [address] [place], [place] [address]Performed By: #### 76034-8 #### [facility] CLIA [id number] [address], [place] [address]Leprtctghtm/100 WBC (Bld)74.0 %NormalBluffton Hospital on above:Order Comment: Specimen Type: BLOOD SPECIMEN Ordering Facility: [facility] Address: [address] [place], [place] [address]Performed By: #### 32015-5 #### [facility] CLIA [id number] [address] [place] [address]Kgsxbxxgc RBC (Bld) [#/Vol]10*3/uLNormal<0.01[facility] on above:Order Comment: Specimen Type: BLOOD SPECIMEN Ordering Facility: [facility] Address: [address] [place], [place] [address]Performed By: #### 42602-5 #### [facility] CLIA [id number] [address] [place] [address]Grgrkfhcp RBC/100 WBC (Bld) [Ratio]0.0 /100 WBCNormalCWexner Medical Center on above:Order Comment: Specimen Type: BLOOD SPECIMEN Ordering Facility: [facility] Address: [address] [place], [place] [address]Performed By: #### 41772-6 #### [facility] CLIA [id number] [address], [place] [address]Gerelreo mean volume (Bld) [Entitic vol]9.7 fLNormal9.0-12.7 [facility] ClevelandComment on above:Order Comment: Specimen Type: BLOOD SPECIMEN Ordering Facility: [facility] Address: [address] [place], [place] [address]Performed By: #### 16304-6 #### [facility] CLIA [id number] [address] [place] [address] 327[address]Zlztyoyye (Bld) [#/Vol]81 10*3/kIQov633-879BobxkutxoBluffton Hospital on above:Order Comment: Specimen Type: BLOOD SPECIMEN Ordering Facility: [facility] Address: [address] [place], [place] [address]Result Comment: Sample checked for clotPerformed By: #### 58157-5 #### [facility] CLIA [id number] [address] [place] [address] 19887SEO (Bld) [#/Vol]3.42 10*6/uLLow4.20-6.00[facility] on above:Order Comment: Specimen Type: BLOOD SPECIMEN Ordering Facility: [facility] Address: [address] [place], [place] [address]Performed By: #### 85155-3 #### [facility] CLIA [id number] [address] [place] [address] 25966WUY (Bld) [#/Vol]3.73 10*3/uLNormal3.70-11.00[facility] on above:Order Comment: Specimen Type: BLOOD SPECIMEN Ordering Facility: [facility] Address: [address] [place], [place] [address]Performed By: #### 68749-7 #### [facility] CLIA [id number] [address] [place] [address] 18897Qfbsuxenj (Bld) [#/Vol]<0.11 k/uLTrihealth Mccullough-Hyde Memorial HospitalBasophils/100 WBC (Bld)0.5 %[facility] HospitalDifferential cell count method Nom (Bld)Auto [facility] HospitalEosinophils (Bld) [#/Vol]0.08 10*3/uL<0.46 k/uLTrihealth Mccullough-Hyde Memorial Hospital Eosinophils/100 WBC (Bld)2.1 %[facility] Memorial HospitalErythrocyte distribution width (RBC) [Ratio]15.9 %High11.5 - 15.0 %[facility] HospitalHematocrit (Bld) [Volume fraction]33.5 %Low39.0 - 51.0 %[facility] HospitalHemoglobin (Bld) [Mass/Vol]11.4 g/dLLow13.0 - 17.0 g/dLTrihealth Mccullough-Hyde Memorial HospitalImmature granulocytes (Bld) [#/Vol]<0.10 k/uLTrihealth Mccullough-Hyde Memorial HospitalImmature granulocytes/100 WBC (Bld)0.3 %[facility] Lymphocytes (Bld) [#/Vol]0.60 10*3/uLLow1.00 - 4.00 k/uLTrihealth Mccullough-Hyde Memorial Hospital Lymphocytes/100 WBC (Bld)16.1 %[facility] CenterH (RBC) [Entitic mass]33.3 pg 26.0 - 34.0 pgClevelUnited HospitalHC (RBC) [Mass/Vol]34.0 g/dL30.5 - 36.0 g/dL [facility] CenterV (RBC) [Entitic vol]98.0 fL80.0 - 100.0 fLClevelUniversity Hospitals Ahuja Medical Center Monocytes (Bld) [#/Vol]0.26 10*3/uL<0.87 k/uLTrihealth Mccullough-Hyde Memorial HospitalMonocytes/100 WBC (Bld)7.0 %[facility] Memorial HospitalNeutrophils (Bld) [#/Vol]2.76 10*3/uL1.45 - 7.50 k/uL [facility] HospitalNeutrophils/100 WBC (Bld)74.0 %[facility] HospitalNucleated RBC (Bld) [#/Vol]<0.01 k/uLTrihealth Mccullough-Hyde Memorial HospitalNucleated RBC/100 WBC (Bld) [Ratio]0.0 /100 WBCTrihealth Mccullough-Hyde Memorial HospitalPlatelet mean volume (Bld) [Entitic vol]9.7 fL9.0 - 12.7 fLClevelecu health beaufort hospital ClinicPlatelets (Bld) [#/Vol]81 10*3/iABjr387 - 400 k/uLTrihealth Mccullough-Hyde Memorial HospitalRBC (Bld) [#/Vol]3.42 10*6/uLLow4.20 - 6.00 m/uLTrihealth Mccullough-Hyde Memorial HospitalWBC (Bld) [#/Vol]3.73 10*3/uL3.70 - 11.00 /[facility] Barberton CampusCNOVSPon 62-59-1051XVYIAX Visit (SP) Office (HE[place]AS[place]) ZORANBRIAN ([id number]) 1945 M Date Time Provider Department 08/30/22 3:00 PM TRICIA CRESPO During your visit today, we recorded the following information about you: Temperature Pulse Respiration Blood pressure 97.7 degrees 59/minute 18/minute 158/59 Weight Height 73.6 kg 1.703 m Tricia Crespo MD 08/30/2022 3:09 PM Signed Patient: Brian Kilgorez Location: [facility] : 1945 Attending Physician: Dr. Vazquez Quinonez [...] no distress, pl (more content not included)... NormalGreen Cross HospitalComprehensive metabolic 2000 panelon 08-30-2022 Albumin [Mass/Vol]4.5 g/dLNormal3.9-4.9CWexner Medical Center on above:Order Comment: Specimen Type: BLOOD SPECIMEN Ordering Facility: [facility] Address: [address] [place], [place] [address]Performed By: #### 2532-0, 80086-9 #### [facility] CLIA [id number] [address] [place] [address] [id number] [Catalytic activity/Vol]86 U/GLzrqob82-448QfbmcnydwBluffton Hospital on above:Order Comment: Specimen Type: BLOOD SPECIMEN Ordering Facility: [facility] Address: [address] [place], [place] [address]Performed By: #### 2532-0, 97892-6 #### [facility] CLIA [id number] [address] [place] [address] 41943WLG [Catalytic activity/Vol]15 U/BIzasda49-47AtfttpjvqBluffton Hospital on above:Order Comment: Specimen Type: BLOOD SPECIMEN Ordering Facility: [facility] Address: [address] [place], [place] [address]Performed By: #### 2532-0, 79054-4 #### [facility] CLIA [id number] [address] [place] [address] 42313Qwtji gap [Moles/Vol]8 mmol/LLow9-18[facility] Comment on above:Order Comment: Specimen Type: BLOOD SPECIMEN Ordering Facility: [facility] Address: [address] [place], [place] [address]Performed By: #### 2532-0, #### [facility] CLIA [id number] [address] [place] [address] 61430SAL [Catalytic activity/Vol]16 U/BBlcgjc23-55OvwpnnecuGreen Cross HospitalComment on above:Order Comment: Specimen Type: BLOOD SPECIMEN Ordering Facility: [facility] Address: [address] [place], [place] [address]Performed By: #### 2532-0, #### [facility] CLIA [id number] [address] [place] [address] 87737Uhjabcadt [Mass/Vol]0.5 mg/dLNormal0.2-1.3CDelaware County HospitalComment on above:Order Comment: Specimen Type: BLOOD SPECIMEN Ordering Facility: [facility] Address: [address] [place], [place] [address]Performed By: #### 2532-0, #### [facility] CLIA [id number] [address] [place] [address] 57698Urrmlxh [Mass/Vol]9.5 mg/dLNormal8.5-10.2CDelaware County HospitalComselect specialty hospital[facility] on above:Order Comment: Specimen Type: BLOOD SPECIMEN Ordering Facility: [facility] Address: [address] [place], [place] [address]Performed By: #### 2532-0, 79297-2 #### [facility] CLIA [id number] [address] [place] [address] 82634Bajvewkh [Moles/Vol]110 mmol/DPugt64-839UcnobzcdgBluffton Hospital on above:Order Comment: Specimen Type: BLOOD SPECIMEN Ordering Facility: [facility] Address: [address] [place], [place] [phone] By: #### 2532-0, #### [facility] CLIA [id number] [address] [place] [address] 81631OH3 [Moles/Vol]30 mmol/BTwbmcg19-93RdtvpkyktGreen Cross Hospital Comment on above:Order Comment: Specimen Type: BLOOD SPECIMEN Ordering Facility: [facility] Address: [address] [place], [place] [address]Performed By: #### 2532-0, #### [facility] CLIA [id number] [address] [place] [address] 58649Naicoxzqha [Mass/Vol]0.93 mg/dLNormal0.73-1.22[facility] on above:Order Comment: Specimen Type: BLOOD SPECIMEN Ordering Facility: [facility] Address: [address] [place], [place] [address]Performed By: #### 2532-0, #### [facility] CLIA [id number] [address] [place] [address] 32254RBCIXLHND GLOMERULAR FILTRATION RATE85 mL/min/1.73m???Normal >=60[facility] on above:Order Comment: Specimen Type: BLOOD SPECIMEN Ordering Facility: [facility] Address: [address] [place], [place] [phone] Comment: Estimated Glomerular Filtration Rate (eGFR) is [...] accurately reflect actual GFR.Performed By: #### 2532-0, #### [facility] CLIA [id number] [address] [place], [place] [address]Jhasitg [Mass/Vol]86 mg/lWMmyqhp26-76GexqlthusBluffton Hospital on above:Order Comment: Specimen Type: BLOOD SPECIMEN Ordering Facility: [facility] Address: [address] [place], [place] [address]Result Comment: The [place] [employer] (ADA) provides guidance for cutoff [...] Standards of Medical Care in Diabetes 2016, [place] [employer]. Diabetes Care. 2016.39(Suppl 1).Performed By: #### 2532-0, 41447-8 #### [facility] CLIA [id number] [address] [place], [place] [address]Nyithquye [Moles/Vol]4.3 mmol/LNormal3.7-5.1CWexner Medical Center on above:Order Comment: Specimen Type: BLOOD SPECIMEN Ordering Facility: [facility] Address: [address] [place], [place] [address]Performed By: #### 2532-0, #### [facility] CLIA [id number] [address] [place], [place] [address]Pprrriz [Mass/Vol]6.4 g/dLNormal6.3-8.0[facility] on above:Order Comment: Specimen Type: BLOOD SPECIMEN Ordering Facility: [facility] Address: [address] [place], [place] [address]Performed By: #### 2532-0, 74952-3 #### [facility] CLIA [id number] [address] [place], [place] [address]Mcmrrw [Moles/Vol]148 mmol/PKvzs643-373HclczbmhpBluffton Hospital on above:Order Comment: Specimen Type: BLOOD SPECIMEN Ordering Facility: [facility] Address: [address] [place], [place] [address]Performed By: #### 2532-0, 26591-2 #### [facility] CLIA [id number] [address] [place] [address] 27963Xobg nitrogen [Mass/Vol]24 mg/dLNormal9-24[facility] on above:Order Comment: Specimen Type: BLOOD SPECIMEN Ordering Facility: [facility] Address: [address] [place], [place] [address]Performed By: #### 2532-0, 89114-3 #### [facility] CLIA [id number] [address] [place] [address] 02762Bsikgkf [Mass/Vol]4.5 g/dL3.9 - 4.9 g/dLCliff ClinicALP [Catalytic activity/Vol]86 U/L38 - 113 U/LCleveland ClinicALT [Catalytic activity/Vol]15 U/L10 - 54 U/LCleveland ClinicAnion gap [Moles/Vol]8 mmol/LLow9 - 18 mmol/LCleveland ClinicAST [Catalytic activity/Vol]16 U/L14 - 40 U/L [facility] HospitalBilirubin [Mass/Vol]0.5 mg/dL0.2 - 1.3 mg/dLTrihealth Mccullough-Hyde Memorial Hospital Calcium [Mass/Vol]9.5 mg/dL8.5 - 10.2 mg/dLCliff ClinicChloride [Moles/Vol] 110 mmol/LHigh97 - 105 mmol/LCleveland ClinicCO2 [Moles/Vol]30 mmol/L22 - 30 mmol/LCleveland ClinicCreatinine [Mass/Vol]0.93 mg/dL0.73 - 1.22 mg/dLTrihealth Mccullough-Hyde Memorial HospitalEstimated Glomerular Filtration Rate85 mL/min/1.73m>=60 mL/min/1.73m [facility] HospitalGlucose [Mass/Vol]86 mg/dL74 - 99 mg/dLCleveland ClinicPotassium [Moles/Vol]4.3 mmol/L3.7 - 5.1 mmol/LCDelaware County HospitalProtein [Mass/Vol]6.4 g/dL 6.3 - 8.0 g/dLRiverside Methodist Hospitalodium [Moles/Vol]148 mmol/BDkba371 - 144 mmol/L [facility] HospitalUrea nitrogen [Mass/Vol]24 mg/dL9 - 24 mg/dLTrihealth Mccullough-Hyde Memorial Hospital Ferritin SerPl-mCncon 53-40-3841Zymwgnoc [Mass/Vol]121.0 ng/dYKpnhau45.3-565.7 [facility] on above:Order Comment: Specimen Type: BLOOD SPECIMEN Ordering Facility: [facility] Address: [address] [place], [place] [address]Performed By: #### 64868-1, 2132-06, 2276-01 #### [facility] CLIA [id number] [address] [place] [address] [place] OF AMERICAIron and Iron binding capacity panelon 10-33-7258Jqcl [Mass/Vol]100 ug/vXBjixta34-791NyztzsauoBluffton Hospital on above:Order Comment: Specimen Type: BLOOD SPECIMEN Ordering Facility: [facility] Address: [address] [place], [place] [address]Performed By: #### 38359-2, 2132-06, 2276-01 #### [facility] CLIA [id number] [address] [place] [address] [place] OF AMERICAIron binding capacity [Mass/Vol]287 ug/xSRqjzqo713-026ErirpmjsmBluffton Hospital on above:Order Comment: Specimen Type: BLOOD SPECIMEN Ordering Facility: [facility] Address: [address] [place], [place] [address]Performed By: #### 81347-9, 2132-06, 2276-01 #### [facility] CLIA [id number] [address] [place] [address] [place] OF AMERICAIron/TIBC [Molar ratio]34.8 %Nxopxy01.0-57.0[facility] on above:Order Comment: Specimen Type: BLOOD SPECIMEN Ordering Facility: [facility] Address: [address] [place], [place] [address]Performed By: #### 11057-7, 2132-06, 2276-01 #### [facility] CLIA [id number] [address] [place] [address] [place] AMERICALD LACTATE DEHYDROon 53-54-0476GFK [Catalytic activity/Vol]180 U/L135 - 225 U/LCleveland [facility] Onamia HospitalLDH SerPl-cCncon 56-80-6912BVZ [Catalytic activity/Vol]180 U/LPgvgaq426-515ZziwudfwaBluffton Hospital on above:Order Comment: Specimen Type: BLOOD SPECIMEN Ordering Facility: [facility] Address: [address] [place], [place] [address]Performed By: #### 2532-0, 37095-2 #### [facility] CLIA [id number] [address] [place] [address] 77191Rjm B12 SerPl-mCncon 10-42-7120Ruenaqztw (Vitamin B12) [Mass/Vol]468 pg/yFYjeupm823-4134CukrsoxqiWexner Medical Center on above: Order Comment: Specimen Type: BLOOD SPECIMEN Ordering Facility: [facility] Address: [address] [place], [place] [address]Performed By: #### 25007-5, 2132-06, 2276-01 #### [facility] CLIA [id number] [address] [place], [place] [address] [place] OF AMERICACULTURE BLOODon 05-08-2022 Microscopic examination of blood, [...] <=10 S F Oxacillin <=0.25 S FNormalThe [facility] Cleveland Medical CenterComment on above:Performed By: #### POCGLUC #### [facility] [address] [place] [address] Dr. Kelly Gale CULTURE ID PANELon 05-03-2022. baumanniiNot detectedNormal NOT DETECTEDThe [facility] Medical CenterComment on above:Performed By: #### BCID2 #### [facility] [address] [place] [address] Dr. Kelly Christine fragilisNot detectedNormalNOT DETECTEDTogus Va Medical CenterComselect [facility] on above:Performed By: #### BCID2 #### [facility] [address] [place] [address] Dr. Kelly Ornelas CONTROLSPASSCleveland Clinic Hillcrest HospitalComselect specialty hospital[facility] on above: Performed By: #### BCID2 #### [facility] [address] [place] [address] Dr. Kelly OrnelasBTHDJAD CULTURE BOTTLE INFORMATIONNoKnox Community HospitalComment on above:Performed By: #### BCID2 #### [facility] [address] [place] [address] Dr. Kelly OrnelasHnkooVBKHRX9ZHBGEUXOXYABA RESISTANCE GENESSumma Health Comment on above:Performed By: #### BCID2 #### [facility] [address] [place] [address] Dr. Kelly OrnelasHD2SEE [facility] City Medical CenterComment on above: Result Comment: Note: Antimicrobial resitance can occur via multiple mechanisms. A Not Detected result for the FilmArray antomicrobial resistance gene assays does not indicate antimicrobial susceptibility. Subculturing is required for species identification and susceptibility testing of isolates.Performed By: #### BCID2 #### [facility] [address] [place] [address] Dr. Kelly OrnelasPcankTNTXDQ1BttzdvvgZknhfqLtv [facility] HospitalComment on above: Performed By: #### BCID2 #### [facility] [address] [place] [address] Dr. Kelly OrnelasYgknvLPIFLO7DukgaphcWiryaxXwq [facility]vue HospitalComment on above: Performed By: #### BCID2 #### [facility] [address] [place] [address] Dr. Kelly OrnelasChxskLDQLHE1IDBATTroveyCcnSumma HealthComment on above:Performed By: #### BCID2 #### [facility] [address] [place] [address] Dr. Kelly Arzola Set:Set 2NormalThe [facility] Cleveland Medical CenterComment on above: Performed By: #### BCID2 #### [facility] [address] [place] [address] Dr. Kelly Arzola:AerobicSelect Medical Cleveland Clinic Rehabilitation Hospital, Beachwoodment on above: Performed By: #### BCID2 #### [facility] [address] [place] [address] Dr. Kelly Churchill. neoformans/gattiiNot detectedNormalNOT DETECTEDThe [facility] on above:Performed By: #### BCID2 #### [facility] [address] [place] [address] Dr. Kelly Li albicansNot detectedNormalNOT DETECTEDThe [facility] Medical CenterComment on above:Performed By: #### BCID2 #### [facility] [address] [place] [address] Dr. Kelly Li aurisNot detectedNormalNOT DETECTEDThe [facility] on above:Performed By: #### BCID2 #### [facility] [address] [place] [address] Dr. Kelly Li glabrataNot detectedNormalNOT DETECTEDThe [facility]ima HospitalComment on above:Performed By: #### BCID2 #### [facility] [address] [address] [address] Kelly MoralesuseiNot detectedNormalNOT DETECTEDThe [facility] Comment on above:Performed By: #### BCID2 #### [facility] [address] [address] [address] Kelly Li ParapsilosisNot detectedNormalNOT DETECTEDThe [facility] CenterComment on above:Performed By: #### BCID2 #### [facility] [address] [address] [address] Kelly Li TropicalisNot detectedNormalNOT DETECTEDThe [facility] Medical CenterComselect specialty hospital[facility] on above:Performed By: #### BCID2 #### [facility] [address] [address] [address] Kelly MukherjeeCTX-M Resistant GeneNot ApplicableNormalNOT DETECTEDThe [facility] CenterComment on above:Performed By: #### BCID2 #### [facility] [address] [address] [address] Kelly Liang. Cloacae complexNot detectedNormalNOT DETECTEDThe [facility] Medical CenterComselect specialty hospital[facility] on above:Performed By: #### BCID2 #### [facility] [address] [address] [address] Kelly Liang. faecalisNot detectedNormalNOT DETECTEDThe [facility] Comment on above:Performed By: #### BCID2 #### [facility] [address] [address] [address] Kelly Christie faeciumNot detectedNormalNOT DETECTEDThe [facility] Comment on above:Performed By: #### BCID2 #### [facility] [address] [address] [address] Kelly LiangnterobacteriaceaeNot detectedNormalNOT DETECTEDThe [facility] CenterComselect specialty [facility] on above:Performed By: #### BCID2 #### [facility] [address] [address] [address] Kelly Leonecherichia coliNot detectedNormalNOT DETECTEDThe [facility] CenterComment on above:Performed By: #### BCID2 #### [facility] [address] [address] [address] Kelly Song. influenzaeNot detectedNormalNOT DETECTEDThe [facility] Comment on above:Performed By: #### BCID2 #### [facility] [address] [address] [address] Kelly Mauriec Resistant GeneNot ApplicableNormalNOT DETECTEDThe [facility] CenterComment on above:Performed By: #### BCID2 #### [facility] [address] [address] [address] Kelly Blanc. oxytocaNot detectedNormalNOT DETECTEDThe [facility] Comment on above:Performed By: #### BCID2 #### [facility] [address] [address] [address] Kelly Blanc. pneumoniaeNot detectedNormalNOT DETECTEDThe [facility] Comment on above:Performed By: #### BCID2 #### [facility] [address] [address] [address] Kelly Membrenoella aerogenesNot detectedNormalNOT DETECTEDThe [facility] CenterComment on above:Performed By: #### BCID2 #### [facility] [address] [address] [address] Kelly ArrietaC Resistant GeneNot ApplicableNormalNOT DETECTEDThe [facility] CenterComselect specialty hospital[facility] on above:Performed By: #### BCID2 #### [facility] [address] [address] [address] Kelly Quinteros. monocytogenesNot detectedNormalNOT DETECTEDThe [facility] CenterComment on above:Performed By: #### BCID2 #### [facility] [address] [address] [address] Kelly MukherjeeMcr-1 Resistant GeneNot ApplicableNormalNOT DETECTEDThe [facility] CenterComselect specialty [facility] on above:Performed By: #### BCID2 #### [facility] [address] [place] [address] Dr. Kelly GaonaA/CNot ApplicableNormalNOT DETECTEDThe [facility] Comment on above:Performed By: #### BCID2 #### [facility] [address] [address] [address] Kelly King/Rene MREJNot ApplicableNormalNOT DETECTEDThe [facility] Comment on above:Performed By: #### BCID2 #### [facility] [address] [address] [address] Kelly Ronquillo. meningitidisNot detectedNormalNOT DETECTEDThe [facility] CenterComment on above:Performed By: #### BCID2 #### [facility] [address] [address] [address] Kelly Yu Resistant GeneNot ApplicableNormalNOT DETECTEDThe [facility] CenterComment on above:Performed By: #### BCID2 #### [facility] [address] [place] [address] Dr. Kelly MukherjeeIribgRez-04-qvrfFlf ApplicableNormalNOT DETECTEDTogus Va Medical Center Comment on above:Performed By: #### BCID2 #### [facility] [address] [place] [address] Dr. Kelly MukherjeeProteusNot detectedNormalNOT DETECTEDThe [facility] CenterComment on above:Performed By: #### BCID2 #### [facility] [address] [place] [address] Dr. Kelly Downs. aeruginosaNot detectedNormalNOT DETECTEDThe [facility] CenterComment on above:Performed By: #### BCID2 #### [facility] [address] [place] [address] Dr. Kelly Perkins. maltophiliaNot detectedNormalNOT DETECTEDTogus Va Medical Center Comment on above:Performed By: #### BCID2 #### [facility] [address] [place] [address] Dr. Kelly MukherjeeSalmonellaNot detectedNormalNOT DETECTEDTogus Va Medical Center Comment on above:Performed By: #### BCID2 #### [facility] [address] [place] [address] Dr. Kelly Winnatia marcescensNot detectedNormalNOT DETECTEDThe [facility] CenterComment on above:Performed By: #### BCID2 #### [facility] [address] [address] [address] Kelly Hauser:Lt HandNormalThe [facility] CenterComment on above:Performed By: #### BCID2 #### [facility] [address] [address] [address] Kelly Flynn. aureusNot detectedNormalNOT DETECTEDThe [facility] Comment on above:Performed By: #### BCID2 #### [facility] [address] [address] [address] Kelly Flynn. epidermidisNot detectedNormalNOT DETECTEDThe [facility] CenterComment on above:Performed By: #### BCID2 #### [facility] [address] [address] [address] Kelly Flynn. lugdunensisNot detectedNormalNOT DETECTEDThe [facility] CenterComment on above:Performed By: #### BCID2 #### [facility] [address] [address] [address] Kelly BynumococcusDetectedAbnormalNOT DETECTEDThe [facility] Comment on above:Performed By: #### BCID2 #### [facility] [address] [address] [address] Kelly Gonzales agalactiaeNot detectedNormalNOT DETECTEDThe [facility] CenterComselect [facility] on above:Performed By: #### BCID2 #### [facility] [address] [address] [address] Kelly Gonzales pneumoniaeNot detectedNormalNOT DETECTEDThe [facility] CenterComselect [facility] on above:Performed By: #### BCID2 #### [facility] [address] [address] [address] Kelly Gonzales pyogenesNot detectedNormalNOT DETECTEDThe [facility] CenterComselect [facility] on above:Performed By: #### BCID2 #### [facility] [address] [address] [address] Kelly ColliertococcusNot detectedNormalNOT DETECTEDThe [facility] Comment on above:Performed By: #### BCID2 #### [facility] [address] [place] [address] Dr. Kelly Bedolla/Suraj Resist. GeneNot ApplicableNormalNOT DETECTEDThe [facility] on above:Performed By: #### BCID2 #### [facility] [address] [place] [address] Dr. Kelly Paez Resistant GeneNot ApplicableNormalNOT DETECTEDThe [facility] CenterComment on above:Performed By: #### BCID2 #### [facility] [address] [place] [address] Dr. Kelly Marquez AUTO DIFFon [id number] #0.0 103/ulNormal0.0-0.1The [facility] on above:Performed By: #### CBC #### [facility] [address] [place] [address] Dr. Kelly MukherjeeBasophils/100 WBC (Bld)0.0 %Critically low0.2-2.0The [facility] on above:Performed By: #### CBC #### [facility] [address] [place] [address] Dr. Kelly Bernard #0.0 103/ulNormal0.0-0.7The [facility] on above: Performed By: #### CBC #### [facility] [address] [place] [address] Dr. Kelly Liangosinophils/100 WBC (Bld)0.0 %Critically low0.9-7.0The [facility] Hospitalment on above:Performed By: #### CBC #### [facility] [address] [place] [address] Dr. Kelly Liangrythrocyte distribution width (RBC) [Ratio]15.5 %Critically high 11.0-15.0The [facility] on above:Performed By: #### CBC #### [facility] [address] [place] [address] Dr. Kelly MukherjeeHematocrit (Bld) [Volume fraction]25.3 %Critically low42.0-54.0 The [facility] HospitalComment on above:Performed By: #### CBC #### [facility] [facility] [address] [address] [address] Kelly MukherjeeHemoglobin (Bld) [Mass/Vol]8.8 g/dLCritically low14.0-18.0The [facility] CenterComment on above:Performed By: #### CBC #### [facility] [address] [address] [address] Kelly Craig #0.00 10e3/ulNormal0.00-0.03The [facility] CenterComment on above:Performed By: #### CBC #### [facility] [address] [place] [address] Dr. Kelly Craig %0.0 %Normal0.0-0.5The [facility] CenterComment on above: Performed By: #### CBC #### [facility] [address] [place] [address] Dr. Kelly Hay #0.2 103/ulCritically low1.2-3.8The [facility] Comment on above:Performed By: #### CBC #### [facility] [address] [address] [address] Kelly Vegahocytes/100 WBC (Bld)11.5 %Critically low20.5-60.0The [facility] CenterComment on above:Performed By: #### CBC #### [facility] [address] [address] [address] Kelly GarciaUAL DIFF REQNONormalThe [facility] CenterComment on above: Performed By: #### CBC #### [facility] [address] [address] [address] Kelly Gregg (RBC) [Entitic mass]34.1 pgCritically high25.9-34.0The [facility] CenterComment on above:Performed By: #### CBC #### [facility] [address] [place] [address] Dr. Kelly Rahman (RBC) [Mass/Vol]34.8 g/hALnpmyi17.9-35.2The [facility] CenterComment on above:Performed By: #### CBC #### [facility] [address] [address] [address] Kelly Ruiz (RBC) [Entitic vol]98.1 fLCritically high80.0-94.0The [facility] CenterComment on above:Performed By: #### CBC #### [facility] [address] [place] [address] Dr. Kelly Rodriguez #0.2 103/ulCritically low0.3-0.8The [facility] CenterComment on above:Performed By: #### CBC #### [facility] [address] [place] [address] Dr. Kelly Spiveyocytes/100 WBC (Bld)14.5 %Critically high1.7-12.0The [facility] CenterComment on above:Performed By: #### CBC #### [facility] [address] [place] [address] Dr. Kelly Alexis #1.2 103/ulCritically low1.4-6.5The [facility] CenterComment on above:Performed By: #### CBC #### [facility] [address] [place] [address] Dr. Kelly Moralesutrophils/100 WBC (Bld)74.0 %Yzbixa95.0-75.0The [facility] CenterComment on above:Performed By: #### CBC #### [facility] [address] [place] [address] Dr. Kelly Stinsonlet mean volume (Bld) [Entitic vol]10.3 fLNormal9.5-13.5The [facility] CenterComment on above:Performed By: #### CBC #### [facility] [address] [place] [address] Dr. Kelly LawrenceT59 103/ulCritically yyx391-811Dde [facility] CenterComment on above:Performed By: #### CBC #### [facility] [address] [place] [address] Dr. Kelly HernandezC2.58 106/ulCritically low4.70-6.10The [facility] HospitalComment on above:Performed By: #### CBC #### [facility] [address] [place] [address] Dr. Kelly ReisBC1.7 103/ulCritically low4.0-11.0The [facility] HospitalComment on above:Performed By: #### CBC #### [facility] [address] [place] [address] Dr. Kelly Marquez W MANUAL DIFFon [id number] LYMPH #NormalCenterville HospitalComment on above:Performed By: #### CVDTBH #### [facility] [address] [place] [address] Dr. Kelly SegundoYPICAL LYMPH %NormalCenterville HospitalComment on above: Performed By: #### CVDTBH #### [facility] [address] [place] [address] Dr. Kelly Packer #0.0 103/ulNormal0.0-0.3The [facility] HospitalComment on above:Performed By: #### CVDTBH #### [facility] [address] [place] [address] Dr. Kelly Packer %1 %Normal0-5The [facility] HospitalComment on above:Performed By: #### CVDTBH #### [facility] [address] [place] [address] Dr. Kelly Anthony #0.00 103/ulNormal0.00-0.10The [facility] HospitalComment on above:Performed By: #### CVDTBH #### [facility] [address] [place] [address] Dr. Kelly Anthony %0.0 %Critically low0.2-2.0The [facility] HospitalComment on above:Performed By: #### CVDTBH #### [facility] [address] [place] [address] Dr. Kelly Robertson #NormalThe [facility] HospitalComment on above:Performed By: #### CVDTBH #### [facility] [address] [place] [address] Dr. Kelly MukherjeeBLAST %NormalThe [facility] CenterComment on above:Performed By: #### CVDTBH #### [facility] [address] [place] [address] Dr. Kelly MukherjeeCORRECTED WBCNormal4.0-11.0The [facility] CenterComment on above: Performed By: #### CVDTBH #### [facility] [address] [place] [address] Dr. Kelly Barrientos #0.00 103/ulNormal0.00-0.70The [facility] CenterComment on above:Performed By: #### CVDTBH #### [facility] [address] [place] [address] Dr. Kelly Barrientos%0.0 %Critically low0.9-7.0The [facility] CenterComment on above:Performed By: #### CVDTBH #### [facility] [address] [place] [address] Dr. Kelly MukherjeeHCT26.7 %Critically low42.0-54.0The [facility] CenterComment on above:Performed By: #### CVDTBH #### [facility] [address] [place] [address] Dr. Kelly TejedaB9.3 g/dlCritically low14.0-18.0The [facility] CenterComment on above:Performed By: #### CVDTBH #### [facility] [address] [place] [address] Dr. Kelly Tejada #0.21 103/ulCritically low1.20-3.80The [facility] Comment on above:Performed By: #### CVDTBH #### [facility] [address] [place] [address] Dr. Kelly Tejada%13.0 %Critically low20.5-60.0The [facility] CenterComment on above:Performed By: #### CVDTBH #### [facility] [address] [place] [address] Dr. Kelly RahmanH33.9 gmWbecxr03.9-34.0The [facility] CenterComment on above: Performed By: #### CVDTBH #### [facility] [address] [address] [address] Kelly RahmanHC34.8 g/pqLytwvp39.9-35.2The [facility] HospitalComment on above:Performed By: #### CVDTBH #### [facility] [address] [address] [address] Kelly RahmanV97.4 fLCritically high80.0-94.0The [facility] CenterComment on above:Performed By: #### CVDTBH #### [facility] [address] [place] [address] Dr. Kelly Gtz #NormalThe [facility] CenterComment on above: Performed By: #### CVDTBH #### [facility] [address] [place] [address] Dr. Kelly MontielOCYTE %NormalThe [facility] CenterComment on above: Performed By: #### CVDTBH #### [facility] [address] [place] [address] Dr. Kelly Courtney#0.16 103/ulCritically low0.30-0.80The [facility] on above:Performed By: #### CVDTBH #### [facility] [address] [place] [address] Dr. Kelly Courtney%10.0 %Normal1.7-12.0The [facility] CenterComment on above: Performed By: #### CVDTBH #### [facility] [address] [place] [address] Dr. Kelly Coelho9.9 fLNormal9.5-13.5The [facility] CenterComment on above: Performed By: #### CVDTBH #### [facility] [address] [place] [address] Dr. Kelly Jerome #NormalThe [facility] CenterComment on above:Performed By: #### CVDTBH #### [facility] [address] [place] [address] Dr. Kelly KitchenOCYTE %NormalTogus Va Medical CenterComment on above:Performed By: #### CVDTBH #### [facility] [address] [place] [address] Dr. Kelly ArmendarizBCNormalThAdams County HospitalComment on above:Performed By: #### CVDTBH #### [facility] [address] [place] [address] Dr. Kelly LawrenceT61 103/ulCritically wcb341-474Utp [facility] CenterComment on above:Performed By: #### CVDTBH #### [facility] [address] [place] [address] Dr. Kelly HernandezC2.74 106/ulCritically low4.70-6.10The [facility] CenterComment on above:Performed By: #### CVDTBH #### [facility] [address] [place] [address] Dr. Kelly BlankenshipW15.6 %Critically high11.0-15.0The [facility] CenterComment on above:Performed By: #### CVDTBH #### [facility] [address] [place] [address] Dr. Kelly Olguin #1.22 103/ulCritically low1.40-6.50The [facility] on above:Performed By: #### CVDTBH #### [facility] [address] [place] [address] Dr. Kelly Olguin %76.0 %Critically high43.0-75.0T[facility] Va Medical CenterComment on above:Performed By: #### CVDTBH #### [facility] [address] [place] [address] Dr. Kelly ReisBC1.6 103/ulCritically low4.0-11.0The [facility] CenterComment on above:Performed By: #### CVDTBH #### [facility] [address] [place] [address] Dr. Kelly MukherjeeCT HEAD WO CONon [id number] HEAD WO CONEXAMINATION: CT HEAD WO CON [...] Electronically authenticated by: KIA JENNINGS Date: 2022-05-03 00:00NormProMedica Memorial HospitalCULTURE BLOODon [id number] examination of blood, cultureCulture Observations: NO GROWTH AT 5 DAYS.NormalThe [facility] CenterComment on above:Performed By: #### POCGLUC #### [facility] [address] [place] [address] Dr. Kelly MukherjeeREGENCY HOSPITAL COMPANY URINEon [id number] URINECulture Observations: HEAVY GROWTH OF MIXED SKIN TERE. NO POTENTIAL PATHOGENS SEEN.NormalThe [facility] CenterComment on above:Performed By: #### POCGLUC #### [facility] [address] [place] [address] Dr. Kelly MukherjeeCovid-19 PCR (CVDSAINT MARGAR[facility] H[facility] FOR [facility])on [id number]-CoV-2 (COVID-19) RNA ABIMBOLA+probe Ql (Unsp spec)DetectedCritically abnormalNOT DETECTEDThe [facility] CenterComment on above:Result Comment: This test is not yet approved or cleared by the [place] FDA. When there are no FDA-approved or cleared tests available, and other criteria are met, FDA can make tests available under an emergency access mechanism called an Emergency Use Authorization (EUA). The EUA for this test is supported by the [employer] of Health and Human Service's declaration that [...] longer be used).Performed By: #### CVDTBH #### [facility] [address] [address] [address] Kelly Betancourt URINE PROFILEon [id number] Ql (U)NegativeNormal NEGATIVETogus Va Medical CenterComment on above:Performed By: #### CYNTHIA UMTORIERO #### [facility] [address] [place] [address] Dr. Kelly MukherjeeClarity (U)CLEARNormalCLEARThe [facility] CenterComment on above: Performed By: #### CYNTHIA UMTORIERO #### [facility] [address] [place] [address] Dr. Kelly MukherjeeColor (U)YELLOWNormalYELLOWTogus Va Medical CenterComment on above: Performed By: #### CAITY MARIERO #### [facility] [address] [place] [address] Dr. Kelly Jett micrscopic examination will be performed if indicated. NormalThe [facility] CenterComment on above:Performed By: #### CAITY MARIERO #### [facility] [address] [place] [address] Dr. Kelly MukherjeeGlucose Ql (U)100 mg/dlAbnormalNEGATIVETogus Va Medical Center Comment on above:Performed By: #### CYNTHIA UMTORIERO #### [facility] [address] [place] [address] Dr. Kelly MukherjeeHemoglobin Ql (U)TRACE-INTACTAbnormalNEGATIVETogus Va Medical CenterComment on above:Performed By: #### CYNTHIA UMICRO #### [facility] [address] [place] [address] Dr. Kelly MukherjeeKetones Ql (U)NegativeNormalNEGATIVETogus Va Medical CenterComment on above:Performed By: #### CYNTHIA UMTOREIRO #### [facility] [address] [place] [address] Dr. Kelly MukherjeeLEUKOCYTESNegativeNormalNEGATIVEThe [facility] CenterComment on above:Performed By: #### MARIKA MARIE #### [facility] [address] [place] [address] Dr. Kelly Choetrite Ql (U)PositiveAbnormalNEGATIVEThe [facility] Comment on above:Performed By: #### MARIKA MARIE #### [facility] [address] [place] [address] Dr. Kelly MukherjeepH (U)5.5 [pH]Normal5-9The [facility] CenterComment on above: Performed By: #### MARIKA MARIE #### [facility] [address] [place] [address] Dr. Kelly MukherjeeProtein (U) [Mass/Vol]100 mg/dLAbnormalNEGATIVE/ TRACEThe [facility] CenterComment on above:Performed By: #### MARIKA MARIE #### [facility] [address] [place] [address] Dr. Kelly MukherjeeSPEC GRAVITY1.863Xccaiq3.005-<=1.025The [facility] CenterComment on above:Performed By: #### MARIKA MARIE #### [facility] [address] [place] [address] Dr. Kelly Covarrubias MICRO INDINDICATEDNormalThe [facility] CenterComment on above: Performed By: #### MARIKA MARIE #### [facility] [address] [place] [address] Dr. Kelly Changbilinogen Qn (U)0.2 {Jun'U}/dLNormal0.2 - 1.0The [facility] CenterComment on above:Performed By: #### MARIKA MARIE #### [facility] [address] [place] [address] Dr. Kelly MukherjeeLACTATE/LACTIC ACIDon 90-09-8513Dsyqryf [Moles/Vol]1.0 mmol/L Normal0.4-1.9The [facility] HospitalComment on above:Performed By: #### BMP #### [facility] [address] [place] [address] Dr. Kelly Dominguez 14(COMP METB)on 35-85-5621Dswwpcp [Mass/Vol]3.6 g/dLNormal 3.4-5.0The [facility] CenterComment on above:Performed By: #### BMP #### [facility] [address] [place] [address] Dr. Kelly MukherjeeAlbumin/Globulin [Mass ratio]1.3 {ratio}NormalThe [facility] CenterComment on above:Performed By: #### BMP #### [facility] [address] [place] [address] Dr. Kelly Spencer [Catalytic activity/Vol]95 U/JXqfljh45-542Bhb [facility] CenterComment on above:Performed By: #### BMP #### [facility] [address] [place] [address] Dr. Kelly Colon [Catalytic activity/Vol]53 U/EEjwgze29-09Skp [facility] CenterComment on above:Performed By: #### BMP #### [facility] [address] [place] [address] Dr. Kelly Cameron gap [Moles/Vol]8.7 mmol/LNormalThe [facility] CenterComment on above:Performed By: #### BMP #### [facility] [address] [place] [address] Dr. Kelly MukherjeeAST [Catalytic activity/Vol]31 U/AOywxko30-35Axq [facility] CenterComment on above:Performed By: #### BMP #### [facility] [address] [place] [address] Dr. Kelly MukherjeeBilirubin [Mass/Vol]0.4 mg/dLNormal0.2-1.0The [facility] Comment on above:Performed By: #### BMP #### [facility] [address] [place] [address] Dr. Kelly MukherjeeCalcium [Mass/Vol]8.5 mg/dLNormal8.5-10.1The [facility] Comment on above:Performed By: #### BMP #### [facility] [address] [address] [address] Kelly MukherjeeChloride [Moles/Vol]106 mmol/XGabgxu67-525Fti [facility] Comment on above:Performed By: #### BMP #### [facility] [address] [address] [address] Kelly MukherjeeCO2 [Moles/Vol]29.1 mmol/WXymzqb98.0-32.0The [facility] Comment on above:Performed By: #### BMP #### [facility] [address] [address] [address] Kelly MukherjeeCreatinine [Mass/Vol]1.07 mg/dLNormal0.70-1.30The [facility] CenterComment on above:Performed By: #### BMP #### [facility] [address] [address] [address] Mendoza ChangEGFR-AF JAPANESE>60Normal>=60The [facility] CenterComment on above:Performed By: #### BMP #### [facility] [address] [address] [address] Kelly LiangGFR-NON AF JAPANESE>60Normal>=60The [facility] CenterComment on above:Performed By: #### BMP #### [facility] [address] [address] [address] Kelly MukherjeeGlobulin (S) [Mass/Vol]2.8 g/dLNormalThe [facility] CenterComment on above:Performed By: #### BMP #### [facility] [address] [address] [address] Kelly MukherjeeGlucose [Mass/Vol]208 mg/dLCritically tkbl59-381Hcj [facility] CenterComment on above:Performed By: #### BMP #### [facility] [address] [address] [address] Kelly MukherjeePotassium [Moles/Vol]3.8 mmol/LNormal3.5-5.1The [facility] Comment on above:Performed By: #### BMP #### [facility] [address] [address] [address] Kelly MukherjeeProtein [Mass/Vol]6.4 g/dLNormal6.4-8.2The [facility] Comment on above:Performed By: #### BMP #### [facility] [address] [address] [address] Kelly MukherjeeSodium [Moles/Vol]140 mmol/PFprbfk019-015Sqn [facility] Comment on above:Performed By: #### BMP #### [facility] [address] [address] [address] Kelly MukherjeeUrea nitrogen [Mass/Vol]23.0 mg/dLCritically high7.0-18.0The [facility] CenterComment on above:Performed By: #### BMP #### [facility] [address] [address] [address] Kelly Bain nitrogen/Creatinine [Mass ratio]21.5 mg/mgNormalThe [facility] CenterComment on above:Performed By: #### BMP #### [facility] [address] [address] [address] Kelly MukherjeePROF CHEM 8 (BAS METB)on 16-92-4317Wsvmi gap [Moles/Vol]10.1 mmol/LNormalTogus Va Medical CenterComment on above:Performed By: #### BMP #### [facility] [address] [address] [address] Kelly MukherjeeCalcium [Mass/Vol]8.2 mg/dLCritically low8.5-10.1The [facility] CenterComment on above:Performed By: #### BMP #### [facility] [address] [address] [address] Kelly MukherjeeChloride [Moles/Vol]107 mmol/KHjeuwk12-503Wfp [facility] Comment on above:Performed By: #### BMP #### [facility] [address] [address] [address] Kelly MukherjeeCO2 [Moles/Vol]27.6 mmol/SPglddq11.0-32.0The [facility] Comment on above:Performed By: #### BMP #### [facility] [address] [address] [address] Kelly MukherjeeCreatinine [Mass/Vol]0.93 mg/dLNormal0.70-1.30The [facility] CenterComment on above:Performed By: #### BMP #### [facility] [address] [address] [address] Mendoza ChangEGFR-AF JAPANESE>60Normal>=60The [facility] CenterComment on above:Performed By: #### BMP #### [facility] [address] [address] [address] Kelly LiangGFR-NON AF JAPANESE>60Normal>=60The [facility] CenterComment on above:Performed By: #### BMP #### [facility] [address] [place] [address] Dr. Kelly MukherjeeGlucose [Mass/Vol]153 mg/dLCritically qhhh47-704Xlg [facility] CenterComment on above:Performed By: #### BMP #### [facility] [address] [address] [address] Kelly MukherjeePotassium [Moles/Vol]3.7 mmol/LNormal3.5-5.1[facility] Comment on above:Performed By: #### BMP #### [facility] [address] [place] [address] Dr. Kelly MukherjeeSodium [Moles/Vol]141 mmol/SPaecyt208-809Jct [facility] Comment on above:Performed By: #### BMP #### [facility] [address] [place] [address] Dr. Kelly MukherjeeUrea nitrogen [Mass/Vol]17.0 mg/dLNormal7.0-18.0The [facility] CenterComment on above:Performed By: #### BMP #### [facility] [address] [address] [address] Kelly MukherjeeUrea nitrogen/Creatinine [Mass ratio]18.3 mg/mgNormalThe [facility] CenterComment on above:Performed By: #### BMP #### [facility] [address] [address] [address] Kelly Craig MICROSCOPIC ONLYon [id number]nsDKEX SEENKettering Health Miamisburg on above:Performed By: #### CYNTHIA UMICRO #### [facility] [address] [address] [address] Kelly Pacheco identified Cx Nom (U)INDICATEDPremier Health Miami [facility] on above:Performed By: #### CYNTHIA UMICRO #### [facility] [address] [address] [address] Kelly Britton SEENNormalNONE SEENKettering Health [facility] on above:Performed By: #### CYNTHIA UMICRO #### [facility] [address] [place] [address] Dr. Kelly Esquivelystals LM Nom (Urine sed)NONE SEENNormalNONE SEENKettering Health [facility] on above:Performed By: #### CYNTHIA UMICRO #### [facility] [address] [place] [address] Dr. Mendoza ChangEpithelial cells LM Ql (Urine sed)NONE SEENNormalNONE SEEN /RARE [facility] on above:Performed By: #### CYNTHIA UMICRO #### [facility] [address] [place] [address] Dr. Kelly Ellis SEENNormalNONE SEENKettering Health [facility] on above:Performed By: #### CYNTHIA UMICRO #### [facility] [address] [address] [address] Kelly Lewis SEENAbrmal0-2[facility] on above: Performed By: #### CYNTHIA UMICRO #### [facility] [address] [place] [address] Dr. Kelly ReisBC2-5AbnormalNONE SEENKettering Health [facility] on above: Performed By: #### CYNTHIA UMICRO #### [facility] [address] [place], [place] [address] Dr. Kelly MukherjeeXR CHEST 1 Von [id number] CHEST 1 VXR CHEST 1 V 05/02/2022 [...] Electronically authenticated by: KIA JENNINGS Date: 2022-05-03 00:05[facility] HealthMRI BRAIN WO CONon [id number] BRAIN WO CONEXAMINATION: MRI BRAIN WO CON, [...] Electronically authenticated by: SHAKA BLANCO Date: 2022-04-19 20:11[facility] HealthECHOCARDIO M/2D COMPLETEon [id number] M/2D COMPLETE Patient: BRIAN MEEHAN Exam Date: 03/27/2022 : 1945 Gender:M Ordering : DR JUAN A WELSH D.O. Admission #: [id number] Family : Order #: [id number] CLICK HERE TO VIEW EXAM ECHOCARDIOGRAM REPORT [...] Area(A4C): 20.80 cm2 Left Atrium Systolic Volume(A2C): 24971 mm3 Left Atrium Systolic Volume(A4C): 21421 mm3 Mitral Valve MV E to A Ratio: 1.30 Deceleration [place]aux: 3680 mm/s2 Mitral Valve A-Wave Peak Velocity: 65.60 cm/s Mitral Valve E-Wave Peak Velocity: 84.40 cm/s Right Ventricle RV Internal Diastolic Dimension: 3.10 cm Aorta AO Root Diam: 3.30 cm Aortic Valve AoV Area (Peak Alban): 2.40 cm2 Deceleration [place]ibaux: 541 mm/s2 Pressure Half-Time: 1.59 s Peak [...] by: [place] M.D. on 03/29/2022 at 19:07[facility] STRESS/REST MULTIon 70-13-0530MI STRESS/REST MULTIPatient: BRIAN MEEHAN Exam Date: 03/09/2022 : 1945 Gender:M Ordering : DR JUAN A WELSH D.O. Admission #: [id number] Family : Order #: [id number] CLICK HERE TO VIEW EXAM RADIOLOGY REPORT [...] by: Sonam Duff M.D. on 03/10/2022 at 09:38[facility] HealthBNRe[facility] [id number] peptide B (Bld) [Mass/Vol]400.0 pg/mLNormal <=1,800.0The [facility] Hospitalment on above:Performed By: #### BMP #### [facility] [address] [place] [address] Dr. Kelly MART ADMITon [id number] [Catalytic activity/Vol]22 U/L Critically yuc53-189Gww [facility] CenterComment on above:Performed By: #### BMP #### [facility] [address] [place] [address] Dr. Kelly Clarke.MB [Mass/Vol]ng/mLNormal<=3.60The [facility] on above:Performed By: #### BMP #### [facility] [address] [place] [address] Dr. Kelly LoraOP6.8 pg/mLNormal4.0-76.1The [facility] on above:Result Comment: CUT-OFF POINTS HAVE BEEN ESTABLISHED BASED ON THE FOURTH UNIVERSAL DEFINITIONS OF MYOCARDIAL INFARCTION. THE UPPER REFERENCE LIMIT (URL) OF TROPONIN, DEFINED THE 99TH PERCENTILE OF cTnI DISTRIBUTION IN A REFERENCE POPULATION, HAS BEEN CONFIRMED THE DECISION THRESHOLD FOR MS DIAGNOSIS.Performed By: #### BMP #### [facility] [address] [place] [address] Dr. Kelly MoodyO39 ng/wWRvbnvm85-20Wos [facility]ima HospitalComment on above: Performed By: #### BMP #### [facility] [address] [place] [address] Dr. Kelly Marquez AUTO DIFFon [id number] #0.0 103/ulNormal0.0-0.1The [facility] CenterComment on above:Performed By: #### BMP #### [facility] [address] [place] [address] Dr. Kelly MukherjeeBasophils/100 WBC (Bld)0.3 %Normal0.2-2.0The [facility] Comment on above:Performed By: #### BMP #### [facility] [address] [place] [address] Dr. Kelly Bernard #0.1 103/ulNormal0.0-0.7The [facility] CenterComment on above: Performed By: #### BMP #### [facility] [address] [place] [address] Dr. Kelly Liangosinophils/100 WBC (Bld)2.0 %Normal0.9-7.0The [facility] Comment on above:Performed By: #### BMP #### [facility] [address] [place] [address] Dr. Kelly Liangrythrocyte distribution width (RBC) [Ratio]15.4 %Critically high 11.0-15.0The [facility] CenterComment on above:Performed By: #### BMP #### [facility] [address] [place] [address] Dr. Kelly MukherjeeHematocrit (Bld) [Volume fraction]31.9 %Critically low42.0-54.0 The [facility] CenterComment on above:Performed By: #### BMP #### [facility] [address] [place] [address] Dr. Kelly MukherjeeHemoglobin (Bld) [Mass/Vol]10.7 g/dLCritically low14.0-18.0The [facility] CenterComment on above:Performed By: #### BMP #### [facility] [address] [place] [address] Dr. Kelly Craig #0.01 10e3/ulNormal0.00-0.03The [facility] CenterComment on above:Performed By: #### BMP #### [facility] [address] [place] [address] Dr. Kelly Craig %0.3 %Normal0.0-0.5The [facility] CenterComment on above: Performed By: #### BMP #### [facility] [address] [place] [address] Dr. Kelly Hay #0.6 103/ulCritically low1.2-3.8The [facility] Comment on above:Performed By: #### BMP #### [facility] [address] [place] [address] Dr. Kelly Vegahocytes/100 WBC (Bld)15.9 %Critically low20.5-60.0The [facility] CenterComment on above:Performed By: #### BMP #### [facility] [address] [place] [address] Dr. Kelly GarciaUAL DIFF REQNONormalThe [facility] CenterComment on above: Performed By: #### BMP #### [facility] [address] [place] [address] Dr. Kelly Gregg (RBC) [Entitic mass]33.8 hwIthfqy73.9-34.0The [facility] CenterComment on above:Performed By: #### BMP #### [facility] [address] [place] [address] Dr. Kelly Rahman (RBC) [Mass/Vol]33.5 g/wMQrbuue27.9-35.2The [facility] CenterComment on above:Performed By: #### BMP #### [facility] [address] [place] [address] Dr. Kelly Rahman (RBC) [Entitic vol]100.6 fLCritically high80.0-94.0The [facility] CenterComment on above:Performed By: #### BMP #### [facility] [address] [place] [address] Dr. Kelly Rodriguez #0.2 103/ulCritically low0.3-0.8The [facility] CenterComment on above:Performed By: #### BMP #### [facility] [address] [place] [address] Dr. Kelly Spiveyocytes/100 WBC (Bld)4.9 %Normal1.7-12.0The [facility] Comment on above:Performed By: #### BMP #### [facility] [address] [place] [address] Dr. Kelly Alexis #2.7 103/ulNormal1.4-6.5The [facility] CenterComment on above:Performed By: #### BMP #### [facility] [address] [place] [address] Dr. Kelly Moralesutrophils/100 WBC (Bld)76.6 %Critically high43.0-75.0The [facility] CenterComment on above:Performed By: #### BMP #### [facility] [address] [place] [address] Dr. Kelly Stinsonlet mean volume (Bld) [Entitic vol]10.4 fLNormal9.5-13.5The [facility] CenterComment on above:Performed By: #### BMP #### [facility] [address] [place] [address] Dr. Kelly LawrenceT72 103/ulCritically aek188-562Xdr [facility] CenterComment on above:Performed By: #### BMP #### [facility] [address] [place] [address] Dr. Kelly HernandezC3.17 106/ulCritically low4.70-6.10The [facility] CenterComment on above:Performed By: #### BMP #### [facility] [address] [place] [address] Dr. Kelly MukherjeeWBC3.5 103/ulCritically low4.0-11.0The [facility] CenterComment on above:Performed By: #### BMP #### [facility] [address] [place] [address] Dr. Kelly MukherjeeCT HEAD WO CONon [id number] HEAD WO CONEXAMINATION: CT HEAD WO CON [...] Electronically authenticated by: CELINE COLVIN Date: 2022-02-15 15:45[facility] HealthPROF 14(COMP METB)on [id number] [Mass/Vol]3.7 g/dLNormal 3.4-5.0The [facility] CenterComment on above:Performed By: #### BMP #### [facility] [address] [place] [address] Dr. Kelly MukherjeeAlbumin/Globulin [Mass ratio]1.3 {ratio}NormalThe [facility] Hospitalment on above:Performed By: #### BMP #### [facility] [address] [place] [address] Dr. Kelly Spencer [Catalytic activity/Vol]84 U/BFtmnji79-678Ogu [facility] CenterComment on above:Performed By: #### BMP #### [facility] [address] [place] [address] Dr. Kelly Colon [Catalytic activity/Vol]29 U/OXlyfbh65-25Yci [facility] Hospitalment on above:Performed By: #### BMP #### [facility] [address] [place] [address] Dr. Kelly Cameron gap [Moles/Vol]14.3 mmol/LNormalThe [facility] Comment on above:Performed By: #### BMP #### [facility] [address] [address] [address] Kelly MukherjeeAST [Catalytic activity/Vol]15 U/LMezrfz12-33Yta [facility] CenterComment on above:Performed By: #### BMP #### [facility] [address] [address] [address] Kelly MukherjeeBilirubin [Mass/Vol]0.5 mg/dLNormal0.2-1.0The [facility] Comment on above:Performed By: #### BMP #### [facility] [address] [address] [address] Kelly MukherjeeCalcium [Mass/Vol]9.0 mg/dLNormal8.5-10.1The [facility] Comment on above:Performed By: #### BMP #### [facility] [address] [address] [address] Kelly MukherjeeChloride [Moles/Vol]105 mmol/UYhpogq47-617Qkt [facility] Comment on above:Performed By: #### BMP #### [facility] [address] [address] [address] Kelly MukherjeeCO2 [Moles/Vol]27.0 mmol/NKloqwt38.0-32.0The [facility] Comment on above:Performed By: #### BMP #### [facility] [address] [address] [address] Kelly MukherjeeCreatinine [Mass/Vol]0.90 mg/dLNormal0.70-1.30The [facility] CenterComment on above:Performed By: #### BMP #### [facility] [address] [address] [address] Mendoza ChangEGFR-AF JAPANESE>60Normal>=60The [facility] CenterComment on above:Performed By: #### BMP #### [facility] [address] [address] [address] Kelly LiangGFR-NON AF JAPANESE>60Normal>=60The [facility] CenterComment on above:Performed By: #### BMP #### [facility] [address] [address] [address] Kelly MukherjeeGlobulin (S) [Mass/Vol]2.9 g/dLNormProMedica Memorial HospitalComment on above:Performed By: #### BMP #### [facility] [address] [address] [address] Kelly MukherjeeGlucose [Mass/Vol]234 mg/dLCritically eqeg40-227Aow [facility] CenterComment on above:Performed By: #### BMP #### [facility] [address] [address] [address] Kelly MukherjeePotassium [Moles/Vol]4.3 mmol/LNormal3.5-5.1The [facility] Comment on above:Performed By: #### BMP #### [facility] [address] [place] [address] Dr. Kelly MukherjeeProtein [Mass/Vol]6.6 g/dLNormal6.4-8.2The [facility] Comment on above:Performed By: #### BMP #### [facility] [address] [place] [address] Dr. Kelly MukherjeeSodium [Moles/Vol]142 mmol/AKnbtaa399-597Clv [facility] Comment on above:Performed By: #### BMP #### [facility] [address] [place] [address] Dr. Kelly MukherjeeUrea nitrogen [Mass/Vol]27.0 mg/dLCritically high7.0-18.0The [facility] CenterComment on above:Performed By: #### BMP #### [facility] [address] [place] [address] Dr. Kelly Bain nitrogen/Creatinine [Mass ratio]30.0 mg/mgNoKnox Community HospitalComment on above:Performed By: #### BMP #### [facility] [address] [address] [address] Kelly MukherjeePROTIMEon 50-60-2962TMT Coag (PPP) [Relative time]1.03 {INR} NormalThe [facility] CenterComment on above:Performed By: #### CVDTBH #### [facility] [address] [address] [address] Kelly Godoy [facility]OSPITALSE[facility] CenterComment on above:Result Comment: DESIRED INR: 2.0 - 3.0 CONDITIONS NOT LISTED BELOW 2.5 - 3.5 FOR PROSTHETIC HEART VALVE REPLACEMENT 2.5 - 3.5 RECURRENT THROMBOSIS Performed By: #### CVDTBH #### [facility] [address] [address] [address] Kelly Lui Coag (PPP) [Time]11.1 sNormal9.0-11.6ThAdams County Hospital Comment on above:Performed By: #### CVDTBH #### [facility] [address] [place] [address] Dr. Kelly Mayer 26-61-0083vDLI Coag (Bld) [Time]26.9 zHqllxz13.3-36.2[facility] Medical CenterComment on above:Performed By: #### CVDTBH #### [facility] [address] [place] [address] Dr. Kelly MukherjeeXR CHEST 1 Von 20-73-5204MW CHEST 1 VEXAMINATION: XR CHEST 1 V [...] Electronically authenticated by: SONAM DUFF Date: 2022-02-15 15:49[facility] Vital Signs Date TimeVital SignValuePerforming GtthvdykjVvpkkqmb89-09-4610 11:27-0500 Diastolic blood bscnpyhg53 mm[Hg]Juan A Welsh DO Work Phone: [facility]11-06-2025 11:27-0500 Heart rate61 /minBenjastacie Welsh DO Work Phone: [phone] [place], [place] 6653111-06-2025 11:27-0500 Respiratory rate20 /minBenjamin Ball DO Work Phone: [phone])[employer] [place], [place] 6653111-06-2025 11:27-0500 SaO2% (BldA) [Mass fraction]97 %Juan A Ball DO Work Phone: [phone])[address] [place], [place] 2872311-06-2025 11:27-0500 Systolic blood iptnqbrq527 mm[Hg]Juan A Ball DO Work Phone: [phone])[address] [place], [place] 2872311-06-2025 04:36-0500 Body .3 kgBenjamin Ball DO Work Phone: [phone] [place], [place] 2872311-05-2025 20:00-0500 Body rncejlgpzta10.8 [degF]Juan A Ball DO Work Phone: [phone])[address] [place], [place] 2872311-04-2025 19:58-0500 Diastolic blood wslgvpme58 mm[Hg]Juan A Ball DO Work Phone: 1(628)[address] [place], [place] 2872311-04-2025 19:58-0500 Systolic blood ircfgkoi040 mm[Hg]Juan A Ball DO Work Phone: [phone])[address] [place], [place] 2872311-04-2025 19:46-0500 Body .72 cmBenjamin Ball DO Work Phone: [phone])[address] [place], [place] 2872311-04-2025 19:46-0500 Body btjpjenqwvb23.3 [degF]Juan A Ball DO Work Phone: [phone])[address] [place], [place] 2872311-04-2025 19:46-0500 Body fdtkop27.6 kgBenjamin Ball DO Work Phone: [phone])[address] [place], [place] 2872311-04-2025 19:46-0500 Heart rate62 /minBenjamin Ball DO Work Phone: [phone])[address] [place], [place] 2872311-04-2025 19:46-0500 Respiratory rate18 /minBenjamin Ball DO Work Phone: [phone])[address] [place], [place] 2872308-18-2025 16:01-0400 Body .72 cmBenjamin Ball DO Work Phone: [phone]08-18-2025 16:01-0400 Body mass index (BMI) [Ratio]22.1 kg/l4Jriqfjag Ball DO Work Phone: [phone])261-[address] [place], [place] 6653108-18-2025 16:01-0400 Body ipmnfw51.22 kgBenjamin Ball DO Work Phone: 1(537)433-[address] [place], [place] 6653108-18-2025 16:01-0400 Diastolic blood gdupqlop99 mm[Hg]Juan A Ball DO Work Phone: [phone])[address]08-18-2025 16:01-0400 Diastolic blood yjorwbjx84 mm[Hg]Juan A Ball DO Work Phone: [phone])[address]08-18-2025 16:01-0400 Heart rate66 /minBenjamin Ball DO Work Phone: 1(536)439-[address] [place], [place] 6653108-18-2025 16:01-0400 Respiratory rate12 /minBenjamin Ball DO Work Phone: 1(516)[employer] [place], [place] 6653108-18-2025 16:01-0400 Systolic blood bakdchqt858 mm[Hg]Juan A Ball DO Work Phone: 1(139)019-[address] [place], [place] 6653108-18-2025 16:01-0400 Systolic blood xxzjlusz158 mm[Hg]Juan A Ball DO Work Phone: [phone] [place], [place] 6653101-03-2025 13:37-0500 Body .72 cmAv[facility]01-03-2025 13:37-0500Body mass index (BMI) [Ratio]23.8 kg/q6IzgemrnwmAvita Health System [facility]01-03-2025 13:37-0500Body .21 kgAvita Health System [facility]01-03-2025 13:37-0500Diastolic blood sivndclv44 mm[Hg][facility] 10-10-2024 13:37-0500Heart rate67 /[facility] 10-10-2024 13:37-0500Respiratory rate12 /[facility] 10-10-2024 13:37-0500Systolic blood wksqoyxh852 mm[Hg][facility]12-04-2024 09:54-0500Body chuypj729.72 cmAv[facility]12-04-2024 09:54-0500Body mass index (BMI) [Ratio]24 kg/l5WbiqugnjdAvita Health System [facility]12-04-2024 09:54-0500Body tylknu13.72 kgAvita Health System [facility]12-04-2024 09:54-0500Diastolic blood wucywcca44 mm[Hg] [facility]12-04-2024 09:54-0500Heart rate61 /[facility]12-04-2024 09:54-0500Respiratory rate12 [facility]12-04-2024 09:54-0500Systolic blood bjljqlva673 mm[Hg] [facility]10-28-2024 11:26-0400Body ecwmfr687.7 cmAnancy Brink PA Work Phone: [facility] CenterWlhzkzbagz84-11-8024 11:26-0400Body mass index (BMI) [Ratio]23.57 kg/m2Kristen Brink PA Work Phone: [facility] CenterZhucaujkci46-04-5472 11:26-0400Body gonedv37.31 kgKristen Brink PA Work Phone: [facility] CenterUlgqctvyty33-74-6109 11:26-0400Diastolic blood mroagwzx37 mm[Hg]Kristen Brink PA Work Phone: [facility] CenterCdrylvttac83-71-8432 11:26-0400Heart rate60 /min Kristen Brink PA Work Phone: [facility] CenterNdqkfexiex30-66-3901 11:26-0400Respiratory rate16 /minKristen Brink PA Work Phone: [facility] CenterDvgrehyshf99-61-8582 11:26-8816AeU1% (BldA) [Mass fraction]100 %Kristen Brink PA Work Phone: [facility] CenterTgczaimoba93-05-2285 11:26-0400Systolic blood qqoqcpvg961 mm[Hg]Kristen FLORES Work Phone: [facility] CenterPcigakgwoa36-79-4666 11:52-0400Body mass index (BMI) [Ratio]22.87 kg/a2LngfseuAlexandra Schmitt [employer]MENT[employer] SOC[employer] WORKER-ASSEMBLYMAN OR WOMAN Work Phone: [facility]09-12-2024 11:52-0400Body ewxwqy03.22 kgAlexandra Schmitt ELEMENTARY SCHO[employer] SOCIAL WORKER-ASSEMBLYMAN OR WOMAN Work Phone: [facility]09-12-2024 11:52-0400Diastolic blood jyszuymj75 mm[Hg]Alexandra Schmitt ELEMENTARY [employer]CHO[employer] SOCIAL WORKER-ASSEMBLYMAN OR WOMAN Work Phone: [facility]09-12-2024 11:52-0400Heart rate 67 /minAlexandra Schmitt ELEMENTARY SCHOOL SOCIAL WORKER-ASSEMBLYMAN OR WOMAN Work Phone: [facility]09-12-2024 11:52-0400Systolic blood mm[Hg]Alexandra Schmitt ELEMENTARY SCHOOL SOCIAL WORKER-ASSEMBLYMAN OR WOMAN Work Phone: [facility]09-03-2024 13:45-0400Body txdcpi650.72 cmAv[facility]09-03-2024 13:45-0400Body mass index (BMI) [Ratio]23.1 kg/r7YwxpbemyjAvita Health System [facility]09-03-2024 13:45-0400Body vqmvur23.05 kgAv[facility]09-03-2024 13:45-0400Diastolic blood zvsgyzmz77 mm[Hg][facility] 06-10-2024 13:45-0400Heart rate61 /[facility] 06-10-2024 13:45-0400Respiratory rate20 /[facility] 06-10-2024 13:45-0400Systolic blood hovadlgo826 mm[Hg][facility]05-21-2024 14:23-0400Body dcippp810.72 cmAv[facility]05-21-2024 14:23-0400Body mass index (BMI) [Ratio]25 kg/r4SgtbtyzyfAvita Health System [facility] Hospital05-21-2024 14:23-0400Body .84 kgAv[facility] Health System [facility]05-21-2024 14:23-0400Diastolic blood eqluffpe77 mm[Hg] [facility]05-21-2024 14:23-0400Heart rate67 /[facility]05-21-2024 14:23-0400Respiratory rate20 /[facility]05-21-2024 14:23-0400Systolic blood iznnixrl005 mm[Hg] [facility]03-08-2024 11:18-0500Body jnrcun042.72 cm [facility]03-08-2024 11:18-0500Body mass index (BMI) [Ratio]24 kg/v9KvdsdzwdwAvita Health System [facility]03-08-2024 11:18-0500Body weight 71.89 kgAvita Health System [facility]03-08-2024 11:18-0500Diastolic blood tgqakbgq66 mm[Hg][facility]03-08-2024 11:18-0500Heart rate65 /[facility]03-08-2024 11:18-0500Respiratory rate20 /[facility]03-08-2024 11:18-0500Systolic blood caxlaetn564 mm[Hg][facility]01-30-2024 13:30-0500Body wimmpf904.72 cmBenjastacie Ball Other [employer] Other 01-30-2024 13:30-0500Body mass index (BMI) [Ratio] 24.45 kg/o5Pzprqelp Ball Other [employer] Other 01-30-2024 13:30-0500Body ixwwnt02.94 kgBenjamin Ball Other [employer] Other 01-30-2024 13:30-0500Diastolic blood viprlgun73 mm[Hg] Juan A Ball Other [employer] Other 01-30-2024 13:30-0500Respiratory rate12 /minBenjamin Ball Other [employer] Other 01-30-2024 13:30-0500Systolic blood ewdcufku110 mm[Hg] Juan A Ball Other [employer] Other 09-28-2023 11:30-0400Body .72 cmBenjamin Ball Other [employer] Other 09-28-2023 11:30-0400Body mass index (BMI) [Ratio] 24.87 kg/x9Zalsnlal Ball Other [employer] Other 09-28-2023 11:30-0400Body .21 kgBenjamin Ball Other [employer] Other 09-28-2023 11:30-0400Diastolic blood uwoefizf09 mm[Hg] Juan A Ball Other [employer] Other 09-28-2023 11:30-0400Respiratory rate16 /minBenjamin Ball Other [employer] Other 09-28-2023 11:30-0400Systolic blood wvwrlafa823 mm[Hg] Juan A Ball Other [employer] Other 06-28-2023 15:00-0400Body .72 cmBenjamin Ball Other [employer] Other 06-28-2023 15:00-0400Body mass index (BMI) [Ratio] 25.12 kg/f4Rixclesv Ball Other [employer] Other 06-28-2023 15:00-0400Body npxpwu73.93 kgBenjamin Ball Other [employer] Other 06-28-2023 15:00-0400Diastolic blood ftymtwzi51 mm[Hg] Juan A Ball Other [employer] Other 06-28-2023 15:00-0400Respiratory rate12 /minBenjamin Ball Other [employer] Other 06-28-2023 15:00-0400Systolic blood revhzodx485 mm[Hg] Juan A Ball Other [employer] Other 03-27-2023 14:30-0400Body nfgkaj550.72 cmBenjamin Ball Other [employer] Other 03-27-2023 14:30-0400Body mass index (BMI) [Ratio] 24.93 kg/o2Qmlmxkyf Ball Other [employer] Other 03-27-2023 14:30-0400Body ocmjxl50.39 kgBenjamin Ball Other [employer] Other 03-27-2023 14:30-0400Diastolic blood mrpfpsad47 mm[Hg] Juan A Ball Other [employer] Other 03-27-2023 14:30-0400Respiratory rate12 /minBenjamin Ball Other [employer] Other 03-27-2023 14:30-0400Systolic blood pirrxxpv905 mm[Hg] Juan A Ball Other [employer] Other 01-06-2023 16:30-0500Body lalwjl544.72 cmBenjamin Ball [facility] [employer] Other 01-06-2023 16:30-0500Body mass index (BMI) [Ratio] 24.63 kg/n8Wdbxyyti Ball Other [employer] Other 01-06-2023 16:30-0500Body zpcmes72.48 kgBenjamin Ball [facility] Other 01-06-2023 16:30-0500Diastolic blood rokyctow29 mm[Hg] Juan A Ball Other [place] [employer] Other 01-06-2023 16:30-0500Respiratory rate12 /minBenjamin Ball Other [employer] Other 01-06-2023 16:30-0500Systolic blood mgwyiclm831 mm[Hg] Juan A Ball Other [place] [employer] Other [id number] 14:43-0500Body cdibsj838.3 Rosangela Crespo MD Work Phone: [facility]11-23-2022 14:43-0500Body temperature 97.7 [degF]Tricia Crespo MD Work Phone: [facility]11-23-2022 14:43-0500Body .57 kgTricia Crespo MD Work Phone: [facility]11-23-2022 14:43-0500Diastolic blood xyfbgtms70 mm[Hg]Tricia Crespo MD Work Phone: [facility]11-23-2022 14:43-0500Heart rate59 /min Tricia Crespo MD Work Phone: [facility]11-23-2022 14:43-0500Respiratory rate 18 /minTricia Crespo MD Work Phone: [facility]11-23-2022 14:43-5098EdC6% (BldA) [Mass fraction]96 %Tricia Crespo MD Work Phone: [facility]11-23-2022 14:43-0500Systolic blood mm[Hg]Tricia Crespo MD Work Phone: [facility] Encounters Encounter DateEncounter TypeCare ProviderFacilityStart: 79-15-9397Tmt-patient / Non-visitCatherine Dell [facility] Work Phone: Start: 08-11-2025 End: 14-45-4979Dpujffm encounter procedureBharat Mayo DO-[employer] [facility] [address] Work Phone: start: 08-11-2025 End: 69-34-2053xynothbzhmYkpfmbfl Ball DO Work Phone: [phone]-Xhsezyqwm Health RT [address]Start: 76-59-3536Wrz-patient / Non-visitCatherine Gianna Patricia DO-[facility] Work Phone: Start: 08-11-2025 End: 46-02-2084Swampshgyz and management of inpatientSsebastian Oconnor DO-[facility] [place] [facility] Work Phone: Start: 75-74-6892Dbw-patient / Non-visitChristine Yariel Lara DO-[facility] Work Phone: Start: 05-25-2025 End: 71-38-7856rrlorikjsyXfwyyebv VANCL DO Work Phone: [facility] Work Phone: Start: 05-25-2025 End: 36-40-7261Ayozrhf encounter procedureJuan A [facility] Work Phone: Start: 15-54-5213Yvw-patient / Non-visitCatsunil Dell [facility] Work Phone: Start: 99-92-9898Mzv-patient / Non-visitBj Ortega [place] -[facility] Work Phone: Start: 10-10-2024 End: 46-21-0539wbcgsnvrwoFqpmokfsbHighland District Hospital Work Phone: Start: 10-10-2024 End: 43-96-2711Afpllhd encounter procedureAt[facility] Physician GroupEast [facility] Work Phone: Start: 09-10-2024 End: 49-30-1879Gcqmkyb encounter procedureAt[facility] Phys[facility] GroupEast [facility] Work Phone: Start: 97-67-6209Zng-patient / Non-visitFircape mays Physician [facility] Work Phone: Start: 08-04-2024 End: 07-77-9470Omkyhp Paolo FLORES Work Phone: [facility] [address]Start: 08-04-2024 End: 83-87-1872Bvclhd Paolo FLORES Work Phone: [facility] [address]TEStart: 08-04-2024 End: 23-92-1607nlhhslpqitCIOK HILLNot AvailableStart: 08-04-2024 End: 20-85-8947Uozbma outpatient visit 15 Marya FLORES Work Phone: n[facility] [address] R[address]TEComment on above:Seizure disorder (CMS/HCC) (Primary Dx); 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, psychotic disturbance, mood disturbance, or anxiety, unspecified timing of dementia onset (CMS/HCC); PINA (obstructive sleep apnea)Start: 07-30-2024 End: 22-72-1247Wrwjgbseg encounterLaso Johnmarek TENORIOProMedica Physicians General SurgeryStart: 07-29-2024 End: 60-08-1811Aexnzy OnlyNot In System Ref ProvProMedica Physicians General SurgeryStart: 07-09-2024 End: 61-75-3684ijhwrxnpzvUD Juan A Welsh Work Phone: [facility] CenterComment on above:History of rectal cancerStart: 07-09-2024 End: 28-22-3940Jqyytwly ReferredDO Juan A Welsh Work Phone: [facility]-LAB Path Spec Nima HospStart: 84-27-6880Dbd-patient / Non-visitDO Juan A Welsh Work Phone: [facility] Physician GroupIn[facility] Work Phone: Start: 23-44-9389Jdg-patient / Non-visitDO Juan A Welsh Work Phone: [facility] Physician GroupInland [facility] Work Phone: Start: 06-19-2024 End: 82-02-0963snhbdozcfxUOWMVHYWenatchee Valley Medical Center [facility] Start: 06-19-2024 End: 12-57-1196Xcpiwd outpatient new 30 minutesEast [facility] ELEMENTARY SCHOOL SOCIAL WORKER-ASSEMBLYMAN OR WOMAN Work Phone: [facility] General SurgeryComment on above: History of rectal cancer (Primary Dx); Encounter for colonoscopy due to history of colonic polyp; Fecal urgencyStart: 06-10-2024 End: 54-57-9337cxlzbgjbsrHaqlresrkWVUMedicine [facility] Hospital Work Phone: Start: 06-10-2024 End: 90-75-9835Anzyelb encounter procedureAt[facility] Health [facility] Physician GroupOhioHealth Clinic Work Phone: Start: 77-19-8102Jpewpja encounter procedureSt. Mary's Medical Centertart: 03-17-2024 End: 76-25-5778innazjyfjlJLGC HILLNot AvailableStart: 02-26-2024 End: 55-48-4302mjsypbiqbuBzmtqxrgzHighland District Hospital Work Phone: Start: 02-26-2024 End: 08-26-3356Nhdaezl encounter procedureFircape mays Physician Group-[facility] Work Phone: Start: 36-41-7518Zwl-patient / Non-visitFiraugusta health Physician Group-[facility] Work Phone: Start: 50-09-9276Kys-patient / Non-visitFiraugusta health Physician Group-[facility] Work Phone: Start: 60-39-2699Qfz-patient / Non-visitFiraugusta health Physician Group-[facility] Work Phone: Start: 02-07-2024 End: 89-37-0035psfhabzhmxEQMQJXOV Lloyd ROBERSONNot AvailableStart: 12-14-2023 End: 13-04-8204Laulmdl encounter procedureAt[facility] Health [facility] Physician Group-[facility] Work Phone: Start: 11-06-2023 End: 22-62-7784ajwpxvdgpuVreuxjuh Ball Other [employer] Other Start: 39-82-1756Cjqkjz outpatient visit 25 minutes Juan A Marcos [facility] ClinicStart: 07-17-2023 End: 46-97-3485durfpxfyoiVpljpont Ball Other [employer] Other Start: 08-35-2349Qlihtetry encounterBenjamin SujitG [facility] Medical ClinicStart: 07-05-2023 End: 36-44-2577apehzdlsmgGmkbkqzg Ball Other [employer] Other Start: 01-68-0028Xyxcmzz encounter procedureBenjamin BlaiseFPG [facility] Medical ClinicStart: 04-04-2023 End: 40-01-7407gqnwdgbkpoQifqukwd Ball Other [employer] Other Start: 84-89-5790Teftab outpatient visit 25 minutes Juan A BallFPG [facility] ClinicStart: 01-01-2023 End: 08-38-8357bqmcqwzotsFvmqxqqj Ball Other [place] [employer] Other Start: 58-59-3605Kzxoef outpatient visit 25 minutes Juan A BallFPG [facility] ClinicStart: 12-14-2022 End: 58-21-5692cxcivyhosfZhhyomzc Ball Other [employer] Other Start: 42-81-4853Obadpstqg encounterBenjamin BallFPG [facility] Medical ClinicStart: 12-11-2022 End: 03-04-4614dagckywtjgUvkrcf W RICEFacility:EU SanduskyStart: 12-11-2022 End: 94-91-6964Ojikpsm encounter procedureRobert W RICE [facility] Indra Start: 12-08-2022 End: 57-93-7629mxwrrnpwljNZ DOMINIC W RICEFacility:L0Swdso: 11-27-2022 End: 35-01-4061rcxvjnujrcZkhnwvhb Ball Other [facility] [employer] Other Start: 20-95-4566Zisdrjgdz encounterBenjamin BallFPG [facility] Medical ClinicStart: 11-07-2022 End: 82-73-8227lbwxghhnhqEDRP LACOURFacility:W2Gujsx: 10-29-2022 End: 78-56-2444dlkatijztkEazyyukm Ball Other [employer] Other Start: 79-83-5942Gbnbuzxmi encounterBenjamin BallFPG [facility] ClinicStart: 10-20-2022 End: 98-78-4342isgmjhwxwhOqldwtpx Ball Other [facility] [employer] Other Start: 74-52-4645Wdxuaawap encounterBekadeem Welsh Medical ClinicStart: 10-13-2022 End: 33-12-2442cfstijzpdeJvxxrbrt Ball Other [facility] [employer] Other Start: 09-35-7073Prjfue outpatient visit 25 minutes Juan A [facility] ClinicStart: 10-04-2022 End: 94-84-2388hozwvsscrfTG JUAN A BALLFacility:U0Xvosb: 29-14-7483Pmjjrnyqb encounterRejet Kay RN Work Phone: Hematology/OncologyComment on above:Care Coordination (Lab Results)Start: 08-30-2022 End: 58-05-5016rkuwtcopgjPlsmeStormy Crespo MD Work Phone: Hematology/OncologyComment on above:Splenomegaly (Primary Dx); Abnormal finding of blood chemistry, unspecifiedStart: 08-30-2022 End: 04-17-4469Dffbuyz encounter Dottie Crespo MD Work Phone: SANDUSKYStart: 05-08-2022 End: 66-55-8686cfaqqxsqbgHK JUAN A BALLFacility:P1Yfxpd: 05-03-2022 End: 97-28-2137heekpxdakzSX JUAN A BALLFacility:L2Pwfft: 04-19-2022 End: 74-69-9177lnsrbnjjghXJPJ LACOURFacility:D0Spjbf: 03-27-2022 End: 31-55-1171mefhoctediAC JUAN A BALLFacility:X4Oyoax: 03-09-2022 End: 93-94-3510gbapxrmcsuBD JUAN A BALLFacility:X5Zvole: 02-15-2022 End: 16-13-4691blwxkhzlabXP JUAN A BALLFacility:Z5Zdqlt: 07-17-2018 End: 09-89-9311Dkvrehh encounterDEFAULT PHYSICIANFacility:UTMCStart: 09-18-2017 End: 98-24-4929Zoesxiu encounterDEFAULT PHYSICIANFacility:[facility] Procedures DateProcedureProcedure DetailPerforming ClinicianStart: 66-74-9174Wlboasda screenBharat Lord - CHCComment on above:Order Comment: Transfuse now? NResult Comment: PERFORMED BY: [facility] [place] [address] PATHOLOGIST AUDIO/VISUAL MANAGER GALINA PINEDA M.D.Start: 58-42-3255NDCJCYX 1 HOURNot In System Ref ProvStart: 75-35-9737Rcdrz i surg pathology gross examination onlyNot In System Ref Prov Start: 74-43-0914Xxcffhrd identified in Urine by CultureStart: 24-38-3665PDO screeningANNE LACOURComment on above:Performed By: #### CVDTBH #### [facility] [address] [place] [address] Dr. 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 Mary's Medical Centertart: 95-09-7807LypynisgwSt. Mary's Medical Centertart: 08-12-2025 End: 74-44-3336KkykajzxbSt. Mary's Medical Centertart: 63-57-7634Nakuvgjonxc [Presence] in StoolSt. Mary's Medical Centertart: 08-11-2025 End: 12-51-3769BxjpkfbfuSt. Mary's Medical Centertart: 54-53-9570Tsqrwkqz to gastroenterologistSt. Mary's Medical Centertart: 72-66-3521Qeramjes admissionSt. Mary's Medical Centertart: 09-23-2606YcfpsmyuuSt. Mary's Medical Centertart: 06-89-6651Nocxg BMI ScreeningAdult BMI ScreeningOhioHealth Grant Medical Center SystemStart: 29-19-1229Bgghjjc ScreeningTobacco ScreeningProMercy Health Kings Mills Hospitaltart: 12-22-2024 End: 03-78-0756Uiddxbg encounter qztijugnb39/17/2025 1:20 PM EDT Office Visit [facility] [address] [address] [place] [address] Kristen Brink PA [address] [place] [address] [facility] ROUTEStart: 08-04-2024 End: 82-12-7293Avicgzwqebawd levelOxcarbazepine level Lab Routine Seizure disorder (CMS/HCC) Expected: 08/04/2024 (Approximate), Expires: 08/04/2025[facility] Work Phone: comment on above:Expected: 08/04/2024 (Approximate), Expires: 08/04/2025Start: 66-45-1621KtevuncsiSt. Mary's Medical Centertart: 20-70-9951Xxdzwwdlo for malignant neoplasm of colonColonoscopyProDelaware County Hospital SystemStart: 35-74-1444BYYSY-19 Vaccine ( season)COVID-19 Vaccine ( season)[facility] SystemStart: 14-08-9485Gvgrsofsy vaccination NOM HealthcareStart: 24-16-5902PUlG,Tdap and Td Vaccines (4 - Td or Tdap) DTaP,Tdap and Td Vaccines (4 - Td or Tdap)[facility] HospitalMystery Science Keen Impressions [facility] Hospitaltart: 02-27-2023 End: 16-86-8610XDF W Auto Differential panel - BloodCBC + DIFF Lab Routine Splenomegaly Expected: 02/27/2023 (Approximate), Expires: 04/29/2023[facility] Work Phone: Comment on above:Expected: 02/27/2023 (Approximate), Expires: 04/29/2023Start: 02-27-2023 End: 38-64-2965Vbiuhiggjvtlv metabolic 2000 panel - Serum or PlasmaCOMP METABOLIC PANEL Lab Routine Splenomegaly Expected: 02/27/2023 (Approximate), Expires: 04/29/2023[facility] Work Phone: Comment on above:Expected: 02/27/2023 (Approximate), Expires: 04/29/2023Start: 08-30-2022 End: 79-39-4070Tdmknuqrh (Vitamin B12) [Mass/volume] in Serum or [facility] Work Phone: Comment on above:Expected: 08/30/2022, Expires: 10/30/2022Start: 08-30-2022 End: 27-16-1953Dstwjkja [Mass/volume] in Serum or [facility] Work Phone: Comment on above:Expected: 08/30/2022, Expires: 08/30/2023Start: 08-30-2022 End: 12-07-3722Pcwd and Iron binding capacity panel - Serum or PlasmaUc West Chester Hospital Work Phone: Comment on above:Expected: 08/30/2022, Expires: 08/30/2023Start: 78-69-7818OBZYGUZ DIRECTIVE DISCUSSIONADVANCE DIRECTIVE DISCUSSIONRiverside Methodist Hospitaltart: 47-00-7010YMTGCGFDOS ASSESSMENTDEPRESSION ASSESSMENTRiverside Methodist Hospitaltart: 75-63-5144OYASG-19 VACCINE (3 - Booster for Moderna series)COVID-19 VACCINE (3 - Booster for Moderna series)[facility] Start: 03-31-2759Pmyfdbbrx aortic aneurysm screeningAbdominal Aortic Aneurysm (AAA) ScreenProMercy Health Kings Mills Hospitaltart: 48-03-9196Sldx Risk ScreeningFall Risk ScreeningECU Health Edgecombe Hospitaltart: 97-30-8797ILIUKQUJBPKX: 65+ (1 - PCV) PNEUMOCOCCAL: 65+ (1 - PCV)[facility] Hospitaltart: 97-88-9545Ghyiffaisgwrve of varicella zoster vaccineZoster (Shingles) Vaccine (1 of 2)ProMFredonia Regional Hospitaltart: 10-33-5416VLVYVPKY VACCINE (1 of 2)SHINGRIX VACCINE (1 of 2) [facility] Hospitaltart: 83-31-6532Unplh microalbumin profileDTAP,TDAP,TD (1 - Tdap)[facility] Hospitaltart: 42-99-7610SZIDJC PCP TEAM CHRONIC DISEASE VISIT ANNUAL PCP TEAM CHRONIC DISEASE VISITRiverside Methodist Hospitaltart: 93-12-4412Xflezdmsa B surface antibody levelLDL CHOLESTEROLRiverside Methodist Hospitaltart: 1957 Depression ScreeningDepression ScreeningECU Health Edgecombe Hospitaltart: 1945 Medicare Annual Wellness VisitMedicare Annual Wellness VisitUniversity Hospitals Lake West Medical CenterAnion gap measurementAvita Health System Galion HospitalBacteria identified in Urine by CultureAvita Health System Galion HospitalBasophils [#/volume] in Blood by Automated countAvita Health System Galion HospitalBasophils/100 leukocytes in Blood by Automated [facility] End: 50-13-0535UzgjjxcifecVslpuiotqog GI Routine History of rectal cancer 1 Occurrences starting 06/19/2024 until 06/19/2025[facility] Work Phone: Comment on above:1 Occurrences starting 06/19/2024 until 06/19/2025omprehensive metabolic 2000 panel - Serum or PlasmaAvita Health System Galion HospitalEosinophils/100 leukocytes in Blood by Automated count [facility] HospitalErythrocyte distribution width [Ratio] by Automated [facility] HospitalErythrocytes [#/volume] in Blood [facility] HospitalGlomerular filtration rate [Volume Rate/Area] in Serum, Plasma or Blood by CreatinineAvita Health System [facility] Hospital Hematocrit [Volume Fraction] of BloodFirelands Regional Medical CenterHemoglobin [Mass/volume] in BloodAvita Health System Galion HospitalHepatitis B virus surface Ab [Presence] in SerumAvita Health System Galion HospitalHelancaster community hospital B virus surface Ag [Presence] in Serum or Plasma by ImmunoassayAvita Health System Galion HospitalHepatitis C virus IgG Ab [Presence] in Serum or Plasma by ImmunoassayAvita Health System Galion HospitalLactoferrin [Presence] in Stool [facility] HospitalLeukocytes [#/volume] corrected for nucleated erythrocytes in Blood by Automated counAvita Health System [facility]ion Hospital Leukocytes [#/volume] in BloodAvita Health System Galion HospitalLymphocytes [#/volume] in Blood by Automated countAvita Health System [facility] Hospital Lymphocytes/100 leukocytes in Blood by Automated [facility] HospitalMCH [Entitic mass] by Automated [facility] MCHC [Mass/volume] by Automated countAvita Health System Galion HospitalMCV [Entitic volume] by Automated [facility] HospitalMonocytes [#/volume] in Blood by Automated [facility] Monocytes/100 leukocytes in Blood by Automated [facility] HospitalNeutrophils [#/volume] in Blood by Automated [facility] HospitalNeutrophils/100 leukocytes in Blood by Automated [facility] HospitalNucleated erythrocytes [Presence] in Blood by Automated [facility] HospitalPatient EducationKnow your [facility] Work Phone: Platelet mean volume [Entitic volume] in Blood by Automated [facility] HospitalPlatelets [#/volume] in Blood [facility] Immunizations Immunization DateImmunizationNotesCare FidyejmiYqrczmlq34-87-4958lfmzjwdge, high dose seasonal, preservative-freeAvita Health System Galion Hospital09-28-2023 influenza virus vaccine, unspecified formulationAvita Health System [facility]ion Hospital09-28-2023influenza, high dose seasonal, preservative-freeBenjamin Ball Other [employer] Other 150812-63-6285bvxntdkmu (aIIV4) vaccine, age 65+ yr, quadrivalent, PF (FLUAD QUADRIVALENT)Tricia Crespo MD Work Phone: [facility] HospitalYvgbaq67-26-8504fzsxbjdty virus vaccine, split virus (incl. purified surface antigen)Juan A Welsh Other [employer] Other [id number] virus vaccine, unspecified formulationRobert Simplify [facility] [place] 579800-04-2022influenza, high dose seasonal, preservative-freeBenaicha Welsh Other [employer] Other [id number] virus vaccine, split virus (incl. purified surface antigen)Juan A Welsh Other [place] [employer] Other [id number] virus vaccine, unspecified formulationAvita Health System Galion Hospital10-01-2021influenza virus vaccine, unspecified formulationRobert Simplify [facility]03-02-2021COVID-19 original vaccine, full dose, monovalent (MODERNA) Tricia Crespo MD Work Phone: [facility] HospitalKljxsp44-51-4543FJWH-HpJ-9 (COVID-19) mRNA- 1273 vaccineRobert Simplify [facility]02-02-2021COVID-19 original vaccine, full dose, monovalent (MODERNA) Tricia Crespo MD Work Phone: [facility] HospitalImunem70-52-2145ZJOA-FpR-2 (COVID-19) mRNA- 1273 vaccineRobert Simplify [facility] [place] 579801-25-2020pneumococcal conjugate vaccine, 13 Gila FLORES Work Phone: [facility] CenterSqbrfltyip05-93-4273qvkrvikib virus vaccine, split virus (incl. purified surface antigen)Juan A Welsh Other [facility] [employer] Other 869695-98-9916vknarvxik virus vaccine, unspecified formulationRobert RICE [facility] [place] 929240-23-2020influenza, injectable, quadrivalent, preservative Clifford Crespo MD Work Phone: [facility] HospitalSlcagc98-94-9646fnoivkggq virus vaccine, split virus (incl. purified surface antigen)Juan A Welsh Other [facility] [employer] Other 10001303-50-2823nsftvcruh virus vaccine, unspecified formulationAvita Health System Galion Hospital10-11-2018influenza virus vaccine, split virus (incl. purified surface antigen)Juan A Welsh Other [facility] [employer] Other 10668997-53-1429jappvigsr virus vaccine, unspecified formulationRobert RICE [facility] [place] 929240-11-2018Seasonal trivalent influenza vaccine, adjuvanted, preservative Clifford Crespo MD Work Phone: [facility] HospitalOnkkln65-18-5013wlkfzughg virus vaccine, split virus (incl. purified surface antigen)Juan A Welsh Other [place] [employer] Other 11912428-86-8466rvxoamaje virus vaccine, unspecified formulationAvita Health System Galion Hospital11-13-2017influenza virus vaccine, unspecified formulationRobert RICE [facility] [place] 929241-13-2017Seasonal trivalent influenza vaccine, adjuvanted, preservative Clifford Crespo MD Work Phone: [facility] HospitalBvurwl17-29-5656edobwpqqu virus vaccine, split virus (incl. purified surface antigen)Juan A Welsh Other [place] [employer] Other [id number] virus vaccine, unspecified formulationAvita Health System [facility]11-27-2015influenza virus vaccine, unspecified formulationRobert RICE [facility] [place] 579801-27-2015influenza, injectable, quadrivalent, preservative freeTricia Crespo MD Work Phone: [facility] HospitalNunuaf04-19-8898trrenprkytec conjugate vaccine, 13 valentBenjamin Ball Other [facility]11-12-2014influenza virus vaccine, unspecified formulationRobert RICE [facility] [place] 579801-12-2014influenza, injectable, quadrivalent, contains preservative Tricia Crespo MD Work Phone: [facility] HospitalGjissu29-35-0537rnkrijalx virus vaccine, unspecified formulationRobert RICE [facility] [place] 579801-13-2013influenza, seasonal, injectableTricia Crespo MD Work Phone: [facility] HospitalFrisue41-78-5351lsrjldrkrfby polysaccharide vaccine, 23 valentBenjamin Ball Other [facility]09-05-2013tetanus and diphtheria toxoids, adsorbed, preservative free, for adult use (5 Lf of tetanus toxoid and 2 Lf of diphtheria toxoid)Juan A Welsh Other [facility]09-12-2012tetanus and diphtheria toxoids, adsorbed, preservative free, for adult use (5 Lf of tetanus toxoid and 2 Lf of diphtheria toxoid)Juan A Blaise Other [facility]07-03-2002diphtheria, tetanus toxoids and acellular pertussis vaccine, unspecified formulation Juan A Welsh Other [facility] Payers DatePayer CategoryPayerPolicy [id number] Care Other (unspecified)[facility] [id number]001Wdcxdos Health Insurance [id number] 2011Medicare [id number] [id number] 1960 [id number] 2.16840.1.051874.[id number] 2.16840.1.526924.3.57[id number] 2.16840.1.424563.3.57[id number] 2.16840.1.487419.3.57[id number] 2.16840.1.757800.3.57[id number] 2.16840.1.164151.3.57[id number] 2.840.1.315652.3.57[id number] 2.840.1.823761.3.57[id number] 2.840.1.260154.3.57[id number] 2.840.1.006710.3.57[id number] 2.840.1.602141.3.57[id number] 2.840.1.349312.3.57[id number] 2.840.1.297918.3.57[id number] 2.840.1.530859.3.57[id number] 2.840.1.371323.3.57[id number] 2.840.1.073796.3.[id number] 2.840.1.7[id number] 2.840.1.487110.3.579.2.531 Social History DateTypeDetailFacilityStart: 08-30-2022 End: 01-15-4098Qdblyzv smoking status NHISEx-smokerTrihealth Mccullough-[facility] Memorial HospitalHistory of tobacco useCurrent smokerTrihealth Mccullough-Hyde Memorial HospitalHistory of tobacco usePassive smoker [facility]: 06-02-2019 End: 36-53-9871Pnaxetw use and exposureSmokeless tobacco non-userRiverside Methodist Hospitaltart: 43-55-9924Mngmzme intakeCurrent non-drinker of alcohol (finding) [facility]: 49-35-6697Tgn Assigned At BirthNot on fileRiverside Methodist Hospitaltart: 08-20-2022 End: 39-03-7306Bzbmzgqr to SARS-CoV-2 (event)Not sureRiverside Methodist Hospitaltart: 11-18-2020 End: 85-88-3005Bzv [facility]igned At [facility]: 94-51-9703Qoq Assigned At [facility] HospitalHistory of tobacco useCigarette SmokerDEL[facility] HealthcareStart: 03-17-2024 End: 12-76-6241Olqhxlmnf beverage intakeLifetime non-drinker (finding)[facility] HealthcareStart: 11-18-2020 End: 26-83-7869Ilhwwbq of Social functionProOhiohealth Grady Memorial Hospitalca [facility] Health SystemStart: 86-53-3169Kcgfhew CommentAge stop: 26NONE HealthcareTobacco smoking status NHIS Unknown if ever smokedSt. Vincent Hospital Work Phone: Start: 05-23-2019 End: 87-24-0493NylMgnr (finding)[facility] Centertart: 14-70-5575Lmfulpulp beverage intakeEx-drinker (finding)[facility] ChildcareUnknowKing's Daughters Medical Center Ohio SystemStart: 84-29-1050EANE Follow upSDOH Follow upSt. Elizabeth Hospital Work Phone: NEGATED: Highlighted rowStart: NINFHistory of tobacco usePassive smokerDELTA COMMUNITY MEDICAL CENTER Healthcare Medical Equipment Procedure CodeEquipment CodeEquipment Original TextEquipment IdentifierDates Start: 20-72-7771Zad Needle, Diabetic (Droplet Pen Needle) 31 gauge x 5/16 needleStart: 23-61-1815Clt Needle, Diabetic (Comfort Ez Pen [place]) 31 gauge x 5/16 needleStart: 03-03-2025 End: 22-86-4123Fgp Needle, Diabetic (Droplet Pen Needle) 31 gauge x 5/16 needle Start: 20-17-9889Ncy Needle, Diabetic (Comfort Ez Pen [place]) 31 gauge x 5/16 needleStart: 03-03-2025 End: 12-52-9944Wwv Needle, Diabetic (Droplet Pen Needle) 31 gauge x 5/16 needle Start: 22-94-1095Nmx Needle, Diabetic (Comfort Ez Pen [place]) 31 gauge x 5/16 needleStart: 03-03-2025 End: 03-03-2025 Goals DatePatient GoalDesired Activity/State Functional Status PokuPzqizgnfbdPpbabuIluunchu36-18-7877Cbjrwicjbl statusPatient at Baseline [facility] Work Phone: 1(391) 104-14060131314-17-4004Makxknzhbo StatusN/AExec[facility] of [facility] Mental Status YxqoBtchhrusxwYgbufuKrbmkqxu55-66-1073Vgayswind functionCognitive Status Patient at BaselineC[facility] Work Phone: Clinical Notes 08-30-2022 to 05-25-2025 Note Date & MotkQxxuRzdmxkjy93-22-8761 Evaluation note* Diagnosis Onset Date Resolution Status Admit Date Alzheimer's dementia acuteAugust 2024 3:51pmASHD (arteriosclerotic heart disease)acuteAugust 2024 3:51pmElevated cholesterolacuteAugust 2024 3:51pmHx of malignant neoplasm of colonacuteAugust 2024 3:51pmIntertriginous skin ulcer, limited to breakdown of skinacuteAugust 2024 3:51pmPancytopenia acuteAugust 2024 3:51pmPerianal dermatitisacuteAugust 2024 3:51pm Primary hypertensionacuteAugust 2024 3:51pmType 2 diabetes mellitus with hyperglycemiaacuteAugust 2024 3:51pmAlzheimer's dementiaacuteNovember 2024 7:11pmColitisacuteNovember 2024 7:11pmGI bleedacuteNovember 2024 7:11pmPrimary hypertensionacuteNovember 2024 7:11pmType 2 diabetes mellitus with hyperglycemiaacuteNovember 2024 7:11pm [facility] Work Phone: 1(487) 830-556308-18-2025 Evaluation note* Diagnosis Onset Date Resolution Status [...] 2024 7:11pmHx of malignant neoplasm of colonacuteNov2024 7:11pmPancytopeniaacuteNovember 2024 7:11pm Primary hypertensionacuteNovember 2024 7:11pmRectal bleedacuteNovember 2024 7:11pmType 2 diabetes mellitus with hyperglycemiaacuteNov2024 7:11pm [facility] Work Phone: 1(386) 768-166312-04-2024 Evaluation note* Diagnosis Onset Date Resolution Status Admit Date Contusion, chest wall acuteDecember 2023 9:48amPrimary hypertensionacuteDecember 2023 9:48am Alzheimer's dementiaacuteJanuary 2024 1:31pmASHD (arteriosclerotic heart disease)acuteJanuary 2024 1:31pmElevated cholesterolacuteJanuary 2024 1:31pmPancytopeniaacuteJanuary 2024 1:31pmPrimary hypertensionacuteJanuary 2024 1:31pmType 2 diabetes mellitus with hyperglycemiaacuteJanuary 2024 1:31pm [facility] Work Phone: [phone] 444-888210-28-2024 History of Present illness Narrative* SANDRA Fisher [...] Review Audit Reviewed by Concha Milligan MA (Network Solutions Architect) on 03/17/24 at 1135 Medication Order Taking? Sig Documenting Provider Last Dose Status allopurinol (Zyloprim) 300 MG tablet [id number] No Aamir Roberson, DPM Taking Active amLODIPine (Norvasc) 5 MG tablet [id number] No Aamir Roberson, DPM Taking Active citalopram (CeleXA) 20 MG tablet [id number] No Aamir Roberson, DPM Taking Active donepezil (Aricept) 10 MG tablet [id number] No TAKE 1 TABLET AT BEDTIME SANDRA Fisher Taking Active doxycycline (Vibramycin) 100 MG capsule [id number] No TAKE ONE CAPSULE BY MOUTH ONCE DAILY FOR 7 DAYSAamir Roberson, DPM Taking Active isosorbide mononitrate ER (Imdur) 30 MG 24 hr tablet [id number] No Aamir Roberson DPM Taking Active losartan (Cozaar) 50 MG tablet [id number] No Aamir Roberson, DPM Taking Active Memantine HCl ER 28 MG capsule sustained-release 24 hr [id number] No TAKE 1 CAPSULE ONE TIME DAILY SANDRA Fisher Taking Active NovoLOG MIX 70/30 FLEXPEN (70-30) 100 UNIT/ML injection [id number] No Aamir Roberson DPM Taking Active OXcarbazepine (Trileptal) 300 MG tablet [id number] No Aamir Roberson DPM Taking Active simvastatin (Zocor) 20 MG tablet [id number] No Take 20 mg by mouth at [...] triceps, wrist extensors, wrist extensors, wrist flexor, shredded filler cigar maker machine strength 5/5. LUE Strength deltoid, biceps, triceps, wrist extensors, wrist extensors, wrist flexor, shredded filler cigar maker machine strength 5/5. RLE Strength illopsoas, quadriceps, tibialis [...] or anxiety, unspecified timing of dementia onset ([facility]) He continues with memory troubles due [...] contributing to his persistent fatigue. Seizure disorder ([facility]) history of seizure disorder with focal [...] 11/26/2023: 12/28/2022: 11/29/21: 12/02/20: 2018: PET scan 2011: consistent with Alzheimer's dementia Carotid ultrasound 02/08/2023: [...] updating EEG pending course documented in this encounterUniversity Health Truman Medical CenterMjcsalbtnq50-58-3705 Miscellaneous Notes* Telephone Encounter - Olivia Olivares [...] be put in chart. documented in this encounterUniversity [facility]als [facility]10-23-2024 Telephone encounter Note* Telephone Encounter - Olivia Olivares CMA - 07/30/2024 10:44 AM EDT ----- Message from Dr. Jurgen Lozano, sent at 07/30/2024 7:35 AM EDT ----- Please let patient know that he had a tubular adenoma and I recommend repeat colonoscopy in 5 yearsif he so wishes even though he would be 84 years of age. Thanks, Dr. Joseph [facility] [id number] Telephone encounter Note* Telephone Encounter - Olivia Olivares CMA - 07/30/2024 10:44 AM EDT While in the process of leaving patient a voicemail, patient's spouse Iman answered the phone. Spoke with Iman regarding patient's pathology results as she is an approved contact for PHI. Iman verbally understood with no further questions. Recall to be put in chart. [facility]09-12-2024 History of Present illness Narrative* Alexandra Schmitt, ELEMENTARY SCHOOL SOCIAL WORKER-ASSEMBLYMAN OR WOMAN - 06/19/2024 11:30 AM EDT Images from [...] Past Medical History: Diagnosis Date Colon cancer (CMS-HCC) Diabetes mellitus ([facility]-HCC) Kidney stone Past Surgical History: Procedure [...] patient/family/caregiver Referring and communicating with other health health care assistant History of rectal cancer [Z85.048] DORENE SHAH [facility] [place] This note was created with the assistance of a speech recognition program. While intending to generate a timely document that accurately reflects the content of the visit, no guarantee can be provided that every grammatical or spelling mistake has been or will be identified or corrected. Thank you for your understanding. DORENE Shah 06/19/24 1309 documented in this encounterUniversity Hospitals Lake West Medical Center09-12-2024 Miscellaneous Notes* Addendum Note - DORENE Shah - 06/19/2024 11:30 AM EDT Addended by: ALEXANDRA SCHMITT on: 06/19/2024 01:09 PM Modules accepted: Orders documented in this encounterUniversity Hospitals Lake [facility] Medical Center09-12-2024 Note* Addendum Note - DORENE Shah - 06/19/2024 11:30 AM EDTAddended by: ALEXANDRA SCHMITT on: 06/19/2024 01:09 PM Modules accepted: Orders [facility]01-30-2024 Evaluation note* Encounter Date Diagnosis Assessment Notes [...] (ICD-10 - N20.0)Push fluids and continue Allopurinol [facility] Other 09-28-2023 Evaluation note* Encounter Date [...] (prostate specific antigen) (ICD-10 - Z12.5)Yearly PSA [facility] Other 06-28-2023 Evaluation note* Encounter Date [...] use, the patient reduces the risk for MS, CVA, HTN, cardiac dysrhythmias and sudden cardiac deaths.The patient is also aware of the association between PINA and morning headaches, daytime somnolence, fatigue and obesiity Noncompliant Mar,Hx of malignant neoplasm of colon (ICD-10 - Z85.038)No s/s recurrence. UTD w/ surveillance scopes Mar,Long term (current) use of insulin (ICD-10 - Z79.4) [facility] Other 03-27-2023 Evaluation note* Encounter Date [...] use, the patient reduces the risk for MS, CVA, HTN, cardiac dysrhythmias and sudden cardiac [...] colon (ICD-10 - Z85.038)UTD w/ CRC screening [facility] Other 03-06-2023 Hospital Discharge instructions Patient [...] include: ?Spinach. ?Rhubarb. ?Beets. ?Potato chips and mohawk fries. ?Nuts. If you regularly take a diuretic medicine, make sure to eat at least 1 2 fruits or vegetables high in potassium each day. These include: ?Avocado. ?Banana. ?Pettis, prune, carrot, or tomato juice. ?Baked potato. [...] Casseroles. Pizza. Lasagna. Frozen meals. Potato chips. Danish fries. Summary You can reduce your risk [...] 01/19/2012 Document Revised: 01/14/2020 Document Reviewed: 09/04/2017 [employer] Patient Education 2020 [employer]. Follow Up Care 12/05/2021 11:51:44 With:YEFRI HUIZAR, Dominic Handley, URL Address: [address] [place] [address]- When: only if needed Comments:YAQUELIN [facility] 02-20-2023 Evaluation note* Encounter Date Diagnosis Assessment Notes Treatment Notes Treatment Clinical Notes Nov, Primary hypertension (ICD-10 - I 10) [facility] Other 01-13-2023 Evaluation note* Encounter Date Diagnosis Assessment Notes Treatment Notes Treatment Clinical Notes Oct, EKTA (generalized anxiety disorde r) (ICD-10 - F41.1) Oct,Elevated cholesterol (ICD-10 - E78.00) Oct,SHD (arteriosclerotic heart disease) (ICD-10 - I25.10) [facility] Other 01-06-2023 Evaluation note* Encounter Date Diagnosis [...] use, the patient reduces the risk for MS, CVA, HTN, cardiac dysrhythmias and sudden cardiac [...] (current) use of insulin (ICD-10 - Z79.4) [facility] Other [id number] Miscellaneous Notes* Telephone Encounter - Rolando Kay [...] adequaly hydrated every day documented in this encounterTrihealth Mccull[facility] Hospital11-23-2022 NoteHNO ID: [id number] Author: Tricia Crespo MD Service: ? Author Type: Physician Type: Progress Notes Filed: 08/30/2022 3:09 PM Note Text: Patient: Brian Meehan Location: [facility] : 1945 Attending Physician: Dr. Vazquez Quinonez [...] erythema BP 147/53[second a (more content not included)...[facility] 08-30-2022 History of Present illness Narrative* Tricia Crespo MD - 08/30/2022 2:59 PM EST Patient: Brian Meehan Location: [facility] : 1945 Attending Physician: Dr. Vazquez Quinonez [...] units) Date Value 10/23/2013 Negative URINALYSIS Specific Hunter, Ur Date Value Ref Range Status 06/26/2017 [...] Juan A Welsh MD documented in this encounterWright-Patterson Medical Centeraluation + Plan note No data available for this section [facility] Evaluation note* Diagnosis Splenomegaly- Primary Abnormal finding of blood chemistry, unspecified documented in this encounter [facility] Centeralutidalhealth [facility] noteNo [place]ioL[place] Other Evaluation note* Diagnosis Onset Date Resolution Status Second degree burn of back noneactiveAlzheimer's dementiaacuteASHD (arteriosclerotic heart disease)acute Elevated cholesterolacutePancytopeniaacutePrimary hypertensionacuteType [address] with [address] [facility] Work Phone: Evaluation note* Diagnosis Onset Date Resolution Status Alzheimer's dementia acuteASHD (arteriosclerotic heart disease)acuteElevated cholesterolacute Encounter for subsequent annual wellness visit in Medicare patientacute PancytopeniaacutePrimary hypertensionacuteType [address] [facility] Work Phone: Evaluation note* Diagnosis Seizure disorder (CMS/HCC)- Primary Unspecified epilepsy without mention of intractable epilepsy 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, psychotic disturbance, mood disturbance, or anxiety, unspecified timing of dementia onset ([facility]) PINA (obstructive sleep apnea) Obstructive sleep apnea (adult) (pediatric) documented in this encounter [facility] HealthcareEvaluation note* Diagnosis History of rectal cancer documented in this encounter [facility] SystemEvaluation [facility]* Diagnosis History of rectal cancer- Primary Encounter for colonoscopy due to history of colonic polyp Fecal urgency documented in this encounter [facility] SystemEvaluation note* Diagnosis Onset Date Resolution Status Admit Date Alzheimer's dementia acuteAugust 2024 3:51pmASHD (arteriosclerotic heart disease)acuteAugust 2024 3:51pmElevated cholesterolacuteAugust 2024 3:51pmHx of malignant neoplasm of colonacuteAugust 2024 3:51pmPancytopeniaacuteAugust 2024 3:51pmPrimary hypertensionacuteAugust 2024 3:51pmType 2 diabetes mellitus with hyperglycemiaacuteAugust 2024 3:51pm [facility] Work Phone: History general Narrative - [...] impairmentSurgical History lithotripsy ESWL with stent insertionSurgical Pfdtwxzxngfbflfgpltgow2201Vxdpgwxc Historycolon adcfcbbuk8041Cnxpwjld Historyhemorrhoidectomy05/2019Surgical RinwvepGXT2680Vpstdjyi Historyumbilical hernia ujzwxq8418Fzhprdfl Historyleft inguinal hernia zhiwmc8456 low anterior resectionSurgical Historycystoscopy, urethral dilation, right stent04/2017Surgical Historycystoscopy with right stent yegybnx19/2017Hospitalization Historysee surgical history [facility] Other InstructionsNot on filedocumented in this encounter [facility] SystemInstructionsNot on filedocumented in this encounter [facility] SystemInstructionsNot on filedocumented in this encounter [facility] SystemInstructionsNot on filedocumented in this encounter [facility] SystemProgress note No data available for this section [facility] Reason for referral (narrative)No reason for referral information availableSt. Vincent Hospital Work Phone: Summary Purpose Family History [...] 2024 1 :31pm ASHD (arteriosclerotic heart disease) [place] 2024 1:31pm Elevated cholesterol October 10, 2024 [...] 3 :51pm ASHD (arteriosclerotic heart disease) [facility] 2024 3:51pm Elevated cholesterol May 25, 2025 3 :51pm Hx of malignant neoplasm of colon May 25, 2025 3:51pm Pancytopenia May 25, 2025 3: 51pm Primary hypertension May 25, 2025 3 :51pm Type 2 diabetes mellitus with hyperglyce [place] May 25, 2025 3:51pm Chief Complaint Admit Date Amb Documentation May 25, 2025 8: 36am ER follow up May 25, 2025 3: 51pm GI Bleed August 11, 2025 7 :11pm [facility] August 11, 2025 8 :11pm Reason for Visit Admit Date Alzheimer's dementia May 25, 2025 3 :51pm ASHD (arteriosclerotic heart disease) [facility] 2024 3:51pm Elevated cholesterol May 25, 2025 3 :51pm Hx of malignant neoplasm of colon May 25, 2025 3:51pm Intertriginous skin ulcer, limited to br eakdown of skin May 25, 2025 3:51pm Pancytopenia May 25, 2025 3: 51pm Perianal dermatitis May 25, 2025 3: 51pm Primary hypertension May 25, 2025 3 :51pm Type 2 diabetes mellitus with hyperglyce [place] May 25, 2025 3:51pm Alzheimer's dementia August 11, 2025 7:11pm Colitis August 11, 2025 7 :11pm GI bleed August 11, 2025 7 :11pm Primary hypertension August 11, 2025 7:11pm Type 2 diabetes mellitus with hyperglyce [place] November 4th, 2025 7:11pm Chief Complaint Admit Date Amb Documentation May [...] August 11, 2025 7:11pm Reason for Referral SpecialtyDiagnoses / ProceduresReferred By ContactReferred To Contact Diagnoses History of rectal cancer Alexandra Schmitt, ELEMENTARY SCHOOL SOCIAL WORKER-ASSEMBLYMAN OR WOMAN [address] [place] [address] Referral IDStatusReasonStart DateExpiration DateVisits RequestedVisits [id number] Additional Source Comments (unrecognized sect ion and content) No Status Records FoundNo Status Records FoundNo Status Records FoundNo Status Records FoundNo Status Records FoundNo Status Records FoundNo Status Records Found INFORMATION SOURCE (unrecogn ized section and content) DATE CREATED AUTHOR 08/14/2018 [facility] DATE CREATED AUTHOR AUTHOR'S ORGANIZ ATION 09/01/2022 [facility] DATE CREATED AUTHOR AUTHOR'S ORGANIZ ATION 12/12/2022 [facility] DATE CREATED AUTHOR AUTHOR'S ORGANIZ ATION 12/13/2022 [facility] DATE CREATED AUTHOR AUTHOR'S ORGANIZ ATION 06/21/2024 [facility] DATE CREATED AUTHOR AUTHOR'S ORGANIZ ATION 08/05/2024 [facility] DATE CREATED AUTHOR AUTHOR'S ORGANIZ ATION 08/21/2025 [facility] Source Comments (unrecognize d section and content) In the event this informatio n is protected by the Federal Confidentiality of Alcohol and Drug Abuse Patient Records regulations: The Federal rules restrict any use of the information to criminally investigate or prosecute any alcohol or drug abuse patient.[facility] Memorial HospitalIn the event this information is protected by the Federal Confidentiality of Alcohol and Drug Abuse Patient Records regulations: The Federal rules restrict any use of the information to criminally investigate or prosecute any alcohol or drug abuse patient.[facility] Reason for Visit (unrecogniz ed section and content) ReasonCommentsPancytopeniaFollow upReasonCommentsCare CoordinationLab Results ReasonCommentsAlzheimer's DiseaseReasonCommentsColon Cancer Screening5 year recall Care Teams (unrecognized sec tion and content) Team Status: Active Member Role Status Dates Juan A Welsh DO Primary Care Provider Active Team Status: Active Member Role Status Dates Juan A Ball , DO Primary Care Provider Active Start: August [...] End: October 10, 2024Team MemberRelationshipSpecialtyStart DateEnd Date BlaiseJuan A DO PCP - [facility] Medicine11/14/11Team MemberRelationshipSpecialtyStart Date End Date Juan A Welsh JavyDO PCP - [facility] Medicine11/14/11 Team Status: Inactive Member Role Status Dates Juan A Welsh DO Primary Care Provide r, Attending Provider Active Start: December 14, 2023 End: December 14, 2023 Team Status: Active Member Role Status Dates Juan A Welsh DO Primary Care Provider Active Start: February 14, 2024 German Carver ProviderActiveStart: February 14, 2024 Team Status: Active Member Role Status Fred Welsh DO Primary Care Provide r, Attending Provider Active Start: February 15, 2024 Team Status: Active Member Role Status Fred Welsh DO Primary Care Provider Active Start: [...] Start: July 09, 2024 End: July 09, 2024Michael E Grillis , DOAttending ProviderActiveStart: July 09, 2024 End: July 09, 2024Team MemberRelationshipSpecialtyStart DateEnd Date Juan A Welsh MD [address] [facility] [place] [id number] PCP - GeneralInternal Medicine02/07/24Team MemberRelationshipSpecialtyStart Date End Date Juan A Welsh MD [address] [facility] [place] [phone] PCP - GeneralInternal Medicine02/07/24Team MemberRelationshipSpecialtyStart Date End Date Juan A Welsh DO [address] [place] [address] PCP - GeneralInternal Medicine05/23/19Team MemberRelationshipSpecialtyStart Date End Date Juan A Welsh DO [address] [place] [address] PCP - GeneralInternal Medicine05/23/19Team MemberRelationshipSpecialtyStart Date End Date Juan A Welsh DO [address] [place] [address] PCP - GeneralInternal Medicine05/23/19Team MemberRelationshipSpecialtyStart Date End Date Juan A Welsh DO [address] [place] [address] PCP - GeneralInternal Medicine05/23/19 Team Status: Active Member Role Status Dates Juan A Welsh DO Primary Care Provider Active Start: May 20, 2025 Bj Ortega , DOAttending ProviderActiveStart: May 20, 2025 Team Status: Active Member Role Status Dates Juan A Welsh DO Primary Care Provider Active Start: May 25, 2025 Inez Sharpe , CMAAttending ProviderActiveStart: May 25, 2025 Team Status: Inactive Member Role Status Dates Juan A Welsh DO Primary Care Provider Active Start: May 25, 2025 End: May 25enaicha Welsh , DOAttending ProviderActiveStart: May 25, 2025 End: May 25, 2025 Team Status: Active Member Role/Relationship Status Dates Juan A Welsh DO Primary Care Provider Active Team Status: Active Member Role/Relationship Status Dates Juan A Welsh DO Primary Care Provider Active Start: May 20, 2025 Bj Ortega , DOAttending ProviderActiveStart: May 20, 2025 Team Status: Active Member Role/Relationship Status Dates Juan A Welsh DO Primary Care Provider Active Start: May 25, 2025 Inez Sharpe , CMAAttending ProviderActiveStart: May 25, 2025 Team Status: Inactive Member Role/Relationship Status Dates Juan A Welsh DO Primary Care Provider Active Start: May 25, 2025 End: May 25enaicha Welsh , DOAttending ProviderActiveStart: May 25, 2025 End: May 25, 2025 Team Status: Active Member Role/Relationship Status Dates Juan A Welsh DO Primary Care Provider Active Start: August 11, 2025 Zeynep Lozaon , DOAttending ProviderActiveStart: August 11, 2025 Team Status: Active Member Role/Relationship Status Dates Juan A Welsh DO Primary Care Provider Active Start: August 11, 2025 John Oconnor DOAdmit ProviderActiveStart: August 11, 2025 Jhon Oconnor , DOAttending ProviderActiveStart: August 11, 2025 Team Status: Inactive Member Role/Relationship Status Dates Juan A Welsh DO Primary Care Provider Active Start: August 11, 2025 End: August 11michael LYON , DO CHCAttending ProviderActiveStart: August 11, 2025 End: August 11, 2025 Team Status: Active Member Role/Relationship Status Dates Juan A Welsh DO Primary Care Provider Active Start: August 11, 2025 Serg Ferris , MDAdmit ProviderActiveStart: August 11, 2025 John Oconnor , Other ProviderActiveStart: August 11, 2025 Prudencio Qureshi MDOther ProviderActiveStart: August 11, 2025 Michael Metcalf , APRNOther ProviderActiveStart: August 11, 2025 Yaw Bonilla ProviderActiveStart: August 11, 2025 Inez Patricia DOAttending ProviderActiveStart: August 11, 2025 Inez Patricia , DOOther ProviderActiveStart: August 11, 2025 Dany Lin , APRNOther ProviderActiveStart: August 11, 2025 Team Status: Active Member Role/Relationship Status Dates Juan A Welsh DO Primary Care Provider Active Start: August 13, 2025 Inez Sharpe , CMAAttending ProviderActiveStart: August 13, 2025 Goals (unrecognized section and content) Goals [...] BE BASED ON THE PRIMARY CLINICAL RECORDS. [employer] provides no warranty or guarantee of the accuracy or completeness of information in this document.
--- OUTSIDE RECORDS SUMMARY | 2025-08-22 15:12 | XMS_ITS | Clinical Summary ---
Author Organization [facility] Address [address] [place] [id number] Care Team Providers Care Head Refrigeration Engineer Name Role Phone Juan A Cox DO Primary Care Provider [phone] Allergies Active AllergyReactionsCriticalityNoted NhqkWpemvwbmKgpohhrkSrszKfg90/11/2009 Other reaction(s): AOF Other reaction(s): AOF Medications MedicationSigDispense QuantityRefillsLast FilledStart DateEnd DateStatus insulin 70-30 aspart protamine-aspart (NOVOLOG MIX 70/30) 100 units/mL injection Inject subcutaneously twice daily before meals. Takes 45 units in the morning and 30 unit at suppertime.Active OXCARBAZEPINE 300 mg tablet Take 300 mg by mouth. Take 2 1/2 tablets in the morning and 2 1/2 tablet at night time. 03/10/2014ctive aspirin, enteric coated 81 mg EC tablet Take 81 mg by mouth once daily.Active simvastatin (ZOCOR) 20 mg tablet Take 20 mg by mouth daily at bedtime.Active VITAMIN E, DL,TOCOPHERYL ACET, (VITAMIN E, DL, ACETATE,) 1,000 unit cap Take by mouth.Active NAMENDA XR 28 mg CSpX 28 mg once daily.01/19/2016Active donepezil (ARICEPT) 10 mg tablet Take 10 mg by mouth daily at bedtime.12/08/2015Active allopurinol (ZYLOPRIM) 300 mg tablet Take 300 mg by mouth once daily. 06/25/2017Active citalopram (CELEXA) 20 mg tablet Take 20 mg by mouth once daily. 12/28/2017Active isosorbide mononitrate ER (IMDUR) 30 mg 24 hr tablet Take 30 mg by mouth once daily. 12/27/2017Active HYDROcodone-acetaminophen (NORCO) 5-325 mg per tablet 04/06/2021ctive losartan (COZAAR) 50 mg tablet Take 50 mg by mouth once daily.08/22/2022ctive amLODIPine (NORVASC) 5 mg tablet 02/06/2023ctive Active Problems ProblemNoted DateDiagnosed DateOther /24/2023bnormal urine color 05/21/2014Coronary artery jfffdyh2405/20/2014S/P CABG x Pulmonary abusajby17/13/0091Xgkworyfvhohoizc12/04/2013Rectal bggjif5410/30/2012Unspecified epilepsy without mention of intractable uzilewas05/15/2012 Immunizations ImmunizationAdministration DatesNext DueCOVID-19 original vaccine, full dose, monovalent (MODERNA)12/07/2020,11/09/2020influenza (IIV3) vaccine, trivalent (AFLURIA, FLULAVAL, FLUVIRIN, FLUZONE)08/20/2013influenza (IIV4) vaccine, age 6 mo - 64 yr, quadrivalent, PF (AFLURIA, FLUARIX, FLULAVAL, FLUZONE)07/30/2020, 09/03/2015influenza (IIV4) vaccine, quadrivalent (AFLURIA, FLULAVAL, FLUZONE) 08/19/2014influenza (aIIV3) vaccine, age 65+ yr, trivalent, PF (FLUAD)07/18/2018 ,08/20/2017influenza (aIIV4) vaccine, age 65+ yr, quadrivalent, PF (FLUAD QUAD) 07/11/2022 Social History Tobacco UseTypesPacks/DayYears UsedDateSmoking Tobacco: FormerPassive Smoke Exposure: PastSmokeless Tobacco: Never Tobacco Cessation:Counseling Given: Not Answered Alcohol UseStandard Drinks/WeekCommentsNo0 (1 standard drink = 0.6 oz pure alcohol)PHQ-2AnswerDate RecordedPHQ-2 [id number] Deprivation Index AnswerDate RecordedNational Score (1-100), lower number is lower risk87 02/28/2023State Score (1-10), lower number is lower mglw1463Data from: https://www.neighborhoodatlas.[facility].edu/. Last address used for LATISHA SOTOMAYORE02/28/2023Sex and Gender InformationValueDate Recorded Sex Assigned at BirthNot on fileLegal NlmIgaw02/02/2012 10:12 AM ESTGender IdentityNot on fileSexual OrientationNot on file Last Filed Vital Signs Vital SignReadingTime TakenCommentsBlood Tobjgawz909/71002/28/2023 2:09 PM EDT Nuent863302/28/2023 2:09 PM XVZDpxobrtyrmm23.6 ??C (97.8 ??F)02/28/2023 2:09 PM EDTRespiratory Hrrl265402/28/2023 2:09 PM EDTOxygen Kxmsojigji85%02/28/2023 2:09 PM EDTInhaled Oxygen Concentration--Bjwoqc11.9 kg (165 lb 3.2 oz)02/28/2023 2:09 PM OSWFuqiea726.3 cm (5' 7.05 )02/28/2023 2:09 PM EDTBody Mass Index25.84 02/28/2023 2:09 PM EDT Plan of Treatment Health MaintenanceDue DateLast DoneCommentsAnnual PCP Team Chronic Disease Visit 1964Anxiety Bzysztxeo75/19/1964Depression Yfwxikujr40/19/1964LDL Itcqxvzlhyv39/19/1964DTaP,Tdap,Td Vaccine (1 - Tdap)1965Pneumococcal Vaccine: 50+ (1 of 1 - PCV)1996Shingrix Vaccine (1 of 2)1996Medicare Annual Wellness Visit04/07/2011RSV Vaccine (1 - 1-dose 75+ series)2021 Advance Directive [place]50/01/2025Covid-19 Vaccine (3 - season) 503/11/2020, 11/09/2020Influenza Vaccine (#1)510/01/2022, 07/30/2020, 07/18/2018, Additional history existsDiabetes Ampgulexm59/24/2026 02/28/2023, 08/30/2022, 04/22/2021, Additional history exists Procedures Procedure NamePriorityDate/TimeAssociated DiagnosisCommentsCOMPREHENSIVE METABOLIC QJMIKLdrhrpg37/24/2023 2:02 PM EDT Splenomegaly from Last 3 Months or Most Recently Relevant to Health Maintenance Results * (ABNORMAL) COMP METABOLIC PANEL (02/28/2023 2:02 PM EDT)ComponentValueRef RangeTest MethodAnalysis TimePerformed AtPathologist SignatureProtein, Total 6.66.3 - 8.0 g/dL02/28/2023 2:[address] [facility] Albumin4.23.9 - 4.9 g/dL02/28/2023 2:43 PM EDTNORTKARMANOS [facility] LABCalcium, Total9.68.5 - 10.2 mg/dL02/28/2023 2:43 PM EDTNORTSAC-OSAGE HOSPITALST [facility] LABBilirubin, Total0.40.2 - 1.3 mg/dL02/28/2023 2:43 PM EDTNORTKARMANOS CANCER CENTER LABAlkaline Azmbwenlmos7370 - 113 U/L 02/28/2023 2:43 PM [facility]TNOR[facility] KJWIPU3960 - 40 U/L 02/28/2023 2:43 PM [facility]TCABE[facility] OEEAKN8345 - 54 U/L 02/28/2023 2:43 PM [facility]TNORALE[facility] ZXTXmlyalt402(H)74 - 99 mg/dL02/28/2023 2:43 PM EDTNORALEIGH [facility] LABComment: The [place] Diabetes Association (ADA) provides guidance for cutoff values for fasting glucose andrandom glucose. The ADA defines fasting as no [...] of Medical Care in Diabetes 2016, [place] Diabetes Association. Diabetes Care. 2016.39(Suppl 1). BUN27(H)9 - 24 mg/dL02/28/2023 2:43 PM [facility] Creatinine1.020.73 - 1.22 mg/dL02/28/2023 2:43 PM EDMARY [facility] TZGGgiicu067839 - 144 mmol/L02/28/2023 2:43 PM [facility] LABPotassium4.13.7 - 5.1 mmol/L02/28/2023 2:43 PM [facility] FEWThlzfhdb38127 - 105 mmol/L02/28/2023 2:43 PM EDT [facility] QYCLP769(H)22 - 30 mmol/L02/28/2023 2:43 PM [facility] LABAnion Gap7(L)9 - 18 mmol/L02/28/2023 2:43 PM [facility] LABEstimated Glomerular Filtration Rate76>=60 mL/min/1.73m 02/28/2023 2:43 PM [facility] LABComment:Estimated Glomerular Filtration Rate (eGFR) is calculated using the 2020 CKD-EPI creatinine equation. This equation utilizes serum creatinine, sex, and age as parameters. The creatinine assay has traceable calibration to isotope dilution- mass spectrometry. Refer to KDIGO guidelines for clinical interpretation. In patients with unstable renal function, e.g. those with acute kidney injury, the eGFRmay not accurately reflect actual GFR.Specimen (Source)Anatomical Location / LateralityCollection Method / VolumeCollection TimeReceived TimeBloodBLOOD SPECIMEN / UnknownVenipuncture / Xgxhshd2402/28/2023 2:02 PM EDT02/28/2023 2:02 PM EDT Narrative Authorizing ProviderResult TypeResult StatusRey Crespo MDLABORATORYFinal ResultPerforming OrganizationAddressCity/State/ZIP CodePhone Number [facility] [address] [place] [address] from Last 3 Months or Most Recently Relevant to Health Maintenance Insurance Care Teams Team MemberRelationshipSpecialtyStart DateEnd Date Juan A Cox DO PCP - GeneralInternal Medicine11/14/11
--- OUTSIDE RECORDS SUMMARY | 2025-08-22 15:12 | XMS_ITS | Clinical Summary ---
Author Organization [facility] tem Address [id number] [place] [address] Care Team Providers Care Product Development Director Name Role Phone Juan A Cox Primary Care Provider [phone] Allergies Active AllergyReactionsCriticalityNoted FdroYjwfbihlRoziujbzVpxePsq52/11/2009 Other reaction(s): AOF Medications MedicationSigDispense QuantityRefillsLast FilledStart [...] (ARICEPT) 10 mg tablet donepezil 10 mg bflrux7412/08/2015Active NOVOLOG MIX 70-30FLEXPEN U-100 100 unit/mL (70-30) insulin pen 20 units with breakfast 10 units with qfgzsf0002/23/2019Active sod sulf-pot chloride-mag sulf 1.479-0.188- 0.225 gram [...] standard drink = 0.6 oz pure alcohol)ChildcareAnswerDate CnfolqzuGenhwznwiNwhyptx04/16/2019 EmploymentAnswerDate JetsbctgKtsjoskaglRgjpwko45/16/2019Purpose - LifeAnswerDate RecordedPurpose and direction in sahkUhdcpmn17/11/2021ex and Gender Information ValueDate RecordedSex Assigned at BirthNot on fileLegal XtsCvri1705/23/2019 12:28 PM EDTGender IdentityNot on fileSexual OrientationNot on file Last Filed Vital Signs Vital SignReadingTime TakenCommentsBlood Bmanjtgz035/5309 11:52 AM EDT Clgqa743506/19/2024 11:52 AM EDTTemperature--Respiratory Rate--Oxygen Saturation-- Inhaled Oxygen Concentration--Igodhg60.2 kg (150 lb 6.4 oz)06/19/2024 11:52 AM OTUQmacqo477.7 cm (5' 8 )06/27/2019 8:57 AM EDTBody Mass Index22.8706/27/2019 8:57 AM EDT Plan of Treatment Health MaintenanceDue DateLast DoneCommentsDepression Yvqlnqbyw94/19/1958Zoster (Shingles) Vaccine (1 of 2)1996Abdominal Aortic Aneurysm (AAA) Screen 2011Fall Risk Oqobdydcn53/19/2011RSV ( or age 60+ yrs) (1 - 1-dose 75+ series)2021TaP,Tdap and Td Vaccines (4 - Tdap)/02/2013, 06/19/2012, 04/09/2002COVID-19 Vaccine (3 - season)/10/2020, 11/08/2020Influenza Ewghovf05/, 07/11/2022, 07/19/2021, Additional history existsTobacco Bjfmeuiqo02/4Colonoscopy /11/2023, 06/11/2019 Medical Devices Not on file Procedures Procedure NamePriorityDate/TimeAssociated DiagnosisComments COLONOSCOPYRoutine 06/11/2019 8:57 AM EDTfrom Last 3 Months or Most Recently Relevant to Health Maintenance Insurance Care Teams Team MemberRelationshipSpecialtyStart DateEnd Date Juan A Cox DO [address] [place] [address] PCP - GeneralInternal Medicine05/23/19
--- OUTSIDE RECORDS SUMMARY | 2025-08-22 15:13 | XMS_ITS | Clinical Summary ---
Author Organization [facility] Address [address] [place] [address] Care Team Providers Care Sign Maker Name Role Phone Juan A Cox DO Primary Care Provider [phone] Allergies Active AllergyReactionsCriticalityNoted VrngLkvzqmekBnuydrbaEhdkEul79/11/2009 Other reaction(s): AOF Other reaction(s): AOF Other [...] DatePLMD (periodic limb movement disorder)03/17/2024 Persistent mental ssjizpie22/10/6168Yjcwjm27/10/2024 Overview (03/17/2024): He has history of tremor to his bilateral hands manifested as shaking in his hands and arms bilaterally when he yawns or uses the restroom, which may be related to vasovagal response. [facility] for an episode of tremors and headache associated with gasping for breath. Head CT revealed chronic age related changes and no acute process. His glucose was noted to be 234. Chest Xray was nonacute. 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 cerebrovascular system, congenital ([facility])03/17/20243215Rkkinozfgxv01/10/2024 Overview (03/17/2024): Patient has been experiencing paresthesia [...] InformationValueDate RecordedSex Assigned at BirthNot on fileLegal IpaPprq9602/05/2023 8:35 PM EDTGender IdentityNot on fileSexual OrientationNot on file Last Filed Vital Signs Vital SignReadingTime TakenCommentsBlood Vquizkjy305/8210 11:26 AM EDT Hpjyq3897 11:26 AM EDTTemperature--Respiratory Fvyn3505 11:26 AM EDTOxygen Cccnlqnmfg879%08/04/2024 11:26 AM EDTInhaled Oxygen Concentration-- Gxrsul67.3 kg (155 lb)08/04/2024 11:26 AM YHGMibhyx865.7 cm (5' 8 )08/04/2024 11:26 AM EDTBody Mass Index23.5710 11:26 AM EDT Plan of Treatment Not on file Insurance Care Teams Team MemberRelationshipSpecialtyStart DateEnd Date Juan A Cox DO PCP - GeneralInternal Medicine02/07/24
[2025-08-22 15:21] LABS: Anion Gap 9.1; Blood Urea Nitrogen 17.0 mg/dL (7.0-18.0); Calcium 9.0 mg/dL (8.5-10.1); Carbon Dioxide 33.7 mmol/L (21.0-32.0); Chloride 103 mmol/L (98-107); Estimated GFR (African America >60 (>=60 mL/min/1.73m^2); Estimated GFR (Non-African Ame >60 (>=60 mL/min/1.73m^2); Glucose 90 mg/dL (74-106); Potassium 3.8 mmol/L (3.5-5.1); Sodium 142 mmol/L (136-145)
[2025-08-22 15:23] LABS: INR 1.07; Prothrombin Time 11.3 sec (9.0-11.6)
[2025-08-22 15:28] LABS: Basophils Abs Manual 0.00 10^3/uL (0.00-0.10); Basophils Percent Manual 0.0 % (0.2-2.0); Eosinophils Absolute Manual 0.07 10^3/uL (0.00-0.70); Eosinophils Percent Manual 2.0 % (0.9-7.0); Lymphocytes Absolute Manual 0.63 10^3/uL (1.20-3.80); Lymphocytes Percent Manual 18.0 % (20.5-60.0); Monocytes Absolute Manual 0.07 10^3/uL (0.30-0.80); Monocytes Percent Manual 2.0 % (1.7-12.0); Segmented Neut Absolute Manual 2.73 10^3/uL (1.4-6.5); Segmented Neutrophils % Manual 78.0 (43.0-75.0)
[2025-08-22] MEDS: 0.9 % SODIUM CHLORIDE 1,000 ML 500 ML IV (15:37)
--- NOTE | 2025-08-22 15:37 | ED.CHESTPAI1 ---
Documented by User: Lexi Martinez 08/22/25 18:31 HPI - Chest Pain General Chief Complaint: Chest Pain Stated Complaint: CHEST PAINS Time Seen by Provider: 08/22/25 14:33 Source: patient Mode of arrival: ambulance Limitations: no limitations History of Present Illness HPI narrative: 80-year-old male was brought to the emergency room by squad. Patient was at home with his granddaughter and he walked out of the bathroom and told his granddaughter to watch him as he did not feel well. She reports he was pale and sweating. He states he did have chest pain. Patient has a significant history of CABG in 2014 x 4. With a left internal mammary artery to the left distal to injury descending and sequential radial artery graft to the obtuse marginal 1 and diagonal branch of the left anterior descending saphenous vein graft to the posterior descending artery harvesting of the left upper extremity and radial artery. reports she has not seen cardiology in quite some time has seen Dr. Dennis parra for stress test. He is also read survivor of colon cancer. does state that he had colitis last week they did a colonoscopy and found he had 2 polyps she does not yet have the report on that. Patient was brought by squad today and given 4 baby aspirin and 1 nitro. He rates his pain was an 8 out of 10 in the squad and nitro took it down to about a 1. He states he has minimal pain out of the mid chest line that is about a 1 at this time. Denies any nausea. He is sitting comfortably in the cot. He is joking with family and . Related Data Home Medications ?Medication ?Instructions ?Recorded ?Confirmed allopurinol 300 mg tablet 300 mg PO QDAY 02/14/24 08/22/25 amlodipine 5 mg tablet 5 mg PO QDAY 02/14/24 08/22/25 citalopram 20 mg tablet 20 mg PO QDAY 02/14/24 08/22/25 donepezil 10 mg tablet 10 mg PO BEDTIME 02/14/24 08/22/25 insulin aspar prot-insulin aspart See Rx Instructions subcut .COMPLEX 02/14/24 08/22/25 100 unit/mL (70-30) subcutaneous pen (Novolog Mix 70-30FlexPen U-100) isosorbide mononitrate 30 mg 30 mg PO QDAY 02/14/24 08/22/25 tablet,extended release 24 hr losartan 50 mg tablet 50 mg PO BID 02/14/24 08/22/25 memantine 28 mg capsule 28 mg PO Q24H 02/14/24 08/22/25 sprinkle,extended release 24hr oxcarbazepine 300 mg tablet 900 mg PO BID 02/14/24 08/22/25 simvastatin 20 mg tablet 20 mg PO QDAY 02/14/24 08/22/25 aspirin 81 mg capsule 81 mg PO DAILY 05/20/25 08/22/25 Allergies Allergy/AdvReac Type Severity Reaction Status Date / Time neomycin Allergy Rash Verified 08/11/25 10:46 Review of Systems ROS Status of ROS 10 or more systems reviewed and unremarkable except as noted in history and below [facility] Medical History History of blood transfusion (2008) ?Z92.89 - Personal history of other medical treatment (ICD-10) Sleep apnea ?G47.30 - Sleep apnea, unspecified (ICD-10) Tremor ?R25.1 - Tremor, unspecified (ICD-10) CAD (coronary artery disease) ?I25.10 - Atherosclerotic heart disease of [place] coronary artery without angina pectoris (ICD-10) PE (pulmonary thromboembolism) ?I26.99 - Other pulmonary embolism without acute cor pulmonale (ICD-10) Syncope ?R55 - Syncope and collapse (ICD-10) Dementia ?F03.90 - Unspecified dementia, unspecified severity, without behavioral disturbance, psychotic disturbance, mood disturbance, and anxiety (ICD-10) Kidney stone ?N20.0 - Calculus of kidney (ICD-10) Anemia ?D64.9 - Anemia, unspecified (ICD-10) Acute hemorrhoid ?K64.9 - Unspecified hemorrhoids (ICD-10) Colon cancer ?C18.9 - Malignant neoplasm of colon, unspecified (ICD-10) Hypertension ?I10 - Essential (primary) hypertension (ICD-10) Diabetes ?E11.9 - Type 2 diabetes mellitus without complications (ICD-10) Surgical History H/O hemorrhoidectomy (2008) ?Z98.890 - Other specified postprocedural states (ICD-10) S/P cataract extraction and insertion of intraocular lens ?Z98.49 - Cataract extraction status, unspecified eye (ICD-10) ?Z96.1 - Presence of intraocular lens (ICD-10) S/P ureteral stent placement ?Z96.0 - Presence of urogenital implants (ICD-10) H/O colectomy (2006) ?Z90.49 - Acquired absence of other specified parts of digestive tract (ICD-10) H/O colonoscopy ?Z98.890 - Other specified postprocedural states (ICD-10) S/P CABG x 4 (2013) ?Z95.1 - Presence of aortocoronary bypass graft (ICD-10) History of colon surgery (2007) ?Z98.890 - Other specified postprocedural states (ICD-10) Family History Uncle Family history of CHF (congestive heart failure) Family history of myocardial infarction Other Family history of COPD (chronic obstructive pulmonary disease) Family history of cancer Social History Within the past year, how often did you have a drink containing alcohol: never Score interpretation: A score less than 4 is consistent with normal alcohol consumption. Smoking status: Former smoker Non-prescribed substance use: denies use Previous occupational history: retired Highest level of school completed/degree received: high school graduate Are you now , , , , never or living with a partner: In a typical week, how many times do you talk on the telephone with family, friends, or neighbors: twice per week How often do you get together with friends or relatives: twice per week Little interest or pleasure in doing things: not at all Feeling down, depressed, or hopeless: not at all Do you think of yourself as: straight/heterosexual Gender Identity: male Exam Narrative Exam Narrative: All Systems are negative except as noted/marked.All systems reviewed and otherwise negative Nurses note and vital signs reviewed and patient is not hypoxic. General: The patient appears well and in no apparent distress. Patient is resting comfortably on cart. Skin: Warm, dry, no pallor noted. There is no rash noted. Head: Normocephalic, atraumatic Eye: Normal conjunctiva, no drainage, EOMI. PERRL Ears, Nose, Mouth, and Throat: oral mucosa is dry. Nares patent. Mouth without vesicles. Ear canals patent. Tm's without Erythema Cardiovascular: Regular Rate and Rhythm Respiratory: Patient is in no distress, no accessory muscle use, lungs are clear to auscultation, no wheezing, rales or rhonchi Back: non-tender, no CVA tenderness bilaterally to percussion. GI: Normal bowel sounds, no tenderness to palpation, no masses appreciated. No rebound, guarding, or rigidity noted. Musculoskeletal: The patient has no evidence of calf tenderness, no pitting edema, symmetrical pulses noted bilaterally Neurological: A&O x4, normal speech Psychiatric: Cooperative Constitutional Vital Signs, click to edit/add: Last Vital Signs Temp 96.8 F L 08/22/25 18:59 Pulse 75 08/22/25 22:36 Resp 22 H 08/22/25 19:28 BP 189/72 H 08/22/25 18:59 Pulse Ox 100 08/22/25 18:59 O2 Del Method Room Air 08/22/25 18:59 Course Vital Signs Vital signs: Vital Signs Pulse Rate 56 L 08/22/25 14:18 Respiratory Rate 18 08/22/25 14:18 Blood Pressure 194/72 H 08/22/25 14:18 Pulse Oximetry 100 08/22/25 14:18 Oxygen Delivery Method Room Air 08/22/25 14:18 Temperature 96.8 F L 08/22/25 18:59 Pulse Rate 75 08/22/25 22:36 Respiratory Rate 22 H 08/22/25 19:28 Blood Pressure 189/72 H 08/22/25 18:59 Pulse Oximetry 100 08/22/25 18:59 Oxygen Delivery Method Room Air 08/22/25 18:59 MDM - Chest Pain Differential Diagnosis Differential diagnosis: Likely atypical chest pain and chest pain Medical Records Data Attestation: I reviewed the patient's medical records. Medical records narrative: 80-year-old male was brought to the emergency room by squad. Patient was at home with his granddaughter and he walked out of the bathroom and told his granddaughter to watch him as he did not feel well. She reports he was pale and sweating. He states he did have chest pain. Patient has a significant history of CABG in 2014 x 4. With a left internal mammary artery to the left distal to injury descending and sequential radial artery graft to the obtuse marginal 1 and diagonal branch of the left anterior descending saphenous vein graft to the posterior descending artery harvesting of the left upper extremity and radial artery. reports she has not seen cardiology in quite some time has seen Dr. Dennis parra for stress test. He is also read survivor of colon cancer. does state that he had colitis last week they did a colonoscopy and found he had 2 polyps she does not yet have the report on that. Patient was brought by squad today and given 4 baby aspirin and 1 nitro. He rates his pain was an 8 out of 10 in the squad and nitro took it down to about a 1. He states he has minimal pain out of the mid chest line that is about a 1 at this time. Denies any nausea. He is sitting comfortably in the cot. He is joking with family and . Patient is presenting here by squad with a chief complaint of midsternal chest pain no radiation of the chest pain. Patient was medicated with nitro prior to arrival. His pain remained minimal here in the emergency room. Both troponins were resulted and negative. Patient does have a history of chronic anemia hemoglobin here today is 9.7 hematocrit 27.1 initial troponin is 10 and second troponin is 8.4 urinalysis also obtained and negative. Chest x-ray reviewed showed no acute abnormalities. Due to the patient's history of CABG in the past and no recent follow-up for cardiology he will be admitted for observation for chest pain. He does have an elevated blood pressure at this time I spoke to Dr. Bai concerning this patient's care he is going to admit him and stabilize blood pressure. Patient is stable at this time he is eating at bedside and doing well Lab Data Attestation: I reviewed the patient's lab results. Labs: Lab Results 08/22/25 08/22/25 Range/Units 14:54 17:15 WBC 3.5 L (4.0-11.0) 10^3/uL RBC 2.77 L (4.70-6.10) 10^6/uL Hgb 9.7 L (14.0-18.0) g/dL Hct 27.1 L (42.0-54.0) % MCV 97.8 H (80.0-94.0) fL MCH 35.0 H (25.9-34.0) pg MCHC 35.8 H (29.9-35.2) g/dL RDW 14.6 (11.0-15.0) % Plt Count 91 L (150-450) 10^3/uL MPV 10.4 (9.5-13.5) fL Seg Neuts % (Manual) 78.0 H (43.0-75.0) Lymphocytes % (Manual) 18.0 L (20.5-60.0) % Monocytes % (Manual) 2.0 (1.7-12.0) % Eosinophils % (Manual) 2.0 (0.9-7.0) % Basophils % (Manual) 0.0 L (0.2-2.0) % Neutrophils # (Manual) 2.73 (1.4-6.5) 10^3/uL Lymphocytes # (Manual) 0.63 L (1.20-3.80) 10^3/uL Monocytes # (Manual) 0.07 L (0.30-0.80) 10^3/uL Eosinophils # (Manual) 0.07 (0.00-0.70) 10^3/uL Basophils # (Manual) 0.00 (0.00-0.10) 10^3/uL PT 11.3 (9.0-11.6) sec INR 1.07 Sodium 142 (136-145) mmol/L Potassium 3.8 (3.5-5.1) mmol/L Chloride 103 (98-107) mmol/L Carbon Dioxide 33.7 H (21.0-32.0) mmol/L Anion Gap 9.1 BUN 17.0 (7.0-18.0) mg/dL Creatinine 0.94 (0.70-1.30) mg/dL Est GFR ( Amer) >60 (>=60 mL/min/1.73m^2) Est GFR (Non-Af Amer) >60 (>=60 mL/min/1.73m^2) BUN/Creatinine Ratio 18.1 Glucose 90 (74-106) mg/dL Calcium 9.0 (8.5-10.1) mg/dL Troponin I High Sens 10.0 8.4 (4.0-76.1) pg/mL Urine Color Lt. yellow (YELLOW) Urine Clarity Clear (CLEAR) Urine pH 8.0 (5.0-9.0) Ur Specific [place] 1.015 (1.005-1.025) Urine Protein 100 A (NEG/TRACE) mg/dL Urine Glucose (UA) Negative (NEGATIVE) mg/dL Urine Ketones Negative (NEGATIVE) mg/dL Urine Occult Blood Negative (NEGATIVE) Urine Nitrite Negative (NEGATIVE) Urine Bilirubin Negative (NEGATIVE) Urine Urobilinogen 0.2 (0.2-1.0) EU/dL Ur Leukocyte Esterase Negative (NEGATIVE) Urine RBC None seen (0-2) #/HPF Urine WBC None seen (NONE SEEN) #/HPF Ur Squamous Epith Cells Rare (NONE/RARE) #/LPF Urine Crystals None seen (None Seen) #/HPF Urine Bacteria None seen (NONE SEEN) #/HPF Urine Casts None seen (NONE SEEN) #/LPF Urine Mucus None seen (NONE SEEN) Imaging Data Chest x-ray: Radiologist's impression: ITS Impressions Chest X-Ray 08/22/25 14:36 IMPRESSION: No acute process. Impression dictated by: Bj Wills M.D. 08/22/2025 4:00 PM Dictation Location: [place] [id number] Electronically authenticated by: [id number] Y Date: 08/22/2025 16:00 ECG Data Interpretation: 1420 sinus rhythm with a rate of 56 bpm first-degree AV block GA interval 228 ms, QRS duration [address] elevation or depression Discharge Plan Discharge Chief Complaint: Chest Pain Clinical Impression: Chest pain Patient Disposition: Admitted as Observation Time of Disposition Decision: 18:00 Condition: Fair Discharge Date/Time: 08/22/25 18:45 Documented by User: Bj Bowman MD 08/22/25 22:38 HPI - Chest Pain General Chief Complaint: Chest Pain Stated Complaint: CHEST PAINS Time Seen by Provider: 08/22/25 14:33 Related Data Home Medications ?Medication ?Instructions ?Recorded ?Confirmed allopurinol 300 mg tablet 300 mg PO QDAY 02/14/24 08/22/25 amlodipine 5 mg tablet 5 mg PO QDAY 02/14/24 08/22/25 citalopram 20 mg tablet 20 mg PO QDAY 02/14/24 08/22/25 donepezil 10 mg tablet 10 mg PO BEDTIME 02/14/24 08/22/25 insulin aspar prot-insulin aspart See Rx Instructions subcut .COMPLEX 02/14/24 08/22/25 100 unit/mL (70-30) subcutaneous pen (Novolog Mix 70-30FlexPen U-100) isosorbide mononitrate 30 mg 30 mg PO QDAY 02/14/24 08/22/25 tablet,extended release 24 hr losartan 50 mg tablet 50 mg PO BID 02/14/24 08/22/25 memantine 28 mg capsule 28 mg PO Q24H 02/14/24 08/22/25 sprinkle,extended release 24hr oxcarbazepine 300 mg tablet 900 mg PO BID 02/14/24 08/22/25 simvastatin 20 mg tablet 20 mg PO QDAY 02/14/24 08/22/25 aspirin 81 mg capsule 81 mg PO DAILY 05/20/25 08/22/25 Allergies Allergy/AdvReac Type Severity Reaction Status Date / Time neomycin Allergy Rash Verified 08/11/25 10:46 [facility] Medical History History of blood transfusion (2008) ?Z92.89 - Personal history of other medical treatment (ICD-10) Sleep apnea ?G47.30 - Sleep apnea, unspecified (ICD-10) Tremor ?R25.1 - Tremor, unspecified (ICD-10) CAD (coronary artery disease) ?I25.10 - Atherosclerotic heart disease of [place] coronary artery without angina pectoris (ICD-10) PE (pulmonary thromboembolism) ?I26.99 - Other pulmonary embolism without acute cor pulmonale (ICD-10) Syncope ?R55 - Syncope and collapse (ICD-10) Dementia ?F03.90 - Unspecified dementia, unspecified severity, without behavioral disturbance, psychotic disturbance, mood disturbance, and anxiety (ICD-10) Kidney stone ?N20.0 - Calculus of kidney (ICD-10) Anemia ?D64.9 - Anemia, unspecified (ICD-10) Acute hemorrhoid ?K64.9 - Unspecified hemorrhoids (ICD-10) Colon cancer ?C18.9 - Malignant neoplasm of colon, unspecified (ICD-10) Hypertension ?I10 - Essential (primary) hypertension (ICD-10) Diabetes ?E11.9 - Type 2 diabetes mellitus without complications (ICD-10) Surgical History H/O hemorrhoidectomy (2008) ?Z98.890 - Other specified postprocedural states (ICD-10) S/P cataract extraction and insertion of intraocular lens ?Z98.49 - Cataract extraction status, unspecified eye (ICD-10) ?Z96.1 - Presence of intraocular lens (ICD-10) S/P ureteral stent placement ?Z96.0 - Presence of urogenital implants (ICD-10) H/O colectomy (2006) ?Z90.49 - Acquired absence of other specified parts of digestive tract (ICD-10) H/O colonoscopy ?Z98.890 - Other specified postprocedural states (ICD-10) S/P CABG x 4 (2013) ?Z95.1 - Presence of aortocoronary bypass graft (ICD-10) History of colon surgery (2007) ?Z98.890 - Other specified postprocedural states (ICD-10) Family History Uncle Family history of CHF (congestive heart failure) Family history of myocardial infarction Other Family history of COPD (chronic obstructive pulmonary disease) Family history of cancer Social History Within the past year, how often did you have a drink containing alcohol: never Score interpretation: A score less than 4 is consistent with normal alcohol consumption. Smoking status: Former smoker Non-prescribed substance use: denies use Previous occupational history: retired Highest level of school completed/degree received: high school graduate Are you now , , , , never or living with a partner: In a typical week, how many times do you talk on the telephone with family, friends, or neighbors: twice per week How often do you get together with friends or relatives: twice per week Little interest or pleasure in doing things: not at all Feeling down, depressed, or hopeless: not at all Do you think of yourself as: straight/heterosexual Gender Identity: male Exam Constitutional Vital Signs, click to edit/add: Last Vital Signs Temp 96.8 F L 08/22/25 18:59 Pulse 75 08/22/25 22:36 Resp 22 H 08/22/25 19:28 BP 189/72 H 08/22/25 18:59 Pulse Ox 100 08/22/25 18:59 O2 Del Method Room Air 08/22/25 18:59 Course Vital Signs Vital signs: Vital Signs Pulse Rate 56 L 08/22/25 14:18 Respiratory Rate 18 08/22/25 14:18 Blood Pressure 194/72 H 08/22/25 14:18 Pulse Oximetry 100 08/22/25 14:18 Oxygen Delivery Method Room Air 08/22/25 14:18 Temperature 96.8 F L 08/22/25 18:59 Pulse Rate 75 08/22/25 22:36 Respiratory Rate 22 H 08/22/25 19:28 Blood Pressure 189/72 H 08/22/25 18:59 Pulse Oximetry 100 08/22/25 18:59 Oxygen Delivery Method Room Air 08/22/25 18:59 MDM - Chest Pain Medical Records Data Medical records narrative: 80-year-old male was brought to the emergency room by manuel. Patient was at home with his granddaughter and he walked out of the bathroom and told his granddaughter to watch him as he did not feel well. She reports he was pale and sweating. He states he did have chest pain. Patient has a significant history of CABG in 2014 x 4. With a left internal mammary artery to the left distal to injury descending and sequential radial artery graft to the obtuse marginal 1 and diagonal branch of the left anterior descending saphenous vein graft to the posterior descending artery harvesting of the left upper extremity and radial artery. reports she has not seen cardiology in quite some time has seen Dr. Dennis parra for stress test. He is also read survivor of colon cancer. does state that he had colitis last week they did a colonoscopy and found he had 2 polyps she does not yet have the report on that. Patient was brought by manuel today and given 4 baby aspirin and 1 nitro. He rates his pain was an 8 out of 10 in the squad and nitro took it down to about a 1. He states he has minimal pain out of the mid chest line that is about a 1 at this time. Denies any nausea. He is sitting comfortably in the cot. He is joking with family and . Patient is presenting here by squad with a chief complaint of midsternal chest pain no radiation of the chest pain. Patient was medicated with nitro prior to arrival. His pain remained minimal here in the emergency room. Both troponins were resulted and negative. Patient does have a history of chronic anemia hemoglobin here today is 9.7 hematocrit 27.1 initial troponin is 10 and second troponin is 8.4 urinalysis also obtained and negative. Chest x-ray reviewed showed no acute abnormalities. Due to the patient's history of CABG in the past and no recent follow-up for cardiology he will be admitted for observation for chest pain. He does have an elevated blood pressure at this time I spoke to Dr. Bai concerning this patient's care he is going to admit him and stabilize blood pressure. Patient is stable at this time he is eating at bedside and doing well I, Dr Bowman, have reviewed the above progress note and course of action in the ER; agree with the above. I have gone over history and physical, and discussed disposition and treatment plan of the patient with the PA/TYPING CHECKER Patient was observed in the ER for several hours, patient had 2 sets of troponins that were negative. Lab Data Labs: Lab Results 08/22/25 08/22/25 Range/Units 14:54 17:15 WBC 3.5 L (4.0-11.0) 10^3/uL RBC 2.77 L (4.70-6.10) 10^6/uL Hgb 9.7 L (14.0-18.0) g/dL Hct 27.1 L (42.0-54.0) % MCV 97.8 H (80.0-94.0) fL MCH 35.0 H (25.9-34.0) pg MCHC 35.8 H (29.9-35.2) g/dL RDW 14.6 (11.0-15.0) % Plt Count 91 L (150-450) 10^3/uL MPV 10.4 (9.5-13.5) fL Seg Neuts % (Manual) 78.0 H (43.0-75.0) Lymphocytes % (Manual) 18.0 L (20.5-60.0) % Monocytes % (Manual) 2.0 (1.7-12.0) % Eosinophils % (Manual) 2.0 (0.9-7.0) % Basophils % (Manual) 0.0 L (0.2-2.0) % Neutrophils # (Manual) 2.73 (1.4-6.5) 10^3/uL Lymphocytes # (Manual) 0.63 L (1.20-3.80) 10^3/uL Monocytes # (Manual) 0.07 L (0.30-0.80) 10^3/uL Eosinophils # (Manual) 0.07 (0.00-0.70) 10^3/uL Basophils # (Manual) 0.00 (0.00-0.10) 10^3/uL PT 11.3 (9.0-11.6) sec INR 1.07 Sodium 142 (136-145) mmol/L Potassium 3.8 (3.5-5.1) mmol/L Chloride 103 (98-107) mmol/L Carbon Dioxide 33.7 H (21.0-32.0) mmol/L Anion Gap 9.1 BUN 17.0 (7.0-18.0) mg/dL Creatinine 0.94 (0.70-1.30) mg/dL Est GFR ( Amer) >60 (>=60 mL/min/1.73m^2) Est GFR (Non-Af Amer) >60 (>=60 mL/min/1.73m^2) BUN/Creatinine Ratio 18.1 Glucose 90 (74-106) mg/dL Calcium 9.0 (8.5-10.1) mg/dL Troponin I High Sens 10.0 8.4 (4.0-76.1) pg/mL Urine Color Lt. yellow (YELLOW) Urine Clarity Clear (CLEAR) Urine pH 8.0 (5.0-9.0) Ur Specific [place] 1.015 (1.005-1.025) Urine Protein 100 A (NEG/TRACE) mg/dL Urine Glucose (UA) Negative (NEGATIVE) mg/dL Urine Ketones Negative (NEGATIVE) mg/dL Urine Occult Blood Negative (NEGATIVE) Urine Nitrite Negative (NEGATIVE) Urine Bilirubin Negative (NEGATIVE) Urine Urobilinogen 0.2 (0.2-1.0) EU/dL Ur Leukocyte Esterase Negative (NEGATIVE) Urine RBC None seen (0-2) #/HPF Urine WBC None seen (NONE SEEN) #/HPF Ur Squamous Epith Cells Rare (NONE/RARE) #/LPF Urine Crystals None seen (None Seen) #/HPF Urine Bacteria None seen (NONE SEEN) #/HPF Urine Casts None seen (NONE SEEN) #/LPF Urine Mucus None seen (NONE SEEN) Imaging Data Chest x-ray: Radiologist's impression: ITS Impressions Chest X-Ray 08/22/25 14:36 IMPRESSION: No acute process. Impression dictated by: Bj Wills M.D. 08/22/2025 4:00 PM Dictation [facility] Electronically authenticated by: [id number] Y Date: 08/22/2025 16:00 Discharge Plan Discharge Chief Complaint: Chest Pain Clinical Impression: Chest pain Patient Disposition: Admitted as Observation Time of Disposition Decision: 18:00 Condition: Fair Discharge Date/Time: 08/22/25 18:45
[2025-08-22] MEDS: ACETAMINOPHEN 500 MG TABLET 1000 MG PO (17:03)
[2025-08-22 17:46] LABS: Glucose Urine UA NEGATIVE (NEGATIVE)
[2025-08-22 17:58] LABS: Cast Seen? NONE SEEN #/LPF (NONE SEEN); Crystals Seen? None Seen #/HPF (None Seen)
--- NOTE | 2025-08-22 18:39 | PM.HP ---
HPI H&P: HPI History of Present Illness Chief complaint: CHEST PAINS Narrative: This is a 80-year-old man who came to the emergency room here on Sunday afternoon after experiencing chest pain at home. His was away from the home but when she got home she could tell that he was not feeling good. The patient does have a moderate amount of dementia and the patient's sets out all of his medications and arranges all of his appointments. Reportedly he was coming out of the bathroom. The ambulance en route gave him aspirin and nitroglycerin, which did reduce his pain. In the ER the first troponin was 10. The second troponin was 8.4. Twelve-lead EKG to my view shows first-degree AV block but no change compared to a prior twelve-lead EKG back on 02/14/2024. He does have a history of four-vessel coronary artery bypass grafting back in 2023. That was done at the [facility] his says. He did have a pulmonary embolus at the same time but he no longer takes anticoagulation. He does have multiple cardiac risk factors in the form of diabetes mellitus type 2, hypertension, possibly untreated sleep apnea. His reports that he really does not get much physical at activity at home. He gets minimal exertion activity at home. She says that sometimes he gets little pains that can be sharp and seemed to bother him for just a few minutes. He is supposed to see his primary care doctor, Dr. Cox, in 3 days. 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 He was recently hospitalized at [facility] in [place] for rectal bleeding. He got out of there on August 13. This commuter system. Shantel does not talk to the 1 pamela and Gisela. But I called 1 my colleagues. They looked into the chart. The colonoscopy showed a sessile polyp and some colitis, consistent with healing ischemic colitis. His blood pressures were very high then. But he was discharged with no changes to his medications. Here in our emergency room, despite the nitroglycerin given by the ambulance, his blood pressures have been high at 194/72 and 189/79. The best 1 so far is 165/75. His heart rate is consistently on the lower side between 56 and 66 with a nice steady sinus bradycardia. His says that she sets out all of his medications so he would have taken his normal medications this morning. The says that the Norvasc is recently been increased from 5 mg daily to 5 mg twice a day and the patient takes the losartan 50 mg twice a day. When I see the patient in ER room #6 he is finishing a dinner. He does not complain of chest pain at this time. He does not seem to have pleuritic chest pain with deep breathing. I could not palpate any tender areas on his ribs. He has a nice sinus rhythm at about 65 bpm on the monitor with no PVCs or PACs. Opioid HPI Opioid Management Most Recent Pain and Opioid Data: Last Pain Scale 2 Today, 16:31 Last ED Pain Assessment Today, 16:31 Last MAR Pain Assessment Today, 17:03 Last ORT Total Score 0 02/15/24, 00:23 Last ORT Risk Category Low Risk 02/15/24, 00:23 Review of Systems ROS Narrative A 10 point review of systems is negative except as mentioned elsewhere in this document. [facility] Medical History History of blood transfusion (2008) ?Z92.89 - Personal history of other medical treatment (ICD-10) Sleep apnea ?G47.30 - Sleep apnea, unspecified (ICD-10) Tremor ?R25.1 - Tremor, unspecified (ICD-10) CAD (coronary artery disease) ?I25.10 - Atherosclerotic heart disease of platinum coronary artery without angina pectoris (ICD-10) PE (pulmonary thromboembolism) ?I26.99 - Other pulmonary embolism without acute cor pulmonale (ICD-10) Syncope ?R55 - Syncope and collapse (ICD-10) Dementia ?F03.90 - Unspecified dementia, unspecified severity, without behavioral disturbance, psychotic disturbance, mood disturbance, and anxiety (ICD-10) Kidney stone ?N20.0 - Calculus of kidney (ICD-10) Anemia ?D64.9 - Anemia, unspecified (ICD-10) Acute hemorrhoid ?K64.9 - Unspecified hemorrhoids (ICD-10) Colon cancer ?C18.9 - Malignant neoplasm of colon, unspecified (ICD-10) Hypertension ?I10 - Essential (primary) hypertension (ICD-10) Diabetes ?E11.9 - Type 2 diabetes mellitus without complications (ICD-10) Surgical History H/O hemorrhoidectomy (2008) ?Z98.890 - Other specified postprocedural states (ICD-10) S/P cataract extraction and insertion of intraocular lens ?Z98.49 - Cataract extraction status, unspecified eye (ICD-10) ?Z96.1 - Presence of intraocular lens (ICD-10) S/P ureteral stent placement ?Z96.0 - Presence of urogenital implants (ICD-10) H/O colectomy (2006) ?Z90.49 - Acquired absence of other specified parts of digestive tract (ICD-10) H/O colonoscopy ?Z98.890 - Other specified postprocedural states (ICD-10) S/P CABG x 4 (2013) ?Z95.1 - Presence of aortocoronary bypass graft (ICD-10) History of colon surgery (2007) ?Z98.890 - Other specified postprocedural states (ICD-10) Family History Uncle Family history of CHF (congestive heart failure) Family history of myocardial infarction Other Family history of COPD (chronic obstructive pulmonary disease) Family history of cancer Social History Within the past year, how often did you have a drink containing alcohol: never Score interpretation: A score less than 4 is consistent with normal alcohol consumption. Smoking status: Former smoker Non-prescribed substance use: denies use Previous occupational history: retired Highest level of school completed/degree received: high school graduate Are you now , , , , never or living with a partner: In a typical week, how many times do you talk on the telephone with family, friends, or neighbors: twice per week How often do you get together with friends or relatives: twice per week Little interest or pleasure in doing things: not at all Feeling down, depressed, or hopeless: not at all Do you think of yourself as: straight/heterosexual Gender Identity: male Meds Home Medications and Allergies Home Medications ?Medication ?Instructions ?Recorded ?Confirmed ?Type allopurinol 300 mg tablet 300 mg PO QDAY 02/14/24 08/22/25 History amlodipine 5 mg tablet 5 mg PO QDAY 02/14/24 08/22/25 History citalopram 20 mg tablet 20 mg PO QDAY 02/14/24 08/22/25 History donepezil 10 mg tablet 10 mg PO BEDTIME 02/14/24 08/22/25 History insulin aspar prot-insulin aspart See Rx Instructions subcut .COMPLEX 02/14/24 08/22/25 History 100 unit/mL (70-30) subcutaneous pen (Novolog Mix 70-30FlexPen U-100) isosorbide mononitrate 30 mg 30 mg PO QDAY 02/14/24 08/22/25 History tablet,extended release 24 hr losartan 50 mg tablet 50 mg PO BID 02/14/24 08/22/25 History memantine 28 mg capsule 28 mg PO Q24H 02/14/24 08/22/25 History sprinkle,extended release 24hr oxcarbazepine 300 mg tablet 900 mg PO BID 02/14/24 08/22/25 History simvastatin 20 mg tablet 20 mg PO QDAY 02/14/24 08/22/25 History aspirin 81 mg capsule 81 mg PO DAILY 05/20/25 08/22/25 History Allergies Allergy/AdvReac Type Severity Reaction Status Date / Time neomycin Allergy Rash Verified 08/11/25 10:46 Exam Narrative Exam Narrative: General: Seen in ER room #6 he is sitting upright on the edge of the bed finishing a dinner. Awake. Alert. Oriented x 2. Has a pleasant about a moderate dementia. Eyes: EOMI. Conjunctive sclera clear. Neck: No thyromegaly. No lymphadenopathy neck appreciated. Mouth: Oropharynx is clear. Tongue is midline. Mallampati grade 1. Skin: Warm and dry well-perfused. Pulmonary: Clear to auscultation throughout. No wheezing. No rhonchi. No crackles. Cardiac: Regular rate and rhythm to auscultation. I do not hear any murmurs. Heart rate has a nice steady beat at about 60 bpm to 65 bpm on the monitor. GI: Abdomen soft, nontender, and normal bowel sounds to auscultation. Lower extremities: No edema in the ankles bilaterally. Calves: I do not appreciate any swelling or tenderness in the calves bilaterally. Chest wall: Palpating up his sternum and along the rib to sternal borders I do not feel any tender points of musculoskeletal or rib cage pain. Constitutional Vital Signs, click to edit/add: Last Vital Signs Pulse 64 08/22/25 16:20 Resp 14 08/22/25 16:20 BP 165/75 H 08/22/25 16:30 Pulse Ox 99 08/22/25 16:10 O2 Del Method Room Air 08/22/25 14:18 Results Labs Labs: Short CBC 08/22/25 Range/Units 14:54 WBC 3.5 L (4.0-11.0) 10^3/uL Hgb 9.7 L (14.0-18.0) g/dL Hct 27.1 L (42.0-54.0) % Plt Count 91 L (150-450) 10^3/uL BMP 08/22/25 14:54 Sodium 142 Potassium 3.8 Chloride 103 Carbon Dioxide 33.7 H BUN 17.0 Creatinine 0.94 Glucose 90 Calcium 9.0 Urine 08/22/25 Range/Units 17:15 Urine Color Lt. yellow (YELLOW) Urine Clarity Clear (CLEAR) Urine pH 8.0 (5.0-9.0) Ur Specific [place] 1.015 (1.005-1.025) Urine Protein 100 A (NEG/TRACE) mg/dL Urine Glucose (UA) Negative (NEGATIVE) mg/dL Assessment and Plan Assessment and Plan (1) Chest pain: (2) Hypertension: Plan Assessment: Chest pain. Need to rule out acute coronary syndrome. History of coronary artery bypass grafting in 2013, hypertension, and dyslipidemia as well as diabetes mellitus type 2. Hypertension, which has been persistently elevated, back on it ER stay here on August 08 before he went to [facility], and his blood pressures were reportedly fairly high at [facility], and they remained high in the emergency room today. Diabetes mellitus type 2, on insulin. Anemia. He has had a custodial running anemia and his hemoglobin is 9.7 but his indices do not really look change compared to the prior ones. Mild dementia. Plan: Placement into the hospital into observation status. Ongoing telemetry monitoring. Check vital signs every 4 hours while awake. Allow ambulation in the hallways. Check another troponin or 2 tonight and then with morning labs. Check hemoglobin A1c to monitor his diabetes status. Accu-Cheks AC and at bedtime with sliding scale insulin to prevent hyperglycemia during hospital stay. Given his anemia will check iron, TIBC, ferritin, and vitamin B12 and folic acid with morning labs. I will start low-dose hydralazine at 10 mg p.o. 4 times a day, which means that his first dose should be now and the next dose given at bedtime, and then in the morning... to see if this can get his blood pressure to be a little bit better overnight. Given that he is already on good strong doses of Norvasc and losartan, and on Imdur I think that he would benefit from addition of hydrochlorothiazide. His heart rate is too slow right now to consider anything in the beta-richard family. Heparin 5000 units subcutaneously every 8 hours for DVT prophylaxis.
--- OUTSIDE RECORDS SUMMARY | 2025-08-22 18:51 | XMS_ITS | CCD ---
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 [address] USASodium [Moles/Vol]142 mmol/BCsqqtn668-432Xfm [facility] Physician GroupComment on above:Performed By: #### CRP #### [place] [address] USAUrea nitrogen [Mass/Vol]23 mg/dLNormal7-e [facility] Physician GroupComment on above:Performed By: #### CRP #### [place] [address] USAGlucose Poct Glucometerson 46-47-0777Uphysuh [Mass/Vol]141 mg/dLNoWakeMed Cary Hospital Physician [facility] HospitalComment on above:Result Comment: Random Glucose Reference Range is dependent on time and content of last meal. Glucose of more than 200 mg/dL in a nonstressed, ambulatory subject supports the diagnosis of Diabetes Mellitus. PERFORMED BY: [place] [address] PATHOLOGIST TUTORING MANAGER GALINA PINEDA M.D.Performed By: #### GLULS #### Point of Care testing ,Glucose [Mass/Vol]131 mg/dLNoWakeMed Cary Hospital Physician [facility] HospitalComment on above: Result Comment: Random Glucose Reference Range is dependent on time and content of last meal. Glucose of more than 200 mg/dL in a nonstressed, ambulatory subject supports the diagnosis of Diabetes Mellitus. PERFORMED BY: [place] [address] PATHOLOGIST TUTORING MANAGER GALINA PINEDA M.D.Performed By: #### GLULS #### Point of Care testing ,Hemogram CBC Without Diffon 95-00-5375Pwrrpfjngno distribution width (RBC) [Ratio]15.2 %High12.0-14.8The [facility] Physician GroupComment on above: Performed By: #### GLULS #### Point of Care testing ,Hematocrit (Bld) [Volume fraction]25.7 %Low38.8-50.0The [facility] Physician GroupComment on above:Performed By: #### GLULS #### Point of Care testing ,Hemoglobin (Bld) [Mass/Vol]9.2 g/dLLow13.0-17.0The [facility]ician Group Comment on above:Performed By: #### GLULS #### Point of Care testing ,MCH (RBC) [Entitic mass]34.7 bkJejqyb46.5-35.2The [facility] Group Comment on above:Performed By: #### GLULS #### Point of Care testing ,MCV (RBC) [Entitic vol]97.4 nTHppzfa95.5-101The [facility] Comment on above:Performed By: #### GLULS #### Point of Care testing ,Mean Corpuscular HGB Conc35.6 g/fJLrzctq57.5-35.6The [facility] Comment on above:Performed By: #### GLULS #### Point of Care testing ,Platelet mean volume (Bld) [Entitic vol]8.4 fLNormal6.6-10.1The [facility] Physician GroupComment on above:Result Comment: PERFORMED BY: [place] [address] [place] [address] PATHOLOGIST TUTORING MANAGER GLAINA PINEDA M.D.Performed By: #### GLULS #### Point of Care testing ,Platelets (Bld) [#/Vol]75 10*3/lQFli356-900Hhh [facility] Physician GroupComment on above:Performed By: #### GLULS #### Point of Care testing ,RBC (Bld) [#/Vol]2.64 10*6/uLLow3.90-5.60The [facility] Physician GroupComment on above:Performed By: #### GLULS #### Point of Care testing ,White Blood Count3.0 [CFU]/mLLow4.1-10.5The [facility] Physician GroupComment on above:Performed By: #### GLULS #### Point of Care testing ,Magnesiumon 09-38-3668Vehcawvgb [Mass/Vol]1.7 mg/dLLow1.9-2.7The [facility] Physician GroupComment on above:Result Comment: PERFORMED BY: [place] [address] PATHOLOGIST TUTORING MANAGER GALINA PINEDA M.D.Performed By: #### CRP #### [place] [address] USAPathology Request for Lab Corpon 06-39-9632Slyftwfrw Request for Lab CorpNoWakeMed Cary Hospital Physician GroupComment on above:Result Comment: See report. Scanned copy available in EMR. PERFORMED BY: [place] [address] PATHOLOGIST TUTORING MANAGER GALINA PINEDA M.D.Performed By: #### GLULS #### Point of Care testing ,ABO/Rh Retypeon 26-68-3366AFY/RH Recheck ResultPositiveNoUpper Valley Medical CenterComment on above:Result Comment: PERFORMED BY: [place] [address] PATHOLOGIST TUTORING MANAGER GALINA PINEDA M.D.Basic Metabolic Panelon 71-85-1306Soztg gap [Moles/Vol]9.6 mmol/LNormal6.0-15.0The [facility] Physician GroupComment on above:Performed By: #### CBC, MG, BMP #### [facility] [address] [place] [address] USACalcium [Mass/Vol]8.6 mg/dLNormal8.6-10.3The [facility] Physician GroupComment on above:Performed By: #### CBC, MG, BMP #### [facility] [address] [place] [address] USAChloride [Moles/Vol]108 mmol/EEyza30-456Vvn [facility] Physician GroupComment on above:Performed By: #### CBC, MG, BMP #### [place] [address] USACO2 [Moles/Vol]26.9 mmol/WBwbkry80.0-31.0The [facility] Physician GroupComment on above:Performed By: #### CBC, MG, BMP #### [place] [address] USACreatinine [Mass/Vol]1.14 mg/dLNormal0.70-1.30The [facility] Physician GroupComment on above:Performed By: #### CBC, MG, BMP #### [place] [address] USACreatinine Clr Calc Bspavqgf54.24NormalThe [facility] Physician GroupComment on above:Performed By: #### CBC, MG, BMP #### [place] [address] USAGFR/1.73 sq M.predicted MDRD (S/P/Bld) [Vol rate/Area] mL/min/{1.73_m2}NormalThe [facility] Physician GroupComment on above:Performed By: #### CBC, MG, BMP #### [place] [address] USAGlucose [Mass/Vol]138 mg/rWHhve53-609Fia [facility] Physician GroupComment on above:Result Comment: Random Glucose Reference Range is dependent on time and content of last meal. Glucose of more than 200 mg/dL in a nonstressed, ambulatory subject supports the diagnosis of Diabetes Mellitus. ADA recommended reference rangePerformed By: #### CBC, MG, BMP #### [place] [address] USAPotassium [Moles/Vol]3.5 mmol/LNormal3.5-5.1The [facility] Physician GroupComment on above:Performed By: #### CBC, MG, BMP #### [place] [address] USASodium [Moles/Vol]141 mmol/ZGsrbzt581-971Kwz [facility] Physician GroupComment on above:Performed By: #### CBC, MG, BMP #### [place] [address] USAUrea nitrogen [Mass/Vol]23 mg/dLNormal7-25The [facility] Physician GroupComment on above:Performed By: #### CBC, MG, BMP #### [place] [address] USAComplete Blood Count Auto Diffon 79-30-4838Lffforbqt (Bld) [#/Vol]0.0 10*3/uLNormal0.0-0.2The [facility] Physician GroupComment on above: Result Comment: PERFORMED BY: [place] [address] PATHOLOGIST TUTORING MANAGER GALINA PINEDA M.D.Performed By: #### CBC, MG, BMP #### [place] [address] USABasophils/100 WBC (Bld)0.2 %Normal.The [facility] Physician GroupComment on above:Performed By: #### CBC, MG, BMP #### [place] [address] USAEosinophils (Bld) [#/Vol]0.1 10*3/uLNormal0.0-0.45The [facility] Physician GroupComment on above:Performed By: #### CBC, MG, BMP #### [place] [address] USAEosinophils/100 WBC (Bld)1.8 %Normal.The [facility] Physician GroupComment on above:Performed By: #### CBC, MG, BMP #### [place] [address] USAErythrocyte distribution width (RBC) [Ratio]14.6 %Normal 12.0-14.8The [facility] Physician GroupComment on above:Performed By: #### CBC, MG, BMP #### [place] [id number] USAHematocrit (Bld) [Volume fraction]24.9 %Low38.8-50.0The [facility] Physician GroupComment on above:Performed By: #### CBC, MG, BMP #### [place] [address] USAHemoglobin (Bld) [Mass/Vol]9.0 g/dLLow13.0-17.0The [facility] Physician GroupComment on above:Performed By: #### CBC, MG, BMP #### [place] [address] USALymphocytes (Bld) [#/Vol]0.4 10*3/uLLow1.00-4.8The [facility] Physician GroupComment on above:Performed By: #### CBC, MG, BMP #### [place] [address] USALymphocytes/100 WBC (Bld)13.2 %Normal.The [facility] Physician GroupComment on above:Performed By: #### CBC, MG, BMP #### [place] [address] USAMCH (RBC) [Entitic mass]34.6 ynFentrj91.5-35.2The [facility] Physician GroupComment on above:Performed By: #### CBC, MG, BMP #### [place] [address] USAMCV (RBC) [Entitic vol]95.6 nKArdvii37.5-101The [facility] Physician GroupComment on above:Performed By: #### CBC, MG, BMP #### [place] [address] USAMean Corpuscular HGB Conc36.2 g/xSAwwf16.5-35.6The [facility] Physician GroupComment on above:Performed By: #### CBC, MG, BMP #### [place] [address] USAMonocytes (Bld) [#/Vol]0.2 10*3/uLNormal0.0-0.8The [facility] Physician GroupComment on above:Performed By: #### CBC, MG, BMP #### [facility] [address] [place] [address] USAMonocytes/100 WBC (Bld)7.0 %Normal.The [facility] Physician GroupComment on above:Performed By: #### CBC, MG, BMP #### [facility] [address] [place] [address] USANeutrophils (Bld) [#/Vol]2.4 10*3/uLNormal1.8-7.7The [facility] Physician GroupComment on above:Performed By: #### CBC, MG, BMP #### [facility] [address] [place] [address] USANeutrophils/100 WBC (Bld)77.8 %Normal.The [facility] Physician GroupComment on above:Performed By: #### CBC, MG, BMP #### [facility] [address] [place] [address] USANRBC%0.1 /100{WBC}Normal0-0.5The [facility]ician Group Comment on above:Performed By: #### CBC, MG, BMP #### [facility] [address] [place] [address] USAPlatelet mean volume (Bld) [Entitic vol]8.0 fLNormal 6.6-10.1The [facility] Physician GroupComment on above:Performed By: #### CBC, MG, BMP #### [facility] [address] [place] [address] USAPlatelets (Bld) [#/Vol]79 10*3/nFWsv853-256Vzc [facility] Physician GroupComment on above:Performed By: #### CBC, MG, BMP #### [facility] [address] [place] [address] USARBC (Bld) [#/Vol]2.60 10*6/uLLow3.90-5.60The [facility] Physician GroupComment on above:Performed By: #### CBC, MG, BMP #### [facility] [address] [place] [address] USAWBC (Bld) [#/Vol]3.1 10*3/uLLow4.1-10.5The [facility] Physician GroupComment on above:Performed By: #### CBC, MG, BMP #### [facility] [address] [place] [address] USAWhite Blood Count3.1 [CFU]/mLLow4.1-10.5The [facility] Physician GroupComment on above:Performed By: #### CBC, MG, BMP #### [facility] [address] [place] [address] USAGlucose Poct Glucometerson 23-87-2606Qapwfar4Opt5: Cleaned MeterNoUpper Valley Medical CenterComment on above:Result Comment: PERFORMED BY: [place] [address] PATHOLOGIST TUTORING MANAGER GALINA PINEDA M.D.Performed By: #### GLULS #### Point of Care testing ,Glucose [Mass/Vol]137 mg/dLNoWakeMed Cary Hospital Physician GroupComment on above: Result Comment: Random Glucose Reference Range is dependent on time and content of last meal. Glucose of more than 200 mg/dL in a nonstressed, ambulatory subject supports the diagnosis of Diabetes Mellitus.Performed By: #### GLULS #### Point of Care testing ,Glucose [Mass/Vol]119 mg/dLNoWakeMed Cary Hospital Physician GroupComment on above: Result Comment: Random Glucose Reference Range is dependent on time and content of last meal. Glucose of more than 200 mg/dL in a nonstressed, ambulatory subject supports the diagnosis of Diabetes Mellitus. PERFORMED BY: [place] [address] PATHOLOGIST TUTORING MANAGER GALINA PINEDA M.D.Performed By: #### GLULS #### Point of Care testing ,Glucose [Mass/Vol]155 mg/dLNorth Ridge Medical Center Physician GroupComment on above: Result Comment: Random Glucose Reference Range is dependent on time and content of last meal. Glucose of more than 200 mg/dL in a nonstressed, ambulatory subject supports the diagnosis of Diabetes Mellitus. PERFORMED BY: [address] [place] [address] PATHOLOGIST TUTORING MANAGER GALINA PINEDA M.D.Performed By: #### GLULS #### Point of Care testing ,Glucose [Mass/Vol]134 mg/dLNoWakeMed Cary Hospital Physician GroupComment on above: Result Comment: Random Glucose Reference Range is dependent on time and content of last meal. Glucose of more than 200 mg/dL in a nonstressed, ambulatory subject supports the diagnosis of Diabetes Mellitus. PERFORMED BY: [place] [address] PATHOLOGIST TUTORING MANAGER GALINA PINEDA M.D.Performed By: #### GLULS #### Point of Care testing ,Lactoferrin, Stool WBCon 02-14-3143Emlotxskunx, Stool WBCLACTOFERRIN Negative for Fecal Lactoferrin Immune suppression may cause reduced WBC counts, leading to a false negative result. Reference range = Negative PERFORMED BY: [place] [address] PATHOLOGIST TUTORING MANAGER GALINA PINEDA M.D.NormalThe [facility] GroupComment on above: Performed By: #### GLULS #### Point of Care testing ,LeukoReduced RBCon 90-62-0443DigxlGerkslb RBCREADYNormAdventHealth Palm Harbor ER Physician [facility] General HospitalMagnesiumon 03-87-9670Erwqwasto [Mass/Vol]1.7 mg/dLLow1.9-2.7The [facility] Physician [facility] General HospitalComment on above:Result Comment: PERFORMED BY: [place] [id number] PATHOLOGIST TUTORING MANAGER GALINA PINEDA M.D.Performed By: #### CBC, MG, BMP #### [facility] [address] [place] [address] USAStool Bacterial Panelon 37-64-7621WtucgrwlamrbsUkyboqpt NormalNegativeHca Florida [facility]ulerson Hospital Physician GroupComment on above:Result Comment: Campylobacter test includes C. jejuni and C. coli.Performed By: #### ENT BACT PANEL #### [place] [address] USASalmonella SpeciesNegativeNormalNegativeHca Florida [facility]ul[facility] Physician GroupComment on above:Result Comment: Testing performed by RT-PCR PERFORMED BY: [place] [address] PATHOLOGIST TUTORING MANAGER GALINA PINEDA M.D.Performed By: #### ENT BACT PANEL #### [place] [address] USAShiga Toxin (E coli O157+oth)NegativeNormalNegativeHca Florida [facility]ul[facility] Physician GroupComment on above:Performed By: #### ENT BACT PANEL #### [place] [address] USAShigella SpeciesNegativeNormalNegativeThe [facility] Physician GroupComment on above:Result Comment: Shigella sp. test includes Shigella species and Enteroinvasive E. coli (EIEC).Performed By: #### ENT BACT PANEL #### [place] [address] USAType and Screenon 16-93-0295HXX and Rh group Nom (Bld) Blood group O Rh(D) positiveNormBlanchard Valley Health System Blanch[facility] Hospitale [facility] Physician GroupComment on above: Order Comment: Transfuse now? NResult Comment: PERFORMED BY: [place] [address] PATHOLOGIST TUTORING MANAGER GALINA PINEDA M.D.Basophils [#/volume] in Blood by Automated countOrdered By: Robyn Matamoros on 25-54-7138Nugctnusp (Bld) [#/Vol]0.0 10*3/uLNormal0.0-0.2 [facility] EastComment on above:Result Comment: PERFORMED BY: [place] [address] PATHOLOGIST TUTORING MANAGER GALINA PINEDA M.D.Performed By: #### GLULS #### Point of Care testing ,Basophils/100 WBC Manual cnt (Bld)Ordered By: Zeynep Lozano on 08-11-2025 Basophils/100 WBC (Bld)0.0 %Low0.2-2.0[facility] Basophils/100 leukocytes in Blood by Automated countOrdered By: Robyn Matamoros on 42-99-6044Gtdxssadm/100 WBC (Bld)0.3 %Normal.[facility] Comment on above:Performed By: #### GLULS #### Point of Care testing ,C reactive protein [Mass/volume] in Serum or PlasmaOrdered By: Robyn Matamoros on 54-18-8558BLE [Mass/Vol]< 0.5 mg/dL0.0-0.5FUniversity Hospitals TriPoint Medical CenterC- Reactive Proteinon 72-51-9486WUO [Mass/Vol]mg/LNormal0.0-0.5The [facility] Physician GroupComment on above:Result Comment: PERFORMED BY: [place] [address] PATHOLOGIST TUTORING MANAGER GALINA PINEDA M.D.Performed By: #### CRP #### [place] [address] USACapillary blood glucose measurement by glucometer (mass/volume)Ordered By: John Oconnor on 50-24-0784Wtmuylt [Mass/Vol]155 mg/dL [facility] Hospital - WestComment on above:Random Glucose Reference Range is dependent [...] the diagnosis of Diabetes Mellitus. PERFORMED BY: [place] [address] PATHOLOGIST TUTORING MANAGER GALINA PINEDA M.D.Performed By: #### CRP #### [facility] [address] [place] [address] USAComplete Blood Count Auto Diffon 96-18-8169Xewa Corpuscular HGB Conc35.7 g/mGYnkf88.5-35.6The [facility] Physician GroupComment on above:Performed By: #### GLULS #### Point of Care testing ,NRBC%0.1 /100{WBC}Normal0-0.5The [facility] Physician GroupComment on above: Performed By: #### GLULS #### Point of Care testing ,White Blood Count2.9 [CFU]/mLLow4.1-10.5The [facility] Physician GroupComment on above:Performed By: #### GLULS #### Point of Care testing ,ECG 12 lead ECGon 88-84-0883EMY 12 lead ECGMERCY HEALTH FA[facility] [place] [address] [place] [id number] Electrocardiograph Report Signed Patient: Brian Meehan MR#: [id number] [id number] : 1945 Acct:[id number] Age/Sex: 80 / M ADM Date: 08/11/25 Loc: Room: [address] [place] [address] Type: ADM IN Attending Dr: John Oconnor [...] Signed By Wendie Rendon MD 1 10/12/24 0847NoWakeMed Cary Hospital Physician GroupEosinophils [#/volume] in Blood by Automated countOrdered By: Robyn Matamoros on 58-41-0720Taznzlsunnt (Bld) [#/Vol] 0.1 10*3/uLNormal0.0-0.45[facility] EastComment on above: Performed By: #### GLULS #### Point of Care testing ,Eosinophils/100 WBC Manual cnt (Bld)Ordered By: Zeynep Lozano on 38-31-3622Ltjcwmxmaip/100 WBC (Bld)1.0 %0.9-7.0[facility] Eosinophils/100 leukocytes in Blood by Automated countOrdered By: Robyn Matamoros on 53-04-0047Ymggotvnlum/100 WBC (Bld)1.8 %Normal.[facility] EastComment on above:Performed By: #### GLULS #### Point of Care testing ,Erythrocyte Sedimentation Rateon 39-94-7270DZL (Bld) [Velocity]15 mm/hNormal 0-19The [facility] Physician GroupComment on above:Result Comment: PERFORMED BY: [address] [place] [address] PATHOLOGIST TUTORING MANAGER GALINA PINEDA M.D.Performed By: #### GLULS #### Point of Care testing ,Erythrocyte distribution width Auto (RBC) [Ratio]Ordered By: Zeynep Lozano on 19-07-7171Fdyviytbvmg distribution width (RBC) [Ratio]14.7 %11.0-15.0 [facility] EastErythrocyte distribution width [Ratio] by Automated countOrdered By: Robyn Matamoros on 50-50-9235Fijbgymkkcu distribution width (RBC) [Ratio]15.0 %High12.0-14.8[facility] EastComment on above:Performed By: #### GLULS #### Point of Care testing ,Erythrocyte sedimentation rate by Photometric methodOrdered By: Robyn Matamoros on 71-68-0382XDM Photometric method (Bld) [Velocity]15 mm/hr0-19[facility] EastErythrocytes [#/volume] in Blood by Automated countOrdered By: Robyn Matamoros on 89-26-6702HCG (Bld) [#/Vol]2.89 10*6/uLLow3.90-5.60[facility] EastComment on above:Performed By: #### GLULS #### Point of Care testing ,Globulin Calc (S) [Mass/Vol]Ordered By: Juan A Welsh on 81-09-8926Oenkolvc (S) [Mass/Vol]2.9 g/dLRegency Hospital Cleveland EastGlomerular filtration rate (GFR) estimation in non- AmericanOrdered By: Juan A Welsh on 08-11-2025 GFR/1.73 sq M.predicted among non-blacks MDRD (S/P/Bld) [Vol rate/Area]55 mL/min/{1.73_m2}Low>=60 mL/min/1.73m 2FUniversity Hospitals TriPoint Medical CenterHIV 1+2 IgG Ab [Presence] in Blood by Rapid immunoassayOrdered By: Bharat Lord on 16-72-9659IUY 1+2 IgG IA.rapid Ql (Bld)Non-ReactiveNonreactiveRegency Hospital Cleveland EastHIV Screen ([facility])on 28-22-0227GQE Screen ([facility]) Non-ReactiveNormalNonreactiveThe [facility] Physician GroupComment on above:Order Comment: Which is this, the Source or the Person with the Exposure?: SOURCE Source Medical Record: [id number] Exposed Medical Record Number: UNKResult Comment: PERFORMED BY: [place] [address] PATHOLOGIST TUTORING MANAGER GALINA PINEDA M.D.Performed By: #### CRP #### [place] [address] USAHematocrit Auto (Bld) [Volume fraction]Ordered By: Zeynep Lozano on 80-27-2834Nnkklvawir (Bld) [Volume fraction]26.7 %Low 42.0-54.0[facility] Cleveland EastHematocrit [Volume Fraction] of Blood by Automated countOrdered By: Robyn Matamoros on 60-48-7880Mpyampghqn (Bld) [Volume fraction]28.0 %Low38.8-50.0[facility] EastComment on above: Performed By: #### GLULS #### Point of Care testing ,Hemoglobin [Mass/volume] in BloodOrdered By: Robyn Matamoros on 08-11-2025 Hemoglobin (Bld) [Mass/Vol]10.0 g/dLLow13.0-17.0[facility] EastComment on above:Performed By: #### GLULS #### Point of Care testing ,Hemoglobin [Mass/volume] in BloodOrdered By: Zeynep Lozano on 08-11-2025 Hemoglobin (Bld) [Mass/Vol]9.2 g/dLLow14.0-18.0[facility] Hep C Ab wRfx to Qnt PCRon 57-20-8423Urjiffzpa C Virus AntibodyNon-Reactive NormalNon ReactiveThe [facility] Physician GroupComment on above:Order Comment: Which is this, the Source or the Person with the Exposure?: SOURCE Source Medical Record: [id number] Exposed Medical Record Number: UNKPerformed By: #### CRP #### [place] [address] USAInterpretation Hepatitis CCommentNormal.The [facility] Physician GroupComment on above:Order Comment: Which is this, the Source or the Person with the Exposure?: SOURCE Source Medical Record: [id number] Exposed Medical Record Number: UNKResult Comment: Not infected with HCV unless early or acute infection is suspected (which may be delayed in an immunocompromised individual), or other evidence exists to indicate HCV infection.Performed By: #### CRP #### [place] [id number] USAHepatitis B Surface Antibodyon 85-74-5183Othcnhxxw B Surface AntibodyNon-ReactiveNormal.The [facility] Physician GroupComment on above:Order Comment: Which is this, the Source or the Person with the Exposure?: SOURCE Source Medical Record: [id number] Exposed Medical Record Number: UNK Result Comment: Non Reactive: Not immune to HBV infection. Anti-HBs undetectable or less than 10 mIU/mL. Reactive: Evidence of HBV immunity. Anti-HBs levels greater than 10 mIU/mL.Performed By: #### CRP #### [place] [id number] USAHepatitis B Surface Antigenon 12-06-0062AQdBe Screen NegativeNormalNegativeThe [facility] Physician GroupComment on above:Order Comment: Which is this, the Source or the Person with the Exposure?: SOURCE Source Medical Record: [id number] Exposed Medical Record Number: UNKResult Comment: Performed at: - [facility] [id number] Hockey Instructor: Mateusz Bardales PhD, Phone: [phone] PERFORMED BY: [place] [address] PATHOLOGIST TUTORING MANAGER GALINA PINEDA M.D.Performed By: #### CRP #### [place] [address] USAHepatitis C virus IgG Ab [Presence] in Serum or Plasma by ImmunoassayOrdered By: Bharat Lord on 06-29-2494NCA IgG IA QlNon-ReactiveNon ReactiveRegency Hospital Cleveland EastINR in Platelet poor plasma by Coagulation assayOrdered By: Zeynep Lozano on 07-56-9010BUD Coag (PPP) [Relative time]1.03 {INR}[facility] EastComment on above: DESIRED INR:2.0-3.0 CONDITIONS NOT LISTED BELOW2.5-3.5 FOR PROSTHETIC HEART VALVE REPLACEMENT2.5-3.5 RECURRENT THROMBOSISLaboratory - Chemistry and Chemistry - challengeOrdered By: Juan A Welsh on 99-16-8485Laediaw [Mass/Vol] 4.0 g/dL3.4-5.0[facility] Cleveland EastALP [Catalytic activity/Vol]109 U/I88-647YgvskfognRegency [facility] [[facility]ytic activity/Vol]43 U/L 16-63[facility]AST [Catalytic activity/Vol]27 U/L15-37 [facility] EastBilirubin [Mass/Vol]0.6 mg/dL0.2-1.0[facility] EastCalcium [Mass/Vol]9.1 mg/dL8.5-10.1FUniversity Hospitals TriPoint Medical CenterChloride [Moles/Vol]107 mmol/Y91-067TbppovfflRegency Hospital [facility] EastCO2 [Moles/Vol]27.8 mmol/L21.0-32.0[facility] Creatinine [Mass/Vol]1.26 mg/dL0.70-1.30[facility] GFR/1.73 sq M.predicted MDRD (S/P/Bld) [Vol rate/Area]mL/min/{1.73_m2}>=60 mL/min/1.73m 2FUniversity Hospitals TriPoint Medical CenterGlucose [Mass/Vol]146 mg/dLHigh 74-106[facility] EastPotassium [Moles/Vol]3.8 mmol/L3.5-5.1 [facility] EastProtein [Mass/Vol]6.9 g/dL6.4-8.2FMarietta Osteopathic Clinicodium [Moles/Vol]143 mmol/D244-572CztkufvsuRegency Hospital [facility] EastUrea nitrogen [Mass/Vol]30.0 mg/dLHigh7.0-18.0[facility] EastUrea nitrogen/Creatinine [Mass ratio]23.8 mg/mgRegency Hospital [facility] EastLaboratory - Chemistry and Chemistry - challengeOrdered By: Zeynep Lozano on 76-04-9795Lozfxbh [Moles/Vol]1.0 mmol/L0.4-2.0[facility] EastLaboratory - Hematology and Cell countsOrdered By: Zeynep Lozano on 03-45-3301Feevtzzaqrh/100 WBC (Bld)15.0 %Low20.5-60.0 [facility] EastMonocytes/100 WBC (Bld)4.0 %1.7-12.0[facility] EastLeukocytes [#/volume] corrected for nucleated erythrocytes in Blood by Automated counOrdered By: Robyn Matamoros on 20-79-4500EHJ corrected for nucl RBC Auto (Bld) [#/Vol]2.9 10*3/uLLow4.1-10.5FUniversity Hospitals TriPoint Medical CenterLeukocytes [#/volume] corrected for nucleated erythrocytes in Blood by Automated counOrdered By: Zeynep Lozano on 20-13-4155RIP corrected for nucl RBC Auto (Bld) [#/Vol]3.9 10 3/uLLow4.0-11.0 [facility] EastLeukocytes [#/volume] in Blood by Automated countOrdered By: Robyn Matamoros on 22-47-6275PAU (Bld) [#/Vol]2.9 10*3/uLLow 4.1-10.5FUniversity Hospitals TriPoint Medical CenterComment on above:Performed By: #### GLULS #### Point of Care testing ,Lymphocytes [#/volume] in Blood by Automated countOrdered By: Robyn Matamoros on 21-76-9644Xwlboliehnx (Bld) [#/Vol]0.4 10*3/uLLow1.00-4.8[facility] EastComment on above:Performed By: #### GLULS #### Point of Care testing ,Lymphocytes/100 leukocytes in Blood by Automated countOrdered By: Robyn Matamoros on 18-76-9602Ytdokaxuzbg/100 WBC (Bld)12.3 %Normal.[facility] EastComment on above:Performed By: #### GLULS #### Point of Care testing ,MCH Auto (RBC) [Entitic mass]Ordered By: Zeynep Lozano on 98-07-2710WAF (RBC) [Entitic mass]34.3 lgXdkj60.9-34.0[facility] [Entitic mass] by Automated countOrdered By: Robyn Matamoros on 44-12-3578UXV (RBC) [Entitic mass]34.6 bsVgtfjm57.5-35.2FUniversity Hospitals TriPoint Medical CenterComment on above:Performed By: #### GLULS #### Point of Care testing ,MCHC Auto (RBC) [Mass/Vol]Ordered By: Robyn Matamoros on 80-58-5241YOCR (RBC) [Mass/Vol]35.7 g/hXJjnk92.5-35.6FUniversity Hospitals TriPoint Medical CenterMCHC Auto (RBC) [Mass/Vol]Ordered By: Zeynep Lozano on 84-06-0525GKSP (RBC) [Mass/Vol]34.2 g/dL29.9-35.2FUniversity Hospitals TriPoint Medical CenterMCV Auto (RBC) [Entitic vol] Ordered By: Zeynep Lozano on 65-66-1728ZDL (RBC) [Entitic vol]100.3 fLHigh 80.0-94.0[facility] EastMCV [Entitic volume] by Automated countOrdered By: Robyn Matamoros on 98-53-0814DIL (RBC) [Entitic vol]96.8 fLNormal 83.5-101[facility] EastComment on above:Performed By: #### GLULS #### Point of Care testing ,Monocytes [#/volume] in Blood by Automated countOrdered By: Robyn Matamoros on 01-05-4378Sxrdxwfeb (Bld) [#/Vol]0.1 10*3/uLNormal0.0-0.8[facility] EastComment on above:Performed By: #### GLULS #### Point of Care testing ,Monocytes/100 leukocytes in Blood by Automated countOrdered By: Robyn Matamoros on 85-58-6701Opvdrnpee/100 WBC (Bld)4.4 %Normal.[facility] Comment on above:Performed By: #### GLULS #### Point of Care testing ,Neutrophils [#/volume] in Blood by Automated countOrdered By: Robyn Matamoros on 36-20-4175Ytnnpgcqxgo (Bld) [#/Vol]2.4 10*3/uLNormal1.8-7.7FUniversity Hospitals TriPoint Medical CenterComment on above:Performed By: #### GLULS #### Point of Care testing ,Neutrophils/100 leukocytes in Blood by Automated countOrdered By: Robyn Matamoros on 43-78-9327Rznakvefcfm/100 WBC (Bld)81.2 %Normal.[facility] EastComment on above:Performed By: #### GLULS #### Point of Care testing ,No Panel InformationOrdered By: Bharat Lord on 56-97-6724Loodbxmev C InterpretationComment.[facility] EastComment on above:Not infected with HCV unless early or acute infection issuspected (which may be delayed in an immunocompromisedindividual), or other evidence exists to indicate HCVinfection.No Panel InformationOrdered By: Zeynep Lozano on 08-11-2025 Absolute Basophils (Manual)0.00 10 3/uL0.00-0.10[facility] EastEosinophils # (Manual)0.03 10 3/uL0.00-0.70[facility] EastLymphocytes # (Manual)0.58 10 3/uLLow1.20-3.80[facility] EastMonocytes # (Manual)0.15 10 3/uLLow0.30-0.80[facility] Systemegmented Neutrophils # (Manual)3.12 10 3/uL1.4-6.5FUniversity Hospitals TriPoint Medical CenterNucleated erythrocytes [Presence] in Blood by Automated count Ordered By: Robyn Matamoros on 39-20-9995Poufkqaif RBC Auto Ql (Bld)0.1 /100{WBC} 0-0.5FUniversity Hospitals TriPoint Medical CenterPlatelet mean volume Auto (Bld) [Entitic vol]Ordered By: Zeynep Lozano on 57-09-9580Afsjikxd mean volume (Bld) [Entitic vol]10.6 fL9.5-13.5FUniversity Hospitals TriPoint Medical CenterPlatelet mean volume [Entitic volume] in Blood by Automated countOrdered By: Robyn Matamoros on 69-94-6928Vakaprgd mean volume (Bld) [Entitic vol]8.1 fLNormal6.6-10.1FUniversity Hospitals TriPoint Medical CenterComment on above:Performed By: #### GLULS #### Point of Care testing ,Platelets Auto (Bld) [#/Vol]Ordered By: Zeynep Lozano on 08-11-2025 Platelets (Bld) [#/Vol]77 10 3/qCAau234-952XtutpdtpcRegency Hospital [facility] Platelets [#/volume] in Blood by Automated countOrdered By: Robyn Matamoros on 41-68-9604Qjhudjkde (Bld) [#/Vol]80 10*3/oTRjz833-231KlqogmsioRegency Hospital [facility] EastComment on above:Performed By: #### GLULS #### Point of Care testing ,Prothrombin time (PT)Ordered By: Zyenep Lozano on 62-22-4601LS Coag (PPP) [Time]10.9 s9.0-11.6[facility] CenterRBC Auto (Bld) [#/Vol] Ordered By: Zeynep Lozano on 55-23-1086VMX (Bld) [#/Vol]2.97 10 6/uLLow 4.70-6.10The [facility] Systemegmented neutrophils/100 WBC Manual cnt (Bld)Ordered By: Zeynep Lozano on 01-81-2767Qeyiyniip neutrophils/100 WBC (Bld)80.0 %High43.0-75.0[facility] Systemerum hepatitis B virus surface antibody detectionOrdered By: Bharat Lord on 38-46-7868GZW surface Ab Ql (S)Non-Reactive.[facility] EastComment on above:Non Reactive: Not immune to HBV infection. Anti-HBs undetectable or less than 10 mIU/mL. Reactive: Evidence of HBV immunity. Anti-HBs levels greater than 10 mIU/mL.Serum or plasma albumin/globulin mass ratioOrdered By: Juan A Welsh on 98-65-8431Fkpqzyp/Globulin [Mass ratio]1.4 {ratio}[facility] Systemerum or plasma anion gap determinationOrdered By: Juan A Welsh on 64-04-3658Ldaob gap [Moles/Vol]12.0 mmol/LFMarietta Osteopathic Clinicerum or plasma hepatitis B virus surface antigen detection by immunoassayOrdered By: Bharat Lord on 32-85-3312MAT surface Ag IA QlNegativeNegativeRegency Hospital [facility] EastComment on above:Performed at: - Lab[address] [id number] Director: Mateusz Bardales PhD, Phone: [phone] Anisocytosis LM Ql (Bld)Ordered By: Bj Ortega on 34-05-5750Ycycxkkeexjr Ql (Bld)1+[facility] EastBasophils/100 WBC Manual cnt (Bld) Ordered By: Bj Ortega on 89-40-2110Ckhitxpkw/100 WBC (Bld)0.0 %Low0.2-2.0 [facility] EastEosinophils/100 WBC Manual cnt (Bld)Ordered By: Bj Ortega on 79-09-2713Tuedmrenmqv/100 WBC (Bld)0.0 %Low0.9-7.0[facility] EastErythrocyte distribution width Auto (RBC) [Ratio]Ordered By: Bj Ortega on 47-81-6910Mjtxxzqmqyx distribution width (RBC) [Ratio]14.6 %11.0-15.0[facility] EastGlomerular filtration rate (GFR) estimation in non- AmericanOrdered By: Bj Ortega on 05-20-2025 GFR/1.73 sq M.predicted among non-blacks MDRD (S/P/Bld) [Vol rate/Area] mL/min/{1.73_m2}>=60 mL/min/1.73m 2FUniversity Hospitals TriPoint Medical CenterHematocrit Auto (Bld) [Volume fraction]Ordered By: Bj Ortega on 49-99-9250Vdlzishpjl (Bld) [Volume fraction]30.1 %Low42.0-54.0[facility] Hemoglobin [Mass/volume] in BloodOrdered By: Bj Ortega on 05-20-2025 Hemoglobin (Bld) [Mass/Vol]10.3 g/dLLow14.0-18.0[facility] EastLaboratory - Chemistry and Chemistry - challengeOrdered By: Bj Ortega on 36-41-5816Oxsbsgu [Mass/Vol]9.0 mg/dL8.5-10.1FUniversity Hospitals TriPoint Medical CenterChloride [Moles/Vol]106 mmol/Y29-903ExdoxsmzlRegency Hospital [facility] EastCO2 [Moles/Vol]32.2 mmol/LHigh21.0-32.0[facility] EastCreatinine [Mass/Vol]1.07 mg/dL0.70-1.30[facility] EastGFR/1.73 sq M.predicted MDRD (S/P/Bld) [Vol rate/Area]mL/min/{1.73_m2}>=60 mL/min/1.73m 2 [facility] EastGlucose [Mass/Vol]131 mg/aWPldr46-150PcqiwegtrRegency Hospital [facility] EastPotassium [Moles/Vol]3.5 mmol/L3.5-5.1FMarietta Osteopathic Clinicodium [Moles/Vol]138 mmol/D468-341KmapzihkuRegency Hospital [facility] EastUrea nitrogen [Mass/Vol]25.0 mg/dLHigh7.0-18.0[facility] EastUrea nitrogen/Creatinine [Mass ratio]23.4 mg/mgRegency Hospital [facility] EastLaboratory - Hematology and Cell countsOrdered By: Bj Ortega on 35-49-5668Wkctfmexswe/100 WBC (Bld)18.0 %Low20.5-60.0[facility] EastMonocytes/100 WBC (Bld)3.0 %1.7-12.0[facility] Leukocytes [#/volume] corrected for nucleated erythrocytes in Blood by Automated counOrdered By: Bj Ortega on 18-86-1876DSG corrected for nucl RBC Auto (Bld) [#/Vol]3.0 10 3/uLLow4.0-11.0[facility] HospitalH Auto (RBC) [Entitic mass]Ordered By: Bj Ortega on 68-56-9914DTW (RBC) [Entitic mass]34.2 vfTlrl72.9-34.0[facility] HospitalHC Auto (RBC) [Mass/Vol]Ordered By: Bj Ortega on 21-09-2953GPYR (RBC) [Mass/Vol]34.2 g/dL 29.9-35.2FUniversity Hospitals TriPoint Medical CenterMCV Auto (RBC) [Entitic vol]Ordered By: Bj Ortega on 50-38-8737BNS (RBC) [Entitic vol]100.0 kPXuei48.0-94.0 [facility] EastMacrocytes LM Ql (Bld)Ordered By: Bj Ortega on 51-92-6810Chztibswca Ql (Bld)1+[facility] EastNo Panel InformationOrdered By: Bj Ortega on 42-51-5950Npvzvtwx Basophils (Manual) 0.00 10 3/uL0.00-0.10[facility] EastEosinophils # (Manual)0.00 10 3/uL0.00-0.70[facility] EastLymphocytes # (Manual)0.54 10 3/uLLow1.20-3.80[facility] EastMonocytes # (Manual)0.09 10 3/uLLow0.30-0.80[facility] Systemegmented Neutrophils # (Manual)2.37 10 3/uL1.4-6.5FUniversity Hospitals TriPoint Medical CenterPlatelet mean volume Auto (Bld) [Entitic vol]Ordered By: Bj Ortega on 74-38-9541Qgizddfv mean volume (Bld) [Entitic vol]9.9 fL9.5-13.5FUniversity Hospitals TriPoint Medical Center Platelets Auto (Bld) [#/Vol]Ordered By: Bj Ortega on 71-72-2383Lyrrpzajj (Bld) [#/Vol]76 10 3/oZYph589-585KdkrhpvywRegency Hospital [facility] EastRBC Auto (Bld) [#/Vol]Ordered By: Bj Ortega on 95-11-8153YEY (Bld) [#/Vol]3.01 10 6/uLLow 4.70-6.10[facility] Systemegmented neutrophils/100 WBC Manual cnt (Bld)Ordered By: Bj Ortega on 47-25-6927Rkbybyuxb neutrophils/100 WBC (Bld)79.0 %High43.0-75.0[facility] Systemerum or plasma anion gap determinationOrdered By: Bj Ortega on 86-26-7083Vinrb gap [Moles/Vol]3.3 mmol/LFUniversity Hospitals TriPoint Medical CenterNo Panel Informationon 08-04-2024 Oxcarbazepine Level39 ug/lBGaoeruqm21-90XmeojzyocRegency Hospital Cleveland EastComment on above:This test was developed and its performance characteristicsdetermined by [facility]. It has not been cleared orapproved by the Food and Drug Administration. Detection Limit = 1Performed at: [facility] - [address] [place], [place] [id number] Director: Natacha Burdick MD, Phone: [phone] 1 houron 34-01-5771LamPbyyroCaroMont Regional Medical Centerurgical Pathology Ordered By: Nay Thacker on 90-89-1830XoaXektjcCleveland ClinicLaboratory - Chemistry and Chemistry - challengeon 62-89-0252Dommqsakr Ql (U)NegativeNEGATIVE [facility] EastGlucose (U) [Mass/Vol]NegativeNEGATIVERegency Hospital Cleveland EastKetones Ql (U)NegativeNEGATIVERegency Hospital Cleveland EastpH (U)5.5 [pH]5.0-9.0The [facility] Systempecific gravity (U) [Rel density]1.0251.005-1.025[facility] EastUrobilinogen Qn (U)0.2 {Jun'U}/dL0.2-1.0[facility] EastLaboratory - Specimen informationon 92-60-9677Sxlfuwubrn (U)CLEARCLEARFUniversity Hospitals TriPoint Medical CenterColor (U)LT. YELLOWYELLOWRegency Hospital [facility] Laboratory - Urinalysison 01-39-9044Fttsdyssh esterase Test strip Ql (U)SMALL AbnormalNEGRiverside Methodist HospitalMucus Ql (Urine sed)NONE SEEN NONE [facility] TroyNitrite Ql (U)PositiveAbnormalNEGATIVE [facility] EastProtein Ql (U)100 mg/dLAbnormalNEG/TRACE [facility] EastNo Panel Informationon 77-76-4696Ozekc Bacteria MODERATE #/HPFAbnormalNONE [facility] TroyUrine Occult BloodNegativeNEGRiverside Methodist HospitalUrine Other CastsNONE SEEN #/LPFNONE [facility] TroyUrine Other CrystalsNone Seen #/HPFNone [facility] CenterUrine RBC0-2 #/HPF0-2FUniversity Hospitals TriPoint Medical CenterUrine Squamous Epithelial CellsRARE #/LPFNONE/RARE [facility] EastUrine YBQ64-29 #/HPFAbnormalNONE [facility] TroyBasophils/100 WBC Manual cnt (Bld)on 06-27-2024 Basophils/100 WBC (Bld)0.0 %Low0.2-2.0[facility] Cholesterol in LDL Calc [Mass/Vol]on 03-06-6985Kvfrxqdldas in LDL [Mass/Vol]43.0 mg/dLRegency Hospital [facility] EastComment on above:<100 mg/dl TVRQCBJ934- 129 mg/dl NEAR OR ABOVE MUAQVJY063-531 mg/dl BORDERLINE BTRD115-700 mg/dl H IGH>190 mg/dl VERY HIGHCholesterol in VLDL Calc [Mass/Vol]on 06-27-2024 Cholesterol in VLDL [Mass/Vol]18.0 mg/dLRegency Hospital [facility] Eosinophils/100 WBC Manual cnt (Bld)on 86-60-2699Hxhwhosfbuf/100 WBC (Bld)0.0 % Low0.9-7.0[facility] EastErythrocyte distribution width Auto (RBC) [Ratio]on 53-12-4943Uzxttpwkgti distribution width (RBC) [Ratio]15.2 %High 11.0-15.0[facility] EastEstimated glomerular filtration rate (GFR) non- Americanon 88-50-3573ENF/1.73 sq M.predicted among non-blacks MDRD (S/P/Bld) [Vol rate/Area]mL/min/{1.73_m2}>=60[facility] EastGlobulin Calc (S) [Mass/Vol]on 04-69-8653Lkjpqwbt (S) [Mass/Vol]2.8 g/dL [facility] EastGlucose mean value [Mass/volume] in Blood Estimated from glycated hemoglobinon 29-42-8277Ifsuyno glucose Estimated from glycated hemoglobin (Bld) [Mass/Vol]85 mg/dLRegency Hospital [facility] Hematocrit Auto (Bld) [Volume fraction]on 01-88-1580Fdhflvstln (Bld) [Volume fraction]28.8 %Low42.0-54.0[facility] EastHemoglobin [Mass/volume] in Bloodon 75-06-6348Nlhutilswk (Bld) [Mass/Vol]10.0 g/dLLow 14.0-18.0[facility] EastLaboratory - Chemistry and Chemistry - challengeon 63-43-3303Vnrclzp [Mass/Vol]3.7 g/dL3.4-5.0[facility] EastALP [Catalytic activity/Vol]92 U/P80-105VrloqdzucRegency Hospital [facility] EastALT [Catalytic activity/Vol]48 U/J81-84XhljrhlcrRegency [facility] AST [Catalytic activity/Vol]24 U/W40-26CegeshnwrRegency [facility] Bilirubin [Mass/Vol]0.7 mg/dL0.2-1.0[facility] EastCalcium [Mass/Vol]8.8 mg/dL8.5-10.1FUniversity Hospitals TriPoint Medical CenterChloride [Moles/Vol] 103 mmol/Y69-929EhdfahkgyRegency Hospital [facility] EastCholesterol [Mass/Vol]133 mg/dL <=200[facility] EastCholesterol in HDL [Mass/Vol]72 mg/dLHigh 40-60[facility] EastComment on above:> or =60 mg/dl - LOW CARDIOVASCULAR RISK<40 mg/dl - HIGH CARDIOVASCULAR RISKCO2 [Moles/Vol]33.1 mmol/LHigh21.0-32.0[facility] EastCreatinine [Mass/Vol]1.10 mg/dL0.70-1.30[facility] EastGFR/1.73 sq M.predicted MDRD (S/P/Bld) [Vol rate/Area]mL/min/{1.73_m2}>=60[facility] Glucose [Mass/Vol]175 mg/yXQmty47-999ZkfxsyuxfRegency Hospital [facility] EastPotassium [Moles/Vol]4.1 mmol/L3.5-5.1FUniversity Hospitals TriPoint Medical CenterProtein [Mass/Vol] 6.5 g/dL6.4-8.2FMarietta Osteopathic Clinicodium [Moles/Vol]140 mmol/L 136-145[facility] EastTriglyceride [Mass/Vol]90 mg/dL<=150 [facility] EastUrea nitrogen [Mass/Vol]28.0 mg/dLHigh7.0-18.0 [facility] EastUrea nitrogen/Creatinine [Mass ratio]25.5 mg/mg [facility] EastLaboratory - Hematology and Cell countson 70-31-2736IaD3g (Bld) [Mass fraction]4.6 %4.5-6.2FUniversity Hospitals TriPoint Medical CenterComment on above:ADA RECOMMENDED LIMIT 4.0 - 6.0ADA THERAPEUTIC TARGET < 7.0ACTION SUGGESTED> 7.0Lymphocytes/100 WBC (Bld)18.0 %Low20.5-60.0[facility] EastMonocytes/100 WBC (Bld)10.0 %1.7-12.0[facility] EastLeukocytes [#/volume] corrected for nucleated erythrocytes in Blood by Automated counon 71-97-7475FIB corrected for nucl RBC Auto (Bld) [#/Vol]3.1 10 3/uLLow4.0-11.0[facility] HospitalH Auto (RBC) [Entitic mass]on 81-65-0040CPP (RBC) [Entitic mass]34.4 dbEcpi18.9-34.0[facility] EastMCHC Auto (RBC) [Mass/Vol]on 69-74-5150DBEN (RBC) [Mass/Vol]34.7 g/dL29.9-35.2FUniversity Hospitals TriPoint Medical CenterMCV Auto (RBC) [Entitic vol]on 47-69-6516SAI (RBC) [Entitic vol]99.0 kSGfge07.0-94.0[facility] EastNo Panel Informationon 31-39-0289Qnruwgow Basophils (Manual)0.00 10 3/uL0.00-0.10[facility] EastEosinophils # (Manual)0.00 10 3/uL0.00-0.70[facility] EastLymphocytes # (Manual)0.55 10 3/uLLow1.20-3.80[facility] EastMonocytes # (Manual)0.31 10 3/uL0.30-0.80[facility] Systemegmented Neutrophils # (Manual)2.23 10 3/uL1.4-6.5FUniversity Hospitals TriPoint Medical Center Platelet mean volume Auto (Bld) [Entitic vol]on 91-52-9233Jvpoqjow mean volume (Bld) [Entitic vol]10.3 fL9.5-13.5FUniversity Hospitals TriPoint Medical CenterPlatelets Auto (Bld) [#/Vol]on 90-59-6905Vvivsoyib (Bld) [#/Vol]86 10 3/qNRyn789-406 [facility] EastRBC Auto (Bld) [#/Vol]on 86-74-5919UZD (Bld) [#/Vol]2.91 10 6/uLLow4.70-6.10[facility] Systemegmented neutrophils/100 WBC Manual cnt (Bld)on 18-73-4992Isnmogvmd neutrophils/100 WBC (Bld)72.0 %43.0-75.0[facility] Systemerum or plasma albumin/globulin mass ratioon 52-17-3634Ubqamib/Globulin [Mass ratio]1.3 {ratio} [facility] Systemerum or plasma anion gap determinationon 64-15-3724Kilwp gap [Moles/Vol]8.0 mmol/LFMarietta Osteopathic Clinicerum or plasma total cholesterol/high density lipoprotein (HDL) cholesterol mass rat on 99-47-2301Cmaaykqgdvz.total/Cholesterol in HDL [Mass ratio]1.8 {ratio} [facility] EastComment on above:3.3 - 4.4 LOW RISK4.4 - 7.1 AVERAGE RISK7.1 - 11.0 MODERATE RISK>11.0 HIGH RISKBasophils Auto (Bld) [#/Vol] on 84-88-4350Inlxenrbf (Bld) [#/Vol]0.0 10 3/uL0.0-0.1FUniversity Hospitals TriPoint Medical CenterBasophils/100 WBC Auto (Bld)on 11-45-6570Tjchdtfbv/100 WBC (Bld)0.2 % 0.2-2.0[facility] EastEosinophils/100 WBC Auto (Bld)on 91-63-8836Ucgunzjkgbw/100 WBC (Bld)0.0 %0.9-7.0[facility] Erythrocyte distribution width Auto (RBC) [Ratio]on 63-98-0319Yopylhwgpif distribution width (RBC) [Ratio]15.2 %11.0-15.0[facility] Estimated glomerular filtration rate (GFR) non- Americanon 02-15-2024 GFR/1.73 sq M.predicted among non-blacks MDRD (S/P/Bld) [Vol rate/Area] mL/min/{1.73_m2}>=60[facility] EastGlobulin Calc (S) [Mass/Vol]on 57-78-0918Uekflris (S) [Mass/Vol]3.1 g/dLRegency Hospital Cleveland EastHematocrit Auto (Bld) [Volume fraction]on 67-41-3977Rjktfevztn (Bld) [Volume fraction]29.3 %42.0-54.0[facility] EastHemoglobin [Mass/volume] in Bloodon 40-58-5244Wetpicmhtu (Bld) [Mass/Vol]9.7 g/dL14.0-18.0 [facility] EastLaboratory - Chemistry and Chemistry - challengeon 53-25-4253Owfdqio [Mass/Vol]3.4 g/dL3.4-5.0[facility] EastALP [Catalytic activity/Vol]90 U/N77-844XistguznkRegency Hospital [facility] EastALT [Catalytic activity/Vol]31 U/B64-95DuxwcwuypRegency [facility] AST [Catalytic activity/Vol]28 U/O38-92DqfwskablRegency [facility] Bilirubin [Mass/Vol]0.5 mg/dL0.2-1.0[facility] EastCalcium [Mass/Vol]9.1 mg/dL8.5-10.1FUniversity Hospitals TriPoint Medical CenterChloride [Moles/Vol] 107 mmol/U87-057GxbkppemwRegency Hospital [facility] EastCO2 [Moles/Vol]28.2 mmol/L 21.0-32.0[facility] EastCreatinine [Mass/Vol]0.98 mg/dL 0.70-1.30[facility] EastGFR/1.73 sq M.predicted MDRD (S/P/Bld) [Vol rate/Area]mL/min/{1.73_m2}>=60[facility] EastGlucose [Mass/Vol]184 mg/fD62-640KidwxgbejRegency Hospital Cleveland EastPotassium [Moles/Vol] 3.6 mmol/L3.5-5.1FUniversity Hospitals TriPoint Medical CenterProtein [Mass/Vol]6.5 g/dL 6.4-8.2FMarietta Osteopathic Clinicodium [Moles/Vol]144 mmol/J036-872 [facility] EastUrea nitrogen [Mass/Vol]24.0 mg/dL7.0-18.0 [facility] EastUrea nitrogen/Creatinine [Mass ratio]24.5 mg/mg [facility] EastLaboratory - Hematology and Cell countson 27-19-4591Hlaedidy granulocytes/100 WBC (Bld)0.6 %0.0-0.5FUniversity Hospitals TriPoint Medical CenterLeukocytes [#/volume] corrected for nucleated erythrocytes in Blood by Automated counon 00-95-4296YWL corrected for nucl RBC Auto (Bld) [#/Vol]4.7 10 3/uL4.0-11.0[facility] EastLymphocytes Auto (Bld) [#/Vol]on 52-27-0591Uzmjsapzsqt (Bld) [#/Vol]0.2 10 3/uL1.2-3.8[facility] EastLymphocytes/100 WBC Auto (Bld)on 02-15-2024 Lymphocytes/100 WBC (Bld)5.1 %20.5-60.0[facility] HospitalH Auto (RBC) [Entitic mass]on 01-58-7358LLK (RBC) [Entitic mass]33.3 pg25.9-34.0 [facility] EastMCHC Auto (RBC) [Mass/Vol]on 92-62-7650MUYQ (RBC) [Mass/Vol]33.1 g/dL29.9-35.2FUniversity Hospitals TriPoint Medical CenterMCV Auto (RBC) [Entitic vol]on 31-77-7528UQZ (RBC) [Entitic vol]100.7 fL80.0-94.0 [facility] EastMonocytes Auto (Bld) [#/Vol]on 02-15-2024 Monocytes (Bld) [#/Vol]0.3 10 3/uL0.3-0.8[facility] Monocytes/100 WBC Auto (Bld)on 88-24-0048Gawzbskqq/100 WBC (Bld)7.2 %1.7-12.0 [facility] EastNeutrophils Auto (Bld) [#/Vol]on 02-15-2024 Neutrophils (Bld) [#/Vol]4.1 10 3/uL1.4-6.5FUniversity Hospitals TriPoint [facility] Center Neutrophils/100 WBC Auto (Bld)on 06-28-5054Jlydrqrgecr/100 WBC (Bld)86.9 % 43.0-75.0[facility] EastNo Panel Informationon 02-15-2024 Eosinophils # (Auto)0.0 10 3/uL0.0-0.7FUniversity Hospitals TriPoint Medical CenterImmature Granulocyte # (Auto)0.03 10 3/uL0.00-0.03[facility] Platelet mean volume Auto (Bld) [Entitic vol]on 47-05-1207Walfsozk mean volume (Bld) [Entitic vol]10.6 fL9.5-13.5FUniversity Hospitals TriPoint Medical CenterPlatelets Auto (Bld) [#/Vol]on 37-21-4539Humpynowv (Bld) [#/Vol]60 10 3/nK288-389AiclwcigwRegency Hospital Cleveland EastRBC Auto (Bld) [#/Vol]on 02-67-4779TUE (Bld) [#/Vol]2.91 10 6/uL4.70-6.10[facility] Systemerum or plasma albumin/globulin mass ratioon 09-57-0027Ykbleol/Globulin [Mass ratio]1.1 {ratio} [facility] Systemerum or plasma anion gap determinationon 68-33-6624Ivryq gap [Moles/Vol]12.4 mmol/LFUniversity Hospitals TriPoint Medical Center Basophils/100 WBC Manual cnt (Bld)on 70-96-0929Tlqnokfaf/100 WBC (Bld)1.0 % 0.2-2.0[facility] EastCasts typing in urine sediment by light microscopyon 67-23-8648Lubvp LM Nom (Urine sed)NONE SEEN #/LPFNONE SEENRegency Hospital [facility] EastEosinophils/100 WBC Manual cnt (Bld)on 02-14-2024 Eosinophils/100 WBC (Bld)0.0 %0.9-7.0[facility] Erythrocyte distribution width Auto (RBC) [Ratio]on 20-79-8915Ohadoqbxpsk distribution width (RBC) [Ratio]15.0 %11.0-15.0[facility] Estimated glomerular filtration rate (GFR) non- Americanon 02-14-2024 GFR/1.73 sq M.predicted among non-blacks MDRD (S/P/Bld) [Vol rate/Area] mL/min/{1.73_m2}>=60[facility] EastHematocrit Auto (Bld) [Volume fraction]on 84-92-2360Tynmgiyctb (Bld) [Volume fraction]28.2 %42.0-54.0 [facility] EastHemoglobin [Mass/volume] in Bloodon 02-14-2024 Hemoglobin (Bld) [Mass/Vol]9.6 g/dL14.0-18.0[facility] Laboratory - Chemistry and Chemistry - challengeon 81-28-3841Bguwlffuw Ql (U) NegativeNEGATIVERegency Hospital Cleveland EastGlucose (U) [Mass/Vol]250 mg/dL NEGATIVERegency Hospital Cleveland EastKetones Ql (U)NegativeNEGATIVERegency Hospital Cleveland EastpH (U)5.5 [pH]5.0-9.0[facility] Specific gravity (U) [Rel density]1.0251.005-1.025[facility] EastUrobilinogen Qn (U)0.2 {Jun'U}/dL0.2-1.0[facility] EastCalcium [Mass/Vol]8.7 mg/dL8.5-10.1FUniversity Hospitals TriPoint Medical Center Chloride [Moles/Vol]106 mmol/R78-839XjsjourbgRegency Hospital Cleveland EastCO2 [Moles/Vol]30.0 mmol/L21.0-32.0[facility] EastCreatinine [Mass/Vol]1.12 mg/dL0.70-1.30[facility] EastGFR/1.73 sq M.predicted MDRD (S/P/Bld) [Vol rate/Area]mL/min/{1.73_m2}>=60[facility] EastGlucose [Mass/Vol]251 mg/uC03-369WvwcvzoqgRegency Hospital [facility] East Potassium [Moles/Vol]4.1 mmol/L3.5-5.1FMarietta Osteopathic Clinicodium [Moles/Vol]142 mmol/O122-333OepqzklrsRegency Hospital Cleveland EastUrea nitrogen [Mass/Vol]29.0 mg/dL7.0-18.0[facility] EastUrea nitrogen/Creatinine [Mass ratio]25.9 mg/mgRegency Hospital [facility] East Laboratory - Hematology and Cell countson 41-80-5735Siva form neutrophils/100 WBC (Bld)2.0 %0-5FUniversity Hospitals TriPoint Medical CenterLymphocytes/100 WBC (Bld)1.0 % 20.5-60.0[facility] EastMonocytes/100 WBC (Bld)4.0 %1.7-12.0 [facility] EastLaboratory - Microbiology and Antimicrobial susceptibilityOrdered By: Bj Ortega on 36-85-2187Pjaezmmx identified Cx Nom (U)[facility] EastLaboratory - Specimen informationon 91-32-1172Zkmyzpneuo (U)CLEARCLEARFUniversity Hospitals TriPoint Medical CenterColor (U) YELLOWYELLOWRegency Hospital [facility] EastLaboratory - Urinalysison 51-99-1542Gqrwjtyle sediment LM Ql (Urine sed)[facility] HospitalLeukocyte esterase Test strip Ql (U)NegativeNEGATIVERegency Hospital Cleveland EastNitrite Ql (U)PositiveNEGATIVERegency Hospital [facility] East Protein Ql (U)>=300 mg/dLNEG/TRACERegency Hospital Cleveland EastLeukocytes [#/volume] corrected for nucleated erythrocytes in Blood by Automated counon 44-12-1668FGE corrected for nucl RBC Auto (Bld) [#/Vol]4.5 10 3/uL4.0-11.0 [facility] HospitalH Auto (RBC) [Entitic mass]on 42-68-7326DFU (RBC) [Entitic mass]34.2 pg25.9-34.0[facility] EastMCHC Auto (RBC) [Mass/Vol]on 54-02-6689SAFS (RBC) [Mass/Vol]34.0 g/dL29.9-35.2FUniversity Hospitals TriPoint Medical CenterMCV Auto (RBC) [Entitic vol]on 38-31-1338VWK (RBC) [Entitic vol]100.4 fL80.0-94.0[facility] EastMucus LM Ql (Urine sed)on 03-32-4056Tasxa Ql (Urine sed)NONE SEENNONE SEENRegency Hospital Cleveland EastNo Panel Informationon 21-26-0399Phbhw BacteriaLARGE #/HPFNONE [facility] TroyUrine Culture ReflexedYECleveland Clinic South Pointe HospitalUrine Occult BloodLARGENEGATIVERegency Hospital [facility] East Urine Other CrystalsSeen #/HPFNone [facility] Medical CenterUrine RBC0-2 #/HPF0-2FUniversity Hospitals TriPoint Medical CenterUrine Squamous Epithelial Cells RARE #/LPFNONE/RARERegency Hospital Cleveland EastUrine WBC2-5 #/HPFNONE SEEN [facility] EastAbsolute Basophils (Manual)0.04 10 3/uL 0.00-0.10[facility] EastBand Neutrophils # (Manual)0.1 10 3/uL 0.0-0.3FUniversity Hospitals TriPoint Medical CenterEosinophils # (Manual)0.00 10 3/uL 0.00-0.70[facility] EastLymphocytes # (Manual)0.04 10 3/uL 1.20-3.80[facility] EastMonocytes # (Manual)0.18 10 3/uL 0.30-0.80The Metro[facility] Systemegmented Neutrophils # (Manual)4.14 10 3/uL1.4-6.5FUniversity Hospitals TriPoint Medical CenterPlatelet mean volume Auto (Bld) [Entitic vol]on 67-53-5827Zimqdpyx mean volume (Bld) [Entitic vol]10.4 fL 9.5-13.5FUniversity Hospitals TriPoint Medical CenterPlatelets Auto (Bld) [#/Vol]on 86-58-6523Hqooxxyxi (Bld) [#/Vol]65 10 3/dF313-001YmdcdwtouRegency Hospital Cleveland EastRBC Auto (Bld) [#/Vol]on 37-74-6119OIK (Bld) [#/Vol]2.81 10 6/uL4.70-6.10 The [facility] Systemegmented neutrophils/100 WBC Manual cnt (Bld) on 61-89-7496Qjhtavlvs neutrophils/100 WBC (Bld)92.0 %The MetroHealth Systemerum or plasma anion gap determinationon 28-63-2340Waquw gap [Moles/Vol] 10.1 mmol/LFMarietta Osteopathic Cliniccreenson 95-97-1320Kujcauj [id number]#1.00CD:127NormalMercy Health Anderson HospitalAmbulatory Visit Summaryon 44-47-4475Tmjuocrvpz Visit Summary BRIAN MEEHAN :1945 Visit Date:12/11/2022 [...] the Following Appointments Follow Up with YEFRI HUIAZR, ROSALINDA Mckeon When: Only if needed Comments: PRN Where: [address] [place] [address]- Medications What How Much When Instructions Unchanged [...] milk, and fortified (more content not included)...[facility] InstituteLab Reportson 71-61-0235Gno Reports [id number]#1.00CD:127NormalJd Saint Luke InstitutePatient Educationon 83-43-4341Ksrtgci EducationUrology Dietary Guidelines to Help Prevent Kidney [...] Rhubarb. ? Beets. ? Potato chips and kazakh fries. ? Nuts. ? If you regularly take a diuretic medicine, make sure to eat at least 1?2 fruits or vegetables high in potassium each day. These include: ? Avocado. ? Banana. ? Reeves, prune, carrot, or tomato juice. ? Baked [...] with salt. Salad dr (more content not included)...NormalMercy Health Anderson HospitalRAD - MISSampson Regional Medical Center 48-41-1989PNX - MISC [id number]#1.00CD:127NormalMercy Health Anderson HospitalUrology Office/Clinic Noteon 61-08-5380Damofiq Office/Clinic NoteChief Complaint pt here today for [...] HUIZAR, Dominic Handley, URL Only if needed [address] [place] [address]- Additional Instructions: PRN Patient Education Dietary Guidelines [...] CA - Cancer o (more content not included)...[facility] Comment on above:Result Comment: Electronically Signed By: YEFRI HUIZAR, Dominic Handley\.br\Date and Time Signed: 12/11/22 13:59 EST\.br\Electronically Co-Signed By: Annemarie Braun\.br\Date and Time Co-Signed: 12/11/22 13:48ESTXR KUB 1 VIEWon 18-55-9947RR KUB 1 VIEWEXAMINATION: XR KUB 1 VIEW [...] authenticated by: SHAKA BLANCO Date: 2022-12-09 12:10NormalThe [facility] HospitalOXCARBAZEPINE / TRILEPTALon 25-26-7527Wvonryqstmgyz88 ug/mL Critically ptde76-70Nic [facility] HospitalComment on above:Result Comment: This test was developed and its performance characteristics determined by [facility]. It has not been cleared or approved by the Food and Drug Administration. Detection Limit = 1Performed By: #### BMP #### [facility] [address] [place] [address] Dr. Kelly Marquez AUTO DIFFon 44-11-6551SEDP #0.0 103/ulNormal0.0-0.1[facility] HospitalComment on above:Performed By: #### BMP #### [facility] [address] [place] [address] Dr. Kelly Castanedaphils/100 WBC (Bld)0.3 %Normal0.2-2.0[facility] Comment on above:Performed By: #### BMP #### [facility] [address] [place] [address] Dr. Kelly Bernard #0.1 103/ulNormal0.0-0.7The [facility] HospitalComment on above: Performed By: #### BMP #### [facility] [address] [place] [address] Dr. Kelly Liangosinophils/100 WBC (Bld)2.2 %Normal0.9-7.0[facility] Comment on above:Performed By: #### BMP #### [facility] [address] [place] [address] Dr. Kelly Liangrythrocyte distribution width (RBC) [Ratio]14.8 %Bglxfa62.0-15.0 [facility] HospitalComment on above:Performed By: #### BMP #### [facility] [address] [place] [address] Dr. Kelly MukherjeeHematocrit (Bld) [Volume fraction]29.5 %Critically low42.0-54.0 The [facility] HospitalComment on above:Performed By: #### BMP #### [facility] [address] [place] [address] Dr. Kelly MukherjeeHemoglobin (Bld) [Mass/Vol]10.3 g/dLCritically low14.0-18.0The [facility] HospitalComment on above:Performed By: #### BMP #### [facility] [address] [place] [address] Dr. Kelly MukherjeeIG #0.01 10e3/ulNormal0.00-0.03[facility] HospitalComment on above:Performed By: #### BMP #### [facility] [address] [place] [address] Dr. Kelly MukherjeeIG %0.3 %Normal0.0-0.5The [facility] HospitalComment on above: Performed By: #### BMP #### [facility] [address] [place] [address] Dr. Kelly CheneyMPH #0.5 103/ulCritically low1.2-3.8The [facility] Comment on above:Performed By: #### BMP #### [facility] [address] [place] [address] Dr. Kelly Cheneymphocytes/100 WBC (Bld)16.0 %Critically low20.5-60.0The [facility] HospitalComment on above:Performed By: #### BMP #### [facility] [address] [address] [address] Kelly Dumas DIFF REQNONormalThe [facility] HospitalComment on above: Performed By: #### BMP #### [facility] [address] [place] [address] Dr. Kelly Rahman (RBC) [Entitic mass]34.1 pgCritically high25.9-34.0The [facility]odelia HospitalComment on above:Performed By: #### BMP #### [facility] [address] [place] [address] Dr. Kelly Rahman (RBC) [Mass/Vol]34.9 g/pPBdzwmj91.9-35.2The [facility] HospitalComment on above:Performed By: #### BMP #### [facility] [address] [place] [address] Dr. Kelly Rahman (RBC) [Entitic vol]97.7 fLCritically high80.0-94.0The [facility] HospitalComment on above:Performed By: #### BMP #### [facility] [address] [place] [address] Dr. Kelly Rodriguez #0.2 103/ulCritically low0.3-0.8The [facility] HospitalComment on above:Performed By: #### BMP #### [facility] [address] [place] [address] Dr. Kelly Spiveyocytes/100 WBC (Bld)5.8 %Normal1.7-12.0The [facility] Comment on above:Performed By: #### BMP #### [facility] [address] [place] [address] Dr. Kelly Alexis #2.4 103/ulNormal1.4-6.5The [facility] HospitalComment on above:Performed By: #### BMP #### [facility] [address] [place] [address] Dr. Kelly Moralesutrophils/100 WBC (Bld)75.4 %Critically high43.0-75.0The [facility] HospitalComment on above:Performed By: #### BMP #### [facility] [address] [address] [address] Kelly Badillo mean volume (Bld) [Entitic vol]10.1 fLNormal9.5-13.5The [facility] on above:Performed By: #### BMP #### [facility] [address] [address] [address] Kelly MukherjeePLT63 103/ulCritically abf588-610Isz [facility] HospitalComkalamazoo psychiatric hospital on above:Performed By: #### BMP #### [facility] [address] [place] [address] Dr. Kelly MukherjeeRBC3.02 106/ulCritically low4.70-6.10The [facility] on above:Performed By: #### BMP #### [facility] [address] [place] [address] Dr. Kelly MukherjeeWBC3.1 103/ulCritically low4.0-11.0The [facility] HospitalComkalamazoo psychiatric hospital on above:Performed By: #### BMP #### [facility] [address] [place] [address] Dr. Kelly Betancourt URINE PROFILEon 95-84-7866Dxyiancdh Ql (U)NegativeNormal NEGATIVELicking Memorial HospitalComkalamazoo psychiatric hospital on above:Performed By: #### BMP #### [facility] [address] [place] [address] Dr. Kelly Blakely (U)CLEARNormalCLEARThe [facility] HospitalComkalamazoo psychiatric hospital on above: Performed By: #### BMP #### [facility] [address] [place] [address] Dr. Kelly Steward (U)LT. YELLOWNormalYELLOWLicking Memorial HospitalComkalamazoo psychiatric hospital on above:Performed By: #### BMP #### [facility] [address] [place] [address] Dr. Kelly Jett micrscopic examination will be performed if indicated. NormalThe [facility] HospitalComkalamazoo psychiatric hospital on above:Performed By: #### BMP #### [facility] [address] [address] [address] Kelly MukherjeeGlucose Ql (U)250 mg/dlAbnormalNEGATIVELicking Memorial Hospital Comment on above:Performed By: #### BMP #### [facility] [address] [address] [address] Kelly MukherjeeHemoglobin Ql (U)NegativeNormalNEGSt. Vincent Hospital Comment on above:Performed By: #### BMP #### [facility] [address] [address] [address] Kelly MukherjeeKetones Ql (U)NegativeNormalNEGATIVELicking Memorial HospitalComment on above:Performed By: #### BMP #### [facility] [address] [place] [address] Dr. Kelly MukherjeeLEUKOCYTESNegativeNormalNEGATIVELicking Memorial HospitalComment on above:Performed By: #### BMP #### [facility] [address] [place] [address] Dr. Kelly MukherjeeNitrite Ql (U)NegativeNormalNEGATIVELicking Memorial HospitalComment on above:Performed By: #### BMP #### [facility] [address] [place] [address] Dr. Kelly MukherjeepH (U)7.0 [pH]Normal5-9[facility] HospitalComment on above: Performed By: #### BMP #### [facility] [address] [place] [address] Dr. Kelly MukherjeeProtein (U) [Mass/Vol]100 mg/dLAbnormalNEGATIVE/ TRACEThe [facility]odelia HospitalComment on above:Performed By: #### BMP #### [facility] [address] [place] [address] Dr. Kelly MukherjeeSPEC GRAVITY1.538Bpjzum5.005-<=1.025The [facility] HospitalComment on above:Performed By: #### BMP #### [facility] [address] [address] [address] Kelly Covarrubias MICRO INDNOT INDICATEDNoSouthview Medical CenterComment on above:Performed By: #### BMP #### [facility] [address] [address] [address] Kelly Changbilinogen Qn (U)0.2 {Jun'U}/dLNormal0.2 - 1.0The [facility] HospitalComment on above:Performed By: #### BMP #### [facility] [address] [address] [address] Kelly MukherjeePOINT OF CARE GLUCOSEon 16-17-8379Nmitreg [Mass/Vol]253 mg/dL Critically bxhc60-029Zqp [facility] HospitalComment on above:Performed By: #### POCGLUC #### [facility] [address] [address] [address] Kelly MukherjeePROF CHEM 8 (BAS METB)on 13-51-1704Yeqhp gap [Moles/Vol]8.5 mmol/LNormalThe [facility] HospitalComment on above:Performed By: #### BMP #### [facility] [address] [address] [address] Kelly MukherjeeCalcium [Mass/Vol]8.7 mg/dLNormal8.5-10.1The [facility] Comment on above:Performed By: #### BMP #### [facility] [address] [place] [address] Dr. Kelly MukherjeeChloride [Moles/Vol]106 mmol/MLxloju98-012Ijz [facility] Comment on above:Performed By: #### BMP #### [facility] [address] [address] [address] Kelly MukherjeeCO2 [Moles/Vol]29.0 mmol/MEdipht71.0-32.0The [facility] Comment on above:Performed By: #### BMP #### [facility] [address] [address] [address] Kelly MukherjeeCreatinine [Mass/Vol]0.84 mg/dLNormal0.70-1.30The [facility] HospitalComment on above:Performed By: #### BMP #### [facility] [address] [place] [address] Dr. Mendoza ChangEGFR-AF LIBYAN>60Normal>=60The [facility] HospitalComment on above:Performed By: #### BMP #### [facility] [address] [address] [address] Kelly LiangGFR-NON AF LIBYAN>60Normal>=60The [facility] HospitalComment on above:Performed By: #### BMP #### [facility] [address] [address] [address] Kelly MukherjeeGlucose [Mass/Vol]119 mg/dLCritically sirs41-577Xjk [facility] HospitalComment on above:Performed By: #### BMP #### [facility] [address] [address] [address] Kelly MukherjeePotassium [Moles/Vol]3.5 mmol/LNormal3.5-5.1The [facility] Comment on above:Performed By: #### BMP #### [facility] [address] [address] [address] Kelly MukherjeeSodium [Moles/Vol]140 mmol/LFjkgeg541-210Itq [facility] Comment on above:Performed By: #### BMP #### [facility] [address] [address] [address] Kelly MukherjeeUrea nitrogen [Mass/Vol]21.0 mg/dLCritically high7.0-18.0The [facility] HospitalComkalamazoo psychiatric hospital on above:Performed By: #### BMP #### [facility] [address] [address] [address] Kelly MukherjeeUrea nitrogen/Creatinine [Mass ratio]25.0 mg/mgNormalThe [facility] HospitalComment on above:Performed By: #### BMP #### [facility] [address] [address] [address] Kelly Marquez AUTO DIFFon 05-50-4580RAXI #0.0 103/ulNormal0.0-0.1The [facility] HospitalComment on above:Performed By: #### POCGLUC #### [facility] [address] [address] [address] Kelly MukherjeeBasophils/100 WBC (Bld)0.2 %Normal0.2-2.0The [facility] Comment on above:Performed By: #### POCGLUC #### [facility] [address] [place] [address] Dr. Kelly Bernard #0.0 103/ulNormal0.0-0.7The [facility] HospitalComment on above: Performed By: #### POCGLUC #### [facility] [address] [place] [address] Dr. Kelly Liangosinophils/100 WBC (Bld)1.0 %Normal0.9-7.0The [facility] Comment on above:Performed By: #### POCGLUC #### [facility] [address] [place] [address] Dr. Kelly Liangrythrocyte distribution width (RBC) [Ratio]15.1 %Critically high 11.0-15.0The [facility] HospitalComment on above:Performed By: #### POCGLUC #### [facility] [address] [place] [address] Dr. Kelly MukherjeeHematocrit (Bld) [Volume fraction]30.3 %Critically low42.0-54.0 The [facility] HospitalComment on above:Performed By: #### POCGLUC #### [facility] [address] [place] [address] Dr. Kelly MukherjeeHemoglobin (Bld) [Mass/Vol]10.7 g/dLCritically low14.0-18.0The [facility] HospitalComment on above:Performed By: #### POCGLUC #### [facility] [address] [place] [address] Dr. Kelly Craig #0.01 10e3/ulNormal0.00-0.03The [facility] HospitalComment on above:Performed By: #### POCGLUC #### [facility] [address] [place] [address] Dr. Kelly Craig %0.2 %Normal0.0-0.5The [facility] HospitalComment on above: Performed By: #### POCGLUC #### [facility] [address] [place] [address] Dr. Kelly Hay #0.4 103/ulCritically low1.2-3.8The [facility] Comment on above:Performed By: #### POCGLUC #### [facility] [address] [place] [address] Dr. Kelly Cheneymphocytes/100 WBC (Bld)8.9 %Critically low20.5-60.0The [facility] HospitalComment on above:Performed By: #### POCGLUC #### [facility] [address] [place] [address] Dr. Kelly Dumas DIFF REQNONormalThe [facility] HospitalComment on above: Performed By: #### POCGLUC #### [facility] [address] [place] [address] Dr. Kelly Rahman (RBC) [Entitic mass]34.1 pgCritically high25.9-34.0The [facility] HospitalComment on above:Performed By: #### POCGLUC #### [facility] [address] [place] [address] Dr. Kelly Rahman (RBC) [Mass/Vol]35.3 g/dLCritically high29.9-35.2The [facility] HospitalComment on above:Performed By: #### POCGLUC #### [facility] [address] [place] [address] Dr. Kelly Rahman (RBC) [Entitic vol]96.5 fLCritically high80.0-94.0The [facility] HospitalComment on above:Performed By: #### POCGLUC #### [facility] [address] [place] [address] Dr. Kelly Rodriguez #0.2 103/ulCritically low0.3-0.8ThOur Lady of Mercy HospitalComment on above:Performed By: #### POCGLUC #### [facility] [address] [place] [address] Dr. Kelly Spiveyocytes/100 WBC (Bld)6.0 %Normal1.7-12.0[facility] Comment on above:Performed By: #### POCGLUC #### [facility] [address] [place] [address] Dr. Kelly MoralesUT #3.4 103/ulNormal1.4-6.5The [facility] HospitalComment on above:Performed By: #### POCGLUC #### [facility] [address] [place] [address] Dr. Kelly Moralesutrophils/100 WBC (Bld)83.7 %Critically high43.0-75.0The [facility] HospitalComment on above:Performed By: #### POCGLUC #### [facility] [address] [place] [address] Dr. Kelly MukherjeePlatelet mean volume (Bld) [Entitic vol]10.2 fLNormal9.5-13.5The [facility] HospitalComment on above:Performed By: #### POCGLUC #### [facility] [address] [place] [address] Dr. Kelly MukherjeePLT76 103/ulCritically zit359-231Axd [facility] HospitalComment on above:Performed By: #### POCGLUC #### [facility] [address] [place] [address] Dr. Kelly MukherjeeRBC3.14 106/ulCritically low4.70-6.10The [facility] HospitalComment on above:Performed By: #### POCGLUC #### [facility] [address] [place] [address] Dr. Kelly MukherjeeWBC4.0 103/ulNormal4.0-11.0The [facility] HospitalComment on above: Performed By: #### POCGLUC #### [facility] [address] [place] [address] Dr. Kelly MukherjeeCT HEAD WO CONon 20-44-5488KC HEAD WO CONEXAMINATION: CT HEAD WO CON [...] Electronically authenticated by: SYLVESTER BARBOUR Date: 2022-10-04 15:34NoSouthview Medical CenterCovid-19 PCR (CVDTBH)on 64-77-2078FVQT-CoV-2 (COVID-19) RNA ABIMBOLA+probe Ql (Unsp spec)Not detectedNormalNOT DETECTEDThe [facility] Comment on above:Result Comment: When diagnostic [...] for this test is supported by the [employer] Health and Human Service's declaration that [...] longer be used).Performed By: #### CVDTBH #### [facility] [address] [address] [address] Kelly MukherjeeADVENTHEALTH REDMOND GLUCOSEon 22-86-8194Ulqsuks [Mass/Vol]134 mg/dL Critically wgzy18-446Gbv [facility] HospitalComment on above:Performed By: #### POCGLUC #### [facility] [address] [place] [address] Dr. Kelly MukherjeePROF CHEM 8 (BAS METB)on 51-68-5489Dmegw gap [Moles/Vol]12.9 mmol/LNormalThe [facility] HospitalComment on above:Performed By: #### BMP #### [facility] [address] [address] [address] Kelly MukherjeeCalcium [Mass/Vol]9.0 mg/dLNormal8.5-10.1The [facility] Comment on above:Performed By: #### BMP #### [facility] [address] [place] [address] Dr. Kelly MukherjeeChloride [Moles/Vol]106 mmol/ZCsjvlb87-474Yss [facility] Comment on above:Performed By: #### BMP #### [facility] [address] [place] [address] Dr. Kelly MukherjeeCO2 [Moles/Vol]27.2 mmol/PAdwcsj34.0-32.0The [facility] Comment on above:Performed By: #### BMP #### [facility] [address] [place] [address] Dr. Kelly MukherjeeCreatinine [Mass/Vol]0.98 mg/dLNormal0.70-1.30The [facility] HospitalComment on above:Performed By: #### BMP #### [facility] [address] [place] [address] Dr. Kelly LiangGFR-AF LIBYAN>60Normal>=60The [facility] HospitalComment on above:Performed By: #### BMP #### [facility] [address] [place] [address] Dr. Kelly LiangGFR-NON AF LIBYAN>60Normal>=60The [facility] HospitalComment on above:Performed By: #### BMP #### [facility] [address] [place] [address] Dr. Kelly MukherjeeGlucose [Mass/Vol]146 mg/dLCritically wvgd20-742PinLicking Memorial HospitalComment on above:Performed By: #### BMP #### [facility] [address] [place] [address] Dr. Kelly MukherjeePotassium [Moles/Vol]4.1 mmol/LNormal3.5-5.1[facility] Comment on above:Performed By: #### BMP #### [facility] [address] [place] [address] Dr. Kelly MukherjeeSodium [Moles/Vol]142 mmol/VQzipcz011-495JciLicking Memorial Hospital Comment on above:Performed By: #### BMP #### [facility] [address] [place] [address] Dr. Kelly Bain nitrogen [Mass/Vol]24.0 mg/dLCritically high7.0-18.0Licking Memorial HospitalComment on above:Performed By: #### BMP #### [facility] [address] [place] [address] Dr. Kelly Bain nitrogen/Creatinine [Mass ratio]24.5 mg/mgNoSouthview Medical CenterComment on above:Performed By: #### BMP #### [facility] [address] [place] [address] Dr. Kelly Gallagher [id number] Coag (PPP) [Relative time]1.06 {INR} NormalLicking Memorial HospitalComment on above:Performed By: #### CVDTBH #### [facility] [address] [place] [address] Dr. Kelly Godoy GUIDELINESSEE BELOWChildren's Hospital for RehabilitationComment on above:Result Comment: DESIRED INR: 2.0 - 3.0 CONDITIONS NOT LISTED BELOW 2.5 - 3.5 FOR PROSTHETIC HEART VALVE REPLACEMENT 2.5 - 3.5 RECURRENT THROMBOSIS Performed By: #### CVDTBH #### [facility] [address] [place] [address] Dr. Kelly Lui Coag (PPP) [Time]11.4 sNormal9.0-11.6ThOur Lady of Mercy Hospital Comment on above:Performed By: #### CVDTBH #### [facility] [address] [place] [address] Dr. Kelly Mayer [id number] Coag (Bld) [Time]24.5 gTqlcxf69.3-36.2The [facility] HospitalComment on above:Performed By: #### CVDTBH #### [facility] [address] [place] [address] Dr. Kelly Rajput, HIGH SENSITIVITYon 95-85-9736ATCQRI3.1 pg/mLNormal 4.0-76.1The [facility] HospitalComment on above:Result Comment: CUT-OFF POINTS HAVE BEEN ESTABLISHED BASED ON THE FOURTH UNIVERSAL DEFINITIONS OF MYOCARDIAL INFARCTION. THE UPPER REFERENCE LIMIT (URL) OF TROPONIN, DEFINED THE 99TH PERCENTILE OF cTnI DISTRIBUTION IN A REFERENCE POPULATION, HAS BEEN CONFIRMED THE DECISION THRESHOLD FOR [place] DIAGNOSIS.Performed By: #### CVDTBH #### [facility] [address] [place] [address] Dr. Kelly MukherjeeXR CHEST 1 Von 81-22-2995WU CHEST 1 VEXAM: XR CHEST 1 V [...] Electronically authenticated by: SYLVESTER BARBOUR Date: 2022-10-04 15:31[facility] for RehabilitationCNPNon [id number] (HEMASA) BRIAN MEEHAN ([id number]) 1945 M Date Time Provider Department 09/01/22 [...] 05/21/2014 Encounter Status:Closed by ROLANDO KAY on 09/01/22NormalCAultman Orrville [facility] W Auto Differential panel (Bld)on 32-03-9165Ciixhqkbf (Bld) [#/Vol] 10*3/uLNormal<0.11COhioHealth O'Bleness HospitalComkalamazoo psychiatric hospital on above:Order Comment: Specimen Type: BLOOD SPECIMEN Ordering Facility: [facility] Address: [address] [address]Performed By: #### 83720-8 #### [facility] CLIA [id number] [address] [place] [address] 90107Ivzajmlwb/100 WBC (Bld)0.5 %NormalSub[facility] Comment on above:Order Comment: Specimen Type: BLOOD SPECIMEN Ordering Facility: [facility] Address: [address] [place], [place] [address]Performed By: #### 48946-5 #### [facility] CLIA [id number] [address] [place] [address] 82670Ymbetbdcwdwu cell count method Nom (Bld)AutoNormalCACMC Healthcare System on above:Order Comment: Specimen Type: BLOOD SPECIMEN Ordering Facility: [facility] Address: [address] [address]Performed By: #### 68891-0 #### [facility] CLIA [id number] [address] [place] [address] [place] [address]Xakpnefvvew (Bld) [#/Vol]0.08 10*3/uLNormal<0.46[facility] on above:Order Comment: Specimen Type: BLOOD SPECIMEN Ordering Facility: [facility] Address: [address] [place], [place] [address]Performed By: #### 83699-9 #### [facility] CLIA [id number] [address] [place], [place] [address]Vojwcozcslg/100 WBC (Bld)2.1 %NormalSuburban Community Hospital & [facility] Comment on above:Order Comment: Specimen Type: BLOOD SPECIMEN Ordering Facility: [facility] Address: [address] [place], [place] [address]Performed By: #### 59193-6 #### [facility] CLIA [id number] [address] [place], [place] [address]Xmmorqtloeh distribution width (RBC) [Ratio]15.9 %High 11.5-15.0[facility] on above:Order Comment: Specimen Type: BLOOD SPECIMEN Ordering Facility: [facility] Address: [address] [place], [place] [address]Performed By: #### 94367-0 #### [facility] CLIA [id number] [address] [place], [place] [address]Iadojnmztv (Bld) [Volume fraction]33.5 %Low39.0-51.0[facility] on above:Order Comment: Specimen Type: BLOOD SPECIMEN Ordering Facility: [facility] Address: [address] [place], [place] [address]Performed By: #### 17181-5 #### [facility] CLIA [id number] [address] [place] [address] 95[address]Ilyuyhmrsr (Bld) [Mass/Vol]11.4 g/dLLow13.0-17.0[facility] on above:Order Comment: Specimen Type: BLOOD SPECIMEN Ordering Facility: [facility] Address: [address] [place], [place] [id number] By: #### 46739-3 #### [facility] CLIA [id number] [address] [place] [address] 55317Tcbasmaq granulocytes (Bld) [#/Vol]10*3/uLNormal<0.10[facility] on above:Order Comment: Specimen Type: BLOOD SPECIMEN Ordering Facility: [facility] Address: [address] [address]Performed By: #### 31356-0 #### [facility] CLIA [id number] [address] [place] [address] 96319Uajdfqpo granulocytes/100 WBC (Bld)0.3 %NormalWestern Reserve Hospital on above:Order Comment: Specimen Type: BLOOD SPECIMEN Ordering Facility: [facility] Address: [address] [address]Performed By: #### 11423-9 #### [facility] CLIA [id number] [address] [place] [address] 28987Tnonptppprv (Bld) [#/Vol]0.60 10*3/uLLow1.00-4.00[facility] on above:Order Comment: Specimen Type: BLOOD SPECIMEN Ordering Facility: [facility] Address: [address] [place], [place] [address]Performed By: #### 51476-9 #### [facility] CLIA [id number] [address] [place] [address] 64273Yoaldckcbjo/100 WBC (Bld)16.1 %NormalWestern Reserve Hospital on above:Order Comment: Specimen Type: BLOOD SPECIMEN Ordering Facility: [facility] Address: [address] [place], [place] [address]Performed By: #### 98849-3 #### [facility] CLIA [id number] [address] [place] [address] 35666NTH (RBC) [Entitic mass]33.3 cqXaovbu96.0-34.0[facility] on above:Order Comment: Specimen Type: BLOOD SPECIMEN Ordering Facility: [facility] Address: [address] [place], [place] [address]Performed By: #### 42931-0 #### [facility] CLIA [id number] [address] [place] [address] 32481AQSS (RBC) [Mass/Vol]34.0 g/qXIudgdc85.5-36.0[facility] on above:Order Comment: Specimen Type: BLOOD SPECIMEN Ordering Facility: [facility] Address: [address] [place], [place] [address]Performed By: #### 37757-9 #### [facility] CLIA [id number] [address] [place] [address] 15355KSI (RBC) [Entitic vol]98.0 oITmpibk27.0-100.0[facility] on above:Order Comment: Specimen Type: BLOOD SPECIMEN Ordering Facility: [facility] Address: [address] [place], [place] [address]Performed By: #### 76606-7 #### [facility] CLIA [id number] [address] [place] [address] 82249Odybfflqj (Bld) [#/Vol]0.26 10*3/uLNormal<0.87[facility] on above:Order Comment: Specimen Type: BLOOD SPECIMEN Ordering Facility: [facility] Address: [address] [place], [place] [address]Performed By: #### 34705-8 #### [facility] CLIA [id number] [address] [place] [address] 57659Xtnpiftlk/100 WBC (Bld)7.0 %NormalCleHarrison Community Hospital Comment on above:Order Comment: Specimen Type: BLOOD SPECIMEN Ordering Facility: [facility] Address: [address] [place], [place] [address]Performed By: #### 39509-9 #### [facility] CLIA [id number] [address] [place], [place] [address]Wlsssoejiup (Bld) [#/Vol]2.76 10*3/uLNormal1.45-7.50[facility] on above:Order Comment: Specimen Type: BLOOD SPECIMEN Ordering Facility: [facility] Address: [address] [place], [place] [address]Performed By: #### 06776-6 #### [facility] CLIA [id number] [address] [place], [place] [address]Scjdrtwvltl/100 WBC (Bld)74.0 %NormalWestern Reserve Hospital on above:Order Comment: Specimen Type: BLOOD SPECIMEN Ordering Facility: [facility] Address: [address] [place], [place] [address]Performed By: #### 76733-5 #### [facility] CLIA [id number] [address] [place] [address] 18906Qmnmqmfnk RBC (Bld) [#/Vol]10*3/uLNormal<0.01[facility] on above:Order Comment: Specimen Type: BLOOD SPECIMEN Ordering Facility: [facility] Address: [address] [place], [place] [address]Performed By: #### 85815-5 #### [facility] CLIA [id number] [address] [place] [address] 08646Jdotswktw RBC/100 WBC (Bld) [Ratio]0.0 /100 WBCNormalCACMC Healthcare System on above:Order Comment: Specimen Type: BLOOD SPECIMEN Ordering Facility: [facility] Address: [address] [place], [place] [address]Performed By: #### 84322-1 #### [facility] CLIA [id number] [address] [place], [place] [address]Gaaihmpx mean volume (Bld) [Entitic vol]9.7 fLNormal9.0-12.7 [facility] ClevelandComment on above:Order Comment: Specimen Type: BLOOD SPECIMEN Ordering Facility: [facility] Address: [address] [place], [place] [address]Performed By: #### 65853-9 #### [facility] CLIA [id number] [address] [place] [address] 77192Kkjbnanyp (Bld) [#/Vol]81 10*3/eDMgh373-024XcodtbbibWestern Reserve Hospital on above:Order Comment: Specimen Type: BLOOD SPECIMEN Ordering Facility: [facility] Address: [address] [place], [place] [address]Result Comment: Sample checked for clotPerformed By: #### 72023-6 #### [facility] CLIA [id number] [address] [place] [address] 41730AWN (Bld) [#/Vol]3.42 10*6/uLLow4.20-6.00[facility] on above:Order Comment: Specimen Type: BLOOD SPECIMEN Ordering Facility: [facility] Address: [address] [place], [place] [address]Performed By: #### 94768-7 #### [facility] CLIA [id number] [address] [place] [address] 14119VJZ (Bld) [#/Vol]3.73 10*3/uLNormal3.70-11.00[facility] on above:Order Comment: Specimen Type: BLOOD SPECIMEN Ordering Facility: [facility] Address: [address] [place], [place] [address]Performed By: #### 86873-3 #### [facility] CLIA [id number] [address] [place] [address] 75944Sfnltaeyk (Bld) [#/Vol]<0.11 k/uLRiverview Health InstituteBasophils/100 WBC (Bld)0.5 %[facility] InstituteDifferential cell count method Nom (Bld)Auto [facility] InstituteEosinophils (Bld) [#/Vol]0.08 10*3/uL<0.46 k/uLRiverview Health Institute Eosinophils/100 WBC (Bld)2.1 %[facility] Health InstituteErythrocyte distribution width (RBC) [Ratio]15.9 %High11.5 - 15.0 %[facility] InstituteHematocrit (Bld) [Volume fraction]33.5 %Low39.0 - 51.0 %[facility] InstituteHemoglobin (Bld) [Mass/Vol]11.4 g/dLLow13.0 - 17.0 g/dLRiverview Health InstituteImmature granulocytes (Bld) [#/Vol]<0.10 k/uLRiverview Health InstituteImmature granulocytes/100 WBC (Bld)0.3 %[facility] Lymphocytes (Bld) [#/Vol]0.60 10*3/uLLow1.00 - 4.00 k/uLRiverview Health Institute Lymphocytes/100 WBC (Bld)16.1 %City HospitalH (RBC) [Entitic mass]33.3 pg 26.0 - 34.0 pgClevelGrand Itasca Clinic and HospitalHC (RBC) [Mass/Vol]34.0 g/dL30.5 - 36.0 g/dL City HospitalV (RBC) [Entitic vol]98.0 fL80.0 - 100.0 fLClevelCommunity Regional Medical Center Monocytes (Bld) [#/Vol]0.26 10*3/uL<0.87 k/uLRiverview Health InstituteMonocytes/100 WBC (Bld)7.0 %[facility] Health InstituteNeutrophils (Bld) [#/Vol]2.76 10*3/uL1.45 - 7.50 k/uL [facility] InstituteNeutrophils/100 WBC (Bld)74.0 %[facility] InstituteNucleated RBC (Bld) [#/Vol]<0.01 k/uLRiverview Health InstituteNucleated RBC/100 WBC (Bld) [Ratio]0.0 /100 WBCRiverview Health InstitutePlatelet mean volume (Bld) [Entitic vol]9.7 fL9.0 - 12.7 fLClevelatrium health wake forest baptist ClinicPlatelets (Bld) [#/Vol]81 10*3/fIHsd497 - 400 k/uLRiverview Health InstituteRBC (Bld) [#/Vol]3.42 10*6/uLLow4.20 - 6.00 m/uLRiverview Health InstituteWBC (Bld) [#/Vol]3.73 10*3/uL3.70 - 11.00 /[facility] Medical CenterCNOVSPon 64-41-1145TYEGNO Visit (SP) Office (HEMASA) ZORANBRIAN ([id number]) 1945 M Date Time Provider Department 08/30/22 3:00 PM TRICIA CRESPO During your visit today, we recorded the following information about you: Temperature Pulse Respiration Blood pressure 97.7 degrees 59/minute 18/minute 158/59 Weight Height 73.6 kg 1.703 m Tricia Crespo MD 08/30/2022 3:09 PM Signed Patient: Brian Kilgorez Location: Pending sale to [facility] : 1945 Attending Physician: Dr. Vazquez [...] no distress, pl (more content not included)... NormalSuburban Community Hospital & Brentwood HospitalComprehensive metabolic 2000 panelon 08-30-2022 Albumin [Mass/Vol]4.5 g/dLNormal3.9-4.9[facility] on above:Order Comment: Specimen Type: BLOOD SPECIMEN Ordering Facility: [facility] Address: [address] [place], [place] [address]Performed By: #### 2532-0, 66971-6 #### [facility] CLIA [id number] [address] [place] [address] 90706KBI [Catalytic activity/Vol]86 U/DEuxbqy05-715HcdadjkkmWestern Reserve Hospital on above:Order Comment: Specimen Type: BLOOD SPECIMEN Ordering Facility: [facility] Address: [address] [place], [place] [address]Performed By: #### 2532-0, 72814-7 #### [facility] CLIA [id number] [address] [place] [address] 32961APX [Catalytic activity/Vol]15 U/MPiqsgq30-92SsyuqwotyWestern Reserve Hospital on above:Order Comment: Specimen Type: BLOOD SPECIMEN Ordering Facility: [facility] Address: [address] [place], [place] [address]Performed By: #### 2532-0, 60294-7 #### [facility] CLIA [id number] [address] [place] [address] 09139Ypqor gap [Moles/Vol]8 mmol/LLow9-18[facility] Comment on above:Order Comment: Specimen Type: BLOOD SPECIMEN Ordering Facility: [facility] Address: [address] [place], [place] [address]Performed By: #### 2532-0, #### [facility] CLIA [id number] [address] [place] [address] 26698QYE [Catalytic activity/Vol]16 U/JRkfybc43-42ZlrllfrjgSuburban Community Hospital & Brentwood HospitalComment on above:Order Comment: Specimen Type: BLOOD SPECIMEN Ordering Facility: [facility] Address: [address] [place], [place] [address]Performed By: #### 2532-0, #### [facility] CLIA [id number] [address] [place] [address] 77543Gecdvzebl [Mass/Vol]0.5 mg/dLNormal0.2-1.3COhioHealth O'Bleness HospitalComment on above:Order Comment: Specimen Type: BLOOD SPECIMEN Ordering Facility: [facility] Address: [address] [place], [place] [address]Performed By: #### 2532-0, #### [facility] CLIA [id number] [address] [place] [address] 37293Lkmojws [Mass/Vol]9.5 mg/dLNormal8.5-10.2COhioHealth O'Bleness HospitalComkalamazoo psychiatric hospital on above:Order Comment: Specimen Type: BLOOD SPECIMEN Ordering Facility: [facility] Address: [address] [place], [place] [address]Performed By: #### 2532-0, 83231-2 #### [facility] CLIA [id number] [address] [place] [address] 40455Lokxoghy [Moles/Vol]110 mmol/KWiht01-529JdrgsrdmrWestern Reserve Hospital on above:Order Comment: Specimen Type: BLOOD SPECIMEN Ordering Facility: [facility] Address: [address] [place], [place] [id number] By: #### 2532-0, #### [facility] CLIA [id number] [address] [place] [address] 08547ID5 [Moles/Vol]30 mmol/RInxxle51-35XsngyaksiSuburban Community Hospital & [facility] Comment on above:Order Comment: Specimen Type: BLOOD SPECIMEN Ordering Facility: [facility] Address: [address] [place], [place] [address]Performed By: #### 2532-0, #### [facility] CLIA [id number] [address] [place] [address] 32950Jwndveanyq [Mass/Vol]0.93 mg/dLNormal0.73-1.22[facility] on above:Order Comment: Specimen Type: BLOOD SPECIMEN Ordering Facility: [facility] Address: [address] [place], [place] [address]Performed By: #### 2532-0, #### [facility] CLIA [id number] [address] [place] [address] 89516UQUDBTSUT GLOMERULAR FILTRATION RATE85 mL/min/1.73m???Normal >=60[facility] on above:Order Comment: Specimen Type: BLOOD SPECIMEN Ordering Facility: [facility] Address: [address] [place], [place] [id number] Comment: Estimated Glomerular Filtration Rate (eGFR) is [...] reflect actual GFR.Performed By: #### 2532-0, #### [facility] CLIA [id number] [address], [place] [address]Lylnvfp [Mass/Vol]86 mg/wYNktndq77-47EezdulavoWestern Reserve Hospital on above:Order Comment: Specimen Type: BLOOD SPECIMEN Ordering Facility: [facility] Address: [address] [place], [place] [address]Result Comment: The [place] [employer] (ADA) provides guidance for cutoff [...] Standards of Medical Care in Diabetes 2016, [place] [employer]. Diabetes Care. 2016.39(Suppl 1).Performed By: #### 2532-0, 90634-1 #### [facility] CLIA [id number] [address], [place] [address]Dickkjwfo [Moles/Vol]4.3 mmol/LNormal3.7-5.1CAC[facility] on above:Order Comment: Specimen Type: BLOOD SPECIMEN Ordering Facility: [facility] Address: [address] [place], [place] [address]Performed By: #### 2532-0, #### [facility] CLIA [id number] [address] [place], [place] [address]Zgknigk [Mass/Vol]6.4 g/dLNormal6.3-8.0[facility] on above:Order Comment: Specimen Type: BLOOD SPECIMEN Ordering Facility: [facility] Address: [address] [place], [place] [address]Performed By: #### 2532-0, 45307-7 #### [facility] CLIA [id number] [address] [place], [place] [address]Onmfzn [Moles/Vol]148 mmol/CVsge939-561AdwktixbsWestern Reserve Hospital on above:Order Comment: Specimen Type: BLOOD SPECIMEN Ordering Facility: [facility] Address: [address] [place], [place] [address]Performed By: #### 2532-0, 94554-8 #### [facility] CLIA [id number] [address] [place] [address] 37707Lowk nitrogen [Mass/Vol]24 mg/dLNormal9-24[facility] on above:Order Comment: Specimen Type: BLOOD SPECIMEN Ordering Facility: [facility] Address: [address] [place], [place] [address]Performed By: #### 2532-0, 56803-5 #### [facility] CLIA [id number] [address] [place] [address] 20468Slpjjxa [Mass/Vol]4.5 g/dL3.9 - 4.9 g/dLOakland ClinicALP [Catalytic activity/Vol]86 U/L38 - 113 U/LCleveland ClinicALT [Catalytic activity/Vol]15 U/L10 - 54 U/LCleveland ClinicAnion gap [Moles/Vol]8 mmol/LLow9 - 18 mmol/LCleveland ClinicAST [Catalytic activity/Vol]16 U/L14 - 40 U/L [facility] InstituteBilirubin [Mass/Vol]0.5 mg/dL0.2 - 1.3 mg/dLRiverview Health Institute Calcium [Mass/Vol]9.5 mg/dL8.5 - 10.2 mg/dLOakland ClinicChloride [Moles/Vol] 110 mmol/LHigh97 - 105 mmol/LCleveland ClinicCO2 [Moles/Vol]30 mmol/L22 - 30 mmol/LCleveland ClinicCreatinine [Mass/Vol]0.93 mg/dL0.73 - 1.22 mg/dLRiverview Health InstituteEstimated Glomerular Filtration Rate85 mL/min/1.73m>=60 mL/min/1.73m [facility] InstituteGlucose [Mass/Vol]86 mg/dL74 - 99 mg/dLCleveland ClinicPotassium [Moles/Vol]4.3 mmol/L3.7 - 5.1 mmol/LCTriHealth McCullough-Hyde Memorial HospitalProtein [Mass/Vol]6.4 g/dL 6.3 - 8.0 g/dLMadison Healthodium [Moles/Vol]148 mmol/YMcre770 - 144 mmol/L [facility] Health InstituteUrea nitrogen [Mass/Vol]24 mg/dL9 - 24 mg/dLRiverview Health Institute Ferritin SerPl-mCncon 84-80-7068Amrhadwy [Mass/Vol]121.0 ng/iCRfhubc97.3-565.7 [facility] on above:Order Comment: Specimen Type: BLOOD SPECIMEN Ordering Facility: [facility] Address: [address] [place], [place] [address]Performed By: #### 37108-3, 2132-06, 2276-01 #### [facility] CLIA [id number] [address] [place] [address] [place] AMERICAIron and Iron binding capacity panelon [id number] [Mass/Vol]100 ug/wXQkkjry33-683PaybdmeaeWestern Reserve Hospital on above:Order Comment: Specimen Type: BLOOD SPECIMEN Ordering Facility: [facility] Address: [address] [place], [place] [address]Performed By: #### 04224-3, 2132-06, 2276-01 #### [facility] CLIA [id number] [address] [place] [address] [place]AIron binding capacity [Mass/Vol]287 ug/xJFyusdj996-373MhefysvfnWestern Reserve Hospital on above:Order Comment: Specimen Type: BLOOD SPECIMEN Ordering Facility: [facility] Address: [address] [place], [place] [address]Performed By: #### 35308-6, 2132-06, 2276-01 #### [facility] [facility] CLIA [id number] [address] [place] [address] [place] OF AMERICAIron/TIBC [Molar ratio]34.8 %Wgcemm36.0-57.0[facility] on above:Order Comment: Specimen Type: BLOOD SPECIMEN Ordering Facility: [facility] Address: [address] [place], [place] [address]Performed By: #### 15234-9, 2132-06, 2276-01 #### [facility] CLIA [id number] [address] [place] [address] [place] AMERICALD LACTATE DEHYDROon [id number] [Catalytic activity/Vol]180 U/L135 - 225 U/LCleveland Riverview Health ClinicLDH SerPl-cCncon [id number] [Catalytic activity/Vol]180 U/JDlutsz688-377QmwkuiniuWestern Reserve Hospital on above:Order Comment: Specimen Type: BLOOD SPECIMEN Ordering Facility: [facility] Address: [address] [place], [place] [address]Performed By: #### 2532-0, 00493-4 #### [facility] CLIA [id number] [address] [place] [address] [id number] B12 SerPl-mCncon 10-85-4476Oeqsmgjin (Vitamin B12) [Mass/Vol]468 pg/nIWadubt521-2759KleokipmbACMC Healthcare System on above: Order Comment: Specimen Type: BLOOD SPECIMEN Ordering Facility: [facility] Address: [address] [place], [place] [address]Performed By: #### 74752-0, 2132-06, 2276-01 #### [facility] CLIA [id number] [address] [place], [place] [id number] [place] OF AMERICACULTURE BLOODon 05-08-2022 Microscopic [...] <=10 S F Oxacillin <=0.25 S FNormalThe [facility] HospitalComment on above:Performed By: #### POCGLUC #### [facility] [address] [place] [address] Dr. Kelly Gale CULTURE ID PANELon 05-03-2022. baumanniiNot detectedNormal NOT DETECTEDThe [facility] HospitalComment on above:Performed By: #### BCID2 #### [facility] [address] [place] [address] Dr. Kelly Christine fragilisNot detectedNormalNOT DETECTEDLicking Memorial HospitalComkalamazoo psychiatric hospital on above:Performed By: #### BCID2 #### [facility] [address] [place] [address] Dr. Kelly Ornelas CONTROLSPASSOhio State Harding HospitalComkalamazoo psychiatric hospital on above: Performed By: #### BCID2 #### [facility] [address] [place] [address] Dr. Kelly OrnelasBTHDJAD CULTURE BOTTLE INFORMATIONNoSouthview Medical CenterComment on above:Performed By: #### BCID2 #### [facility] [address] [place] [address] Dr. Kelly OrnelasHwyglBIHWDO7LSTPIJPRXBNZN RESISTANCE GENESChildren's Hospital for Rehabilitation Comment on above:Performed By: #### BCID2 #### [facility] [address] [place] [address] Dr. Kelly OrnelasHD2SEE Mercy Health Lorain HospitalComment on above: Result Comment: Note: Antimicrobial resitance can occur via multiple mechanisms. A Not Detected result for the FilmArray antomicrobial resistance gene assays does not indicate antimicrobial susceptibility. Subculturing is required for species identification and susceptibility testing of isolates.Performed By: #### BCID2 #### [facility] [address] [place] [address] Dr. Kelly OrnelasPawymLZVAKF3VzpqygyjWzhrsaQir Bellevue HospitalComment on above: Performed By: #### BCID2 #### [facility] [address] [place] [address] Dr. Kelly OrnelasGnnpqTIFDUS7OvpfhgayXwyymvIyd Bellevue HospitalComment on above: Performed By: #### BCID2 #### [facility] [address] [place] [address] Dr. Kelly OrnelasPdzhnKCZIJA1HNARUSpogtxTpjChildren's Hospital for RehabilitationComment on above:Performed By: #### BCID2 #### [facility] [address] [place] [address] Dr. Kelly Arzola Set:Set 2NormalThe [facility] HospitalComment on above: Performed By: #### BCID2 #### [facility] [address] [place] [address] Dr. Kelly Arzola:AerobicSelect Medical Cleveland Clinic Rehabilitation Hospital, Beachwoodment on above: Performed By: #### BCID2 #### [facility] [address] [place] [address] Dr. Kelly Churchill. neoformans/gattiiNot detectedNormalNOT DETECTEDThe [facility] on above:Performed By: #### BCID2 #### [facility] [address] [place] [address] Dr. Kelly Li albicansNot detectedNormalNOT DETECTEDThe [facility] HospitalComment on above:Performed By: #### BCID2 #### [facility] [address] [place] [address] Dr. Kelly Li aurisNot detectedNormalNOT DETECTEDThe [facility] on above:Performed By: #### BCID2 #### [facility] [address] [place] [address] Dr. Kelly Li glabrataNot detectedNormalNOT DETECTEDThe [facility] HospitalComment on above:Performed By: #### BCID2 #### [facility] [address] [address] [address] Kelly MoralesuseiNot detectedNormalNOT DETECTEDThe [facility] Comment on above:Performed By: #### BCID2 #### [facility] [address] [address] [address] Kelly Li ParapsilosisNot detectedNormalNOT DETECTEDThe [facility] HospitalComment on above:Performed By: #### BCID2 #### [facility] [address] [address] [address] Kelly Li TropicalisNot detectedNormalNOT DETECTEDThe [facility] HospitalComkalamazoo psychiatric hospital on above:Performed By: #### BCID2 #### [facility] [address] [address] [address] Kelly MukherjeeCTX-M Resistant GeneNot ApplicableNormalNOT DETECTEDThe [facility] HospitalComment on above:Performed By: #### BCID2 #### [facility] [address] [address] [address] Kelly Liang. Cloacae complexNot detectedNormalNOT DETECTEDThe [facility] HospitalComkalamazoo psychiatric hospital on above:Performed By: #### BCID2 #### [facility] [address] [address] [address] Kelly Liang. faecalisNot detectedNormalNOT DETECTEDThe [facility] Comment on above:Performed By: #### BCID2 #### [facility] [address] [address] [address] Kelly Christie faeciumNot detectedNormalNOT DETECTEDThe [facility] Comment on above:Performed By: #### BCID2 #### [facility] [address] [address] [address] Kelly LiangnterobacteriaceaeNot detectedNormalNOT DETECTEDThe [facility] HospitalComkalamazoo psychiatric hospital on above:Performed By: #### BCID2 #### [facility] [address] [address] [address] Kelly Leonecherichia coliNot detectedNormalNOT DETECTEDThe [facility] HospitalComment on above:Performed By: #### BCID2 #### [facility] [address] [address] [address] Kelly Song. influenzaeNot detectedNormalNOT DETECTEDThe [facility] Comment on above:Performed By: #### BCID2 #### [facility] [address] [address] [address] Kelly Maurice Resistant GeneNot ApplicableNormalNOT DETECTEDThe [facility] HospitalComment on above:Performed By: #### BCID2 #### [facility] [address] [address] [address] Kelly Blanc. oxytocaNot detectedNormalNOT DETECTEDThe [facility] Comment on above:Performed By: #### BCID2 #### [facility] [address] [address] [address] Kelly Blanc. pneumoniaeNot detectedNormalNOT DETECTEDThe [facility] Comment on above:Performed By: #### BCID2 #### [facility] [address] [address] [address] Kelly Membrenoella aerogenesNot detectedNormalNOT DETECTEDThe [facility] HospitalComment on above:Performed By: #### BCID2 #### [facility] [address] [address] [address] Kelly ArrietaC Resistant GeneNot ApplicableNormalNOT DETECTEDThe [facility] HospitalComkalamazoo psychiatric hospital on above:Performed By: #### BCID2 #### [facility] [address] [address] [address] Kelly Quinteros. monocytogenesNot detectedNormalNOT DETECTEDThe [facility] HospitalComment on above:Performed By: #### BCID2 #### [facility] [address] [address] [address] Kelly MukherjeeMcr-1 Resistant GeneNot ApplicableNormalNOT DETECTEDThe [facility] HospitalComkalamazoo psychiatric hospital on above:Performed By: #### BCID2 #### [facility] [address] [place] [address] Dr. Kelly GaonaA/CNot ApplicableNormalNOT DETECTEDThe [facility] Comment on above:Performed By: #### BCID2 #### [facility] [address] [address] [address] Kelly King/Rene MREJNot ApplicableNormalNOT DETECTEDThe [facility] Comment on above:Performed By: #### BCID2 #### [facility] [address] [address] [address] Kelly Ronquillo. meningitidisNot detectedNormalNOT DETECTEDThe [facility] HospitalComment on above:Performed By: #### BCID2 #### [facility] [address] [address] [address] Kelly Yu Resistant GeneNot ApplicableNormalNOT DETECTEDThe [facility] HospitalComment on above:Performed By: #### BCID2 #### [facility] [address] [place] [address] Dr. Kelly MukherjeeCqordQfu-05-pwppUhd ApplicableNormalNOT DETECTEDLicking Memorial Hospital Comment on above:Performed By: #### BCID2 #### [facility] [address] [place] [address] Dr. Kelly MukherjeeProteusNot detectedNormalNOT DETECTEDThe [facility] HospitalComment on above:Performed By: #### BCID2 #### [facility] [address] [place] [address] Dr. Kelly Downs. aeruginosaNot detectedNormalNOT DETECTEDThe [facility] HospitalComment on above:Performed By: #### BCID2 #### [facility] [address] [place] [address] Dr. Kelly Perkins. maltophiliaNot detectedNormalNOT DETECTEDLicking Memorial Hospital Comment on above:Performed By: #### BCID2 #### [facility] [address] [place] [address] Dr. Kelly MukherjeeSalmonellaNot detectedNormalNOT DETECTEDLicking Memorial Hospital Comment on above:Performed By: #### BCID2 #### [facility] [address] [place] [address] Dr. Kelly Winnatia marcescensNot detectedNormalNOT DETECTEDThe [facility] HospitalComment on above:Performed By: #### BCID2 #### [facility] [address] [address] [address] Kelly Hauser:Lt HandNormalThe [facility] HospitalComment on above:Performed By: #### BCID2 #### [facility] [address] [address] [address] Kelly Flynn. aureusNot detectedNormalNOT DETECTEDThe [facility] Comment on above:Performed By: #### BCID2 #### [facility] [address] [address] [address] Kelly Flynn. epidermidisNot detectedNormalNOT DETECTEDThe [facility] HospitalComment on above:Performed By: #### BCID2 #### [facility] [address] [address] [address] Kelly Flynn. lugdunensisNot detectedNormalNOT DETECTEDThe [facility] HospitalComment on above:Performed By: #### BCID2 #### [facility] [address] [address] [address] Kelly BynumococcusDetectedAbnormalNOT DETECTEDThe [facility] Comment on above:Performed By: #### BCID2 #### [facility] [address] [address] [address] Kelly Gonzales agalactiaeNot detectedNormalNOT DETECTEDThe [facility] HospitalComkalamazoo psychiatric hospital on above:Performed By: #### BCID2 #### [facility] [address] [address] [address] Kelly Gonzales pneumoniaeNot detectedNormalNOT DETECTEDThe [facility] HospitalComkalamazoo psychiatric hospital on above:Performed By: #### BCID2 #### [facility] [address] [address] [address] Kelly Gonzales pyogenesNot detectedNormalNOT DETECTEDThe [facility] HospitalComkalamazoo psychiatric hospital on above:Performed By: #### BCID2 #### [facility] [address] [address] [address] Kelly ColliertococcusNot detectedNormalNOT DETECTEDThe [facility] Comment on above:Performed By: #### BCID2 #### [facility] [address] [place] [address] Dr. Kelly Bedolla/Suraj Resist. GeneNot ApplicableNormalNOT DETECTEDThe [facility] on above:Performed By: #### BCID2 #### [facility] [address] [place] [address] Dr. Kelly Paez Resistant GeneNot ApplicableNormalNOT DETECTEDThe [facility] HospitalComment on above:Performed By: #### BCID2 #### [facility] [address] [place] [address] Dr. Kelly Marquez AUTO DIFFon [id number] #0.0 103/ulNormal0.0-0.1The [facility] on above:Performed By: #### CBC #### [facility] [address] [place] [address] Dr. Kelly MukherjeeBasophils/100 WBC (Bld)0.0 %Critically low0.2-2.0The [facility] on above:Performed By: #### CBC #### [facility] [address] [place] [address] Dr. Kelly Bernard #0.0 103/ulNormal0.0-0.7The [facility] on above: Performed By: #### CBC #### [facility] [address] [place] [address] Dr. Kelly Liangosinophils/100 WBC (Bld)0.0 %Critically low0.9-7.0The [facility] Hospitalment on above:Performed By: #### CBC #### [facility] [address] [place] [address] Dr. Kelly Liangrythrocyte distribution width (RBC) [Ratio]15.5 %Critically high 11.0-15.0The [facility] on above:Performed By: #### CBC #### [facility] [address] [place] [address] Dr. Kelly MukherjeeHematocrit (Bld) [Volume fraction]25.3 %Critically low42.0-54.0 The [facility] HospitalComment on above:Performed By: #### CBC #### [facility] [address] [address] [address] Kelly MukherjeeHemoglobin (Bld) [Mass/Vol]8.8 g/dLCritically low14.0-18.0The [facility] HospitalComment on above:Performed By: #### CBC #### [facility] [address] [address] [address] Kelly Craig #0.00 10e3/ulNormal0.00-0.03The [facility] HospitalComment on above:Performed By: #### CBC #### [facility] [address] [place] [address] Dr. Kelly Craig %0.0 %Normal0.0-0.5The [facility] HospitalComment on above: Performed By: #### CBC #### [facility] [address] [place] [address] Dr. Kelly Hay #0.2 103/ulCritically low1.2-3.8The [facility] Comment on above:Performed By: #### CBC #### [facility] [address] [address] [address] Kelly Vegahocytes/100 WBC (Bld)11.5 %Critically low20.5-60.0The [facility] HospitalComment on above:Performed By: #### CBC #### [facility] [address] [address] [address] Kelly GarciaUAL DIFF REQNONormalThe [facility] HospitalComment on above: Performed By: #### CBC #### [facility] [address] [address] [address] Kelly Gregg (RBC) [Entitic mass]34.1 pgCritically high25.9-34.0The [facility] HospitalComment on above:Performed By: #### CBC #### [facility] [address] [place] [address] Dr. Kelly Rahman (RBC) [Mass/Vol]34.8 g/wLUsxumd84.9-35.2The [facility] HospitalComment on above:Performed By: #### CBC #### [facility] [address] [address] [address] Kelly Ruiz (RBC) [Entitic vol]98.1 fLCritically high80.0-94.0The [facility] HospitalComment on above:Performed By: #### CBC #### [facility] [address] [place] [address] Dr. Kelly Rodriguez #0.2 103/ulCritically low0.3-0.8The [facility] HospitalComment on above:Performed By: #### CBC #### [facility] [address] [place] [address] Dr. Kelly Spiveyocytes/100 WBC (Bld)14.5 %Critically high1.7-12.0The [facility] HospitalComment on above:Performed By: #### CBC #### [facility] [address] [place] [address] Dr. Kelly Alexis #1.2 103/ulCritically low1.4-6.5The [facility] HospitalComment on above:Performed By: #### CBC #### [facility] [address] [place] [address] Dr. Kelly Moralesutrophils/100 WBC (Bld)74.0 %Zdhepx61.0-75.0The [facility] HospitalComment on above:Performed By: #### CBC #### [facility] [address] [place] [address] Dr. Kelly Stinsonlet mean volume (Bld) [Entitic vol]10.3 fLNormal9.5-13.5The [facility] HospitalComment on above:Performed By: #### CBC #### [facility] [address] [place] [address] Dr. Kelly LawrenceT59 103/ulCritically xpl284-172Vex [facility] HospitalComment on above:Performed By: #### CBC #### [facility] [address] [place] [address] Dr. Kelly HernandezC2.58 106/ulCritically low4.70-6.10The [facility] HospitalComment on above:Performed By: #### CBC #### [facility] [address] [place] [address] Dr. Kelly ReisBC1.7 103/ulCritically low4.0-11.0The [facility] HospitalComment on above:Performed By: #### CBC #### [facility] [address] [place] [address] Dr. Kelly Marquez W MANUAL DIFFon [id number] LYMPH #NormalTwin City Hospital HospitalComment on above:Performed By: #### CVDTBH #### [facility] [address] [place] [address] Dr. Kelly SegundoYPICAL LYMPH %NormalTwin City Hospital HospitalComment on above: Performed By: #### CVDTBH #### [facility] [address] [place] [address] Dr. Kelly Packer #0.0 103/ulNormal0.0-0.3The [facility] HospitalComment on above:Performed By: #### CVDTBH #### [facility] [address] [place] [address] Dr. Kelly Packer %1 %Normal0-5The [facility] HospitalComment on above:Performed By: #### CVDTBH #### [facility] [address] [place] [address] Dr. Kelly Anthony #0.00 103/ulNormal0.00-0.10The [facility] HospitalComment on above:Performed By: #### CVDTBH #### [facility] [address] [place] [address] Dr. Kelly Anthony %0.0 %Critically low0.2-2.0The [facility] HospitalComment on above:Performed By: #### CVDTBH #### [facility] [address] [place] [address] Dr. Kelly Robertson #NormalThe [facility] HospitalComment on above:Performed By: #### CVDTBH #### [facility] [address] [place] [address] Dr. Kelly MukherjeeBLAST %NormalThe [facility] HospitalComment on above:Performed By: #### CVDTBH #### [facility] [address] [place] [address] Dr. Kelly MukherjeeCORRECTED WBCNormal4.0-11.0The [facility] HospitalComment on above: Performed By: #### CVDTBH #### [facility] [address] [place] [address] Dr. Kelly Barrientos #0.00 103/ulNormal0.00-0.70The [facility] HospitalComment on above:Performed By: #### CVDTBH #### [facility] [address] [place] [address] Dr. Kelly Barrientos%0.0 %Critically low0.9-7.0The [facility] HospitalComment on above:Performed By: #### CVDTBH #### [facility] [address] [place] [address] Dr. Kelly MukherjeeHCT26.7 %Critically low42.0-54.0The [facility] HospitalComment on above:Performed By: #### CVDTBH #### [facility] [address] [place] [address] Dr. Kelly TejedaB9.3 g/dlCritically low14.0-18.0The [facility] HospitalComment on above:Performed By: #### CVDTBH #### [facility] [address] [place] [address] Dr. Kelly Tejada #0.21 103/ulCritically low1.20-3.80The [facility] Comment on above:Performed By: #### CVDTBH #### [facility] [address] [place] [address] Dr. Kelly Tejada%13.0 %Critically low20.5-60.0The [facility] HospitalComment on above:Performed By: #### CVDTBH #### [facility] [address] [place] [address] Dr. Kelly RahmanH33.9 rbIkeibk16.9-34.0The [facility] HospitalComment on above: Performed By: #### CVDTBH #### [facility] [address] [address] [address] Kelly RahmanHC34.8 g/tjTwhjgg43.9-35.2The [facility] HospitalComment on above:Performed By: #### CVDTBH #### [facility] [address] [address] [address] Kelly RahmanV97.4 fLCritically high80.0-94.0The [facility] HospitalComment on above:Performed By: #### CVDTBH #### [facility] [address] [place] [address] Dr. Kelly Gtz #NormalThe [facility] HospitalComment on above: Performed By: #### CVDTBH #### [facility] [address] [place] [address] Dr. Kelly MontielOCYTE %NormalThe [facility] HospitalComment on above: Performed By: #### CVDTBH #### [facility] [address] [place] [address] Dr. Kelly Courtney#0.16 103/ulCritically low0.30-0.80The [facility] on above:Performed By: #### CVDTBH #### [facility] [address] [place] [address] Dr. Kelly Courtney%10.0 %Normal1.7-12.0The [facility] HospitalComment on above: Performed By: #### CVDTBH #### [facility] [address] [place] [address] Dr. Kelly Coelho9.9 fLNormal9.5-13.5The [facility] HospitalComment on above: Performed By: #### CVDTBH #### [facility] [address] [place] [address] Dr. Kelly Jerome #NormalThe [facility] HospitalComment on above:Performed By: #### CVDTBH #### [facility] [address] [place] [address] Dr. Kelly KitchenOCYTE %NormalLicking Memorial HospitalComment on above:Performed By: #### CVDTBH #### [facility] [address] [place] [address] Dr. Kelly ArmendarizBCNormalThOur Lady of Mercy HospitalComment on above:Performed By: #### CVDTBH #### [facility] [address] [place] [address] Dr. Kelly LawrenceT61 103/ulCritically ako391-103Usi [facility] HospitalComment on above:Performed By: #### CVDTBH #### [facility] [address] [place] [address] Dr. Kelly HernandezC2.74 106/ulCritically low4.70-6.10The [facility] HospitalComment on above:Performed By: #### CVDTBH #### [facility] [address] [place] [address] Dr. Kelly BlankenshipW15.6 %Critically high11.0-15.0The [facility] HospitalComment on above:Performed By: #### CVDTBH #### [facility] [address] [place] [address] Dr. Kelly Olguin #1.22 103/ulCritically low1.40-6.50The [facility] on above:Performed By: #### CVDTBH #### [facility] [address] [place] [address] Dr. Kelly Olguin %76.0 %Critically high43.0-75.0[facility] HospitalComment on above:Performed By: #### CVDTBH #### [facility] [address] [place] [address] Dr. Kelly ReisBC1.6 103/ulCritically low4.0-11.0The [facility] HospitalComment on above:Performed By: #### CVDTBH #### [facility] [address] [place] [address] Dr. Kelly MukherjeeCT HEAD WO CONon [id number] HEAD WO CONEXAMINATION: CT HEAD WO CON [...] Electronically authenticated by: KIA JENNINGS Date: 2022-05-03 00:00NormSouthern [facility] Medical CenterCULTURE BLOODon [id number] examination of blood, cultureCulture Observations: NO GROWTH AT 5 DAYS.NormalThe [facility] HospitalComment on above:Performed By: #### POCGLUC #### [facility] Laboratory [address] [place] [address] Dr. Kelly MukherjeeSAMARITAN [facility] URINEon [id number] URINECulture Observations: HEAVY GROWTH OF MIXED SKIN TERE. NO POTENTIAL PATHOGENS SEEN.NormalThe [facility] HospitalComment on above:Performed By: #### POCGLUC #### [facility] [address] [place] [address] Dr. Kelly MukherjeeCovid-19 PCR ([facility])on [id number]-CoV-2 (COVID-19) RNA ABIMBOLA+probe Ql (Unsp spec)DetectedCritically abnormalNOT DETECTEDThe [facility] HospitalComment on above:Result Comment: This test is not yet approved or cleared by the [place] FDA. When there are no FDA-approved or cleared tests available, and other criteria are met, FDA can make tests available under an emergency access mechanism called an Emergency Use Authorization (EUA). The EUA for this test is supported by the [employer] of Health and Human Service's declaration that [...] longer be used).Performed By: #### CVDTBH #### [facility] [address] [address] [address] Kelly Betancourt URINE PROFILEon 11-86-3556Cjqqtpqux Ql (U)NegativeNormal NEGATIVELicking Memorial HospitalComment on above:Performed By: #### CYNTHIA UMTORIERO #### [facility] [address] [place] [address] Dr. Kelly MukherjeeClarity (U)CLEARNormalCLEARThe [facility] HospitalComment on above: Performed By: #### CYNTHIA UMTORIERO #### [facility] [address] [place] [address] Dr. Kelly MukherjeeColor (U)YELLOWNormalYELLOWLicking Memorial HospitalComment on above: Performed By: #### CAITY MARIERO #### [facility] [address] [place] [address] Dr. Kelly Jett micrscopic examination will be performed if indicated. NormalThe [facility] HospitalComment on above:Performed By: #### CAITY MARIERO #### [facility] [address] [place] [address] Dr. Kelly MukherjeeGlucose Ql (U)100 mg/dlAbnormalNEGATIVELicking Memorial Hospital Comment on above:Performed By: #### CYNTHIA UMTORIERO #### [facility] [address] [place] [address] Dr. Kelly MukherjeeHemoglobin Ql (U)TRACE-INTACTAbnormalNEGATIVELicking Memorial HospitalComment on above:Performed By: #### CYNTHIA UMICRO #### [facility] [address] [place] [address] Dr. Kelly MukherjeeKetones Ql (U)NegativeNormalNEGATIVELicking Memorial HospitalComment on above:Performed By: #### CYNTHIA UMTORIERO #### [facility] [address] [place] [address] Dr. Kelly MukherjeeLEUKOCYTESNegativeNormalNEGATIVEThe [facility] HospitalComment on above:Performed By: #### MARIKA MARIE #### [facility] [address] [place] [address] Dr. Kelly Choetrite Ql (U)PositiveAbnormalNEGATIVEThe [facility] Comment on above:Performed By: #### MARIKA MARIE #### [facility] [address] [place] [address] Dr. Kelly MukherjeepH (U)5.5 [pH]Normal5-9The [facility] HospitalComment on above: Performed By: #### MARIKA MARIE #### [facility] [address] [place] [address] Dr. Kelly MukherjeeProtein (U) [Mass/Vol]100 mg/dLAbnormalNEGATIVE/ TRACEThe [facility] HospitalComment on above:Performed By: #### MARIKA MARIE #### [facility] [address] [place] [address] Dr. Kelly MukherjeeSPEC GRAVITY1.630Yhgrdl0.005-<=1.025The [facility] HospitalComment on above:Performed By: #### MARIKA MARIE #### [facility] [address] [place] [address] Dr. Kelly Covarrubias MICRO INDINDICATEDNormalThe [facility] HospitalComment on above: Performed By: #### MARIKA MARIE #### [facility] [address] [place] [address] Dr. Kelly Changbilinogen Qn (U)0.2 {Jun'U}/dLNormal0.2 - 1.0The [facility] HospitalComment on above:Performed By: #### MARIKA MARIE #### [facility] [address] [place] [address] Dr. Kelly MukherjeeLACTATE/LACTIC ACIDon 14-77-7764Tqmvyhn [Moles/Vol]1.0 mmol/L Normal0.4-1.9The [facility] HospitalComment on above:Performed By: #### BMP #### [facility] [address] [place] [address] Dr. Kelly Dominguez 14(COMP METB)on 42-92-8519Skjanhr [Mass/Vol]3.6 g/dLNormal 3.4-5.0The [facility] HospitalComment on above:Performed By: #### BMP #### [facility] [address] [place] [address] Dr. Kelly MukherjeeAlbumin/Globulin [Mass ratio]1.3 {ratio}NormalThe [facility] HospitalComment on above:Performed By: #### BMP #### [facility] [address] [place] [address] Dr. Kelly Spencer [Catalytic activity/Vol]95 U/JVytlwa29-440Yyi [facility] HospitalComment on above:Performed By: #### BMP #### [facility] [address] [place] [address] Dr. Kelly Colon [Catalytic activity/Vol]53 U/LLhoede12-72Lqm [facility] HospitalComment on above:Performed By: #### BMP #### [facility] [address] [place] [address] Dr. Kelly Cameron gap [Moles/Vol]8.7 mmol/LNormalThe [facility] HospitalComment on above:Performed By: #### BMP #### [facility] [address] [place] [address] Dr. Kelly MukherjeeAST [Catalytic activity/Vol]31 U/WAfqioa00-14Phm [facility] HospitalComment on above:Performed By: #### BMP #### [facility] [address] [place] [address] Dr. Kelly MukherjeeBilirubin [Mass/Vol]0.4 mg/dLNormal0.2-1.0The [facility] Comment on above:Performed By: #### BMP #### [facility] [address] [place] [address] Dr. Kelly MukherjeeCalcium [Mass/Vol]8.5 mg/dLNormal8.5-10.1The [facility] Comment on above:Performed By: #### BMP #### [facility] [address] [address] [address] Kelly MukherjeeChloride [Moles/Vol]106 mmol/QShucrv32-798Rln [facility] Comment on above:Performed By: #### BMP #### [facility] [address] [address] [address] Kelly MukherjeeCO2 [Moles/Vol]29.1 mmol/HZugsge74.0-32.0The [facility] Comment on above:Performed By: #### BMP #### [facility] [address] [address] [address] Kelly MukherjeeCreatinine [Mass/Vol]1.07 mg/dLNormal0.70-1.30The [facility] HospitalComment on above:Performed By: #### BMP #### [facility] [address] [address] [address] Mendoza ChangEGFR-AF LIBYAN>60Normal>=60The [facility] HospitalComment on above:Performed By: #### BMP #### [facility] [address] [address] [address] Kelly LiangGFR-NON AF LIBYAN>60Normal>=60The [facility] HospitalComment on above:Performed By: #### BMP #### [facility] [address] [address] [address] Kelly MukherjeeGlobulin (S) [Mass/Vol]2.8 g/dLNormalThe [facility] HospitalComment on above:Performed By: #### BMP #### [facility] [address] [address] [address] Kelly MukherjeeGlucose [Mass/Vol]208 mg/dLCritically zbwf22-240Uak [facility] HospitalComment on above:Performed By: #### BMP #### [facility] [address] [address] [address] Kelly MukherjeePotassium [Moles/Vol]3.8 mmol/LNormal3.5-5.1The [facility] Comment on above:Performed By: #### BMP #### [facility] [address] [address] [address] Kelly MukherjeeProtein [Mass/Vol]6.4 g/dLNormal6.4-8.2The [facility] Comment on above:Performed By: #### BMP #### [facility] [address] [address] [address] Kelly MukherjeeSodium [Moles/Vol]140 mmol/GFgchif941-781Oxt [facility] Comment on above:Performed By: #### BMP #### [facility] [address] [address] [address] Kelly MukherjeeUrea nitrogen [Mass/Vol]23.0 mg/dLCritically high7.0-18.0The [facility] HospitalComment on above:Performed By: #### BMP #### [facility] [address] [address] [address] Kelly Bain nitrogen/Creatinine [Mass ratio]21.5 mg/mgNormalThe [facility] HospitalComment on above:Performed By: #### BMP #### [facility] [address] [address] [address] Kelly MukherjeePROF CHEM 8 (BAS METB)on 92-94-5845Ezwpi gap [Moles/Vol]10.1 mmol/LNormalLicking Memorial HospitalComment on above:Performed By: #### BMP #### [facility] [address] [address] [address] Kelly MukherjeeCalcium [Mass/Vol]8.2 mg/dLCritically low8.5-10.1The [facility] HospitalComment on above:Performed By: #### BMP #### [facility] [address] [address] [address] Kelly MukherjeeChloride [Moles/Vol]107 mmol/VXgbrtb91-884Bpq [facility] Comment on above:Performed By: #### BMP #### [facility] [address] [address] [address] Kelly MukherjeeCO2 [Moles/Vol]27.6 mmol/IAsewbj77.0-32.0The [facility] Comment on above:Performed By: #### BMP #### [facility] [address] [address] [address] Kelly MukherjeeCreatinine [Mass/Vol]0.93 mg/dLNormal0.70-1.30The [facility] HospitalComment on above:Performed By: #### BMP #### [facility] [address] [address] [address] Mendoza ChangEGFR-AF LIBYAN>60Normal>=60The [facility] HospitalComment on above:Performed By: #### BMP #### [facility] [address] [address] [address] Kelly LiangGFR-NON AF LIBYAN>60Normal>=60The [facility] HospitalComment on above:Performed By: #### BMP #### [facility] [address] [place] [address] Dr. Kelly MukherjeeGlucose [Mass/Vol]153 mg/dLCritically ixbj87-604Vjf [facility] HospitalComment on above:Performed By: #### BMP #### [facility] [address] [address] [address] Kelly MukherjeePotassium [Moles/Vol]3.7 mmol/LNormal3.5-5.1[facility] Comment on above:Performed By: #### BMP #### [facility] [address] [place] [address] Dr. Kelly MukherjeeSodium [Moles/Vol]141 mmol/BOtoyhj873-887Keb [facility] Comment on above:Performed By: #### BMP #### [facility] [address] [place] [address] Dr. Kelly MukherjeeUrea nitrogen [Mass/Vol]17.0 mg/dLNormal7.0-18.0The [facility] HospitalComment on above:Performed By: #### BMP #### [facility] [address] [address] [address] Kelly MukherjeeUrea nitrogen/Creatinine [Mass ratio]18.3 mg/mgNormalThe [facility] HospitalComment on above:Performed By: #### BMP #### [facility] [address] [address] [address] Kelly Craig MICROSCOPIC ONLYon [id number]UHFR SEENUC Health on above:Performed By: #### CYNTHIA UMICRO #### [facility] [address] [address] [address] Kelly Pacheco identified Cx Nom (U)INDICATEDUpper [facility] on above:Performed By: #### CYNTHIA UMICRO #### [facility] [address] [address] [address] Kelly Britton SEENNormalNONE SEENUC [facility] on above:Performed By: #### CYNTHIA UMICRO #### [facility] [address] [place] [address] Dr. Kelly Esquivelystals LM Nom (Urine sed)NONE SEENNormalNONE SEENUC Health on above:Performed By: #### CYNTHIA UMICRO #### [facility] [address] [place] [address] Dr. Mendoza ChangEpithelial cells LM Ql (Urine sed)NONE SEENNormalNONE SEEN /RARE [facility] on above:Performed By: #### CYNTHIA UMICRO #### [facility] [address] [place] [address] Dr. Kelly Ellis SEENNormalNONE SEENUC [facility] on above:Performed By: #### CYNTHIA UMICRO #### [facility] [address] [address] [address] Kelly Lewis SEENAbrmal0-2[facility] on above: Performed By: #### CYNTHIA UMICRO #### [facility] [address] [place] [address] Dr. Kelly ReisBC2-5AbnormalNONE SEENUC [facility] on above: Performed By: #### CYNTHIA UMICRO #### [facility] [address] [place], [place] [address] Dr. Kelly MukherjeeXR CHEST 1 Von [id number] CHEST 1 VXR CHEST 1 V 05/02/2022 [...] Electronically authenticated by: KIA JENNINGS Date: 2022-05-03 00:05[facility] RehabilitationMRI B[facility]IN WO CONon [id number] BRAIN WO CONEXAMINATION: MRI BRAIN WO CON, [...] Electronically authenticated by: SHAKA BLANCO Date: 2022-04-19 20:11[facility] RehabilitationECHOCARDIO M/2D COMPLETEon [id number] M/2D COMPLETE Patient: BRIAN MEEHAN Exam Date: 03/27/2022 : 1945 Gender:M Ordering : DR JUAN A WELSH D.O. Admission #: [id number] Family : Order #: [id number] CLICK HERE TO VIEW EXAM ECHOCARDIOGRAM REPORT [...] Area(A4C): 20.80 cm2 Left Atrium Systolic Volume(A2C): 53410 mm3 Left Atrium Systolic Volume(A4C): 44587 mm3 Mitral Valve MV E to A Ratio: 1.30 Deceleration Gladwin: 3680 mm/s2 Mitral Valve A-Wave Peak Velocity: 65.60 cm/s Mitral Valve E-Wave Peak Velocity: 84.40 cm/s Right Ventricle RV Internal Diastolic Dimension: 3.10 cm Aorta AO Root Diam: 3.30 cm Aortic Valve AoV Area (Peak Alban): 2.40 cm2 Deceleration Gladwin: 541 mm/s2 Pressure Half-Time: 1.59 s Peak [...] by: Mt Wal[place] M.D. on 03/29/2022 at 19:07[facility] STRESS/REST MULTIon [id number] STRESS/REST MULTIPatient: BRIAN MEEHAN Exam Date: 03/09/2022 : 1945 Gender:M Ordering : DR JUAN A WELSH D.O. Admission #: [id number] Family : Order #: [id number] CLICK HERE TO VIEW EXAM RADIOLOGY REPORT [...] by: Sonam Duff M.D. on 03/10/2022 at 09:38[facility] for RehabilitationBNAspirus [facility] [id number] peptide B (Bld) [Mass/Vol]400.0 pg/mLNormal <=1,800.0The [facility] Hospitalment on above:Performed By: #### BMP #### [facility] [address] [place] [address] Dr. Kelly MART ADMITon [id number] [Catalytic activity/Vol]22 U/L Critically otq31-220Fzw [facility] HospitalComment on above:Performed By: #### BMP #### [facility] [address] [place] [address] Dr. Kelly Clarke.MB [Mass/Vol]ng/mLNormal<=3.60The [facility] on above:Performed By: #### BMP #### [facility] [address] [place] [address] Dr. Kelly LoraOP6.8 pg/mLNormal4.0-76.1The [facility] on above:Result Comment: CUT-OFF POINTS HAVE BEEN ESTABLISHED BASED ON THE FOURTH UNIVERSAL DEFINITIONS OF MYOCARDIAL INFARCTION. THE UPPER REFERENCE LIMIT (URL) OF TROPONIN, DEFINED THE 99TH PERCENTILE OF cTnI DISTRIBUTION IN A REFERENCE POPULATION, HAS BEEN CONFIRMED THE DECISION THRESHOLD FOR MN DIAGNOSIS.Performed By: #### BMP #### [facility] [address] [place] [address] Dr. Kelly MoodyO39 ng/uROwmsjj38-71Hfq [facility] HospitalComment on above: Performed By: #### BMP #### [facility] [address] [place] [address] Dr. Kelly Marquez AUTO DIFFon [id number] #0.0 103/ulNormal0.0-0.1The [facility] HospitalComment on above:Performed By: #### BMP #### [facility] [address] [place] [address] Dr. Kelly MukherjeeBasophils/100 WBC (Bld)0.3 %Normal0.2-2.0The [facility] Comment on above:Performed By: #### BMP #### [facility] [address] [place] [address] Dr. Kelly Bernard #0.1 103/ulNormal0.0-0.7The [facility] HospitalComment on above: Performed By: #### BMP #### [facility] [address] [place] [address] Dr. Kelly Liangosinophils/100 WBC (Bld)2.0 %Normal0.9-7.0The [facility] Comment on above:Performed By: #### BMP #### [facility] [address] [place] [address] Dr. Kelly Liangrythrocyte distribution width (RBC) [Ratio]15.4 %Critically high 11.0-15.0The [facility] HospitalComment on above:Performed By: #### BMP #### [facility] [address] [place] [address] Dr. Kelly MukherjeeHematocrit (Bld) [Volume fraction]31.9 %Critically low42.0-54.0 The [facility] HospitalComment on above:Performed By: #### BMP #### [facility] [address] [place] [address] Dr. Kelly MukherjeeHemoglobin (Bld) [Mass/Vol]10.7 g/dLCritically low14.0-18.0The [facility] HospitalComment on above:Performed By: #### BMP #### [facility] [address] [place] [address] Dr. Kelly Craig #0.01 10e3/ulNormal0.00-0.03The [facility] HospitalComment on above:Performed By: #### BMP #### [facility] [address] [place] [address] Dr. Kelly Craig %0.3 %Normal0.0-0.5The [facility] HospitalComment on above: Performed By: #### BMP #### [facility] [address] [place] [address] Dr. Kelly Hay #0.6 103/ulCritically low1.2-3.8The [facility] Comment on above:Performed By: #### BMP #### [facility] [address] [place] [address] Dr. Kelly Vegahocytes/100 WBC (Bld)15.9 %Critically low20.5-60.0The [facility] HospitalComment on above:Performed By: #### BMP #### [facility] [address] [place] [address] Dr. Kelly GarciaUAL DIFF REQNONormalThe [facility] HospitalComment on above: Performed By: #### BMP #### [facility] [address] [place] [address] Dr. Kelly Gregg (RBC) [Entitic mass]33.8 umLujpgs91.9-34.0The [facility] HospitalComment on above:Performed By: #### BMP #### [facility] [address] [place] [address] Dr. Kelly Rahman (RBC) [Mass/Vol]33.5 g/vWYjoqrk63.9-35.2The [facility] HospitalComment on above:Performed By: #### BMP #### [facility] [address] [place] [address] Dr. Kelly Rahman (RBC) [Entitic vol]100.6 fLCritically high80.0-94.0The [facility] HospitalComment on above:Performed By: #### BMP #### [facility] [address] [place] [address] Dr. Kelly Rodriguez #0.2 103/ulCritically low0.3-0.8The [facility] HospitalComment on above:Performed By: #### BMP #### [facility] [address] [place] [address] Dr. Kelly Spiveyocytes/100 WBC (Bld)4.9 %Normal1.7-12.0The [facility] Comment on above:Performed By: #### BMP #### [facility] [address] [place] [address] Dr. Kelly Alexis #2.7 103/ulNormal1.4-6.5The [facility] HospitalComment on above:Performed By: #### BMP #### [facility] [address] [place] [address] Dr. Kelly Moralesutrophils/100 WBC (Bld)76.6 %Critically high43.0-75.0The [facility] HospitalComment on above:Performed By: #### BMP #### [facility] [address] [place] [address] Dr. Kelly Stinsonlet mean volume (Bld) [Entitic vol]10.4 fLNormal9.5-13.5The [facility] HospitalComment on above:Performed By: #### BMP #### [facility] [address] [place] [address] Dr. Kelly LawrenceT72 103/ulCritically ogl442-313Odd [facility] HospitalComment on above:Performed By: #### BMP #### [facility] [address] [place] [address] Dr. Kelly HernandezC3.17 106/ulCritically low4.70-6.10The [facility] HospitalComment on above:Performed By: #### BMP #### [facility] [address] [place] [address] Dr. eKlly MukherjeeWBC3.5 103/ulCritically low4.0-11.0The [facility] HospitalComment on above:Performed By: #### BMP #### [facility] [address] [place] [address] Dr. Kelly MukherjeeCT HEAD WO CONon [id number] HEAD WO CONEXAMINATION: CT HEAD WO CON [...] Electronically authenticated by: CELINE COLVIN Date: 2022-02-15 15:45[facility] for RehabilitationPROF 14(COMP METB)on [id number] [Mass/Vol]3.7 g/dLNormal 3.4-5.0The [facility] HospitalComment on above:Performed By: #### BMP #### [facility] [address] [place] [address] Dr. Kelly MukherjeeAlbumin/Globulin [Mass ratio]1.3 {ratio}NormalThe [facility] Hospitalment on above:Performed By: #### BMP #### [facility] [address] [place] [address] Dr. Kelly Spencer [Catalytic activity/Vol]84 U/YEiparh59-012Fry [facility] HospitalComment on above:Performed By: #### BMP #### [facility] [address] [place] [address] Dr. Kelly Colon [Catalytic activity/Vol]29 U/WHobknf16-09Img [facility] Hospitalment on above:Performed By: #### BMP #### [facility] [address] [place] [address] Dr. Kelly Cameron gap [Moles/Vol]14.3 mmol/LNormalThe [facility] Comment on above:Performed By: #### BMP #### [facility] [address] [address] [address] Kelly MukherjeeAST [Catalytic activity/Vol]15 U/ICwhfay87-89Has [facility] HospitalComment on above:Performed By: #### BMP #### [facility] [address] [address] [address] Kelly MukherjeeBilirubin [Mass/Vol]0.5 mg/dLNormal0.2-1.0The [facility] Comment on above:Performed By: #### BMP #### [facility] [address] [address] [address] Kelly MukherjeeCalcium [Mass/Vol]9.0 mg/dLNormal8.5-10.1The [facility] Comment on above:Performed By: #### BMP #### [facility] [address] [address] [address] Kelly MukherjeeChloride [Moles/Vol]105 mmol/YIwkebm19-695Luz [facility] Comment on above:Performed By: #### BMP #### [facility] [address] [address] [address] Kelly MukherjeeCO2 [Moles/Vol]27.0 mmol/FOcrvkx88.0-32.0The [facility] Comment on above:Performed By: #### BMP #### [facility] [address] [address] [address] Kelly MukherjeeCreatinine [Mass/Vol]0.90 mg/dLNormal0.70-1.30The [facility] HospitalComment on above:Performed By: #### BMP #### [facility] [address] [address] [address] Mendoza ChangEGFR-AF LIBYAN>60Normal>=60The [facility] HospitalComment on above:Performed By: #### BMP #### [facility] [address] [address] [address] Kelly LiangGFR-NON AF LIBYAN>60Normal>=60The [facility] HospitalComment on above:Performed By: #### BMP #### [facility] [address] [address] [address] Kelly MukherjeeGlobulin (S) [Mass/Vol]2.9 g/dLNormSouthern [facility] Medical CenterComment on above:Performed By: #### BMP #### [facility] [address] [address] [address] Kelly MukherjeeGlucose [Mass/Vol]234 mg/dLCritically vxmo39-180Sgr [facility] HospitalComment on above:Performed By: #### BMP #### [facility] [address] [address] [address] Kelly MukherjeePotassium [Moles/Vol]4.3 mmol/LNormal3.5-5.1The [facility] Comment on above:Performed By: #### BMP #### [facility] [address] [place] [address] Dr. Kelly MukherjeeProtein [Mass/Vol]6.6 g/dLNormal6.4-8.2The [facility] Comment on above:Performed By: #### BMP #### [facility] [address] [place] [address] Dr. Kelly MukherjeeSodium [Moles/Vol]142 mmol/FBhgzdy050-711Mfe [facility] Comment on above:Performed By: #### BMP #### [facility] [address] [place] [address] Dr. Kelly MukherjeeUrea nitrogen [Mass/Vol]27.0 mg/dLCritically high7.0-18.0The [facility] HospitalComment on above:Performed By: #### BMP #### [facility] [address] [place] [address] Dr. Kelly Bain nitrogen/Creatinine [Mass ratio]30.0 mg/mgNoSouthview Medical CenterComment on above:Performed By: #### BMP #### [facility] [address] [address] [address] Kelly MukherjeePROTIMEon 91-17-0877BQR Coag (PPP) [Relative time]1.03 {INR} NormalThe [facility] HospitalComment on above:Performed By: #### CVDTBH #### [facility] [address] [address] [address] Kelly [facility] HospitalComment on above:Result Comment: DESIRED INR: 2.0 - 3.0 CONDITIONS NOT LISTED BELOW 2.5 - 3.5 FOR PROSTHETIC HEART VALVE REPLACEMENT 2.5 - 3.5 RECURRENT THROMBOSIS Performed By: #### CVDTBH #### [facility] [address] [address] [address] Kelly Lui Coag (PPP) [Time]11.1 sNormal9.0-11.6ThOur [facility] of [facility] Comment on above:Performed By: #### CVDTBH #### [facility] [address] [place] [address] Dr. Kelly Mayer 14-42-2273mPDQ Coag (Bld) [Time]26.9 gGorlwb62.3-36.2[facility] HospitalComment on above:Performed By: #### CVDTBH #### [facility] [address] [place] [address] Dr. Kelly MukherjeeXR CHEST 1 Von 74-81-1583DB CHEST 1 VEXAMINATION: XR CHEST 1 V [...] Electronically authenticated by: SONAM DUFF Date: 2022-02-15 15:49[facility] Vital Signs Date TimeVital SignValuePerforming NifikiyufIyacdgbv12-10-0927 11:27-0500 Diastolic blood faqtzcvp44 mm[Hg]Juan A Welsh DO Work Phone: [facility]11-06-2025 11:27-0500 Heart rate61 /minBenjastacie Welsh DO Work Phone: 1(419)483-[address] [place], [place] 7880111-06-2025 11:27-0500 Respiratory rate20 /minBenjamin Ball DO Work Phone: 1(554)[facility] [place], [place] 7880111-06-2025 11:27-0500 SaO2% (BldA) [Mass fraction]97 %Juan A Ball DO Work Phone: 1(325)[address] [place], [place] 4483911-06-2025 11:27-0500 Systolic blood mm[Hg]Juan A Ball DO Work Phone: 1(846)[address] [place], [place] 4483911-06-2025 04:36-0500 Body .3 kgBenjamin Ball DO Work Phone: 1(835)[address] [place], [place] 4483911-05-2025 20:00-0500 Body vlsnzwsuave35.8 [degF]Juan A Ball DO Work Phone: 1(931)[address] [place], [place] 4483911-04-2025 19:58-0500 Diastolic blood zmuehofv87 mm[Hg]Juan A Ball DO Work Phone: 1(293)[address] [place], [place] 4483911-04-2025 19:58-0500 Systolic blood jyzmjytk493 mm[Hg]Juan A Ball DO Work Phone: 1(606)[address] [place], [place] 4483911-04-2025 19:46-0500 Body yhxaeb545.72 cmBenjamin Ball DO Work Phone: 1(186)[address] [place], [place] 4483911-04-2025 19:46-0500 Body krghicyppvs12.3 [degF]Juan A Ball DO Work Phone: 1(665)[address] [place], [place] 4483911-04-2025 19:46-0500 Body .6 kgBenjamin Ball DO Work Phone: 1(615)[address] [place], [place] 4483911-04-2025 19:46-0500 Heart rate62 /minBenjamin Ball DO Work Phone: 1(982)[address] [place], [place] 4483911-04-2025 19:46-0500 Respiratory rate18 /minBenjamin Ball DO Work Phone: 1(135)[address] [place], [place] 4483908-18-2025 16:01-0400 Body yyuemb240.72 cmBenjamin Ball DO Work Phone: 1(485)053-59[facility]08-18-2025 16:01-0400 Body mass index (BMI) [Ratio]22.1 kg/a0Nituxhvx Ball DO Work Phone: 1(519)389-[address] [place], [place] 7880108-18-2025 16:01-0400 Body .22 kgBenjamin Ball DO Work Phone: 1(150)623-[address] [place], [place] 7880108-18-2025 16:01-0400 Diastolic blood mm[Hg]Juan A Ball DO Work Phone: 1(390)[address]08-18-2025 16:01-0400 Diastolic blood wqggtbeb48 mm[Hg]Juan A Ball DO Work Phone: 1(167)[address]08-18-2025 16:01-0400 Heart rate66 /minBenjamin Ball DO Work Phone: 1(080)164-[address] [place], [place] 7880108-18-2025 16:01-0400 Respiratory rate12 /minBenjamin Ball DO Work Phone: 1(829)[facility] [place], [place] 7880108-18-2025 16:01-0400 Systolic blood mm[Hg]Juan A Ball DO Work Phone: 1(529)424-[address] [place], [place] 7880108-18-2025 16:01-0400 Systolic blood rhhtatay415 mm[Hg]Juan A Ball DO Work Phone: 1(493)991-[address] [place], [place] 7880101-03-2025 13:37-0500 Body kaksmm865.72 cmReg[facility]01-03-2025 13:37-0500Body mass index (BMI) [Ratio]23.8 kg/t3NimrnhqzvRegency Hospital [facility]01-03-2025 13:37-0500Body .21 kgReg[facility]01-03-2025 13:37-0500Diastolic blood njbkkgic65 mm[Hg][facility] 10-10-2024 13:37-0500Heart rate67 /[facility] 10-10-2024 13:37-0500Respiratory rate12 /[facility] 10-10-2024 13:37-0500Systolic blood zbpfwgde984 mm[Hg][facility]12-04-2024 09:54-0500Body bizeyk569.72 cmReg[facility]12-04-2024 09:54-0500Body mass index (BMI) [Ratio]24 kg/g5WilqedxbaRegency Hospital [facility]12-04-2024 09:54-0500Body urbjuq00.72 kgReg[facility]12-04-2024 09:54-0500Diastolic blood yruwazfx18 mm[Hg] [facility]12-04-2024 09:54-0500Heart rate61 /[facility]12-04-2024 09:54-0500Respiratory rate12 [facility]12-04-2024 09:54-0500Systolic blood guluhrtk351 mm[Hg] [facility]10-28-2024 11:26-0400Body zgdupv118.7 cmAnancy Brink PA Work Phone: [facility] [phone] 11:26-0400Body mass index (BMI) [Ratio]23.57 kg/m2Kristen Brink PA Work Phone: [facility] [phone] 11:26-0400Body zedofn19.31 kgKristen Brink PA Work Phone: NOFulton State HospitalAyxktgbwvj63-89-9008 11:26-0400Diastolic blood mm[Hg]Kristen Brink PA Work Phone: NOFulton State HospitalBmzwayzvgg66-62-7295 11:26-0400Heart rate60 /min Kristen Brink PA Work Phone: NOFulton State HospitalInhmseojly72-78-4267 11:26-0400Respiratory rate16 /minKristen Brink PA Work Phone: NOFulton State HospitalEkfbazcclt76-36-2974 11:26-2591SfN1% (BldA) [Mass fraction]100 %Kristen Brink PA Work Phone: [facility] HospitalGxihrojear64-10-7068 11:26-0400Systolic blood mm[Hg]Kristen FLORES Work Phone: [facility] HospitalOqlvqocvak38-17-0414 11:52-0400Body mass index (BMI) [Ratio]22.87 kg/h0CvgrpkmAlexandra Schmitt FAMILY PROTECTION SPECIALIST-RANGE EXAMINER Work Phone: [facility]09-12-2024 11:52-0400Body tapisb01.22 kgAlexandra Schmitt FAMILY PROTECTION SPECIALIST-RANGE EXAMINER Work Phone: [facility]09-12-2024 11:52-0400Diastolic blood erbyrbrb48 mm[Hg]Alexandra Schmitt FAMILY PROTECTION SPECIALIST-RANGE EXAMINER Work Phone: [facility]09-12-2024 11:52-0400Heart rate 67 /minAlexandra Schmitt FAMILY PROTECTION SPECIALIST-RANGE EXAMINER Work Phone: [facility]09-12-2024 11:52-0400Systolic blood sfhfuzgt944 mm[Hg]Alexandra Schmitt FAMILY PROTECTION SPECIALIST-RANGE EXAMINER Work Phone: [facility]09-03-2024 13:45-0400Body .72 cmReg[facility]09-03-2024 13:45-0400Body mass index (BMI) [Ratio]23.1 kg/r2BclhsmpzpRegency Hospital [facility]09-03-2024 13:45-0400Body .05 kgReg[facility]09-03-2024 13:45-0400Diastolic blood ounohlyw43 mm[Hg][facility] 06-10-2024 13:45-0400Heart rate61 /[facility] 06-10-2024 13:45-0400Respiratory rate20 /[facility] 06-10-2024 13:45-0400Systolic blood xahdgjkv437 mm[Hg][facility]05-21-2024 14:23-0400Body .72 cmReg[facility]05-21-2024 14:23-0400Body mass index (BMI) [Ratio]25 kg/p3KgtaunecnRegency Hospital [facility] East05-21-2024 14:23-0400Body asroto16.84 kgReg[facility]05-21-2024 14:23-0400Diastolic blood ddutqkbx99 mm[Hg] [facility]05-21-2024 14:23-0400Heart rate67 /[facility]05-21-2024 14:23-0400Respiratory rate20 /[facility]05-21-2024 14:23-0400Systolic blood iksdthna297 mm[Hg] [facility]03-08-2024 11:18-0500Body egxlkg115.72 cm [facility]03-08-2024 11:18-0500Body mass index (BMI) [Ratio]24 kg/d4HuvlpndzxRegency Hospital [facility]03-08-2024 11:18-0500Body weight 71.89 kgRegency [facility]03-08-2024 11:18-0500Diastolic blood ewvltdyw17 mm[Hg][facility]03-08-2024 11:18-0500Heart rate65 /[facility]03-08-2024 11:18-0500Respiratory rate20 /[facility]03-08-2024 11:18-0500Systolic blood mm[Hg][facility]01-30-2024 13:30-0500Body vywrxx732.72 cmBenjastacie Ball Other [employer] Other 01-30-2024 13:30-0500Body mass index (BMI) [Ratio] 24.45 kg/v0Ycsetxiz Ball Other [employer] Other 01-30-2024 13:30-0500Body utziyg34.94 kgBenjamin Ball Other [employer] Other 01-30-2024 13:30-0500Diastolic blood njnvskur76 mm[Hg] Juan A Ball Other [employer] Other 01-30-2024 13:30-0500Respiratory rate12 /minBenjamin Ball Other [employer] Other 01-30-2024 13:30-0500Systolic blood zkrmyypd798 mm[Hg] Juan A Ball Other [employer] Other 09-28-2023 11:30-0400Body lrnujg857.72 cmBenjamin Ball Other [employer] Other 09-28-2023 11:30-0400Body mass index (BMI) [Ratio] 24.87 kg/v4Kdobibzv Ball Other [employer] Other 09-28-2023 11:30-0400Body kedjlk86.21 kgBenjamin Ball Other [employer] Other 09-28-2023 11:30-0400Diastolic blood hwefzixe54 mm[Hg] Juan A Ball Other [employer] Other 09-28-2023 11:30-0400Respiratory rate16 /minBenjamin Ball Other [employer] Other 09-28-2023 11:30-0400Systolic blood enysepin888 mm[Hg] Juan A Ball Other [employer] Other 06-28-2023 15:00-0400Body qfikjz738.72 cmBenjamin Ball Other [employer] Other 06-28-2023 15:00-0400Body mass index (BMI) [Ratio] 25.12 kg/n6Lgaxkrhq Ball Other [employer] Other 06-28-2023 15:00-0400Body firife99.93 kgBenjamin Ball Other [employer] Other 06-28-2023 15:00-0400Diastolic blood bfbnohhb73 mm[Hg] Juan A Ball Other [employer] Other 06-28-2023 15:00-0400Respiratory rate12 /minBenjamin Ball Other [employer] Other 06-28-2023 15:00-0400Systolic blood xzydxbch522 mm[Hg] Juan A Ball Other [employer] Other 03-27-2023 14:30-0400Body eebgcq693.72 cmBenjamin Ball Other [employer] Other 03-27-2023 14:30-0400Body mass index (BMI) [Ratio] 24.93 kg/k6Cnorazms Ball Other [employer] Other 03-27-2023 14:30-0400Body ghsiek19.39 kgBenjamin Ball Other [employer] Other 03-27-2023 14:30-0400Diastolic blood wfgcezfq25 mm[Hg] Juan A Ball Other [employer] Other 03-27-2023 14:30-0400Respiratory rate12 /minBenjamin Ball Other [employer] Other 03-27-2023 14:30-0400Systolic blood samkbicr301 mm[Hg] Juan A Ball Other [employer] Other 01-06-2023 16:30-0500Body jokgvu220.72 cmBenjamin Ball Other [facility] [employer] Other 01-06-2023 16:30-0500Body mass index (BMI) [Ratio] 24.63 kg/u8Zmwpsjme Ball Other [employer] Other 01-06-2023 16:30-0500Body xjlpyf92.48 kgBenjamin Ball Other [facility] [employer] Other 01-06-2023 16:30-0500Diastolic blood erusshab17 mm[Hg] Juan A Ball Other [employer] [employer] Other 01-06-2023 16:30-0500Respiratory rate12 /minBenjamin Ball Other [employer] Other 01-06-2023 16:30-0500Systolic blood zaoolyop050 mm[Hg] Juan A Ball Other [employer] [employer] Other [id number] 14:43-0500Body atllcn402.3 Rosangela Crespo MD Work Phone: [facility]11-23-2022 14:43-0500Body temperature 97.7 [degF]Tricia Crespo MD Work Phone: [facility]11-23-2022 14:43-0500Body xytfoc03.57 kgTricia Crespo MD Work Phone: [facility]11-23-2022 14:43-0500Diastolic blood raxomrhj26 mm[Hg]Tricia Crespo MD Work Phone: [facility]11-23-2022 14:43-0500Heart rate59 /min Tricia Crespo MD Work Phone: [facility]11-23-2022 14:43-0500Respiratory rate 18 /minTricia Crespo MD Work Phone: [facility]11-23-2022 14:43-6960HjF2% (BldA) [Mass fraction]96 %Tricia Crespo MD Work Phone: [facility]11-23-2022 14:43-0500Systolic blood spajelyd560 mm[Hg]Tricia Crespo MD Work Phone: [facility] Encounters Encounter DateEncounter TypeCare ProviderFacilityStart: 14-57-0201Ncq-patient / Non-visitCatherine Dell [facility] Work Phone: Start: 08-11-2025 End: 65-55-2763Xfxhobs encounter procedureBharat Mayo DO-[facility] [address] Work Phone: start: 08-11-2025 End: 36-14-7662rahkeifdphXoemicji Ball DO Work Phone: 2(001)859-4781161-9858-Holgebbvp Health RT [address]Start: 90-02-2684Gds-patient / Non-visitCatherine Gianna Patricia DO-[facility] Work Phone: Start: 08-11-2025 End: 12-26-3444Zmqrkqzvfj and management of inpatientSsebastian Oconnor DO-[facility] Work Phone: Start: 79-43-6010Djc-patient / Non-visitChristine Yariel Lara DO-[facility] Work Phone: Start: 05-25-2025 End: 21-19-9712hbemsadsouFfkrgrhm Pixspan DO Work Phone: [facility] Work Phone: Start: 05-25-2025 End: 44-72-7719Risgalf encounter procedureJuan A Blaise [facility] Work Phone: Start: 37-86-6368Rue-patient / Non-visitCatsunil [facility] Work Phone: Start: 03-08-3169Xjf-patient / Non-visitBj Ortega [place] -[facility] Work Phone: Start: 10-10-2024 End: 46-32-6482vrkqsmfxzeHivpiltqaLakeHealth [facility] Work Phone: Start: 10-10-2024 End: 36-65-3036Fxldlyj encounter procedureE[facility] Physician GroupMer[facility] Work Phone: Start: 09-10-2024 End: 48-95-8524Kjxriam encounter procedureE[facility] Physician GroupMercy 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, psychotic disturbance, mood disturbance, or anxiety, unspecified timing of dementia onset (CMS/HCC); PINA (obstructive sleep apnea)Start: 07-30-2024 End: 84-20-5547Cmjjehbyg encounterLaso Johnmarek TENORIOProMedica Physicians General SurgeryStart: 07-29-2024 End: 77-16-1332Yqsxel OnlyNot In System Ref ProvProMedica Physicians General SurgeryStart: 07-09-2024 End: 59-81-0946svwfenakfiNU Juan A Welsh Work Phone: [facility] HospitalComment on above:History of rectal cancerStart: 07-09-2024 End: 07-13-1684Epjszukj ReferredDO Juan A Welsh Work Phone: [facility] Ctr-LAB Path Spec Nima HospStart: 03-76-0462Pbu-patient / Non-visitDO Juan A Welsh Work Phone: [facility] GroupSt[facility] Work Phone: Start: 07-97-3046Cnf-patient / Non-visitDO Juan A Welsh Work Phone: [facility] GroupSt[facility] Work Phone: Start: 06-19-2024 End: 68-22-8921zarhxhbphoQWODHXFTri-[facility] Start: 06-19-2024 End: 54-20-8361Bkxayo outpatient new 30 minutesHouston [facility] FAMILY PROTECTION SPECIALIST-RANGE EXAMINER Work Phone: [facility] General SurgeryComment on above: History of rectal cancer (Primary Dx); Encounter for colonoscopy due to history of colonic polyp; Fecal urgencyStart: 06-10-2024 End: 58-80-7228wfhwzldfwlSddigopqvLima City Hospital Work Phone: Start: 06-10-2024 End: 56-93-9053Autvjmv encounter procedureE[facility] Health [facility] Physician GroupMercy Hospital Clinic Work Phone: Start: 42-31-9561Lrwiero encounter procedureThe MetroHealth Systemtart: 03-17-2024 End: 46-27-3622moevdvypjaZAZJ HILLNot AvailableStart: 02-26-2024 End: 82-89-3495akvdluaqlmXcdqsenbkLakeHealth Beachwood [facility] Work Phone: Start: 02-26-2024 End: 07-08-9193Hnjkjku encounter procedureFirlouisvilles Physician Group-[facility] Work Phone: Start: 50-60-6922Gnv-patient / Non-visitFirsouthampton memorial hospital Physician Group-[facility] Work Phone: Start: 02-89-3532Few-patient / Non-visitFirsouthampton memorial hospital Physician Group-[facility] Work Phone: Start: 99-28-7359Ozm-patient / Non-visitFirsouthampton memorial hospital Physician Group-[facility] Work Phone: Start: 02-07-2024 End: 97-42-6011otyeqrkbliCTHRQTDC Lloyd ROBERSONNot AvailableStart: 12-14-2023 End: 18-13-3235Kbotjfa encounter procedureEcu Health [facility] Physician Group-[facility] Work Phone: Start: 11-06-2023 End: 52-74-7260wdivqfokznYxipnfee Ball Other [employer] Other Start: 17-47-2225Fwnhxa outpatient visit 25 minutes Juan A Marcos [facility] ClinicStart: 07-17-2023 End: 07-34-5129cpemlavzyqUwqbffiy Ball Other [employer] Other Start: 90-41-4327Jydtuifzi encounterBenjamin SujitG [facility]ise Medical ClinicStart: 07-05-2023 End: 60-78-9184mvrqlszswiNnkhfysq Ball Other [employer] Other Start: 81-72-1030Ultrvoo encounter procedureBenjamin BlaiseFPG [facility]ise Medical ClinicStart: 04-04-2023 End: 36-89-2378qidqvkcpbhUrhldrnj Ball Other [employer] Other Start: 35-72-7602Oeozbh outpatient visit 25 minutes Juan A BallFPG [facility] Medical ClinicStart: 01-01-2023 End: 18-12-4160ddrgnjzhwaJazyqums Ball Other nort [employer] Other Start: 92-26-4190Llumvm outpatient visit 25 minutes Juan A BallFPG [facility] Medical ClinicStart: 12-14-2022 End: 25-47-2777optaxpsgqhWqrurbng Ball Other [employer] Other Start: 08-05-6091Fdvpagykp encounterBenjamin BallFPG Ball Medical ClinicStart: 12-11-2022 End: 08-69-5086dryvjvpkezLteqcp W RICEFacility:EU SanduskyStart: 12-11-2022 End: 53-27-4486Svuggjf encounter procedureRobert W RICE [facility] Indra Start: 12-08-2022 End: 65-40-2380bxxmvybytoEV DOMINIC W RICEFacility:L7Pqzzm: 11-27-2022 End: 72-73-1682kxzihftnwlKykabrru Ball Other [facility] [employer] Other Start: 77-83-6522Wdmsafayn encounterBenjamin BallFPG [facility] Medical ClinicStart: 11-07-2022 End: 22-07-7561xzwptrdkhcEPIK LACOURFacility:P3Yqwio: 10-29-2022 End: 36-17-4803gjioqwedcfBmxonrlb Ball Other noPWA [employer] Other Start: 17-29-4424Jlrumuyor encounterBenjamin BallFPG [facility] Medical ClinicStart: 10-20-2022 End: 61-28-4456glbkjhuhfaDyyjudxn Ball Other [facility] [employer] Other Start: 75-94-2457Lubfttrti encounterBekadeem Welsh Medical ClinicStart: 10-13-2022 End: 28-90-9546ljnrdbtfywKqpugirs Ball Other [facility] [employer] Other Start: 10-77-4709Sbksvz outpatient visit 25 minutes Juan A [facility] ClinicStart: 10-04-2022 End: 86-02-1423hgbxitghogKQ JUAN A BALLFacility:J3Kvabz: 40-60-5505Gsxxljytp encounterRejet Kay RN Work Phone: Hematology/OncologyComment on above:Care Coordination (Lab Results)Start: 08-30-2022 End: 49-83-2197adixfxvpmgSxqpeStormy Crespo MD Work Phone: Hematology/OncologyComment on above:Splenomegaly (Primary Dx); Abnormal finding of blood chemistry, unspecifiedStart: 08-30-2022 End: 46-44-9759Xzbxnih encounter Dottie Crespo MD Work Phone: SANDUSKYStart: 05-08-2022 End: 61-73-0927kxdjsolsvaQY JUAN A BALLFacility:I3Peopq: 05-03-2022 End: 84-30-0400nipurnfxwuVO JUAN A BALLFacility:N0Revzv: 04-19-2022 End: 35-37-6190mnwhrjwsbgLEJN LACOURFacility:F5Xqcwe: 03-27-2022 End: 37-79-3771tordbleecgVH JUAN A BALLFacility:U4Fvwzb: 03-09-2022 End: 52-52-9924vsmuygnmolBL JUAN A BALLFacility:A4Dielm: 02-15-2022 End: 56-24-1908azyobzifixRE JUAN A BALLFacility:W5Eizir: 07-17-2018 End: 06-37-9800Kbwodib encounterDEFAULT PHYSICIANFacility:UTMCStart: 09-18-2017 End: 66-34-3986Supyzsb encounterDEFAULT PHYSICIANFacility:[facility] Procedures DateProcedureProcedure DetailPerforming ClinicianStart: 71-04-2568Txozmcat screenBharat Lord - CHCComment on above:Order Comment: Transfuse now? NResult Comment: PERFORMED BY: [facility] [place] [address] PATHOLOGIST TUTORING MANAGER GALINA PINEDA M.D.Start: 98-54-5047SOZIXTL 1 HOURNot In System Ref ProvStart: 20-41-2353Nskqq i surg pathology gross examination onlyNot In System Ref Prov Start: 54-02-9696Nauhcyay identified in Urine by CultureStart: 95-46-7955KVA screeningANNE LACOURComment on above:Performed By: #### CVDTBH #### [facility] [address] [place] [address] Dr. Kelly MukherjeeStart: 98-86-4266Sscxniljnqwtip shockwave lithotripsy of calculus of kidneyRobert RICE Start: 82-39-2919IgvvaffajhnCrscdds Oskar FAMILY PROTECTION SPECIALIST-RANGE EXAMINER Work Phone: Start: 11-94-8684Kpxrqaperq, Rightt retrograde, J stent, ESWLRobert RICE Start: 42-31-7081Famxbvf of coronary artery bypass graftingS/P CABG x 4Tricia Crespo MD Work Phone: ColonoscopyRobert RICE Coronary artery bypass grafts x 4Robert RICE Extraction of cataractRobert RICE Comment on above:BilateralRepair of inguinal hernia Dominic RICE Plan of Treatment DateCare ActivityDetailAuthorStart: 03-59-1854OTBBOPWF SCREENDIABETES SCREEN [facility] Hospitaltart: 38-73-1194TzmphfttuThe MetroHealth Systemtart: 89-43-1164JsyiojepgThe MetroHealth Systemtart: 08-12-2025 End: 22-97-1387QlibbmhozThe MetroHealth Systemtart: 29-79-0035Xxhmtfcpdtn [Presence] in StoolThe MetroHealth Systemtart: 08-11-2025 End: 26-21-9134NtyoohnoqThe MetroHealth Systemtart: 96-95-2534Wfznmugn to gastroenterologistThe MetroHealth Systemtart: 26-62-8904Ktufnheo admissionThe MetroHealth Systemtart: 85-30-3073ZjbnfqpayThe MetroHealth Systemtart: 16-37-1116Glvps BMI ScreeningAdult BMI ScreeningTriHealth McCullough[facility] SystemStart: 85-41-1257Fwagqrm ScreeningTobacco ScreeningProMagruder Memorial Hospitaltart: 12-22-2024 End: 20-96-9529Ikhxklw encounter rscmsawsi15/17/2025 1:20 PM EDT Office Visit [facility] [address] [facility] [address] [place] [address] Kristen Brink PA [address] [place] [address] [facility] ROUTEStart: 08-04-2024 End: 67-05-6896Jxgjdsykcdhrm levelOxcarbazepine level Lab Routine Seizure disorder (CMS/HCC) Expected: 08/04/2024 (Approximate), Expires: 08/04/2025[facility] Work Phone: comment on above:Expected: 08/04/2024 (Approximate), Expires: 08/04/2025Start: 06-88-6067SffwnmkpdThe MetroHealth Systemtart: 45-13-7897Hkxznztob for malignant neoplasm of colonColonoscopyProMercy Health St. [facility] SystemStart: 49-11-7151GHFWO-19 Vaccine ( season)COVID-19 Vaccine ( season)[facility] SystemStart: 01-82-8087Cvvyajkuu vaccination NOM HealthcareStart: 25-21-4023UZjF,Tdap and Td Vaccines (4 - Td or Tdap) DTaP,Tdap and Td Vaccines (4 - Td or Tdap)[facility], [employer] [facility] Hospitaltart: 02-27-2023 End: 99-32-0172UGE W Auto Differential panel - BloodCBC + DIFF Lab Routine Splenomegaly Expected: 02/27/2023 (Approximate), Expires: 04/29/2023[facility] Work Phone: Comment on above:Expected: 02/27/2023 (Approximate), Expires: 04/29/2023Start: 02-27-2023 End: 93-53-7230Pvlepxmdltsdy metabolic 2000 panel - Serum or PlasmaCOMP METABOLIC PANEL Lab Routine Splenomegaly Expected: 02/27/2023 (Approximate), Expires: 04/29/2023[facility] Work Phone: Comment on above:Expected: 02/27/2023 (Approximate), Expires: 04/29/2023Start: 08-30-2022 End: 29-25-8079Wlxzjgyig (Vitamin B12) [Mass/volume] in Serum or [facility] Work Phone: Comment on above:Expected: 08/30/2022, Expires: 10/30/2022Start: 08-30-2022 End: 93-03-5876Hsqgqkga [Mass/volume] in Serum or [facility] Work Phone: Comment on above:Expected: 08/30/2022, Expires: 08/30/2023Start: 08-30-2022 End: 15-03-2666Qeot and Iron binding capacity panel - [facility] Work [facility]: Comment on above:Expected: 08/30/2022, Expires: 08/30/2023Start: 98-75-7918WZWTAVC DIRECTIVE DISCUSSIONADVANCE DIRECTIVE DISCUSSIONMadison Healthtart: 66-54-7612DBNWASQQCY ASSESSMENTDEPRESSION ASSESSMENTMadison Healthtart: 54-47-7872BUYUT-19 VACCINE (3 - Booster for Moderna series)COVID-19 VACCINE (3 - Booster for Moderna series)[facility] Start: 51-12-3712Htzwwfuzx aortic aneurysm screeningAbdominal Aortic Aneurysm (AAA) ScreenProMagruder Memorial Hospitaltart: 11-12-5108Pvch Risk ScreeningFall Risk ScreeningCarteret Health Caretart: 36-54-4344HXBYIILTJMLM: 65+ (1 - PCV) PNEUMOCOCCAL: 65+ (1 - PCV)[facility]: 67-28-8602Tmyjonqavdxump of varicella zoster vaccineZoster (Shingles) Vaccine (1 of 2)ProMCushing Memorial Hospitaltart: 01-01-6120MZXYVUCN VACCINE (1 of 2)SHINGRIX VACCINE (1 of 2) [facility]: 92-87-7879Iqhke microalbumin profileDTAP,TDAP,TD (1 - Tdap)[facility]: 54-23-5824GXFTHW PCP TEAM CHRONIC DISEASE VISIT ANNUAL PCP TEAM CHRONIC DISEASE VISITMadison Healthtart: 06-27-2927Wrzatcvbs B surface antibody levelLDL CHOLESTEROLMadison Healthtart: 1957 Depression ScreeningDepression ScreeningCarteret Health Caretart: 1945 Medicare Annual Wellness VisitMedicare Annual Wellness VisitTuscarawas HospitalAnion gap measurementRegency Hospital Cleveland EastBacteria identified in Urine by CultureRegency Hospital Cleveland EastBasophils [#/volume] in Blood by Automated countRegency Hospital Cleveland EastBasophils/100 leukocytes in Blood by Automated [facility] End: 63-73-6652LcbplqzaouaLxfknqdbspv GI Routine History of rectal cancer 1 Occurrences starting 06/19/2024 until 06/19/2025[facility] Work Phone: Comment on above:1 Occurrences starting 06/19/2024 until 06/19/2025omprehensive metabolic 2000 panel - Serum or PlasmaRegency Hospital Cleveland EastEosinophils/100 leukocytes in Blood by Automated count [facility] EastErythrocyte distribution width [Ratio] by Automated [facility] HospitalErythrocytes [#/volume] in Blood [facility] EastGlomerular filtration rate [Volume Rate/Area] in Serum, Plasma or Blood by CreatinineRegency Hospital [facility] East Hematocrit [Volume Fraction] of BloodFirelands Regional Medical CenterHemoglobin [Mass/volume] in BloodRegency Hospital Cleveland EastHepatitis B virus surface Ab [Presence] in SerumRegency Hospital Cleveland EastHewhittier hospital medical center B virus surface Ag [Presence] in Serum or Plasma by ImmunoassayRegency Hospital Cleveland EastHepatitis C virus IgG Ab [Presence] in Serum or Plasma by ImmunoassayRegency Hospital Cleveland EastLactoferrin [Presence] in Stool [facility] EastLeukocytes [#/volume] corrected for nucleated erythrocytes in Blood by Automated counRegency Hospital Cleveland East Leukocytes [#/volume] in BloodRegency Hospital Cleveland EastLymphocytes [#/volume] in Blood by Automated countRegency Hospital [facility] East Lymphocytes/100 leukocytes in Blood by Automated [facility] HospitalMCH [Entitic mass] by Automated [facility] MCHC [Mass/volume] by Automated countRegency Hospital Cleveland EastMCV [Entitic volume] by Automated [facility] HospitalMonocytes [#/volume] in Blood by Automated [facility] Monocytes/100 leukocytes in Blood by Automated [facility] HospitalNeutrophils [#/volume] in Blood by Automated [facility] HospitalNeutrophils/100 leukocytes in Blood by Automated [facility] HospitalNucleated erythrocytes [Presence] in Blood by Automated [facility] HospitalPatient EducationKnow your [facility] Work Phone: Platelet mean volume [Entitic volume] in Blood by Automated [facility] HospitalPlatelets [#/volume] in Blood [facility] Immunizations Immunization DateImmunizationNotesCare NyhntbvvFruhizie08-78-7254bjjtkwpni, high dose seasonal, preservative-freeRegency Hospital Cleveland East09-28-2023 influenza virus vaccine, unspecified formulationRegency Hospital Cleveland East09-28-2023influenza, high dose seasonal, preservative-freeBenjamin Ball Other [employer] Other [id number] (aIIV4) vaccine, age 65+ yr, quadrivalent, PF (FLUAD QUADRIVALENT)Tricia Crsepo MD Work Phone: [facility] InstituteJoxuqx30-49-7450fjnwcduea virus vaccine, split virus (incl. purified surface antigen)Juan A Welsh Other [employer] Other [id number] virus vaccine, unspecified formulationRobert Jamclouds [facility] [place] 536910-04-2022influenza, high dose seasonal, preservative-freeBenaicha Welsh Other [employer] Other 10-154924-69-3267sifwbwdnj virus vaccine, split virus (incl. purified surface antigen)Juan A Welsh Other [employer] Other 10-027564-90-8276ftvuwqqbs virus vaccine, unspecified formulationRegency Hospital Cleveland East10-01-2021influenza virus vaccine, unspecified formulationRobert Jamclouds [facility]03-02-2021COVID-19 original vaccine, full dose, monovalent (MODERNA) Tricia Crespo MD Work Phone: [facility] InstituteGszyjo01-08-2164LYUJ-CiX-6 (COVID-19) mRNA- 1273 vaccineRobert Jamclouds [facility]02-02-2021COVID-19 original vaccine, full dose, monovalent (MODERNA) Tricia Crespo MD Work Phone: [facility] Health InstituteHyvxsj43-06-8409ZMTX-MxO-9 (COVID-19) mRNA- 1273 vaccineRobert Jamclouds [facility] [place] 536911-25-2020pneumococcal conjugate vaccine, 13 Gila FLORES Work Phone: [facility] HospitalUcwohuwntn41-20-5316yslzimlbw virus vaccine, split virus (incl. purified surface antigen)Juan A Welsh Other [facility] [employer] Other 404897-81-2379nohuksqgs virus vaccine, unspecified formulationRobert RICE [facility] [place] 861800-23-2020influenza, injectable, quadrivalent, preservative Clifford Crespo MD Work Phone: [facility] InstituteYpkioc68-79-1719gdficyqmx virus vaccine, split virus (incl. purified surface antigen)Juan A Welsh Other [facility] [employer] Other [id number] virus vaccine, unspecified formulationRegency Hospital Cleveland East10-11-2018influenza virus vaccine, split virus (incl. purified surface antigen)Juan A Welsh Other [facility] [employer] Other 10049053-61-3441citwxescr virus vaccine, unspecified formulationRobert RICE [facility] [place] 861800-11-2018Seasonal trivalent influenza vaccine, adjuvanted, preservative Clifford Crespo MD Work Phone: [facility] InstituteHzbtxb49-32-6812hqtrkdwts virus vaccine, split virus (incl. purified surface antigen)Juan A Welsh Other [employer] Other 11189895-94-0114fucojidsb virus vaccine, unspecified formulationRegency Hospital [facility] East11-13-2017influenza virus vaccine, unspecified formulationRobert RICE [facility] [place] 861801-13-2017Seasonal trivalent influenza vaccine, adjuvanted, preservative Clifford Crespo MD Work Phone: [facility] InstituteUzyvnk65-52-2307dwkyvlneb virus vaccine, split virus (incl. purified surface antigen)Juan A Welsh Other [employer] Other [id number] virus vaccine, unspecified formulationRegency Hospital Cleveland East11-27-2015influenza virus vaccine, unspecified formulationRobert RICE [facility] [place] 536911-27-2015influenza, injectable, quadrivalent, preservative freeTricia Crespo MD Work Phone: [facility] InstituteMrxrxb83-66-7766wkhucgtxbqjv conjugate vaccine, 13 valentBenjamin Ball Other [facility]11-12-2014influenza virus vaccine, unspecified formulationRobert RICE [facility] [place] 536911-12-2014influenza, injectable, quadrivalent, contains preservative Tricia Crespo MD Work Phone: [facility] InstituteWzstki74-92-5864yrgqrqlax virus vaccine, unspecified formulationRobert RICE [facility] [place] 536911-13-2013influenza, seasonal, injectableTricia Crespo MD Work Phone: [facility] InstituteXkoyvp16-89-7000ahljatnxdvkp polysaccharide vaccine, 23 valentBenjamin Ball Other [facility]09-05-2013tetanus and diphtheria toxoids, adsorbed, preservative free, for adult use (5 Lf of tetanus toxoid and 2 Lf of diphtheria toxoid)Juan A Welsh Other [facility]09-12-2012tetanus and diphtheria toxoids, adsorbed, preservative free, for adult use (5 Lf of tetanus toxoid and 2 Lf of diphtheria toxoid)Juan A Blaise Other [facility]07-03-2002diphtheria, tetanus toxoids and acellular pertussis vaccine, unspecified formulation Juan A Welsh Other [facility] Payers DatePayer CategoryPayerPolicy [id number]-hib [id number] Care Other (unspecified)[facility] [id number] Health Insurance [id number] 2011Medicare [id number] [id number] 1960 [id number] 2.16840.1.867434.[id number] 2.16840.1.582388.3.57[id number] 2.16840.1.096219.3.579.[id number] 2.16840.1.497592.3.57[id number] 2.16840.1.103814.3.57[id number] 2.16840.1.795522.3.57[id number] 2.840.1.254272.3.57[id number] 2.840.1.980427.3.579.[id number] 2.840.1.711545.3.579.[id number] 2.840.1.647630.3.579.2.92847-79-8626Huhyqla6935732 2.840.1.919849.3.57[id number] 2.840.1.994822.3.57[id number] 2.840.1.528339.3.57[id number] 2.840.1.330922.3.57[id number] 2.840.1.833271.3.57[id number] 2.840.1.120950.3.[id number] 2.840.1.3[id number] 2.840.1.744468.3.579.2.531 Social History DateTypeDetailFacilityStart: 08-30-2022 End: 59-54-0358Ogqmdsg smoking status NHISEx-smokerRiverview Health InstituteHistory of tobacco useCurrent smokerRiverview Health InstituteHistory of tobacco usePassive smoker [facility]: 06-02-2019 End: 25-67-1214Rbtvcvi use and exposureSmokeless tobacco non-userMadison Healthtart: 34-15-9027Drnqtyw intakeCurrent non-drinker of alcohol (finding) [facility]: 13-92-1026Dvc Assigned At BirthNot on fileMadison Healthtart: 08-20-2022 End: 21-59-9915Ixmndbqh to SARS-CoV-2 (event)Not sureMadison Healthtart: 11-18-2020 End: 68-40-6435Qpz [facility]: 69-49-8737Ykw Assigned At [facility] CenterHistory of tobacco useCigarette SmokerCEDAR CITY HOSPITAL HealthcareStart: 03-17-2024 End: 69-62-1610Bowebqbeq beverage intakeLifetime non-drinker (finding)[facility] HealthcareStart: 11-18-2020 End: 49-13-4148Akktsjn of Social functionProBarney Children'S Medical Centerca [facility] SystemStart: 33-81-4116Fcwcdft CommentAge stop: 25NOMD HealthcareTobacco smoking status NHIS Unknown if ever smokedSouthwest General Health Center Work Phone: Start: 05-23-2019 End: 52-56-1898OirRlaj (finding)[facility] Systemtart: 89-93-5813Bpgzdgndh beverage intakeEx-drinker (finding)[facility] ChildcareUnknowCincinnati [facility] Medical Center SystemStart: 86-63-6865FAQX Follow upSDOH Follow upMercy Health – The Jewish [facility] Work Phone: NEGATED: Highlighted rowStart: NINFHistory of tobacco usePassive smokerCEDAR CITY HOSPITAL Healthcare Medical Equipment Procedure CodeEquipment CodeEquipment Original TextEquipment IdentifierDates Start: 15-23-6300Chp Needle, Diabetic (Droplet Pen Needle) 31 gauge x 5/16 needleStart: 92-79-2872Rgq Needle, Diabetic (Comfort Ez Pen [place]) 31 gauge x 5/16 needleStart: 03-03-2025 End: 30-31-0874Tey Needle, Diabetic (Droplet Pen Needle) 31 gauge x 5/16 needle Start: 73-17-2218Lag Needle, Diabetic (Comfort Ez Pen [place]) 31 gauge x 5/16 needleStart: 03-03-2025 End: 13-13-5206Vtf Needle, Diabetic (Droplet Pen Needle) 31 gauge x 5/16 needle Start: 71-66-4490Cuf Needle, Diabetic (Comfort Ez Pen [place]) 31 gauge x 5/16 needleStart: 03-03-2025 End: 03-03-2025 Goals DatePatient GoalDesired Activity/State Functional Status CebmRjzipxlszxFddubsPwdxrzpf10-03-9318Mclejsdnbn statusPatient at Baseline [facility] Work Phone: [phone]rzxwym StatusN/AExecutive [facility] of [facility] Mental Status YctvValujbxozyBbwafhOelemhla96-66-7006Txyyfccny functionCognitive Status Patient at BaselineUniversity [facility] Work Phone: Clinical Notes 08-30-2022 to 05-25-2025 Note Date & YosmKqqtYhckllgc33-89-8418 Evaluation note* Diagnosis Onset Date Resolution Status [...] 2 diabetes mellitus with hyperglycemiaacuteNovember 2024 7:11pm [facility] Work Phone: 1(624) 881-456608-18-2025 Evaluation note* Diagnosis Onset Date Resolution Status [...] 7:11pmType 2 diabetes mellitus with hyperglycemiaacuteNov2024 7:11pm [facility] Work Phone: [phone]) 939-592812-04-2024 Evaluation note* Diagnosis Onset Date Resolution Status Admit Date Contusion, chest wall acuteDecember 2023 9:48amPrimary hypertensionacuteDecember 2023 9:48am Alzheimer's dementiaacuteJanuary 2024 1:31pmASHD (arteriosclerotic heart disease)acuteJanuary 2024 1:31pmElevated cholesterolacuteJanuary 2024 1:31pmPancytopeniaacuteJanuary 2024 1:31pmPrimary hypertensionacuteJanuary 2024 1:31pmType 2 diabetes mellitus with hyperglycemiaacuteJanuary 2024 1:31pm [facility] Work Phone: [phone]) 326-864610-28-2024 History of Present illness Narrative* SANDRA Fisher [...] Review Audit Reviewed by Concha Milligan MA (It Help Desk Analyst) on 03/17/24 at 1135 Medication Order Taking? Sig Documenting Provider Last Dose Status allopurinol (Zyloprim) 300 MG tablet [id number] No Aamir Roberson, DPM Taking Active amLODIPine (Norvasc) 5 MG tablet [id number] No Aamir Roberson, DPM Taking Active citalopram (CeleXA) 20 MG tablet [id number] No Aamir Roberson, DPM Taking Active donepezil (Aricept) 10 MG tablet [id number] No TAKE 1 TABLET AT BEDTIME SANDRA Fisher Taking Active doxycycline (Vibramycin) 100 MG capsule [id number] No TAKE ONE CAPSULE BY MOUTH ONCE DAILY FOR 7 DAYSAamir Roberson, DPM Taking Active isosorbide mononitrate ER (Imdur) 30 MG 24 hr tablet [id number] No Aamir Roberson DPM Taking Active losartan (Cozaar) 50 MG tablet [id number] No Aamir Roberson, DPM Taking Active Memantine HCl ER 28 MG capsule sustained-release 24 hr [id number] No TAKE 1 CAPSULE ONE TIME DAILY SANDRA Fisher Taking Active NovoLOG MIX 70/30 FLEXPEN (70-30) 100 UNIT/ML injection [id number] No Aamir Roberson DPM Taking Active OXcarbazepine (Trileptal) 300 MG tablet [id number] No Aamir Roberson DPM Taking Active simvastatin (Zocor) 20 MG tablet [id number] No Take 20 mg by mouth at [...] triceps, wrist extensors, wrist extensors, wrist flexor, brim flexer strength 5/5. LUE Strength deltoid, biceps, triceps, wrist extensors, wrist extensors, wrist flexor, brim flexer strength 5/5. RLE Strength illopsoas, quadriceps, tibialis [...] or anxiety, unspecified timing of dementia onset ([facility]) He continues with memory troubles due to [...] contributing to his persistent fatigue. Seizure disorder ([facility]) history of seizure disorder with focal events [...] updating EEG pending course documented in this encounterBarnes-Jewish Saint Peters HospitalXtjzrojksw28-62-5982 Miscellaneous Notes* Telephone Encounter - Olivia Olivares [...] be put in chart. documented in this encounterTuscarawas Hospital10-23-2024 Telephone encounter Note* Telephone Encounter - Olivia Olivares CMA - 07/30/2024 10:44 AM EDT ----- Message from Dr. Jurgen Lozano, sent at 07/30/2024 7:35 AM EDT ----- Please let patient know that he had a tubular adenoma and I recommend repeat colonoscopy in 5 yearsif he so wishes even though he would be 84 years of age. Thanks, Dr. [facility] Badu NetworksStbsje33-07-2316 Telephone encounter Note* Telephone Encounter - Olivia Olivares CMA - 07/30/2024 10:44 AM EDT While in the process of leaving patient a voicemail, patient's spouse Iman answered the phone. Spoke with Iman regarding patient's pathology results as she is an approved contact for PHI. Iman verbally understood with no further questions. Recall to be put in chart. [facility]09-12-2024 History of Present illness Narrative* Alexandra Schmitt, FAMILY PROTECTION SPECIALIST-RANGE EXAMINER - 06/19/2024 11:30 AM EDT Images from [...] Diagnosis Date Colon cancer (CMS-HCC) Diabetes mellitus ([facility]-HCC) Kidney stone Past Surgical History: Procedure Laterality [...] patient/family/caregiver Referring and communicating with other health careers counsellor History of rectal cancer [Z85.048] DORENE SHAH [facility] General Surgery [place] This note was created with the assistance of a speech recognition program. While intending to generate a timely document that accurately reflects the content of the visit, no guarantee can be provided that every grammatical or spelling mistake has been or will be identified or corrected. Thank you for your understanding. DORENE Shah 06/19/24 1309 documented in this encounterTuscarawas Hospital09-12-2024 Miscellaneous Notes* Addendum Note - DORENE Shah - 06/19/2024 11:30 AM EDT Addended by: ALEXANDRA SCHMITT on: 06/19/2024 01:09 PM Modules accepted: Orders documented in this encounterTuscarawas Hospital09-12-2024 Note* Addendum Note - DORENE Shah - 06/19/2024 11:30 AM EDTAddended by: ALEXANDRA SCHMITT on: 06/19/2024 01:09 PM Modules accepted: Orders [facility]01-30-2024 Evaluation note* Encounter Date Diagnosis Assessment [...] (ICD-10 - N20.0)Push fluids and continue Allopurinol [facility] Other 09-28-2023 Evaluation note* Encounter Date Diagnosis [...] (prostate specific antigen) (ICD-10 - Z12.5)Yearly PSA [facility] Other 06-28-2023 Evaluation note* Encounter Date Diagnosis [...] (current) use of insulin (ICD-10 - Z79.4) [facility] Other 03-27-2023 Evaluation note* Encounter Date Diagnosis [...] colon (ICD-10 - Z85.038)UTD w/ CRC screening [facility] Other 03-06-2023 Hospital Discharge instructions Patient Education [...] include: ?Spinach. ?Rhubarb. ?Beets. ?Potato chips and kazakh fries. ?Nuts. If you regularly take a diuretic medicine, make sure to eat at least 1 2 fruits or vegetables high in potassium each day. These include: ?Avocado. ?Banana. ?Reeves, prune, carrot, or tomato juice. ?Baked potato. [...] Casseroles. Pizza. Lasagna. Frozen meals. Potato chips. Kyrgyz fries. Summary You can reduce your risk [...] 01/19/2012 Document Revised: 01/14/2020 Document Reviewed: 09/04/2017 [employer] Patient Education 2020 [place]. Follow Up Care 12/05/2021 11:51:44 With:YEFRI HUIZAR, Dominic Handley, URL Address: [address] [place] [address]- When: only if needed Comments:YAQUELIN [facility] 02-20-2023 Evaluation note* Encounter Date Diagnosis Assessment Notes Treatment Notes Treatment Clinical Notes Nov, Primary hypertension (ICD-10 - I 10) [facility] Other 01-13-2023 Evaluation note* Encounter Date Diagnosis Assessment Notes Treatment Notes Treatment Clinical Notes Oct, EKTA (generalized anxiety disorde r) (ICD-10 - F41.1) Oct,Elevated cholesterol (ICD-10 - E78.00) Oct,SHD (arteriosclerotic heart disease) (ICD-10 - I25.10) [facility] Other 01-06-2023 Evaluation note* Encounter Date Diagnosis [...] (current) use of insulin (ICD-10 - Z79.4) [facility] Other [id number] Miscellaneous Notes* Telephone Encounter - Rolando Kay [...] adequaly hydrated every day documented in this encounterRiverview Health Institute11-23-2022 NoteHNO ID: [id number] Author: Tricia Crespo MD Service: ? Author Type: Physician Type: Progress Notes Filed: 08/30/2022 3:09 PM Note Text: Patient: Brian Meehan Location: Pending sale to [facility] : 1945 Attending Physician: Dr. Vazquez [...] erythema BP 147/53[second a (more content not included)...[facility] 08-30-2022 History of Present illness Narrative* Tricia Crespo MD - 08/30/2022 2:59 PM EST Patient: Brian Meehan Location: Pending sale to [facility] : 1945 Attending Physician: Dr. Vazquez [...] units) Date Value 10/23/2013 Negative URINALYSIS Specific [place], Ur Date Value Ref Range Status 06/26/2017 [...] Juan A Welsh MD documented in this encounterOhioHealth Hardin Memorial Hospitalaluation + Plan note No data available for this section [facility] Evaluation note* Diagnosis Splenomegaly- Primary Abnormal finding of blood chemistry, unspecified documented in this encounter [facility] Hospitalalubayhealth emergency center, [place] noteNo Go Pool and SpaFreeland [employer] Other Evaluation note* Diagnosis Onset Date Resolution Status Second degree burn of back noneactiveAlzheimer's dementiaacuteASHD (arteriosclerotic heart disease)acute Elevated cholesterolacutePancytopeniaacutePrimary hypertensionacuteType 2 diabetes mellitus with hyperglycemiaacute [facility] Work Phone: Evaluation note* Diagnosis Onset Date Resolution Status Alzheimer's dementia acuteASHD (arteriosclerotic heart disease)acuteElevated cholesterolacute Encounter for subsequent annual wellness visit in Medicare patientacute PancytopeniaacutePrimary hypertensionacuteType 2 diabetes mellitus with hyperglycemiaacute [facility] Work Phone: Evaluation note* Diagnosis Seizure disorder (CMS/HCC)- Primary Unspecified epilepsy without mention of intractable epilepsy 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, psychotic disturbance, mood disturbance, or anxiety, unspecified timing of dementia onset ([facility]) PINA (obstructive sleep apnea) Obstructive sleep apnea (adult) (pediatric) documented in this encounter [facility] HealthcareEvaluation note* Diagnosis History of rectal cancer documented in this encounter [facility]Evaluation [facility]* Diagnosis History of rectal cancer- Primary Encounter for colonoscopy due to history of colonic polyp Fecal urgency documented in this encounter [facility]Evaluation [facility]* Diagnosis Onset Date Resolution Status Admit Date Alzheimer's dementia acuteAugust 2024 3:51pmASHD (arteriosclerotic heart disease)acuteAugust 2024 3:51pmElevated cholesterolacuteAugust 2024 3:51pmHx of malignant neoplasm of colonacuteAugust 2024 3:51pmPancytopeniaacuteAugust 2024 3:51pmPrimary hypertensionacuteAugust 2024 3:51pmType 2 diabetes mellitus with hyperglycemiaacuteAugust 2024 3:51pm [facility] Work Phone: History general Narrative - [...] impairmentSurgical History lithotripsy ESWL with stent insertionSurgical Xcefsotbejvpfpedcthdgy0234Uarslfyy Historycolon vqhhcuobk1674Ghmhwtef Historyhemorrhoidectomy05/2019Surgical XegjtraKJA7559Fxstnohj Historyumbilical hernia frsohu8108Hvbuvpwd Historyleft inguinal hernia jlvrxr2179 low anterior resectionSurgical Historycystoscopy, urethral dilation, right stent04/2017Surgical Historycystoscopy with right stent hfzjyhg36/2017Hospitalization Historysee surgical history [facility] Other InstructionsNot on filedocumented in this encounter [facility] SystemInstructionsNot on filedocumented in this encounter [facility] SystemInstructionsNot on filedocumented in this encounter [facility] SystemInstructionsNot on filedocumented in this encounter [facility] SystemProgress note No data available for this section [facility] Reason for referral (narrative)No reason for referral information availableSouthwest [facility] Work Phone: Summary Purpose Family History No [...] 1 :31pm ASHD (arteriosclerotic heart disease) [facility] 2024 1:31pm Elevated cholesterol October 10, 2024 [...] 3 :51pm ASHD (arteriosclerotic heart disease) [facility] 2024 3:51pm Elevated cholesterol May 25, 2025 [...] 3 :51pm ASHD (arteriosclerotic heart disease) [facility] 2024 3:51pm Elevated cholesterol May 25, 2025 [...] Diagnoses History of rectal cancer Alexandra Schmitt, FAMILY PROTECTION SPECIALIST-RANGE EXAMINER [address] [place] [address] Referral IDStatusReasonStart DateExpiration DateVisits RequestedVisits [id number] Additional Source Comments (unrecognized sect ion and content) No Status Records FoundNo Status Records FoundNo Status Records FoundNo Status Records FoundNo Status Records FoundNo Status Records FoundNo Status Records Found INFORMATION SOURCE (unrecogn ized section and content) DATE CREATED AUTHOR 08/14/2018 [facility] DATE CREATED AUTHOR AUTHOR'S ORGANIZ ATION 09/01/2022 [facility] DATE CREATED AUTHOR AUTHOR'S ORGANIZ ATION 12/12/2022 [facility] DATE CREATED AUTHOR AUTHOR'S ORGANIZ ATION 12/13/2022 [facility] DATE CREATED AUTHOR AUTHOR'S ORGANIZ ATION 06/21/2024 [facility] DATE CREATED AUTHOR AUTHOR'S ORGANIZ ATION 08/05/2024 [facility] DATE CREATED AUTHOR AUTHOR'S ORGANIZ ATION 08/21/2025 [facility] Source Comments (unrecognize d section and content) In the event this informatio n is protected by the Federal Confidentiality of Alcohol and Drug Abuse Patient Records regulations: The Federal rules restrict any use of the information to criminally investigate or prosecute any alcohol or drug abuse patient.[facility] Institute[facility] the event this information is protected by the Federal Confidentiality of Alcohol and Drug Abuse Patient Records regulations: The Federal rules restrict any use of the information to criminally investigate or prosecute any alcohol or drug abuse patient.[facility] Reason for Visit (unrecogniz ed section and [...] DateEnd Date BlaiseJuan A DO PCP - [facility]11/14/11Team MemberRelationshipSpecialtyStart Date End Date Juan A Welsh JavyDO PCP - [facility]11/14/11 Team Status: Inactive Member Role Status [...] Date Juan A Welsh MD [address] [place] [facility] [place] [id number] PCP - GeneralInternal Medicine02/07/24Team MemberRelationshipSpecialtyStart Date End Date Juan A Welsh MD [address] [place] [facility] [place] [id number] PCP - GeneralInternal Medicine02/07/24Team MemberRelationshipSpecialtyStart Date End Date Juan A Welsh DO [address] [place] [address] PCP - GeneralInternal Medicine05/23/19Team MemberRelationshipSpecialtyStart Date End Date Juan A Welsh DO [address] [place] [address] PCP - GeneralInternal Medicine05/23/19Team MemberRelationshipSpecialtyStart Date End Date Juan A Welsh DO [address] [place] [address] PCP - GeneralInternal Medicine05/23/19Team MemberRelationshipSpecialtyStart Date End Date Juan A Welsh DO [address] [place] [address] PCP - GeneralInternal Medicine05/23/19 Team Status: Active [...] Lozano , DOAttending ProviderActiveStart: August 11, 2025 Team Status: Active Member Role/Relationship Status Dates Juan A Welsh DO Primary Care Provider Active Start: August 11, 2025 John Oconnor DOAdmit ProviderActiveStart: August 11, 2025 John Oconnor , DOAttending ProviderActiveStart: August 11, 2025 [...] BE BASED ON THE PRIMARY CLINICAL RECORDS. [employer] provides no warranty or guarantee of the accuracy or completeness of information in this document.
[2025-08-22] MEDS: ATORVASTATIN CALCIUM 10 MG TABLET PO (20:13)
[2025-08-22] MEDS: AMLODIPINE BESYLATE 5 MG TABLET PO (20:14)
[2025-08-22] MEDS: LOSARTAN POTASSIUM 50 MG TABLET PO (20:14)
[2025-08-22] MEDS: DOCUSATE SODIUM 100 MG CAPSULE PO (20:14)
[2025-08-22] MEDS: HYDRALAZINE HCL 10 MG TABLET PO ×2 (20:14→22:12)
[2025-08-22] MEDS: DONEPEZIL HCL 10 MG TABLET PO (22:12)
[2025-08-22] MEDS: INSULIN ASPART 300 UNIT/3 ML PEN SUBQ (22:12)
[2025-08-23] VITALS (12 sets, daily range): BP systolic 138–157; BP diastolic 52–70; PULSE 59–655; TEMP 36.2–36.6; O2SAT 96–98
[2025-08-23] MEDS: HYDRALAZINE HCL 10 MG TABLET PO (05:18)
[2025-08-23 06:38] LABS: Hematocrit 24.1 % (42.0-54.0); Hemoglobin 8.4 g/dL (14.0-18.0); Immature Granulocytes Abs Auto 0.00 10^3/uL (0.00-0.03); Immature Granulocytes Pct Auto 0.0 % (0.0-0.5); Lymphocytes Absolute Auto 0.5 10^3/uL (1.2-3.8); Mean Corpuscular HGB Conc 34.9 g/dL (29.9-35.2); Mean Corpuscular Hemoglobin 34.4 pg (25.9-34.0); Mean Corpuscular Volume 98.8 fL (80.0-94.0); Platelet Count 72 10^3/uL (150-450); Red Blood Count 2.44 10^6/uL (4.70-6.10); White Blood Count 2.7 10^3/uL (4.0-11.0)
[2025-08-23 07:13] LABS: Iron 48.0 ug/dL (65.0-175.0); Percent Iron Saturation 23.1 %; Total Iron Binding Capacity 208.0 ug/dL (250.0-450.0)
[2025-08-23 07:17] LABS: Anion Gap 10.6; Blood Urea Nitrogen 15.0 mg/dL (7.0-18.0); Calcium 8.7 mg/dL (8.5-10.1); Carbon Dioxide 29.9 mmol/L (21.0-32.0); Chloride 107 mmol/L (98-107); Estimated GFR (African America >60 (>=60 mL/min/1.73m^2); Estimated GFR (Non-African Ame >60 (>=60 mL/min/1.73m^2); Glucose 94 mg/dL (74-106); Magnesium 1.7 mg/dL (1.8-2.4); NT Pro B Type Natriuretic Pept 692.0 pg/mL (<=1800.0); Potassium 3.5 mmol/L (3.5-5.1); Sodium 144 mmol/L (136-145)
--- NOTE | 2025-08-23 08:00 | ECG_ITS ---
[facility] Test Date: 2025-08-23 Pat Name: NA GOULD Department: Room: 218 Gender: Male [employer] Delivery System: : 1945 Requested By: [id number] Order Number: [id number] Reading MD: CHADD NOLASCO M.D. Measurements Intervals [place] Rate: 60 P: 50 [place]: 261 QRS: 24 QRSD: 89 T: 64 QT: 435 QTc: 437 Interpretive Statements SINUS RHYTHM WITH FIRST DEGREE AV BLOCK Abnormal ECG Compared to ECG 08/22/2025 14:20:14 No significant changes Electronically Signed On 08-23-2025 6:48:14 EST by CHADD NOLASCO M.D.
[2025-08-23] MEDS: HYDROCHLOROTHIAZIDE 25 MG TABLET PO (10:01)
[2025-08-23] MEDS: ISOSORBIDE MONONITRATE 30 MG TAB.ER.24H PO (10:01)
[2025-08-23] MEDS: CITALOPRAM HYDROBROMIDE 20 MG TABLET PO (10:01)
[2025-08-23] MEDS: MEMANTINE HCL 28 MG CAP XR PO (10:02)
[2025-08-23] MEDS: AMLODIPINE BESYLATE 5 MG TABLET PO (10:02)
[2025-08-23] MEDS: LOSARTAN POTASSIUM 50 MG TABLET PO (10:02)
[2025-08-23] MEDS: ALLOPURINOL 300 MG TABLET PO (10:02)
[2025-08-23] MEDS: DOCUSATE SODIUM 100 MG CAPSULE PO (10:02)
[2025-08-23] MEDS: ASPIRIN 81 MG TABLET.DR PO (10:03)
[2025-08-23 10:36] LABS: Ferritin 76.0 ng/mL (26.0-388.0); Folate 34.60 ng/mL (8.60-58.90)
--- NOTE | 2025-08-23 11:28 | P.DS_ITS ---
DS: Providers Provider Date of admission: 08/22/25 18:45 Primary care physician: Juan A Cox DO Admitting clinician: OUSMANE ARREAGA Attending physician on admission: OUSMANE ARREAGA Attending physician on discharge: OUSMANE ARREAGA Discharging clinician: OUSMANE ARREAGA Anticipated date of discharge: 08/24/25 DS: Diagnosis Discharge Diagnosis (1) Chest pain: (2) Hypertension: DS: Summary Hospital Course Hospital Course: This is a 80-year-old man who was brought to the ER at the [facility] on Sunday afternoon after he had some chest pressure and felt bad after walking out of the bathroom. The ER staff, who know this patient well, advocated for him to be admitted overnight to rule out a cardiac event. The patient did have very high blood pressures, in the 190 systolic region while he was in the emergency room. But he had no more chest pain. Overnight the patient was given low doses of oral hydralazine (10 mg p.o). With this his blood pressure improved from 189/72 when he was in the emergency room to 138/52 when he was sleeping at midnight. The next morning his blood pressures were 157/58 and 151/70. His troponin curve was 10, 8.4, 8.9, 9.9, and 12.6. All of these are well within normal range. Telemetry showed no arrhythmias. Twelve-lead EKG showed no ischemia. With this the patient was found to be suitable for discharge. He has an appointment with his primary care provider in 2 days. I offered to start a new blood pressure medication (I would have started hydrochlorothiazide) but his prefers to follow-up with the primary care physician. An additional issue is his anemia and pancytopenia. With some IV fluids was given in the emergency room his white blood count went from 3.5-2.7. His hemoglobin went from 9.7-8.4. And he runs a low platelets of 91 and then 72. He has a history of colon cancer. Anemia labs are done: His iron is only slightly low at 48. His ferritin is normal at 76. His folic acid is quite normal at 34.6. So the long run he would benefit from additional workup to evaluate why he has been so chronically anemic. Status at Discharge Functional status at discharge: uses cane/walker Overall status at discharge: patient is progressing back to baseline Time Spent with Patient Time attestation: Total time spent providing and/or coordinating discharge services: Time spent: greater than 30 minutes Specific discharge activities: 39 Exam Narrative Exam Narrative: Examination on the last hospital day: Awake. Alert. With a moderate amount of pleasant dementia. Does not have much insight into his symptoms. Cardiac: Regular rate and rhythm. No murmurs to auscultation. Pulmonary: Clear to auscultation throughout. No wheezing. No rhonchi. No crackles. GI: Mild splenomegaly is felt. Bowel sounds are normal to auscultation. Having small smears of light brown to yellow bowel movement without brooke diarrhea. No blood was seen at all. Constitutional Vital Signs, click to edit/add: Last Vital Signs Temp 97.9 F 08/23/25 07:41 Pulse 66 08/23/25 10:00 Resp 20 08/23/25 07:41 BP 151/70 H 08/23/25 07:41 Pulse Ox 97 08/23/25 07:41 O2 Del Method Room Air 08/23/25 07:41 DS: Data Data Completed and Pending Labs on day of discharge: Labs from last 24 hours 08/23/25 08/22/25 08/22/25 05:56 23:00 22:12 WBC 2.7 L RBC 2.44 L Hgb 8.4 L Hct 24.1 L MCV 98.8 H MCH 34.4 H MCHC 34.9 RDW 14.6 Plt Count 72 L MPV 10.5 Neut % (Auto) 71.7 Lymph % (Auto) 19.4 L Bailey % (Auto) 5.9 Eos % (Auto) 2.6 Baso % (Auto) 0.4 Neut # (Auto) 2.0 Lymph # (Auto) 0.5 L Bailey # (Auto) 0.2 L Eos # (Auto) 0.1 Baso # (Auto) 0.0 Abs Immat Gran (auto) 0.00 Seg Neuts % (Manual) Lymphocytes % (Manual) Monocytes % (Manual) Eosinophils % (Manual) Basophils % (Manual) Imm/Tot Granulo (auto) 0.0 Neutrophils # (Manual) Lymphocytes # (Manual) Monocytes # (Manual) Eosinophils # (Manual) Basophils # (Manual) PT INR Sodium 144 Potassium 3.5 Chloride 107 Carbon Dioxide 29.9 Anion Gap 10.6 BUN 15.0 Creatinine 1.01 Est GFR ( Amer) >60 Est GFR (Non-Af Amer) >60 BUN/Creatinine Ratio 14.9 Glucose 94 Estimat Average Glucose 82 Hemoglobin A1c 4.5 Calcium 8.7 Magnesium 1.7 L Iron 48.0 L TIBC 208.0 L % Saturation 23.1 Ferritin 76.0 Troponin I High Sens 12.6 9.9 NT-Pro-B Natriuret Pep 692.0 Folate 34.60 Urine Color Urine Clarity Urine pH Ur Specific [place] Urine Protein Urine Glucose (UA) Urine Ketones Urine Occult Blood Urine Nitrite Urine Bilirubin Urine Urobilinogen Ur Leukocyte Esterase Urine RBC Urine WBC Ur Squamous Epith Cells Urine Crystals Urine Bacteria Urine Casts Urine Mucus POC Glucose 234 H 08/22/25 08/22/25 08/22/25 20:00 17:15 14:54 WBC 3.5 L RBC 2.77 L Hgb 9.7 L Hct 27.1 L MCV 97.8 H MCH 35.0 H MCHC 35.8 H RDW 14.6 Plt Count 91 L MPV 10.4 Neut % (Auto) Lymph % (Auto) Bailey % (Auto) Eos % (Auto) Baso % (Auto) Neut # (Auto) Lymph # (Auto) Bailey # (Auto) Eos # (Auto) Baso # (Auto) Abs Immat Gran (auto) Seg Neuts % (Manual) 78.0 H Lymphocytes % (Manual) 18.0 L Monocytes % (Manual) 2.0 Eosinophils % (Manual) 2.0 Basophils % (Manual) 0.0 L Imm/Tot Granulo (auto) Neutrophils # (Manual) 2.73 Lymphocytes # (Manual) 0.63 L Monocytes # (Manual) 0.07 L Eosinophils # (Manual) 0.07 Basophils # (Manual) 0.00 PT 11.3 INR 1.07 Sodium 142 Potassium 3.8 Chloride 103 Carbon Dioxide 33.7 H Anion Gap 9.1 BUN 17.0 Creatinine 0.94 Est GFR ( Amer) >60 Est GFR (Non-Af Amer) >60 BUN/Creatinine Ratio 18.1 Glucose 90 Estimat Average Glucose Hemoglobin A1c Calcium 9.0 Magnesium Iron TIBC % Saturation Ferritin Troponin I High Sens 8.9 8.4 10.0 NT-Pro-B Natriuret Pep Folate Urine Color Lt. yellow Urine Clarity Clear Urine pH 8.0 Ur Specific [place] 1.015 Urine Protein 100 A Urine Glucose (UA) Negative Urine Ketones Negative Urine Occult Blood Negative Urine Nitrite Negative Urine Bilirubin Negative Urine Urobilinogen 0.2 Ur Leukocyte Esterase Negative Urine RBC None seen Urine WBC None seen Ur Squamous Epith Cells Rare Urine Crystals None seen Urine Bacteria None seen Urine Casts None seen Urine Mucus None seen POC Glucose Discharge Plan Discharge Disposition: Home, Self-Care Condition: Fair Discharge Medications: Continued allopurinol 300 mg tablet 300 mg PO QDAY amlodipine 5 mg tablet 5 mg PO QDAY citalopram 20 mg tablet 20 mg PO QDAY donepezil 10 mg tablet 10 mg PO BEDTIME insulin asp prt-insulin aspart [Novolog Mix 70-30FlexPen U-100] 100 unit/mL (70-30) insulin pen See Rx Instructions SUBCUT .COMPLEX Rx Instructions: 26 u qam, 10 u with supper subcutaneously; isosorbide mononitrate 30 mg tablet extended release 24 hr 30 mg PO QDAY losartan 50 mg tablet 50 mg PO BID memantine 28 mg capsule,sprinkle,ER 24hr 28 mg PO Q24H simvastatin 20 mg tablet 20 mg PO QDAY oxcarbazepine 300 mg tablet 900 mg PO BID aspirin 81 mg capsule 81 mg PO DAILY Print Language: Tanzanian Patient Instructions: Chest Pain (DC) Forms: Portal Instructions Follow Up Appointments: Call on SundayAug 24 Dr. Cox's office [phone] to schedule hospital follow up appointment Discharge Date/Time: 08/23/25 12:11
--- NOTE | 2025-08-24 08:51 | PC.NURSE ---
Follow up appt with Dr. Cox on 08/25 @ 2pm
--- NOTE | 2025-08-24 09:08 | SWNOTE1 ---
VIKI received a call from Lisandra at [facility] and pt is current with them. VIKI advised that pt was admitted to [facility] on 08/22 and discharged home on 08/23. VIKI faxed face sheet, ED note, H&P, and DC summary to [facility].
[2025-08-24 10:08] LABS: Vitamin B12 432 pg/mL (232-1245)
--- NOTE | 2025-08-24 12:58 | CM.DCFOLLOWU ---
Person spoke with: Pt's How are you feeling? He is doing well How is your pain? No pain Did you understand your discharge instructions? Yes Do you have any questions about your discharge instructions? No Were you given any prescriptions at discharge? No Were you able to get your prescriptions filled? N/A Do you understand how to take your medications as ordered? Yes Do you have any questions about your follow up appointment and do you plan to keep your follow up appointment? It's scheduled tomorrow with Dr. Cox, pt will go to appt Is there anything else that you would like to discuss? No Questions/Comments/Concerns/Other:
== END 2025-08-23 12:11 | disposition home or self-care (01) ==
LOC: ER 17:51 → MS 18:48
PROVIDERS: Physician Assistant; Admitting Provider Hospitalist; Emergency Provider Emergency Medicine; PCP Internal Medicine; Visit Provider Hospitalist
DX: R07.9 Chest pain, unspecified (principal); I10 Essential (primary) hypertension; F03.A0 Unspecified dementia, mild, without behavioral disturbance, psychotic disturbance, mood disturbance, and anxiety; Z95.1 Presence of aortocoronary bypass graft; Z86.711 Personal history of pulmonary embolism; E11.9 Type 2 diabetes mellitus without complications; D61.818 Other pancytopenia; Z79.899 Other long term (current) drug therapy; Z87.891 Personal history of nicotine dependence; Z85.038 Personal history of other malignant neoplasm of large intestine; Z79.4 Long term (current) use of insulin; E78.5 Hyperlipidemia, unspecified
CPT/HCPCS: 36415; 71045; 80048; 81001; 82607; 82728; 82746; 82948; 83036; 83540; 83550; 83735; 83880; 84484; 85007; 85025; 85027; 85610; 93005; 99285; G0378